=== PATIENT | male | born 1965 | race Two or more races ===

== ENCOUNTER 2020-06-17 14:31 | Emergency (ER) | payer OTHER, SELFPAY ==
[2020-06-17 15:05] VITALS: BP 129/66; PULSE 95; RESP 16; TEMP 37.3; O2SAT 97; BMI 34.8
--- NOTE | 2020-06-17 15:28 | ED.GENADULT ---
HPI - General Adult General Chief complaint: General Medical Stated complaint: sob, body aches, Source: patient Mode of arrival: ambulatory Limitations: no limitations History of Present Illness HPI narrative: Patient presents to ED for cough, chills, night sweats, and body aches since yesterday. Patient states no one at home having similar symptoms. States patient states no recent travel across state lines or the country. Onset (ago): day(s) (since yesterday) Related Data Allergies Allergy/AdvReac Type Severity Reaction Status Date / Time No Known Allergies Allergy Verified 06/17/20 15:09 [No Known Allergies*] Review of Systems Review of Systems: Patient denies any chest pain, shortness of breath, neck stiffness, photophobia, nausea, vomiting, diarrhea, abdominal pain, weakness in extremities, slurred speech, flank pain, dysuria, or hematuria Yes all other systems are reviewed and are negative [facility] Past Medical History Medical History (Updated 06/17/20 @ 15:40 by VINCE Almaguer) Arthritis Diabetes Social History Social History Alcohol intake: current Alcohol intake frequency: holidays/special occasions only Smoking Status: Current every day smoker Smoked in Last 30 Days: Yes Use of substances other than those prescribed or required for medical reasons: Yes Substance Use Type: Marijuana Advance Directives: No Advance Directives Information Provided: Yes Physical Exam Vital Signs: Vital Signs: Vital Signs Temp Pulse Resp BP Pulse Ox 06/17/20 15:05 99.1 F 95 16 129/66 97 Body Mass Index 34.8 Const: General: cooperative, healthy appearing, comfortable, no acute distress, well developed, alert and awake HENMT: Head: Yes normal to inspection Eyes: General: appearance normal, both eyes and all related structures Neck: Neck: Yes normal visual inspection, Yes full ROM, Yes no lymphadenopathy, Yes no meningeal signs, No positive Brudzinski's sign and No positive Kernig's sign Chest: Chest palpation & inspection: normal inspection of the chest and normal palpation of entire chest wall Resp: Effort & Inspection: normal respiratory effort, able to speak in complete sentences, no audible wheezes, no cough, no grunting, not labored, no nasal flaring, not tachypneic and no tripod positioning Auscultation: clear to auscultation bilaterally, no crackles, no rales, no rhonchi and no wheezes Cardio: Jugular venous distension: no JVD Heart sounds: S1 normal heart sound present and S2 normal heart sound present GI: Inspection: Yes normal to inspection, No abdominal wall ecchymosis and No Abdominal wall edema Palpation (GI): Soft to palpation, not firm, nontender, no guarding and not rigid Percussion: Yes normal to percussion Auscultation: normal bowel sounds Neuro: General: no meningeal signs Course Course Course Narrative: History physical exam indicate viral syndrome. Vital signs are stable. Patient not in distress. Patient is swabbed for COVID-19 virus and educated on self- Reevaluation(s) Reevaluation #1: Patient is stable. Time: 15:37 Medical Decision Making MDM Narrative Medical decision making narrative: Viral syndrome Discharge Plan Discharge Clinical Impression: Viral syndrome Patient Disposition: Home, Self-Care Instructions: Viral Syndrome (ED) Additional Instructions: return to the ED for any chest pain shortness of breath, coughing up blood, weakness, intractable fever, or any other concerning symptoms. recommend 14 days self-isolation if COVID test come back positive. Follow-up with your PCP Stand Alone Forms: Work/School Release Interventions: ED Discharge Assessment Last Done: 06/17/20 15:53 Discharge Date/Time: 06/17/20 15:55 Print Language: Hungarian
== END 2020-06-17 15:55 | disposition home or self-care (01) ==
PROVIDERS: Physician Assistant; Emergency Provider Emergency Medicine
DX: B34.9 Viral infection, unspecified (principal); Z20.828 Contact with and (suspected) exposure to other viral communicable diseases; E11.9 Type 2 diabetes mellitus without complications; I10 Essential (primary) hypertension; F17.200 Nicotine dependence, unspecified, uncomplicated; F10.10 Alcohol abuse, uncomplicated
CPT/HCPCS: 87635; 99283; 99284

== ENCOUNTER 2020-06-21 04:46 | Emergency (ER) | payer OTHER, SELFPAY ==
[2020-06-21 05:38] VITALS: BP 167/86; PULSE 80; RESP 16; TEMP 36.9; O2SAT 98; BMI 30.9
[2020-06-21 05:52] VITALS: BP 164/84; PULSE 84; RESP 16; O2SAT 98
--- NOTE | 2020-06-21 05:53 | PC.NURSE ---
Pt to room with c/o right sided abd pain which radiates into right lower back pain. Pt states It feels like kidney stones . Pt arrives A&OX3, skin w/d. respirations easy, n/l. Pt chg into gown and awaiting MD's eval.
--- NOTE | 2020-06-21 06:04 | CT_ITS ---
EXAMINATION: CT ABDOMEN AND PELVIS WITHOUT CONTRAST CLINICAL INFORMATION: Right-sided stone COMPARISON: 10/31/2019 TECHNIQUE: Multidetector volumetric imaging was performed from the superior aspect of the liver through the pubic symphysis. Sagittal and coronal reformatted images were obtained on the technologist's workstation. This CT examination was performed using dose optimization techniques as appropriate, variously including the following: *Automated exposure control *Adjustment of mA and/or kV according to patient size (this includes techniques or standardized protocols for targeted exams where dose is matched to indication/reason for exam; i.e. extremities or head) *Use of iterative reconstruction technique DLP: 717 mGy-cm FINDINGS: LUNG BASES: The visualized lung bases are unremarkable. Coronary artery calcifications are present. LIVER, GALLBLADDER, AND BILIARY TREE: The liver demonstrates hypoattenuation suspicious for steatosis. No biliary ductal dilatation is present. Patient is status post cholecystectomy. PANCREAS: Unremarkable. SPLEEN: Calcified granuloma noted. ADRENAL GLANDS: Unremarkable. KIDNEYS AND URETERS: There is a distal right ureteral calculus measuring up to 8 mm with mild dilation of the medial upstream ureter though no significant renal pelvic dilation. There is a 2 mm calculus in the right upper pole. No left-sided hydronephrosis or ureteral calculus. There is a left lower pole calculus measuring 5 mm. Medial right renal cyst again noted. BLADDER: Unremarkable. GASTROINTESTINAL TRACT: The small and large bowel are unremarkable. The appendix is unremarkable. No free fluid or free air is seen. ABDOMINAL WALL: Bilateral fat-containing inguinal hernias, right larger than left. LYMPH NODES: Normal. VASCULAR: Scattered atherosclerotic calcifications. PELVIC VISCERA: The prostate gland is enlarged, measuring 5.7 cm in transverse diameter. 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 CT/CT abdomen pelvis wo con IMPRESSION: 1. Distal right ureteral calculus measuring 8 mm. There is mild dilation of the immediate upstream ureter though no significant renal pelvic dilation. 2. Bilateral renal calculi as described above. 3. Coronary artery calcifications. Correlation with cardiac risk factors is recommended. 4. Enlarged prostate gland.
--- NOTE | 2020-06-21 06:06 | ED.BACK ---
HPI - Back Pain/Injury General Chief Complaint: Back Pain/Injury Stated Complaint: kidney stone? Time Seen by Provider: 06/21/20 06:04 History of Present Illness HPI Narrative: Patient is a 55-year-old man with a history of kidney stones in the past. Presents today with having right-sided abdominal and flank pain. The pain is sharp in nature. No bowel urinary incontinence. No diarrhea. Positive nausea. Pain is excruciating when it comes. It is on and off. Not associated with movement. No chest pain. No shortness of breath no diaphoresis. No coughing no upper respiratory symptoms. Patient is from home. MD elicited complaint: back pain Related Data Previous Rx's Medication Instructions Recorded ibuprofen 400 mg PO Q6H PRN #20 tab 06/21/20 ondansetron 4 mg PO TID PRN 5 Days #10 tab 06/21/20 oxycodone-acetaminophen [Percocet] 1 tab PO TID PRN #9 tab 06/21/20 tamsulosin [Flomax] 0.4 mg PO BEDTIME #7 cap 06/21/20 Allergies Allergy/AdvReac Type Severity Reaction Status Date / Time No Known Allergies Allergy Verified 06/17/20 15:09 [No Known Allergies*] Review of Systems Review of Systems: Constitutional: No Weight loss, No Fever, No Chills, No Night Sweats, No Fatigue, No Malaise ENT/Mouth: No Hearing loss, No Ear Pain, No Nasal Congestion, No Sinus Pain, No Hoarseness, No sore throat, No Rhinorrhea, No Swallowing Difficulty Eyes: No Eye Pain, No Swelling, No Redness, No Foreign Body, No Discharge, No Vision Changes Cardiovascular: No Chest Pain, No SOB, No Dyspnea on Exertion, No Orthopnea, No Edema, No Palpitations Respiratory: No Cough, No Sputum, No Wheezing, No Smoke Exposure, No Dyspnea Gastrointestinal: No Nausea, No Vomiting, No Diarrhea, No Constipation, No abdominal Pain, No Hematochezia, No Melena Genitourinary: no irregular bleeding, No Dysuria, No Urinary Frequency, No Hematuria, No Urinary Incontinence, No Urgency, No Flank Pain, No Urinary Flow Changes, No Hesitancy Musculoskeletal: No joint pain, No Myalgias, No Joint Swelling Skin: No Skin Lesions, No rash Neuro: No Weakness, No Numbness, No Paresthesias, No Loss of Consciousness, No Dizziness, No Headache Psych: No Anxiety/Panic, No Depression, No SI/HI/AH/VH, No Social Issues, Heme/Lymph: No Bruising, No Bleeding,No Lymphadenopathy Endocrine: No Polyuria, No Polydipsia, No Temperature Intolerance [facility] Past Medical History Medical History Arthritis Diabetes Social History Social History Alcohol intake: current Alcohol intake frequency: holidays/special occasions only Smoking Status: Current every day smoker Substance Use Type: Marijuana Advance Directives: No Advance Directives Information Provided: No Physical Exam Vital Signs: Vital Signs: Vital Signs Temp Pulse Resp BP Pulse Ox 06/21/20 06:35 78 16 160/78 H 98 06/21/20 05:52 84 16 164/84 H 98 06/21/20 05:38 98.4 F 80 16 167/86 H 98 Body Mass Index 30.9 Appearance: Alert. Oriented X3. No acute distress. Eyes: Pupils equal, round and reactive to light. ENT: Pharynx normal. Neck: Normal inspection. Neck supple. No lymph nodes noted. No crepitus CVS: Normal heart rate and rhythm. Pulses normal. Normal S1 and S2 Respiratory: No respiratory distress. Breath sounds normal. No Wheezing. No rales Abdomen: Soft and nontender. No rigidity. No distention. good BS x4 Skin: Skin warm and dry. Normal skin color. Normal skin turgor. Extremities: No lower extremity edema. Neurovascular intact to all extremities. No Lacerations. No Rash Neuro: Oriented X 3. No motor deficit. No sensory deficit. Moving all extermities. No slurred speech Course Reevaluation(s) Time: 06:09 Time: 06:09 MDM - Back Pain/Injury MDM Narrative Medical decision making narrative: patient pain control with medications. CT scan positive for 8 mm stone at the UVJ. Will discharge patient home currently in stable condition. Patient's urine is not infected creatinine is normal. In stable condition. Lab Data Result diagrams: 06/21/20 06:10 06/21/20 06:10 Labs: Lab Results 10/25/20 10/25/20 10/25/20 Range/Units 06:10 06:10 06:10 WBC 10.7 (4.8-10.8) X10*3/uL RBC 5.47 (4.60-5.80) X10*6/uL Hgb 15.5 (14.0-18.0) g/dl Hct 46.6 (42-52) % MCV 85.2 (80-98) fL MCH 28.3 (27.0-33.0) pg MCHC 33.3 (31.0-36.0) g/dl RDW 13.2 (11.0-16.0) % Plt Count 212 (160-400) X10*3/uL MPV 10.8 (9.4-12.4) fL Immature Gran % (Auto) 0.4 (0.0-0.4) % Neut % (Auto) 72.0 (45-73) % Lymph % (Auto) 15.4 L (20-40) % [place] % (Auto) 8.0 (2-11) % Eos % (Auto) 3.5 (0-4) % Baso % (Auto) 0.7 (0-2) % Lymph # (Auto) 1.6 (1.2-4.9) X10*3/uL [place] # (Auto) 0.9 (0.1-1.2) X10*3/uL Eos # (Auto) 0.4 (0.0-0.4) X10*3/uL Baso # (Auto) 0.1 (0.0-0.2) X10*3/uL Abs Immat Gran (auto) 0.04 H (0.00-0.03) X10*3/uL Absolute Neuts (auto) 7.7 (2.0-8.3) X10*3/uL Absolute Nucleated RBC 0.000 (0.0-0.012) X10*3/uL Nucleated RBC % (auto) 0.0 (0.0-0.2) /100WBC Sodium 132 L (135-145) mmol/L Potassium 4.4 (3.3-5.1) mmol/l Chloride 98 (96-108) mmol/L Carbon Dioxide 22 (22-29) mmol/L Anion Gap 16 (12-20) BUN 13 (9-16) mg/dL Creatinine 0.84 (0.5-1.4) mg/dL Estim Creat Clear Calc 114.4 Estimated GFR > 60 Random Glucose 321 H (60-115) mg/dL Calcium 8.6 (8.4-10.2) mg/dL Total Bilirubin 0.4 (0.0-1.0) mg/dL Direct Bilirubin < 0.2 (0.0-0.5) mg/dL AST 48 H (5-37) U/L ALT 72 H (0-40) U/L Alkaline Phosphatase 118 H (39-117) U/L Total Protein 7.5 (6.5-8.0) g/dL Albumin 3.9 (3.5-5.0) g/dL Lipase 829 H (8-78) U/L Urine Color YELLOW Urine Appearance CLEAR Urine pH 6.0 (5.0-8.0) Ur Specific [place] 1.015 (1.005-1.025) Urine Protein NEG (NEG-TRACE) MG/DL Urine Glucose (UA) >=1000 H (NEG) MG/DL Urine Ketones NEG (NEG) MG/DL Urine Blood NEG (NEG) Urine Nitrite NEG (NEG) Ur Leukocyte Esterase NEG (NEG) Urine RBC 1-4 (0) /HPF Urine WBC 1-4 (0-4) /HPF Ur Squamous Epith Cells 1+ /LPF Urine Bacteria 1+ /LPF Discharge Plan Discharge Clinical Impression: Renal colic Patient Disposition: Home, Self-Care Instructions: Renal Colic (ED) Prescriptions: New ibuprofen 400 mg tablet 400 mg PO Q6H PRN (Reason: pain) Qty: 20 RF: 0 ondansetron 4 mg tablet,disintegrating 4 mg PO TID PRN (Reason: nausea and vomiting) 5 Days Qty: 10 RF: 0 oxycodone-acetaminophen [Percocet] 5-325 mg tablet 1 tab PO TID PRN (Reason: pain) Qty: 9 RF: 0 tamsulosin [Flomax] 0.4 mg capsule 0.4 mg PO BEDTIME Qty: 7 RF: 0 Referrals: Erich Erickson MD [Physician] - 2 days
[2020-06-21 06:16] LABS: Basophils Absolute Auto 0.1 X10*3/uL (0.0-0.2); Basophils Percent Auto 0.7 % (0-2); Eosinophils Absolute Auto 0.4 X10*3/uL (0.0-0.4); Eosinophils Percent Auto 3.5 % (0-4); Hematocrit 46.6 % (42-52); Hemoglobin 15.5 g/dl (14.0-18.0); Imm Gran Abs Auto 0.04 X10*3/uL (0.00-0.03); Imm Gran Pct Auto 0.4 % (0.0-0.4); Lymphocytes Absolute Auto 1.6 X10*3/uL (1.2-4.9); Lymphocytes Percent Auto 15.4 % (20-40); MANUAL DIFF FLAG NO; Mean Corpuscular HGB Conc 33.3 g/dl (31.0-36.0); Mean Corpuscular Hemoglobin 28.3 pg (27.0-33.0); Mean Corpuscular Volume 85.2 fL (80-98); Mean Platelet Volume 10.8 fL (9.4-12.4); Monocytes Absolute Auto 0.9 X10*3/uL (0.1-1.2); Neutrophils Absolute Auto 7.7 X10*3/uL (2.0-8.3); Platelet Count 212 X10*3/uL (160-400); Red Blood Count 5.47 X10*6/uL (4.60-5.80); Red Cell Distribution Width 13.2 % (11.0-16.0); White Blood Count 10.7 X10*3/uL (4.8-10.8)
[2020-06-21] MEDS: Ketorolac Tromethamine 30 MG/ML VIAL IVPUSH (06:33)
[2020-06-21] MEDS: 0.9 % Sodium Chloride 1,000 ML 999 ML IVCONT (06:33)
[2020-06-21 06:34] LABS: Glucose Urine UA >=1000 MG/DL (NEG); Leukocyte Esterase Urine NEG (NEG); Nitrite Urine NEG (NEG); Specific Gravity - Urine 1.015 (1.005-1.025); Urine Blood NEG (NEG); Urine Ketones NEG (NEG); Urine Protein NEG (NEG-TRACE)
[2020-06-21 06:35] VITALS: BP 160/78; PULSE 78; RESP 16; O2SAT 98
[2020-06-21 06:35] LABS: Appearance Urine CLEAR; Color Urine YELLOW
[2020-06-21 06:46] LABS: Bacteria Urine 1+ /LPF; Squamous Epithelial Cell Urine 1+ /LPF
[2020-06-21 06:48] LABS: Alanine Aminotransferase 72 U/L (0-40); Albumin Level 3.9 g/dL (3.5-5.0); Alkaline Phosphatase 118 U/L (39-117); Anion Gap 16 (12-20); Aspartate Amino Transferase 48 U/L (5-37); Bilirubin Direct < 0.2 mg/dL (0.0-0.5); Bilirubin Total 0.4 mg/dL (0.0-1.0); Blood Urea Nitrogen 13 mg/dL (9-16); Calcium 8.6 mg/dL (8.4-10.2); Carbon Dioxide 22 mmol/L (22-29); Chloride 98 mmol/L (96-108); Creatinine Clr Calc Pharmacy 114.4; Estimated Glomerular Filt Rate > 60; Glucose Random 321 mg/dL (60-115); Lipase 829 U/L (8-78); Potassium 4.4 mmol/l (3.3-5.1); Sodium 132 mmol/L (135-145); Total Protein 7.5 g/dL (6.5-8.0)
== END 2020-06-21 07:34 | disposition home or self-care (01) ==
PROVIDERS: Emergency Provider Emergency Medicine Emergency Medical Services
DX: N23 Unspecified renal colic (principal); F17.200 Nicotine dependence, unspecified, uncomplicated; Z71.6 Tobacco abuse counseling; F12.90 Cannabis use, unspecified, uncomplicated; Z79.899 Other long term (current) drug therapy
CPT/HCPCS: 36415; 74176; 80048; 80076; 81001; 83690; 85025; 96361; 96374; 99284; J1885

== ENCOUNTER 2020-06-21 20:52 | Inpatient (IN) | payer OTHER, SELFPAY ==
[2020-06-21 20:54] VITALS: BP 199/95; PULSE 83; RESP 19; TEMP 37.2; O2SAT 100; BMI 34.8
[2020-06-21 21:20] VITALS: BP 176/96; PULSE 80; RESP 14; TEMP 36.5; O2SAT 98
--- NOTE | 2020-06-21 22:03 | ED.ABDPAIN ---
HPI - Abdominal Pain General Chief Complaint: Abdominal Pain Stated Complaint: FLANK PAIN Time Seen by Provider: 06/21/20 21:59 Source: patient Mode of arrival: ambulatory Limitations: no limitations History of Present Illness HPI narrative: 55 years old male with history of hypertension, diabetes presented this morning with right flank pain, patient had a CT which showed 8 mm right ureteric stone, patient was sent home, patient returned because pain under poor control. Related Data Home Medications Medication Instructions Recorded Confirmed Humalog KwikPen Insulin 15 - 20 units SUBCUT DIRECTED 06/21/20 06/21/20 gabapentin 600 mg PO TID 06/21/20 06/21/20 insulin glargine [Lantus Solostar 10 unit SUBCUT QPM 06/21/20 06/21/20 U-100 Insulin] lisinopril 10 mg PO DAILY 06/21/20 06/21/20 metformin 1,000 mg PO BID 06/21/20 06/21/20 Previous Rx's Medication Instructions Recorded ibuprofen 400 mg PO Q6H PRN #20 tab 06/21/20 Allergies Allergy/AdvReac Type Severity Reaction Status Date / Time No Known Allergies Allergy Verified 06/21/20 21:00 [No Known Allergies*] Review of Systems Review of Systems All other systems are reviewed and are negative Constitutional: Reports as per HPI and Reports no additional constitutional complaints Eyes: Reports as per HPI and Reports no additional eye complaints Reports system reviewed and no additional complaints, except as documented Cardiovascular: Reports as per HPI and Reports no additional cardiovascular complaints Respiratory: Reports as per HPI and Reports no additional respiratory complaints Gastrointestinal: Reports as per HPI and Reports no additional gastrointestinal complaints Genitourinary: Reports no additional female genitourinary complaints Musculoskeletal: Reports no additional musculoskeletal complaints Skin/Breast: Reports system reviewed and no additional complaints, except as docu Psychiatric: Reports no additional psychiatric complaints Endocrine: Reports no additional endocrine complaints Hematologic/Lymphatic: Reports no additional hematologic/lymphatic complaints Allergic/Immunologic: Reports no additional allergic/immunologic complaints Reports system reviewed and no additional complaints, except as documented and Reports Abnormal speech present Physical Exam Vital Signs: Vital Signs: Vital Signs Temp Pulse Resp BP Pulse Ox 06/21/20 22:04 81 14 174/89 H 98 06/21/20 21:20 97.7 F 80 14 176/96 H 98 06/21/20 20:54 99 F 83 19 199/95 H 100 Body Mass Index 34.8 vital signs have been reviewed as normal and appeared to be correct. Hypertensive. Heart rate normal. Respiration rate normal. Temperature normal. Oxygen saturation normal. Appearance: Alert. Oriented X3. No acute distress. Head: Normal external exam. Normocephalic. Atraumatic. No Mix signs noted. No raccoon eyes noted Eyes: PERRLA. EOMI. Conjunctiva and sclera normal. Eyelids normal. ENT: EAC normal. TM's Normal. Pharynx normal. Uvula midline. Moist mucous membranes. No trismus noted. No drooling noted. No muffled voice noted. Neck: Normal inspection. Neck supple. FROM. No adenopathy. Thyroid Normal. No meningeal signs. No neck mass noted. CVS: Normal heart rate and rhythm. Heart sound normal. No murmurs noted. Pulses normal throughout. Respiratory: No respiratory distress. Painless inspiration. Breath sounds normal. No wheezes/rales/rhonchi noted. Chest nontender. No accessory muscle usage noted or decreased air movement noted. Abdomen: Soft and mild tenderness on the right side of the abdomen, positive CVA tenderness on the right side.Bowel sounds normal in all 4 quadrants. No distention noted. No organomegaly noted. No visible injury noted. Back: No CVA tenderness. Full range of motion noted. Skin: Skin warm and dry. Normal skin color. Normal skin turgor. No rashes/lesions/lacerations noted. Extremities: No lower extremity edema. Extremities exhibit normal range of motion. Extremities nontender. Neuro: Oriented X 3. No motor deficit. No sensory deficit. Reflexes normal. Course Reevaluation(s) Reevaluation #1: 55-year-old male with hypertension and diabetes return back for right flank pain due to 8 mm right ureteric stone, patient now complained of chest pain, will get EKG and troponin. And re-evaluate. Time: 22:33 MDM - Abdominal Pain MDM Narrative Medical decision making narrative: 55-year-old male with history of hypertension / diabetes presented with right kidney stone size of 8 mm ( sizable stone not likely to pass on its own ). Patient failed outpatient pain control return for better pain control. The case discussed with Dr. Erickson from Urology who recommended to admit the patient to medical service and he will consult. While the patient been evaluated in the emergency department for the kidney stone he stated that he had some vague chest pain, EKG was checked and also troponin. Lab Data Result diagrams: 06/21/20 22:38 06/21/20 22:38 Labs: Lab Results 06/21/20 06/21/20 06/21/20 Range/Units 22:38 22:38 22:38 WBC 11.0 H (4.8-10.8) X10*3/uL RBC 5.09 (4.60-5.80) X10*6/uL Hgb 14.4 (14.0-18.0) g/dl Hct 43.4 (42-52) % MCV 85.3 (80-98) fL MCH 28.3 (27.0-33.0) pg MCHC 33.2 (31.0-36.0) g/dl RDW 13.2 (11.0-16.0) % Plt Count 206 (160-400) X10*3/uL MPV 10.9 (9.4-12.4) fL Immature Gran % (Auto) 0.5 H (0.0-0.4) % Neut % (Auto) 62.5 (45-73) % Lymph % (Auto) 22.2 (20-40) % [place] % (Auto) 9.6 (2-11) % Eos % (Auto) 4.6 H (0-4) % Baso % (Auto) 0.6 (0-2) % Lymph # (Auto) 2.4 (1.2-4.9) X10*3/uL [place] # (Auto) 1.1 (0.1-1.2) X10*3/uL Eos # (Auto) 0.5 H (0.0-0.4) X10*3/uL Baso # (Auto) 0.1 (0.0-0.2) X10*3/uL Abs Immat Gran (auto) 0.05 H (0.00-0.03) X10*3/uL Absolute Neuts (auto) 6.9 (2.0-8.3) X10*3/uL Absolute Nucleated RBC 0.000 (0.0-0.012) X10*3/uL Nucleated RBC % (auto) 0.0 (0.0-0.2) /100WBC Sodium 134 L (135-145) mmol/L Potassium 4.0 (3.3-5.1) mmol/l Chloride 102 (96-108) mmol/L Carbon Dioxide 21 L (22-29) mmol/L Anion Gap 15 (12-20) BUN 13 (9-16) mg/dL Creatinine 0.79 (0.5-1.4) mg/dL Estim Creat Clear Calc 128.8 Estimated GFR > 60 Random Glucose 265 H (60-115) mg/dL Calcium 8.3 L (8.4-10.2) mg/dL Total Bilirubin 0.3 (0.0-1.0) mg/dL Direct Bilirubin < 0.2 (0.0-0.5) mg/dL AST 33 (5-37) U/L ALT 60 H (0-40) U/L Alkaline Phosphatase 113 (39-117) U/L Troponin I High Sens 6.6 (<3.5-35.0) ng/L Total Protein 6.9 (6.5-8.0) g/dL Albumin 3.7 (3.5-5.0) g/dL Lipase 1274 H (8-78) U/L Imaging Data CT scan - abdomen: Radiologist's impression: . Distal right ureteral calculus measuring 8 mm. There is mild dilation of the immediate upstream ureter though no significant renal pelvic dilation. 2. Bilateral renal calculi as described above. 3. Coronary artery calcifications. Correlation with cardiac risk factors is recommended. 4. Enlarged prostate gland. Discharge Plan Discharge Clinical Impression: Renal colic, Calculus of distal right ureter, Atypical chest pain Patient Disposition: Admitted As Inpatient [facility] Past Medical History Medical History Arthritis Diabetes Social History Social History Alcohol intake: current Alcohol intake frequency: holidays/special occasions only Smoking Status: Current every day smoker Use of substances other than those prescribed or required for medical reasons: No Substance Use Type: Marijuana Advance Directives: No Advance Directives Information Provided: Yes
[2020-06-21 22:04] VITALS: BP 174/89; PULSE 81; RESP 14; O2SAT 98
--- NOTE | 2020-06-21 22:30 | ECG_ITS ---
Test Reason : CHEST PAIN Blood Pressure : / mmHG Vent. Rate : 076 BPM Atrial Rate : 076 BPM P-R Int : 180 ms QRS Dur : 154 ms QT Int : 422 ms P-R-T Axes : 025 -57 018 degrees QTc Int : 474 ms Normal sinus rhythm Right bundle branch block Left anterior fascicular block Bifascicular block Voltage criteria for left ventricular hypertrophy Abnormal ECG No significant changes seen Referred By: Barbara Geller Electronically Signed By:MODESTA CORREA MD
[2020-06-21 22:43] LABS: MANUAL DIFF FLAG NO
[2020-06-21 22:44] LABS: Basophils Absolute Auto 0.1 X10*3/uL (0.0-0.2); Basophils Percent Auto 0.6 % (0-2); Eosinophils Absolute Auto 0.5 X10*3/uL (0.0-0.4); Eosinophils Percent Auto 4.6 % (0-4); Hematocrit 43.4 % (42-52); Hemoglobin 14.4 g/dl (14.0-18.0); Imm Gran Abs Auto 0.05 X10*3/uL (0.00-0.03); Imm Gran Pct Auto 0.5 % (0.0-0.4); Lymphocytes Absolute Auto 2.4 X10*3/uL (1.2-4.9); Lymphocytes Percent Auto 22.2 % (20-40); Mean Corpuscular HGB Conc 33.2 g/dl (31.0-36.0); Mean Corpuscular Hemoglobin 28.3 pg (27.0-33.0); Mean Corpuscular Volume 85.3 fL (80-98); Mean Platelet Volume 10.9 fL (9.4-12.4); Monocytes Absolute Auto 1.1 X10*3/uL (0.1-1.2); Monocytes Percent Auto 9.6 % (2-11); Neutrophils Absolute Auto 6.9 X10*3/uL (2.0-8.3); Neutrophils Percent Auto 62.5 % (45-73); Platelet Count 206 X10*3/uL (160-400); Red Blood Count 5.09 X10*6/uL (4.60-5.80); Red Cell Distribution Width 13.2 % (11.0-16.0)
[2020-06-21] MEDS: 0.9 % Sodium Chloride 500 ML 1000 ML IV (22:56)
[2020-06-21] MEDS: Morphine Sulfate 2 MG/ML CARTRIDGE 1 MG IVPUSH (22:59)
[2020-06-21] MEDS: Ketorolac Tromethamine 15 MG/ML VIAL IV (22:59)
--- NOTE | 2020-06-21 23:03 | PC.NURSE ---
patient a&ox3, pt c/o chest pain to hospitalist, iv inserted, labs drawn, ekg performed, patient placed on bedside monitoring manager- pt nsr 70s, will continue to monitor.
--- NOTE | 2020-06-21 23:04 | PC.NURSE ---
pt medicated for pain per order
[2020-06-21 23:14] LABS: Alanine Aminotransferase 60 U/L (0-40); Albumin Level 3.7 g/dL (3.5-5.0); Alkaline Phosphatase 113 U/L (39-117); Anion Gap 15 (12-20); Aspartate Amino Transferase 33 U/L (5-37); Bilirubin Direct < 0.2 mg/dL (0.0-0.5); Bilirubin Total 0.3 mg/dL (0.0-1.0); Blood Urea Nitrogen 13 mg/dL (9-16); Calcium 8.3 mg/dL (8.4-10.2); Carbon Dioxide 21 mmol/L (22-29); Chloride 102 mmol/L (96-108); Creatinine Clr Calc Pharmacy 128.8; Estimated Glomerular Filt Rate > 60; Glucose Random 265 mg/dL (60-115); Sodium 134 mmol/L (135-145); Total Protein 6.9 g/dL (6.5-8.0)
[2020-06-21 23:28] LABS: Troponin-I High Sensitivity 6.6 ng/L (<3.5-35.0)
[2020-06-21 23:32] LABS: Lipase 1274 U/L (8-78)
[2020-06-22] VITALS (21 sets, daily range): BP systolic 107–188; BP diastolic 51–90; PULSE 64–88; RESP 14–19; TEMP 36–36.8; O2SAT 69–99; BMI 34.8
--- NOTE | 2020-06-22 | US_ITS ---
EXAMINATION: US ABDOMEN LIMITED CLINICAL INFORMATION: Pancreatitis. COMPARISON: CT abdomen and pelvis noncontrast 06/21/2020 TECHNIQUE: Real-time imaging of the right upper quadrant abdominal viscera. FINDINGS: PANCREAS: The pancreas parenchymal echogenicity is coarse and decreased which may suggest pancreatic edema. The overall size is normal and there is no visible pancreatic ductal distention or retroperitoneal effusion. There is no hyperemia on color Doppler. The splenic vein is patent and flow is towards the liver. LIVER: The liver is smooth in contour and upper limits of normal size measuring 18.5 cm in length. There is increased hepatic parenchymal echogenicity consistent with hepatic steatosis. There is no focal hepatic parenchymal lesion or intrahepatic ductal dilatation. GALLBLADDER: Prior cholecystectomy. COMMON BILE DUCT: Normal in caliber measuring 0.6 cm in diameter. No visible ductal calculus. RIGHT KIDNEY: Normal. No hydronephrosis. No renal calculi or focal parenchymal lesions. The kidney measures 12.6 cm in maximum dimension. FREE FLUID: No ascites right upper quadrant. US/US abdomen limited IMPRESSION: 1. Coarse hypoechoic pancreas which may suggest parenchymal edema. Overall size normal. 2. No pancreatic ductal distention or retroperitoneal effusion. 3. Prior cholecystectomy. No ductal dilatation. 4. Hepatic steatosis.
--- NOTE | 2020-06-22 02:10 | PC.NURSE ---
ADMITTED WITH RIGHT RENAL CALCULUS.MADE NPO WITH URO CONSULT TO SEE.IV FLUIDS STARTED ORDERED.MED WITH MS 4MG IV FOR RIGHT FLANK PAIN WITH EFFECT.NO N/V.ABD ULTRASOUND AND LABS FOR AM.ORIENTED TO UNIT AND PLAN OF CARE.
[2020-06-22] MEDS: 0.9 % Sodium Chloride Flush 3 ML SYRINGE IVFLUSH ×3 (02:28→14:56)
[2020-06-22] MEDS: 0.9 % Sodium Chloride 1,000 ML 100 ML IVCONT (02:28)
[2020-06-22] MEDS: Morphine Sulfate 4 MG/ML CARTRIDGE IVPUSH ×3 (02:30→17:44)
--- NOTE | 2020-06-22 04:16 | P.HPIM_ITS ---
History of Present Illness Date of Service: 06/21/20 Chief Complaint: abdominal pain [place]-speaking. History is obtained with the help of an order processing clerk. this is a 55-year-old male with past medical history of kidney stones, diabetes, coronary artery disease, hypertension who presents to the hospital with complaints of epigastric as well as right upper quadrant and and right flank pain.. Patient reports that his symptoms started couple days prior to presentation , pain is 10/10, radiating from the front to the back, no fever no chills. Patient has a previous history of kidney stone with similar presentation. Patient reports that he was in the ED earlier in the day with this pain, CT of the abdomen showed an 8 mm stone at the UVJ, patient's pain was controlled and he was sent home. He reports that his pain continued well as home unbearable and that is why he returned. He denies any urinary symptoms including no frequency urgency or dysuria. No nausea or vomiting. patient is also complaining of bilateral chest pain that is pressure, nonradiating, 7/10, worse with deep inspiration, occurs at rest, lasts about 30 minutes. This pain is intermittent. shortness of breath, headache or change in vision. No week tingling. No other complaints. Review of system negative otherwise. on arrival to the ED patient hemodynamically stable with no significant abnormal vitals labs are significant for WBC count of 11,000, And lipase of 1274 CT scan done earlier in the day and his initial presentation showed positive for 8 mm stone at the UVJ Review of Systems Review of Systems: Yes all other systems are reviewed and are negative [facility] Medical History (Updated 06/22/20 @ 04:54 by Susan Cast MD) Arthritis Diabetes Hypertension Surgical History Hx of heart artery stent Social History Household Members: Spouse and Children Housing: House Do you presently have visiting nurse or other home services: No Alcohol intake: current Alcohol intake frequency: holidays/special occasions only Smoking Status: Current every day smoker Tobacco Type: Cigarette Smoked in Last 30 Days: Yes Patient Interested in Nicotine Replacement: Yes Use of substances other than those prescribed or required for medical reasons: No Substance Use Type: Marijuana Have you been hit, kicked, punched, or otherwise hurt by someone within the past year? If so, by whom?: No Do you feel safe in your current relationship?: Yes Is there a partner from a previous relationship who is making you feel unsafe now?: No Are you made to feel afraid or neglected: No Advance Directives: No Advance Directives Information Provided: Yes Do you have thoughts of harming others: None Recently lost weight without trying: No Meds Allergies Allergy/AdvReac Type Severity Reaction Status Date / Time No Known Allergies Allergy Verified 06/21/20 21:00 [No Known Allergies*] Home Medications Medication Instructions Recorded Confirmed Type Humalog KwikPen Insulin 15 - 20 units SUBCUT DIRECTED 06/21/20 06/21/20 History gabapentin 600 mg PO TID 06/21/20 06/21/20 History insulin glargine [Lantus Solostar 10 unit SUBCUT QPM 06/21/20 06/21/20 History U-100 Insulin] lisinopril 10 mg PO DAILY 06/21/20 06/21/20 History metformin 1,000 mg PO BID 06/21/20 06/21/20 History Physical Exam Vital Signs and Narrative: Vital Signs: Last Vital Signs Temp 97.0 F 06/22/20 03:18 Pulse 73 06/22/20 03:18 Resp 19 06/22/20 03:18 BP 178/80 H 06/22/20 03:18 Pulse Ox 99 06/22/20 03:18 Body Mass Index 34.8 Const: General: cooperative and no acute distress Orientation/consciousness: patient oriented x3 Eyes: General: appearance normal, both eyes and all related structures Pupils: Equal, round and reactive pupils present Resp: Effort & Inspection: normal respiratory effort and able to speak in complete sentences Auscultation: clear to auscultation bilaterally Cardio: Rate: regular rate Rhythm: regular rhythm GI: Palpation (GI): Soft to palpation Auscultation: normal bowel sounds Skin: General skin exam: no rashes or lesions noted Neuro: General: patient oriented x3 Cranial nerves: Yes Equal, round and reactive pupils present Cognition (Neuro): normal cognition Extrem: General: Yes normal to inspection and Yes no pedal edema Results Labs Labs: Laboratory Tests 06/21/20 06/21/20 06/21/20 22:38 22:38 22:38 WBC 11.0 H RBC 5.09 Hgb 14.4 Hct 43.4 MCV 85.3 MCH 28.3 MCHC 33.2 RDW 13.2 Plt Count 206 MPV 10.9 Immature Gran % (Auto) 0.5 H Neut % (Auto) 62.5 Lymph % (Auto) 22.2 Morris % (Auto) 9.6 Eos % (Auto) 4.6 H Baso % (Auto) 0.6 Lymph # (Auto) 2.4 Morris # (Auto) 1.1 Eos # (Auto) 0.5 H Baso # (Auto) 0.1 Abs Immat Gran (auto) 0.05 H Absolute Neuts (auto) 6.9 Absolute Nucleated RBC 0.000 Nucleated RBC % (auto) 0.0 Sodium 134 L Potassium 4.0 Chloride 102 Carbon Dioxide 21 L Anion Gap 15 BUN 13 Creatinine 0.79 Estim Creat Clear Calc 128.8 Estimated GFR > 60 Random Glucose 265 H Calcium 8.3 L Total Bilirubin 0.3 Direct Bilirubin < 0.2 AST 33 ALT 60 H Alkaline Phosphatase 113 Troponin I High Sens 6.6 Total Protein 6.9 Albumin 3.7 Lipase 1274 H Assessment and Plan (1) Pancreatitis: Status: Acute (2) Calculus of distal right ureter: Status: Acute (3) Atypical chest pain: Status: Acute (4) Hypertension: Status: Acute (5) Diabetes: Status: Acute this is a 55-year-old male with past medical history as mentioned above who presents to the hospital with complaints of abdominal pain and right flank pain. CT of the abdomen which was done earlier on ED presentation showed 8 mm of renal calculi # Abdominal pain - pancreatitis versus renal calculi - patient has epigastric pain radiating to the back as well as renal calculi evidence on CT scan. - I was unable to locate the CT done in the ED on the earlier admission but per ED physician's note CT scan is positive for an 8 mm calculi at the UVJ plan: - IV fluids, NPO - urology consult for the renal calculi # pancreatitis - typical abdominal pain with elevation of lipase - patient denies any alcohol abuse plan: - Will obtain right upper quadrant abdominal ultrasound - NPO, aggressive IV fluids - will obtain triglyceride level # renal calculi - 8 mm renal calculi evident on CT done on earlier presentation - urology consulted # Atypical chest pain - high sensitivity troponin negative, EKG shows no evidence of ACS Plan: - Will monitor DVT prophylaxis: Lovenox
[2020-06-22 06:09] LABS: MANUAL DIFF FLAG NO
[2020-06-22 06:13] LABS: Basophils Absolute Auto 0.1 X10*3/uL (0.0-0.2); Basophils Percent Auto 0.8 % (0-2); Eosinophils Absolute Auto 0.5 X10*3/uL (0.0-0.4); Eosinophils Percent Auto 5.6 % (0-4); Hematocrit 41.8 % (42-52); Hemoglobin 13.6 g/dl (14.0-18.0); Imm Gran Abs Auto 0.03 X10*3/uL (0.00-0.03); Imm Gran Pct Auto 0.3 % (0.0-0.4); Lymphocytes Absolute Auto 2.5 X10*3/uL (1.2-4.9); Lymphocytes Percent Auto 27.2 % (20-40); Mean Corpuscular HGB Conc 32.5 g/dl (31.0-36.0); Mean Corpuscular Hemoglobin 28.2 pg (27.0-33.0); Mean Corpuscular Volume 86.5 fL (80-98); Mean Platelet Volume 11.2 fL (9.4-12.4); Monocytes Absolute Auto 0.8 X10*3/uL (0.1-1.2); Monocytes Percent Auto 9.1 % (2-11); Neutrophils Absolute Auto 5.3 X10*3/uL (2.0-8.3); Platelet Count 204 X10*3/uL (160-400); Red Blood Count 4.83 X10*6/uL (4.60-5.80); Red Cell Distribution Width 13.4 % (11.0-16.0); White Blood Count 9.3 X10*3/uL (4.8-10.8)
[2020-06-22 06:33] LABS: Triglycerides 193 mg/dL
[2020-06-22 06:41] LABS: Anion Gap 13 (12-20); Blood Urea Nitrogen 10 mg/dL (9-16); Carbon Dioxide 23 mmol/L (22-29); Chloride 102 mmol/L (96-108); Creatinine Clr Calc Pharmacy 132.2; Estimated Glomerular Filt Rate > 60; Glucose Random 346 mg/dL (60-115); Sodium 134 mmol/L (135-145)
[2020-06-22 07:03] LABS: Glucose, Whole Blood 277 mg/dL (60-115)
--- NOTE | 2020-06-22 09:02 | MHC.CM.PN ---
pt lives alone, he reports being independent in his care. he works a job. pt denies the need for vna . pt does have family that live in the area and can help him if he needs it. this will include a ride home at dc. dc plan is home no svcs.
--- NOTE | 2020-06-22 10:09 | HO.ANESPROP2 ---
HPI - Anesthesia Eval Consult details Narrative: 55yo male patient. Here for cysto,retro,ureteroscopy,laser lithotripsy,stent Right ureter PMFSH Past Medical History Medical History (Updated 06/22/20 @ 11:01 by Ludivina Prado) Alcohol abuse Arthritis CAD (coronary artery disease) Diabetes Hypertension Increased BMI Family History Family history of problems with anesthesia: No Surgical History Surgical History (Updated 06/22/20 @ 10:26 by Ludivina Prado) Hx of heart artery stent Status post laparoscopic cholecystectomy History of Problems with Anesthesia: No Social History Social History (Updated 06/22/20 @ 10:37 by Ludivina Prado) Household Members: Spouse and Children Housing: House Do you presently have visiting nurse or other home services: No Alcohol intake: current Alcohol intake frequency: holidays/special occasions only Smoking Status: Current every day smoker Tobacco Type: Cigarette Smoked in Last 30 Days: Yes Patient Interested in Nicotine Replacement: Yes Use of substances other than those prescribed or required for medical reasons: No Substance Use Type: Marijuana Substance Use Type Other:: Patient denies ever using marijuana Currently Displaying Signs/Symptoms of Drug Intoxication Withdrawal: No Have you been hit, kicked, punched, or otherwise hurt by someone within the past year? If so, by whom?: No Do you feel safe in your current relationship?: Yes Is there a partner from a previous relationship who is making you feel unsafe now?: No Are you made to feel afraid or neglected: No Advance Directives: No Advance Directives Information Provided: Yes Do you have thoughts of harming others: None Recently lost weight without trying: No service: No Current occupational status: employed Meds Allergies Allergy/AdvReac Type Severity Reaction Status Date / Time No Known Allergies Allergy Verified 06/21/20 21:00 [No Known Allergies*] Home Medications Medication Instructions Recorded Confirmed Type Humalog KwikPen Insulin 15 - 20 units SUBCUT DIRECTED 06/21/20 06/21/20 History gabapentin 600 mg PO TID 06/21/20 06/21/20 History insulin glargine [Lantus Solostar 10 unit SUBCUT QPM 06/21/20 06/21/20 History U-100 Insulin] lisinopril 10 mg PO DAILY 06/21/20 06/21/20 History metformin 1,000 mg PO BID 06/21/20 06/21/20 History Exam Exam Date and Time: June 22, 2020 1009 Height,Weight and Vital Signs: Height 5 ft 9 in Weight 107.048 kg Last Vital Signs Temp 96.9 F 06/22/20 10:08 Pulse 72 06/22/20 10:08 Resp 16 06/22/20 10:08 BP 170/84 H 06/22/20 10:08 Pulse Ox 99 06/22/20 10:08 Pertinent Lab Results Pertinent Lab Results: Laboratory Tests 06/21/20 06/21/20 06/21/20 22:38 22:38 22:38 WBC 11.0 H RBC 5.09 Hgb 14.4 Hct 43.4 MCV 85.3 MCH 28.3 MCHC 33.2 RDW 13.2 Plt Count 206 MPV 10.9 Immature Gran % (Auto) 0.5 H Neut % (Auto) 62.5 Lymph % (Auto) 22.2 [place] % (Auto) 9.6 Eos % (Auto) 4.6 H Baso % (Auto) 0.6 Lymph # (Auto) 2.4 [place] # (Auto) 1.1 Eos # (Auto) 0.5 H Baso # (Auto) 0.1 Abs Immat Gran (auto) 0.05 H Absolute Neuts (auto) 6.9 Absolute Nucleated RBC 0.000 Nucleated RBC % (auto) 0.0 Sodium 134 L Potassium 4.0 Chloride 102 Carbon Dioxide 21 L Anion Gap 15 BUN 13 Creatinine 0.79 Estim Creat Clear Calc 128.8 Estimated GFR > 60 POC Glucose Random Glucose 265 H Calcium 8.3 L Total Bilirubin 0.3 Direct Bilirubin < 0.2 AST 33 ALT 60 H Alkaline Phosphatase 113 Troponin I High Sens 6.6 Total Protein 6.9 Albumin 3.7 Triglycerides Lipase 1274 H 06/22/20 06/22/20 06/22/20 05:26 05:26 05:26 WBC 9.3 RBC 4.83 Hgb 13.6 L Hct 41.8 L MCV 86.5 MCH 28.2 MCHC 32.5 RDW 13.4 Plt Count 204 MPV 11.2 Immature Gran % (Auto) 0.3 Neut % (Auto) 57.0 Lymph % (Auto) 27.2 [place] % (Auto) 9.1 Eos % (Auto) 5.6 H Baso % (Auto) 0.8 Lymph # (Auto) 2.5 [place] # (Auto) 0.8 Eos # (Auto) 0.5 H Baso # (Auto) 0.1 Abs Immat Gran (auto) 0.03 Absolute Neuts (auto) 5.3 Absolute Nucleated RBC 0.000 Nucleated RBC % (auto) 0.0 Sodium 134 L Potassium 4.0 Chloride 102 Carbon Dioxide 23 Anion Gap 13 BUN 10 Creatinine 0.77 Estim Creat Clear Calc 132.2 Estimated GFR > 60 POC Glucose Random Glucose 346 H Calcium 8.0 L Total Bilirubin Direct Bilirubin AST ALT Alkaline Phosphatase Troponin I High Sens Total Protein Albumin Triglycerides 193 Lipase 06/22/20 07:00 WBC RBC Hgb Hct MCV MCH MCHC RDW Plt Count MPV Immature Gran % (Auto) Neut % (Auto) Lymph % (Auto) [place] % (Auto) Eos % (Auto) Baso % (Auto) Lymph # (Auto) [place] # (Auto) Eos # (Auto) Baso # (Auto) Abs Immat Gran (auto) Absolute Neuts (auto) Absolute Nucleated RBC Nucleated RBC % (auto) Sodium Potassium Chloride Carbon Dioxide Anion Gap BUN Creatinine Estim Creat Clear Calc Estimated GFR POC Glucose 277 H Random Glucose Calcium Total Bilirubin Direct Bilirubin AST ALT Alkaline Phosphatase Troponin I High Sens Total Protein Albumin Triglycerides Lipase POC 224 Airway Mallampati Class: II TM Dist: >3cm Neck ROM: Full Denture: Upper and Lower Heart: RRR Lungs: CTAB Assessment and Plan Assessment Anesthesia Assessment: Anesthesia Plan Discussed and Chart Reviewed Final Anesthetic Review NPO: Yes ASA Class: III Final Preanesthetic Review: No Changes in Pt Med Stat, Meds/Allgs Chart Reviewed, Consent Obtained/Reviewed and Anes Risks/Benef Reviewed Patient Risk: Intermediate Procedure Risk: Low Anesthetic Plan Anesthetic Plan: GA Disposition: Standard PACU
[2020-06-22] MEDS: Lactated Ringers 1,000 ML 100 ML IVCONT (10:17)
[2020-06-22] MEDS: levoFLOXacin/D5W 500 MG/100 ML PIGGYBACK 100 MG IV (10:17)
--- NOTE | 2020-06-22 10:26 | PC.NURSE ---
translator/interpreter by bedside with anesthesia
--- NOTE | 2020-06-22 10:57 | MHC.SHP ---
Pre-Procedural Eval Section A The patient is an INPATIENT: Yes Changes since office visit: No Cold of Flu in the past 2 weeks, No New Medical Problems, No Changes in Medication and No Patient answered all questions The History & Physical has been completed within 30 days and I have reviewed it.: Yes Section B Chief Complaint: renal calculus Allergies: Allergies Allergy/AdvReac Type Severity Reaction Status Date / Time No Known Allergies Allergy Verified 06/21/20 21:00 [No Known Allergies*] Plan Patient has been examined and remains a candidate for the planned procedure
--- NOTE | 2020-06-22 11:01 | FL_ITS ---
EXAMINATION: XR FLUOROSCOPY WITH IMAGES CLINICAL INFORMATION: Renal calculi COMPARISON: CT abdomen and pelvis noncontrast 06/21/2020 TECHNIQUE: Fluoroscopy performed by Dr. Erich Erickson. Fluoroscopy time: 0.45 minutes Total dose: 11.54 mGy Images: 2 FINDINGS: The fluoroscopic spot images demonstrate right ureteral stent in position. There is some contrast in the right renal collecting system upper pole calyx and interpolar region. FL/FL guidance in OR IMPRESSION: Fluoroscopy for urologic procedure.
[2020-06-22 11:03] LABS: Glucose, Whole Blood 224 mg/dL (60-115)
--- NOTE | 2020-06-22 12:25 | PM.OP ---
Brief Operative Note Date of procedure: 06/22/20 Pre-op diagnosis: right distal ureteric stone Post-op diagnosis: same Procedure: right retrograde, ureteroscopy, laser lithotripsy, stent placment Implants: right stent placement Surgeon: Erich Erickson MD Anesthesia: GLMA Estimated blood loss (mL): 0 Pathology: other (stones) Condition: stable Disposition: same day
--- NOTE | 2020-06-22 12:31 | P.OP_ITS ---
Operative Note Operative Note Narrative: PreOperative Diagnosis: right distal ureteric stone 8mm Post Operative Diagnosis:same Procedure: - 1. right cystoscopy, retrograde - 2. dilatation of ureteric orifice under fluoroscopy - 3. ureteroscopy, laser lithotripsy, stone basketing - 4. stent placement Surgeon: Dr rEich Erickson Anesthesia: General Indications for procedure: 55 yr male with distal stone through ER with non controlled pain Procedure: After informed consent was verified patient was brought to the operating placed in supine position. Anesthesia was administered per protocol. Patient was placed in modified dorsal lithotomy position and prepped and draped in a sterile fashion. Safety pause time-out and side of surgery confirmed. Antibiotics confirmed. Twenty-one Stateless cystoscope placed per urethra. No abnormality noted in the anterior or posterior urethra. Both ureteric orifices position. Bladder observed to be normal. Ureteric catheter placed into right ureteric opening. Retrograde examination shows filling defect in the distal portion of the ureter. Sensor guidewire susan renetta. Ureteric catheter and cystoscope removed. Keegan dilator placed under fluoroscopy to dilate ureteric orifice opening. Semi rigid ureteral scope placed alongside the wire. Stone encountered in distal portion of ureter. Approximately 8 mm. 365 mm laser fiber used to break stone. The stone fragments removed using basket. This was done without difficulty. semi rigid ureteral scope was removed. The cystoscope was back loaded and a 6 Stateless by 26 cm stent was placed without difficulty and good coil seen in the renal pelvis and in the bladder. Bladder was emptied in stone fragments removed. These will be sent for analysis. He tolerated procedure well was extubated in operating transferred in stable condition to the recovery area. Specimens renal stone Drains 6 Stateless by 26 cm stent right side this is the end of the dictation by Dr. Erich Erickson
[2020-06-22] MEDS: oxyCODONE HCl Immed Release 5 MG TABLET PO ×2 (13:30→21:06)
[2020-06-22] MEDS: Ketorolac Tromethamine 15 MG/ML VIAL IV (14:54)
--- NOTE | 2020-06-22 15:44 | PM.UROPN ---
Subjective Subjective Interval history: consult night dictated twice due to areas in computer program was not in chart Stone has been completed He can be discharged today and follow up next week Recommend discharge with Pyridium, tramadol, alpha-bryan Physical Exam Vital Signs: Vital Signs: Vital Signs Temp Pulse Resp BP Pulse Ox 06/22/20 14:45 97.2 F 69 18 150/85 H 69 L 06/22/20 13:45 66 16 140/65 H 98 06/22/20 13:35 71 18 131/60 98 06/22/20 13:20 97.8 F 74 16 133/59 L 99 06/22/20 13:05 75 18 140/73 H 97 06/22/20 12:50 72 16 107/51 L 94 06/22/20 12:45 71 14 117/61 95 06/22/20 12:40 74 14 117/64 96 06/22/20 12:35 97.8 F 76 16 125/64 95 06/22/20 11:24 96 06/22/20 10:08 96.9 F 72 16 170/84 H 99 06/22/20 08:00 97.5 F 75 18 145/72 H 97 06/22/20 06:29 18 06/22/20 03:18 97.0 F 73 19 178/80 H 99 06/22/20 02:30 18 06/22/20 02:02 97.6 F 75 19 166/76 H 99 06/22/20 00:57 81 15 188/90 H 97 06/21/20 22:04 81 14 174/89 H 98 06/21/20 21:20 97.7 F 80 14 176/96 H 98 06/21/20 20:54 99 F 83 19 199/95 H 100 Body Mass Index 34.8 Const: General: cooperative, healthy appearing, comfortable and no acute distress Nutritional Appearance: average body habitus Orientation/consciousness: oriented to person, oriented to place and oriented to time Eyes: General: appearance normal, both eyes and all related structures Chest: Chest palpation & inspection: normal inspection of the chest Resp: Effort & Inspection: normal respiratory effort Cardio: Rate: regular rate GI: Inspection: Yes normal to inspection Skin: Hair: normal Neuro: General: oriented to person, oriented to place and oriented to time Extrem: General: Yes normal to inspection Progress Note: A&P Assessment and plan (1) Calculus of distal right ureter: Problem details: right retrograde, ureteroscopy, laser lithotripsy, stent placement - completed Status: Acute Assessment and Plan: f/u next week for stent removal Fall Risk Details Current Medications: Current Medications Generic Name Dose Route Start Last Admin Trade Name Freq PRN Reason Stop Dose Admin Acetaminophen 650 mg 06/22/20 01:06 Acetaminophen 325 Mg Tablet PO Q6H PRN Pain, Mild (Pain Scale 1-3) Docusate Sodium 100 mg 06/22/20 01:06 Docusate Sodium 100 Mg Capsule PO DAILY PRN Constipation Enoxaparin Sodium 40 mg 06/22/20 09:00 06/22/20 11:13 Enoxaparin Sodium 40 Mg/0.4 Ml Syringe SUBCUT Not Given Q24H [facility] Fentanyl 25 mcg 06/22/20 11:23 Fentanyl Citrate/Pf 100 Mcg/2 Ml Vial IVPUSH Q5M PRN Pain, Moderate (Pain Scale 4-6 Fentanyl 50 mcg 06/22/20 11:23 Fentanyl Citrate/Pf 100 Mcg/2 Ml Vial IVPUSH Q5M PRN Pain, Severe (Pain Scale 7-10) Sodium Chloride 1,000 mls @ 150 mls/hr 06/22/20 01:06 06/22/20 14:56 Ns IVCONT Infused .Q6H40M SHELLY Infusion Lactated Ringer's 1,000 mls @ 100 mls/hr 06/22/20 10:15 06/22/20 10:17 Lr IVCONT 100 mls/hr .Q10H SHELLY Administration Insulin Human Lispro 0 unit 06/22/20 07:30 06/22/20 14:39 Insulin Lispro 100 Unit/Ml 3 Ml Vial SUBCUT Not Given QIDACHS [facility] Protocol Ketorolac Tromethamine 15 mg 06/21/20 22:15 06/22/20 14:54 Ketorolac Tromethamine 15 Mg/Ml Vial IV 15 mg Q6H SHELLY Administration Morphine Sulfate 4 mg 06/22/20 01:06 06/22/20 06:29 Morphine Sulfate 4 Mg/Ml Cartridge IVPUSH 4 mg Q4H PRN Administration Pain, Severe (Pain Scale 7-10) Ondansetron HCl 4 mg 06/22/20 01:06 Ondansetron Hcl 4 Mg/2 Ml Vial IVPUSH Q8H PRN Nausea and Vomiting Oxycodone HCl 5 mg 06/22/20 01:06 Oxycodone Hcl Immed Release 5 Mg Tablet PO Q6H PRN Pain, Severe (Pain Scale 7-10) Oxycodone HCl 5 mg 06/22/20 12:28 Oxycodone Hcl Immed Release 5 Mg Tablet PO Q4H PRN [facility] Consult 1 each 06/21/20 22:06 Consult Rx Perform Med Rec MISCELLANE ONCE PRN Consult order Sodium Chloride 3 ml 06/22/20 01:06 06/22/20 14:56 0.9 % Sodium Chloride Flush 3 Ml Syringe IVFLUSH 3 ml QSHIFT SHELLY Administration Time Spent With Patient Time: Total time spent is greater than 50% in coordination of care (as documented) at patient's floor/unit and/or counseling patient: Time with patient: less than 15 minutes
--- NOTE | 2020-06-22 16:03 | P.PNIM_ITS ---
Subjective Subjective Date of Service: 06/22/20 Interval History: Patient seen and examined at bedside patient was reporting right flank pain Cardiovascular Cardiovascular: Denies dyspnea Respiratory Respiratory: Denies dyspnea Gastrointestinal Gastrointestinal: Reports abdominal pain and Reports vomiting Physical Exam Vital Signs: Vital Signs: Vital Signs Temp Pulse Resp BP Pulse Ox 06/22/20 15:57 96.8 F 69 16 160/87 H 99 06/22/20 14:45 97.2 F 69 18 150/85 H 69 L 06/22/20 13:45 66 16 140/65 H 98 06/22/20 13:35 71 18 131/60 98 06/22/20 13:20 97.8 F 74 16 133/59 L 99 06/22/20 13:05 75 18 140/73 H 97 06/22/20 12:50 72 16 107/51 L 94 06/22/20 12:45 71 14 117/61 95 06/22/20 12:40 74 14 117/64 96 06/22/20 12:35 97.8 F 76 16 125/64 95 06/22/20 11:24 96 06/22/20 10:08 96.9 F 72 16 170/84 H 99 06/22/20 08:00 97.5 F 75 18 145/72 H 97 06/22/20 06:29 18 06/22/20 03:18 97.0 F 73 19 178/80 H 99 06/22/20 02:30 18 06/22/20 02:02 97.6 F 75 19 166/76 H 99 06/22/20 00:57 81 15 188/90 H 97 06/21/20 22:04 81 14 174/89 H 98 06/21/20 21:20 97.7 F 80 14 176/96 H 98 06/21/20 20:54 99 F 83 19 199/95 H 100 Body Mass Index 34.8 Const: General: cooperative and no acute distress Orientation/consciousness: patient oriented x3 Eyes: General: appearance normal, both eyes and all related structures Pupils: Equal, round and reactive pupils present Resp: Effort & Inspection: normal respiratory effort and able to speak in complete sentences Auscultation: clear to auscultation bilaterally Cardio: Rate: regular rate Rhythm: regular rhythm GI: Palpation (GI): Soft to palpation and Other GI palpation findings present ( right flank tenderness) Auscultation: normal bowel sounds Skin: General skin exam: no rashes or lesions noted Neuro: General: patient oriented x3 Cranial nerves: Yes Equal, round and reactive pupils present Cognition (Neuro): normal cognition Extrem: General: Yes normal to inspection and Yes no pedal edema Objective Data Current Medications Generic Name Dose Route Start Last Admin Trade Name Freq PRN Reason Stop Dose Admin Acetaminophen 650 mg 06/22/20 01:06 Acetaminophen 325 Mg Tablet PO Q6H PRN Pain, Mild (Pain Scale 1-3) Docusate Sodium 100 mg 06/22/20 01:06 Docusate Sodium 100 Mg Capsule PO DAILY PRN Constipation Enoxaparin Sodium 40 mg 06/22/20 09:00 06/22/20 11:13 Enoxaparin Sodium 40 Mg/0.4 Ml Syringe SUBCUT Not Given Q24H [facility] Fentanyl 25 mcg 06/22/20 11:23 Fentanyl Citrate/Pf 100 Mcg/2 Ml Vial IVPUSH Q5M PRN Pain, Moderate (Pain Scale 4-6 Fentanyl 50 mcg 06/22/20 11:23 Fentanyl Citrate/Pf 100 Mcg/2 Ml Vial IVPUSH Q5M PRN Pain, Severe (Pain Scale 7-10) Sodium Chloride 1,000 mls @ 150 mls/hr 06/22/20 01:06 06/22/20 14:56 Ns IVCONT Infused .Q6H40M SHELLY Infusion Lactated Ringer's 1,000 mls @ 100 mls/hr 06/22/20 10:15 06/22/20 10:17 Lr IVCONT 100 mls/hr .Q10H SHELLY Administration Insulin Human Lispro 0 unit 06/22/20 07:30 06/22/20 14:39 Insulin Lispro 100 Unit/Ml 3 Ml Vial SUBCUT Not Given QIDACHS [facility] Protocol Ketorolac Tromethamine 15 mg 06/21/20 22:15 06/22/20 14:54 Ketorolac Tromethamine 15 Mg/Ml Vial IV 15 mg Q6H SHELLY Administration Morphine Sulfate 4 mg 06/22/20 01:06 06/22/20 06:29 Morphine Sulfate 4 Mg/Ml Cartridge IVPUSH 4 mg Q4H PRN Administration Pain, Severe (Pain Scale 7-10) Ondansetron HCl 4 mg 06/22/20 01:06 Ondansetron Hcl 4 Mg/2 Ml Vial IVPUSH Q8H PRN Nausea and Vomiting Oxycodone HCl 5 mg 06/22/20 01:06 Oxycodone Hcl Immed Release 5 Mg Tablet PO Q6H PRN Pain, Severe (Pain Scale 7-10) Oxycodone HCl 5 mg 06/22/20 12:28 Oxycodone Hcl Immed Release 5 Mg Tablet PO Q4H PRN [facility] Consult 1 each 06/21/20 22:06 Consult Rx Perform Med Rec MISCELLANE ONCE PRN Consult order Sodium Chloride 3 ml 06/22/20 01:06 06/22/20 14:56 0.9 % Sodium Chloride Flush 3 Ml Syringe IVFLUSH 3 ml QSHIFT SHELLY Administration Labs CBC & Chem 7: 06/22/20 05:26 06/22/20 05:26 Assessment and Plan (1) Pancreatitis: Status: Acute (2) Calculus of distal right ureter: Problem details: right retrograde, ureteroscopy, laser lithotripsy, stent placement - completed Status: Acute (3) Atypical chest pain: Status: Acute (4) Hypertension: Status: Acute (5) Diabetes: Status: Acute Assessment and Plan: 55-year-old male with past medical history as mentioned above who presents to the hospital with complaints of abdominal pain and right flank pain. CT of the abdomen which was done earlier on ED presentation showed 8 mm of renal calculi Right-sided abdominal pain and flank pain likely secondary to ureteral stone CT abdomen shows 8 mm right ureteral stone urology consulted patient underwent cystoscopy with lithotripsy and stent placement continue IV fluids continue IV pain medication Elevated lipase with abdominal pain most on right side and right flank ct abdomen shows normal pancreas although was without contrast ?pancreatitis continue supportive measures continue IV fluid chest pain resolved Hiigh sensitivity troponin negative, EKG shows no evidence of ACS DVT prophylaxis: Lovenox
[2020-06-22 17:20] LABS: Glucose, Whole Blood 192 mg/dL (60-115)
[2020-06-22] MEDS: Insulin Lispro 100 UNIT/ML 3 ML VIAL SUBCUT ×2 (17:41→21:07)
[2020-06-22] MEDS: 0.9 % Sodium Chloride 1,000 ML 150 ML IVCONT ×2 (17:42→20:53)
[2020-06-22 21:07] LABS: Glucose, Whole Blood 221 mg/dL (60-115)
[2020-06-23] VITALS (9 sets, daily range): BP systolic 133–188; BP diastolic 69–95; PULSE 66–84; RESP 17–19; TEMP 36.4–36.8; O2SAT 98–100
[2020-06-23] MEDS: 0.9 % Sodium Chloride 1,000 ML 150 ML IVCONT (04:40)
[2020-06-23] MEDS: Morphine Sulfate 4 MG/ML CARTRIDGE IVPUSH ×2 (04:41→12:52)
[2020-06-23 07:20] LABS: Anion Gap 14 (12-20); Blood Urea Nitrogen 9 mg/dL (9-16); Carbon Dioxide 23 mmol/L (22-29); Chloride 104 mmol/L (96-108); Creatinine Clr Calc Pharmacy 143.3; Estimated Glomerular Filt Rate > 60; Glucose Random 158 mg/dL (60-115); Sodium 137 mmol/L (135-145)
[2020-06-23 07:31] LABS: Lipase 187 U/L (8-78)
[2020-06-23 07:53] LABS: Glucose, Whole Blood 187 mg/dL (60-115)
[2020-06-23] MEDS: Enoxaparin Sodium 40 MG/0.4 ML SYRINGE SUBCUT (08:12)
[2020-06-23] MEDS: 0.9 % Sodium Chloride Flush 3 ML SYRINGE IVFLUSH ×3 (08:12→21:27)
[2020-06-23] MEDS: Insulin Lispro 100 UNIT/ML 3 ML VIAL SUBCUT ×4 (08:12→21:26)
--- NOTE | 2020-06-23 08:28 | HO.POSTANES ---
Post Anesthesia Evaluation Post Anesthesia Evaluation Vital Signs: Vital Signs Temp Pulse Resp BP Pulse Ox 06/23/20 07:26 97.5 F 66 18 188/79 H 99 06/23/20 04:43 163/81 H 06/23/20 04:41 18 06/23/20 04:15 97.8 F 79 18 179/95 H 98 06/22/20 23:38 98 F 88 18 140/81 H 99 Anesthesia: General Mental Status: Awake Pain Control: Satisfactory (Difficulty contrlling pain throughout the night) Nausea/Vomiting: Mild Hydration: Adequate Anesthesia-Related Issues: No Anes. Related Issues
--- NOTE | 2020-06-23 09:33 | MHC.CM.PN ---
Patient reports he did have [facility] for insurance and is not sure why it's not showing up. States he thinks he had to renew it and missed the date. CM referred patient to our financial team. CM will continue to follow patient for discharge needs.
[2020-06-23] MEDS: lisinopriL 5 MG TABLET PO (10:26)
--- NOTE | 2020-06-23 10:31 | P.PNUR_ITS ---
Subjective Subjective Patient reports: no new complaints and pain is less Interval history: Doing well after stone procedure regular diet f/u with me next week Physical Exam Vital Signs: Vital Signs: Vital Signs Temp Pulse Resp BP Pulse Ox 06/23/20 10:26 66 188/79 H 06/23/20 07:26 97.5 F 66 18 188/79 H 99 06/23/20 04:43 163/81 H 06/23/20 04:41 18 06/23/20 04:15 97.8 F 79 18 179/95 H 98 06/22/20 23:38 98 F 88 18 140/81 H 99 06/22/20 19:24 96.9 F 64 16 146/78 H 96 06/22/20 18:00 98.2 F 81 18 98 06/22/20 15:57 96.8 F 69 16 160/87 H 99 06/22/20 14:45 97.2 F 69 18 150/85 H 69 L 06/22/20 13:45 66 16 140/65 H 98 06/22/20 13:35 71 18 131/60 98 06/22/20 13:20 97.8 F 74 16 133/59 L 99 06/22/20 13:05 75 18 140/73 H 97 06/22/20 12:50 72 16 107/51 L 94 06/22/20 12:45 71 14 117/61 95 06/22/20 12:40 74 14 117/64 96 06/22/20 12:35 97.8 F 76 16 125/64 95 06/22/20 11:24 96 Body Mass Index 34.8 Const: General: cooperative, healthy appearing, comfortable and no acute distress Nutritional Appearance: average body habitus [place] ation/consciousness: oriented to person, oriented to place and oriented to time Eyes: General: appearance normal, both eyes and all related structures Chest: Chest palpation & inspection: normal inspection of the chest Resp: Effort & Inspection: normal respiratory effort Cardio: Rate: regular rate GI: Inspection: Yes normal to inspection Skin: Hair: normal Neuro: General: oriented to person, oriented to place and oriented to time Extrem: General: Yes normal to inspection Progress Note: A&P Assessment and plan (1) Calculus of distal right ureter: Problem details: right retrograde, ureteroscopy, laser lithotripsy, stent placement - completed Status: Acute Assessment and Plan: as above f/u next week for stent removal Fall Risk Details Current Medications: Current Medications Generic Name Dose Route Start Last Admin Trade Name Freq PRN Reason Stop Dose Admin Acetaminophen 650 mg 06/22/20 01:06 Acetaminophen 325 Mg Tablet PO Q6H PRN Pain, Mild (Pain Scale 1-3) Docusate Sodium 100 mg 06/22/20 01:06 Docusate Sodium 100 Mg Capsule PO DAILY PRN Constipation Enoxaparin Sodium 40 mg 06/22/20 09:00 06/23/20 08:12 Enoxaparin Sodium 40 Mg/0.4 Ml Syringe SUBCUT 40 mg Q24H [facility] Administration Fentanyl 25 mcg 06/22/20 11:23 Fentanyl Citrate/Pf 100 Mcg/2 Ml Vial IVPUSH Q5M PRN Pain, Moderate (Pain Scale 4-6 Fentanyl 50 mcg 06/22/20 11:23 Fentanyl Citrate/Pf 100 Mcg/2 Ml Vial IVPUSH Q5M PRN Pain, Severe (Pain Scale 7-10) Sodium Chloride 1,000 mls @ 150 mls/hr 06/22/20 01:06 06/23/20 04:40 Ns IVCONT 150 mls/hr .Q6H40M SHE[facility] Administration Insulin Human Lispro 0 unit 06/22/20 07:30 06/23/20 08:12 Insulin Lispro 100 Unit/Ml 3 Ml Vial SUBCUT 2 unit QIDACHS [facility] Administration Protocol Lisinopril 5 mg 06/23/20 10:00 06/23/20 10:26 Lisinopril 5 Mg Tablet PO 5 mg DAILY SHELLY Administration Protocol Morphine Sulfate 4 mg 06/22/20 01:06 06/23/20 04:41 Morphine Sulfate 4 Mg/Ml Cartridge IVPUSH 4 mg Q4H PRN Administration Pain, Severe (Pain Scale 7-10) Ondansetron HCl 4 mg 06/22/20 01:06 Ondansetron Hcl 4 Mg/2 Ml Vial IVPUSH Q8H PRN Nausea and Vomiting Oxycodone HCl 5 mg 06/22/20 12:28 06/22/20 21:06 Oxycodone Hcl Immed Release 5 Mg Tablet PO 5 mg Q4H PRN Administration [facility] Consult 1 each 06/21/20 22:06 Consult Rx Perform Med Rec MISCELLANE ONCE PRN Consult order Sodium Chloride 3 ml 06/22/20 01:06 06/23/20 08:12 0.9 % Sodium Chloride Flush 3 Ml Syringe IVFLUSH 3 ml QSHIFT SHELLY Administration Time Spent With Patient Time: Total time spent is greater than 50% in coordination of care (as documented) at patient's floor/unit and/or counseling patient: Time with patient: less than 15 minutes
[2020-06-23 11:27] LABS: Glucose, Whole Blood 303 mg/dL (60-115)
[2020-06-23 12:50] LABS: Glucose, Whole Blood 237 mg/dL (60-115)
[2020-06-23] MEDS: ondansetron HCL 4 MG/2 ML VIAL IVPUSH ×2 (12:53→16:44)
--- NOTE | 2020-06-23 13:32 | P.DS_ITS ---
DS: Providers Provider Date of admission: 06/21/20 23:05 Primary care physician: None Physician Consults: 06/22/20 01:06 Consult to Physician Routine Consulting Provider: Erich Mora Reason for consultation: renal calculi Has provider been notified: Yes DS: Diagnosis Discharge Diagnosis (1) Calculus of distal right ureter: Status: Acute Problem details: right retrograde, ureteroscopy, laser lithotripsy, stent placement - completed DS: Summary Hospital Course Hospital Course: HPI:55-year-old male with past medical history of kidney stones, diabetes, coronary artery disease, hypertension who presents to the hospital with complaints of epigastric as well as right upper quadrant and and right flank pain.. Patient reports that his symptoms started couple days prior to presentation , pain is 10/10, radiating from the front to the back, no fever no chills. Patient has a previous history of kidney stone with similar presentation. Patient reports that he was in the ED earlier in the day with this pain, CT of the abdomen showed an 8 mm stone at the UVJ, patient's pain was controlled and he was sent home. He reports that his pain continued well as h ome unbearable and that is why he returned. He denies any urinary symptoms including no frequency urgency or dysuria. No nausea or vomiting. patient is also complaining of bilateral chest pain that is pressure, nonradiating, 7/10, worse with deep inspiration, occurs at rest, lasts about 30 minutes. This pain is intermittent. shortness of breath, headache or change in vision. No week tingling. No other complaints. Review of system negative otherwise. on arrival to the ED patient hemodynamically stable with no significant abnormal vitals labs are significant for WBC count of 11,000, And lipase of 1274. Hospital course problem oro section code: 55-year-old male with past medical history as mentioned above who presents to the hospital with complaints of abdominal pain and right flank pain. CT of the abdomen which was done earlier on ED presentation showed 8 mm of renal calculi 1. Abdominal pain: pancreatitis versus renal calculi. Initially was noted to be thought due to above. Patient was started on IV fluid, NPO, subsequently urology was consulted for of renal calculi-patient underwent cystoscopy with lithotripsy and stent placement. Subsequently patient's abdominal pain seem improved and tolerating diet well. Discussed with Urology patient is going home with Pyridium, tramadol, tamsulosin. Patient is to follow-up with Dr. mora outpatient. 2. Noted to be thought probable pancreatitis- abdominal pain with elevation of lipase patient denies any alcohol abuse, triglyceride level 180-190 range Patient improved with conservative management including fluid, pain management: Subsequently tolerating diet well. Lipase are improving. Abdominal ultrasound shows some hepatic steatosis, also pancreatic edema? Question related to probable pancreatitis. Please repeat abdominal ultrasound in 1 month's time to see the resolution of above pancreatic findings. Further workup outpatient as per PCP. we will change lisinopril to amlodipine due to pancreatitis , may be lisinopril contributing to pancreatitis . 3. Atypical chest pain:high sensitivity troponin negative, EKG shows no evidence of ACS Further workup outpatient as per PCP. Time Spent with Patient Time attestation: Total time spent providing and/or coordinating discharge services: Physical Exam Vital Signs: Vital Signs: Vital Signs Temp Pulse Resp BP Pulse Ox 06/23/20 11:52 97.7 F 84 18 181/80 H 100 06/23/20 10:26 66 188/79 H 06/23/20 07:26 97.5 F 66 18 188/79 H 99 06/23/20 04:43 163/81 H 06/23/20 04:41 18 06/23/20 04:15 97.8 F 79 18 179/95 H 98 06/22/20 23:38 98 F 88 18 140/81 H 99 06/22/20 19:24 96.9 F 64 16 146/78 H 96 06/22/20 18:00 98.2 F 81 18 98 06/22/20 15:57 96.8 F 69 16 160/87 H 99 06/22/20 14:45 97.2 F 69 18 150/85 H 69 L 06/22/20 13:45 66 16 140/65 H 98 06/22/20 13:35 71 18 131/60 98 Body Mass Index 34.8 DS: Data Data Completed and Pending Pending studies at discharge: Pending at discharge 06/22/20 12:42 Surgical [PTH] Routine Labs on day of discharge: Labs from last 24 hours 06/23/20 06/23/20 06/23/20 12:47 11:24 07:31 Sodium Potassium Chloride Carbon Dioxide Anion Gap BUN Creatinine Estim Creat Clear Calc Estimated GFR POC Glucose 237 H 303 H 187 H Random Glucose Calcium Lipase 06/23/20 06/22/20 06/22/20 05:26 20:54 17:17 Sodium 137 Potassium 4.0 Chloride 104 Carbon Dioxide 23 Anion Gap 14 BUN 9 Creatinine 0.71 Estim Creat Clear Calc 143.3 Estimated GFR > 60 POC Glucose 221 H 192 H Random Glucose 158 H D Calcium 8.0 L Lipase 187 H Discharge Plan Discharge Patient Disposition: Home, Self-Care Referrals: Physician,None [Primary Care Provider] - Discharge Medications: New tamsulosin 0.4 mg capsule 0.4 mg PO BEDTIME Qty: 14 RF: 0 phenazopyridine [Pyridium] 100 mg tablet 100 mg PO TID PRN (Reason: spasm) 4 Days Qty: 12 RF: 0 hydrocodone-acetaminophen 5-300 mg tablet 1 tab PO Q6H 7 Days Qty: 28 RF: 0 docusate sodium 100 mg Capsule 100 mg PO DAILY PRN (Reason: Constipation) Qty: 30 RF: 0 polyethylene glycol 3350 [Miralax] 17 gram/dose powder 17 g PO DAILY Qty: 119 RF: 0 amlodipine 5 mg tablet 5 mg PO DAILY Qty: 30 RF: 0 Continued ibuprofen 400 mg tablet 400 mg PO Q6H PRN (Reason: pain) Qty: 20 RF: 0 gabapentin 600 mg Tablet 600 mg PO TID RF: 0 metformin 1,000 mg Tablet 1,000 mg PO BID RF: 0 Lantus Solostar U-100 Insulin 100 unit/mL (3 mL) Insulin Pen 10 unit SUBCUT QPM RF: 0 Humalog KwikPen Insulin 15 - 20 units subcut DIRECTED RF: 0 Discontinued lisinopril 10 mg Tablet 10 mg PO DAILY RF: 0 Discharge Orders: Discharge Order (Routine); Ordered 06/24/20 Ordered By: Hallie Petersen Diet: advance to your usual diet and diabetic diet Activity on Discharge: As tolerated Stand Alone Forms: Work/School Release Discharge Date/Time: 06/24/20 14:49 Visit Report Forms: Patient Portal Discharge page Care Plan Goals: Patient came with right-sided abdominal pain-found to have ureter stone: Seen by Urology and went cystoscopy with lithotripsy and stent placement: Subsequently patient improved significantly and going home with Flomax, tramadol, peridium-patient is to follow-up with urology Dr. mora out patiently- further management outpatient as per Dr. mora. Health Concerns: In addition to above patient has slightly elevated lipase level which is improving patient denies any abdominal pain: Diet advanced patient tolerated well, question of pancreatitis initially: Further management outpatient with PCP. Plan of Treatment: As above.
[2020-06-23 16:06] LABS: Glucose, Whole Blood 236 mg/dL (60-115)
[2020-06-23] MEDS: oxyCODONE HCl Immed Release 5 MG TABLET PO ×2 (16:45→21:30)
--- NOTE | 2020-06-23 17:07 | HO.PM.IMPN ---
Subjective Subjective Date of Service: 06/23/20 Interval History: abd pain , pancreaitis Review of Systems Still has nausea and abdominal pain Physical Exam Vital Signs: Vital Signs: Vital Signs Temp Pulse Resp BP Pulse Ox 06/23/20 15:23 98.2 F 74 18 152/79 H 99 06/23/20 11:52 97.7 F 84 18 181/80 H 100 06/23/20 10:26 66 188/79 H 06/23/20 07:26 97.5 F 66 18 188/79 H 99 06/23/20 04:43 163/81 H 06/23/20 04:41 18 06/23/20 04:15 97.8 F 79 18 179/95 H 98 06/22/20 23:38 98 F 88 18 140/81 H 99 06/22/20 19:24 96.9 F 64 16 146/78 H 96 06/22/20 18:00 98.2 F 81 18 98 Body Mass Index 34.8 physical exam: Cvs: rrr, [id number] , no murmur res: clear to auscultation ,no rhonchii or wheezing abd: no rebound or guarding ,has moderate discomfort, bs present. ext pulses present , no cyanosis neuro: axo3 , nonfocal. Objective Data Current Medications Generic Name Dose Route Start Last Admin Trade Name Freq PRN Reason Stop Dose Admin Acetaminophen 650 mg 06/22/20 01:06 Acetaminophen 325 Mg Tablet PO Q6H PRN Pain, Mild (Pain Scale 1-3) Docusate Sodium 100 mg 06/22/20 01:06 Docusate Sodium 100 Mg Capsule PO DAILY PRN Constipation Enoxaparin Sodium 40 mg 06/22/20 09:00 06/23/20 08:12 Enoxaparin Sodium 40 Mg/0.4 Ml Syringe SUBCUT 40 mg Q24H SHELLY Administration Fentanyl 25 mcg 06/22/20 11:23 Fentanyl Citrate/Pf 100 Mcg/2 Ml Vial IVPUSH Q5M PRN Pain, Moderate (Pain Scale 4-6 Fentanyl 50 mcg 06/22/20 11:23 Fentanyl Citrate/Pf 100 Mcg/2 Ml Vial IVPUSH Q5M PRN Pain, Severe (Pain Scale 7-10) Insulin Human Lispro 0 unit 06/22/20 07:30 06/23/20 16:43 Insulin Lispro 100 Unit/Ml 3 Ml Vial SUBCUT 4 unit QIDACHS SHELLY Administration Protocol Lisinopril 5 mg 06/23/20 10:00 06/23/20 10:26 Lisinopril 5 Mg Tablet PO 5 mg DAILY [facility] Administration Protocol Morphine Sulfate 4 mg 06/22/20 01:06 06/23/20 12:52 Morphine Sulfate 4 Mg/Ml Cartridge IVPUSH 4 mg Q4H PRN Administration Pain, Severe (Pain Scale 7-10) Ondansetron HCl 4 mg 06/22/20 01:06 06/23/20 16:44 Ondansetron Hcl 4 Mg/2 Ml Vial IVPUSH 4 mg Q8H PRN Administration Nausea and Vomiting Oxycodone HCl 5 mg 06/22/20 12:28 06/23/20 16:45 Oxycodone Hcl Immed Release 5 Mg Tablet PO 5 mg Q4H PRN Administration [facility] Consult 1 each 06/21/20 22:06 Consult Rx Perform Med Rec MISCELLANE ONCE PRN Consult order Sodium Chloride 3 ml 06/22/20 01:06 06/23/20 16:45 0.9 % Sodium Chloride Flush 3 Ml Syringe IVFLUSH 3 ml QSHIFT [facility] Administration Labs CBC & Chem 7: 06/22/20 05:26 06/23/20 05:26 Assessment and Plan (1) Pancreatitis: Status: Acute (2) Calculus of distal right ureter: Problem details: right retrograde, ureteroscopy, laser lithotripsy, stent placement - completed Status: Acute (3) Atypical chest pain: Status: Acute (4) Hypertension: Status: Acute (5) Diabetes: Status: Acute Assessment and Plan: 55-year-old male with past medical history as mentioned above who presents to the hospital with complaints of abdominal pain and right flank pain. CT of the abdomen which was done earlier on ED presentation showed 8 mm of renal calculi 1.Right-sided abdominal pain and flank pain likely secondary to ureteral stone CT abdomen shows 8 mm right ureteral stone urology consulted patient underwent cystoscopy with lithotripsy and stent placement, IV fluids, pain management 2.Elevated lipase with abdominal pain most on right side and right flank ct abdomen shows normal pancreas although was without contrast ?pancreatitis continue supportive measures continue IV fluid 3. chest pain resolved :High sensitivity troponin negative, EKG shows no evidence of ACS DVT prophylaxis: Lovenox
[2020-06-23 21:21] LABS: Glucose, Whole Blood 281 mg/dL (60-115)
[2020-06-24 02:57] VITALS: RESP 18
[2020-06-24] MEDS: Morphine Sulfate 4 MG/ML CARTRIDGE IVPUSH (02:57)
[2020-06-24 03:15] VITALS: BP 151/74; PULSE 66; RESP 17; TEMP 36.8; O2SAT 98
[2020-06-24 07:16] VITALS: BP 152/81; PULSE 67; RESP 98; TEMP 36.6; O2SAT 98
[2020-06-24 07:23] LABS: Glucose, Whole Blood 191 mg/dL (60-115)
[2020-06-24 08:00] VITALS: BP 159/81; PULSE 69; RESP 18; TEMP 36.5; O2SAT 97
[2020-06-24] MEDS: Enoxaparin Sodium 40 MG/0.4 ML SYRINGE SUBCUT (08:45)
[2020-06-24] MEDS: Insulin Lispro 100 UNIT/ML 3 ML VIAL SUBCUT ×2 (08:46→12:43)
[2020-06-24] MEDS: lisinopriL 5 MG TABLET PO (08:46)
[2020-06-24] MEDS: 0.9 % Sodium Chloride Flush 3 ML SYRINGE IVFLUSH (08:47)
[2020-06-24 11:20] LABS: Glucose, Whole Blood 351 mg/dL (60-115)
[2020-06-24 11:40] VITALS: BP 176/90; PULSE 74; RESP 18; TEMP 36.1; O2SAT 99
--- NOTE | 2020-06-24 12:18 | MHC.CM.PN ---
Patient will be discharged home today no services. Family will provide transport.
[2020-06-24] MEDS: amLODIPine Besylate 5 MG TABLET PO (12:43)
== END 2020-06-24 14:49 | disposition home or self-care (01) | DRG 659 ==
LOC: HO.ED 22:58 → HO.IMC 06-22 00:01 → HO.S3 06-22 15:05 → HO.IMC 06-22 15:24
PROVIDERS: Internal Medicine; Urology; Admitting Provider Internal Medicine; Emergency Provider Emergency Medicine; Visit Provider Internal Medicine
PROC: 0TC68ZZ Extirpation of Matter from Right Ureter, Via Natural or Artificial Opening Endoscopic (ICD-10-PCS; principal; 2020-06-22 10:10)
DX: N20.1 Calculus of ureter (principal); K85.90 Acute pancreatitis without necrosis or infection, unspecified; I25.10 Atherosclerotic heart disease of native coronary artery without angina pectoris; F17.210 Nicotine dependence, cigarettes, uncomplicated; R07.89 Other chest pain; Z71.6 Tobacco abuse counseling; Z79.4 Long term (current) use of insulin; Z79.1 Long term (current) use of non-steroidal anti-inflammatories (NSAID); Z79.899 Other long term (current) drug therapy
CPT/HCPCS: 36415; 76705; 80048; 80076; 82365; 82947; 83690; 84478; 84484; 85025; 88300; 93005; 96374; 96375; 99285; C1758; C1769; C2617; J1650; J1885; J1956; J2250; J2270; J2405; J3010; Q9967

== ENCOUNTER 2020-07-02 11:25 | Emergency (ER) | payer OTHER, SELFPAY ==
[2020-07-02 11:35] LABS: Glucose, Whole Blood 343 mg/dL (60-115)
[2020-07-02 11:36] VITALS: BP 116/62; PULSE 78; RESP 16; TEMP 36.7; O2SAT 98; BMI 94.3
--- NOTE | 2020-07-02 11:44 | PC.NURSE ---
pt is aox3 speaking in full clear sentences skin pwd, resp even and unlabored. denies cp and sob. nsr on air sampling and monitoring. reports dizziness at work today with recently 2 weeks of high pocs at home. reports recently being admitted to [facility] for kidney stent placement and pancreatitis. 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 poc was in 300s upon arrival. awaiting md murray. patent 18g l ac from [facility]. 500ml ns infused from [facility].
--- NOTE | 2020-07-02 12:20 | ECG_ITS ---
Test Reason : HYPERGYLCEMIA Blood Pressure : / mmHG Vent. Rate : 070 BPM Atrial Rate : 070 BPM P-R Int : 188 ms QRS Dur : 152 ms QT Int : 446 ms P-R-T Axes : 008 -48 -25 degrees QTc Int : 481 ms Normal sinus rhythm Right bundle branch block Left anterior fascicular block Bifascicular block Nonspecific T wave abnormality Inferior leads No significant changes seen Referred By: Krystyna Bertrand Electronically Signed By:MODESTA CORREA MD
--- NOTE | 2020-07-02 12:21 | CT_ITS ---
EXAMINATION: CT ANGIOGRAM HEAD CT ANGIOGRAM NECK CLINICAL INFORMATION: Dizziness. Headache. Neck pain. Lethargy. COMPARISON: None available. TECHNIQUE: Initial noncontrast pumping plant operator imaging of the head and neck was performed. Noncontrast head CT was also performed. Test bolus sequences followed by intravenous administration 85 mL of Omnipaque 350. Helical imaging was performed in the axial plane from the aortic arch to the skull vertex. Delayed postcontrast imaging of the head was also performed. The data was processed at the textile technologist's workstation for generation of MIP sequences. Angled MIPs and volume rendered reformatted images were also generated at an offline 3D workstation. Stenoses are assessed in accordance with NASCET criteria unless otherwise indicated. DLP: 2862 mGy-cm FINDINGS: CT Head: There is no evidence of acute intracranial hemorrhage or edematous territorial infarction. A few foci of hypoattenuation in the periventricular and deep white matter most commonly seen with mild microangiopathy. Jenkins-white matter differentiation is preserved. Proportional prominence of the ventricles and sulcal spaces. No evidence for obstructive hydrocephalus. No abnormal mass effect or midline shift. No extra-axial fluid collections. No pathologic intra-axial enhancement or regional oligemia. There is a 1.7 cm subgaleal hematoma along the right posterior vertex. Mild anasarca. No associated osseous abnormalities. The patient is edentulous. Rightward nasal septal deviation with spurring. Mild mucosal thickening of the paranasal sinuses. The mastoid air cells and middle ear cavities are clear. CT Neck: There is a 1.2 cm inclusion cyst below the right jawline. Otherwise, the thyroid gland and remaining cervical soft tissues are within normal limits. Moderate multilevel degenerative spondyloarthropathy of the cervical spine. Moderate to advanced degenerative spondyloarthropathy from C4-T1. Prominent disc herniations at C4-C5, C5-C6, and C6-C7. There appears to be at least moderate spinal canal stenosis at C4-C5 and mild spinal canal stenoses at C5-C6 and C6-C7. CT Upper Chest: The visualized lung apices and upper mediastinum are within normal limits. Neck CTA: Aortic Arch: Normal contour and caliber. Classic 3 vessel branching pattern of the aortic arch. Great Vessel Origins: No significant stenosis of the branch origins. Right Common Carotid Artery: Normal opacification without focal stenosis or occlusion. Cervical Right Internal Carotid Artery: Calcific atherosclerotic disease of the carotid bulb and proximal internal carotid artery without flow-limiting stenosis. Left Common Carotid Artery: Normal opacification without focal stenosis or occlusion. Cervical Left Internal Carotid Artery: Calcific atherosclerotic disease of the carotid bulb and proximal internal carotid artery without flow-limiting stenosis. Cervical Right Vertebral Artery: Co-dominant. Normal opacification without focal stenosis or occlusion. Cervical Left Vertebral Artery: Co-dominant. Normal opacification without focal stenosis or occlusion. Brain CTA: Intracranial Internal Carotid Arteries: Calcific atherosclerotic disease of the intracranial internal carotid arteries. Most notably there is mild to moderate narrowing of the right greater than left paraophthalmic segments. No occlusion or high-grade stenosis. Otherwise, normal contrast opacification of the petrous, cavernous, paraophthalmic, and supraclinoid segments of the internal carotid arteries without focal stenosis. Right Anterior Cerebral Artery: Normal A1 segment. Normal opacification of the distal segments of the KATHIA. Left Anterior Cerebral Artery: Normal A1 segment. Normal opacification of the distal segments of the KATHIA. Anterior Communicating Artery: Normal. Right Middle Cerebral Artery: Normal opacification of the M1 segment of the MCA without focal stenosis or occlusion. Normal arborization of the distal segments. Left Middle Cerebral Artery: Normal opacification of the M1 segment of the MCA without focal stenosis or occlusion. Normal arborization of the distal segments. Right Vertebral Artery: Normal opacification of the V4 segment. The posterior inferior cerebellar artery is not well opacified; however, there is no CT evidence of acute occlusion. Left Vertebral Artery: Normal opacification of the V4 segment. Normal opacification of the proximal segments of the posterior inferior cerebellar artery. Basilar Artery: Normal opacification without focal stenosis or occlusion. Normal appearance of the proximal superior cerebellar arteries. Right Posterior Cerebral Artery: Normal P1 segment. Normal opacification of the distal segments of the MANAGER CLEANING. Left Posterior Cerebral Artery: Normal P1 segment. Normal opacification of the distal segments of the MANAGER [employer]. Normal opacification of the superior sagittal, straight, transverse, and sigmoid sinuses. CT/CT angio head neck IMPRESSION: 1. No evidence of acute intracranial hemorrhage or edematous territorial infarction. 2. CTA of the head and neck without proximal occlusion or flow-limiting stenosis. 3. Moderate to advanced multilevel degenerative spondyloarthropathy of the cervical spine. Most notably, there are prominent disc herniations at C4-C5, C5-C6, and C6-C7 with what appears to be at least moderate spinal canal stenosis at C4-C5. 4. Mild underlying white matter changes most commonly seen with mild underlying microangiopathy. 5. Small right posterior scalp hematoma. No associated osseous abnormalities. Mild anasarca.
--- NOTE | 2020-07-02 12:23 | ED.GENADULT ---
HPI - General Adult General Chief complaint: Recheck/Abnormal Lab/Rx Stated complaint: DIZZY,SPANGLER,SHOULDER PAIN Time Seen by Provider: 07/02/20 12:10 Source: patient and EMS Mode of arrival: EMS Limitations: no limitations History of Present Illness HPI narrative: 55 y/o male with history of DM, alcohol abuse, HTN, BPH, CAD s/p stent with recent admission for pancreatitis and obstructing kidney stone s/p lithotripsy and stent (06/22) who is presenting via ambulance with dizziness, bilateral shoulder pain, headache and generalized weakness and overall not feeling well. He states he woke up this morning feeling not feeling good , had his morning coffee and some cookies. When he went to work he felt worse. He had worsening dizziness prompting calling EMS. On EMS arrival he reported not taking his SS Insulin this morning after eating. His glucose was 409. He was slightly diaphoretic and pale. 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 He was given 500 cc IVF and brought to the ED for further evaluation. Related Data Home Medications Medication Instructions Recorded Confirmed Humalog KwikPen Insulin 15 - 20 units SUBCUT DIRECTED 06/21/20 07/03/20 Lantus Solostar U-100 Insulin 10 unit SUBCUT QPM 06/21/20 07/03/20 gabapentin 600 mg PO TID 06/21/20 07/03/20 metformin 1,000 mg PO BID 06/21/20 07/03/20 Previous Rx's Medication Instructions Recorded ibuprofen 400 mg PO Q6H PRN #20 tab 06/21/20 hydrocodone-acetaminophen 1 tab PO Q6H 7 Days #28 tab 06/22/20 phenazopyridine [Pyridium] 100 mg PO TID PRN 4 Days #12 tab 06/22/20 tamsulosin 0.4 mg PO BEDTIME #14 cap 06/22/20 docusate sodium 100 mg PO DAILY PRN #30 cap 06/23/20 polyethylene glycol 3350 [Miralax] 17 g PO DAILY #119 g 06/23/20 amlodipine 5 mg PO DAILY #30 tab 06/24/20 Allergies Allergy/AdvReac Type Severity Reaction Status Date / Time No Known Allergies Allergy Verified 06/21/20 21:00 [No Known Allergies*] Review of Systems Review of Systems: Constitutional: No Fever, No Chills ENT/Mouth: No sore throat, No Rhinorrhea, No Swallowing Difficulty Eyes: No Eye Pain, No Swelling, No Redness Cardiovascular: + Chest Pain, No SOB, No Orthopnea, No Edema Respiratory: No Cough, No Sputum, No Wheezing, No dyspnea Gastrointestinal: No Nausea, No Vomiting, No Diarrhea, + abdominal Pain, No Hematochezia, No Melena Genitourinary: No Dysuria, No Urinary Frequency, No Hematuria Musculoskeletal: +joint pain, + Myalgias Skin: No Skin Lesions, No rash Neuro:+ Weakness, No Numbness, + Dizziness, + Headache Psych: No Anxiety/Panic, No Depression Heme/Lymph: No Bruising, No Lymphadenopathy Endocrine: No Polyuria, No Polydipsia PMFSH Past Medical History Attestation statement: The following information was validated with the patient. Medical History Alcohol abuse Arthritis Atypical chest pain CAD (coronary artery disease) Diabetes Hypertension Increased BMI Pancreatitis Surgical History Hx of heart artery stent Status post laparoscopic cholecystectomy Social History Social History Household Members: Spouse and Children Housing: House Alcohol intake: never Smoking Status: Current every day smoker Tobacco Type: Cigarette Substance Use Type: Marijuana service: No Current occupational status: employed Physical Exam Vital Signs: Vital Signs: Vital Signs Temp Pulse Resp BP Pulse Ox 07/02/20 16:21 98 F 73 20 166/90 H 98 07/02/20 13:54 98 F 72 14 158/79 H 98 07/02/20 11:36 98.1 F 78 16 116/62 98 Body Mass Index 94.3 Appearance: Somewhat lethargic but arouses to voice. Oriented X3. No acute distress. Eyes: Pupils equal, round and reactive to light. ENT: Pharynx normal. Neck: Normal inspection. Neck supple. CVS: Normal heart rate and rhythm. Pulses normal. Respiratory: No respiratory distress. Breath sounds normal. Abdomen: Soft, slightly distended. Epigastric tenderness to deep palpation. +BS x4 Skin: Skin warm and dry. Normal skin color. Normal skin turgor. No rashes. Extremities: No lower extremity edema. Neuro: Oriented X 3. Lethargic, but answers questions appropriately. Generalized weakness noted UE>LE. PERRLA. Course Course Course Narrative: 55 y/o male with DM, CAD s/p stent, HTN, pancreatitis, kidney stone s/p recent stent placement who presents with hyperglycemia and dizziness. Slightly lethargic with generalized weakness on arrival [place] 350's. He is hemodynamically stable and afebrile. Will r/o DKA, other electrolyte abnormalities, dehydration, ACS and posterior CVA. CTA head/neck pending. EKG and troponin pending - reported some mild chest pain earlier now resolved. Dispo pending results and improvement. Reevaluation(s) Reevaluation #1: Glucose improving with IVF and 5 U SC insulin. CTA head/neck showing no acute stroke or occlusion - it did show advanced multilevel degenerative spondyloarthropathy of the cervical spine, with spinal stenosis at C4-C5. UA and Utox still pending. Signed out to Lore SUCKER MACHINE OPERATOR who will assume care. Medical Decision Making Lab Data Result diagrams: 07/02/20 12:27 07/02/20 12:27 Labs: Lab Results 07/02/20 07/02/20 07/02/20 Range/Units 11:31 12:27 12:27 WBC 8.2 (4.8-10.8) X10*3/uL RBC 4.79 (4.60-5.80) X10*6/uL Hgb 13.9 L (14.0-18.0) g/dl Hct 40.9 L (42-52) % MCV 85.4 (80-98) fL MCH 29.0 (27.0-33.0) pg MCHC 34.0 (31.0-36.0) g/dl RDW 12.9 (11.0-16.0) % Plt Count 240 (160-400) X10*3/uL MPV 10.9 (9.4-12.4) fL Immature Gran % (Auto) 0.5 H (0.0-0.4) % Neut % (Auto) 61.6 (45-73) % Lymph % (Auto) 22.5 (20-40) % [place] % (Auto) 9.6 (2-11) % Eos % (Auto) 5.3 H (0-4) % Baso % (Auto) 0.5 (0-2) % Lymph # (Auto) 1.9 (1.2-4.9) X10*3/uL [place] # (Auto) 0.8 (0.1-1.2) X10*3/uL Eos # (Auto) 0.4 (0.0-0.4) X10*3/uL Baso # (Auto) 0.0 (0.0-0.2) X10*3/uL Abs Immat Gran (auto) 0.04 H (0.00-0.03) X10*3/uL Absolute Neuts (auto) 5.1 (2.0-8.3) X10*3/uL Absolute Nucleated RBC 0.000 (0.0-0.012) X10*3/uL Nucleated RBC % (auto) 0.0 (0.0-0.2) /100WBC VBG pH (7.32-7.43) VBG pCO2 mmhg VBG Oxygen Liters/Min VBG pO2 mmhg VBG HCO3 mmol/L VBG O2 Saturation % VBG Base Excess mmol/L Sodium 132 L (135-145) mmol/L Potassium 4.3 (3.3-5.1) mmol/l Chloride 98 (96-108) mmol/L Carbon Dioxide 24 (22-29) mmol/L Anion Gap 14 (12-20) BUN 15 D (9-16) mg/dL Creatinine 1.23 (0.5-1.4) mg/dL Estim Creat Clear Calc 153.8 Estimated GFR > 60 POC Glucose 343 H (60-115) mg/dL Random Glucose 373 H* (60-115) mg/dL Calcium 8.1 L (8.4-10.2) mg/dL Total Bilirubin 0.2 (0.0-1.0) mg/dL Direct Bilirubin 0.2 (0.0-0.5) mg/dL AST 16 D (5-37) U/L ALT 27 (0-40) U/L Alkaline Phosphatase 102 (39-117) U/L Troponin I High Sens (<3.5-35.0) ng/L Total Protein 6.7 (6.5-8.0) g/dL Albumin 3.6 (3.5-5.0) g/dL Lipase (8-78) U/L Urine Color Urine Appearance Urine pH (5.0-8.0) Ur Specific [place] (1.005-1.025) Urine Protein (NEG-TRACE) MG/DL Urine Glucose (UA) (NEG) MG/DL Urine Ketones (NEG) MG/DL Urine Blood (NEG) Urine Nitrite (NEG) Ur Leukocyte Esterase (NEG) Urine RBC (0) /HPF Urine WBC (0-4) /HPF Ur Squamous Epith Cells /LPF Urine Bacteria /LPF Urine Opiates Screen (Not Detect) Ur Barbiturates Screen (Not Detect) Ur Phencyclidine Scrn (Not Detect) Ur Amphetamines Screen (Not Detect) U Benzodiazepines Scrn (Not Detect) Urine Cocaine Screen (Not Detect) U Marijuana (THC) Screen (Not Detect) Ethyl Alcohol mg/dL Acetone, Qual Negative (Negative) 07/02/20 07/02/20 07/02/20 Range/Units 12:27 12:27 12:27 WBC (4.8-10.8) X10*3/uL RBC (4.60-5.80) X10*6/uL Hgb (14.0-18.0) g/dl Hct (42-52) % MCV (80-98) fL MCH (27.0-33.0) pg MCHC (31.0-36.0) g/dl RDW (11.0-16.0) % Plt Count (160-400) X10*3/uL MPV (9.4-12.4) fL Immature Gran % (Auto) (0.0-0.4) % Neut % (Auto) (45-73) % Lymph % (Auto) (20-40) % [place] % (Auto) (2-11) % Eos % (Auto) (0-4) % Baso % (Auto) (0-2) % Lymph # (Auto) (1.2-4.9) X10*3/uL [place] # (Auto) (0.1-1.2) X10*3/uL Eos # (Auto) (0.0-0.4) X10*3/uL Baso # (Auto) (0.0-0.2) X10*3/uL Abs Immat Gran (auto) (0.00-0.03) X10*3/uL Absolute Neuts (auto) (2.0-8.3) X10*3/uL Absolute Nucleated RBC (0.0-0.012) X10*3/uL Nucleated RBC % (auto) (0.0-0.2) /100WBC VBG pH (7.32-7.43) VBG pCO2 mmhg VBG Oxygen Liters/Min VBG pO2 mmhg VBG HCO3 mmol/L VBG O2 Saturation % VBG Base Excess mmol/L Sodium (135-145) mmol/L Potassium (3.3-5.1) mmol/l Chloride (96-108) mmol/L Carbon Dioxide (22-29) mmol/L Anion Gap (12-20) BUN (9-16) mg/dL Creatinine (0.5-1.4) mg/dL Estim Creat Clear Calc Estimated GFR POC Glucose (60-115) mg/dL Random Glucose (60-115) mg/dL Calcium (8.4-10.2) mg/dL Total Bilirubin (0.0-1.0) mg/dL Direct Bilirubin (0.0-0.5) mg/dL AST (5-37) U/L ALT (0-40) U/L Alkaline Phosphatase (39-117) U/L Troponin I High Sens 6.2 (<3.5-35.0) ng/L Total Protein (6.5-8.0) g/dL Albumin (3.5-5.0) g/dL Lipase 139 H (8-78) U/L Urine Color Urine Appearance Urine pH (5.0-8.0) Ur Specific [place] (1.005-1.025) Urine Protein (NEG-TRACE) MG/DL Urine Glucose (UA) (NEG) MG/DL Urine Ketones (NEG) MG/DL Urine Blood (NEG) Urine Nitrite (NEG) Ur Leukocyte Esterase (NEG) Urine RBC (0) /HPF Urine WBC (0-4) /HPF Ur Squamous Epith Cells /LPF Urine Bacteria /LPF Urine Opiates Screen (Not Detect) Ur Barbiturates Screen (Not Detect) Ur Phencyclidine Scrn (Not Detect) Ur Amphetamines Screen (Not Detect) U Benzodiazepines Scrn (Not Detect) Urine Cocaine Screen (Not Detect) U Marijuana (THC) Screen (Not Detect) Ethyl Alcohol < 10 mg/dL Acetone, Qual (Negative) 07/02/20 07/02/20 07/02/20 Range/Units 12:43 15:35 16:34 WBC (4.8-10.8) X10*3/uL RBC (4.60-5.80) X10*6/uL Hgb (14.0-18.0) g/dl Hct (42-52) % MCV (80-98) fL MCH (27.0-33.0) pg MCHC (31.0-36.0) g/dl RDW (11.0-16.0) % Plt Count (160-400) X10*3/uL MPV (9.4-12.4) fL Immature Gran % (Auto) (0.0-0.4) % Neut % (Auto) (45-73) % Lymph % (Auto) (20-40) % [place] % (Auto) (2-11) % Eos % (Auto) (0-4) % Baso % (Auto) (0-2) % Lymph # (Auto) (1.2-4.9) X10*3/uL [place] # (Auto) (0.1-1.2) X10*3/uL Eos # (Auto) (0.0-0.4) X10*3/uL Baso # (Auto) (0.0-0.2) X10*3/uL Abs Immat Gran (auto) (0.00-0.03) X10*3/uL Absolute Neuts (auto) (2.0-8.3) X10*3/uL Absolute Nucleated RBC (0.0-0.012) X10*3/uL Nucleated RBC % (auto) (0.0-0.2) /100WBC VBG pH 7.29 L (7.32-7.43) VBG pCO2 54 mmhg VBG Oxygen Liters/Min TNP VBG pO2 42 mmhg VBG HCO3 25 mmol/L VBG O2 Saturation 75.3 % VBG Base Excess -2.1 mmol/L Sodium (135-145) mmol/L Potassium (3.3-5.1) mmol/l Chloride (96-108) mmol/L Carbon Dioxide (22-29) mmol/L Anion Gap (12-20) BUN (9-16) mg/dL Creatinine (0.5-1.4) mg/dL Estim Creat Clear Calc Estimated GFR POC Glucose 252 H (60-115) mg/dL Random Glucose (60-115) mg/dL Calcium (8.4-10.2) mg/dL Total Bilirubin (0.0-1.0) mg/dL Direct Bilirubin (0.0-0.5) mg/dL AST (5-37) U/L ALT (0-40) U/L Alkaline Phosphatase (39-117) U/L Troponin I High Sens (<3.5-35.0) ng/L Total Protein (6.5-8.0) g/dL Albumin (3.5-5.0) g/dL Lipase (8-78) U/L Urine Color YELLOW Urine Appearance CLEAR Urine pH 6.0 (5.0-8.0) Ur Specific [place] <= 1.005 (1.005-1.025) Urine Protein NEG (NEG-TRACE) MG/DL Urine Glucose (UA) >=1000 H (NEG) MG/DL Urine Ketones NEG (NEG) MG/DL Urine Blood TRACE (NEG) Urine Nitrite NEG (NEG) Ur Leukocyte Esterase NEG (NEG) Urine RBC 0 (0) /HPF Urine WBC 0-2 (0-4) /HPF Ur Squamous Epith Cells TRACE /LPF Urine Bacteria NONE /LPF Urine Opiates Screen (Not Detect) Ur Barbiturates Screen (Not Detect) Ur Phencyclidine Scrn (Not Detect) Ur Amphetamines Screen (Not Detect) U Benzodiazepines Scrn (Not Detect) Urine Cocaine Screen (Not Detect) U Marijuana (THC) Screen (Not Detect) Ethyl Alcohol mg/dL Acetone, Qual (Negative) 07/02/20 Range/Units 16:34 WBC (4.8-10.8) X10*3/uL RBC (4.60-5.80) X10*6/uL Hgb (14.0-18.0) g/dl Hct (42-52) % MCV (80-98) fL MCH (27.0-33.0) pg MCHC (31.0-36.0) g/dl RDW (11.0-16.0) % Plt Count (160-400) X10*3/uL MPV (9.4-12.4) fL Immature Gran % (Auto) (0.0-0.4) % Neut % (Auto) (45-73) % Lymph % (Auto) (20-40) % [place] % (Auto) (2-11) % Eos % (Auto) (0-4) % Baso % (Auto) (0-2) % Lymph # (Auto) (1.2-4.9) X10*3/uL [place] # (Auto) (0.1-1.2) X10*3/uL Eos # (Auto) (0.0-0.4) X10*3/uL Baso # (Auto) (0.0-0.2) X10*3/uL Abs Immat Gran (auto) (0.00-0.03) X10*3/uL Absolute Neuts (auto) (2.0-8.3) X10*3/uL Absolute Nucleated RBC (0.0-0.012) X10*3/uL Nucleated RBC % (auto) (0.0-0.2) /100WBC VBG pH (7.32-7.43) VBG pCO2 mmhg VBG Oxygen Liters/Min VBG pO2 mmhg VBG HCO3 mmol/L VBG O2 Saturation % VBG Base Excess mmol/L Sodium (135-145) mmol/L Potassium (3.3-5.1) mmol/l Chloride (96-108) mmol/L Carbon Dioxide (22-29) mmol/L Anion Gap (12-20) BUN (9-16) mg/dL Creatinine (0.5-1.4) mg/dL Estim Creat Clear Calc Estimated GFR POC Glucose (60-115) mg/dL Random Glucose (60-115) mg/dL Calcium (8.4-10.2) mg/dL Total Bilirubin (0.0-1.0) mg/dL Direct Bilirubin (0.0-0.5) mg/dL AST (5-37) U/L ALT (0-40) U/L Alkaline Phosphatase (39-117) U/L Troponin I High Sens (<3.5-35.0) ng/L Total Protein (6.5-8.0) g/dL Albumin (3.5-5.0) g/dL Lipase (8-78) U/L Urine Color Urine Appearance Urine pH (5.0-8.0) Ur Specific [place] (1.005-1.025) Urine Protein (NEG-TRACE) MG/DL Urine Glucose (UA) (NEG) MG/DL Urine Ketones (NEG) MG/DL Urine Blood (NEG) Urine Nitrite (NEG) Ur Leukocyte Esterase (NEG) Urine RBC (0) /HPF Urine WBC (0-4) /HPF Ur Squamous Epith Cells /LPF Urine Bacteria /LPF Urine Opiates Screen POSITIVE H (Not Detect) Ur Barbiturates Screen Not Detected (Not Detect) Ur Phencyclidine Scrn Not Detected (Not Detect) Ur Amphetamines Screen Not Detected (Not Detect) U Benzodiazepines Scrn Not Detected (Not Detect) Urine Cocaine Screen Not Detected (Not Detect) U Marijuana (THC) Screen Not Detected (Not Detect) Ethyl Alcohol mg/dL Acetone, Qual (Negative) ECG Data Attestation: I personally reviewed and interpreted this ECG as follows: Interpretation: normal sinus rhytrhm, HR 70 bpm, bifascicular block, normal DE interval. no significant changes in EKG from May 2020. Discharge Plan Discharge Clinical Impression: Opioid abuse Patient Disposition: Home, Self-Care Instructions: Narcotic Use Disorder (ED) Additional Instructions: who presented to the emergency department for altered mental status, dizziness, and fatigue. Your labs are normal besides your blood glucose. You did test positive for opioids, it is suspected that your are abusing Or misusing the medications that are prescribed to you. opioids are dangerous medication and have high risk for , addiction and abuse. Please consider detox. We are discharging home with a dose of Narcan. Thank you for choosing this emergency department for evaluation. Please follow-up with primary care physician as needed. Return to the emergency department for any new, concerning, or worsening symptoms. Prescriptions: No Action ibuprofen 400 mg tablet 400 mg PO Q6H PRN (Reason: pain) Qty: 20 RF: 0 gabapentin 600 mg Tablet 600 mg PO TID RF: 0 metformin 1,000 mg Tablet 1,000 mg PO BID RF: 0 Lantus Solostar U-100 Insulin 100 unit/mL (3 mL) Insulin Pen 10 unit SUBCUT QPM RF: 0 Humalog KwikPen Insulin 15 - 20 units subcut DIRECTED RF: 0 tamsulosin 0.4 mg capsule 0.4 mg PO BEDTIME Qty: 14 RF: 0 phenazopyridine [Pyridium] 100 mg tablet 100 mg PO TID PRN (Reason: spasm) 4 Days Qty: 12 RF: 0 hydrocodone-acetaminophen 5-300 mg tablet 1 tab PO Q6H 7 Days Qty: 28 RF: 0 docusate sodium 100 mg Capsule 100 mg PO DAILY PRN (Reason: Constipation) Qty: 30 RF: 0 polyethylene glycol 3350 [Miralax] 17 gram/dose powder 17 g PO DAILY Qty: 119 RF: 0 amlodipine 5 mg tablet 5 mg PO DAILY Qty: 30 RF: 0 Stand Alone Forms: Work/School Release Interventions: ED Discharge Assessment Last Done: 07/02/20 19:04 Discharge Date/Time: 07/02/20 19:09
[2020-07-02] MEDS: 0.9 % Sodium Chloride 1,000 ML 999 ML IVCONT ×2 (12:29→14:37)
[2020-07-02 12:40] LABS: MANUAL DIFF FLAG NO
[2020-07-02 12:50] LABS: Basophils Percent Auto 0.5 % (0-2); Eosinophils Absolute Auto 0.4 X10*3/uL (0.0-0.4); Eosinophils Percent Auto 5.3 % (0-4); Hematocrit 40.9 % (42-52); Hemoglobin 13.9 g/dl (14.0-18.0); Imm Gran Abs Auto 0.04 X10*3/uL (0.00-0.03); Imm Gran Pct Auto 0.5 % (0.0-0.4); Lymphocytes Absolute Auto 1.9 X10*3/uL (1.2-4.9); Lymphocytes Percent Auto 22.5 % (20-40); Mean Corpuscular Volume 85.4 fL (80-98); Mean Platelet Volume 10.9 fL (9.4-12.4); Monocytes Absolute Auto 0.8 X10*3/uL (0.1-1.2); Monocytes Percent Auto 9.6 % (2-11); Neutrophils Absolute Auto 5.1 X10*3/uL (2.0-8.3); Neutrophils Percent Auto 61.6 % (45-73); Platelet Count 240 X10*3/uL (160-400); Red Blood Count 4.79 X10*6/uL (4.60-5.80); Red Cell Distribution Width 12.9 % (11.0-16.0); White Blood Count 8.2 X10*3/uL (4.8-10.8)
[2020-07-02 13:00] LABS: Base Excess VBG -2.1 mmol/L; HCO3 VBG 25 mmol/L; PCO2 VBG 54 mmhg; PO2 VBG 42 mmhg; pH VBG 7.29 (7.32-7.43)
[2020-07-02 13:01] LABS: Oxygen Saturation VBG 75.3 %
[2020-07-02 13:22] LABS: Ethanol < 10 mg/dL
[2020-07-02 13:27] LABS: Troponin-I High Sensitivity 6.2 ng/L (<3.5-35.0)
[2020-07-02 13:32] LABS: Alanine Aminotransferase 27 U/L (0-40); Albumin Level 3.6 g/dL (3.5-5.0); Alkaline Phosphatase 102 U/L (39-117); Anion Gap 14 (12-20); Aspartate Amino Transferase 16 U/L (5-37); Bilirubin Direct 0.2 mg/dL (0.0-0.5); Bilirubin Total 0.2 mg/dL (0.0-1.0); Blood Urea Nitrogen 15 mg/dL (9-16); Calcium 8.1 mg/dL (8.4-10.2); Carbon Dioxide 24 mmol/L (22-29); Chloride 98 mmol/L (96-108); Creatinine Clr Calc Pharmacy 153.8; Estimated Glomerular Filt Rate > 60; Glucose Random 373 mg/dL (60-115); Potassium 4.3 mmol/l (3.3-5.1); Sodium 132 mmol/L (135-145); Total Protein 6.7 g/dL (6.5-8.0)
[2020-07-02 13:45] LABS: Lipase 139 U/L (8-78)
[2020-07-02 13:54] VITALS: BP 158/79; PULSE 72; RESP 14; TEMP 36.6; O2SAT 98
[2020-07-02] MEDS: Insulin Lispro 100 UNIT/ML 3 ML VIAL SUBCUT (14:36)
[2020-07-02 15:30] LABS: Acetone, serum QL Negative (Negative)
[2020-07-02 15:38] LABS: Glucose, Whole Blood 252 mg/dL (60-115)
[2020-07-02] MEDS: iohexoL 350 MG/ML 100 ML INFUS..BTL 85 ML IV (16:00)
[2020-07-02 16:21] VITALS: BP 166/90; BP 168/89; PULSE 73; RESP 20; TEMP 36.6; O2SAT 98
[2020-07-02 16:46] LABS: Glucose Urine UA >=1000 MG/DL (NEG); Leukocyte Esterase Urine NEG (NEG); Nitrite Urine NEG (NEG); Specific Gravity - Urine <= 1.005 (1.005-1.025); Urine Blood TRACE (NEG); Urine Ketones NEG (NEG); Urine Protein NEG (NEG-TRACE)
[2020-07-02 16:47] LABS: Appearance Urine CLEAR; Color Urine YELLOW
[2020-07-02 17:09] LABS: RBC Urine 0 /HPF (0); Squamous Epithelial Cell Urine TRACE /LPF; WBC Urine 0-2 /HPF (0-4)
[2020-07-02 17:41] LABS: Amphetamine Screen Urine Not Detected (Not Detect); Barbiturates, Urine Not Detected (Not Detect); Benzodiazepines Screen Urine Not Detected (Not Detect); Cannabinoid Screen Urine Not Detected (Not Detect); Cocaine Screen Urine Not Detected (Not Detect); Opiate Screen Urine POSITIVE (Not Detect); Phencyclidine Screen Urine Not Detected (Not Detect)
[2020-07-02] MEDS: Naloxone HCl Nasal TAKE HOME 4 MG SPRAY NOSTRILALT (19:09)
== END 2020-07-02 19:09 | disposition home or self-care (01) ==
PROVIDERS: Physician Assistant; Emergency Provider Emergency Medicine
DX: R42 Dizziness and giddiness (principal); M25.512 Pain in left shoulder; M25.511 Pain in right shoulder; R51.9 Headache, unspecified; I10 Essential (primary) hypertension; F12.90 Cannabis use, unspecified, uncomplicated; I25.10 Atherosclerotic heart disease of native coronary artery without angina pectoris; Z79.899 Other long term (current) drug therapy; F17.210 Nicotine dependence, cigarettes, uncomplicated
CPT/HCPCS: 36415; 70496; 70498; 80048; 80076; 80307; 80320; 81001; 82009; 82803; 82947; 83690; 84484; 85025; 93005; 96360; 96361; 99284; Q9967

== ENCOUNTER → 2020-07-03 12:56 | Outpatient (BNVA) | payer OTHER, SELFPAY | PROVIDERS: Visit Provider Urology | DX: N20.1 Calculus of ureter (principal); F17.210 Nicotine dependence, cigarettes, uncomplicated; F12.10 Cannabis abuse, uncomplicated | CPT/HCPCS: 52000; 52310; 81002; 99212 ==

== ENCOUNTER 2020-08-14 23:25 | Emergency (ER) | payer OTHER, SELFPAY ==
[2020-08-14 23:38] VITALS: BP 188/82; PULSE 92; RESP 18; TEMP 36.6; O2SAT 98; BMI 34.5
[2020-08-15] VITALS: BP 168/71; PULSE 81; RESP 18; O2SAT 99
--- NOTE | 2020-08-15 00:34 | CT_ITS ---
EXAMINATION: CT ABDOMEN AND PELVIS WITH CONTRAST CLINICAL INFORMATION: Epigastric pain. COMPARISON: 06/21/2020. TECHNIQUE: Contiguous axial thin section helical images of the abdomen and pelvis were performed following the administration of 40 mL of intravenous Omnipaque 350. The data set was reformatted in the coronal and sagittal planes and reviewed on an independent workstation. DLP: 742 mGy-cm. FINDINGS: The visualized lung bases are clear. The visualized portions of the heart are unremarkable. The liver is of normal size and attenuation without focal lesions nor intrahepatic biliary ductal dilation. Patient status post cholecystectomy. Surgical clips are identified. The spleen, pancreas, adrenal glands are unremarkable. Both kidneys are of normal size and attenuation without hydronephrosis. There is a 6 mm nonobstructive calculus within the lower pole of the left kidney. Following the administration of IV contrast, prompt symmetric nephrograms are displayed. There is no abdominal free fluid. There is neither mesenteric nor retroperitoneal lymphadenopathy. Normal unopacified loops of small and large bowel are identified. There is no pelvic free fluid. The urinary bladder is unremarkable. A pessary is in place. There is neither pelvic nor inguinal lymphadenopathy. Bone windows: Neither sclerotic nor lytic bone lesions are identified. There are bilateral L5 pars defects with quite minimal anterior displacement of L5 in relation to S1. CT/CT abdomen pelvis w con IMPRESSION: No evidence for acute abdominal or pelvic inflammatory or infectious processes. Nonobstructive left renal calculus. Automated exposure control (Care Dose) Adjustment of the mA and/or kv according to patient size (this includes techniques or standardized protocols for targeted exams where dose is matched to indication / reason for exam; i.e. extremities or head).
--- NOTE | 2020-08-15 00:35 | ED_ITS ---
HPI - Abdominal Pain General Chief Complaint: Abdominal Pain Stated Complaint: Abd pain Time Seen by Provider: 08/15/20 00:01 Source: patient Mode of arrival: ambulatory Limitations: no limitations History of Present Illness HPI narrative: Patient comes to emergency room complaining of epigastric pain. Patient states it started about 6 days ago, today the pain became unbearable and came to the emergency room. Patient states he has history of pancreatitis, states he has not had any alcohol in several years. Patient denies vomiting or diarrhea, no fever. Related Data Home Medications Medication Instructions Recorded Confirmed Humalog KwikPen Insulin 15 - 20 units SUBCUT DIRECTED 06/21/20 07/03/20 Lantus Solostar U-100 Insulin 10 unit SUBCUT QPM 06/21/20 07/03/20 gabapentin 600 mg PO TID 06/21/20 07/03/20 metformin 1,000 mg PO BID 06/21/20 07/03/20 Previous Rx's Medication Instructions Recorded ibuprofen 400 mg PO Q6H PRN #20 tab 06/21/20 hydrocodone-acetaminophen 1 tab PO Q6H 7 Days #28 tab 06/22/20 phenazopyridine [Pyridium] 100 mg PO TID PRN 4 Days #12 tab 06/22/20 tamsulosin 0.4 mg PO BEDTIME #14 cap 06/22/20 docusate sodium 100 mg PO DAILY PRN #30 cap 06/23/20 polyethylene glycol 3350 [Miralax] 17 g PO DAILY #119 g 06/23/20 amlodipine 5 mg PO DAILY #30 tab 06/24/20 Allergies Allergy/AdvReac Type Severity Reaction Status Date / Time No Known Allergies Allergy Verified 08/14/20 23:38 [No Known Allergies*] Review of Systems Review of Systems Constitutional : No Weight loss, No Fever, No Chills, No Night Sweats, No Fatigue, No Malaise ENT/Mouth : No Hearing loss, No Ear Pain, No Nasal Congestion, No Sinus Pain, No Hoarseness, No sore throat, No Rhinorrhea, No Swallowing Difficulty Eyes: No Eye Pain, No Swelling, No Redness, No Foreign Body, No Discharge, No Vision Changes Cardiovascular : No Chest Pain, No SOB, No Dyspnea on Exertion, No Orthopnea, No Edema, No Palpitations Respiratory : No Cough, No Sputum, No Wheezing, No Smoke Exposure, No Dyspnea Gastrointestinal : No Nausea, No Vomiting, No Diarrhea, No Constipation, complaining of severe epigastric pain, No Hematochezia, No Melena Genitourinary : no irregular bleeding, No Dysuria, No Urinary Frequency, No Hematuria, No Urinary Incontinence, No Urgency, No Flank Pain, No Urinary Flow Changes, No Hesitancy Musculoskeletal : No joint pain, No Myalgias, No Joint Swelling Skin : No Skin Lesions, No rash Neuro : No Weakness, No Numbness, No Paresthesias, No Loss of Consciousness, No Dizziness, No Headache Psych : No Anxiety/Panic, No Depression, No SI/HI/AH/VH, No Social Issues, Heme/Lymph: No Bruising, No Bleeding,No Lymphadenopathy Endocrine : No Polyuria, No Polydipsia, No Temperature Intolerance Physical Exam Vital Signs: Vital Signs: Last Vital Signs Temp 97.8 F 08/14/20 23:38 Pulse 81 08/15/20 00:00 Resp 18 08/15/20 00:00 BP 168/71 H 08/15/20 00:00 Pulse Ox 99 08/15/20 00:00 Body Mass Index 34.5 Appearance: Alert. Oriented X3. No acute distress. Eyes: Pupils equal, round and reactive to light. ENT: Pharynx normal. Neck: Normal inspection. Neck supple. No lymph nodes noted. No crepitus CVS: Normal heart rate and rhythm. Pulses normal. Normal S1 and S2 Respiratory: No respiratory distress. Breath sounds normal. No Wheezing. No rales Abdomen: Soft , tenderness to palpation over epigastric area No rigidity. No distention. good BS x4 Skin: Skin warm and dry. Normal skin color. Normal skin turgor. Extremities: No lower extremity edema. No lower extremity edema. No Laceration s. No Rash Neuro: Oriented X 3. No motor deficit. No sensory deficit. Moving all extermities. No slurred speech. Course Course Course Narrative: Patient's lipase is 249, CT scan is pending. Patient keeps complaining of epigastric pain. Patient received 10 units of insulin for hyperglycemia. Sign-out given to Dr. Alonzo, disposition pending MDM - Abdominal Pain Lab Data Result diagrams: 08/15/20 00:54 08/15/20 00:54 Labs: Lab Results 08/15/20 08/15/20 08/15/20 Range/Units 00:54 00:54 00:54 WBC 10.0 (4.8-10.8) X10*3/uL RBC 5.12 (4.60-5.80) X10*6/uL Hgb 14.7 (14.0-18.0) g/dl Hct 43.5 (42-52) % MCV 85.0 (80-98) fL MCH 28.7 (27.0-33.0) pg MCHC 33.8 (31.0-36.0) g/dl RDW 13.2 (11.0-16.0) % Plt Count 232 (160-400) X10*3/uL MPV 11.2 (9.4-12.4) fL Immature Gran % (Auto) 0.5 H (0.0-0.4) % Neut % (Auto) 52.7 (45-73) % Lymph % (Auto) 29.0 (20-40) % [place] % (Auto) 9.8 (2-11) % Eos % (Auto) 7.2 H (0-4) % Baso % (Auto) 0.8 (0-2) % Lymph # (Auto) 2.9 (1.2-4.9) X10*3/uL [place] # (Auto) 1.0 (0.1-1.2) X10*3/uL Eos # (Auto) 0.7 H (0.0-0.4) X10*3/uL Baso # (Auto) 0.1 (0.0-0.2) X10*3/uL Abs Immat Gran (auto) 0.05 H (0.00-0.03) X10*3/uL Absolute Neuts (auto) 5.2 (2.0-8.3) X10*3/uL Absolute Nucleated RBC 0.000 (0.0-0.012) X10*3/uL Nucleated RBC % (auto) 0.0 (0.0-0.2) /100WBC Sodium 134 L (135-145) mmol/L Potassium 4.0 (3.3-5.1) mmol/l Chloride 100 (96-108) mmol/L Carbon Dioxide 24 (22-29) mmol/L Anion Gap 14 (12-20) BUN 30 H D (9-16) mg/dL Creatinine 1.06 (0.5-1.4) mg/dL Estim Creat Clear Calc 95.6 Estimated GFR > 60 Random Glucose 331 H (60-115) mg/dL Lactic Acid 1.4 (0.5-2.0) mmol/L Calcium 9.8 D (8.4-10.2) mg/dL Total Bilirubin 0.3 (0.0-1.0) mg/dL Direct Bilirubin < 0.2 (0.0-0.5) mg/dL AST 27 D (5-37) U/L ALT 34 (0-40) U/L Alkaline Phosphatase 88 (39-117) U/L Total Protein 7.0 (6.5-8.0) g/dL Albumin 3.8 (3.5-5.0) g/dL Lipase 249 H (8-78) U/L Urine Color Urine Appearance Urine pH (5.0-8.0) Ur Specific [place] (1.005-1.025) Urine Protein (NEG-TRACE) MG/DL Urine Glucose (UA) (NEG) MG/DL Urine Ketones (NEG) MG/DL Urine Blood (NEG) Urine Nitrite (NEG) Ur Leukocyte Esterase (NEG) Urine RBC (0) /HPF Urine WBC (0-4) /HPF Ur Squamous Epith Cells /LPF Urine Bacteria /LPF Urine Opiates Screen (Not Detect) Ur Barbiturates Screen (Not Detect) Ur Phencyclidine Scrn (Not Detect) Ur Amphetamines Screen (Not Detect) U Benzodiazepines Scrn (Not Detect) Urine Cocaine Screen (Not Detect) U Marijuana (THC) Screen (Not Detect) 08/15/20 08/15/20 Range/Units 00:54 00:54 WBC (4.8-10.8) X10*3/uL RBC (4.60-5.80) X10*6/uL Hgb (14.0-18.0) g/dl Hct (42-52) % MCV (80-98) fL MCH (27.0-33.0) pg MCHC (31.0-36.0) g/dl RDW (11.0-16.0) % Plt Count (160-400) X10*3/uL MPV (9.4-12.4) fL Immature Gran % (Auto) (0.0-0.4) % Neut % (Auto) (45-73) % Lymph % (Auto) (20-40) % [place] % (Auto) (2-11) % Eos % (Auto) (0-4) % Baso % (Auto) (0-2) % Lymph # (Auto) (1.2-4.9) X10*3/uL [place] # (Auto) (0.1-1.2) X10*3/uL Eos # (Auto) (0.0-0.4) X10*3/uL Baso # (Auto) (0.0-0.2) X10*3/uL Abs Immat Gran (auto) (0.00-0.03) X10*3/uL Absolute Neuts (auto) (2.0-8.3) X10*3/uL Absolute Nucleated RBC (0.0-0.012) X10*3/uL Nucleated RBC % (auto) (0.0-0.2) /100WBC Sodium (135-145) mmol/L Potassium (3.3-5.1) mmol/l Chloride (96-108) mmol/L Carbon Dioxide (22-29) mmol/L Anion Gap (12-20) BUN (9-16) mg/dL Creatinine (0.5-1.4) mg/dL Estim Creat Clear Calc Estimated GFR Random Glucose (60-115) mg/dL Lactic Acid (0.5-2.0) mmol/L Calcium (8.4-10.2) mg/dL Total Bilirubin (0.0-1.0) mg/dL Direct Bilirubin (0.0-0.5) mg/dL AST (5-37) U/L ALT (0-40) U/L Alkaline Phosphatase (39-117) U/L Total Protein (6.5-8.0) g/dL Albumin (3.5-5.0) g/dL Lipase (8-78) U/L Urine Color YELLOW Urine Appearance CLEAR Urine pH 5.5 (5.0-8.0) Ur Specific [place] 1.020 (1.005-1.025) Urine Protein NEG (NEG-TRACE) MG/DL Urine Glucose (UA) >=1000 H (NEG) MG/DL Urine Ketones NEG (NEG) MG/DL Urine Blood NEG (NEG) Urine Nitrite NEG (NEG) Ur Leukocyte Esterase NEG (NEG) Urine RBC 0 (0) /HPF Urine WBC 0 (0-4) /HPF Ur Squamous Epith Cells TRACE /LPF Urine Bacteria NONE /LPF Urine Opiates Screen Not Detected (Not Detect) Ur Barbiturates Screen Not Detected (Not Detect) Ur Phencyclidine Scrn Not Detected (Not Detect) Ur Amphetamines Screen Not Detected (Not Detect) U Benzodiazepines Scrn Not Detected (Not Detect) Urine Cocaine Screen Not Detected (Not Detect) U Marijuana (THC) Screen Not Detected (Not Detect) Discharge Plan Discharge Clinical Impression: Acute epigastric pain, Hyperglycemia Prescriptions: No Action ibuprofen 400 mg tablet 400 mg PO Q6H PRN (Reason: pain) Qty: 20 RF: 0 gabapentin 600 mg Tablet 600 mg PO TID RF: 0 metformin 1,000 mg Tablet 1,000 mg PO BID RF: 0 Lantus Solostar U-100 Insulin 100 unit/mL (3 mL) Insulin Pen 10 unit SUBCUT QPM RF: 0 Humalog KwikPen Insulin 15 - 20 units subcut DIRECTED RF: 0 tamsulosin 0.4 mg capsule 0.4 mg PO BEDTIME Qty: 14 RF: 0 phenazopyridine [Pyridium] 100 mg tablet 100 mg PO TID PRN (Reason: spasm) 4 Days Qty: 12 RF: 0 hydrocodone-acetaminophen 5-300 mg tablet 1 tab PO Q6H 7 Days Qty: 28 RF: 0 docusate sodium 100 mg Capsule 100 mg PO DAILY PRN (Reason: Constipation) Qty: 30 RF: 0 polyethylene glycol 3350 [Miralax] 17 gram/dose powder 17 g PO DAILY Qty: 119 RF: 0 amlodipine 5 mg tablet 5 mg PO DAILY Qty: 30 RF: 0 PMFSH Past Medical History Medical History Alcohol abuse Arthritis Atypical chest pain CAD (coronary artery disease) Diabetes Hypertension Increased BMI Pancreatitis Surgical History Hx of heart artery stent Status post laparoscopic cholecystectomy Social History Social History Household Members: Spouse and Children Housing: House Alcohol intake: never Smoking Status: Current every day smoker Tobacco Type: Cigarette Substance Use Type: Marijuana Advance Directives: No service: No Current occupational status: employed
[2020-08-15] MEDS: Morphine Sulfate 4 MG/ML CARTRIDGE IVPUSH (00:59)
[2020-08-15] MEDS: 0.9 % Sodium Chloride 1,000 ML 999 ML IVCONT ×2 (01:00→02:58)
[2020-08-15 01:14] LABS: Basophils Absolute Auto 0.1 X10*3/uL (0.0-0.2); Basophils Percent Auto 0.8 % (0-2); Eosinophils Absolute Auto 0.7 X10*3/uL (0.0-0.4); Eosinophils Percent Auto 7.2 % (0-4); Hematocrit 43.5 % (42-52); Hemoglobin 14.7 g/dl (14.0-18.0); Imm Gran Abs Auto 0.05 X10*3/uL (0.00-0.03); Imm Gran Pct Auto 0.5 % (0.0-0.4); Lymphocytes Absolute Auto 2.9 X10*3/uL (1.2-4.9); Mean Corpuscular HGB Conc 33.8 g/dl (31.0-36.0); Mean Corpuscular Hemoglobin 28.7 pg (27.0-33.0); Mean Platelet Volume 11.2 fL (9.4-12.4); Monocytes Percent Auto 9.8 % (2-11); Neutrophils Absolute Auto 5.2 X10*3/uL (2.0-8.3); Neutrophils Percent Auto 52.7 % (45-73); Platelet Count 232 X10*3/uL (160-400); Red Blood Count 5.12 X10*6/uL (4.60-5.80); Red Cell Distribution Width 13.2 % (11.0-16.0)
--- NOTE | 2020-08-15 01:14 | PC.NURSE ---
PT CHG INTO GOWN. PT UP TO RESTROOM WITH STEADY EVEN GAIT TO RESTROOM FOR URINE SAMPLE. IV PLACED TO LAC, LABS DRAWN TO LAB. PT RATING ABD PAIN 04/06. PT MEDICATED PER EMAR FOR PAIN AND NS UP AND RUNNING W/O SITE INTACT. PT WATCHING TV AND DENIES ANY OTHER COMPLAINTS. WILL CONTINUE TO MONITOR PT. CALL [facility] W/I REACH. AWAITING PENDING RESULTS.
[2020-08-15 01:16] LABS: MANUAL DIFF FLAG NO
[2020-08-15 01:18] LABS: Glucose Urine UA >=1000 MG/DL (NEG); Leukocyte Esterase Urine NEG (NEG); Nitrite Urine NEG (NEG); PH 5.5 (5.0-8.0); Urine Blood NEG (NEG); Urine Ketones NEG (NEG); Urine Protein NEG (NEG-TRACE)
[2020-08-15 01:29] LABS: Appearance Urine CLEAR; Color Urine YELLOW
[2020-08-15 01:31] LABS: Lactic Acid 1.4 mmol/L (0.5-2.0)
[2020-08-15 01:34] LABS: Amphetamine Screen Urine Not Detected (Not Detect); Barbiturates, Urine Not Detected (Not Detect); Benzodiazepines Screen Urine Not Detected (Not Detect); Cannabinoid Screen Urine Not Detected (Not Detect); Cocaine Screen Urine Not Detected (Not Detect); Opiate Screen Urine Not Detected (Not Detect); Phencyclidine Screen Urine Not Detected (Not Detect)
[2020-08-15 01:36] LABS: RBC Urine 0 /HPF (0); Squamous Epithelial Cell Urine TRACE /LPF; WBC Urine 0 /HPF (0-4)
[2020-08-15 01:37] LABS: Alanine Aminotransferase 34 U/L (0-40); Albumin Level 3.8 g/dL (3.5-5.0); Alkaline Phosphatase 88 U/L (39-117); Anion Gap 14 (12-20); Aspartate Amino Transferase 27 U/L (5-37); Bilirubin Direct < 0.2 mg/dL (0.0-0.5); Bilirubin Total 0.3 mg/dL (0.0-1.0); Blood Urea Nitrogen 30 mg/dL (9-16); Calcium 9.8 mg/dL (8.4-10.2); Carbon Dioxide 24 mmol/L (22-29); Chloride 100 mmol/L (96-108); Creatinine Clr Calc Pharmacy 95.6; Estimated Glomerular Filt Rate > 60; Glucose Random 331 mg/dL (60-115); Lipase 249 U/L (8-78); Sodium 134 mmol/L (135-145)
[2020-08-15] MEDS: iohexoL 350 MG/ML 100 ML INFUS..BTL 40 ML IV (02:11)
[2020-08-15] MEDS: Insulin Regular, Human 100 UNIT/ML 3 ML VIAL 10 UNIT IVPUSH (02:59)
[2020-08-15] MEDS: oxyCODONE HCl Immed Release 5 MG TABLET 10 MG PO (03:03)
== END 2020-08-15 03:11 | disposition home or self-care (01) ==
PROVIDERS: Emergency Provider Emergency Medicine
DX: R10.13 Epigastric pain (principal); E11.65 Type 2 diabetes mellitus with hyperglycemia; I10 Essential (primary) hypertension; F10.10 Alcohol abuse, uncomplicated; F17.210 Nicotine dependence, cigarettes, uncomplicated
CPT/HCPCS: 36415; 74177; 80048; 80076; 80307; 81001; 83605; 83690; 85025; 96361; 96374; 96375; 99284; J2270; Q9967

== ENCOUNTER 2020-08-28 21:24 | Emergency (ER) | payer OTHER, SELFPAY ==
[2020-08-28 21:26] VITALS: BP 189/82; PULSE 100; RESP 18; TEMP 36.1; O2SAT 100; BMI 36.1
--- NOTE | 2020-08-28 21:48 | ED_ITS ---
HPI - Extremity Injury (Lower) General Chief Complaint: Extremity Injury, Lower Stated Complaint: foot problem Time Seen by Provider: 08/28/20 21:46 Source: patient Mode of arrival: ambulatory History of Present Illness HPI Narrative: 55-year-old male with a past medical history of CAD, diabetes, neuropathy, c/o L foot pain x few days with puncture wound noted to plantar aspect L foot today by patient's daughter. Patient admits he found metal blanca in his work boots, but denies knowing when he stepped on them. Admits to chills. Tetanus unknown. Denies fever, drainage from area, injury to the area MD complaint: foot injury Related Data Home Medications Medication Instructions Recorded Confirmed Humalog KwikPen Insulin 15 - 20 units SUBCUT DIRECTED 06/21/20 07/03/20 Lantus Solostar U-100 Insulin 10 unit SUBCUT QPM 06/21/20 07/03/20 gabapentin 600 mg PO TID 06/21/20 07/03/20 metformin 1,000 mg PO BID 06/21/20 07/03/20 Previous Rx's Medication Instructions Recorded ibuprofen 400 mg PO Q6H PRN #20 tab 06/21/20 hydrocodone-acetaminophen 1 tab PO Q6H 7 Days #28 tab 06/22/20 phenazopyridine [Pyridium] 100 mg PO TID PRN 4 Days #12 tab 06/22/20 tamsulosin 0.4 mg PO BEDTIME #14 cap 06/22/20 docusate sodium 100 mg PO DAILY PRN #30 cap 06/23/20 polyethylene glycol 3350 [Miralax] 17 g PO DAILY #119 g 06/23/20 amlodipine 5 mg PO DAILY #30 tab 06/24/20 oxycodone 5 mg PO Q6H PRN #20 tab 08/15/20 cephalexin [Keflex] 500 mg PO Q6H 7 Days #28 cap 08/28/20 levofloxacin 750 mg PO DAILY 7 Days #7 tab 08/28/20 Allergies Allergy/AdvReac Type Severity Reaction Status Date / Time No Known Allergies Allergy Verified 08/14/20 23:38 [No Known Allergies*] Review of Systems Review of Systems: Constitutional: No Weight loss, No Fever, + Chills Musculoskeletal: + joint pain, No Myalgias, No Joint Swelling Skin: No Skin Lesions, No rash Neuro: No Weakness, +chronic Numbness from neuropathy Yes all other systems are reviewed and are negative [facility] Past Medical History Attestation statement: The following information was validated with the patient. Medical History Alcohol abuse Arthritis Atypical chest pain CAD (coronary artery disease) Diabetes Hypertension Increased BMI Pancreatitis Surgical History Hx of heart artery stent Status post laparoscopic cholecystectomy Social History Social History Household Members: Spouse and Children Housing: House Alcohol intake: never Smoking Status: Current every day smoker Tobacco Type: Cigarette Substance Use Type: Marijuana Advance Directives: No Advance Directives Information Provided: No service: No Current occupational status: employed Physical Exam Vital Signs: Vital Signs: Last Vital Signs Temp 98.2 F 08/28/20 22:35 Pulse 85 08/28/20 22:35 Resp 17 08/28/20 22:35 BP 146/83 H 08/28/20 22:35 Pulse Ox 99 08/28/20 22:35 Body Mass Index 36.1 Const: General: cooperative and healthy appearing Orientatio n/consciousness: patient oriented x3 Limitations: no limitations HENMT: Head: Yes normal to inspection Ears: hearing grossly normal bilaterally General nose exam: Normal external nose present Face and sinus: Yes normal facial exam Eyes: General: appearance normal, both eyes and all related structures EOM: EOMs intact bilaterally Neck: Neck: Yes normal visual inspection Resp: Effort & Inspection: normal respiratory effort Cardio: Rate: regular rate Peripheral pulses: dorsalis pedis present GI: Inspection: Yes normal to inspection Skin: Rashes: no rashes Neuro: General: patient oriented x3 Extrem: Other: left foot with puncture wound noted to lateral plantar aspect with questionable FB, but covered with overgrown skin. +mild surrounding swelling. No warmth or erythema. No expressible drainage or streaking Course Course Course Narrative: XR foot LT min 3V IMPRESSION: Soft tissue swelling without radiopaque foreign body or calcification overlying the lateral aspect of the 5th metatarsal base * Imaging results discussed with patient including worrisome signs and symptoms including worsening or persistent swelling, development of erythema, drainage, or fever to return to the ED immediately. Was supplied with Podiatry follow- up. First doses of Keflex and Levaquin were given in the ED. MDM - Extremity Injury (Lower) MDM Narrative Medical decision making narrative: 55-year-old male with a past medical history of CAD, diabetes, neuropathy, c/o L foot pain x few days with puncture wound noted to plantar aspect L foot today by patient's daughter. On exam VSS, NAD, puncture wound noted to left foot with suspected retained foreign body. No evidence of abscess or cellulitis Plan: X-ray, update tetanus, antibiotics Discharge Plan Discharge Patient Disposition: Home, Self-Care Instructions: Puncture Wound in the Foot (ED) Prescriptions: New cephalexin [Keflex] 500 mg capsule 500 mg PO Q6H 7 Days Qty: 28 RF: 0 levofloxacin 750 mg tablet 750 mg PO DAILY 7 Days Qty: 7 RF: 0 No Action ibuprofen 400 mg tablet 400 mg PO Q6H PRN (Reason: pain) Qty: 20 RF: 0 gabapentin 600 mg Tablet 600 mg PO TID RF: 0 metformin 1,000 mg Tablet 1,000 mg PO BID RF: 0 Lantus Solostar U-100 Insulin 100 unit/mL (3 mL) Insulin Pen 10 unit SUBCUT QPM RF: 0 Humalog KwikPen Insulin 15 - 20 units subcut DIRECTED RF: 0 tamsulosin 0.4 mg capsule 0.4 mg PO BEDTIME Qty: 14 RF: 0 phenazopyridine [Pyridium] 100 mg tablet 100 mg PO TID PRN (Reason: spasm) 4 Days Qty: 12 RF: 0 hydrocodone-acetaminophen 5-300 mg tablet 1 tab PO Q6H 7 Days Qty: 28 RF: 0 docusate sodium 100 mg Capsule 100 mg PO DAILY PRN (Reason: Constipation) Qty: 30 RF: 0 polyethylene glycol 3350 [Miralax] 17 gram/dose powder 17 g PO DAILY Qty: 119 RF: 0 amlodipine 5 mg tablet 5 mg PO DAILY Qty: 30 RF: 0 oxycodone 5 mg tablet 5 mg PO Q6H PRN (Reason: Abdominal Discomfort) Qty: 20 RF: 0 Referrals: Davi Kramer [Physician] - 5 days Print Language: Czech
--- NOTE | 2020-08-28 21:55 | XR_ITS ---
EXAMINATION: XR FOOT, LEFT CLINICAL INFORMATION: Puncture wound. Evaluate for foreign body. COMPARISON: Left foot radiographs dated 02/23/2019. TECHNIQUE: AP, lateral, and oblique views of the left foot. FINDINGS: Soft tissue swelling overlying the lateral base of the 5th metatarsal in the region of the skin marker. No associated radiopaque foreign body or soft tissue calcification. No fracture or dislocation. No osseous erosion. Atherosclerotic calcifications. Plantar and dorsal calcaneal spurs. XR/XR foot LT min 3V IMPRESSION: Soft tissue swelling without radiopaque foreign body or calcification overlying the lateral aspect of the 5th metatarsal base.
[2020-08-28 22:35] VITALS: BP 146/83; PULSE 85; RESP 17; TEMP 36.8; O2SAT 99
[2020-08-28] MEDS: Ketorolac Tromethamine 15 MG/ML VIAL IM (23:18)
[2020-08-28] MEDS: cephALEXin 500 MG CAPSULE PO (23:18)
[2020-08-28] MEDS: levoFLOXacin 750 MG TABLET PO (23:18)
== END 2020-08-28 23:38 | disposition home or self-care (01) ==
PROVIDERS: Emergency Provider Emergency Medicine
DX: S91.332A Puncture wound without foreign body, left foot, initial encounter (principal); W26.9XXA Contact with unspecified sharp object(s), initial encounter; E11.9 Type 2 diabetes mellitus without complications; I10 Essential (primary) hypertension; Y93.9 Activity, unspecified; Y92.9 Unspecified place or not applicable; Y99.9 Unspecified external cause status
CPT/HCPCS: 73630; 90471; 90715; 96372; 99284; J1885

== ENCOUNTER 2020-09-08 11:17 | Emergency (ER) | payer OTHER, SELFPAY ==
[2020-09-08 12:12] VITALS: BP 141/82; PULSE 91; RESP 16; TEMP 36.7; O2SAT 99; BMI 34.2
--- NOTE | 2020-09-08 12:53 | ED.EXTPRO ---
HPI - Extremity Problem General Chief complaint: Extremity Problem Stated complaint: feet pain Time Seen by Provider: 09/08/20 12:53 Source: patient Mode of arrival: ambulatory Limitations: no limitations History of Present Illness HPI Narrative: Redness and irritation to the foot past 2 days. States may be related to the shoes he wears. He offers no other complaints. No open wounds. No fever or chills. States he was seen here in emergency room couple of weeks ago for a puncture wound to the plantar aspect of the foot that has resolved and was more distal to the area. Onset (ago): day(s) (2) Location: left Relieving factors: nothing Related Data Home Medications Medication Instructions Recorded Confirmed Humalog KwikPen Insulin 13 units SUBCUT DIRECTED 06/21/20 09/10/20 Lantus Solostar U-100 Insulin 17 unit SUBCUT QPM 06/21/20 09/10/20 metformin 1,000 mg PO BID 06/21/20 09/10/20 aspirin 81 mg PO DAILY 09/10/20 09/10/20 gabapentin 300 mg PO TID 09/11/20 09/11/20 Previous Rx's Medication Instructions Recorded ibuprofen 400 mg PO Q6H PRN #20 tab 06/21/20 doxycycline monohydrate 100 mg PO BID 10 Days #20 cap 09/08/20 Allergies Allergy/AdvReac Type Severity Reaction Status Date / Time No Known Allergies Allergy Verified 09/08/20 12:14 [No Known Allergies*] Review of Systems Review of Systems: Constitutional: No Weight loss, No Fever, No Chills, No Night Sweats, No Fatigue, No Malaise ENT/Mouth: No Hearing loss, No Ear Pain, No Nasal Congestion, No Sinus Pain, No Hoarseness, No sore throat, No Rhinorrhea, No Swallowing Difficulty Eyes: No Eye Pain, No Swelling, No Redness, No Foreign Body, No Discharge, No Vision Changes Cardiovascular: No Chest Pain, No SOB, No Dyspnea on Exertion, No Orthopnea, No Edema, No Palpitations Respiratory: No Cough, No Sputum, No Wheezing, No Dyspnea Gastrointestinal: No Nausea, No Vomiting, No Diarrhea, No Constipation, No abdominal Pain, No Hematochezia, No Melena Genitourinary: No Dysuria, No Urinary Frequency, No Hematuria, No Urinary Incontinence, No Urgency, No Flank Pain Musculoskeletal: No joint pain, No Myalgias, No Joint Swelling Skin: No Skin Lesions, No rash Neuro: No Weakness, No Numbness, No Paresthesias, No Loss of Consciousness, No Dizziness, No Headache Psych: No Social Issues Heme/Lymph: No Bruising, No Bleeding,No Lymphadenopathy Endocrine: No Polyuria, No Polydipsia, No Temperature Intolerance Yes all other systems are reviewed and are negative [facility] Past Medical History Medical History Alcohol abuse Arthritis Atypical chest pain CAD (coronary artery disease) Diabetes Hypertension Increased BMI Pancreatitis Surgical History Hx of heart artery stent Status post laparoscopic cholecystectomy Social History Social History Household Members: Family Household Members Other:: and daughter Housing: House Do you presently have visiting nurse or other home services: No Alcohol intake: never Smoking Status: Current every day smoker Tobacco Type: Cigarette Cigarettes Per Day: 7 Years Smoked: 28 Smoked in Last 30 Days: Yes Patient Interested in Nicotine Replacement: Yes Patient Given Instructions on How to Stop Smoking: No Second Hand Smoke Exposure: Yes Use of substances other than those prescribed or required for medical reasons: No Substance Use Type: Marijuana Currently Displaying Signs/Symptoms of Drug Intoxication Withdrawal: No Have you been hit, kicked, punched, or otherwise hurt by someone within the past year? If so, by whom?: No Do you feel safe in your current relationship?: Yes Is there a partner from a previous relationship who is making you feel unsafe now?: No Are you made to feel afraid or neglected: No Advance Directives: No Advance Directives Information Provided: Yes Do you have thoughts of harming others: None Do you have a plan to hurt others: No Plan Recently lost weight without trying: No service: No Current occupational status: employed Physical Exam Vital Signs: Vital Signs: Last Vital Signs Temp 98.0 F 09/08/20 12:12 Pulse 91 09/08/20 12:12 Resp 16 09/08/20 12:12 BP 141/82 H 09/08/20 12:12 Pulse Ox 99 09/08/20 12:12 Body Mass Index 34.2 Reviewed Const: General: cooperative and healthy appearing; No acute distress or intoxicated appearing Nutritional Appearance: average body habitus Orientation/consciousness: patient oriented x3 HENMT: Head: Yes normal to inspection Ears: hearing grossly normal bilaterally Eyes: General: appearance normal, both eyes and all related structures Visual Carmona: normal visual carmona by confrontation Neck: Neck: Yes normal visual inspection, No positive Brudzinski's sign, No positive Kernig's sign and No tender Thyroid: Thyroid normal Chest: Chest palpation & inspection: normal inspection of the chest Resp: Effort & Inspection: normal respiratory effort Cardio: Jugular venous distension: no JVD Rhythm: regular rhythm Heart sounds: S1 normal heart sound present and S2 normal heart sound present GI: Inspection: Yes normal to inspection Percussion: Yes normal to percussion Auscultation: normal bowel sounds : General: Yes no CVA tenderness Back/Spine/Pelvis: Back: no CVA tenderness Skin: General skin exam: no rashes or lesions noted Neuro: General: patient oriented x3 Extrem: Other: Does wear boots and there is a small area friction irritation with surrounding mild erythema. No induration or swelling to suggest abscess. Not over the joint to suggest gout. General: Yes normal to inspection Course Course Course Narrative: In review 55-year-old male with extensive history including diabetes and peripheral vascular disease with associated neuropathy coming in with irritation in the medial aspect of the left heel there is friction may be related to the work boots he wear it with slight erythema around it. At this point no systemic symptoms. He was previously on quinolone and clean the for a puncture wound to the foot couple of weeks ago he finished the quinolone still has a few tablets of the clinda last as he has not been taking. Advised to stop this will start him on doxycycline and advised for return in 3 days for recheck. Clinically well nontoxic appearing. No indication for labs at this time. Will have close follow-up for recheck and may require admission at that time. He is agreeable plan. Stable for discharge. Discharge Plan Discharge Clinical Impression: Cellulitis, Friction blister Patient Disposition: Home, Self-Care Instructions: Cellulitis (ED) Additional Instructions: Keep site clean and dry Elevate Warm compresses Take antibiotic as prescribed Return in 2 days for recheck either on Monday or Monday Return sooner if any concerns or worsening symptoms Thank you Prescriptions: New doxycycline monohydrate 100 mg capsule 100 mg PO BID 10 Days Qty: 20 RF: 0 No Action ibuprofen 400 mg tablet 400 mg PO Q6H PRN (Reason: pain) Qty: 20 RF: 0 metformin 1,000 mg Tablet 1,000 mg PO BID RF: 0 Lantus Solostar U-100 Insulin 100 unit/mL (3 mL) Insulin Pen 17 unit SUBCUT QPM RF: 0 Humalog KwikPen Insulin 13 units subcut DIRECTED RF: 0 aspirin 81 mg Tablet,Delayed Release (Dr/Ec) 81 mg PO DAILY RF: 0 gabapentin 300 mg Capsule 300 mg PO TID RF: 0 Referrals: Ld Feldman, TRACK MANAGER [Emergency Midlevel Provider] - 2 days (For recheck) Stand Alone Forms: Work/School Release Interventions: ED Discharge Assessment Last Done: 09/08/20 14:19 Discharge Date/Time: 09/08/20 14:20
== END 2020-09-08 14:20 | disposition home or self-care (01) ==
PROVIDERS: Emergency Provider Emergency Medicine Emergency Medical Services
DX: L03.119 Cellulitis of unspecified part of limb (principal); F17.210 Nicotine dependence, cigarettes, uncomplicated; Z71.6 Tobacco abuse counseling; F12.90 Cannabis use, unspecified, uncomplicated; Z79.899 Other long term (current) drug therapy
CPT/HCPCS: 99283

== ENCOUNTER 2020-09-10 12:34 | Inpatient (IN) | payer OTHER, SELFPAY ==
[2020-09-10 12:48] VITALS: BP 160/84; PULSE 103; RESP 18; TEMP 36.6; O2SAT 99; BMI 34.2
--- NOTE | 2020-09-10 13:56 | CT_ITS ---
EXAMINATION: CT LEFT LOWER LEG. CLINICAL INFORMATION: Cellulitis. Question osteoarthritis of abscess or retained foreign body. COMPARISON: None TECHNIQUE: 3 mm thin axial and reformatted 1 mm thin sagittal and coronal images of entire left leg were obtained. DLP 309. FINDINGS: There is loss of tricompartment joint space with periarticular spurring but no bony erosive changes seen. No visible fracture, periosteal thickening or cortical irregularity seen involving the tibia or fibula and its entire length. Diffuse sclerotic densities are seen in medial proximal tibia likely bone island. The soft tissues and the anterior, posterior compartments appears normal. No suggestion of any salivary edema CT/CT lower leg LT w con IMPRESSION: Moderate to significant degenerative changes in tricompartment left knee. No fracture, bony erosive changes or periosteal thickening seen. The soft tissues are normal.
[2020-09-10] MEDS: 0.9 % Sodium Chloride 1,000 ML 999 ML IVCONT (14:25)
[2020-09-10] MEDS: ondansetron HCL 4 MG/2 ML VIAL IVPUSH (14:31)
[2020-09-10] MEDS: Morphine Sulfate 4 MG/ML CARTRIDGE IVPUSH ×2 (14:31→17:27)
[2020-09-10 14:32] VITALS: PULSE 91; RESP 16; O2SAT 99
[2020-09-10 14:32] LABS: MANUAL DIFF FLAG NO
[2020-09-10 14:34] LABS: Basophils Absolute Auto 0.1 X10*3/uL (0.0-0.2); Basophils Percent Auto 0.7 % (0-2); Eosinophils Absolute Auto 0.6 X10*3/uL (0.0-0.4); Eosinophils Percent Auto 5.2 % (0-4); Hematocrit 44.6 % (42-52); Hemoglobin 14.7 g/dl (14.0-18.0); Imm Gran Abs Auto 0.05 X10*3/uL (0.00-0.03); Imm Gran Pct Auto 0.5 % (0.0-0.4); Lymphocytes Absolute Auto 2.7 X10*3/uL (1.2-4.9); Lymphocytes Percent Auto 25.5 % (20-40); Mean Corpuscular Hemoglobin 28.2 pg (27.0-33.0); Mean Corpuscular Volume 85.4 fL (80-98); Mean Platelet Volume 10.9 fL (9.4-12.4); Monocytes Absolute Auto 0.9 X10*3/uL (0.1-1.2); Neutrophils Absolute Auto 6.4 X10*3/uL (2.0-8.3); Neutrophils Percent Auto 60.1 % (45-73); Platelet Count 240 X10*3/uL (160-400); Red Blood Count 5.22 X10*6/uL (4.60-5.80); Red Cell Distribution Width 13.5 % (11.0-16.0); White Blood Count 10.7 X10*3/uL (4.8-10.8)
[2020-09-10 14:40] LABS: INTERNATIONAL NORM RATIO 1.1 (0.9-1.1); Prothrombin Time 12.8 SEC (10.8-13.0)
[2020-09-10 14:50] LABS: Lactic Acid 1.5 mmol/L (0.5-2.0)
[2020-09-10 14:55] LABS: Anion Gap 14 (12-20); Blood Urea Nitrogen 20 mg/dL (9-16); Calcium 8.7 mg/dL (8.4-10.2); Carbon Dioxide 26 mmol/L (22-29); Chloride 103 mmol/L (96-108); Creatinine Clr Calc Pharmacy 101.9; Estimated Glomerular Filt Rate > 60; Glucose Random 299 mg/dL (60-115); Magnesium 1.5 mg/dL (1.6-2.6); Potassium 4.2 mmol/l (3.3-5.1); Sodium 139 mmol/L (135-145)
[2020-09-10 15:24] LABS: Influenza A PCR NEGATIVE (Negative); Influenza B PCR NEGATIVE (Negative); Resp Syncy Virus RNA Qual PCR NEGATIVE (Negative); SARS COV2 PCR INHOUSE NEGATIVE (Negative)
[2020-09-10] MEDS: iohexoL 350 MG/ML 100 ML INFUS..BTL IV (15:31)
[2020-09-10 15:33] LABS: Erythrocyte Sedimentation Rate 19 MM/HR (0-15)
--- NOTE | 2020-09-10 15:49 | ED_ITS ---
HPI - General Adult General Chief complaint: General Medical Stated complaint: cellulitis lt foot Time Seen by Provider: 09/10/20 13:05 Source: patient Mode of arrival: ambulatory Limitations: no limitations History of Present Illness HPI narrative: 55yoM c PMHx of CAD c hx of cardiac stent, DM, HTN, Neuropathy, arthritis, kidney stones, alcohol abuse and pancreatitis presenting to the ED c c/o worsening left foot pain/cellulitis despite being on 3 different antibiotics after being seen here on 08/28/2020 had a x-ray to the left foot and was negative for any foreign bodies placed on Keflex and Levaquin x 7 days. Reports that he completed the course of the Levaquin although did not finish the course of Keflex and was seen here on 09/08/2020 and reports he was instructed by the provider to stop the Keflex and Levaquin and start doxycycline. He has taken 2 full days of doxycycline. Although I believe the patient was not taking the antibiotics appropriately when he was prescribed Levaquin and Keflex due to he was prescribed 7 days and he should have already finished the course of the both antibiotics on 09/04/2020. Patient denies any fevers, chills, drainage, history of MRSA or any other symptoms complaints or concerns at this time. Related Data Home Medications Medication Instructions Recorded Confirmed Humalog KwikPen Insulin 13 units SUBCUT DIRECTED 06/21/20 09/10/20 Lantus Solostar U-100 Insulin 17 unit SUBCUT QPM 06/21/20 09/10/20 metformin 1,000 mg PO BID 06/21/20 09/10/20 aspirin 81 mg PO DAILY 09/10/20 09/10/20 Previous Rx's Medication Instructions Recorded ibuprofen 400 mg PO Q6H PRN #20 tab 06/21/20 doxycycline monohydrate 100 mg PO BID 10 Days #20 cap 09/08/20 Allergies Allergy/AdvReac Type Severity Reaction Status Date / Time No Known Allergies Allergy Verified 09/08/20 12:14 [No Known Allergies*] Review of Systems Review of Systems: Constitutional : No Fever, No Chills , no body aches, no prior recent illness Head/Face: No facial swelling, No facial redness ENT/Mouth : No oral/throat swelling, No Hoarseness, No Swallowing Difficulty Eyes: No Eye Pain, No Swelling, No Redness Cardiovascular : No Chest Pain, No SOB, No palpitations Respiratory : No Cough, No Sputum, No Wheezing, No Smoke Exposure, No Dyspnea Gastrointestinal : No Nausea, No Vomiting, No Diarrhea, No abdominal Pain Genitourinary : No Dysuria, No Urinary Frequency, No Hematuria Musculoskeletal : + left foot plantar joint pain/swelling, No Myalgias Skin : + rash/skin lesion Neuro : No Weakness, No Numbness, No Headache, No dizziness, No tingling Psych : No Anxiety/Panic, No Depression Heme/Lymph: No Bruising, No Lymphadenopathy Endocrine : No Polyuria, No Polydipsia Denies changes in lotions or detergents. Denies new medications or any changes in medications. Denies drainage from rash. Denies any recent sick contacts or recent travel. Yes all other systems are reviewed and are negative [facility], [facility] Past Medical History Attestation statement: The following information was validated with the patient. Medical History Alcohol abuse Arthritis Atypical chest pain CAD (coronary artery disease) Diabetes Hypertension Increased BMI Pancreatitis Surgical History Hx of heart artery stent Status post laparoscopic cholecystectomy Social History Social History Household Members: Spouse and Children Housing: House Alcohol intake: never Smoking Status: Current every day smoker Tobacco Type: Cigarette Smoked in Last 30 Days: Yes Use of substances other than those prescribed or required for medical reasons: No Substance Use Type: Marijuana Advance Directives: No Advance Directives Information Provided: Yes service: No Current occupational status: employed Physical Exam Vital Signs: Vital Signs: Last Vital Signs Temp 98 F 09/10/20 12:48 Pulse 91 09/10/20 14:32 Resp 16 09/10/20 14:32 BP 160/84 H 09/10/20 12:48 Pulse Ox 99 09/10/20 14:32 Body Mass Index 34.2 vital signs have been reviewed as normal and appeared to be correct. Blood pressure normal. Heart rate normal. Respiration rate normal. Temperature normal. Oxygen saturation normal. Appearance: Alert. Oriented X3. No acute distress. Head: Normal external exam. Normocephalic. Atraumatic. Eyes: PERRLA. EOMI. Conjunctiva and sclera normal. Eyelids normal. ENT: EAC normal. TM's Normal. Pharynx normal. Uvula midline. Moist mucous membranes. Neck: Normal inspection. Neck supple. FROM. No adenopathy. No meningeal signs. CVS: Normal heart rate and rhythm. Heart sound normal. No murmurs noted. Pulses normal throughout. Respiratory: No respiratory distress. Painless inspiration. Breath sounds normal. No wheezes/rales/rhonchi noted. Chest nontender. No accessory muscle usage noted or decreased air movement noted. Back: Full range of motion noted. Skin: Skin warm and dry. Normal skin color. Normal skin turgor. No rashes/lesions/lacerations noted. Extremities: To left foot calcaneus aspect patient has moderate soft tissue swelling, moderate TTP, moderate erythema and mild streaking to the posterior ankle at the Achilles aspect. See below pictures. No foreign bodies noted. No lower extremity edema. Otherwise all other Extremities exhibit normal range of motion and nontender. Neuro: Oriented X 3. No motor deficit. No sensory deficit. Reflexes normal. Course Course Course Narrative: 13:53pm - 55yoM c PMHx of CAD c hx of cardiac stent, DM, HTN, Neuropathy, arthritis, kidney stones, alcohol abuse and pancreatitis presenting to the ED c c/o worsening pain/cellulitic infection with streaking despite being on 3 different antibiotics which include Keflex/Levaquin and doxycycline. I believe the patient was noncompliant with taking the antibiotics. - on exam and patient with cellulitic infection to left calcaneus with streaking to the ankle. - Plan: Labs, CT scan of left lower extremity c IV contrast to evaluate possible abscess vs osteomyelitis vs worsening foreign body. Provide 4 mg of morphine and 4 mg of Zofran then re-evaluate. Reevaluation(s) Reevaluation #1: - Magnesium 1.5. - BUN 20. - Glucose 299. - total creatinine kinase 193. - All other labs WNL including lactic acid. - COVID/flu/RSV negative. - CT scan of left lower extremity with IV contrast revealed chronic changes no acute processes such as osteomyelitis or abscess at this time. - therefore 2 g of magnesium IV ordered along with ceftriaxone and vancomycin. Plan is to admit to the hospitalist service Stacy Dukes NP accepted admission for cellulitis with streaking failed outpatient treatment. Patient understands agrees the plan. Time: 17:30 Medical Decision Making Medical Records Medical records reviewed: Yes I reviewed the patient's medical records. Lab Data Lab results reviewed: Yes I reviewed the patient's lab results. Result diagrams: 09/10/20 14:23 09/10/20 14:23 Labs: Lab Results 09/10/20 09/10/20 09/10/20 Range/Units 14:23 14:23 14:23 WBC 10.7 (4.8-10.8) X10*3/uL RBC 5.22 (4.60-5.80) X10*6/uL Hgb 14.7 (14.0-18.0) g/dl Hct 44.6 (42-52) % MCV 85.4 (80-98) fL MCH 28.2 (27.0-33.0) pg MCHC 33.0 (31.0-36.0) g/dl RDW 13.5 (11.0-16.0) % Plt Count 240 (160-400) X10*3/uL MPV 10.9 (9.4-12.4) fL Immature Gran % (Auto) 0.5 H (0.0-0.4) % Neut % (Auto) 60.1 (45-73) % Lymph % (Auto) 25.5 (20-40) % [place] % (Auto) 8.0 (2-11) % Eos % (Auto) 5.2 H (0-4) % Baso % (Auto) 0.7 (0-2) % Lymph # (Auto) 2.7 (1.2-4.9) X10*3/uL [place] # (Auto) 0.9 (0.1-1.2) X10*3/uL Eos # (Auto) 0.6 H (0.0-0.4) X10*3/uL Baso # (Auto) 0.1 (0.0-0.2) X10*3/uL Abs Immat Gran (auto) 0.05 H (0.00-0.03) X10*3/uL Absolute Neuts (auto) 6.4 (2.0-8.3) X10*3/uL Absolute Nucleated RBC 0.000 (0.0-0.012) X10*3/uL Nucleated RBC % (auto) 0.0 (0.0-0.2) /100WBC ESR (0-15) MM/HR PT 12.8 (10.8-13.0) SEC INR 1.1 (0.9-1.1) Sodium 139 (135-145) mmol/L Potassium 4.2 (3.3-5.1) mmol/l Chloride 103 (96-108) mmol/L Carbon Dioxide 26 (22-29) mmol/L Anion Gap 14 (12-20) BUN 20 H (9-16) mg/dL Creatinine 0.99 (0.5-1.4) mg/dL Estim Creat Clear Calc 101.9 Estimated GFR > 60 Random Glucose 299 H (60-115) mg/dL Lactic Acid (0.5-2.0) mmol/L Calcium 8.7 D (8.4-10.2) mg/dL Magnesium 1.5 L (1.6-2.6) mg/dL Total Creatine Kinase (38-174) U/L Coronavirus (PCR) (Negative) Influenza Type A (PCR) (Negative) Influenza Type B (PCR) (Negative) RSV RNA Qual (PCR) (Negative) 09/10/20 09/10/20 09/10/20 Range/Units 14:23 14:23 14:23 WBC (4.8-10.8) X10*3/uL RBC (4.60-5.80) X10*6/uL Hgb (14.0-18.0) g/dl Hct (42-52) % MCV (80-98) fL MCH (27.0-33.0) pg MCHC (31.0-36.0) g/dl RDW (11.0-16.0) % Plt Count (160-400) X10*3/uL MPV (9.4-12.4) fL Immature Gran % (Auto) (0.0-0.4) % Neut % (Auto) (45-73) % Lymph % (Auto) (20-40) % [place] % (Auto) (2-11) % Eos % (Auto) (0-4) % Baso % (Auto) (0-2) % Lymph # (Auto) (1.2-4.9) X10*3/uL [place] # (Auto) (0.1-1.2) X10*3/uL Eos # (Auto) (0.0-0.4) X10*3/uL Baso # (Auto) (0.0-0.2) X10*3/uL Abs Immat Gran (auto) (0.00-0.03) X10*3/uL Absolute Neuts (auto) (2.0-8.3) X10*3/uL Absolute Nucleated RBC (0.0-0.012) X10*3/uL Nucleated RBC % (auto) (0.0-0.2) /100WBC ESR 19 H (0-15) MM/HR PT (10.8-13.0) SEC INR (0.9-1.1) Sodium (135-145) mmol/L Potassium (3.3-5.1) mmol/l Chloride (96-108) mmol/L Carbon Dioxide (22-29) mmol/L Anion Gap (12-20) BUN (9-16) mg/dL Creatinine (0.5-1.4) mg/dL Estim Creat Clear Calc Estimated GFR Random Glucose (60-115) mg/dL Lactic Acid 1.5 (0.5-2.0) mmol/L Calcium (8.4-10.2) mg/dL Magnesium (1.6-2.6) mg/dL Total Creatine Kinase (38-174) U/L Coronavirus (PCR) NEGATIVE (Negative) Influenza Type A (PCR) NEGATIVE (Negative) Influenza Type B (PCR) NEGATIVE (Negative) RSV RNA Qual (PCR) NEGATIVE (Negative) 09/10/20 Range/Units 14:23 WBC (4.8-10.8) X10*3/uL RBC (4.60-5.80) X10*6/uL Hgb (14.0-18.0) g/dl Hct (42-52) % MCV (80-98) fL MCH (27.0-33.0) pg MCHC (31.0-36.0) g/dl RDW (11.0-16.0) % Plt Count (160-400) X10*3/uL MPV (9.4-12.4) fL Immature Gran % (Auto) (0.0-0.4) % Neut % (Auto) (45-73) % Lymph % (Auto) (20-40) % [place] % (Auto) (2-11) % Eos % (Auto) (0-4) % Baso % (Auto) (0-2) % Lymph # (Auto) (1.2-4.9) X10*3/uL [place] # (Auto) (0.1-1.2) X10*3/uL Eos # (Auto) (0.0-0.4) X10*3/uL Baso # (Auto) (0.0-0.2) X10*3/uL Abs Immat Gran (auto) (0.00-0.03) X10*3/uL Absolute Neuts (auto) (2.0-8.3) X10*3/uL Absolute Nucleated RBC (0.0-0.012) X10*3/uL Nucleated RBC % (auto) (0.0-0.2) /100WBC ESR (0-15) MM/HR PT (10.8-13.0) SEC INR (0.9-1.1) Sodium (135-145) mmol/L Potassium (3.3-5.1) mmol/l Chloride (96-108) mmol/L Carbon Dioxide (22-29) mmol/L Anion Gap (12-20) BUN (9-16) mg/dL Creatinine (0.5-1.4) mg/dL Estim Creat Clear Calc Estimated GFR Random Glucose (60-115) mg/dL Lactic Acid (0.5-2.0) mmol/L Calcium (8.4-10.2) mg/dL Magnesium (1.6-2.6) mg/dL Total Creatine Kinase 193 H (38-174) U/L Coronavirus (PCR) (Negative) Influenza Type A (PCR) (Negative) Influenza Type B (PCR) (Negative) RSV RNA Qual (PCR) (Negative) Imaging Data Left lower extremity CT scan with IV contrast: Attestation: I personally reviewed and interpreted this imaging study as follows: Radiologist's impression: FINDINGS: There is loss of tricompartment joint space with periarticular spurring but no bony erosive changes seen. No visible fracture, periosteal thickening or cortical irregularity seen involving the tibia or fibula and its entire length. Diffuse sclerotic densities are seen in medial proximal tibia likely bone island. The soft tissues and the anterior, posterior compartments appears normal. No suggestion of any salivary edema CT/CT lower leg LT w con IMPRESSION: Moderate to significant degenerative changes in tricompartment left knee. No fracture, bony erosive changes or periosteal thickening seen. The soft tissues are normal. Critical Care Time Critical Care Time Critical Care Time: Yes Total Critical Care Time: 60 Attestation: I personally attest to this time spent taking care of the patient Discharge Plan Discharge Clinical Impression: Cellulitis, Failure of outpatient treatment Patient Disposition: Admitted As Inpatient
[2020-09-10] MEDS: Magnesium Sulfate/H2O 2 GM/50 ML PIGGYBACK IV (16:05)
[2020-09-10] MEDS: cefTRIAXone sodium 1 GM in 0.9 % Sodium Chloride 50 ML IV (16:17)
[2020-09-10 18:06] VITALS: BP 156/79; PULSE 71; RESP 16; O2SAT 99
[2020-09-10] MEDS: Insulin Glargine,Hum.rec.anlog 100 UNIT/ML 10 ML VIAL 17 UNIT SUBCUT (19:39)
[2020-09-10] MEDS: Piperacillin Sodium/Tazobactam 3.375 GM in 0.9 % Sodium Chloride 50 ML IV (20:13)
[2020-09-10 21:12] LABS: Glucose, Whole Blood 237 mg/dL (60-115)
[2020-09-10 21:21] VITALS: BP 152/86; PULSE 79; RESP 18; TEMP 36.4; O2SAT 100
[2020-09-10] MEDS: Insulin Lispro 100 UNIT/ML 3 ML VIAL SUBCUT (21:23)
[2020-09-10] MEDS: 0.9 % Sodium Chloride Flush 3 ML SYRINGE IVFLUSH (21:23)
[2020-09-10] MEDS: metFORMIN HCl 1,000 MG TABLET 1000 MG PO (21:23)
[2020-09-10 21:37] VITALS: RESP 18
[2020-09-10] MEDS: Morphine Sulfate 2 MG/ML CARTRIDGE IVPUSH (21:37)
[2020-09-10] MEDS: diphenhydrAMINE HCL 50 MG/ML VIAL 25 MG IVPUSH (21:55)
[2020-09-11] VITALS (8 sets, daily range): BP systolic 132–177; BP diastolic 65–88; PULSE 76–83; RESP 16–20; TEMP 36.2–37.4; O2SAT 96–99; BMI 34.2
--- NOTE | 2020-09-11 | MR_ITS ---
EXAMINATION: MRI OF THE LEFT FOOT WITH AND WITHOUT CONTRAST CLINICAL INFORMATION: inflamed rt calcaneous/no wound seen. Left foot pain. COMPARISON: CT dated 09/10/2020. TECHNIQUE: Multiplanar MR imaging was obtained through the ankle and hindfoot on a 1.5 Navya magnet before and after intravenous administration of 10 mL Gadavist. Examination slightly limited by motion artifact on most sequences. FINDINGS: ACHILLES TENDON: Borderline thickening at the mid substance 4 cm from the insertion, consistent with mild tendinosis. No tears OTHER TENDONS: No appreciable tears. Sensitivity for mild tendinosis and small there is a somewhat limited on these images due to motion artifact. LIGAMENTS: Intact. Sensitivity for mild sprains is limited by motion artifact. BONE AND ARTICULAR CARTILAGE: Normal marrow signal. Cartilage is well preserved. No talar osteochondral lesions. No abnormal marrow enhancement. No stress reactions. JOINT FLUID AND SOFT TISSUES: No joint effusion. There is significant surrounding edema in the posterior subcutaneous fat of the ankle and hindfoot as well as the lateral subcutaneous fat. No significant abnormal enhancement is identified in this region to indicate inflammation. No abscess. No discrete erosions are identified. There is edema signal throughout the abductor digiti minimi muscle. PLANTAR FASCIA: The central band of the plantar fascia is thickened (7 mm) with mildly increased intrasubstance signal and mild adjacent enhancement, consistent with plantar fasciitis. No tears. SINUS TARSI AND TARSAL TUNNEL: Normal. MR/MR foot LT wo/w con IMPRESSION: 1. Mild plantar fasciitis involving the central band. 2. 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 Recommend correlation with for the appropriate clinical symptoms. 3. Mild Achilles tendinosis.
[2020-09-11] MEDS: Piperacillin Sodium/Tazobactam 3.375 GM in 0.9 % Sodium Chloride 50 ML IV ×4 (01:33→19:12)
[2020-09-11] MEDS: Morphine Sulfate 2 MG/ML CARTRIDGE IVPUSH ×4 (01:33→16:37)
[2020-09-11] MEDS: vancomycin HCL 1,000 MG in 0.9 % Sodium Chloride 250 ML 270 MG IV (05:14)
[2020-09-11] MEDS: Gabapentin 300 MG CAPSULE PO (05:43)
[2020-09-11 06:26] LABS: MANUAL DIFF FLAG NO
[2020-09-11 06:42] LABS: Basophils Absolute Auto 0.1 X10*3/uL (0.0-0.2); Basophils Percent Auto 0.8 % (0-2); Eosinophils Absolute Auto 0.6 X10*3/uL (0.0-0.4); Eosinophils Percent Auto 6.4 % (0-4); Hematocrit 41.1 % (42-52); Hemoglobin 13.3 g/dl (14.0-18.0); Imm Gran Abs Auto 0.06 X10*3/uL (0.00-0.03); Imm Gran Pct Auto 0.6 % (0.0-0.4); Lymphocytes Absolute Auto 2.4 X10*3/uL (1.2-4.9); Lymphocytes Percent Auto 24.4 % (20-40); Mean Corpuscular HGB Conc 32.4 g/dl (31.0-36.0); Mean Corpuscular Hemoglobin 27.7 pg (27.0-33.0); Mean Corpuscular Volume 85.4 fL (80-98); Mean Platelet Volume 10.9 fL (9.4-12.4); Monocytes Absolute Auto 0.9 X10*3/uL (0.1-1.2); Monocytes Percent Auto 9.3 % (2-11); Neutrophils Absolute Auto 5.8 X10*3/uL (2.0-8.3); Neutrophils Percent Auto 58.5 % (45-73); Platelet Count 209 X10*3/uL (160-400); Red Blood Count 4.81 X10*6/uL (4.60-5.80); Red Cell Distribution Width 13.4 % (11.0-16.0); White Blood Count 9.9 X10*3/uL (4.8-10.8)
[2020-09-11 07:05] LABS: Anion Gap 14 (12-20); Blood Urea Nitrogen 13 mg/dL (9-16); Calcium 8.1 mg/dL (8.4-10.2); Carbon Dioxide 25 mmol/L (22-29); Chloride 104 mmol/L (96-108); Creatinine Clr Calc Pharmacy 129.4; Estimated Glomerular Filt Rate > 60; Glucose Random 144 mg/dL (60-115); Potassium 4.3 mmol/l (3.3-5.1); Sodium 139 mmol/L (135-145)
[2020-09-11] MEDS: 0.9 % Sodium Chloride Flush 3 ML SYRINGE IVFLUSH ×2 (07:28→16:37)
[2020-09-11 08:06] LABS: Glucose, Whole Blood 143 mg/dL (60-115)
[2020-09-11 08:13] LABS: Alanine Aminotransferase 71 U/L (0-40); Albumin Level 3.4 g/dL (3.5-5.0); Alkaline Phosphatase 92 U/L (39-117); Aspartate Amino Transferase 53 U/L (5-37); Bilirubin Direct 0.2 mg/dL (0.0-0.5); Bilirubin Total 0.3 mg/dL (0.0-1.0); Magnesium 1.8 mg/dL (1.6-2.6); Total Protein 6.2 g/dL (6.5-8.0)
--- NOTE | 2020-09-11 09:31 | MHC.CM.PN ---
CM MET WITH PT IS ADMITTED WITH FOOT INFECTION, PT IS ALERT AND ORIENTED, PT IS INDEPENDENT AT HOME WITH ALL CARE AND IS HOPEFUL TO RETURN TO WORK SOON, PT DENIES USE OF DME OR HOME CARE SERVICES. PT DOES NOT CURRENTLY HAVE A PCP AND PT WOULD LIKE TO SET ONE UP PRIOR TO DISCHARGE, CM WILL WORK ON PCP FOR PT. PT DENIES CURRENT HCP AND DECLINES AT THIS TIME, CM WILL ASSIST PT IF HE CHANGES HIS MIND PRIOR TO D/C. DISCHARGE PLAN HOME W/NO SERVICES, FAMILY TO TRANSPORT. PHARMACY- [facility]
[2020-09-11] MEDS: Aspirin Enteric Coated 81 MG TABLET.DR PO (09:42)
[2020-09-11] MEDS: oxyCODONE HCl Immed Release 5 MG TABLET PO ×2 (09:42→19:25)
[2020-09-11] MEDS: metFORMIN HCl 1,000 MG TABLET 1000 MG PO ×2 (09:42→21:11)
--- NOTE | 2020-09-11 10:36 | HP_ITS ---
DATE OF SERVICE: 09/10/2020 Primary care provider is not listed. CHIEF COMPLAINT: Foot pain. HISTORY OF PRESENT ILLNESS: 55-year-old man with multiple medical problems, presents to the ER with complaints of worsening left foot pain, swelling, and redness. 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 He presented to the ER, had a foot x-ray which was negative for any foreign body and was placed on Keflex and Levaquin for 7 days. He reported that he completed the course of Levaquin, but not Keflex and was again seen in the ER on September 08. At that time, he was told by the ER provider to stop the Keflex and Levaquin and was started on doxycycline. He did take 2 full doses of doxycycline, however he continued to feel like he was not getting better. He did report some fever and chills at home. He denied nausea, vomiting, diarrhea, or open wounds or drainage. He does have a history of diabetes mellitus. In the ER, he was not noted to have any fever or leukocytosis. He was given morphine, ceftriaxone, vancomycin, and magnesium. He will be admitted for further management and treatment of failed outpatient treatment of cellulitis. PAST MEDICAL HISTORY: 1. Pancreatitis. 2. Diabetes mellitus. 3. Hypertension. 4. Arthritis. 5. History of renal calculi. 6. Cholecystectomy. 7. Coronary artery disease. 8. Renal colic. 9. History of stent. SOCIAL HISTORY: Smokes 7 cigarettes a day. Denies any alcohol or illicit drug use. FAMILY HISTORY: Denies any cardiac disease. ALLERGIES: NO KNOWN ALLERGIES. MEDICATIONS: 1. Aspirin 81 mg p.o. daily. 2. Doxycycline 100 mg p.o. b.i.d. 3. Humalog 13 units subcu as directed. 4. Ibuprofen 400 mg p.o. q.6 hours as needed for pain. 5. Lantus SoloSTAR 17 units subcu p.m. 6. Metformin 1000 mg p.o. b.i.d. REVIEW OF SYSTEMS: See HPI. RESPIRATORY: Denies any shortness breath, cough, or sputum production. CARDIOVASCULAR: Denies any chest pain, orthopnea, PND, or edema. GASTROINTESTINAL: Denies any dysphagia, abdominal pain, nausea, vomiting, or diarrhea. GENITOURINARY: Denies any dysuria, frequency, or hematuria. MUSCULOSKELETAL: Denies any joint pain or swelling. NEUROPSYCH: Denies any weakness or seizures. All other systems are reviewed and are negative. PHYSICAL EXAMINATION: CONSTITUTIONAL: Resting in bed, appearing in no acute distress. VITAL SIGNS: 98, 103, 18, 160/84, and 99% on room air. SKIN: Intact without rashes or open sores. HEENT: Head is normocephalic and atraumatic. Eyes, pupils are PERRLA. Sclerae anicteric. Mouth and throat: Mucous membranes are intact and moist. NECK: Supple. No lymphadenopathy. No JVD noted. CHEST: Clear to auscultation without wheezes, rhonchi, or rales. HEART: Regular rate and rhythm. Clear S1 and S2. No murmurs, rubs, or gallops. ABDOMEN: Positive bowel sounds. Soft, nontender. No hepatomegaly or splenomegaly noted. NEURO: The patient is alert and oriented x3. Cranial nerves II through XII grossly intact without focal deficits. LABORATORY DATA: WBC 10.7, hemoglobin 14.7, hematocrit 44.6, and platelets 240. Sodium is 139, potassium 4.2, chloride is 103, bicarb is 26, BUN is 20, creatinine 0.99, and magnesium is 1.5. Coronavirus PCR is negative. ASSESSMENT AND PLAN: 55-year-old man, who is being admitted with cellulitis with no sepsis. 1. Cellulitis. Failed outpatient treatment with Keflex, Levaquin, and doxycycline. We will start vancomycin and Zosyn, ID to follow. CT of the foot does not show any foreign body or abscess. 2. Diabetes mellitus. Sliding scale, ADA diet. Continue metformin and long-acting insulin. 3. History of coronary artery disease. Continue aspirin. 4. Hypomagnesemia. Repleted in the ER. 5. Smoker. Discussed smoking cessation. Nicotine replacement therapy. 6. Deep vein thrombosis prophylaxis with Lovenox. 7. Case discussed with Dr. Cast. 8. Full code. PARKER Capellan JR/ILIA / [id number]
[2020-09-11] MEDS: Insulin Lispro 100 UNIT/ML 3 ML VIAL SUBCUT ×2 (11:37→21:11)
[2020-09-11 11:56] LABS: Glucose, Whole Blood 209 mg/dL (60-115)
[2020-09-11 15:50] LABS: Uric Acid 4.1 mg/dL (3.4-7.0)
--- NOTE | 2020-09-11 16:17 | W.PM.IDCN ---
History of Present Illness Data of Consult Service Date: 09/11/20 Requesting physician: Hallie Petersen Primary Care Provider: None Physician HPI Reason for consult: foot pain He presents to hospital with left foot pain for two weeks He has reddened foot and was started on po Doxycycline for a week and Levaquin for a week with no improvement He had one month ago stepped on nail and punctured plantar surface of foot He has had pain near heel and has left great toe discomfort as well He does eat fatty foods and has no h/o gout or family history Review of Systems Review of Systems: Yes all other systems are reviewed and are negative [facility] Past Medical History Medical History Alcohol abuse Arthritis Atypical chest pain CAD (coronary artery disease) Diabetes Failure of outpatient treatment Hypertension Increased BMI Kidney calculus Pancreatitis Family History Family history: reviewed and not pertinent Surgical History Surgical History Hx of heart artery stent Status post laparoscopic cholecystectomy Social History Social History Household Members: Family Housing: House Alcohol intake: never Smoking Status: Current every day smoker Tobacco Type: Cigarette Cigarettes Per Day: 7 Years Smoked: 28 Second Hand Smoke Exposure: Yes Substance Use Type: Marijuana Advance Directives: No Advance Directives Information Provided: No service: No Current occupational status: employed Meds Allergies Allergy/AdvReac Type Severity Reaction Status Date / Time No Known Allergies Allergy Verified 09/26/20 19:12 [No Known Allergies*] Home Medications Medication Instructions Recorded Confirmed Type Humalog KwikPen Insulin 15 units SUBCUT DIRECTED 06/21/20 09/26/20 History Lantus Solostar U-100 Insulin 17 unit SUBCUT QPM 06/21/20 09/26/20 History metformin 1,000 mg PO BID 06/21/20 09/26/20 History aspirin 81 mg PO DAILY 09/10/20 09/26/20 History lisinopril 10 mg PO DAILY 09/26/20 09/26/20 History ticagrelor [Brilinta] 60 mg PO DAILY 09/26/20 09/26/20 History Physical Exam Vital Signs: Vital Signs: Last Vital Signs Temp 97.1 F 09/11/20 16:00 Pulse 80 09/11/20 16:00 Resp 18 09/11/20 16:00 BP 156/75 H 09/11/20 16:00 Pulse Ox 98 09/11/20 16:00 Body Mass Index 34.2 Const: General: cooperative HENMT: Head: Yes normal to inspection Mouth: Normal oral and palatal mucosa present Eyes: General: appearance normal, both eyes and all related structures Resp: Effort & Inspection: normal respiratory effort Cardio: Rate: regular rate Rhythm: regular rhythm GI: Palpation (GI): Soft to palpation and not firm Skin: General skin exam: no rashes or lesions noted Extrem: Other: point tenderness right heel Assessment and Plan (1) Cellulitis: Problem details: Area may be abscess Foot area may be gout Status: Acute Check MRI and uric acid Stop antibiotics if no osteomyelitis or abscess Treat gout if MRI unremarkable (2) Failure of outpatient treatment: Results Labs CBC & Chem 7: 09/11/20 06:03 09/14/20 08:52 Labs: Short CBC 09/11/20 Range/Units 06:03 WBC 9.9 (4.8-10.8) X10*3/uL Hgb 13.3 L (14.0-18.0) g/dl Hct 41.1 L (42-52) % Plt Count 209 (160-400) X10*3/uL BMP 09/11/20 06:03 Sodium 139 Potassium 4.3 Chloride 104 Carbon Dioxide 25 BUN 13 Creatinine 0.78 Calcium 8.1 L D Liver Function 09/11/20 Range/Units 06:03 Total Bilirubin 0.3 (0.0-1.0) mg/dL Direct Bilirubin 0.2 (0.0-0.5) mg/dL AST 53 H (5-37) U/L ALT 71 H (0-40) U/L Alkaline Phosphatase 92 (39-117) U/L Albumin 3.4 L (3.5-5.0) g/dL
--- NOTE | 2020-09-11 16:26 | HO.PM.IMPN ---
Subjective Subjective Date of Service: 09/11/20 Interval History: ankle /foot clelulitis Review of Systems Patient has lot of pain in the foot specially in the ankle area, denies any shortness of breath or abdominal pain or fever chills. Physical Exam Vital Signs: Vital Signs: Last Vital Signs Temp 97.1 F 09/11/20 16:00 Pulse 80 09/11/20 16:00 Resp 18 09/11/20 16:00 BP 156/75 H 09/11/20 16:00 Pulse Ox 98 09/11/20 16:00 Body Mass Index 34.2 Physical exam: Cvs: [id number], [id number] , no murmur res: clear to auscultation ,no rhonchii or wheezing abd: no rebound or guarding ,nt, bs present. ext pulses present , no cyanosis ankle pain and erythema neuro: axo3 , nonfocal. Objective Data Current Medications Generic Name Dose Route Start Last Admin Trade Name Freq PRN Reason Stop Dose Admin Acetaminophen 650 mg 09/10/20 19:10 Acetaminophen 325 Mg Tablet PO Q6H PRN Pain, Mild (Pain Scale 1-3) Aspirin 81 mg 09/11/20 09:00 09/11/20 09:42 Aspirin Enteric Coated 81 Mg Tablet. PO 81 mg DAILY SHELLY Administration Gabapentin 600 mg 09/11/20 21:00 Gabapentin 600 Mg Tablet PO TID SHELLY Piperacillin Sod/Tazobactam 50 mls @ 100 mls/hr 09/10/20 19:10 09/11/20 13:31 Sod 3.375 gm/ Sodium Chloride IV Infused Q6H SHELLY Infusion Vancomycin HCl 1,000 mg/ 270 mls @ 270 mls/hr 09/11/20 05:00 09/11/20 06:31 Sodium Chloride IV Infused Q12H SHELLY Infusion Insulin Glargine 17 unit 09/10/20 19:10 09/10/20 19:39 Insulin Glargine,Hum.Rec.Anlog 100 Unit/Ml 10 Ml Vial SUBCUT 17 unit DAILY@1700 SHELLY Administration Insulin Human Lispro 0 unit 09/10/20 21:00 09/11/20 11:37 Insulin Lispro 100 Unit/Ml 3 Ml Vial SUBCUT 4 unit QIDACHS SHELLY Administration Protocol Metformin HCl 1,000 mg 09/10/20 21:00 01/15/21 09:42 Metformin Hcl 1,000 Mg Tablet PO 1,000 mg BID SHELLY Administration Morphine Sulfate 2 mg 09/10/20 21:19 09/11/20 11:37 Morphine Sulfate 2 Mg/Ml Cartridge IVPUSH 2 mg Q4H PRN Administration PAIN Ondansetron HCl 4 mg 09/10/20 19:10 Ondansetron Hcl 4 Mg/2 Ml Vial IVPUSH Q8H PRN Nausea and Vomiting Oxycodone HCl 5 mg 09/10/20 19:10 09/11/20 09:42 Oxycodone Hcl Immed Release 5 Mg Tablet PO 5 mg Q6H PRN Administration PAIN Pharmacy Consult 1 each 09/10/20 14:13 Consult Rx Perform Med Rec MISCELLANE ONCE PRN Consult order Pharmacy Consult 1 each 09/10/20 19:10 Consult Rx Vancomycin Dosing MISCELLANE DAILY PRN Consult order Sodium Chloride 3 ml 09/11/20 00:00 09/11/20 07:28 0.9 % Sodium Chloride Flush 3 Ml Syringe IVFLUSH 3 ml QSHIFT SHELLY Administration Labs CBC & Chem 7: 09/11/20 06:03 09/11/20 06:03 Assessment and Plan (1) Cellulitis: Problem details: Area may be abscess Foot area may be gout Status: Acute (2) Failure of outpatient treatment: Status: Acute Assessment and Plan: 55-year-old man, who is being admitted with cellulitis with no sepsis. 1. Cellulitis. Failed outpatient treatment with Keflex, Levaquin, and doxycycline. cotninue vancomycin and Zosyn, ID to follow. ID recomended -uric acid/mri foot 2. Diabetes mellitus. fs in 140-200's range Sliding scale, ADA diet. Continue metformin and long-acting insulin. 3. History of coronary artery disease. Continue aspirin. 4. Hypomagnesemia. Repleted in the ER, resolved. 5. Smoker. Discussed smoking cessation. Nicotine replacement therapy. 6. Deep vein thrombosis prophylaxis with Lovenox.
[2020-09-11 16:44] LABS: Glucose, Whole Blood 129 mg/dL (60-115)
[2020-09-11] MEDS: vancomycin HCL 1,000 MG in 0.9 % Sodium Chloride 250 ML 250 MG IV (17:54)
[2020-09-11] MEDS: Insulin Glargine,Hum.rec.anlog 100 UNIT/ML 10 ML VIAL 17 UNIT SUBCUT (17:54)
[2020-09-11] MEDS: HYDROmorphone HCl 1 MG/ML SYRINGE IVPUSH (17:55)
[2020-09-11] MEDS: Gabapentin 600 MG TABLET PO (21:11)
[2020-09-11 21:16] LABS: Glucose, Whole Blood 192 mg/dL (60-115)
[2020-09-12] VITALS (9 sets, daily range): BP systolic 139–177; BP diastolic 63–84; PULSE 67–85; RESP 16–18; TEMP 36.1–36.7; O2SAT 95–98
[2020-09-12] MEDS: 0.9 % Sodium Chloride Flush 3 ML SYRINGE IVFLUSH ×4 (01:04→23:06)
[2020-09-12] MEDS: Morphine Sulfate 2 MG/ML CARTRIDGE IVPUSH ×4 (01:06→20:10)
[2020-09-12] MEDS: Piperacillin Sodium/Tazobactam 3.375 GM in 0.9 % Sodium Chloride 50 ML IV ×5 (01:11→23:52)
[2020-09-12] MEDS: oxyCODONE HCl Immed Release 5 MG TABLET PO ×3 (02:58→22:10)
[2020-09-12] MEDS: Acetaminophen 325 MG TABLET 650 MG PO ×2 (03:01→22:10)
[2020-09-12 04:45] LABS: Anion Gap 11 (12-20); Blood Urea Nitrogen 18 mg/dL (9-16); Calcium 8.7 mg/dL (8.4-10.2); Carbon Dioxide 27 mmol/L (22-29); Chloride 102 mmol/L (96-108); Creatinine Clr Calc Pharmacy 117.3; Estimated Glomerular Filt Rate > 60; Glucose Random 142 mg/dL (60-115); Potassium 4.3 mmol/l (3.3-5.1); Sodium 136 mmol/L (135-145); Vancomycin Trough 7.6 mcg/mL (10.0-20.0)
--- NOTE | 2020-09-12 07:31 | PC.NURSE ---
0500; Vancomycin trough low at 7.6, patient currently on vancomycin 1,000mg q12h. Notified hospitalist via [employer]. increased vancomycin dose to 1,250mg q12h. Next scheduled dose due at 0530, at 0600 spoke with pharmacy, as the dose is a pharmacy mixed dose. Awaiting pharmacy to bring medication to floor, day shift RN made aware.
[2020-09-12] MEDS: Gabapentin 600 MG TABLET PO ×3 (07:43→20:12)
[2020-09-12] MEDS: vancomycin HCL 1,250 MG in 0.9 % Sodium Chloride 250 ML 183.33 MG IV ×2 (07:43→20:24)
[2020-09-12] MEDS: metFORMIN HCl 1,000 MG TABLET 1000 MG PO ×2 (07:43→20:12)
[2020-09-12] MEDS: Aspirin Enteric Coated 81 MG TABLET.DR PO (07:43)
[2020-09-12 07:58] LABS: Glucose, Whole Blood 107 mg/dL (60-115)
[2020-09-12 08:39] LABS: Alanine Aminotransferase 82 U/L (0-40); Albumin Level 3.6 g/dL (3.5-5.0); Alkaline Phosphatase 105 U/L (39-117); Aspartate Amino Transferase 50 U/L (5-37); Bilirubin Direct 0.2 mg/dL (0.0-0.5); Bilirubin Total 0.2 mg/dL (0.0-1.0); Total Protein 6.5 g/dL (6.5-8.0)
[2020-09-12 12:12] LABS: Glucose, Whole Blood 161 mg/dL (60-115)
[2020-09-12] MEDS: Insulin Lispro 100 UNIT/ML 3 ML VIAL SUBCUT ×3 (12:31→20:16)
[2020-09-12] MEDS: Ibuprofen 400 MG TABLET PO (12:37)
--- NOTE | 2020-09-12 14:56 | HO.PM.IMPN ---
Subjective Subjective Date of Service: 09/12/20 Interval History: foot pain- still has ankle pain , denies any abd pain or sob or nause aor vomiting or fever. Physical Exam Vital Signs: Vital Signs: Last Vital Signs Temp 98.0 F 09/12/20 11:35 Pulse 75 09/12/20 11:35 Resp 16 09/12/20 11:35 BP 148/84 H 09/12/20 11:35 Pulse Ox 98 09/12/20 11:35 Body Mass Index 34.2 Physical exam: Cvs: [id number], [id number] , no murmur res: clear to auscultation ,no rhonchii or wheezing abd: no rebound or guarding ,nt, bs present. ext pulses present , no cyanosis ankle pain and erythema neuro: axo3 , nonfocal. Objective Data Current Medications Generic Name Dose Route Start Last Admin Trade Name Freq PRN Reason Stop Dose Admin Acetaminophen 650 mg 09/10/20 19:10 09/12/20 03:01 Acetaminophen 325 Mg Tablet PO 650 mg Q6H PRN Administration Pain, Mild (Pain Scale 1-3) Aspirin 81 mg 09/11/20 09:00 09/12/20 07:43 Aspirin Enteric Coated 81 Mg Tablet.Dr PO 81 mg DAILY SHELLY Administration Gabapentin 600 mg 09/11/20 21:00 09/12/20 14:20 Gabapentin 600 Mg Tablet PO 600 mg TID SHELLY Administration Piperacillin Sod/Tazobactam 50 mls @ 100 mls/hr 09/10/20 19:10 09/12/20 13:02 Sod 3.375 gm/ Sodium Chloride IV Infused Q6H SHELLY Infusion Vancomycin HCl 1,250 mg/ 275 mls @ 183.333 mls/hr 09/12/20 20:00 Sodium Chloride IV Q12H SHELLY Ibuprofen 400 mg 09/12/20 08:15 09/12/20 12:37 Ibuprofen 400 Mg Tablet PO 400 mg Q6H PRN Administration Pain, Mild (Pain Scale 1-3) Insulin Glargine 17 unit 09/10/20 19:10 09/11/20 17:54 Insulin Glargine,Hum.Rec.Anlog 100 Unit/Ml 10 Ml Vial SUBCUT 17 unit DAILY@1700 SHELLY Administration Insulin Human Lispro 0 unit 09/10/20 21:00 09/12/20 12:31 Insulin Lispro 100 Unit/Ml 3 Ml Vial SUBCUT 2 unit QIDACHS SHELLY Administration Protocol Metformin HCl 1,000 mg 09/10/20 21:00 09/12/20 07:43 Metformin Hcl 1,000 Mg Tablet PO 1,000 mg BID SHELLY Administration Morphine Sulfate 2 mg 09/10/20 21:19 09/12/20 09:55 Morphine Sulfate 2 Mg/Ml Cartridge IVPUSH 2 mg Q4H PRN Administration PAIN Ondansetron HCl 4 mg 09/10/20 19:10 Ondansetron Hcl 4 Mg/2 Ml Vial IVPUSH Q8H PRN Nausea and Vomiting Oxycodone HCl 5 mg 09/10/20 19:10 09/12/20 14:20 Oxycodone Hcl Immed Release 5 Mg Tablet PO 5 mg Q6H PRN Administration PAIN Pharmacy Consult 1 each 09/10/20 14:13 Consult Rx Perform Med Rec MISCELLANE ONCE PRN Consult order Pharmacy Consult 1 each 09/10/20 19:10 Consult Rx Vancomycin Dosing MISCELLANE DAILY PRN Consult order Sodium Chloride 3 ml 09/11/20 00:00 09/12/20 07:40 0.9 % Sodium Chloride Flush 3 Ml Syringe IVFLUSH 3 ml QSHIFT SHELLY Administration Labs CBC & Chem 7: 09/11/20 06:03 09/12/20 03:53 Microbiology Microbiology Results: Microbiology 09/10/20 14:27 Blood - Venous Blood Culture - Preliminary No growth after 24 hours. 09/10/20 14:24 Blood - Venous Blood Culture - Preliminary No growth after 24 hours. Assessment and Plan (1) Cellulitis: Problem details: Area may be abscess Foot area may be gout Status: Acute (2) Failure of outpatient treatment: Status: Acute Assessment and Plan: 55-year-old man, who is being admitted with cellulitis with no sepsis. 1. Cellulitis. Failed outpatient treatment with Keflex, Levaquin, and doxycycline. uric acid normal, blood culture neg@24hrs mri foot -planter fascitis /achillis tendnosis continue vancomycin and Zosyn, vanco trough, will add ibuprofen fascitis . ID fu 2. Diabetes mellitus. fs in 140-190's range Sliding scale, ADA diet. Continue metformin and long-acting insulin. 3. History of coronary artery disease. Continue aspirin. 4. Hypomagnesemia. Repleted in the ER, resolved. 5. Smoker. Discussed smoking cessation. Nicotine replacement therapy. 6. Deep vein thrombosis prophylaxis with Lovenox.
[2020-09-12 16:37] LABS: Glucose, Whole Blood 245 mg/dL (60-115)
[2020-09-12] MEDS: Insulin Glargine,Hum.rec.anlog 100 UNIT/ML 10 ML VIAL 17 UNIT SUBCUT (16:51)
[2020-09-12 20:14] LABS: Glucose, Whole Blood 187 mg/dL (60-115)
[2020-09-13] VITALS (7 sets, daily range): BP systolic 157–177; BP diastolic 64–97; PULSE 64–79; RESP 15–20; TEMP 36.1–37.1; O2SAT 97–100
[2020-09-13] MEDS: oxyCODONE HCl Immed Release 5 MG TABLET PO ×3 (04:22→19:56)
[2020-09-13] MEDS: Acetaminophen 325 MG TABLET 650 MG PO ×3 (04:22→19:57)
[2020-09-13 07:14] LABS: Anion Gap 13 (12-20); Blood Urea Nitrogen 15 mg/dL (9-16); Calcium 9.1 mg/dL (8.4-10.2); Carbon Dioxide 28 mmol/L (22-29); Chloride 100 mmol/L (96-108); Estimated Glomerular Filt Rate > 60; Glucose Random 189 mg/dL (60-115); Potassium 4.6 mmol/l (3.3-5.1); Sodium 136 mmol/L (135-145)
[2020-09-13] MEDS: metFORMIN HCl 1,000 MG TABLET 1000 MG PO ×2 (08:07→21:10)
[2020-09-13] MEDS: Gabapentin 600 MG TABLET PO ×3 (08:07→21:10)
[2020-09-13] MEDS: Aspirin Enteric Coated 81 MG TABLET.DR PO (08:07)
[2020-09-13] MEDS: Piperacillin Sodium/Tazobactam 3.375 GM in 0.9 % Sodium Chloride 50 ML IV ×3 (08:08→19:57)
[2020-09-13] MEDS: Insulin Lispro 100 UNIT/ML 3 ML VIAL SUBCUT ×3 (08:08→21:10)
[2020-09-13] MEDS: 0.9 % Sodium Chloride Flush 3 ML SYRINGE IVFLUSH ×3 (08:09→21:11)
[2020-09-13] MEDS: Morphine Sulfate 2 MG/ML CARTRIDGE IVPUSH (08:13)
[2020-09-13 08:33] LABS: Glucose, Whole Blood 170 mg/dL (60-115)
[2020-09-13] MEDS: vancomycin HCL 1,250 MG in 0.9 % Sodium Chloride 250 ML 183.33 MG IV (09:00)
[2020-09-13 12:04] LABS: Glucose, Whole Blood 144 mg/dL (60-115)
--- NOTE | 2020-09-13 13:36 | HO.PM.IMPN ---
Subjective Subjective Date of Service: 09/14/20 Interval History: foot cellulitis Review of Systems Patient still has significant foot pain, denies any chest pain or shortness of breath or abdominal pain or fever or chills . Physical Exam Vital Signs: Vital Signs: Last Vital Signs Temp 98.1 F 09/13/20 11:25 Pulse 79 09/13/20 11:25 Resp 18 09/13/20 11:25 BP 169/90 H 09/13/20 11:25 Pulse Ox 98 09/13/20 11:25 Body Mass Index 34.2 Physical exam: Cvs: [id number], [id number] , no murmur res: clear to auscultation ,no rhonchii or wheezing abd: no rebound or guarding ,nt, bs present. ext pulses present , no cyanosis ankle pain and erythema-somewhat ? improving neuro: axo3 , nonfocal. Objective Data Current Medications Generic Name Dose Route Start Last Admin Trade Name Freq PRN Reason Stop Dose Admin Acetaminophen 650 mg 09/10/20 19:10 09/13/20 12:47 Acetaminophen 325 Mg Tablet PO 650 mg Q6H PRN Administration Pain, Mild (Pain Scale 1-3) Aspirin 81 mg 09/11/20 09:00 09/13/20 08:07 Aspirin Enteric Coated 81 Mg Tablet. PO 81 mg DAILY SHELLY Administration Gabapentin 600 mg 09/11/20 21:00 09/13/20 08:07 Gabapentin 600 Mg Tablet PO 600 mg TID SHELLY Administration Piperacillin Sod/Tazobactam 50 mls @ 100 mls/hr 09/10/20 19:10 09/13/20 12:47 Sod 3.375 gm/ Sodium Chloride IV 100 mls/hr Q6H SHELLY Administration Vancomycin HCl 1,250 mg/ 275 mls @ 183.333 mls/hr 09/12/20 20:00 09/13/20 11:06 Sodium Chloride IV Infused Q12H SHELLY Infusion Ibuprofen 400 mg 09/12/20 08:15 09/12/20 12:37 Ibuprofen 400 Mg Tablet PO 400 mg Q6H PRN Administration Pain, Mild (Pain Scale 1-3) Insulin Glargine 17 unit 09/10/20 19:10 09/12/20 16:51 Insulin Glargine,Hum.Rec.Anlog 100 Unit/Ml 10 Ml Vial SUBCUT 17 unit DAILY@1700 SHELLY Administration Insulin Human Lispro 0 unit 09/10/20 21:00 09/13/20 11:45 Insulin Lispro 100 Unit/Ml 3 Ml Vial SUBCUT Not Given QIDACHS [facility] Protocol Metformin HCl 1,000 mg 09/10/20 21:00 09/13/20 08:07 Metformin Hcl 1,000 Mg Tablet PO 1,000 mg BID SHELLY Administration Morphine Sulfate 2 mg 09/10/20 21:19 09/13/20 08:13 Morphine Sulfate 2 Mg/Ml Cartridge IVPUSH 2 mg Q4H PRN Administration PAIN Ondansetron HCl 4 mg 09/10/20 19:10 Ondansetron Hcl 4 Mg/2 Ml Vial IVPUSH Q8H PRN Nausea and Vomiting Oxycodone HCl 5 mg 09/10/20 19:10 09/13/20 12:47 Oxycodone Hcl Immed Release 5 Mg Tablet PO 5 mg Q6H PRN Administration PAIN Pharmacy Consult 1 each 09/10/20 14:13 Consult Rx Perform Med Rec MISCELLANE ONCE PRN Consult order Pharmacy Consult 1 each 09/10/20 19:10 Consult Rx Vancomycin Dosing MISCELLANE DAILY PRN Consult order Sodium Chloride 3 ml 09/11/20 00:00 09/13/20 08:09 0.9 % Sodium Chloride Flush 3 Ml Syringe IVFLUSH 3 ml QSHIFT [facility] Administration Labs CBC & Chem 7: 09/11/20 06:03 09/14/20 08:52 Microbiology Microbiology Results: Microbiology 09/10/20 14:27 Blood - Venous Blood Culture - Preliminary No growth after 48 hours. 09/10/20 14:24 Blood - Venous Blood Culture - Preliminary No growth after 48 hours. Assessment and Plan (1) Cellulitis: Problem details: Area may be abscess Foot area may be gout Status: Acute (2) Failure of outpatient treatment: Status: Acute Assessment and Plan: 55-year-old man, who is being admitted with cellulitis with no sepsis. 1. Cellulitis. Failed outpatient treatment with Keflex, Levaquin, and doxycycline. uric acid normal, blood culture neg@24hrs mri foot -planter fascitis /achillis tendnosis continue vancomycin and Zosyn day2 , vanco trough: 7.5 , ibuprofen for fascitis . ID fu-may need to DC antibiotic since MRI does not show osteo/cellulitis-may need treatment with pain control with ibuprofen. May need PT evaluation in the morning. 2. Diabetes mellitus. fs in 140-190's range Sliding scale, ADA diet. Continue metformin and long-acting insulin. 3. History of coronary artery disease. Continue aspirin. 4. Hypomagnesemia. Repleted in the ER, resolved. 5. Smoker. Discussed smoking cessation. Nicotine replacement therapy. 6. Deep vein thrombosis prophylaxis with Lovenox.
[2020-09-13 16:18] LABS: Glucose, Whole Blood 160 mg/dL (60-115)
[2020-09-13] MEDS: Insulin Glargine,Hum.rec.anlog 100 UNIT/ML 10 ML VIAL 17 UNIT SUBCUT (17:16)
[2020-09-13 20:06] LABS: Vancomycin Trough 8.3 mcg/mL (10.0-20.0)
[2020-09-13 20:30] LABS: Glucose, Whole Blood 168 mg/dL (60-115)
[2020-09-14] MEDS: Piperacillin Sodium/Tazobactam 3.375 GM in 0.9 % Sodium Chloride 50 ML IV (01:29)
[2020-09-14] MEDS: oxyCODONE HCl Immed Release 5 MG TABLET PO ×3 (02:00→15:57)
[2020-09-14 03:12] VITALS: BP 156/86; PULSE 78; RESP 20; TEMP 37; O2SAT 98
[2020-09-14] MEDS: Morphine Sulfate 2 MG/ML CARTRIDGE IVPUSH (06:20)
[2020-09-14 07:23] VITALS: BP 156/87; PULSE 75; RESP 18; TEMP 37.1; O2SAT 98
[2020-09-14 07:32] LABS: Glucose, Whole Blood 127 mg/dL (60-115)
[2020-09-14 09:55] LABS: Anion Gap 16 (12-20); Blood Urea Nitrogen 16 mg/dL (9-16); Carbon Dioxide 28 mmol/L (22-29); Chloride 98 mmol/L (96-108); Creatinine Clr Calc Pharmacy 120.1; Estimated Glomerular Filt Rate > 60; Glucose Random 164 mg/dL (60-115); Potassium 4.8 mmol/l (3.3-5.1); Sodium 137 mmol/L (135-145)
[2020-09-14 10:02] LABS: Calcium 9.9 mg/dL (8.4-10.2)
[2020-09-14] MEDS: metFORMIN HCl 1,000 MG TABLET 1000 MG PO (10:35)
[2020-09-14] MEDS: Gabapentin 600 MG TABLET PO ×2 (10:36→15:57)
[2020-09-14] MEDS: 0.9 % Sodium Chloride Flush 3 ML SYRINGE IVFLUSH (10:36)
[2020-09-14] MEDS: Aspirin Enteric Coated 81 MG TABLET.DR PO (10:36)
[2020-09-14 11:00] VITALS: BP 159/68; PULSE 79; RESP 18; TEMP 37.2; O2SAT 99
[2020-09-14 11:34] LABS: Glucose, Whole Blood 160 mg/dL (60-115)
[2020-09-14] MEDS: Insulin Lispro 100 UNIT/ML 3 ML VIAL SUBCUT (12:14)
--- NOTE | 2020-09-14 14:30 | P.DS_ITS ---
DS: Providers Provider Date of Service: 09/24/20 Date of admission: 09/10/20 19:09 Primary care physician: None Physician Consults: 09/10/20 19:09 Consult to Infectious Diseases Routine Consulting Provider: Fannie Stoner Reason for consultation: CELLULITIS, FAILED OUTPATIENT [place] Has provider been notified: No DS: Diagnosis Discharge Diagnosis (1) Cellulitis: Status: Acute Problem details: Area may be abscess Foot area may be gout DS: Medications Discharge Medications Home Medications: Home Medications Medication Instructions Recorded Confirmed Humalog KwikPen Insulin 13 units SUBCUT DIRECTED 06/21/20 09/10/20 Lantus Solostar U-100 Insulin 17 unit SUBCUT QPM 06/21/20 09/10/20 metformin 1,000 mg PO BID 06/21/20 09/10/20 aspirin 81 mg PO DAILY 09/10/20 09/10/20 gabapentin 300 mg PO TID 09/11/20 09/11/20 Previous Rx's Medication Instructions Recorded ibuprofen 400 mg PO Q6H PRN #20 tab 06/21/20 doxycycline monohydrate 100 mg PO BID 10 Days #20 cap 09/08/20 oxycodone 5 mg PO Q8H PRN #10 cap 09/14/20 DS: Summary Hospital Course Hospital Course: 55-year-old man with multiple medical problems, presents to the ER with complaints of worsening left foot pain, swelling, and redness. 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 He presented to the ER, had a foot x-ray which was negative for any foreign body and was placed on Keflex and Levaquin for 7 days. He reported that he completed the course of Levaquin, but not Keflex and was again seen in the ER on September 08. At that time, he was told by the ER provider to stop the Keflex and Levaquin and was started on doxycycline. He did take 2 full doses of doxycycline, however he continued to feel like he was not getting better. He did report some fever and chills at home. He denied nausea, vomiting, diarrhea, or open wounds or drainage. He does have a history of diabetes mellitus. In the ER, he was not noted to have any fever or leukocytosis. He was given morphine, ceftriaxone, vancomycin, and magnesium. He will be admitted for further management and treatment of failed outpatient treatment of cellulitis. Hospital Course problem oro section: 55-year-old man, who is being admitted with cellulitis with no sepsis. 1. Plantar fasciitis: Initially patient was admitted for cellulitis-subsequently patient was started on IV vancomycin and Zosyn , oxycodone for pain control, ibuprofen and Tylenol and blood cultures sent. Patient's uric acid normal Blood culture prelim negative. The seen by infectious disease: MRI was done-shows plantar fasciitis rather than osteo/cellulitis : Subsequently discussed with the infectious disease and antibiotic was discontinued and patient is going home with NSAIDs and oxycodone. Also given bowel regimen laxatives. Patient was told if pain worsens or any fever or any new symptoms come to the nearest emergency room. Patient is to make his own appointment. PT evaluation pending Above management discussed with the patient in detail length he understand and in agreement with the above plan, time spent 50 minutes and 50% time spent on counseling. Significant findings: As above. Procedures performed: None. Treatment and response: As above. Complications: None. Time Spent with Patient Time attestation: Total time spent providing and/or coordinating discharge services: Discharge coordination time: Greater than 30 minutes Physical Exam Vital Signs: Vital Signs: Last Vital Signs Temp 98.9 F 09/14/20 11:00 Pulse 79 09/14/20 11:00 Resp 18 09/14/20 11:00 BP 159/68 H 09/14/20 11:00 Pulse Ox 99 09/14/20 11:00 Body Mass Index 34.2 Physical exam: Constitutional: Not in acute distress. Cvs: rrr, [id number] , no murmur res: clear to auscultation ,no rhonchii or wheezing abd: no rebound or guarding ,nt, bs present. ext pulses present , no cyanosis right foot pain-seems improving no flacutation neuro: axo3 , nonfocal. DS: Data Data Completed and Pending Completed studies during hospitalization [Text1]: Procedures Dilation of Right Ureter with Intraluminal Device, Via Natural or Artificial Opening Endoscopic (06/21/20) Extirpation of Matter from Right Ureter, Via Natural or Artificial Opening Endoscopic (06/21/20) Fluoroscopy of Right Kidney, Ureter and Bladder (06/21/20) Labs on day of discharge: Laboratory Tests 09/10/20 09/10/20 09/10/20 14:23 14:23 14:23 WBC 10.7 RBC 5.22 Hgb 14.7 Hct 44.6 MCV 85.4 MCH 28.2 MCHC 33.0 RDW 13.5 Plt Count 240 MPV 10.9 Immature Gran % (Auto) 0.5 H Neut % (Auto) 60.1 Lymph % (Auto) 25.5 [place] % (Auto) 8.0 Eos % (Auto) 5.2 H Baso % (Auto) 0.7 Lymph # (Auto) 2.7 [place] # (Auto) 0.9 Eos # (Auto) 0.6 H Baso # (Auto) 0.1 Abs Immat Gran (auto) 0.05 H Absolute Neuts (auto) 6.4 Absolute Nucleated RBC 0.000 Nucleated RBC % (auto) 0.0 ESR PT 12.8 INR 1.1 Sodium 139 Potassium 4.2 Chloride 103 Carbon Dioxide 26 Anion Gap 14 BUN 20 H Creatinine 0.99 Estim Creat Clear Calc 101.9 Estimated GFR > 60 POC Glucose Random Glucose 299 H Lactic Acid Uric Acid Calcium 8.7 D Magnesium 1.5 L Total Bilirubin Direct Bilirubin AST ALT Alkaline Phosphatase Total Creatine Kinase Total Protein Albumin Vancomycin Trough Coronavirus (PCR) Influenza Type A (PCR) Influenza Type B (PCR) RSV RNA Qual (PCR) 09/10/20 09/10/20 09/10/20 14:23 14:23 14:23 WBC RBC Hgb Hct MCV MCH MCHC RDW Plt Count MPV Immature Gran % (Auto) Neut % (Auto) Lymph % (Auto) [place] % (Auto) Eos % (Auto) Baso % (Auto) Lymph # (Auto) [place] # (Auto) Eos # (Auto) Baso # (Auto) Abs Immat Gran (auto) Absolute Neuts (auto) Absolute Nucleated RBC Nucleated RBC % (auto) ESR 19 H PT INR Sodium Potassium Chloride Carbon Dioxide Anion Gap BUN Creatinine Estim Creat Clear Calc Estimated GFR POC Glucose Random Glucose Lactic Acid 1.5 Uric Acid Calcium Magnesium Total Bilirubin Direct Bilirubin AST ALT Alkaline Phosphatase Total Creatine Kinase Total Protein Albumin Vancomycin Trough Coronavirus (PCR) NEGATIVE Influenza Type A (PCR) NEGATIVE Influenza Type B (PCR) NEGATIVE RSV RNA Qual (PCR) NEGATIVE 09/10/20 09/10/20 09/11/20 14:23 21:08 06:03 WBC 9.9 RBC 4.81 Hgb 13.3 L Hct 41.1 L MCV 85.4 MCH 27.7 MCHC 32.4 RDW 13.4 Plt Count 209 MPV 10.9 Immature Gran % (Auto) 0.6 H Neut % (Auto) 58.5 Lymph % (Auto) 24.4 [place] % (Auto) 9.3 Eos % (Auto) 6.4 H Baso % (Auto) 0.8 Lymph # (Auto) 2.4 [place] # (Auto) 0.9 Eos # (Auto) 0.6 H Baso # (Auto) 0.1 Abs Immat Gran (auto) 0.06 H Absolute Neuts (auto) 5.8 Absolute Nucleated RBC 0.000 Nucleated RBC % (auto) 0.0 ESR PT INR Sodium Potassium Chloride Carbon Dioxide Anion Gap BUN Creatinine Estim Creat Clear Calc Estimated GFR POC Glucose 237 H Random Glucose Lactic Acid Uric Acid Calcium Magnesium Total Bilirubin Direct Bilirubin AST ALT Alkaline Phosphatase Total Creatine Kinase 193 H Total Protein Albumin Vancomycin Trough Coronavirus (PCR) Influenza Type A (PCR) Influenza Type B (PCR) RSV RNA Qual (PCR) 09/11/20 09/11/20 09/11/20 06:03 07:05 11:20 WBC RBC Hgb Hct MCV MCH MCHC RDW Plt Count MPV Immature Gran % (Auto) Neut % (Auto) Lymph % (Auto) [place] % (Auto) Eos % (Auto) Baso % (Auto) Lymph # (Auto) [place] # (Auto) Eos # (Auto) Baso # (Auto) Abs Immat Gran (auto) Absolute Neuts (auto) Absolute Nucleated RBC Nucleated RBC % (auto) ESR PT INR Sodium 139 Potassium 4.3 Chloride 104 Carbon Dioxide 25 Anion Gap 14 BUN 13 Creatinine 0.78 Estim Creat Clear Calc 129.4 Estimated GFR > 60 POC Glucose 143 H 209 H Random Glucose 144 H D Lactic Acid Uric Acid Calcium 8.1 L D Magnesium 1.8 Total Bilirubin 0.3 Direct Bilirubin 0.2 AST 53 H ALT 71 H Alkaline Phosphatase 92 Total Creatine Kinase Total Protein 6.2 L Albumin 3.4 L Vancomycin Trough Coronavirus (PCR) Influenza Type A (PCR) Influenza Type B (PCR) RSV RNA Qual (PCR) 01/09/11/20 09/11/20 15:05 16:35 20:56 WBC RBC Hgb Hct MCV MCH MCHC RDW Plt Count MPV Immature Gran % (Auto) Neut % (Auto) Lymph % (Auto) [place] % (Auto) Eos % (Auto) Baso % (Auto) Lymph # (Auto) [place] # (Auto) Eos # (Auto) Baso # (Auto) Abs Immat Gran (auto) Absolute Neuts (auto) Absolute Nucleated RBC Nucleated RBC % (auto) ESR PT INR Sodium Potassium Chloride Carbon Dioxide Anion Gap BUN Creatinine Estim Creat Clear Calc Estimated GFR POC Glucose 129 H 192 H Random Glucose Lactic Acid Uric Acid 4.1 Calcium Magnesium Total Bilirubin Direct Bilirubin AST ALT Alkaline Phosphatase Total Creatine Kinase Total Protein Albumin Vancomycin Trough Coronavirus (PCR) Influenza Type A (PCR) Influenza Type B (PCR) RSV RNA Qual (PCR) 09/12/20 09/12/20 09/12/20 03:53 03:53 07:28 WBC RBC Hgb Hct MCV MCH MCHC RDW Plt Count MPV Immature Gran % (Auto) Neut % (Auto) Lymph % (Auto) [place] % (Auto) Eos % (Auto) Baso % (Auto) Lymph # (Auto) [place] # (Auto) Eos # (Auto) Baso # (Auto) Abs Immat Gran (auto) Absolute Neuts (auto) Absolute Nucleated RBC Nucleated RBC % (auto) ESR PT INR Sodium 136 Potassium 4.3 Chloride 102 Carbon Dioxide 27 Anion Gap 11 L BUN 18 H Creatinine 0.86 Estim Creat Clear Calc 117.3 Estimated GFR > 60 POC Glucose 107 Random Glucose 142 H Lactic Acid Uric Acid Calcium 8.7 D Magnesium Total Bilirubin 0.2 Direct Bilirubin 0.2 AST 50 H ALT 82 H Alkaline Phosphatase 105 Total Creatine Kinase Total Protein 6.5 Albumin 3.6 Vancomycin Trough 7.6 L Coronavirus (PCR) Influenza Type A (PCR) Influenza Type B (PCR) RSV RNA Qual (PCR) 09/12/20 09/12/20 09/12/20 11:32 16:33 20:09 WBC RBC Hgb Hct MCV MCH MCHC RDW Plt Count MPV Immature Gran % (Auto) Neut % (Auto) Lymph % (Auto) [place] % (Auto) Eos % (Auto) Baso % (Auto) Lymph # (Auto) [place] # (Auto) Eos # (Auto) Baso # (Auto) Abs Immat Gran (auto) Absolute Neuts (auto) Absolute Nucleated RBC Nucleated RBC % (auto) ESR PT INR Sodium Potassium Chloride Carbon Dioxide Anion Gap BUN Creatinine Estim Creat Clear Calc Estimated GFR POC Glucose 161 H 245 H 187 H Random Glucose Lactic Acid Uric Acid Calcium Magnesium Total Bilirubin Direct Bilirubin AST ALT Alkaline Phosphatase Total Creatine Kinase Total Protein Albumin Vancomycin Trough Coronavirus (PCR) Influenza Type A (PCR) Influenza Type B (PCR) RSV RNA Qual (PCR) 09/13/20 09/13/20 09/13/20 06:21 07:24 11:23 WBC RBC Hgb Hct MCV MCH MCHC RDW Plt Count MPV Immature Gran % (Auto) Neut % (Auto) Lymph % (Auto) [place] % (Auto) Eos % (Auto) Baso % (Auto) Lymph # (Auto) [place] # (Auto) Eos # (Auto) Baso # (Auto) Abs Immat Gran (auto) Absolute Neuts (auto) Absolute Nucleated RBC Nucleated RBC % (auto) ESR PT INR Sodium 136 Potassium 4.6 Chloride 100 Carbon Dioxide 28 Anion Gap 13 BUN 15 Creatinine 0.77 Estim Creat Clear Calc 131.0 Estimated GFR > 60 POC Glucose 170 H 144 H Random Glucose 189 H Lactic Acid Uric Acid Calcium 9.1 Magnesium Total Bilirubin Direct Bilirubin AST ALT Alkaline Phosphatase Total Creatine Kinase Total Protein Albumin Vancomycin Trough Coronavirus (PCR) Influenza Type A (PCR) Influenza Type B (PCR) RSV RNA Qual (PCR) 09/13/20 09/13/20 09/13/20 16:14 18:54 20:13 WBC RBC Hgb Hct MCV MCH MCHC RDW Plt Count MPV Immature Gran % (Auto) Neut % (Auto) Lymph % (Auto) [place] % (Auto) Eos % (Auto) Baso % (Auto) Lymph # (Auto) [place] # (Auto) Eos # (Auto) Baso # (Auto) Abs Immat Gran (auto) Absolute Neuts (auto) Absolute Nucleated RBC Nucleated RBC % (auto) ESR PT INR Sodium Potassium Chloride Carbon Dioxide Anion Gap BUN Creatinine Estim Creat Clear Calc Estimated GFR POC Glucose 160 H 168 H Random Glucose Lactic Acid Uric Acid Calcium Magnesium Total Bilirubin Direct Bilirubin AST ALT Alkaline Phosphatase Total Creatine Kinase Total Protein Albumin Vancomycin Trough 8.3 L Coronavirus (PCR) Influenza Type A (PCR) Influenza Type B (PCR) RSV RNA Qual (PCR) 09/14/20 09/14/20 09/14/20 07:27 08:52 11:04 WBC RBC Hgb Hct MCV MCH MCHC RDW Plt Count MPV Immature Gran % (Auto) Neut % (Auto) Lymph % (Auto) [place] % (Auto) Eos % (Auto) Baso % (Auto) Lymph # (Auto) [place] # (Auto) Eos # (Auto) Baso # (Auto) Abs Immat Gran (auto) Absolute Neuts (auto) Absolute Nucleated RBC Nucleated RBC % (auto) ESR PT INR Sodium 137 Potassium 4.8 Chloride 98 Carbon Dioxide 28 Anion Gap 16 BUN 16 Creatinine 0.84 Estim Creat Clear Calc 120.1 Estimated GFR > 60 POC Glucose 127 H 160 H Random Glucose 164 H Lactic Acid Uric Acid Calcium 9.9 D Magnesium Total Bilirubin Direct Bilirubin AST ALT Alkaline Phosphatase Total Creatine Kinase Total Protein Albumin Vancomycin Trough Coronavirus (PCR) Influenza Type A (PCR) Influenza Type B (PCR) RSV RNA Qual (PCR) Preliminary micro results at discharge 09/10/20 14:27 Blood Culture - Preliminary Blood - Venous No growth after 48 hours. 09/10/20 14:24 Blood Culture - Preliminary Blood - Venous No growth after 48 hours. Discharge Plan Discharge Patient Disposition: Home, Self-Care Referrals: Physician,None [Primary Care Provider] - Discharge Medications: New acetaminophen 325 mg Tablet 650 mg PO Q6H PRN (Reason: Pain, Mild (Pain Scale 1-3)) Qty: 30 RF: 0 oxycodone 5 mg capsule 5 mg PO Q8H PRN (Reason: pain) Qty: 10 RF: 0 (DME) Ultra-Light Rollator Misc See Rx Instructions .ROUTE .MEDSUPPLY Qty: 1 RF: 0 docusate sodium [Colace] 100 mg capsule 100 mg PO DAILY Qty: 30 RF: 0 senna 8.6 mg capsule 8.6 mg PO BEDTIME Qty: 30 RF: 0 Continued ibuprofen 400 mg tablet 400 mg PO Q6H PRN (Reason: pain) Qty: 20 RF: 0 metformin 1,000 mg Tablet 1,000 mg PO BID RF: 0 Lantus Solostar U-100 Insulin 100 unit/mL (3 mL) Insulin Pen 17 unit SUBCUT QPM RF: 0 Humalog KwikPen Insulin 13 units subcut DIRECTED RF: 0 aspirin 81 mg Tablet,Delayed Release (Dr/Ec) 81 mg PO DAILY RF: 0 gabapentin 300 mg Capsule 300 mg PO TID Qty: 30 RF: 0 Discontinued doxycycline monohydrate 100 mg capsule 100 mg PO BID 10 Days Qty: 20 RF: 0 Discharge Orders: Discharge Order (Routine); Ordered 09/14/20 Ordered By: Hallie Petersen Diet: advance to usual diet and diabetic diet Activity on Discharge: As tolerated Stand Alone Forms: Work/School Release Visit Report Forms: Patient Portal Discharge page Care Plan Goals: Patient came with the foot pain specially in the ankle area-initially thought to be question of cellulitis and started on antibiotics, but MRI shows changes of says plantar fasciitis: Subsequently discussed with the infectious disease and antibiotic was discontinued and patient is going home with NSAIDs and oxycodone. Also given bowel regimen laxatives. Patient was told if pain worsens or any fever or any new symptoms come to the nearest emergency room. Patient is to make his own appointment. PT evaluation -recommended exercise and pain control. Also given prescription for walker. Patient will contact PCP for further management once possible. Health Concerns: As above. Plan of Treatment: As above. Discharge Date/Time: 09/14/20 16:39
[2020-09-14 14:38] VITALS: BP 159/68; PULSE 79; O2SAT 99
[2020-09-14 14:47] VITALS: BP 132/69; PULSE 100; RESP 18; TEMP 36.6; O2SAT 99
--- NOTE | 2020-09-14 15:51 | MHC.CM.PN ---
PT DISCHARGING TODAY HOME SELF-CARE, FAMILY TO TRANSPORT.
== END 2020-09-14 16:39 | disposition home or self-care (01) | DRG 558 ==
LOC: HO.ED 17:35 → HO.EDOVER 19:20 → HO.S3 19:33
PROVIDERS: Nurse Practitioner Acute Care; Physician Assistant Medical; Admitting Provider Internal Medicine; Emergency Provider Emergency Medicine Emergency Medical Services; Visit Provider Internal Medicine
DX: M72.2 Plantar fascial fibromatosis (principal); I25.10 Atherosclerotic heart disease of native coronary artery without angina pectoris; E11.9 Type 2 diabetes mellitus without complications; E83.42 Hypomagnesemia; F17.210 Nicotine dependence, cigarettes, uncomplicated; Z71.6 Tobacco abuse counseling; Z20.822 Contact with and (suspected) exposure to COVID-19; Z79.1 Long term (current) use of non-steroidal anti-inflammatories (NSAID); Z79.4 Long term (current) use of insulin; Z79.82 Long term (current) use of aspirin; Z79.899 Other long term (current) drug therapy
CPT/HCPCS: 0241U; 36415; 73701; 73720; 80048; 80076; 80202; 82550; 82947; 83605; 83735; 84550; 85025; 85610; 85652; 87040; 96361; 96365; 96366; 96367; 96375; 96376; 97161; 99285; 99291; A9585; J0696; J1170; J1200; J2270; J2405; J2543; J3370; J3475; Q9967

== ENCOUNTER 2020-09-26 02:01 | Emergency (ER) | payer OTHER, SELFPAY ==
[2020-09-26 02:38] VITALS: BP 184/94; PULSE 80; RESP 18; TEMP 36.2; O2SAT 99; BMI 34.2
--- NOTE | 2020-09-26 03:59 | CT_ITS ---
EXAMINATION: CT ABDOMEN AND PELVIS WITHOUT CONTRAST CLINICAL INFORMATION: Right flank pain, renal colic COMPARISON: 08/15/2020 TECHNIQUE: Multidetector volumetric imaging was performed from the superior aspect of the liver through the pubic symphysis. Sagittal and coronal reformatted images were obtained on the technologist's workstation. This CT examination was performed using dose optimization techniques as appropriate, variously including the following: *Automated exposure control *Adjustment of mA and/or kV according to patient size (this includes techniques or standardized protocols for targeted exams where dose is matched to indication/reason for exam; i.e. extremities or head) *Use of iterative reconstruction technique DLP: 724 mGy-cm FINDINGS: LUNG BASES: The visualized lung bases are unremarkable. Coronary artery calcifications are present. LIVER, GALLBLADDER, AND BILIARY TREE: The liver is normal in size, shape, and attenuation. No focal hepatic lesion or biliary ductal dilatation is present. Patient is status post cholecystectomy. PANCREAS: Unremarkable. SPLEEN: Calcified granulomas noted. ADRENAL GLANDS: Somewhat thickened appearance of the left adrenal gland, similar to prior. Right adrenal gland is unremarkable. KIDNEYS AND URETERS: The kidneys are normal in size, shape, and attenuation. Small cyst is noted off the medial right kidney. There is a left lower pole calculus measuring 5 mm. No hydronephrosis, hydroureter, or obstructing calculi seen. BLADDER: Unremarkable. GASTROINTESTINAL TRACT: Moderate amount of stool is present throughout the colon. The small and large bowel are otherwise unremarkable. The appendix is unremarkable. No free fluid or free air is seen. ABDOMINAL WALL: Small fat-containing inguinal hernias, right larger than left. LYMPH NODES: Normal. VASCULAR: Scattered vascular calcification is noted. PELVIC VISCERA: The prostate gland is enlarged, measuring 5.7 cm in transverse diameter. 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 CT/CT abdomen pelvis wo con IMPRESSION: 1. No acute findings identified in the abdomen/pelvis. 2. Redemonstrated left lower pole renal calculus. 3. Coronary artery calcifications. Correlation with cardiac risk factors is recommended.
--- NOTE | 2020-09-26 04:00 | ED_ITS ---
HPI - Abdominal Pain General Chief Complaint: Abdominal Pain Stated Complaint: BACK PAIN Time Seen by Provider: 09/26/20 03:28 Source: patient Mode of arrival: ambulatory History of Present Illness HPI narrative: This is a 55-year-old male with significant past medical history of renal colic status post stent placement approximately 2 months ago now presenting with recurrent right flank pain that started yesterday and has progressively worsened throughout the day with radiation of the groin but not associated with any fevers, chills, nausea, vomiting, urinary pain/burning/frequency. Related Data Home Medications Medication Instructions Recorded Confirmed Humalog KwikPen Insulin 13 units SUBCUT DIRECTED 06/21/20 09/10/20 Lantus Solostar U-100 Insulin 17 unit SUBCUT QPM 06/21/20 09/10/20 metformin 1,000 mg PO BID 06/21/20 09/10/20 aspirin 81 mg PO DAILY 09/10/20 09/10/20 Previous Rx's Medication Instructions Recorded ibuprofen 400 mg PO Q6H PRN #20 tab 06/21/20 acetaminophen 650 mg PO Q6H PRN #30 tab 09/14/20 docusate sodium [Colace] 100 mg PO DAILY #30 cap 09/14/20 gabapentin 300 mg PO TID #30 cap 09/14/20 oxycodone 5 mg PO Q8H PRN #10 cap 09/14/20 sennosides [senna] 8.6 mg PO BEDTIME #30 cap 09/14/20 walker [Ultra-Light Rollator] #1 ea 09/14/20 Allergies Allergy/AdvReac Type Severity Reaction Status Date / Time No Known Allergies Allergy Verified 09/26/20 02:38 [No Known Allergies*] Review of Systems Review of Systems Pertinent positives and negatives as stated in HPI 10 point review of systems otherwise negative. Physical Exam Vital Signs: Vital Signs: Last Vital Signs Temp 97.1 F 09/26/20 02:38 Pulse 80 09/26/20 02:38 Resp 18 09/26/20 02:38 BP 184/94 H 09/26/20 02:38 Pulse Ox 99 09/26/20 02:38 Body Mass Index 34.2 VITAL SIGNS: Reviewed. GENERAL: Well developed, well nourished, in no acute distress. NOSE: Nares patent bilateral OROPHARYNX: no oral lesions noted, posterior pharynx clear NECK: Supple, no adenopathy LUNGS: Normal breath sounds. No adventitious sounds or accessory muscle use. SpO2<99> CARDIOVASCULAR: Regular rate and rhythm without noted murmurs, no JVD or lower extremity edema. ABDOMEN: Obese, Soft, tenderness at right flank and into right lower quadrant without rebound, non-distended with bowel sounds. SKIN: Inspection of the skin reveals no rashes NEUROLOGIC: Alert and oriented x 4. Course Course Course Narrative: This is a 55-year-old male with history and clinical presentation suggestive of most likely renal colic but will rule out appendicitis as well. Review of all investigation is negative for any acute findings. These were discussed with the patient at bedside and it was postulated that he may have a muscle strain that is mimicking the renal colic symptoms that he previously presented with. He is stable for discharge to home MDM - Abdominal Pain Lab Data Result diagrams: 09/26/20 04:07 09/26/20 04:07 Labs: Lab Results 09/26/20 09/26/20 09/26/20 Range/Units 04:07 04:07 04:15 WBC 9.3 (4.8-10.8) X10*3/uL RBC 4.92 (4.60-5.80) X10*6/uL Hgb 14.1 (14.0-18.0) g/dl Hct 42.3 (42-52) % MCV 86.0 (80-98) fL MCH 28.7 (27.0-33.0) pg MCHC 33.3 (31.0-36.0) g/dl RDW 13.6 (11.0-16.0) % Plt Count 236 (160-400) X10*3/uL MPV 10.8 (9.4-12.4) fL Immature Gran % (Auto) 0.4 (0.0-0.4) % Neut % (Auto) 59.6 (45-73) % Lymph % (Auto) 24.4 (20-40) % [place] % (Auto) 8.9 (2-11) % Eos % (Auto) 6.1 H (0-4) % Baso % (Auto) 0.6 (0-2) % Lymph # (Auto) 2.3 (1.2-4.9) X10*3/uL [place] # (Auto) 0.8 (0.1-1.2) X10*3/uL Eos # (Auto) 0.6 H (0.0-0.4) X10*3/uL Baso # (Auto) 0.1 (0.0-0.2) X10*3/uL Abs Immat Gran (auto) 0.04 H (0.00-0.03) X10*3/uL Absolute Neuts (auto) 5.5 (2.0-8.3) X10*3/uL Absolute Nucleated RBC 0.000 (0.0-0.012) X10*3/uL Nucleated RBC % (auto) 0.0 (0.0-0.2) /100WBC Sodium 136 (135-145) mmol/L Potassium 4.5 (3.3-5.1) mmol/L Chloride 98 (96-108) mmol/L Carbon Dioxide 29 (22-29) mmol/L Anion Gap 14 (12-20) BUN 29 H D (9-16) mg/dL Creatinine 1.11 (0.5-1.4) mg/dL Estim Creat Clear Calc 90.9 Estimated GFR > 60 Random Glucose 272 H D (60-115) mg/dL Calcium 9.1 D (8.4-10.2) mg/dL Total Bilirubin 0.3 (0.0-1.0) mg/dL AST 18 D (5-37) U/L ALT 26 (0-40) U/L Alkaline Phosphatase 96 (39-117) U/L Total Protein 7.2 (6.5-8.0) g/dL Albumin 4.0 (3.5-5.0) g/dL Lipase 248 H (8-78) U/L Urine Color YELLOW Urine Appearance CLEAR Urine pH 6.0 (5.0-8.0) Ur Specific [place] 1.020 (1.005-1.025) Urine Protein NEG (NEG-TRACE) MG/DL Urine Glucose (UA) 500 H (NEG) MG/DL Urine Ketones NEG (NEG) MG/DL Urine Blood NEG (NEG) Urine Nitrite NEG (NEG) Ur Leukocyte Esterase NEG (NEG) Discharge Plan Discharge Clinical Impression: Strain of muscle, fascia and tendon of abdomen, initial encounter Patient Disposition: Home, Self-Care Instructions: Muscle Strain (ED), Lower Back Exercises (ED) Additional Instructions: Use [id number] Tylenol and/or ibuprofen for symptom control, increase hydration with water, and follow-up with your primary care provider for further evaluation. Do not hesitate to return to the emergency department should you experience worsening of your symptoms. Prescriptions: No Action ibuprofen 400 mg tablet 400 mg PO Q6H PRN (Reason: pain) Qty: 20 RF: 0 metformin 1,000 mg Tablet 1,000 mg PO BID RF: 0 Lantus Solostar U-100 Insulin 100 unit/mL (3 mL) Insulin Pen 17 unit SUBCUT QPM RF: 0 Humalog KwikPen Insulin 13 units subcut DIRECTED RF: 0 aspirin 81 mg Tablet,Delayed Release (Dr/Ec) 81 mg PO DAILY RF: 0 acetaminophen 325 mg Tablet 650 mg PO Q6H PRN (Reason: Pain, Mild (Pain Scale 1-3)) Qty: 30 RF: 0 gabapentin 300 mg Capsule 300 mg PO TID Qty: 30 RF: 0 oxycodone 5 mg capsule 5 mg PO Q8H PRN (Reason: pain) Qty: 10 RF: 0 (DME) Ultra-Light Rollator Misc See Rx Instructions .ROUTE .MEDSUPPLY Qty: 1 RF: 0 docusate sodium [Colace] 100 mg capsule 100 mg PO DAILY Qty: 30 RF: 0 senna 8.6 mg capsule 8.6 mg PO BEDTIME Qty: 30 RF: 0 Referrals: Physician,None [Primary Care Provider] - 2 days PMFSH Past Medical History Source: nursing notes reviewed Medical History Alcohol abuse Arthritis Atypical chest pain CAD (coronary artery disease) Diabetes Failure of outpatient treatment Hypertension Increased BMI Kidney calculus Pancreatitis Surgical History Hx of heart artery stent Status post laparoscopic cholecystectomy Social History Social History Household Members: Family Housing: House Alcohol intake: never Smoking Status: Current every day smoker Tobacco Type: Cigarette Cigarettes Per Day: 7 Years Smoked: 28 Second Hand Smoke Exposure: Yes Substance Use Type: Marijuana Advance Directives: No Advance Directives Information Provided: No service: No Current occupational status: employed
[2020-09-26 04:13] LABS: MANUAL DIFF FLAG NO
[2020-09-26 04:15] LABS: Basophils Absolute Auto 0.1 X10*3/uL (0.0-0.2); Basophils Percent Auto 0.6 % (0-2); Eosinophils Absolute Auto 0.6 X10*3/uL (0.0-0.4); Eosinophils Percent Auto 6.1 % (0-4); Hematocrit 42.3 % (42-52); Hemoglobin 14.1 g/dl (14.0-18.0); Imm Gran Abs Auto 0.04 X10*3/uL (0.00-0.03); Imm Gran Pct Auto 0.4 % (0.0-0.4); Lymphocytes Absolute Auto 2.3 X10*3/uL (1.2-4.9); Lymphocytes Percent Auto 24.4 % (20-40); Mean Corpuscular HGB Conc 33.3 g/dl (31.0-36.0); Mean Corpuscular Hemoglobin 28.7 pg (27.0-33.0); Mean Platelet Volume 10.8 fL (9.4-12.4); Monocytes Absolute Auto 0.8 X10*3/uL (0.1-1.2); Monocytes Percent Auto 8.9 % (2-11); Neutrophils Absolute Auto 5.5 X10*3/uL (2.0-8.3); Neutrophils Percent Auto 59.6 % (45-73); Platelet Count 236 X10*3/uL (160-400); Red Blood Count 4.92 X10*6/uL (4.60-5.80); Red Cell Distribution Width 13.6 % (11.0-16.0); White Blood Count 9.3 X10*3/uL (4.8-10.8)
[2020-09-26] MEDS: Acetaminophen 325 MG TABLET 975 MG PO (04:24)
[2020-09-26] MEDS: Ketorolac Tromethamine 15 MG/ML VIAL IM (04:24)
[2020-09-26 04:30] LABS: Glucose Urine UA 500 MG/DL (NEG); Leukocyte Esterase Urine NEG (NEG); Nitrite Urine NEG (NEG); Urine Blood NEG (NEG); Urine Ketones NEG (NEG); Urine Protein NEG (NEG-TRACE)
[2020-09-26 04:33] LABS: Appearance Urine CLEAR; Color Urine YELLOW
[2020-09-26 04:49] LABS: Alanine Aminotransferase 26 U/L (0-40); Alkaline Phosphatase 96 U/L (39-117); Anion Gap 14 (12-20); Aspartate Amino Transferase 18 U/L (5-37); Bilirubin Total 0.3 mg/dL (0.0-1.0); Blood Urea Nitrogen 29 mg/dL (9-16); Calcium 9.1 mg/dL (8.4-10.2); Carbon Dioxide 29 mmol/L (22-29); Chloride 98 mmol/L (96-108); Creatinine Clr Calc Pharmacy 90.9; Estimated Glomerular Filt Rate > 60; Glucose Random 272 mg/dL (60-115); Lipase 248 U/L (8-78); Potassium 4.5 mmol/L (3.3-5.1); Sodium 136 mmol/L (135-145); Total Protein 7.2 g/dL (6.5-8.0)
== END 2020-09-26 06:40 | disposition home or self-care (01) ==
PROVIDERS: Emergency Provider Student in an Organized Health Care Education/Training Program
DX: S39.011A Strain of muscle, fascia and tendon of abdomen, initial encounter (principal); X50.9XXA Other and unspecified overexertion or strenuous movements or postures, initial encounter; I10 Essential (primary) hypertension; E11.9 Type 2 diabetes mellitus without complications; F17.210 Nicotine dependence, cigarettes, uncomplicated; Y93.9 Activity, unspecified; Y92.9 Unspecified place or not applicable; Y99.9 Unspecified external cause status; Z79.4 Long term (current) use of insulin; Z87.442 Personal history of urinary calculi
CPT/HCPCS: 36415; 74176; 80053; 81003; 83690; 85025; 96372; 99283; 99284; J1885

== ENCOUNTER 2020-09-26 19:05 | Emergency (ER) | payer OTHER, SELFPAY ==
[2020-09-26 19:09] VITALS: BP 181/93; PULSE 91; RESP 18; TEMP 36.5; O2SAT 100; BMI 34.2
[2020-09-26 19:28] LABS: Basophils Absolute Auto 0.1 X10*3/uL (0.0-0.2); Basophils Percent Auto 0.6 % (0-2); Eosinophils Absolute Auto 0.7 X10*3/uL (0.0-0.4); Eosinophils Percent Auto 6.7 % (0-4); Hematocrit 45.3 % (42-52); Imm Gran Abs Auto 0.03 X10*3/uL (0.00-0.03); Imm Gran Pct Auto 0.3 % (0.0-0.4); Lymphocytes Absolute Auto 2.7 X10*3/uL (1.2-4.9); Lymphocytes Percent Auto 27.3 % (20-40); MANUAL DIFF FLAG NO; Mean Corpuscular HGB Conc 33.1 g/dl (31.0-36.0); Mean Corpuscular Hemoglobin 28.1 pg (27.0-33.0); Mean Corpuscular Volume 84.8 fL (80-98); Mean Platelet Volume 10.8 fL (9.4-12.4); Monocytes Absolute Auto 0.8 X10*3/uL (0.1-1.2); Monocytes Percent Auto 8.6 % (2-11); Neutrophils Absolute Auto 5.6 X10*3/uL (2.0-8.3); Neutrophils Percent Auto 56.5 % (45-73); Platelet Count 229 X10*3/uL (160-400); Red Blood Count 5.34 X10*6/uL (4.60-5.80); Red Cell Distribution Width 13.4 % (11.0-16.0); White Blood Count 9.8 X10*3/uL (4.8-10.8)
[2020-09-26 19:58] LABS: Anion Gap 16 (12-20); Blood Urea Nitrogen 20 mg/dL (9-16); Calcium 9.4 mg/dL (8.4-10.2); Carbon Dioxide 27 mmol/L (22-29); Chloride 96 mmol/L (96-108); Creatinine Clr Calc Pharmacy 101.9; Estimated Glomerular Filt Rate > 60; Glucose Random 319 mg/dL (60-115); Sodium 135 mmol/L (135-145)
[2020-09-26 20:11] LABS: Lipase 328 U/L (8-78)
[2020-09-26 20:56] VITALS: BP 175/92; PULSE 81; RESP 20; O2SAT 100
--- NOTE | 2020-09-26 21:01 | PC.NURSE ---
Pt from home, found laying in bed, speaking full sentences, CAOx4. Pt explains that he was just seen here yesterday from same complaint. Pt holding right side, reports RLQ pain radiating into back. Pt also reports +N/V and dysuria. Pt states yesterday he had labs, a UA and a CT, all was found to be negative. Pt was discharged home. Pt returns today due to increased pain. MD at bedside for primary eval.
--- NOTE | 2020-09-26 21:08 | ED.ABDPAIN ---
HPI - Abdominal Pain General Chief Complaint: Abdominal Pain Stated Complaint: Abdominal pain Time Seen by Provider: 09/26/20 21:05 Source: patient Mode of arrival: ambulatory Limitations: no limitations History of Present Illness HPI narrative: Patient with history of pancreatitis and kidney stone was seen here yesterday for pain in the right flank and abdomen, nausea/vomiting was seen here , workup showed slightly elevated lipase CT scan was negative for any pancreatitis or kidney stone patient came back as pain is continuing since discharge in the morning. Patient denies any use of alcohol no hematuria MD elicited complaint: abdominal pain and flank pain Pertinent past history: kidney stones Onset (ago): day(s) (2) Pain Consistency: constant Location: R flank Severity: moderate Quality: stabbing Migration to: RLQ Exacerbating factors: nothing Relieving factors: nothing Associated symptoms: nausea and vomiting Related Data Home Medications Medication Instructions Recorded Confirmed Humalog KwikPen Insulin 15 units SUBCUT DIRECTED 06/21/20 09/26/20 Lantus Solostar U-100 Insulin 17 unit SUBCUT QPM 06/21/20 09/26/20 metformin 1,000 mg PO BID 06/21/20 09/26/20 aspirin 81 mg PO DAILY 09/10/20 09/26/20 lisinopril 10 mg PO DAILY 09/26/20 09/26/20 ticagrelor [Brilinta] 60 mg PO DAILY 09/26/20 09/26/20 Previous Rx's Medication Instructions Recorded gabapentin 300 mg PO TID #30 cap 09/14/20 walker [Ultra-Light Rollator] #1 ea 09/14/20 omeprazole 40 mg PO DAILY #20 cap 09/26/20 ondansetron 4 mg PO Q6-8H PRN #20 tab 09/26/20 oxycodone 5 mg PO Q6H PRN #20 tab 09/26/20 Allergies Allergy/AdvReac Type Severity Reaction Status Date / Time No Known Allergies Allergy Verified 09/26/20 19:12 [No Known Allergies*] Review of Systems Review of Systems Constitutional : No Weight loss, No Fever, No Chills ENT/Mouth : No sore throat, No Rhinorrhea Eyes: No Eye Pain, No Swelling Cardiovascular : No Chest Pain, no palpitations Respiratory : No Cough, No Sputum, no shortness of breath Gastrointestinal : ++ Nausea, ++ Vomiting, No Diarrhea,++ abdominal Pain, no black stools Genitourinary : No Dysuria, No Urinary Frequency Musculoskeletal : No joint pain, No Myalgias, No Joint Swelling Skin : No Skin Lesions, No rash Neuro : No Weakness, No Numbness, No Dizziness, No Headache Psych : No Anxiety/Panic, No Depression Heme/Lymph: No Bruising, No Lymphadenopathy Endocrine : No Polyuria, No Polydipsia All other systems reviewed and are negative Physical Exam Vital Signs: Vital Signs: Last Vital Signs Temp 98.1 F 09/26/20 23:39 Pulse 78 09/27/20 00:09 Resp 16 09/27/20 00:09 BP 151/74 H 09/27/20 00:09 Pulse Ox 99 09/27/20 00:09 Body Mass Index 34.2 Appearance: Alert. Oriented X3. In mild distress. Eyes: Pupils equal, round and reactive to light. ENT: Pharynx normal. Neck: Normal inspection. Neck supple. CVS: Normal heart rate and rhythm. Pulses normal. Respiratory: No respiratory distress. Breath sounds normal. Abdomen: Soft slight tenderness in epigastric area. Bowel sounds are present, no mass palpable, right CVA tenderness+ Skin: Skin warm and dry. Normal skin color. Normal skin turgor. Extremities: No lower extremity edema. Neuro: Oriented X 3. No motor deficit. No sensory deficit. MDM - Abdominal Pain MDM Narrative Medical decision making narrative: Patient with hx of chronic pancreatitis history of alcohol use in the past patient denies any recent use of alcohol lipase is slightly elevated but CT scan done last and was negative for any fluid collection or any kidney stone patient able to drink fluids feel comfortable to go home will discharge him home on oxycodone and Zofran advised to follow-up with PCP and report to ER if pain gets worse Differential Diagnosis Differential diagnosis: Likely abdominal pain, calculus of kidney, diverticulitis and pancreatitis Medical Records Attestation: I reviewed the patient's medical records. Lab Data Attestation: I reviewed the patient's lab results. Result diagrams: 09/26/20 21:49 09/26/20 19:22 Labs: Lab Results 09/26/20 09/26/20 09/26/20 Range/Units 19:22 19:22 21:49 WBC 9.8 10.9 H (4.8-10.8) X10*3/uL RBC 5.34 5.21 (4.60-5.80) X10*6/uL Hgb 15.0 14.6 (14.0-18.0) g/dl Hct 45.3 43.7 (42-52) % MCV 84.8 83.9 (80-98) fL MCH 28.1 28.0 (27.0-33.0) pg MCHC 33.1 33.4 (31.0-36.0) g/dl RDW 13.4 13.2 (11.0-16.0) % Plt Count 229 234 (160-400) X10*3/uL MPV 10.8 10.9 (9.4-12.4) fL Immature Gran % (Auto) 0.3 0.5 H (0.0-0.4) % Neut % (Auto) 56.5 60.8 (45-73) % Lymph % (Auto) 27.3 21.8 (20-40) % [place] % (Auto) 8.6 10.0 (2-11) % Eos % (Auto) 6.7 H 6.2 H (0-4) % Baso % (Auto) 0.6 0.7 (0-2) % Lymph # (Auto) 2.7 2.4 (1.2-4.9) X10*3/uL [place] # (Auto) 0.8 1.1 (0.1-1.2) X10*3/uL Eos # (Auto) 0.7 H 0.7 H (0.0-0.4) X10*3/uL Baso # (Auto) 0.1 0.1 (0.0-0.2) X10*3/uL Abs Immat Gran (auto) 0.03 0.05 H (0.00-0.03) X10*3/uL Absolute Neuts (auto) 5.6 6.7 (2.0-8.3) X10*3/uL Absolute Nucleated RBC 0.000 0.000 (0.0-0.012) X10*3/uL Nucleated RBC % (auto) 0.0 0.0 (0.0-0.2) /100WBC Sodium 135 (135-145) mmol/L Potassium 4.0 (3.3-5.1) mmol/L Chloride 96 (96-108) mmol/L Carbon Dioxide 27 (22-29) mmol/L Anion Gap 16 (12-20) BUN 20 H (9-16) mg/dL Creatinine 0.99 (0.5-1.4) mg/dL Estim Creat Clear Calc 101.9 Estimated GFR > 60 Random Glucose 319 H (60-115) mg/dL Calcium 9.4 (8.4-10.2) mg/dL Total Bilirubin 0.3 (0.0-1.0) mg/dL Direct Bilirubin 0.2 (0.0-0.5) mg/dL AST 20 (5-37) U/L ALT 29 (0-40) U/L Alkaline Phosphatase 100 (39-117) U/L Total Protein 7.9 (6.5-8.0) g/dL Albumin 4.3 (3.5-5.0) g/dL Triglycerides 247 mg/dL Lipase 328 H (8-78) U/L Urine Color Urine Appearance Urine pH (5.0-8.0) Ur Specific [place] (1.005-1.025) Urine Protein (NEG-TRACE) MG/DL Urine Glucose (UA) (NEG) MG/DL Urine Ketones (NEG) MG/DL Urine Blood (NEG) Urine Nitrite (NEG) Ur Leukocyte Esterase (NEG) Urine RBC (0) /HPF Urine WBC (0-4) /HPF Ur Squamous Epith Cells /LPF Urine Bacteria /LPF 09/26/20 09/26/20 Range/Units 21:49 21:49 WBC (4.8-10.8) X10*3/uL RBC (4.60-5.80) X10*6/uL Hgb (14.0-18.0) g/dl Hct (42-52) % MCV (80-98) fL MCH (27.0-33.0) pg MCHC (31.0-36.0) g/dl RDW (11.0-16.0) % Plt Count (160-400) X10*3/uL MPV (9.4-12.4) fL Immature Gran % (Auto) (0.0-0.4) % Neut % (Auto) (45-73) % Lymph % (Auto) (20-40) % [place] % (Auto) (2-11) % Eos % (Auto) (0-4) % Baso % (Auto) (0-2) % Lymph # (Auto) (1.2-4.9) X10*3/uL [place] # (Auto) (0.1-1.2) X10*3/uL Eos # (Auto) (0.0-0.4) X10*3/uL Baso # (Auto) (0.0-0.2) X10*3/uL Abs Immat Gran (auto) (0.00-0.03) X10*3/uL Absolute Neuts (auto) (2.0-8.3) X10*3/uL Absolute Nucleated RBC (0.0-0.012) X10*3/uL Nucleated RBC % (auto) (0.0-0.2) /100WBC Sodium Cancelled (135-145) mmol/L Potassium Cancelled (3.3-5.1) mmol/L Chloride Cancelled (96-108) mmol/L Carbon Dioxide Cancelled (22-29) mmol/L Anion Gap Cancelled (12-20) BUN Cancelled (9-16) mg/dL Creatinine Cancelled (0.5-1.4) mg/dL Estim Creat Clear Calc Cancelled Estimated GFR Cancelled Random Glucose Cancelled (60-115) mg/dL Calcium Cancelled (8.4-10.2) mg/dL Total Bilirubin Cancelled (0.0-1.0) mg/dL Direct Bilirubin Cancelled (0.0-0.5) mg/dL AST Cancelled (5-37) U/L ALT Cancelled (0-40) U/L Alkaline Phosphatase Cancelled (39-117) U/L Total Protein Cancelled (6.5-8.0) g/dL Albumin Cancelled (3.5-5.0) g/dL Triglycerides Cancelled mg/dL Lipase Cancelled (8-78) U/L Urine Color YELLOW Urine Appearance CLEAR Urine pH 5.5 (5.0-8.0) Ur Specific [place] 1.015 (1.005-1.025) Urine Protein NEG (NEG-TRACE) MG/DL Urine Glucose (UA) >=1000 H (NEG) MG/DL Urine Ketones NEG (NEG) MG/DL Urine Blood NEG (NEG) Urine Nitrite NEG (NEG) Ur Leukocyte Esterase NEG (NEG) Urine RBC 0 (0) /HPF Urine WBC 0-2 (0-4) /HPF Ur Squamous Epith Cells TRACE /LPF Urine Bacteria NONE /LPF Discharge Plan Discharge Clinical Impression: Acute on chronic pancreatitis Patient Disposition: Home, Self-Care Instructions: Pancreatitis (ED) Additional Instructions: Do not drink alcohol. Drink plenty of fluids and have small amount of food as tolerated. Pain medication as advised. Report to the ER if continued to have pain/vomiting Prescriptions: New ondansetron 4 mg tablet,disintegrating 4 mg PO Q6-8H PRN (Reason: Nausea And Vomiting) Qty: 20 RF: 0 oxycodone 5 mg tablet 5 mg PO Q6H PRN (Reason: Pain, Moderate) Qty: 20 RF: 0 omeprazole 40 mg capsule,delayed release(DR/EC) 40 mg PO DAILY Qty: 20 RF: 0 No Action metformin 1,000 mg Tablet 1,000 mg PO BID RF: 0 Lantus Solostar U-100 Insulin 100 unit/mL (3 mL) Insulin Pen 17 unit SUBCUT QPM RF: 0 Humalog KwikPen Insulin 15 units subcut DIRECTED RF: 0 aspirin 81 mg Tablet,Delayed Release (Dr/Ec) 81 mg PO DAILY RF: 0 gabapentin 300 mg Capsule 300 mg PO TID Qty: 30 RF: 0 (DME) Ultra-Light Rollator Misc See Rx Instructions .ROUTE .MEDSUPPLY Qty: 1 RF: 0 lisinopril 10 mg Tablet 10 mg PO DAILY RF: 0 Brilinta 60 mg Tablet 60 mg PO DAILY RF: 0 PMFSH Past Medical History Medical History Alcohol abuse Arthritis Atypical chest pain CAD (coronary artery disease) Diabetes Failure of outpatient treatment Hypertension Increased BMI Kidney calculus Pancreatitis Surgical History Hx of heart artery stent Status post laparoscopic cholecystectomy Social History Social History Household Members: Family Housing: House Alcohol intake: never Smoking Status: Current every day smoker Tobacco Type: Cigarette Cigarettes Per Day: 7 Years Smoked: 28 Second Hand Smoke Exposure: Yes Substance Use Type: Marijuana Advance Directives: No Advance Directives Information Provided: No service: No Current occupational status: employed
[2020-09-26] MEDS: 0.9 % Sodium Chloride 1,000 ML 999 ML IVCONT ×2 (21:51→22:48)
[2020-09-26] MEDS: ondansetron HCL 4 MG/2 ML VIAL IVPUSH (21:53)
[2020-09-26 21:54] VITALS: BP 185/92; PULSE 82; RESP 18; O2SAT 100
[2020-09-26] MEDS: Morphine Sulfate 4 MG/ML CARTRIDGE IVPUSH (21:54)
[2020-09-26 22:02] LABS: MANUAL DIFF FLAG NO
[2020-09-26 22:03] LABS: Basophils Absolute Auto 0.1 X10*3/uL (0.0-0.2); Basophils Percent Auto 0.7 % (0-2); Eosinophils Absolute Auto 0.7 X10*3/uL (0.0-0.4); Eosinophils Percent Auto 6.2 % (0-4); Hematocrit 43.7 % (42-52); Hemoglobin 14.6 g/dl (14.0-18.0); Imm Gran Abs Auto 0.05 X10*3/uL (0.00-0.03); Imm Gran Pct Auto 0.5 % (0.0-0.4); Lymphocytes Absolute Auto 2.4 X10*3/uL (1.2-4.9); Lymphocytes Percent Auto 21.8 % (20-40); Mean Corpuscular HGB Conc 33.4 g/dl (31.0-36.0); Mean Corpuscular Volume 83.9 fL (80-98); Mean Platelet Volume 10.9 fL (9.4-12.4); Monocytes Absolute Auto 1.1 X10*3/uL (0.1-1.2); Neutrophils Absolute Auto 6.7 X10*3/uL (2.0-8.3); Neutrophils Percent Auto 60.8 % (45-73); Platelet Count 234 X10*3/uL (160-400); Red Blood Count 5.21 X10*6/uL (4.60-5.80); Red Cell Distribution Width 13.2 % (11.0-16.0); White Blood Count 10.9 X10*3/uL (4.8-10.8)
[2020-09-26 22:08] LABS: Glucose Urine UA >=1000 MG/DL (NEG); Leukocyte Esterase Urine NEG (NEG); Nitrite Urine NEG (NEG); PH 5.5 (5.0-8.0); Specific Gravity - Urine 1.015 (1.005-1.025); Urine Blood NEG (NEG); Urine Ketones NEG (NEG); Urine Protein NEG (NEG-TRACE)
[2020-09-26 22:10] LABS: Appearance Urine CLEAR; Color Urine YELLOW
--- NOTE | 2020-09-26 22:12 | PC.NURSE ---
IV established and labs obtained by elias Rankin. Pt also medicated by SALLY Rankin. Pt resting in bed, awaiting labs, continue to monitor.
[2020-09-26 22:35] LABS: RBC Urine 0 /HPF (0); Squamous Epithelial Cell Urine TRACE /LPF; WBC Urine 0-2 /HPF (0-4)
[2020-09-26 22:44] LABS: Alanine Aminotransferase 29 U/L (0-40); Albumin Level 4.3 g/dL (3.5-5.0); Aspartate Amino Transferase 20 U/L (5-37); Bilirubin Direct 0.2 mg/dL (0.0-0.5); Bilirubin Total 0.3 mg/dL (0.0-1.0); Total Protein 7.9 g/dL (6.5-8.0)
[2020-09-26] MEDS: HYDROmorphone HCl 2 MG/ML VIAL IVPUSH (22:48)
[2020-09-26 22:51] LABS: Alkaline Phosphatase 100 U/L (39-117); Triglycerides 247 mg/dL
[2020-09-26 22:57] VITALS: BP 165/87; PULSE 75; RESP 16
--- NOTE | 2020-09-26 22:58 | PC.NURSE ---
Pt ringing his call arthur, requesting more pain medication. Pt medicated with Dilaudid and IVF per MAR for 10/10 pain. VSS. Med Rec completed at bedside with pt. Per MD, plan for admission for pain control at this time. Continue to monitor.
[2020-09-26 23:39] VITALS: BP 172/88; PULSE 71; RESP 16; TEMP 36.7; O2SAT 99
[2020-09-27 00:09] VITALS: BP 151/74; PULSE 78; RESP 16; O2SAT 99
== END 2020-09-27 00:15 | disposition home or self-care (01) ==
PROVIDERS: Emergency Provider Internal Medicine
DX: K85.90 Acute pancreatitis without necrosis or infection, unspecified (principal); K86.1 Other chronic pancreatitis; E11.9 Type 2 diabetes mellitus without complications; I10 Essential (primary) hypertension; Z79.899 Other long term (current) drug therapy; Z79.4 Long term (current) use of insulin; Z87.442 Personal history of urinary calculi
CPT/HCPCS: 36415; 80048; 80076; 81001; 83690; 84478; 85025; 96361; 96374; 96375; 99284; J1170; J2270; J2405

== ENCOUNTER 2020-10-13 15:43 | Emergency (ER) | payer OTHER, SELFPAY ==
[2020-10-13 16:36] VITALS: BP 145/85; PULSE 84; RESP 18; TEMP 36.7; O2SAT 100; BMI 34.2
[2020-10-13 18:11] VITALS: BP 150/79; PULSE 80; RESP 18; TEMP 36.8; O2SAT 100
[2020-10-13 18:14] LABS: MANUAL DIFF FLAG NO
[2020-10-13 18:17] LABS: Basophils Absolute Auto 0.1 X10*3/uL (0.0-0.2); Basophils Percent Auto 0.7 % (0-2); Eosinophils Absolute Auto 0.5 X10*3/uL (0.0-0.4); Eosinophils Percent Auto 4.3 % (0-4); Hematocrit 42.2 % (42-52); Hemoglobin 13.9 g/dl (14.0-18.0); Imm Gran Abs Auto 0.08 X10*3/uL (0.00-0.03); Imm Gran Pct Auto 0.7 % (0.0-0.4); Lymphocytes Absolute Auto 2.8 X10*3/uL (1.2-4.9); Lymphocytes Percent Auto 25.6 % (20-40); Mean Corpuscular HGB Conc 32.9 g/dl (31.0-36.0); Mean Corpuscular Hemoglobin 27.7 pg (27.0-33.0); Mean Corpuscular Volume 84.2 fL (80-98); Mean Platelet Volume 10.4 fL (9.4-12.4); Monocytes Absolute Auto 0.8 X10*3/uL (0.1-1.2); Monocytes Percent Auto 7.4 % (2-11); Neutrophils Absolute Auto 6.8 X10*3/uL (2.0-8.3); Neutrophils Percent Auto 61.3 % (45-73); Platelet Count 272 X10*3/uL (160-400); Red Blood Count 5.01 X10*6/uL (4.60-5.80); Red Cell Distribution Width 13.3 % (11.0-16.0)
[2020-10-13 18:23] LABS: Glucose Urine UA 500 MG/DL (NEG); Leukocyte Esterase Urine NEG (NEG); Nitrite Urine NEG (NEG); PH 5.5 (5.0-8.0); Specific Gravity - Urine 1.015 (1.005-1.025); Urine Blood NEG (NEG); Urine Ketones NEG (NEG); Urine Protein NEG (NEG-TRACE)
[2020-10-13 18:24] LABS: Appearance Urine CLEAR; Color Urine YELLOW
[2020-10-13 18:50] LABS: Alanine Aminotransferase 22 U/L (0-40); Albumin Level 4.1 g/dL (3.5-5.0); Alkaline Phosphatase 91 U/L (39-117); Anion Gap 12 (12-20); Aspartate Amino Transferase 17 U/L (5-37); Bilirubin Total 0.3 mg/dL (0.0-1.0); Blood Urea Nitrogen 16 mg/dL (9-16); Calcium 9.4 mg/dL (8.4-10.2); Carbon Dioxide 28 mmol/L (22-29); Chloride 100 mmol/L (96-108); Creatinine Clr Calc Pharmacy 118.7; Estimated Glomerular Filt Rate > 60; Glucose Random 248 mg/dL (60-115); Sodium 136 mmol/L (135-145); Total Protein 7.5 g/dL (6.5-8.0)
[2020-10-13 19:05] LABS: Lipase 243 U/L (8-78)
--- NOTE | 2020-10-13 20:54 | ED_ITS ---
HPI - Abdominal Pain General Chief Complaint: Abdominal Pain Stated Complaint: flank pain Time Seen by Provider: 10/13/20 20:54 Source: patient Mode of arrival: ambulatory Limitations: no limitations History of Present Illness HPI narrative: Patient has a recurrent chronic pancreatitis pain was here on 09/[address] scan done at that time pancreas was normal but elevated lipase been here frequently for similar pain almost every month, feel nauseated no vomiting no abdominal distension this time pain started 2 days ago no diarrhea no fever no chills patient is not drinking alcohol anymore for last 13 years and plan to see auto body repair technician next week MD elicited complaint: abdominal pain Pertinent past history: none Onset (ago): day(s) (2) Pain Consistency: constant Location: periumbilical Severity: moderate Related Data Home Medications Medication Instructions Recorded Confirmed Humalog KwikPen Insulin 15 units SUBCUT DIRECTED 06/21/20 09/26/20 Lantus Solostar U-100 Insulin 17 unit SUBCUT QPM 06/21/20 09/26/20 metformin 1,000 mg PO BID 06/21/20 09/26/20 aspirin 81 mg PO DAILY 09/10/20 09/26/20 lisinopril 10 mg PO DAILY 09/26/20 09/26/20 ticagrelor [Brilinta] 60 mg PO DAILY 09/26/20 09/26/20 Previous Rx's Medication Instructions Recorded gabapentin 300 mg PO TID #30 cap 09/14/20 walker [Ultra-Light Rollator] #1 ea 09/14/20 omeprazole 40 mg PO DAILY #20 cap 09/26/20 ondansetron 4 mg PO Q6-8H PRN #20 tab 09/26/20 oxycodone 5 mg PO Q6H PRN #20 tab 09/26/20 dicyclomine 20 mg PO QID PRN #20 tab 10/13/20 ondansetron 4 mg PO Q6-8H PRN #14 tab 10/13/20 oxycodone 5 mg PO Q6H PRN #20 tab 10/13/20 Allergies Allergy/AdvReac Type Severity Reaction Status Date / Time No Known Allergies Allergy Verified 10/13/20 16:36 [No Known Allergies*] Review of Systems Review of Systems Constitutional : No Weight loss, No Fever, No Chills ENT/Mouth : No sore throat, No Rhinorrhea Eyes: No Eye Pain, No Swelling Cardiovascular : No Chest Pain, no palpitations Respiratory : No Cough, No Sputum, no shortness of breath Gastrointestinal : + Nausea, No Vomiting, No Diarrhea, ++ abdominal Pain, no black stools Genitourinary : No Dysuria, No Urinary Frequency Musculoskeletal : No joint pain, No Myalgias, No Joint Swelling Skin : No Skin Lesions, No rash Neuro : No Weakness, No Numbness, No Dizziness, No Headache Psych : No Anxiety/Panic, No Depression Heme/Lymph: No Bruising, No Lymphadenopathy Endocrine : No Polyuria, No Polydipsia All other systems reviewed and are negative Physical Exam Vital Signs: Vital Signs: Last Vital Signs Temp 98.3 F 10/13/20 18:11 Pulse 80 10/13/20 18:11 Resp 18 10/13/20 18:11 BP 150/79 H 10/13/20 18:11 Pulse Ox 100 10/13/20 18:11 Body Mass Index 34.2 Appearance: Alert. Oriented X3. No acute distress. Eyes: Pupils equal, round and reactive to light. ENT: Pharynx normal. Neck: Normal inspection. Neck supple. CVS: Normal heart rate and rhythm. Pulses normal. Respiratory: No respiratory distress. Breath sounds normal. Abdomen: Soft mild deep tenderness mid abdomen, Bowel sounds are present, no m ass palpable, no CVA tenderness Skin: Skin warm and dry. Normal skin color. Normal skin turgor. Extremities: No lower extremity edema. Neuro: Oriented X 3. No motor deficit. No sensory deficit. MDM - Abdominal Pain MDM Narrative Medical decision making narrative: Patient with chronic pancreatitis. Multiple CAT scan were negative for any acute fluid collection last CT scan was 2 weeks ago was also negative lipase has improved from last time is 243 at this time with normal LFTs patient will be following auto body repair technician next week will give some oxycodone for pain and Bentyl for bowel spasm patient does not have any signs of malabsorption at this time his previous triglyceride was 247 on 09/26 of Differential Diagnosis Differential diagnosis: Likely abdominal pain and pancreatitis Medical Records Attestation: I reviewed the patient's medical records. Lab Data Attestation: I reviewed the patient's lab results. Result diagrams: 10/13/20 18:09 10/13/20 18:09 Labs: Lab Results 10/13/20 10/13/20 10/13/20 Range/Units 18:06 18:09 18:09 WBC 11.0 H (4.8-10.8) X10*3/uL RBC 5.01 (4.60-5.80) X10*6/uL Hgb 13.9 L (14.0-18.0) g/dl Hct 42.2 (42-52) % MCV 84.2 (80-98) fL MCH 27.7 (27.0-33.0) pg MCHC 32.9 (31.0-36.0) g/dl RDW 13.3 (11.0-16.0) % Plt Count 272 (160-400) X10*3/uL MPV 10.4 (9.4-12.4) fL Immature Gran % (Auto) 0.7 H (0.0-0.4) % Neut % (Auto) 61.3 (45-73) % Lymph % (Auto) 25.6 (20-40) % [place] % (Auto) 7.4 (2-11) % Eos % (Auto) 4.3 H (0-4) % Baso % (Auto) 0.7 (0-2) % Lymph # (Auto) 2.8 (1.2-4.9) X10*3/uL [place] # (Auto) 0.8 (0.1-1.2) X10*3/uL Eos # (Auto) 0.5 H (0.0-0.4) X10*3/uL Baso # (Auto) 0.1 (0.0-0.2) X10*3/uL Abs Immat Gran (auto) 0.08 H (0.00-0.03) X10*3/uL Absolute Neuts (auto) 6.8 (2.0-8.3) X10*3/uL Absolute Nucleated RBC 0.000 (0.0-0.012) X10*3/uL Nucleated RBC % (auto) 0.0 (0.0-0.2) /100WBC Hold Blue Top SEE NOTE Sodium (135-145) mmol/L Potassium (3.3-5.1) mmol/L Chloride (96-108) mmol/L Carbon Dioxide (22-29) mmol/L Anion Gap (12-20) BUN (9-16) mg/dL Creatinine (0.5-1.4) mg/dL Estim Creat Clear Calc Estimated GFR Random Glucose (60-115) mg/dL Calcium (8.4-10.2) mg/dL Total Bilirubin (0.0-1.0) mg/dL AST (5-37) U/L ALT (0-40) U/L Alkaline Phosphatase (39-117) U/L Total Protein (6.5-8.0) g/dL Albumin (3.5-5.0) g/dL Lipase (8-78) U/L Urine Color YELLOW Urine Appearance CLEAR Urine pH 5.5 (5.0-8.0) Ur Specific [place] 1.015 (1.005-1.025) Urine Protein NEG (NEG-TRACE) MG/DL Urine Glucose (UA) 500 H (NEG) MG/DL Urine Ketones NEG (NEG) MG/DL Urine Blood NEG (NEG) Urine Nitrite NEG (NEG) Ur Leukocyte Esterase NEG (NEG) 10/13/20 Range/Units 18:09 WBC (4.8-10.8) X10*3/uL RBC (4.60-5.80) X10*6/uL Hgb (14.0-18.0) g/dl Hct (42-52) % MCV (80-98) fL MCH (27.0-33.0) pg MCHC (31.0-36.0) g/dl RDW (11.0-16.0) % Plt Count (160-400) X10*3/uL MPV (9.4-12.4) fL Immature Gran % (Auto) (0.0-0.4) % Neut % (Auto) (45-73) % Lymph % (Auto) (20-40) % [place] % (Auto) (2-11) % Eos % (Auto) (0-4) % Baso % (Auto) (0-2) % Lymph # (Auto) (1.2-4.9) X10*3/uL [place] # (Auto) (0.1-1.2) X10*3/uL Eos # (Auto) (0.0-0.4) X10*3/uL Baso # (Auto) (0.0-0.2) X10*3/uL Abs Immat Gran (auto) (0.00-0.03) X10*3/uL Absolute Neuts (auto) (2.0-8.3) X10*3/uL Absolute Nucleated RBC (0.0-0.012) X10*3/uL Nucleated RBC % (auto) (0.0-0.2) /100WBC Hold Blue Top Sodium 136 (135-145) mmol/L Potassium 4.0 (3.3-5.1) mmol/L Chloride 100 (96-108) mmol/L Carbon Dioxide 28 (22-29) mmol/L Anion Gap 12 (12-20) BUN 16 (9-16) mg/dL Creatinine 0.85 (0.5-1.4) mg/dL Estim Creat Clear Calc 118.7 Estimated GFR > 60 Random Glucose 248 H (60-115) mg/dL Calcium 9.4 (8.4-10.2) mg/dL Total Bilirubin 0.3 (0.0-1.0) mg/dL AST 17 (5-37) U/L ALT 22 (0-40) U/L Alkaline Phosphatase 91 (39-117) U/L Total Protein 7.5 (6.5-8.0) g/dL Albumin 4.1 (3.5-5.0) g/dL Lipase 243 H (8-78) U/L Urine Color Urine Appearance Urine pH (5.0-8.0) Ur Specific [place] (1.005-1.025) Urine Protein (NEG-TRACE) MG/DL Urine Glucose (UA) (NEG) MG/DL Urine Ketones (NEG) MG/DL Urine Blood (NEG) Urine Nitrite (NEG) Ur Leukocyte Esterase (NEG) Discharge Plan Discharge Clinical Impression: Pancreatitis, chronic Qualifiers: Pancreatitis type: unspecified pancreatitis type Qualified Code(s): K86.1 - O ther chronic pancreatitis Patient Disposition: Home, Self-Care Instructions: Pancreatitis (ED) Additional Instructions: Avoid fried food and to not drink alcohol. Take pain medication as prescribed. Follow-up with auto body repair technician as scheduled next week. Report to the ER if increased abdominal pain abdominal distention fever vomiting Prescriptions: New dicyclomine 20 mg tablet 20 mg PO QID PRN (Reason: abdominal pain) Qty: 20 RF: 0 ondansetron 4 mg tablet,disintegrating 4 mg PO Q6-8H PRN (Reason: Nausea And Vomiting) Qty: 14 RF: 0 oxycodone 5 mg tablet 5 mg PO Q6H PRN (Reason: Abdominal Pain) Qty: 20 RF: 0 No Action metformin 1,000 mg Tablet 1,000 mg PO BID RF: 0 Lantus Solostar U-100 Insulin 100 unit/mL (3 mL) Insulin Pen 17 unit SUBCUT QPM RF: 0 Humalog KwikPen Insulin 15 units subcut DIRECTED RF: 0 aspirin 81 mg Tablet,Delayed Release (Dr/Ec) 81 mg PO DAILY RF: 0 gabapentin 300 mg Capsule 300 mg PO TID Qty: 30 RF: 0 (DME) Ultra-Light Rollator Misc See Rx Instructions .ROUTE .MEDSUPPLY Qty: 1 RF: 0 lisinopril 10 mg Tablet 10 mg PO DAILY RF: 0 Brilinta 60 mg Tablet 60 mg PO DAILY RF: 0 ondansetron 4 mg tablet,disintegrating 4 mg PO Q6-8H PRN (Reason: Nausea And Vomiting) Qty: 20 RF: 0 oxycodone 5 mg tablet 5 mg PO Q6H PRN (Reason: Pain, Moderate) Qty: 20 RF: 0 omeprazole 40 mg capsule,delayed release(DR/EC) 40 mg PO DAILY Qty: 20 RF: 0 PMFSH Past Medical History Medical History Alcohol abuse Arthritis Atypical chest pain CAD (coronary artery disease) Diabetes Failure of outpatient treatment Hypertension Increased BMI Kidney calculus Pancreatitis Surgical History Hx of heart artery stent Status post laparoscopic cholecystectomy Social History Social History Household Members: Family Housing: House Alcohol intake: never Smoking Status: Current every day smoker Tobacco Type: Cigarette Cigarettes Per Day: 7 Years Smoked: 28 Second Hand Smoke Exposure: Yes Substance Use Type: Marijuana Advance Directives: No Advance Directives Information Provided: Yes service: No Current occupational status: employed
[2020-10-13 21:08] VITALS: BP 145/80; PULSE 80; RESP 16; TEMP 36.8; O2SAT 100
[2020-10-13] MEDS: oxyCODONE HCl Immed Release 5 MG TABLET 10 MG PO (21:17)
[2020-10-13] MEDS: Dicyclomine HCl 10 MG CAPSULE 20 MG PO (21:17)
== END 2020-10-13 21:20 | disposition home or self-care (01) ==
PROVIDERS: Emergency Provider Internal Medicine; PCP Nurse Practitioner Family
DX: K86.1 Other chronic pancreatitis (principal); E11.9 Type 2 diabetes mellitus without complications; I10 Essential (primary) hypertension; F10.10 Alcohol abuse, uncomplicated
CPT/HCPCS: 36415; 80053; 81003; 83690; 85025; 99283

== ENCOUNTER 2020-12-08 15:08 | Outpatient (REF) | payer OTHER, SELFPAY ==
--- NOTE | ~2020-12-08 | XR_ITS ---
EXAMINATION: XR FOOT, RIGHT CLINICAL INFORMATION: Cellulitis COMPARISON: None TECHNIQUE: AP, lateral, and oblique views of the right foot. FINDINGS: Bone alignment is normal. No fracture or dislocation is seen. The joint spaces are normal. There are calcaneal spurs. There is soft tissue arterial calcification. XR/XR foot RT min 3V IMPRESSION: Calcaneal spurs. Soft tissue arterial calcification.
== END 2020-12-08 15:09 | disposition home or self-care (01) ==
LOC: HO.HMGCX 15:08
PROVIDERS: PCP Nurse Practitioner Family; Visit Provider Nurse Practitioner Family
DX: L03.90 Cellulitis, unspecified (principal)
CPT/HCPCS: 73630

== ENCOUNTER 2021-01-04 11:05 | Outpatient (REF) | payer OTHER, SELFPAY ==
[2021-01-04 14:08] LABS: MANUAL DIFF FLAG NO
[2021-01-04 14:16] LABS: Basophils Absolute Auto 0.1 X10*3/uL (0.0-0.2); Basophils Percent Auto 0.6 % (0-2); Eosinophils Absolute Auto 0.9 X10*3/uL (0.0-0.4); Eosinophils Percent Auto 9.4 % (0-4); Hematocrit 45.5 % (42-52); Hemoglobin 14.6 g/dl (14.0-18.0); Imm Gran Abs Auto 0.08 X10*3/uL (0.00-0.03); Imm Gran Pct Auto 0.8 % (0.0-0.4); Lymphocytes Absolute Auto 2.5 X10*3/uL (1.2-4.9); Mean Corpuscular HGB Conc 32.1 g/dl (31.0-36.0); Mean Corpuscular Hemoglobin 27.8 pg (27.0-33.0); Mean Corpuscular Volume 86.5 fL (80-98); Mean Platelet Volume 11.8 fL (9.4-12.4); Monocytes Absolute Auto 0.8 X10*3/uL (0.1-1.2); Monocytes Percent Auto 8.5 % (2-11); Neutrophils Absolute Auto 5.2 X10*3/uL (2.0-8.3); Neutrophils Percent Auto 54.7 % (45-73); Platelet Count 201 X10*3/uL (160-400); Red Blood Count 5.26 X10*6/uL (4.60-5.80); Red Cell Distribution Width 13.8 % (11.0-16.0); White Blood Count 9.5 X10*3/uL (4.8-10.8)
[2021-01-04 14:42] LABS: Alanine Aminotransferase 24 U/L (0-40); Albumin Level 4.1 g/dL (3.5-5.0); Alkaline Phosphatase 85 U/L (39-117); Anion Gap 16 (12-20); Aspartate Amino Transferase 17 U/L (5-37); Bilirubin Total 0.5 mg/dL (0.0-1.0); Blood Urea Nitrogen 22 mg/dL (9-16); Calcium 9.2 mg/dL (8.4-10.2); Carbon Dioxide 24 mmol/L (22-29); Chloride 101 mmol/L (96-108); Cholesterol 207 mg/dL; Estimated Glomerular Filt Rate > 60; Glucose Fasting 275 mg/dL (60-99); HDL Cholesterol 42 mg/dL; LDL Cholesterol Calculated 137 mg/dl; Lipase 29 U/L (8-78); Potassium 4.3 mmol/L (3.3-5.1); Sodium 137 mmol/L (135-145); Total Protein 7.6 g/dL (6.5-8.0); Triglycerides 140 mg/dL
[2021-01-04 14:58] LABS: Creatinine Urine 120.74 mg/dL; Microalbum/Creatinine Ratio Ur 33.1 ug/mg cr
== END 2021-01-04 11:06 | disposition home or self-care (01) ==
LOC: HO.HMGCLDS 11:05
PROVIDERS: PCP Internal Medicine; Visit Provider Internal Medicine
DX: E11.65 Type 2 diabetes mellitus with hyperglycemia (principal); I10 Essential (primary) hypertension; I25.10 Atherosclerotic heart disease of native coronary artery without angina pectoris; K86.1 Other chronic pancreatitis; Z79.4 Long term (current) use of insulin
CPT/HCPCS: 36415; 80053; 80061; 82043; 83690; 85025

== ENCOUNTER → 2021-01-07 10:46 | Outpatient (BNVA) | payer OTHER, SELFPAY | PROVIDERS: PCP Internal Medicine; Visit Provider Nurse Practitioner Gerontology | DX: E11.42 Type 2 diabetes mellitus with diabetic polyneuropathy (principal); E08.65 Diabetes mellitus due to underlying condition with hyperglycemia; Z79.4 Long term (current) use of insulin; I10 Essential (primary) hypertension; E78.00 Pure hypercholesterolemia, unspecified | CPT/HCPCS: 82947; 99212 ==

== ENCOUNTER → 2021-01-18 14:21 | Outpatient (BNVA) | payer OTHER, SELFPAY | PROVIDERS: PCP Internal Medicine; Referring Provider Internal Medicine; Visit Provider Internal Medicine Cardiovascular Disease | DX: I25.10 Atherosclerotic heart disease of native coronary artery without angina pectoris (principal); I10 Essential (primary) hypertension | CPT/HCPCS: 93005; 99202 ==

== ENCOUNTER 2021-02-23 02:57 | Emergency (ER) | payer OTHER, SELFPAY ==
--- NOTE | ~2021-02-23 | XR_ITS ---
EXAMINATION: XR FOOT, LEFT CLINICAL INFORMATION: Foot pain. COMPARISON: 09/17/2020 TECHNIQUE: AP, lateral, and oblique views of the left foot. FINDINGS: Calcific atherosclerosis is present throughout the foot and ankle. Small enthesopathic spurs are present at the Achilles tendon insertion and plantar fascial origin on the calcaneus. Mild soft tissue swelling in the midfoot. No fracture or malalignment. Bone mineralization is normal. Joint spaces appear relatively well-preserved. No erosions. XR/XR foot LT min 3V IMPRESSION: No acute osseous abnormalities in the left foot. Enthesopathic spurs at the calcaneus. Mild soft tissue swelling in the midfoot.
[2021-02-23 03:19] VITALS: BP 171/94; PULSE 86; RESP 17; TEMP 36.8; O2SAT 98; BMI 31.3
[2021-02-23 03:23] VITALS: BP 171/94; PULSE 87; RESP 17; O2SAT 99
[2021-02-23] MEDS: oxyCODONE HCl Immed Release 5 MG TABLET PO (03:39)
[2021-02-23 03:53] LABS: MANUAL DIFF FLAG NO
[2021-02-23 03:54] LABS: Basophils Absolute Auto 0.1 X10*3/uL (0.0-0.2); Basophils Percent Auto 0.6 % (0-2); Eosinophils Absolute Auto 0.7 X10*3/uL (0.0-0.4); Eosinophils Percent Auto 6.6 % (0-4); Hematocrit 42.7 % (42-52); Imm Gran Abs Auto 0.05 X10*3/uL (0.00-0.03); Imm Gran Pct Auto 0.5 % (0.0-0.4); Lymphocytes Absolute Auto 2.9 X10*3/uL (1.2-4.9); Lymphocytes Percent Auto 29.3 % (20-40); Mean Corpuscular HGB Conc 32.8 g/dl (31.0-36.0); Mean Corpuscular Hemoglobin 27.9 pg (27.0-33.0); Mean Corpuscular Volume 85.1 fL (80-98); Monocytes Absolute Auto 0.9 X10*3/uL (0.1-1.2); Monocytes Percent Auto 9.4 % (2-11); Neutrophils Absolute Auto 5.4 X10*3/uL (2.0-8.3); Neutrophils Percent Auto 53.6 % (45-73); Platelet Count 218 X10*3/uL (160-400); Red Blood Count 5.02 X10*6/uL (4.60-5.80); Red Cell Distribution Width 13.8 % (11.0-16.0)
[2021-02-23 04:20] LABS: Anion Gap 13 (12-20); Blood Urea Nitrogen 17 mg/dL (9-16); Calcium 8.8 mg/dL (8.4-10.2); Carbon Dioxide 21 mmol/L (22-29); Chloride 106 mmol/L (96-108); Creatinine Clr Calc Pharmacy 108.5; Estimated Glomerular Filt Rate > 60; Glucose Random 271 mg/dL (60-115); Potassium 4.2 mmol/L (3.3-5.1); Sodium 136 mmol/L (135-145)
[2021-02-23 04:27] LABS: Erythrocyte Sedimentation Rate 12 MM/HR (0-15)
--- NOTE | 2021-02-23 04:51 | ED_ITS ---
HPI - Extremity Problem General Chief complaint: Extremity Problem Stated complaint: feet pain and ulcer Time Seen by Provider: 02/23/21 03:33 History of Present Illness HPI Narrative: Patient is a 55-year-old male with a history of diabetes. Presents today with having left foot pain. Patient's pain is been chronic in nature. He has a history of having an ulcer at the heel of the foot. Patient claims that has not changed. The size is same. The pain now is more in the lateral 5th metatarsal aspect of the foot. Also around the arch of the foot. Patient claims he has a history of plantar fasciitis. The pain is similar to mat. He also has history of neuropathy. Patient try to take Motrin to no avail. Presented to the emergency department. No fever no chills. No chest pain or shortness of breath. No cramping in the legs. Patient is from home. He is already on Neurontin. Related Data Home Medications Medication Instructions Recorded Confirmed metformin 1,000 mg PO BID 06/21/20 01/07/21 aspirin 81 mg PO DAILY 09/10/20 01/07/21 lisinopril 10 mg PO DAILY 09/26/20 01/07/21 acetaminophen 325 mg tablet 325 mg PO Q4H PRN 12/08/20 01/07/21 melatonin 3 mg tablet 3 mg PO BEDTIME PRN 12/08/20 01/07/21 ticagrelor 90 mg tablet 90 mg PO BID 12/08/20 01/07/21 Previous Rx's Medication Instructions Recorded walker [Ultra-Light Rollator] #1 ea 09/14/20 gabapentin 400 mg capsule 400 mg PO TID 30 Days #90 cap 12/08/20 lancets 28 gauge #100 ea 01/04/21 metoprolol succinate 50 mg 50 mg PO DAILY #30 tab 01/04/21 tablet,extended release 24 hr atorvastatin 20 mg tablet 20 mg PO BEDTIME #30 tab 01/07/21 blood sugar diagnostic #100 ea 01/07/21 blood-glucose meter #1 ea 01/07/21 empagliflozin 25 mg tablet 25 mg PO QAM #30 tab 01/07/21 insulin glargine 100 unit/mL (3 22 unit SUBCUT QPM #15 ml 01/07/21 mL) subcutaneous pen insulin lispro 100 unit/mL 10 unit SUBCUT TID 30 Days #9 ml 01/07/21 subcutaneous pen lancets 28 gauge #100 ea 01/07/21 pen needle, diabetic 32 gauge x #125 ea 01/07/21 omeprazole 40 mg capsule,delayed 40 mg PO DAILY #30 cap 01/26/21 release Allergies Allergy/AdvReac Type Severity Reaction Status Date / Time No Known Allergies Allergy Verified 02/23/21 03:24 [No Known Allergies*] Review of Systems Review of Systems: Constitutional: No Weight loss, No Fever, No Chills, No Night Sweats, No Fatigue, No Malaise ENT/Mouth: No Hearing loss, No Ear Pain, No Nasal Congestion, No Sinus Pain, No Hoarseness, No sore throat, No Rhinorrhea, No Swallowing Difficulty Eyes: No Eye Pain, No Swelling, No Redness, No Foreign Body, No Discharge, No Vision Changes Cardiovascular: No Chest Pain, No SOB, No Dyspnea on Exertion, No Orthopnea, No Edema, No Palpitations Respiratory: No Cough, No Sputum, No Wheezing, No Smoke Exposure, No Dyspnea Gastrointestinal: No Nausea, No Vomiting, No Diarrhea, No Constipation, No abdominal Pain, No Hematochezia, No Melena Genitourinary: no irregular bleeding, No Dysuria, No Urinary Frequency, No Hematuria, No Urinary Incontinence, No Urgency, No Flank Pain, No Urinary Flow Changes, No Hesitancy Musculoskeletal: Positive pain to the left foot Neuro: No Weakness, No Numbness, No Paresthesias, No Loss of Consciousness, No Dizziness, No Headache Psych: No Anxiety/Panic, No Depression, No SI/HI/AH/VH, No Social Issues, Heme/Lymph: No Bruising, No Bleeding,No Lymphadenopathy Endocrine: No Polyuria, No Polydipsia, No Temperature Intolerance [facility] Past Medical History Attestation statement: The following information was validated with the patient. Medical History Alcohol abuse Arthritis CAD (coronary artery disease) Chronic pancreatitis Diabetes mellitus with hyperglycemia, with long-term current use of insulin Essential hypertension Failure of outpatient treatment Hyperlipidemia Increased BMI Kidney calculus Type 2 diabetes mellitus with diabetic polyneuropathy Type 2 diabetes mellitus with hyperglycemia Surgical History Hx of heart artery stent Hx of lithotripsy Status post laparoscopic cholecystectomy Family History Family History Mother ID (myocardial infarction), Onset Age: 64 Diabetes mellitus HTN (hypertension) Maternal Grandmother Diabetes mellitus Social History Social History Household Members: Family Household Members Other:: and daughter Housing: House Do you presently have visiting nurse or other home services: No Alcohol intake: former Patient Tobacco Use Status: Former Tobacco user Cigarettes Per Day: 7 Years Smoked: 28 Second Hand Smoke Exposure: Yes Use of substances other than those prescribed or required for medical reasons: No Substance Use Type: Marijuana Advance Directives: No Advance Directives Information Provided: No service: No Current occupational status: employed Physical Exam Vital Signs: Vital Signs: Last Vital Signs Temp 98.2 F 02/23/21 03:19 Pulse 87 02/23/21 03:23 Resp 17 02/23/21 03:23 BP 171/94 H 02/23/21 03:23 Pulse Ox 99 02/23/21 03:23 Body Mass Index 31.3 Appearance: Alert. Oriented X3. No acute distress. Eyes: Pupils equal, round and reactive to light. ENT: Pharynx normal. Neck: Normal inspection. Neck supple. No lymph nodes noted. No crepitus CVS: Normal heart rate and rhythm. Pulses normal. Normal S1 and S2 Respiratory: No respiratory distress. Breath sounds normal. No Wheezing. No rales Abdomen: Soft and nontender. No rigidity. No distention. good BS x4 Skin: Skin warm and dry. Normal skin color. Normal skin turgor. Extremities: examination of the left foot showed an out chronic ulcer at the heel of the foot approximately 1 cm x 1 cm in size. Not erythematous. No discharge noted. Patient has pain over the 5th metatarsal and over the arch area. There is no gross deformities noted. There is no redness. There is no warmth to touch. There is good pulses at dorsalis pedis 2+. There is good sensation over the foot. Patient is able move his toes perfectly. Neuro: Oriented X 3. No motor deficit. No sensory deficit. Moving all extermities. No slurred speech MDM - Extremity (Nontraumatic) MDM Narrative Medical decision making narrative: Question plantar fasciitis causing pat ient's pain. X-ray did not show any acute evidence of fracture or osteomyelitis. Patient's sed rate is low. Making osteomyelitis unlikely. Patient is white count electrolytes are expected for a diabetic. He is well- appearing pain is more likely from plantar fasciitis or from chronic neuropathy. Given 1 dose of pain medicine here. Patient told to follow up on an outpatient basis. Lab Data Result diagrams: 02/23/21 03:48 02/23/21 03:48 Labs: Lab Results 02/23/21 02/23/21 02/23/21 Range/Units 03:48 03:48 03:48 WBC 10.0 (4.8-10.8) X10*3/uL RBC 5.02 (4.60-5.80) X10*6/uL Hgb 14.0 (14.0-18.0) g/dl Hct 42.7 (42-52) % MCV 85.1 (80-98) fL MCH 27.9 (27.0-33.0) pg MCHC 32.8 (31.0-36.0) g/dl RDW 13.8 (11.0-16.0) % Plt Count 218 (160-400) X10*3/uL MPV 11.0 (9.4-12.4) fL Immature Gran % (Auto) 0.5 H (0.0-0.4) % Neut % (Auto) 53.6 (45-73) % Lymph % (Auto) 29.3 (20-40) % [place] % (Auto) 9.4 (2-11) % Eos % (Auto) 6.6 H (0-4) % Baso % (Auto) 0.6 (0-2) % Lymph # (Auto) 2.9 (1.2-4.9) X10*3/uL [place] # (Auto) 0.9 (0.1-1.2) X10*3/uL Eos # (Auto) 0.7 H (0.0-0.4) X10*3/uL Baso # (Auto) 0.1 (0.0-0.2) X10*3/uL Abs Immat Gran (auto) 0.05 H (0.00-0.03) X10*3/uL Absolute Neuts (auto) 5.4 (2.0-8.3) X10*3/uL Absolute Nucleated RBC 0.000 (0.0-0.012) X10*3/uL Nucleated RBC % (auto) 0.0 (0.0-0.2) /100WBC ESR 12 (0-15) MM/HR Sodium 136 (135-145) mmol/L Potassium 4.2 (3.3-5.1) mmol/L Chloride 106 (96-108) mmol/L Carbon Dioxide 21 L (22-29) mmol/L Anion Gap 13 (12-20) BUN 17 H (9-16) mg/dL Creatinine 0.89 (0.5-1.4) mg/dL Estim Creat Clear Calc 108.5 Estimated GFR > 60 Random Glucose 271 H (60-115) mg/dL Calcium 8.8 (8.4-10.2) mg/dL Discharge Plan Discharge Clinical Impression: Neuropathy, Increased BMI Patient Disposition: Home, Self-Care Instructions: Diabetic Peripheral Neuropathy (ED), Plantar Fasciitis (ED) Prescriptions: No Action omeprazole 40 mg capsule,delayed release(DR/EC) 40 mg PO DAILY Qty: 30 RF: 1 metformin 1,000 mg Tablet 1,000 mg PO BID RF: 0 aspirin 81 mg Tablet,Delayed Release (Dr/Ec) 81 mg PO DAILY RF: 0 (DME) Ultra-Light Rollator Misc See Rx Instructions .ROUTE .MEDSUPPLY Qty: 1 RF: 0 lisinopril 10 mg Tablet 10 mg PO DAILY RF: 0 Brilinta 90 mg tablet 90 mg PO BID RF: 0 melatonin 3 mg tablet 3 mg PO BEDTIME PRN (Reason: insomnia) RF: 0 acetaminophen 325 mg tablet 325 mg PO Q4H PRN (Reason: pain) RF: 0 gabapentin 400 mg capsule 400 mg PO TID 30 Days Qty: 90 RF: 0 (DME) lancets [FreeStyle Lancets] 28 gauge misc See Rx Instructions .ROUTE .MEDSUPPLY Qty: 100 RF: 1 metoprolol succinate 50 mg tablet extended release 24 hr 50 mg PO DAILY Qty: 30 RF: 2 insulin lispro [Humalog KwikPen Insulin] 100 unit/mL insulin pen 10 unit subcut TID 30 Days Qty: 9 RF: 2 Jardiance 25 mg tablet 25 mg PO QAM Qty: 30 RF: 3 (DME) blood-glucose meter [FreeStyle Lite Meter] Kit See Rx Instructions .ROUTE .MEDSUPPLY Qty: 1 RF: 0 (DME) FreeStyle Lite Strips Strip See Rx Instructions .ROUTE .MEDSUPPLY Qty: 100 RF: 11 (DME) lancets [FreeStyle Lancets] 28 gauge misc See Rx Instructions .ROUTE .MEDSUPPLY Qty: 100 RF: 11 (DME) pen needle, diabetic [BD Ultra-Fine Michelle Pen Needle] 32 gauge x 5/32 needle See Rx Instructions .ROUTE .MEDSUPPLY Qty: 125 RF: 6 Lantus Solostar U-100 Insulin 100 unit/mL (3 mL) insulin pen 22 unit SUBCUT QPM Qty: 15 RF: 1 atorvastatin 20 mg tablet 20 mg PO BEDTIME Qty: 30 RF: 6 Referrals: Shanta Haney MD [Primary Care Provider] - 2 days
[2021-02-23 05:06] VITALS: BP 158/72; PULSE 77; RESP 17; O2SAT 99
== END 2021-02-23 05:19 | disposition home or self-care (01) ==
PROVIDERS: Emergency Provider Emergency Medicine Emergency Medical Services; PCP Internal Medicine
DX: E11.40 Type 2 diabetes mellitus with diabetic neuropathy, unspecified (principal); E11.621 Type 2 diabetes mellitus with foot ulcer; L97.429 Non-pressure chronic ulcer of left heel and midfoot with unspecified severity; I25.10 Atherosclerotic heart disease of native coronary artery without angina pectoris; I10 Essential (primary) hypertension; Z79.4 Long term (current) use of insulin; Z79.82 Long term (current) use of aspirin; Z79.899 Other long term (current) drug therapy
CPT/HCPCS: 36415; 73630; 80048; 85025; 85652; 99283; 99284

== ENCOUNTER 2021-03-12 20:42 | Inpatient (IN) | payer MEDICAID, SELFPAY ==
--- NOTE | ~2021-03-12 | MR_ITS ---
EXAMINATION: MRI OF THE LEFT FOOT WITHOUT AND WITH CONTRAST CLINICAL INFORMATION: Osteomyelitis. COMPARISON: MRI of the left foot August 2020. TECHNIQUE: MRI of the left foot was performed before and after contrast. 10 mL of Gadavist contrast given intravenously. FINDINGS: There is image degrading motion artifact noted throughout the examination slightly limited in diagnostic information available. SUBCUTANEOUS SOFT TISSUES: There is a superficial defect/ulceration overlying the heel region superficial to the calcaneal tuberosity. This defect measures approximately 2 cm transverse and 1.6 cm craniocaudal. The capsular defect measures only approximately 3 mm. There is concomitant additional abnormal decreased T1 and increased T2 signal surrounding the defect. There is no concomitant enhancement of this portion of the subcutaneous soft tissues. There is minimal additional signal abnormality in the calcaneal fat pad anterior to this document T1 bright and T2 with some enhancement, compatible with cellulitis. The underlying bone/calcaneus is normal without evidence of osteomyelitis. Additional scattered signal abnormality in the subcutaneous soft tissues in the visualized portion of the ankle and foot without contrast enhancement, compatible with edema. MUSCLES/TENDONS: The tendons are intact. As before, there is mild increased T2 signal without enhancement of the abductor digiti minimi muscle. PLANTAR FASCIA: Intact. NEUROVASCULAR STRUCTURES: Intact. LIGAMENTS: Intact. MR/MR foot LT wo/w con IMPRESSION: Superficial soft tissue ulceration over the heel region superficial to the calcaneal tuberosity. Minimal signal abnormality compatible with subtle cellulitis of calcaneal fat pad. No evidence for osteomyelitis. Mild edema in the abductor digiti minimi muscle, similar to prior. The possibility of acute Sebastian's neuropathy is raised.
--- NOTE | ~2021-03-12 | XR_ITS ---
EXAMINATION: XR FOOT, LEFT CLINICAL INFORMATION: Rule out osteomyelitis, wound great toe COMPARISON: 02/23/2021 TECHNIQUE: AP, lateral, and oblique views of the left foot. FINDINGS: Osseous alignment is anatomic. No acute fracture is seen. No osseous erosions identified. Posterior and plantar calcaneal spurring is noted with some suspected overlying posterior soft tissue swelling. Extensive vascular calcification is present. XR/XR foot LT 2V IMPRESSION: No radiographic findings to suggest osteomyelitis. Soft tissue swelling overlying the posterior calcaneus. Since radiographic sensitivity for early osteomyelitis is relatively limited, however, consider further evaluation with MRI if clinically warranted.
--- NOTE | ~2021-03-12 | XR_ITS ---
EXAMINATION: XR FOOT, RIGHT CLINICAL INFORMATION: Wound on heel, rule out osteomyelitis COMPARISON: 12/08/2020 TECHNIQUE: AP, lateral, and oblique views of the right foot. FINDINGS: Osseous alignment is anatomic. No acute fracture is seen. Posterior and plantar calcaneal spurs are noted with some overlying soft tissue swelling. No osseous erosions identified. Extensive vascular calcification is present. XR/XR foot RT 2V IMPRESSION: No radiographic findings to suggest osteomyelitis. Since radiographic sensitivity for early osteomyelitis is relatively limited, however, consider further evaluation with MRI if clinically warranted.
[2021-03-12 21:52] VITALS: BP 159/73; PULSE 80; RESP 18; TEMP 36.8; O2SAT 98; BMI 32.0
--- NOTE | 2021-03-12 22:53 | PC.NURSE ---
given ice. resting quietly. nad. states pain is severe. awaits provider
[2021-03-12 22:54] LABS: Glucose, Whole Blood 168 mg/dL (60-115)
[2021-03-12 23:15] VITALS: BP 126/74; PULSE 73; RESP 18; TEMP 37.1; O2SAT 98
[2021-03-12 23:38] LABS: Basophils Absolute Auto 0.1 X10*3/uL (0.0-0.2); Basophils Percent Auto 0.5 % (0-2); Eosinophils Absolute Auto 0.4 X10*3/uL (0.0-0.4); Eosinophils Percent Auto 3.6 % (0-4); Hematocrit 45.1 % (42-52); Hemoglobin 14.8 g/dl (14.0-18.0); Imm Gran Abs Auto 0.08 X10*3/uL (0.00-0.03); Imm Gran Pct Auto 0.7 % (0.0-0.4); Lymphocytes Absolute Auto 3.5 X10*3/uL (1.2-4.9); Lymphocytes Percent Auto 28.6 % (20-40); Mean Corpuscular HGB Conc 32.8 g/dl (31.0-36.0); Mean Corpuscular Hemoglobin 27.7 pg (27.0-33.0); Mean Corpuscular Volume 84.3 fL (80-98); Mean Platelet Volume 10.7 fL (9.4-12.4); Monocytes Absolute Auto 1.1 X10*3/uL (0.1-1.2); Monocytes Percent Auto 8.5 % (2-11); Neutrophils Absolute Auto 7.2 X10*3/uL (2.0-8.3); Neutrophils Percent Auto 58.1 % (45-73); Platelet Count 218 X10*3/uL (160-400); Red Blood Count 5.35 X10*6/uL (4.60-5.80); Red Cell Distribution Width 14.3 % (11.0-16.0); White Blood Count 12.3 X10*3/uL (4.8-10.8)
[2021-03-12 23:39] LABS: MANUAL DIFF FLAG NO
[2021-03-13] VITALS (10 sets, daily range): BP systolic 118–175; BP diastolic 63–87; PULSE 66–79; RESP 15–18; TEMP 36.2–37.2; O2SAT 97–99
[2021-03-13 00:04] LABS: Alanine Aminotransferase 33 U/L (0-40); Albumin Level 3.7 g/dL (3.5-5.0); Alkaline Phosphatase 71 U/L (39-117); Anion Gap 15 (12-20); Aspartate Amino Transferase 19 U/L (5-37); Bilirubin Total 0.3 mg/dL (0.0-1.0); Blood Urea Nitrogen 27 mg/dL (9-16); Carbon Dioxide 22 mmol/L (22-29); Chloride 104 mmol/L (96-108); Creatinine Clr Calc Pharmacy 89.6; Estimated Glomerular Filt Rate > 60; Glucose Random 162 mg/dL (60-115); Potassium 4.2 mmol/L (3.3-5.1); Sodium 137 mmol/L (135-145); Total Protein 7.1 g/dL (6.5-8.0)
[2021-03-13 00:10] LABS: Lactic Acid 1.1 mmol/L (0.5-2.0)
--- NOTE | 2021-03-13 00:29 | ED_ITS ---
HPI - General Adult General Chief complaint: Extremity Injury, Lower Stated complaint: foot pain Time Seen by Provider: 03/12/21 23:13 Source: patient and hospitality host Mode of arrival: ambulatory History of Present Illness HPI narrative: 55-year-old male with history of diabetes, hypertension who presents with multiple chronic, nonhealing foot ulcers and reporting worsening left foot pain and states that he was last seen at the wound clinic approximately 2 weeks ago at which time he was directed to undergo clearance by cardiology for further evaluation and plans to be seen by vascular surgery. He states that his foot pain is now so bad that is affecting his ability to perform his ADLs. He denies any fever, chills, shortness of breath, chest pain/palpitations. Related Data Home Medications Medication Instructions Recorded Confirmed metformin 1,000 mg PO BID 06/21/20 03/04/21 aspirin 81 mg PO DAILY 09/10/20 03/04/21 lisinopril 10 mg PO DAILY 09/26/20 03/04/21 acetaminophen 325 mg tablet 325 mg PO Q4H PRN 12/08/20 03/04/21 melatonin 3 mg tablet 3 mg PO BEDTIME PRN 12/08/20 03/04/21 ticagrelor 90 mg tablet 90 mg PO BID 12/08/20 03/04/21 Previous Rx's Medication Instructions Recorded walker [Ultra-Light Rollator] #1 ea 09/14/20 gabapentin 400 mg capsule 400 mg PO TID 30 Days #90 cap 12/08/20 lancets 28 gauge #100 ea 01/04/21 metoprolol succinate 50 mg 50 mg PO DAILY #30 tab 01/04/21 tablet,extended release 24 hr atorvastatin 20 mg tablet 20 mg PO BEDTIME #30 tab 01/07/21 blood sugar diagnostic #100 ea 01/07/21 blood-glucose meter #1 ea 01/07/21 empagliflozin 25 mg tablet 25 mg PO QAM #30 tab 01/07/21 insulin glargine 100 unit/mL (3 22 unit SUBCUT QPM #15 ml 01/07/21 mL) subcutaneous pen insulin lispro 100 unit/mL 10 unit SUBCUT TID 30 Days #9 ml 01/07/21 subcutaneous pen lancets 28 gauge #100 ea 01/07/21 pen needle, diabetic 32 gauge x #125 ea 01/07/21 omeprazole 40 mg capsule,delayed 40 mg PO DAILY #30 cap 01/26/21 release amoxicillin 875 mg-potassium 1 tab PO BID #20 tab 03/04/21 clavulanate 125 mg tablet oxycodone-acetaminophen 5 mg-325 1 tab PO Q6H PRN #14 tab 03/04/21 mg tablet prednisone 20 mg tablet 20 mg PO .COMPLEX #18 tab 03/04/21 Allergies Allergy/AdvReac Type Severity Reaction Status Date / Time No Known Allergies Allergy Verified 03/12/21 21:52 [No Known Allergies*] Review of Systems Review of Systems: Pertinent positives and negatives as stated in HPI 10 point review of systems is otherwise negative. [facility] Past Medical History Source: nursing notes reviewed Medical History Alcohol abuse Arthritis CAD (coronary artery disease) Chronic pancreatitis Diabetes mellitus with hyperglycemia, with long-term current use of insulin Essential hypertension Failure of outpatient treatment Hyperlipidemia Increased BMI Kidney calculus Type 2 diabetes mellitus with diabetic polyneuropathy Type 2 diabetes mellitus with hyperglycemia Surgical History Hx of heart artery stent Hx of lithotripsy Status post laparoscopic cholecystectomy Family History Family History Mother [place] (myocardial infarction), Onset Age: 64 Diabetes mellitus HTN (hypertension) Maternal Grandmother Diabetes mellitus Social History Social History Household Members: Family Household Members Other:: and daughter Housing: House Do you presently have visiting nurse or other home services: No Alcohol intake: former Patient Tobacco Use Status: Former Tobacco user Cigarettes Per Day: 7 Years Smoked: 28 Second Hand Smoke Exposure: Yes Substance Use Type: Marijuana Advance Directives: No Advance Directives Information Provided: No service: No Current occupational status: employed Physical Exam Vital Signs: Vital Signs: Last Vital Signs Temp 98.5 F 03/13/21 00:49 Pulse 73 03/13/21 00:49 Resp 16 03/13/21 00:49 BP 118/63 03/13/21 00:49 Pulse Ox 99 03/13/21 00:49 Body Mass Index 32.0 VITAL SIGNS: Reviewed. GENERAL: Well developed, well nourished, in no acute distress. HEAD: Normocephalic/atraumatic EYES: PERRLA, EOMI EARS: Ext canals without abnormality OROPHARYNX: no oral lesions noted, posterior pharynx clear LUNGS: Normal breath sounds. No adventitious sounds or accessory muscle use. SpO2<99> CARDIOVASCULAR: Regular rate and rhythm without noted murmurs, no JVD or lower extremity edema. ABDOMEN: Soft, non-tender, non-distended with bowel sounds. RIGHT FOOT: Nonhealing ulcer/wound to right great toe no evidence of erythema, induration, purulence drainage the base appears dry LEFT FOOT: There is erythema to the entire heel area with to nonhealing ulcers without purulence drainage SKIN: Inspection of the skin reveals no rashes, see specific description of ulcers under extremity. NEUROLOGIC: Alert and oriented x 4. Strength and sensation to light touch were grossly intact x 4. Course Course Course Narrative: 55-year-old male with history and clinical presentation sugg estive nonhealing foot ulcers and noted left foot cellulitis. Patient will receive antibiotics although there is no evidence to suggest sepsis although patient will be provided with antibiotics. Review of all investigations consistent with left foot cellulitis, antibiotics were provided as well as analgesics for the pain. As patient has already been on a course of oral antibiotics, would benefit from IV antibiotics as well as further vascular investigations. I discussed the case with inpatient hospitalist who is agreeable for admission. Medical Decision Making Lab Data Result diagrams: 03/12/21 23:27 03/12/21 23:27 Labs: Lab Results 03/12/21 03/12/21 03/12/21 Range/Units 22:49 23:27 23:27 WBC 12.3 H (4.8-10.8) X10*3/uL RBC 5.35 (4.60-5.80) X10*6/uL Hgb 14.8 (14.0-18.0) g/dl Hct 45.1 (42-52) % MCV 84.3 (80-98) fL MCH 27.7 (27.0-33.0) pg MCHC 32.8 (31.0-36.0) g/dl RDW 14.3 (11.0-16.0) % Plt Count 218 (160-400) X10*3/uL MPV 10.7 (9.4-12.4) fL Immature Gran % (Auto) 0.7 H (0.0-0.4) % Neut % (Auto) 58.1 (45-73) % Lymph % (Auto) 28.6 (20-40) % [place] % (Auto) 8.5 (2-11) % Eos % (Auto) 3.6 (0-4) % Baso % (Auto) 0.5 (0-2) % Lymph # (Auto) 3.5 (1.2-4.9) X10*3/uL [place] # (Auto) 1.1 (0.1-1.2) X10*3/uL Eos # (Auto) 0.4 (0.0-0.4) X10*3/uL Baso # (Auto) 0.1 (0.0-0.2) X10*3/uL Abs Immat Gran (auto) 0.08 H (0.00-0.03) X10*3/uL Absolute Neuts (auto) 7.2 (2.0-8.3) X10*3/uL Absolute Nucleated RBC 0.000 (0.0-0.012) X10*3/uL Nucleated RBC % (auto) 0.0 (0.0-0.2) /100WBC Sodium 137 (135-145) mmol/L Potassium 4.2 (3.3-5.1) mmol/L Chloride 104 (96-108) mmol/L Carbon Dioxide 22 (22-29) mmol/L Anion Gap 15 (12-20) BUN 27 H D (9-16) mg/dL Creatinine 1.09 (0.5-1.4) mg/dL Estim Creat Clear Calc 89.6 Estimated GFR > 60 POC Glucose 168 H (60-115) mg/dL Random Glucose 162 H D (60-115) mg/dL Lactic Acid (0.5-2.0) mmol/L Calcium 9.0 (8.4-10.2) mg/dL Total Bilirubin 0.3 (0.0-1.0) mg/dL AST 19 (5-37) U/L ALT 33 (0-40) U/L Alkaline Phosphatase 71 (39-117) U/L Total Protein 7.1 (6.5-8.0) g/dL Albumin 3.7 (3.5-5.0) g/dL 03/12/21 Range/Units 23:27 WBC (4.8-10.8) X10*3/uL RBC (4.60-5.80) X10*6/uL Hgb (14.0-18.0) g/dl Hct (42-52) % MCV (80-98) fL MCH (27.0-33.0) pg MCHC (31.0-36.0) g/dl RDW (11.0-16.0) % Plt Count (160-400) X10*3/uL MPV (9.4-12.4) fL Immature Gran % (Auto) (0.0-0.4) % Neut % (Auto) (45-73) % Lymph % (Auto) (20-40) % [place] % (Auto) (2-11) % Eos % (Auto) (0-4) % Baso % (Auto) (0-2) % Lymph # (Auto) (1.2-4.9) X10*3/uL [place] # (Auto) (0.1-1.2) X10*3/uL Eos # (Auto) (0.0-0.4) X10*3/uL Baso # (Auto) (0.0-0.2) X10*3/uL Abs Immat Gran (auto) (0.00-0.03) X10*3/uL Absolute Neuts (auto) (2.0-8.3) X10*3/uL Absolute Nucleated RBC (0.0-0.012) X10*3/uL Nucleated RBC % (auto) (0.0-0.2) /100WBC Sodium (135-145) mmol/L Potassium (3.3-5.1) mmol/L Chloride (96-108) mmol/L Carbon Dioxide (22-29) mmol/L Anion Gap (12-20) BUN (9-16) mg/dL Creatinine (0.5-1.4) mg/dL Estim Creat Clear Calc Estimated GFR POC Glucose (60-115) mg/dL Random Glucose (60-115) mg/dL Lactic Acid 1.1 (0.5-2.0) mmol/L Calcium (8.4-10.2) mg/dL Total Bilirubin (0.0-1.0) mg/dL AST (5-37) U/L ALT (0-40) U/L Alkaline Phosphatase (39-117) U/L Total Protein (6.5-8.0) g/dL Albumin (3.5-5.0) g/dL Discharge Plan Discharge Clinical Impression: Cellulitis of left foot, Chronic 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, Ulcer of left heel Prescriptions: No Action omeprazole 40 mg capsule,delayed release(DR/EC) 40 mg PO DAILY Qty: 30 RF: 1 metformin 1,000 mg Tablet 1,000 mg PO BID RF: 0 aspirin 81 mg Tablet,Delayed Release (Dr/Ec) 81 mg PO DAILY RF: 0 (DME) Ultra-Light Rollator Misc See Rx Instructions .ROUTE .MEDSUPPLY Qty: 1 RF: 0 lisinopril 10 mg Tablet 10 mg PO DAILY RF: 0 Brilinta 90 mg tablet 90 mg PO BID RF: 0 melatonin 3 mg tablet 3 mg PO BEDTIME PRN (Reason: insomnia) RF: 0 acetaminophen 325 mg tablet 325 mg PO Q4H PRN (Reason: pain) RF: 0 gabapentin 400 mg capsule 400 mg PO TID 30 Days Qty: 90 RF: 0 prednisone 20 mg tablet 20 mg PO .COMPLEX Qty: 18 RF: 0 amoxicillin-pot clavulanate [Augmentin] 875-125 mg tablet 1 tab PO BID Qty: 20 RF: 0 oxycodone-acetaminophen [Percocet] 5-325 mg tablet 1 tab PO Q6H PRN (Reason: pain) Qty: 14 RF: 0 (DME) lancets [FreeStyle Lancets] 28 gauge misc See Rx Instructions .ROUTE .MEDSUPPLY Qty: 100 RF: 1 metoprolol succinate 50 mg tablet extended release 24 hr 50 mg PO DAILY Qty: 30 RF: 2 insulin lispro [Humalog KwikPen Insulin] 100 unit/mL insulin pen 10 unit subcut TID 30 Days Qty: 9 RF: 2 Jardiance 25 mg tablet 25 mg PO QAM Qty: 30 RF: 3 (DME) blood-glucose meter [FreeStyle Lite Meter] Kit See Rx Instructions .ROUTE .MEDSUPPLY Qty: 1 RF: 0 (DME) FreeStyle Lite Strips Strip See Rx Instructions .ROUTE .MEDSUPPLY Qty: 100 RF: 11 (DME) lancets [FreeStyle Lancets] 28 gauge misc See Rx Instructions .ROUTE .MEDSUPPLY Qty: 100 RF: 11 (DME) pen needle, diabetic [BD Ultra-Fine Michelle Pen Needle] 32 gauge x 5/32 needle See Rx Instructions .ROUTE .MEDSUPPLY Qty: 125 RF: 6 Lantus Solostar U-100 Insulin 100 unit/mL (3 mL) insulin pen 22 unit SUBCUT QPM Qty: 15 RF: 1 atorvastatin 20 mg tablet 20 mg PO BEDTIME Qty: 30 RF: 6
[2021-03-13] MEDS: Acetaminophen 325 MG TABLET 975 MG PO (00:51)
[2021-03-13] MEDS: Piperacillin Sodium/Tazobactam 3.375 GM in 0.9 % Sodium Chloride 50 ML IV ×4 (01:52→21:30)
[2021-03-13] MEDS: 0.9 % Sodium Chloride 1,000 ML 999 ML IV (01:52)
[2021-03-13 01:58] LABS: Glucose Urine UA >=1000 MG/DL (NEG); Leukocyte Esterase Urine NEG (NEG); Nitrite Urine NEG (NEG); PH 5.5 (5.0-8.0); Urine Blood NEG (NEG); Urine Ketones NEG (NEG); Urine Protein NEG (NEG-TRACE)
[2021-03-13 02:27] LABS: COVID-19 Test Negative (Negative)
[2021-03-13 02:34] LABS: Appearance Urine CLEAR; Color Urine YELLOW
[2021-03-13 02:42] LABS: RBC Urine 0-2 /HPF (0); WBC Urine 0-2 /HPF (0-4)
[2021-03-13 02:43] LABS: Squamous Epithelial Cell Urine 1+ /LPF
--- NOTE | 2021-03-13 04:28 | PC.NURSE ---
This rn called pharmacy to verify meds and to adjust dosing time for zosyn as it was given at 0130 this AM and should not yet be due. Per pharmacy, meds to be verified shortly, then this RN will medicate per orders.
--- NOTE | 2021-03-13 06:00 | PC.NURSE ---
pt's lantus held as it was not verified by pharmacy in time and pt to soon receive AM lispro and morning meds.
--- NOTE | 2021-03-13 06:31 | PM.IMHP ---
History of Present Illness Date of Service: 03/13/21 Chief Complaint: Right heel pain 55-year-old Persian-speaking male with a past medical history of hypertension, diabetes, hyperlipidemia, chronic pancreatitis, history of CAD, history of kidney stones, who presents to the hospital with complaints of left heel pain. Patient reports that he has an ulcer in the base of left heel that is nonhealing, patient reports is been going on for 1 month but has worsened in the past 1 week where his pain is 10/10 now and he has difficulty ambulating due to the pain. He is not remember how the wound started. He denies any drainage from the wound, denies any fever, has chills, no chest pain, no shortness of breath, no abdominal pain, no nausea or vomiting, no diarrhea constipation, no urinary symptoms and no lower extremity edema besides the heel. Patient also reports that there is a right big toe wound as well but that is not painful, and not draining. Patient reports that he also was treated with antibiotics recently with no improvement. No significant abnormal vitals except for elevated blood pressure in the 150s systolic Labs are significant for WBC count 12.3, BUN of 27, creatinine of 1.09, UA negative, X-ray of the foot shows no radiographic findings to suggest osteomyelitis. Patient will be admitted for further management Review of Systems Review of Systems: Yes all other systems are reviewed and are negative [facility] Medical History Alcohol abuse Arthritis CAD (coronary artery disease) Chronic pancreatitis Diabetes mellitus with hyperglycemia, with long-term current use of insulin Essential hypertension Failure of outpatient treatment Hyperlipidemia Increased BMI Kidney calculus Type 2 diabetes mellitus with diabetic polyneuropathy Type 2 diabetes mellitus with hyperglycemia Family History Mother [place] (myocardial infarction), Onset Age: 64 Diabetes mellitus HTN (hypertension) Maternal Grandmother Diabetes mellitus Surgical History Hx of heart artery stent Hx of lithotripsy Status post laparoscopic cholecystectomy Social History Household Members: Family Household Members Other:: and daughter Housing: House Do you presently have visiting nurse or other home services: No Alcohol intake: current Alcohol intake frequency: holidays/special occasions only Patient Tobacco Use Status: Former Tobacco user Cigarettes Per Day: 7 Years Smoked: 28 Second Hand Smoke Exposure: Yes Use of substances other than those prescribed or required for medical reasons: No Substance Use Type: Marijuana Advance Directives: No Advance Directives Information Provided: No service: No Current occupational status: employed Meds Allergies Allergy/AdvReac Type Severity Reaction Status Date / Time No Known Allergies Allergy Verified 03/12/21 21:52 [No Known Allergies*] Active Medications: Current Medications Generic Name Dose Route Start Last Admin Trade Name Freq PRN Reason Stop Dose Admin Acetaminophen 650 mg 03/13/21 03:53 Acetaminophen 325 Mg Tablet PO Q6H PRN Pain, Mild (Pain Scale 1-3) Docusate Sodium 100 mg 03/13/21 03:53 Docusate Sodium 100 Mg Capsule PO DAILY PRN Constipation Gabapentin 300 mg 03/13/21 09:00 Gabapentin 300 Mg Capsule PO TID [facility] Heparin Sodium (Porcine) 5,000 unit 03/13/21 06:00 Heparin Sodium,Porcine 5,000 Unit/Ml Vial SUBCUT Q12H [facility] Vancomycin HCl 1,500 mg/ 500 mls @ 333.333 mls/hr 03/13/21 06:00 Sodium Chloride IV 03/13/21 07:29 ONCE ONE Ceftriaxone Sodium 1 gm/ 50 mls @ 100 mls/hr 03/13/21 03:53 Sodium Chloride IV Q24H [facility] Piperacillin Sod/Tazobactam 50 mls @ 100 mls/hr 03/13/21 08:00 Sod 3.375 gm/ Sodium Chloride IV Q6H [facility] Insulin Glargine 22 unit 03/13/21 03:53 03/13/21 06:00 Insulin Glargine,Hum.Rec.Anlog 100 Unit/Ml 10 Ml Vial SUBCUT Not Given BEDTIME [facility] Metoprolol Succinate 50 mg 03/13/21 09:00 Metoprolol Succinate Er 50 Mg Tab.Er.24h PO DAILY [facility] Protocol Ondansetron HCl 4 mg 03/13/21 03:53 Ondansetron Hcl 4 Mg/2 Ml Vial IVPUSH Q8H PRN Nausea and Vomiting Oxycodone HCl 5 mg 03/13/21 03:53 Oxycodone Hcl Immed Release 5 Mg Tablet PO Q6H PRN Pain, Severe (Pain Scale 7-10) Pharmacy Consult 1 each 03/13/21 03:53 Consult Rx Vancomycin Dosing MISCELLANE DAILY PRN Consult order Prednisone 60 mg 03/13/21 09:00 Prednisone 20 Mg Tablet PO DAILY [facility] Sodium Chloride 3 ml 03/13/21 08:00 0.9 % Sodium Chloride Flush 3 Ml Syringe IVFLUSH QSHIFT [facility] Ticagrelor 90 mg 03/13/21 09:00 Ticagrelor 90 Mg Tablet PO BID [facility] Home Medications Medication Instructions Recorded Confirmed Last Taken Type amoxicillin-pot clavulanate 1 tab PO BID 03/13/21 03/13/21 Unknown History empagliflozin [Jardiance] 1 tab PO QAM 03/13/21 03/13/21 Unknown History gabapentin 300 mg PO TID 03/13/21 03/13/21 Unknown History insulin glargine [Lantus Solostar 22 unit SUBCUT QPM 03/13/21 03/13/21 Unknown History U-100 Insulin] metoprolol succinate 1 tab PO DAILY 03/13/21 03/13/21 Unknown History prednisone 60 mg PO DAILY 03/13/21 03/13/21 Unknown History ticagrelor [Brilinta] 1 tab PO BID 03/13/21 03/13/21 Unknown History Physical Exam Vital Signs and Narrative: Vital Signs: Last Vital Signs Temp 98.5 F 03/13/21 00:49 Pulse 79 03/13/21 06:14 Resp 18 03/13/21 06:14 BP 159/80 H 03/13/21 06:14 Pulse Ox 98 03/13/21 06:14 Body Mass Index 32.0 Const: General: cooperative and no acute distress Orientation/consciousness: patient oriented x3 Eyes: General: appearance normal, both eyes and all related structures Resp: Effort & Inspection: normal respiratory effort and able to speak in complete sentences Cardio: Rate: regular rate Rhythm: regular rhythm GI: Palpation (GI): Soft to palpation Auscultation: normal bowel sounds Skin: Other: Erythema of left heel, a dry non draining open ulcer at the base of the left heel Neuro: General: patient oriented x3 Cognition (Neuro): normal cognition Extrem: Other: Erythema, significant tenderness, and swelling of the left heel, ulcer at the base of the heel with no drainage General: Yes normal to inspection Results Labs CBC and Chem 7: 03/12/21 23:27 07/16/21 23:27 Labs: Laboratory Results - last 24 hr 03/12/21 03/12/21 03/12/21 22:49 23:27 23:27 MCV 84.3 MCH 27.7 MCHC 32.8 RDW 14.3 Plt Count 218 MPV 10.7 Immature Gran % (Auto) 0.7 H Neut % (Auto) 58.1 Lymph % (Auto) 28.6 [place] % (Auto) 8.5 Eos % (Auto) 3.6 Baso % (Auto) 0.5 Lymph # (Auto) 3.5 [place] # (Auto) 1.1 Eos # (Auto) 0.4 Baso # (Auto) 0.1 Abs Immat Gran (auto) 0.08 H Absolute Neuts (auto) 7.2 Absolute Nucleated RBC 0.000 Nucleated RBC % (auto) 0.0 Anion Gap 15 Estim Creat Clear Calc 89.6 Estimated GFR > 60 POC Glucose 168 H Random Glucose 162 H D Lactic Acid Calcium 9.0 Total Bilirubin 0.3 AST 19 ALT 33 Alkaline Phosphatase 71 Total Protein 7.1 Albumin 3.7 Urine Color Urine Appearance Urine pH Ur Specific [place] Urine Protein Urine Glucose (UA) Urine Ketones Urine Blood Urine Nitrite Ur Leukocyte Esterase Urine RBC Urine WBC Ur Squamous Epith Cells Urine Bacteria COVID-19 ([facility]) COVID-19 Clin Com 03/12/21 03/13/21 03/13/21 23:27 01:30 01:51 MCV MCH MCHC RDW Plt Count MPV Immature Gran % (Auto) Neut % (Auto) Lymph % (Auto) [place] % (Auto) Eos % (Auto) Baso % (Auto) Lymph # (Auto) [place] # (Auto) Eos # (Auto) Baso # (Auto) Abs Immat Gran (auto) Absolute Neuts (auto) Absolute Nucleated RBC Nucleated RBC % (auto) Anion Gap Estim Creat Clear Calc Estimated GFR POC Glucose Random Glucose Lactic Acid 1.1 Calcium Total Bilirubin AST ALT Alkaline Phosphatase Total Protein Albumin Urine Color YELLOW Urine Appearance CLEAR Urine pH 5.5 Ur Specific [place] 1.020 Urine Protein NEG Urine Glucose (UA) >=1000 H Urine Ketones NEG Urine Blood NEG Urine Nitrite NEG Ur Leukocyte Esterase NEG Urine RBC 0-2 Urine WBC 0-2 Ur Squamous Epith Cells 1+ Urine Bacteria NONE COVID-19 ([facility]) Negative COVID-19 Clin Com See Note Imaging Radiologist's Impressions: Impressions Foot X-Ray 03/12/21 23:50 IMPRESSION: No radiographic findings to suggest osteomyelitis. Soft tissue swelling overlying the posterior calcaneus. Since radiographic sensitivity for early osteomyelitis is relatively limited, however, consider further evaluation with MRI if clinically warranted. Foot X-Ray 03/12/21 23:50 IMPRESSION: No radiographic findings to suggest osteomyelitis. Since radiographic sensitivity for early osteomyelitis is relatively limited, however, consider further evaluation with MRI if clinically warranted. Assessment and Plan (1) Cellulitis of left foot: Status: Acute (2) Chronic 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: Status: Acute (3) Diabetic foot ulcer: Status: Acute (4) Leukocytosis: Status: Acute This is a 55-year-old male with past medical history of diabetes who presents to the hospital with pain in his heel # diabetic foot ulcer of the left heel with cellulitis - erythema, tenderness, edema - no drainage from the ulcer - patient afebrile but has leukocytosis - failed outpatient therapy - foot x-ray 90 - will obtain ESR CRP - MRI of the left foot - uric acid given the severe tenderness and erythema - infectious disease consult - follow culture # chronic 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 - no evidence of infection - wound consult # leukocytosis - most likely due to above - antibiotic - follow CBC # diabetes - continue him insulin - add low-dose sliding scale - diabetic diet # history of CAD - continue metoprolol and Brilinta DVT prophylaxis: Heparin subQ Quality Stroke Does the patient have a stroke diagnosis?: No VTE Prior VTE?: No VTE Risk Level:: Medical - moderate - high VTE Device Contraindication: Treatment Not Indicated VTE Drug Contraindication: Patient Refused
[2021-03-13] MEDS: vancomycin HCL 1,500 MG in 0.9 % Sodium Chloride 500 ML 333.33 MG IV (07:47)
[2021-03-13] MEDS: Heparin Sodium,Porcine 5,000 UNIT/ML VIAL 5000 UNIT SUBCUT ×2 (07:48→18:21)
[2021-03-13] MEDS: Gabapentin 300 MG CAPSULE PO ×3 (07:48→21:31)
[2021-03-13] MEDS: oxyCODONE HCl Immed Release 5 MG TABLET PO (07:58)
[2021-03-13 08:37] LABS: Glucose, Whole Blood 263 mg/dL (60-115)
[2021-03-13] MEDS: Insulin Lispro 100 UNIT/ML 3 ML VIAL SUBCUT ×4 (08:37→21:30)
[2021-03-13 08:40] LABS: C Reactive Protein 0.78 mg/dL (< or = 0.50); Uric Acid 5.3 mg/dL (3.4-7.0)
[2021-03-13 08:51] LABS: Erythrocyte Sedimentation Rate 11 MM/HR (0-15)
[2021-03-13] MEDS: Acetaminophen 325 MG TABLET 650 MG PO (09:46)
[2021-03-13] MEDS: predniSONE 20 MG TABLET 60 MG PO (09:48)
[2021-03-13] MEDS: Metoprolol Succinate ER 50 MG TAB.ER.24H PO (09:48)
[2021-03-13] MEDS: Ticagrelor 90 MG TABLET PO ×2 (09:48→21:31)
[2021-03-13] MEDS: Morphine Sulfate 2 MG/ML CARTRIDGE IVPUSH ×3 (11:26→19:44)
[2021-03-13 11:50] LABS: Glucose, Whole Blood 187 mg/dL (60-115)
--- NOTE | 2021-03-13 13:01 | P.PNIM_ITS ---
Subjective Subjective Date of Service: 03/13/21 Interval History: History taken in Faroese from pt C/o sev pain from L heel ulcer no fever/chills no nausea/vomiting Physical Exam Vital Signs: Vital Signs: Last Vital Signs Temp 97.1 F 03/13/21 11:20 Pulse 66 03/13/21 11:20 Resp 16 03/13/21 11:26 BP 145/71 H 03/13/21 11:20 Pulse Ox 98 03/13/21 11:20 Body Mass Index 32.0 Gen: in no acute distress HEENT: sclera anicteric, moist mucus membranes Neck: supple Lungs: clear to auscultation bilaterally Heart: regular rate and rhythm, no murmurs Abd: soft, non-tender, non-distended Ext: no edema Skin: L heel ulcer with surrounding erythema Neuro: alert and oriented x3, no focal findings Psych: appropriate affect Objective Data Current Medications Generic Name Dose Route Start Last Admin Trade Name Freq PRN Reason Stop Dose Admin Acetaminophen 650 mg 03/13/21 03:53 03/13/21 09:46 Acetaminophen 325 Mg Tablet PO 650 mg Q6H PRN Administration Pain, Mild (Pain Scale 1-3) Docusate Sodium 100 mg 03/13/21 03:53 Docusate Sodium 100 Mg Capsule PO DAILY PRN Constipation Gabapentin 300 mg 03/13/21 09:00 03/13/21 07:48 Gabapentin 300 Mg Capsule PO 300 mg TID [facility] Administration Heparin Sodium (Porcine) 5,000 unit 03/13/21 06:00 03/13/21 07:48 Heparin Sodium,Porcine 5,000 Unit/Ml Vial SUBCUT 5,000 unit Q12H [facility] Administration Piperacillin Sod/Tazobactam 50 mls @ 100 mls/hr 03/13/21 08:00 03/13/21 10:38 Sod 3.375 gm/ Sodium Chloride IV Infused Q6H [facility] Infusion Vancomycin HCl 1,000 mg/ 270 mls @ 270 mls/hr 03/13/21 19:00 Sodium Chloride IV Q12H [facility] Insulin Glargine 22 unit 03/13/21 03:53 03/13/21 06:00 Insulin Glargine,Hum.Rec.Anlog 100 Unit/Ml 10 Ml Vial SUBCUT Not Given BEDTIME [facility] Insulin Human Lispro 0 unit 03/13/21 07:30 03/13/21 11:33 Insulin Lispro 100 Unit/Ml 3 Ml Vial SUBCUT 2 unit QIDACHS [facility] Administration Protocol Metoprolol Succinate 50 mg 03/13/21 09:00 03/13/21 09:48 Metoprolol Succinate Er 50 Mg Tab.Er.24h PO 50 mg DAILY [facility] Administration Protocol Morphine Sulfate 2 mg 03/13/21 11:18 03/13/21 11:26 Morphine Sulfate 2 Mg/Ml Cartridge IVPUSH 2 mg Q2H PRN Administration pain,severe Ondansetron HCl 4 mg 03/13/21 03:53 Ondansetron Hcl 4 Mg/2 Ml Vial IVPUSH Q8H PRN Nausea and Vomiting Oxycodone HCl 5 mg 03/13/21 03:53 03/13/21 07:58 Oxycodone Hcl Immed Release 5 Mg Tablet PO 5 mg Q6H PRN Administration Pain, Severe (Pain Scale 7-10) Pharmacy Consult 1 each 03/13/21 03:53 Consult Rx Vancomycin Dosing MISCELLANE DAILY PRN Consult order Prednisone 60 mg 03/13/21 09:00 03/13/21 09:48 Prednisone 20 Mg Tablet PO 60 mg DAILY [facility] Administration Sodium Chloride 3 ml 03/13/21 08:00 03/13/21 08:47 0.9 % Sodium Chloride Flush 3 Ml Syringe IVFLUSH Not Given QSHIFT [facility] Ticagrelor 90 mg 03/13/21 09:00 03/13/21 09:48 Ticagrelor 90 Mg Tablet PO 90 mg BID [facility] Administration Labs CBC & Chem 7: 03/12/21 23:27 03/12/21 23:27 Labs: Laboratory Results - last 24 hr 03/12/21 03/12/21 03/12/21 22:49 23:27 23:27 WBC 12.3 H RBC 5.35 Hgb 14.8 Hct 45.1 MCV 84.3 MCH 27.7 MCHC 32.8 RDW 14.3 Plt Count 218 MPV 10.7 Immature Gran % (Auto) 0.7 H Neut % (Auto) 58.1 Lymph % (Auto) 28.6 [place] % (Auto) 8.5 Eos % (Auto) 3.6 Baso % (Auto) 0.5 Lymph # (Auto) 3.5 [place] # (Auto) 1.1 Eos # (Auto) 0.4 Baso # (Auto) 0.1 Abs Immat Gran (auto) 0.08 H Absolute Neuts (auto) 7.2 Absolute Nucleated RBC 0.000 Nucleated RBC % (auto) 0.0 ESR Sodium 137 Potassium 4.2 Chloride 104 Carbon Dioxide 22 Anion Gap 15 BUN 27 H D Creatinine 1.09 Estim Creat Clear Calc 89.6 Estimated GFR > 60 POC Glucose 168 H Random Glucose 162 H D Lactic Acid Uric Acid Calcium 9.0 Total Bilirubin 0.3 AST 19 ALT 33 Alkaline Phosphatase 71 C-Reactive Protein Total Protein 7.1 Albumin 3.7 Urine Color Urine Appearance Urine pH Ur Specific [place] Urine Protein Urine Glucose (UA) Urine Ketones Urine Blood Urine Nitrite Ur Leukocyte Esterase Urine RBC Urine WBC Ur Squamous Epith Cells Urine Bacteria COVID-19 ([facility]) COVID-[place] 03/12/21 03/13/21 03/13/21 23:27 01:30 01:51 WBC RBC Hgb Hct MCV MCH MCHC RDW Plt Count MPV Immature Gran % (Auto) Neut % (Auto) Lymph % (Auto) [place] % (Auto) Eos % (Auto) Baso % (Auto) Lymph # (Auto) [place] # (Auto) Eos # (Auto) Baso # (Auto) Abs Immat Gran (auto) Absolute Neuts (auto) Absolute Nucleated RBC Nucleated RBC % (auto) ESR Sodium Potassium Chloride Carbon Dioxide Anion Gap BUN Creatinine Estim Creat Clear Calc Estimated GFR POC Glucose Random Glucose Lactic Acid 1.1 Uric Acid Calcium Total Bilirubin AST ALT Alkaline Phosphatase C-Reactive Protein Total Protein Albumin Urine Color YELLOW Urine Appearance CLEAR Urine pH 5.5 Ur Specific [place] 1.020 Urine Protein NEG Urine Glucose (UA) >=1000 H Urine Ketones NEG Urine Blood NEG Urine Nitrite NEG Ur Leukocyte Esterase NEG Urine RBC 0-2 Urine WBC 0-2 Ur Squamous Epith Cells 1+ Urine Bacteria NONE COVID-19 ([facility]) Negative COVID-19 [place] Com See Note 03/13/21 03/13/21 03/13/21 07:40 07:40 08:33 WBC RBC Hgb Hct MCV MCH MCHC RDW Plt Count MPV Immature Gran % (Auto) Neut % (Auto) Lymph % (Auto) [place] % (Auto) Eos % (Auto) Baso % (Auto) Lymph # (Auto) [place] # (Auto) Eos # (Auto) Baso # (Auto) Abs Immat Gran (auto) Absolute Neuts (auto) Absolute Nucleated RBC Nucleated RBC % (auto) ESR 11 Sodium Potassium Chloride Carbon Dioxide Anion Gap BUN Creatinine Estim Creat Clear Calc Estimated GFR POC Glucose 263 H Random Glucose Lactic Acid Uric Acid 5.3 Calcium Total Bilirubin AST ALT Alkaline Phosphatase C-Reactive Protein 0.78 H Total Protein Albumin Urine Color Urine Appearance Urine pH Ur Specific [place] Urine Protein Urine Glucose (UA) Urine Ketones Urine Blood Urine Nitrite Ur Leukocyte Esterase Urine RBC Urine WBC Ur Squamous Epith Cells Urine Bacteria COVID-19 ([facility]) COVID-19 Clin Com 03/13/21 10:57 WBC RBC Hgb Hct MCV MCH MCHC RDW Plt Count MPV Immature Gran % (Auto) Neut % (Auto) Lymph % (Auto) [place] % (Auto) Eos % (Auto) Baso % (Auto) Lymph # (Auto) [place] # (Auto) Eos # (Auto) Baso # (Auto) Abs Immat Gran (auto) Absolute Neuts (auto) Absolute Nucleated RBC Nucleated RBC % (auto) ESR Sodium Potassium Chloride Carbon Dioxide Anion Gap BUN Creatinine Estim Creat Clear Calc Estimated GFR POC Glucose 187 H Random Glucose Lactic Acid Uric Acid Calcium Total Bilirubin AST ALT Alkaline Phosphatase C-Reactive Protein Total Protein Albumin Urine Color Urine Appearance Urine pH Ur Specific [place] Urine Protein Urine Glucose (UA) Urine Ketones Urine Blood Urine Nitrite Ur Leukocyte Esterase Urine RBC Urine WBC Ur Squamous Epith Cells Urine Bacteria COVID-19 ([facility]) COVID-19 Clin Com Quality Stroke Does the patient have a stroke diagnosis?: No VTE Prior VTE?: No VTE Risk Level:: Medical - moderate - high VTE Device Contraindication: Treatment Not Indicated VTE Drug Contraindication: Patient Refused Assessment and Plan (1) Diabetic foot ulcer: Status: Acute (2) Cellulitis of left foot: Status: Acute (3) Leukocytosis: Status: Acute Assessment and Plan: hospital d#1 55yo M with DM2, A1c 8.6 (01/04/21) admitted for infected DM foot ulcer, failed outpt antibiotics [amox/clav prescribed 03/04/21] # DM foot ulcer/cellulits - vanco + pip/brooks d#1 - MRI pending - ID + Wound Care consults - follow BCx - pain control with oxycodone and IV morphine # CAD - continue metoprolol, ticagrelor # HTN - continue metoprolol # DM2 - basal/bolus insulin # DM neuropathy - continue gabapenitn # VTE ppx - UFH
[2021-03-13] MEDS: 0.9 % Sodium Chloride Flush 3 ML SYRINGE IVFLUSH ×2 (16:08→21:31)
[2021-03-13 16:09] LABS: Glucose, Whole Blood 348 mg/dL (60-115)
--- NOTE | 2021-03-13 17:01 | PC.NURSE ---
Pt stating he hasnt sleep well in 3 days - requesting something for sleep at bedtime. Notified MD- verbal order 6mg melatonin bedtime prn - entered in [employer]. Will report off to oncoming RN
[2021-03-13] MEDS: vancomycin HCL 1,000 MG in 0.9 % Sodium Chloride 250 ML 270 MG IV (18:21)
[2021-03-13 20:35] LABS: Glucose, Whole Blood 335 mg/dL (60-115)
[2021-03-13] MEDS: Insulin Glargine,Hum.rec.anlog 100 UNIT/ML 10 ML VIAL 22 UNIT SUBCUT (21:30)
[2021-03-13] MEDS: Melatonin 3 MG TABLET 6 MG PO (21:33)
--- NOTE | 2021-03-13 21:45 | W.PM.IDCN ---
History of Present Illness Data of Consult Service Date: 03/13/21 Requesting physician: Nohelia Aguilar Primary Care Provider: Shanta Haney MD HPI Reason for consult: left diabetic foot infection He presents with left foot discomfort for the last month as well as exudate from calcaneous ulcer which is growing. He has no fever or chills He denies prior foot infections Review of Systems Review of Systems: Yes all other systems are reviewed and are negative PMFSH Past Medical History Medical History Alcohol abuse Arthritis CAD (coronary artery disease) Chronic pancreatitis Diabetes mellitus with hyperglycemia, with long-term current use of insulin Essential hypertension Failure of outpatient treatment Hyperlipidemia Increased BMI Kidney calculus Type 2 diabetes mellitus with diabetic polyneuropathy Type 2 diabetes mellitus with hyperglycemia Family History Family History Mother MS (myocardial infarction), Onset Age: 64 Diabetes mellitus HTN (hypertension) Maternal Grandmother Diabetes mellitus Family history: reviewed and not pertinent Surgical History Surgical History Hx of heart artery stent Hx of lithotripsy Status post laparoscopic cholecystectomy Social History Social History Household Members: Family Household Members Other:: and daughter Housing: House Do you presently have visiting nurse or other home services: No Alcohol intake: current Alcohol intake frequency: holidays/special occasions only Patient Tobacco Use Status: Former Tobacco user Cigarettes Per Day: 7 Years Smoked: 28 Smoked in Last 30 Days: No Second Hand Smoke Exposure: Yes Use of substances other than those prescribed or required for medical reasons: No Substance Use Type: Marijuana Currently Displaying Signs/Symptoms of Drug Intoxication Withdrawal: No Have you been hit, kicked, punched, or otherwise hurt by someone within the past year? If so, by whom?: No Do you feel safe in your current relationship?: No Is there a partner from a previous relationship who is making you feel unsafe now?: No Are you made to feel afraid or neglected: No Advance Directives: No Advance Directives Information Provided: No Do you have thoughts of harming others: None Do you have a plan to hurt others: No Plan Recently lost weight without trying: Unsure Nutrition Risks: No Nutritional Risk service: No Current occupational status: employed Meds Allergies Allergy/AdvReac Type Severity Reaction Status Date / Time No Known Allergies Allergy Verified 03/12/21 21:52 [No Known Allergies*] Active Medications: Current Medications Generic Name Dose Route Start Last Admin Trade Name Ochoaq PRN Reason Stop Dose Admin Acetaminophen 650 mg 03/13/21 03:53 03/13/21 09:46 Acetaminophen 325 Mg Tablet PO 650 mg Q6H PRN Administration Pain, Mild (Pain Scale 1-3) Docusate Sodium 100 mg 03/13/21 03:53 Docusate Sodium 100 Mg Capsule PO DAILY PRN Constipation Gabapentin 300 mg 03/13/21 09:00 03/13/21 21:31 Gabapentin 300 Mg Capsule PO 300 mg TID SHELLY Administration Heparin Sodium (Porcine) 5,000 unit 03/13/21 06:00 03/13/21 18:21 Heparin Sodium,Porcine 5,000 Unit/Ml Vial SUBCUT 5,000 unit Q12H SHELLY Administration Piperacillin Sod/Tazobactam 50 mls @ 100 mls/hr 03/13/21 08:00 03/13/21 21:30 Sod 3.375 gm/ Sodium Chloride IV 100 mls/hr Q6H SHELLY Administration Vancomycin HCl 1,000 mg/ 270 mls @ 270 mls/hr 03/13/21 19:00 03/13/21 19:39 Sodium Chloride IV Infused Q12H SHELLY Infusion Insulin Glargine 22 unit 03/13/21 03:53 03/13/21 21:30 Insulin Glargine,Hum.Rec.Anlog 100 Unit/Ml 10 Ml Vial SUBCUT 22 unit BEDTIME SHELLY Administration Insulin Human Lispro 0 unit 03/13/21 07:30 03/13/21 21:30 Insulin Lispro 100 Unit/Ml 3 Ml Vial SUBCUT 8 unit QIDACHS SHELLY Administration Protocol Melatonin 6 mg 03/13/21 17:00 03/13/21 21:33 Melatonin 3 Mg Tablet PO 6 mg BEDTIME PRN Administration Insomnia Metoprolol Succinate 50 mg 03/13/21 09:00 03/13/21 09:48 Metoprolol Succinate Er 50 Mg Tab.Er.24h PO 50 mg DAILY SHELLY Administration Protocol Morphine Sulfate 2 mg 03/13/21 11:18 03/13/21 19:44 Morphine Sulfate 2 Mg/Ml Cartridge IVPUSH 2 mg Q2H PRN Administration pain,severe Ondansetron HCl 4 mg 03/13/21 03:53 Ondansetron Hcl 4 Mg/2 Ml Vial IVPUSH Q8H PRN Nausea and Vomiting Oxycodone HCl 5 mg 03/13/21 03:53 03/13/21 07:58 Oxycodone Hcl Immed Release 5 Mg Tablet PO 5 mg Q6H PRN Administration Pain, Severe (Pain Scale 7-10) Pharmacy Consult 1 each 03/13/21 03:53 Consult Rx Vancomycin Dosing MISCELLANE DAILY PRN Consult order Sodium Chloride 3 ml 03/13/21 08:00 03/13/21 21:31 0.9 % Sodium Chloride Flush 3 Ml Syringe IVFLUSH 3 ml QSHIFT SHELLY Administration Ticagrelor 90 mg 03/13/21 09:00 03/13/21 21:31 Ticagrelor 90 Mg Tablet PO 90 mg BID SHELLY Administration Home Medications Medication Instructions Recorded Confirmed Last Taken Type amoxicillin-pot clavulanate 1 tab PO BID 03/13/21 03/13/21 Unknown History empagliflozin [Jardiance] 1 tab PO QAM 03/13/21 03/13/21 Unknown History gabapentin 300 mg PO TID 03/13/21 03/13/21 Unknown History insulin glargine [Lantus Solostar 22 unit SUBCUT QPM 03/13/21 03/13/21 Unknown History U-100 Insulin] metoprolol succinate 1 tab PO DAILY 03/13/21 03/13/21 Unknown History prednisone 60 mg PO DAILY 03/13/21 03/13/21 Unknown History ticagrelor [Brilinta] 1 tab PO BID 03/13/21 03/13/21 Unknown History Physical Exam Vital Signs: Vital Signs: Last Vital Signs Temp 98.8 F 03/13/21 19:23 Pulse 72 03/13/21 19:23 Resp 18 03/13/21 19:23 BP 150/80 H 03/13/21 19:23 Pulse Ox 97 03/13/21 19:23 Body Mass Index 32.0 Const: General: cooperative HENMT: Head: Yes normal to inspection Mouth: Normal oral and palatal mucosa present Cardio: Rate: regular rate Rhythm: regular rhythm GI: Inspection: Yes normal to inspection Extrem: Other: 2 cm foot ulcer,serosanguinous crusty drainage Results Labs CBC & Chem 7: 03/12/21 23:27 03/12/21 23:27 Labs: Short CBC 03/12/21 Range/Units 23:27 WBC 12.3 H (4.8-10.8) X10*3/uL Hgb 14.8 (14.0-18.0) g/dl Hct 45.1 (42-52) % Plt Count 218 (160-400) X10*3/uL BMP 03/12/21 23:27 Sodium 137 Potassium 4.2 Chloride 104 Carbon Dioxide 22 BUN 27 H D Creatinine 1.09 Calcium 9.0 Liver Function 03/12/21 Range/Units 23:27 Total Bilirubin 0.3 (0.0-1.0) mg/dL AST 19 (5-37) U/L ALT 33 (0-40) U/L Alkaline Phosphatase 71 (39-117) U/L Albumin 3.7 (3.5-5.0) g/dL Urine 03/13/21 Range/Units 01:30 Urine Color YELLOW Urine Appearance CLEAR Urine pH 5.5 (5.0-8.0) Ur Specific [place] 1.020 (1.005-1.025) Urine Protein NEG (NEG-TRACE) MG/DL Urine Glucose (UA) >=1000 H (NEG) MG/DL Assessment and Plan (1) Leukocytosis: Status: Acute (2) Diabetic foot ulcer: Status: Acute He has possible gram negative and gram positive organisms possible in wound He has possible osteomyelitis Suggest Continue antibiotics Check MRI and evaluate Duration of antibiotics to be determined
[2021-03-14] MEDS: Piperacillin Sodium/Tazobactam 3.375 GM in 0.9 % Sodium Chloride 50 ML IV ×4 (03:13→20:45)
[2021-03-14 05:16] LABS: MANUAL DIFF FLAG NO
[2021-03-14 05:23] LABS: Basophils Absolute Auto 0.1 X10*3/uL (0.0-0.2); Basophils Percent Auto 0.5 % (0-2); Eosinophils Absolute Auto 0.2 X10*3/uL (0.0-0.4); Eosinophils Percent Auto 1.4 % (0-4); Hematocrit 44.8 % (42-52); Hemoglobin 14.4 g/dl (14.0-18.0); Imm Gran Abs Auto 0.11 X10*3/uL (0.00-0.03); Imm Gran Pct Auto 0.9 % (0.0-0.4); Lymphocytes Absolute Auto 2.3 X10*3/uL (1.2-4.9); Lymphocytes Percent Auto 18.4 % (20-40); Mean Corpuscular HGB Conc 32.1 g/dl (31.0-36.0); Mean Corpuscular Hemoglobin 27.2 pg (27.0-33.0); Mean Corpuscular Volume 84.5 fL (80-98); Mean Platelet Volume 11.2 fL (9.4-12.4); Monocytes Absolute Auto 1.2 X10*3/uL (0.1-1.2); Monocytes Percent Auto 9.5 % (2-11); Neutrophils Absolute Auto 8.6 X10*3/uL (2.0-8.3); Neutrophils Percent Auto 69.3 % (45-73); Platelet Count 215 X10*3/uL (160-400); Red Cell Distribution Width 13.8 % (11.0-16.0); White Blood Count 12.5 X10*3/uL (4.8-10.8)
[2021-03-14 05:45] LABS: Anion Gap 13 (12-20); Blood Urea Nitrogen 20 mg/dL (9-16); Calcium 8.9 mg/dL (8.4-10.2); Carbon Dioxide 23 mmol/L (22-29); Chloride 103 mmol/L (96-108); Creatinine Clr Calc Pharmacy 117.7; Estimated Glomerular Filt Rate > 60; Glucose Random 216 mg/dL (60-115); Potassium 4.3 mmol/L (3.3-5.1); Sodium 135 mmol/L (135-145)
[2021-03-14] MEDS: Heparin Sodium,Porcine 5,000 UNIT/ML VIAL 5000 UNIT SUBCUT ×2 (06:13→18:43)
[2021-03-14] MEDS: Morphine Sulfate 2 MG/ML CARTRIDGE IVPUSH ×4 (06:13→20:44)
[2021-03-14 07:26] VITALS: BP 139/88; PULSE 63; RESP 18; TEMP 36.6; O2SAT 96
[2021-03-14 07:27] LABS: Glucose, Whole Blood 203 mg/dL (60-115)
[2021-03-14] MEDS: Insulin Lispro 100 UNIT/ML 3 ML VIAL SUBCUT ×4 (07:40→20:45)
[2021-03-14] MEDS: vancomycin HCL 1,000 MG in 0.9 % Sodium Chloride 250 ML 270 MG IV (08:02)
[2021-03-14 09:14] VITALS: BP 139/88; PULSE 63
[2021-03-14] MEDS: Metoprolol Succinate ER 50 MG TAB.ER.24H PO (09:14)
[2021-03-14] MEDS: Gabapentin 300 MG CAPSULE PO ×3 (09:14→20:45)
[2021-03-14] MEDS: Ticagrelor 90 MG TABLET PO ×2 (09:15→20:45)
[2021-03-14 11:02] VITALS: BP 170/81; PULSE 70; RESP 18; TEMP 36.4; O2SAT 98
--- NOTE | 2021-03-14 11:13 | P.PNIM_ITS ---
Subjective Subjective Date of Service: 03/14/21 Interval History: No fever. Slept better with melatonin. c/o heel pain Physical Exam Vital Signs: Vital Signs: Last Vital Signs Temp 97.6 F 03/14/21 11:02 Pulse 70 03/14/21 11:02 Resp 18 03/14/21 11:02 BP 170/81 H 03/14/21 11:02 Pulse Ox 98 03/14/21 11:02 Body Mass Index 32.0 Gen: in no acute distress HEENT: sclera anicteric, moist mucus membranes Neck: supple Lungs: clear to auscultation bilaterally Heart: regular rate and rhythm, no murmurs Abd: soft, non-tender, non-distended Ext: no edema Skin: L heel ulcer, erythema improved Neuro: alert and oriented x3, no focal findings Psych: appropriate affect Objective Data Current Medications Generic Name Dose Route Start Last Admin Trade Name Freq PRN Reason Stop Dose Admin Acetaminophen 650 mg 03/13/21 03:53 03/13/21 09:46 Acetaminophen 325 Mg Tablet PO 650 mg Q6H PRN Administration Pain, Mild (Pain Scale 1-3) Docusate Sodium 100 mg 03/13/21 03:53 Docusate Sodium 100 Mg Capsule PO DAILY PRN Constipation Gabapentin 300 mg 03/13/21 09:00 03/14/21 09:14 Gabapentin 300 Mg Capsule PO 300 mg TID SHELLY Administration Heparin Sodium (Porcine) 5,000 unit 03/13/21 06:00 03/14/21 06:13 Heparin Sodium,Porcine 5,000 Unit/Ml Vial SUBCUT 5,000 unit Q12H SHELLY Administration Piperacillin Sod/Tazobactam 50 mls @ 100 mls/hr 03/13/21 08:00 03/14/21 10:17 Sod 3.375 gm/ Sodium Chloride IV Infused Q6H SHELLY Infusion Vancomycin HCl 1,000 mg/ 270 mls @ 270 mls/hr 03/13/21 19:00 03/14/21 09:15 Sodium Chloride IV Infused Q12H SHELLY Infusion Insulin Glargine 25 unit 03/14/21 21:00 Insulin Glargine,Hum.Rec.Anlog 100 Unit/Ml 10 Ml Vial SUBCUT BEDTIME SHELLY Insulin Human Lispro 0 unit 03/13/21 07:30 03/14/21 08:02 Insulin Lispro 100 Unit/Ml 3 Ml Vial SUBCUT 4 unit QIDACHS [facility] Administration Protocol Melatonin 6 mg 03/13/21 17:00 03/13/21 21:33 Melatonin 3 Mg Tablet PO 6 mg BEDTIME PRN Administration Insomnia Metoprolol Succinate 50 mg 03/13/21 09:00 03/14/21 09:14 Metoprolol Succinate Er 50 Mg Tab.Er.24h PO 50 mg DAILY SHELLY Administration Protocol Morphine Sulfate 2 mg 03/13/21 11:18 03/14/21 09:14 Morphine Sulfate 2 Mg/Ml Cartridge IVPUSH 2 mg Q2H PRN Administration pain,severe Ondansetron HCl 4 mg 03/13/21 03:53 Ondansetron Hcl 4 Mg/2 Ml Vial IVPUSH Q8H PRN Nausea and Vomiting Oxycodone HCl 5 mg 03/13/21 03:53 03/13/21 07:58 Oxycodone Hcl Immed Release 5 Mg Tablet PO 5 mg Q6H PRN Administration Pain, Severe (Pain Scale 7-10) Pharmacy Consult 1 each 03/13/21 03:53 Consult Rx Vancomycin Dosing MISCELLANE DAILY PRN Consult order Sodium Chloride 3 ml 03/13/21 08:00 03/14/21 08:25 0.9 % Sodium Chloride Flush 3 Ml Syringe IVFLUSH Not Given QSHIFT [facility] Ticagrelor 90 mg 03/13/21 09:00 03/14/21 09:15 Ticagrelor 90 Mg Tablet PO 90 mg BID SHELLY Administration Labs CBC & Chem 7: 03/14/21 04:00 03/14/21 04:00 Labs: Laboratory Results - last 24 hr 03/13/21 03/13/21 03/13/21 10:57 15:58 20:32 WBC RBC Hgb Hct MCV MCH MCHC RDW Plt Count MPV Immature Gran % (Auto) Neut % (Auto) Lymph % (Auto) [place] % (Auto) Eos % (Auto) Baso % (Auto) Lymph # (Auto) [place] # (Auto) Eos # (Auto) Baso # (Auto) Abs Immat Gran (auto) Absolute Neuts (auto) Absolute Nucleated RBC Nucleated RBC % (auto) Sodium Potassium Chloride Carbon Dioxide Anion Gap BUN Creatinine Estim Creat Clear Calc Estimated GFR POC Glucose 187 H 348 H 335 H Random Glucose Calcium 03/14/21 03/14/21 03/14/21 04:00 04:00 07:24 WBC 12.5 H RBC 5.30 Hgb 14.4 Hct 44.8 MCV 84.5 MCH 27.2 MCHC 32.1 RDW 13.8 Plt Count 215 MPV 11.2 Immature Gran % (Auto) 0.9 H Neut % (Auto) 69.3 Lymph % (Auto) 18.4 L [place] % (Auto) 9.5 Eos % (Auto) 1.4 Baso % (Auto) 0.5 Lymph # (Auto) 2.3 [place] # (Auto) 1.2 Eos # (Auto) 0.2 Baso # (Auto) 0.1 Abs Immat Gran (auto) 0.11 H Absolute Neuts (auto) 8.6 H Absolute Nucleated RBC 0.000 Nucleated RBC % (auto) 0.0 Sodium 135 Potassium 4.3 Chloride 103 Carbon Dioxide 23 Anion Gap 13 BUN 20 H Creatinine 0.83 Estim Creat Clear Calc 117.7 Estimated GFR > 60 POC Glucose 203 H Random Glucose 216 H Calcium 8.9 Microbiology Microbiology Results: Microbiology 03/12/21 23:53 Blood Culture - Preliminary Blood - Venous No growth after 24 hours. 03/12/21 23:27 Blood Culture - Preliminary Blood - Venous No growth after 24 hours. Quality Stroke Does the patient have a stroke diagnosis?: No VTE Prior VTE?: No VTE Risk Level:: Medical - moderate - high VTE Device Contraindication: Treatment Not Indicated VTE Drug Contraindication: Patient Refused Assessment and Plan (1) Diabetic foot ulcer: Status: Acute (2) Cellulitis of left foot: Status: Acute (3) Leukocytosis: Status: Acute Assessment and Plan: hospital d#2 55yo M with DM2, A1c 8.6 (01/04/21) admitted for infected DM foot ulcer, failed outpt antibiotics [amox/clav prescribed 03/04/21] # DM foot ulcer/cellulits - vanco + pip/brooks d#2 - MRI pending - ID consulted, Wound Care consult pending - follow BCx - pain control with oxycodone and IV morphine # CAD - continue metoprolol, ticagrelor # HTN - continue metoprolol # DM2 - basal/bolus insulin- needs better glycemic control- will increase doses # DM neuropathy - continue gabapentin # VTE ppx - UFH
[2021-03-14 11:27] LABS: Glucose, Whole Blood 217 mg/dL (60-115)
--- NOTE | 2021-03-14 15:10 | MHC.CM.PN ---
PT LIVES AT HOME WITH S/O AND DAUGHTER. 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 PT ONLY USES [employer] FOR DME. PCP IS ARYA SANCHES. CURRENT DC PLAN IS HOME WITH NO SERVICES
[2021-03-14 15:19] VITALS: BP 150/72; PULSE 72; RESP 18; TEMP 37.2; O2SAT 97
[2021-03-14 16:14] LABS: Glucose, Whole Blood 188 mg/dL (60-115)
[2021-03-14] MEDS: 0.9 % Sodium Chloride Flush 3 ML SYRINGE IVFLUSH (16:44)
[2021-03-14 18:35] LABS: Vancomycin Trough 5.4 mcg/mL (10.0-20.0)
[2021-03-14 19:28] VITALS: BP 138/70; PULSE 70; RESP 18; TEMP 36.2; O2SAT 98
[2021-03-14 20:12] LABS: Glucose, Whole Blood 214 mg/dL (60-115)
[2021-03-14] MEDS: Insulin Glargine,Hum.rec.anlog 100 UNIT/ML 10 ML VIAL 25 UNIT SUBCUT (20:44)
[2021-03-14] MEDS: vancomycin HCL 1,250 MG in 0.9 % Sodium Chloride 250 ML 166.67 MG IV (20:45)
[2021-03-14] MEDS: Melatonin 3 MG TABLET 6 MG PO (20:47)
[2021-03-14 23:34] VITALS: BP 150/70; PULSE 66; RESP 18; TEMP 36.4; O2SAT 98
[2021-03-15] VITALS (8 sets, daily range): BP systolic 143–175; BP diastolic 67–87; PULSE 61–66; RESP 16–18; TEMP 36–36.8; O2SAT 95–99
[2021-03-15] MEDS: Morphine Sulfate 2 MG/ML CARTRIDGE IVPUSH ×4 (00:56→12:09)
[2021-03-15] MEDS: 0.9 % Sodium Chloride Flush 3 ML SYRINGE IVFLUSH ×2 (00:58→08:07)
[2021-03-15] MEDS: Piperacillin Sodium/Tazobactam 3.375 GM in 0.9 % Sodium Chloride 50 ML IV ×3 (03:22→14:58)
[2021-03-15] MEDS: Heparin Sodium,Porcine 5,000 UNIT/ML VIAL 5000 UNIT SUBCUT (05:01)
[2021-03-15 07:20] LABS: Glucose, Whole Blood 195 mg/dL (60-115)
[2021-03-15] MEDS: Insulin Lispro 100 UNIT/ML 3 ML VIAL SUBCUT ×2 (08:07→13:16)
[2021-03-15] MEDS: Metoprolol Succinate ER 50 MG TAB.ER.24H PO (08:07)
[2021-03-15] MEDS: Gabapentin 300 MG CAPSULE PO ×2 (08:07→14:58)
[2021-03-15] MEDS: Ticagrelor 90 MG TABLET PO (08:08)
[2021-03-15] MEDS: vancomycin HCL 1,250 MG in 0.9 % Sodium Chloride 250 ML 166.67 MG IV (09:31)
[2021-03-15 10:18] LABS: Anion Gap 12 (12-20); Blood Urea Nitrogen 17 mg/dL (9-16); Calcium 8.9 mg/dL (8.4-10.2); Carbon Dioxide 31 mmol/L (22-29); Chloride 100 mmol/L (96-108); Creatinine Clr Calc Pharmacy 113.6; Estimated Glomerular Filt Rate > 60; Glucose Random 221 mg/dL (60-115); Potassium 4.3 mmol/L (3.3-5.1); Sodium 139 mmol/L (135-145)
[2021-03-15] MEDS: LORazepam 2 MG/ML VIAL 0.25 MG IVPUSH (11:01)
[2021-03-15 11:20] LABS: Glucose, Whole Blood 210 mg/dL (60-115)
[2021-03-15 13:13] LABS: Glucose, Whole Blood 179 mg/dL (60-115)
[2021-03-15] MEDS: amLODIPine Besylate 2.5 MG TABLET PO (13:16)
--- NOTE | 2021-03-15 14:54 | P.DS_ITS ---
DS: Providers Provider Date of Service: 03/15/21 Date of admission: 03/13/21 03:02 Date of discharge: 03/15/21 Primary care physician: Shanta Haney MD Admitting clinician: Susan Cast Attending physician on admission: Susan Cast Consults: 03/13/21 03:53 Consult to Infectious Diseases Routine Consulting Provider: Fannie Stoner Reason for consultation: non-healin diabetic wound Has provider been notified: No Attending physician on discharge: Thong Baig Discharging clinician: Stacy Dukes DS: Diagnosis Discharge Diagnosis (1) Cellulitis of left foot: Status: Acute (2) Diabetic foot ulcer: Status: Acute (3) Diabetes mellitus with hyperglycemia, with long-term current use of insulin: Status: Acute (4) Essential hypertension: Status: Acute DS: Medications Discharge Medications Home Medications: Home Medications Medication Instructions Recorded Confirmed amoxicillin-pot clavulanate 1 tab PO BID 03/13/21 03/13/21 empagliflozin [Jardiance] 1 tab PO QAM 03/13/21 03/13/21 gabapentin 300 mg PO TID 03/13/21 03/13/21 insulin glargine [Lantus Solostar 22 unit SUBCUT QPM 03/13/21 03/13/21 U-100 Insulin] metoprolol succinate 1 tab PO DAILY 03/13/21 03/13/21 prednisone 60 mg PO DAILY 03/13/21 03/13/21 ticagrelor [Brilinta] 1 tab PO BID 03/13/21 03/13/21 Previous Rx's Medication Instructions Recorded walker [Ultra-Light Rollator] #1 ea 09/14/20 lancets 28 gauge #100 ea 01/04/21 blood sugar diagnostic #100 ea 01/07/21 blood-glucose meter #1 ea 01/07/21 lancets 28 gauge #100 ea 01/07/21 pen needle, diabetic 32 gauge x #125 01/07/21 DS: Summary Hospital Course Hospital Course: 55-year-old Portuguese-speaking male with a past medical history of hypertension, diabetes, hyperlipidemia, chronic pancreatitis, history of CAD, history of kidney stones, who presents to the hospital with complaints of left heel pain. Patient reports that he has an ulcer in the base of left heel that is nonhealing, patient reports is been going on for 1 month but has worsened in the past 1 week where his pain is 10/10 now and he has difficulty ambulating due to the pain. He is not remember how the wound started. He denies any drainage fro m the wound, denies any fever, has chills, no chest pain, no shortness of breath, no abdominal pain, no nausea or vomiting, no diarrhea constipation, no urinary symptoms and no lower extremity edema besides the heel. Patient also reports that there is a right big toe wound as well but that is not painful, and not draining. Patient reports that he also was treated with antibiotics recently with no improvement. No significant abnormal vitals except for elevated blood pressure in the 150s systolic. Labs are significant for WBC count 12.3, BUN of 27, creatinine of 1.09, UA negative, X-ray of the foot shows no radiographic findings to suggest osteomyelitis. Patient will be admitted for further management Cellulitis secondary to non healing diabetic foot ulcer. Has been ongoing but worse. No drainage, erythema noted, some mild edema. He has been following with the wound clinic. There was concern for osteomyelitis and therefore MRI obtained which was negative for osteomyelitis. He was initially treated with vancomycin and Zosyn. He will be discharged home with Augmentin and doxycycline for a total of 10 day treatment. He should follow up with the Wound Care for possible debridement, to also follow up with a aircraft maintenance technician for proper footwear as patient also has a history of plantar fasciitis which causes him quite a bit of pain. Time Spent with Patient Time attestation: Total time spent providing and/or coordinating discharge services: Discharge coordination time: Greater than 30 minutes Quality: Stroke Does the patient have a stroke diagnosis?: No Physical Exam Vital Signs: Vital Signs: Last Vital Signs Temp 97.6 F 03/15/21 13:11 Pulse 66 03/15/21 13:16 Resp 18 03/15/21 07:19 BP 175/85 H 03/15/21 13:16 Pulse Ox 96 03/15/21 13:11 Body Mass Index 32.0 Appearing in no acute distress head is normocephalic atraumatic eyes pupils are PERRLA sclera is anicteric mouth throat mucous membranes are intact and moist neck is supple no lymphadenopathy, no JVD noted lung sounds are clear to auscultation heart regular rate rhythm, clear S1, S2 positive bowel sounds, abdomen is soft, nontender neuro patient is alert x3, no focal deficits Left heal Right great toe DS: Data Data Completed and Pending Completed studies during hospitalization [Text1]: Procedures Dilation of Right Ureter with Intraluminal Device, Via Natural or Artificial Opening Endoscopic (06/21/20) Extirpation of Matter from Right Ureter, Via Natural or Artificial Opening Endoscopic (06/21/20) Fluoroscopy of Right Kidney, Ureter and Bladder (06/21/20) Labs on day of discharge: Laboratory Results - last 24 hr 03/14/21 03/14/21 03/14/21 16:04 17:56 20:02 Sodium Potassium Chloride Carbon Dioxide Anion Gap BUN Creatinine Estim Creat Clear Calc Estimated GFR POC Glucose 188 H 214 H Random Glucose Calcium Vancomycin Trough 5.4 L 03/15/21 03/15/21 03/15/21 07:16 09:16 11:11 Sodium 139 Potassium 4.3 Chloride 100 Carbon Dioxide 31 H Anion Gap 12 BUN 17 H Creatinine 0.86 Estim Creat Clear Calc 113.6 Estimated GFR > 60 POC Glucose 195 H 210 H Random Glucose 221 H Calcium 8.9 Vancomycin Trough 03/15/21 13:07 Sodium Potassium Chloride Carbon Dioxide Anion Gap BUN Creatinine Estim Creat Clear Calc Estimated GFR POC Glucose 179 H Random Glucose Calcium Vancomycin Trough Preliminary micro results at discharge 03/12/21 23:53 Blood Culture - Preliminary Blood - Venous No growth after 48 hours. 03/12/21 23:27 Blood Culture - Preliminary Blood - Venous No growth after 48 hours. Discharge Plan Discharge Anticipated Discharge Date/Time: 03/15/21 15:34 Patient Disposition: Home, Self-Care Discharge Diagnosis: Diabetic ulcer Cellulitis Referrals: Shanta Haney MD [Primary Care Provider] - 1 Week [facility] Wound Care Management [Provider Group] - 1 Week Discharge Medications: New amlodipine 2.5 mg Tablet 2.5 mg PO DAILY Qty: 30 RF: 0 oxycodone 5 mg Tablet 5 mg PO Q6H PRN (Reason: Pain, Severe (Pain Scale 7-10)) Qty: 12 RF: 0 doxycycline hyclate 100 mg tablet 100 mg PO BID Qty: 16 RF: 0 amoxicillin-pot clavulanate [Augmentin] 875-125 mg tablet 1 tab PO BID Qty: 16 RF: 0 Continued (DME) Ultra-Light Rollator Misc See Rx Instructions .ROUTE .MEDSUPPLY Qty: 1 RF: 0 metoprolol succinate 50 mg tablet extended release 24 hr 1 tab PO DAILY RF: 0 prednisone 20 mg tablet 60 mg PO DAILY RF: 0 Lantus Solostar U-100 Insulin 100 unit/mL (3 mL) insulin pen 22 unit subcut QPM RF: 0 Brilinta 90 mg tablet 1 tab PO BID RF: 0 Jardiance 25 mg tablet 1 tab PO QAM RF: 0 gabapentin 300 mg Tablet 300 mg PO TID RF: 0 (DME) lancets [FreeStyle Lancets] 28 gauge misc See Rx Instructions .ROUTE .MEDSUPPLY Qty: 100 RF: 1 (DME) blood-glucose meter [FreeStyle Lite Meter] Kit See Rx Instructions .ROUTE .MEDSUPPLY Qty: 1 RF: 0 (DME) FreeStyle Lite Strips Strip See Rx Instructions .ROUTE .MEDSUPPLY Qty: 100 RF: 11 (DME) lancets [FreeStyle Lancets] 28 gauge misc See Rx Instructions .ROUTE .MEDSUPPLY Qty: 100 RF: 11 (DME) pen needle, diabetic [BD Ultra-Fine Michelle Pen Needle] 32 gauge x 5/32 needle See Rx Instructions .ROUTE .MEDSUPPLY Qty: 125 RF: 6 Discontinued amoxicillin-pot clavulanate 875-125 mg tablet 1 tab PO BID RF: 0 Discharge Orders: Discharge Order (Routine); Ordered 03/15/21 Ordered By: Stacy Dukes Diet: advance to usual diet Activity on Discharge: As tolerated Stand Alone Forms: Patient Portal Discharge page Care Plan Goals: resolution of cellulitic symptoms Health Concerns: diabetic wound ulcer, cellulitis Plan of Treatment: Complete course of Augmentin doxycycline for cellulitis Follow up with the Wound Care Clinic Follow up with the primary care provider regarding titration of your blood pressure medication Assessment: see discharge summary
--- NOTE | 2021-03-15 15:06 | MHC.CM.PN ---
per rounds today pt could be dcd today dc plan trmains home no servceis
[2021-03-15 16:11] LABS: Glucose, Whole Blood 279 mg/dL (60-115)
== END 2021-03-15 17:00 | disposition home or self-care (01) | DRG 383 ==
LOC: HO.ED 23:40 → HO.EDOVER 03-13 03:26 → HO.IMC 03-13 08:03
PROVIDERS: Family Medicine; Admitting Provider Internal Medicine; Emergency Provider Student in an Organized Health Care Education/Training Program; PCP Internal Medicine; Visit Provider Family Medicine
DX: L03.116 Cellulitis of left lower limb (principal); E11.42 Type 2 diabetes mellitus with diabetic polyneuropathy; E11.621 Type 2 diabetes mellitus with foot ulcer; L97.519 Non-pressure chronic ulcer of other part of right foot with unspecified severity; L97.429 Non-pressure chronic ulcer of left heel and midfoot with unspecified severity; I10 Essential (primary) hypertension; D72.829 Elevated white blood cell count, unspecified; E11.65 Type 2 diabetes mellitus with hyperglycemia; I25.10 Atherosclerotic heart disease of native coronary artery without angina pectoris; Z87.442 Personal history of urinary calculi; Z20.822 Contact with and (suspected) exposure to COVID-19; Z79.891 Long term (current) use of opiate analgesic; Z79.4 Long term (current) use of insulin; Z79.899 Other long term (current) drug therapy
CPT/HCPCS: 36415; 73620; 73720; 80048; 80053; 80202; 81001; 81003; 82947; 83605; 84550; 85025; 85652; 86140; 87040; 87635; 99219; 99285; A9585; J2060; J2270; J2543; J3370

== ENCOUNTER 2021-03-23 23:07 | Inpatient (IN) | payer MEDICAID, SELFPAY ==
--- NOTE | ~2021-03-23 | US_ITS ---
EXAMINATION: US ARTERIAL DUPLEX LOWER EXTREMITY BILATERAL CLINICAL INFORMATION: 55-year-old male with nonhealing ulcer. COMPARISON: CT lower leg, 09/10/2020. TECHNIQUE: Duplex Doppler imaging and spectral waveform analysis of major arteries of lower extremities performed using a linear 9 MHz transducer. FINDINGS: Color Doppler images show presence of flow within the femoral, popliteal, peroneal and posterior tibial arteries of each lower extremity. Velocity measurements are reported below. RIGHT LOWER EXTREMITY (peak velocities reported in cm/sec) [employer], triphasic waveform, 64 SFA proximal, triphasic, 63-89 Profunda femoris, triphasic, 70 SFA mid, biphasic, 94 SFA distal, monophasic, 194-245 Popliteal, triphasic, 68 Posterior tibial, monophasic, tardus parvus flow, 16 LEFT LOWER EXTREMITY (peak velocities reported in cm/sec) [employer]PER[employer]OR, triphasic, 132 SFA proximal, triphasic and biphasic, 82-119 Profunda femoris, biphasic, 75 SFA mid, monophasic, 85 SFA distal, monophasic, 140-187 Popliteal, triphasic, 91 Posterior tibial, monophasic, 51 US/US arterial duplex LE BI IMPRESSION: * There are Doppler imaging findings of hemodynamically significant stenosis in the distal right SFA. Also, there is manifestation of hemodynamically significant stenosis below level of the knee (given finding of abnormally low, monophasic, tardus parvus flow in the visualized posterior tibial artery). * On the left, there is evidence of hemodynamically significant stenosis involving the SFA, distally. Also, the finding of monophasic flow in the left posterior tibial artery indicates hemodynamically significant disease. No vessel occlusions are demonstrated on this Doppler exam. If clinically necessary, CT angiography of lower extremities could be performed for a more thorough anatomic assessment of the peripheral vessels.
--- NOTE | ~2021-03-23 | NM_ITS ---
EXAMINATION: NUCLEAR MEDICINE 3 PHASE BONE SCAN. CLINICAL INFORMATION: Rule out osteomyelitis left heel. COMPARISON: MRI left foot 03/15/2021. TECHNIQUE: Following intravenous administration of 35 mCi of 90 9M technetium MDP, three-phase bone scan of both feet were obtained. In addition a third phase whole body study was performed. FINDINGS: On first phase of bone scan there is slight increase perfusion seen to the left distal foot. On the second phase of bone scan there is increased blood pool activity in left ankle. On third phase of bone scan there is no abnormal activity seen no abnormal activity seen in the left foot on the heel area to suspect any osteomyelitis. There is mild increased activity seen in the ankle joint likely related to degenerative arthritis. Mild activity seen in the right ankle joint likely related to degenerative arthritis. On whole body imaging there is mild increased activities in the right sternoclavicular joint, right shoulder joint, bilateral knee joint suggestive of degenerative arthritis. Normal activity seen in both kidneys. NM/NM bone 3 phase IMPRESSION: No evidence of osteomyelitis in the left foot. Increased activity on perfusion and second phase of bone scan more suggestive of cellulitis or edema of the left foot. Mild activity in the right ankle on third phase likely degenerative arthritis. Mild degenerative changes right sternoclavicular joint, right shoulder joint, right knee.
[2021-03-23 23:24] VITALS: BP 162/81; PULSE 88; RESP 16; TEMP 36.4; O2SAT 98; BMI 32.1
[2021-03-24] VITALS (11 sets, daily range): BP systolic 120–168; BP diastolic 59–93; PULSE 77–87; RESP 16–18; TEMP 36.2–36.4; O2SAT 95–99
--- NOTE | 2021-03-24 01:32 | ED.LOWEXIN ---
HPI - Extremity Injury (Lower) General Chief Complaint: Extremity Injury, Lower Stated Complaint: left foot ulcer Time Seen by Provider: 03/24/21 01:32 History of Present Illness HPI Narrative: 55-year-old male presents with significant pain at left heel from chronic nonhealing ulcer that is undergoing a completion of course of antibiotics. Patient was recently discharged, 03/15, without evidence osteomyelitis at that time. Patient states that he has follow-up appointments at the wound clinic as well as with Podiatry, however he is unable to specify when those appointments are. He states that Tylenol and ibuprofen are not controlling his pain and that he has run out of the oxycodone that he was discharged with. He denies any fevers or chills but states his left heel has become much more swollen and red. Related Data Home Medications Medication Instructions Recorded Confirmed empagliflozin 25 mg tablet 1 tab PO QAM 03/13/21 03/24/21 (Jardiance) gabapentin 300 mg tablet 300 mg PO TID 03/13/21 03/24/21 insulin glargine 100 unit/mL (3 22 unit SUBCUT QPM 03/13/21 03/24/21 mL) subcutaneous pen (Lantus Solostar U-100 Insulin) metoprolol succinate 50 mg 1 tab PO DAILY 03/13/21 03/24/21 tablet,extended release 24 hr ticagrelor 90 mg tablet (Brilinta) 1 tab PO BID 03/13/21 03/24/21 atorvastatin 20 mg tablet 1 tab PO BEDTIME 03/24/21 03/24/21 Previous Rx's Medication Instructions Recorded walker (Ultra-Light Rollator) #1 ea 09/14/20 lancets 28 gauge (FreeStyle #100 ea 01/04/21 Lancets) blood sugar diagnostic (FreeStyle #100 ea 01/07/21 Lite Strips) blood-glucose meter (FreeStyle #1 ea 01/07/21 Lite Meter) lancets 28 gauge (FreeStyle #100 ea 01/07/21 Lancets) pen needle, diabetic 32 gauge x #125 ea 01/07/21 (BD Ultra-Fine Michelle Pen Needle) amlodipine 2.5 mg tablet 2.5 mg PO DAILY #30 tab 03/15/21 amoxicillin 875 mg-potassium 1 tab PO BID #16 tab 03/15/21 clavulanate 125 mg tablet (Augmentin) doxycycline hyclate 100 mg tablet 100 mg PO BID #16 tab 03/15/21 oxycodone 5 mg tablet 5 mg PO Q6H PRN #12 tab 03/15/21 Allergies Allergy/AdvReac Type Severity Reaction Status Date / Time No Known Allergies Allergy Verified 03/12/21 21:52 [No Known Allergies*] Review of Systems Review of Systems: Pertinent positives and negatives as stated in HPI 10 point review of systems is otherwise negative. PMFSH Past Medical History Medical History Alcohol abuse Arthritis CAD (coronary artery disease) Chronic pancreatitis Diabetes mellitus with hyperglycemia, with long-term current use of insulin Essential hypertension Failure of outpatient treatment Hyperlipidemia Increased BMI Kidney calculus Type 2 diabetes mellitus with diabetic polyneuropathy Type 2 diabetes mellitus with hyperglycemia Surgical History Hx of heart artery stent Hx of lithotripsy Status post laparoscopic cholecystectomy Family History Family History Mother [place] (myocardial infarction), Onset Age: 64 Diabetes mellitus HTN (hypertension) Maternal Grandmother Diabetes mellitus Social History Social History Household Members: Family Household Members Other:: and daughter Housing: House Do you presently have visiting nurse or other home services: No Alcohol intake: current Alcohol intake frequency: holidays/special occasions only Patient Tobacco Use Status: Former Tobacco user Cigarettes Per Day: 7 Years Smoked: 28 Second Hand Smoke Exposure: Yes Substance Use Type: Marijuana Advance Directives: No Advance Directives Information Provided: No service: No Current occupational status: employed Physical Exam Vital Signs: Vital Signs: Last Vital Signs Temp 97.5 F 03/23/21 23:24 Pulse 81 03/24/21 06:31 Resp 16 03/24/21 06:31 BP 142/78 H 03/24/21 06:31 Pulse Ox 98 03/23/21 23:24 Body Mass Index 32.1 VITAL SIGNS: Reviewed. GENERAL: Well developed, well nourished, in no acute distress. HEAD: Normocephalic/atraumatic EYES: PERRLA, EOMI EARS: Ext canals without abnormality OROPHARYNX: no oral lesions noted, posterior pharynx clear LUNGS: Normal breath sounds. SpO2<98> CARDIOVASCULAR: Regular rate and rhythm without noted murmurs, no JVD or lower extremity edema. ABDOMEN: Soft, non-tender, non-distended with bowel sounds. LEFT LOWER EXTREMITY: There remains a large nonhealing ulcer at the left heel with surrounding erythema and swelling without discharge or foul odor, capillary refill less than 3 seconds. RIGHT GREAT TOE: Nonhealing ulcer to the plantar surface of the right great toe SKIN: Inspection of the skin reveals no rashes, otherwise see above NEUROLOGIC: Alert and oriented x 4. Strength and sensation to light touch were grossly intact x 4. Course Course Course Narrative: 55-year-old male with history and clinical presentation consistent with nonhealing diabetic foot ulcers with the left heel ulcer giving the patient significant pain to the point that despite using the crutches he states he is unable to tolerate any longer. He says his medication regimen is inadequate and he cannot wait until his scheduled appointments. Attempts made to provide patient with pain relief were otherwise unsuccessful and patient is being admitted for intractable pain. Basic lab work was obtained and the case was discussed with the inpatient hospitalist team who is agreeable for admission for intractable pain. Of note, a portion of this documentation is on paper format due to computer downtime. All lab work was reviewed without acute findings. Discharge Plan Discharge Clinical Impression: Non-healing ulcer of foot, Intractable heel pain Patient Disposition: Admitted As Inpatient Prescriptions: No Action (DME) Ultra-Light Rollator Misc See Rx Instructions .ROUTE .MEDSUPPLY Qty: 1 RF: 0 metoprolol succinate 50 mg tablet extended release 24 hr 1 tab PO DAILY RF: 0 Lantus Solostar U-100 Insulin 100 unit/mL (3 mL) insulin pen 22 unit subcut QPM RF: 0 Brilinta 90 mg tablet 1 tab PO BID RF: 0 Jardiance 25 mg tablet 1 tab PO QAM RF: 0 gabapentin 300 mg Tablet 300 mg PO TID RF: 0 amlodipine 2.5 mg Tablet 2.5 mg PO DAILY Qty: 30 RF: 0 oxycodone 5 mg Tablet 5 mg PO Q6H PRN (Reason: Pain, Severe (Pain Scale 7-10)) Qty: 12 RF: 0 doxycycline hyclate 100 mg tablet 100 mg PO BID Qty: 16 RF: 0 amoxicillin-pot clavulanate [Augmentin] 875-125 mg tablet 1 tab PO BID Qty: 16 RF: 0 atorvastatin 20 mg tablet 1 tab PO BEDTIME RF: 0 (DME) lancets [FreeStyle Lancets] 28 gauge misc See Rx Instructions .ROUTE .MEDSUPPLY Qty: 100 RF: 1 (DME) blood-glucose meter [FreeStyle Lite Meter] Kit See Rx Instructions .ROUTE .MEDSUPPLY Qty: 1 RF: 0 (DME) FreeStyle Lite Strips Strip See Rx Instructions .ROUTE .MEDSUPPLY Qty: 100 RF: 11 (DME) lancets [FreeStyle Lancets] 28 gauge misc See Rx Instructions .ROUTE .MEDSUPPLY Qty: 100 RF: 11 (DME) pen needle, diabetic [BD Ultra-Fine Michelle Pen Needle] 32 gauge x 5/32 needle See Rx Instructions .ROUTE .MEDSUPPLY Qty: 125 RF: 6
--- NOTE | 2021-03-24 01:33 | PC.NURSE ---
PT AWAITING FOR 'S EVAL.
--- NOTE | 2021-03-24 02:45 | PC.NURSE ---
FAMILY IS CALLING CONCERNED ABOUT PT. DR. BALDWIN AWARE.
[2021-03-24 07:04] LABS: MANUAL DIFF FLAG NO
[2021-03-24 07:14] LABS: Basophils Absolute Auto 0.1 X10*3/uL (0.0-0.2); Basophils Percent Auto 0.6 % (0-2); Eosinophils Absolute Auto 0.5 X10*3/uL (0.0-0.4); Eosinophils Percent Auto 5.1 % (0-4); Hematocrit 43.3 % (42-52); Hemoglobin 14.1 g/dl (14.0-18.0); Imm Gran Abs Auto 0.07 X10*3/uL (0.00-0.03); Imm Gran Pct Auto 0.7 % (0.0-0.4); Lymphocytes Absolute Auto 2.9 X10*3/uL (1.2-4.9); Lymphocytes Percent Auto 28.8 % (20-40); Mean Corpuscular HGB Conc 32.6 g/dl (31.0-36.0); Mean Corpuscular Hemoglobin 27.4 pg (27.0-33.0); Mean Corpuscular Volume 84.2 fL (80-98); Mean Platelet Volume 10.5 fL (9.4-12.4); Monocytes Absolute Auto 0.9 X10*3/uL (0.1-1.2); Monocytes Percent Auto 8.5 % (2-11); Neutrophils Absolute Auto 5.7 X10*3/uL (2.0-8.3); Neutrophils Percent Auto 56.3 % (45-73); Platelet Count 190 X10*3/uL (160-400); Red Blood Count 5.14 X10*6/uL (4.60-5.80); Red Cell Distribution Width 14.6 % (11.0-16.0); White Blood Count 10.2 X10*3/uL (4.8-10.8)
[2021-03-24 07:38] LABS: COVID-19 Test Negative (Negative)
[2021-03-24 07:42] LABS: Alanine Aminotransferase 27 U/L (0-40); Albumin Level 3.8 g/dL (3.5-5.0); Alkaline Phosphatase 77 U/L (39-117); Anion Gap 12 (12-20); Aspartate Amino Transferase 19 U/L (5-37); Bilirubin Total < 0.2 mg/dL (0.0-1.0); Blood Urea Nitrogen 15 mg/dL (9-16); Calcium 9.1 mg/dL (8.4-10.2); Carbon Dioxide 25 mmol/L (22-29); Chloride 106 mmol/L (96-108); Creatinine Clr Calc Pharmacy 113.7; Estimated Glomerular Filt Rate > 60; Glucose Random 157 mg/dL (60-115); Potassium 3.9 mmol/L (3.3-5.1); Sodium 139 mmol/L (135-145); Total Protein 7.1 g/dL (6.5-8.0)
[2021-03-24 08:06] LABS: Estimated Average Glucose 229 mg/dL; Hemoglobin A1c % 9.6 %
[2021-03-24] MEDS: Acetaminophen 325 MG TABLET 650 MG PO (11:15)
--- NOTE | 2021-03-24 11:29 | PM.IMHP ---
History of Present Illness Date of Service: 03/24/21 Chief Complaint: non-healing, painful L heel ulcer 55yo M patient of Dr Haney with DM2, CAD, and HTN who was just admitted to this hospital 03/13-03/15/21 for non-healing ulcer at the base of his left heel that started 6 weeks ago. No history of trauma to the heel. He was treated with IV vancomycin and piperacillin/tazobactam; MRI was negative for osteomyelitis, and he was discharged home with doxycycline and amoxicillin/clavulanate for a total of 10 days of treatment. He has been taking the antibiotics; however, he complains of severe pain of the heel along with neuropathy. No drainage from the wound, but he notes increasing redness and swelling around the ulcer. He has not yet been seen by the [facility] or by Podiatry. No fever, chills, nausea, vomiting, or stomach upset. He was not septic on presentation to the ED. Admission was requested for concern of non-resolving diabetic foot infection and intractable pain. Review of Systems Review of Systems: all other systems reviewed and negative except as noted in [facility] Medical History Alcohol abuse Arthritis CAD (coronary artery disease) Chronic pancreatitis Diabetes mellitus with hyperglycemia, with long-term current use of insulin Essential hypertension Failure of outpatient treatment Hyperlipidemia Increased BMI Kidney calculus Type 2 diabetes mellitus with diabetic polyneuropathy Type 2 diabetes mellitus with hyperglycemia Family History Mother [place] (myocardial infarction), Onset Age: 64 Diabetes mellitus HTN (hypertension) Maternal Grandmother Diabetes mellitus Surgical History Hx of heart artery stent Hx of lithotripsy Status post laparoscopic cholecystectomy Social History Household Members: Family Household Members Other:: and daughter Housing: House Do you presently have visiting nurse or other home services: No Alcohol intake: current Alcohol intake frequency: holidays/special occasions only Patient Tobacco Use Status: Former Tobacco user Cigarettes Per Day: 7 Years Smoked: 28 Second Hand Smoke Exposure: Yes Substance Use Type: Marijuana Advance Directives: No Advance Directives Information Provided: No service: No Current occupational status: employed Meds Allergies Allergy/AdvReac Type Severity Reaction Status Date / Time No Known Allergies Allergy Verified 03/12/21 21:52 [No Known Allergies*] Active Medications: Current Medications Generic Name Dose Route Start Last Admin Trade Name Freq PRN Reason Stop Dose Admin Acetaminophen 650 mg 03/24/21 11:20 Acetaminophen 325 Mg Tablet PO Q6H PRN Pain, Mild (Pain Scale 1-3) Hydrocodone Bitart/Acetaminophen 1 tab 03/24/21 11:18 Hydrocodone Bit/Acetam 5/325 Tablet PO Q6H PRN pain,moderate Atorvastatin Calcium 20 mg 03/24/21 21:00 Atorvastatin Calcium 20 Mg Tablet PO BEDTIME [facility] Enoxaparin Sodium 40 mg 03/24/21 11:30 Enoxaparin Sodium 40 Mg/0.4 Ml Syringe SUBCUT Q24H [facility] Piperacillin Sod/Tazobactam 50 mls @ 100 mls/hr 03/24/21 12:00 Sod 3.375 gm/ Sodium Chloride IV Q6H [facility] Insulin Glargine 22 unit 03/24/21 11:30 Insulin Glargine,Hum.Rec.Anlog 100 Unit/Ml 10 Ml Vial SUBCUT QPM [facility] Insulin Human Lispro 0 unit 03/24/21 11:30 Insulin Lispro 100 Unit/Ml 3 Ml Vial SUBCUT QIDACHS [facility] Protocol Metoprolol Succinate 50 mg 03/25/21 09:00 Metoprolol Succinate Er 50 Mg Tab.Er.24h PO DAILY [facility] Protocol Morphine Sulfate 2 mg 03/24/21 11:18 Morphine Sulfate 2 Mg/Ml Cartridge IVPUSH Q2H PRN pain,severe Non-Formulary Medication 600 mg 03/24/21 15:00 Gabapentin PO TID [facility] Pharmacy Consult 1 each 03/24/21 11:17 Consult Rx Vancomycin Dosing MISCELLANE DAILY PRN Consult order Sodium Chloride 3 ml 03/24/21 16:00 0.9 % Sodium Chloride Flush 3 Ml Syringe IVFLUSH QSHIFT [facility] Ticagrelor 90 mg 03/24/21 21:00 Ticagrelor 90 Mg Tablet PO BID [facility] Home Medications Medication Instructions Recorded Confirmed Last Taken Type empagliflozin 25 mg tablet 1 tab PO QAM 03/13/21 03/24/21 Unknown History (Jardiance) gabapentin 300 mg tablet 300 mg PO TID 03/13/21 03/24/21 Unknown History insulin glargine 100 unit/mL (3 22 unit SUBCUT QPM 03/13/21 03/24/21 Unknown History mL) subcutaneous pen (Lantus Solostar U-100 Insulin) metoprolol succinate 50 mg 1 tab PO DAILY 03/13/21 03/24/21 Unknown History tablet,extended release 24 hr ticagrelor 90 mg tablet (Brilinta) 1 tab PO BID 03/13/21 03/24/21 Unknown History atorvastatin 20 mg tablet 1 tab PO BEDTIME 03/24/21 03/24/21 Unknown History Physical Exam Vital Signs and Narrative: Vital Signs: Last Vital Signs Temp 97.5 F 03/23/21 23:24 Pulse 77 03/24/21 11:16 Resp 17 03/24/21 11:16 BP 167/73 H 03/24/21 11:16 Pulse Ox 99 03/24/21 11:16 Body Mass Index 32.1 Gen: in no acute distress HEENT: sclera anicteric, moist mucus membranes Neck: supple Lungs: clear to auscultation bilaterally Heart: regular rate and rhythm, no murmurs Abd: soft, obese, non-tender, non-distended Ext: no edema Skin: warm/well-perfused. 3 cm ulcer of the L heel without purulent drainage; approximately 1 cm of circumferential erythema Neuro: alert and oriented x3, no focal findings Psych: appropriate affect Results Labs CBC and Chem 7: 03/24/21 04:44 03/24/21 04:44 Labs: Laboratory Results - last 24 hr 03/24/21 03/24/21 03/24/21 04:44 04:44 04:44 MCV 84.2 MCH 27.4 MCHC 32.6 RDW 14.6 Plt Count 190 MPV 10.5 Immature Gran % (Auto) 0.7 H Neut % (Auto) 56.3 Lymph % (Auto) 28.8 Oliver % (Auto) 8.5 Eos % (Auto) 5.1 H Baso % (Auto) 0.6 Lymph # (Auto) 2.9 Oliver # (Auto) 0.9 Eos # (Auto) 0.5 H Baso # (Auto) 0.1 Abs Immat Gran (auto) 0.07 H Absolute Neuts (auto) 5.7 Absolute Nucleated RBC 0.000 Nucleated RBC % (auto) 0.0 Anion Gap 12 Estim Creat Clear Calc 113.7 Estimated GFR > 60 Random Glucose 157 H Estimat Average Glucose 229 Hemoglobin A1c % 9.6 Calcium 9.1 Total Bilirubin < 0.2 AST 19 ALT 27 Alkaline Phosphatase 77 C-Reactive Protein 1.50 H Total Protein 7.1 Albumin 3.8 COVID-19 ([facility]) COVID-19 Clin Com 03/24/21 07:20 MCV MCH MCHC RDW Plt Count MPV Immature Gran % (Auto) Neut % (Auto) Lymph % (Auto) Oliver % (Auto) Eos % (Auto) Baso % (Auto) Lymph # (Auto) Oliver # (Auto) Eos # (Auto) Baso # (Auto) Abs Immat Gran (auto) Absolute Neuts (auto) Absolute Nucleated RBC Nucleated RBC % (auto) Anion Gap Estim Creat Clear Calc Estimated GFR Random Glucose Estimat Average Glucose Hemoglobin A1c % Calcium Total Bilirubin AST ALT Alkaline Phosphatase C-Reactive Protein Total Protein Albumin COVID-19 ([facility]) Negative COVID-19 Clin Com See Note Assessment and Plan (1) Non-healing ulcer of foot: Status: Acute 55yo M patient with DM2, CAD, and HTN who was just admitted to this hospital 03/13-03/15/21 for cellulitis from non-healing diabetic heel ulcer presenting with persistent pain and worsening redness around the ulcer. # diabetic foot infection # nonhealing ulcer - admit to med/surg - repeat blood cultures - IV vancomycin + piperacillin/tazobactam - NM bone scan to r/o osteomyelitis - arterial Doppler studies - Wound Care + Vascular Surgery consultations # neuropathic pain - increase gabapentin dosage - prn oxycodone + IV morphine # CAD - continue ticagrelor, metoprolol, atorvastatin # HTN - continue metoprolol, # DM2 - A1c 9.6 - basal/bolus insulin # VTE ppx - LMWH Quality Stroke Does the patient have a stroke diagnosis?: No VTE Prior VTE?: No VTE Risk Level:: Medical - moderate - high VTE Device Contraindication: N/A - Device Ordered VTE Drug Contraindication: N/A - Med Ordered
[2021-03-24] MEDS: Piperacillin Sodium/Tazobactam 3.375 GM in 0.9 % Sodium Chloride 50 ML IV ×2 (11:34→19:34)
--- NOTE | 2021-03-24 11:34 | PC.NURSE ---
Peripheral iv started in right ac with an 18 gauge insyte. Site secured and flushed with ns after 1st set of blood cultures drawn
--- NOTE | 2021-03-24 11:40 | PC.NURSE ---
Second set of blood cultures drawn and zosyn infusion started
[2021-03-24] MEDS: vancomycin HCL 1,500 MG in 0.9 % Sodium Chloride 500 ML 333.33 MG IV (12:52)
[2021-03-24] MEDS: Insulin Lispro 100 UNIT/ML 3 ML VIAL SUBCUT ×2 (12:58→20:58)
[2021-03-24] MEDS: Enoxaparin Sodium 40 MG/0.4 ML SYRINGE SUBCUT (13:05)
[2021-03-24 13:09] LABS: Glucose, Whole Blood 188 mg/dL (60-115)
[2021-03-24] MEDS: Gabapentin 600 MG TABLET PO ×2 (15:01→20:57)
[2021-03-24] MEDS: Morphine Sulfate 2 MG/ML CARTRIDGE IVPUSH ×3 (15:02→23:56)
--- NOTE | 2021-03-24 15:11 | PHA.MEDREC ---
Pharmacy Consult ? Medication Reconciliation Pharmacy has completed the medication reconciliation.
--- NOTE | 2021-03-24 15:27 | PC.NURSE ---
wound care nurse at bedside bandaging ulcer on left heel.
--- NOTE | 2021-03-24 15:43 | PC.NURSE ---
Patient seen in ED for diabetic ulcer to left heel with infection. Redness around ulcer and heel/ankle. Wound bed is dark red/black with some blood. Triad was applied to wound,covered with gauze and roll gauze. Patient also has a healed calloused ulcer on right great toe. Consult for surgery ordered. Bone scan has been ordered also.
--- NOTE | 2021-03-24 16:00 | P.CONGS_ITS ---
History of Present Illness Consult details Consult date: 03/24/21 Reason for consult: wound care Requesting physician: Nohelia Aguilar Narrative: 55-year-old male patient with history of diabetes, hyperlipidemia, plantar fasciitis, peripheral neuropathy, and coronary artery disease, presenting with complaints of severe pain in the left foot. He was recently admitted for treatment of a left heel ulcer. He was initially started on IV antibiotics but subsequently switched to oral antibiotics and discharged to home. Arrangements were made for follow-up with wound care center however the patient developed severe pain along the heel and instep of the foot. He feels this is a combination of the heel ulcer, plantar fasciitis, and peripheral neuropathy. He took ibuprofen but is unable to take sufficient amount due to his renal insufficiency. He is admitted to the hospitalist service for further management. He denies any bleeding or discharge from the ulcer, which she feels has improved since his previous admission. He also has an ulcer on the great toe on the right foot which is also dry and healing. Review of Systems Review of Systems: Yes all other systems are reviewed and are negative Cardiovascular: Cardiovascular: Denies chest pain, Denies chest pain with activity, Denies rapid heart rate and Denies irregular heart rhythm Respiratory: Respiratory: Denies chest congestion, Denies cough, Denies hemoptysis and Denies excessive phlegm production Gastrointestinal: Gastrointestinal: Reports no additional gastrointestinal complaints Neurologic: Reports as per [facility] Past Medical History Medical History Alcohol abuse Arthritis CAD (coronary artery disease) Chronic pancreatitis Diabetes mellitus with hyperglycemia, with long-term current use of insulin Essential hypertension Failure of outpatient treatment Hyperlipidemia Increased BMI Kidney calculus Type 2 diabetes mellitus with diabetic polyneuropathy Type 2 diabetes mellitus with hyperglycemia Family History Family History Mother [place] (myocardial infarction), Onset Age: 64 Diabetes mellitus HTN (hypertension) Maternal Grandmother Diabetes mellitus Surgical History Surgical History Hx of heart artery stent Hx of lithotripsy Status post laparoscopic cholecystectomy Social History Social History Household Members: Family Household Members Other:: and daughter Housing: House Do you presently have visiting nurse or other home services: No Alcohol intake: current Alcohol intake frequency: holidays/special occasions only Patient Tobacco Use Status: Former Tobacco user Cigarettes Per Day: 7 Years Smoked: 28 Second Hand Smoke Exposure: Yes Substance Use Type: Marijuana Advance Directives: No Advance Directives Information Provided: No service: No Current occupational status: employed Meds Allergies Allergy/AdvReac Type Severity Reaction Status Date / Time No Known Allergies Allergy Verified 03/12/21 21:52 [No Known Allergies*] Active Medications: Current Medications Generic Name Dose Route Start Last Admin Trade Name Freq PRN Reason Stop Dose Admin Acetaminophen 650 mg 03/24/21 11:20 Acetaminophen 325 Mg Tablet PO Q6H PRN Pain, Mild (Pain Scale 1-3) Hydrocodone Bitart/Acetaminophen 1 tab 03/24/21 11:18 Hydrocodone Bit/Acetam 5/325 Tablet PO Q6H PRN pain,moderate Atorvastatin Calcium 20 mg 03/24/21 21:00 Atorvastatin Calcium 20 Mg Tablet PO BEDTIME SHELLY Enoxaparin Sodium 40 mg 03/24/21 14:00 03/24/21 13:05 Enoxaparin Sodium 40 Mg/0.4 Ml Syringe SUBCUT 40 mg Q24H SHELLY Administration Gabapentin 600 mg 03/24/21 15:00 03/24/21 15:01 Gabapentin 600 Mg Tablet PO 600 mg TID SHELLY Administration Piperacillin Sod/Tazobactam 50 mls @ 100 mls/hr 03/24/21 12:00 03/24/21 12:32 Sod 3.375 gm/ Sodium Chloride IV Infused Q6H SHELLY Infusion Vancomycin HCl 1,250 mg/ 250 mls @ 166.667 mls/hr 03/24/21 23:00 Sodium Chloride IV Q12H [facility] Insulin Glargine 22 unit 03/24/21 21:00 Insulin Glargine,Hum.Rec.Anlog 100 Unit/Ml 10 Ml Vial SUBCUT BEDTIME [facility] Insulin Human Lispro 0 unit 03/24/21 11:30 03/24/21 12:58 Insulin Lispro 100 Unit/Ml 3 Ml Vial SUBCUT 2 unit QIDACHS [facility] Administration Protocol Metoprolol Succinate 50 mg 03/25/21 09:00 Metoprolol Succinate Er 50 Mg Tab.Er.24h PO DAILY [facility] Protocol Morphine Sulfate 2 mg 03/24/21 11:18 03/24/21 15:02 Morphine Sulfate 2 Mg/Ml Cartridge IVPUSH 2 mg Q2H PRN Administration pain,severe Pharmacy Consult 1 each 03/24/21 11:17 Consult Rx Vancomycin Dosing MISCELLANE DAILY PRN Consult order Sodium Chloride 3 ml 03/24/21 16:00 0.9 % Sodium Chloride Flush 3 Ml Syringe IVFLUSH QSHIFT [facility] Ticagrelor 90 mg 03/24/21 21:00 Ticagrelor 90 Mg Tablet PO BID [facility] Home Medications Medication Instructions Recorded Confirmed Last Taken Type empagliflozin 25 mg tablet 1 tab PO QAM 03/13/21 03/24/21 03/23/21 History (Jardiance) insulin glargine 100 unit/mL (3 22 unit SUBCUT QPM 03/13/21 03/24/21 03/23/21 History mL) subcutaneous pen (Lantus Solostar U-100 Insulin) metoprolol succinate 50 mg 1 tab PO DAILY 03/13/21 03/24/21 03/23/21 History tablet,extended release 24 hr ticagrelor 90 mg tablet (Brilinta) 1 tab PO BID 03/13/21 03/24/21 03/23/21 History aspirin 81 mg chewable tablet 81 mg PO DAILY 03/24/21 03/24/21 03/23/21 History atorvastatin 20 mg tablet 1 tab PO BEDTIME 03/24/21 03/24/21 03/23/21 History gabapentin 300 mg capsule 1 cap PO TID 03/24/21 03/24/21 03/23/21 History insulin lispro 100 unit/mL 17 unit SUBCUT BIDAC 03/24/21 03/24/21 03/23/21 History subcutaneous pen (Humalog KwikPen (U-100) Insulin) metformin 500 mg tablet 500 mg PO BID 03/24/21 03/24/21 03/23/21 History Physical Exam Vital Signs: Vital Signs: Last Vital Signs Temp 97.5 F 03/23/21 23:24 Pulse 78 03/24/21 15:00 Resp 17 03/24/21 15:02 BP 151/69 H 03/24/21 15:00 Pulse Ox 99 03/24/21 15:00 Body Mass Index 32.1 Const: Other: Well-nourished, well-developed, no acute distress, alert and oriented x3 HENMT: Other: Normocephalic, atraumatic, hearing intact Resp: Other: Breathing comfortably on room air, no respiratory distress Cardio: Other: Regular rate and rhythm Skin: Other: Warm, dry, no rash Extrem: Other: Left foot with the dry heel ulceration with surrounding callus formation with no surrounding erythema or discharge. Tenderness is elicited to palpation of the instead and plantar surface adjacent to the ulceration. No evidence of abscess/fluctuance. No new necrotic skin Results Labs Result diagrams: 03/24/21 04:44 03/24/21 04:44 Labs: Abnormal lab results 03/24/21 03/24/21 03/24/21 Range/Units 04:44 04:44 12:46 Immature Gran % (Auto) 0.7 H (0.0-0.4) % Eos % (Auto) 5.1 H (0-4) % Eos # (Auto) 0.5 H (0.0-0.4) X10*3/uL Abs Immat Gran (auto) 0.07 H (0.00-0.03) X10*3/uL POC Glucose 188 H (60-115) mg/dL Random Glucose 157 H (60-115) mg/dL C-Reactive Protein 1.50 H (< or = 0.50) mg/dL Short CBC 03/24/21 Range/Units 04:44 WBC 10.2 (4.8-10.8) X10*3/uL Hgb 14.1 (14.0-18.0) g/dl Hct 43.3 (42-52) % Plt Count 190 (160-400) X10*3/uL BMP 03/24/21 04:44 Sodium 139 Potassium 3.9 Chloride 106 Carbon Dioxide 25 BUN 15 Creatinine 0.86 Calcium 9.1 Liver Function 03/24/21 Range/Units 04:44 Total Bilirubin < 0.2 (0.0-1.0) mg/dL AST 19 (5-37) U/L ALT 27 (0-40) U/L Alkaline Phosphatase 77 (39-117) U/L Albumin 3.8 (3.5-5.0) g/dL All other labs normal. Imaging Additional studies: MRI left foot: IMPRESSION: Superficial soft tissue ulceration over the heel region superficial to the calcaneal tuberosity. Minimal signal abnormality compatible with subtle cellulitis of calcaneal fat pad. ? No evidence for osteomyelitis. ? Mild edema in the abductor digiti minimi muscle, similar to prior. The possibility of acute Sebastian's neuropathy is raised. Assessment and Plan (1) Non-healing ulcer of foot: Status: Acute 55-year-old male patient readmitted due to severe pain involving the left heel; pain is probably multifactorial, related to nonhealing wound, plantar fasciitis, and peripheral neuropathy. Patient has a history of vascular disease as well; agree with vascular surgery consultation. Previous MRI from last admission revealed no osteomyelitis or underlying abscess. No immediate de bridement is needed at this time pending workup. Will follow along during this hospitalization. Procedures Date of Service Date of Service: 03/24/21
--- NOTE | 2021-03-24 17:33 | PC.NURSE ---
Patient is lying in bed looking at cellphone in no distress.
[2021-03-24 19:57] LABS: Glucose, Whole Blood 250 mg/dL (60-115)
[2021-03-24 20:51] LABS: Glucose, Whole Blood 215 mg/dL (60-115)
[2021-03-24] MEDS: Atorvastatin Calcium 20 MG TABLET PO (20:57)
[2021-03-24] MEDS: Insulin Glargine,Hum.rec.anlog 100 UNIT/ML 10 ML VIAL 22 UNIT SUBCUT (20:58)
[2021-03-24] MEDS: 0.9 % Sodium Chloride Flush 3 ML SYRINGE IVFLUSH (20:58)
[2021-03-24] MEDS: Ticagrelor 90 MG TABLET PO (22:45)
[2021-03-24] MEDS: vancomycin HCL 1,250 MG in 0.9 % Sodium Chloride 250 ML 166.67 MG IV (22:45)
[2021-03-24] MEDS: Melatonin 3 MG TABLET 9 MG PO (22:58)
[2021-03-25] MEDS: Piperacillin Sodium/Tazobactam 3.375 GM in 0.9 % Sodium Chloride 50 ML IV ×4 (00:45→17:02)
[2021-03-25] MEDS: Morphine Sulfate 2 MG/ML CARTRIDGE IVPUSH ×5 (02:23→13:57)
[2021-03-25 03:57] VITALS: BP 122/67; PULSE 77; RESP 16; TEMP 36.5; O2SAT 98
[2021-03-25 07:20] LABS: Hematocrit 41.5 % (42-52); Hemoglobin 13.1 g/dl (14.0-18.0); Mean Corpuscular HGB Conc 31.6 g/dl (31.0-36.0); Mean Corpuscular Volume 85.4 fL (80-98); Mean Platelet Volume 10.9 fL (9.4-12.4); Platelet Count 183 X10*3/uL (160-400); Red Blood Count 4.86 X10*6/uL (4.60-5.80); Red Cell Distribution Width 14.6 % (11.0-16.0); White Blood Count 9.8 X10*3/uL (4.8-10.8)
[2021-03-25] MEDS: Metoprolol Succinate ER 50 MG TAB.ER.24H PO (07:31)
[2021-03-25] MEDS: Ticagrelor 90 MG TABLET PO ×2 (07:31→20:34)
[2021-03-25] MEDS: Gabapentin 600 MG TABLET PO ×3 (07:31→20:34)
[2021-03-25] MEDS: 0.9 % Sodium Chloride Flush 3 ML SYRINGE IVFLUSH ×3 (07:32→22:54)
--- NOTE | 2021-03-25 07:35 | PHA.PROG ---
Admission Date/Time: March 24, 2021 11:20 Indication: SKIN AND SKIN STRUCTURE Weight in k.615 kg Adjusted body weight in Kg: Assumption body weight in Kg: Obesity Dosing Indication % IBW: Serum Creatinine - Last 168 Hours 03/24/21 04:44 Creatinine 0.86 Estimated CrCl and GFR - Last 168 Hours 03/24/21 04:44 Estim Creat Clear Calc 113.7 Estimated GFR > 60 Vancomycin Loading Dose: 1500 Current Vancomycin Dosing Regimen:1250 Q12HRS Vancomycin Monitoring using AUC goal of 400 - 600 range with trough as surrogate marker: Date and Time for next Vancomycin Level to be drawn:03/25/21 2200 Pharmacist Comments on Vancomycin Plan: Vancomycin dosing will take advantage of [facility] as a clinical decision support tool that uses Bayesian modeling to calculate individual patient's pharmacokinetic parameters and forecast the patient's drug concentration time course with the target goal AUC 24 range of 400 - 600 mg/L/hr.
[2021-03-25 07:41] LABS: Anion Gap 15 (12-20); Blood Urea Nitrogen 15 mg/dL (9-16); Calcium 8.7 mg/dL (8.4-10.2); Carbon Dioxide 24 mmol/L (22-29); Chloride 105 mmol/L (96-108); Estimated Glomerular Filt Rate > 60; Glucose Random 165 mg/dL (60-115); Potassium 3.9 mmol/L (3.3-5.1); Sodium 140 mmol/L (135-145)
[2021-03-25 07:48] VITALS: BP 130/68; PULSE 80; RESP 20; TEMP 36.6; O2SAT 98
[2021-03-25 07:57] LABS: Glucose, Whole Blood 162 mg/dL (60-115)
[2021-03-25] MEDS: Insulin Lispro 100 UNIT/ML 3 ML VIAL SUBCUT ×4 (08:05→20:33)
[2021-03-25 08:11] LABS: Erythrocyte Sedimentation Rate 25 MM/HR (0-15)
--- NOTE | 2021-03-25 09:37 | MHC.CM.PN ---
PATIENT LIVES WITH FAMILY. HE IS INDEPENDENT WITH HIS ADLS. LATELY HAS BEEN RELYING ON CRUTCHES FOR AMBULATION ASSIST. PATIENT AGREES TO ASSIGNING HCP AGENTS, AND NAMES HIS , DEANDRE AND DAUGHTER MELI AGENTS. DOCUMENT COMPLETED AND PLACED ON CHART ORIGINAL COPY FAXED INTO [employer] AND GIVEN TO PATIENT ALONG WITH 2 COPIES FOR FAMILY. CASE MANAGEMENT FOLLOWING. PATIENT STATES THAT HE IS GOING FOR A NUCLEAR SCAN TODAY.
[2021-03-25] MEDS: vancomycin HCL 1,250 MG in 0.9 % Sodium Chloride 250 ML 166.67 MG IV (10:10)
[2021-03-25 11:07] LABS: Glucose, Whole Blood 203 mg/dL (60-115)
[2021-03-25] MEDS: HYDROcodone Bit/Acetam 5/325 TABLET 1 TAB PO (11:19)
--- NOTE | 2021-03-25 13:13 | PM.CNGS ---
History of Present Illness Consult details Consult date: 03/25/21 Reason for consult: wound care Narrative: 55-year-old gentleman presents for vascular evaluation regarding nonhealing left lower extremity ulcer. He has significant pain in that left heel area. He was originally seen by the [facility] wound care center. Due to a change in insurance he was unable to see anybody for about 3 weeks. It progressively got worse. He subsequently presented to the hospital. Now presents to us for vascular evaluation. Of note he has a prior history of smoking which he reports he quit 3 weeks ago. In addition he has a longstanding history of diabetes. Review of Systems Review of Systems: Yes all other systems are reviewed and are negative Constitutional: Constitutional: Reports no additional constitutional complaints ENT: Reports Normal hearing present Cardiovascular: Cardiovascular: Denies chest pain, Denies chest pain at rest, Denies chest pain with activity and Denies pedal edema Respiratory: Respiratory: Denies cough Gastrointestinal: Gastrointestinal: Denies abdominal pain Musculoskeletal: Musculoskeletal: Denies abnormal gait, Denies muscle cramps and Denies radiating pain into limb Integumentary/Breasts: Skin/Breast: Denies skin ulcer and Denies wounds Neurologic: Reports Normal hearing present and Denies abnormal gait Psychiatric: Psychiatric: Reports no additional psychiatric complaints PMFSH Past Medical History Medical History Alcohol abuse Arthritis CAD (coronary artery disease) Chronic pancreatitis Diabetes mellitus with hyperglycemia, with long-term current use of insulin Essential hypertension Failure of outpatient treatment Hyperlipidemia Increased BMI Kidney calculus Type 2 diabetes mellitus with diabetic polyneuropathy Type 2 diabetes mellitus with hyperglycemia Family History Family History Mother [place] (myocardial infarction), Onset Age: 64 Diabetes mellitus HTN (hypertension) Maternal Grandmother Diabetes mellitus Surgical History Surgical History Hx of heart artery stent Hx of lithotripsy Status post laparoscopic cholecystectomy Social History Social History Household Members: Family Household Members Other:: and daughter Housing: House Do you presently have visiting nurse or other home services: No Alcohol intake: current Alcohol intake frequency: holidays/special occasions only Patient Tobacco Use Status: Former Tobacco user Tobacco use type: Cigarette Cigarettes Per Day: 7 Years Smoked: 28 Second Hand Smoke Exposure: Yes Substance Use Type: Marijuana service: No Current occupational status: employed Meds Allergies Allergy/AdvReac Type Severity Reaction Status Date / Time No Known Allergies Allergy Verified 03/12/21 21:52 [No Known Allergies*] Active Medications: Current Medications Generic Name Dose Route Start Last Admin Trade Name Freq PRN Reason Stop Dose Admin Acetaminophen 650 mg 03/24/21 11:20 Acetaminophen 325 Mg Tablet PO Q6H PRN Pain, Mild (Pain Scale 1-3) Hydrocodone Bitart/Acetaminophen 1 tab 03/24/21 11:18 03/25/21 11:19 Hydrocodone Bit/Acetam 5/325 Tablet PO 1 tab Q6H PRN Administration pain,moderate Atorvastatin Calcium 20 mg 03/24/21 21:00 03/24/21 20:57 Atorvastatin Calcium 20 Mg Tablet PO 20 mg BEDTIME SHELLY Administration Enoxaparin Sodium 40 mg 03/24/21 14:00 03/24/21 13:05 Enoxaparin Sodium 40 Mg/0.4 Ml Syringe SUBCUT 40 mg Q24H SHELLY Administration Gabapentin 600 mg 03/24/21 15:00 03/25/21 07:31 Gabapentin 600 Mg Tablet PO 600 mg TID SHELLY Administration Piperacillin Sod/Tazobactam 50 mls @ 100 mls/hr 03/24/21 12:00 03/25/21 12:55 Sod 3.375 gm/ Sodium Chloride IV 100 mls/hr Q6H SHELLY Administration Vancomycin HCl 1,250 mg/ 250 mls @ 166.667 mls/hr 03/24/21 23:00 03/25/21 11:43 Sodium Chloride IV Infused Q12H [facility] Infusion Insulin Glargine 22 unit 03/24/21 21:00 03/24/21 20:58 Insulin Glargine,Hum.Rec.Anlog 100 Unit/Ml 10 Ml Vial SUBCUT 22 unit BEDTIME SHE[facility] Administration Insulin Human Lispro 0 unit 03/24/21 11:30 03/25/21 11:19 Insulin Lispro 100 Unit/Ml 3 Ml Vial SUBCUT 4 unit QIDACHS SHE[facility] Administration Protocol Melatonin 9 mg 03/24/21 22:45 03/24/21 22:58 Melatonin 3 Mg Tablet PO 9 mg BEDTIME SHELLY Administration Metoprolol Succinate 50 mg 03/25/21 09:00 03/25/21 07:31 Metoprolol Succinate Er 50 Mg Tab.Er.24h PO 50 mg DAILY SHELLY Administration Protocol Morphine Sulfate 2 mg 03/24/21 11:18 03/25/21 10:10 Morphine Sulfate 2 Mg/Ml Cartridge IVPUSH 2 mg Q2H PRN Administration pain,severe Pharmacy Consult 1 each 03/24/21 11:17 Consult Rx Vancomycin Dosing MISCELLANE DAILY PRN Consult order Sodium Chloride 3 ml 03/24/21 16:00 03/25/21 07:32 0.9 % Sodium Chloride Flush 3 Ml Syringe IVFLUSH 3 ml QSHIFT SHELLY Administration Ticagrelor 90 mg 03/24/21 21:00 03/25/21 07:31 Ticagrelor 90 Mg Tablet PO 90 mg BID SHELLY Administration Home Medications Medication Instructions Recorded Confirmed Last Taken Type empagliflozin 25 mg tablet 1 tab PO QAM 03/13/21 03/24/21 03/23/21 History (Jardiance) insulin glargine 100 unit/mL (3 22 unit SUBCUT QPM 03/13/21 03/24/21 03/23/21 History mL) subcutaneous pen (Lantus Solostar U-100 Insulin) metoprolol succinate 50 mg 1 tab PO DAILY 03/13/21 03/24/21 03/23/21 History tablet,extended release 24 hr ticagrelor 90 mg tablet (Brilinta) 1 tab PO BID 03/13/21 03/24/21 03/23/21 History aspirin 81 mg chewable tablet 81 mg PO DAILY 03/24/21 03/24/21 03/23/21 History atorvastatin 20 mg tablet 1 tab PO BEDTIME 03/24/21 03/24/21 03/23/21 History gabapentin 300 mg capsule 1 cap PO TID 03/24/21 03/24/21 03/23/21 History insulin lispro 100 unit/mL 17 unit SUBCUT BIDAC 03/24/21 03/24/21 03/23/21 History subcutaneous pen (Humalog KwikPen (U-100) Insulin) metformin 500 mg tablet 500 mg PO BID 03/24/21 03/24/21 03/23/21 History Physical Exam Vital Signs: Vital Signs: Last Vital Signs Temp 97.8 F 03/25/21 07:48 Pulse 80 03/25/21 07:48 Resp 20 03/25/21 07:48 BP 130/68 03/25/21 07:48 Pulse Ox 98 03/25/21 07:48 Body Mass Index 32.1 Const: General: cooperative, healthy appearing and comfortable Orientation/consciousness: oriented to person, oriented to place and oriented to time HENMT: Head: Yes normal to inspection Neck: Neck: Yes normal visual inspection Carotids: no bruits Chest: Chest palpation & inspection: normal inspection of the chest Resp: Effort & Inspection: normal respiratory effort and able to speak in complete sentences Auscultation: clear to auscultation bilaterally, no crackles, no rales, no rhonchi and no wheezes Cardio: Rate: regular rate Rhythm: regular rhythm Heart sounds: S1 normal heart sound present and S2 normal heart sound present Bruits: no carotid bruits Peripheral pulses: dorsalis pedis present (Bilateral DP signals only) GI: Inspection: Yes normal to inspection Skin: Wounds: no wounds Hair: normal Neuro: General: oriented to person, oriented to place and oriented to time Cranial nerves: Yes CN's II-XII intact bilaterally and Yes Normal hearing present Cognition (Neuro): normal cognition Motor exam (neuro): 5/5 motor strength present throughout Extrem: Other: venous exam: No significant superficial varicosities or spider telangiectasias, minimal edema General: No clubbing, No cyanosis and No edema Psych: Appearance: grossly normal Mental Status: mental status grossly normal Speech and movement: Normal speech and movement present Results Labs Result diagrams: 03/25/21 06:37 03/25/21 06:37 Labs: Abnormal lab results 03/24/21 03/24/21 03/25/21 Range/Units 19:48 20:48 06:37 Hgb 13.1 L (14.0-18.0) g/dl Hct 41.5 L (42-52) % ESR (0-15) MM/HR POC Glucose 250 H 215 H (60-115) mg/dL Random Glucose (60-115) mg/dL 03/25/21 03/25/21 03/25/21 Range/Units 06:37 06:37 07:54 Hgb (14.0-18.0) g/dl Hct (42-52) % ESR 25 H (0-15) MM/HR POC Glucose 162 H (60-115) mg/dL Random Glucose 165 H (60-115) mg/dL 03/25/21 Range/Units 11:03 Hgb (14.0-18.0) g/dl Hct (42-52) % ESR (0-15) MM/HR POC Glucose 203 H (60-115) mg/dL Random Glucose (60-115) mg/dL Short CBC 03/25/21 Range/Units 06:37 WBC 9.8 (4.8-10.8) X10*3/uL Hgb 13.1 L (14.0-18.0) g/dl Hct 41.5 L (42-52) % Plt Count 183 (160-400) X10*3/uL BMP 03/25/21 06:37 Sodium 140 Potassium 3.9 Chloride 105 Carbon Dioxide 24 BUN 15 Creatinine 0.85 Calcium 8.7 All other labs normal. Assessment and Plan (1) PAD (peripheral artery disease): Status: Acute In short patient has nonhealing left heel ulcer. I have taken the liberty of ordering noninvasive arterial testing. Due to his longstanding history of diabetes and smoking I suspect that arterial flow may be an issue for this gentleman. We discussed the pathophysiology of arterial disease and risk factor modification. We will follow up after testing. Thank you for allowing us to assist in his care. If there are any questions or concerns please do not hesitate to contact us. Procedures Date of Service Date of Service: 03/25/21
[2021-03-25] MEDS: Enoxaparin Sodium 40 MG/0.4 ML SYRINGE SUBCUT (13:31)
[2021-03-25 15:59] VITALS: BP 165/78; PULSE 93; RESP 12; TEMP 35.8; O2SAT 98
[2021-03-25 16:41] LABS: Glucose, Whole Blood 177 mg/dL (60-115)
--- NOTE | 2021-03-25 17:08 | HO.PM.IMPN ---
Subjective Subjective Date of Service: 03/25/21 Interval History: Patient complaining of left foot pain, no other acute issues overnight no fever no chills. Review of Systems General no headache, no dizziness, no fever chills. CVS no chest pain, no palpitation. Respiratory no cough, no sob. Gastrointestinal no nausea, no vomiting, no abdominal pain Physical Exam Vital Signs: Vital Signs: Last Vital Signs Temp 96.4 F L 03/25/21 15:59 Pulse 93 03/25/21 15:59 Resp 12 03/25/21 15:59 BP 165/78 H 03/25/21 15:59 Pulse Ox 98 03/25/21 15:59 Body Mass Index 32.1 Gen: no acute distress HEENT: sclera anicteric, moist mucus membranes Neck: supple Lungs: clear to auscultation bilaterally Heart: regular rate and rhythm, no murmurs Abd: soft, obese, non-tender, non-distended Left lower extremity, swelling around left heel extending towards left leg and 3 cm ulcer with mild surrounding erythema Neuro: alert and oriented x3, no focal findings Psych: appropriate affect Objective Data Current Medications Generic Name Dose Route Start Last Admin Trade Name Freq PRN Reason Stop Dose Admin Acetaminophen 650 mg 03/24/21 11:20 Acetaminophen 325 Mg Tablet PO Q6H PRN Pain, Mild (Pain Scale 1-3) Hydrocodone Bitart/Acetaminophen 1 tab 03/24/21 11:18 03/25/21 11:19 Hydrocodone Bit/Acetam 5/325 Tablet PO 1 tab Q6H PRN Administration pain,moderate Atorvastatin Calcium 20 mg 03/24/21 21:00 03/24/21 20:57 Atorvastatin Calcium 20 Mg Tablet PO 20 mg BEDTIME SHELLY Administration Enoxaparin Sodium 40 mg 03/24/21 14:00 03/25/21 13:31 Enoxaparin Sodium 40 Mg/0.4 Ml Syringe SUBCUT 40 mg Q24H SHELLY Administration Gabapentin 600 mg 03/24/21 15:00 03/25/21 13:57 Gabapentin 600 Mg Tablet PO 600 mg TID SHELLY Administration Piperacillin Sod/Tazobactam 50 mls @ 100 mls/hr 03/24/21 12:00 03/25/21 17:02 Sod 3.375 gm/ Sodium Chloride IV 100 mls/hr Q6H SHELLY Administration Vancomycin HCl 1,250 mg/ 250 mls @ 166.667 mls/hr 03/24/21 23:00 03/25/21 11:43 Sodium Chloride IV Infused Q12H SHELLY Infusion Insulin Glargine 22 unit 03/24/21 21:00 03/24/21 20:58 Insulin Glargine,Hum.Rec.Anlog 100 Unit/Ml 10 Ml Vial SUBCUT 22 unit BEDTIME SHELLY Administration Insulin Human Lispro 0 unit 03/24/21 11:30 03/25/21 17:02 Insulin Lispro 100 Unit/Ml 3 Ml Vial SUBCUT 2 unit QIDACHS [facility] Administration Protocol Melatonin 9 mg 03/24/21 22:45 03/24/21 22:58 Melatonin 3 Mg Tablet PO 9 mg BEDTIME SHELLY Administration Metoprolol Succinate 50 mg 03/25/21 09:00 03/25/21 07:31 Metoprolol Succinate Er 50 Mg Tab.Er.24h PO 50 mg DAILY [facility] Administration Protocol Morphine Sulfate 2 mg 03/24/21 11:18 03/25/21 13:57 Morphine Sulfate 2 Mg/Ml Cartridge IVPUSH 2 mg Q2H PRN Administration pain,severe Pharmacy Consult 1 each 03/24/21 11:17 Consult Rx Vancomycin Dosing MISCELLANE DAILY PRN Consult order Sodium Chloride 3 ml 03/24/21 16:00 03/25/21 13:58 0.9 % Sodium Chloride Flush 3 Ml Syringe IVFLUSH 3 ml QSHIFT [facility] Administration Ticagrelor 90 mg 03/24/21 21:00 03/25/21 07:31 Ticagrelor 90 Mg Tablet PO 90 mg BID [facility] Administration Labs CBC & Chem 7: 03/25/21 06:37 03/25/21 06:37 Labs: Laboratory Results - last 24 hr 03/24/21 03/24/21 03/25/21 19:48 20:48 06:37 MCV 85.4 MCH 27.0 MCHC 31.6 RDW 14.6 Plt Count 183 MPV 10.9 Absolute Nucleated RBC 0.000 Nucleated RBC % (auto) 0.0 ESR Anion Gap Estim Creat Clear Calc Estimated GFR POC Glucose 250 H 215 H Random Glucose Calcium 03/25/21 03/25/21 03/25/21 06:37 06:37 07:54 MCV MCH MCHC RDW Plt Count MPV Absolute Nucleated RBC Nucleated RBC % (auto) ESR 25 H Anion Gap 15 Estim Creat Clear Calc 115.0 Estimated GFR > 60 POC Glucose 162 H Random Glucose 165 H Calcium 8.7 03/25/21 03/25/21 11:03 16:25 MCV MCH MCHC RDW Plt Count MPV Absolute Nucleated RBC Nucleated RBC % (auto) ESR Anion Gap Estim Creat Clear Calc Estimated GFR POC Glucose 203 H 177 H Random Glucose Calcium Microbiology Microbiology Results: Microbiology 03/24/21 11:52 Blood Culture - Preliminary Blood - Venous No growth after 24 hours. 03/24/21 11:45 Blood Culture - Preliminary Blood - Venous No growth after 24 hours. Assessment and Plan (1) PAD (peripheral artery disease): Status: Acute (2) Non-healing ulcer of foot: Status: Acute (3) Intractable heel pain: Status: Acute Assessment and Plan: 55yo M patient with DM2, CAD, and HTN who was just admitted to this hospital 03/13-03/15/21 for cellulitis from non-healing diabetic heel ulcer presenting with persistent pain and worsening redness around the ulcer. # diabetic foot infection with nonhealing left heel ulcer Persistent pain, and mild erythema, no fevers, no leukocytosis blood cultures x2 negative -bone scan showed no evidence of osteomyelitis, continue IV vancomycin + piperacillin/tazobactam day 2 - arterial Doppler studies as per vascular surgery, patient seen by Dr. Stewart there is no immediate debridement needed at this time. # neuropathic pain - continue gabapentin , prn oxycodone and will DC IV morphine # CAD - continue ticagrelor, metoprolol, atorvastatin # HTN - continue metoprolol, # DM2 - A1c 9.6, continue basal/bolus insulin blood sugars stable # VTE ppx - LMWH Quality Stroke Does the patient have a stroke diagnosis?: No VTE Prior VTE?: No VTE Risk Level:: Medical - moderate - high VTE Device Contraindication: N/A - Device Ordered VTE Drug Contraindication: N/A - Med Ordered
[2021-03-25] MEDS: HYDROcodone Bit/Acetam 5/325 TABLET 2 TAB PO ×2 (17:37→23:21)
[2021-03-25 19:49] VITALS: BP 194/86; PULSE 82; RESP 16; TEMP 35.7; O2SAT 98
[2021-03-25] MEDS: Insulin Glargine,Hum.rec.anlog 100 UNIT/ML 10 ML VIAL 22 UNIT SUBCUT (20:33)
[2021-03-25] MEDS: Melatonin 3 MG TABLET 9 MG PO (20:34)
[2021-03-25] MEDS: Atorvastatin Calcium 20 MG TABLET PO (20:34)
[2021-03-25 20:36] LABS: Glucose, Whole Blood 196 mg/dL (60-115)
[2021-03-25 22:35] LABS: Vancomycin Trough 7.4 mcg/mL (10.0-20.0)
[2021-03-25] MEDS: vancomycin HCL 1,000 MG in 0.9 % Sodium Chloride 250 ML 270 MG IV (22:54)
[2021-03-26] VITALS (7 sets, daily range): BP systolic 116–175; BP diastolic 52–88; PULSE 67–92; RESP 16–20; TEMP 36.2–37.1; O2SAT 95–99
[2021-03-26] MEDS: Piperacillin Sodium/Tazobactam 3.375 GM in 0.9 % Sodium Chloride 50 ML IV ×5 (00:16→23:18)
[2021-03-26] MEDS: HYDROcodone Bit/Acetam 5/325 TABLET 2 TAB PO ×4 (05:14→23:21)
[2021-03-26] MEDS: vancomycin HCL 1,000 MG in 0.9 % Sodium Chloride 250 ML 270 MG IV ×2 (06:35→13:57)
[2021-03-26 07:50] LABS: Glucose, Whole Blood 162 mg/dL (60-115)
[2021-03-26] MEDS: Insulin Lispro 100 UNIT/ML 3 ML VIAL SUBCUT ×3 (08:11→20:30)
[2021-03-26] MEDS: Ticagrelor 90 MG TABLET PO ×2 (08:12→20:30)
[2021-03-26] MEDS: Gabapentin 600 MG TABLET PO ×3 (08:12→20:30)
[2021-03-26] MEDS: Metoprolol Succinate ER 50 MG TAB.ER.24H PO (08:12)
[2021-03-26] MEDS: 0.9 % Sodium Chloride Flush 3 ML SYRINGE IVFLUSH ×4 (09:48→23:18)
[2021-03-26 10:34] LABS: Creatinine Clr Calc Pharmacy 120.7; Estimated Glomerular Filt Rate > 60
--- NOTE | 2021-03-26 11:32 | HO.PM.IMPN ---
Subjective Subjective Date of Service: 03/26/21 Interval History: Being followed for left heel ulcer patient complaining of persistent left heel pain, no fever no chills. Review of Systems General no headache, no dizziness, no fever chills.? CVS no chest pain, no palpitation.? Respiratory no cough, no sob.? Gastrointestinal no nausea, no vomiting, no abdominal pain Physical Exam Vital Signs: Vital Signs: Last Vital Signs Temp 97.8 F 03/26/21 07:43 Pulse 88 03/26/21 07:43 Resp 18 03/26/21 07:43 BP 142/61 H 03/26/21 07:43 Pulse Ox 95 03/26/21 07:43 Body Mass Index 32.1 GEN:? no acute dis tress Neck: supple Lungs: clear to a uscultation bilate rally Heart: regul ar rate and rhythm , no murmurs Abd: soft, obese, non-t maurisio, non-distend ed Left lower extr emity, swelling ar ound left heel imp roved significantl y,3 cm ulcer with mild surrounding e rythema and no cordelia inage Neuro: alert and oriented x3, no focal findings Psych: appropriate affect Objective Data Current Medications Generic Name Dose Route Start Last Admin Trade Name Freq PRN Reason Stop Dose Admin Acetaminophen 650 mg 03/24/21 11:20 Acetaminophen 325 Mg Tablet PO Q6H PRN Pain, Mild (Pain Scale 1-3) Hydrocodone Bitart/Acetaminophen 2 tab 03/25/21 17:17 03/26/21 05:14 Hydrocodone Bit/Acetam 5/325 Tablet PO 2 tab Q6H PRN Administration pain,moderate Atorvastatin Calcium 20 mg 03/24/21 21:00 03/25/21 20:34 Atorvastatin Calcium 20 Mg Tablet PO 20 mg BEDTIME SHELLY Administration Enoxaparin Sodium 40 mg 03/24/21 14:00 03/25/21 13:31 Enoxaparin Sodium 40 Mg/0.4 Ml Syringe SUBCUT 40 mg Q24H SHELLY Administration Gabapentin 600 mg 03/24/21 15:00 03/26/21 08:12 Gabapentin 600 Mg Tablet PO 600 mg TID SHELLY Administration Piperacillin Sod/Tazobactam 50 mls @ 100 mls/hr 03/24/21 12:00 03/26/21 05:53 Sod 3.375 gm/ Sodium Chloride IV Infused Q6H SHELLY Infusion Vancomycin HCl 1,000 mg/ 270 mls @ 270 mls/hr 03/25/21 23:00 03/26/21 09:41 Sodium Chloride IV Infused Q8H SHELLY Infusion Insulin Glargine 22 unit 03/24/21 21:00 03/25/21 20:33 Insulin Glargine,Hum.Rec.Anlog 100 Unit/Ml 10 Ml Vial SUBCUT 22 unit BEDTIME SHELLY Administration Insulin Human Lispro 0 unit 03/24/21 11:30 03/26/21 08:11 Insulin Lispro 100 Unit/Ml 3 Ml Vial SUBCUT 2 unit QIDACHS [facility] Administration Protocol Melatonin 9 mg 03/24/21 22:45 03/25/21 20:34 Melatonin 3 Mg Tablet PO 9 mg BEDTIME SHELLY Administration Metoprolol Succinate 50 mg 03/25/21 09:00 03/26/21 08:12 Metoprolol Succinate Er 50 Mg Tab.Er.24h PO 50 mg DAILY SHELLY Administration Protocol Pharmacy Consult 1 each 03/24/21 11:17 Consult Rx Vancomycin Dosing MISCELLANE DAILY PRN Consult order Sodium Chloride 3 ml 03/24/21 16:00 03/26/21 09:48 0.9 % Sodium Chloride Flush 3 Ml Syringe IVFLUSH 3 ml QSHIFT [facility] Administration Ticagrelor 90 mg 03/24/21 21:00 03/26/21 08:12 Ticagrelor 90 Mg Tablet PO 90 mg BID SHELLY Administration Labs CBC & Chem 7: 03/25/21 06:37 03/26/21 10:07 Labs: Laboratory Results - last 24 hr 03/25/21 03/25/21 03/25/21 16:25 20:26 21:53 Estim Creat Clear Calc Estimated GFR POC Glucose 177 H 196 H Vancomycin Trough 7.4 L 03/26/21 03/26/21 07:42 10:07 Estim Creat Clear Calc 120.7 Estimated GFR > 60 POC Glucose 162 H Vancomycin Trough Microbiology Microbiology Results: Microbiology 03/24/21 11:52 Blood Culture - Preliminary Blood - Venous No growth after 24 hours. 03/24/21 11:45 Blood Culture - Preliminary Blood - Venous No growth after 24 hours. Assessment and Plan (1) PAD (peripheral artery disease): Status: Acute (2) Non-healing ulcer of foot: Status: Acute (3) Intractable heel pain: Status: Acute (4) Diabetic foot ulcer: Status: Acute (5) Cellulitis of left foot: Status: Acute Assessment and Plan: 55yo M patient with DM2, CAD, and HTN who was just admitted to this hospital 03/13-03/15/21 for cellulitis from non-healing diabetic heel ulcer presenting with persistent pain and worsening redness around the ulcer. # diabetic foot infection with nonhealing left heel ulcer with surrounding cellulitis ?? Persistent pain, noted to have decreased swelling and erythema, no fevers, no leukocytosis blood cultures x2 negative bone scan showed no evidence of osteomyelitis, continue? IV vancomycin + piperacillin/tazobactam day 3 arterial Doppler studies scheduled for today, being followed by Dr. Sheppard, patient seen by Dr. Stewart ,he rec. no immediate debridement at this time. # left heel pain multifactorial ,neuropathic pain, likely has peripheral vascular disease Dose of gabapentin increased from 300 t.i.d. to 600 t.i.d.,cont prn oxycodone dosage increased to 10 mg, will follow bilateral duplex arterial study lower extremity. # CAD - continue ticagrelor, metoprolol, atorvastatin # HTN - continue metoprolol, BP stable # DM2 - A1c 9.6, continue basal/bolus insulin blood sugars stable # VTE ppx - LMWH Quality Stroke Does the patient have a stroke diagnosis?: No VTE Prior VTE?: No VTE Risk Level:: Medical - moderate - high VTE Device Contraindication: N/A - Device Ordered VTE Drug Contraindication: N/A - Med Ordered
[2021-03-26 11:44] LABS: Glucose, Whole Blood 222 mg/dL (60-115)
--- NOTE | 2021-03-26 12:28 | PC.NURSE ---
Addendum entered by Jennifer Mercado RN 03/26/21 13:03: Spoke with Dr. Stewart about debridement again, mutually agreed to use Santyl until vascular studies return. Original Note: Patient seen today for left heel diabetic ulcer. No osteomyelitis is present. Surgical saw him and determined no surgical intervention needed at this time. Vascular saw patient an ordered vascular studies, will determine process needed when report is completed. Triad applied to wound bed for enzymatic debridement covered with non woven gauze and roll gauze. Patient has old calloused healed ulcer on right foot. No other skin issues noted.
--- NOTE | 2021-03-26 12:56 | HO.VASCPN ---
Subjective Subjective Date of Service: 03/26/21 Interval history: Patient seen and examined. No significant events overnight. Today he does note significantly more calcaneus pain. He notes that the pain occurs on occasion and is a sharp shooting pain. He does not related to any ambulation or any other causative factors. He is in a fair amount of discomfort. Physical Exam Vital Signs: Vital Signs: Last Vital Signs Temp 98.8 F 03/26/21 12:00 Pulse 92 03/26/21 12:00 Resp 18 03/26/21 12:00 BP 166/81 H 03/26/21 12:00 Pulse Ox 98 03/26/21 12:00 Body Mass Index 32.1 Const: General: cooperative, healthy appearing and no acute distress Orientation/consciousness: oriented to person, oriented to place and oriented to time HENMT: Head: Yes normal to inspection Neck: Carotids: no bruits Chest: Chest palpation & inspection: normal inspection of the chest Resp: Effort & Inspection: normal respiratory effort and able to speak in complete sentences Auscultation: clear to auscultation bilaterally Cardio: Rate: regular rate Heart sounds: S1 normal heart sound present and S2 normal heart sound present GI: Inspection: Yes normal to inspection Skin: General skin exam: no rashes or lesions noted Wounds: wounds noted (Left calcaneus) Neuro: General: oriented to person, oriented to place, oriented to time and CN's II-XI intact bilaterally Extrem: General: Yes normal to inspection, Yes full ROM and Yes no clubbing, cyanosis or edema Psych: Appearance: grossly normal and well kempt Speech and movement: Normal speech and movement present Affect: normal affect Progress Note: A&P Assessment and plan (1) PAD (peripheral artery disease): Status: Acute Assessment and Plan: In short patient has nonhealing ulcer. He has multiple risk factors for peripheral artery disease. We will await results of arterial testing and proceed from there. Thank you for allowing us to assist in his care. If there are any questions or concerns please do not hesitate to contact us. Fall Risk Details Current Medications: Current Medications Generic Name Dose Route Start Last Admin Trade Name Freq PRN Reason Stop Dose Admin Acetaminophen 650 mg 03/24/21 11:20 Acetaminophen 325 Mg Tablet PO Q6H PRN Pain, Mild (Pain Scale 1-3) Hydrocodone Bitart/Acetaminophen 2 tab 03/25/21 17:17 03/26/21 11:48 Hydrocodone Bit/Acetam 5/325 Tablet PO 2 tab Q6H PRN Administration pain,moderate Atorvastatin Calcium 20 mg 03/24/21 21:00 03/25/21 20:34 Atorvastatin Calcium 20 Mg Tablet PO 20 mg BEDTIME SHELLY Administration Enoxaparin Sodium 40 mg 03/24/21 14:00 03/25/21 13:31 Enoxaparin Sodium 40 Mg/0.4 Ml Syringe SUBCUT 40 mg Q24H SHELLY Administration Gabapentin 600 mg 03/24/21 15:00 03/26/21 08:12 Gabapentin 600 Mg Tablet PO 600 mg TID SHELLY Administration Piperacillin Sod/Tazobactam 50 mls @ 100 mls/hr 03/24/21 12:00 03/26/21 12:25 Sod 3.375 gm/ Sodium Chloride IV Infused Q6H SHELLY Infusion Vancomycin HCl 1,000 mg/ 270 mls @ 270 mls/hr 03/25/21 23:00 03/26/21 09:41 Sodium Chloride IV Infused Q8H SHELLY Infusion Insulin Glargine 22 unit 03/24/21 21:00 03/25/21 20:33 Insulin Glargine,Hum.Rec.Anlog 100 Unit/Ml 10 Ml Vial SUBCUT 22 unit BEDTIME SHELLY Administration Insulin Human Lispro 0 unit 03/24/21 11:30 03/26/21 11:49 Insulin Lispro 100 Unit/Ml 3 Ml Vial SUBCUT 4 unit QIDACHS SHELLY Administration Protocol Melatonin 9 mg 03/24/21 22:45 03/25/21 20:34 Melatonin 3 Mg Tablet PO 9 mg BEDTIME SHELLY Administration Metoprolol Succinate 50 mg 03/25/21 09:00 03/26/21 08:12 Metoprolol Succinate Er 50 Mg Tab.Er.24h PO 50 mg DAILY SHELLY Administration Protocol Pharmacy Consult 1 each 03/24/21 11:17 Consult Rx Vancomycin Dosing MISCELLANE DAILY PRN Consult order Sodium Chloride 3 ml 03/24/21 16:00 03/26/21 09:48 0.9 % Sodium Chloride Flush 3 Ml Syringe IVFLUSH 3 ml QSHIFT SHELLY Administration Ticagrelor 90 mg 03/24/21 21:00 03/26/21 08:12 Ticagrelor 90 Mg Tablet PO 90 mg BID SHELLY Administration Time Spent With Patient Time: Total time spent is greater than 50% in coordination of care (as documented) at patient's floor/unit and/or counseling patient: Time with patient: 15 - 24 minutes Procedures Date of Service Date of Service: 03/26/21 Quality Stroke Does the patient have a stroke diagnosis?: No VTE Prior VTE?: No VTE Risk Level:: Medical - moderate - high VTE Device Contraindication: N/A - Device Ordered VTE Drug Contraindication: N/A - Med Ordered
--- NOTE | 2021-03-26 13:12 | MHC.CM.PN ---
PATIENT SCHEDULED FOR U/S TODAY. PLAN WILL BE DECIDED PENDING RESULTS.
[2021-03-26] MEDS: Enoxaparin Sodium 40 MG/0.4 ML SYRINGE SUBCUT (13:43)
[2021-03-26 17:25] LABS: Glucose, Whole Blood 145 mg/dL (60-115)
[2021-03-26 20:18] LABS: Glucose, Whole Blood 221 mg/dL (60-115)
[2021-03-26 20:27] LABS: Glucose, Whole Blood 217 mg/dL (60-115)
[2021-03-26] MEDS: Melatonin 3 MG TABLET 9 MG PO (20:29)
[2021-03-26] MEDS: Insulin Glargine,Hum.rec.anlog 100 UNIT/ML 10 ML VIAL 22 UNIT SUBCUT (20:30)
[2021-03-26] MEDS: Atorvastatin Calcium 20 MG TABLET PO (20:30)
[2021-03-26 22:47] LABS: Vancomycin Trough 8.6 mcg/mL (10.0-20.0)
--- NOTE | 2021-03-26 23:06 | MHC.PIE ---
p; vanco trough 8.6 i; dr toro notified. vanco increaed to 1250mg e; will cont to monitor
[2021-03-26] MEDS: vancomycin HCL 1,250 MG in 0.9 % Sodium Chloride 250 ML 166.67 MG IV (23:57)
[2021-03-27] VITALS (7 sets, daily range): BP systolic 135–176; BP diastolic 62–77; PULSE 63–71; RESP 16–18; TEMP 36.3–36.7; O2SAT 97–99
[2021-03-27] MEDS: Piperacillin Sodium/Tazobactam 3.375 GM in 0.9 % Sodium Chloride 50 ML IV ×4 (06:09→22:58)
[2021-03-27] MEDS: HYDROcodone Bit/Acetam 5/325 TABLET 2 TAB PO ×3 (06:11→21:12)
[2021-03-27 08:00] LABS: Glucose, Whole Blood 147 mg/dL (60-115)
[2021-03-27] MEDS: Metoprolol Succinate ER 50 MG TAB.ER.24H PO (08:03)
[2021-03-27] MEDS: Gabapentin 600 MG TABLET PO ×3 (08:03→20:20)
[2021-03-27] MEDS: Ticagrelor 90 MG TABLET PO ×2 (08:03→20:20)
[2021-03-27] MEDS: 0.9 % Sodium Chloride Flush 3 ML SYRINGE IVFLUSH ×3 (08:04→20:21)
[2021-03-27] MEDS: Collagenase Clostridium Hist. 30 GM TUBE 1 APPL TOPICAL (08:04)
[2021-03-27 11:24] LABS: MRSA Nasal PCR NEGATIVE (Negative); SA Nasal PCR POSITIVE (Negative)
--- NOTE | 2021-03-27 11:44 | P.PNIM_ITS ---
Subjective Subjective Date of Service: 03/27/21 Interval History: Complaining of burning pain left heel mostly at nighttime requesting for more pain medication, no other acute issues no fevers, no chills. Review of Systems General no headache, no dizziness, no fever chills.? CVS no chest pain, no palpitation.? Respiratory no cough, no sob.? Gastrointestinal no nausea, no vomiting, no abdominal pain, no diarrhea Physical Exam Vital Signs: Vital Signs: Last Vital Signs Temp 97.3 F 03/27/21 11:22 Pulse 64 03/27/21 11:22 Resp 16 03/27/21 11:22 BP 157/75 H 03/27/21 11:22 Pulse Ox 99 03/27/21 11:22 Body Mass Index 32.1 Gen:? no acute distress HEENT: sclera anicteric, moist mucus membranes Neck: supple Lungs: clear to auscultation bilaterally Heart: regular rate and rhythm, no murmurs Abd: soft, obese, non-tender, non-distended Left lower extremity, significant improvement in swelling and erythema around left heel , 3 cm ulcer with no drainage Neuro: alert and oriented x3, no focal findings, decreased sensation both feet Psych: appropriate affect Objective Data Current Medications Generic Name Dose Route Start Last Admin Trade Name Freq PRN Reason Stop Dose Admin Acetaminophen 650 mg 03/24/21 11:20 Acetaminophen 325 Mg Tablet PO Q6H PRN Pain, Mild (Pain Scale 1-3) Hydrocodone Bitart/Acetaminophen 2 tab 03/25/21 17:17 03/27/21 06:11 Hydrocodone Bit/Acetam 5/325 Tablet PO 2 tab Q6H PRN Administration pain,moderate Atorvastatin Calcium 20 mg 03/24/21 21:00 03/26/21 20:30 Atorvastatin Calcium 20 Mg Tablet PO 20 mg BEDTIME SHELLY Administration Collagenase 1 appl 03/26/21 13:15 03/27/21 08:04 Collagenase Clostridium Hist. 30 Gm Tube TOPICAL 1 appl DAILY SHELLY Administration Protocol Doxycycline Hyclate 100 mg 03/27/21 07:45 03/27/21 08:03 Doxycycline Hyclate 100 Mg Tablet PO 100 mg Q12H SHELLY Administration Enoxaparin Sodium 40 mg 03/24/21 14:00 03/26/21 13:43 Enoxaparin Sodium 40 Mg/0.4 Ml Syringe SUBCUT 40 mg Q24H SHELLY Administration Gabapentin 600 mg 03/24/21 15:00 03/27/21 08:03 Gabapentin 600 Mg Tablet PO 600 mg TID SHELLY Administration Piperacillin Sod/Tazobactam 50 mls @ 100 mls/hr 03/24/21 12:00 03/27/21 07:07 Sod 3.375 gm/ Sodium Chloride IV Infused Q6H SHELLY Infusion Insulin Glargine 22 unit 03/24/21 21:00 03/26/21 20:30 Insulin Glargine,Hum.Rec.Anlog 100 Unit/Ml 10 Ml Vial SUBCUT 22 unit BEDTIME SHELLY Administration Insulin Human Lispro 0 unit 03/24/21 11:30 03/27/21 08:01 Insulin Lispro 100 Unit/Ml 3 Ml Vial SUBCUT Not Given QIDACHS [facility] Protocol Melatonin 9 mg 03/24/21 22:45 03/26/21 20:29 Melatonin 3 Mg Tablet PO 9 mg BEDTIME SHELLY Administration Metoprolol Succinate 50 mg 03/25/21 09:00 03/27/21 08:03 Metoprolol Succinate Er 50 Mg Tab.Er.24h PO 50 mg DAILY SHELLY Administration Protocol Pharmacy Consult 1 each 03/24/21 11:17 Consult Rx Vancomycin Dosing MISCELLANE DAILY PRN Consult order Sodium Chloride 3 ml 03/24/21 16:00 03/27/21 08:04 0.9 % Sodium Chloride Flush 3 Ml Syringe IVFLUSH 3 ml QSHIFT [facility] Administration Ticagrelor 90 mg 03/24/21 21:00 03/27/21 08:03 Ticagrelor 90 Mg Tablet PO 90 mg BID SHELLY Administration Labs CBC & Chem 7: 03/25/21 06:37 03/26/21 10:07 Labs: Laboratory Results - last 24 hr 03/26/21 03/26/21 03/26/21 11:21 17:21 20:11 POC Glucose 222 H 145 H 221 H Nasal Screen MRSA (PCR) Nasal S. aureus Screen Nasal MRSA/S.aureus Interp Vancomycin Trough 03/26/21 03/26/21 03/27/21 20:24 21:57 07:46 POC Glucose 217 H 147 H Nasal Screen MRSA (PCR) Nasal S. aureus Screen Nasal MRSA/S.aureus Interp Vancomycin Trough 8.6 L 03/27/21 09:55 POC Glucose Nasal Screen MRSA (PCR) NEGATIVE Nasal S. aureus Screen POSITIVE A Nasal MRSA/S.aureus Interp SEE NOTE Vancomycin Trough Microbiology Microbiology Results: Microbiology 03/24/21 11:52 Blood Culture - Preliminary Blood - Venous No growth after 48 hours. 03/24/21 11:45 Blood Culture - Preliminary Blood - Venous No growth after 48 hours. Assessment and Plan (1) PAD (peripheral artery disease): Status: Acute (2) Non-healing ulcer of foot: Status: Acute (3) Cellulitis of left foot: Status: Acute Assessment and Plan: 55yo M patient with DM2, CAD, and HTN who was just admitted to this hospital 03/13-03/15/21 for cellulitis from non-healing diabetic heel ulcer presenting with persistent pain and worsening redness around the ulcer. # diabetic foot infection with nonhealing left heel ulcer with surrounding chuck lulitis ?? Burning pain left foot, noted to have decreased swelling and erythema, no fevers, no leukocytosis blood cultures x2 negative ?? bone scan showed no evidence of osteomyelitis, on? IV vancomycin + piperacillin/tazobactam day 4 Will DC IV vancomycin, add doxycycline, check MRSA nares ?? arterial Doppler studies showed significant stenosis SFA in left posterior tibial artery, will discuss with Dr. Sheppard regarding treatment options patient seen by Dr. Stewart ,he rec. no immediate debridement at this time. # left heel pain multifactorial ,neuropathic pain, likely has peripheral va scular disease ?? Dose of gabapentin increased from 300 t.i.d. to 600 t.i.d.,cont prn oxycodone dosage increased to 10 mg, will add low-dose amitriptyline at night to help with sleep and burning # CAD - continue ticagrelor, metoprolol,and atorvastatin # HTN - continue metoprolol, BP stable # DM2 - A1c 9.6, continue basal/bolus insulin blood sugars stable, elevated blood sugars will increase dose of Lantus to 25 units home dose 22 # VTE ppx - LMWH Quality Stroke Does the patient have a stroke diagnosis?: No VTE Prior VTE?: No VTE Risk Level:: Medical - moderate - high VTE Device Contraindication: N/A - Device Ordered VTE Drug Contraindication: N/A - Med Ordered
[2021-03-27 11:46] LABS: Glucose, Whole Blood 218 mg/dL (60-115)
[2021-03-27] MEDS: Insulin Lispro 100 UNIT/ML 3 ML VIAL SUBCUT ×3 (11:58→20:21)
[2021-03-27] MEDS: Enoxaparin Sodium 40 MG/0.4 ML SYRINGE SUBCUT (14:09)
[2021-03-27] MEDS: oxyCODONE HCl Immed Release 5 MG TABLET PO (16:30)
[2021-03-27 16:53] LABS: Glucose, Whole Blood 184 mg/dL (60-115)
[2021-03-27 20:19] LABS: Glucose, Whole Blood 276 mg/dL (60-115)
[2021-03-27] MEDS: Atorvastatin Calcium 20 MG TABLET PO (20:20)
[2021-03-27] MEDS: Amitriptyline HCl 10 MG TABLET 20 MG PO (20:20)
[2021-03-27] MEDS: Melatonin 3 MG TABLET 9 MG PO (20:20)
[2021-03-27] MEDS: Acetaminophen 325 MG TABLET 650 MG PO (20:21)
[2021-03-27] MEDS: Insulin Glargine,Hum.rec.anlog 100 UNIT/ML 10 ML VIAL 22 UNIT SUBCUT (20:21)
[2021-03-27 23:00] LABS: Vancomycin Trough 4.2 mcg/mL (10.0-20.0)
[2021-03-28 04:00] VITALS: BP 170/79; PULSE 63; RESP 16; TEMP 36.1; O2SAT 99
--- NOTE | 2021-03-28 04:26 | MHC.PIE ---
p; o2 sat 88-90 on ra i; o2 2l nasal cannula placed. i; dr toro notifed e; o2 sat 92-95 on 2l. will cont to monitor
[2021-03-28] MEDS: Piperacillin Sodium/Tazobactam 3.375 GM in 0.9 % Sodium Chloride 50 ML IV (06:14)
[2021-03-28] MEDS: HYDROcodone Bit/Acetam 5/325 TABLET 2 TAB PO ×2 (06:14→12:32)
[2021-03-28 07:29] VITALS: BP 146/77; PULSE 63; RESP 20; TEMP 36.3; O2SAT 96
[2021-03-28 07:37] LABS: Glucose, Whole Blood 164 mg/dL (60-115)
[2021-03-28] MEDS: Metoprolol Succinate ER 50 MG TAB.ER.24H PO (08:27)
[2021-03-28] MEDS: Gabapentin 600 MG TABLET PO (08:28)
[2021-03-28] MEDS: Ticagrelor 90 MG TABLET PO (08:28)
[2021-03-28] MEDS: Insulin Lispro 100 UNIT/ML 3 ML VIAL SUBCUT ×2 (08:28→12:33)
[2021-03-28] MEDS: 0.9 % Sodium Chloride Flush 3 ML SYRINGE IVFLUSH (08:29)
[2021-03-28] MEDS: Collagenase Clostridium Hist. 30 GM TUBE 1 APPL TOPICAL (08:32)
--- NOTE | 2021-03-28 11:04 | PM.DS ---
DS: Providers Provider Date of Service: 03/28/21 Date of admission: 03/24/21 11:20 Primary care physician: Shanta Haney MD Consults: 03/24/21 11:16 Consult to Wound Care Routine Consulting Provider: [facility] Reason for consultation: heel ulcer DM 03/24/21 11:18 Consult to Vascular Surgery Routine Consulting Provider: Berto Sheppard Reason for consultation: nonhealing DM foot ulcer- L heel 03/24/21 15:38 Consult to General Surgery Routine Consulting Provider: [facility] General Surgeons Reason for consultation: necrotic heel ulcer DS: Diagnosis Discharge Diagnosis (1) PAD (peripheral artery disease): Status: Acute (2) Non-healing ulcer of foot: Status: Acute (3) Cellulitis of left foot: Status: Acute DS: Medications Discharge Medications Home Medications: Home Medications Medication Instructions Recorded Confirmed empagliflozin 25 mg tablet 1 tab PO QAM 03/13/21 03/24/21 (Jardiance) insulin glargine 100 unit/mL (3 22 unit SUBCUT QPM 03/13/21 03/24/21 mL) subcutaneous pen (Lantus Solostar U-100 Insulin) metoprolol succinate 50 mg 1 tab PO DAILY 03/13/21 03/24/21 tablet,extended release 24 hr ticagrelor 90 mg tablet (Brilinta) 1 tab PO BID 03/13/21 03/24/21 aspirin 81 mg chewable tablet 81 mg PO DAILY 03/24/21 03/24/21 atorvastatin 20 mg tablet 1 tab PO BEDTIME 03/24/21 03/24/21 insulin lispro 100 unit/mL 17 unit SUBCUT BIDAC 03/24/21 03/24/21 subcutaneous pen (Humalog KwikPen (U-100) Insulin) Previous Rx's Medication Instructions Recorded walker (Ultra-Light Rollator) #1 ea 09/14/20 lancets 28 gauge (FreeStyle #100 ea 01/04/21 Lancets) blood sugar diagnostic (FreeStyle #100 ea 01/07/21 Lite Strips) blood-glucose meter (FreeStyle #1 ea 01/07/21 Lite Meter) lancets 28 gauge (FreeStyle #100 ea 01/07/21 Lancets) pen needle, diabetic 32 gauge x #125 ea 01/07/21 (BD Ultra-Fine Michelle Pen Needle) oxycodone 5 mg tablet 5 mg PO Q6H PRN #12 tab 03/15/21 amoxicillin 875 mg-potassium 1 tab PO BID #20 tab 03/28/21 clavulanate 125 mg tablet (Augmentin) doxycycline hyclate 100 mg capsule 100 mg PO BID #20 cap 03/28/21 gabapentin 600 mg tablet 600 mg PO TID #90 tab 03/28/21 oxycodone 5 mg tablet 5 mg PO Q6H PRN #20 tab 03/28/21 DS: Summary Hospital Course Hospital Course: History of presenting illness Chief Complaint: non-healing, painful L heel ulcer 55yo M patient of Dr Haney with DM2, CAD, and HTN who was just admitted to this hospital 03/13-03/15/21 for non-healing ulcer at the base of his left heel that started 6 weeks ago.? No history of trauma to the heel.? He was treated with IV vancomycin and piperacillin/tazobactam; MRI was negative for osteomyelitis, and he was discharged home with doxycycline and amoxicillin/clavulanate for a total of 10 days of treatment.? He has been taking the antibiotics; however, he complains of severe pain of the heel along with neuropathy.? No drainage from the wound, but he notes increasing redness and swelling around the ulcer. He has not yet been seen by the [facility] or by Podiatry.? No fever, chills, nausea, vomiting, or stomach upset.? He was not septic on presentation to the ED.? Admission was requested for concern of non-resolving diabetic foot infection and intractable pain. Past medical history Alcohol abuse Arthritis CAD (coronary artery disease) Chronic pancreatitis Diabetes mellitus with hyperglycemia, with long-term current use of insulin Essential hypertension Failure of outpatient treatment Hyperlipidemia Increased BMI Kidney calculus Type 2 diabetes mellitus with diabetic polyneuropathy Type 2 diabetes mellitus with hyperglycemia Hospital course 55 yo M patient with DM2, CAD, and HTN who was just admitted to this hospital 03/13-03/15/21 for cellulitis from non-healing diabetic heel ulcer presenting with persistent pain and worsening redness around the ulcer patient readmitted to hospital due to diabetic foot infection with nonhealing left heel ulcer with surrounding cellulitis and treated with IV vancomycin and Zosyn a bone scan was obtained that showed no evidence of osteomyelitis, blood cultures came back negative, patient seen by Dr. Sheppard and underwent arterial Doppler studies of lower extremity that showed significant stenosis SFA and left posterior tibial artery, Dr. Sheppard recommend outpatient treatment, patient was also evaluated by Dr. Stewart from. General surgery, no immediate debridement was recommended, since redness and swelling has improved patient is being discharged home on by mouth Augmentin and doxycycline for 10 more days and will have outpatient follow-up with Dr. Sheppard in regard to neuropathic pain dose of a Neurontin has been increased to 600 mg b.i.d. and patient is being discharged home on oxycodone 5 mg q.6 hours as needed total 20. Dispensed In regard to coronary artery disease and hypertension patient has been continued on all home medications he was noted to have an elevated hemoglobin A1c of 9.6 therefore strongly recommended to follow diabetic diet and recommend to continue home medications. Time Spent with Patient Time attestation: Total time spent providing and/or coordinating discharge services: Discharge coordination time: Greater than 30 minutes Quality: Stroke Does the patient have a stroke diagnosis?: No Physical Exam Vital Signs: Vital Signs: Last Vital Signs Temp 97.4 F 03/28/21 07:29 Pulse 63 03/28/21 07:29 Resp 20 03/28/21 07:29 BP 146/77 H 03/28/21 07:29 Pulse Ox 96 03/28/21 07:29 Body Mass Index 32.1 Gen:? no acute distress HEENT: sclera anicteric, moist mucus membranes Neck: supple Lungs: clear to auscultation bilaterally Heart: regular rate and rhythm, no murmurs Abd: soft, obese, non-tender, non-distended Left lower extremity, significant improvement in swelling and erythema around left heel , 3 cm ulcer with no drainage left heel. Neuro: alert and oriented x3, no focal findings, decreased sensation both feet Psych: appropriate affect DS: Data Data Completed and Pending Completed studies during hospitalization [Text1]: Procedures Dilation of Right Ureter with Intraluminal Device, Via Natural or Artificial Opening Endoscopic (06/21/20) Extirpation of Matter from Right Ureter, Via Natural or Artificial Opening Endoscopic (06/21/20) Fluoroscopy of Right Kidney, Ureter and Bladder (06/21/20) Labs on day of discharge: Laboratory Results - last 24 hr 03/27/21 03/27/21 03/27/21 09:55 11:25 16:32 POC Glucose 218 H 184 H Nasal Screen MRSA (PCR) NEGATIVE Nasal S. aureus Screen POSITIVE A Nasal MRSA/S.aureus Interp SEE NOTE Vancomycin Trough 03/27/21 03/27/21 03/28/21 20:12 22:13 07:32 POC Glucose 276 H 164 H Nasal Screen MRSA (PCR) Nasal S. aureus Screen Nasal MRSA/S.aureus Interp Vancomycin Trough 4.2 L Preliminary micro results at discharge 03/24/21 11:52 Blood Culture - Preliminary Blood - Venous No growth after 48 hours. 03/24/21 11:45 Blood Culture - Preliminary Blood - Venous No growth after 48 hours. Discharge Plan Discharge Patient Disposition: Home, Self-Care Discharge Diagnosis: Left heel cellulitis Nonhealing left heel ulcer Peripheral arterial disease Left heel pain Referrals: Shanta Haney MD [Primary Care Provider] - 1 Week Discharge Medications: New gabapentin 600 mg Tablet 600 mg PO TID Qty: 90 RF: 0 amoxicillin-pot clavulanate [Augmentin] 875-125 mg tablet 1 tab PO BID Qty: 20 RF: 0 doxycycline hyclate 100 mg capsule 100 mg PO BID Qty: 20 RF: 0 oxycodone 5 mg tablet 5 mg PO Q6H PRN (Reason: pain (scale score 7-10)) Qty: 20 RF: 0 Continued metoprolol succinate 50 mg tablet extended release 24 hr 1 tab PO DAILY RF: 0 Lantus Solostar U-100 Insulin 100 unit/mL (3 mL) insulin pen 22 unit subcut QPM RF: 0 Brilinta 90 mg tablet 1 tab PO BID RF: 0 Jardiance 25 mg tablet 1 tab PO QAM RF: 0 oxycodone 5 mg Tablet 5 mg PO Q6H PRN (Reason: Pain, Severe (Pain Scale 7-10)) Qty: 12 RF: 0 atorvastatin 20 mg tablet 1 tab PO BEDTIME RF: 0 aspirin 81 mg Tablet,Chewable 81 mg PO DAILY RF: 0 insulin lispro [Humalog KwikPen Insulin] 100 unit/mL Insulin Pen 17 unit SUBCUT BIDAC RF: 0 Discontinued doxycycline hyclate 100 mg tablet 100 mg PO BID Qty: 16 RF: 0 metformin 500 mg Tablet 500 mg PO BID RF: 0 gabapentin 300 mg capsule 1 cap PO TID RF: 0 No Action (DME) Ultra-Light Rollator Misc See Rx Instructions .ROUTE .MEDSUPPLY Qty: 1 RF: 0 (DME) lancets [FreeStyle Lancets] 28 gauge misc See Rx Instructions .ROUTE .MEDSUPPLY Qty: 100 RF: 1 (DME) blood-glucose meter [FreeStyle Lite Meter] Kit See Rx Instructions .ROUTE .MEDSUPPLY Qty: 1 RF: 0 (DME) FreeStyle Lite Strips Strip See Rx Instructions .ROUTE .MEDSUPPLY Qty: 100 RF: 11 (DME) lancets [FreeStyle Lancets] 28 gauge misc See Rx Instructions .ROUTE .MEDSUPPLY Qty: 100 RF: 11 (DME) pen needle, diabetic [BD Ultra-Fine Michelle Pen Needle] 32 gauge x 5/32 needle See Rx Instructions .ROUTE .MEDSUPPLY Qty: 125 RF: 6 Discharge Orders: Discharge Order (Routine); Ordered 03/28/21 Ordered By: Steve Toribio Diet: diabetic diet Activity on Discharge: As tolerated Stand Alone Forms: Patient Portal Discharge page Care Plan Goals: Left heel cellulitis and nonhealing ulcer continue taking Augmentin and doxycycline for 10 days continue dressing change daily with Santyl and follow-up with wound clinic at [facility] Concerns: Diabetes mellitus, nonhealing left heel ulcer, peripheral arterial disease, continue all home medications as before follow diabetic diet, hold metformin Plan of Treatment: Outpatient follow-up with PCP in next 1-2 weeks outpatient follow-up with Dr. Sheppard in 1 week Assessment: as tolerated
--- NOTE | 2021-03-28 11:11 | MHC.CM.PN ---
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
[2021-03-28 11:19] LABS: Glucose, Whole Blood 178 mg/dL (60-115)
[2021-03-28 12:00] VITALS: BP 148/80; PULSE 78; RESP 18; TEMP 36.3; O2SAT 94
== END 2021-03-28 13:53 | disposition home or self-care (01) | DRG 380 ==
LOC: HO.ED 03-24 07:15 → HO.EDOVER 03-24 11:39 → HO.S3 03-24 19:37
PROVIDERS: Internal Medicine; Admitting Provider Family Medicine; Emergency Provider Student in an Organized Health Care Education/Training Program; PCP Internal Medicine; Visit Provider Hospitalist
DX: E11.621 Type 2 diabetes mellitus with foot ulcer (principal); L97.429 Non-pressure chronic ulcer of left heel and midfoot with unspecified severity; E11.42 Type 2 diabetes mellitus with diabetic polyneuropathy; E11.51 Type 2 diabetes mellitus with diabetic peripheral angiopathy without gangrene; L03.116 Cellulitis of left lower limb; I10 Essential (primary) hypertension; I25.10 Atherosclerotic heart disease of native coronary artery without angina pectoris; E78.5 Hyperlipidemia, unspecified; Z87.891 Personal history of nicotine dependence; Z20.822 Contact with and (suspected) exposure to COVID-19; Z79.4 Long term (current) use of insulin; Z79.82 Long term (current) use of aspirin; Z79.899 Other long term (current) drug therapy
CPT/HCPCS: 36415; 78315; 80048; 80053; 80202; 82565; 82947; 83036; 85025; 85027; 85652; 86140; 87040; 87635; 87640; 87641; 93925; 99285; A9503; J1650; J2270; J2543; J3370

== ENCOUNTER → 2021-03-30 11:38 | Outpatient (BNVA) | payer MEDICAID, SELFPAY | PROVIDERS: PCP Internal Medicine; Visit Provider Surgery Vascular Surgery ==

== ENCOUNTER 2021-04-02 14:02 | Outpatient (RCR) | payer OTHER, SELFPAY | END 2021-08-30 15:28 | disposition home or self-care (01) | LOC: HO.WCC 14:02 | PROVIDERS: PCP Internal Medicine; Visit Provider Physician Assistant | DX: E11.621 Type 2 diabetes mellitus with foot ulcer (principal); E11.51 Type 2 diabetes mellitus with diabetic peripheral angiopathy without gangrene; I70.235 Atherosclerosis of native arteries of right leg with ulceration of other part of foot; L97.511 Non-pressure chronic ulcer of other part of right foot limited to breakdown of skin; I70.244 Atherosclerosis of native arteries of left leg with ulceration of heel and midfoot; L97.425 Non-pressure chronic ulcer of left heel and midfoot with muscle involvement without evidence of necrosis; E11.40 Type 2 diabetes mellitus with diabetic neuropathy, unspecified; I15.9 Secondary hypertension, unspecified; Z79.4 Long term (current) use of insulin; Z87.891 Personal history of nicotine dependence; Z89.411 Acquired absence of right great toe | CPT/HCPCS: 11042; 11043; 97602; 97605; 99212; 99213; 99214 ==

== ENCOUNTER 2021-04-14 07:03 | Day surgery (SDC) | payer OTHER, SELFPAY ==
[2021-04-14] VITALS (7 sets, daily range): BP systolic 146–167; BP diastolic 75–88; PULSE 62–68; RESP 16–18; TEMP 36.1; O2SAT 98; BMI 32.0
[2021-04-14 07:56] LABS: Glucose, Whole Blood 159 mg/dL (60-115)
[2021-04-14 08:15] LABS: MANUAL DIFF FLAG NO
[2021-04-14 08:18] LABS: Basophils Absolute Auto 0.1 X10*3/uL (0.0-0.2); Basophils Percent Auto 0.9 % (0-2); Eosinophils Absolute Auto 0.5 X10*3/uL (0.0-0.4); Eosinophils Percent Auto 4.4 % (0-4); Hematocrit 46.2 % (42-52); Hemoglobin 14.7 g/dl (14.0-18.0); Imm Gran Abs Auto 0.11 X10*3/uL (0.00-0.03); Lymphocytes Absolute Auto 3.2 X10*3/uL (1.2-4.9); Lymphocytes Percent Auto 28.1 % (20-40); Mean Corpuscular HGB Conc 31.8 g/dl (31.0-36.0); Mean Corpuscular Hemoglobin 27.1 pg (27.0-33.0); Mean Corpuscular Volume 85.1 fL (80-98); Mean Platelet Volume 10.4 fL (9.4-12.4); Monocytes Absolute Auto 1.1 X10*3/uL (0.1-1.2); Monocytes Percent Auto 9.5 % (2-11); Neutrophils Absolute Auto 6.3 X10*3/uL (2.0-8.3); Neutrophils Percent Auto 56.1 % (45-73); Platelet Count 271 X10*3/uL (160-400); Red Blood Count 5.43 X10*6/uL (4.60-5.80); Red Cell Distribution Width 14.7 % (11.0-16.0); White Blood Count 11.2 X10*3/uL (4.8-10.8)
[2021-04-14 08:22] LABS: INTERNATIONAL NORM RATIO 0.9 (0.9-1.1); Prothrombin Time 10.6 SEC (9.9-13.0)
[2021-04-14 08:25] LABS: Partial Thromboplastin Time 33.3 SEC (24.1-38.0)
[2021-04-14 08:45] LABS: Anion Gap 15 (12-20); Blood Urea Nitrogen 20 mg/dL (9-16); Calcium 9.4 mg/dL (8.4-10.2); Carbon Dioxide 23 mmol/L (22-29); Chloride 104 mmol/L (96-108); Creatinine Clr Calc Pharmacy 108.5; Estimated Glomerular Filt Rate > 60; Glucose Random 174 mg/dL (60-115); Potassium 4.1 mmol/L (3.3-5.1); Sodium 138 mmol/L (135-145)
--- NOTE | 2021-04-14 11:20 | W.PM.OPN ---
Operative Note Operative Note Date of Service: 04/14/21 Narrative: Angiogram report from [facility] Preoperative diagnosis: Atherosclerosis of left lower extremity with nonhealing ulcer Postoperative diagnosis: Same Procedure: 1. Ultrasound-guided right common femoral access 2. Aortogram with left lower extremity runoff 3. Angioplasty of left anterior tibial peroneal and posterior tibial arteries 4. Atherectomy and plasty of left popliteal artery 5. Plasty of left mid SFA Surgeon:Berto Sheppard M.D. Packaging Design Engineer:None Anesthesia: Local with moderate conscious sedation for a total of 78 minutes, performed by dc Specimens:none Drains:none Estimated blood loss: Less than 10 ml Indications: 55-year-old gentleman with a history of nonhealing left lower extremity heel ulceration was shown to have peripheral vascular disease on ultrasound. He now presents for endovascular intervention. The patient has signed the informed consent after reviewing risks, complications, benefits, and alternatives previously discussed with the patient in my office. The patient was given the opportunity to ask any additional questions or voice any concerns. All questions were answered to the patient's satisfaction. Procedure in detail: Patient was brought to the angiography suite prior to which a time-out was called for patient identification and site verification. Bilateral groins were prepped and draped in the standard surgical fashion. Under ultrasound guidance right common femoral was punctured with micro puncture needle and wire. Subsequently a precision 4 Faroese sheath was then placed. Bentson wire was advanced to the level of the aorta. 4 Faroese Flush catheter was brought up and parked at the level of the renal arteries. Aortogram was then undertaken. Catheter was brought down to the level of the iliac bifurcation. Iliacs were subsequently imaged. Catheter was then brought in up and over to the left side SFA. Runoff study was then undertaken. It was recognized that he had significant popliteal and below-knee disease. 5000 units of systemic heparin was administered. After 5 minutes of circulation time up and over 6 Faroese sheath was then placed. Using a Glidewire Advantage we were able to get to the below-knee popliteal area. Gaffney Blazer catheter was then placed. We were then able to get in to the anterior tibial with an 014 wire. We plasty this with a 2.5 x 60 balloon. We then redirected in to the peroneal and this was plasty with a 2.5 x 60 balloon as well and we redirected in to the posterior tibial the origin was plasty D with a per 2.0 x 40 balloon. Once this was accomplished we then exchanged out for a spider wire. We did an atherectomy with the Hawk 1 device of the behind knee popliteal area. We followed this subsequently with a 5 x 80 balloon and then a 5 x 80 drug coated balloon. This was brought into position and under 3 minutes and insufflated for a total of 3 minutes in duration. There was a small flow-limiting lesion at the mid SFA area this was initially plasty and with a 6 x 20 balloon. Subsequently we plasty this area with a 6 x 40 drug coated balloon. Once again it was brought into position and under 3 minutes and insufflated for a total of 3 minutes in duration. Completion angiogram demonstrated excellent result. Catheter wire sheath was brought back to the ipsilateral side. StarClose closure device was then deployed. Patient tolerated the procedure well returned to recovery with stable vitals. Interpretation of films: 1. Ultrasound demonstrates appropriate femoral puncture. Image of which was saved. 2. Aortogram demonstrates appropriate caliber aorta. Minimal disease. Appropriate take-off of the renals. 3. Iliac images demonstrate normal caliber iliacs no significant disease. 4. Left lower extremity study demonstrated good flow through the common femoral profundus down through the mid SFA moderate stenosis at the mid SFA. Good reconstitution and there was a high-grade stenosis at the behind knee popliteal and high-grade stenosis at the origin of the anterior tibial peroneal and posterior tibial arteries. Postprocedure angiogram demonstrated excellent flow through the SFA popliteal did with good 3 vessel runoff. Conclusion: 1. Successful plasty left SFA, atherectomy and plasty of left popliteal, plasty of left anterior tibial peroneal and posterior tibial arteries. The patient is being maintained on aspirin and Brilinta. This note is constructed using voice recognition software. While every effort has been made to ensure accuracy, cartridge filler errors may have been included. Thank you for allowing me to participate in the care of your patient. Yours sincerely, Berto Sheppard MD, FACS, R.P.V.I.
[2021-04-14] MEDS: Acetaminophen 325 MG TABLET 650 MG PO (11:29)
[2021-04-14] MEDS: oxyCODONE HCl Immed Release 5 MG TABLET PO (11:29)
[2021-04-14] MEDS: iohexoL 300 MG/ML 100 ML INFUS..BTL IV (11:58)
[2021-04-14] MEDS: iohexoL 300 MG/ML 50 ML INFUS..BTL IV (11:59)
== END 2021-04-14 13:51 | disposition home or self-care (01) ==
PROVIDERS: PCP Internal Medicine; Visit Provider Surgery Vascular Surgery
DX: E11.51 Type 2 diabetes mellitus with diabetic peripheral angiopathy without gangrene (principal); L97.429 Non-pressure chronic ulcer of left heel and midfoot with unspecified severity; I70.244 Atherosclerosis of native arteries of left leg with ulceration of heel and midfoot; M79.662 Pain in left lower leg; E11.65 Type 2 diabetes mellitus with hyperglycemia; E11.42 Type 2 diabetes mellitus with diabetic polyneuropathy; Z79.4 Long term (current) use of insulin; I25.10 Atherosclerotic heart disease of native coronary artery without angina pectoris; I10 Essential (primary) hypertension; Z98.61 Coronary angioplasty status; F10.10 Alcohol abuse, uncomplicated; K86.0 Alcohol-induced chronic pancreatitis; F12.90 Cannabis use, unspecified, uncomplicated; Z87.891 Personal history of nicotine dependence
CPT/HCPCS: 36415; 37225; 37228; 37232; 80048; 82947; 85025; 85610; 85730; 99152; 99153; C1714; C1725; C1760; C1769; C1884; C1887; J2250; J3010; Q9967

== ENCOUNTER 2021-04-16 14:44 | Observation (INO) | payer OTHER, SELFPAY ==
--- NOTE | ~2021-04-16 | XR_ITS ---
EXAMINATION: XR FOOT, LEFT CLINICAL INFORMATION: Osteomyelitis. COMPARISON: Left foot February 23, 2021. MR left foot March 15, 2021 TECHNIQUE: 4 views of the left foot. FINDINGS: No fracture. No focal bone lesion or bone destruction. No abnormal periosteal reaction. Bone mineral density is normal. No radiographic evidence for osteomyelitis. Joint spaces are normal. There is a small plantar calcaneal spur. Small vessel calcifications in the ankle and foot. XR/XR foot LT 2V IMPRESSION: No acute abnormality of the foot. No radiographic evidence for osteomyelitis.
[2021-04-16 15:27] VITALS: BP 132/67; PULSE 88; RESP 17; TEMP 36.2; O2SAT 98; BMI 31.8
[2021-04-16 16:08] LABS: MANUAL DIFF FLAG NO
[2021-04-16 16:11] LABS: Basophils Absolute Auto 0.1 X10*3/uL (0.0-0.2); Basophils Percent Auto 0.8 % (0-2); Eosinophils Absolute Auto 0.5 X10*3/uL (0.0-0.4); Eosinophils Percent Auto 4.6 % (0-4); Hematocrit 43.3 % (42-52); Hemoglobin 14.1 g/dl (14.0-18.0); Imm Gran Abs Auto 0.06 X10*3/uL (0.00-0.03); Imm Gran Pct Auto 0.5 % (0.0-0.4); Lymphocytes Absolute Auto 2.3 X10*3/uL (1.2-4.9); Lymphocytes Percent Auto 21.1 % (20-40); Mean Corpuscular HGB Conc 32.6 g/dl (31.0-36.0); Mean Corpuscular Volume 82.8 fL (80-98); Mean Platelet Volume 10.5 fL (9.4-12.4); Monocytes Absolute Auto 1.1 X10*3/uL (0.1-1.2); Monocytes Percent Auto 9.8 % (2-11); Neutrophils Absolute Auto 6.9 X10*3/uL (2.0-8.3); Neutrophils Percent Auto 63.2 % (45-73); Platelet Count 251 X10*3/uL (160-400); Red Blood Count 5.23 X10*6/uL (4.60-5.80); Red Cell Distribution Width 14.6 % (11.0-16.0)
[2021-04-16 16:35] LABS: Lactic Acid 1.3 mmol/L (0.5-2.0)
[2021-04-16 16:37] LABS: Anion Gap 16 (12-20); Blood Urea Nitrogen 20 mg/dL (9-16); Calcium 9.8 mg/dL (8.4-10.2); Carbon Dioxide 22 mmol/L (22-29); Chloride 103 mmol/L (96-108); Creatinine Clr Calc Pharmacy 95.5; Estimated Glomerular Filt Rate > 60; Glucose Random 199 mg/dL (60-115); Potassium 4.3 mmol/L (3.3-5.1); Sodium 137 mmol/L (135-145)
[2021-04-16 20:59] VITALS: BP 135/79; PULSE 83; RESP 18; TEMP 36.6; O2SAT 98
--- NOTE | 2021-04-16 21:13 | ED_ITS ---
HPI - Extremity Problem General Chief complaint: Extremity Problem Stated complaint: lt leg pain ? infection Time Seen by Provider: 04/16/21 21:03 Source: patient Mode of arrival: ambulatory Limitations: no limitations History of Present Illness HPI Narrative: 55-year-old male came in for evaluation of left foot heel ulcer. Patient has been having also perform many months follow with the wound clinic, patient was started on antibiotic yesterday (patient took it yesterday) because patient noticed discharge from the ulcer wound and increase the pain patient return to the emergency department for further evaluation. Related Data Home Medications Medication Instructions Recorded Confirmed empagliflozin 25 mg tablet 1 tab PO QAM 03/13/21 03/24/21 (Jardiance) insulin glargine 100 unit/mL (3 22 unit SUBCUT QPM 03/13/21 03/24/21 mL) subcutaneous pen (Lantus Solostar U-100 Insulin) metoprolol succinate 50 mg 1 tab PO DAILY 03/13/21 03/24/21 tablet,extended release 24 hr ticagrelor 90 mg tablet (Brilinta) 1 tab PO BID 03/13/21 03/24/21 aspirin 81 mg chewable tablet 81 mg PO DAILY 03/24/21 03/24/21 atorvastatin 20 mg tablet 1 tab PO BEDTIME 03/24/21 03/24/21 insulin lispro 100 unit/mL 17 unit SUBCUT BIDAC 03/24/21 03/24/21 subcutaneous pen (Humalog KwikPen (U-100) Insulin) Previous Rx's Medication Instructions Recorded walker (Ultra-Light Rollator) #1 ea 09/14/20 lancets 28 gauge (FreeStyle #100 ea 01/04/21 Lancets) blood sugar diagnostic (FreeStyle #100 ea 01/07/21 Lite Strips) blood-glucose meter (FreeStyle #1 ea 01/07/21 Lite Meter) lancets 28 gauge (FreeStyle #100 ea 01/07/21 Lancets) pen needle, diabetic 32 gauge x #125 ea 01/07/21 (BD Ultra-Fine Michelle Pen Needle) oxycodone 5 mg tablet 5 mg PO Q6H PRN #12 tab 03/15/21 doxycycline hyclate 100 mg capsule 100 mg PO BID #20 cap 03/28/21 gabapentin 600 mg tablet 600 mg PO TID #90 tab 03/28/21 oxycodone 5 mg tablet 5 mg PO Q6H PRN #20 tab 03/28/21 amoxicillin 875 mg-potassium 1 tab PO BID #20 tab 04/15/21 clavulanate 125 mg tablet (Augmentin) oxycodone-acetaminophen 10 mg-325 1 tab PO Q6H PRN #15 tab 04/15/21 mg tablet (Percocet) Allergies Allergy/AdvReac Type Severity Reaction Status Date / Time No Known Allergies Allergy Verified 03/12/21 21:52 [No Known Allergies*] Review of Systems Review of Systems: All other systems are reviewed and are negative Constitutional: Reports as per HPI and Reports no additional constitutional complaints Eyes: Reports as per HPI and Reports no additional eye complaints Reports system reviewed and no additional complaints, except as documented Cardiovascular: Reports as per HPI and Reports no additional cardiovascular complaints Respiratory: Reports as per HPI and Reports no additional respiratory complaints Gastrointestinal: Reports as per HPI and Reports no additional gastrointestinal complaints Genitourinary: Reports no additional female genitourinary complaints Musculoskeletal: Reports no additional musculoskeletal complaints Skin/Breast: Reports system reviewed and no additional complaints, except as docu Psychiatric: Reports no additional psychiatric complaints Endocrine: Reports no additional endocrine complaints Hematologic/Lymphatic: Reports no additional hematologic/lymphatic complaints Allergic/Immunologic: Reports no additional allergic/immunologic complaints Reports system reviewed and no additional complaints, except as documented and Reports Abnormal speech present [facility] Past Medical History Medical History Alcohol abuse Arthritis CAD (coronary artery disease) Chronic pancreatitis Diabetes mellitus with hyperglycemia, with long-term current use of insulin Essential hypertension Failure of outpatient treatment Hyperlipidemia Increased BMI Kidney calculus Type 2 diabetes mellitus with diabetic polyneuropathy Type 2 diabetes mellitus with hyperglycemia Surgical History Hx of heart artery stent Hx of lithotripsy Status post laparoscopic cholecystectomy Family History Family History Mother [place] (myocardial infarction), Onset Age: 64 Diabetes mellitus HTN (hypertension) Maternal Grandmother Diabetes mellitus Social History Social History Household Members: Family Household Members Other:: and daughter Housing: House Do you presently have visiting nurse or other home services: No Alcohol intake: current Alcohol intake frequency: holidays/special occasions only Patient Tobacco Use Status: Former Tobacco user Tobacco use type: Cigarette Cigarettes Per Day: 7 Years Smoked: 28 Second Hand Smoke Exposure: Yes Substance Use Type: Marijuana Advance Directives: Yes Advance Directives Information Provided: Yes Advance Directives on File: No service: No Current occupational status: employed Physical Exam Vital Signs: Vital Signs: Last Vital Signs Temp 98 F 04/16/21 20:59 Pulse 83 04/16/21 20:59 Resp 18 04/16/21 20:59 BP 135/79 04/16/21 20:59 Pulse Ox 98 04/16/21 20:59 Body Mass Index 31.8 Vital signs have been reviewed as appeared to be correct. Blood pressure normal. Heart rate normal. Respiration rate normal. Temperature normal. Oxygen saturation normal. Appearance: Alert. Oriented X3. No acute distress. Head: Normal external exam. Normocephalic. Atraumatic. No Mix signs noted. No raccoon eyes noted Eyes: PERRLA. EOMI. Conjunctiva and sclera normal. Eyelids normal. ENT: TM's Normal. Pharynx normal. Uvula midline. Moist mucous membranes. No trismus noted. No drooling noted. No muffled voice noted. Neck: Normal inspection. Neck supple. FROM. No adenopathy. Thyroid Normal. No meningeal signs. No neck mass noted. CVS: Normal heart rate and rhythm. Heart sound normal. No murmurs noted. Pulses normal throughout. Respiratory: No respiratory distress. Painless inspiration. Breath sounds normal. No wheezes/rales/rhonchi noted. Chest nontender. No accessory muscle usage noted or decreased air movement noted. Abdomen: Soft and nontender. Bowel sounds normal in all 4 quadrants. No distention noted. No organomegaly noted. No visible injury noted. Back: No CVA tenderness. Full range of motion noted. Skin: Skin warm and dry. Normal skin color. Normal skin turgor. No rashes/lesions/lacerations noted. Extremities: Left foot 2 x 3 area of ulcerative lesion at the heel of the left foot surrounded by area of cellulitis, no fluctuation or abscess. Neuro: Oriented X 3. Cranial nerve exam: II-XII are grossly intact No motor deficit. No sensory deficit. Reflexes normal. Course Course Course Narrative: Assessment and plan. 55-year-old male with diabetic foot ulcer that is not responding to p.o. antibiotics, will admit the patient for IV antibiotics. MDM - Extremity (Nontraumatic) Lab Data Attestation: I reviewed the patient's lab results. Result diagrams: 04/16/21 15:59 04/16/21 15:59 Labs: Lab Results 04/16/21 04/16/21 04/16/21 Range/Units 15:59 15:59 15:59 WBC 11.0 H (4.8-10.8) X10*3/uL RBC 5.23 (4.60-5.80) X10*6/uL Hgb 14.1 (14.0-18.0) g/dl Hct 43.3 (42-52) % MCV 82.8 (80-98) fL MCH 27.0 (27.0-33.0) pg MCHC 32.6 (31.0-36.0) g/dl RDW 14.6 (11.0-16.0) % Plt Count 251 (160-400) X10*3/uL MPV 10.5 (9.4-12.4) fL Immature Gran % (Auto) 0.5 H (0.0-0.4) % Neut % (Auto) 63.2 (45-73) % Lymph % (Auto) 21.1 (20-40) % Cooper % (Auto) 9.8 (2-11) % Eos % (Auto) 4.6 H (0-4) % Baso % (Auto) 0.8 (0-2) % Lymph # (Auto) 2.3 (1.2-4.9) X10*3/uL Cooper # (Auto) 1.1 (0.1-1.2) X10*3/uL Eos # (Auto) 0.5 H (0.0-0.4) X10*3/uL Baso # (Auto) 0.1 (0.0-0.2) X10*3/uL Abs Immat Gran (auto) 0.06 H (0.00-0.03) X10*3/uL Absolute Neuts (auto) 6.9 (2.0-8.3) X10*3/uL Absolute Nucleated RBC 0.000 (0.0-0.012) X10*3/uL Nucleated RBC % (auto) 0.0 (0.0-0.2) /100WBC Sodium 137 (135-145) mmol/L Potassium 4.3 (3.3-5.1) mmol/L Chloride 103 (96-108) mmol/L Carbon Dioxide 22 (22-29) mmol/L Anion Gap 16 (12-20) BUN 20 H (9-16) mg/dL Creatinine 1.02 (0.5-1.4) mg/dL Estim Creat Clear Calc 95.5 Estimated GFR > 60 Random Glucose 199 H (60-115) mg/dL Lactic Acid 1.3 (0.5-2.0) mmol/L Calcium 9.8 (8.4-10.2) mg/dL Imaging Data Left foot x-ray: Radiologist's impression: No acute abnormalities of the foot, no radiographic evidence for osteomyelitis per Discharge Plan Discharge Clinical Impression: Diabetic foot ulcer Qualifiers: Diabetic foot ulcer location: heel Laterality: left Patient Disposition: Admitted As Inpatient
[2021-04-16] MEDS: Ketorolac Tromethamine 15 MG/ML VIAL 30 MG IVPUSH (22:15)
--- NOTE | 2021-04-16 22:37 | P.HPHOSP_ITS ---
History of Present Illness Date of Service: 04/16/21 Chief Complaint: Left heel ulcer worsening 55-year-old male with history of diabetes mellitus, polyneuropathy, peripheral artery disease, chronic diabetic ulcers (with slow healing), CAD, hypertension, hyperlipidemia, arthritis, who presented with increased pain and swelling of his left heel chronic ulcer. History is from patient and from ED notes. Patient endorsed that he has been dealing with chronic foot ulcers for about 2-3 months now, complicated in part by his poor circulation. He visits the wound care clinic that is associated with this hospital. Yesterday, he went to the Wound Care Clinic, and was prescribed an antibiotic; he states he was able to take a dose, but today he felt like his left heel ulcer is more painful, with surrounding swelling and also some yellow drainage, therefore he came to the ED. he states that he has been on antibiotic treatments for this ulcer in the past as well. Otherwise, he denies systemic symptoms including fever, chills, nausea, vomiting, chest pain, shortness of breath, diarrhea, abdominal pain. In the ED, vitals and labs were unremarkable with the exception of WBC of 11 and a glucose of 199. Left foot x-ray was negative for obvious signs of osteomyelitis. ED physician treated the patient with IV vancomycin and IV Zosyn as well as ketorolac for pain. The patient is being admitted for left heel infected diabetic ulcer that possibly failed outpatient antibiotic therapy. Review of Systems Constitutional: Constitutional: Denies chills, Denies fatigue, Denies fever(s), Denies headache(s), Denies weakness and Denies weight loss Eyes: Eyes: Denies blurry vision, Denies change in vision, Denies diplopia and Denies loss of vision ENT: Denies dysphagia, Denies vertigo, Denies dizziness, Denies headache(s), Denies hearing loss, Denies lip swelling and Denies sore throat Cardiovascular: Cardiovascular: Denies chest pain, Denies leg edema, Denies li ghtheadedness, Denies palpitations and Denies dyspnea Respiratory: Respiratory: Denies no additional respiratory complaints, Denies cough, Denies dyspnea and Denies wheezing Gastrointestinal: Gastrointestinal: Denies coffee ground emesis, Denies constipation, Denies dysphagia, Denies diarrhea, Denies nausea and Denies vomiting Genitourinary: Genitourinary: Denies dysuria Musculoskeletal: Musculoskeletal: Denies arthralgias, Denies muscle weakness, Denies numbness and Denies tingling Integumentary/Breasts: Skin/Breast: Denies bleeding lesions, Denies new lesions, Reports non-healing lesions (Left heel ulcer and right 1st toe ulcer is very slow to heal) and Denies rash Neurologic: Denies vertigo, Denies dizziness, Denies headache(s), Denies loss of vision, Denies numbness, Denies tingling and Denies weakness Psychiatric: Psychiatric: Denies anxiety and Denies depression Endocrine: Endocrine: Denies cold intolerance, Denies fatigue, Denies heat intolerance and Denies palpitations Hematologic/Lymphatic: Hematologic/Lymphatic: Denies easy bleeding, Denies easy bruising and Denies lymphadenopathy Allergic/Immunologic: Allergic/Immunologic: Denies lip swelling and Denies w heezing [facility] Medical History Alcohol abuse Arthritis CAD (coronary artery disease) Chronic pancreatitis Diabetes mellitus with hyperglycemia, with long-term current use of insulin Essential hypertension Failure of outpatient treatment Hyperlipidemia Increased BMI Kidney calculus Type 2 diabetes mellitus with diabetic polyneuropathy Type 2 diabetes mellitus with hyperglycemia Family History Mother [place] (myocardial infarction), Onset Age: 64 Diabetes mellitus HTN (hypertension) Maternal Grandmother Diabetes mellitus Surgical History Hx of heart artery stent Hx of lithotripsy Status post laparoscopic cholecystectomy Social History Household Members: Family Household Members Other:: and daughter Housing: House Do you presently have visiting nurse or other home services: No Alcohol intake: current Alcohol intake frequency: holidays/special occasions only Patient Tobacco Use Status: Former Tobacco user Tobacco use type: Cigarette Cigarettes Per Day: 7 Years Smoked: 28 Second Hand Smoke Exposure: Yes Substance Use Type: Marijuana Advance Directives: Yes Advance Directives Information Provided: Yes Advance Directives on File: No service: No Current occupational status: employed Meds Allergies Allergy/AdvReac Type Severity Reaction Status Date / Time No Known Allergies Allergy Verified 03/12/21 21:52 [No Known Allergies*] Active Medications: Current Medications Generic Name Dose Route Start Last Admin Trade Name Freq PRN Reason Stop Dose Admin Acetaminophen 650 mg 04/16/21 22:32 Acetaminophen 325 Mg Tablet PO Q6H PRN Pain, Mild (Pain Scale 1-3) Hydrocodone Bitart/Acetaminophen 1 tab 04/16/21 22:32 Hydrocodone Bit/Acetam 5/325 Tablet PO Q4H PRN Pain, Moderate (Pain Scale 4-6 Enoxaparin Sodium 40 mg 04/16/21 22:45 Enoxaparin Sodium 40 Mg/0.4 Ml Syringe SUBCUT Q24H [facility] Pharmacy Consult 1 each 04/16/21 21:05 Consult Rx Vancomycin Dosing MISCELLANE DAILY PRN Consult order Sodium Chloride 3 ml 04/17/21 00:00 0.9 % Sodium Chloride Flush 3 [facility] Medic[facility] Medication Instructions Recorded Confirmed Last Taken Type empagliflozin 25 mg tablet 1 tab PO QAM 03/13/21 03/24/21 03/23/21 History (Jardiance) insulin glargine 100 unit/mL (3 22 unit SUBCUT QPM 03/13/21 03/24/21 03/23/21 History mL) subcutaneous pen (Lantus Solostar U-100 Insulin) metoprolol succinate 50 mg 1 tab PO DAILY 03/13/21 03/24/21 03/23/21 History tablet,extended release 24 hr ticagrelor 90 mg tablet (Brilinta) 1 tab PO BID 03/13/21 03/24/21 03/23/21 History aspirin 81 mg chewable tablet 81 mg PO DAILY 03/24/21 03/24/21 03/23/21 History atorvastatin 20 mg tablet 1 tab PO BEDTIME 03/24/21 03/24/21 03/23/21 History insulin lispro 100 unit/mL 17 unit SUBCUT BIDAC 03/24/21 03/24/21 03/23/21 History subcutaneous pen (Humalog KwikPen (U-100) Insulin) Physical Exam Vital Signs and Narrative: Vital Signs: Last Vital Signs Temp 98 F 04/16/21 20:59 Pulse 83 04/16/21 20:59 Resp 18 04/16/21 20:59 BP 135/79 04/16/21 20:59 Pulse Ox 98 04/16/21 20:59 Body Mass Index 31.8 Const: General: no acute distress, well developed and alert HENMT: Face and sinus: Yes normal facial exam and Yes face symmetric Mouth: Normal oral and palatal mucosa present and moist mucous membranes Throat: Yes posterior oropharynx normal and Yes tonsils normal Eyes: General: appearance normal, both eyes and all related structures Alignment and Position: alignment normal and position normal Sclerae: sclerae normal Pupils: Equal, round and reactive pupils present EOM: EOMs intact bilaterally Neck: Yes normal visual inspection, Yes full ROM and Yes no lymphadenopathy Lymphatic: no lymphadenopathy noted Resp: Effort & Inspection: normal respiratory effort and able to speak in com plete sentences Auscultation: clear to auscultation bilaterally, no crackles, no rales, no rhonchi and no wheezes Cardio: Rate: regular rate Rhythm: regular rhythm Heart sounds: S1 normal heart sound present, S2 normal heart sound present, no murmurs and no rubs GI: Inspection: No distended Palpation (GI): Soft to palpation and nontender Percussion: No tympanic to percussion Auscultation: normal bowel sounds Skin: Rashes: no rashes Trauma: no lacerations or abrasions Wounds: wounds noted (Left heel ulcer and right 1st toe ulcer) Neuro: Cranial nerves: Yes CN's II-XII intact bilaterally, Yes Equal, round and reactive pupils present and Yes Bilaterally intact EOM present Extrem: Other: Left heel ulcer: About 3 cm in diameter, with eschar and some surrounding rim of non-eschar ulceration, overall does not appear to be infected, no drainage, however there is surrounding erythema and tenderness to palpation. Right great toe ulcer: About 1.5 cm in diameter, appears to be well healing General: Yes full ROM and Yes no pedal edema Psych: Appearance: grossly normal Mental Status: mental status grossly normal Speech and movement: Normal speech and movement present Affect: normal affect Thought process: Normal thought process present Results Labs CBC and Chem 7: 04/16/21 15:59 04/16/21 15:59 Labs: Laboratory Results - last 24 hr 04/16/21 04/16/21 04/16/21 15:59 15:59 15:59 MCV 82.8 MCH 27.0 MCHC 32.6 RDW 14.6 Plt Count 251 MPV 10.5 Immature Gran % (Auto) 0.5 H Neut % (Auto) 63.2 Lymph % (Auto) 21.1 [place] % (Auto) 9.8 Eos % (Auto) 4.6 H Baso % (Auto) 0.8 Lymph # (Auto) 2.3 [place] # (Auto) 1.1 Eos # (Auto) 0.5 H Baso # (Auto) 0.1 Abs Immat Gran (auto) 0.06 H Absolute Neuts (auto) 6.9 Absolute Nucleated RBC 0.000 Nucleated RBC % (auto) 0.0 Anion Gap 16 Estim Creat Clear Calc 95.5 Estimated GFR > 60 Random Glucose 199 H Lactic Acid 1.3 Calcium 9.8 Imaging Radiologist's Impressions: Impressions Foot X-Ray 04/16/21 21:03 IMPRESSION: No acute abnormality of the foot. No radiographic evidence for osteomyelitis. Assessment and Plan (1) Diabetic foot ulcer: Qualifiers: Diabetic foot ulcer location: heel Laterality: left Status: Acute (2) PAD (peripheral artery disease): Status: Acute (3) Type 2 diabetes mellitus with diabetic polyneuropathy: Qualifiers: Diabetes mellitus intermediate designer insulin use: with jail use Qualified Code(s): E11.42 - Type 2 diabetes mellitus with diabetic polyneuropathy; Z79.4 - halfway (current) use of insulin Status: Acute (4) Hyperlipidemia: Qualifiers: Hyperlipidemia type: pure hypercholesterolemia Qualified Code(s): E78.00 - Pure hypercholesterolemia, unspecified Status: Acute (5) Essential hypertension: Status: Acute (6) CAD (coronary artery disease): Status: Acute Diabetic foot ulcer: -patient endorses that he has been dealing with a left heel and right great toe diabetic foot ulcer for the past 2-3 months, but in particular his left heel ulcer has been getting worse over the past 24 hours, with increased swelling, pain, and yellow drainage -patient states he follows with [facility] - associated wound care clinic, and that he saw his social security specialist yesterday, was prescribed an antibiotic, took 1 dose, but because of worsening symptoms came to the ED today -x-ray of the left foot was negative for obvious signs of osteomyelitis -wound care consult placed; will defer to Wound Care if patient needs General surgery consult for debridement -continue IV vancomycin (started in the ED) -ordered IV ceftriaxone and IV metronidazole -oral [place] for pain -morning team can consider Infectious Disease consult and/or general surgery consult Peripheral artery disease: -the patient has slow wound healing is likely complicated by his diabetes and his peripheral artery disease Diabetes mellitus type 2 with polyneuropathy: -continue home Lantus 12 units at bedtime -ordered insulin sliding scale with blood sugar checks Hyperlipidemia: -continue home medications Hypertension: -continue home medications CAD: -continue home medications FEN: Cardiac diet CODE STATUS: FULL CODE DISPO: Admit to Observation Quality Stroke Does the patient have a stroke diagnosis?: No VTE Prior VTE?: No VTE Risk Level:: Medical - low VTE Device Contraindication: Procedure Contraindicated VTE Drug Contraindication: N/A - Med Ordered
[2021-04-16] MEDS: vancomycin HCL 1,000 MG in 0.9 % Sodium Chloride 250 ML 270 MG IV (23:16)
[2021-04-16] MEDS: Piperacillin Sodium/Tazobactam 3.375 GM in 0.9 % Sodium Chloride 50 ML IV (23:17)
[2021-04-17] VITALS (8 sets, daily range): BP systolic 111–171; BP diastolic 58–81; PULSE 62–83; RESP 14–18; TEMP 36.1–37; O2SAT 97–100; BMI 31.5
[2021-04-17] MEDS: HYDROcodone Bit/Acetam 5/325 TABLET 1 TAB PO ×3 (00:50→15:43)
[2021-04-17 06:27] LABS: MANUAL DIFF FLAG NO
[2021-04-17 06:53] LABS: COVID-19 Test Negative (Negative)
[2021-04-17 07:00] LABS: Anion Gap 11 (12-20); Blood Urea Nitrogen 17 mg/dL (9-16); Calcium 9.3 mg/dL (8.4-10.2); Carbon Dioxide 27 mmol/L (22-29); Chloride 106 mmol/L (96-108); Creatinine Clr Calc Pharmacy 114.6; Estimated Glomerular Filt Rate > 60; Glucose Random 141 mg/dL (60-115); Potassium 4.4 mmol/L (3.3-5.1); Sodium 140 mmol/L (135-145)
[2021-04-17 07:01] LABS: Basophils Absolute Auto 0.1 X10*3/uL (0.0-0.2); Basophils Percent Auto 0.8 % (0-2); Eosinophils Absolute Auto 0.6 X10*3/uL (0.0-0.4); Eosinophils Percent Auto 6.4 % (0-4); Hematocrit 41.8 % (42-52); Hemoglobin 13.4 g/dl (14.0-18.0); Imm Gran Abs Auto 0.07 X10*3/uL (0.00-0.03); Imm Gran Pct Auto 0.8 % (0.0-0.4); Lymphocytes Percent Auto 21.4 % (20-40); Mean Corpuscular HGB Conc 32.1 g/dl (31.0-36.0); Mean Corpuscular Volume 84.3 fL (80-98); Mean Platelet Volume 10.5 fL (9.4-12.4); Monocytes Percent Auto 10.6 % (2-11); Neutrophils Absolute Auto 5.5 X10*3/uL (2.0-8.3); Platelet Count 215 X10*3/uL (160-400); Red Blood Count 4.96 X10*6/uL (4.60-5.80); Red Cell Distribution Width 14.7 % (11.0-16.0); White Blood Count 9.2 X10*3/uL (4.8-10.8)
[2021-04-17 07:21] LABS: Glucose, Whole Blood 135 mg/dL (60-115)
[2021-04-17] MEDS: Gabapentin 600 MG TABLET PO ×3 (08:04→21:25)
[2021-04-17] MEDS: Aspirin 81 MG TAB.CHEW PO (08:04)
[2021-04-17] MEDS: Metoprolol Succinate ER 50 MG TAB.ER.24H PO (08:05)
[2021-04-17] MEDS: metroNIDAZOLE/NS 500 MG/100 ML PIGGYBACK 100 MG IV (08:05)
[2021-04-17] MEDS: Ticagrelor 90 MG TABLET PO ×2 (08:05→21:25)
[2021-04-17] MEDS: 0.9 % Sodium Chloride Flush 3 ML SYRINGE IVFLUSH ×3 (08:10→21:26)
[2021-04-17 08:59] LABS: Erythrocyte Sedimentation Rate 40 MM/HR (0-15)
--- NOTE | 2021-04-17 09:07 | P.PNIM_ITS ---
Subjective Subjective Date of Service: 04/17/21 Interval History: seen and examined this AM, boarding in the ED he reports heel pain denies other complaints Review of Systems General - no fevers or chills Cardiovascular - no chest pain Respiratory - no shortness of breath or cough Abdominal- no abdominal pain, nausea, vomiting, diarrhea Physical Exam Vital Signs: Vital Signs: Last Vital Signs Temp 97.2 F 04/17/21 03:30 Pulse 66 04/17/21 08:05 Resp 16 04/17/21 03:30 BP 130/75 04/17/21 08:05 Pulse Ox 98 04/17/21 03:30 Body Mass Index 31.8 Const: Other: General - no acute distress, appears comfortable Cardiovascular - regular rate and rhythm, S1-S2 Lungs - normal respiratory effort, clear to auscultation bilaterally, no wheezing Abdomen - soft, nontender, no rebound or guarding Extremities - no edema bilaterally Neuro - awake and alert, no focal deficits Skin - see pictures below Skin: Other: Objective Data Current Medications Generic Name Dose Route Start Last Admin Trade Name Alyssa PRN Reason Stop Dose Admin Acetaminophen 650 mg 04/16/21 22:32 Acetaminophen 325 Mg Tablet PO Q6H PRN Pain, Mild (Pain Scale 1-3) Hydrocodone Bitart/Acetaminophen 1 tab 04/16/21 22:32 04/17/21 05:23 Hydrocodone Bit/Acetam 5/325 Tablet PO 1 tab Q4H PRN Administration Pain, Moderate (Pain Scale 4-6 Aspirin 81 mg 04/17/21 09:00 04/17/21 08:04 Aspirin 81 Mg Tab.Chew PO 81 mg DAILY SHELLY Administration Atorvastatin Calcium 20 mg 04/17/21 21:00 Atorvastatin Calcium 20 Mg Tablet PO BEDTIME SHELLY Dextrose 25 gm 04/16/21 22:57 Dextrose 50 % 25 Gm/50 Ml Vial IVPUSH Q15M PRN per Hypoglycemia Standing Ord. Protocol Enoxaparin Sodium 40 mg 04/16/21 22:45 04/17/21 07:21 Enoxaparin Sodium 40 Mg/0.4 Ml Syringe SUBCUT Not Given Q24H SHELLY Gabapentin 600 mg 04/17/21 09:00 04/17/21 08:04 Gabapentin 600 Mg Tablet PO 600 mg TID SHELLY Administration Glucose 15 gm 04/16/21 22:57 Glucose Gel 15 Gm Gel..Gram. PO Q15M PRN per Hypoglycemia Standing Ord. Protocol Vancomycin HCl 1,000 mg/ 270 mls @ 270 mls/hr 04/17/21 08:00 Sodium Chloride IV Q12H [facility] Ceftriaxone Sodium 1 gm/ 50 mls @ 100 mls/hr 04/16/21 23:00 04/17/21 07:22 Sodium Chloride IV Not Given Q24H [facility] Metronidazole 500 mg in 100 mls @ 100 mls/hr 04/16/21 23:00 04/17/21 08:05 Flagyl IV 100 mls/hr Q8H SHELLY Administration Insulin Glargine 12 unit 04/16/21 23:00 04/17/21 07:22 Insulin Glargine,Hum.Rec.Anlog 100 Unit/Ml 10 Ml Vial SUBCUT Not Given BEDTIME [facility] Insulin Human Lispro 0 unit 04/17/21 07:30 04/17/21 08:02 Insulin Lispro 100 Unit/Ml 3 Ml Vial SUBCUT Not Given QIDACHS [facility] Protocol Metoprolol Succinate 50 mg 04/17/21 09:00 04/17/21 08:05 Metoprolol Succinate Er 50 Mg Tab.Er.24h PO 50 mg DAILY [facility] Administration Protocol Oxycodone HCl 10 mg 04/17/21 05:58 Oxycodone Hcl Immed Release 5 Mg Tablet PO Q6H PRN pain Pharmacy Consult 1 each 04/16/21 21:05 Consult Rx Vancomycin Dosing MISCELLANE DAILY PRN Consult order Pharmacy Consult 1 each 04/16/21 22:35 Consult Rx Vancomycin Dosing MISCELLANE DAILY PRN Consult order Sodium Chloride 3 ml 04/17/21 00:00 04/17/21 08:10 0.9 % Sodium Chloride Flush 3 Ml Syringe IVFLUSH 3 ml QSHIFT [facility] Administration Ticagrelor 90 mg 04/17/21 09:00 04/17/21 08:05 Ticagrelor 90 Mg Tablet PO 90 mg BID [facility] Administration Labs CBC & Chem 7: 04/17/21 06:17 04/17/21 06:17 Labs: Laboratory Results - last 24 hr 04/16/21 04/16/21 04/16/21 15:59 15:59 15:59 MCV 82.8 MCH 27.0 MCHC 32.6 RDW 14.6 Plt Count 251 MPV 10.5 Immature Gran % (Auto) 0.5 H Neut % (Auto) 63.2 Lymph % (Auto) 21.1 [place] % (Auto) 9.8 Eos % (Auto) 4.6 H Baso % (Auto) 0.8 Lymph # (Auto) 2.3 [place] # (Auto) 1.1 Eos # (Auto) 0.5 H Baso # (Auto) 0.1 Abs Immat Gran (auto) 0.06 H Absolute Neuts (auto) 6.9 Absolute Nucleated RBC 0.000 Nucleated RBC % (auto) 0.0 ESR Anion Gap 16 Estim Creat Clear Calc 95.5 Estimated GFR > 60 POC Glucose Random Glucose 199 H Lactic Acid 1.3 Calcium 9.8 COVID-19 ([place]) COVID-QobliQ Group 04/17/21 04/17/21 04/17/21 06:17 06:17 06:17 MCV 84.3 MCH 27.0 MCHC 32.1 RDW 14.7 Plt Count 215 MPV 10.5 Immature Gran % (Auto) 0.8 H Neut % (Auto) 60.0 Lymph % (Auto) 21.4 [place] % (Auto) 10.6 Eos % (Auto) 6.4 H Baso % (Auto) 0.8 Lymph # (Auto) 2.0 [place] # (Auto) 1.0 Eos # (Auto) 0.6 H Baso # (Auto) 0.1 Abs Immat Gran (auto) 0.07 H Absolute Neuts (auto) 5.5 Absolute Nucleated RBC 0.000 Nucleated RBC % (auto) 0.0 ESR 40 H Anion Gap 11 L Estim Creat Clear Calc 114.6 Estimated GFR > 60 POC Glucose Random Glucose 141 H Lactic Acid Calcium 9.3 COVID-19 ([place]) COVID-ProPlan Com 04/17/21 04/17/21 06:20 07:18 MCV MCH MCHC RDW Plt Count MPV Immature Gran % (Auto) Neut % (Auto) Lymph % (Auto) [place] % (Auto) Eos % (Auto) Baso % (Auto) Lymph # (Auto) [place] # (Auto) Eos # (Auto) Baso # (Auto) Abs Immat Gran (auto) Absolute Neuts (auto) Absolute Nucleated RBC Nucleated RBC % (auto) ESR Anion Gap Estim Creat Clear Calc Estimated GFR POC Glucose 135 H Random Glucose Lactic Acid Calcium COVID-19 ([place]) Negative COVID-19 Clin Com See Note Assessment and Plan (1) Diabetic foot ulcer: Status: Acute Assessment and Plan: This is a 55 yo M with a PMH DM, polyneuropathy, PAD, diabetic ulcer, CAD, HTN, HLD who presents to the hospital for LLE heel pain, redness and drainage from the L heel. He is admitted for further work up 1. Non-healing L calcaneal ucler secondary to PAD + DM continue vancomcyin, add zosyn his ESR is slightly increased from last admission; his MR last month was negative; will await ID input to see if further imaging needed had a recent vascular procedure -- will ask Dr. Sheppard to see him Monday if patient remains in the hospital, otherwise f/u with Dr. Sheppard in his clinic 2. DM continue lantus + sliding scale 3. PAD/CAD continue asa + brillinta continue baseline meds 4. HTN home meds Full Code DVT pptx, lovenox Quality Stroke Does the patient have a stroke diagnosis?: No VTE Prior VTE?: No VTE Risk Level:: Medical - low VTE Device Contraindication: Procedure Contraindicated VTE Drug Contraindication: N/A - Med Ordered
[2021-04-17] MEDS: vancomycin HCL 1,000 MG in 0.9 % Sodium Chloride 250 ML 270 MG IV ×2 (09:14→20:11)
[2021-04-17] MEDS: Piperacillin Sodium/Tazobactam 3.375 GM in 0.9 % Sodium Chloride 50 ML IV ×3 (10:57→21:26)
[2021-04-17 11:29] LABS: Glucose, Whole Blood 170 mg/dL (60-115)
[2021-04-17 13:03] LABS: Glucose, Whole Blood 148 mg/dL (60-115)
[2021-04-17 16:49] LABS: Glucose, Whole Blood 176 mg/dL (60-115)
[2021-04-17] MEDS: Insulin Lispro 100 UNIT/ML 3 ML VIAL SUBCUT ×2 (17:25→21:25)
[2021-04-17] MEDS: oxyCODONE HCl Immed Release 5 MG TABLET 10 MG PO (19:22)
[2021-04-17 20:41] LABS: Glucose, Whole Blood 177 mg/dL (60-115)
[2021-04-17] MEDS: Atorvastatin Calcium 20 MG TABLET PO (21:25)
[2021-04-17] MEDS: Melatonin 3 MG TABLET 6 MG PO (21:25)
[2021-04-17] MEDS: Insulin Glargine,Hum.rec.anlog 100 UNIT/ML 10 ML VIAL 12 UNIT SUBCUT (21:26)
[2021-04-17] MEDS: Enoxaparin Sodium 40 MG/0.4 ML SYRINGE SUBCUT (22:33)
--- NOTE | 2021-04-17 23:38 | P.CNID_ITS ---
History of Present Illness Data of Consult Service Date: 04/17/21 Requesting physician: Thong Baig Primary Care Provider: Shanta Haney MD [facility] Reason for consult: heel ulcer,left He presents with darkened heel ulcer He has no fever or chills He has discomfort Review of Systems Review of Systems: Yes all other systems are reviewed and are negative PMFSH Past Medical History Medical History Alcohol abuse Arthritis CAD (coronary artery disease) Chronic pancreatitis Diabetes mellitus with hyperglycemia, with long-term current use of insulin Essential hypertension Failure of outpatient treatment Hyperlipidemia Increased BMI Kidney calculus Type 2 diabetes mellitus with diabetic polyneuropathy Type 2 diabetes mellitus with hyperglycemia Family History Family History Mother AR (myocardial infarction), Onset Age: 64 Diabetes mellitus HTN (hypertension) Maternal Grandmother Diabetes mellitus Family history: reviewed and not pertinent Surgical History Surgical History Hx of heart artery stent Hx of lithotripsy Status post laparoscopic cholecystectomy Social History Social History Household Members: Family Household Members Other:: and daughter Housing: House Do you presently have visiting nurse or other home services: No Alcohol intake: current Alcohol intake frequency: holidays/special occasions only Patient Tobacco Use Status: Former Tobacco user Quit Date: 3 weeks ago Tobacco use type: Cigarette Cigarette Packs Per Day: 1 Cigarettes Per Day: 20.0 Years Smoked: 28 Second Hand Smoke Exposure: Yes Substance Use Type: Marijuana Advance Directives Date on File: 04/17/21 service: No Current occupational status: employed Meds Allergies Allergy/AdvReac Type Severity Reaction Status Date / Time No Known Allergies Allergy Verified 03/12/21 21:52 [No Known Allergies*] Active Medications: Current Medications Generic Name Dose Route Start Last Admin Trade Name Freq PRN Reason Stop Dose Admin Acetaminophen 650 mg 04/16/21 22:32 Acetaminophen 325 Mg Tablet PO Q6H PRN Pain, Mild (Pain Scale 1-3) Hydrocodone Bitart/Acetaminophen 1 tab 04/16/21 22:32 04/17/21 15:43 Hydrocodone Bit/Acetam 5/325 Tablet PO 1 tab Q4H PRN Administration Pain, Moderate (Pain Scale 4-6 Aspirin 81 mg 04/17/21 09:00 04/17/21 08:04 Aspirin 81 Mg Tab.Chew PO 81 mg DAILY SHELLY Administration Atorvastatin Calcium 20 mg 04/17/21 21:00 04/17/21 21:25 Atorvastatin Calcium 20 Mg Tablet PO 20 mg BEDTIME SHELLY Administration Dextrose 25 gm 04/16/21 22:57 Dextrose 50 % 25 Gm/50 Ml Vial IVPUSH Q15M PRN per Hypoglycemia Standing Ord. Protocol Enoxaparin Sodium 40 mg 04/16/21 22:45 04/17/21 22:33 Enoxaparin Sodium 40 Mg/0.4 Ml Syringe SUBCUT 40 mg Q24H SHELLY Administration Gabapentin 600 mg 04/17/21 09:00 04/17/21 21:25 Gabapentin 600 Mg Tablet PO 600 mg TID SHELLY Administration Glucose 15 gm 04/16/21 22:57 Glucose Gel 15 Gm Gel..Gram. PO Q15M PRN per Hypoglycemia Standing Ord. Protocol Vancomycin HCl 1,000 mg/ 270 mls @ 270 mls/hr 04/17/21 08:00 04/17/21 21:33 Sodium Chloride IV Infused Q12H SHELLY Infusion Piperacillin Sod/Tazobactam 50 mls @ 100 mls/hr 04/17/21 10:00 04/17/21 22:32 Sod 3.375 gm/ Sodium Chloride IV Infused Q6H SHELLY Infusion Insulin Glargine 12 unit 04/16/21 23:00 04/17/21 21:26 Insulin Glargine,Hum.Rec.Anlog 100 Unit/Ml 10 Ml Vial SUBCUT 12 unit BEDTIME SHELLY Administration Insulin Human Lispro 0 unit 04/17/21 07:30 04/17/21 21:25 Insulin Lispro 100 Unit/Ml 3 Ml Vial SUBCUT 2 unit QIDACHS SHELLY Administration Protocol Melatonin 6 mg 04/17/21 20:59 04/17/21 21:25 Melatonin 3 Mg Tablet PO 6 mg BEDTIME PRN Administration insomnia Metoprolol Succinate 50 mg 04/17/21 09:00 04/17/21 08:05 Metoprolol Succinate Er 50 Mg Tab.Er.24h PO 50 mg DAILY SHELLY Administration Protocol Oxycodone HCl 10 mg 04/17/21 05:58 04/17/21 19:22 Oxycodone Hcl Immed Release 5 Mg Tablet PO 10 mg Q6H PRN Administration pain Pharmacy Consult 1 each 04/16/21 21:05 Consult Rx Vancomycin Dosing MISCELLANE DAILY PRN Consult order Pharmacy Consult 1 each 04/16/21 22:35 Consult Rx Vancomycin Dosing MISCELLANE DAILY PRN Consult order Sodium Chloride 3 ml 04/17/21 00:00 04/17/21 21:26 0.9 % Sodium Chloride Flush 3 Ml Syringe IVFLUSH 3 ml QSHIFT SHELLY Administration Ticagrelor 90 mg 04/17/21 09:00 04/17/21 21:25 Ticagrelor 90 Mg Tablet PO 90 mg BID SHELLY Administration Home Medications Medication Instructions Recorded Confirmed Last Taken Type empagliflozin 25 mg tablet 1 tab PO QAM 03/13/21 04/17/21 03/23/21 History (Jardiance) insulin glargine 100 unit/mL (3 22 unit SUBCUT QPM 03/13/21 04/16/21 03/23/21 History mL) subcutaneous pen (Lantus Solostar U-100 Insulin) metoprolol succinate 50 mg 1 tab PO DAILY 03/13/21 04/17/21 03/23/21 History tablet,extended release 24 hr ticagrelor 90 mg tablet (Brilinta) 1 tab PO BID 03/13/21 04/17/21 03/23/21 History aspirin 81 mg chewable tablet 81 mg PO DAILY 03/24/21 04/17/21 03/23/21 History atorvastatin 20 mg tablet 1 tab PO BEDTIME 03/24/21 04/17/21 03/23/21 History insulin lispro 100 unit/mL 17 unit SUBCUT BIDAC 03/24/21 04/16/21 03/23/21 History subcutaneous pen (Humalog KwikPen (U-100) Insulin) Physical Exam Vital Signs: Vital Signs: Last Vital Signs Temp 97.8 F 04/17/21 19:13 Pulse 67 04/17/21 19:13 Resp 18 04/17/21 19:13 BP 139/65 04/17/21 19:13 Pulse Ox 97 04/17/21 19:13 Body Mass Index 31.5 Const: General: cooperative HENMT: Head: Yes normal to inspection Mouth: Normal oral and palatal mucosa present Eyes: General: appearance normal, both eyes and all related structures Resp: Effort & Inspection: normal respiratory effort Cardio: Rate: regular rate Rhythm: regular rhythm GI: Inspection: Yes normal to inspection Extrem: Other: neuropathy with dark eschar heel Results Labs CBC & Chem 7: 04/17/21 06:17 04/17/21 06:17 Labs: Short CBC 04/17/21 Range/Units 06:17 WBC 9.2 (4.8-10.8) X10*3/uL Hgb 13.4 L (14.0-18.0) g/dl Hct 41.8 L (42-52) % Plt Count 215 (160-400) X10*3/uL BMP 04/17/21 06:17 Sodium 140 Potassium 4.4 Chloride 106 Carbon Dioxide 27 BUN 17 H Creatinine 0.85 Calcium 9.3 Microbiology Microbiology Results: Microbiology 04/16/21 15:59 Blood - Venous Blood Culture - Preliminary No growth after 24 hours. 04/16/21 15:59 Blood - Venous Blood Culture - Preliminary No growth after 24 hours. Assessment and Plan (1) Diabetic foot ulcer: Qualifiers: Diabetic foot ulcer location: heel Laterality: left Status: Acute This seems like pressure ulcer There is no active evidence of osteomyelitis at this time Would discharge on po Doxycycline for cellulitis for 10 days (2) PAD (peripheral artery disease): Status: Acute (3) Non-healing ulcer of foot: Status: Acute
[2021-04-18 03:32] VITALS: BP 115/72; PULSE 60; RESP 16; TEMP 36.4; O2SAT 99
[2021-04-18] MEDS: oxyCODONE HCl Immed Release 5 MG TABLET 10 MG PO ×2 (03:35→09:20)
[2021-04-18] MEDS: Piperacillin Sodium/Tazobactam 3.375 GM in 0.9 % Sodium Chloride 50 ML IV (03:35)
[2021-04-18 07:38] LABS: Vancomycin Trough 7.8 mcg/mL (10.0-20.0)
[2021-04-18 07:42] LABS: Glucose, Whole Blood 147 mg/dL (60-115)
[2021-04-18 07:49] VITALS: BP 170/81; PULSE 65; RESP 18; TEMP 36.3; O2SAT 99
[2021-04-18] MEDS: Gabapentin 600 MG TABLET PO (09:15)
[2021-04-18] MEDS: vancomycin HCL 1,250 MG in 0.9 % Sodium Chloride 250 ML 166.67 MG IV (09:15)
[2021-04-18] MEDS: Aspirin 81 MG TAB.CHEW PO (09:16)
[2021-04-18] MEDS: Metoprolol Succinate ER 50 MG TAB.ER.24H PO (09:16)
[2021-04-18] MEDS: Ticagrelor 90 MG TABLET PO (09:16)
[2021-04-18] MEDS: 0.9 % Sodium Chloride Flush 3 ML SYRINGE IVFLUSH (09:23)
--- NOTE | 2021-04-18 09:33 | PM.DS ---
DS: Providers Provider Date of Service: 04/18/21 Date of admission: 04/16/21 22:32 Primary care physician: Shanta Haney MD Consults: 04/16/21 22:34 Consult to Wound Care Routine Consulting Provider: [facility] [place] Wound Care Management Reason for consultation: Left heel diabetic ulcer infection - please assess, ? need surg consult? Has provider been notified: No 04/17/21 09:07 Consult to Infectious Diseases Routine Consulting Provider: Fannie Stoner Reason for consultation: diabetic ulcer 04/17/21 18:36 Consult to General Surgery Routine Consulting Provider: Martha Sam Reason for consultation: wound care DS: Diagnosis Discharge Diagnosis (1) Diabetic foot ulcer: Status: Acute (2) PAD (peripheral artery disease): Status: Acute (3) Non-healing ulcer of foot: Status: Acute DS: Summary Hospital Course Hospital Course: History of presenting illness Chief Complaint: Left heel ulcer worsening 55-year-old male with history of diabetes mellitus, polyneuropathy, peripheral artery disease, chronic diabetic ulcers (with slow healing), CAD, hypertension, hyperlipidemia, arthritis, who presented with increased pain and swelling of his left heel chronic ulcer.? History is from patient and from ED notes. Patient endorsed that he has been dealing with chronic foot ulcers for about 2-3 months now, complicated in part by his poor circulation.? He visits the wound care clinic that is associated with this hospital.? Yesterday, he went to the Wound Care Clinic, and was prescribed an antibiotic; he states he was able to take a dose, but today he felt like his left heel ulcer is more painful, with surrounding swelling and also some yellow drainage, therefore he came to the ED.? he states that he has been on antibiotic treatments for this ulcer in the past as well.? Otherwise, he denies systemic symptoms including fever, chills, nausea, vomiting, chest pain, shortness of breath, diarrhea, abdominal pain. In the ED, vitals and labs were unremarkable with the exception of WBC of 11 and a glucose of 199. Left foot x-ray was negative for obvious signs of osteomyelitis. ED physician treated the patient with IV vancomycin and IV Zosyn as well as ketorolac for pain.? The patient is being admitted for left heel infected diabetic ulcer that possibly failed outpatient antibiotic therapy. Hospital course 55 yo M with a PMH DM, polyneuropathy, PAD, diabetic ulcer, CAD, HTN, HLD who presents to the hospital for LLE heel pain, redness and drainage from the L heel, patient admitted with a diagnosis of. Non-healing L calcaneal ucler secondary to PAD + DM patient treated with IV vanco and Zosyn, no imaging study was repeated since MR from last month showed no osteo, patient seen by Dr. Stoner from Infectious Disease, she recommended doxycycline by mouth for 10 days, patient is recommended to follow up with Dr. Sheppard as outpatient, since he had a recent vascular procedure and to continue aspirin and Brilinta In regard to diabetes he has been recommended home insulin and diabetic diet Time Spent with Patient Time attestation: Total time spent providing and/or coordinating discharge services: Discharge coordination time: Greater than 30 minutes Quality: Stroke Does the patient have a stroke diagnosis?: No Physical Exam Vital Signs: Vital Signs: Last Vital Signs Temp 97.4 F 04/18/21 07:49 Pulse 65 04/18/21 07:49 Resp 18 04/18/21 07:49 BP 170/81 H 04/18/21 07:49 Pulse Ox 99 04/18/21 07:49 Body Mass Index 31.5 General - no acute distress, appears comfortable Cardiovascular - regular rate and rhythm, S1-S2 Lungs - normal respiratory effort, clear to auscultation bilaterally, no wheezing Abdomen - soft, nontender, no rebound or guarding Extremities - right lower extremity no edema Neuro - awake and alert, no focal deficits Left heel open ulcer no drainage mild surrounding swelling DS: Data Data Completed and Pending Completed studies during hospitalization [Text1]: Procedures Dilation of Right Ureter with Intraluminal Device, Via Natural or Artificial Opening Endoscopic (06/21/20) Extirpation of Matter from Right Ureter, Via Natural or Artificial Opening Endoscopic (06/21/20) Fluoroscopy of Right Kidney, Ureter and Bladder (06/21/20) Labs on day of discharge: Laboratory Results - last 24 hr 04/17/21 04/17/21 04/17/21 11:26 12:57 16:21 POC Glucose 170 H 148 H 176 H Vancomycin Trough 04/17/21 04/18/21 04/18/21 20:22 06:55 07:31 POC Glucose 177 H 147 H Vancomycin Trough 7.8 L Preliminary micro results at discharge 04/16/21 15:59 Blood Culture - Preliminary Blood - Venous No growth after 24 hours. 04/16/21 15:59 Blood Culture - Preliminary Blood - Venous No growth after 24 hours. Discharge Plan Discharge Patient Disposition: Home, Self-Care Discharge Diagnosis: Nonhealing left calcaneal ulcer Referrals: Shanta Haney MD [Primary Care Provider] - 1 Week Discharge Medications: Continued metoprolol succinate 50 mg tablet extended release 24 hr 1 tab PO DAILY RF: 0 Brilinta 90 mg tablet 1 tab PO BID RF: 0 atorvastatin 20 mg tablet 1 tab PO BEDTIME RF: 0 oxycodone-acetaminophen [Percocet] 10-325 mg tablet 1 tab PO Q6H PRN (Reason: pain) Qty: 15 RF: 0 No Action (DME) Ultra-Light Rollator Misc See Rx Instructions .ROUTE .MEDSUPPLY Qty: 1 RF: 0 (DME) lancets [FreeStyle Lancets] 28 gauge misc See Rx Instructions .ROUTE .MEDSUPPLY Qty: 100 RF: 1 Jardiance 25 mg tablet 25 mg PO QAM Qty: 30 RF: 5 insulin lispro [Humalog KwikPen Insulin] 100 unit/mL insulin pen 17 unit SUBCUT BIDAC Qty: 15 RF: 5 Lantus Solostar U-100 Insulin 100 unit/mL (3 mL) insulin pen 30 unit subcut QPM RF: 0 gabapentin 600 mg tablet 600 mg PO TID Qty: 90 RF: 4 aspirin 81 mg tablet,chewable 81 mg PO DAILY Qty: 30 RF: 5 ondansetron HCl 4 mg tablet 4 mg PO Q8H PRN (Reason: nausea and vomiting) Qty: 10 RF: 0 (DME) blood-glucose meter [FreeStyle Lite Meter] Kit See Rx Instructions .ROUTE .MEDSUPPLY Qty: 1 RF: 0 (DME) FreeStyle Lite Strips Strip See Rx Instructions .ROUTE .MEDSUPPLY Qty: 100 RF: 11 (DME) lancets [FreeStyle Lancets] 28 gauge misc See Rx Instructions .ROUTE .MEDSUPPLY Qty: 100 RF: 11 (DME) pen needle, diabetic [BD Ultra-Fine Michelle Pen Needle] 32 gauge x 5/32 needle See Rx Instructions .ROUTE .MEDSUPPLY Qty: 125 RF: 6 Discharge Orders: Discharge Order (Routine); Ordered 04/18/21 Ordered By: Steve Toribio Diet: diabetic diet Activity on Discharge: As tolerated Stand Alone Forms: Patient Portal Discharge page Care Plan Goals: Take doxycycline 100 mg twice daily for 10 days Health Concerns: Diabetes mellitus/hypertension take all medication as prescribed Plan of Treatment: Outpatient follow-up with primary care physician and Dr. Sheppard Assessment: As above Discharge Date/Time: 04/18/21 11:41
--- NOTE | 2021-04-18 10:27 | MHC.CM.PN ---
PT CLEARED TO DC HOME TODAY WITH NO SERVICES
--- NOTE | 2021-04-18 11:08 | MHC.CM.PN ---
CM EMT WITH PT WHO REPORTS HE IS INDEPENDENT AND USES NO DME AT BASELINE HOWEVER HE HAS BEEN USING CRUTCHES RELATED TO CURRENT CONDITION. PT DOES NOT HAVE HOME OR COMMUNITY SERVICES. DRIVES AND IS EMPLOYED. PT CONFIRMS ARYA SANCHES IS HIS PCP AND HE HAS A HCP ON FILE. OBS NOTICE WAS DELIVERED PT CLEARED TO DC HOME TODAY WITH NO SERVICES CAR IS IN LOT, PT WILL DRIVE HIMSELF HOME
== END 2021-04-18 11:41 | disposition home or self-care (01) ==
LOC: HO.ED 21:17 → HO.EDOVER 22:54 → HO.S3 04-17 14:55
PROVIDERS: Family Medicine; Admitting Provider Internal Medicine; Emergency Provider Emergency Medicine; PCP Internal Medicine; Visit Provider Hospitalist
DX: E11.621 Type 2 diabetes mellitus with foot ulcer (principal); E11.65 Type 2 diabetes mellitus with hyperglycemia; E11.42 Type 2 diabetes mellitus with diabetic polyneuropathy; L97.429 Non-pressure chronic ulcer of left heel and midfoot with unspecified severity; I73.9 Peripheral vascular disease, unspecified; I25.10 Atherosclerotic heart disease of native coronary artery without angina pectoris; I10 Essential (primary) hypertension; E78.5 Hyperlipidemia, unspecified; Z79.4 Long term (current) use of insulin; Z79.82 Long term (current) use of aspirin; Z79.891 Long term (current) use of opiate analgesic; Z79.899 Other long term (current) drug therapy; Z53.29 Procedure and treatment not carried out because of patient's decision for other reasons
CPT/HCPCS: 36415; 73620; 80048; 80202; 82947; 83605; 85025; 85652; 87040; 87635; 96365; 96366; 96367; 96372; 96375; 99218; 99220; 99285; J1650; J1885; J2543; J3370

== ENCOUNTER → 2021-04-29 11:14 | Outpatient (BNVA) | payer OTHER, SELFPAY | PROVIDERS: PCP Internal Medicine; Visit Provider Surgery Vascular Surgery | DX: I73.9 Peripheral vascular disease, unspecified (principal) | CPT/HCPCS: 99212 ==

== ENCOUNTER 2021-05-07 17:55 | Emergency (ER) | payer OTHER, SELFPAY ==
--- NOTE | ~2021-05-07 | XR_ITS ---
EXAMINATION: XR FOOT, LEFT CLINICAL INFORMATION: Ulceration with eschar. Pain. COMPARISON: 04/16/2021 TECHNIQUE: AP, lateral, and oblique views of the left foot. FINDINGS: Soft tissue irregularity overlies the calcaneus. No osseous erosion. No fracture. No dislocation. Small heel spurs are again noted. Diffuse vascular calcifications. Soft tissue swelling of the foot. XR/XR foot LT min 3V IMPRESSION: Ulceration overlying the calcaneus with no underlying osseous changes to suggest osteomyelitis.
--- NOTE | ~2021-05-07 | US_ITS ---
EXAMINATION: US VENOUS ULTRASOUND WITH DOPPLER LOWER EXTREMITY, LEFT CLINICAL INFORMATION: Left lower extremity pain. Swelling. COMPARISON: None TECHNIQUE: Ultrasound of the deep veins is performed from the hip to the calf with compression sonography and color and pulse Doppler assessment. Spectral analysis with color-flow imaging is performed. FINDINGS: There is normal venous compression and respiratory variation and augmented flow. The visualized common femoral vein, superficial femoral vein, profunda femoral vein, popliteal vein, and the trifurcation region shows no evidence of deep venous thrombosis. There is no significant popliteal fossa cyst. If the patient's symptoms persist, followup ultrasound in 5 days 7 days might be of value to exclude proximal propagation from a non-visualized calf vein. US/US venous duplex LE IMPRESSION: No DVT demonstrated in the left lower extremity.
[2021-05-07 18:34] VITALS: BP 148/77; PULSE 87; RESP 16; TEMP 36.9; O2SAT 98; BMI 32.3
[2021-05-07 20:12] LABS: MANUAL DIFF FLAG NO
[2021-05-07 20:13] LABS: Basophils Absolute Auto 0.1 X10*3/uL (0.0-0.2); Basophils Percent Auto 0.9 % (0-2); Eosinophils Absolute Auto 0.7 X10*3/uL (0.0-0.4); Eosinophils Percent Auto 7.4 % (0-4); Hematocrit 43.5 % (42-52); Hemoglobin 14.1 g/dl (14.0-18.0); Imm Gran Abs Auto 0.04 X10*3/uL (0.00-0.03); Imm Gran Pct Auto 0.4 % (0.0-0.4); Lymphocytes Absolute Auto 2.7 X10*3/uL (1.2-4.9); Lymphocytes Percent Auto 28.3 % (20-40); Mean Corpuscular HGB Conc 32.4 g/dl (31.0-36.0); Mean Corpuscular Hemoglobin 27.3 pg (27.0-33.0); Mean Corpuscular Volume 84.3 fL (80-98); Mean Platelet Volume 10.1 fL (9.4-12.4); Monocytes Absolute Auto 0.8 X10*3/uL (0.1-1.2); Neutrophils Absolute Auto 5.2 X10*3/uL (2.0-8.3); Platelet Count 240 X10*3/uL (160-400); Red Blood Count 5.16 X10*6/uL (4.60-5.80); Red Cell Distribution Width 14.9 % (11.0-16.0); White Blood Count 9.5 X10*3/uL (4.8-10.8)
[2021-05-07 20:24] LABS: Anion Gap 13 (12-20); Blood Urea Nitrogen 20 mg/dL (9-16); Calcium 9.8 mg/dL (8.4-10.2); Carbon Dioxide 24 mmol/L (22-29); Chloride 107 mmol/L (96-108); Creatinine Clr Calc Pharmacy 102.2; Estimated Glomerular Filt Rate > 60; Glucose Random 213 mg/dL (60-115); Potassium 4.3 mmol/L (3.3-5.1); Sodium 140 mmol/L (135-145)
[2021-05-07 21:57] VITALS: BP 163/84; PULSE 70; RESP 20; TEMP 36.4; O2SAT 99
--- NOTE | 2021-05-07 23:04 | ED.LOWEXIN ---
HPI - Extremity Injury (Lower) General Chief Complaint: Extremity Injury, Lower Stated Complaint: ulcers on feet Time Seen by Provider: 05/07/21 21:46 Source: patient Mode of arrival: ambulatory Limitations: no limitations History of Present Illness HPI Narrative: 55-year-old male presents with left foot pain. Has chronic left heel ulceration and right great toe ulceration that is being treated by Wound Care. Stated that he missed his last wound care appointment and was is not able to get another appointment for a month. He does report left foot pain and calf pain along with some swelling. MD complaint: leg injury and foot injury Onset (ago): month(s) Severity: severe Severity scale (1-10): 9 Relieving factors: nothing Exacerbating factors: weight bearing, movement and palpation Context: other (Chronic) Treatments prior to arrival: NSAIDS Related Data Home Medications Medication Instructions Recorded Confirmed metoprolol succinate 50 mg 1 tab PO DAILY 03/13/21 05/06/21 tablet,extended release 24 hr ticagrelor 90 mg tablet (Brilinta) 1 tab PO BID 03/13/21 05/06/21 atorvastatin 20 mg tablet 1 tab PO BEDTIME 03/24/21 05/06/21 insulin glargine 100 unit/mL (3 30 unit SUBCUT QPM ml 05/06/21 05/06/21 mL) subcutaneous pen (Lantus Solostar U-100 Insulin) Previous Rx's Medication Instructions Recorded walker (Ultra-Light Rollator) #1 ea 09/14/20 lancets 28 gauge (FreeStyle #100 ea 01/04/21 Lancets) blood sugar diagnostic (FreeStyle #100 ea 01/07/21 Lite Strips) blood-glucose meter (FreeStyle #1 ea 01/07/21 Lite Meter) lancets 28 gauge (FreeStyle #100 ea 01/07/21 Lancets) pen needle, diabetic 32 gauge x #125 ea 01/07/21 (BD Ultra-Fine Michelle Pen Needle) oxycodone-acetaminophen 10 mg-325 1 tab PO Q6H PRN #15 tab 04/15/21 mg tablet (Percocet) aspirin 81 mg chewable tablet 81 mg PO DAILY #30 tab 05/06/21 empagliflozin 25 mg tablet 25 mg PO QAM #30 tab 05/06/21 (Jardiance) gabapentin 600 mg tablet 600 mg PO TID #90 tab 05/06/21 insulin lispro 100 unit/mL 17 unit SUBCUT BIDAC #15 ml 05/06/21 subcutaneous pen (Humalog KwikPen (U-100) Insulin) ondansetron HCl 4 mg tablet 4 mg PO Q8H PRN #10 tab 05/06/21 Allergies Allergy/AdvReac Type Severity Reaction Status Date / Time No Known Allergies Allergy Verified 05/06/21 10:45 [No Known Allergies*] Review of Systems Review of Systems: Constitutional: No Fever, No Chills ENT/Mouth: No Ear Pain, No Hoarseness, No sore throat Eyes: No Eye Pain, No Swelling, No Redness, No Foreign Body Cardiovascular: No Chest Pain, No SOB Respiratory: No Cough, No Dyspnea Gastrointestinal: No Nausea, No Vomiting, No Diarrhea, No abdominal Pain Genitourinary: No Dysuria, No Hematuria Musculoskeletal: positive left foot and calf pain, No Myalgias, No Joint Swelling Skin: No Skin lacerations, No rash Neuro: No Weakness, No Numbness, No Paresthesias, No Loss of Consciousness, No Dizziness, No Headache Psych: No Anxiety/Panic, No Depression Heme/Lymph: no easy bruising, no Lymphadenopathy Endocrine: No Polyuria, No Polydipsia Yes all other systems are reviewed and are negative [facility] Past Medical History Attestation statement: The following information was validated with the patient. Source: old records reviewed Medical History Alcohol abuse Arthritis CAD (coronary artery disease) Chronic pancreatitis Diabetes mellitus with hyperglycemia, with long-term current use of insulin Essential hypertension Failure of outpatient treatment Hyperlipidemia Increased BMI Kidney calculus Type 2 diabetes mellitus with diabetic polyneuropathy Type 2 diabetes mellitus with hyperglycemia Surgical History Hx of heart artery stent Hx of lithotripsy Status post laparoscopic cholecystectomy Family History Family History Mother [place] (myocardial infarction), Onset Age: 64 Diabetes mellitus HTN (hypertension) Maternal Grandmother Diabetes mellitus Social History Social History Household Members: Family Household Members Other:: and daughter Housing: House Do you presently have visiting nurse or other home services: No Alcohol intake: current Alcohol intake frequency: holidays/special occasions only Patient Tobacco Use Status: Former Tobacco user Quit Date: 3 weeks ago Tobacco use type: Cigarette Cigarette Packs Per Day: 1 Cigarettes Per Day: 20.0 Years Smoked: 28 Second Hand Smoke Exposure: Yes Substance Use Type: Marijuana Advance Directives: Yes Advance Directives on File: Yes Advance Directives Date on File: 04/17/21 service: No Current occupational status: employed Physical Exam Vital Signs: Vital Signs: Last Vital Signs Temp 97.6 F 05/07/21 21:57 Pulse 70 05/07/21 21:57 Resp 20 05/07/21 21:57 BP 163/84 H 05/07/21 21:57 Pulse Ox 99 05/07/21 21:57 Body Mass Index 32.3 Appearance: Alert. Oriented X3. Moderate distress. Eyes: Pupils equal, round and reactive to light. Sclera nonicteric. ENT: Pharynx normal. Moist mucous membranes. Neck: Normal inspection. Neck supple. CVS: Normal heart rate and rhythm. Pulses normal. Respiratory: No respiratory distress. Breath sounds normal. Abdomen: Soft and nontender. Skin: With the exception of his chronic wounds, Skin warm and dry. Normal skin color. Normal skin turgor. Extremities: No lower extremity edema. Unstageable diabetic ulcer to the left heel approximately 5 cm in diameter with eschar, pitting edema noted, unstageable diabetic ulcer to the right great toe. Neuro: No motor deficit. No sensory deficit. Cranial nerves 2-12 intact. Course Course Course Narrative: 55-year-old male presents with chronic ulcers and foot pain. States that he has been taking NSAIDs with poor effect. Missed his last wound care appointment and is unable to obtain another 1 for about a month. Will order labs to rule out infection, duplex to rule out DVT, x-rays to rule out osteo. Labs and x-rays are unremarkable, duplex is negative. Will treat with oxycodone p.o., patient does understand that he must follow up with primary care physician and/or pain management for prescription. Patient verbalized understanding of and agrees plan of care discharge home. MDM - Extremity Injury (Lower) MDM Narrative Medical decision making narrative: Osteomyelitis, chronic wounds, DVT Medical Records Attestation: I reviewed the patient's medical records. Lab Data Attestation: I reviewed the patient's lab results. Result diagrams: 05/07/21 20:00 05/07/21 20:00 Labs: Lab Results 05/07/21 05/07/21 Range/Units 20:00 20:00 WBC 9.5 (4.8-10.8) X10*3/uL RBC 5.16 (4.60-5.80) X10*6/uL Hgb 14.1 (14.0-18.0) g/dl Hct 43.5 (42-52) % MCV 84.3 (80-98) fL MCH 27.3 (27.0-33.0) pg MCHC 32.4 (31.0-36.0) g/dl RDW 14.9 (11.0-16.0) % Plt Count 240 (160-400) X10*3/uL MPV 10.1 (9.4-12.4) fL Immature Gran % (Auto) 0.4 (0.0-0.4) % Neut % (Auto) 55.0 (45-73) % Lymph % (Auto) 28.3 (20-40) % Dade % (Auto) 8.0 (2-11) % Eos % (Auto) 7.4 H (0-4) % Baso % (Auto) 0.9 (0-2) % Lymph # (Auto) 2.7 (1.2-4.9) X10*3/uL Dade # (Auto) 0.8 (0.1-1.2) X10*3/uL Eos # (Auto) 0.7 H (0.0-0.4) X10*3/uL Baso # (Auto) 0.1 (0.0-0.2) X10*3/uL Abs Immat Gran (auto) 0.04 H (0.00-0.03) X10*3/uL Absolute Neuts (auto) 5.2 (2.0-8.3) X10*3/uL Absolute Nucleated RBC 0.000 (0.0-0.012) X10*3/uL Nucleated RBC % (auto) 0.0 (0.0-0.2) /100WBC Sodium 140 (135-145) mmol/L Potassium 4.3 (3.3-5.1) mmol/L Chloride 107 (96-108) mmol/L Carbon Dioxide 24 (22-29) mmol/L Anion Gap 13 (12-20) BUN 20 H (9-16) mg/dL Creatinine 0.96 (0.5-1.4) mg/dL Estim Creat Clear Calc 102.2 Estimated GFR > 60 Random Glucose 213 H D (60-115) mg/dL Calcium 9.8 (8.4-10.2) mg/dL Imaging Data Foot x-ray: Attestation: I personally reviewed and interpreted this imaging study as follows: Radiologist's impression: EXAMINATION: XR FOOT, LEFT CLINICAL INFORMATION: Ulceration with eschar. Pain.? COMPARISON: 04/16/2021? TECHNIQUE: AP, lateral, and oblique views of the left foot. FINDINGS: Soft tissue irregularity overlies the calcaneus. No osseous erosion. No fracture. No dislocation. Small heel spurs are again noted. Diffuse vascular calcifications. Soft tissue swelling of the foot.? XR/XR foot LT min 3V IMPRESSION: Ulceration overlying the calcaneus with no underlying osseous changes to suggest osteomyelitis. Venous duplex: Attestation: I personally reviewed and interpreted this imaging study as follows: Radiologist's impression: EXAMINATION:? US VENOUS ULTRASOUND WITH DOPPLER LOWER EXTREMITY, LEFT CLINICAL INFORMATION:? Left lower extremity pain. Swelling. COMPARISON:? None TECHNIQUE: Ultrasound of the deep veins is performed from the hip to the calf with compression sonography and color and pulse Doppler assessment. Spectral analysis with color-flow imaging is performed. FINDINGS: There is normal venous compression and respiratory variation and augmented flow. The visualized common femoral vein, superficial femoral vein, profunda femoral vein, popliteal vein, and the trifurcation region shows no evidence of deep venous thrombosis. ? There is no significant popliteal fossa cyst. If the patient's symptoms persist, followup ultrasound in 5 days 7 days might be of value to exclude proximal propagation from a non-visualized calf vein. US/US venous duplex LE LT IMPRESSION: No DVT demonstrated in the left lower extremity. Discharge Plan Discharge Clinical Impression: Chronic 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, Ulcer of left heel, Intractable heel pain Patient Disposition: Home, Self-Care Instructions: Chronic Pain (ED), Diabetic Foot Ulcers (ED) Additional Instructions: You were evaluated for chronic foot ulcers and chronic foot pain. Please follow-up the primary care provider for pain management. X-rays are negative for findings involving bone. Your lab values do not indicate an elevated white count at this time. Please continue to follow-up with wound care. Thank you for choosing this emergency department for evaluation. Please follow-up with primary care physician as needed. Return to the emergency department for any new, concerning, or worsening symptoms. Prescriptions: No Action (DME) Ultra-Light Rollator Misc See Rx Instructions .ROUTE .MEDSUPPLY Qty: 1 RF: 0 metoprolol succinate 50 mg tablet extended release 24 hr 1 tab PO DAILY RF: 0 Brilinta 90 mg tablet 1 tab PO BID RF: 0 atorvastatin 20 mg tablet 1 tab PO BEDTIME RF: 0 (DME) lancets [FreeStyle Lancets] 28 gauge misc See Rx Instructions .ROUTE .MEDSUPPLY Qty: 100 RF: 1 oxycodone-acetaminophen [Percocet] 10-325 mg tablet 1 tab PO Q6H PRN (Reason: pain) Qty: 15 RF: 0 Jardiance 25 mg tablet 25 mg PO QAM Qty: 30 RF: 5 insulin lispro [Humalog KwikPen Insulin] 100 unit/mL insulin pen 17 unit SUBCUT BIDAC Qty: 15 RF: 5 Lantus Solostar U-100 Insulin 100 unit/mL (3 mL) insulin pen 30 unit subcut QPM RF: 0 gabapentin 600 mg tablet 600 mg PO TID Qty: 90 RF: 4 aspirin 81 mg tablet,chewable 81 mg PO DAILY Qty: 30 RF: 5 ondansetron HCl 4 mg tablet 4 mg PO Q8H PRN (Reason: nausea and vomiting) Qty: 10 RF: 0 (DME) blood-glucose meter [FreeStyle Lite Meter] Kit See Rx Instructions .ROUTE .MEDSUPPLY Qty: 1 RF: 0 (DME) FreeStyle Lite Strips Strip See Rx Instructions .ROUTE .MEDSUPPLY Qty: 100 RF: 11 (DME) lancets [FreeStyle Lancets] 28 gauge misc See Rx Instructions .ROUTE .MEDSUPPLY Qty: 100 RF: 11 (DME) pen needle, diabetic [BD Ultra-Fine Michelle Pen Needle] 32 gauge x 5/32 needle See Rx Instructions .ROUTE .MEDSUPPLY Qty: 125 RF: 6 Referrals: Wound Care [facility] [Outside] - 2 days (Chronic ulcers) Interventions: ED Discharge Assessment Last Done: 05/07/21 23:50 Discharge Date/Time: 05/07/21 23:50
[2021-05-07] MEDS: oxyCODONE HCl Immed Release 5 MG TABLET 10 MG PO (23:42)
[2021-05-07] MEDS: Ketorolac Tromethamine 60 MG/2 ML VIAL IM (23:43)
== END 2021-05-07 23:50 | disposition home or self-care (01) ==
PROVIDERS: Emergency Provider Emergency Medicine Emergency Medical Services; PCP Internal Medicine
DX: L97.519 Non-pressure chronic ulcer of other part of right foot with unspecified severity (principal); L97.529 Non-pressure chronic ulcer of other part of left foot with unspecified severity; M79.672 Pain in left foot; M79.671 Pain in right foot; R60.0 Localized edema; F17.210 Nicotine dependence, cigarettes, uncomplicated; Z71.6 Tobacco abuse counseling; Z79.899 Other long term (current) drug therapy
CPT/HCPCS: 36415; 73630; 80048; 85025; 93971; 96372; 99284; J1885

== ENCOUNTER 2021-05-17 10:15 | Day surgery (SDC) | payer OTHER, SELFPAY ==
--- NOTE | 2021-05-14 09:38 | HO.ANESPROP2 ---
Documented by User: Miracle Li NP 05/14/21 09:44 HPI - Anesthesia Eval Consult details Narrative: 55yo M for Debridement Soft Tissue s/p LLE angioplasty 03/2021 with CS [facility] Active Problems Active Problems: All Active Problems (Updated 05/14/21 @ 00:01 by Lavell Barnett) Diabetic foot ulcer (Acute) PAD (peripheral artery disease) (Acute) Non-healing ulcer of foot (Acute) Intractable heel pain (Acute) Diabetic foot ulcer (Acute) Cellulitis of left foot (Acute) Chronic 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 (Acute) Ulcer of left heel (Acute) Cellulitis (Acute) Type 2 diabetes mellitus with hyperglycemia (Acute) Chronic pancreatitis (Acute) Diabetes mellitus with hyperglycemia, with long-term current use of insulin (Acute) Plantar fasciitis (Acute) Neuropathy (Acute) Calculus of distal right ureter (Acute) Plantar fasciitis (Acute) Hx of heart artery stent (Acute) Arthritis (Acute) Increased BMI (Acute) Status post laparoscopic cholecystectomy (Acute) Past Medical History Medical History Alcohol abuse Arthritis CAD (coronary artery disease) Chronic pancreatitis Diabetes mellitus with hyperglycemia, with long-term current use of insulin Essential hypertension Failure of outpatient treatment Hyperlipidemia Increased BMI Kidney calculus Type 2 diabetes mellitus with diabetic polyneuropathy Type 2 diabetes mellitus with hyperglycemia Family History Family History Mother [place] (myocardial infarction), Onset Age: 64 Diabetes mellitus HTN (hypertension) Maternal Grandmother Diabetes mellitus Family history of problems with anesthesia: No Surgical History Surgical History Hx of heart artery stent Hx of lithotripsy Status post laparoscopic cholecystectomy History of Problems with Anesthesia: No Social History Social History Household Members: Family Household Members Other:: and daughter Housing: House Do you presently have visiting nurse or other home services: No Alcohol intake: current Alcohol intake frequency: holidays/special occasions only Patient Tobacco Use Status: Former Tobacco user Quit Date: 3 weeks ago Tobacco use type: Cigarette Cigarette Packs Per Day: 1 Cigarettes Per Day: 20.0 Years Smoked: 28 Second Hand Smoke Exposure: Yes Use of substances other than those prescribed or required for medical reasons: No Substance Use Type: Marijuana Are you DNR?: No Advance Directives: No Advance Directives Information Provided: Yes Advance Directives Date on File: 04/17/21 service: No Current occupational status: employed Meds Allergies Allergy/AdvReac Type Severity Reaction Status Date / Time No Known Allergies Allergy Verified 05/17/21 10:48 [No Known Allergies*] Home Medications Medication Instructions Recorded Confirmed Last Taken Type metoprolol succinate 50 mg 1 tab PO DAILY 03/13/21 05/06/21 03/23/21 History tablet,extended release 24 hr ticagrelor 90 mg tablet (Brilinta) 1 tab PO BID 03/13/21 05/06/21 03/23/21 History atorvastatin 20 mg tablet 1 tab PO BEDTIME 03/24/21 05/06/21 03/23/21 History insulin glargine 100 unit/mL (3 30 unit SUBCUT QPM ml 05/06/21 05/06/21 Unknown History mL) subcutaneous pen (Lantus Solostar U-100 Insulin) Exam Exam Date and Time: May 14, 2021 0938 Pertinent Lab Results Pertinent Lab Results: Laboratory Tests 05/07/21 05/07/21 20:00 20:00 WBC 9.5 Hgb 14.1 Hct 43.5 Plt Count 240 Sodium 140 Potassium 4.3 Chloride 107 Carbon Dioxide 24 BUN 20 H Creatinine 0.96 Narrative Narrative: EKG 12/2020 Sinus rhythm, right bundle-branch block left anterior fascicular block, QTC 447 milliseconds, LVH US venous duplex LE LT 04/2021 IMPRESSION: No DVT demonstrated in the left lower extremity. XR foot LT min 3V 04/2021 IMPRESSION: Ulceration overlying the calcaneus with no underlying osseous changes to suggest osteomyelitis. Assessment and Plan Assessment Anesthesia Assessment: Chart Reviewed Final Anesthetic Review Family History of Problems with Anesthesia: No History of Problems with Anesthesia: No Documented by User: Ludivina Prado MD 05/17/21 11:28 HPI - Anesthesia Eval Consult details Narrative: 55yo M for Debridement Soft Tissue left foot s/p LLE angioplasty 03/2021 with CS [facility] Active Problems Active Problems: All Active Problems (Updated 05/14/21 @ 00:01 by Lavell Barnett) Diabetic foot ulcer (Acute) PAD (peripheral artery disease) (Acute) Non-healing ulcer of foot (Acute) Intractable heel pain (Acute) Diabetic foot ulcer (Acute) Cellulitis of left foot (Acute) Chronic 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 (Acute) Ulcer of left heel (Acute) Cellulitis (Acute) Type 2 diabetes mellitus with hyperglycemia (Acute) Chronic pancreatitis (Acute) Diabetes mellitus with hyperglycemia, with long-term current use of insulin (Acute) Plantar fasciitis (Acute) Neuropathy (Acute) Calculus of distal right ureter (Acute) Plantar fasciitis (Acute) Hx of heart artery stent (Acute) Arthritis (Acute) Increased BMI (Acute) Status post laparoscopic cholecystectomy (Acute) S/p covid vaccine x2 Past Medical History Medical History Alcohol abuse Arthritis CAD (coronary artery disease) Chronic pancreatitis Diabetes mellitus with hyperglycemia, with long-term current use of insulin Essential hypertension Failure of outpatient treatment Hyperlipidemia Increased BMI Kidney calculus Type 2 diabetes mellitus with diabetic polyneuropathy Type 2 diabetes mellitus with hyperglycemia Family History Family History Mother [place] (myocardial infarction), Onset Age: 64 Diabetes mellitus HTN (hypertension) Maternal Grandmother Diabetes mellitus Surgical History Surgical History Hx of heart artery stent Hx of lithotripsy Status post laparoscopic cholecystectomy Social History Social History Household Members: Family Household Members Other:: and daughter Housing: House Do you presently have visiting nurse or other home services: No Alcohol intake: current Alcohol intake frequency: holidays/special occasions only Patient Tobacco Use Status: Former Tobacco user Quit Date: 3 weeks ago Tobacco use type: Cigarette Cigarette Packs Per Day: 1 Cigarettes Per Day: 20.0 Years Smoked: 28 Second Hand Smoke Exposure: Yes Use of substances other than those prescribed or required for medical reasons: No Substance Use Type: Marijuana Are you DNR?: No Advance Directives: No Advance Directives Information Provided: Yes Advance Directives Date on File: 04/17/21 service: No Current occupational status: employed Meds Allergies Allergy/AdvReac Type Severity Reaction Status Date / Time No Known Allergies Allergy Verified 05/17/21 10:48 [No Known Allergies*] Home Medications Medication Instructions Recorded Confirmed Last Taken Type metoprolol succinate 50 mg 1 tab PO DAILY 03/13/21 05/06/21 03/23/21 History tablet,extended release 24 hr ticagrelor 90 mg tablet (Brilinta) 1 tab PO BID 03/13/21 05/06/21 03/23/21 History atorvastatin 20 mg tablet 1 tab PO BEDTIME 03/24/21 05/06/21 03/23/21 History insulin glargine 100 unit/mL (3 30 unit SUBCUT QPM ml 05/06/21 05/06/21 Unknown History mL) subcutaneous pen (Lantus Solostar U-100 Insulin) Exam Height,Weight and Vital Signs: Height 5 ft 9 in Weight 99.337 kg Vital Signs Temp Pulse Resp BP Pulse Ox 05/17/21 10:44 96.9 F 83 18 142/82 H 99 Pertinent Lab Results Pertinent Lab Results: Laboratory Tests 05/07/21 05/07/21 20:00 20:00 WBC 9.5 Hgb 14.1 Hct 43.5 Plt Count 240 Sodium 140 Potassium 4.3 Chloride 107 Carbon Dioxide 24 BUN 20 H Creatinine 0.96 Lab Results 05/17/21 Range/Units 10:41 POC Glucose 192 H (60-115) mg/dL Airway Mallampati Class: III TM Dist: >3cm Neck ROM: Full Denture: Upper and Lower Heart: RRR Lungs: CTAB Assessment and Plan Assessment Anesthesia Assessment: Anesthesia Plan Discussed Final Anesthetic Review NPO: Yes ASA Class: III Final Preanesthetic Review: No Changes in Pt Med Stat, Meds/Allgs Chart Reviewed, Consent Obtained/Reviewed and Anes Risks/Benef Reviewed Patient Risk: Intermediate Procedure Risk: Low Assessment/Block/Sedation in SS: Assess/Block/Sedation-SS Anesthetic Plan Anesthetic Plan: GA and MAC: Disposition: Standard PACU
[2021-05-17 10:44] VITALS: BP 142/82; PULSE 83; RESP 18; TEMP 36.1; O2SAT 99; BMI 32.3
[2021-05-17 10:44] LABS: Glucose, Whole Blood 192 mg/dL (60-115)
[2021-05-17] MEDS: Lactated Ringers 1,000 ML 100 ML IVCONT (11:03)
--- NOTE | 2021-05-17 11:30 | MHC.SHP ---
Pre-Procedural Eval Section A Date of Service: 05/17/21 The patient is an INPATIENT: Yes The History & Physical has been completed within 30 days and I have reviewed it.: Yes Section B Chief Complaint: PVD Allergies: Allergies Allergy/AdvReac Type Severity Reaction Status Date / Time No Known Allergies Allergy Verified 05/17/21 10:48 [No Known Allergies*] Plan I have reviewed the history and physical and performed a pertinent physical examination on my patient. No changes have occurred unless specified.
[2021-05-17 12:11] VITALS: BP 125/67; PULSE 76; RESP 16; TEMP 36.8; O2SAT 100
[2021-05-17] MEDS: Acetaminophen 325 MG TABLET 650 MG PO (12:20)
[2021-05-17] MEDS: oxyCODONE HCl Immed Release 5 MG TABLET PO (12:21)
--- NOTE | 2021-05-17 12:24 | P.OP_ITS ---
Operative Note Operative Note Date of Service: 05/17/21 Narrative: Operative note by [facility] Preoperative diagnosis:Nonhealing left foot ulcer Postoperative diagnosis: same Procedure: 1. excisional debridement of nonhealing left foot ulcer into muscle 2. application of epi Fix Surgeon:Berto Sheppard M.D. Sales And Leasing Agent: rachelle Anesthesia: local with sedation Specimens:1. deep cultures2. path specimen Drains: none Estimated blood loss: minimal Indications: pleasant 55-year-old gentleman with a longstanding history of diabetes has a nonhealing left heel ulcer. He has undergone conservative management for significant period of time. It has been nonhealing and now he presents for operative debridement The patient has signed the informed consent after reviewing risks, complications, benefits, and alternatives previously discussed with the patient. The patient was given the opportunity to ask any additional questions or voice any concerns. All questions were answered to the patient's satisfaction. Procedure in detail: patient was taken to the operating room prior to which a time-out was called for patient identification and site verification. Left foot was prepped and draped in standard surgical fashion. The area was infiltrated with local 1% lidocaine 0.5% Marcaine 50/50 mix. once this was accomplished using a 15 blade we excised the entire dry eschar. Preprocedure measurement was 3 cm x 3.5 cm x 0.1 cm. Using the 10 blade we removed that dry eschar. Then we used a 15 blade to do a scraping the entire muscle bed to we reached a good granulation base and there was some bleeding noted. Once this was accomplished it was thoroughly irrigated clean. Prior to irrigation deep cultures were undertaken. Once this was done we E obtained adequate hemostasis copious irrigation was undertaken. We then placed a 2 x 3 piece of epi Fix in the wound bed. Adaptic and a sterile dressing were applied. At the end the case sponge needle instrument counts were correct. Patient tolerated the procedure well. Returned to recovery with stable vitals. Please note postprocedure measurements were 4 cm x 4.5 cm x 0.3 cm. This note is constructed using voice recognition software. While every effort has been made to ensure accuracy, intelligent systems engineer errors may have been included. Thank you for allowing me to participate in the care of your patient. Yours sincerely, Berto Sheppard MD, FACS, R.P.V.I.
[2021-05-17 12:26] VITALS: BP 162/85; PULSE 69; RESP 16; O2SAT 97
[2021-05-17 12:47] VITALS: BP 142/88; PULSE 67; RESP 16; TEMP 36.6; O2SAT 97
== END 2021-05-17 13:40 | disposition home or self-care (01) ==
PROVIDERS: PCP Internal Medicine; Visit Provider Surgery Vascular Surgery
PROC: (CPT 11043; principal; 2021-05-17 12:00)
DX: E11.621 Type 2 diabetes mellitus with foot ulcer (principal); L97.428 Non-pressure chronic ulcer of left heel and midfoot with other specified severity; I73.9 Peripheral vascular disease, unspecified; I10 Essential (primary) hypertension
CPT/HCPCS: 11043; 82947; 87071; 87077; 87186; 87205; 88304; J0690; J2250; J2405; J3010; Q4186

== ENCOUNTER 2021-05-31 00:09 | Emergency (ER) | payer OTHER, SELFPAY ==
[2021-05-31 00:14] VITALS: BP 149/65; PULSE 81; RESP 18; TEMP 36.8; O2SAT 100; BMI 30.8
--- NOTE | 2021-05-31 02:50 | ED_ITS ---
HPI - General Adult General Chief complaint: Wound/Laceration Stated complaint: ulcer pain Time Seen by Provider: 05/31/21 01:41 Source: patient Mode of arrival: ambulatory History of Present Illness HPI narrative: 55-year-old male with history of diabetes and recent excisional debridement of a left nonhealing foot ulcer on 05/17 and presents with complaints of pain but denies any fever chills and states that his foot has been swollen in that he turned off the wound VAC just prior to presentation this evening. Related Data Home Medications Medication Instructions Recorded Confirmed metoprolol succinate 50 mg 1 tab PO DAILY 03/13/21 05/06/21 tablet,extended release 24 hr ticagrelor 90 mg tablet (Brilinta) 1 tab PO BID 03/13/21 05/06/21 atorvastatin 20 mg tablet 1 tab PO BEDTIME 03/24/21 05/06/21 insulin glargine 100 unit/mL (3 30 unit SUBCUT QPM ml 05/06/21 05/06/21 mL) subcutaneous pen (Lantus Solostar U-100 Insulin) Previous Rx's Medication Instructions Recorded walker (Ultra-Light Rollator) #1 ea 09/14/20 lancets 28 gauge (FreeStyle #100 ea 01/04/21 Lancets) blood sugar diagnostic (FreeStyle #100 ea 01/07/21 Lite Strips) blood-glucose meter (FreeStyle #1 ea 01/07/21 Lite Meter) lancets 28 gauge (FreeStyle #100 ea 01/07/21 Lancets) pen needle, diabetic 32 gauge x #125 ea 01/07/21 (BD Ultra-Fine Michelle Pen Needle) oxycodone-acetaminophen 10 mg-325 1 tab PO Q6H PRN #15 tab 04/15/21 mg tablet (Percocet) aspirin 81 mg chewable tablet 81 mg PO DAILY #30 tab 05/06/21 empagliflozin 25 mg tablet 25 mg PO QAM #30 tab 05/06/21 (Jardiance) gabapentin 600 mg tablet 600 mg PO TID #90 tab 05/06/21 insulin lispro 100 unit/mL 17 unit SUBCUT BIDAC #15 ml 05/06/21 subcutaneous pen (Humalog KwikPen (U-100) Insulin) ondansetron HCl 4 mg tablet 4 mg PO Q8H PRN #10 tab 05/06/21 oxycodone-acetaminophen 5 mg-325 1 tab PO Q4-6H PRN #20 tab 05/17/21 mg tablet (Percocet) Allergies Allergy/AdvReac Type Severity Reaction Status Date / Time No Known Allergies Allergy Verified 05/31/21 00:13 [No Known Allergies*] Review of Systems Review of Systems: Pertinent positives and negatives as stated in HPI 10 point review of systems is otherwise negative. PMFSH Past Medical History Source: nursing notes reviewed Medical History Alcohol abuse Arthritis CAD (coronary artery disease) Chronic pancreatitis Diabetes mellitus with hyperglycemia, with long-term current use of insulin Essential hypertension Failure of outpatient treatment Hyperlipidemia Increased BMI Kidney calculus Type 2 diabetes mellitus with diabetic polyneuropathy Type 2 diabetes mellitus with hyperglycemia Surgical History Hx of heart artery stent Hx of lithotripsy Status post laparoscopic cholecystectomy Family History Family History Mother [place] (myocardial infarction), Onset Age: 64 Diabetes mellitus HTN (hypertension) Maternal Grandmother Diabetes mellitus Social History Social History Household Members: Family Household Members Other:: and daughter Housing: House Do you presently have visiting nurse or other home services: No Alcohol intake: current Alcohol intake frequency: holidays/special occasions only Patient Tobacco Use Status: Former Tobacco user Quit Date: 3 weeks ago Tobacco use type: Cigarette Cigarette Packs Per Day: 1 Cigarettes Per Day: 20.0 Years Smoked: 28 Second Hand Smoke Exposure: Yes Substance Use Type: Marijuana Advance Directives: Yes Advance Directives on File: Yes Advance Directives Date on File: 04/17/21 service: No Current occupational status: employed Physical Exam Vital Signs: Vital Signs: Last Vital Signs Temp 98.2 F 05/31/21 00:14 Pulse 81 05/31/21 00:14 Resp 18 05/31/21 00:14 BP 149/65 H 05/31/21 00:14 Pulse Ox 100 05/31/21 00:14 Body Mass Index 30.8 VITAL SIGNS: Reviewed. GENERAL: Well developed, well nourished, in no acute distress. HEAD: Normocephalic/atraumatic EYES: PERRLA, EOMI LUNGS: Normal breath sounds. No adventitious sounds or accessory muscle use. SpO2<100> CARDIOVASCULAR: Regular rate and rhythm without noted murmurs, ABDOMEN: Soft, non-tender, non-distended with bowel sounds. LEFT FOOT: Patient has disconnected the wound VAC from the machine, there is no surrounding erythema or induration appreciated, swelling noted within the left foot without erythema or induration NEUROLOGIC: Alert and oriented x 4. Course Course Course Narrative: 55-year-old male with history and clinical presentation consistent with recent excisional debridement of nonhealing left heel ulcer and now requesting more pain medication. Review of patient's prescriptions indic ates that he has received both Percocet as well as gabapentin on 05/17 and has a follow-up appointment tomorrow. Basic labs were ordered and on review there are no acute findings. Patient was provided with a single dose of pain medication instructed follow-up as scheduled in the morning. In addition, he was also encouraged to keep the wound VAC attached to avoid any complications. Medical Decision Making Lab Data Result diagrams: 05/31/21 03:04 05/31/21 03:04 Labs: Lab Results 05/31/21 05/31/21 Range/Units 03:04 03:04 WBC 11.9 H (4.8-10.8) X10*3/uL RBC 4.98 (4.60-5.80) X10*6/uL Hgb 13.3 L (14.0-18.0) g/dl Hct 41.5 L (42-52) % MCV 83.3 (80-98) fL MCH 26.7 L (27.0-33.0) pg MCHC 32.0 (31.0-36.0) g/dl RDW 15.1 (11.0-16.0) % Plt Count 218 (160-400) X10*3/uL MPV 10.1 (9.4-12.4) fL Immature Gran % (Auto) 0.7 H (0.0-0.4) % Neut % (Auto) 57.1 (45-73) % Lymph % (Auto) 25.0 (20-40) % [place] % (Auto) 9.9 (2-11) % Eos % (Auto) 6.7 H (0-4) % Baso % (Auto) 0.6 (0-2) % Lymph # (Auto) 3.0 (1.2-4.9) X10*3/uL [place] # (Auto) 1.2 (0.1-1.2) X10*3/uL Eos # (Auto) 0.8 H (0.0-0.4) X10*3/uL Baso # (Auto) 0.1 (0.0-0.2) X10*3/uL Abs Immat Gran (auto) 0.08 H (0.00-0.03) X10*3/uL Absolute Neuts (auto) 6.8 (2.0-8.3) X10*3/uL Absolute Nucleated RBC 0.000 (0.0-0.012) X10*3/uL Nucleated RBC % (auto) 0.0 (0.0-0.2) /100WBC Sodium 140 (135-145) mmol/L Potassium 4.5 (3.3-5.1) mmol/L Chloride 106 (96-108) mmol/L Carbon Dioxide 25 (22-29) mmol/L Anion Gap 14 (12-20) BUN 18 H (9-16) mg/dL Creatinine 1.07 (0.5-1.4) mg/dL Estim Creat Clear Calc 89.6 Estimated GFR > 60 Random Glucose 144 H (60-115) mg/dL Calcium 9.1 D (8.4-10.2) mg/dL Total Bilirubin < 0.2 (0.0-1.0) mg/dL AST 16 (5-37) U/L ALT 21 (0-40) U/L Alkaline Phosphatase 79 (39-117) U/L Total Protein 7.1 (6.5-8.0) g/dL Albumin 3.9 (3.5-5.0) g/dL Discharge Plan Discharge Clinical Impression: Pain at surgical site Patient Disposition: Home, Self-Care Instructions: Pain Management After Surgery (DC) Additional Instructions: 1. Resume all home medications as prescribed. 2. Follow-up as scheduled tomorrow morning. Return to the ER for acute worsening of symptoms. Prescriptions: No Action (DME) Ultra-Light Rollator Misc See Rx Instructions .ROUTE .MEDSUPPLY Qty: 1 RF: 0 metoprolol succinate 50 mg tablet extended release 24 hr 1 tab PO DAILY RF: 0 Brilinta 90 mg tablet 1 tab PO BID RF: 0 atorvastatin 20 mg tablet 1 tab PO BEDTIME RF: 0 oxycodone-acetaminophen [Percocet] 5-325 mg tablet 1 tab PO Q4-6H PRN (Reason: pain) Qty: 20 RF: 0 (DME) lancets [FreeStyle Lancets] 28 gauge misc See Rx Instructions .ROUTE .MEDSUPPLY Qty: 100 RF: 1 oxycodone-acetaminophen [Percocet] 10-325 mg tablet 1 tab PO Q6H PRN (Reason: pain) Qty: 15 RF: 0 Jardiance 25 mg tablet 25 mg PO QAM Qty: 30 RF: 5 insulin lispro [Humalog KwikPen Insulin] 100 unit/mL insulin pen 17 unit SUBCUT BIDAC Qty: 15 RF: 5 Lantus Solostar U-100 Insulin 100 unit/mL (3 mL) insulin pen 30 unit subcut QPM RF: 0 gabapentin 600 mg tablet 600 mg PO TID Qty: 90 RF: 4 aspirin 81 mg tablet,chewable 81 mg PO DAILY Qty: 30 RF: 5 ondansetron HCl 4 mg tablet 4 mg PO Q8H PRN (Reason: nausea and vomiting) Qty: 10 RF: 0 (DME) blood-glucose meter [FreeStyle Lite Meter] Kit See Rx Instructions .ROUTE .MEDSUPPLY Qty: 1 RF: 0 (DME) FreeStyle Lite Strips Strip See Rx Instructions .ROUTE .MEDSUPPLY Qty: 100 RF: 11 (DME) lancets [FreeStyle Lancets] 28 gauge misc See Rx Instructions .ROUTE .MEDSUPPLY Qty: 100 RF: 11 (DME) pen needle, diabetic [BD Ultra-Fine Michelle Pen Needle] 32 gauge x 5/32 needle See Rx Instructions .ROUTE .MEDSUPPLY Qty: 125 RF: 6 Referrals: Shanta Haney MD [Primary Care Provider] - 2 days Print Language: British
[2021-05-31 03:08] LABS: MANUAL DIFF FLAG NO
[2021-05-31 03:09] LABS: Basophils Absolute Auto 0.1 X10*3/uL (0.0-0.2); Basophils Percent Auto 0.6 % (0-2); Eosinophils Absolute Auto 0.8 X10*3/uL (0.0-0.4); Eosinophils Percent Auto 6.7 % (0-4); Hematocrit 41.5 % (42-52); Hemoglobin 13.3 g/dl (14.0-18.0); Imm Gran Abs Auto 0.08 X10*3/uL (0.00-0.03); Imm Gran Pct Auto 0.7 % (0.0-0.4); Mean Corpuscular Hemoglobin 26.7 pg (27.0-33.0); Mean Corpuscular Volume 83.3 fL (80-98); Mean Platelet Volume 10.1 fL (9.4-12.4); Monocytes Absolute Auto 1.2 X10*3/uL (0.1-1.2); Monocytes Percent Auto 9.9 % (2-11); Neutrophils Absolute Auto 6.8 X10*3/uL (2.0-8.3); Neutrophils Percent Auto 57.1 % (45-73); Platelet Count 218 X10*3/uL (160-400); Red Blood Count 4.98 X10*6/uL (4.60-5.80); Red Cell Distribution Width 15.1 % (11.0-16.0); White Blood Count 11.9 X10*3/uL (4.8-10.8)
[2021-05-31] MEDS: oxyCODONE HCl Immed Release 5 MG TABLET PO (03:30)
[2021-05-31] MEDS: Acetaminophen 325 MG TABLET 975 MG PO (03:30)
[2021-05-31 03:31] LABS: Alanine Aminotransferase 21 U/L (0-40); Albumin Level 3.9 g/dL (3.5-5.0); Alkaline Phosphatase 79 U/L (39-117); Anion Gap 14 (12-20); Aspartate Amino Transferase 16 U/L (5-37); Bilirubin Total < 0.2 mg/dL (0.0-1.0); Blood Urea Nitrogen 18 mg/dL (9-16); Calcium 9.1 mg/dL (8.4-10.2); Carbon Dioxide 25 mmol/L (22-29); Chloride 106 mmol/L (96-108); Creatinine Clr Calc Pharmacy 89.6; Estimated Glomerular Filt Rate > 60; Glucose Random 144 mg/dL (60-115); Potassium 4.5 mmol/L (3.3-5.1); Sodium 140 mmol/L (135-145); Total Protein 7.1 g/dL (6.5-8.0)
== END 2021-05-31 03:38 | disposition home or self-care (01) ==
PROVIDERS: Emergency Provider Student in an Organized Health Care Education/Training Program; PCP Internal Medicine
DX: L97.529 Non-pressure chronic ulcer of other part of left foot with unspecified severity (principal); Z79.899 Other long term (current) drug therapy; F17.210 Nicotine dependence, cigarettes, uncomplicated; Z71.6 Tobacco abuse counseling
CPT/HCPCS: 36415; 80053; 85025; 99283; 99284

== ENCOUNTER 2021-06-01 11:41 | Inpatient (IN) | payer OTHER, SELFPAY ==
--- NOTE | ~2021-06-01 | XR_ITS ---
EXAMINATION: XR FOOT, LEFT CLINICAL INFORMATION: Soft tissue wound heel. Assess for osteomyelitis. COMPARISON: Radiographs left foot 05/07/2021, 04/16/2021. TECHNIQUE: AP, lateral, and oblique views of the left foot. FINDINGS: There is soft tissue defect at the posterior heel. Irregular densities overlying the skin surface may be from combination of the dressing and possibly ointment. There is no gas tracking in the soft tissues. The retrocalcaneal recess is preserved. The bony mineralization appears normal. There is no focal decreased bony attenuation. There is no loss of the cortical white line. No bony destructive process. Posterior and plantar calcaneal spurs are again seen. The subtalar joint is unremarkable. There is no fracture or dislocation. Extensive vascular calcifications are again noted. XR/XR foot LT 2V IMPRESSION: Soft tissue defect posterior heel. No bony destructive process.
--- NOTE | ~2021-06-01 | XR_ITS ---
EXAMINATION: XR TOES, RIGHT CLINICAL INFORMATION: Great toe. Question osteomyelitis. COMPARISON: Previous x-ray of the right foot 03/12/2021 TECHNIQUE: 3 views of the right toes were obtained. FINDINGS: Bone alignment is normal. No fracture or. There is tissue swelling over the distal tuft of the great toe and soft tissue tissue defect. There is osteopenia and slight bone loss of the distal tuft of the great toe questionable for osteomyelitis. No soft tissue foreign body is seen. There is soft tissue arterial calcification. XR/XR toe RT min 2V IMPRESSION: Question osteomyelitis of the distal tuft of the great toe. Adjacent soft tissue swelling and soft tissue defect suggestive of ulcer. No soft tissue foreign body seen.
[2021-06-01 12:42] VITALS: BP 168/93; PULSE 72; RESP 18; TEMP 36.8; O2SAT 98; BMI 30.8
[2021-06-01 14:07] LABS: MANUAL DIFF FLAG NO
[2021-06-01 14:08] LABS: Basophils Absolute Auto 0.1 X10*3/uL (0.0-0.2); Basophils Percent Auto 0.7 % (0-2); Eosinophils Absolute Auto 0.8 X10*3/uL (0.0-0.4); Eosinophils Percent Auto 6.3 % (0-4); Hematocrit 43.9 % (42-52); Hemoglobin 14.1 g/dl (14.0-18.0); Imm Gran Pct Auto 0.8 % (0.0-0.4); Lymphocytes Absolute Auto 2.7 X10*3/uL (1.2-4.9); Lymphocytes Percent Auto 22.9 % (20-40); Mean Corpuscular HGB Conc 32.1 g/dl (31.0-36.0); Mean Corpuscular Hemoglobin 26.5 pg (27.0-33.0); Mean Corpuscular Volume 82.5 fL (80-98); Mean Platelet Volume 10.3 fL (9.4-12.4); Monocytes Percent Auto 8.2 % (2-11); Neutrophils Absolute Auto 7.3 X10*3/uL (2.0-8.3); Neutrophils Percent Auto 61.1 % (45-73); Platelet Count 248 X10*3/uL (160-400); Red Blood Count 5.32 X10*6/uL (4.60-5.80)
[2021-06-01 14:29] LABS: Alanine Aminotransferase 21 U/L (0-40); Albumin Level 4.2 g/dL (3.5-5.0); Alkaline Phosphatase 92 U/L (39-117); Anion Gap 13 (12-20); Aspartate Amino Transferase 17 U/L (5-37); Bilirubin Total 0.3 mg/dL (0.0-1.0); Blood Urea Nitrogen 12 mg/dL (9-16); Calcium 9.4 mg/dL (8.4-10.2); Carbon Dioxide 24 mmol/L (22-29); Chloride 102 mmol/L (96-108); Creatinine Clr Calc Pharmacy 112.8; Estimated Glomerular Filt Rate > 60; Glucose Random 151 mg/dL (60-115); Potassium 4.3 mmol/L (3.3-5.1); Sodium 135 mmol/L (135-145); Total Protein 7.9 g/dL (6.5-8.0)
--- NOTE | 2021-06-01 15:27 | PHA.MEDREC ---
Pharmacy Consult ? Medication Reconciliation Pharmacy has completed the medication reconciliation. Spoke with patient in the ED, patient was able to state all medications he is taking at home.
--- NOTE | 2021-06-01 15:32 | ED.GENADULT ---
HPI - General Adult General Chief complaint: Wound/Laceration Stated complaint: ?inf wound lt heel Time Seen by Provider: 06/01/21 15:04 Source: patient Mode of arrival: ambulatory Limitations: no limitations History of Present Illness HPI narrative: 55-year-old male with a history of diabetes on insulin, peripheral neuropathy, PAD, , HTN, CAD, kidney stones, nonhealing left diabetic foot wound for the last 5-6 months s/p recent surgical debridement with Dr. Sheppard on May 17 who presents to the ER from the wound clinic with significant worsening left heel pain for the last 2 days. He reports no improvement with Motrin. Pain is 10/10. He is nauseous. He denies fever or chills. He has been using crutches to ambulate and cannot put any pressure on his foot for the last 2-3 weeks. He also notes a nonhealing wound to the great right toe for the last 4 months as well. The provider at the wound clinic called over to the emergency room to inform us of this patient coming over. She is recommending IV antibiotics, rule out osteomyelitis, and is concerned for possible need for amputation. She states trial of wound vac with no success. complaint: left heel pain Onset (ago): day(s) (2) Location: left and lower extremity Radiation: proximal Severity: severe Severity scale (1-10): 10 Quality: aching and constant Pain Consistency: constant Relieving factors: immobilization Exacerbating factors: movement Associated symptoms: nausea/vomiting Treatments prior to arrival: NSAID Related Data Home Medications Medication Instructions Recorded Confirmed metoprolol succinate 50 mg 1 tab PO DAILY 03/13/21 06/01/21 tablet,extended release 24 hr ticagrelor 90 mg tablet (Brilinta) 1 tab PO BID 03/13/21 06/01/21 atorvastatin 20 mg tablet 1 tab PO BEDTIME 03/24/21 06/01/21 insulin glargine 100 unit/mL (3 30 unit SUBCUT BEDTIME ml 05/06/21 06/01/21 mL) subcutaneous pen (Lantus Solostar U-100 Insulin) Previous Rx's Medication Instructions Recorded walker (Ultra-Light Rollator) #1 ea 09/14/20 lancets 28 gauge (FreeStyle #100 ea 01/04/21 Lancets) blood sugar diagnostic (FreeStyle #100 ea 01/07/21 Lite Strips) blood-glucose meter (FreeStyle #1 ea 01/07/21 Lite Meter) lancets 28 gauge (FreeStyle #100 ea 01/07/21 Lancets) pen needle, diabetic 32 gauge x #125 ea 01/07/21 (BD Ultra-Fine Michelle Pen Needle) aspirin 81 mg chewable tablet 81 mg PO DAILY #30 tab 05/06/21 empagliflozin 25 mg tablet 25 mg PO QAM #30 tab 05/06/21 (Jardiance) gabapentin 600 mg tablet 600 mg PO TID #90 tab 05/06/21 insulin lispro 100 unit/mL 17 unit SUBCUT BIDAC #15 ml 05/06/21 subcutaneous pen (Humalog KwikPen (U-100) Insulin) ondansetron HCl 4 mg tablet 4 mg PO Q8H PRN #10 tab 05/06/21 Allergies Allergy/AdvReac Type Severity Reaction Status Date / Time No Known Allergies Allergy Verified 06/01/21 12:42 [No Known Allergies*] Review of Systems Review of Systems: Constitutional: No Fever, No Chills ENT/Mouth: No sore throat, No Rhinorrhea, No Swallowing Difficulty Cardiovascular: No Chest Pain, No SOB, No Orthopnea, No Edema Respiratory: No Cough, No Sputum, No Wheezing, No dyspnea Gastrointestinal: + Nausea, No Vomiting, No Diarrhea, No abdominal Pain Genitourinary: No Dysuria, No Urinary Frequency, No Hematuria Musculoskeletal: + joint pain, + Myalgias Skin: + Skin Lesions, No rash Neuro: No Weakness, No Numbness, No Dizziness, No Headache Psych: + Anxiety/Panic, + Depression Heme/Lymph: No Bruising, No Lymphadenopathy Endocrine: No Polyuria, No Polydipsia PMFSH Past Medical History Medical History Alcohol abuse Arthritis CAD (coronary artery disease) Chronic pancreatitis Diabetes mellitus with hyperglycemia, with long-term current use of insulin Essential hypertension Failure of outpatient treatment Hyperlipidemia Increased BMI Kidney calculus Type 2 diabetes mellitus with diabetic polyneuropathy Type 2 diabetes mellitus with hyperglycemia Surgical History Hx of heart artery stent Hx of lithotripsy Status post laparoscopic cholecystectomy Family History Family History Mother [place] (myocardial infarction), Onset Age: 64 Diabetes mellitus HTN (hypertension) Maternal Grandmother Diabetes mellitus Social History Social History Household Members: Family Household Members Other:: and daughter Housing: House Do you presently have visiting nurse or other home services: No Alcohol intake: current Alcohol intake frequency: holidays/special occasions only Patient Tobacco Use Status: Former Tobacco user Quit Date: 3 weeks ago Tobacco use type: Cigarette Cigarette Packs Per Day: 1 Cigarettes Per Day: 20.0 Years Smoked: 28 Second Hand Smoke Exposure: Yes Use of substances other than those prescribed or required for medical reasons: No Substance Use Type: Marijuana Advance Directives: Yes Advance Directives on File: Yes Advance Directives Date on File: 04/17/21 service: No Current occupational status: employed Physical Exam Vital Signs: Vital Signs: Last Vital Signs Temp 97.7 F 06/01/21 16:00 Pulse 74 06/01/21 16:00 Resp 18 06/01/21 16:00 BP 139/68 06/01/21 16:00 Pulse Ox 100 06/01/21 16:00 Body Mass Index 30.8 Appearance: Alert. Oriented X3. Appears to be in pain. Eyes: Pupils equal, round and reactive to light. ENT: Pharynx normal. Neck: Normal inspection. Neck supple. CVS: Normal heart rate and rhythm. Pulses normal. Respiratory: No respiratory distress. Breath sounds normal. Abdomen: Soft and nontender. +BS x4 Skin: Skin warm and dry. Normal skin color. Normal skin turgor. No rashes. Extremities: left heel with large foul smelling wound yellow tissue at the base with tenderness along entire plantar aspect of the foot, warm and well perfused, 1+ DP pulse, right great toe with nonhealing 3 cm wound, tender, foul smelling (see photos below) Neuro: Oriented X 3. Nonfocal. Course Course Course Narrative: 55-year-old male with history of nonhealing diabetic foot wounds coming in with worsening pain. He was sent in from the Wound Clinic with foul-smelling wounds and concern for osteomyelitis. He is hemodynamically stable and afebrile on arrival. He is in significant pain. We will get a basic lab workup, cultures, x-rays. Anticipate he will require inpatient level of care for IV antibiotics and MRI to evaluate for osteomyelitis. Reevaluation(s) Reevaluation #1: WBC 12,000. Lactic acid is normal. ray of the left heel shows soft tissue defect however no overt destructive bony process is seen. Right great toe shows concerning findings of osteomyelitis. He will need MRI of these areas for further evaluation. His pain is somewhat improved with oxycodone. Will plan for admission. Patient is agreeable with plan. Dr. Sandoval and been contacted about admission and accepts the patient. Medical Decision Making Lab Data Result diagrams: 06/01/21 13:59 06/01/21 13:59 Labs: Lab Results 06/01/21 06/01/21 06/01/21 Range/Units 13:59 13:59 15:32 WBC 12.0 H (4.8-10.8) X10*3/uL RBC 5.32 (4.60-5.80) X10*6/uL Hgb 14.1 (14.0-18.0) g/dl Hct 43.9 (42-52) % MCV 82.5 (80-98) fL MCH 26.5 L (27.0-33.0) pg MCHC 32.1 (31.0-36.0) g/dl RDW 15.0 (11.0-16.0) % Plt Count 248 (160-400) X10*3/uL MPV 10.3 (9.4-12.4) fL Immature Gran % (Auto) 0.8 H (0.0-0.4) % Neut % (Auto) 61.1 (45-73) % Lymph % (Auto) 22.9 (20-40) % [place] % (Auto) 8.2 (2-11) % Eos % (Auto) 6.3 H (0-4) % Baso % (Auto) 0.7 (0-2) % Lymph # (Auto) 2.7 (1.2-4.9) X10*3/uL [place] # (Auto) 1.0 (0.1-1.2) X10*3/uL Eos # (Auto) 0.8 H (0.0-0.4) X10*3/uL Baso # (Auto) 0.1 (0.0-0.2) X10*3/uL Abs Immat Gran (auto) 0.10 H (0.00-0.03) X10*3/uL Absolute Neuts (auto) 7.3 (2.0-8.3) X10*3/uL Absolute Nucleated RBC 0.000 (0.0-0.012) X10*3/uL Nucleated RBC % (auto) 0.0 (0.0-0.2) /100WBC ESR 28 H (0-15) MM/HR Sodium 135 (135-145) mmol/L Potassium 4.3 (3.3-5.1) mmol/L Chloride 102 (96-108) mmol/L Carbon Dioxide 24 (22-29) mmol/L Anion Gap 13 (12-20) BUN 12 (9-16) mg/dL Creatinine 0.85 (0.5-1.4) mg/dL Estim Creat Clear Calc 112.8 Estimated GFR > 60 Random Glucose 151 H (60-115) mg/dL Lactic Acid (0.5-2.0) mmol/L Calcium 9.4 (8.4-10.2) mg/dL Total Bilirubin 0.3 (0.0-1.0) mg/dL AST 17 (5-37) U/L ALT 21 (0-40) U/L Alkaline Phosphatase 92 (39-117) U/L C-Reactive Protein (< or = 0.50) mg/dL Total Protein 7.9 (6.5-8.0) g/dL Albumin 4.2 (3.5-5.0) g/dL COVID-19 ([facility]) (Negative) COVID-19 Clin Com 06/01/21 06/01/21 06/01/21 Range/Units 15:32 15:32 15:32 WBC (4.8-10.8) X10*3/uL RBC (4.60-5.80) X10*6/uL Hgb (14.0-18.0) g/dl Hct (42-52) % MCV (80-98) fL MCH (27.0-33.0) pg MCHC (31.0-36.0) g/dl RDW (11.0-16.0) % Plt Count (160-400) X10*3/uL MPV (9.4-12.4) fL Immature Gran % (Auto) (0.0-0.4) % Neut % (Auto) (45-73) % Lymph % (Auto) (20-40) % [place] % (Auto) (2-11) % Eos % (Auto) (0-4) % Baso % (Auto) (0-2) % Lymph # (Auto) (1.2-4.9) X10*3/uL [place] # (Auto) (0.1-1.2) X10*3/uL Eos # (Auto) (0.0-0.4) X10*3/uL Baso # (Auto) (0.0-0.2) X10*3/uL Abs Immat Gran (auto) (0.00-0.03) X10*3/uL Absolute Neuts (auto) (2.0-8.3) X10*3/uL Absolute Nucleated RBC (0.0-0.012) X10*3/uL Nucleated RBC % (auto) (0.0-0.2) /100WBC ESR (0-15) MM/HR Sodium (135-145) mmol/L Potassium (3.3-5.1) mmol/L Chloride (96-108) mmol/L Carbon Dioxide (22-29) mmol/L Anion Gap (12-20) BUN (9-16) mg/dL Creatinine (0.5-1.4) mg/dL Estim Creat Clear Calc Estimated GFR Random Glucose (60-115) mg/dL Lactic Acid 1.4 (0.5-2.0) mmol/L Calcium (8.4-10.2) mg/dL Total Bilirubin (0.0-1.0) mg/dL AST (5-37) U/L ALT (0-40) U/L Alkaline Phosphatase (39-117) U/L C-Reactive Protein 1.48 H (< or = 0.50) mg/dL Total Protein (6.5-8.0) g/dL Albumin (3.5-5.0) g/dL COVID-19 ([facility]) Negative (Negative) COVID-19 Clin Com See Note Discharge Plan Discharge Patient Disposition: Admitted As Inpatient Prescriptions: No Action (DME) Ultra-Light Rollator Misc See Rx Instructions .ROUTE .MEDSUPPLY Qty: 1 RF: 0 metoprolol succinate 50 mg tablet extended release 24 hr 1 tab PO DAILY RF: 0 Brilinta 90 mg tablet 1 tab PO BID RF: 0 atorvastatin 20 mg tablet 1 tab PO BEDTIME RF: 0 (DME) lancets [FreeStyle Lancets] 28 gauge misc See Rx Instructions .ROUTE .MEDSUPPLY Qty: 100 RF: 1 Jardiance 25 mg tablet 25 mg PO QAM Qty: 30 RF: 5 insulin lispro [Humalog KwikPen Insulin] 100 unit/mL insulin pen 17 unit SUBCUT BIDAC Qty: 15 RF: 5 Lantus Solostar U-100 Insulin 100 unit/mL (3 mL) insulin pen 30 unit subcut BEDTIME RF: 0 gabapentin 600 mg tablet 600 mg PO TID Qty: 90 RF: 4 aspirin 81 mg tablet,chewable 81 mg PO DAILY Qty: 30 RF: 5 ondansetron HCl 4 mg tablet 4 mg PO Q8H PRN (Reason: nausea and vomiting) Qty: 10 RF: 0 (DME) blood-glucose meter [FreeStyle Lite Meter] Kit See Rx Instructions .ROUTE .MEDSUPPLY Qty: 1 RF: 0 (DME) FreeStyle Lite Strips Strip See Rx Instructions .ROUTE .MEDSUPPLY Qty: 100 RF: 11 (DME) lancets [FreeStyle Lancets] 28 gauge misc See Rx Instructions .ROUTE .MEDSUPPLY Qty: 100 RF: 11 (DME) pen needle, diabetic [BD Ultra-Fine Michelle Pen Needle] 32 gauge x 5/32 needle See Rx Instructions .ROUTE .MEDSUPPLY Qty: 125 RF: 6
[2021-06-01] MEDS: oxyCODONE HCl Immed Release 5 MG TABLET PO (15:48)
[2021-06-01] MEDS: 0.9 % Sodium Chloride 1,000 ML 999 ML IVCONT (15:49)
[2021-06-01] MEDS: Piperacillin Sodium/Tazobactam 3.375 GM in 0.9 % Sodium Chloride 50 ML IV ×2 (15:49→21:24)
[2021-06-01 15:50] LABS: Lactic Acid 1.4 mmol/L (0.5-2.0)
[2021-06-01 15:52] LABS: C Reactive Protein 1.48 mg/dL (< or = 0.50)
[2021-06-01 16:00] VITALS: BP 139/68; PULSE 74; RESP 18; TEMP 36.5; O2SAT 100
[2021-06-01 16:09] LABS: COVID-19 Test Negative (Negative)
[2021-06-01 16:22] LABS: Erythrocyte Sedimentation Rate 28 MM/HR (0-15)
--- NOTE | 2021-06-01 16:33 | PM.IMHP ---
History of Present Illness Date of Service: 06/01/21 Chief Complaint: painful non healing ulcer 55M sent in from wound clinic for non healing left heel ulcer. ulcer began sep 2020. has been treated with antibiotics, debridement, revascularalization, has had woundvac. ulcer has not improved, continue to be painful with discharge, pain is 9/10, constant, worse with ambulation, unable to bear weight, improved with pain meds. denies fever chills, sob, chest. junaid has right 1st toe dry ulcer, he states this has improved over the same time. in ED xray of heel ulcer not definitive for OM, toe xray suspicious for OM. given vanc/zosyn. Review of Systems Review of Systems: Constitutional: Denies fever, denies Chills Eyes: denies blurry vision ENT: denies sore throat CVS: denies chest pain Respiratory: Denies dyspnea GI: no abdominal pain : denies dysuria MSK: denies neck pain Skin: denies rash Neuro: denies specific motor weakness Psych: denies suicidal ideation Endocrine: denies heat/cold intolerance Hematologic: denies easy bleeding Allergy: denies hives [facility] Medical History Alcohol abuse Arthritis CAD (coronary artery disease) Chronic pancreatitis Diabetes mellitus with hyperglycemia, with long-term current use of insulin Essential hypertension Failure of outpatient treatment Hyperlipidemia Increased BMI Kidney calculus Type 2 diabetes mellitus with diabetic polyneuropathy Type 2 diabetes mellitus with hyperglycemia Family History Mother [facility] (myocardial infarction), Onset Age: 64 Diabetes mellitus HTN (hypertension) Maternal Grandmother Diabetes mellitus Pertinent family history: see natividad Surgical History Hx of heart artery stent Hx of lithotripsy Status post laparoscopic cholecystectomy Social History Household Members: Family Household Members Other:: and daughter Housing: House Do you presently have visiting nurse or other home services: No Alcohol intake: current Alcohol intake frequency: holidays/special occasions only Patient Tobacco Use Status: Former Tobacco user Quit Date: 3 weeks ago Tobacco use type: Cigarette Cigarette Packs Per Day: 1 Cigarettes Per Day: 20.0 Years Smoked: 28 Second Hand Smoke Exposure: Yes Use of substances other than those prescribed or required for medical reasons: No Substance Use Type: Marijuana Advance Directives: Yes Advance Directives on File: Yes Advance Directives Date on File: 04/17/21 service: No Current occupational status: employed Meds Allergies Allergy/AdvReac Type Severity Reaction Status Date / Time No Known Allergies Allergy Verified 06/01/21 12:42 [No Known Allergies*] Active Medications: Current Medications Acetaminophen (Acetaminophen 325 Mg Tablet) 650 mg PO Q6H PRN PRN Reason: Pain, Mild (Pain Scale 1-3) Aspirin (Aspirin 81 Mg Tab.Chew) 81 mg PO DAILY [facility] Atorvastatin Calcium (Atorvastatin Calcium 20 Mg Tablet) 20 mg PO BEDTIME [facility] Dextrose (Dextrose 50 % 25 Gm/50 Ml Vial) 25 gm IVPUSH Q15M PRN; Protocol PRN Reason: per Hypoglycemia Standing Ord. Enoxaparin Sodium (Enoxaparin Sodium 40 Mg/0.4 Ml Syringe) 40 mg SUBCUT Q24H [facility] Gabapentin (Gabapentin 600 Mg Tablet) 600 mg PO TID [facility] Glucose (Glucose Gel 15 Gm Gel..Gram.) 15 gm PO Q15M PRN; Protocol PRN Reason: per Hypoglycemia Standing Ord. Vancomycin HCl 1,250 mg/ (Sodium Chloride) 250 mls @ 166.667 mls/hr IV ONCE ONE Stop: 06/01/21 16:33 Sodium Chloride (Ns) 1,000 mls @ 999 mls/hr IVCONT .Q1H1M [facility] Stop: 06/01/21 16:45 Last Admin: 06/01/21 15:49 Dose: 999 mls/hr Documented by: Vancomycin HCl 1,000 mg/ (Sodium Chloride) 270 mls @ 270 mls/hr IV Q12H [facility] Piperacillin Sod/Tazobactam (Sod 3.375 gm/ Sodium Chloride) 50 mls @ 100 mls/hr IV Q6H [facility] Insulin Glargine (Insulin Glargine,Hum.Rec.Anlog 100 Unit/Ml 10 Ml Vial) 30 unit SUBCUT BEDTIME [facility] Insulin Human Lispro (Insulin Lispro 100 Unit/Ml 3 Ml Vial) 0 unit SUBCUT QIDACHS [facility]; Protocol Insulin Human Lispro (Insulin Lispro 100 Unit/Ml 3 Ml Vial) 5 unit SUBCUT TIDAC [facility] Metoprolol Succinate (Metoprolol Succinate Er 50 Mg Tab.Er.24h) 50 mg PO DAILY [facility]; Protocol Non-Formulary Medication (Empagliflozin [Jardiance]) 25 mg PO DAILY [facility] Pharmacy Consult (Consult Rx Perform Med Rec) 1 each MISCELLANE ONCE PRN PRN Reason: Consult order Pharmacy Consult (Consult Rx Vancomycin Dosing) 1 each MISCELLANE DAILY PRN PRN Reason: Consult order Sodium Chloride (0.9 % Sodium Chloride Flush 3 Ml Syringe) 3 ml IVFLUSH QSHIFT [facility] Ticagrelor (Ticagrelor 90 Mg Tablet) 90 mg PO BID [facility] Home Medications Medication Instructions Recorded Confirmed Last Taken Type metoprolol succinate 50 mg 1 tab PO DAILY 03/13/21 06/01/21 05/31/21 History tablet,extended release 24 hr ticagrelor 90 mg tablet (Brilinta) 1 tab PO BID 03/13/21 06/01/21 05/31/21 History atorvastatin 20 mg tablet 1 tab PO BEDTIME 03/24/21 06/01/21 05/31/21 History insulin glargine 100 unit/mL (3 30 unit SUBCUT BEDTIME ml 05/06/21 06/01/21 05/31/21 History mL) subcutaneous pen (Lantus Solostar U-100 Insulin) Physical Exam Vital Signs and Narrative: Vital Signs: Last Vital Signs Temp 97.7 F 06/01/21 16:00 Pulse 74 06/01/21 16:00 Resp 18 06/01/21 16:00 BP 139/68 06/01/21 16:00 Pulse Ox 100 06/01/21 16:00 Body Mass Index 30.8 General: no acute distress HEENT: atraumatic Neck: normal to visual inspection CVS: S1, S2, RRR Resp: CTA bilateral Chest: non tender GI: soft, non tender, non distended : no CVA tenderness Skin: left heel ulcer, right 1st toe ulcer (see pics) Extremities: no edema Neuro: Oriented X3, grossly intact Psych: cooperative Results Labs CBC and Chem 7: 06/01/21 13:59 06/01/21 13:59 Labs: Laboratory Results - last 24 hr 06/01/21 06/01/21 06/01/21 13:59 13:59 15:32 MCV 82.5 MCH 26.5 L MCHC 32.1 RDW 15.0 Plt Count 248 MPV 10.3 Immature Gran % (Auto) 0.8 H Neut % (Auto) 61.1 Lymph % (Auto) 22.9 Brown % (Auto) 8.2 Eos % (Auto) 6.3 H Baso % (Auto) 0.7 Lymph # (Auto) 2.7 Brown # (Auto) 1.0 Eos # (Auto) 0.8 H Baso # (Auto) 0.1 Abs Immat Gran (auto) 0.10 H Absolute Neuts (auto) 7.3 Absolute Nucleated RBC 0.000 Nucleated RBC % (auto) 0.0 ESR 28 H Anion Gap 13 Estim Creat Clear Calc 112.8 Estimated GFR > 60 Random Glucose 151 H Lactic Acid Calcium 9.4 Total Bilirubin 0.3 AST 17 ALT 21 Alkaline Phosphatase 92 C-Reactive Protein Total Protein 7.9 Albumin 4.2 COVID-19 ([facility]) COVID-19 Slicethepie 06/01/21 06/01/21 06/01/21 15:32 15:32 15:32 MCV MCH MCHC RDW Plt Count MPV Immature Gran % (Auto) Neut % (Auto) Lymph % (Auto) Brown % (Auto) Eos % (Auto) Baso % (Auto) Lymph # (Auto) Brown # (Auto) Eos # (Auto) Baso # (Auto) Abs Immat Gran (auto) Absolute Neuts (auto) Absolute Nucleated RBC Nucleated RBC % (auto) ESR Anion Gap Estim Creat Clear Calc Estimated GFR Random Glucose Lactic Acid 1.4 Calcium Total Bilirubin AST ALT Alkaline Phosphatase C-Reactive Protein 1.48 H Total Protein Albumin COVID-19 ([facility]) Negative COVID-19 Clin Com See Note Imaging Radiologist's Impressions: Impressions Foot X-Ray 06/01/21 13:18 IMPRESSION: Soft tissue defect posterior heel. No bony destructive process. Toe X-Ray 06/01/21 15:47 IMPRESSION: Question osteomyelitis of the distal tuft of the great toe. Adjacent soft tissue swelling and soft tissue defect suggestive of ulcer. No soft tissue foreign body seen. Assessment and Plan (1) Diabetic foot ulcer: Qualifiers: Diabetic foot ulcer location: heel Laterality: left Status: Acute (2) PAD (peripheral artery disease): Status: Acute 55M presented with non healing left heel ulcer and right 1st toe ulcer diabetic and vascular left heel and right 1st toe ulcers concern for OM non healing vanc, zosyn vascular eval gabapentin for neuropathic pain morphine for breakthrough does not think he can tolerate MRI, will defer to vascular for futher imaging PVD asa, brillinta, statin DM basal bolus insulin, monitor poc HTN metoprolol Quality Stroke Does the patient have a stroke diagnosis?: No VTE Prior VTE?: No VTE Risk Level:: Medical - moderate - high VTE Device Contraindication: Treatment Not Indicated VTE Drug Contraindication: N/A - Med Ordered
[2021-06-01] MEDS: vancomycin HCL 1,250 MG in 0.9 % Sodium Chloride 250 ML 166.67 MG IV (16:36)
[2021-06-01 17:39] LABS: Glucose, Whole Blood 141 mg/dL (60-115)
[2021-06-01] MEDS: Insulin Lispro 100 UNIT/ML 3 ML VIAL SUBCUT (17:43)
[2021-06-01 17:54] VITALS: BP 158/65; PULSE 68; RESP 18; TEMP 36.5; O2SAT 98
[2021-06-01 18:50] LABS: Appearance Urine CLEAR; Color Urine YELLOW; Glucose Urine UA >=1000 MG/DL (NEG); Leukocyte Esterase Urine NEG (NEG); Nitrite Urine NEG (NEG); Urine Blood NEG (NEG); Urine Ketones NEG (NEG); Urine Protein NEG (NEG-TRACE)
[2021-06-01 19:01] LABS: Mucus Urine TRACE /LPF; Squamous Epithelial Cell Urine 2+ /LPF
[2021-06-01 19:02] LABS: RBC Urine 0-2 /HPF (0); WBC Urine 0 /HPF (0-4)
[2021-06-01] MEDS: Enoxaparin Sodium 40 MG/0.4 ML SYRINGE SUBCUT (19:08)
[2021-06-01 19:28] VITALS: RESP 16
[2021-06-01] MEDS: Morphine Sulfate 2 MG/ML CARTRIDGE IVPUSH (19:28)
--- NOTE | 2021-06-01 21:15 | PC.NURSE ---
per hospitalist (Segun) pt ok to take Ticagrelor (Brillianta) after pt was given Lovenox earlier
[2021-06-01] MEDS: Ticagrelor 90 MG TABLET PO (21:19)
[2021-06-01] MEDS: Gabapentin 600 MG TABLET PO (21:19)
[2021-06-01] MEDS: Atorvastatin Calcium 20 MG TABLET PO (21:20)
[2021-06-01 21:24] VITALS: RESP 16
[2021-06-01 21:44] LABS: Glucose, Whole Blood 131 mg/dL (60-115)
--- NOTE | 2021-06-01 21:44 | MHC.CM.PN ---
CM met with admitted patient with bed assignment pending. A&Ox3. HCP on file. Ira Dukes () ([phone]). Pt has non-healing foot ulcer since 09/2020. Has been cared for at wound center. Pt states he has VNA services daily, but does not know what company. Pt lives with . Uses crutches. Has been unable to work [id number] secondary to ulceration on heel.Pt is fully vaccinated with Moderna. D/C plan depending on treatment plan. Pt may need home IV therapy. Transportation provided by family. CM to follow for d/c needs.
[2021-06-01] MEDS: Insulin Glargine,Hum.rec.anlog 100 UNIT/ML 10 ML VIAL 30 UNIT SUBCUT (21:52)
[2021-06-02] VITALS (13 sets, daily range): BP systolic 138–185; BP diastolic 61–90; PULSE 66–80; RESP 16–19; TEMP 36.4–36.7; O2SAT 95–100
[2021-06-02] MEDS: Morphine Sulfate 2 MG/ML CARTRIDGE IVPUSH ×3 (00:09→09:23)
--- NOTE | 2021-06-02 01:28 | PC.NURSE ---
pt c/o L heel pain, has morphine 2mg IVP ordered q3h prn, pt last got medication at 00:09 and is not due for next dose yet hospitalist notified about pt pain
[2021-06-02] MEDS: oxyCODONE HCl Immed Release 5 MG TABLET PO (01:49)
[2021-06-02] MEDS: Piperacillin Sodium/Tazobactam 3.375 GM in 0.9 % Sodium Chloride 50 ML IV ×4 (04:16→20:49)
[2021-06-02] MEDS: vancomycin HCL 1,250 MG in 0.9 % Sodium Chloride 250 ML 166.67 MG IV ×2 (06:39→17:59)
[2021-06-02 07:07] LABS: Hemoglobin 13.4 g/dl (14.0-18.0); Mean Corpuscular HGB Conc 31.9 g/dl (31.0-36.0); Mean Corpuscular Hemoglobin 26.3 pg (27.0-33.0); Mean Corpuscular Volume 82.5 fL (80-98); Mean Platelet Volume 10.4 fL (9.4-12.4); Platelet Count 215 X10*3/uL (160-400); Red Blood Count 5.09 X10*6/uL (4.60-5.80); Red Cell Distribution Width 14.7 % (11.0-16.0); White Blood Count 9.1 X10*3/uL (4.8-10.8)
[2021-06-02 07:21] LABS: Anion Gap 10 (12-20); Blood Urea Nitrogen 12 mg/dL (9-16); Calcium 8.8 mg/dL (8.4-10.2); Carbon Dioxide 27 mmol/L (22-29); Chloride 103 mmol/L (96-108); Creatinine Clr Calc Pharmacy 110.3; Estimated Glomerular Filt Rate > 60; Glucose Fasting 132 mg/dL (60-99); Potassium 4.1 mmol/L (3.3-5.1); Sodium 136 mmol/L (135-145)
[2021-06-02 08:38] LABS: Glucose, Whole Blood 177 mg/dL (60-115)
[2021-06-02] MEDS: Ticagrelor 90 MG TABLET PO ×2 (08:54→20:50)
[2021-06-02] MEDS: Metoprolol Succinate ER 50 MG TAB.ER.24H PO (08:54)
[2021-06-02] MEDS: Aspirin 81 MG TAB.CHEW PO (08:54)
[2021-06-02] MEDS: Gabapentin 600 MG TABLET PO ×3 (08:54→20:50)
[2021-06-02] MEDS: Insulin Lispro 100 UNIT/ML 3 ML VIAL SUBCUT ×4 (11:04→16:48)
--- NOTE | 2021-06-02 11:12 | PC.NURSE ---
new 18g l wrist placed. abx now infusing well.
--- NOTE | 2021-06-02 12:16 | P.PNIM_ITS ---
Subjective Subjective Date of Service: 06/02/21 Interval History: Being followed for nonhealing left heel ulcer, complaining of left heel burning pain not relieved with current pain medication asking for more pain meds, denies fever chills no other acute issues overnight. Review of Systems General no headache, no dizziness, no fever chills.? CVS no chest pain, no palpitation.? Respiratory no cough, no sob.? Gastrointestinal no nausea, no vomiting, no abdominal pain, no diarrhea Physical Exam Vital Signs: Vital Signs: Last Vital Signs Temp 97.7 F 06/01/21 17:54 Pulse 80 06/02/21 08:54 Resp 18 06/02/21 09:23 BP 183/61 H 06/02/21 08:54 Pulse Ox 98 06/01/21 17:54 Body Mass Index 30.8 Gen:? no acute distress Neck: supple Lungs: clear to auscultation bilaterally Heart: regular rate and rhythm, no murmurs Abd: soft, obese, non-tender, non-distended Left lower extremity, left heel ulcer with no drainage, dry ulcer tip of right big toe, no drainage Neuro: alert and oriented x3, no focal findings, decreased sensation both feet Psych: appropriate affect Objective Data Active Medications Acetaminophen (Acetaminophen 325 Mg Tablet) 650 mg PO Q6H PRN PRN Reason: Pain, Mild (Pain Scale 1-3) Aspirin (Aspirin 81 Mg Tab.Chew) 81 mg PO DAILY [facility] Last Admin: 06/02/21 08:54 Dose: 81 mg Documented by: ZULMA Atorvastatin Calcium (Atorvastatin Calcium 20 Mg Tablet) 20 mg PO BEDTIME [facility] Last Admin: 06/01/21 21:20 Dose: 20 mg Documented by: LISETTE Dextrose (Dextrose 50 % 25 Gm/50 Ml Vial) 25 gm IVPUSH Q15M PRN; Protocol PRN Reason: per Hypoglycemia Standing Ord. Docusate Sodium (Docusate Sodium 100 Mg Capsule) 200 mg PO DAILY [facility] Last Admin: 06/02/21 11:50 Dose: Not Given Documented by: ZULMA Non-Admin Reason: Patient Refused Enoxaparin Sodium (Enoxaparin Sodium 40 Mg/0.4 Ml Syringe) 40 mg SUBCUT Q24H [facility] Last Admin: 06/01/21 19:08 Dose: 40 mg Documented by: LISETTE Gabapentin (Gabapentin 600 Mg Tablet) 600 mg PO TID [facility] Last Admin: 06/02/21 08:54 Dose: 600 mg Documented by: ZULMA Glucose (Glucose Gel 15 Gm Gel..Gram.) 15 gm PO Q15M PRN; Protocol PRN Reason: per Hypoglycemia Standing Ord. Piperacillin Sod/Tazobactam (Sod 3.375 gm/ Sodium Chloride) 50 mls @ 100 mls/hr IV Q6H [facility] Last Admin: 06/02/21 11:50 Dose: 100 mls/hr Documented by: ZULMA Vancomycin HCl 1,250 mg/ (Sodium Chloride) 250 mls @ 166.667 mls/hr IV Q12H [facility] Last Infusion: 06/02/21 08:29 Dose: 0 mls/hr Documented by: ZULMA Insulin Glargine (Insulin Glargine,Hum.Rec.Anlog 100 Unit/Ml 10 Ml Vial) 30 unit SUBCUT BEDTIME [facility] Last Admin: 06/01/21 21:52 Dose: 30 unit Documented by: LISETTE Insulin Human Lispro (Insulin Lispro 100 Unit/Ml 3 Ml Vial) 0 unit SUBCUT QIDACHS [facility]; Protocol Last Admin: 06/02/21 11:04 Dose: 2 unit Documented by: ZULMA Insulin Human Lispro (Insulin Lispro 100 Unit/Ml 3 Ml Vial) 5 unit SUBCUT TIDAC [facility] Last Admin: 06/02/21 11:04 Dose: 5 unit Documented by: ZULMA Metoprolol Succinate (Metoprolol Succinate Er 50 Mg Tab.Er.24h) 50 mg PO DAILY [facility]; Protocol Last Admin: 06/02/21 08:54 Dose: 50 mg Documented by: ZULMA Morphine Sulfate (Morphine Sulfate 2 Mg/Ml Cartridge) 4 mg IVPUSH Q3H PRN; Protocol PRN Reason: pain Non-Formulary Medication (Empagliflozin [Jardiance]) 25 mg PO DAILY [facility] Oxycodone HCl (Oxycodone Hcl Immed Release 5 Mg Tablet) 10 mg PO Q4H PRN PRN Reason: Pain, Severe (Pain Scale 7-10) Pharmacy Consult (Consult Rx Perform Med Rec) 1 each MISCELLANE ONCE PRN PRN Reason: Consult order Pharmacy Consult (Consult Rx Vancomycin Dosing) 1 each MISCELLANE DAILY PRN PRN Reason: Consult order Sodium Chloride (0.9 % Sodium Chloride Flush 3 Ml Syringe) 3 ml IVFLUSH QSHIFT [facility] Last Admin: 06/02/21 11:05 Dose: Not Given Documented by: ZULMA Non-Admin Reason: IV Running Ticagrelor (Ticagrelor 90 Mg Tablet) 90 mg PO BID [facility] Last Admin: 06/02/21 08:54 Dose: 90 mg Documented by: ZULMA Labs CBC & Chem 7: 06/02/21 06:50 06/02/21 06:50 Labs: Laboratory Results - last 24 hr 06/01/21 06/01/21 06/01/21 13:59 13:59 15:32 MCV 82.5 MCH 26.5 L MCHC 32.1 RDW 15.0 Plt Count 248 MPV 10.3 Immature Gran % (Auto) 0.8 H Neut % (Auto) 61.1 Lymph % (Auto) 22.9 Brown % (Auto) 8.2 Eos % (Auto) 6.3 H Baso % (Auto) 0.7 Lymph # (Auto) 2.7 Brown # (Auto) 1.0 Eos # (Auto) 0.8 H Baso # (Auto) 0.1 Abs Immat Gran (auto) 0.10 H Absolute Neuts (auto) 7.3 Absolute Nucleated RBC 0.000 Nucleated RBC % (auto) 0.0 ESR 28 H Anion Gap 13 Estim Creat Clear Calc 112.8 Estimated GFR > 60 POC Glucose Random Glucose 151 H Fasting Glucose Lactic Acid Calcium 9.4 Total Bilirubin 0.3 AST 17 ALT 21 Alkaline Phosphatase 92 C-Reactive Protein Total Protein 7.9 Albumin 4.2 Urine Color Urine Appearance Urine pH Ur Specific [place] Urine Protein Urine Glucose (UA) Urine Ketones Urine Blood Urine Nitrite Ur Leukocyte Esterase Urine RBC Urine WBC Ur Squamous Epith Cells Urine Bacteria Urine Mucus COVID-19 ([facility]) COVID-19 Clin Com 06/01/21 06/01/21 06/01/21 15:32 15:32 15:32 MCV MCH MCHC RDW Plt Count MPV Immature Gran % (Auto) Neut % (Auto) Lymph % (Auto) Brown % (Auto) Eos % (Auto) Baso % (Auto) Lymph # (Auto) Brown # (Auto) Eos # (Auto) Baso # (Auto) Abs Immat Gran (auto) Absolute Neuts (auto) Absolute Nucleated RBC Nucleated RBC % (auto) ESR Anion Gap Estim Creat Clear Calc Estimated GFR POC Glucose Random Glucose Fasting Glucose Lactic Acid 1.4 Calcium Total Bilirubin AST ALT Alkaline Phosphatase C-Reactive Protein 1.48 H Total Protein Albumin Urine Color Urine Appearance Urine pH Ur Specific [place] Urine Protein Urine Glucose (UA) Urine Ketones Urine Blood Urine Nitrite Ur Leukocyte Esterase Urine RBC Urine WBC Ur Squamous Epith Cells Urine Bacteria Urine Mucus COVID-19 ([facility]) Negative COVID-19 Clin Com See Note 06/01/21 06/01/21 06/01/21 17:36 18:43 21:41 MCV MCH MCHC RDW Plt Count MPV Immature Gran % (Auto) Neut % (Auto) Lymph % (Auto) Brown % (Auto) Eos % (Auto) Baso % (Auto) Lymph # (Auto) Brown # (Auto) Eos # (Auto) Baso # (Auto) Abs Immat Gran (auto) Absolute Neuts (auto) Absolute Nucleated RBC Nucleated RBC % (auto) ESR Anion Gap Estim Creat Clear Calc Estimated GFR POC Glucose 141 H 131 H Random Glucose Fasting Glucose Lactic Acid Calcium Total Bilirubin AST ALT Alkaline Phosphatase C-Reactive Protein Total Protein Albumin Urine Color YELLOW Urine Appearance CLEAR Urine pH 6.0 Ur Specific [place] 1.020 Urine Protein NEG Urine Glucose (UA) >=1000 H Urine Ketones NEG Urine Blood NEG Urine Nitrite NEG Ur Leukocyte Esterase NEG Urine RBC 0-2 Urine WBC 0 Ur Squamous Epith Cells 2+ Urine Bacteria NONE Urine Mucus TRACE COVID-19 ([facility]) COVID-19 Clin Com 06/02/21 06/02/21 06/02/21 06:50 06:50 08:35 MCV 82.5 MCH 26.3 L MCHC 31.9 RDW 14.7 Plt Count 215 MPV 10.4 Immature Gran % (Auto) Neut % (Auto) Lymph % (Auto) Brown % (Auto) Eos % (Auto) Baso % (Auto) Lymph # (Auto) Brown # (Auto) Eos # (Auto) Baso # (Auto) Abs Immat Gran (auto) Absolute Neuts (auto) Absolute Nucleated RBC 0.000 Nucleated RBC % (auto) 0.0 ESR Anion Gap 10 L Estim Creat Clear Calc 110.3 Estimated GFR > 60 POC Glucose 177 H Random Glucose Fasting Glucose 132 H D Lactic Acid Calcium 8.8 D Total Bilirubin AST ALT Alkaline Phosphatase C-Reactive Protein Total Protein Albumin Urine Color Urine Appearance Urine pH Ur Specific [place] Urine Protein Urine Glucose (UA) Urine Ketones Urine Blood Urine Nitrite Ur Leukocyte Esterase Urine RBC Urine WBC Ur Squamous Epith Cells Urine Bacteria Urine Mucus COVID-19 ([facility]) COVID-19 Clin Com Assessment and Plan (1) Diabetic foot ulcer: Status: Acute (2) PAD (peripheral artery disease): Status: Acute (3) Non-healing ulcer of foot: Status: Acute (4) Intractable heel pain: Status: Acute (5) Chronic 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: Status: Acute (6) Type 2 diabetes mellitus with hyperglycemia: Status: Acute (7) Neuropathy: Status: Acute Assessment and Plan: 55yo M patient with DM2, CAD, and HTN multiple recurrent hospitalization for cellulitis from non-healing diabetic heel ulcer presenting with persistent pain, drainage and difficulty in ambulation # nonhealing left heel ulcer with surrounding cellulitis related to diabetes and vascular disease ?? Persistent Burning pain left foot, no fevers, wbc normalized, blood cultures x2 pending X-ray foot showed soft tissue defect posterior heel, no bony destruction, possible osteomyelitis of great toe ?? During last hospitalization bone scan showed no evidence of osteomyelitis, being followed by Dr. Sheppard as outpatient underwent debridement of left heel ulcer status post wound VAC on? IV vancomycin + piperacillin/tazobactam day 2 , will follow BMP and vancomycin trough with goal 15-[address] Sheppard input # left heel pain due to ulcer ,neuropathic pain, peripheral vascular disease ?? Continue gabapentin 600mg tid , will increase dose of oxycodone to 10 mg and increase dose of morphine to 4 mg as needed due to uncontrolled pain # CAD - continue ticagrelor, metoprolol,and atorvastatin # HTN - continue metoprolol, BP stable # DM2 - recent A1c 9.6, continue basal/bolus insulin , stable blood sugars cont Lantus 30 units, # VTE ppx - LMWH Quality Stroke Does the patient have a stroke diagnosis?: No VTE Prior VTE?: No VTE Risk Level:: Medical - moderate - high VTE Device Contraindication: Treatment Not Indicated VTE Drug Contraindication: N/A - Med Ordered
[2021-06-02 12:35] LABS: Glucose, Whole Blood 148 mg/dL (60-115)
[2021-06-02] MEDS: Morphine Sulfate 2 MG/ML CARTRIDGE 4 MG IVPUSH ×3 (14:30→20:57)
--- NOTE | 2021-06-02 14:43 | PC.NURSE ---
report given to pako
[2021-06-02] MEDS: 0.9 % Sodium Chloride Flush 3 ML SYRINGE IVFLUSH (15:26)
[2021-06-02 16:28] LABS: Glucose, Whole Blood 201 mg/dL (60-115)
[2021-06-02 16:43] LABS: Glucose, Whole Blood 230 mg/dL (60-115)
[2021-06-02] MEDS: oxyCODONE HCl Immed Release 5 MG TABLET 10 MG PO (16:47)
[2021-06-02] MEDS: Enoxaparin Sodium 40 MG/0.4 ML SYRINGE SUBCUT (16:48)
[2021-06-02] MEDS: diphenhydrAMINE HCL 25 MG TABLET PO (19:25)
[2021-06-02 20:03] LABS: Glucose, Whole Blood 139 mg/dL (60-115)
[2021-06-02] MEDS: Atorvastatin Calcium 20 MG TABLET PO (20:50)
[2021-06-02] MEDS: Insulin Glargine,Hum.rec.anlog 100 UNIT/ML 10 ML VIAL 30 UNIT SUBCUT (20:51)
[2021-06-03] MEDS: Morphine Sulfate 2 MG/ML CARTRIDGE 4 MG IVPUSH ×3 (03:11→11:53)
[2021-06-03] MEDS: 0.9 % Sodium Chloride Flush 3 ML SYRINGE IVFLUSH (03:12)
[2021-06-03] MEDS: Piperacillin Sodium/Tazobactam 3.375 GM in 0.9 % Sodium Chloride 50 ML IV ×2 (03:12→09:30)
[2021-06-03 04:00] VITALS: BP 104/58; PULSE 66; RESP 17; TEMP 36.7; O2SAT 98
[2021-06-03] MEDS: oxyCODONE HCl Immed Release 5 MG TABLET 10 MG PO ×2 (05:04→10:12)
[2021-06-03 05:39] LABS: Vancomycin Trough 9.7 mcg/mL (10.0-20.0)
--- NOTE | 2021-06-03 06:36 | HE.PHANOTE ---
Vancomycin Dosing Addendum Increased dose from 1250 mg q12h to 1500 mg q12h with predicted AUC of 533 and trough 15.7. Scr ordered.
[2021-06-03] MEDS: vancomycin HCL 1,500 MG in 0.9 % Sodium Chloride 500 ML 333.33 MG IV (06:44)
[2021-06-03 07:31] LABS: Glucose, Whole Blood 148 mg/dL (60-115)
[2021-06-03 07:32] VITALS: BP 162/75; PULSE 75; RESP 18; TEMP 36.8; O2SAT 98
[2021-06-03] MEDS: Ticagrelor 90 MG TABLET PO (07:36)
[2021-06-03] MEDS: Insulin Lispro 100 UNIT/ML 3 ML VIAL SUBCUT ×3 (07:36→12:00)
[2021-06-03] MEDS: Aspirin 81 MG TAB.CHEW PO (07:36)
[2021-06-03] MEDS: Gabapentin 600 MG TABLET PO (07:36)
[2021-06-03] MEDS: Metoprolol Succinate ER 50 MG TAB.ER.24H PO (07:36)
[2021-06-03 07:51] VITALS: RESP 18
[2021-06-03] MEDS: Docusate Sodium 100 MG CAPSULE 200 MG PO (07:55)
[2021-06-03 08:27] LABS: Estimated Glomerular Filt Rate > 60
--- NOTE | 2021-06-03 09:47 | PM.CNGS ---
History of Present Illness Consult details Consult date: 06/03/21 Reason for consult: wound care Narrative: Very pleasant 55-year-old gentleman well known to me for nonhealing diabetic foot ulcer. He has had prior debridements in antibiotic treatment. He noted that the pain became significantly worse over the last day or to. He was subsequently admitted for pain control. Notes that the leg has significantly decreased in swelling and discomfort overnight. He feels much better this morning. He is now for vascular evaluation. Review of Systems Review of Systems: Yes all other systems are reviewed and are negative Constitutional: Constitutional: Reports no additional constitutional complaints ENT: Reports Normal hearing present Cardiovascular: Cardiovascular: Denies chest pain, Denies chest pain at rest, Denies chest pain with activity and Denies pedal edema Respiratory: Respiratory: Denies cough Gastrointestinal: Gastrointestinal: Denies abdominal pain Musculoskeletal: Musculoskeletal: Denies abnormal gait, Denies muscle cramps and Denies radiating pain into limb Integumentary/Breasts: Skin/Breast: Denies skin ulcer and Denies wounds Neurologic: Reports Normal hearing present and Denies abnormal gait Psychiatric: Psychiatric: Reports no additional psychiatric complaints PMFSH Past Medical History Medical History Alcohol abuse Arthritis CAD (coronary artery disease) Chronic pancreatitis Diabetes mellitus with hyperglycemia, with long-term current use of insulin Essential hypertension Failure of outpatient treatment Hyperlipidemia Increased BMI Kidney calculus Type 2 diabetes mellitus with diabetic polyneuropathy Type 2 diabetes mellitus with hyperglycemia Family History Family History Mother MA (myocardial infarction), Onset Age: 64 Diabetes mellitus HTN (hypertension) Maternal Grandmother Diabetes mellitus Surgical History Surgical History Hx of heart artery stent Hx of lithotripsy Status post laparoscopic cholecystectomy Social History Social History Household Members: Family Household Members Other:: and daughter Housing: Apartment Do you presently have visiting nurse or other home services: Yes (for wound care) Alcohol intake: current Alcohol intake frequency: holidays/special occasions only Patient Tobacco Use Status: Former Tobacco user Quit Date: 3 weeks ago Tobacco use type: Cigarette Cigarette Packs Per Day: 1 Cigarettes Per Day: 20.0 Years Smoked: 28 Second Hand Smoke Exposure: Yes Substance Use Type: Marijuana Advance Directives Date on File: 04/17/21 service: No Current occupational status: employed Meds Allergies Allergy/AdvReac Type Severity Reaction Status Date / Time No Known Allergies Allergy Verified 06/01/21 12:42 [No Known Allergies*] Active Medications: Current Medications Acetaminophen (Acetaminophen 325 Mg Tablet) 650 mg PO Q6H PRN PRN Reason: Pain, Mild (Pain Scale 1-3) Aspirin (Aspirin 81 Mg Tab.Chew) 81 mg PO DAILY [facility] Last Admin: 06/03/21 07:36 Dose: 81 mg Documented by: Atorvastatin Calcium (Atorvastatin Calcium 20 Mg Tablet) 20 mg PO BEDTIME [facility] Last Admin: 06/02/21 20:50 Dose: 20 mg Documented by: Dextrose (Dextrose 50 % 25 Gm/50 Ml Vial) 25 gm IVPUSH Q15M PRN; Protocol PRN Reason: per Hypoglycemia Standing Ord. Diphenhydramine HCl (Diphenhydramine Hcl 25 Mg Tablet) 25 mg PO Q6H PRN PRN Reason: Itching Last Admin: 06/02/21 19:25 Dose: 25 mg Documented by: Docusate Sodium (Docusate Sodium 100 Mg Capsule) 200 mg PO DAILY [facility] Last Admin: 06/03/21 07:55 Dose: 200 mg Documented by: Enoxaparin Sodium (Enoxaparin Sodium 40 Mg/0.4 Ml Syringe) 40 mg SUBCUT Q24H [facility] Last Admin: 06/02/21 16:48 Dose: 40 mg Documented by: Gabapentin (Gabapentin 600 Mg Tablet) 600 mg PO TID [facility] Last Admin: 06/03/21 07:36 Dose: 600 mg Documented by: Glucose (Glucose Gel 15 Gm Gel..Gram.) 15 gm PO Q15M PRN; Protocol PRN Reason: per Hypoglycemia Standing Ord. Piperacillin Sod/Tazobactam (Sod 3.375 gm/ Sodium Chloride) 50 mls @ 100 mls/hr IV Q6H [facility] Last Admin: 06/03/21 09:30 Dose: 100 mls/hr Documented by: Vancomycin HCl 1,500 mg/ (Sodium Chloride) 500 mls @ 333.333 mls/hr IV Q12H [facility] Last Infusion: 06/03/21 08:25 Dose: Infused Documented by: Insulin Glargine (Insulin Glargine,Hum.Rec.Anlog 100 Unit/Ml 10 Ml Vial) 30 unit SUBCUT BEDTIME [facility] Last Admin: 06/02/21 20:51 Dose: 30 unit Documented by: Insulin Human Lispro (Insulin Lispro 100 Unit/Ml 3 Ml Vial) 0 unit SUBCUT QIDACHS [facility]; Protocol Last Admin: 06/03/21 07:46 Dose: Not Given Documented by: Insulin Human Lispro (Insulin Lispro 100 Unit/Ml 3 Ml Vial) 5 unit SUBCUT TIDAC [facility] Last Admin: 06/03/21 07:36 Dose: 5 unit Documented by: Metoprolol Succinate (Metoprolol Succinate Er 50 Mg Tab.Er.24h) 50 mg PO DAILY [facility]; Protocol Last Admin: 06/03/21 07:36 Dose: 50 mg Documented by: Morphine Sulfate (Morphine Sulfate 2 Mg/Ml Cartridge) 4 mg IVPUSH Q3H PRN; Protocol PRN Reason: pain Last Admin: 06/03/21 07:51 Dose: 4 mg Documented by: Non-Formulary Medication (Empagliflozin [Jardiance]) 25 mg PO DAILY [facility] Oxycodone HCl (Oxycodone Hcl Immed Release 5 Mg Tablet) 10 mg PO Q4H PRN PRN Reason: Pain, Severe (Pain Scale 7-10) Last Admin: 06/03/21 05:04 Dose: 10 mg Documented by: Pharmacy Consult (Consult Rx Perform Med Rec) 1 each MISCELLANE ONCE PRN PRN Reason: Consult order Pharmacy Consult (Consult Rx Vancomycin Dosing) 1 each MISCELLANE DAILY PRN PRN Reason: Consult order Sodium Chloride (0.9 % Sodium Chloride Flush 3 Ml Syringe) 3 ml IVFLUSH QSHIFT [facility] Last Admin: 06/03/21 07:37 Dose: Not Given Documented by: Ticagrelor (Ticagrelor 90 Mg Tablet) 90 mg PO BID [facility] Last Admin: 06/03/21 07:36 Dose: 90 mg Documented by: Home Medications Medication Instructions Recorded Confirmed Last Taken Type metoprolol succinate 50 mg 1 tab PO DAILY 03/13/21 06/01/21 05/31/21 History tablet,extended release 24 hr ticagrelor 90 mg tablet (Brilinta) 1 tab PO BID 03/13/21 06/01/21 05/31/21 History atorvastatin 20 mg tablet 1 tab PO BEDTIME 03/24/21 06/01/21 05/31/21 History insulin glargine 100 unit/mL (3 30 unit SUBCUT BEDTIME ml 05/06/21 06/01/21 05/31/21 History mL) subcutaneous pen (Lantus Solostar U-100 Insulin) Physical Exam Vital Signs: Vital Signs: Last Vital Signs Temp 98.2 F 06/03/21 07:32 Pulse 75 06/03/21 07:32 Resp 18 06/03/21 07:51 BP 162/75 H 06/03/21 07:32 Pulse Ox 98 06/03/21 07:32 Body Mass Index 30.8 Const: General: cooperative, healthy appearing and comfortable Orientation/consciousness: oriented to person, oriented to place and oriented to time HENMT: Head: Yes normal to inspection Neck: Neck: Yes normal visual inspection Carotids: no bruits Chest: Chest palpation & inspection: normal inspection of the chest Resp: Effort & Inspection: normal respiratory effort and able to speak in complete sentences Auscultation: clear to auscultation bilaterally, no crackles, no rales, no rhonchi and no wheezes Cardio: Rate: regular rate Rhythm: regular rhythm Heart sounds: S1 normal heart sound present and S2 normal heart sound present Bruits: no carotid bruits Peripheral pulses: Peripheral pulses 2+ throughout GI: Inspection: Yes normal to inspection Skin: Other: Ulcer right great toe and left heel Wounds: wounds noted Hair: normal Neuro: General: oriented to person, oriented to place and oriented to time Cranial nerves: Yes CN's II-XII intact bilaterally and Yes Normal hearing present Cognition (Neuro): normal cognition Motor exam (neuro): 5/5 motor strength present throughout Extrem: Other: venous exam: No significant superficial varicosities or spider telangiectasias, minimal edema General: No clubbing, No cyanosis and No edema Psych: Appearance: grossly normal Mental Status: mental status grossly normal Speech and movement: Normal speech and movement present Results Labs Result diagrams: 06/02/21 06:50 06/03/21 07:44 Labs: Abnormal lab results 06/02/21 06/02/21 06/02/21 Range/Units 12:30 15:10 16:38 POC Glucose 148 H 201 H 230 H (60-115) mg/dL Vancomycin Trough (10.0-20.0) mcg/mL 10/06/21 10/07/21 10/07/21 Range/Units 19:56 04:59 07:16 POC Glucose 139 H 148 H (60-115) mg/dL Vancomycin Trough 9.7 L (10.0-20.0) mcg/mL BMP 06/03/21 07:44 Creatinine 0.82 Urine 06/01/21 Range/Units 18:43 Urine Color YELLOW Urine Appearance CLEAR Urine pH 6.0 (5.0-8.0) Ur Specific [place] 1.020 (1.005-1.025) Urine Protein NEG (NEG-TRACE) MG/DL Urine Glucose (UA) >=1000 H (NEG) MG/DL All other labs normal. Imaging Additional studies: Plain film x-ray of toe and heel reviewed written report and images Assessment and Plan (1) PAD (peripheral artery disease): Status: Acute At the current time pain control seems to be the biggest issue. The left heel the calcaneus is intact and there is overlying coverage tissue. My fear is if I go to debrided further calcaneus will be exposed. At the current time would continue with conservative measures including pain control and antibiotics. We will monitor this patient with you. Stable from my perspective for discharge with pain control. Procedures Date of Service Date of Service: 06/03/21
--- NOTE | 2021-06-03 10:23 | MHC.CM.PN ---
CM CONTACTED PT'S DTR MELI AT 10:15AM [phone] TO DETERMIN IF SHE WOULD BE ABLE TO ASSIST PT IF HE NEEDS IV ABX AT HOME AND TO VERIFY VNA SERVICE. PER MELI SHE IS ABLE AND WILLING TO LEARN HOW TO ADMIN IV ABX AND WOULD LIKE A TEACH W/OPTION CARE PRIOR TO PT D/C. MELI IS NOT AT HOME AND COULD NOT RECALL NAME OF VNA HOWEVER WILL LOOK AND REQUESTED CM CALL HER BACK BETWEEN 1-2PM TO DISCUSS PT'S NEEDS. THIS CM WILL CONTACT PT'S DTR LATER TODAY.
--- NOTE | 2021-06-03 10:41 | PC.NURSE ---
Skin/Wound assessment completed. Patient has a left heel diabetic ulcer. It was debrided [address] Sheppard. Triad applied to wound bed covered with gauze and roll gauze. There is dry eschar on right great toe open to air. no other skin issues noted at this time.
[2021-06-03 11:32] LABS: Glucose, Whole Blood 160 mg/dL (60-115)
[2021-06-03 11:33] VITALS: BP 159/75; PULSE 69; RESP 17; TEMP 37.2; O2SAT 98
--- NOTE | 2021-06-03 13:30 | MHC.CM.PN ---
Addendum entered by Martina Ford RN 06/03/21 14:39: PER PCP PT IS ACTIVE W/[facility], REFERRAL SENT VIA [employer] Original Note: PT DISCHARGING HOME W/RESUMPTION OF VNA SERVICES AND [facility], PT'S TO TRANSPORT. CM STILL WORKING ON FINDING NAME OF WHICH VNA PT HAS BEEN USING, CM SENT OUT 25 REFERRALS W/NO ONE REPORTING PT IS UNDER THEIR CARE, CM CONTACTED PT'S DTR MELI THIS MORNING AT 11:10AM AT NUMBER ON FILE AND SHE ASKED CM TO CALL HER BACK BETWEEN 1-2PM, CM ATTEMPTED TO CALL DTR AGAIN W/NO ANSWER, CM ATTEMPTED TO CONTACT PT'S DEANDRE AT NUMBER IN PREVIOUS CM'S NOTE HOWEVER THERE WAS NO ANSWER, CM RECEIVED CALL BACK FROM DTR MELI WHILE WRITING THIS AND SHE REPORTED SHE IS NOT HOME YET AND WILL CONTACT CM ONCE HOME AND CAN LOOK UP INFO. CM HAS CALLED ALL VNAS THAT HAVE NOT RESPONDED [facility]IA [employer], DTR DID REPORT VNA COMES DAILY FOR DRESSING CHANGES, CM WILL CONTACT VNA ONCE VNA IS OBTAINED
--- NOTE | 2021-06-03 16:34 | PM.DS ---
DS: Providers Provider Date of Service: 06/03/21 Date of admission: 06/01/21 16:28 Primary care physician: Shanta Haney MD Consults: 06/01/21 16:27 Consult to Vascular Surgery Routine Consulting Provider: Berto Sheppard Reason for consultation: DFU/PVD DS: Diagnosis Discharge Diagnosis (1) PAD (peripheral artery disease): Status: Acute DS: Summary Hospital Course Hospital Course: History of presenting illness Chief Complaint: painful non healing ulcer 55M? sent in from wound clinic for non healing left heel ulcer. ulcer began sep 2020. has been treated with antibiotics, debridement, revascularalization, has had woundvac.? ulcer has not improved, continue to be painful with discharge, pain is 9/10, constant, worse with ambulation, unable to bear weight, improved with pain meds. denies fever, chills, sob, chest. has right 1st toe dry ulcer, he states this has improved over the same time. in ED xray of heel ulcer not definitive for OM, toe xray suspicious for OM. given vanc/zosyn. Hospital course 55yo M patient with DM2, CAD, and HTN multiple recurrent hospitalization for cellulitis from non-healing diabetic heel ulcer presenting with persistent pain, drainage and difficulty in ambulation, patient diagnosed to have nonhealing left heel ulcer with surrounding cellulitis related to diabetes and vascular disease patient treated with IV vancomycin and Zosyn, blood cultures x2 came back negative WBC normalized patient has had no fevers, Due to intractable burning pain left heel patient treated with IV morphine and oxycodone with good relief in symptoms, patient seen by vascular surgery Dr. Sheppard he recommended no further debridement, therefore patient is being discharged home on 10 days of by mouth doxycycline and recommended to have outpatient follow-up with wound clinic and VNA services for dressing change, will discharge patient home on Percocet 7.5/325 mg total lumbar 30 tablets dispensed, recommend outpatient follow-up with primary care physician for continued pain management since patient unable to sleep and ambulate due to severe pain, patient is not a candidate for NSAID since on Brilinta. ?? In regard to chronic medical issues including coronary artery disease, hypertension and diabetes he has been recommended to continue all home medications and follow diabetic diet since recently noted to have elevated hemoglobin A1c of 9.6 Time Spent with Patient Time attestation: Total time spent providing and/or coordinating discharge services: Discharge coordination time: Greater than 30 minutes Quality: Stroke Does the patient have a stroke diagnosis?: No Physical Exam Vital Signs: Vital Signs: Last Vital Signs Temp 98.9 F 06/03/21 11:33 Pulse 69 06/03/21 11:33 Resp 17 06/03/21 11:33 BP 159/75 H 06/03/21 11:33 Pulse Ox 98 06/03/21 11:33 Body Mass Index 30.8 Gen:? no acute distress Neck: supple Lungs: clear to auscultation bilaterally Heart: regular rate and rhythm, no murmurs Abd: soft, obese, non-tender, non-distended Left lower extremity, left heel ulcer with no drainage, dry ulcer tip of right big toe, no drainage, no redness surrounding ulcer Neuro: alert and oriented x3, no focal findings, decreased sensation both feet Psych: appropriate affect DS: Data Data Completed and Pending Completed studies during hospitalization [Text1]: Procedures Dilation of Right Ureter with Intraluminal Device, Via Natural or Artificial Opening Endoscopic (06/21/20) Extirpation of Matter from Right Ureter, Via Natural or Artificial Opening Endoscopic (06/21/20) Fluoroscopy of Right Kidney, Ureter and Bladder (06/21/20) Labs on day of discharge: Laboratory Results - last 24 hr 06/02/21 06/02/21 06/03/21 16:38 19:56 04:59 Creatinine Estim Creat Clear Calc Estimated GFR POC Glucose 230 H 139 H Vancomycin Trough 9.7 L 06/03/21 06/03/21 06/03/21 07:16 07:44 11:24 Creatinine 0.82 Estim Creat Clear Calc 117.0 Estimated GFR > 60 POC Glucose 148 H 160 H Vancomycin Trough Preliminary micro results at discharge 06/01/21 13:59 Blood Culture - Preliminary Blood - Venous No growth after 48 hours. 06/01/21 13:52 Blood Culture - Preliminary Blood - Venous No growth after 48 hours. Discharge Plan Discharge Patient Disposition: Home Health Service Discharge Diagnosis: Right heel nonhealing ulcer Intractable right heel pain Referrals: Shanta Haney MD [Primary Care Provider] - 1 Week Discharge Medications: New oxycodone-acetaminophen [Percocet] 7.5-325 mg tablet 1 tab PO Q6H PRN (Reason: severe pain (scale score 7-10)) Qty: 30 RF: 0 doxycycline monohydrate 100 mg capsule 100 mg PO BID Qty: 20 RF: 0 Continued (DME) Ultra-Light Rollator Misc See Rx Instructions .ROUTE .MEDSUPPLY Qty: 1 RF: 0 metoprolol succinate 50 mg tablet extended release 24 hr 1 tab PO DAILY RF: 0 Brilinta 90 mg tablet 1 tab PO BID RF: 0 atorvastatin 20 mg tablet 1 tab PO BEDTIME RF: 0 (DME) lancets [FreeStyle Lancets] 28 gauge misc See Rx Instructions .ROUTE .MEDSUPPLY Qty: 100 RF: 1 Jardiance 25 mg tablet 25 mg PO QAM Qty: 30 RF: 5 insulin lispro [Humalog KwikPen Insulin] 100 unit/mL insulin pen 17 unit SUBCUT BIDAC Qty: 15 RF: 5 Lantus Solostar U-100 Insulin 100 unit/mL (3 mL) insulin pen 30 unit subcut BEDTIME RF: 0 gabapentin 600 mg tablet 600 mg PO TID Qty: 90 RF: 4 aspirin 81 mg tablet,chewable 81 mg PO DAILY Qty: 30 RF: 5 ondansetron HCl 4 mg tablet 4 mg PO Q8H PRN (Reason: nausea and vomiting) Qty: 10 RF: 0 (DME) blood-glucose meter [FreeStyle Lite Meter] Kit See Rx Instructions .ROUTE .MEDSUPPLY Qty: 1 RF: 0 (DME) FreeStyle Lite Strips Strip See Rx Instructions .ROUTE .MEDSUPPLY Qty: 100 RF: 11 (DME) lancets [FreeStyle Lancets] 28 gauge misc See Rx Instructions .ROUTE .MEDSUPPLY Qty: 100 RF: 11 (DME) pen needle, diabetic [BD Ultra-Fine Michelle Pen Needle] 32 gauge x 5/32 needle See Rx Instructions .ROUTE .MEDSUPPLY Qty: 125 RF: 6 Discharge Orders: Discharge Order (Routine); Ordered 06/03/21 Ordered By: Steve Toribio Diet: diabetic diet Activity on Discharge: As tolerated Stand Alone Forms: Patient Portal Discharge page Care Plan Goals: Continue left heel dressing as per VNA, follow-up with wound clinic and primary care physician for pain management Health Concerns: Diabetes mellitus follow diabetic diet and continue home medication Plan of Treatment: Outpatient follow-up with primary care physician, wound clinic and Dr. Sheppard in next 1-2 weeks. Assessment: As above Discharge Date/Time: 06/03/21 13:53
== END 2021-06-03 13:53 | disposition home health service (06) | DRG 380 ==
LOC: HO.ED 15:04 → HO.EDOVER 16:34 → HO.S3 06-02 14:28
PROVIDERS: Physician Assistant; Admitting Provider Internal Medicine; Emergency Provider Emergency Medicine; PCP Internal Medicine; Visit Provider Hospitalist
DX: E11.621 Type 2 diabetes mellitus with foot ulcer (principal); L97.519 Non-pressure chronic ulcer of other part of right foot with unspecified severity; L97.429 Non-pressure chronic ulcer of left heel and midfoot with unspecified severity; E11.42 Type 2 diabetes mellitus with diabetic polyneuropathy; E11.51 Type 2 diabetes mellitus with diabetic peripheral angiopathy without gangrene; I25.10 Atherosclerotic heart disease of native coronary artery without angina pectoris; E11.65 Type 2 diabetes mellitus with hyperglycemia; Z87.442 Personal history of urinary calculi; Z20.822 Contact with and (suspected) exposure to COVID-19; Z87.891 Personal history of nicotine dependence; Z79.4 Long term (current) use of insulin; Z79.82 Long term (current) use of aspirin; Z79.899 Other long term (current) drug therapy
CPT/HCPCS: 36415; 73620; 73660; 80048; 80053; 80202; 81001; 82565; 82947; 83605; 85025; 85027; 85652; 86140; 87040; 87635; 99285; J1650; J2270; J2543; J3370; Q0163

== ENCOUNTER 2021-06-11 16:32 | Outpatient (REF) | payer OTHER, SELFPAY | END 2021-06-11 16:33 | disposition home or self-care (01) | LOC: HO.MRI 16:32 | PROVIDERS: Visit Provider Physician Assistant | DX: Z13.89 Encounter for screening for other disorder (principal) ==

== ENCOUNTER → 2021-07-06 15:02 | Outpatient (BNVA) | payer OTHER, SELFPAY | PROVIDERS: PCP Internal Medicine; Visit Provider Surgery Vascular Surgery | DX: I73.9 Peripheral vascular disease, unspecified (principal) | CPT/HCPCS: 99212 ==

== ENCOUNTER 2021-07-20 13:46 | Outpatient (REF) | payer OTHER, SELFPAY ==
--- NOTE | ~2021-07-20 | US_ITS ---
EXAMINATION: US NONINVASIVE ASSESSMENT OF THE ARTERIES OF BOTH LOWER EXTREMITIES WITH ANKLE PRESSURE MEASUREMENTS, ANKLE BRACHIAL INDICES, PVR MEASUREMENTS AND BILATERAL LOWER EXTREMITY DUPLEX CLINICAL INFORMATION: Claudication. TECHNIQUE: Ankle pressure measurements, ankle brachial indices and PVR tracings were obtained of the lower extremity arterial system bilaterally. In addition, duplex Doppler techniques with wave form analysis and measurement of velocities in the common femoral, profunda femoral, superficial femoral, popliteal and tibial arteries was performed. The study was performed only at rest. COMPARISON: Bilateral lower extremity arterial duplex ultrasound on 03/26/2021. FINDINGS: NONINVASIVE ASSESSMENT OF THE ARTERIES OF BOTH LOWER EXTREMITIES WITH ABIs: RIGHT LEG: Right ankle-brachial index: 1.27 Right ankle (DP) pressure: 217 mmHg PVR (ankle): Dampened LEFT LEG: Ankle-brachial index: 1.18 Left ankle (DP) pressure: 202 mmHg PVR (ankle): Irregular BILATERAL LOWER EXTREMITY DUPLEX ULTRASOUND: RIGHT LEG: Common femoral artery: 50.3 cm/s, Diastolic flow reversal: Yes Profunda femoris artery: 62.1 cm/s, Diastolic flow reversal: Yes Superficial femoral artery (proximal): 46.8 cm/s, Diastolic flow reversal: Yes Superficial femoral artery (mid): 66.4 cm/s, Diastolic flow reversal: Yes Superficial femoral artery (distal): 112 cm/s, Diastolic flow reversal: Yes Popliteal artery: 76.6 cm/s, Diastolic flow reversal: Yes Posterior tibial artery: 15.1 cm/s, Diastolic flow reversal: No LEFT LEG: Common femoral artery: 89.7 cm/s, Diastolic flow reversal: No Profunda femoris artery: 57 cm/s, Diastolic flow reversal: Yes Superficial femoral artery (proximal): 123 cm/s, Diastolic flow reversal: Yes Superficial femoral artery (mid): 95.6 cm/s, Diastolic flow reversal: Yes Superficial femoral artery (distal): 140 cm/s, Diastolic flow reversal: Yes Popliteal artery: 1:30 cm/s, Diastolic flow reversal: Yes Posterior tibial artery: 39.8 cm/s, Diastolic flow reversal: No US/US arterial duplex LE BI IMPRESSION: RIGHT LEG: ABHILASH 1.27, likely artificially elevated due to vessel noncompressibility. No hemodynamically significant outflow stenosis identified on duplex. LEFT LEG: ABHILASH 1.18, likely artificially elevated due to vessel noncompressibility. No hemodynamically significant outflow stenosis identified on duplex. ABHILASH Reference: - >0.97-1.25 = normal - no significant arterial disease - 0.75-0.96 = mild peripheral arterial disease - 0.5-0.74 = moderate peripheral arterial disease - <0.50 = severe peripheral arterial disease
== END 2021-07-20 13:47 | disposition home or self-care (01) ==
LOC: HO.US 13:46
PROVIDERS: PCP Internal Medicine; Visit Provider Surgery Vascular Surgery
DX: I70.213 Atherosclerosis of native arteries of extremities with intermittent claudication, bilateral legs (principal)
CPT/HCPCS: 93923; 93925

== ENCOUNTER → 2021-07-29 13:12 | Outpatient (BNVA) | payer OTHER, SELFPAY | PROVIDERS: PCP Internal Medicine; Visit Provider Surgery Vascular Surgery | DX: E11.621 Type 2 diabetes mellitus with foot ulcer (principal); L97.509 Non-pressure chronic ulcer of other part of unspecified foot with unspecified severity; I73.9 Peripheral vascular disease, unspecified | CPT/HCPCS: 99212 ==

== ENCOUNTER 2021-08-09 09:22 | Day surgery (SDC) | payer OTHER, SELFPAY ==
--- NOTE | 2021-08-06 11:44 | HO.ANESPROP2 ---
Documented by User: Miracle Li NP 08/06/21 11:46 HPI - Anesthesia Eval Consult details Narrative: 56yo M for Right Great Toe Amputation s/p L heel debrid 04/2021 with TIVA PMFSH Active Problems Active Problems: All Active Problems (Updated 06/17/21 @ 11:59 by Shanta Haney MD) Intractable left heel pain (Acute) Diabetic foot ulcer (Acute) Diabetic foot ulcer (Acute) PAD (peripheral artery disease) (Acute) Non-healing ulcer of foot (Acute) Intractable heel pain (Acute) Diabetic foot ulcer (Acute) Cellulitis of left foot (Acute) Ulcer of left heel (Acute) Cellulitis (Acute) Chronic pancreatitis (Acute) Diabetes mellitus with hyperglycemia, with long-term current use of insulin (Acute) Plantar fasciitis (Acute) Calculus of distal right ureter (Acute) Plantar fasciitis (Acute) Hx of heart artery stent (Acute) Arthritis (Acute) Increased BMI (Acute) Status post laparoscopic cholecystectomy (Acute) Past Medical History Medical History Alcohol abuse Arthritis CAD (coronary artery disease) Chronic pancreatitis Chronic 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 Diabetes mellitus with hyperglycemia, with long-term current use of insulin Essential hypertension Failure of outpatient treatment Hyperlipidemia Increased BMI Intractable left heel pain Kidney calculus Neuropathy Type 2 diabetes mellitus with diabetic polyneuropathy Type 2 diabetes mellitus with hyperglycemia Family History Family History Mother [place] (myocardial infarction), Onset Age: 64 Diabetes mellitus HTN (hypertension) Maternal Grandmother Diabetes mellitus Family history of problems with anesthesia: No Surgical History Surgical History (Updated 08/09/21 @ 09:43 by Mitra Adams RN) Hx of heart artery stent Hx of lithotripsy S/P debridement Status post laparoscopic cholecystectomy History of Problems with Anesthesia: No Social History Social History Household Members: Family Household Members Other:: and daughter Housing: Apartment Do you presently have visiting nurse or other home services: Yes (for wound care) Alcohol intake: current Alcohol intake frequency: holidays/special occasions only Patient Tobacco Use Status: Former Tobacco user Quit Date: 3 weeks ago Tobacco use type: Cigarette Cigarette Packs Per Day: 1 Cigarettes Per Day: 20.0 Years Smoked: 28 Second Hand Smoke Exposure: Yes Use of substances other than those prescribed or required for medical reasons: No Substance Use Type: Marijuana Are you DNR?: No Advance Directives: No Advance Directives Information Provided: Yes Advance Directives Date on File: 04/17/21 service: No Current occupational status: employed Meds Allergies Allergy/AdvReac Type Severity Reaction Status Date / Time No Known Allergies Allergy Verified 07/29/21 13:22 [No Known Allergies*] Home Medications Medication Instructions Recorded Confirmed Last Taken Type atorvastatin 20 mg tablet 1 tab PO BEDTIME 03/24/21 06/18/21 05/31/21 History insulin glargine 100 unit/mL (3 30 unit SUBCUT BEDTIME ml 05/06/21 06/18/21 05/31/21 History mL) subcutaneous pen (Lantus Solostar U-100 Insulin) Exam Exam Date and Time: August 06, 2021 1144 Pertinent Lab Results Pertinent Lab Results: Laboratory Tests 06/02/21 06/02/21 06/03/21 06:50 06:50 07:44 WBC 9.1 Hgb 13.4 L Hct 42.0 Plt Count 215 Sodium 136 Potassium 4.1 Chloride 103 Carbon Dioxide 27 BUN 12 Creatinine 0.82 Narrative Narrative: EKG 12/2020 Sinus rhythm, right bundle-branch block left anterior fascicular block, QTC 447 milliseconds, LVH Assessment and Plan Assessment Anesthesia Assessment: Chart Reviewed Final Anesthetic Review Family History of Problems with Anesthesia: No History of Problems with Anesthesia: No Documented by User: Jayme Velasco MD 08/09/21 10:44 [facility] Past Medical History Medical History Alcohol abuse Arthritis CAD (coronary artery disease) Chronic pancreatitis Chronic 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 Diabetes mellitus with hyperglycemia, with long-term current use of insulin Essential hypertension Failure of outpatient treatment Hyperlipidemia Increased BMI Intractable left heel pain Kidney calculus Neuropathy Type 2 diabetes mellitus with diabetic polyneuropathy Type 2 diabetes mellitus with hyperglycemia Family History Family History Mother [place] (myocardial infarction), Onset Age: 64 Diabetes mellitus HTN (hypertension) Maternal Grandmother Diabetes mellitus Surgical History Surgical History (Updated 08/09/21 @ 09:43 by Mitra Adams RN) Hx of heart artery stent Hx of lithotripsy S/P debridement Status post laparoscopic cholecystectomy Social History Social History Household Members: Family Household Members Other:: and daughter Housing: Apartment Do you presently have visiting nurse or other home services: Yes (for wound care) Alcohol intake: current Alcohol intake frequency: holidays/special occasions only Patient Tobacco Use Status: Former Tobacco user Quit Date: 3 weeks ago Tobacco use type: Cigarette Cigarette Packs Per Day: 1 Cigarettes Per Day: 20.0 Years Smoked: 28 Second Hand Smoke Exposure: Yes Use of substances other than those prescribed or required for medical reasons: No Substance Use Type: Marijuana Are you DNR?: No Advance Directives: No Advance Directives Information Provided: Yes Advance Directives Date on File: 04/17/21 service: No Current occupational status: employed Meds Allergies Allergy/AdvReac Type Severity Reaction Status Date / Time No Known Allergies Allergy Verified 07/29/21 13:22 [No Known Allergies*] Home Medications Medication Instructions Recorded Confirmed Last Taken Type atorvastatin 20 mg tablet 1 tab PO BEDTIME 03/24/21 06/18/21 05/31/21 History insulin glargine 100 unit/mL (3 30 unit SUBCUT BEDTIME ml 05/06/21 06/18/21 05/31/21 History mL) subcutaneous pen (Lantus Solostar U-100 Insulin) Exam Airway Mallampati Class: II Denture: Upper and Lower Heart: ok Lungs: ok Assessment and Plan Final Anesthetic Review ASA Class: IV Final Preanesthetic Review: No Changes in Pt Med Stat, Meds/Allgs Chart Reviewed, Consent Obtained/Reviewed and Anes Risks/Benef Reviewed Patient Risk: High Procedure Risk: Low Anesthetic Plan Anesthetic Plan: GA, MAC: and Agree w/ Assess. and Plan Disposition: Standard PACU
[2021-08-09] VITALS (11 sets, daily range): BP systolic 130–169; BP diastolic 71–94; PULSE 69–83; RESP 14–18; TEMP 36.7–37; O2SAT 96–98; BMI 32.3
--- NOTE | 2021-08-09 10:10 | MHC.SHP ---
Pre-Procedural Eval Section A Date of Service: 08/09/21 The patient is an INPATIENT: No The History & Physical has been completed within 30 days and I have reviewed it.: Yes Section B Chief Complaint: Non Pressure Chronic Ulcer Allergies: Allergies Allergy/AdvReac Type Severity Reaction Status Date / Time No Known Allergies Allergy Verified 07/29/21 13:22 [No Known Allergies*] Plan I have reviewed the history and physical and performed a pertinent physical examination on my patient. No changes have occurred unless specified.
[2021-08-09] MEDS: Lactated Ringers 1,000 ML 50 ML IVCONT (10:17)
--- NOTE | 2021-08-09 10:45 | MHC.SHP ---
Pre-Procedural Eval Section A Date of Service: 08/09/21 The patient is an INPATIENT: No Section B Chief Complaint: Non Pressure Chronic Ulcer Allergies: Allergies Allergy/AdvReac Type Severity Reaction Status Date / Time No Known Allergies Allergy Verified 07/29/21 13:22 [No Known Allergies*] Plan Diagnosis/Plan: Change (right great toe and left heel debridement) I have reviewed the history and physical and performed a pertinent physical examination on my patient. No changes have occurred unless specified.
--- NOTE | 2021-08-09 11:23 | PC.NURSE ---
md made aware of need for orders. order for procedure put in but no antibiotic. product strategy director spoke with md and pulled abx herself.
[2021-08-09 11:36] LABS: Glucose, Whole Blood 176 mg/dL (60-115)
--- NOTE | 2021-08-09 12:14 | P.OP_ITS ---
Operative Note Operative Note Date of Service: 08/09/21 Narrative: Operative note by [facility] Preoperative diagnosis:nonhealing right great toe ulcer, left heel ulcer Postoperative diagnosis:same Procedure:1. Right great toe amputation 2. left heel debridement into muscle Surgeon:Berto Sheppard M.D. Assistant Professor Of Mathematics:rachelle Anesthesia: local with sedation Specimens:1 Drains:0 Estimated blood loss:min Indications: 56-year-old gentleman with a nonhealing right great toe diabetic foot ulcer and left heel ulcer presents for amputation and debridement. The patient has signed the informed consent after reviewing risks, complications, benefits, and alternatives previously discussed with the patient. The patient was given the opportunity to ask any additional questions or voice any concerns. All questions were answered to the patient's satisfaction. Procedure in detail: patient was brought to the operating room prior to which a time-out was called for patient identification site verification. Antibiotics were given perioperatively. We 1st turned our attention to the right great toe. A curvilinear fishmouth incision was created over the great toe base. This was 1st infiltrated with local and then the incision was carried down through the skin subcu fashion down to the metatarsal head. Once the metatarsal head was identified we removed the toe in its entirety. Once this was accomplished the incision was irrigated adequate hemostasis was achieved. Superficial layer was closed with a 2 0 poly Sorb. Skin was closed with an interrupted 3-0 nylon in a mattress fashion. Sterile dressing was applied. We then a turned our attention to the left heel. This measured 3.5 x 6 x 0.1 cm using pickups and a a 15 blade excisional debridement was taken down into muscle. Bleeding was encountered. Adequate hemostasis was achieved with electrocautery. The wound was then thoroughly irrigated out. Postprocedure measurement was 3.7 x 6.2 x 0.3 cm sterile dressing was applied specimens were sent off and patient was returned to recovery with stable vitals. This note is constructed using voice recognition software. While every effort has been made to ensure accuracy, environmental inspector errors may have been included. Thank you for allowing me to participate in the care of your patient. Yours sincerely, Berto Sheppard MD, FACS, R.P.V.I.
[2021-08-09] MEDS: ondansetron HCL 4 MG/2 ML VIAL IVPUSH (12:43)
[2021-08-09] MEDS: Acetaminophen 325 MG TABLET 650 MG PO (12:43)
[2021-08-09] MEDS: oxyCODONE HCl Immed Release 5 MG TABLET 10 MG PO (12:44)
[2021-08-09] MEDS: fentaNYL citrate/PF 100 MCG/2 ML VIAL 50 MCG IVPUSH ×2 (12:45→12:55)
== END 2021-08-09 14:30 | disposition home or self-care (01) ==
PROVIDERS: PCP Internal Medicine; Visit Provider Surgery Vascular Surgery
PROC: (CPT 28810; principal; 2021-08-09 10:40)
DX: E11.621 Type 2 diabetes mellitus with foot ulcer (principal); L97.519 Non-pressure chronic ulcer of other part of right foot with unspecified severity; L97.429 Non-pressure chronic ulcer of left heel and midfoot with unspecified severity; E11.65 Type 2 diabetes mellitus with hyperglycemia; E11.42 Type 2 diabetes mellitus with diabetic polyneuropathy; Z79.4 Long term (current) use of insulin; M79.672 Pain in left foot; I25.10 Atherosclerotic heart disease of native coronary artery without angina pectoris; Z98.61 Coronary angioplasty status; I73.9 Peripheral vascular disease, unspecified; I10 Essential (primary) hypertension; E78.5 Hyperlipidemia, unspecified; Z87.891 Personal history of nicotine dependence; K86.1 Other chronic pancreatitis; F10.10 Alcohol abuse, uncomplicated; Z87.442 Personal history of urinary calculi
CPT/HCPCS: 28810; 11043; 82947; 88304; 88305; 88311; J0690; J2250; J2405; J3010

== ENCOUNTER 2021-08-14 06:38 | Inpatient (IN) | payer OTHER, SELFPAY ==
[2021-08-14] VITALS (9 sets, daily range): BP systolic 142–187; BP diastolic 74–97; PULSE 67–93; RESP 16–20; TEMP 36.8–37.1; O2SAT 96–99; BMI 32.5
--- NOTE | ~2021-08-14 | XR_ITS ---
EXAMINATION: BILATERAL FOOT. CLINICAL INFORMATION: Cellulitis status post great toe amputation right foot. Left foot pain COMPARISON: Left foot 3 views and right toe 3 views 06/01/2021 TECHNIQUE: 3 views each each foot. FINDINGS: Right foot: There is amputation of great toe beyond the metatarsal with no bony erosive changes or soft tissue edema or gaseous collection. There is vascular calcifications present in the fourth. Rest of the toes are unremarkable. A small calcaneal heel enthesophyte is seen. Calcification of dorsal displacement eccentric posterior tibial arteries are noted. Left foot: There is extensive vascular calcification. No visible acute fracture, dislocation or subluxation seen. No bony erosive changes involving the foot. There is small calcaneal heel and retrocalcaneal enthesophyte. There is a soft tissue ulceration along the posterior medial. No. Rest of thickening seen. XR/XR foot LT 2V IMPRESSION: Unremarkable left foot except for a calcaneal heel and retrocalcaneal enthesophytes. There is a soft tissue ulceration along the posterior heel. Amputation of right great toe. No suggestion for osteomyelitis. There is nonspecific mild soft tissue swelling likely related to surgery.
--- NOTE | ~2021-08-14 | XR_ITS ---
EXAMINATION: BILATERAL FOOT. CLINICAL INFORMATION: Cellulitis status post great toe amputation right foot. Left foot pain COMPARISON: Left foot 3 views and right toe 3 views 06/01/2021 TECHNIQUE: 3 views each each foot. FINDINGS: Right foot: There is amputation of great toe beyond the metatarsal with no bony erosive changes or soft tissue edema or gaseous collection. There is vascular calcifications present in the fourth. Rest of the toes are unremarkable. A small calcaneal heel enthesophyte is seen. Calcification of dorsal displacement eccentric posterior tibial arteries are noted. Left foot: There is extensive vascular calcification. No visible acute fracture, dislocation or subluxation seen. No bony erosive changes involving the foot. There is small calcaneal heel and retrocalcaneal enthesophyte. There is a soft tissue ulceration along the posterior medial. No. Rest of thickening seen. XR/XR foot RT 2V IMPRESSION: Unremarkable left foot except for a calcaneal heel and retrocalcaneal enthesophytes. There is a soft tissue ulceration along the posterior heel. Amputation of right great toe. No suggestion for osteomyelitis. There is nonspecific mild soft tissue swelling likely related to surgery.
[2021-08-14 08:10] LABS: MANUAL DIFF FLAG NO
[2021-08-14 08:14] LABS: Basophils Absolute Auto 0.1 X10*3/uL (0.0-0.2); Basophils Percent Auto 0.7 % (0-2); Eosinophils Absolute Auto 0.7 X10*3/uL (0.0-0.4); Eosinophils Percent Auto 5.8 % (0-4); Hematocrit 44.2 % (42.0-52.0); Hemoglobin 14.2 g/dl (14.0-18.0); Imm Gran Abs Auto 0.04 X10*3/uL (0.00-0.03); Imm Gran Pct Auto 0.3 % (0.0-0.4); Lymphocytes Absolute Auto 2.9 X10*3/uL (1.2-4.9); Lymphocytes Percent Auto 24.1 % (20-40); Mean Corpuscular HGB Conc 32.1 g/dl (31.0-36.0); Mean Corpuscular Hemoglobin 26.2 pg (27.0-33.0); Mean Corpuscular Volume 81.7 fL (80.0-98.0); Mean Platelet Volume 10.8 fL (9.4-12.4); Monocytes Absolute Auto 1.2 X10*3/uL (0.1-1.2); Monocytes Percent Auto 9.7 % (2-11); Neutrophils Absolute Auto 7.1 x10*3/uL (2.0-8.3); Neutrophils Percent Auto 59.4 % (45-73); Platelet Count 256 X10*3/uL (160-400); Red Blood Count 5.41 X10*6/uL (4.60-5.80); Red Cell Distribution Width 15.1 % (11.0-16.0)
[2021-08-14] MEDS: Morphine Sulfate 2 MG/ML CARTRIDGE IVPUSH (08:16)
[2021-08-14] MEDS: 0.9 % Sodium Chloride 1,000 ML 999 ML IVCONT (08:17)
--- NOTE | 2021-08-14 08:18 | ED_ITS ---
HPI - Extremity Problem General Chief complaint: Extremity Problem Stated complaint: FOOT PAIN S/P SURGERY Time Seen by Provider: 08/14/21 08:03 Source: patient Mode of arrival: ambulatory Limitations: no limitations History of Present Illness HPI Narrative: 56-year-old male with history of diabetes type 2, coronary artery disease, hypertension, has left heel ulcer, and status post right big toe amputation secondary to diabetic foot complication. Patient return back for increase redness around the incision of the right big toe amputation, and redness around the left heel wounds. No fever or chills. Patient also complaining of increased pain of the left heel ulcer and right big toe amputation stump. Related Data Home Medications Medication Instructions Recorded Confirmed atorvastatin 20 mg tablet 1 tab PO BEDTIME 03/24/21 06/18/21 insulin glargine 100 unit/mL (3 30 unit SUBCUT BEDTIME ml 05/06/21 06/18/21 mL) subcutaneous pen (Lantus Solostar U-100 Insulin) Previous Rx's Medication Instructions Recorded walker (Ultra-Light Rollator) #1 ea 09/14/20 lancets 28 gauge (FreeStyle #100 ea 01/04/21 Lancets) blood sugar diagnostic (FreeStyle #100 ea 01/07/21 Lite Strips) blood-glucose meter (FreeStyle #1 ea 01/07/21 Lite Meter) lancets 28 gauge (FreeStyle #100 ea 01/07/21 Lancets) pen needle, diabetic 32 gauge x #125 ea 01/07/21 (BD Ultra-Fine Michelle Pen Needle) aspirin 81 mg chewable tablet 81 mg PO DAILY #30 tab 05/06/21 empagliflozin 25 mg tablet 25 mg PO QAM #30 tab 05/06/21 (Jardiance) gabapentin 600 mg tablet 600 mg PO TID #90 tab 05/06/21 insulin lispro 100 unit/mL 17 unit (0.17 mL) SUBCUT BIDAC #15 05/06/21 subcutaneous pen (Humalog KwikPen ml (U-100) Insulin) ondansetron HCl 4 mg tablet 4 mg PO Q8H PRN #10 tab 05/06/21 acetaminophen 650 mg 650 mg PO Q12H PRN #60 tab 06/17/21 tablet,extended release (Tylenol 8 Hour) diclofenac sodium 1 % topical gel 2 g TOPICAL QID PRN #100 g 06/17/21 naproxen 500 mg tablet (Naprosyn) 500 mg PO BID PRN #30 tab 06/21/21 metoprolol succinate 50 mg 50 mg PO DAILY #30 tab 08/02/21 tablet,extended release 24 hr clopidogrel 75 mg tablet (Plavix) 75 mg PO DAILY #30 tab 08/03/21 oxycodone-acetaminophen 5 mg-325 1 tab PO Q6H PRN #14 tab 08/09/21 mg tablet (Percocet) Allergies Allergy/AdvReac Type Severity Reaction Status Date / Time No Known Allergies Allergy Verified 07/29/21 13:22 [No Known Allergies*] Review of Systems Review of Systems: All other systems are reviewed and are negative Constitutional: Reports as per HPI and Reports no additional constitutional complaints Eyes: Reports as per HPI and Reports no additional eye complaints Reports system reviewed and no additional complaints, except as documented Cardiovascular: Reports as per HPI and Reports no additional cardiovascular complaints Respiratory: Reports as per HPI and Reports no additional respiratory complaints Gastrointestinal: Reports as per HPI and Reports no additional gastrointestinal complaints Genitourinary: Reports no additional female genitourinary complaints Musculoskeletal: Reports no additional musculoskeletal complaints Skin/Breast: Reports system reviewed and no additional complaints, except as docu Psychiatric: Reports no additional psychiatric complaints Endocrine: Reports no additional endocrine complaints Hematologic/Lymphatic: Reports no additional hematologic/lymphatic complaints Allergic/Immunologic: Reports no additional allergic/immunologic complaints Reports system reviewed and no additional complaints, except as documented and Reports Abnormal speech present [facility] Past Medical History Medical History Alcohol abuse Arthritis CAD (coronary artery disease) Chronic pancreatitis Chronic 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 Diabetes mellitus with hyperglycemia, with long-term current use of insulin Essential hypertension Failure of outpatient treatment Hyperlipidemia Increased BMI Intractable left heel pain Kidney calculus Neuropathy Type 2 diabetes mellitus with diabetic polyneuropathy Type 2 diabetes mellitus with hyperglycemia Surgical History Hx of heart artery stent Hx of lithotripsy S/P debridement Status post laparoscopic cholecystectomy Family History Family History Mother [place] (myocardial infarction), Onset Age: 64 Diabetes mellitus HTN (hypertension) Maternal Grandmother Diabetes mellitus Social History Social History Household Members: Family Household Members Other:: and daughter Housing: Apartment Do you presently have visiting nurse or other home services: Yes (for wound care) Alcohol intake: current Alcohol intake frequency: does not drink Patient Tobacco Use Status: Former Tobacco user Quit Date: 3 weeks ago Tobacco use type: Cigarette Cigarette Packs Per Day: 1 Cigarettes Per Day: 20.0 Years Smoked: 28 Second Hand Smoke Exposure: Yes Use of substances other than those prescribed or required for medical reasons: No Substance Use Type: Marijuana Advance Directives: Yes Advance Directives on File: Yes Advance Directives Date on File: 04/17/21 service: No Current occupational status: employed Physical Exam Vital Signs: Vital Signs: Last Vital Signs Temp 98.2 F 08/14/21 07:00 Pulse 82 08/14/21 08:41 Resp 16 08/14/21 08:41 BP 187/87 H 08/14/21 08:41 Pulse Ox 97 08/14/21 08:41 BMI result Body Mass Index 32.5 Vital signs have been reviewed as appeared to be correct. Blood pressure normal. Heart rate normal. Respiration rate normal. Temperature normal. O xygen saturation normal. Appearance: Alert. Oriented X3. No acute distress. Head: Normal external exam. Normocephalic. Atraumatic. No Mix signs noted. No raccoon eyes noted Eyes: PERRLA. EOMI. Conjunctiva and sclera normal. Eyelids normal. ENT: TM's Normal. Pharynx normal. Uvula midline. Moist mucous membranes. No trismus noted. No drooling noted. No muffled voice noted. Neck: Normal inspection. Neck supple. FROM. No adenopathy. Thyroid Normal. No meningeal signs. No neck mass noted. CVS: Normal heart rate and rhythm. Heart sound normal. No murmurs noted. Pulses normal throughout. Respiratory: No respiratory distress. Painless inspiration. Breath sounds normal. No wheezes/rales/rhonchi noted. Chest nontender. No accessory muscle usage noted or decreased air movement noted. Abdomen: Soft and nontender. Bowel sounds normal in all 4 quadrants. No dis tention noted. No organomegaly noted. No visible injury noted. Back: No CVA tenderness. Full range of motion noted. Skin: Skin warm and dry. Normal skin color. Normal skin turgor. No rashes/les ions/lacerations noted. Extremities: Left foot with 3 x 5 cm heel ulcer with granulation on the ulcer floor, surrounded by erythematous base, no fluctuation, no visible discharge. Right foot: Status post right big toe amputation, suture is in place, redness and hotness and tenderness around the stump side, no fluctuation, no discharge. Neuro: Oriented X 3. Cranial nerve exam: II-XII are grossly intact No motor deficit. No sensory deficit. Reflexes normal. Course Course Course Narrative: Assessment and plan. 56-year-old male with infection of her right toe amputation stump patient meet SIRS symptoms by heart rate above 90/WBCs elevation, blood culture/lactic acid was checked patient will be given 1 L of IV fluids/patient will be given Zosyn and vancomycin, case discussed with Dr. Sheppard, admit for IV antibiotic. MDM - Extremity (Nontraumatic) Medical Records Attestation: I reviewed the patient's medical records. Lab Data Attestation: I reviewed the patient's lab results. Result diagrams: 08/14/21 08:05 08/14/21 08:31 Labs: Lab Results 08/14/21 08/14/21 08/14/21 Range/Units 08:05 08:31 08:31 WBC 12.0 H (4.8-10.8) X10*3/uL RBC 5.41 (4.60-5.80) X10*6/uL Hgb 14.2 (14.0-18.0) g/dl Hct 44.2 (42.0-52.0) % MCV 81.7 (80.0-98.0) fL MCH 26.2 L (27.0-33.0) pg MCHC 32.1 (31.0-36.0) g/dl RDW 15.1 (11.0-16.0) % Plt Count 256 (160-400) X10*3/uL MPV 10.8 (9.4-12.4) fL Immature Gran % (Auto) 0.3 (0.0-0.4) % Neut % (Auto) 59.4 (45-73) % Lymph % (Auto) 24.1 (20-40) % [place] % (Auto) 9.7 (2-11) % Eos % (Auto) 5.8 H (0-4) % Baso % (Auto) 0.7 (0-2) % Lymph # (Auto) 2.9 (1.2-4.9) X10*3/uL [place] # (Auto) 1.2 (0.1-1.2) X10*3/uL Eos # (Auto) 0.7 H (0.0-0.4) X10*3/uL Baso # (Auto) 0.1 (0.0-0.2) X10*3/uL Abs Immat Gran (auto) 0.04 H (0.00-0.03) X10*3/uL Absolute Neuts (auto) 7.1 (2.0-8.3) x10*3/uL Absolute Nucleated RBC 0.000 (0.0-0.012) X10*3/uL Nucleated RBC % (auto) 0.0 (0.0-0.2) /100WBC PT 11.2 (9.9-13.0) SEC INR 1.0 (0.9-1.1) APTT 30.8 (24.1-38.0) SEC Sodium 135 (135-145) mmol/L Potassium 4.0 (3.3-5.1) mmol/L Chloride 104 (96-108) mmol/L Carbon Dioxide 21 L (22-29) mmol/L Anion Gap 14 (12-20) BUN 17 H (9-16) mg/dL Creatinine 0.76 (0.5-1.4) mg/dL Estim Creat Clear Calc 127.8 Estimated GFR > 60 Random Glucose 195 H (60-115) mg/dL Lactic Acid (0.5-2.0) mmol/L Calcium 9.0 (8.4-10.2) mg/dL Total Bilirubin 0.3 (0.0-1.0) mg/dL Direct Bilirubin < 0.2 (0.0-0.5) mg/dL AST 13 (5-37) U/L ALT 16 (0-40) U/L Alkaline Phosphatase 79 (39-117) U/L Total Protein 7.2 (6.5-8.0) g/dL Albumin 3.7 (3.5-5.0) g/dL 08/14/21 Range/Units 08:31 WBC (4.8-10.8) X10*3/uL RBC (4.60-5.80) X10*6/uL Hgb (14.0-18.0) g/dl Hct (42.0-52.0) % MCV (80.0-98.0) fL MCH (27.0-33.0) pg MCHC (31.0-36.0) g/dl RDW (11.0-16.0) % Plt Count (160-400) X10*3/uL MPV (9.4-12.4) fL Immature Gran % (Auto) (0.0-0.4) % Neut % (Auto) (45-73) % Lymph % (Auto) (20-40) % [place] % (Auto) (2-11) % Eos % (Auto) (0-4) % Baso % (Auto) (0-2) % Lymph # (Auto) (1.2-4.9) X10*3/uL [place] # (Auto) (0.1-1.2) X10*3/uL Eos # (Auto) (0.0-0.4) X10*3/uL Baso # (Auto) (0.0-0.2) X10*3/uL Abs Immat Gran (auto) (0.00-0.03) X10*3/uL Absolute Neuts (auto) (2.0-8.3) x10*3/uL Absolute Nucleated RBC (0.0-0.012) X10*3/uL Nucleated RBC % (auto) (0.0-0.2) /100WBC PT (9.9-13.0) SEC INR (0.9-1.1) APTT (24.1-38.0) SEC Sodium (135-145) mmol/L Potassium (3.3-5.1) mmol/L Chloride (96-108) mmol/L Carbon Dioxide (22-29) mmol/L Anion Gap (12-20) BUN (9-16) mg/dL Creatinine (0.5-1.4) mg/dL Estim Creat Clear Calc Estimated GFR Random Glucose (60-115) mg/dL Lactic Acid 1.0 (0.5-2.0) mmol/L Calcium (8.4-10.2) mg/dL Total Bilirubin (0.0-1.0) mg/dL Direct Bilirubin (0.0-0.5) mg/dL AST (5-37) U/L ALT (0-40) U/L Alkaline Phosphatase (39-117) U/L Total Protein (6.5-8.0) g/dL Albumin (3.5-5.0) g/dL Imaging Data Right and left x-ray: Attestation: I personally reviewed and interpreted this imaging study as follows: Radiologist's impression: Unremarkable left foot except for a calcaneal heel and retrocalcaneal enthesophytes. There is a soft tissue ulceration along the posterior heel. ?Amputation of right great toe. No suggestion for osteomyelitis. There is nonspecific mild soft tissue swelling likely related to surgery. Discharge Plan Discharge Clinical Impression: Cellulitis of left foot, Amputation stump complication Patient Disposition: Admitted As Inpatient
[2021-08-14 08:47] LABS: Prothrombin Time 11.2 SEC (9.9-13.0)
[2021-08-14 08:50] LABS: Partial Thromboplastin Time 30.8 SEC (24.1-38.0)
[2021-08-14 08:54] LABS: Alanine Aminotransferase 16 U/L (0-40); Albumin Level 3.7 g/dL (3.5-5.0); Alkaline Phosphatase 79 U/L (39-117); Anion Gap 14 (12-20); Aspartate Amino Transferase 13 U/L (5-37); Bilirubin Direct < 0.2 mg/dL (0.0-0.5); Bilirubin Total 0.3 mg/dL (0.0-1.0); Blood Urea Nitrogen 17 mg/dL (9-16); Carbon Dioxide 21 mmol/L (22-29); Chloride 104 mmol/L (96-108); Creatinine Clr Calc Pharmacy 127.8; Estimated Glomerular Filt Rate > 60; Glucose Random 195 mg/dL (60-115); Sodium 135 mmol/L (135-145); Total Protein 7.2 g/dL (6.5-8.0)
[2021-08-14] MEDS: Piperacillin Sodium/Tazobactam 3.375 GM in 0.9 % Sodium Chloride 50 ML IV ×3 (08:57→20:33)
[2021-08-14] MEDS: HYDROmorphone HCl 1 MG/ML SYRINGE IVPUSH (09:55)
--- NOTE | 2021-08-14 10:27 | PHA.PROG ---
Admission Date/Time: Indication: SKIN/SKIN STRUCTURE Weight in k.79 kg Adjusted body weight in Kg: [place] body weight in Kg: Obesity Dosing Indication % IBW: Serum Creatinine - Last 168 Hours 08/14/21 08:31 Creatinine 0.76 Estimated CrCl and GFR - Last 168 Hours 08/14/21 08:31 Estim Creat Clear Calc 127.8 Estimated GFR > 60 Vancomycin Loading Dose: 2000MG Current Vancomycin Dosing Regimen: 1250MG Q12H Vancomycin Monitoring using AUC goal of 400 - 600 range with trough as surrogate marker: AUC 461 TROUGH 14.1 Date and Time for next Vancomycin Level to be drawn: 08/15/2021 @1999 Pharmacist Comments on Vancomycin Plan: Consider increasing to 1500mg q12h if pt has confirmed osteo Vancomycin dosing will take advantage of [employer] as a clinical decision support tool that uses Bayesian modeling to calculate individual patient's pharmacokinetic parameters and forecast the patient's drug concentration time course with the target goal AUC 24 range of 400 - 600 mg/L/hr.
--- NOTE | 2021-08-14 11:23 | PHA.MEDREC ---
Pharmacy Consult ? Medication Reconciliation Pharmacy has completed the medication reconciliation.
--- NOTE | 2021-08-14 12:22 | P.HPHOSP_ITS ---
History of Present Illness Date of Service: 08/14/21 Attending physician on admission: Hallie Petersen Chief Complaint: foot infection. 56-year-old male history of diabetes, foot wound,CAD, hypertension, hyperlipidemia- came to the hospital because had recent right foot- big toe amputation surgery with Dr. Sheppard due to foot ulcer. he also has left heel wound. As per the patient 1-2 days after surgery- is started significant foot pain and has still erythema and warmness , no discharge, was difficult to put weight on the foot. So decided to come to the hospital. has leukocytosis of 12, and mild tachycardia- so ED requested admission for cellulitis of foot. discussed with vascular Dr. Sheppard: recommended to continue IV antibiotic and will need for vascular follow-up. Denies any new complaint of chest pain or shortness of breath or abdominal pain or fever or chills or nausea or vomiting Denies any cough Denies any weakness or numbness. lab imaging reviewed personally and interpreted : WBC 12 BUN 17 creatinine 0.76 foot x-ray:IMPRESSION: Unremarkable left foot except for a calcaneal heel and retrocalcaneal enthesophytes. There is a soft tissue ulceration along the posterior heel. ? Amputation of right great toe. No suggestion for osteomyelitis. There is nonspecific mild soft tissue swelling likely related to surgery. In the ED patient was given vanco and Zosyn and admission was requested for cellulitis At [facility]. Review of Systems Review of Systems: as above. 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 Diabetes mellitus with hyperglycemia, with long-term current use of insulin Essential hypertension Failure of outpatient treatment Hyperlipidemia Increased BMI Intractable left heel pain Kidney calculus Neuropathy Type 2 diabetes mellitus with diabetic polyneuropathy Type 2 diabetes mellitus with hyperglycemia Family History Mother CA (myocardial infarction), Onset Age: 64 Diabetes mellitus HTN (hypertension) Maternal Grandmother Diabetes mellitus Surgical History Hx of heart artery stent Hx of lithotripsy S/P debridement Status post laparoscopic cholecystectomy Social History Household Members: Spouse and Children Household Members Other:: and daughter Housing: Apartment Do you presently have visiting nurse or other home services: Yes (wound care nurse) Alcohol intake: current Alcohol intake frequency: does not drink Patient Tobacco Use Status: Former Tobacco user Quit Date: 3 weeks ago Tobacco use type: Cigarette Cigarette Packs Per Day: 1 Cigarettes Per Day: 20.0 Years Smoked: 28 Second Hand Smoke Exposure: Yes Use of substances other than those prescribed or required for medical reasons: No Substance Use Type: Marijuana Currently Displaying Signs/Symptoms of Drug Intoxication Withdrawal: No Have you been hit, kicked, punched, or otherwise hurt by someone within the past year? If so, by whom?: No Do you feel safe in your current relationship?: Yes Is there a partner from a previous relationship who is making you feel unsafe now?: No Are you made to feel afraid or neglected: No Spiritual Healthcare Practices: none Congregational Healthcare Practices: none Cultural Healthcare Practices: none Advance Directives: Yes Advance Directives on File: Yes Advance Directives Date on File: 04/17/21 Do you have thoughts of harming others: None Do you have a plan to hurt others: No Plan Recently lost weight without trying: No How much weight loss: Not applicable Eating poorly because of decreased appetite: No Nutrition screen score: 0 Nutrition Risks: No Nutritional Risk Poor oral hygiene: No service: No Current occupational status: employed Meds Allergies Allergy/AdvReac Type Severity Reaction Status Date / Time No Known Allergies Allergy Verified 07/29/21 13:22 [No Known Allergies*] Active Medications: Current Medications Aspirin (Aspirin 81 Mg Tab.Chew) 81 mg PO DAILY [facility] Atorvastatin Calcium (Atorvastatin Calcium 20 Mg Tablet) 20 mg PO BEDTIME [facility] Clopidogrel Bisulfate (Clopidogrel Bisulfate 75 Mg Tablet) 75 mg PO DAILY [facility] Dextrose (Dextrose 50 % 25 Gm/50 Ml Vial) 25 gm IVPUSH Q15M PRN; Protocol PRN Reason: per Hypoglycemia Standing Ord. Enoxaparin Sodium (Enoxaparin Sodium 40 Mg/0.4 Ml Syringe) 40 mg SUBCUT Q24H [facility] Famotidine (Famotidine 20 Mg Tablet) 20 mg PO BEDTIME [facility] Gabapentin (Gabapentin 600 Mg Tablet) 600 mg PO TID [facility] Glucose (Glucose Gel 15 Gm Gel..Gram.) 15 gm PO Q15M PRN; Protocol PRN Reason: per Hypoglycemia Standing Ord. Vancomycin HCl 1,250 mg/ (Sodium Chloride) 250 mls @ 166.667 mls/hr IV Q12H [facility] Piperacillin Sod/Tazobactam (Sod 3.375 gm/ Sodium Chloride) 50 mls @ 100 mls/hr IV Q6H [facility] Insulin Glargine (Insulin Glargine,Hum.Rec.Anlog 100 Unit/Ml 10 Ml Vial) 30 unit SUBCUT BEDTIME [facility] Insulin Human Lispro (Insulin Lispro 100 Unit/Ml 3 Ml Vial) 17 unit SUBCUT BIDAC [facility] Insulin Human Lispro (Insulin Lispro 100 Unit/Ml 3 Ml Vial) 0 unit SUBCUT QIDACHS [facility]; Protocol Metoprolol Succinate (Metoprolol Succinate Er 50 Mg Tab.Er.24h) 50 mg PO DAILY [facility]; Protocol Non-Formulary Medication (Acetaminophen [Tylenol 8 Hour]) 650 mg PO Q12H PRN PRN Reason: pain Non-Formulary Medication (Diclofenac Sodium) 2 gm TOPICAL QID PRN PRN Reason: pain Non-Formulary Medication (Oxycodone-Acetaminophen [Percocet]) 1 tab PO Q6H PRN PRN Reason: pain Pharmacy Consult (Consult Rx Vancomycin Dosing) 1 each MISCELLANE DAILY PRN PRN Reason: Consult order Pharmacy Consult (Consult Rx Perform Med Rec) 1 each MISCELLANE ONCE PRN PRN Reason: Consult order Pharmacy Consult (Consult Rx Vancomycin Dosing) 1 each MISCELLANE DAILY PRN PRN Reason: Consult order Sodium Chloride (0.9 % Sodium Chloride Flush 3 Ml Syringe) [facility] Medications Medication Instructions Recorded Confirmed Last Taken Type atorvastatin 20 mg tablet 1 tab PO BEDTIME 03/24/21 08/14/21 08/13/21 History insulin glargine 100 unit/mL (3 30 unit SUBCUT BEDTIME ml 05/06/21 08/14/21 08/13/21 History mL) subcutaneous pen (Lantus Solostar U-100 Insulin) empagliflozin 25 mg tablet 1 tab PO DAILY 08/14/21 08/14/21 08/13/21 History (Jardiance) Physical Exam Vital Signs and Narrative: Vital Signs: Last Vital Signs Temp 98.2 F 08/14/21 07:00 Pulse 68 08/14/21 10:00 Resp 18 08/14/21 10:00 BP 154/74 H 08/14/21 10:00 Pulse Ox 97 08/14/21 08:41 BMI result Body Mass Index 32.5 Physical exam: Appearance: Alert.? Oriented X3.? not in distress.? Eyes: Pupils equal, round and reactive to light.? Sclera nonicteric.? ENT: Pharynx normal.? Moist mucous membranes. cvs: rrr, [id number] , no murmur res: clear to auscultation ,no rhonchii or wheezing abd: no rebound or guarding ,nt, bs present. ext : has left heel wound-dry , no discharge right foot stanp area-no discharge , warm , erythema up to forefoot area. neuro: axo3 , nonfocal. Skin: Other: Results Labs CBC and Chem 7: 08/14/21 08:05 08/14/21 08:31 Labs: Laboratory Results - last 24 hr 08/14/21 08/14/21 08/14/21 08:05 08:31 08:31 MCV 81.7 MCH 26.2 L MCHC 32.1 RDW 15.1 Plt Count 256 MPV 10.8 Immature Gran % (Auto) 0.3 Neut % (Auto) 59.4 Lymph % (Auto) 24.1 [place] % (Auto) 9.7 Eos % (Auto) 5.8 H Baso % (Auto) 0.7 Lymph # (Auto) 2.9 [place] # (Auto) 1.2 Eos # (Auto) 0.7 H Baso # (Auto) 0.1 Abs Immat Gran (auto) 0.04 H Absolute Neuts (auto) 7.1 Absolute Nucleated RBC 0.000 Nucleated RBC % (auto) 0.0 PT 11.2 INR 1.0 APTT 30.8 Anion Gap 14 Estim Creat Clear Calc 127.8 Estimated GFR > 60 Random Glucose 195 H Lactic Acid Calcium 9.0 Total Bilirubin 0.3 Direct Bilirubin < 0.2 AST 13 ALT 16 Alkaline Phosphatase 79 Total Protein 7.2 Albumin 3.7 08/14/21 08:31 MCV MCH MCHC RDW Plt Count MPV Immature Gran % (Auto) Neut % (Auto) Lymph % (Auto) [place] % (Auto) Eos % (Auto) Baso % (Auto) Lymph # (Auto) [place] # (Auto) Eos # (Auto) Baso # (Auto) Abs Immat Gran (auto) Absolute Neuts (auto) Absolute Nucleated RBC Nucleated RBC % (auto) PT INR APTT Anion Gap Estim Creat Clear Calc Estimated GFR Random Glucose Lactic Acid 1.0 Calcium Total Bilirubin Direct Bilirubin AST ALT Alkaline Phosphatase Total Protein Albumin Imaging Radiologist's Impressions: Impressions Foot X-Ray 08/14/21 08:40 IMPRESSION: Unremarkable left foot except for a calcaneal heel and retrocalcaneal enthesophytes. There is a soft tissue ulceration along the posterior heel. Amputation of right great toe. No suggestion for osteomyelitis. There is nonspecific mild soft tissue swelling likely related to surgery. Foot X-Ray 08/14/21 08:40 IMPRESSION: Unremarkable left foot except for a calcaneal heel and retrocalcaneal enthesophytes. There is a soft tissue ulceration along the posterior heel. Amputation of right great toe. No suggestion for osteomyelitis. There is nonspecific mild soft tissue swelling likely related to surgery. Assessment and Plan (1) Cellulitis: Qualifiers: Laterality: left Site of cellulitis: extremity Site of cellulitis of extremity: lower extremity Qualified Code(s): L03.116 - Cellulitis of left lower limb Status: Acute (2) PAD (peripheral artery disease): Status: Acute (3) Diabetic foot ulcer: Status: Acute 55yo M patient with DM2, CAD, and HTN multiple recurrent hospitalization for cellulitis Right foot stamp area, from non-healing diabetic heel ulcer and difficulty in ambulation: 1. right foot cellulitis /stamp area no fevers mild leucocytosis continue vanco and zosyn vanco trough ID and Vascular eval 2. left heel pain due to ulcer ,neuropathic pain, possible peripheral vascular disease ?? Continue home pain meds 3. CAD: continue antipletlets , metoprolol,and atorvastatin 4. HTN- continue metoprolol, BP stable 5. DM2- fs 170's continue fs with coverage , also home Lantus. # VTE ppx - [facility] Quality Stroke Does the patient have a stroke diagnosis?: No VTE Prior VTE?: No VTE Risk Level:: Medical - moderate - high VTE Device Contraindication: N/A - Device Ordered VTE Drug Contraindication: N/A - Med Ordered
[2021-08-14 14:04] LABS: Glucose, Whole Blood 164 mg/dL (60-115)
[2021-08-14] MEDS: Enoxaparin Sodium 40 MG/0.4 ML SYRINGE SUBCUT (14:11)
[2021-08-14] MEDS: Lactated Ringers 1,000 ML 80 ML IVCONT (14:17)
[2021-08-14] MEDS: Gabapentin 600 MG TABLET PO ×2 (16:14→20:33)
[2021-08-14] MEDS: oxyCODONE HCl Immed Release 5 MG TABLET PO ×2 (16:14→20:33)
[2021-08-14 16:42] LABS: Glucose, Whole Blood 192 mg/dL (60-115)
[2021-08-14] MEDS: Insulin Lispro 100 UNIT/ML 3 ML VIAL SUBCUT (17:38)
[2021-08-14 18:09] LABS: COVID-19 Test Negative (Negative)
[2021-08-14] MEDS: Atorvastatin Calcium 20 MG TABLET PO (20:32)
[2021-08-14] MEDS: Famotidine 20 MG TABLET PO (20:32)
[2021-08-14 21:24] LABS: Glucose, Whole Blood 202 mg/dL (60-115)
[2021-08-14] MEDS: Insulin Glargine,Hum.rec.anlog 100 UNIT/ML 10 ML VIAL 30 UNIT SUBCUT (22:25)
[2021-08-14] MEDS: vancomycin HCL 1,250 MG in 0.9 % Sodium Chloride 250 ML 166.67 MG IV (22:26)
[2021-08-14] MEDS: 0.9 % Sodium Chloride Flush 3 ML SYRINGE IVFLUSH (22:26)
[2021-08-15] VITALS (10 sets, daily range): BP systolic 144–168; BP diastolic 62–77; PULSE 68–100; RESP 17–20; TEMP 36.2–37.2; O2SAT 96–99
[2021-08-15] MEDS: Lactated Ringers 1,000 ML 80 ML IVCONT ×2 (01:28→16:26)
[2021-08-15] MEDS: oxyCODONE HCl Immed Release 5 MG TABLET PO ×4 (01:29→22:55)
[2021-08-15] MEDS: Piperacillin Sodium/Tazobactam 3.375 GM in 0.9 % Sodium Chloride 50 ML IV ×4 (03:35→21:01)
--- NOTE | 2021-08-15 07:34 | P.PNIM_ITS ---
Subjective Subjective Date of Service: 08/15/21 Interval History: stamp area cellulitis Review of Systems has foot pain. Denies any new complaint of chest pain or shortness of breath or abdominal pain or fever or chills or nausea or vomiting Denies any cough Denies any weakness or numbness. Physical Exam Vital Signs: Vital Signs: Last Vital Signs Temp 97.2 F 08/15/21 03:09 Pulse 85 08/15/21 03:09 Resp 20 08/15/21 03:09 BP 161/75 H 08/15/21 03:09 Pulse Ox 96 08/15/21 03:09 BMI result Body Mass Index 32.5 Appearance: Alert.? Oriented X3.? not in distress.? Eyes: Pupils equal, round and reactive to light.? Sclera nonicteric.? ENT: Pharynx normal.? Moist mucous membranes. cvs: rrr, [id number] , no murmur res: clear to auscultation ,no rhonchii or wheezing abd: no rebound or guarding ,nt, bs present. ext : has left heel wound-dry , no discharge right foot stanp area-no discharge , warm , erythema up to forefoot areap- Please see H&P picture- looks similar to yesterday. neuro: axo3 , nonfocal. Objective Data Active Medications Acetaminophen (Acetaminophen 325 Mg Tablet) 650 mg PO Q12H PRN PRN Reason: pain Aspirin (Aspirin 81 Mg Tab.Chew) 81 mg PO DAILY [facility] Atorvastatin Calcium (Atorvastatin Calcium 20 Mg Tablet) 20 mg PO BEDTIME [facility] Last Admin: 08/14/21 20:32 Dose: 20 mg Documented by: BRENDON Clopidogrel Bisulfate (Clopidogrel Bisulfate 75 Mg Tablet) 75 mg PO DAILY [facility] Dextrose (Dextrose 50 % 25 Gm/50 Ml Vial) 25 gm IVPUSH Q15M PRN; Protocol PRN Reason: per Hypoglycemia Standing Ord. Enoxaparin Sodium (Enoxaparin Sodium 40 Mg/0.4 Ml Syringe) 40 mg SUBCUT Q24H [facility] Last Admin: 08/14/21 14:11 Dose: 40 mg Documented by: JONNIE Famotidine (Famotidine 20 Mg Tablet) 20 mg PO BEDTIME [facility] Last Admin: 08/14/21 20:32 Dose: 20 mg Documented by: BRENDON Gabapentin (Gabapentin 600 Mg Tablet) 600 mg PO TID [facility] Last Admin: 08/14/21 20:33 Dose: 600 mg Documented by: BRENDON Glucose (Glucose Gel 15 Gm Gel..Gram.) 15 gm PO Q15M PRN; Protocol PRN Reason: per Hypoglycemia Standing Ord. Vancomycin HCl 1,250 mg/ (Sodium Chloride) 250 mls @ 166.667 mls/hr IV Q12H [facility] Last Infusion: 08/15/21 00:10 Dose: 0 mls/hr Documented by: BRENDON Piperacillin Sod/Tazobactam (Sod 3.375 gm/ Sodium Chloride) 50 mls @ 100 mls/hr IV Q6H [facility] Last Infusion: 08/15/21 04:40 Dose: 0 mls/hr Documented by: BRENDON Lactated Ringer's (Lr) 1,000 mls @ 80 mls/hr IVCONT .[id number] [facility] Last Admin: 08/15/21 01:28 Dose: 80 mls/hr Documented by: BRENDON Insulin Glargine (Insulin Glargine,Hum.Rec.Anlog 100 Unit/Ml 10 Ml Vial) 30 unit SUBCUT BEDTIME [facility] Last Admin: 08/14/21 22:25 Dose: 30 unit Documented by: BRENDON Insulin Human Lispro (Insulin Lispro 100 Unit/Ml 3 Ml Vial) 0 unit SUBCUT QIDACHS [facility]; Protocol Last Admin: 08/14/21 22:26 Dose: Not Given Documented by: BRENDON Non-Admin Reason: No Insulin Coverage Metoprolol Succinate (Metoprolol Succinate Er 50 Mg Tab.Er.24h) 50 mg PO DAILY [facility]; Protocol Oxycodone HCl (Oxycodone Hcl Immed Release 5 Mg Tablet) 5 mg PO Q4H PRN PRN Reason: Pain, Severe (Pain Scale 7-10) Last Admin: 08/15/21 01:29 Dose: 5 mg Documented by: BRENDON Pharmacy Consult (Consult Rx Vancomycin Dosing) 1 each MISCELLANE DAILY PRN PRN Reason: Consult order Pharmacy Consult (Consult Rx Perform Med Rec) 1 each MISCELLANE ONCE PRN PRN Reason: Consult order Sodium Chloride (0.9 % Sodium Chloride Flush 3 Ml Syringe) 3 ml IVFLUSH QSHIFT [facility] Last Admin: 08/15/21 07:12 Dose: Not Given Documented by: LEORA Non-Admin Reason: IV Running Labs CBC & Chem 7: 08/15/21 07:22 08/15/21 07:22 Labs: Laboratory Results - last 24 hr 08/14/21 08/14/21 08/14/21 08:05 08:31 08:31 MCV 81.7 MCH 26.2 L MCHC 32.1 RDW 15.1 Plt Count 256 MPV 10.8 Immature Gran % (Auto) 0.3 Neut % (Auto) 59.4 Lymph % (Auto) 24.1 [place] % (Auto) 9.7 Eos % (Auto) 5.8 H Baso % (Auto) 0.7 Lymph # (Auto) 2.9 [place] # (Auto) 1.2 Eos # (Auto) 0.7 H Baso # (Auto) 0.1 Abs Immat Gran (auto) 0.04 H Absolute Neuts (auto) 7.1 Absolute Nucleated RBC 0.000 Nucleated RBC % (auto) 0.0 PT 11.2 INR 1.0 APTT 30.8 Anion Gap 14 Estim Creat Clear Calc 127.8 Estimated GFR > 60 POC Glucose Random Glucose 195 H Lactic Acid Calcium 9.0 Total Bilirubin 0.3 Direct Bilirubin < 0.2 AST 13 ALT 16 Alkaline Phosphatase 79 Total Protein 7.2 Albumin 3.7 COVID-19 ([facility]) COVID-19 Clin Com 08/14/21 08/14/21 08/14/21 08:31 13:59 16:39 MCV MCH MCHC RDW Plt Count MPV Immature Gran % (Auto) Neut % (Auto) Lymph % (Auto) [place] % (Auto) Eos % (Auto) Baso % (Auto) Lymph # (Auto) [place] # (Auto) Eos # (Auto) Baso # (Auto) Abs Immat Gran (auto) Absolute Neuts (auto) Absolute Nucleated RBC Nucleated RBC % (auto) PT INR APTT Anion Gap Estim Creat Clear Calc Estimated GFR POC Glucose 164 H 192 H Random Glucose Lactic Acid 1.0 Calcium Total Bilirubin Direct Bilirubin AST ALT Alkaline Phosphatase Total Protein Albumin COVID-19 ([facility]) COVID-19 Clin Com 08/14/21 08/14/21 17:21 21:03 MCV MCH MCHC RDW Plt Count MPV Immature Gran % (Auto) Neut % (Auto) Lymph % (Auto) [place] % (Auto) Eos % (Auto) Baso % (Auto) Lymph # (Auto) [place] # (Auto) Eos # (Auto) Baso # (Auto) Abs Immat Gran (auto) Absolute Neuts (auto) Absolute Nucleated RBC Nucleated RBC % (auto) PT INR APTT Anion Gap Estim Creat Clear Calc Estimated GFR POC Glucose 202 H Random Glucose Lactic Acid Calcium Total Bilirubin Direct Bilirubin AST ALT Alkaline Phosphatase Total Protein Albumin COVID-19 ([facility]) Negative COVID-19 Clin Com See Note Assessment and Plan (1) Cellulitis: Status: Acute (2) Diabetic foot ulcer: Status: Acute Assessment and Plan: 55yo M patient with DM2, CAD, and HTN multiple recurrent hospitalization for cellulitis Right foot stamp area, from non-healing diabetic heel ulcer? and difficulty in ambulation: 1. right foot cellulitis /stamp area no fevers mild leucocytosis continue vanco and zosyn vanco trough ID and Vascular eval 2. left heel pain due to ulcer ,neuropathic pain, possible peripheral vascular disease ?? Continue home pain meds 3. CAD: continue antipletlets , metoprolol,and atorvastatin 4. HTN- continue metoprolol, BP stable 5. DM2- fs 170-190's continue fs with coverage , also home? Lantus. # VTE ppx - [facility] Quality Stroke Does the patient have a stroke diagnosis?: No VTE Prior VTE?: No VTE Risk Level:: Medical - moderate - high VTE Device Contraindication: N/A - Device Ordered VTE Drug Contraindication: N/A - Med Ordered
[2021-08-15 07:43] LABS: Glucose, Whole Blood 172 mg/dL (60-115)
[2021-08-15] MEDS: Insulin Lispro 100 UNIT/ML 3 ML VIAL SUBCUT ×4 (07:52→21:03)
[2021-08-15] MEDS: Gabapentin 600 MG TABLET PO ×3 (07:52→21:03)
[2021-08-15] MEDS: Aspirin 81 MG TAB.CHEW PO (07:52)
[2021-08-15] MEDS: Acetaminophen 325 MG TABLET 650 MG PO (07:53)
[2021-08-15] MEDS: Metoprolol Succinate ER 50 MG TAB.ER.24H PO (07:53)
[2021-08-15] MEDS: Clopidogrel Bisulfate 75 MG TABLET PO (07:53)
[2021-08-15 07:56] LABS: Anion Gap 13 (12-20); Blood Urea Nitrogen 12 mg/dL (9-16); Calcium 9.2 mg/dL (8.4-10.2); Carbon Dioxide 26 mmol/L (22-29); Chloride 102 mmol/L (96-108); Estimated Glomerular Filt Rate > 60; Glucose Random 174 mg/dL (60-115); Hematocrit 41.2 % (42.0-52.0); Hemoglobin 13.3 g/dl (14.0-18.0); Mean Corpuscular HGB Conc 32.3 g/dl (31.0-36.0); Mean Corpuscular Hemoglobin 26.3 pg (27.0-33.0); Mean Corpuscular Volume 81.6 fL (80.0-98.0); Mean Platelet Volume 10.4 fL (9.4-12.4); Platelet Count 248 X10*3/uL (160-400); Potassium 4.2 mmol/L (3.3-5.1); Red Blood Count 5.05 X10*6/uL (4.60-5.80); Red Cell Distribution Width 15.2 % (11.0-16.0); Sodium 137 mmol/L (135-145)
[2021-08-15 08:41] LABS: Erythrocyte Sedimentation Rate 53 MM/HR (0-15)
[2021-08-15] MEDS: Morphine Sulfate 2 MG/ML CARTRIDGE IVPUSH ×4 (10:48→21:00)
[2021-08-15] MEDS: vancomycin HCL 1,250 MG in 0.9 % Sodium Chloride 250 ML 166.67 MG IV ×2 (10:49→22:50)
[2021-08-15 11:30] LABS: Glucose, Whole Blood 163 mg/dL (60-115)
[2021-08-15] MEDS: Enoxaparin Sodium 40 MG/0.4 ML SYRINGE SUBCUT (11:37)
[2021-08-15] MEDS: 0.9 % Sodium Chloride Flush 3 ML SYRINGE IVFLUSH (14:21)
[2021-08-15 16:33] LABS: Glucose, Whole Blood 191 mg/dL (60-115)
[2021-08-15 20:22] LABS: Vancomycin Trough 10.2 mcg/mL (10.0-20.0)
[2021-08-15 20:34] LABS: Glucose, Whole Blood 208 mg/dL (60-115)
[2021-08-15] MEDS: Famotidine 20 MG TABLET PO (21:03)
[2021-08-15] MEDS: Insulin Glargine,Hum.rec.anlog 100 UNIT/ML 10 ML VIAL 30 UNIT SUBCUT (21:03)
[2021-08-15] MEDS: Atorvastatin Calcium 20 MG TABLET PO (21:03)
[2021-08-16] MEDS: Morphine Sulfate 2 MG/ML CARTRIDGE IVPUSH ×4 (00:55→14:48)
[2021-08-16] MEDS: Piperacillin Sodium/Tazobactam 3.375 GM in 0.9 % Sodium Chloride 50 ML IV ×4 (03:03→21:07)
[2021-08-16 03:51] VITALS: BP 174/77; PULSE 67; RESP 19; TEMP 36.6; O2SAT 98
[2021-08-16 07:20] VITALS: BP 187/88; PULSE 75; RESP 18; TEMP 37.4; O2SAT 98
--- NOTE | 2021-08-16 07:48 | HO.PM.IMPN ---
Subjective Subjective Date of Service: 08/16/21 Interval History: foot cellulitis Review of Systems seems similar to yesterday , pain improving with pain meds Denies any new complaint of chest pain or shortness of breath or abdominal pain or fever or chills or nausea or vomiting Denies any cough Denies any weakness or numbness. Physical Exam Vital Signs: Vital Signs: Last Vital Signs Temp 99.4 F 08/16/21 07:20 Pulse 75 08/16/21 07:20 Resp 18 08/16/21 07:20 BP 187/88 H 08/16/21 07:20 Pulse Ox 98 08/16/21 07:20 BMI result Body Mass Index 32.5 Physical exam: Appearance: Alert.? Oriented X3.? not in distress.? Eyes: Pupils equal, round and reactive to light.? Sclera nonicteric.? ENT: Pharynx normal.? Moist mucous membranes. cvs: rrr, [id number] , no murmur res: clear to auscultation ,no rhonchii or wheezing abd: no rebound or guarding ,nt, bs present. ext pulses present , no cyanosis ,right foot stanp area-no discharge , warm , erythema up to forefoot areap-? Please see H&P picture- looks similar to yesterday. neuro: axo3 , nonfocal. Objective Data Active Medications Acetaminophen (Acetaminophen 325 Mg Tablet) 650 mg PO Q12H PRN PRN Reason: pain Last Admin: 08/15/21 07:53 Dose: 650 mg Documented by: LEORA Aspirin (Aspirin 81 Mg Tab.Chew) 81 mg PO DAILY [facility] Last Admin: 08/15/21 07:52 Dose: 81 mg Documented by: LEORA Atorvastatin Calcium (Atorvastatin Calcium 20 Mg Tablet) 20 mg PO BEDTIME [facility] Last Admin: 08/15/21 21:03 Dose: 20 mg Documented by: GABBY Clopidogrel Bisulfate (Clopidogrel Bisulfate 75 Mg Tablet) 75 mg PO DAILY [facility] Last Admin: 08/15/21 07:53 Dose: 75 mg Documented by: LEORA Dextrose (Dextrose 50 % 25 Gm/50 Ml Vial) 25 gm IVPUSH Q15M PRN; Protocol PRN Reason: per Hypoglycemia Standing Ord. Enoxaparin Sodium (Enoxaparin Sodium 40 Mg/0.4 Ml Syringe) 40 mg SUBCUT Q24H [facility] Last Admin: 08/15/21 11:37 Dose: 40 mg Documented by: COTEMA Famotidine (Famotidine 20 Mg Tablet) 20 mg PO BEDTIME [facility] Last Admin: 08/15/21 21:03 Dose: 20 mg Documented by: GABBY Gabapentin (Gabapentin 600 Mg Tablet) 600 mg PO TID [facility] Last Admin: 08/15/21 21:03 Dose: 600 mg Documented by: GABBY Glucose (Glucose Gel 15 Gm Gel..Gram.) 15 gm PO Q15M PRN; Protocol PRN Reason: per Hypoglycemia Standing Ord. Vancomycin HCl 1,250 mg/ (Sodium Chloride) 250 mls @ 166.667 mls/hr IV Q12H [facility] Last Infusion: 08/16/21 00:48 Dose: 0 mls/hr Documented by: GABBY Piperacillin Sod/Tazobactam (Sod 3.375 gm/ Sodium Chloride) 50 mls @ 100 mls/hr IV Q6H [facility] Last Infusion: 08/16/21 04:00 Dose: 0 mls/hr Documented by: GABBY Lactated Ringer's (Lr) 1,000 mls @ 80 mls/hr IVCONT .[id number] [facility] Last Admin: 08/16/21 07:23 Dose: Not Given Documented by: BEVERLEY Non-Admin Reason: IV Running Insulin Glargine (Insulin Glargine,Hum.Rec.Anlog 100 Unit/Ml 10 Ml Vial) 30 unit SUBCUT BEDTIME [facility] Last Admin: 08/15/21 21:03 Dose: 30 unit Documented by: GABBY Insulin Human Lispro (Insulin Lispro 100 Unit/Ml 3 Ml Vial) 0 unit SUBCUT QIDACHS [facility]; Protocol Last Admin: 08/15/21 21:03 Dose: 4 unit Documented by: GABBY Metoprolol Succinate (Metoprolol Succinate Er 50 Mg Tab.Er.24h) 50 mg PO DAILY [facility]; Protocol Last Admin: 08/15/21 07:53 Dose: 50 mg Documented by: LEORA Morphine Sulfate (Morphine Sulfate 2 Mg/Ml Cartridge) 2 mg IVPUSH Q3H PRN; Protocol PRN Reason: Pain, Mild (Pain Scale 1-3) Last Admin: 08/16/21 05:12 Dose: 2 mg Documented by: GABBY Oxycodone HCl (Oxycodone Hcl Immed Release 5 Mg Tablet) 5 mg PO Q4H PRN PRN Reason: Pain, Severe (Pain Scale 7-10) Last Admin: 08/15/21 22:55 Dose: 5 mg Documented by: GABBY Pharmacy Consult (Consult Rx Vancomycin Dosing) 1 each MISCELLANE DAILY PRN PRN Reason: Consult order Pharmacy Consult (Consult Rx Perform Med Rec) 1 each MISCELLANE ONCE PRN PRN Reason: Consult order Sodium Chloride (0.9 % Sodium Chloride Flush 3 Ml Syringe) 3 ml IVFLUSH QSHIFT [facility] Last Admin: 08/16/21 00:09 Dose: Not Given Documented by: GABBY Non-Admin Reason: IV Running Labs CBC & Chem 7: 08/15/21 07:22 08/16/21 10:14 Labs: Laboratory Results - last 24 hr 08/15/21 08/15/21 08/15/21 07:22 07:22 07:22 MCV 81.6 MCH 26.3 L MCHC 32.3 RDW 15.2 Plt Count 248 MPV 10.4 Absolute Nucleated RBC 0.000 Nucleated RBC % (auto) 0.0 ESR 53 H Anion Gap 13 Estim Creat Clear Calc 120.0 Estimated GFR > 60 POC Glucose Random Glucose 174 H Calcium 9.2 C-Reactive Protein 8.50 H Vancomycin Trough 08/15/21 08/15/21 08/15/21 11:15 16:26 19:54 MCV MCH MCHC RDW Plt Count MPV Absolute Nucleated RBC Nucleated RBC % (auto) ESR Anion Gap Estim Creat Clear Calc Estimated GFR POC Glucose 163 H 191 H Random Glucose Calcium C-Reactive Protein Vancomycin Trough 10.2 08/15/21 20:20 MCV MCH MCHC RDW Plt Count MPV Absolute Nucleated RBC Nucleated RBC % (auto) ESR Anion Gap Estim Creat Clear Calc Estimated GFR POC Glucose 208 H Random Glucose Calcium C-Reactive Protein Vancomycin Trough Microbiology Microbiology Results: Microbiology 08/14/21 08:31 Blood Culture - Preliminary Blood - Venous No growth after 24 hours. 08/14/21 08:06 Blood Culture - Preliminary Blood - Venous No growth after 24 hours. Assessment and Plan (1) Cellulitis: Status: Acute (2) Diabetic foot ulcer: Status: Acute Assessment and Plan: 55yo M patient with DM2, CAD, and HTN multiple recurrent hospitalization for cellulitis Right foot stamp area, from non-healing diabetic heel ulcer? and difficulty in ambulation: 1. right foot cellulitis /stamp area no fevers mild leucocytosis esr 53 , crp:8.5 continue vanco and zosyn vanco trough 10.2 yesterday ID and Vascular eval pending 2. left heel pain due to ulcer ,neuropathic pain, possible peripheral vascular disease: wound nurse consult added . ?? Continue home pain meds 3. CAD: continue antipletlets , metoprolol,and atorvastatin 4. HTN- continue metoprolol, BP stable 5. DM2- fs 160-200's continue fs with coverage , also home? Lantus. # VTE ppx - LMWH Quality Stroke Does the patient have a stroke diagnosis?: No VTE Prior VTE?: No VTE Risk Level:: Medical - moderate - high VTE Device Contraindication: N/A - Device Ordered VTE Drug Contraindication: N/A - Med Ordered
[2021-08-16] MEDS: Metoprolol Succinate ER 50 MG TAB.ER.24H PO (07:50)
[2021-08-16] MEDS: Aspirin 81 MG TAB.CHEW PO (07:50)
[2021-08-16] MEDS: oxyCODONE HCl Immed Release 5 MG TABLET PO (07:50)
[2021-08-16] MEDS: Clopidogrel Bisulfate 75 MG TABLET PO (07:50)
[2021-08-16] MEDS: Gabapentin 600 MG TABLET PO ×3 (07:50→21:09)
[2021-08-16 08:19] LABS: Glucose, Whole Blood 155 mg/dL (60-115)
[2021-08-16] MEDS: Insulin Lispro 100 UNIT/ML 3 ML VIAL SUBCUT ×4 (08:35→21:10)
[2021-08-16] MEDS: Acetaminophen 325 MG TABLET 650 MG PO (08:43)
[2021-08-16] MEDS: vancomycin HCL 1,500 MG in 0.9 % Sodium Chloride 500 ML 333.33 MG IV ×2 (09:58→21:54)
[2021-08-16 10:41] LABS: Creatinine Clr Calc Pharmacy 121.5; Estimated Glomerular Filt Rate > 60
[2021-08-16 11:36] VITALS: BP 174/81; PULSE 67; RESP 18; TEMP 37.2; O2SAT 98
--- NOTE | 2021-08-16 11:37 | P.CDIC_ITS ---
CDI Concurrent Query Documentation Clarification: PHYSICIAN'S DOCUMENTATION REQUEST Date of Query: 08/16/21 1138 Patient Name: Pierre West Admit Date: 08/14/21 Dear Doctor, A review of the medical record indicates additional documentation may be indicated. Please review below and update the documentation accordingly. Clinical Indicators: Risk Factors/Clinical Indicators/Treatments Per H&P: Cellulitis left lower extremity diabetic heel ulcer Based on the above, could you please provide, in the Progress Notes, further information regarding the ulcer/wound: * For a non-pressure ulcer, please indicate the depth/severity: * Limited to the breakdown of skin * With fat layer exposed * With necrosis of muscle * With necrosis of bone * Other * Unable to determine *Source: National Pressure Ulcer Advisory Panel (NPUAP) Use of terms such as suspected, likely, concern for, or probable (associated with a specific diagnosis that is being evaluated, monitored, or treated as if it exists) are acceptable and can be coded in the inpatient setting, when documented at the time of discharge. Thank you, Lynn Mckeon RN Extension: [phone] Please use your independent medical judgment in providing your response. THIS QUERY IS PART OF THE PERMANENT MEDICAL RECORD Provider Response: Other Other Diagnosis: dm heel ulcer stage 3 ( d/w wound nurse)
[2021-08-16] MEDS: oxyCODONE HCl Immed Release 5 MG TABLET 10 MG PO ×3 (11:39→21:10)
[2021-08-16] MEDS: Enoxaparin Sodium 40 MG/0.4 ML SYRINGE SUBCUT (11:39)
[2021-08-16 11:47] LABS: Glucose, Whole Blood 178 mg/dL (60-115)
--- NOTE | 2021-08-16 12:02 | MHC.CLN ---
NUTRITION CONSULT FOR DIABETIC FOOT WOUND-HEEL. NOT PRESSURE INJURY. NO ADDITIONAL NUTRITION INTERVENTIONS.
[2021-08-16] MEDS: Lactated Ringers 1,000 ML 80 ML IVCONT (12:23)
--- NOTE | 2021-08-16 13:32 | P.CONGS_ITS ---
History of Present Illness Consult details Consult date: 08/16/21 Narrative: 56-year-old uncontrolled diabetic presents to the hospital with nonhealing ulcer of the left heel and cellulitis of the right great toe amp site. He the patient is well known to me and status post right great toe amp by me. He was doing well and over the past few days he had developed excruciating pain. The right great toe amputation site became red and tender. He subsequently presented to the hospital for evaluation and treatment. He was admitted for IV antibiotic therapy. Review of Systems Review of Systems: Yes all other systems are reviewed and are negative Constitutional: Constitutional: Reports no additional constitutional complaints ENT: Reports Normal hearing present Cardiovascular: Cardiovascular: Denies chest pain, Denies chest pain at rest, Denies chest pain with activity and Denies pedal edema Respiratory: Respiratory: Denies cough Gastrointestinal: Gastrointestinal: Denies abdominal pain Musculoskeletal: Musculoskeletal: Denies abnormal gait, Denies muscle cramps and Denies radiating pain into limb Integumentary/Breasts: Skin/Breast: Denies skin ulcer and Denies wounds Neurologic: Reports Normal hearing present and Denies abnormal gait Psychiatric: Psychiatric: Reports no additional psychiatric complaints [facility] Past Medical History Medical History Alcohol abuse Arthritis CAD (coronary artery disease) Chronic pancreatitis Chronic 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 Diabetes mellitus with hyperglycemia, with long-term current use of insulin Essential hypertension Failure of outpatient treatment Hyperlipidemia Increased BMI Intractable left heel pain Kidney calculus Neuropathy Type 2 diabetes mellitus with diabetic polyneuropathy Type 2 diabetes mellitus with hyperglycemia Family History Family History Mother [place] (myocardial infarction), Onset Age: 64 Diabetes mellitus HTN (hypertension) Maternal Grandmother Diabetes mellitus Surgical History Surgical History Hx of heart artery stent Hx of lithotripsy S/P debridement Status post laparoscopic cholecystectomy Social History Social History Household Members: Spouse and Children Household Members Other:: and daughter Housing: Apartment Do you presently have visiting nurse or other home services: Yes (wound care nurse) Alcohol intake: current Alcohol intake frequency: does not drink Patient Tobacco Use Status: Former Tobacco user Quit Date: 3 weeks ago Tobacco use type: Cigarette Cigarette Packs Per Day: 1 Cigarettes Per Day: 20.0 Years Smoked: 28 Second Hand Smoke Exposure: Yes Use of substances other than those prescribed or required for medical reasons: No Substance Use Type: Marijuana Currently Displaying Signs/Symptoms of Drug Intoxication Withdrawal: No Have you been hit, kicked, punched, or otherwise hurt by someone within the past year? If so, by whom?: No Do you feel safe in your current relationship?: Yes Is there a partner from a previous relationship who is making you feel unsafe now?: No Are you made to feel afraid or neglected: No Spiritual Healthcare Practices: none Taoism Healthcare Practices: none Cultural Healthcare Practices: none Advance Directives: Yes Advance Directives on File: Yes Advance Directives Date on File: 04/17/21 Do you have thoughts of harming others: None Do you have a plan to hurt others: No Plan Recently lost weight without trying: No How much weight loss: Not applicable Eating poorly because of decreased appetite: No Nutrition screen score: 0 Nutrition Risks: No Nutritional Risk Poor oral hygiene: No service: No Current occupational status: employed Meds Allergies Allergy/AdvReac Type Severity Reaction Status Date / Time No Known Allergies Allergy Verified 07/29/21 13:22 [No Known Allergies*] Active Medications: Current Medications Acetaminophen (Acetaminophen 325 Mg Tablet) 650 mg PO Q12H PRN PRN Reason: pain Last Admin: 08/16/21 08:43 Dose: 650 mg Documented by: Aspirin (Aspirin 81 Mg Tab.Chew) 81 mg PO DAILY [facility] Last Admin: 08/16/21 07:50 Dose: 81 mg Documented by: Atorvastatin Calcium (Atorvastatin Calcium 20 Mg Tablet) 20 mg PO BEDTIME [facility] Last Admin: 08/15/21 21:03 Dose: 20 mg Documented by: Clopidogrel Bisulfate (Clopidogrel Bisulfate 75 Mg Tablet) 75 mg PO DAILY [facility] Last Admin: 08/16/21 07:50 Dose: 75 mg Documented by: Dextrose (Dextrose 50 % 25 Gm/50 Ml Vial) 25 gm IVPUSH Q15M PRN; Protocol PRN Reason: per Hypoglycemia Standing Ord. Enoxaparin Sodium (Enoxaparin Sodium 40 Mg/0.4 Ml Syringe) 40 mg SUBCUT Q24H [facility] Last Admin: 08/16/21 11:39 Dose: 40 mg Documented by: Famotidine (Famotidine 20 Mg Tablet) 20 mg PO BEDTIME [facility] Last Admin: 08/15/21 21:03 Dose: 20 mg Documented by: Gabapentin (Gabapentin 600 Mg Tablet) 600 mg PO TID [facility] Last Admin: 08/16/21 07:50 Dose: 600 mg Documented by: Glucose (Glucose Gel 15 Gm Gel..Gram.) 15 gm PO Q15M PRN; Protocol PRN Reason: per Hypoglycemia Standing Ord. Piperacillin Sod/Tazobactam (Sod 3.375 gm/ Sodium Chloride) 50 mls @ 100 mls/hr IV Q6H [facility] Last Infusion: 08/16/21 09:49 Dose: Infused Documented by: Lactated Ringer's (Lr) 1,000 mls @ 80 mls/hr IVCONT .[id number] [facility] Last Admin: 08/16/21 12:34 Dose: Not Given Documented by: Vancomycin HCl 1,500 mg/ (Sodium Chloride) 500 mls @ 333.333 mls/hr IV Q12H [facility] Last Infusion: 08/16/21 12:14 Dose: Infused Documented by: Insulin Glargine (Insulin Glargine,Hum.Rec.Anlog 100 Unit/Ml 10 Ml Vial) 30 unit SUBCUT BEDTIME [facility] Last Admin: 08/15/21 21:03 Dose: 30 unit Documented by: Insulin Human Lispro (Insulin Lispro 100 Unit/Ml 3 Ml Vial) 0 unit SUBCUT QIDACHS [facility]; Protocol Last Admin: 08/16/21 11:39 Dose: 2 unit Documented by: Metoprolol Succinate (Metoprolol Succinate Er 50 Mg Tab.Er.24h) 50 mg PO DAILY [facility]; Protocol Last Admin: 08/16/21 07:50 Dose: 50 mg Documented by: Morphine Sulfate (Morphine Sulfate 2 Mg/Ml Cartridge) 2 mg IVPUSH Q3H PRN; Protocol PRN Reason: Pain, Mild (Pain Scale 1-3) Last Admin: 08/16/21 10:39 Dose: 2 mg Documented by: Oxycodone HCl (Oxycodone Hcl Immed Release 5 Mg Tablet) 10 mg PO Q4H PRN PRN Reason: Pain, Severe (Pain Scale 7-10) Last Admin: 08/16/21 11:39 Dose: 10 mg Documented by: Pharmacy Consult (Consult Rx Vancomycin Dosing) 1 each MISCELLANE DAILY PRN PRN Reason: Consult order Pharmacy Consult (Consult Rx Perform Med Rec) 1 each MISCELLANE ONCE PRN PRN Reason: Consult order Sodium Chloride (0.9 % Sodium Chloride Flush 3 Ml Syringe) 3 ml IVFLUSH QSHIFT [facility] Last Admin: 08/16/21 07:50 Dose: Not Given Documented by: Home Medications Medication Instructions Recorded Confirmed Last Taken Type atorvastatin 20 mg tablet 1 tab PO BEDTIME 03/24/21 08/14/21 08/13/21 History insulin glargine 100 unit/mL (3 30 unit SUBCUT BEDTIME ml 05/06/21 08/14/21 08/13/21 History mL) subcutaneous pen (Lantus Solostar U-100 Insulin) empagliflozin 25 mg tablet 1 tab PO DAILY 08/14/21 08/14/21 08/13/21 History (Jardiance) Physical Exam Vital Signs: Vital Signs: Last Vital Signs Temp 98.9 F 08/16/21 11:36 Pulse 67 08/16/21 11:36 Resp 18 08/16/21 11:36 BP 174/81 H 08/16/21 11:36 Pulse Ox 98 08/16/21 11:36 BMI result Body Mass Index 32.5 Const: General: cooperative, healthy appearing and comfortable Orientation/consciousness: oriented to person, oriented to place and oriented to time HENMT: Head: Yes normal to inspection Neck: Neck: Yes normal visual inspection Carotids: no bruits Chest: Chest palpation & inspection: normal inspection of the chest Resp: Effort & Inspection: normal respiratory effort and able to speak in complete sentences Auscultation: clear to auscultation bilaterally, no c rackles, no rales, no rhonchi and no wheezes Cardio: Rate: regular rate Rhythm: regular rhythm Heart sounds: S1 normal heart sound present and S2 normal heart sound present Bruits: no carotid bruits Peripheral pulses: Peripheral pulses 2+ throughout GI: Inspection: Yes normal to inspection Skin: Wounds: wounds noted (Left heel clean, right great toe amp intact with surrounding cellulitis.) Hair: normal Neuro: General: oriented to person, oriented to place and oriented to time Cranial nerves: Yes CN's II-XII intact bilaterally and Yes Normal hearing present Cognition (Neuro): normal cognition Motor exam (neuro): 5/5 motor strength present throughout Extrem: Other: venous exam: No significant superficial varicosities or spider telangiectasias, minimal edema General: No clubbing, No cyanosis and No edema Psych: Appearance: grossly normal Mental Status: mental status grossly normal Speech and movement: Normal speech and movement present Results Labs Result diagrams: 08/15/21 07:22 08/16/21 10:14 Labs: Abnormal lab results 08/15/21 08/15/21 08/16/21 Range/Units 16:26 20:20 08:15 POC Glucose 191 H 208 H 155 H (60-115) mg/dL 08/16/21 Range/Units 11:35 POC Glucose 178 H (60-115) mg/dL BMP 08/16/21 10:14 Creatinine 0.80 All other labs normal. Assessment and Plan (1) Ulcer of left heel: Status: Acute In short patient has developed cellulitis of the right great toe amp. He is currently undergoing IV antibiotic therapy in appears to be doing much better with that. Left heel is doing somewhat better and has decreased tenderness. Would recommend continued local wound care. He will need antibiotic therapy. White count is steadily decreasing. We will follow with you. Thank you for allowing us to participate in his care. Procedures Date of Service Date of Service: 08/16/21
[2021-08-16 16:00] VITALS: BP 163/71; PULSE 76; RESP 17; TEMP 37.2; O2SAT 95
--- NOTE | 2021-08-16 16:34 | MHC.CM.PN ---
EMR REVIEWED, PT ADMITTED W/CELLULITIS OF RECENT AMPUTATION SITE, CM MET W/PT WHO IS A&O, REPORTS HE LIVES W/SPOUSE AND DTR, HAS BEEN USING A W/C D/T ISSUES NOW W/BOTH FEET, PT REPORTS HE HAS RADIANCE FOR DAILY WOUND CARE AND USES THE [facility] AND LAST APPT WAS ON 08/12, PT REPRTS HE WAS VACCINATED W/PFIZER AND DATES ARE IN EXPANSE, PT VERIFIES PCP ARYA SANCHES AND HCP IS DTR, COPY HAS BEEN REQUESTED. PT ALSO REPORTED HIS [employer] PLAN WOULDN'T COVER WATCH [employer] AND DTR HAS BEEN TAKING TIME OFF FROM WORK TO ASSIST PT, PT WOULD ALSO LIKE SCRIPT FOR WALKER HE DOES NOT HAVE ONE AT HOME AND HE WOULD LIKE TO BE ABLE TO WALK AROUND AND A SHOWER CHAIR D/T NOT BEING ABLE TO STAND LONG ENOUGH TO TAKE A SHOWER. PT ASKED CM TO CONTACT HIS DTR TO CLARIFY AND CM SPOKE W/MELI PEREZ [phone], REFERRAL SENT TO [facility] WHO CONTATCED DTR AND MET W/PT, PER [facility] PT HAS BEEN UPGRADED TO [employer]ra STANDARD WHICH WILL TAKE UP TO 48 HRS TO GO INTO EFFECT. D/C PLAN: HOME W/RESUMP OF RADIANCE VNA VS NEW LONG-TERM IV ABX, DTR FOR TRANSPORT.
[2021-08-16 16:35] LABS: Glucose, Whole Blood 195 mg/dL (60-115)
[2021-08-16] MEDS: Morphine Sulfate 2 MG/ML CARTRIDGE 3 MG IVPUSH (18:03)
[2021-08-16 20:00] VITALS: BP 176/79; PULSE 80; RESP 16; TEMP 36.6; O2SAT 97
[2021-08-16 20:53] LABS: Glucose, Whole Blood 134 mg/dL (60-115)
[2021-08-16] MEDS: Atorvastatin Calcium 20 MG TABLET PO (21:09)
[2021-08-16] MEDS: Famotidine 20 MG TABLET PO (21:09)
[2021-08-16] MEDS: Insulin Glargine,Hum.rec.anlog 100 UNIT/ML 10 ML VIAL 30 UNIT SUBCUT (21:10)
[2021-08-17] VITALS: BP 172/73; PULSE 73; RESP 17; TEMP 37.1; O2SAT 97
[2021-08-17] MEDS: Lactated Ringers 1,000 ML 80 ML IVCONT (03:36)
[2021-08-17] MEDS: Piperacillin Sodium/Tazobactam 3.375 GM in 0.9 % Sodium Chloride 50 ML IV ×2 (03:37→09:10)
[2021-08-17 04:00] VITALS: BP 164/87; PULSE 70; RESP 16; TEMP 37.4; O2SAT 97
[2021-08-17] MEDS: Morphine Sulfate 2 MG/ML CARTRIDGE 3 MG IVPUSH ×2 (05:06→09:26)
[2021-08-17] MEDS: oxyCODONE HCl Immed Release 5 MG TABLET 10 MG PO (06:15)
[2021-08-17 07:28] VITALS: BP 158/70; PULSE 67; RESP 16; TEMP 36.8; O2SAT 99
[2021-08-17 07:39] LABS: Glucose, Whole Blood 102 mg/dL (60-115)
[2021-08-17 08:26] LABS: Hematocrit 40.8 % (42.0-52.0); Hemoglobin 13.1 g/dl (14.0-18.0); Mean Corpuscular HGB Conc 32.1 g/dl (31.0-36.0); Mean Corpuscular Hemoglobin 26.3 pg (27.0-33.0); Mean Corpuscular Volume 81.9 fL (80.0-98.0); Mean Platelet Volume 10.1 fL (9.4-12.4); Platelet Count 253 X10*3/uL (160-400); Red Blood Count 4.98 X10*6/uL (4.60-5.80); Red Cell Distribution Width 14.7 % (11.0-16.0); White Blood Count 10.4 X10*3/uL (4.8-10.8)
[2021-08-17 08:37] LABS: Creatinine Clr Calc Pharmacy 124.6; Estimated Glomerular Filt Rate > 60
[2021-08-17 08:52] LABS: Vancomycin Trough 12.1 mcg/mL (10.0-20.0)
[2021-08-17 08:57] LABS: Anion Gap 11 (12-20); Blood Urea Nitrogen 12 mg/dL (9-16); Calcium 9.1 mg/dL (8.4-10.2); Carbon Dioxide 31 mmol/L (22-29); Chloride 101 mmol/L (96-108); Creatinine Clr Calc Pharmacy 121.5; Estimated Glomerular Filt Rate > 60; Glucose Random 114 mg/dL (60-115); Potassium 3.9 mmol/L (3.3-5.1); Sodium 139 mmol/L (135-145)
[2021-08-17] MEDS: Aspirin 81 MG TAB.CHEW PO (09:09)
[2021-08-17 09:10] VITALS: BP 158/70; PULSE 67
[2021-08-17] MEDS: Metoprolol Succinate ER 50 MG TAB.ER.24H PO (09:10)
[2021-08-17] MEDS: Gabapentin 600 MG TABLET PO (09:10)
[2021-08-17] MEDS: Clopidogrel Bisulfate 75 MG TABLET PO (09:10)
[2021-08-17] MEDS: 0.9 % Sodium Chloride Flush 3 ML SYRINGE IVFLUSH (09:12)
--- NOTE | 2021-08-17 09:26 | P.DS_ITS ---
DS: Providers Provider Date of Service: 08/17/21 Date of admission: 08/14/21 12:02 Primary care physician: Shanta Haney MD Consults: 08/14/21 12:42 Consult to Infectious Diseases Routine Consulting Provider: Fannie Stoner Reason for consultation: foot infcetion Has provider been notified: No Consult to Vascular Surgery Routine Consulting Provider: Berto Sheppard Reason for consultation: foot cellulitis Has provider been notified: No DS: Diagnosis Discharge Diagnosis (1) Ulcer of left heel: Status: Acute DS: Summary Hospital Course Hospital Course: 56-year-old male history of diabetes, foot? wound,CAD, hypertension, hyperlipidemia- came to the hospital because had recent right foot- big toe amputation surgery with Dr. Sheppard due to foot ulcer. he also has left heel wound. ?As per the patient ? 1-2 days after surgery- is started significant foot pain and has still erythema and warmness , no discharge, was difficult to put weight on the foot.? So decided to come to the hospital. ?has leukocytosis of 12, and mild tachycardia- so ED requested admission for? cellulitis of foot. ?discussed with vascular Dr. Sheppard: recommended to continue IV antibiotic and will need for vascular follow-up. Denies any new complaint of chest pain or shortness of breath or abdominal pain or fever or chills or nausea or vomiting Denies any cough Denies any weakness or numbness. ?lab imaging reviewed personally and interpreted : ?WBC 12 ?BUN 17 creatinine 0.76 ?foot x-ray:IMPRESSION: Unremarkable left foot except for a calcaneal heel and retrocalcaneal enthesophytes. There is a soft tissue ulceration along the posterior heel. ? Amputation of right great toe. No suggestion for osteomyelitis. There is nonspecific mild soft tissue swelling likely related to surgery. ? In the ED patient was given vanco and Zosyn and admission was requested for cellulitis? At [facility]. Hospital course:Essentially the patient who has history of diabetes and diabetic foot ulcer of left big toe had ampuatation on q by Dr. Sheppard and presented with rednedss in the area of ampuation andt was admitted for cellulitis of ampuated left big toe site, xray showed no evidence of osteomylitis. While hospitaliazed has been treated with IV Vancomycin and Zosyn with improvement in the erythema.. Was seen by Vascular surgion Valarie who performed the operation and recommends no further intervention other than antibiotics therapy. Was also seen by Dr. Stoner from infectious diease and at this point recommends 10 days of Oral Doxycyline. Cultures have been negative. Will discharge with Doxy for 10 days and oxycodone for pain. Time Spent with Patient Time attestation: Total time spent providing and/or coordinating discharge services: Discharge coordination time: Greater than 30 minutes Quality: Stroke Does the patient have a stroke diagnosis?: No Physical Exam Verdana 4l Vital Signs: Verdana 4d Verdana 4d Vital Signs: Verdana 4d Verdana 4Bd Last Vital Signs Verdana 4d Marriage And Family Counselor New 4d Marriage And Family Counselor New 4d Temp 98.3 F 08/17/21 07:28 Marriage And Family Counselor New 4d Pulse 67 08/17/21 07:28 Marriage And Family Counselor NewNew 4d Resp 16 08/17/21 07:28 BP 158/70 H 08/17/21 07:28 Pulse Ox 99 08/17/21 07:28 BMI result Body Mass Index 32.5 Const: Other: General: AO X 3, no acute distress Resp: CTA bilateral CVS: S1,S2,RRR GI: +BS, NT, no distention Skin: No rash Neuro: motor grossly intact Psych: appropriate affect DS: Data Data Completed and Pending Completed studies during hospitalization [Text1]: Procedures Dilation of Right Ureter with Intraluminal Device, Via Natural or Artificial Opening Endoscopic (06/21/20) Extirpation of Matter from Right Ureter, Via Natural or Artificial Opening Endoscopic (06/21/20) Fluoroscopy of Right Kidney, Ureter and Bladder (06/21/20) Labs on day of discharge: Laboratory Results - last 24 hr 08/16/21 08/16/21 08/16/21 10:14 11:35 16:24 WBC RBC Hgb Hct MCV MCH MCHC RDW Plt Count MPV Absolute Nucleated RBC Nucleated RBC % (auto) Sodium Potassium Chloride Carbon Dioxide Anion Gap BUN Creatinine 0.80 Estim Creat Clear Calc 121.5 Estimated GFR > 60 POC Glucose 178 H 195 H Random Glucose Calcium Vancomycin Trough 08/16/21 08/17/21 08/17/21 20:44 07:24 08:17 WBC RBC Hgb Hct MCV MCH MCHC RDW Plt Count MPV Absolute Nucleated RBC Nucleated RBC % (auto) Sodium Potassium Chloride Carbon Dioxide Anion Gap BUN Creatinine 0.78 Estim Creat Clear Calc 124.6 Estimated GFR > 60 POC Glucose 134 H 102 Random Glucose Calcium Vancomycin Trough 08/17/21 08/17/21 08/17/21 08:17 08:17 08:17 WBC 10.4 RBC 4.98 Hgb 13.1 L Hct 40.8 L MCV 81.9 MCH 26.3 L MCHC 32.1 RDW 14.7 Plt Count 253 MPV 10.1 Absolute Nucleated RBC 0.000 Nucleated RBC % (auto) 0.0 Sodium 139 Potassium 3.9 Chloride 101 Carbon Dioxide 31 H Anion Gap 11 L BUN 12 Creatinine 0.80 Estim Creat Clear Calc 121.5 Estimated GFR > 60 POC Glucose Random Glucose 114 Calcium 9.1 Vancomycin Trough 12.1 Preliminary micro results at discharge 08/14/21 08:31 Blood Culture - Preliminary Blood - Venous No growth after 48 hours. 08/14/21 08:06 Blood Culture - Preliminary Blood - Venous No growth after 48 hours. Discharge Plan Discharge Anticipated Discharge Date/Time: 08/17/21 09:11 Patient Disposition: Home, Self-Care Discharge Diagnosis: Cellulitis of left aputated left big toe site Referrals: Shanta Haney MD [Primary Care Provider] - 1 Week Berto Sheppard MD [Physician] - 1 Week Discharge Medications: New oxycodone 5 mg tablet 5 mg PO Q6H PRN (Reason: pain) Qty: 14 RF: 0 doxycycline hyclate 100 mg tablet 100 mg PO BID 10 Days Qty: 20 RF: 0 Continued metoprolol succinate 50 mg tablet extended release 24 hr 50 mg PO DAILY Qty: 30 RF: 2 clopidogrel [Plavix] 75 mg tablet 75 mg PO DAILY Qty: 30 RF: 5 atorvastatin 20 mg tablet 1 tab PO BEDTIME RF: 0 oxycodone-acetaminophen [Percocet] 5-325 mg tablet 1 tab PO Q6H PRN (Reason: pain) Qty: 14 RF: 0 Jardiance 25 mg tablet 1 tab PO DAILY RF: 0 insulin lispro [Humalog KwikPen Insulin] 100 unit/mL insulin pen 17 unit SUBCUT BIDAC Qty: 15 RF: 5 Lantus Solostar U-100 Insulin 100 unit/mL (3 mL) insulin pen 30 unit subcut BEDTIME RF: 0 gabapentin 600 mg tablet 600 mg PO TID Qty: 90 RF: 4 aspirin 81 mg tablet,chewable 81 mg PO DAILY Qty: 30 RF: 5 diclofenac sodium 1 % gel 2 g topical QID PRN (Reason: pain) Qty: 100 RF: 1 acetaminophen [Tylenol 8 Hour] 650 mg tablet extended release 650 mg PO Q12H PRN (Reason: pain) Qty: 60 RF: 0 Discharge Orders: Discharge Order (Routine); Ordered 08/17/21 Ordered By: Talon Mejia Diet: advance to usual diet and diabetic diet Activity on Discharge: As tolerated Stand Alone Forms: Patient Portal Discharge page Care Plan Goals: Full resolution of infection from ampuated site Health Concerns: Cellulitis of ampuated site Plan of Treatment: Take Doxycyline as directed and follow up with your Doctor in a week Assessment: As above
--- NOTE | 2021-08-17 10:06 | MHC.CM.PN ---
PT MEDICALLY CLEARED FOR D/C, CM HAS CONTACTED [facility] FOR DAILY NURSING AND [facility] APPTS, , DTR FOR TRANSPORT.
[2021-08-17] MEDS: vancomycin HCL 1,500 MG in 0.9 % Sodium Chloride 500 ML 333.33 MG IV (10:28)
--- NOTE | 2021-08-17 11:09 | W.PM.IDCN ---
History of Present Illness Data of Consult Service Date: 08/16/21 Requesting physician: Hallie Petersen Primary Care Provider: Shanta Haney MD HPI Reason for consult: foot ulcer He had amputation right great toe on 08/09 and then three days after became red He went to Wound Clinic and had more pain He has no fever or chills Prior culture Providencia Review of Systems Review of Systems: Yes all other systems are reviewed and are negative [facility] Past Medical History Medical History Alcohol abuse Arthritis CAD (coronary artery disease) Chronic pancreatitis Chronic 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 Diabetes mellitus with hyperglycemia, with long-term current use of insulin Essential hypertension Failure of outpatient treatment Hyperlipidemia Increased BMI Intractable left heel pain Kidney calculus Neuropathy Type 2 diabetes mellitus with diabetic polyneuropathy Type 2 diabetes mellitus with hyperglycemia Family History Family History Mother MA (myocardial infarction), Onset Age: 64 Diabetes mellitus HTN (hypertension) Maternal Grandmother Diabetes mellitus Family history: reviewed and not pertinent Surgical History Surgical History Hx of heart artery stent Hx of lithotripsy S/P debridement Status post laparoscopic cholecystectomy Social History Social History Household Members: Spouse and Children Household Members Other:: and daughter Housing: Apartment Do you presently have visiting nurse or other home services: Yes (wound care nurse) Alcohol intake: current Alcohol intake frequency: does not drink Patient Tobacco Use Status: Former Tobacco user Quit Date: 3 weeks ago Tobacco use type: Cigarette Cigarette Packs Per Day: 1 Cigarettes Per Day: 20.0 Years Smoked: 28 Second Hand Smoke Exposure: Yes Use of substances other than those prescribed or required for medical reasons: No Substance Use Type: Marijuana Currently Displaying Signs/Symptoms of Drug Intoxication Withdrawal: No Have you been hit, kicked, punched, or otherwise hurt by someone within the past year? If so, by whom?: No Do you feel safe in your current relationship?: Yes Is there a partner from a previous relationship who is making you feel unsafe now?: No Are you made to feel afraid or neglected: No Spiritual Healthcare Practices: none Adventism Healthcare Practices: none Cultural Healthcare Practices: none Advance Directives: Yes Advance Directives on File: Yes Advance Directives Date on File: 04/17/21 Do you have thoughts of harming others: None Do you have a plan to hurt others: No Plan Recently lost weight without trying: No How much weight loss: Not applicable Eating poorly because of decreased appetite: No Nutrition screen score: 0 Nutrition Risks: No Nutritional Risk Poor oral hygiene: No service: No Current occupational status: employed Meds Allergies Allergy/AdvReac Type Severity Reaction Status Date / Time No Known Allergies Allergy Verified 07/29/21 13:22 [No Known Allergies*] Active Medications: Current Medications Acetaminophen (Acetaminophen 325 Mg Tablet) 650 mg PO Q12H PRN PRN Reason: pain Last Admin: 08/16/21 08:43 Dose: 650 mg Documented by: Aspirin (Aspirin 81 Mg Tab.Chew) 81 mg PO DAILY SHELLY Last Admin: 08/17/21 09:09 Dose: 81 mg Documented by: Atorvastatin Calcium (Atorvastatin Calcium 20 Mg Tablet) 20 mg PO BEDTIME SHELLY Last Admin: 08/16/21 21:09 Dose: 20 mg Documented by: Clopidogrel Bisulfate (Clopidogrel Bisulfate 75 Mg Tablet) 75 mg PO DAILY SHELLY Last Admin: 08/17/21 09:10 Dose: 75 mg Documented by: Dextrose (Dextrose 50 % 25 Gm/50 Ml Vial) 25 gm IVPUSH Q15M PRN; Protocol PRN Reason: per Hypoglycemia Standing Ord. Enoxaparin Sodium (Enoxaparin Sodium 40 Mg/0.4 Ml Syringe) 40 mg SUBCUT Q24H SHELLY Last Admin: 08/16/21 11:39 Dose: 40 mg Documented by: Famotidine (Famotidine 20 Mg Tablet) 20 mg PO BEDTIME SHELLY Last Admin: 08/16/21 21:09 Dose: 20 mg Documented by: Gabapentin (Gabapentin 600 Mg Tablet) 600 mg PO TID SHELLY Last Admin: 08/17/21 09:10 Dose: 600 mg Documented by: Glucose (Glucose Gel 15 Gm Gel..Gram.) 15 gm PO Q15M PRN; Protocol PRN Reason: per Hypoglycemia Standing Ord. Piperacillin Sod/Tazobactam (Sod 3.375 gm/ Sodium Chloride) 50 mls @ 100 mls/hr IV Q6H SHELLY Last Infusion: 08/17/21 10:44 Dose: Infused Documented by: Lactated Ringer's (Lr) 1,000 mls @ 80 mls/hr IVCONT .[id number] [facility] Last Admin: 08/17/21 03:36 Dose: 80 mls/hr Documented by: Vancomycin HCl 1,500 mg/ (Sodium Chloride) 500 mls @ 333.333 mls/hr IV Q12H [facility] Last Admin: 08/17/21 10:28 Dose: 333.33 mls/hr Documented by: Insulin Glargine (Insulin Glargine,Hum.Rec.Anlog 100 Unit/Ml 10 Ml Vial) 30 unit SUBCUT BEDTIME [facility] Last Admin: 08/16/21 21:10 Dose: 30 unit Documented by: Insulin Human Lispro (Insulin Lispro 100 Unit/Ml 3 Ml Vial) 0 unit SUBCUT QIDACHS [facility]; Protocol Last Admin: 08/17/21 08:13 Dose: Not Given Documented by: Metoprolol Succinate (Metoprolol Succinate Er 50 Mg Tab.Er.24h) 50 mg PO DAILY [facility]; Protocol Last Admin: 08/17/21 09:10 Dose: 50 mg Documented by: Morphine Sulfate (Morphine Sulfate 2 Mg/Ml Cartridge) 3 mg IVPUSH Q3H PRN; Protocol PRN Reason: Pain, Mild (Pain Scale 1-3) Last Admin: 08/17/21 09:26 Dose: 3 mg Documented by: Oxycodone HCl (Oxycodone Hcl Immed Release 5 Mg Tablet) 10 mg PO Q4H PRN PRN Reason: Pain, Severe (Pain Scale 7-10) Last Admin: 08/17/21 06:15 Dose: 10 mg Documented by: Pharmacy Consult (Consult Rx Vancomycin Dosing) 1 each MISCELLANE DAILY PRN PRN Reason: Consult order Pharmacy Consult (Consult Rx Perform Med Rec) 1 each MISCELLANE ONCE PRN PRN Reason: Consult order Sodium Chloride (0.9 % Sodium Chloride Flush 3 Ml Syringe) 3 ml IVFLUSH QSHIFT [facility] Last Admin: 08/17/21 09:12 Dose: 3 ml Documented by: Home Medications Medication Instructions Recorded Confirmed Last Taken Type atorvastatin 20 mg tablet 1 tab PO BEDTIME 03/24/21 08/14/21 08/13/21 History insulin glargine 100 unit/mL (3 30 unit SUBCUT BEDTIME ml 05/06/21 08/14/21 08/13/21 History mL) subcutaneous pen (Lantus Solostar U-100 Insulin) empagliflozin 25 mg tablet 1 tab PO DAILY 08/14/21 08/14/21 08/13/21 History (Jardiance) Physical Exam Vital Signs: Vital Signs: Last Vital Signs Temp 98.3 F 08/17/21 07:28 Pulse 67 08/17/21 09:10 Resp 16 08/17/21 07:28 BP 158/70 H 08/17/21 09:10 Pulse Ox 99 08/17/21 07:28 BMI result Body Mass Index 32.5 Const: General: cooperative Eyes: General: appearance normal, both eyes and all related structures Resp: Effort & Inspection: normal respiratory effort Cardio: Rate: regular rate Rhythm: regular rhythm GI: Palpation (GI): Soft to palpation and nontender Extrem: Other: right great toe slightly red,amp site Results Labs CBC & Chem 7: 08/17/21 08:17 08/17/21 08:17 Labs: Short CBC 08/17/21 Range/Units 08:17 WBC 10.4 (4.8-10.8) X10*3/uL Hgb 13.1 L (14.0-18.0) g/dl Hct 40.8 L (42.0-52.0) % Plt Count 253 (160-400) X10*3/uL BMP 08/17/21 08/17/21 08:17 08:17 Sodium 139 Potassium 3.9 Chloride 101 Carbon Dioxide 31 H BUN 12 Creatinine 0.78 0.80 Calcium 9.1 Microbiology Microbiology Results: Microbiology 08/14/21 08:31 Blood - Venous Blood Culture - Preliminary No growth after 48 hours. 08/14/21 08:06 Blood - Venous Blood Culture - Preliminary No growth after 48 hours. Assessment and Plan (1) Diabetic foot ulcer: Status: Acute diabetic foot ulcer post amputation There is concern over infection deep although unremarkable foot films There is no MRSA,prior Providencia Zosyn for three weeks Po Levaquin for three weeks if able due to resistant organism
[2021-08-17 11:30] VITALS: BP 136/74; PULSE 69; RESP 16; TEMP 36.4; O2SAT 99
[2021-08-17 11:42] LABS: Glucose, Whole Blood 201 mg/dL (60-115)
[2021-08-17] MEDS: Enoxaparin Sodium 40 MG/0.4 ML SYRINGE SUBCUT (11:55)
[2021-08-17] MEDS: Insulin Lispro 100 UNIT/ML 3 ML VIAL SUBCUT (11:56)
--- NOTE | 2021-08-17 13:16 | PC.NURSE ---
Skin/wound assessment completed. Patient has a diabetic ulcer to left heel with some granulation and slough. The wound was debrided by Dr. Sheppard. Silver alginate applied to wound bed covered with non woven gauze and roll gauze. He also has a right great toe amp which has sutures covered with xeroform and foam dressing. No other skin issues noted at this time.
== END 2021-08-17 15:49 | disposition home or self-care (01) | DRG 349 ==
LOC: HO.ED 08:34 → HO.EDOVER 12:06 → HO.S3 16:50
PROVIDERS: Admitting Provider Internal Medicine; Emergency Provider Emergency Medicine; PCP Internal Medicine; Visit Provider Internal Medicine
DX: T87.43 Infection of amputation stump, right lower extremity (principal); E11.621 Type 2 diabetes mellitus with foot ulcer; L03.115 Cellulitis of right lower limb; E11.40 Type 2 diabetes mellitus with diabetic neuropathy, unspecified; I10 Essential (primary) hypertension; L97.429 Non-pressure chronic ulcer of left heel and midfoot with unspecified severity; I25.10 Atherosclerotic heart disease of native coronary artery without angina pectoris; Z20.822 Contact with and (suspected) exposure to COVID-19; Z79.02 Long term (current) use of antithrombotics/antiplatelets; Z87.891 Personal history of nicotine dependence; Z79.4 Long term (current) use of insulin; Z79.82 Long term (current) use of aspirin; Z79.899 Other long term (current) drug therapy
CPT/HCPCS: 36415; 73620; 80048; 80076; 80202; 82565; 82947; 83605; 85025; 85027; 85610; 85652; 85730; 86140; 87040; 87635; 96365; 96366; 96367; 96375; 99218; 99285; J1170; J1650; J2270; J2543; J3370

== ENCOUNTER 2021-08-18 09:55 | Inpatient (IN) | payer OTHER, SELFPAY ==
[2021-08-18] VITALS (7 sets, daily range): BP systolic 145–207; BP diastolic 66–92; PULSE 73–99; RESP 16–24; TEMP 37.1–38.6; O2SAT 96–98; BMI 29.9
--- NOTE | 2021-08-18 11:05 | ED.GENADULT ---
HPI - General Adult General Chief complaint: Extremity Injury, Lower Stated complaint: CHEST PRESSURE,FEVER 101,BP 195/96,?INF PER EMS Time Seen by Provider: 08/18/21 10:24 Source: patient Mode of arrival: EMS Limitations: no limitations History of Present Illness HPI narrative: 56-year-old male who presents emergency department by ambulance for evaluation of pain swelling and redness of his right lower extremity. The patient was recently admitted from 08/14/2021 until 08/17/2021 (yesterday) for cellulitis of his right foot. The patient does have diabetes with diabetic neuropathy, he had an amputation of his right great toe. The patient states that his surgeon debrided his right toe and left heel on 08/09/2021. On 08/14/2021, he presented to the emergency department was diagnosed with cellulitis of the right foot in the area of the right great toe, he was hospitalized and treated with Zosyn and vancomycin. He was seen by his vascular surgeon, Dr. Sheppard and ID. He had x-rays which were negative for osteomyelitis. He was discharged yesterday on doxycycline 100 mg twice a day for 10 days. He states that his foot did improve significantly at the time of discharge but yesterday when he got home he states that he had increased pain and redness with increased swelling of the right foot. He states that he felt hot and cold at home and also had shaking chills. He states that he was very fatigued. He states that currently he has a very severe, 9/10, squeezing, intermittent pain in his right foot which will last seconds, resolve and then the pain come back. He was concerned that the foot was significantly more swollen than it was prior to discharge therefore called an ambulance and came back to the emergency department. Initial vital signs revealed a fever of 101.4? F. Related Data Home Medications Medication Instructions Recorded Confirmed atorvastatin 20 mg tablet 1 tab PO BEDTIME 03/24/21 08/14/21 insulin glargine 100 unit/mL (3 30 unit SUBCUT BEDTIME ml 05/06/21 08/14/21 mL) subcutaneous pen (Lantus Solostar U-100 Insulin) empagliflozin 25 mg tablet 1 tab PO DAILY 08/14/21 08/14/21 (Jardiance) Previous Rx's Medication Instructions Recorded aspirin 81 mg chewable tablet 81 mg PO DAILY #30 tab 05/06/21 gabapentin 600 mg tablet 600 mg PO TID #90 tab 05/06/21 insulin lispro 100 unit/mL 17 unit (0.17 mL) SUBCUT BIDAC #15 05/06/21 subcutaneous pen (Humalog KwikPen ml (U-100) Insulin) acetaminophen 650 mg 650 mg PO Q12H PRN #60 tab 06/17/21 tablet,extended release (Tylenol 8 Hour) diclofenac sodium 1 % topical gel 2 g TOPICAL QID PRN #100 g 06/17/21 metoprolol succinate 50 mg 50 mg PO DAILY #30 tab 08/02/21 tablet,extended release 24 hr clopidogrel 75 mg tablet (Plavix) 75 mg PO DAILY #30 tab 08/03/21 oxycodone-acetaminophen 5 mg-325 1 tab PO Q6H PRN #14 tab 08/09/21 mg tablet (Percocet) doxycycline hyclate 100 mg tablet 100 mg PO BID 10 Days #20 tab 08/17/21 oxycodone 5 mg tablet 5 mg PO Q6H PRN #14 tab 08/17/21 Allergies Allergy/AdvReac Type Severity Reaction Status Date / Time No Known Allergies Allergy Verified 07/29/21 13:22 [No Known Allergies*] Review of Systems Review of Systems: Yes all other systems are reviewed and are negative PMFSH Past Medical History Medical History Alcohol abuse Arthritis CAD (coronary artery disease) Chronic pancreatitis Chronic 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 Diabetes mellitus with hyperglycemia, with long-term current use of insulin Essential hypertension Failure of outpatient treatment Hyperlipidemia Increased BMI Intractable left heel pain Kidney calculus Neuropathy Type 2 diabetes mellitus with diabetic polyneuropathy Type 2 diabetes mellitus with hyperglycemia Surgical History Hx of heart artery stent Hx of lithotripsy S/P debridement Status post laparoscopic cholecystectomy Family History Family History Mother [place] (myocardial infarction), Onset Age: 64 Diabetes mellitus HTN (hypertension) Maternal Grandmother Diabetes mellitus Social History Social History Household Members: Spouse and Children Household Members Other:: and daughter Housing: Apartment Do you presently have visiting nurse or other home services: Yes (wound care nurse) Alcohol intake: current Alcohol intake frequency: does not drink Patient Tobacco Use Status: Former Tobacco user Quit Date: 3 weeks ago Tobacco use type: Cigarette Cigarette Packs Per Day: 1 Cigarettes Per Day: 20.0 Years Smoked: 28 Second Hand Smoke Exposure: Yes Substance Use Type: Marijuana Advance Directives: No Advance Directives Information Provided: Yes Advance Directives Date on File: 04/17/21 service: No Current occupational status: employed Physical Exam Vital Signs: Vital Signs: Last Vital Signs Temp 99.2 F 08/18/21 12:00 Pulse 99 08/18/21 10:12 Resp 18 08/18/21 10:12 BP 207/92 H 08/18/21 12:00 Pulse Ox 97 08/18/21 10:12 BMI result Body Mass Index 29.9 Const: Other: Very pleasant, cooperative, male patient, appears to be in distress secondary to his right foot pain. Answers all questions appropriately HENMT: Head: Yes normal to inspection, Yes normocephalic and Yes atraumatic Ears: external ears normal General nose exam: Normal external nose present Face and sinus: Yes normal facial exam Mouth: Normal oral and palatal mucosa present Throat: Yes posterior oropharynx normal Eyes: General: appearance normal, both eyes and all related structures Pupils: Equal, round and reactive pupils present Neck: Neck: Yes normal visual inspection, Yes no lymphadenopathy, Yes trachea midline and Yes supple Chest: Chest palpation & inspection: normal inspection of the chest and normal palpation of entire chest wall Resp: Effort & Inspection: normal respiratory effort and able to speak in complete sentences Auscultation: clear to auscultation bilaterally Cardio: Rate: regular rate Rhythm: regular rhythm Heart sounds: S1 normal heart sound present, S2 normal heart sound present and no murmurs GI: Inspection: Yes normal to inspection Palpation (GI): Soft to palpation, nontender and no guarding Auscultation: normal bowel sounds : General: Yes no CVA tenderness Back/Spine/Pelvis: Back: no CVA tenderness Skin: General skin exam: no rashes or lesions noted Neuro: Cranial nerves: Yes CN's II-XII intact bilaterally and Yes Equal, round and reactive pupils present Cognition (Neuro): normal cognition Motor exam (neuro): 12/30 motor strength present throughout Extrem: Other: Increased soft tissue swelling with erythema to the dorsal and ventral aspects of the 1st and 2nd metatarsal areas, increased warmth, extremely tender to palpation. Psych: Appearance: grossly normal Speech and movement: Normal speech and movement present Affect: normal affect Attitude: cooperative Thought process: Normal thought process present Thought content: Normal thought content present Course Course Course Narrative: 56-year-old male with history of diabetes and diabetic neuropathy who had an amputation to his right great toe with possible debridement done on 08/09/2021 who was recently admitted from until 08/17/2021 for cellulitis of the right foot. Patient was home for approximately 1 day when his erythema, soft tissue swelling and pain returned. The patient had a fever of 101.4? F here in the emergency department. He has had subjective fever at home with shaking chills and fatigue. He is having severe pain in his right foot secondary to his cellulitis and his diabetic neuropathy. I ordered a CBC, CMP, lipase, PT/INR, PTT, CRP, sedimentation rate, lactate, blood cultures x2. Patient was ordered to get morphine 4 mg IV, Zosyn 4.5 g IV and vancomycin 1250 mg IV. I did discuss the patient's presentation with his vascular surgeon, Dr. Sheppard, he recommended that the patient get a plain x-ray to evaluate for osteomyelitis an infectious disease consult. Medical Decision Making Lab Data Result diagrams: 08/18/21 11:07 08/18/21 11:06 Labs: Lab Results 08/18/21 08/18/21 08/18/21 Range/Units 11:06 11:06 11:07 WBC 11.7 H (4.8-10.8) X10*3/uL RBC 5.01 (4.60-5.80) X10*6/uL Hgb 12.9 L (14.0-18.0) g/dl Hct 40.7 L (42.0-52.0) % MCV 81.2 (80.0-98.0) fL MCH 25.7 L (27.0-33.0) pg MCHC 31.7 (31.0-36.0) g/dl RDW 14.7 (11.0-16.0) % Plt Count 268 (160-400) X10*3/uL MPV 10.4 (9.4-12.4) fL Immature Gran % (Auto) 0.4 (0.0-0.4) % Neut % (Auto) 71.5 (45-73) % Lymph % (Auto) 12.2 L (20-40) % [place] % (Auto) 12.5 H (2-11) % Eos % (Auto) 3.1 (0-4) % Baso % (Auto) 0.3 (0-2) % Lymph # (Auto) 1.4 (1.2-4.9) X10*3/uL [place] # (Auto) 1.5 H (0.1-1.2) X10*3/uL Eos # (Auto) 0.4 (0.0-0.4) X10*3/uL Baso # (Auto) 0.0 (0.0-0.2) X10*3/uL Abs Immat Gran (auto) 0.05 H (0.00-0.03) X10*3/uL Absolute Neuts (auto) 8.3 (2.0-8.3) x10*3/uL Absolute Nucleated RBC 0.000 (0.0-0.012) X10*3/uL Nucleated RBC % (auto) 0.0 (0.0-0.2) /100WBC PT 12.9 (9.9-13.0) SEC INR 1.1 (0.9-1.1) APTT 30.2 (24.1-38.0) SEC Sodium 137 (135-145) mmol/L Potassium 4.0 (3.3-5.1) mmol/L Chloride 101 (96-108) mmol/L Carbon Dioxide 26 (22-29) mmol/L Anion Gap 14 (12-20) BUN 14 (9-16) mg/dL Creatinine 0.89 (0.5-1.4) mg/dL Estim Creat Clear Calc 92.2 Estimated GFR > 60 Random Glucose 241 H D (60-115) mg/dL Lactic Acid (0.5-2.0) mmol/L Calcium 9.3 (8.4-10.2) mg/dL Total Bilirubin 0.4 (0.0-1.0) mg/dL AST 16 (5-37) U/L ALT 19 (0-40) U/L Alkaline Phosphatase 83 (39-117) U/L C-Reactive Protein 13.99 H (< or = 0.50) mg/dL Total Protein 7.6 (6.5-8.0) g/dL Albumin 3.6 (3.5-5.0) g/dL Lipase 16 (8-78) U/L 08/18/ Range/Units 11:07 WBC (4.8-10.8) X10*3/uL RBC (4.60-5.80) X10*6/uL Hgb (14.0-18.0) g/dl Hct (42.0-52.0) % MCV (80.0-98.0) fL MCH (27.0-33.0) pg MCHC (31.0-36.0) g/dl RDW (11.0-16.0) % Plt Count (160-400) X10*3/uL MPV (9.4-12.4) fL Immature Gran % (Auto) (0.0-0.4) % Neut % (Auto) (45-73) % Lymph % (Auto) (20-40) % [place] % (Auto) (2-11) % Eos % (Auto) (0-4) % Baso % (Auto) (0-2) % Lymph # (Auto) (1.2-4.9) X10*3/uL [place] # (Auto) (0.1-1.2) X10*3/uL Eos # (Auto) (0.0-0.4) X10*3/uL Baso # (Auto) (0.0-0.2) X10*3/uL Abs Immat Gran (auto) (0.00-0.03) X10*3/uL Absolute Neuts (auto) (2.0-8.3) x10*3/uL Absolute Nucleated RBC (0.0-0.012) X10*3/uL Nucleated RBC % (auto) (0.0-0.2) /100WBC PT (9.9-13.0) SEC INR (0.9-1.1) APTT (24.1-38.0) SEC Sodium (135-145) mmol/L Potassium (3.3-5.1) mmol/L Chloride (96-108) mmol/L Carbon Dioxide (22-29) mmol/L Anion Gap (12-20) BUN (9-16) mg/dL Creatinine (0.5-1.4) mg/dL Estim Creat Clear Calc Estimated GFR Random Glucose (60-115) mg/dL Lactic Acid 1.2 (0.5-2.0) mmol/L Calcium (8.4-10.2) mg/dL Total Bilirubin (0.0-1.0) mg/dL AST (5-37) U/L ALT (0-40) U/L Alkaline Phosphatase (39-117) U/L C-Reactive Protein (< or = 0.50) mg/dL Total Protein (6.5-8.0) g/dL Albumin (3.5-5.0) g/dL Lipase (8-78) U/L Discharge Plan Discharge Patient Disposition: Admitted As Inpatient Prescriptions: No Action metoprolol succinate 50 mg tablet extended release 24 hr 50 mg PO DAILY Qty: 30 RF: 2 clopidogrel [Plavix] 75 mg tablet 75 mg PO DAILY Qty: 30 RF: 5 atorvastatin 20 mg tablet 1 tab PO BEDTIME RF: 0 oxycodone-acetaminophen [Percocet] 5-325 mg tablet 1 tab PO Q6H PRN (Reason: pain) Qty: 14 RF: 0 Jardiance 25 mg tablet 1 tab PO DAILY RF: 0 doxycycline hyclate 100 mg tablet 100 mg PO BID 10 Days Qty: 20 RF: 0 oxycodone 5 mg tablet 5 mg PO Q6H PRN (Reason: pain) Qty: 14 RF: 0 insulin lispro [Humalog KwikPen Insulin] 100 unit/mL insulin pen 17 unit SUBCUT BIDAC Qty: 15 RF: 5 Lantus Solostar U-100 Insulin 100 unit/mL (3 mL) insulin pen 30 unit subcut BEDTIME RF: 0 gabapentin 600 mg tablet 600 mg PO TID Qty: 90 RF: 4 aspirin 81 mg tablet,chewable 81 mg PO DAILY Qty: 30 RF: 5 diclofenac sodium 1 % gel 2 g topical QID PRN (Reason: pain) Qty: 100 RF: 1 acetaminophen [Tylenol 8 Hour] 650 mg tablet extended release 650 mg PO Q12H PRN (Reason: pain) Qty: 60 RF: 0
[2021-08-18] MEDS: Morphine Sulfate 4 MG/ML CARTRIDGE IVPUSH (11:09)
[2021-08-18] MEDS: Piperacillin Sodium/Tazobactam 4.5 GM in 0.9 % Sodium Chloride 100 ML IV (11:10)
[2021-08-18] MEDS: Acetaminophen 325 MG TABLET 975 MG PO (11:10)
[2021-08-18 11:17] LABS: MANUAL DIFF FLAG NO
[2021-08-18 11:18] LABS: Basophils Percent Auto 0.3 % (0-2); Eosinophils Absolute Auto 0.4 X10*3/uL (0.0-0.4); Eosinophils Percent Auto 3.1 % (0-4); Hematocrit 40.7 % (42.0-52.0); Hemoglobin 12.9 g/dl (14.0-18.0); Imm Gran Abs Auto 0.05 X10*3/uL (0.00-0.03); Imm Gran Pct Auto 0.4 % (0.0-0.4); Lymphocytes Absolute Auto 1.4 X10*3/uL (1.2-4.9); Lymphocytes Percent Auto 12.2 % (20-40); Mean Corpuscular HGB Conc 31.7 g/dl (31.0-36.0); Mean Corpuscular Hemoglobin 25.7 pg (27.0-33.0); Mean Corpuscular Volume 81.2 fL (80.0-98.0); Mean Platelet Volume 10.4 fL (9.4-12.4); Monocytes Absolute Auto 1.5 X10*3/uL (0.1-1.2); Monocytes Percent Auto 12.5 % (2-11); Neutrophils Absolute Auto 8.3 x10*3/uL (2.0-8.3); Neutrophils Percent Auto 71.5 % (45-73); Platelet Count 268 X10*3/uL (160-400); Red Blood Count 5.01 X10*6/uL (4.60-5.80); Red Cell Distribution Width 14.7 % (11.0-16.0); White Blood Count 11.7 X10*3/uL (4.8-10.8)
[2021-08-18 11:23] LABS: INTERNATIONAL NORM RATIO 1.1 (0.9-1.1); Prothrombin Time 12.9 SEC (9.9-13.0)
[2021-08-18 11:26] LABS: Partial Thromboplastin Time 30.2 SEC (24.1-38.0)
[2021-08-18 11:27] LABS: Lactic Acid 1.2 mmol/L (0.5-2.0)
[2021-08-18] MEDS: 0.9 % Sodium Chloride 1,000 ML 999 ML IV (11:30)
[2021-08-18 11:33] LABS: Alanine Aminotransferase 19 U/L (0-40); Albumin Level 3.6 g/dL (3.5-5.0); Alkaline Phosphatase 83 U/L (39-117); Anion Gap 14 (12-20); Aspartate Amino Transferase 16 U/L (5-37); Bilirubin Total 0.4 mg/dL (0.0-1.0); Blood Urea Nitrogen 14 mg/dL (9-16); C Reactive Protein 13.99 mg/dL (< or = 0.50); Calcium 9.3 mg/dL (8.4-10.2); Carbon Dioxide 26 mmol/L (22-29); Chloride 101 mmol/L (96-108); Creatinine Clr Calc Pharmacy 92.2; Estimated Glomerular Filt Rate > 60; Glucose Random 241 mg/dL (60-115); Lipase 16 U/L (8-78); Sodium 137 mmol/L (135-145); Total Protein 7.6 g/dL (6.5-8.0)
[2021-08-18] MEDS: vancomycin HCL 1,000 MG, vancomycin HCL 750 MG in 0.9 % Sodium Chloride 500 ML 267.5 MG IV (11:54)
[2021-08-18 11:55] LABS: Influenza A PCR NEGATIVE (Negative); Influenza B PCR NEGATIVE (Negative); Resp Syncy Virus RNA Qual PCR NEGATIVE (Negative); SARS COV2 PCR INHOUSE NEGATIVE (Negative)
--- NOTE | 2021-08-18 12:50 | PHA.MEDREC ---
Pharmacy Consult ? Medication Reconciliation Pharmacy has completed the medication reconciliation. 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 Cristal Hameed, MichaelD
[2021-08-18 13:41] LABS: Erythrocyte Sedimentation Rate 77 MM/HR (0-15)
[2021-08-18] MEDS: HYDROmorphone HCl 0.5 MG/0.5 ML SYRINGE IVPUSH ×3 (14:07→22:04)
[2021-08-18] MEDS: Gabapentin 600 MG TABLET PO ×2 (14:07→19:38)
--- NOTE | 2021-08-18 15:04 | PC.NURSE ---
LABS COMPLETED MEDS GIVEN ORDERED, PT MEDICATED PRN FOR PAIN. SEEN BY HOSPITALIST. NEEDS BEING MET WAITING ON BED ASSIGNMENT
--- NOTE | 2021-08-18 15:36 | PM.IMHP ---
History of Present Illness Date of Service: 08/18/21 Chief Complaint: Redness of amputation 56 year male with diabetes, non-healing right toe ulcer for which he underwent ampuation around Decemeber 13 and was later admitted for cellulitis around ampuation site, was treated with IV antibiotics, cultures were negative he was sent home with oral antibiotics only to return with worsening erythema and is being readmitted for IV antibiotics and likely half-way antibiotics. He's restarted on IV Vanco, culture drawn and will request PICC line for usp Abx Review of Systems Review of Systems: Pain in the foot no fever redness in the foot Yes all other systems are reviewed and are negative [facility] Medical History Alcohol abuse Arthritis CAD (coronary artery disease) Chronic pancreatitis Chronic 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 Diabetes mellitus with hyperglycemia, with long-term current use of insulin Essential hypertension Failure of outpatient treatment Hyperlipidemia Increased BMI Intractable left heel pain Kidney calculus Neuropathy Type 2 diabetes mellitus with diabetic polyneuropathy Type 2 diabetes mellitus with hyperglycemia Family History Mother [place] (myocardial infarction), Onset Age: 64 Diabetes mellitus HTN (hypertension) Maternal Grandmother Diabetes mellitus Surgical History Hx of heart artery stent Hx of lithotripsy S/P debridement Status post laparoscopic cholecystectomy Social History Household Members: Spouse Household Members Other:: and daughter Housing: Apartment Do you presently have visiting nurse or other home services: Yes (vna) Alcohol intake: current Alcohol intake frequency: does not drink Patient Tobacco Use Status: Former Tobacco user Quit Date: 3 weeks ago Tobacco use type: Cigarette Cigarette Packs Per Day: 1 Cigarettes Per Day: 20.0 Years Smoked: 28 Second Hand Smoke Exposure: Yes Use of substances other than those prescribed or required for medical reasons: No Substance Use Type: Marijuana Currently Displaying Signs/Symptoms of Drug Intoxication Withdrawal: No Have you been hit, kicked, punched, or otherwise hurt by someone within the past year? If so, by whom?: No Do you feel safe in your current relationship?: No Is there a partner from a previous relationship who is making you feel unsafe now?: No Are you made to feel afraid or neglected: No Advance Directives: No Advance Directives Information Provided: Yes Advance Directives Date on File: 04/17/21 Do you have thoughts of harming others: None Do you have a plan to hurt others: No Plan Recently lost weight without trying: No Nutrition Risks: No Nutritional Risk Poor oral hygiene: No service: No Current occupational status: unemployed Meds Allergies Allergy/AdvReac Type Severity Reaction Status Date / Time No Known Allergies Allergy Verified 07/29/21 13:22 [No Known Allergies*] Active Medications: Current Medications Acetaminophen (Acetaminophen 325 Mg Tablet) 650 mg PO Q6H PRN PRN Reason: Pain, Mild (Pain Scale 1-3) Aspirin (Aspirin 81 Mg Tab.Chew) 81 mg PO DAILY [facility] Atorvastatin Calcium (Atorvastatin Calcium 20 Mg Tablet) 20 mg PO BEDTIME [facility] Clopidogrel Bisulfate (Clopidogrel Bisulfate 75 Mg Tablet) 75 mg PO DAILY [facility] Gabapentin (Gabapentin 600 Mg Tablet) 600 mg PO TID [facility] Last Admin: 08/18/21 14:07 Dose: 600 mg Documented by: Hydromorphone HCl (Hydromorphone Hcl 0.5 Mg/0.5 Ml Syringe) 0.5 mg IVPUSH Q4H PRN; Protocol PRN Reason: Pain, Severe (Pain Scale 7-10) Last Admin: 08/18/21 14:07 Dose: 0.5 mg Documented by: Piperacillin Sod/Tazobactam (Sod 3.375 gm/ Sodium Chloride) 50 mls @ 100 mls/hr IV Q6H [facility] Vancomycin HCl 1,000 mg/ (Sodium Chloride) 270 mls @ 270 mls/hr IV Q12H [facility] Insulin Glargine (Insulin Glargine,Hum.Rec.Anlog 100 Unit/Ml 10 Ml Vial) 30 unit SUBCUT BEDTIME [facility] Insulin Human Lispro (Insulin Lispro 100 Unit/Ml 3 Ml Vial) 17 unit SUBCUT BIDAC [facility] Metoprolol Succinate (Metoprolol Succinate Er 50 Mg Tab.Er.24h) 50 mg PO DAILY [facility]; Protocol Oxycodone HCl (Oxycodone Hcl Immed Release 5 Mg Tablet) 5 mg PO Q6H PRN PRN Reason: Pain, Severe (Pain Scale 7-10) Pharmacy Consult (Consult Rx Vancomycin Dosing) 1 each MISCELLANE DAILY PRN PRN Reason: Consult order Pharmacy Consult (Consult Rx Perform Med Rec) 1 each MISCELLANE ONCE PRN PRN Reason: Consult order Pharmacy Consult (Consult Rx Vancomycin Dosing) 1 each MISCELLANE DAILY PRN PRN Reason: Consult order Sodium Chloride (0.9 % Sodium Chloride Flush 3 Ml Syringe) 3 ml IVFLUSH QSHIFT [facility] Home Medications Medication Instructions Recorded Confirmed Last Taken Type atorvastatin 20 mg tablet 1 tab PO BEDTIME 03/24/21 08/18/21 08/16/21 History insulin glargine 100 unit/mL (3 30 unit SUBCUT BEDTIME ml 05/06/21 08/18/21 08/16/21 History mL) subcutaneous pen (Lantus Solostar U-100 Insulin) empagliflozin 25 mg tablet 1 tab PO DAILY 08/14/21 08/18/21 08/17/21 History (Jardiance) Physical Exam Vital Signs and Narrative: Vital Signs: Last Vital Signs Temp 99.2 F 08/18/21 12:00 Pulse 73 08/18/21 12:55 Resp 16 08/18/21 12:55 BP 168/85 H 08/18/21 12:55 Pulse Ox 98 08/18/21 12:55 BMI result Body Mass Index 29.9 Constitutional: Alert, in no distress, Mental Status: Oriented to person, place and time. Eyes: Pupils are equal, round and reactive to light. Ear, Nose and Throat: Oropharynx clear, mucous membranes moist. Ears and nose without eformities. Trachea midline. Respiratory: Clear to auscultation. No wheezing, rales or rhonchi. Cardiovascular: S1 S2 regular. No murmurs, rubs or gallops. Gastrointestinal: Abdomen soft, non-tender, non-distended. Normal bowel sounds.? Neurologic: Cranial nerves II-XII grossly intact. No focal neurological deficits. Moves all extremities spontaneously.? Skin: right foot and left heel finding--erythema seems same as yesterday Musculoskeletal: No cyanosis or clubbing. Psychiatric: Normal mood and affect? Results Labs CBC and Chem 7: 08/18/21 11:07 08/19/21 07:54 Labs: Laboratory Results - last 24 hr 08/18/21 08/18/21 08/18/21 11:06 11:06 11:06 MCV MCH MCHC RDW Plt Count MPV Immature Gran % (Auto) Neut % (Auto) Lymph % (Auto) Iron % (Auto) Eos % (Auto) Baso % (Auto) Lymph # (Auto) Iron # (Auto) Eos # (Auto) Baso # (Auto) Abs Immat Gran (auto) Absolute Neuts (auto) Absolute Nucleated RBC Nucleated RBC % (auto) ESR 77 H PT 12.9 INR 1.1 APTT 30.2 Anion Gap Estim Creat Clear Calc Estimated GFR Random Glucose Lactic Acid Calcium Total Bilirubin AST ALT Alkaline Phosphatase C-Reactive Protein Total Protein Albumin Lipase Influenza Type A (PCR) NEGATIVE Influenza Type B (PCR) NEGATIVE RSV RNA Qual (PCR) NEGATIVE SARS-CoV-2 RNA (RT-PCR) NEGATIVE 08/18/21 08/18/21 08/18/21 11:06 11:07 11:07 MCV 81.2 MCH 25.7 L MCHC 31.7 RDW 14.7 Plt Count 268 MPV 10.4 Immature Gran % (Auto) 0.4 Neut % (Auto) 71.5 Lymph % (Auto) 12.2 L Iron % (Auto) 12.5 H Eos % (Auto) 3.1 Baso % (Auto) 0.3 Lymph # (Auto) 1.4 Iron # (Auto) 1.5 H Eos # (Auto) 0.4 Baso # (Auto) 0.0 Abs Immat Gran (auto) 0.05 H Absolute Neuts (auto) 8.3 Absolute Nucleated RBC 0.000 Nucleated RBC % (auto) 0.0 ESR PT INR APTT Anion Gap 14 Estim Creat Clear Calc 92.2 Estimated GFR > 60 Random Glucose 241 H D Lactic Acid 1.2 Calcium 9.3 Total Bilirubin 0.4 AST 16 ALT 19 Alkaline Phosphatase 83 C-Reactive Protein 13.99 H Total Protein 7.6 Albumin 3.6 Lipase 16 Influenza Type A (PCR) Influenza Type B (PCR) RSV RNA Qual (PCR) SARS-CoV-2 RNA (RT-PCR) Assessment and Plan (1) Cellulitis of foot, right: Status: Acute 56/m with diabetes here with post ampuation of right big toe site cellulitis 1. Righ big toe ampuated site Cellulitis -IV Vanco and Zosyn -ID is recommending 6 weeks of IV Abx -consult vascular surgery 2. left heel pain due to ulcer ,neuropathic pain, possible peripheral vascular disease, dilaudid for pain, dut to non-healing status of this wound if amputated site fails he will likely be better 3. CAD: continue antipletlets , metoprolol,and atorvastatin 4. HTN- continue metoprolol, BP stable 5. DM2- continue Lantus # VTE ppx - LMWH Quality Stroke Does the patient have a stroke diagnosis?: No VTE Prior VTE?: No VTE Risk Level:: Medical - moderate - high VTE Device Contraindication: Treatment Not Indicated VTE Drug Contraindication: N/A - Med Ordered
--- NOTE | 2021-08-18 17:12 | PC.NURSE ---
REPORT GIVEN TO KEILA ZAVALA
[2021-08-18 17:58] LABS: Glucose, Whole Blood 127 mg/dL (60-115)
[2021-08-18] MEDS: Insulin Lispro 100 UNIT/ML 3 ML VIAL 10 UNIT SUBCUT (18:03)
[2021-08-18] MEDS: Enoxaparin Sodium 40 MG/0.4 ML SYRINGE SUBCUT (18:03)
[2021-08-18] MEDS: Piperacillin Sodium/Tazobactam 3.375 GM in 0.9 % Sodium Chloride 50 ML IV ×2 (18:04→23:10)
[2021-08-18] MEDS: 0.9 % Sodium Chloride Flush 3 ML SYRINGE IVFLUSH (19:38)
[2021-08-18] MEDS: Acetaminophen 325 MG TABLET 650 MG PO (19:38)
[2021-08-18] MEDS: oxyCODONE HCl Immed Release 5 MG TABLET PO (19:38)
[2021-08-18] MEDS: Atorvastatin Calcium 20 MG TABLET PO (19:38)
--- NOTE | 2021-08-18 20:53 | MHC.CM.PN ---
CM met with admitted patient in 374. Pt is A&Ox3. No IMM necessary. Pt had R great toe amputation for non-healing ulcer on 08/09. Was admitted to [facility] on 08/14-08/17 with cellulitis of R foot. Returned today with worsening redness and edema and fever. Pt has non-healing ulceration on L heel. Pt admits to difficulty getting around the house and thinks he may need STR. Pt will need a PT evaluation. Pt may need PICC line and 6 weeks IV antibiotics. Unsure of disposition at discharge. No referrals placed at this time. HCP on file. HCP/ Ira Dukes ([phone]). Lives with and daughter. Has VNA services through [facility]. Pt has crutches and a walker. Pt is fully vaccinated with Moderna. D/C plan is ?STR, ? home IV antibiotic therapy, ? continuation of existing home services. Will re-assess daily. CM to follow for d/c needs.
[2021-08-18] MEDS: Melatonin 3 MG TABLET 6 MG PO (20:57)
[2021-08-18] MEDS: Insulin Glargine,Hum.rec.anlog 100 UNIT/ML 10 ML VIAL 30 UNIT SUBCUT (20:57)
[2021-08-18 21:01] LABS: Glucose, Whole Blood 205 mg/dL (60-115)
[2021-08-18] MEDS: vancomycin HCL 1,500 MG in 0.9 % Sodium Chloride 500 ML 333.33 MG IV (23:53)
[2021-08-19] VITALS (7 sets, daily range): BP systolic 148–173; BP diastolic 69–90; PULSE 71–79; RESP 17–20; TEMP 36.5–37.2; O2SAT 92–98
[2021-08-19] MEDS: HYDROmorphone HCl 0.5 MG/0.5 ML SYRINGE IVPUSH ×5 (03:17→19:34)
[2021-08-19 04:02] LABS: Glucose, Whole Blood 144 mg/dL (60-115)
[2021-08-19] MEDS: oxyCODONE HCl Immed Release 5 MG TABLET PO ×3 (04:23→18:07)
[2021-08-19] MEDS: Acetaminophen 325 MG TABLET 650 MG PO ×3 (04:23→18:07)
[2021-08-19] MEDS: Piperacillin Sodium/Tazobactam 3.375 GM in 0.9 % Sodium Chloride 50 ML IV ×4 (05:19→23:09)
[2021-08-19] MEDS: Metoprolol Succinate ER 50 MG TAB.ER.24H PO (07:18)
[2021-08-19] MEDS: Aspirin 81 MG TAB.CHEW PO (07:18)
[2021-08-19] MEDS: Clopidogrel Bisulfate 75 MG TABLET PO (07:18)
[2021-08-19] MEDS: 0.9 % Sodium Chloride Flush 3 ML SYRINGE IVFLUSH ×3 (07:18→19:35)
[2021-08-19] MEDS: Gabapentin 600 MG TABLET PO ×3 (07:18→19:35)
[2021-08-19] MEDS: Insulin Lispro 100 UNIT/ML 3 ML VIAL 10 UNIT SUBCUT ×2 (07:23→16:27)
[2021-08-19 07:42] LABS: Glucose, Whole Blood 136 mg/dL (60-115)
[2021-08-19 08:31] LABS: Anion Gap 11 (12-20); Blood Urea Nitrogen 11 mg/dL (9-16); Calcium 9.1 mg/dL (8.4-10.2); Carbon Dioxide 27 mmol/L (22-29); Chloride 101 mmol/L (96-108); Creatinine Clr Calc Pharmacy 105.2; Estimated Glomerular Filt Rate > 60; Glucose Random 134 mg/dL (60-115); Potassium 3.9 mmol/L (3.3-5.1); Sodium 135 mmol/L (135-145)
--- NOTE | 2021-08-19 10:19 | HO.PM.IMPN ---
Subjective Subjective Date of Service: 08/19/21 Interval History: f/u on cellulitis of amputated site, less erythema and pain is better Review of Systems no fever pain in the foot Physical Exam Vital Signs: Vital Signs: Last Vital Signs Temp 97.7 F 08/19/21 07:24 Pulse 77 08/19/21 07:24 Resp 20 08/19/21 07:24 BP 168/81 H 08/19/21 07:24 Pulse Ox 98 08/19/21 07:24 BMI result Body Mass Index 29.9 Const: Other: General: AO X 3, no acute distress Resp: CTA bilateral CVS: S1,S2,RRR GI: +BS, NT, no distention Skin: Neuro: motor grossly intact Psych: appropriate affect Objective Data Active Medications Acetaminophen (Acetaminophen 325 Mg Tablet) 650 mg PO Q6H PRN PRN Reason: Pain, Mild (Pain Scale 1-3) Last Admin: 08/19/21 04:23 Dose: 650 mg Documented by: LUZ ELENA Aspirin (Aspirin 81 Mg Tab.Chew) 81 mg PO DAILY [facility] Last Admin: 08/19/21 07:18 Dose: 81 mg Documented by: HAYDEE Atorvastatin Calcium (Atorvastatin Calcium 20 Mg Tablet) 20 mg PO BEDTIME [facility] Last Admin: 08/18/21 19:38 Dose: 20 mg Documented by: LUZ ELENA Clopidogrel Bisulfate (Clopidogrel Bisulfate 75 Mg Tablet) 75 mg PO DAILY [facility] Last Admin: 08/19/21 07:18 Dose: 75 mg Documented by: HAYDEE Enoxaparin Sodium (Enoxaparin Sodium 40 Mg/0.4 Ml Syringe) 40 mg SUBCUT Q24H [facility] Last Admin: 08/18/21 18:03 Dose: 40 mg Documented by: HAYDEE Gabapentin (Gabapentin 600 Mg Tablet) 600 mg PO TID [facility] Last Admin: 08/19/21 07:18 Dose: 600 mg Documented by: HAYDEE Hydromorphone HCl (Hydromorphone Hcl 0.5 Mg/0.5 Ml Syringe) 0.5 mg IVPUSH Q4H PRN; Protocol PRN Reason: Pain, Severe (Pain Scale 7-10) Last Admin: 08/19/21 07:16 Dose: 0.5 mg Documented by: HAYDEE Piperacillin Sod/Tazobactam (Sod 3.375 gm/ Sodium Chloride) 50 mls @ 100 mls/hr IV Q6H [facility] Last Infusion: 08/19/21 06:08 Dose: 0 mls/hr Documented by: LUZ ELENA Vancomycin HCl 1,500 mg/ (Sodium Chloride) 500 mls @ 333.333 mls/hr IV Q12H [facility] Last Infusion: 08/19/21 01:39 Dose: 0 mls/hr Documented by: LUZ ELENA Insulin Glargine (Insulin Glargine,Hum.Rec.Anlog 100 Unit/Ml 10 Ml Vial) 30 unit SUBCUT BEDTIME [facility] Last Admin: 08/18/21 20:57 Dose: 30 unit Documented by: LUZ ELENA Insulin Human Lispro (Insulin Lispro 100 Unit/Ml 3 Ml Vial) 10 unit SUBCUT BIDAC [facility] Last Admin: 08/19/21 07:23 Dose: 10 unit Documented by: HAYDEE Melatonin (Melatonin 3 Mg Tablet) 6 mg PO BEDTIME PRN PRN Reason: Insomnia Last Admin: 08/18/21 20:57 Dose: 6 mg Documented by: LUZ ELENA Metoprolol Succinate (Metoprolol Succinate Er 50 Mg Tab.Er.24h) 50 mg PO DAILY [facility]; Protocol Last Admin: 08/19/21 07:18 Dose: 50 mg Documented by: HAYDEE Oxycodone HCl (Oxycodone Hcl Immed Release 5 Mg Tablet) 5 mg PO Q6H PRN PRN Reason: Pain, Severe (Pain Scale 7-10) Last Admin: 08/19/21 04:23 Dose: 5 mg Documented by: LUZ ELENA Pharmacy Consult (Consult Rx Vancomycin Dosing) 1 each MISCELLANE DAILY PRN PRN Reason: Consult order Pharmacy Consult (Consult Rx Perform Med Rec) 1 each MISCELLANE ONCE PRN PRN Reason: Consult order Pharmacy Consult (Consult Rx Vancomycin Dosing) 1 each MISCELLANE DAILY PRN PRN Reason: Consult order Sodium Chloride (0.9 % Sodium Chloride Flush 3 Ml Syringe) 3 ml IVFLUSH QSHIFT [facility] Last Admin: 08/19/21 07:18 Dose: 3 ml Documented by: HAYDEE Labs CBC & Chem 7: 08/18/21 11:07 08/19/21 07:54 Labs: Laboratory Results - last 24 hr 08/18/21 08/18/21 08/18/21 11:06 11:06 11:06 MCV MCH MCHC RDW Plt Count MPV Immature Gran % (Auto) Neut % (Auto) Lymph % (Auto) [place] % (Auto) Eos % (Auto) Baso % (Auto) Lymph # (Auto) [place] # (Auto) Eos # (Auto) Baso # (Auto) Abs Immat Gran (auto) Absolute Neuts (auto) Absolute Nucleated RBC Nucleated RBC % (auto) ESR 77 H PT 12.9 INR 1.1 APTT 30.2 Anion Gap Estim Creat Clear Calc Estimated GFR POC Glucose Random Glucose Lactic Acid Calcium Total Bilirubin AST ALT Alkaline Phosphatase C-Reactive Protein Total Protein Albumin Lipase Influenza Type A (PCR) NEGATIVE Influenza Type B (PCR) NEGATIVE RSV RNA Qual (PCR) NEGATIVE SARS-CoV-2 RNA (RT-PCR) NEGATIVE 08/18/21 08/18/21 08/18/21 11:06 11:07 11:07 MCV 81.2 MCH 25.7 L MCHC 31.7 RDW 14.7 Plt Count 268 MPV 10.4 Immature Gran % (Auto) 0.4 Neut % (Auto) 71.5 Lymph % (Auto) 12.2 L [place] % (Auto) 12.5 H Eos % (Auto) 3.1 Baso % (Auto) 0.3 Lymph # (Auto) 1.4 [place] # (Auto) 1.5 H Eos # (Auto) 0.4 Baso # (Auto) 0.0 Abs Immat Gran (auto) 0.05 H Absolute Neuts (auto) 8.3 Absolute Nucleated RBC 0.000 Nucleated RBC % (auto) 0.0 ESR PT INR APTT Anion Gap 14 Estim Creat Clear Calc 92.2 Estimated GFR > 60 POC Glucose Random Glucose 241 H D Lactic Acid 1.2 Calcium 9.3 Total Bilirubin 0.4 AST 16 ALT 19 Alkaline Phosphatase 83 C-Reactive Protein 13.99 H Total Protein 7.6 Albumin 3.6 Lipase 16 Influenza Type A (PCR) Influenza Type B (PCR) RSV RNA Qual (PCR) SARS-CoV-2 RNA (RT-PCR) 08/18/21 08/18/21 08/19/21 17:51 20:50 03:56 MCV MCH MCHC RDW Plt Count MPV Immature Gran % (Auto) Neut % (Auto) Lymph % (Auto) [place] % (Auto) Eos % (Auto) Baso % (Auto) Lymph # (Auto) [place] # (Auto) Eos # (Auto) Baso # (Auto) Abs Immat Gran (auto) Absolute Neuts (auto) Absolute Nucleated RBC Nucleated RBC % (auto) ESR PT INR APTT Anion Gap Estim Creat Clear Calc Estimated GFR POC Glucose 127 H 205 H 144 H Random Glucose Lactic Acid Calcium Total Bilirubin AST ALT Alkaline Phosphatase C-Reactive Protein Total Protein Albumin Lipase Influenza Type A (PCR) Influenza Type B (PCR) RSV RNA Qual (PCR) SARS-CoV-2 RNA (RT-PCR) 08/19/21 08/19/21 07:23 07:54 MCV MCH MCHC RDW Plt Count MPV Immature Gran % (Auto) Neut % (Auto) Lymph % (Auto) [place] % (Auto) Eos % (Auto) Baso % (Auto) Lymph # (Auto) [place] # (Auto) Eos # (Auto) Baso # (Auto) Abs Immat Gran (auto) Absolute Neuts (auto) Absolute Nucleated RBC Nucleated RBC % (auto) ESR PT INR APTT Anion Gap 11 L Estim Creat Clear Calc 105.2 Estimated GFR > 60 POC Glucose 136 H Random Glucose 134 H D Lactic Acid Calcium 9.1 Total Bilirubin AST ALT Alkaline Phosphatase C-Reactive Protein Total Protein Albumin Lipase Influenza Type A (PCR) Influenza Type B (PCR) RSV RNA Qual (PCR) SARS-CoV-2 RNA (RT-PCR) Assessment and Plan (1) Cellulitis of foot, right: Status: Acute (2) Calculus of distal right ureter: Status: Acute (3) Acute pain of right foot: Status: Acute Assessment and Plan: 56/m with diabetes here with post ampuation of right big toe site cellulitis 1. Righ big toe ampuated site Cellulitis -IV Vanco and Zosyn-D2 -ID is recommending 6 weeks of IV Abx -Picc line when cultures negative -consult vascular surgery -Dilaudid for pain 2. left heel pain due to ulcer ,neuropathic pain, possible peripheral vascular disease, dilaudid for pain, dut to non-healing status of this wound if amputated site fails he will likely be better 3. CAD: continue antipletlets , metoprolol,and atorvastatin 4. HTN- continue metoprolol, BP stable 5. DM2-? continue Lantus and humalog Lovenox for DVT proph Quality Stroke Does the patient have a stroke diagnosis?: No VTE Prior VTE?: No VTE Risk Level:: Medical - moderate - high VTE Device Contraindication: Treatment Not Indicated VTE Drug Contraindication: N/A - Med Ordered
[2021-08-19 11:11] LABS: Glucose, Whole Blood 171 mg/dL (60-115)
--- NOTE | 2021-08-19 11:39 | PM.CNGS ---
History of Present Illness Consult details Consult date: 08/19/21 Narrative: 56-year-old uncontrolled diabetic well-known to me. He has been status post right great toe amp and left heel debridement. This was performed by me. He had actually been admitted for cellulitis was treated with p.o. antibiotics and subsequently discharged. Within 24 hours it had a worsen upon discharge he Marah presents and is now on IV antibiotics. Since his admission yesterday he states he feels significantly better and pain has decreased. Review of Systems Review of Systems: Yes all other systems are reviewed and are negative Constitutional: Constitutional: Reports no additional constitutional complaints ENT: Reports Normal hearing present Cardiovascular: Cardiovascular: Denies chest pain, Denies chest pain at rest, Denies chest pain with activity and Denies pedal edema Respiratory: Respiratory: Denies cough Gastrointestinal: Gastrointestinal: Denies abdominal pain Musculoskeletal: Musculoskeletal: Denies abnormal gait, Denies muscle cramps and Denies radiating pain into limb Integumentary/Breasts: Skin/Breast: Denies skin ulcer and Denies wounds Neurologic: Reports Normal hearing present and Denies abnormal gait Psychiatric: Psychiatric: Reports no additional psychiatric complaints PMFSH Past Medical History Medical History Alcohol abuse Arthritis CAD (coronary artery disease) Chronic pancreatitis Chronic 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 Diabetes mellitus with hyperglycemia, with long-term current use of insulin Essential hypertension Failure of outpatient treatment Hyperlipidemia Increased BMI Intractable left heel pain Kidney calculus Neuropathy Type 2 diabetes mellitus with diabetic polyneuropathy Type 2 diabetes mellitus with hyperglycemia Family History Family History Mother [place] (myocardial infarction), Onset Age: 64 Diabetes mellitus HTN (hypertension) Maternal Grandmother Diabetes mellitus Surgical History Surgical History Hx of heart artery stent Hx of lithotripsy S/P debridement Status post laparoscopic cholecystectomy Social History Social History Household Members: Spouse Household Members Other:: and daughter Housing: Apartment Do you presently have visiting nurse or other home services: Yes (vna) Alcohol intake: current Alcohol intake frequency: does not drink Patient Tobacco Use Status: Former Tobacco user Quit Date: 3 weeks ago Tobacco use type: Cigarette Cigarette Packs Per Day: 1 Cigarettes Per Day: 20.0 Years Smoked: 28 Second Hand Smoke Exposure: Yes Use of substances other than those prescribed or required for medical reasons: No Substance Use Type: Marijuana Currently Displaying Signs/Symptoms of Drug Intoxication Withdrawal: No Have you been hit, kicked, punched, or otherwise hurt by someone within the past year? If so, by whom?: No Do you feel safe in your current relationship?: No Is there a partner from a previous relationship who is making you feel unsafe now?: No Are you made to feel afraid or neglected: No Advance Directives: No Advance Directives Information Provided: Yes Advance Directives Date on File: 04/17/21 Do you have thoughts of harming others: None Do you have a plan to hurt others: No Plan Recently lost weight without trying: No Nutrition Risks: No Nutritional Risk Poor oral hygiene: No service: No Current occupational status: unemployed Meds Allergies Allergy/AdvReac Type Severity Reaction Status Date / Time No Known Allergies Allergy Verified 07/29/21 13:22 [No Known Allergies*] Active Medications: Current Medications Acetaminophen (Acetaminophen 325 Mg Tablet) 650 mg PO Q6H PRN PRN Reason: Pain, Mild (Pain Scale 1-3) Last Admin: 08/19/21 10:26 Dose: 650 mg Documented by: Aspirin (Aspirin 81 Mg Tab.Chew) 81 mg PO DAILY [facility] Last Admin: 08/19/21 07:18 Dose: 81 mg Documented by: Atorvastatin Calcium (Atorvastatin Calcium 20 Mg Tablet) 20 mg PO BEDTIME [facility] Last Admin: 08/18/21 19:38 Dose: 20 mg Documented by: Clopidogrel Bisulfate (Clopidogrel Bisulfate 75 Mg Tablet) 75 mg PO DAILY [facility] Last Admin: 08/19/21 07:18 Dose: 75 mg Documented by: Enoxaparin Sodium (Enoxaparin Sodium 40 Mg/0.4 Ml Syringe) 40 mg SUBCUT Q24H [facility] Last Admin: 08/18/21 18:03 Dose: 40 mg Documented by: Gabapentin (Gabapentin 600 Mg Tablet) 600 mg PO TID [facility] Last Admin: 08/19/21 07:18 Dose: 600 mg Documented by: Hydromorphone HCl (Hydromorphone Hcl 0.5 Mg/0.5 Ml Syringe) 0.5 mg IVPUSH Q4H PRN; Protocol PRN Reason: Pain, Severe (Pain Scale 7-10) Last Admin: 08/19/21 07:16 Dose: 0.5 mg Documented by: Piperacillin Sod/Tazobactam (Sod 3.375 gm/ Sodium Chloride) 50 mls @ 100 mls/hr IV Q6H [facility] Last Infusion: 08/19/21 06:08 Dose: Infused Documented by: Vancomycin HCl 1,500 mg/ (Sodium Chloride) 500 mls @ 333.333 mls/hr IV Q12H [facility] Last Infusion: 08/19/21 01:39 Dose: Infused Documented by: Insulin Glargine (Insulin Glargine,Hum.Rec.Anlog 100 Unit/Ml 10 Ml Vial) 30 unit SUBCUT BEDTIME [facility] Last Admin: 08/18/21 20:57 Dose: 30 unit Documented by: Insulin Human Lispro (Insulin Lispro 100 Unit/Ml 3 Ml Vial) 10 unit SUBCUT BIDAC [facility] Last Admin: 08/19/21 07:23 Dose: 10 unit Documented by: Melatonin (Melatonin 3 Mg Tablet) 6 mg PO BEDTIME PRN PRN Reason: Insomnia Last Admin: 08/18/21 20:57 Dose: 6 mg Documented by: Metoprolol Succinate (Metoprolol Succinate Er 50 Mg Tab.Er.24h) 50 mg PO DAILY [facility]; Protocol Last Admin: 08/19/21 07:18 Dose: 50 mg Documented by: Oxycodone HCl (Oxycodone Hcl Immed Release 5 Mg Tablet) 5 mg PO Q6H PRN PRN Reason: Pain, Severe (Pain Scale 7-10) Last Admin: 08/19/21 10:27 Dose: 5 mg Documented by: Pharmacy Consult (Consult Rx Vancomycin Dosing) 1 each MISCELLANE DAILY PRN PRN Reason: Consult order Pharmacy Consult (Consult Rx Perform Med Rec) 1 each MISCELLANE ONCE PRN PRN Reason: Consult order Pharmacy Consult (Consult Rx Vancomycin Dosing) 1 each MISCELLANE DAILY PRN PRN Reason: Consult order Sodium Chloride (0.9 % Sodium Chloride Flush 3 Ml Syringe) 3 ml IVFLUSH QSHIFT [facility] Last Admin: 08/19/21 07:18 Dose: 3 ml Documented by: Home Medications Medication Instructions Recorded Confirmed Last Taken Type atorvastatin 20 mg tablet 1 tab PO BEDTIME 03/24/21 08/18/21 08/16/21 History insulin glargine 100 unit/mL (3 30 unit SUBCUT BEDTIME ml 05/06/21 08/18/21 08/16/21 History mL) subcutaneous pen (Lantus Solostar U-100 Insulin) empagliflozin 25 mg tablet 1 tab PO DAILY 08/14/21 08/18/21 08/17/21 History (Jardiance) Physical Exam Vital Signs: Vital Signs: Last Vital Signs Temp 98.5 F 08/19/21 11:18 Pulse 71 08/19/21 11:18 Resp 20 08/19/21 11:18 BP 173/71 H 08/19/21 11:18 Pulse Ox 92 08/19/21 11:18 BMI result Body Mass Index 29.9 Const: General: cooperative, healthy appearing and no acute distress Orientation/consciousness: oriented to person, oriented to place and oriented to time HENMT: Head: Yes normal to inspection Neck: Neck: Yes normal visual inspection Carotids: no bruits Chest: Chest palpation & inspection: normal inspection of the chest Resp: Effort & Inspection: normal respiratory effort and able to speak in complete sentences Auscultation: clear to auscultation bilaterally Cardio: Rate: regular rate Rhythm: regular rhythm Heart sounds: S1 normal heart sound present and S2 normal heart sound present Bruits: no carotid bruits Peripheral pulses: Peripheral pulses 2+ throughout GI: Inspection: Yes normal to inspection Skin: General skin exam: no rashes or lesions noted Wounds: amputation site (Significant cellulitis) Hair: normal Neuro: General: oriented to person, oriented to place, oriented to time and CN's II-XI intact bilaterally Cranial nerves: Yes CN's II-XII intact bilaterally and Yes Normal hearing present Cognition (Neuro): normal cognition Motor exam (neuro): 5/5 motor strength present throughout Extrem: Other: venous exam: No significant superficial varicosities or spider telangiectasias, minimal edema General: Yes normal to inspection, Yes full ROM and Yes no clubbing, cyanosis or edema Psych: Appearance: grossly normal and well kempt Mental Status: mental status grossly normal Speech and movement: Normal speech and movement present Affect: normal affect Results Labs Result diagrams: 08/18/21 11:07 08/19/21 07:54 Labs: Abnormal lab results 08/18/21 08/18/21 08/18/21 Range/Units 11:06 17:51 20:50 ESR 77 H (0-15) MM/HR Anion Gap (12-20) POC Glucose 127 H 205 H (60-115) mg/dL Random Glucose (60-115) mg/dL 08/19/21 08/19/21 08/19/21 Range/Units 03:56 07:23 07:54 ESR (0-15) MM/HR Anion Gap 11 L (12-20) POC Glucose 144 H 136 H (60-115) mg/dL Random Glucose 134 H D (60-115) mg/dL 08/19/21 Range/Units 11:07 ESR (0-15) MM/HR Anion Gap (12-20) POC Glucose 171 H (60-115) mg/dL Random Glucose (60-115) mg/dL [facility] 08/19/21 07:54 Sodium 135 Potassium 3.9 Chloride 101 Carbon Dioxide 27 BUN 11 Creatinine 0.78 Calcium 9.1 All other labs normal. Assessment and Plan (1) Cellulitis of foot, right: Status: Acute In short patient has cellulitis of the amputation site. Concern is that there may be underlying infection penetrating to bone. I do think that he may be better served with long-term IV antibiotics. Would recommend Infectious Disease consult. Should this not work he is at risk for further amputation. This was discussed with him. Thank you for allowing us to assist in his care. Procedures Date of Service Date of Service: 08/19/21
[2021-08-19] MEDS: vancomycin HCL 1,500 MG in 0.9 % Sodium Chloride 500 ML 333.33 MG IV (12:20)
--- NOTE | 2021-08-19 14:57 | MHC.CM.PN ---
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
[2021-08-19 16:13] LABS: Glucose, Whole Blood 249 mg/dL (60-115)
[2021-08-19] MEDS: Enoxaparin Sodium 40 MG/0.4 ML SYRINGE SUBCUT (18:07)
[2021-08-19] MEDS: Atorvastatin Calcium 20 MG TABLET PO (19:35)
[2021-08-19] MEDS: Insulin Glargine,Hum.rec.anlog 100 UNIT/ML 10 ML VIAL 30 UNIT SUBCUT (20:30)
[2021-08-19] MEDS: Melatonin 3 MG TABLET 6 MG PO (20:30)
[2021-08-19 21:17] LABS: Glucose, Whole Blood 210 mg/dL (60-115)
--- NOTE | 2021-08-19 22:31 | W.PM.IDCN ---
History of Present Illness Data of Consult Service Date: 08/18/21 Requesting physician: Talon Mejia Primary Care Provider: [facility] JOSEPHINE Reason for consult: right foot infection He presents with acute right foot redness and swelling at right toe amputation site. He has no fever or chills He has no injury He had amputation right great toe on 08/09 He was hospitalized 08/14-08/17 due to toe amputation site cellultis and left heel discomfort as well Review of Systems Review of Systems: Yes all other systems are reviewed and are negative [facility] Past Medical History Medical History Alcohol abuse Arthritis CAD (coronary artery disease) Chronic pancreatitis Chronic 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 Diabetes mellitus with hyperglycemia, with long-term current use of insulin Essential hypertension Failure of outpatient treatment Hyperlipidemia Increased BMI Intractable left heel pain Kidney calculus Neuropathy Type 2 diabetes mellitus with diabetic polyneuropathy Type 2 diabetes mellitus with hyperglycemia Family History Family History Mother [place] (myocardial infarction), Onset Age: 64 Diabetes mellitus HTN (hypertension) Maternal Grandmother Diabetes mellitus Family history: reviewed and not pertinent Surgical History Surgical History Hx of heart artery stent Hx of lithotripsy S/P debridement Status post laparoscopic cholecystectomy Social History Social History Household Members: Spouse Household Members Other:: and daughter Housing: Apartment Do you presently have visiting nurse or other home services: Yes (vna) Alcohol intake: current Alcohol intake frequency: does not drink Patient Tobacco Use Status: Former Tobacco user Quit Date: 3 weeks ago Tobacco use type: Cigarette Cigarette Packs Per Day: 1 Cigarettes Per Day: 20.0 Years Smoked: 28 Second Hand Smoke Exposure: Yes Substance Use Type: Marijuana Advance Directives Date on File: 04/17/21 service: No Current occupational status: unemployed Meds Allergies Allergy/AdvReac Type Severity Reaction Status Date / Time No Known Allergies Allergy Verified 07/29/21 13:22 [No Known Allergies*] Active Medications: Current Medications Acetaminophen (Acetaminophen 325 Mg Tablet) 650 mg PO Q6H PRN PRN Reason: Pain, Mild (Pain Scale 1-3) Last Admin: 08/19/21 18:07 Dose: 650 mg Documented by: Aspirin (Aspirin 81 Mg Tab.Chew) 81 mg PO DAILY [facility] Last Admin: 08/19/21 07:18 Dose: 81 mg Documented by: Atorvastatin Calcium (Atorvastatin Calcium 20 Mg Tablet) 20 mg PO BEDTIME [facility] Last Admin: 08/19/21 19:35 Dose: 20 mg Documented by: Clopidogrel Bisulfate (Clopidogrel Bisulfate 75 Mg Tablet) 75 mg PO DAILY [facility] Last Admin: 08/19/21 07:18 Dose: 75 mg Documented by: Enoxaparin Sodium (Enoxaparin Sodium 40 Mg/0.4 Ml Syringe) 40 mg SUBCUT Q24H [facility] Last Admin: 08/19/21 18:07 Dose: 40 mg Documented by: Gabapentin (Gabapentin 600 Mg Tablet) 600 mg PO TID [facility] Last Admin: 08/19/21 19:35 Dose: 600 mg Documented by: Hydromorphone HCl (Hydromorphone Hcl 0.5 Mg/0.5 Ml Syringe) 0.5 mg IVPUSH Q4H PRN; Protocol PRN Reason: Pain, Severe (Pain Scale 7-10) Last Admin: 08/19/21 19:34 Dose: 0.5 mg Documented by: Piperacillin Sod/Tazobactam (Sod 3.375 gm/ Sodium Chloride) 50 mls @ 100 mls/hr IV Q6H [facility] Last Infusion: 08/19/21 18:41 Dose: Infused Documented by: Vancomycin HCl 1,500 mg/ (Sodium Chloride) 500 mls @ 333.333 mls/hr IV Q12H [facility] Last Infusion: 08/19/21 13:54 Dose: Infused Documented by: Insulin Glargine (Insulin Glargine,Hum.Rec.Anlog 100 Unit/Ml 10 Ml Vial) 30 unit SUBCUT BEDTIME [facility] Last Admin: 08/19/21 20:30 Dose: 30 unit Documented by: Insulin Human Lispro (Insulin Lispro 100 Unit/Ml 3 Ml Vial) 10 unit SUBCUT BIDAC [facility] Last Admin: 08/19/21 16:27 Dose: 10 unit Documented by: Melatonin (Melatonin 3 Mg Tablet) 6 mg PO BEDTIME PRN PRN Reason: Insomnia Last Admin: 08/19/21 20:30 Dose: 6 mg Documented by: Metoprolol Succinate (Metoprolol Succinate Er 50 Mg Tab.Er.24h) 50 mg PO DAILY [facility]; Protocol Last Admin: 08/19/21 07:18 Dose: 50 mg Documented by: Oxycodone HCl (Oxycodone Hcl Immed Release 5 Mg Tablet) 5 mg PO Q6H PRN PRN Reason: Pain, Severe (Pain Scale 7-10) Last Admin: 08/19/21 18:07 Dose: 5 mg Documented by: Pharmacy Consult (Consult Rx Vancomycin Dosing) 1 each MISCELLANE DAILY PRN PRN Reason: Consult order Pharmacy Consult (Consult Rx Perform Med Rec) 1 each MISCELLANE ONCE PRN PRN Reason: Consult order Pharmacy Consult (Consult Rx Vancomycin Dosing) 1 each MISCELLANE DAILY PRN PRN Reason: Consult order Sodium Chloride (0.9 % Sodium Chloride Flush 3 Ml Syringe) [facility] Admin: 08/19/21 19:35 Dose: 3 ml Documented by: Home Medications Medication Instructions Recorded Confirmed Last Taken Type atorvastatin 20 mg tablet 1 tab PO BEDTIME 03/24/21 08/18/21 08/16/21 History insulin glargine 100 unit/mL (3 30 unit SUBCUT BEDTIME ml 05/06/21 08/18/21 08/16/21 History mL) subcutaneous pen (Lantus Solostar U-100 Insulin) empagliflozin 25 mg tablet 1 tab PO DAILY 08/14/21 08/18/21 08/17/21 History (Jardiance) Physical Exam Vital Signs: Vital Signs: Last Vital Signs Temp 98.5 F 08/19/21 20:00 Pulse 75 08/19/21 20:00 Resp 17 08/19/21 20:00 BP 155/73 H 08/19/21 20:00 Pulse Ox 95 08/19/21 20:00 BMI result Body Mass Index 29.9 Const: General: cooperative HENMT: Head: Yes normal to inspection Resp: Effort & Inspection: normal respiratory effort Cardio: Rate: regular rate Rhythm: regular rhythm GI: Palpation (GI): Soft to palpation and nontender Skin: General skin exam: no rashes or lesions noted Extrem: Other: right reddened amputation site Results Labs CBC & Chem 7: 08/18/21 11:07 08/19/21 07:54 Labs: BMP 08/19/21 07:54 Sodium 135 Potassium 3.9 Chloride 101 Carbon Dioxide 27 BUN 11 Creatinine 0.78 Calcium 9.1 Microbiology Microbiology Results: Microbiology 08/18/21 11:06 Blood - Venous Blood Culture - Preliminary No growth after 24 hours. 08/18/21 11:06 Blood - Venous Blood Culture - Preliminary No growth after 24 hours. Assessment and Plan (1) Cellulitis of foot, right: Status: Acute He has continued redness foot I am concerned about infection deep in foot (2) Acute pain of right foot: Status: Acute See Vascular IV Ertapenem for six weeks
[2021-08-19 22:41] LABS: Vancomycin Trough 11.4 mcg/mL (10.0-20.0)
[2021-08-20] MEDS: HYDROmorphone HCl 0.5 MG/0.5 ML SYRINGE IVPUSH ×4 (00:05→10:27)
[2021-08-20] MEDS: vancomycin HCL 1,500 MG in 0.9 % Sodium Chloride 500 ML 333.33 MG IV ×3 (00:07→23:39)
[2021-08-20] MEDS: Acetaminophen 325 MG TABLET 650 MG PO ×3 (02:26→20:52)
[2021-08-20] MEDS: oxyCODONE HCl Immed Release 5 MG TABLET PO ×3 (02:26→20:52)
[2021-08-20 03:58] VITALS: BP 148/69; PULSE 75; RESP 17; TEMP 36.8; O2SAT 96
[2021-08-20] MEDS: Piperacillin Sodium/Tazobactam 3.375 GM in 0.9 % Sodium Chloride 50 ML IV ×4 (05:32→23:05)
--- NOTE | 2021-08-20 06:14 | PC.NURSE ---
at 0605 pt c/o 10/10 pain in right great toe amputation site, pt crying in pain and asking for dilaudid, pt not due for dilaudid until 0850. [employer] message sent to Dr. Benjamin and Dr. hua to give dilaudid early. Dilaudid given at 0612.
[2021-08-20 06:17] LABS: Anion Gap 13 (12-20); Blood Urea Nitrogen 12 mg/dL (9-16); Calcium 9.1 mg/dL (8.4-10.2); Carbon Dioxide 25 mmol/L (22-29); Chloride 102 mmol/L (96-108); Creatinine Clr Calc Pharmacy 101.3; Estimated Glomerular Filt Rate > 60; Glucose Random 137 mg/dL (60-115); Potassium 4.2 mmol/L (3.3-5.1); Sodium 136 mmol/L (135-145)
[2021-08-20 07:43] VITALS: BP 164/75; PULSE 69; RESP 19; TEMP 36.7; O2SAT 97
[2021-08-20 08:30] LABS: Glucose, Whole Blood 111 mg/dL (60-115)
[2021-08-20] MEDS: Aspirin 81 MG TAB.CHEW PO (08:49)
[2021-08-20] MEDS: Gabapentin 600 MG TABLET PO ×3 (08:50→20:48)
[2021-08-20] MEDS: Metoprolol Succinate ER 50 MG TAB.ER.24H PO (08:50)
[2021-08-20] MEDS: Clopidogrel Bisulfate 75 MG TABLET PO (08:50)
[2021-08-20] MEDS: Insulin Lispro 100 UNIT/ML 3 ML VIAL 10 UNIT SUBCUT ×2 (08:50→17:29)
[2021-08-20] MEDS: 0.9 % Sodium Chloride Flush 3 ML SYRINGE IVFLUSH ×3 (08:51→23:05)
--- NOTE | 2021-08-20 10:18 | P.PNIM_ITS ---
Subjective Subjective Date of Service: 08/20/21 Interval History: f/u on cellulitis of amputated site, foot looks the gabby, still has lots of pain in the foot Review of Systems no fever pain in the foot Physical Exam Verdana 4l Vital Signs: Verdana 4d Verdana 4d Vital Signs: Verdana 4d Verdana 4Bd Last Vital Signs Verdana 4d Vulcanizer Operator New 4d Vulcanizer Operator New 4d Temp 98.1 F 08/20/21 07:43 Vulcanizer Operator New 4d Pulse 69 08/20/21 07:43 Vulcanizer Operator NewNew 4d Resp 19 08/20/21 07:43 BP 164/75 H 08/20/21 07:43 Pulse Ox 97 08/20/21 07:43 BMI result Body Mass Index 29.9 Const: Other: General: AO X 3, no acute distress Resp: CTA bilateral CVS: S1,S2,RRR GI: +BS, NT, no distention Skin: Neuro: motor grossly intact Psych: appropriate affect Objective Data Active Medications Acetaminophen (Acetaminophen 325 Mg Tablet) 650 mg PO Q6H PRN PRN Reason: Pain, Mild (Pain Scale 1-3) Last Admin: 08/20/21 09:46 Dose: 650 mg Documented by: HAYDEE Aspirin (Aspirin 81 Mg Tab.Chew) 81 mg PO DAILY [facility] Last Admin: 08/20/21 08:49 Dose: 81 mg Documented by: HAYDEE Atorvastatin Calcium (Atorvastatin Calcium 20 Mg Tablet) 20 mg PO BEDTIME [facility] Last Admin: 08/19/21 19:35 Dose: 20 mg Documented by: JAMEQC Clopidogrel Bisulfate (Clopidogrel Bisulfate 75 Mg Tablet) 75 mg PO DAILY [facility] Last Admin: 08/20/21 08:50 Dose: 75 mg Documented by: HAYDEE Enoxaparin Sodium (Enoxaparin Sodium 40 Mg/0.4 Ml Syringe) 40 mg SUBCUT Q24H [facility] Last Admin: 08/19/21 18:07 Dose: 40 mg Documented by: HAYDEE Gabapentin (Gabapentin 600 Mg Tablet) 600 mg PO TID [facility] Last Admin: 08/20/21 08:50 Dose: 600 mg Documented by: DABCraig Hydromorphone HCl (Hydromorphone Hcl 0.5 Mg/0.5 Ml Syringe) 0.5 mg IVPUSH Q4H PRN; Protocol PRN Reason: Pain, Severe (Pain Scale 7-10) Last Admin: 08/20/21 06:12 Dose: 0.5 mg Documented by: LUZ ELENA Comments: Ok'd by Dr. Benjamin to give early. Piperacillin Sod/Tazobactam (Sod 3.375 gm/ Sodium Chloride) 50 mls @ 100 mls/hr IV Q6H [facility] Last Infusion: 08/20/21 06:18 Dose: 0 mls/hr Documented by: LUZ ELENA Vancomycin HCl 1,500 mg/ (Sodium Chloride) 500 mls @ 333.333 mls/hr IV Q12H [facility] Last Infusion: 08/20/21 02:23 Dose: 0 mls/hr Documented by: LUZ ELENA Insulin Glargine (Insulin Glargine,Hum.Rec.Anlog 100 Unit/Ml 10 Ml Vial) 30 unit SUBCUT BEDTIME [facility] Last Admin: 08/19/21 20:30 Dose: 30 unit Documented by: LUZ ELENA Insulin Human Lispro (Insulin Lispro 100 Unit/Ml 3 Ml Vial) 10 unit SUBCUT BIDAC [facility] Last Admin: 08/20/21 08:50 Dose: 10 unit Documented by: HAYDEE Melatonin (Melatonin 3 Mg Tablet) 6 mg PO BEDTIME PRN PRN Reason: Insomnia Last Admin: 08/19/21 20:30 Dose: 6 mg Documented by: LUZ ELENA Metoprolol Succinate (Metoprolol Succinate Er 50 Mg Tab.Er.24h) 50 mg PO DAILY [facility]; Protocol Last Admin: 08/20/21 08:50 Dose: 50 mg Documented by: HAYDEE Oxycodone HCl (Oxycodone Hcl Immed Release 5 Mg Tablet) 5 mg PO Q6H PRN PRN Reason: Pain, Severe (Pain Scale 7-10) Last Admin: 08/20/21 09:46 Dose: 5 mg Documented by: HAYDEE Pharmacy Consult (Consult Rx Vancomycin Dosing) 1 each MISCELLANE DAILY PRN PRN Reason: Consult order Pharmacy Consult (Consult Rx Perform Med Rec) 1 each MISCELLANE ONCE PRN PRN Reason: Consult order Pharmacy Consult (Consult Rx Vancomycin Dosing) 1 each MISCELLANE DAILY PRN PRN Reason: Consult order Sodium Chloride (0.9 % Sodium Chloride Flush 3 Ml Syringe) 3 ml IVFLUSH QSHIFT [facility] Last Admin: 08/20/21 08:51 Dose: 3 ml Documented by: HAYDEE Labs CBC & Chem 7: 08/18/21 11:07 08/20/21 05:24 Labs: Laboratory Results - last 24 hr 08/19/21 08/19/21 08/19/21 11:07 16:04 20:27 Anion Gap Estim Creat Clear Calc Estimated GFR POC Glucose 171 H 249 H 210 H Random Glucose Calcium Vancomycin Trough 08/19/21 08/20/21 08/20/21 22:04 05:24 07:46 Anion Gap 13 Estim Creat Clear Calc 101.3 Estimated GFR > 60 POC Glucose 111 Random Glucose 137 H Calcium 9.1 Vancomycin Trough 11.4 Microbiology Microbiology Results: Microbiology 08/18/21 11:06 Blood Culture - Preliminary Blood - Venous No growth after 24 hours. 08/18/21 11:06 Blood Culture - Preliminary Blood - Venous No growth after 24 hours. Assessment and Plan Assessment and Plan: 56/m with diabetes here with post ampuation of right big toe site cellulitis 1. Righ big toe ampuated site Cellulitis -IV Vanco and Zosyn-D2 -ID is recommending 6 weeks of IV Abx (Ertapenem) at discharge -Picc line when cultures negative, probably Monday -consult vascular surgery - adjust Dilaudid for pain 2. left heel pain due to ulcer ,neuropathic pain, possible peripheral vascular disease, dilaudid for pain, dut to non-healing status of this wound if amputated site fails he will likely be better 3. CAD: continue antipletlets , metoprolol,and atorvastatin 4. HTN- continue metoprolol, BP stable 5. DM2-? continue Lantus and humalog Lovenox for DVT proph Quality Stroke Does the patient have a stroke diagnosis?: No VTE Prior VTE?: No VTE Risk Level:: Medical - moderate - high VTE Device Contraindication: Treatment Not Indicated VTE Drug Contraindication: N/A - Med Ordered
[2021-08-20 11:28] VITALS: BP 167/81; PULSE 78; RESP 19; TEMP 36.7; O2SAT 97
[2021-08-20] MEDS: HYDROmorphone HCl 0.5 MG/0.5 ML SYRINGE 1 MG IVPUSH ×3 (11:40→23:12)
[2021-08-20 11:55] LABS: Glucose, Whole Blood 113 mg/dL (60-115)
[2021-08-20 15:41] VITALS: BP 164/74; PULSE 76; RESP 17; TEMP 36.6; O2SAT 99
[2021-08-20 16:45] LABS: Glucose, Whole Blood 188 mg/dL (60-115)
[2021-08-20] MEDS: Enoxaparin Sodium 40 MG/0.4 ML SYRINGE SUBCUT (17:30)
[2021-08-20 19:36] VITALS: BP 167/68; PULSE 80; RESP 16; TEMP 37.2; O2SAT 95
[2021-08-20 20:32] LABS: Glucose, Whole Blood 148 mg/dL (60-115)
[2021-08-20] MEDS: Atorvastatin Calcium 20 MG TABLET PO (20:48)
[2021-08-20] MEDS: Melatonin 3 MG TABLET 6 MG PO (20:48)
[2021-08-20] MEDS: Insulin Glargine,Hum.rec.anlog 100 UNIT/ML 10 ML VIAL 30 UNIT SUBCUT (20:48)
[2021-08-21] VITALS (8 sets, daily range): BP systolic 135–184; BP diastolic 71–95; PULSE 67–78; RESP 16–18; TEMP 36.2–36.9; O2SAT 95–98
[2021-08-21] MEDS: HYDROmorphone HCl 0.5 MG/0.5 ML SYRINGE 1 MG IVPUSH ×6 (03:19→20:27)
[2021-08-21] MEDS: Piperacillin Sodium/Tazobactam 3.375 GM in 0.9 % Sodium Chloride 50 ML IV ×3 (05:23→17:58)
[2021-08-21] MEDS: Acetaminophen 325 MG TABLET 650 MG PO (05:29)
[2021-08-21] MEDS: oxyCODONE HCl Immed Release 5 MG TABLET PO (05:30)
--- NOTE | 2021-08-21 06:37 | PC.NURSE ---
pt c/o 10 pain in right great toe amputation site at 0615 and asking for IV dilaudid, pt not due for dilaudid until 718. [employer] message sent to Dr. Benjamin and he said ok to give dilaudid early. IV dilaudid given at 0629.
[2021-08-21 07:15] LABS: Hematocrit 38.9 % (42.0-52.0); Hemoglobin 12.3 g/dl (14.0-18.0); Mean Corpuscular HGB Conc 31.6 g/dl (31.0-36.0); Mean Corpuscular Hemoglobin 25.6 pg (27.0-33.0); Mean Platelet Volume 10.3 fL (9.4-12.4); Platelet Count 283 X10*3/uL (160-400); Red Cell Distribution Width 14.6 % (11.0-16.0); White Blood Count 11.7 X10*3/uL (4.8-10.8)
[2021-08-21 07:50] LABS: Glucose, Whole Blood 122 mg/dL (60-115)
[2021-08-21] MEDS: 0.9 % Sodium Chloride Flush 3 ML SYRINGE IVFLUSH ×3 (08:08→20:26)
[2021-08-21] MEDS: Gabapentin 600 MG TABLET PO ×3 (08:08→20:26)
[2021-08-21] MEDS: Clopidogrel Bisulfate 75 MG TABLET PO (08:08)
[2021-08-21] MEDS: Insulin Lispro 100 UNIT/ML 3 ML VIAL 10 UNIT SUBCUT ×2 (08:08→16:20)
[2021-08-21] MEDS: Metoprolol Succinate ER 50 MG TAB.ER.24H PO (08:08)
[2021-08-21] MEDS: Aspirin 81 MG TAB.CHEW PO (08:08)
--- NOTE | 2021-08-21 08:27 | P.PNIM_ITS ---
Subjective Subjective Date of Service: 08/21/21 Review of Systems Follow up cellulitis of right foot amputation site still with significant pain Physical Exam Verdana 4l Vital Signs: Verdana 4d Verdana 4d Vital Signs: Verdana 4d Verdana 4Bd Last Vital Signs Verdana 4d Offset Press Operator Apprentice New 4d Devante New 4d Temp 97.5 F 08/21/21 07:38 Offset Press Operator Apprentice New 4d Pulse 75 08/21/21 07:38 Offset Press Operator Apprentice NewNew 4d Resp 18 08/21/21 07:38 BP 149/71 H 08/21/21 07:38 Pulse Ox 98 08/21/21 07:38 BMI result Body Mass Index 29.9 Appearing in no acute distress lung sounds are clear to auscultation heart regular rate rhythm, clear S1, S2 positive bowel sounds, abdomen is soft, nontender neuro patient is alert x3, no focal deficits Objective Data Active Medications Acetaminophen (Acetaminophen 325 Mg Tablet) 650 mg PO Q6H PRN PRN Reason: Pain, Mild (Pain Scale 1-3) Last Admin: 08/21/21 05:29 Dose: 650 mg Documented by: LUZ ELENA Aspirin (Aspirin 81 Mg Tab.Chew) 81 mg PO DAILY [facility] Last Admin: 08/21/21 08:08 Dose: 81 mg Documented by: TARIQ Atorvastatin Calcium (Atorvastatin Calcium 20 Mg Tablet) 20 mg PO BEDTIME [facility] Last Admin: 08/20/21 20:48 Dose: 20 mg Documented by: LUZ ELENA Clopidogrel Bisulfate (Clopidogrel Bisulfate 75 Mg Tablet) 75 mg PO DAILY [facility] Last Admin: 08/21/21 08:08 Dose: 75 mg Documented by: TARIQ Enoxaparin Sodium (Enoxaparin Sodium 40 Mg/0.4 Ml Syringe) 40 mg SUBCUT Q24H [facility] Last Admin: 08/20/21 17:30 Dose: 40 mg Documented by: LUZ ELENA Gabapentin (Gabapentin 600 Mg Tablet) 600 mg PO TID [facility] Last Admin: 08/21/21 08:08 Dose: 600 mg Documented by: TARIQ Hydromorphone HCl (Hydromorphone Hcl 0.5 Mg/0.5 Ml Syringe) 1 mg IVPUSH Q4H PRN; Protocol PRN Reason: Pain, Severe (Pain Scale 7-10) Last Admin: 08/21/21 06:29 Dose: 1 mg Documented by: LUZ ELENA Comments: Ok to give early per Dr. Benjamin Piperacillin Sod/Tazobactam (Sod 3.375 gm/ Sodium Chloride) 50 mls @ 100 mls/hr IV Q6H [facility] Last Infusion: 08/21/21 06:04 Dose: 0 mls/hr Documented by: LUZ ELENA Vancomycin HCl 1,500 mg/ (Sodium Chloride) 500 mls @ 333.333 mls/hr IV Q12H [facility] Last Infusion: 08/21/21 01:40 Dose: 0 mls/hr Documented by: LUZ ELENA Insulin Glargine (Insulin Glargine,Hum.Rec.Anlog 100 Unit/Ml 10 Ml Vial) 30 unit SUBCUT BEDTIME [facility] Last Admin: 08/20/21 20:48 Dose: 30 unit Documented by: LUZ ELENA Insulin Human Lispro (Insulin Lispro 100 Unit/Ml 3 Ml Vial) 10 unit SUBCUT BIDAC [facility] Last Admin: 08/21/21 08:08 Dose: 10 unit Documented by: TARIQ Melatonin (Melatonin 3 Mg Tablet) 6 mg PO BEDTIME PRN PRN Reason: Insomnia Last Admin: 08/20/21 20:48 Dose: 6 mg Documented by: LUZ ELENA Metoprolol Succinate (Metoprolol Succinate Er 50 Mg Tab.Er.24h) 50 mg PO DAILY [facility]; Protocol Last Admin: 08/21/21 08:08 Dose: 50 mg Documented by: TARIQ Oxycodone HCl (Oxycodone Hcl Immed Release 5 Mg Tablet) 10 mg PO Q6H PRN PRN Reason: Pain, Severe (Pain Scale 7-10) Pharmacy Consult (Consult Rx Vancomycin Dosing) 1 each MISCELLANE DAILY PRN PRN Reason: Consult order Pharmacy Consult (Consult Rx Perform Med Rec) 1 each MISCELLANE ONCE PRN PRN Reason: Consult order Pharmacy Consult (Consult Rx Vancomycin Dosing) 1 each MISCELLANE DAILY PRN PRN Reason: Consult order Sodium Chloride (0.9 % Sodium Chloride Flush 3 Ml Syringe) 3 ml IVFLUSH QSHIFT [facility] Last Admin: 08/21/21 08:08 Dose: 3 ml Documented by: TARIQ Labs CBC & Chem 7: 08/21/21 06:16 08/21/21 07:05 Labs: Laboratory Results - last 24 hr 08/20/21 08/20/21 08/20/21 07:46 11:32 16:37 MCV MCH MCHC RDW Plt Count MPV Absolute Nucleated RBC Nucleated RBC % (auto) POC Glucose 111 113 188 H 08/20/21 08/21/21 08/21/21 20:26 06:16 07:37 MCV 81.0 MCH 25.6 L MCHC 31.6 RDW 14.6 Plt Count 283 MPV 10.3 Absolute Nucleated RBC 0.000 Nucleated RBC % (auto) 0.0 POC Glucose 148 H 122 H Microbiology Microbiology Results: Microbiology 08/18/21 11:06 Blood Culture - Preliminary Blood - Venous No growth after 48 hours. 08/18/21 11:06 Blood Culture - Preliminary Blood - Venous No growth after 48 hours. Assessment and Plan (1) Cellulitis of foot, right: Status: Acute (2) Non-healing ulcer of foot: Status: Acute (3) PAD (peripheral artery disease): Status: Acute Assessment and Plan: 56 year old man with diabetes here with post ampuation of right big toe site cellulitis Right big toe amputated site Cellulitis IV Vanco and Zosyn ID is recommending 6 weeks of IV Abx (Ertapenem) at discharge Picc line Monday, cx eg after 48hrs vascular surgery following, agrees with abx for now however patient in significant pain and wound appears to be worsening Will obtain MRI Left heel pain due to ulcer neuropathic pain, possible peripheral vascular disease, dilaudid for pain CAD continue antipletlets , metoprolol,and atorvastatin HTN continue metoprolol, BP stable DM2 continue Lantus and humalog DVT prophylaxis with Lovenox Attending Dr. Mejia Quality Stroke Does the patient have a stroke diagnosis?: No VTE Prior VTE?: No VTE Risk Level:: Medical - moderate - high VTE Device Contraindication: Treatment Not Indicated VTE Drug Contraindication: N/A - Med Ordered
[2021-08-21] MEDS: oxyCODONE HCl Immed Release 5 MG TABLET 10 MG PO ×3 (08:32→22:21)
[2021-08-21 10:03] LABS: Creatinine Clr Calc Pharmacy 105.2; Estimated Glomerular Filt Rate > 60
[2021-08-21 10:48] LABS: Vancomycin Trough 12.8 mcg/mL (10.0-20.0)
[2021-08-21 11:30] LABS: Glucose, Whole Blood 83 mg/dL (60-115)
[2021-08-21] MEDS: vancomycin HCL 1,500 MG in 0.9 % Sodium Chloride 500 ML 333.33 MG IV (13:31)
[2021-08-21 16:44] LABS: Glucose, Whole Blood 200 mg/dL (60-115)
[2021-08-21] MEDS: Enoxaparin Sodium 40 MG/0.4 ML SYRINGE SUBCUT (17:54)
[2021-08-21] MEDS: Melatonin 3 MG TABLET 6 MG PO (20:26)
[2021-08-21] MEDS: Atorvastatin Calcium 20 MG TABLET PO (20:26)
[2021-08-21] MEDS: Insulin Glargine,Hum.rec.anlog 100 UNIT/ML 10 ML VIAL 30 UNIT SUBCUT (20:30)
[2021-08-21 20:35] LABS: Glucose, Whole Blood 97 mg/dL (60-115)
[2021-08-22] VITALS (7 sets, daily range): BP systolic 145–198; BP diastolic 67–92; PULSE 76–83; RESP 17–18; TEMP 36.5–37.2; O2SAT 96–98
[2021-08-22] MEDS: Piperacillin Sodium/Tazobactam 3.375 GM in 0.9 % Sodium Chloride 50 ML IV ×4 (00:01→20:11)
[2021-08-22] MEDS: vancomycin HCL 1,500 MG in 0.9 % Sodium Chloride 500 ML 333.33 MG IV ×2 (00:38→14:50)
[2021-08-22 00:47] LABS: Glucose, Whole Blood 113 mg/dL (60-115)
[2021-08-22] MEDS: Acetaminophen 325 MG TABLET 650 MG PO (03:09)
[2021-08-22] MEDS: oxyCODONE HCl Immed Release 5 MG TABLET 10 MG PO ×4 (03:09→20:52)
[2021-08-22] MEDS: HYDROmorphone HCl 0.5 MG/0.5 ML SYRINGE 1 MG IVPUSH ×2 (04:01→09:42)
[2021-08-22 06:40] LABS: Glucose, Whole Blood 114 mg/dL (60-115)
[2021-08-22] MEDS: Insulin Lispro 100 UNIT/ML 3 ML VIAL 10 UNIT SUBCUT ×2 (06:58→17:45)
[2021-08-22] MEDS: 0.9 % Sodium Chloride Flush 3 ML SYRINGE IVFLUSH ×2 (06:58→18:36)
[2021-08-22 07:04] LABS: Creatinine Clr Calc Pharmacy 105.2; Estimated Glomerular Filt Rate > 60
[2021-08-22] MEDS: Clopidogrel Bisulfate 75 MG TABLET PO (09:46)
[2021-08-22] MEDS: Aspirin 81 MG TAB.CHEW PO (09:46)
[2021-08-22] MEDS: Metoprolol Succinate ER 50 MG TAB.ER.24H PO (09:46)
[2021-08-22] MEDS: Gabapentin 600 MG TABLET PO ×3 (09:46→20:50)
--- NOTE | 2021-08-22 11:26 | P.PNIM_ITS ---
Subjective Subjective Date of Service: 08/22/21 Review of Systems Follow up cellulitis of right foot amputation site still with significant pain, feels better when elevated stated that his foot feels numb Physical Exam Verdana 4l Vital Signs: Verdana 4d Verdana 4d Vital Signs: Verdana 4d Verdana 4Bd Last Vital Signs Verdana 4d Development Trainer New 4d Development Trainer New 4d Temp 98.5 F 08/22/21 07:49 Development Trainer New 4d Pulse 76 08/22/21 09:46 Development Trainer NewNew 4d Resp 18 08/22/21 07:49 BP 151/67 H 08/22/21 09:46 Pulse Ox 96 08/22/21 07:49 BMI result Body Mass Index 29.9 Appearing in no acute distress lung sounds are clear to auscultation heart regular rate rhythm, clear S1, S2 positive bowel sounds, abdomen is soft, nontender neuro patient is alert x3, no focal deficits Objective Data Active Medications Acetaminophen (Acetaminophen 325 Mg Tablet) 650 mg PO Q6H PRN PRN Reason: Pain, Mild (Pain Scale 1-3) Last Admin: 08/22/21 03:09 Dose: 650 mg Documented by: TARIQ Aspirin (Aspirin 81 Mg Tab.Chew) 81 mg PO DAILY [facility] Last Admin: 08/22/21 09:46 Dose: 81 mg Documented by: JUAN CARLOS Atorvastatin Calcium (Atorvastatin Calcium 20 Mg Tablet) 20 mg PO BEDTIME [facility] Last Admin: 08/21/21 20:26 Dose: 20 mg Documented by: GABBY Clopidogrel Bisulfate (Clopidogrel Bisulfate 75 Mg Tablet) 75 mg PO DAILY [facility] Last Admin: 08/22/21 09:46 Dose: 75 mg Documented by: JUAN CARLOS Enoxaparin Sodium (Enoxaparin Sodium 40 Mg/0.4 Ml Syringe) 40 mg SUBCUT Q24H [facility] Last Admin: 08/21/21 17:54 Dose: 40 mg Documented by: MARYCRUZ Gabapentin (Gabapentin 600 Mg Tablet) 600 mg PO TID [facility] Last Admin: 08/22/21 09:46 Dose: 600 mg Documented by: JUAN CARLOS Hydromorphone HCl (Hydromorphone Hcl 0.5 Mg/0.5 Ml Syringe) 1 mg IVPUSH Q3H PRN; Protocol PRN Reason: Pain, Severe (Pain Scale 7-10) Last Admin: 08/22/21 09:42 Dose: 1 mg Documented by: JUAN CARLOS Piperacillin Sod/Tazobactam (Sod 3.375 gm/ Sodium Chloride) 50 mls @ 100 mls/hr IV Q6H [facility] Last Infusion: 08/22/21 06:35 Dose: 0 mls/hr Documented by: GABBY Vancomycin HCl 1,500 mg/ (Sodium Chloride) 500 mls @ 333.333 mls/hr IV Q12H [facility] Last Infusion: 08/22/21 03:44 Dose: 0 mls/hr Documented by: GABBY Insulin Glargine (Insulin Glargine,Hum.Rec.Anlog 100 Unit/Ml 10 Ml Vial) 30 unit SUBCUT BEDTIME [facility] Last Admin: 08/21/21 20:30 Dose: 30 unit Documented by: GABBY Insulin Human Lispro (Insulin Lispro 100 Unit/Ml 3 Ml Vial) 10 unit SUBCUT BIDAC [facility] Last Admin: 08/22/21 06:58 Dose: 10 unit Documented by: TARIQ Melatonin (Melatonin 3 Mg Tablet) 6 mg PO BEDTIME PRN PRN Reason: Insomnia Last Admin: 08/21/21 20:26 Dose: 6 mg Documented by: GABBY Metoprolol Succinate (Metoprolol Succinate Er 50 Mg Tab.Er.24h) 50 mg PO DAILY [facility]; Protocol Last Admin: 08/22/21 09:46 Dose: 50 mg Documented by: JUAN CARLOS Oxycodone HCl (Oxycodone Hcl Immed Release 5 Mg Tablet) 10 mg PO Q4H PRN PRN Reason: Pain, Severe (Pain Scale 7-10) Last Admin: 08/22/21 06:57 Dose: 10 mg Documented by: TARIQ Pharmacy Consult (Consult Rx Vancomycin Dosing) 1 each MISCELLANE DAILY PRN PRN Reason: Consult order Pharmacy Consult (Consult Rx Perform Med Rec) 1 each MISCELLANE ONCE PRN PRN Reason: Consult order Pharmacy Consult (Consult Rx Vancomycin Dosing) 1 each MISCELLANE DAILY PRN PRN Reason: Consult order Sodium Chloride (0.9 % Sodium Chloride Flush 3 Ml Syringe) 3 ml IVFLUSH QSHIFT [facility] Last Admin: 08/22/21 06:58 Dose: 3 ml Documented by: TARIQ Labs CBC & Chem 7: 08/21/21 06:16 08/22/21 06:26 Labs: Laboratory Results - last 24 hr 08/21/21 08/21/21 08/21/21 11:12 15:51 19:22 Estim Creat Clear Calc Estimated GFR POC Glucose 83 200 H 97 08/21/21 08/22/21 08/22/21 23:35 06:26 06:36 Estim Creat Clear Calc 105.2 Estimated GFR > 60 POC Glucose 113 114 Assessment and Plan (1) Cellulitis of foot, right: Status: Acute Assessment and Plan: 56 year old man with diabetes here with post ampuation of right big toe site cellulitis Right big toe amputated site Cellulitis IV Berkleyo and Juan ID is recommending 6 weeks of IV Abx (Ertapenem) at discharge Picc line Monday, cx eg after 48hrs vascular surgery following, agrees with abx for now however patient in significant pain and wound appears to be worsening Unable to perform MRI due to pain, attempted to take patient down twice. Left heel pain due to ulcer neuropathic pain, peripheral vascular disease, dilaudid for pain CAD continue antipletlets , metoprolol,and atorvastatin HTN continue metoprolol, BP stable DM2 continue Lantus and humalog DVT prophylaxis with Lovenox Attending Dr. Mejia Quality Stroke Does the patient have a stroke diagnosis?: No VTE Prior VTE?: No VTE Risk Level:: Medical - moderate - high VTE Device Contraindication: Treatment Not Indicated VTE Drug Contraindication: N/A - Med Ordered
[2021-08-22 12:05] LABS: Glucose, Whole Blood 110 mg/dL (60-115)
[2021-08-22] MEDS: LORazepam 2 MG/ML VIAL 1 MG IVPUSH (12:17)
--- NOTE | 2021-08-22 14:16 | MHC.CM.PN ---
PLAN IS FOR PICC PLACEMENT Monday08/23/21 RADIANCE VNA UPDATED WITH PROGRESS TOWARDS DISCHARGE. REFERRAL TO [facility] IS 6 WEEKS IV ERTAPENEM
--- NOTE | 2021-08-22 14:17 | PC.NURSE ---
antibiotics were delayed he went to MRI but it was not done because the patient states he was in pain.
[2021-08-22 17:00] LABS: Glucose, Whole Blood 203 mg/dL (60-115)
[2021-08-22] MEDS: Enoxaparin Sodium 40 MG/0.4 ML SYRINGE SUBCUT (17:45)
[2021-08-22] MEDS: HYDROmorphone HCl 0.5 MG/0.5 ML SYRINGE 1.5 MG IVPUSH ×2 (18:35→21:39)
--- NOTE | 2021-08-22 19:47 | PC.NURSE ---
PT accidentally pulled his IV out, is a hard stick took a while before having IV access, fell back on his abx
[2021-08-22 20:20] LABS: Glucose, Whole Blood 109 mg/dL (60-115)
[2021-08-22] MEDS: Insulin Glargine,Hum.rec.anlog 100 UNIT/ML 10 ML VIAL 30 UNIT SUBCUT (20:49)
[2021-08-22] MEDS: Atorvastatin Calcium 20 MG TABLET PO (20:50)
--- NOTE | 2021-08-22 22:29 | HE.PHANOTE ---
RN called, stated when she started her shift and saw pt at 1945 patient had a mostly full bag of vanco. Rn said pt completed bag around 2145ish. Delay was due to a scan as well as some issue with the infusion. Trough of 31 is not accurate. Scheduled a new trough for 08/23 @0600 and changed the time of administration to 0800. Jayne RodriguezD BCPS
--- NOTE | 2021-08-22 22:52 | PC.NURSE ---
vanco trough was 31,vanco was not running when this RN went into room to assess pt. Started running immediately, vanco finished at 2145, vanco trough was drawn, came back high. made aware about situation and critical result. This RN called pharmacy, random vanco trough due at 0600, vanco times have changed since 0000 ose woul dbe too close. will pass on to next RN
[2021-08-23] VITALS (13 sets, daily range): BP systolic 142–196; BP diastolic 66–88; PULSE 62–98; RESP 17–20; TEMP 36.6–37.3; O2SAT 94–100
[2021-08-23] MEDS: Piperacillin Sodium/Tazobactam 3.375 GM in 0.9 % Sodium Chloride 50 ML IV ×4 (01:14→19:49)
[2021-08-23] MEDS: 0.9 % Sodium Chloride Flush 3 ML SYRINGE IVFLUSH ×5 (01:15→23:40)
[2021-08-23] MEDS: HYDROmorphone HCl 0.5 MG/0.5 ML SYRINGE 1.5 MG IVPUSH ×4 (01:45→23:41)
[2021-08-23 05:57] LABS: Hematocrit 42.1 % (42.0-52.0); Hemoglobin 13.2 g/dl (14.0-18.0); Mean Corpuscular HGB Conc 31.4 g/dl (31.0-36.0); Mean Corpuscular Hemoglobin 25.7 pg (27.0-33.0); Mean Corpuscular Volume 82.1 fL (80.0-98.0); Mean Platelet Volume 10.1 fL (9.4-12.4); Platelet Count 334 X10*3/uL (160-400); Red Blood Count 5.13 X10*6/uL (4.60-5.80); Red Cell Distribution Width 14.8 % (11.0-16.0); White Blood Count 12.5 X10*3/uL (4.8-10.8)
[2021-08-23 06:27] LABS: Anion Gap 13 (12-20); Blood Urea Nitrogen 15 mg/dL (9-16); Calcium 9.5 mg/dL (8.4-10.2); Carbon Dioxide 28 mmol/L (22-29); Chloride 101 mmol/L (96-108); Creatinine Clr Calc Pharmacy 89.2; Estimated Glomerular Filt Rate > 60; Glucose Random 110 mg/dL (60-115); Potassium 4.4 mmol/L (3.3-5.1); Sodium 138 mmol/L (135-145)
[2021-08-23 06:30] LABS: Vancomycin Random 10.6 mcg/mL (15-20)
[2021-08-23] MEDS: oxyCODONE HCl Immed Release 5 MG TABLET 10 MG PO ×5 (07:28→23:41)
[2021-08-23] MEDS: Insulin Lispro 100 UNIT/ML 3 ML VIAL 10 UNIT SUBCUT ×2 (07:29→16:58)
[2021-08-23] MEDS: Acetaminophen 325 MG TABLET 650 MG PO ×2 (07:29→10:41)
[2021-08-23 07:44] LABS: Glucose, Whole Blood 122 mg/dL (60-115)
[2021-08-23] MEDS: lisinopriL 5 MG TABLET PO (08:32)
[2021-08-23] MEDS: Metoprolol Succinate ER 50 MG TAB.ER.24H PO (08:32)
[2021-08-23] MEDS: Gabapentin 600 MG TABLET PO ×3 (08:32→19:52)
--- NOTE | 2021-08-23 09:23 | HO.VASCPN ---
Subjective Subjective Date of Service: 08/23/21 Patient reports: still having pain Interval history: Patient seen and examined. Events over the past weekend noted. He continues to have cellulitis and pain of the right foot. It has progressively gotten worse. It is to the point where he could not tolerate an MRI. In general he does feel better since admission but is not feeling that great. He now presents for vascular follow-up. Physical Exam Vital Signs: Vital Signs: Last Vital Signs Temp 98.4 F 08/23/21 07:25 Pulse 88 08/23/21 07:25 Resp 18 08/23/21 07:25 BP 193/82 H 08/23/21 07:25 Pulse Ox 97 08/23/21 07:25 BMI result Body Mass Index 29.9 Const: General: cooperative, healthy appearing and no acute distress Orientation/consciousness: oriented to person, oriented to place and oriented to time HENMT: Head: Yes normal to inspection Neck: Carotids: no bruits Chest: Chest palpation & inspection: normal inspection of the chest Resp: Effort & Inspection: normal respiratory effort and able to speak in complete sentences Auscultation: clear to auscultation bilaterally Cardio: Rate: regular rate Heart sounds: S1 normal heart sound present and S2 normal heart sound present GI: Inspection: Yes normal to inspection Skin: General skin exam: no rashes or lesions noted Wounds: amputation site (Right great toe amputation site drainage and cellulitis) Neuro: General: oriented to person, oriented to place, oriented to time and CN's II-XI intact bilaterally Extrem: General: Yes normal to inspection, Yes full ROM and Yes no clubbing, cyanosis or edema Psych: Appearance: grossly normal and well kempt Speech and movement: Normal speech and movement present Affect: normal affect Progress Note: A&P Assessment and plan (1) Cellulitis of foot, right: Status: Acute Assessment and Plan: In short patient has nonhealing great toe amputation site with associated cellulitis and pain. I will schedule him for right foot debridement. My hopes is to open up and clear any infection. Based on that I am hoping that the cellulitis improves in order to salvage any sort of further amputation. This was discussed with the patient in detail along with the via telephone. Thank you for allowing us to assist in his care. If there are any questions or concerns please do not hesitate to contact us. Fall Risk Details Current Medications: Current Medications Acetaminophen (Acetaminophen 325 Mg Tablet) 650 mg PO Q6H PRN PRN Reason: Pain, Mild (Pain Scale 1-3) Last Admin: 08/23/21 07:29 Dose: 650 mg Documented by: Aspirin (Aspirin 81 Mg Tab.Chew) 81 mg PO DAILY [facility] Last Admin: 08/22/21 09:46 Dose: 81 mg Documented by: Atorvastatin Calcium (Atorvastatin Calcium 20 Mg Tablet) 20 mg PO BEDTIME [facility] Last Admin: 08/22/21 20:50 Dose: 20 mg Documented by: Clopidogrel Bisulfate (Clopidogrel Bisulfate 75 Mg Tablet) 75 mg PO DAILY [facility] Last Admin: 08/22/21 09:46 Dose: 75 mg Documented by: Enoxaparin Sodium (Enoxaparin Sodium 40 Mg/0.4 Ml Syringe) 40 mg SUBCUT Q24H [facility] Last Admin: 08/22/21 17:45 Dose: 40 mg Documented by: Gabapentin (Gabapentin 600 Mg Tablet) 600 mg PO TID [facility] Last Admin: 08/23/21 08:32 Dose: 600 mg Documented by: Hydromorphone HCl (Hydromorphone Hcl 0.5 Mg/0.5 Ml Syringe) 1.5 mg IVPUSH Q3H PRN; Protocol PRN Reason: Pain, Severe (Pain Scale 7-10) Last Admin: 08/23/21 01:45 Dose: 1.5 mg Documented by: Piperacillin Sod/Tazobactam (Sod 3.375 gm/ Sodium Chloride) 50 mls @ 100 mls/hr IV Q6H [facility] Last Infusion: 08/23/21 06:51 Dose: Infused Documented by: Vancomycin HCl 1,500 mg/ (Sodium Chloride) 500 mls @ 333.333 mls/hr IV Q12H [facility] Insulin Glargine (Insulin Glargine,Hum.Rec.Anlog 100 Unit/Ml 10 Ml Vial) 30 unit SUBCUT BEDTIME [facility] Last Admin: 08/22/21 20:49 Dose: 30 unit Documented by: Insulin Human Lispro (Insulin Lispro 100 Unit/Ml 3 Ml Vial) 10 unit SUBCUT BIDAC [facility] Last Admin: 08/23/21 07:29 Dose: 10 unit Documented by: Lisinopril (Lisinopril 5 Mg Tablet) 5 mg PO DAILY [facility]; Protocol Last Admin: 08/23/21 08:32 Dose: 5 mg Documented by: Melatonin (Melatonin 3 Mg Tablet) 6 mg PO BEDTIME PRN PRN Reason: Insomnia Last Admin: 08/21/21 20:26 Dose: 6 mg Documented by: Metoprolol Succinate (Metoprolol Succinate Er 50 Mg Tab.Er.24h) 50 mg PO DAILY [facility]; Protocol Last Admin: 08/23/21 08:32 Dose: 50 mg Documented by: Oxycodone HCl (Oxycodone Hcl Immed Release 5 Mg Tablet) 10 mg PO Q4H PRN PRN Reason: Pain, Severe (Pain Scale 7-10) Last Admin: 08/23/21 07:28 Dose: 10 mg Documented by: Pharmacy Consult (Consult Rx Vancomycin Dosing) 1 each MISCELLANE DAILY PRN PRN Reason: Consult order Pharmacy Consult (Consult Rx Perform Med Rec) 1 each MISCELLANE ONCE PRN PRN Reason: Consult order Pharmacy Consult (Consult Rx Vancomycin Dosing) 1 each MISCELLANE DAILY PRN PRN Reason: Consult order Sodium Chloride (0.9 % Sodium Chloride Flush 3 Ml Syringe) [facility] Last Admin: 08/23/21 07:29 Dose: Not Given Documented by: Time Spent With Patient Time: Total time spent is greater than 50% in coordination of care (as documented) at patient's floor/unit and/or counseling patient: Time with patient: 15 - 24 minutes Procedures Date of Service Date of Service: 08/23/21 Quality Stroke Does the patient have a stroke diagnosis?: No VTE Prior VTE?: No VTE Risk Level:: Medical - moderate - high VTE Device Contraindication: Treatment Not Indicated VTE Drug Contraindication: N/A - Med Ordered
--- NOTE | 2021-08-23 09:29 | MHC.SHP ---
Pre-Procedural Eval Section A Date of Service: 08/23/21 The patient is an INPATIENT: Yes The History & Physical has been completed within 30 days and I have reviewed it.: Yes Section B Chief Complaint: cellulitis of the foot Allergies: Allergies Allergy/AdvReac Type Severity Reaction Status Date / Time No Known Allergies Allergy Verified 07/29/21 13:22 [No Known Allergies*] Plan I have reviewed the history and physical and performed a pertinent physical examination on my patient. No changes have occurred unless specified.
--- NOTE | 2021-08-23 09:45 | P.CONAN_ITS ---
[facility] Active Problems Active Problems: All Active Problems (Updated 08/18/21 @ 12:04 by Joey abdi MD) Cellulitis of foot, right (Acute) Acute pain of right foot (Acute) Acute hyperglycemia (Acute) Calculus of distal right ureter (Acute) Plantar fasciitis (Acute) Plantar fasciitis (Acute) Cellulitis (Acute) Cellulitis of left foot (Acute) Ulcer of left heel (Acute) Diabetic foot ulcer (Acute) Non-healing ulcer of foot (Acute) Intractable heel pain (Acute) PAD (peripheral artery disease) (Acute) Diabetic foot ulcer (Acute) Diabetic foot ulcer (Acute) Amputation stump complication (Acute) Intractable left heel pain (Acute) Chronic pancreatitis (Acute) Diabetes mellitus with hyperglycemia, with long-term current use of insulin (Acute) Hx of heart artery stent (Acute) Arthritis (Acute) Increased BMI (Acute) Status post laparoscopic cholecystectomy (Acute) Past Medical History Medical History Alcohol abuse Arthritis CAD (coronary artery disease) Chronic pancreatitis Chronic 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 Diabetes mellitus with hyperglycemia, with long-term current use of insulin Essential hypertension Failure of outpatient treatment Hyperlipidemia Increased BMI Intractable left heel pain Kidney calculus Neuropathy Type 2 diabetes mellitus with diabetic polyneuropathy Type 2 diabetes mellitus with hyperglycemia Family History Family History Mother [place] (myocardial infarction), Onset Age: 64 Diabetes mellitus HTN (hypertension) Maternal Grandmother Diabetes mellitus Family history of problems with anesthesia: No Surgical History Surgical History Hx of heart artery stent Hx of lithotripsy S/P debridement Status post laparoscopic cholecystectomy History of Problems with Anesthesia: No Social History Social History Household Members: Spouse Household Members Other:: and daughter Housing: Apartment Do you presently have visiting nurse or other home services: Yes (vna) Alcohol intake: current Alcohol intake frequency: does not drink Patient Tobacco Use Status: Former Tobacco user Quit Date: 3 weeks ago Tobacco use type: Cigarette Cigarette Packs Per Day: 1 Cigarettes Per Day: 20.0 Years Smoked: 28 Second Hand Smoke Exposure: Yes Substance Use Type: Marijuana Advance Directives Date on File: 04/17/21 service: No Current occupational status: unemployed Meds Allergies Allergy/AdvReac Type Severity Reaction Status Date / Time No Known Allergies Allergy Verified 07/29/21 13:22 [No Known Allergies*] Active Medications: Current Medications Acetaminophen (Acetaminophen 325 Mg Tablet) 650 mg PO Q6H PRN PRN Reason: Pain, Mild (Pain Scale 1-3) Last Admin: 08/23/21 07:29 Dose: 650 mg Documented by: Aspirin (Aspirin 81 Mg Tab.Chew) 81 mg PO DAILY [facility] Last Admin: 08/22/21 09:46 Dose: 81 mg Documented by: Atorvastatin Calcium (Atorvastatin Calcium 20 Mg Tablet) 20 mg PO BEDTIME [facility] Last Admin: 08/22/21 20:50 Dose: 20 mg Documented by: Clopidogrel Bisulfate (Clopidogrel Bisulfate 75 Mg Tablet) 75 mg PO DAILY [facility] Last Admin: 08/22/21 09:46 Dose: 75 mg Documented by: Enoxaparin Sodium (Enoxaparin Sodium 40 Mg/0.4 Ml Syringe) 40 mg SUBCUT Q24H [facility] Last Admin: 08/22/21 17:45 Dose: 40 mg Documented by: Gabapentin (Gabapentin 600 Mg Tablet) 600 mg PO TID [facility] Last Admin: 08/23/21 08:32 Dose: 600 mg Documented by: Hydromorphone HCl (Hydromorphone Hcl 0.5 Mg/0.5 Ml Syringe) 1.5 mg IVPUSH Q3H PRN; Protocol PRN Reason: Pain, Severe (Pain Scale 7-10) Last Admin: 08/23/21 01:45 Dose: 1.5 mg Documented by: Piperacillin Sod/Tazobactam (Sod 3.375 gm/ Sodium Chloride) 50 mls @ 100 mls/hr IV Q6H [facility] Last Infusion: 08/23/21 06:51 Dose: Infused Documented by: Vancomycin HCl 1,500 mg/ (Sodium Chloride) 500 mls @ 333.333 mls/hr IV Q12H [facility] Insulin Glargine (Insulin Glargine,Hum.Rec.Anlog 100 Unit/Ml 10 Ml Vial) 30 unit SUBCUT BEDTIME [facility] Last Admin: 08/22/21 20:49 Dose: 30 unit Documented by: Insulin Human Lispro (Insulin Lispro 100 Unit/Ml 3 Ml Vial) 10 unit SUBCUT BIDAC [facility] Last Admin: 08/23/21 07:29 Dose: 10 unit Documented by: Lisinopril (Lisinopril 5 Mg Tablet) 5 mg PO DAILY [facility]; Protocol Last Admin: 08/23/21 08:32 Dose: 5 mg Documented by: Melatonin (Melatonin 3 Mg Tablet) 6 mg PO BEDTIME PRN PRN Reason: Insomnia Last Admin: 08/21/21 20:26 Dose: 6 mg Documented by: Metoprolol Succinate (Metoprolol Succinate Er 50 Mg Tab.Er.24h) 50 mg PO DAILY [facility]; Protocol Last Admin: 08/23/21 08:32 Dose: 50 mg Documented by: Oxycodone HCl (Oxycodone Hcl Immed Release 5 Mg Tablet) 10 mg PO Q4H PRN PRN Reason: Pain, Severe (Pain Scale 7-10) Last Admin: 08/23/21 07:28 Dose: 10 mg Documented by: Pharmacy Consult (Consult Rx Vancomycin Dosing) 1 each MISCELLANE DAILY PRN PRN Reason: Consult order Pharmacy Consult (Consult Rx Perform Med Rec) 1 each MISCELLANE ONCE PRN PRN Reason: Consult order Pharmacy Consult (Consult Rx Vancomycin Dosing) 1 each MISCELLANE DAILY PRN PRN Reason: Consult order Sodium Chloride (0.9 % Sodium Chloride Flush 3 Ml Syringe) [facility] Last Admin: 08/23/21 07:29 Dose: Not Given Documented by: Home Medications Medication Instructions Recorded Confirmed Last Taken Type atorvastatin 20 mg tablet 1 tab PO BEDTIME 03/24/21 08/18/21 08/16/21 History insulin glargine 100 unit/mL (3 30 unit SUBCUT BEDTIME ml 05/06/21 08/18/21 08/16/21 History mL) subcutaneous pen (Lantus Solostar U-100 Insulin) empagliflozin 25 mg tablet 1 tab PO DAILY 08/14/21 08/18/21 08/17/21 History (Jardiance) Exam Exam Date and Time: August 23, 2021 0945 Height,Weight and Vital Signs: Height 5 ft 5 in Weight 81.647 kg Last Vital Signs Temp 98.4 F 08/23/21 07:25 Pulse 88 08/23/21 07:25 Resp 18 08/23/21 07:25 BP 193/82 H 08/23/21 07:25 Pulse Ox 97 08/23/21 07:25 Pertinent Lab Results Pertinent Lab Results: Laboratory Tests 08/18/21 08/18/21 08/18/21 11:06 11:06 11:06 WBC RBC Hgb Hct MCV MCH MCHC RDW Plt Count MPV Immature Gran % (Auto) Neut % (Auto) Lymph % (Auto) [place] % (Auto) Eos % (Auto) Baso % (Auto) Lymph # (Auto) [place] # (Auto) Eos # (Auto) Baso # (Auto) Abs Immat Gran (auto) Absolute Neuts (auto) Absolute Nucleated RBC Nucleated RBC % (auto) ESR 77 H PT 12.9 INR 1.1 APTT 30.2 Sodium Potassium Chloride Carbon Dioxide Anion Gap BUN Creatinine Estim Creat Clear Calc Estimated GFR POC Glucose Random Glucose Lactic Acid Calcium Total Bilirubin AST ALT Alkaline Phosphatase C-Reactive Protein Total Protein Albumin Lipase Vancomycin Trough Random Vancomycin Influenza Type A (PCR) NEGATIVE Influenza Type B (PCR) NEGATIVE RSV RNA Qual (PCR) NEGATIVE SARS-CoV-2 RNA (RT-PCR) NEGATIVE 08/18/21 08/18/21 08/18/21 11:06 11:07 11:07 WBC 11.7 H RBC 5.01 Hgb 12.9 L Hct 40.7 L MCV 81.2 MCH 25.7 L MCHC 31.7 RDW 14.7 Plt Count 268 MPV 10.4 Immature Gran % (Auto) 0.4 Neut % (Auto) 71.5 Lymph % (Auto) 12.2 L [place] % (Auto) 12.5 H Eos % (Auto) 3.1 Baso % (Auto) 0.3 Lymph # (Auto) 1.4 [place] # (Auto) 1.5 H Eos # (Auto) 0.4 Baso # (Auto) 0.0 Abs Immat Gran (auto) 0.05 H Absolute Neuts (auto) 8.3 Absolute Nucleated RBC 0.000 Nucleated RBC % (auto) 0.0 ESR PT INR APTT Sodium 137 Potassium 4.0 Chloride 101 Carbon Dioxide 26 Anion Gap 14 BUN 14 Creatinine 0.89 Estim Creat Clear Calc 92.2 Estimated GFR > 60 POC Glucose Random Glucose 241 H D Lactic Acid 1.2 Calcium 9.3 Total Bilirubin 0.4 AST 16 ALT 19 Alkaline Phosphatase 83 C-Reactive Protein 13.99 H Total Protein 7.6 Albumin 3.6 Lipase 16 Vancomycin Trough Random Vancomycin Influenza Type A (PCR) Influenza Type B (PCR) RSV RNA Qual (PCR) SARS-CoV-2 RNA (RT-PCR) 08/18/21 08/18/21 08/19/21 17:51 20:50 03:56 WBC RBC Hgb Hct MCV MCH MCHC RDW Plt Count MPV Immature Gran % (Auto) Neut % (Auto) Lymph % (Auto) [place] % (Auto) Eos % (Auto) Baso % (Auto) Lymph # (Auto) [place] # (Auto) Eos # (Auto) Baso # (Auto) Abs Immat Gran (auto) Absolute Neuts (auto) Absolute Nucleated RBC Nucleated RBC % (auto) ESR PT INR APTT Sodium Potassium Chloride Carbon Dioxide Anion Gap BUN Creatinine Estim Creat Clear Calc Estimated GFR POC Glucose 127 H 205 H 144 H Random Glucose Lactic Acid Calcium Total Bilirubin AST ALT Alkaline Phosphatase C-Reactive Protein Total Protein Albumin Lipase Vancomycin Trough Random Vancomycin Influenza Type A (PCR) Influenza Type B (PCR) RSV RNA Qual (PCR) SARS-CoV-2 RNA (RT-PCR) 08/19/21 08/19/21 08/19/21 07:23 07:54 11:07 WBC RBC Hgb Hct MCV MCH MCHC RDW Plt Count MPV Immature Gran % (Auto) Neut % (Auto) Lymph % (Auto) [place] % (Auto) Eos % (Auto) Baso % (Auto) Lymph # (Auto) [place] # (Auto) Eos # (Auto) Baso # (Auto) Abs Immat Gran (auto) Absolute Neuts (auto) Absolute Nucleated RBC Nucleated RBC % (auto) ESR PT INR APTT Sodium 135 Potassium 3.9 Chloride 101 Carbon Dioxide 27 Anion Gap 11 L BUN 11 Creatinine 0.78 Estim Creat Clear Calc 105.2 Estimated GFR > 60 POC Glucose 136 H 171 H Random Glucose 134 H D Lactic Acid Calcium 9.1 Total Bilirubin AST ALT Alkaline Phosphatase C-Reactive Protein Total Protein Albumin Lipase Vancomycin Trough Random Vancomycin Influenza Type A (PCR) Influenza Type B (PCR) RSV RNA Qual (PCR) SARS-CoV-2 RNA (RT-PCR) 08/19/21 08/19/21 08/19/21 16:04 20:27 22:04 WBC RBC Hgb Hct MCV MCH MCHC RDW Plt Count MPV Immature Gran % (Auto) Neut % (Auto) Lymph % (Auto) [place] % (Auto) Eos % (Auto) Baso % (Auto) Lymph # (Auto) [place] # (Auto) Eos # (Auto) Baso # (Auto) Abs Immat Gran (auto) Absolute Neuts (auto) Absolute Nucleated RBC Nucleated RBC % (auto) ESR PT INR APTT Sodium Potassium Chloride Carbon Dioxide Anion Gap BUN Creatinine Estim Creat Clear Calc Estimated GFR POC Glucose 249 H 210 H Random Glucose Lactic Acid Calcium Total Bilirubin AST ALT Alkaline Phosphatase C-Reactive Protein Total Protein Albumin Lipase Vancomycin Trough 11.4 Random Vancomycin Influenza Type A (PCR) Influenza Type B (PCR) RSV RNA Qual (PCR) SARS-CoV-2 RNA (RT-PCR) 08/20/21 08/20/21 08/20/21 05:24 07:46 11:32 WBC RBC Hgb Hct MCV MCH MCHC RDW Plt Count MPV Immature Gran % (Auto) Neut % (Auto) Lymph % (Auto) [place] % (Auto) Eos % (Auto) Baso % (Auto) Lymph # (Auto) [place] # (Auto) Eos # (Auto) Baso # (Auto) Abs Immat Gran (auto) Absolute Neuts (auto) Absolute Nucleated RBC Nucleated RBC % (auto) ESR PT INR APTT Sodium 136 Potassium 4.2 Chloride 102 Carbon Dioxide 25 Anion Gap 13 BUN 12 Creatinine 0.81 Estim Creat Clear Calc 101.3 Estimated GFR > 60 POC Glucose 111 113 Random Glucose 137 H Lactic Acid Calcium 9.1 Total Bilirubin AST ALT Alkaline Phosphatase C-Reactive Protein Total Protein Albumin Lipase Vancomycin Trough Random Vancomycin Influenza Type A (PCR) Influenza Type B (PCR) RSV RNA Qual (PCR) SARS-CoV-2 RNA (RT-PCR) 08/20/21 08/20/21 08/21/21 16:37 20:26 06:16 WBC 11.7 H RBC 4.80 Hgb 12.3 L Hct 38.9 L MCV 81.0 MCH 25.6 L MCHC 31.6 RDW 14.6 Plt Count 283 MPV 10.3 Immature Gran % (Auto) Neut % (Auto) Lymph % (Auto) [place] % (Auto) Eos % (Auto) Baso % (Auto) Lymph # (Auto) [place] # (Auto) Eos # (Auto) Baso # (Auto) Abs Immat Gran (auto) Absolute Neuts (auto) Absolute Nucleated RBC 0.000 Nucleated RBC % (auto) 0.0 ESR PT INR APTT Sodium Potassium Chloride Carbon Dioxide Anion Gap BUN Creatinine Estim Creat Clear Calc Estimated GFR POC Glucose 188 H 148 H Random Glucose Lactic Acid Calcium Total Bilirubin AST ALT Alkaline Phosphatase C-Reactive Protein Total Protein Albumin Lipase Vancomycin Trough Random Vancomycin Influenza Type A (PCR) Influenza Type B (PCR) RSV RNA Qual (PCR) SARS-CoV-2 RNA (RT-PCR) 08/21/21 08/21/21 08/21/21 07:05 07:37 10:05 WBC RBC Hgb Hct MCV MCH MCHC RDW Plt Count MPV Immature Gran % (Auto) Neut % (Auto) Lymph % (Auto) [place] % (Auto) Eos % (Auto) Baso % (Auto) Lymph # (Auto) [place] # (Auto) Eos # (Auto) Baso # (Auto) Abs Immat Gran (auto) Absolute Neuts (auto) Absolute Nucleated RBC Nucleated RBC % (auto) ESR PT INR APTT Sodium Potassium Chloride Carbon Dioxide Anion Gap BUN Creatinine 0.78 Estim Creat Clear Calc 105.2 Estimated GFR > 60 POC Glucose 122 H Random Glucose Lactic Acid Calcium Total Bilirubin AST ALT Alkaline Phosphatase C-Reactive Protein Total Protein Albumin Lipase Vancomycin Trough 12.8 Random Vancomycin Influenza Type A (PCR) Influenza Type B (PCR) RSV RNA Qual (PCR) SARS-CoV-2 RNA (RT-PCR) 08/21/21 08/21/21 08/21/21 11:12 15:51 19:22 WBC RBC Hgb Hct MCV MCH MCHC RDW Plt Count MPV Immature Gran % (Auto) Neut % (Auto) Lymph % (Auto) [place] % (Auto) Eos % (Auto) Baso % (Auto) Lymph # (Auto) [place] # (Auto) Eos # (Auto) Baso # (Auto) Abs Immat Gran (auto) Absolute Neuts (auto) Absolute Nucleated RBC Nucleated RBC % (auto) ESR PT INR APTT Sodium Potassium Chloride Carbon Dioxide Anion Gap BUN Creatinine Estim Creat Clear Calc Estimated GFR POC Glucose 83 200 H 97 Random Glucose Lactic Acid Calcium Total Bilirubin AST ALT Alkaline Phosphatase C-Reactive Protein Total Protein Albumin Lipase Vancomycin Trough Random Vancomycin Influenza Type A (PCR) Influenza Type B (PCR) RSV RNA Qual (PCR) SARS-CoV-2 RNA (RT-PCR) 08/21/21 08/22/21 08/22/21 23:35 06:26 06:36 WBC RBC Hgb Hct MCV MCH MCHC RDW Plt Count MPV Immature Gran % (Auto) Neut % (Auto) Lymph % (Auto) [place] % (Auto) Eos % (Auto) Baso % (Auto) Lymph # (Auto) [place] # (Auto) Eos # (Auto) Baso # (Auto) Abs Immat Gran (auto) Absolute Neuts (auto) Absolute Nucleated RBC Nucleated RBC % (auto) ESR PT INR APTT Sodium Potassium Chloride Carbon Dioxide Anion Gap BUN Creatinine 0.78 Estim Creat Clear Calc 105.2 Estimated GFR > 60 POC Glucose 113 114 Random Glucose Lactic Acid Calcium Total Bilirubin AST ALT Alkaline Phosphatase C-Reactive Protein Total Protein Albumin Lipase Vancomycin Trough Random Vancomycin Influenza Type A (PCR) Influenza Type B (PCR) RSV RNA Qual (PCR) SARS-CoV-2 RNA (RT-PCR) 08/22/21 08/22/21 08/22/21 11:45 16:26 19:26 WBC RBC Hgb Hct MCV MCH MCHC RDW Plt Count MPV Immature Gran % (Auto) Neut % (Auto) Lymph % (Auto) [place] % (Auto) Eos % (Auto) Baso % (Auto) Lymph # (Auto) [place] # (Auto) Eos # (Auto) Baso # (Auto) Abs Immat Gran (auto) Absolute Neuts (auto) Absolute Nucleated RBC Nucleated RBC % (auto) ESR PT INR APTT Sodium Potassium Chloride Carbon Dioxide Anion Gap BUN Creatinine Estim Creat Clear Calc Estimated GFR POC Glucose 110 203 H 109 Random Glucose Lactic Acid Calcium Total Bilirubin AST ALT Alkaline Phosphatase C-Reactive Protein Total Protein Albumin Lipase Vancomycin Trough Random Vancomycin Influenza Type A (PCR) Influenza Type B (PCR) RSV RNA Qual (PCR) SARS-CoV-2 RNA (RT-PCR) 08/22/21 08/23/21 08/23/21 21:42 05:47 05:47 WBC 12.5 H RBC 5.13 Hgb 13.2 L Hct 42.1 MCV 82.1 MCH 25.7 L MCHC 31.4 RDW 14.8 Plt Count 334 MPV 10.1 Immature Gran % (Auto) Neut % (Auto) Lymph % (Auto) [place] % (Auto) Eos % (Auto) Baso % (Auto) Lymph # (Auto) [place] # (Auto) Eos # (Auto) Baso # (Auto) Abs Immat Gran (auto) Absolute Neuts (auto) Absolute Nucleated RBC 0.000 Nucleated RBC % (auto) 0.0 ESR PT INR APTT Sodium 138 Potassium 4.4 Chloride 101 Carbon Dioxide 28 Anion Gap 13 BUN 15 Creatinine 0.92 Estim Creat Clear Calc 89.2 Estimated GFR > 60 POC Glucose Random Glucose 110 Lactic Acid Calcium 9.5 Total Bilirubin AST ALT Alkaline Phosphatase C-Reactive Protein Total Protein Albumin Lipase Vancomycin Trough 31.0 H* Random Vancomycin Influenza Type A (PCR) Influenza Type B (PCR) RSV RNA Qual (PCR) SARS-CoV-2 RNA (RT-PCR) 08/23/21 08/23/21 05:47 07:23 WBC RBC Hgb Hct MCV MCH MCHC RDW Plt Count MPV Immature Gran % (Auto) Neut % (Auto) Lymph % (Auto) [place] % (Auto) Eos % (Auto) Baso % (Auto) Lymph # (Auto) [place] # (Auto) Eos # (Auto) Baso # (Auto) Abs Immat Gran (auto) Absolute Neuts (auto) Absolute Nucleated RBC Nucleated RBC % (auto) ESR PT INR APTT Sodium Potassium Chloride Carbon Dioxide Anion Gap BUN Creatinine Estim Creat Clear Calc Estimated GFR POC Glucose 122 H Random Glucose Lactic Acid Calcium Total Bilirubin AST ALT Alkaline Phosphatase C-Reactive Protein Total Protein Albumin Lipase Vancomycin Trough Random Vancomycin 10.6 L Influenza Type A (PCR) Influenza Type B (PCR) RSV RNA Qual (PCR) SARS-CoV-2 RNA (RT-PCR) Airway Mallampati Class: II (edentulous) TM Dist: >3cm Neck ROM: Full Denture: Upper and Lower Heart: RRR Lungs: CTA Assessment and Plan Assessment Anesthesia Assessment: Anesthesia Plan Discussed and Chart Reviewed Final Anesthetic Review Family History of Problems with Anesthesia: No History of Problems with Anesthesia: No ASA Class: III Final Preanesthetic Review: Meds/Allgs Chart Reviewed, Consent Obtained/Reviewed and Anes Risks/Benef Reviewed Patient Risk: Intermediate Procedure Risk: Low Anesthetic Plan Anesthetic Plan: MAC: Disposition: Standard PACU
--- NOTE | 2021-08-23 09:54 | HO.PICC ---
PICC Line Insertion [facility] Diagnosis: R FOOT CELLULITIS Indication: CUSTODIAL IV ANTIBIOTICS Pertinent Labs: REVIEWED Technique: Following informed consent including risks, benefits and alternatives and using sterile technique including cap and mask, sterile gown, glove and drape, the RIGHT arm was prepped and draped in the usual sterile fashion of full barrier technique with CHG. Following completion of [place] Protocol the skin and soft tissues were anesthetized with 1% Lidocaine plain. Using ultrasound guidance, BASILIC vein access was obtained IN SINGLE ATTEMPT BY THIS RN. Over an 0.018 wire through peel-away sheath, a SINGLE LUMEN, PASV, 4-COSTA RICAN PICC line was positioned. Catheter length is 47 CM internal length, 1 CM external length, for a total trimmed length of 48 CM. The procedure was performed in [facility]. Tip verification was performed by Angeles Sutton with Danuta 3CG. Tip located in SVC. Ultrasound was used to document vein patency and for needle entry. A formal ultrasound picture and cardiac rhythm strip was recorded. Vascular Measuring Clerk has released the line for use and it is currently dressed with a StatLock, Tegaderm, and CHG disc. Verification has been performed for blood return and line patency. Arm Circumference: 36 CM Equipment: Diagnostic [employer] POWERPICC SOLO Catheter Type: SINGLE LUMEN, PASV, 4-COSTA RICAN Lot #: [id number]
--- NOTE | 2021-08-23 10:16 | P.PNIM_ITS ---
Subjective Subjective Date of Service: 08/23/21 Review of Systems Follow up cellulitis of right foot amputation site still with significant pain, feels better when elevated stated that his foot feels numb Physical Exam Vital Signs: Vital Signs: Last Vital Signs Temp 97.8 F 08/23/21 09:42 Pulse 74 08/23/21 09:42 Resp 18 08/23/21 09:42 BP 157/77 H 08/23/21 09:42 Pulse Ox 97 08/23/21 09:42 BMI result Body Mass Index 29.9 Appearing in no acute distress lung sounds are clear to auscultation heart regular rate rhythm, clear S1, S2 positive bowel sounds, abdomen is soft, nontender neuro patient is alert x3, no focal deficits Objective Data Active Medications Acetaminophen (Acetaminophen 325 Mg Tablet) 650 mg PO Q6H PRN PRN Reason: Pain, Mild (Pain Scale 1-3) Last Admin: 08/23/21 07:29 Dose: 650 mg Documented by: TARIQ Acetaminophen (Acetaminophen 325 Mg Tablet) 650 mg PO ONCE PRN PRN Reason: Pain, Mild (Pain Scale 1-3) Aspirin (Aspirin 81 Mg Tab.Chew) 81 mg PO DAILY [facility] Last Admin: 08/22/21 09:46 Dose: 81 mg Documented by: JUAN CARLOS Atorvastatin Calcium (Atorvastatin Calcium 20 Mg Tablet) 20 mg PO BEDTIME [facility] Last Admin: 08/22/21 20:50 Dose: 20 mg Documented by: ALEJANDRA Clopidogrel Bisulfate (Clopidogrel Bisulfate 75 Mg Tablet) 75 mg PO DAILY [facility] Last Admin: 08/22/21 09:46 Dose: 75 mg Documented by: JUAN CARLOS Enoxaparin Sodium (Enoxaparin Sodium 40 Mg/0.4 Ml Syringe) 40 mg SUBCUT Q24H [facility] Last Admin: 08/22/21 17:45 Dose: 40 mg Documented by: JUAN CARLOS Fentanyl (Fentanyl Citrate/Pf 100 Mcg/2 Ml Vial) 50 mcg IVPUSH Q5M PRN; Protocol PRN Reason: Pain, Severe (Pain Scale 7-10) Fentanyl (Fentanyl Citrate/Pf 100 Mcg/2 Ml Vial) 25 mcg IVPUSH Q5M PRN; Protocol PRN Reason: Pain, Moderate (Pain Scale 4-6 Gabapentin (Gabapentin 600 Mg Tablet) 600 mg PO TID [facility] Last Admin: 08/23/21 08:32 Dose: 600 mg Documented by: REGINALDO Hydromorphone HCl (Hydromorphone Hcl 0.5 Mg/0.5 Ml Syringe) 1.5 mg IVPUSH Q3H PRN; Protocol PRN Reason: Pain, Severe (Pain Scale 7-10) Last Admin: 08/23/21 01:45 Dose: 1.5 mg Documented by: MAXIMO Piperacillin Sod/Tazobactam (Sod 3.375 gm/ Sodium Chloride) 50 mls @ 100 mls/hr IV Q6H [facility] Last Infusion: 08/23/21 06:51 Dose: 0 mls/hr Documented by: MAXIMO Vancomycin HCl 1,500 mg/ (Sodium Chloride) 500 mls @ 333.333 mls/hr IV Q12H [facility] Insulin Glargine (Insulin Glargine,Hum.Rec.Anlog 100 Unit/Ml 10 Ml Vial) 30 unit SUBCUT BEDTIME [facility] Last Admin: 08/22/21 20:49 Dose: 30 unit Documented by: IGLMARLENE Insulin Human Lispro (Insulin Lispro 100 Unit/Ml 3 Ml Vial) 10 unit SUBCUT BIDAC [facility] Last Admin: 08/23/21 07:29 Dose: 10 unit Documented by: TARIQ Lisinopril (Lisinopril 5 Mg Tablet) 5 mg PO DAILY [facility]; Protocol Last Admin: 08/23/21 08:32 Dose: 5 mg Documented by: REGINALDO Melatonin (Melatonin 3 Mg Tablet) 6 mg PO BEDTIME PRN PRN Reason: Insomnia Last Admin: 08/21/21 20:26 Dose: 6 mg Documented by: GABBY Metoprolol Succinate (Metoprolol Succinate Er 50 Mg Tab.Er.24h) 50 mg PO DAILY [facility]; Protocol Last Admin: 08/23/21 08:32 Dose: 50 mg Documented by: REGINALDO Oxycodone HCl (Oxycodone Hcl Immed Release 5 Mg Tablet) 10 mg PO Q4H PRN PRN Reason: Pain, Severe (Pain Scale 7-10) Last Admin: 08/23/21 07:28 Dose: 10 mg Documented by: TARIQ Oxycodone HCl (Oxycodone Hcl Immed Release 5 Mg Tablet) 5 mg PO ONCE PRN PRN Reason: Pain, Severe (Pain Scale 7-10) Oxycodone HCl (Oxycodone Hcl Immed Release 5 Mg Tablet) 10 mg PO ONCE PRN PRN Reason: Pain, Severe (Pain Scale 7-10) Pharmacy Consult (Consult Rx Vancomycin Dosing) 1 each MISCELLANE DAILY PRN PRN Reason: Consult order Pharmacy Consult (Consult Rx Perform Med Rec) 1 each MISCELLANE ONCE PRN PRN Reason: Consult order Pharmacy Consult (Consult Rx Vancomycin Dosing) 1 each MISCELLANE DAILY PRN PRN Reason: Consult order Sodium Chloride (0.9 % Sodium Chloride Flush 3 Ml Syringe) 3 ml IVFLUSH QSHIFT [facility] Last Admin: 08/23/21 07:29 Dose: Not Given Documented by: TARIQ Non-Admin Reason: IV Running Labs CBC & Chem 7: 08/23/21 05:47 08/23/21 05:47 Labs: Laboratory Results - last 24 hr 08/22/21 08/22/21 08/22/21 11:45 16:26 19:26 MCV MCH MCHC RDW Plt Count MPV Absolute Nucleated RBC Nucleated RBC % (auto) Anion Gap Estim Creat Clear Calc Estimated GFR POC Glucose 110 203 H 109 Random Glucose Calcium Vancomycin Trough Random Vancomycin 08/22/21 08/23/21 08/23/21 21:42 05:47 05:47 MCV 82.1 MCH 25.7 L MCHC 31.4 RDW 14.8 Plt Count 334 MPV 10.1 Absolute Nucleated RBC 0.000 Nucleated RBC % (auto) 0.0 Anion Gap 13 Estim Creat Clear Calc 89.2 Estimated GFR > 60 POC Glucose Random Glucose 110 Calcium 9.5 Vancomycin Trough 31.0 H* Random Vancomycin 08/23/21 08/23/21 05:47 07:23 MCV MCH MCHC RDW Plt Count MPV Absolute Nucleated RBC Nucleated RBC % (auto) Anion Gap Estim Creat Clear Calc Estimated GFR POC Glucose 122 H Random Glucose Calcium Vancomycin Trough Random Vancomycin 10.6 L Assessment and Plan (1) Cellulitis of foot, right: Status: Acute Assessment and Plan: 56 year old man with diabetes here with post ampuation of right big toe site cellulitis Right big toe amputated site Cellulitis IV Vanco and Zosyn ID is recommending 6 weeks of IV Abx (Ertapenem) at discharge Picc line Monday, cx eg after 48hrs vascular surgery following, agrees with abx for now however patient in significant pain and wound appears to be worsening Unable to perform MRI due to pain, attempted to take patient down twice. To OR for debridement of right great toe Left heel pain due to ulcer neuropathic pain, peripheral vascular disease, dilaudid for pain CAD continue antipletlets , metoprolol,and atorvastatin HTN continue metoprolol, BP stable DM2 continue Lantus and humalog DVT prophylaxis with Lovenox Attending Dr. Sandoval Quality Stroke Does the patient have a stroke diagnosis?: No VTE Prior VTE?: No VTE Risk Level:: Medical - moderate - high VTE Device Contraindication: Treatment Not Indicated VTE Drug Contraindication: N/A - Med Ordered
[2021-08-23] MEDS: fentaNYL citrate/PF 100 MCG/2 ML VIAL 50 MCG IVPUSH ×2 (10:41→10:49)
--- NOTE | 2021-08-23 10:46 | W.PM.OPN ---
Operative Note Operative Note Date of Service: 08/23/21 Narrative: Operative note by [facility] Preoperative diagnosis: Nonhealing right great toe amputation site Postoperative diagnosis: Same Procedure: Excisional debridement right foot into bone Surgeon:Berto Sheppard M.D. Refining Engineer: Dez Anesthesia: Local with sedation Specimens: 1 - deep tissue culture Drains: None Estimated blood loss: Minimal Indications: 56-year-old diabetic gentleman status post great toe amputation he was readmitted with severe cellulitis and pain. He now presents for operative debridement. Risks benefits complications were discussed in detail with the patient and the patient's by phone. The patient has signed the informed consent after reviewing risks, complications, benefits, and alternatives previously discussed with the patient. The patient was given the opportunity to ask any additional questions or voice any concerns. All questions were answered to the patient's satisfaction. Procedure in detail: Patient was brought to the operating room prior to which a time-out was called for patient identification site verification. Right leg was prepped and draped in standard surgical fashion. Once sedation level was achieved we injected the area with local. Sutures were removed which were the prior nylon sutures. We opened up the incision line and a copious amount of serous fluid was expressed. There was no purulent material noted but there was a foul odor associated with this. We then under took debridement. Excisional debridement into bone was performed using 15 blade scalpel and curette necrotic and nonviable tissue was removed. Preprocedure measurement was 3.5 x 1.5 x 0.1 cm postprocedure measurement was 3.5 x 1.7 x 0.3 cm. Once this was accomplished and we debrided into bone deep culture was then undertaken. This was passed off the table as specimen. Copious irrigation was then undertaken. We reapproximated the incision with a 3-0 nylon in a mattress fashion. Quarter-inch iodoform packing was placed. Sterile dressing was applied. At the end of the case sponge instrument counts were correct. Patient tolerated the procedure well. Returned to recovery with stable vitals. This note is constructed using voice recognition software. While every effort has been made to ensure accuracy, cdl company driver errors may have been included. Thank you for allowing me to participate in the care of your patient. Yours sincerely, Berto Sheppard MD, FACS, R.P.V.I.
[2021-08-23] MEDS: vancomycin HCL 1,500 MG in 0.9 % Sodium Chloride 500 ML 333.33 MG IV ×2 (11:20→20:26)
[2021-08-23 12:07] LABS: Glucose, Whole Blood 74 mg/dL (60-115)
[2021-08-23 16:41] LABS: Glucose, Whole Blood 165 mg/dL (60-115)
[2021-08-23] MEDS: Heparin Sodium,Porcine Flush 50 UNITS, 0.9 % Sodium Chloride Flush 5 ML IVFLUSH ×2 (16:59→23:40)
[2021-08-23] MEDS: Enoxaparin Sodium 40 MG/0.4 ML SYRINGE SUBCUT (19:46)
[2021-08-23] MEDS: Melatonin 3 MG TABLET 6 MG PO (19:52)
[2021-08-23] MEDS: Atorvastatin Calcium 20 MG TABLET PO (19:53)
[2021-08-23] MEDS: Insulin Glargine,Hum.rec.anlog 100 UNIT/ML 10 ML VIAL 30 UNIT SUBCUT (19:53)
[2021-08-23 20:10] LABS: Glucose, Whole Blood 131 mg/dL (60-115)
[2021-08-24] VITALS (7 sets, daily range): BP systolic 147–192; BP diastolic 69–86; PULSE 78–98; RESP 17–20; TEMP 36.6–36.9; O2SAT 93–97
[2021-08-24] MEDS: Piperacillin Sodium/Tazobactam 3.375 GM in 0.9 % Sodium Chloride 50 ML IV ×4 (00:22→16:51)
[2021-08-24] MEDS: oxyCODONE HCl Immed Release 5 MG TABLET 10 MG PO ×4 (05:08→20:14)
[2021-08-24] MEDS: HYDROmorphone HCl 0.5 MG/0.5 ML SYRINGE 1.5 MG IVPUSH (05:08)
[2021-08-24 06:13] LABS: Hematocrit 38.6 % (42.0-52.0); Hemoglobin 12.3 g/dl (14.0-18.0); Mean Corpuscular HGB Conc 31.9 g/dl (31.0-36.0); Mean Corpuscular Hemoglobin 25.9 pg (27.0-33.0); Mean Corpuscular Volume 81.4 fL (80.0-98.0); Platelet Count 329 X10*3/uL (160-400); Red Blood Count 4.74 X10*6/uL (4.60-5.80); Red Cell Distribution Width 15.1 % (11.0-16.0); White Blood Count 12.4 X10*3/uL (4.8-10.8)
[2021-08-24 06:54] LABS: Anion Gap 11 (12-20); Blood Urea Nitrogen 14 mg/dL (9-16); Calcium 8.6 mg/dL (8.4-10.2); Carbon Dioxide 28 mmol/L (22-29); Chloride 100 mmol/L (96-108); Creatinine Clr Calc Pharmacy 98.9; Estimated Glomerular Filt Rate > 60; Glucose Random 92 mg/dL (60-115); Potassium 3.9 mmol/L (3.3-5.1); Sodium 135 mmol/L (135-145)
[2021-08-24 07:53] LABS: Glucose, Whole Blood 98 mg/dL (60-115)
[2021-08-24] MEDS: vancomycin HCL 1,500 MG in 0.9 % Sodium Chloride 500 ML 333.33 MG IV ×2 (08:39→20:08)
[2021-08-24] MEDS: 0.9 % Sodium Chloride Flush 3 ML SYRINGE IVFLUSH ×3 (08:40→23:56)
[2021-08-24] MEDS: Metoprolol Succinate ER 50 MG TAB.ER.24H PO (08:41)
[2021-08-24] MEDS: Gabapentin 600 MG TABLET PO ×3 (08:41→20:15)
[2021-08-24] MEDS: Insulin Lispro 100 UNIT/ML 3 ML VIAL 10 UNIT SUBCUT ×2 (08:41→16:53)
[2021-08-24] MEDS: Aspirin 81 MG TAB.CHEW PO (08:41)
[2021-08-24] MEDS: Heparin Sodium,Porcine Flush 50 UNITS, 0.9 % Sodium Chloride Flush 5 ML IVFLUSH ×3 (08:42→23:56)
[2021-08-24] MEDS: Clopidogrel Bisulfate 75 MG TABLET PO (08:42)
[2021-08-24] MEDS: lisinopriL 10 MG TABLET PO (08:42)
--- NOTE | 2021-08-24 08:52 | HO.POSTANES ---
Post Anesthesia Evaluation Post Anesthesia Evaluation Vital Signs: Vital Signs Temp Pulse Resp BP Pulse Ox 08/24/21 08:00 98.3 F 98 18 192/86 H 97 08/24/21 04:00 98.2 F 85 17 183/86 H 96 08/23/21 23:52 98.8 F 79 17 159/74 H 96 Anesthesia: Monitored Mental Status: Awake Pain Control: Satisfactory Nausea/Vomiting: None Hydration: Adequate Anesthesia-Related Issues: No Anes. Related Issues
[2021-08-24] MEDS: LORazepam 2 MG/ML VIAL 0.5 MG IVPUSH (11:01)
[2021-08-24] MEDS: HYDROmorphone HCl 2 MG/ML VIAL IVPUSH ×2 (11:12→15:39)
[2021-08-24 11:31] LABS: Glucose, Whole Blood 113 mg/dL (60-115)
--- NOTE | 2021-08-24 11:43 | P.PNIM_ITS ---
Subjective Subjective Date of Service: 08/24/21 Review of Systems Follow up cellulitis of right foot amputation site still with significant pain, feels better when elevated stated that his foot feels numb Physical Exam Vital Signs: Vital Signs: Last Vital Signs Temp 98.3 F 08/24/21 08:00 Pulse 98 08/24/21 08:00 Resp 18 08/24/21 08:00 BP 192/86 H 08/24/21 08:00 Pulse Ox 97 08/24/21 09:56 BMI result Body Mass Index 29.9 Appearing in no acute distress lung sounds are clear to auscultation heart regular rate rhythm, clear S1, S2 positive bowel sounds, abdomen is soft, nontender neuro patient is alert x3, no focal deficits Objective Data Active Medications Acetaminophen (Acetaminophen 325 Mg Tablet) 650 mg PO Q6H PRN PRN Reason: Pain, Mild (Pain Scale 1-3) Last Admin: 08/23/21 07:29 Dose: 650 mg Documented by: TARIQ Aspirin (Aspirin 81 Mg Tab.Chew) 81 mg PO DAILY [facility] Last Admin: 08/24/21 08:41 Dose: 81 mg Documented by: TOM Atorvastatin Calcium (Atorvastatin Calcium 20 Mg Tablet) 20 mg PO BEDTIME [facility] Last Admin: 08/23/21 19:53 Dose: 20 mg Documented by: MATTHEW Clopidogrel Bisulfate (Clopidogrel Bisulfate 75 Mg Tablet) 75 mg PO DAILY [facility] Last Admin: 08/24/21 08:42 Dose: 75 mg Documented by: TOM Heparin Sodium (Porcine) 50 (units/ Sodium Chloride 5 ml) 0 units IVFLUSH QSHIFT [facility] Last Admin: 08/24/21 08:42 Dose: 5 unit Documented by: TOM Comments: 50, 000 units in 5ml Enoxaparin Sodium (Enoxaparin Sodium 40 Mg/0.4 Ml Syringe) 40 mg SUBCUT Q24H [facility] Last Admin: 08/23/21 19:46 Dose: 40 mg Documented by: MATTHEW Fentanyl (Fentanyl Citrate/Pf 100 Mcg/2 Ml Vial) 50 mcg IVPUSH Q5M PRN; Protocol PRN Reason: Pain, Severe (Pain Scale 7-10) Last Admin: 08/23/21 10:49 Dose: 50 mcg Documented by: ZARA Fentanyl (Fentanyl Citrate/Pf 100 Mcg/2 Ml Vial) 25 mcg IVPUSH Q5M PRN; Protocol PRN Reason: Pain, Moderate (Pain Scale 4-6 Gabapentin (Gabapentin 600 Mg Tablet) 600 mg PO TID [facility] Last Admin: 08/24/21 08:41 Dose: 600 mg Documented by: TOM Hydromorphone HCl (Hydromorphone Hcl 2 Mg/Ml Vial) 2 mg IVPUSH Q3H PRN; Protocol PRN Reason: Pain, Severe (Pain Scale 7-10) Last Admin: 08/24/21 11:12 Dose: 2 mg Documented by: TOM Piperacillin Sod/Tazobactam (Sod 3.375 gm/ Sodium Chloride) 50 mls @ 100 mls/hr IV Q6H [facility] Last Admin: 08/24/21 11:09 Dose: 100 mls/hr Documented by: TOM Vancomycin HCl 1,500 mg/ (Sodium Chloride) 500 mls @ 333.333 mls/hr IV Q12H [facility] Last Infusion: 08/24/21 11:18 Dose: 0 mls/hr Documented by: TOM Insulin Glargine (Insulin Glargine,Hum.Rec.Anlog 100 Unit/Ml 10 Ml Vial) 30 unit SUBCUT BEDTIME [facility] Last Admin: 08/23/21 19:53 Dose: 30 unit Documented by: MATTHEW Insulin Human Lispro (Insulin Lispro 100 Unit/Ml 3 Ml Vial) 10 unit SUBCUT BIDAC [facility] Last Admin: 08/24/21 08:41 Dose: 10 unit Documented by: TOM Lisinopril (Lisinopril 10 Mg Tablet) 10 mg PO DAILY [facility]; Protocol Last Admin: 08/24/21 08:42 Dose: 10 mg Documented by: TOM Melatonin (Melatonin 3 Mg Tablet) 6 mg PO BEDTIME PRN PRN Reason: Insomnia Last Admin: 08/21/21 20:26 Dose: 6 mg Documented by: GABBY Melatonin (Melatonin 3 Mg Tablet) 6 mg PO BEDTIME [facility] Last Admin: 08/23/21 19:52 Dose: 6 mg Documented by: MATTHEW Metoprolol Succinate (Metoprolol Succinate Er 50 Mg Tab.Er.24h) 50 mg PO DAILY [facility]; Protocol Last Admin: 08/24/21 08:41 Dose: 50 mg Documented by: TOM Oxycodone HCl (Oxycodone Hcl Immed Release 5 Mg Tablet) 10 mg PO Q4H PRN PRN Reason: Pain, Severe (Pain Scale 7-10) Last Admin: 08/24/21 11:07 Dose: 10 mg Documented by: TOM Oxycodone HCl (Oxycodone Hcl Immed Release 5 Mg Tablet) 5 mg PO ONCE PRN PRN Reason: Pain, Severe (Pain Scale 7-10) Pharmacy Consult (Consult Rx Vancomycin Dosing) 1 each MISCELLANE DAILY PRN PRN Reason: Consult order Pharmacy Consult (Consult Rx Perform Med Rec) 1 each MISCELLANE ONCE PRN PRN Reason: Consult order Pharmacy Consult (Consult Rx Vancomycin Dosing) 1 each MISCELLANE DAILY PRN PRN Reason: Consult order Sodium Chloride (0.9 % Sodium Chloride Flush 3 Ml Syringe) 3 ml IVFLUSH [facility] Last Admin: 08/24/21 08:40 Dose: 3 ml Documented by: TOM Labs CBC & Chem 7: 08/24/21 05:22 08/24/21 05:22 Labs: Laboratory Results - last 24 hr 08/23/21 08/23/21 08/23/21 11:27 16:10 19:42 MCV MCH MCHC RDW Plt Count MPV Absolute Nucleated RBC Nucleated RBC % (auto) Anion Gap Estim Creat Clear Calc Estimated GFR POC Glucose 74 165 H 131 H Random Glucose Calcium 08/24/21 08/24/21 08/24/21 05:22 05:22 07:37 MCV 81.4 MCH 25.9 L MCHC 31.9 RDW 15.1 Plt Count 329 MPV 10.0 Absolute Nucleated RBC 0.000 Nucleated RBC % (auto) 0.0 Anion Gap 11 L Estim Creat Clear Calc 98.9 Estimated GFR > 60 POC Glucose 98 Random Glucose 92 Calcium 8.6 D 08/24/21 11:15 MCV MCH MCHC RDW Plt Count MPV Absolute Nucleated RBC Nucleated RBC % (auto) Anion Gap Estim Creat Clear Calc Estimated GFR POC Glucose 113 Random Glucose Calcium Microbiology Microbiology Results: Microbiology 08/23/21 Unknown Gram Stain - Final Foot Right Routine Culture - Preliminary Gram negative jacinto 08/18/21 11:06 Blood Culture - Final Blood - Venous No growth after 5 days. 08/18/21 11:06 Blood Culture - Final Blood - Venous No growth after 5 days. Assessment and Plan (1) Cellulitis of foot, right: Status: Acute Assessment and Plan: 56 year old man with diabetes here with post amputation of right big toe site cellulitis Right big toe amputated site Cellulitis IV Vanco and Zosyn ID is recommending 6 weeks of IV Abx (Ertapenem) at discharge Picc line Monday, cx eg after 48hrs vascular surgery following, agrees with abx for now however patient in significant pain and wound appears to be worsening Unable to perform MRI due to pain, attempted to take patient down twice. 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 Elevated continue metoprolol Added Lisinopril DM2 continue Lantus and humalog DVT prophylaxis with Lovenox Attending Dr. Baig Quality Stroke Does the patient have a stroke diagnosis?: No VTE Prior VTE?: No VTE Risk Level:: Medical - moderate - high VTE Device Contraindication: Treatment Not Indicated VTE Drug Contraindication: N/A - Med Ordered
[2021-08-24] MEDS: Acetaminophen 325 MG TABLET 650 MG PO (15:39)
--- NOTE | 2021-08-24 15:48 | MHC.CM.PN ---
NURSE STRADDLE BUG OPERATOR NOTE ELECTRONIC MEDICAL RECORD REVIEWED ALONG WITH CASE DISCUSSED ON ,MULTIPLE DISCIPLAINRY ROUNDS. PATIENT HASD 08/23/21 EXCISIONAL DEBRIDEMENT IN THE OR , PER HOSPITALSIT POWER SYSTEM ENGINEER PATIENT STILL HAVING [facility] AND MAY NEED AMPUTATION DISCHARGE PLAN RADIANCE VNA FOR HOME CORRECTION PT INITIAL REF WAS SENT TO [facility] FOR POSSIBLE IV ABX IF OATIENT HAS MORE SURGERY MAY NEED SHORT TERM REHAB STRADDLE BUG OPERATOR TO CONTINUE TO FOLLOW
--- NOTE | 2021-08-24 16:19 | HO.VASCPN ---
Subjective Subjective Date of Service: 08/24/21 Patient reports: no new complaints and still having pain Interval history: 56-year-old gentleman status post debridement of foot. He appears to be doing relatively the same. He did have pain issues overnight. At the time of my visit he appeared to be comfortable. He was tolerating a diet. Now for postoperative wound check. Physical Exam Vital Signs: Vital Signs: Last Vital Signs Temp 98.5 F 08/24/21 11:47 Pulse 80 08/24/21 11:47 Resp 20 08/24/21 11:47 BP 163/76 H 08/24/21 11:47 Pulse Ox 94 08/24/21 11:47 BMI result Body Mass Index 29.9 Const: General: cooperative, healthy appearing and no acute distress Orientation/consciousness: oriented to person, oriented to place and oriented to time HENMT: Head: Yes normal to inspection Neck: Carotids: no bruits Chest: Chest palpation & inspection: normal inspection of the chest Resp: Effort & Inspection: normal respiratory effort and able to speak in complete sentences Auscultation: clear to auscultation bilaterally Cardio: Rate: regular rate Heart sounds: S1 normal heart sound present and S2 normal heart sound present GI: Inspection: Yes normal to inspection Skin: General skin exam: no rashes or lesions noted Wounds: wounds noted (Right foot) Neuro: General: oriented to person, oriented to place, oriented to time and CN's II-XI intact bilaterally Extrem: General: Yes normal to inspection, Yes full ROM and Yes no clubbing, cyanosis or edema Psych: Appearance: grossly normal and well kempt Speech and movement: Normal speech and movement present Affect: normal affect Progress Note: A&P Assessment and plan (1) PAD (peripheral artery disease): Status: Acute Assessment and Plan: In short patient has a nonhealing amputation site. He will require further resection. My hope is that the cellulitis does decreased prior to any further operative intervention. I discussed this with the patient and the hospitalist team. After removal of packing his pain did seem to decrease and he was fairly stable. We will continue to closely monitor him with you. Thank you for allowing us to assist in his care. Fall Risk Details Current Medications: Current Medications Acetaminophen (Acetaminophen 325 Mg Tablet) 650 mg PO Q6H PRN PRN Reason: Pain, Mild (Pain Scale 1-3) Last Admin: 08/24/21 15:39 Dose: 650 mg Documented by: Aspirin (Aspirin 81 Mg Tab.Chew) 81 mg PO DAILY [facility] Last Admin: 08/24/21 08:41 Dose: 81 mg Documented by: Atorvastatin Calcium (Atorvastatin Calcium 20 Mg Tablet) 20 mg PO BEDTIME [facility] Last Admin: 08/23/21 19:53 Dose: 20 mg Documented by: Clopidogrel Bisulfate (Clopidogrel Bisulfate 75 Mg Tablet) 75 mg PO DAILY [facility] Last Admin: 08/24/21 08:42 Dose: 75 mg Documented by: Heparin Sodium (Porcine) 50 (units/ Sodium Chloride 5 ml) 0 units IVFLUSH QSHIFT [facility] Last Admin: 08/24/21 15:42 Dose: 50 unit Documented by: Enoxaparin Sodium (Enoxaparin Sodium 40 Mg/0.4 Ml Syringe) 40 mg SUBCUT Q24H [facility] Last Admin: 08/23/21 19:46 Dose: 40 mg Documented by: Fentanyl (Fentanyl Citrate/Pf 100 Mcg/2 Ml Vial) 50 mcg IVPUSH Q5M PRN; Protocol PRN Reason: Pain, Severe (Pain Scale 7-10) Last Admin: 08/23/21 10:49 Dose: 50 mcg Documented by: Fentanyl (Fentanyl Citrate/Pf 100 Mcg/2 Ml Vial) 25 mcg IVPUSH Q5M PRN; Protocol PRN Reason: Pain, Moderate (Pain Scale 4-6 Gabapentin (Gabapentin 600 Mg Tablet) 600 mg PO TID [facility] Last Admin: 08/24/21 15:39 Dose: 600 mg Documented by: Hydromorphone HCl (Hydromorphone Hcl 2 Mg/Ml Vial) 2 mg IVPUSH Q3H PRN; Protocol PRN Reason: Pain, Severe (Pain Scale 7-10) Last Admin: 08/24/21 15:39 Dose: 2 mg Documented by: Piperacillin Sod/Tazobactam (Sod 3.375 gm/ Sodium Chloride) 50 mls @ 100 mls/hr IV Q6H [facility] Last Infusion: 08/24/21 13:07 Dose: Infused Documented by: Vancomycin HCl 1,500 mg/ (Sodium Chloride) 500 mls @ 333.333 mls/hr IV Q12H [facility] Last Infusion: 08/24/21 11:18 Dose: Infused Documented by: Insulin Glargine (Insulin Glargine,Hum.Rec.Anlog 100 Unit/Ml 10 Ml Vial) 30 unit SUBCUT BEDTIME [facility] Last Admin: 08/23/21 19:53 Dose: 30 unit Documented by: Insulin Human Lispro (Insulin Lispro 100 Unit/Ml 3 Ml Vial) 10 unit SUBCUT BIDAC [facility] Last Admin: 08/24/21 08:41 Dose: 10 unit Documented by: Lisinopril (Lisinopril 10 Mg Tablet) 10 mg PO DAILY [facility]; Protocol Last Admin: 08/24/21 08:42 Dose: 10 mg Documented by: Melatonin (Melatonin 3 Mg Tablet) 6 mg PO BEDTIME PRN PRN Reason: Insomnia Last Admin: 08/21/21 20:26 Dose: 6 mg Documented by: Melatonin (Melatonin 3 Mg Tablet) 6 mg PO BEDTIME [facility] Last Admin: 08/23/21 19:52 Dose: 6 mg Documented by: Metoprolol Succinate (Metoprolol Succinate Er 50 Mg Tab.Er.24h) 50 mg PO DAILY [facility]; Protocol Last Admin: 08/24/21 08:41 Dose: 50 mg Documented by: Oxycodone HCl (Oxycodone Hcl Immed Release 5 Mg Tablet) 10 mg PO Q4H PRN PRN Reason: Pain, Severe (Pain Scale 7-10) Last Admin: 08/24/21 15:39 Dose: 10 mg Documented by: Oxycodone HCl (Oxycodone Hcl Immed Release 5 Mg Tablet) 5 mg PO ONCE PRN PRN Reason: Pain, Severe (Pain Scale 7-10) Pharmacy Consult (Consult Rx Vancomycin Dosing) 1 each MISCELLANE DAILY PRN PRN Reason: Consult order Pharmacy Consult (Consult Rx Perform Med Rec) 1 each MISCELLANE ONCE PRN PRN Reason: Consult order Pharmacy Consult (Consult Rx Vancomycin Dosing) 1 each MISCELLANE DAILY PRN PRN Reason: Consult order Sodium Chloride (0.9 % Sodium Chloride Flush 3 Ml Syringe) 3 ml IVFLUSH QSHIFT [facility] Last Admin: 08/24/21 15:44 Dose: 3 ml Documented by: Time Spent With Patient Time: Total time spent is greater than 50% in coordination of care (as documented) at patient's floor/unit and/or counseling patient: Time with patient: 15 - 24 minutes Procedures Date of Service Date of Service: 08/24/21 Quality Stroke Does the patient have a stroke diagnosis?: No VTE Prior VTE?: No VTE Risk Level:: Medical - moderate - high VTE Device Contraindication: Treatment Not Indicated VTE Drug Contraindication: N/A - Med Ordered
[2021-08-24 16:28] LABS: Glucose, Whole Blood 149 mg/dL (60-115)
[2021-08-24] MEDS: Enoxaparin Sodium 40 MG/0.4 ML SYRINGE SUBCUT (16:51)
[2021-08-24 18:43] LABS: Vancomycin Trough 14.3 mcg/mL (10.0-20.0)
[2021-08-24 19:40] LABS: Glucose, Whole Blood 164 mg/dL (60-115)
--- NOTE | 2021-08-24 19:45 | PC.NURSE ---
Pt alert and oriented x3. Pt c/o severe pain 10/10 to the right foot amp site. Pt noted to be crying with excruciating pain and holding the leg up to alleviate the pain. Area is noted to be dusks in color and warm to touch. Pt educated to keep wound covered. PRN Dilaudid, Oxy and Tylenol given with some effect but quickly wore off.
[2021-08-24] MEDS: HYDROmorphone HCl 2 MG/ML VIAL 1.5 MG IVPUSH (20:12)
[2021-08-24] MEDS: Insulin Glargine,Hum.rec.anlog 100 UNIT/ML 10 ML VIAL 30 UNIT SUBCUT (20:13)
[2021-08-24] MEDS: Melatonin 3 MG TABLET 6 MG PO (20:15)
[2021-08-24] MEDS: Atorvastatin Calcium 20 MG TABLET PO (20:15)
[2021-08-25] VITALS (10 sets, daily range): BP systolic 107–179; BP diastolic 57–87; PULSE 78–108; RESP 16–20; TEMP 36.2–38.1; O2SAT 95–99
[2021-08-25] MEDS: Piperacillin Sodium/Tazobactam 3.375 GM in 0.9 % Sodium Chloride 50 ML IV ×4 (00:01→17:46)
[2021-08-25] MEDS: HYDROmorphone HCl 2 MG/ML VIAL 1.5 MG IVPUSH ×6 (04:38→21:16)
[2021-08-25] MEDS: oxyCODONE HCl Immed Release 5 MG TABLET 10 MG PO ×4 (04:39→20:07)
[2021-08-25 06:03] LABS: Creatinine Clr Calc Pharmacy 100.1; Estimated Glomerular Filt Rate > 60
[2021-08-25 07:58] LABS: Glucose, Whole Blood 135 mg/dL (60-115)
[2021-08-25] MEDS: vancomycin HCL 1,500 MG in 0.9 % Sodium Chloride 500 ML 333.33 MG IV ×2 (08:23→20:06)
[2021-08-25] MEDS: Insulin Lispro 100 UNIT/ML 3 ML VIAL 10 UNIT SUBCUT ×2 (08:23→16:51)
[2021-08-25] MEDS: 0.9 % Sodium Chloride Flush 3 ML SYRINGE IVFLUSH ×2 (08:23→16:51)
[2021-08-25] MEDS: amLODIPine Besylate 5 MG TABLET PO (08:28)
[2021-08-25] MEDS: Clopidogrel Bisulfate 75 MG TABLET PO (08:28)
[2021-08-25] MEDS: Aspirin 81 MG TAB.CHEW PO (08:28)
[2021-08-25] MEDS: Gabapentin 600 MG TABLET PO ×3 (08:28→20:07)
[2021-08-25] MEDS: Heparin Sodium,Porcine Flush 50 UNITS, 0.9 % Sodium Chloride Flush 5 ML IVFLUSH ×2 (08:29→15:17)
[2021-08-25] MEDS: Metoprolol Succinate ER 50 MG TAB.ER.24H PO (08:29)
[2021-08-25] MEDS: lisinopriL 10 MG TABLET PO (08:29)
--- NOTE | 2021-08-25 10:25 | HO.PM.IMPN ---
Subjective Subjective Date of Service: 08/25/21 Review of Systems Follow up cellulitis of right foot amputation site, s/p debridement Much better pain control today Physical Exam Vital Signs: Vital Signs: Last Vital Signs Temp 98.1 F 08/25/21 08:00 Pulse 80 08/25/21 08:29 Resp 20 08/25/21 08:00 BP 179/87 H 08/25/21 08:29 Pulse Ox 95 08/25/21 09:00 BMI result Body Mass Index 29.9 Appearing in no acute distress lung sounds are clear to auscultation heart regular rate rhythm, clear S1, S2 positive bowel sounds, abdomen is soft, nontender neuro patient is alert x3, no focal deficits Objective Data Active Medications Acetaminophen (Acetaminophen 325 Mg Tablet) 650 mg PO Q6H PRN PRN Reason: Pain, Mild (Pain Scale 1-3) Last Admin: 08/24/21 15:39 Dose: 650 mg Documented by: TOM Amlodipine Besylate (Amlodipine Besylate 5 Mg Tablet) 5 mg PO DAILY [facility]; Protocol Last Admin: 08/25/21 08:28 Dose: 5 mg Documented by: MARYCRUZ Aspirin (Aspirin 81 Mg Tab.Chew) 81 mg PO DAILY [facility] Last Admin: 08/25/21 08:28 Dose: 81 mg Documented by: MARYCRUZ Atorvastatin Calcium (Atorvastatin Calcium 20 Mg Tablet) 20 mg PO BEDTIME [facility] Last Admin: 08/24/21 20:15 Dose: 20 mg Documented by: MATTHEW Clopidogrel Bisulfate (Clopidogrel Bisulfate 75 Mg Tablet) 75 mg PO DAILY [facility] Last Admin: 08/25/21 08:28 Dose: 75 mg Documented by: MARYCRUZ Heparin Sodium (Porcine) 50 (units/ Sodium Chloride 5 ml) 0 units IVFLUSH QSHIFT [facility] Last Admin: 08/25/21 08:29 Dose: 50 unit Documented by: MARYCRUZ Enoxaparin Sodium (Enoxaparin Sodium 40 Mg/0.4 Ml Syringe) 40 mg SUBCUT Q24H [facility] Last Admin: 08/24/21 16:51 Dose: 40 mg Documented by: TOM Fentanyl (Fentanyl Citrate/Pf 100 Mcg/2 Ml Vial) 50 mcg IVPUSH Q5M PRN; Protocol PRN Reason: Pain, Severe (Pain Scale 7-10) Last Admin: 08/23/21 10:49 Dose: 50 mcg Documented by: ZARA Fentanyl (Fentanyl Citrate/Pf 100 Mcg/2 Ml Vial) 25 mcg IVPUSH Q5M PRN; Protocol PRN Reason: Pain, Moderate (Pain Scale 4-6 Gabapentin (Gabapentin 600 Mg Tablet) 600 mg PO TID [facility] Last Admin: 08/25/21 08:28 Dose: 600 mg Documented by: MARYCRUZ Hydromorphone HCl (Hydromorphone Hcl 2 Mg/Ml Vial) 1.5 mg IVPUSH Q3H PRN; Protocol PRN Reason: Pain, Severe (Pain Scale 7-10) Last Admin: 08/25/21 08:30 Dose: 1.5 mg Documented by: MARYCRUZ Piperacillin Sod/Tazobactam (Sod 3.375 gm/ Sodium Chloride) 50 mls @ 100 mls/hr IV Q6H [facility] Last Infusion: 08/25/21 05:12 Dose: 0 mls/hr Documented by: MATTHEW Vancomycin HCl 1,500 mg/ (Sodium Chloride) 500 mls @ 333.333 mls/hr IV Q12H [facility] Last Infusion: 08/25/21 09:59 Dose: 0 mls/hr Documented by: MARYCRUZ Insulin Glargine (Insulin Glargine,Hum.Rec.Anlog 100 Unit/Ml 10 Ml Vial) 30 unit SUBCUT BEDTIME [facility] Last Admin: 08/24/21 20:13 Dose: 30 unit Documented by: MATTHEW Insulin Human Lispro (Insulin Lispro 100 Unit/Ml 3 Ml Vial) 10 unit SUBCUT BIDAC [facility] Last Admin: 08/25/21 08:23 Dose: 10 unit Documented by: MARYCRUZ Lisinopril (Lisinopril 10 Mg Tablet) 10 mg PO DAILY [facility]; Protocol Last Admin: 08/25/21 08:29 Dose: 10 mg Documented by: MARYCRUZ Melatonin (Melatonin 3 Mg Tablet) 6 mg PO BEDTIME PRN PRN Reason: Insomnia Last Admin: 08/21/21 20:26 Dose: 6 mg Documented by: GABBY Melatonin (Melatonin 3 Mg Tablet) 6 mg PO BEDTIME [facility] Last Admin: 08/24/21 20:15 Dose: 6 mg Documented by: MATTHEW Metoprolol Succinate (Metoprolol Succinate Er 50 Mg Tab.Er.24h) 50 mg PO DAILY [facility]; Protocol Last Admin: 08/25/21 08:29 Dose: 50 mg Documented by: MARYCRUZ Oxycodone HCl (Oxycodone Hcl Immed Release 5 Mg Tablet) 10 mg PO Q4H PRN PRN Reason: Pain, Severe (Pain Scale 7-10) Last Admin: 08/25/21 08:28 Dose: 10 mg Documented by: MARYCRUZ Oxycodone HCl (Oxycodone Hcl Immed Release 5 Mg Tablet) 5 mg PO ONCE PRN PRN Reason: Pain, Severe (Pain Scale 7-10) Pharmacy Consult (Consult Rx Vancomycin Dosing) 1 each MISCELLANE DAILY PRN PRN Reason: Consult order Pharmacy Consult (Consult Rx Perform Med Rec) 1 each MISCELLANE ONCE PRN PRN Reason: Consult order Pharmacy Consult (Consult Rx Vancomycin Dosing) 1 each MISCELLANE DAILY PRN PRN Reason: Consult order Sodium Chloride (0.9 % Sodium Chloride Flush 3 Ml Syringe) [facility] Last Admin: 08/25/21 08:23 Dose: 3 ml Documented by: MARYCRUZ Labs CBC & Chem 7: 08/24/21 05:22 08/25/21 05:34 Labs: Laboratory Results - last 24 hr 08/24/21 08/24/21 08/24/21 11:15 16:20 18:07 Estim Creat Clear Calc Estimated GFR POC Glucose 113 149 H Vancomycin Trough 14.3 08/24/21 08/25/21 08/25/21 19:29 05:34 07:49 Estim Creat Clear Calc 100.1 Estimated GFR > 60 POC Glucose 164 H 135 H Vancomycin Trough Microbiology Microbiology Results: Microbiology 08/23/21 Unknown Gram Stain - Final Foot Right Routine Culture - Final Citrobacter freundii Assessment and Plan (1) Cellulitis of foot, right: Status: Acute Assessment and Plan: 56 year old man with diabetes here with post amputation of right big toe site cellulitis Right big toe amputated site Cellulitis IV Vanco and Zosyn ID is recommending 6 weeks of IV Abx (Ertapenem) at discharge Picc line Monday, cx eg after 48hrs vascular surgery following, debridement of right great toe done, pain control is better today Plan is to allow some of the erythema to go down and will require further amputation during this admission 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 Elevated continue metoprolol Added Lisinopril DM2 continue Lantus and humalog DVT prophylaxis with Lovenox Attending Dr. Baig Quality Stroke Does the patient have a stroke diagnosis?: No VTE Prior VTE?: No VTE Risk Level:: Medical - moderate - high VTE Device Contraindication: Treatment Not Indicated VTE Drug Contraindication: N/A - Med Ordered
[2021-08-25 11:38] LABS: Glucose, Whole Blood 123 mg/dL (60-115)
--- NOTE | 2021-08-25 13:17 | P.PNVS_ITS ---
Subjective Subjective Date of Service: 08/25/21 Patient reports: no new complaints, feels better and pain is less Interval history: Patient seen examined. No significant events overnight. He reports that his pain is significantly better. He has had no other changes. He is now for wound check follow-up. Physical Exam Vital Signs: Vital Signs: Last Vital Signs Temp 100.6 F H 08/25/21 11:23 Pulse 80 08/25/21 11:23 Resp 20 08/25/21 11:23 BP 110/64 08/25/21 11:23 Pulse Ox 96 08/25/21 11:23 BMI result Body Mass Index 29.9 Const: General: cooperative, healthy appearing and no acute distress Orientation/consciousness: oriented to person, oriented to place and oriented to time HENMT: Head: Yes normal to inspection Neck: Carotids: no bruits Chest: Chest palpation & inspection: normal inspection of the chest Resp: Effort & Inspection: normal respiratory effort and able to speak in complete sentences Auscultation: clear to auscultation bilaterally Cardio: Rate: regular rate Heart sounds: S1 normal heart sound present and S2 normal heart sound present GI: Inspection: Yes normal to inspection Skin: General skin exam: no rashes or lesions noted Wounds: wounds noted (Nonhealing great toe amputation side right) Neuro: General: oriented to person, oriented to place, oriented to time and CN's II-XI intact bilaterally Extrem: General: Yes normal to inspection, Yes full ROM and Yes no clubbing, cyanosis or edema Psych: Appearance: grossly normal and well kempt Speech and movement: Normal speech and movement present Affect: normal affect Progress Note: A&P Assessment and plan (1) Diabetic foot ulcer: Status: Acute Assessment and Plan: In short patient has a nonhealing right great toe amputation. He will require right great toe ray amputation. Risks benefits complications were discussed in detail with the patient and the patient's son via phone. They demonstrated clear understanding and consented. We will schedule for tomorrow. Fall Risk Details Current Medications: Current Medications Acetaminophen (Acetaminophen 325 Mg Tablet) 650 mg PO Q6H PRN PRN Reason: Pain, Mild (Pain Scale 1-3) Last Admin: 08/24/21 15:39 Dose: 650 mg Documented by: Amlodipine Besylate (Amlodipine Besylate 5 Mg Tablet) 5 mg PO DAILY [facility]; Protocol Last Admin: 08/25/21 08:28 Dose: 5 mg Documented by: Aspirin (Aspirin 81 Mg Tab.Chew) 81 mg PO DAILY [facility] Last Admin: 08/25/21 08:28 Dose: 81 mg Documented by: Atorvastatin Calcium (Atorvastatin Calcium 20 Mg Tablet) 20 mg PO BEDTIME [facility] Last Admin: 08/24/21 20:15 Dose: 20 mg Documented by: Clopidogrel Bisulfate (Clopidogrel Bisulfate 75 Mg Tablet) 75 mg PO DAILY [facility] Last Admin: 08/25/21 08:28 Dose: 75 mg Documented by: Heparin Sodium (Porcine) 50 (units/ Sodium Chloride 5 ml) 0 units IVFLUSH QSHIFT [facility] Last Admin: 08/25/21 08:29 Dose: 50 unit Documented by: Enoxaparin Sodium (Enoxaparin Sodium 40 Mg/0.4 Ml Syringe) 40 mg SUBCUT Q24H [facility] Last Admin: 08/24/21 16:51 Dose: 40 mg Documented by: Fentanyl (Fentanyl Citrate/Pf 100 Mcg/2 Ml Vial) 50 mcg IVPUSH Q5M PRN; Protocol PRN Reason: Pain, Severe (Pain Scale 7-10) Last Admin: 08/23/21 10:49 Dose: 50 mcg Documented by: Fentanyl (Fentanyl Citrate/Pf 100 Mcg/2 Ml Vial) 25 mcg IVPUSH Q5M PRN; Protocol PRN Reason: Pain, Moderate (Pain Scale 4-6 Gabapentin (Gabapentin 600 Mg Tablet) 600 mg PO TID [facility] Last Admin: 08/25/21 08:28 Dose: 600 mg Documented by: Hydromorphone HCl (Hydromorphone Hcl 2 Mg/Ml Vial) 1.5 mg IVPUSH Q3H PRN; Protocol PRN Reason: Pain, Severe (Pain Scale 7-10) Last Admin: 08/25/21 12:02 Dose: 1.5 mg Documented by: Piperacillin Sod/Tazobactam (Sod 3.375 gm/ Sodium Chloride) 50 mls @ 100 mls/hr IV Q6H [facility] Last Infusion: 08/25/21 12:32 Dose: Infused Documented by: Vancomycin HCl 1,500 mg/ (Sodium Chloride) 500 mls @ 333.333 mls/hr IV Q12H [facility] Last Infusion: 08/25/21 09:59 Dose: Infused Documented by: Insulin Glargine (Insulin Glargine,Hum.Rec.Anlog 100 Unit/Ml 10 Ml Vial) 30 unit SUBCUT BEDTIME [facility] Last Admin: 08/24/21 20:13 Dose: 30 unit Documented by: Insulin Human Lispro (Insulin Lispro 100 Unit/Ml 3 Ml Vial) 10 unit SUBCUT BIDAC [facility] Last Admin: 08/25/21 08:23 Dose: 10 unit Documented by: Lisinopril (Lisinopril 10 Mg Tablet) 10 mg PO DAILY [facility]; Protocol Last Admin: 08/25/21 08:29 Dose: 10 mg Documented by: Melatonin (Melatonin 3 Mg Tablet) 6 mg PO BEDTIME PRN PRN Reason: Insomnia Last Admin: 08/21/21 20:26 Dose: 6 mg Documented by: Melatonin (Melatonin 3 Mg Tablet) 6 mg PO BEDTIME [facility] Last Admin: 08/24/21 20:15 Dose: 6 mg Documented by: Metoprolol Succinate (Metoprolol Succinate Er 50 Mg Tab.Er.24h) 50 mg PO DAILY [facility]; Protocol Last Admin: 08/25/21 08:29 Dose: 50 mg Documented by: Oxycodone HCl (Oxycodone Hcl Immed Release 5 Mg Tablet) 10 mg PO Q4H PRN PRN Reason: Pain, Severe (Pain Scale 7-10) Last Admin: 08/25/21 12:01 Dose: 10 mg Documented by: Oxycodone HCl (Oxycodone Hcl Immed Release 5 Mg Tablet) 5 mg PO ONCE PRN PRN Reason: Pain, Severe (Pain Scale 7-10) Pharmacy Consult (Consult Rx Perform Med Rec) 1 each MISCELLANE ONCE PRN PRN Reason: Consult order Pharmacy Consult (Consult Rx Vancomycin Dosing) 1 each MISCELLANE DAILY PRN PRN Reason: Consult order Sodium Chloride (0.9 % Sodium Chloride Flush 3 Ml Syringe) 3 ml IVFLUSH QSHIFT [facility] Last Admin: 08/25/21 08:23 Dose: 3 ml Documented by: Time Spent With Patient Time: Total time spent is greater than 50% in coordination of care (as documented) at patient's floor/unit and/or counseling patient: Time with patient: 15 - 24 minutes Procedures Date of Service Date of Service: 08/25/21 Quality Stroke Does the patient have a stroke diagnosis?: No VTE Prior VTE?: No VTE Risk Level:: Medical - moderate - high VTE Device Contraindication: Treatment Not Indicated VTE Drug Contraindication: N/A - Med Ordered
[2021-08-25 16:35] LABS: Glucose, Whole Blood 137 mg/dL (60-115)
[2021-08-25] MEDS: Acetaminophen 325 MG TABLET 650 MG PO (16:51)
[2021-08-25] MEDS: Enoxaparin Sodium 40 MG/0.4 ML SYRINGE SUBCUT (17:45)
[2021-08-25] MEDS: Atorvastatin Calcium 20 MG TABLET PO (20:07)
[2021-08-25] MEDS: Melatonin 3 MG TABLET 6 MG PO (20:08)
[2021-08-25 20:54] LABS: Glucose, Whole Blood 123 mg/dL (60-115)
[2021-08-26] VITALS (23 sets, daily range): BP systolic 110–186; BP diastolic 69–95; PULSE 78–90; RESP 16–20; TEMP 36.4–37; O2SAT 95–100
[2021-08-26] MEDS: Heparin Sodium,Porcine Flush 50 UNITS, 0.9 % Sodium Chloride Flush 5 ML IVFLUSH ×2 (01:39→17:05)
[2021-08-26] MEDS: HYDROmorphone HCl 2 MG/ML VIAL 1.5 MG IVPUSH ×5 (01:39→20:40)
[2021-08-26] MEDS: 0.9 % Sodium Chloride Flush 3 ML SYRINGE IVFLUSH ×3 (01:41→17:06)
[2021-08-26] MEDS: oxyCODONE HCl Immed Release 5 MG TABLET 10 MG PO (03:45)
[2021-08-26 07:06] LABS: Creatinine Clr Calc Pharmacy 105.2; Estimated Glomerular Filt Rate > 60
[2021-08-26 07:49] LABS: Glucose, Whole Blood 135 mg/dL (60-115)
[2021-08-26 08:04] LABS: Vancomycin Trough 13.3 mcg/mL (10.0-20.0)
[2021-08-26] MEDS: vancomycin HCL 1,500 MG in 0.9 % Sodium Chloride 500 ML 333.33 MG IV ×2 (08:43→20:41)
[2021-08-26] MEDS: amLODIPine Besylate 5 MG TABLET PO (09:39)
[2021-08-26] MEDS: Gabapentin 600 MG TABLET PO ×3 (09:39→20:00)
[2021-08-26] MEDS: Metoprolol Succinate ER 50 MG TAB.ER.24H PO (09:39)
[2021-08-26] MEDS: lisinopriL 10 MG TABLET PO (09:39)
--- NOTE | 2021-08-26 09:40 | P.CONAN_ITS ---
[facility] Active Problems Active Problems: All Active Problems (Updated 08/25/21 @ 00:03 by Lavell Sales) Cellulitis of foot, right (Acute) Acute pain of right foot (Acute) Acute hyperglycemia (Acute) Calculus of distal right ureter (Acute) Plantar fasciitis (Acute) Plantar fasciitis (Acute) Cellulitis of left foot (Acute) Ulcer of left heel (Acute) Diabetic foot ulcer (Acute) Non-healing ulcer of foot (Acute) Intractable heel pain (Acute) Diabetic foot ulcer (Acute) Diabetic foot ulcer (Acute) Intractable left heel pain (Acute) Chronic pancreatitis (Acute) Diabetes mellitus with hyperglycemia, with long-term current use of insulin (Acute) Hx of heart artery stent (Acute) Arthritis (Acute) Increased BMI (Acute) Status post laparoscopic cholecystectomy (Acute) Past Medical History Medical History Alcohol abuse Amputation stump complication Arthritis CAD (coronary artery disease) Chronic pancreatitis Chronic 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 Diabetes mellitus with hyperglycemia, with long-term current use of insulin Essential hypertension Failure of outpatient treatment Hyperlipidemia Increased BMI Intractable left heel pain Kidney calculus Neuropathy PAD (peripheral artery disease) Type 2 diabetes mellitus with diabetic polyneuropathy Type 2 diabetes mellitus with hyperglycemia Family History Family History Mother IA (myocardial infarction), Onset Age: 64 Diabetes mellitus HTN (hypertension) Maternal Grandmother Diabetes mellitus Family history of problems with anesthesia: No Surgical History Surgical History Hx of heart artery stent Hx of lithotripsy S/P debridement Status post laparoscopic cholecystectomy History of Problems with Anesthesia: No Social History Social History Household Members: Spouse Household Members Other:: and daughter Housing: Apartment Do you presently have visiting nurse or other home services: Yes (vna) Alcohol intake: current Alcohol intake frequency: does not drink Patient Tobacco Use Status: Former Tobacco user Quit Date: 3 weeks ago Tobacco use type: Cigarette Cigarette Packs Per Day: 1 Cigarettes Per Day: 20.0 Years Smoked: 28 Second Hand Smoke Exposure: Yes Substance Use Type: Marijuana Advance Directives Date on File: 04/17/21 service: No Current occupational status: unemployed Meds Allergies Allergy/AdvReac Type Severity Reaction Status Date / Time No Known Allergies Allergy Verified 07/29/21 13:22 [No Known Allergies*] Active Medications: Current Medications Acetaminophen (Acetaminophen 325 Mg Tablet) 650 mg PO Q6H PRN PRN Reason: Pain, Mild (Pain Scale 1-3) Last Admin: 08/25/21 16:51 Dose: 650 mg Documented by: Amlodipine Besylate (Amlodipine Besylate 5 Mg Tablet) 5 mg PO DAILY [facility]; Protocol Last Admin: 08/25/21 08:28 Dose: 5 mg Documented by: Aspirin (Aspirin 81 Mg Tab.Chew) 81 mg PO DAILY [facility] Last Admin: 08/25/21 08:28 Dose: 81 mg Documented by: Atorvastatin Calcium (Atorvastatin Calcium 20 Mg Tablet) 20 mg PO BEDTIME [facility] Last Admin: 08/25/21 20:07 Dose: 20 mg Documented by: Clopidogrel Bisulfate (Clopidogrel Bisulfate 75 Mg Tablet) 75 mg PO DAILY [facility] Last Admin: 08/25/21 08:28 Dose: 75 mg Documented by: Heparin Sodium (Porcine) 50 (units/ Sodium Chloride 5 ml) 0 units IVFLUSH QSHIFT [facility] Last Admin: 08/26/21 01:39 Dose: 50 unit Documented by: Enoxaparin Sodium (Enoxaparin Sodium 40 Mg/0.4 Ml Syringe) 40 mg SUBCUT Q24H [facility] Last Admin: 08/25/21 17:45 Dose: 40 mg Documented by: Fentanyl (Fentanyl Citrate/Pf 100 Mcg/2 Ml Vial) 50 mcg IVPUSH Q5M PRN; Protocol PRN Reason: Pain, Severe (Pain Scale 7-10) Last Admin: 08/23/21 10:49 Dose: 50 mcg Documented by: Fentanyl (Fentanyl Citrate/Pf 100 Mcg/2 Ml Vial) 25 mcg IVPUSH Q5M PRN; Protocol PRN Reason: Pain, Moderate (Pain Scale 4-6 Gabapentin (Gabapentin 600 Mg Tablet) 600 mg PO TID [facility] Last Admin: 08/25/21 20:07 Dose: 600 mg Documented by: Hydromorphone HCl (Hydromorphone Hcl 2 Mg/Ml Vial) 1.5 mg IVPUSH Q3H PRN; Protocol PRN Reason: Pain, Severe (Pain Scale 7-10) Last Admin: 08/26/21 06:24 Dose: 1.5 mg Documented by: Vancomycin HCl 1,500 mg/ (Sodium Chloride) 500 mls @ 333.333 mls/hr IV Q12H [facility] Last Admin: 08/26/21 08:43 Dose: 333.33 mls/hr Documented by: Insulin Glargine (Insulin Glargine,Hum.Rec.Anlog 100 Unit/Ml 10 Ml Vial) 30 unit SUBCUT BEDTIME [facility] Last Admin: 08/25/21 21:20 Dose: Not Given Documented by: Insulin Human Lispro (Insulin Lispro 100 Unit/Ml 3 Ml Vial) 10 unit SUBCUT BIDAC [facility] Last Admin: 08/26/21 08:44 Dose: Not Given Documented by: Lisinopril (Lisinopril 10 Mg Tablet) 10 mg PO DAILY [facility]; Protocol Last Admin: 08/25/21 08:29 Dose: 10 mg Documented by: Melatonin (Melatonin 3 Mg Tablet) 6 mg PO BEDTIME PRN PRN Reason: Insomnia Last Admin: 08/21/21 20:26 Dose: 6 mg Documented by: Melatonin (Melatonin 3 Mg Tablet) 6 mg PO BEDTIME [facility] Last Admin: 08/25/21 20:08 Dose: 6 mg Documented by: Metoprolol Succinate (Metoprolol Succinate Er 50 Mg Tab.Er.24h) 50 mg PO DAILY [facility]; Protocol Last Admin: 08/25/21 08:29 Dose: 50 mg Documented by: Oxycodone HCl (Oxycodone Hcl Immed Release 5 Mg Tablet) 10 mg PO Q4H PRN PRN Reason: Pain, Severe (Pain Scale 7-10) Last Admin: 08/26/21 03:45 Dose: 10 mg Documented by: Oxycodone HCl (Oxycodone Hcl Immed Release 5 Mg Tablet) 5 mg PO ONCE PRN PRN Reason: Pain, Severe (Pain Scale 7-10) Pharmacy Consult (Consult Rx Perform Med Rec) 1 each MISCELLANE ONCE PRN PRN Reason: Consult order Sodium Chloride (0.9 % Sodium Chloride Flush 3 Ml Syringe) 3 ml IVFLUSH QSHIFT [facility] Last Admin: 08/26/21 08:45 Dose: 3 ml Documented by: Home Medications Medication Instructions Recorded Confirmed Last Taken Type atorvastatin 20 mg tablet 1 tab PO BEDTIME 03/24/21 08/18/21 08/16/21 History insulin glargine 100 unit/mL (3 30 unit SUBCUT BEDTIME ml 05/06/21 08/18/21 08/16/21 History mL) subcutaneous pen (Lantus Solostar U-100 Insulin) empagliflozin 25 mg tablet 1 tab PO DAILY 08/14/21 08/18/21 08/17/21 History (Jardiance) Exam Exam Date and Time: August 26, 2021 0940 Height,Weight and Vital Signs: Height 5 ft 5 in Weight 81.647 kg Last Vital Signs Temp 98.2 F 08/26/21 08:00 Pulse 85 08/26/21 08:00 Resp 18 08/26/21 03:13 BP 151/72 H 08/26/21 08:00 Pulse Ox 95 08/26/21 08:00 Pertinent Lab Results Pertinent Lab Results: Laboratory Tests 08/18/21 08/18/21 08/18/21 11:06 11:06 11:06 WBC RBC Hgb Hct MCV MCH MCHC RDW Plt Count MPV Immature Gran % (Auto) Neut % (Auto) Lymph % (Auto) Burt % (Auto) Eos % (Auto) Baso % (Auto) Lymph # (Auto) Burt # (Auto) Eos # (Auto) Baso # (Auto) Abs Immat Gran (auto) Absolute Neuts (auto) Absolute Nucleated RBC Nucleated RBC % (auto) ESR 77 H PT 12.9 INR 1.1 APTT 30.2 Sodium Potassium Chloride Carbon Dioxide Anion Gap BUN Creatinine Estim Creat Clear Calc Estimated GFR POC Glucose Random Glucose Lactic Acid Calcium Total Bilirubin AST ALT Alkaline Phosphatase C-Reactive Protein Total Protein Albumin Lipase Vancomycin Trough Random Vancomycin Influenza Type A (PCR) NEGATIVE Influenza Type B (PCR) NEGATIVE RSV RNA Qual (PCR) NEGATIVE SARS-CoV-2 RNA (RT-PCR) NEGATIVE 08/18/21 08/18/21 08/18/21 11:06 11:07 11:07 WBC 11.7 H RBC 5.01 Hgb 12.9 L Hct 40.7 L MCV 81.2 MCH 25.7 L MCHC 31.7 RDW 14.7 Plt Count 268 MPV 10.4 Immature Gran % (Auto) 0.4 Neut % (Auto) 71.5 Lymph % (Auto) 12.2 L Burt % (Auto) 12.5 H Eos % (Auto) 3.1 Baso % (Auto) 0.3 Lymph # (Auto) 1.4 Burt # (Auto) 1.5 H Eos # (Auto) 0.4 Baso # (Auto) 0.0 Abs Immat Gran (auto) 0.05 H Absolute Neuts (auto) 8.3 Absolute Nucleated RBC 0.000 Nucleated RBC % (auto) 0.0 ESR PT INR APTT Sodium 137 Potassium 4.0 Chloride 101 Carbon Dioxide 26 Anion Gap 14 BUN 14 Creatinine 0.89 Estim Creat Clear Calc 92.2 Estimated GFR > 60 POC Glucose Random Glucose 241 H D Lactic Acid 1.2 Calcium 9.3 Total Bilirubin 0.4 AST 16 ALT 19 Alkaline Phosphatase 83 C-Reactive Protein 13.99 H Total Protein 7.6 Albumin 3.6 Lipase 16 Vancomycin Trough Random Vancomycin Influenza Type A (PCR) Influenza Type B (PCR) RSV RNA Qual (PCR) SARS-CoV-2 RNA (RT-PCR) 08/18/21 08/18/21 08/19/21 17:51 20:50 03:56 WBC RBC Hgb Hct MCV MCH MCHC RDW Plt Count MPV Immature Gran % (Auto) Neut % (Auto) Lymph % (Auto) Burt % (Auto) Eos % (Auto) Baso % (Auto) Lymph # (Auto) Burt # (Auto) Eos # (Auto) Baso # (Auto) Abs Immat Gran (auto) Absolute Neuts (auto) Absolute Nucleated RBC Nucleated RBC % (auto) ESR PT INR APTT Sodium Potassium Chloride Carbon Dioxide Anion Gap BUN Creatinine Estim Creat Clear Calc Estimated GFR POC Glucose 127 H 205 H 144 H Random Glucose Lactic Acid Calcium Total Bilirubin AST ALT Alkaline Phosphatase C-Reactive Protein Total Protein Albumin Lipase Vancomycin Trough Random Vancomycin Influenza Type A (PCR) Influenza Type B (PCR) RSV RNA Qual (PCR) SARS-CoV-2 RNA (RT-PCR) 08/19/21 08/19/21 08/19/21 07:23 07:54 11:07 WBC RBC Hgb Hct MCV MCH MCHC RDW Plt Count MPV Immature Gran % (Auto) Neut % (Auto) Lymph % (Auto) Burt % (Auto) Eos % (Auto) Baso % (Auto) Lymph # (Auto) Burt # (Auto) Eos # (Auto) Baso # (Auto) Abs Immat Gran (auto) Absolute Neuts (auto) Absolute Nucleated RBC Nucleated RBC % (auto) ESR PT INR APTT Sodium 135 Potassium 3.9 Chloride 101 Carbon Dioxide 27 Anion Gap 11 L BUN 11 Creatinine 0.78 Estim Creat Clear Calc 105.2 Estimated GFR > 60 POC Glucose 136 H 171 H Random Glucose 134 H D Lactic Acid Calcium 9.1 Total Bilirubin AST ALT Alkaline Phosphatase C-Reactive Protein Total Protein Albumin Lipase Vancomycin Trough Random Vancomycin Influenza Type A (PCR) Influenza Type B (PCR) RSV RNA Qual (PCR) SARS-CoV-2 RNA (RT-PCR) 08/19/21 08/19/21 08/19/21 16:04 20:27 22:04 WBC RBC Hgb Hct MCV MCH MCHC RDW Plt Count MPV Immature Gran % (Auto) Neut % (Auto) Lymph % (Auto) Burt % (Auto) Eos % (Auto) Baso % (Auto) Lymph # (Auto) Burt # (Auto) Eos # (Auto) Baso # (Auto) Abs Immat Gran (auto) Absolute Neuts (auto) Absolute Nucleated RBC Nucleated RBC % (auto) ESR PT INR APTT Sodium Potassium Chloride Carbon Dioxide Anion Gap BUN Creatinine Estim Creat Clear Calc Estimated GFR POC Glucose 249 H 210 H Random Glucose Lactic Acid Calcium Total Bilirubin AST ALT Alkaline Phosphatase C-Reactive Protein Total Protein Albumin Lipase Vancomycin Trough 11.4 Random Vancomycin Influenza Type A (PCR) Influenza Type B (PCR) RSV RNA Qual (PCR) SARS-CoV-2 RNA (RT-PCR) 08/20/21 08/20/21 08/20/21 05:24 07:46 11:32 WBC RBC Hgb Hct MCV MCH MCHC RDW Plt Count MPV Immature Gran % (Auto) Neut % (Auto) Lymph % (Auto) Burt % (Auto) Eos % (Auto) Baso % (Auto) Lymph # (Auto) Burt # (Auto) Eos # (Auto) Baso # (Auto) Abs Immat Gran (auto) Absolute Neuts (auto) Absolute Nucleated RBC Nucleated RBC % (auto) ESR PT INR APTT Sodium 136 Potassium 4.2 Chloride 102 Carbon Dioxide 25 Anion Gap 13 BUN 12 Creatinine 0.81 Estim Creat Clear Calc 101.3 Estimated GFR > 60 POC Glucose 111 113 Random Glucose 137 H Lactic Acid Calcium 9.1 Total Bilirubin AST ALT Alkaline Phosphatase C-Reactive Protein Total Protein Albumin Lipase Vancomycin Trough Random Vancomycin Influenza Type A (PCR) Influenza Type B (PCR) RSV RNA Qual (PCR) SARS-CoV-2 RNA (RT-PCR) 08/20/21 08/20/21 08/21/21 16:37 20:26 06:16 WBC 11.7 H RBC 4.80 Hgb 12.3 L Hct 38.9 L MCV 81.0 MCH 25.6 L MCHC 31.6 RDW 14.6 Plt Count 283 MPV 10.3 Immature Gran % (Auto) Neut % (Auto) Lymph % (Auto) Burt % (Auto) Eos % (Auto) Baso % (Auto) Lymph # (Auto) Burt # (Auto) Eos # (Auto) Baso # (Auto) Abs Immat Gran (auto) Absolute Neuts (auto) Absolute Nucleated RBC 0.000 Nucleated RBC % (auto) 0.0 ESR PT INR APTT Sodium Potassium Chloride Carbon Dioxide Anion Gap BUN Creatinine Estim Creat Clear Calc Estimated GFR POC Glucose 188 H 148 H Random Glucose Lactic Acid Calcium Total Bilirubin AST ALT Alkaline Phosphatase C-Reactive Protein Total Protein Albumin Lipase Vancomycin Trough Random Vancomycin Influenza Type A (PCR) Influenza Type B (PCR) RSV RNA Qual (PCR) SARS-CoV-2 RNA (RT-PCR) 08/21/21 08/21/21 08/21/21 07:05 07:37 10:05 WBC RBC Hgb Hct MCV MCH MCHC RDW Plt Count MPV Immature Gran % (Auto) Neut % (Auto) Lymph % (Auto) Burt % (Auto) Eos % (Auto) Baso % (Auto) Lymph # (Auto) Burt # (Auto) Eos # (Auto) Baso # (Auto) Abs Immat Gran (auto) Absolute Neuts (auto) Absolute Nucleated RBC Nucleated RBC % (auto) ESR PT INR APTT Sodium Potassium Chloride Carbon Dioxide Anion Gap BUN Creatinine 0.78 Estim Creat Clear Calc 105.2 Estimated GFR > 60 POC Glucose 122 H Random Glucose Lactic Acid Calcium Total Bilirubin AST ALT Alkaline Phosphatase C-Reactive Protein Total Protein Albumin Lipase Vancomycin Trough 12.8 Random Vancomycin Influenza Type A (PCR) Influenza Type B (PCR) RSV RNA Qual (PCR) SARS-CoV-2 RNA (RT-PCR) 08/21/21 08/21/21 08/21/21 11:12 15:51 19:22 WBC RBC Hgb Hct MCV MCH MCHC RDW Plt Count MPV Immature Gran % (Auto) Neut % (Auto) Lymph % (Auto) Burt % (Auto) Eos % (Auto) Baso % (Auto) Lymph # (Auto) Burt # (Auto) Eos # (Auto) Baso # (Auto) Abs Immat Gran (auto) Absolute Neuts (auto) Absolute Nucleated RBC Nucleated RBC % (auto) ESR PT INR APTT Sodium Potassium Chloride Carbon Dioxide Anion Gap BUN Creatinine Estim Creat Clear Calc Estimated GFR POC Glucose 83 200 H 97 Random Glucose Lactic Acid Calcium Total Bilirubin AST ALT Alkaline Phosphatase C-Reactive Protein Total Protein Albumin Lipase Vancomycin Trough Random Vancomycin Influenza Type A (PCR) Influenza Type B (PCR) RSV RNA Qual (PCR) SARS-CoV-2 RNA (RT-PCR) 08/21/21 08/22/21 08/22/21 23:35 06:26 06:36 WBC RBC Hgb Hct MCV MCH MCHC RDW Plt Count MPV Immature Gran % (Auto) Neut % (Auto) Lymph % (Auto) Burt % (Auto) Eos % (Auto) Baso % (Auto) Lymph # (Auto) Burt # (Auto) Eos # (Auto) Baso # (Auto) Abs Immat Gran (auto) Absolute Neuts (auto) Absolute Nucleated RBC Nucleated RBC % (auto) ESR PT INR APTT Sodium Potassium Chloride Carbon Dioxide Anion Gap BUN Creatinine 0.78 Estim Creat Clear Calc 105.2 Estimated GFR > 60 POC Glucose 113 114 Random Glucose Lactic Acid Calcium Total Bilirubin AST ALT Alkaline Phosphatase C-Reactive Protein Total Protein Albumin Lipase Vancomycin Trough Random Vancomycin Influenza Type A (PCR) Influenza Type B (PCR) RSV RNA Qual (PCR) SARS-CoV-2 RNA (RT-PCR) 08/22/21 08/22/21 08/22/21 11:45 16:26 19:26 WBC RBC Hgb Hct MCV MCH MCHC RDW Plt Count MPV Immature Gran % (Auto) Neut % (Auto) Lymph % (Auto) Burt % (Auto) Eos % (Auto) Baso % (Auto) Lymph # (Auto) Burt # (Auto) Eos # (Auto) Baso # (Auto) Abs Immat Gran (auto) Absolute Neuts (auto) Absolute Nucleated RBC Nucleated RBC % (auto) ESR PT INR APTT Sodium Potassium Chloride Carbon Dioxide Anion Gap BUN Creatinine Estim Creat Clear Calc Estimated GFR POC Glucose 110 203 H 109 Random Glucose Lactic Acid Calcium Total Bilirubin AST ALT Alkaline Phosphatase C-Reactive Protein Total Protein Albumin Lipase Vancomycin Trough Random Vancomycin Influenza Type A (PCR) Influenza Type B (PCR) RSV RNA Qual (PCR) SARS-CoV-2 RNA (RT-PCR) 08/22/21 08/23/21 08/23/21 21:42 05:47 05:47 WBC 12.5 H RBC 5.13 Hgb 13.2 L Hct 42.1 MCV 82.1 MCH 25.7 L MCHC 31.4 RDW 14.8 Plt Count 334 MPV 10.1 Immature Gran % (Auto) Neut % (Auto) Lymph % (Auto) Burt % (Auto) Eos % (Auto) Baso % (Auto) Lymph # (Auto) Burt # (Auto) Eos # (Auto) Baso # (Auto) Abs Immat Gran (auto) Absolute Neuts (auto) Absolute Nucleated RBC 0.000 Nucleated RBC % (auto) 0.0 ESR PT INR APTT Sodium 138 Potassium 4.4 Chloride 101 Carbon Dioxide 28 Anion Gap 13 BUN 15 Creatinine 0.92 Estim Creat Clear Calc 89.2 Estimated GFR > 60 POC Glucose Random Glucose 110 Lactic Acid Calcium 9.5 Total Bilirubin AST ALT Alkaline Phosphatase C-Reactive Protein Total Protein Albumin Lipase Vancomycin Trough 31.0 H* Random Vancomycin Influenza Type A (PCR) Influenza Type B (PCR) RSV RNA Qual (PCR) SARS-CoV-2 RNA (RT-PCR) 08/23/21 08/23/21 08/23/21 05:47 07:23 11:27 WBC RBC Hgb Hct MCV MCH MCHC RDW Plt Count MPV Immature Gran % (Auto) Neut % (Auto) Lymph % (Auto) Burt % (Auto) Eos % (Auto) Baso % (Auto) Lymph # (Auto) Burt # (Auto) Eos # (Auto) Baso # (Auto) Abs Immat Gran (auto) Absolute Neuts (auto) Absolute Nucleated RBC Nucleated RBC % (auto) ESR PT INR APTT Sodium Potassium Chloride Carbon Dioxide Anion Gap BUN Creatinine Estim Creat Clear Calc Estimated GFR POC Glucose 122 H 74 Random Glucose Lactic Acid Calcium Total Bilirubin AST ALT Alkaline Phosphatase C-Reactive Protein Total Protein Albumin Lipase Vancomycin Trough Random Vancomycin 10.6 L Influenza Type A (PCR) Influenza Type B (PCR) RSV RNA Qual (PCR) SARS-CoV-2 RNA (RT-PCR) 08/23/21 08/23/21 08/24/21 16:10 19:42 05:22 WBC RBC Hgb Hct MCV MCH MCHC RDW Plt Count MPV Immature Gran % (Auto) Neut % (Auto) Lymph % (Auto) Burt % (Auto) Eos % (Auto) Baso % (Auto) Lymph # (Auto) Burt # (Auto) Eos # (Auto) Baso # (Auto) Abs Immat Gran (auto) Absolute Neuts (auto) Absolute Nucleated RBC Nucleated RBC % (auto) ESR PT INR APTT Sodium 135 Potassium 3.9 Chloride 100 Carbon Dioxide 28 Anion Gap 11 L BUN 14 Creatinine 0.83 Estim Creat Clear Calc 98.9 Estimated GFR > 60 POC Glucose 165 H 131 H Random Glucose 92 Lactic Acid Calcium 8.6 D Total Bilirubin AST ALT Alkaline Phosphatase C-Reactive Protein Total Protein Albumin Lipase Vancomycin Trough Random Vancomycin Influenza Type A (PCR) Influenza Type B (PCR) RSV RNA Qual (PCR) SARS-CoV-2 RNA (RT-PCR) 08/24/21 08/24/21 08/24/21 05:22 07:37 11:15 WBC 12.4 H RBC 4.74 Hgb 12.3 L Hct 38.6 L MCV 81.4 MCH 25.9 L MCHC 31.9 RDW 15.1 Plt Count 329 MPV 10.0 Immature Gran % (Auto) Neut % (Auto) Lymph % (Auto) Burt % (Auto) Eos % (Auto) Baso % (Auto) Lymph # (Auto) Burt # (Auto) Eos # (Auto) Baso # (Auto) Abs Immat Gran (auto) Absolute Neuts (auto) Absolute Nucleated RBC 0.000 Nucleated RBC % (auto) 0.0 ESR PT INR APTT Sodium Potassium Chloride Carbon Dioxide Anion Gap BUN Creatinine Estim Creat Clear Calc Estimated GFR POC Glucose 98 113 Random Glucose Lactic Acid Calcium Total Bilirubin AST ALT Alkaline Phosphatase C-Reactive Protein Total Protein Albumin Lipase Vancomycin Trough Random Vancomycin Influenza Type A (PCR) Influenza Type B (PCR) RSV RNA Qual (PCR) SARS-CoV-2 RNA (RT-PCR) 08/24/21 08/24/21 08/24/21 16:20 18:07 19:29 WBC RBC Hgb Hct MCV MCH MCHC RDW Plt Count MPV Immature Gran % (Auto) Neut % (Auto) Lymph % (Auto) Burt % (Auto) Eos % (Auto) Baso % (Auto) Lymph # (Auto) Burt # (Auto) Eos # (Auto) Baso # (Auto) Abs Immat Gran (auto) Absolute Neuts (auto) Absolute Nucleated RBC Nucleated RBC % (auto) ESR PT INR APTT Sodium Potassium Chloride Carbon Dioxide Anion Gap BUN Creatinine Estim Creat Clear Calc Estimated GFR POC Glucose 149 H 164 H Random Glucose Lactic Acid Calcium Total Bilirubin AST ALT Alkaline Phosphatase C-Reactive Protein Total Protein Albumin Lipase Vancomycin Trough 14.3 Random Vancomycin Influenza Type A (PCR) Influenza Type B (PCR) RSV RNA Qual (PCR) SARS-CoV-2 RNA (RT-PCR) 08/25/21 08/25/21 08/25/21 05:34 07:49 11:28 WBC RBC Hgb Hct MCV MCH MCHC RDW Plt Count MPV Immature Gran % (Auto) Neut % (Auto) Lymph % (Auto) Burt % (Auto) Eos % (Auto) Baso % (Auto) Lymph # (Auto) Burt # (Auto) Eos # (Auto) Baso # (Auto) Abs Immat Gran (auto) Absolute Neuts (auto) Absolute Nucleated RBC Nucleated RBC % (auto) ESR PT INR APTT Sodium Potassium Chloride Carbon Dioxide Anion Gap BUN Creatinine 0.82 Estim Creat Clear Calc 100.1 Estimated GFR > 60 POC Glucose 135 H 123 H Random Glucose Lactic Acid Calcium Total Bilirubin AST ALT Alkaline Phosphatase C-Reactive Protein Total Protein Albumin Lipase Vancomycin Trough Random Vancomycin Influenza Type A (PCR) Influenza Type B (PCR) RSV RNA Qual (PCR) SARS-CoV-2 RNA (RT-PCR) 08/25/21 08/25/21 08/26/21 16:26 20:47 06:23 WBC RBC Hgb Hct MCV MCH MCHC RDW Plt Count MPV Immature Gran % (Auto) Neut % (Auto) Lymph % (Auto) Burt % (Auto) Eos % (Auto) Baso % (Auto) Lymph # (Auto) Burt # (Auto) Eos # (Auto) Baso # (Auto) Abs Immat Gran (auto) Absolute Neuts (auto) Absolute Nucleated RBC Nucleated RBC % (auto) ESR PT INR APTT Sodium Potassium Chloride Carbon Dioxide Anion Gap BUN Creatinine 0.78 Estim Creat Clear Calc 105.2 Estimated GFR > 60 POC Glucose 137 H 123 H Random Glucose Lactic Acid Calcium Total Bilirubin AST ALT Alkaline Phosphatase C-Reactive Protein Total Protein Albumin Lipase Vancomycin Trough Random Vancomycin Influenza Type A (PCR) Influenza Type B (PCR) RSV RNA Qual (PCR) SARS-CoV-2 RNA (RT-PCR) 08/26/21 08/26/21 06:23 07:28 WBC RBC Hgb Hct MCV MCH MCHC RDW Plt Count MPV Immature Gran % (Auto) Neut % (Auto) Lymph % (Auto) Burt % (Auto) Eos % (Auto) Baso % (Auto) Lymph # (Auto) Burt # (Auto) Eos # (Auto) Baso # (Auto) Abs Immat Gran (auto) Absolute Neuts (auto) Absolute Nucleated RBC Nucleated RBC % (auto) ESR PT INR APTT Sodium Potassium Chloride Carbon Dioxide Anion Gap BUN Creatinine Estim Creat Clear Calc Estimated GFR POC Glucose 135 H Random Glucose Lactic Acid Calcium Total Bilirubin AST ALT Alkaline Phosphatase C-Reactive Protein Total Protein Albumin Lipase Vancomycin Trough 13.3 Random Vancomycin Influenza Type A (PCR) Influenza Type B (PCR) RSV RNA Qual (PCR) SARS-CoV-2 RNA (RT-PCR) Airway Mallampati Class: III (edentulous, full neck) TM Dist: >3cm Neck ROM: Full Loose/Missing/Broken Teeth: Yes, Upper and Lower Heart: RRR Lungs: CTA Assessment and Plan Assessment Anesthesia Assessment: Anesthesia Plan Discussed Final Anesthetic Review Family History of Problems with Anesthesia: No History of Problems with Anesthesia: No NPO: Yes ASA Class: III Final Preanesthetic Review: Meds/Allgs Chart Reviewed, Consent Obtained/Reviewed and Anes Risks/Benef Reviewed Patient Risk: Intermediate Procedure Risk: Low Anesthetic Plan Anesthetic Plan: GA Disposition: Standard PACU
[2021-08-26 09:49] LABS: Glucose, Whole Blood 114 mg/dL (60-115)
[2021-08-26] MEDS: fentaNYL citrate/PF 100 MCG/2 ML VIAL 50 MCG IVPUSH ×2 (11:18→11:36)
[2021-08-26] MEDS: HYDROmorphone HCl 0.5 MG/0.5 ML SYRINGE IVPUSH ×3 (11:48→12:15)
--- NOTE | 2021-08-26 12:11 | MHC.SHP ---
Pre-Procedural Eval Section A Date of Service: 08/26/21 The patient is an INPATIENT: Yes The History & Physical has been completed within 30 days and I have reviewed it.: Yes Section B Chief Complaint: cellulitis of the foot Allergies: Allergies Allergy/AdvReac Type Severity Reaction Status Date / Time No Known Allergies Allergy Verified 07/29/21 13:22 [No Known Allergies*] Plan I have reviewed the history and physical and performed a pertinent physical examination on my patient. No changes have occurred unless specified.
--- NOTE | 2021-08-26 12:16 | P.OP_ITS ---
Operative Note Operative Note Date of Service: 08/26/21 Narrative: Operative note by [facility] Preoperative diagnosis: Nonhealing right great toe amputation site Postoperative diagnosis: Nonhealing right great toe amputation site Procedure: Right great toe ray amputation Surgeon:Berto Sheppard M.D. [employer] Operator: None Anesthesia: General Specimens: 1 - deep cultures Drains: None Estimated blood loss: Minimal Indications: 56-year-old gentleman with prior history right great toe amputation down to the metatarsal and subsequent debridement presents for nonhealing amputation test site. He is now in requirement of right great toe ray amputation The patient has signed the informed consent after reviewing risks, complications, benefits, and alternatives previously discussed with the patient. The patient was given the opportunity to ask any additional questions or voice any concerns. All questions were answered to the patient's satisfaction. Procedure in detail: Patient was brought to the operating room prior to which a time-out was called for patient identification site verification. Right foot was prepped and draped in standard surgical fashion. [place] incision was carried out over the prior right great toe amputation we brought this down beyond the metatarsal head. We dissected around and all the necrotic nonviable infected tissue was removed in its entirety. We got down below the base of the metatarsal and using a power saw them we transected the metatarsal. We removed that specimen of bone. Deep cultures were then undertaken. We irrigated this wound out thoroughly. Using a rasp we filed down the free bony edge. Once this was accomplished we then reapproximated down the deep Eulogio with a 2 0 poly Sorb superficial layer with a interrupted 3-0 nylon in a mattress fashion and finally skin clips. Xeroform and a sterile dressing were applied. At the end the case sponge instrument counts were correct. Patient tolerated the procedure well. Returned to recovery with stable vitals. This note is constructed using voice recognition software. While every effort has been made to ensure accuracy, road tester errors may have been included. Thank you for allowing me to participate in the care of your patient. Yours sincerely, Berto Sheppard MD, FACS, R.P.V.I.
[2021-08-26] MEDS: HYDROmorphone HCl 0.5 MG/0.5 ML SYRINGE 0.25 MG IVPUSH (12:32)
--- NOTE | 2021-08-26 12:51 | HO.PM.IMPN ---
Subjective Subjective Date of Service: 08/26/21 Interval History: Seen and examined this morning Follow-up for nonhealing amputation site of recent right great toe amputation Plan for further surgery today Continues to have right foot pain Review of Systems Review of Systems: Yes all other systems are reviewed and are negative Constitutional Constitutional: Denies chills and Denies fever(s) Cardiovascular Cardiovascular: Denies chest pain Respiratory Respiratory: Denies cough Gastrointestinal Gastrointestinal: Denies abdominal pain Physical Exam Vital Signs: Vital Signs: Last Vital Signs Temp 97.8 F 08/26/21 11:07 Pulse 87 08/26/21 12:46 Resp 18 08/26/21 12:46 BP 138/70 08/26/21 12:46 Pulse Ox 96 08/26/21 12:46 BMI result Body Mass Index 29.9 Const: Nutritional Appearance: well nourished Orientation/consciousness: patient oriented x3 HENMT: Head: Yes normocephalic and Yes atraumatic Eyes: Sclerae: sclerae normal Resp: Effort & Inspection: normal respiratory effort and no respiratory distress Cardio: Rate: regular rate Rhythm: regular rhythm GI: Palpation (GI): Soft to palpation and nontender Neuro: General: patient oriented x3 Cranial nerves: Yes CN's II-XII intact bilaterally and Yes Bilaterally intact EOM present Extrem: Other: s/p right great toe amputation, erythema around amputation site, right foot swelling Objective Data Active Medications Acetaminophen (Acetaminophen 325 Mg Tablet) 650 mg PO Q6H PRN PRN Reason: Pain, Mild (Pain Scale 1-3) Last Admin: 08/25/21 16:51 Dose: 650 mg Documented by: MARYCRUZ Albuterol Sulfate (Albuterol Sulfate (0.083%) 2.5 Mg/3 Ml Vial.Neb) 2.5 mg INHALE ONCE PRN PRN Reason: Wheezing Amlodipine Besylate (Amlodipine Besylate 5 Mg Tablet) 5 mg PO DAILY [facility]; Protocol Last Admin: 08/26/21 09:39 Dose: 5 mg Documented by: LAURYN Aspirin (Aspirin 81 Mg Tab.Chew) 81 mg PO DAILY [facility] Last Admin: 08/25/21 08:28 Dose: 81 mg Documented by: MARYCRUZ Atorvastatin Calcium (Atorvastatin Calcium 20 Mg Tablet) 20 mg PO BEDTIME [facility] Last Admin: 08/25/21 20:07 Dose: 20 mg Documented by: KATINA Clopidogrel Bisulfate (Clopidogrel Bisulfate 75 Mg Tablet) 75 mg PO DAILY [facility] Last Admin: 08/25/21 08:28 Dose: 75 mg Documented by: MARYCRUZ Heparin Sodium (Porcine) 50 (units/ Sodium Chloride 5 ml) 0 units IVFLUSH QSHIFT [facility] Last Admin: 08/26/21 01:39 Dose: 50 unit Documented by: KATINA Enoxaparin Sodium (Enoxaparin Sodium 40 Mg/0.4 Ml Syringe) 40 mg SUBCUT Q24H [facility] Last Admin: 08/25/21 17:45 Dose: 40 mg Documented by: MARYCRUZ Fentanyl (Fentanyl Citrate/Pf 100 Mcg/2 Ml Vial) 50 mcg IVPUSH Q5M PRN; Protocol PRN Reason: Pain, Severe (Pain Scale 7-10) Last Admin: 08/23/21 10:49 Dose: 50 mcg Documented by: ZARA Fentanyl (Fentanyl Citrate/Pf 100 Mcg/2 Ml Vial) 25 mcg IVPUSH Q5M PRN; Protocol PRN Reason: Pain, Moderate (Pain Scale 4-6 Fentanyl (Fentanyl Citrate/Pf 100 Mcg/2 Ml Vial) 50 mcg IVPUSH Q5M PRN; Protocol PRN Reason: Pain, Severe (Pain Scale 7-10) Last Admin: 08/26/21 11:36 Dose: 50 mcg Documented by: PATO Fentanyl (Fentanyl Citrate/Pf 100 Mcg/2 Ml Vial) 25 mcg IVPUSH Q5M PRN; Protocol PRN Reason: Pain, Moderate (Pain Scale 4-6 Gabapentin (Gabapentin 600 Mg Tablet) 600 mg PO TID [facility] Last Admin: 08/26/21 09:39 Dose: 600 mg Documented by: LAURYN Hydromorphone HCl (Hydromorphone Hcl 2 Mg/Ml Vial) 1.5 mg IVPUSH Q3H PRN; Protocol PRN Reason: Pain, Severe (Pain Scale 7-10) Last Admin: 08/26/21 06:24 Dose: 1.5 mg Documented by: KATINA Hydromorphone HCl (Hydromorphone Hcl 0.5 Mg/0.5 Ml Syringe) 0.5 mg IVPUSH Q5M PRN; Protocol PRN Reason: Pain, Severe (Pain Scale 7-10) Last Admin: 08/26/21 12:15 Dose: 0.5 mg Documented by: PATO Hydromorphone HCl (Hydromorphone Hcl 0.5 Mg/0.5 Ml Syringe) 0.25 mg IVPUSH Q5M PRN; Protocol PRN Reason: Pain, Severe (Pain Scale 7-10) Last Admin: 08/26/21 12:32 Dose: 0.25 mg Documented by: PATO Vancomycin HCl 1,500 mg/ (Sodium Chloride) 500 mls @ 333.333 mls/hr IV Q12H [facility] Last Admin: 08/26/21 08:43 Dose: 333.33 mls/hr Documented by: LAURYN Insulin Glargine (Insulin Glargine,Hum.Rec.Anlog 100 Unit/Ml 10 Ml Vial) 30 unit SUBCUT BEDTIME [facility] Last Admin: 08/25/21 21:20 Dose: Not Given Documented by: KATINA Non-Admin Reason: Patient Refused Insulin Human Lispro (Insulin Lispro 100 Unit/Ml 3 Ml Vial) 10 unit SUBCUT BIDAC [facility] Last Admin: 08/26/21 08:44 Dose: Not Given Documented by: LAURYN Non-Admin Reason: NPO Lisinopril (Lisinopril 10 Mg Tablet) 10 mg PO DAILY [facility]; Protocol Last Admin: 08/26/21 09:39 Dose: 10 mg Documented by: LAURYN Melatonin (Melatonin 3 Mg Tablet) 6 mg PO BEDTIME PRN PRN Reason: Insomnia Last Admin: 08/21/21 20:26 Dose: 6 mg Documented by: GABBY Melatonin (Melatonin 3 Mg Tablet) 6 mg PO BEDTIME [facility] Last Admin: 08/25/21 20:08 Dose: 6 mg Documented by: KATINA Metoprolol Succinate (Metoprolol Succinate Er 50 Mg Tab.Er.24h) 50 mg PO DAILY [facility]; Protocol Last Admin: 08/26/21 09:39 Dose: 50 mg Documented by: LAURYN Ondansetron HCl (Ondansetron Hcl 4 Mg/2 Ml Vial) 4 mg IVPUSH ONCE PRN PRN Reason: Nausea and Vomiting Oxycodone HCl (Oxycodone Hcl Immed Release 5 Mg Tablet) 5 mg PO ONCE PRN PRN Reason: Pain, Severe (Pain Scale 7-10) Oxycodone HCl (Oxycodone Hcl Immed Release 5 Mg Tablet) 10 mg PO ONCE PRN PRN Reason: Pain, Severe (Pain Scale 7-10) Oxycodone HCl (Oxycodone Hcl Immed Release 5 Mg Tablet) 5 mg PO ONCE PRN PRN Reason: Pain, Severe (Pain Scale 7-10) Pharmacy Consult (Consult Rx Perform Med Rec) 1 each MISCELLANE ONCE PRN PRN Reason: Consult order Sodium Chloride (0.9 % Sodium Chloride Flush 3 [facility]l [facility]) [facility] Admin: 08/26/21 08:45 Dose: 3 ml Documented by: LAURYN Labs CBC & Chem 7: 08/24/21 05:22 08/26/21 06:23 Labs: Laboratory Results - last 24 hr 08/25/21 08/25/21 08/26/21 16:26 20:47 06:23 Estim Creat Clear Calc 105.2 Estimated GFR > 60 POC Glucose 137 H 123 H Vancomycin Trough 08/26/21 08/26/21 08/26/21 06:23 07:28 09:44 Estim Creat Clear Calc Estimated GFR POC Glucose 135 H 114 Vancomycin Trough 13.3 Microbiology Microbiology Results: Microbiology 08/23/21 Unknown Gram Stain - Final Foot Right Routine Culture - Final Citrobacter freundii Assessment and Plan (1) Cellulitis of foot, right: Status: Acute Assessment and Plan: 56 year old man with diabetes here with post amputation of right big toe site cellulitis Cellulitis of right great toe amputation site/diabetic foot infection s/p right great toe amputation 08/09, excisional debridement 08/23, plan for further surgical intervention today wound culture from 08/23 growing citrobacter freundii continue IV Vanco and Zosyn for now ID initially recommended 6 weeks of IV Abx (Ertapenem) at discharge, will re-eval based on outcome of surgery today vascular surgery following 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 Elevated continue metoprolol, Lisinopril, norvasc DM2 continue Lantus and humalog neuropathy continue gabapentin DVT prophylaxis with Lovenox Attending Dr. Baig Quality Stroke Does the patient have a stroke diagnosis?: No VTE Prior VTE?: No VTE Risk Level:: Medical - moderate - high VTE Device Contraindication: Treatment Not Indicated VTE Drug Contraindication: N/A - Med Ordered
--- NOTE | 2021-08-26 13:32 | PC.NURSE ---
vanco finshed in PACU, PICC line flushed with normal saline.
[2021-08-26] MEDS: Piperacillin Sodium/Tazobactam 3.375 GM in 0.9 % Sodium Chloride 50 ML IV ×2 (14:20→20:00)
--- NOTE | 2021-08-26 14:28 | MHC.CM.PN ---
PT REPORTS HE FEELS HE WILL NEED STR AT DC REFERRALS PLACED [facility] ARE FOLLOWING [facility] IS OFFERING PENDING BED AVAILABILITY/AUTH/NEGATIVE PCR COVID TEST
[2021-08-26] MEDS: Aspirin 81 MG TAB.CHEW PO (14:46)
[2021-08-26] MEDS: Clopidogrel Bisulfate 75 MG TABLET PO (14:46)
[2021-08-26 15:46] LABS: Glucose, Whole Blood 170 mg/dL (60-115)
[2021-08-26] MEDS: Insulin Lispro 100 UNIT/ML 3 ML VIAL 10 UNIT SUBCUT (16:59)
[2021-08-26] MEDS: Enoxaparin Sodium 40 MG/0.4 ML SYRINGE SUBCUT (17:00)
[2021-08-26] MEDS: Atorvastatin Calcium 20 MG TABLET PO (20:00)
[2021-08-26] MEDS: Melatonin 3 MG TABLET 6 MG PO (20:00)
[2021-08-26 22:46] LABS: Glucose, Whole Blood 140 mg/dL (60-115)
[2021-08-27] VITALS: BP 162/77; PULSE 85; RESP 18; TEMP 36.9; O2SAT 95
[2021-08-27] MEDS: HYDROmorphone HCl 2 MG/ML VIAL 1.5 MG IVPUSH ×7 (00:51→21:26)
[2021-08-27] MEDS: Heparin Sodium,Porcine Flush 50 UNITS, 0.9 % Sodium Chloride Flush 5 ML IVFLUSH ×3 (00:52→17:23)
[2021-08-27] MEDS: 0.9 % Sodium Chloride Flush 3 ML SYRINGE IVFLUSH ×4 (00:56→21:11)
[2021-08-27] MEDS: Piperacillin Sodium/Tazobactam 3.375 GM in 0.9 % Sodium Chloride 50 ML IV ×4 (01:15→21:05)
[2021-08-27 06:24] LABS: MANUAL DIFF FLAG NO
[2021-08-27 06:39] LABS: Basophils Percent Auto 0.3 % (0-2); Eosinophils Absolute Auto 0.2 X10*3/uL (0.0-0.4); Eosinophils Percent Auto 1.5 % (0-4); Hematocrit 34.8 % (42.0-52.0); Hemoglobin 10.9 g/dl (14.0-18.0); Imm Gran Abs Auto 0.15 X10*3/uL (0.00-0.03); Lymphocytes Percent Auto 13.7 % (20-40); Mean Corpuscular HGB Conc 31.3 g/dl (31.0-36.0); Mean Corpuscular Hemoglobin 25.4 pg (27.0-33.0); Mean Corpuscular Volume 81.1 fL (80.0-98.0); Mean Platelet Volume 9.9 fL (9.4-12.4); Monocytes Absolute Auto 1.4 X10*3/uL (0.1-1.2); Monocytes Percent Auto 9.8 % (2-11); Neutrophils Absolute Auto 10.8 x10*3/uL (2.0-8.3); Neutrophils Percent Auto 73.7 % (45-73); Platelet Count 367 X10*3/uL (160-400); Red Blood Count 4.29 X10*6/uL (4.60-5.80); Red Cell Distribution Width 15.3 % (11.0-16.0); White Blood Count 14.6 X10*3/uL (4.8-10.8)
[2021-08-27 06:51] LABS: Anion Gap 14 (12-20); Blood Urea Nitrogen 12 mg/dL (9-16); Carbon Dioxide 26 mmol/L (22-29); Chloride 103 mmol/L (96-108); Creatinine Clr Calc Pharmacy 92.2; Estimated Glomerular Filt Rate > 60; Glucose Random 162 mg/dL (60-115); Potassium 4.5 mmol/L (3.3-5.1); Sodium 138 mmol/L (135-145)
[2021-08-27] MEDS: Clopidogrel Bisulfate 75 MG TABLET PO (07:26)
[2021-08-27] MEDS: amLODIPine Besylate 5 MG TABLET PO (07:26)
[2021-08-27] MEDS: oxyCODONE HCl Immed Release 5 MG TABLET 10 MG PO ×3 (07:26→12:02)
[2021-08-27] MEDS: Metoprolol Succinate ER 50 MG TAB.ER.24H PO (07:27)
[2021-08-27] MEDS: Aspirin 81 MG TAB.CHEW PO (07:27)
[2021-08-27] MEDS: Gabapentin 600 MG TABLET PO ×3 (07:27→21:09)
[2021-08-27] MEDS: lisinopriL 10 MG TABLET PO (07:27)
[2021-08-27] MEDS: Insulin Lispro 100 UNIT/ML 3 ML VIAL 10 UNIT SUBCUT (07:31)
[2021-08-27] MEDS: vancomycin HCL 1,500 MG in 0.9 % Sodium Chloride 500 ML 333.33 MG IV ×2 (07:31→21:06)
[2021-08-27 07:57] LABS: Calcium 8.3 mg/dL (8.4-10.2)
[2021-08-27 08:00] VITALS: BP 167/75; PULSE 80; RESP 17; TEMP 36.8; O2SAT 97
--- NOTE | 2021-08-27 09:14 | HO.VASCPN ---
Subjective Subjective Date of Service: 08/27/21 Patient reports: no new complaints and feels better Interval history: patient is status post ray amputation right foot. He appears to be doing relatively well. Pain better controlled. He did get a good nights rest. Appears to be due Physical Exam Vital Signs: Vital Signs: Last Vital Signs Temp 98.2 F 08/27/21 08:00 Pulse 80 08/27/21 08:00 Resp 17 08/27/21 08:00 BP 167/75 H 08/27/21 08:00 Pulse Ox 97 08/27/21 08:00 BMI result Body Mass Index 29.9 Const: General: cooperative, healthy appearing and no acute distress Orientation/consciousness: oriented to person, oriented to place and oriented to time HENMT: Head: Yes normal to inspection Neck: Carotids: no bruits Chest: Chest palpation & inspection: normal inspection of the chest Resp: Effort & Inspection: normal respiratory effort and able to speak in complete sentences Auscultation: clear to auscultation bilaterally Cardio: Rate: regular rate Heart sounds: S1 normal heart sound present and S2 normal heart sound present GI: Inspection: Yes normal to inspection Skin: General skin exam: no rashes or lesions noted Wounds: amputation site ( right great toe ray amputation flap question viability) and wounds noted ( left heel clean) Neuro: General: oriented to person, oriented to place, oriented to time and CN's II-XI intact bilaterally Extrem: General: Yes normal to inspection, Yes full ROM and Yes no clubbing, cyanosis or edema Psych: Appearance: grossly normal and well kempt Speech and movement: Normal speech and movement present Affect: normal affect Progress Note: A&P Assessment and plan (1) Non-healing ulcer of foot: Status: Acute Assessment and Plan: in short patient is ray amputation of right great toe. He appears to be doing extremely well. Will plan for discharge within the next few days. I do believe that all the tissue and osteo has been resected. I think he would be stable on p.o. antibiotics. Upon discharge he can follow up with me in 2 weeks time. Thank you for allowing us to assist in his care. If there are any questions or concerns please do not hesitate to contact us. Fall Risk Details Current Medications: Current Medications Acetaminophen (Acetaminophen 325 Mg Tablet) 650 mg PO Q6H PRN PRN Reason: Pain, Mild (Pain Scale 1-3) Last Admin: 08/25/21 16:51 Dose: 650 mg Documented by: Albuterol Sulfate (Albuterol Sulfate (0.083%) 2.5 Mg/3 Ml Vial.Neb) 2.5 mg INHALE ONCE PRN PRN Reason: Wheezing Amlodipine Besylate (Amlodipine Besylate 5 Mg Tablet) 5 mg PO DAILY [facility]; Protocol Last Admin: 08/27/21 07:26 Dose: 5 mg Documented by: Aspirin (Aspirin 81 Mg Tab.Chew) 81 mg PO DAILY [facility] Last Admin: 08/27/21 07:27 Dose: 81 mg Documented by: Atorvastatin Calcium (Atorvastatin Calcium 20 Mg Tablet) 20 mg PO BEDTIME [facility] Last Admin: 08/26/21 20:00 Dose: 20 mg Documented by: Clopidogrel Bisulfate (Clopidogrel Bisulfate 75 Mg Tablet) 75 mg PO DAILY [facility] Last Admin: 08/27/21 07:26 Dose: 75 mg Documented by: Heparin Sodium (Porcine) 50 (units/ Sodium Chloride 5 ml) 0 units IVFLUSH QSHIFT [facility] Last Admin: 08/27/21 07:29 Dose: 1 unit Documented by: Enoxaparin Sodium (Enoxaparin Sodium 40 Mg/0.4 Ml Syringe) 40 mg SUBCUT Q24H [facility] Last Admin: 08/26/21 17:00 Dose: 40 mg Documented by: Fentanyl (Fentanyl Citrate/Pf 100 Mcg/2 Ml Vial) 50 mcg IVPUSH Q5M PRN; Protocol PRN Reason: Pain, Severe (Pain Scale 7-10) Last Admin: 08/23/21 10:49 Dose: 50 mcg Documented by: Fentanyl (Fentanyl Citrate/Pf 100 Mcg/2 Ml Vial) 25 mcg IVPUSH Q5M PRN; Protocol PRN Reason: Pain, Moderate (Pain Scale 4-6 Fentanyl (Fentanyl Citrate/Pf 100 Mcg/2 Ml Vial) 50 mcg IVPUSH Q5M PRN; Protocol PRN Reason: Pain, Severe (Pain Scale 7-10) Last Admin: 08/26/21 11:36 Dose: 50 mcg Documented by: Fentanyl (Fentanyl Citrate/Pf 100 Mcg/2 Ml Vial) 25 mcg IVPUSH Q5M PRN; Protocol PRN Reason: Pain, Moderate (Pain Scale 4-6 Gabapentin (Gabapentin 600 Mg Tablet) 600 mg PO TID [facility] Last Admin: 08/27/21 07:27 Dose: 600 mg Documented by: Hydromorphone HCl (Hydromorphone Hcl 2 Mg/Ml Vial) 1.5 mg IVPUSH Q3H PRN; Protocol PRN Reason: Pain, Severe (Pain Scale 7-10) Last Admin: 08/27/21 06:43 Dose: 1.5 mg Documented by: Hydromorphone HCl (Hydromorphone Hcl 0.5 Mg/0.5 Ml Syringe) 0.5 mg IVPUSH Q5M PRN; Protocol PRN Reason: Pain, Severe (Pain Scale 7-10) Last Admin: 08/26/21 12:15 Dose: 0.5 mg Documented by: Hydromorphone HCl (Hydromorphone Hcl 0.5 Mg/0.5 Ml Syringe) 0.25 mg IVPUSH Q5M PRN; Protocol PRN Reason: Pain, Severe (Pain Scale 7-10) Last Admin: 08/26/21 12:32 Dose: 0.25 mg Documented by: Vancomycin HCl 1,500 mg/ (Sodium Chloride) 500 mls @ 333.333 mls/hr IV Q12H [facility] Last Admin: 08/27/21 07:31 Dose: 333.33 mls/hr Documented by: Piperacillin Sod/Tazobactam (Sod 3.375 gm/ Sodium Chloride) 50 mls @ 100 mls/hr IV Q6H [facility] Last Infusion: 08/27/21 08:39 Dose: Infused Documented by: Insulin Glargine (Insulin Glargine,Hum.Rec.Anlog 100 Unit/Ml 10 Ml Vial) 30 unit SUBCUT BEDTIME [facility] Last Admin: 08/26/21 22:43 Dose: Not Given Documented by: Insulin Human Lispro (Insulin Lispro 100 Unit/Ml 3 Ml Vial) 10 unit SUBCUT BIDAC [facility] Last Admin: 08/27/21 07:31 Dose: 10 unit Documented by: Lisinopril (Lisinopril 10 Mg Tablet) 10 mg PO DAILY [facility]; Protocol Last Admin: 08/27/21 07:27 Dose: 10 mg Documented by: Melatonin (Melatonin 3 Mg Tablet) 6 mg PO BEDTIME PRN PRN Reason: Insomnia Last Admin: 08/21/21 20:26 Dose: 6 mg Documented by: Melatonin (Melatonin 3 Mg Tablet) 6 mg PO BEDTIME [facility] Last Admin: 08/26/21 20:00 Dose: 6 mg Documented by: Metoprolol Succinate (Metoprolol Succinate Er 50 Mg Tab.Er.24h) 50 mg PO DAILY [facility]; Protocol Last Admin: 08/27/21 07:27 Dose: 50 mg Documented by: Ondansetron HCl (Ondansetron Hcl 4 Mg/2 Ml Vial) 4 mg IVPUSH ONCE PRN PRN Reason: Nausea and Vomiting Oxycodone HCl (Oxycodone Hcl Immed Release 5 Mg Tablet) 5 mg PO ONCE PRN PRN Reason: Pain, Severe (Pain Scale 7-10) Oxycodone HCl (Oxycodone Hcl Immed Release 5 Mg Tablet) 5 mg PO ONCE PRN PRN Reason: Pain, Severe (Pain Scale 7-10) Oxycodone HCl (Oxycodone Hcl Immed Release 5 Mg Tablet) 10 mg PO Q6H PRN PRN Reason: Pain, Moderate (Pain Scale 4-6 Last Admin: 08/27/21 07:52 Dose: 10 mg Documented by: Pharmacy Consult (Consult Rx Perform Med Rec) 1 each MISCELLANE ONCE PRN PRN Reason: Consult order Sodium Chloride (0.9 % Sodium Chloride Flush 3 Ml Syringe) 3 ml IVFLUSH QSHIFT [facility] Last Admin: 08/27/21 07:23 Dose: 3 ml Documented by: Time Spent With Patient Time: Total time spent is greater than 50% in coordination of care (as documented) at patient's floor/unit and/or counseling patient: Time with patient: 15 - 24 minutes Procedures Date of Service Date of Service: 08/27/21 Quality Stroke Does the patient have a stroke diagnosis?: No VTE Prior VTE?: No VTE Risk Level:: Medical - moderate - high VTE Device Contraindication: Treatment Not Indicated VTE Drug Contraindication: N/A - Med Ordered
--- NOTE | 2021-08-27 09:21 | P.PNIM_ITS ---
Subjective Subjective Date of Service: 08/27/21 Interval History: seen and examined this morning follow up for right foot infection patient reports a good night, he was able to sleep well still having some pain in the right foot, denies fever or chills Review of Systems Review of Systems: Yes all other systems are reviewed and are negative Constitutional Constitutional: Denies chills and Denies fever(s) Cardiovascular Cardiovascular: Denies chest pain Respiratory Respiratory: Denies cough Gastrointestinal Gastrointestinal: Denies abdominal pain Physical Exam Verdana 4l Vital Signs: Verdana 4d Verdana 4d Vital Signs: Verdana 4d Verdana 4Bd Last Vital Signs Verdana 4d Adult Secondary Education Instructor New 4d Adult Secondary Education Instructor New 4d Temp 98.2 F 08/27/21 08:00 Adult Secondary Education Instructor New 4d Pulse 80 08/27/21 08:00 Adult Secondary Education Instructor NewNew 4d Resp 17 08/27/21 08:00 BP 167/75 H 08/27/21 08:00 Pulse Ox 97 08/27/21 08:00 BMI result Body Mass Index 29.9 Const: General: cooperative, comfortable, no acute distress, alert and awake Nutritional Appearance: well nourished Orientation/consciousness: patient oriented x3 Eyes: Sclerae: sclerae normal Pupils: Equal, round and reactive pupils present Resp: Effort & Inspection: normal respiratory effort and no respiratory distress Cardio: Rate: regular rate Rhythm: regular rhythm GI: Inspection: No distended Palpation (GI): Soft to palpation and nontender Neuro: General: patient oriented x3 Cranial nerves: Yes Equal, round and reactive pupils present Extrem: Other: right foot amputation site left heel wrapped in c/d/i dressing Objective Data Active Medications Acetaminophen (Acetaminophen 325 Mg Tablet) 650 mg PO Q6H PRN PRN Reason: Pain, Mild (Pain Scale 1-3) Last Admin: 08/25/21 16:51 Dose: 650 mg Documented by: MARYCRUZ Albuterol Sulfate (Albuterol Sulfate (0.083%) 2.5 Mg/3 Ml Vial.Neb) 2.5 mg INHALE ONCE PRN PRN Reason: Wheezing Amlodipine Besylate (Amlodipine Besylate 5 Mg Tablet) 5 mg PO DAILY [facility]; Protocol Last Admin: 08/27/21 07:26 Dose: 5 mg Documented by: TARIQ Aspirin (Aspirin 81 Mg Tab.Chew) 81 mg PO DAILY [facility] Last Admin: 08/27/21 07:27 Dose: 81 mg Documented by: TARIQ Atorvastatin Calcium (Atorvastatin Calcium 20 Mg Tablet) 20 mg PO BEDTIME [facility] Last Admin: 08/26/21 20:00 Dose: 20 mg Documented by: KATINA Clopidogrel Bisulfate (Clopidogrel Bisulfate 75 Mg Tablet) 75 mg PO DAILY [facility] Last Admin: 08/27/21 07:26 Dose: 75 mg Documented by: TARIQ Heparin Sodium (Porcine) 50 (units/ Sodium Chloride 5 ml) 0 units IVFLUSH QSHIFT [facility] Last Admin: 08/27/21 07:29 Dose: 1 unit Documented by: TARIQ Enoxaparin Sodium (Enoxaparin Sodium 40 Mg/0.4 Ml Syringe) 40 mg SUBCUT Q24H [facility] Last Admin: 08/26/21 17:00 Dose: 40 mg Documented by: REGINALDO Gabapentin (Gabapentin 600 Mg Tablet) 600 mg PO TID [facility] Last Admin: 08/27/21 07:27 Dose: 600 mg Documented by: TARIQ Hydromorphone HCl (Hydromorphone Hcl 2 Mg/Ml Vial) 1.5 mg IVPUSH Q3H PRN; Protocol PRN Reason: Pain, Severe (Pain Scale 7-10) Last Admin: 08/27/21 06:43 Dose: 1.5 mg Documented by: KATINA Hydromorphone HCl (Hydromorphone Hcl 0.5 Mg/0.5 Ml Syringe) 0.5 mg IVPUSH Q5M PRN; Protocol PRN Reason: Pain, Severe (Pain Scale 7-10) Last Admin: 08/26/21 12:15 Dose: 0.5 mg Documented by: PATO Hydromorphone HCl (Hydromorphone Hcl 0.5 Mg/0.5 Ml Syringe) 0.25 mg IVPUSH Q5M PRN; Protocol PRN Reason: Pain, Severe (Pain Scale 7-10) Last Admin: 08/26/21 12:32 Dose: 0.25 mg Documented by: PATO Vancomycin HCl 1,500 mg/ (Sodium Chloride) 500 mls @ 333.333 mls/hr IV Q12H [facility] Last Admin: 08/27/21 07:31 Dose: 333.33 mls/hr Documented by: TARIQ Piperacillin Sod/Tazobactam (Sod 3.375 gm/ Sodium Chloride) 50 mls @ 100 mls/hr IV Q6H [facility] Last Infusion: 08/27/21 08:39 Dose: 100 mls/hr Documented by: TARIQ Insulin Glargine (Insulin Glargine,Hum.Rec.Anlog 100 Unit/Ml 10 Ml Vial) 30 unit SUBCUT BEDTIME [facility] Last Admin: 08/26/21 22:43 Dose: Not Given Documented by: KATINA Non-Admin Reason: Patient Refused Insulin Human Lispro (Insulin Lispro 100 Unit/Ml 3 Ml Vial) 10 unit SUBCUT BIDAC [facility] Last Admin: 08/27/21 07:31 Dose: 10 unit Documented by: TARIQ Lisinopril (Lisinopril 10 Mg Tablet) 10 mg PO DAILY [facility]; Protocol Last Admin: 08/27/21 07:27 Dose: 10 mg Documented by: TARIQ Melatonin (Melatonin 3 Mg Tablet) 6 mg PO BEDTIME PRN PRN Reason: Insomnia Last Admin: 08/21/21 20:26 Dose: 6 mg Documented by: GABBY Melatonin (Melatonin 3 Mg Tablet) 6 mg PO BEDTIME [facility] Last Admin: 08/26/21 20:00 Dose: 6 mg Documented by: KATINA Metoprolol Succinate (Metoprolol Succinate Er 50 Mg Tab.Er.24h) 50 mg PO DAILY [facility]; Protocol Last Admin: 08/27/21 07:27 Dose: 50 mg Documented by: TARIQ Oxycodone HCl (Oxycodone Hcl Immed Release 5 Mg Tablet) 5 mg PO ONCE PRN PRN Reason: Pain, Severe (Pain Scale 7-10) Oxycodone HCl (Oxycodone Hcl Immed Release 5 Mg Tablet) 10 mg PO Q6H PRN PRN Reason: Pain, Moderate (Pain Scale 4-6 Last Admin: 08/27/21 07:52 Dose: 10 mg Documented by: TARIQ Pharmacy Consult (Consult Rx Perform Med Rec) 1 each MISCELLANE ONCE PRN PRN Reason: Consult order Sodium Chloride (0.9 % Sodium Chloride Flush 3 Ml Syringe) 3 ml IVFLUSH QSHIFT [facility] Last Admin: 08/27/21 07:23 Dose: 3 ml Documented by: TARIQ Labs CBC & Chem 7: 08/27/21 05:52 08/27/21 05:52 Labs: Laboratory Results - last 24 hr 08/26/21 08/26/21 08/26/21 09:44 15:35 22:41 MCV MCH MCHC RDW Plt Count MPV Immature Gran % (Auto) Neut % (Auto) Lymph % (Auto) [place] % (Auto) Eos % (Auto) Baso % (Auto) Lymph # (Auto) [place] # (Auto) Eos # (Auto) Baso # (Auto) Abs Immat Gran (auto) Absolute Neuts (auto) Absolute Nucleated RBC Nucleated RBC % (auto) Anion Gap Estim Creat Clear Calc Estimated GFR POC Glucose 114 170 H 140 H Random Glucose Calcium 08/27/21 08/27/21 05:52 05:52 MCV 81.1 MCH 25.4 L MCHC 31.3 RDW 15.3 Plt Count 367 MPV 9.9 Immature Gran % (Auto) 1.0 H Neut % (Auto) 73.7 H Lymph % (Auto) 13.7 L [place] % (Auto) 9.8 Eos % (Auto) 1.5 Baso % (Auto) 0.3 Lymph # (Auto) 2.0 [place] # (Auto) 1.4 H Eos # (Auto) 0.2 Baso # (Auto) 0.0 Abs Immat Gran (auto) 0.15 H Absolute Neuts (auto) 10.8 H Absolute Nucleated RBC 0.000 Nucleated RBC % (auto) 0.0 Anion Gap 14 Estim Creat Clear Calc 92.2 Estimated GFR > 60 POC Glucose Random Glucose 162 H D Calcium 8.3 L Microbiology Microbiology Results: Microbiology 08/26/21 Unknown Gram Stain - Final Toe Right Great Assessment and Plan (1) Cellulitis of foot, right: Status: Acute Assessment and Plan: This is a 56 year old male with diabetes here with post amputation of right big toe site cellulitis Cellulitis of right great toe amputation site/diabetic foot infection s/p right great toe amputation 08/09, excisional debridement 08/23, s/p right gr eat toe ray amputation 08/26 wound culture from 08/23 growing citrobacter freundii continue IV Vanco and Zosyn for now ID initially recommended 6 weeks of IV Abx (Ertapenem) at discharge, but surgery feels the infected area has been removed and he can likely go on po abx vascular surgery following 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 bp not at goal continue metoprolol, Lisinopril will increase dose of norvasc DM2 continue Lantus and humalog neuropathy continue gabapentin DVT prophylaxis with Lovenox Attending Dr. Mejia Quality Stroke Does the patient have a stroke diagnosis?: No VTE Prior VTE?: No VTE Risk Level:: Medical - moderate - high VTE Device Contraindication: Treatment Not Indicated VTE Drug Contraindication: N/A - Med Ordered
[2021-08-27 11:53] LABS: Glucose, Whole Blood 182 mg/dL (60-115)
[2021-08-27 11:53] LABS: Glucose, Whole Blood 111 mg/dL (60-115)
--- NOTE | 2021-08-27 13:25 | HO.POSTANES ---
Post Anesthesia Evaluation Post Anesthesia Evaluation Vital Signs: Vital Signs Temp Pulse Resp BP Pulse Ox 08/27/21 08:00 98.2 F 80 17 167/75 H 97 Anesthesia: General Mental Status: Awake Pain Control: Satisfactory Nausea/Vomiting: None Hydration: Adequate Anesthesia-Related Issues: No Anes. Related Issues
--- NOTE | 2021-08-27 14:14 | MHC.CM.PN ---
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 patient is now post op day i (s/p great toe amputation 08/09/21, excisional debridement 08/23/21, s/p right great toe ray amputatuion 08/26/21 wound cx from 08/23/21 growing citrobacteria freundii, continues on iv vancomycin and zosyn discharge plan 1 str willi following and accepting but do not know discharge DATE , STR REF [facility]) FOR P.T. ? PIC LINE IV ABX VS HOME WITH RESUMPTION OF HIS [facility] HOME AND [facility] IF NEEDED CASE MANGER TO CONTINUE TO FOLLOW
--- NOTE | 2021-08-27 15:56 | MHC.CM.PN ---
[place] INF[place] REFERR[place]PDATED TO [place]CLUDE [facility] [facility] [place]. CURRENT PLAN IS [facility] WITH [facility]FUSION SERVICES.
[2021-08-27 16:00] VITALS: BP 155/77; PULSE 83; RESP 17; TEMP 36.6; O2SAT 98
[2021-08-27 16:51] LABS: Glucose, Whole Blood 170 mg/dL (60-115)
[2021-08-27] MEDS: Enoxaparin Sodium 40 MG/0.4 ML SYRINGE SUBCUT (17:23)
[2021-08-27 17:35] LABS: Vancomycin Trough 12.3 mcg/mL (10.0-20.0)
[2021-08-27 20:39] LABS: Glucose, Whole Blood 147 mg/dL (60-115)
[2021-08-27] MEDS: Atorvastatin Calcium 20 MG TABLET PO (21:08)
[2021-08-27] MEDS: Melatonin 3 MG TABLET 6 MG PO (21:09)
[2021-08-27] MEDS: Insulin Glargine,Hum.rec.anlog 100 UNIT/ML 10 ML VIAL 30 UNIT SUBCUT (21:10)
[2021-08-28] VITALS: BP 152/70; PULSE 77; RESP 17; TEMP 36.7; O2SAT 98
[2021-08-28] MEDS: HYDROmorphone HCl 2 MG/ML VIAL 1.5 MG IVPUSH ×2 (00:49→08:58)
[2021-08-28] MEDS: Heparin Sodium,Porcine Flush 50 UNITS, 0.9 % Sodium Chloride Flush 5 ML IVFLUSH ×3 (00:49→16:21)
[2021-08-28] MEDS: Piperacillin Sodium/Tazobactam 3.375 GM in 0.9 % Sodium Chloride 50 ML IV ×2 (02:15→08:13)
[2021-08-28 06:24] LABS: MANUAL DIFF FLAG NO
[2021-08-28 06:33] LABS: Basophils Absolute Auto 0.1 X10*3/uL (0.0-0.2); Basophils Percent Auto 0.4 % (0-2); Eosinophils Absolute Auto 0.4 X10*3/uL (0.0-0.4); Eosinophils Percent Auto 2.5 % (0-4); Hematocrit 33.8 % (42.0-52.0); Hemoglobin 10.7 g/dl (14.0-18.0); Imm Gran Abs Auto 0.11 X10*3/uL (0.00-0.03); Imm Gran Pct Auto 0.8 % (0.0-0.4); Lymphocytes Absolute Auto 1.8 X10*3/uL (1.2-4.9); Lymphocytes Percent Auto 12.9 % (20-40); Mean Corpuscular HGB Conc 31.7 g/dl (31.0-36.0); Mean Corpuscular Hemoglobin 25.4 pg (27.0-33.0); Mean Corpuscular Volume 80.3 fL (80.0-98.0); Monocytes Absolute Auto 1.3 X10*3/uL (0.1-1.2); Monocytes Percent Auto 9.2 % (2-11); Neutrophils Absolute Auto 10.5 x10*3/uL (2.0-8.3); Neutrophils Percent Auto 74.2 % (45-73); Platelet Count 347 X10*3/uL (160-400); Red Blood Count 4.21 X10*6/uL (4.60-5.80); Red Cell Distribution Width 15.2 % (11.0-16.0); White Blood Count 14.2 X10*3/uL (4.8-10.8)
[2021-08-28 06:48] LABS: Anion Gap 15 (12-20); Blood Urea Nitrogen 11 mg/dL (9-16); Calcium 8.3 mg/dL (8.4-10.2); Carbon Dioxide 23 mmol/L (22-29); Chloride 101 mmol/L (96-108); Estimated Glomerular Filt Rate > 60; Glucose Random 108 mg/dL (60-115); Potassium 4.3 mmol/L (3.3-5.1); Sodium 135 mmol/L (135-145)
[2021-08-28] MEDS: oxyCODONE HCl Immed Release 5 MG TABLET PO (07:19)
[2021-08-28] MEDS: oxyCODONE HCl Immed Release 5 MG TABLET 10 MG PO ×3 (07:19→19:13)
[2021-08-28 07:45] LABS: Glucose, Whole Blood 124 mg/dL (60-115)
[2021-08-28 08:00] VITALS: BP 187/87; PULSE 92; RESP 19; TEMP 36.2; O2SAT 98
[2021-08-28] MEDS: 0.9 % Sodium Chloride Flush 3 ML SYRINGE IVFLUSH ×2 (08:11→16:21)
[2021-08-28] MEDS: vancomycin HCL 1,500 MG in 0.9 % Sodium Chloride 500 ML 333.33 MG IV (08:57)
[2021-08-28] MEDS: Insulin Lispro 100 UNIT/ML 3 ML VIAL 10 UNIT SUBCUT (08:58)
[2021-08-28] MEDS: amLODIPine Besylate 10 MG TABLET PO (09:02)
[2021-08-28] MEDS: Gabapentin 600 MG TABLET PO ×3 (09:02→20:50)
[2021-08-28] MEDS: lisinopriL 10 MG TABLET PO (09:02)
[2021-08-28] MEDS: Aspirin 81 MG TAB.CHEW PO (09:03)
[2021-08-28] MEDS: Metoprolol Succinate ER 50 MG TAB.ER.24H PO (09:03)
[2021-08-28] MEDS: Clopidogrel Bisulfate 75 MG TABLET PO (09:03)
--- NOTE | 2021-08-28 10:45 | P.PNIM_ITS ---
Subjective Subjective Date of Service: 08/28/21 Interval History: seen and examined this morning follow up for right diabetic foot infection, left heel ulcer pain improving Review of Systems Review of Systems: Yes all other systems are reviewed and are negative Constitutional Constitutional: Denies chills and Denies fever(s) Cardiovascular Cardiovascular: Denies chest pain Respiratory Respiratory: Denies cough Gastrointestinal Gastrointestinal: Denies abdominal pain Physical Exam Verdana 4l Vital Signs: Verdana 4d Verdana 4d Vital Signs: Verdana 4d Verdana 4Bd Last Vital Signs Verdana 4d Tube And Manifold Builder New 4d Tube And Manifold Builder New 4d Temp 97.1 F 08/28/21 08:00 Tube And Manifold Builder New 4d Pulse 92 08/28/21 08:00 Tube And Manifold Builder NewNew 4d Resp 19 08/28/21 08:00 BP 187/87 H 08/28/21 08:00 Pulse Ox 98 08/28/21 08:00 BMI result Body Mass Index 29.9 Const: General: cooperative, comfortable, no acute distress, alert and awake Nutritional Appearance: well nourished Orientation/consciousness: patient oriented x3 HENMT: Head: Yes normocephalic and Yes atraumatic Eyes: Sclerae: sclerae normal Pupils: Equal, round and reactive pupils present Resp: Effort & Inspection: normal respiratory effort and no respiratory distress Cardio: Rate: regular rate Rhythm: regular rhythm GI: Inspection: No distended Palpation (GI): Soft to palpation and nontender Neuro: General: patient oriented x3 Cranial nerves: Yes CN's II-XII intact bilaterally, Yes Equal, round and reactive pupils present and Yes Bilaterally intact EOM present Extrem: Other: Objective Data Active Medications Acetaminophen (Acetaminophen 325 Mg Tablet) 650 mg PO Q6H PRN PRN Reason: Pain, Mild (Pain Scale 1-3) Last Admin: 08/25/21 16:51 Dose: 650 mg Documented by: MARYCRUZ Albuterol Sulfate (Albuterol Sulfate (0.083%) 2.5 Mg/3 Ml Vial.Neb) 2.5 mg INHALE ONCE PRN PRN Reason: Wheezing Amlodipine Besylate (Amlodipine Besylate 10 Mg Tablet) 10 mg PO DAILY [facility]; Protocol Last Admin: 08/28/21 09:02 Dose: 10 mg Documented by: TARIQ Aspirin (Aspirin 81 Mg Tab.Chew) 81 mg PO DAILY [facility] Last Admin: 08/28/21 09:03 Dose: 81 mg Documented by: TARIQ Atorvastatin Calcium (Atorvastatin Calcium 20 Mg Tablet) 20 mg PO BEDTIME [facility] Last Admin: 08/27/21 21:08 Dose: 20 mg Documented by: BUTCH Clopidogrel Bisulfate (Clopidogrel Bisulfate 75 Mg Tablet) 75 mg PO DAILY [facility] Last Admin: 08/28/21 09:03 Dose: 75 mg Documented by: TARIQ Heparin Sodium (Porcine) 50 (units/ Sodium Chloride 5 ml) 0 units IVFLUSH QS HIFT [facility] Last Admin: 08/28/21 08:12 Dose: 1 unit Documented by: TARIQ Enoxaparin Sodium (Enoxaparin Sodium 40 Mg/0.4 Ml Syringe) 40 mg SUBCUT Q24H [facility] Last Admin: 08/27/21 17:23 Dose: 40 mg Documented by: BRENDON Gabapentin (Gabapentin 600 Mg Tablet) 600 mg PO TID [facility] Last Admin: 08/28/21 09:02 Dose: 600 mg Documented by: TARIQ Hydromorphone HCl (Hydromorphone Hcl 2 Mg/Ml Vial) 1.5 mg IVPUSH Q3H PRN; Protocol PRN Reason: Pain, Severe (Pain Scale 7-10) Last Admin: 08/28/21 08:58 Dose: 1.5 mg Documented by: TARIQ Vancomycin HCl 1,500 mg/ (Sodium Chloride) 500 mls @ 333.333 mls/hr IV Q12H [facility] Last Admin: 08/28/21 08:57 Dose: 333.33 mls/hr Documented by: TARIQ Piperacillin Sod/Tazobactam (Sod 3.375 gm/ Sodium Chloride) 50 mls @ 100 mls/hr IV Q6H [facility] Last Infusion: 08/28/21 09:03 Dose: 100 mls/hr Documented by: TARIQ Insulin Glargine (Insulin Glargine,Hum.Rec.Anlog 100 Unit/Ml 10 Ml Vial) 30 unit SUBCUT BEDTIME [facility] Last Admin: 08/27/21 21:10 Dose: 30 unit Documented by: BUTCH Insulin Human Lispro (Insulin Lispro 100 Unit/Ml 3 Ml Vial) 10 unit SUBCUT BIDAC [facility] Last Admin: 08/28/21 08:58 Dose: 10 unit Documented by: TARIQ Lisinopril (Lisinopril 20 Mg Tablet) 20 mg PO DAILY [facility]; Protocol Melatonin (Melatonin 3 Mg Tablet) 6 mg PO BEDTIME PRN PRN Reason: Insomnia Last Admin: 08/21/21 20:26 Dose: 6 mg Documented by: GABBY Melatonin (Melatonin 3 Mg Tablet) 6 mg PO BEDTIME [facility] Last Admin: 08/27/21 21:09 Dose: 6 mg Documented by: BUTCH Metoprolol Succinate (Metoprolol Succinate Er 50 Mg Tab.Er.24h) 50 mg PO DAILY [facility]; Protocol Last Admin: 08/28/21 09:03 Dose: 50 mg Documented by: TARIQ Oxycodone HCl (Oxycodone Hcl Immed Release 5 Mg Tablet) 10 mg PO Q6H PRN PRN Reason: Pain, Moderate (Pain Scale 4-6 Last Admin: 08/28/21 07:19 Dose: 10 mg Documented by: TARIQ Pharmacy Consult (Consult Rx Perform Med Rec) 1 each MISCELLANE ONCE PRN PRN Reason: Consult order Sodium Chloride (0.9 % Sodium Chloride Flush 3 Ml Syringe) 3 ml IVFLUSH QSHIFT [facility] Last Admin: 08/28/21 08:11 Dose: 3 ml Documented by: TARIQ Labs CBC & Chem 7: 08/28/21 05:35 08/28/21 05:35 Labs: Laboratory Results - last 24 hr 08/27/21 08/27/21 08/27/21 07:24 11:26 16:42 MCV MCH MCHC RDW Plt Count MPV Immature Gran % (Auto) Neut % (Auto) Lymph % (Auto) [place] % (Auto) Eos % (Auto) Baso % (Auto) Lymph # (Auto) [place] # (Auto) Eos # (Auto) Baso # (Auto) Abs Immat Gran (auto) Absolute Neuts (auto) Absolute Nucleated RBC Nucleated RBC % (auto) Anion Gap Estim Creat Clear Calc Estimated GFR POC Glucose 182 H 111 170 H Random Glucose Calcium Vancomycin Trough 08/27/21 08/27/21 08/28/21 17:00 20:03 05:35 MCV 80.3 MCH 25.4 L MCHC 31.7 RDW 15.2 Plt Count 347 MPV 10.0 Immature Gran % (Auto) 0.8 H Neut % (Auto) 74.2 H Lymph % (Auto) 12.9 L [place] % (Auto) 9.2 Eos % (Auto) 2.5 Baso % (Auto) 0.4 Lymph # (Auto) 1.8 [place] # (Auto) 1.3 H Eos # (Auto) 0.4 Baso # (Auto) 0.1 Abs Immat Gran (auto) 0.11 H Absolute Neuts (auto) 10.5 H Absolute Nucleated RBC 0.000 Nucleated RBC % (auto) 0.0 Anion Gap Estim Creat Clear Calc Estimated GFR POC Glucose 147 H Random Glucose Calcium Vancomycin Trough 12.3 08/28/21 08/28/21 05:35 07:35 MCV MCH MCHC RDW Plt Count MPV Immature Gran % (Auto) Neut % (Auto) Lymph % (Auto) [place] % (Auto) Eos % (Auto) Baso % (Auto) Lymph # (Auto) [place] # (Auto) Eos # (Auto) Baso # (Auto) Abs Immat Gran (auto) Absolute Neuts (auto) Absolute Nucleated RBC Nucleated RBC % (auto) Anion Gap 15 Estim Creat Clear Calc 108.0 Estimated GFR > 60 POC Glucose 124 H Random Glucose 108 Calcium 8.3 L Vancomycin Trough Microbiology Microbiology Results: Microbiology 08/26/21 Unknown Gram Stain - Final Toe Right Great Routine Culture - Final Citrobacter freundii Assessment and Plan (1) Cellulitis of foot, right: Status: Acute Assessment and Plan: This is a 56 year old male with diabetes here with post amputation of right big toe site cellulitis Cellulitis of right great toe amputation site/diabetic foot infection s/p right great toe amputation 08/09, excisional debridement 08/23, s/p right great toe ray amputation 08/26 wound culture from 08/23, 08/26 growing citrobacter freundii Blood cultures negative confirmed with ID need for 6 weeks of IV Abx (Ertapenem) on discharge, will change ABX to meropenem while in house PICC line placed 08/23 vascular surgery following Left heel ulcer related to peripheral vascular disease, diabetes may need some debridement, will discuss with surgery continue local wound care HTN. bp elevated continue metoprolol, norvasc will increase dose of lisinopril CAD continue antipletlets , metoprolol,and atorvastatin DM2 continue Lantus and humalog neuropathy continue gabapentin DVT prophylaxis with Lovenox Attending Dr. Mejia Quality Stroke Does the patient have a stroke diagnosis?: No VTE Prior VTE?: No VTE Risk Level:: Medical - moderate - high VTE Device Contraindication: Treatment Not Indicated VTE Drug Contraindication: N/A - Med Ordered
[2021-08-28] MEDS: Acetaminophen 325 MG TABLET 650 MG PO ×2 (11:26→21:04)
[2021-08-28 11:37] LABS: Glucose, Whole Blood 103 mg/dL (60-115)
[2021-08-28 16:00] VITALS: BP 148/70; PULSE 73; RESP 18; TEMP 36.4; O2SAT 96
[2021-08-28 17:05] LABS: Glucose, Whole Blood 163 mg/dL (60-115)
[2021-08-28] MEDS: Enoxaparin Sodium 40 MG/0.4 ML SYRINGE SUBCUT (19:13)
[2021-08-28 20:31] LABS: Glucose, Whole Blood 223 mg/dL (60-115)
[2021-08-28] MEDS: Insulin Glargine,Hum.rec.anlog 100 UNIT/ML 10 ML VIAL 30 UNIT SUBCUT (20:49)
[2021-08-28] MEDS: Melatonin 3 MG TABLET 6 MG PO (20:50)
[2021-08-28] MEDS: Atorvastatin Calcium 20 MG TABLET PO (20:50)
[2021-08-29] VITALS: BP 140/65; PULSE 77; RESP 18; TEMP 36.7; O2SAT 98
[2021-08-29] MEDS: Heparin Sodium,Porcine Flush 50 UNITS, 0.9 % Sodium Chloride Flush 5 ML IVFLUSH ×3 (01:09→16:39)
[2021-08-29] MEDS: HYDROmorphone HCl 2 MG/ML VIAL 1.5 MG IVPUSH (01:09)
[2021-08-29] MEDS: oxyCODONE HCl Immed Release 5 MG TABLET 10 MG PO ×2 (04:16→20:55)
[2021-08-29 06:30] LABS: Vancomycin Trough 6.3 mcg/mL (10.0-20.0)
[2021-08-29 07:42] VITALS: BP 184/86; PULSE 84; RESP 20; TEMP 37.1; O2SAT 99
[2021-08-29 07:56] LABS: Glucose, Whole Blood 153 mg/dL (60-115)
[2021-08-29] MEDS: HYDROmorphone HCl 2 MG/ML VIAL 1 MG IVPUSH ×5 (08:30→21:35)
[2021-08-29] MEDS: Gabapentin 600 MG TABLET PO ×3 (08:32→20:55)
[2021-08-29] MEDS: Aspirin 81 MG TAB.CHEW PO (08:32)
[2021-08-29] MEDS: Clopidogrel Bisulfate 75 MG TABLET PO (08:32)
[2021-08-29] MEDS: Metoprolol Succinate ER 50 MG TAB.ER.24H PO (08:32)
[2021-08-29] MEDS: lisinopriL 20 MG TABLET PO (08:32)
[2021-08-29] MEDS: amLODIPine Besylate 10 MG TABLET PO (08:32)
[2021-08-29] MEDS: Collagenase Clostridium Hist. 30 GM TUBE 1 APPL TOPICAL (11:39)
[2021-08-29] MEDS: 0.9 % Sodium Chloride Flush 3 ML SYRINGE IVFLUSH (11:40)
[2021-08-29 12:13] LABS: Glucose, Whole Blood 169 mg/dL (60-115)
--- NOTE | 2021-08-29 13:04 | P.PNIM_ITS ---
Subjective Subjective Date of Service: 08/29/21 Interval History: seen and examined this morning follow up for diabetic foot wound no overnight events feeling well this morning Review of Systems Review of Systems: Yes all other systems are reviewed and are negative Constitutional Constitutional: Denies chills and Denies fever(s) Cardiovascular Cardiovascular: Denies chest pain Respiratory Respiratory: Denies cough Gastrointestinal Gastrointestinal: Denies abdominal pain Physical Exam Vital Signs: Vital Signs: Last Vital Signs Temp 98.7 F 08/29/21 07:42 Pulse 84 08/29/21 07:42 Resp 20 08/29/21 07:42 BP 184/86 H 08/29/21 07:42 Pulse Ox 99 08/29/21 07:42 BMI result Body Mass Index 29.9 Const: General: cooperative, comfortable, no acute distress, alert and awake Nutritional Appearance: well nourished Orientation/consciousness: patient oriented x3 HENMT: Head: Yes normocephalic and Yes atraumatic Eyes: Sclerae: sclerae normal Pupils: Equal, round and reactive pupils present Resp: Effort & Inspection: normal respiratory effort and no respiratory distress Cardio: Rate: regular rate Rhythm: regular rhythm GI: Inspection: No distended Palpation (GI): Soft to palpation and nontender Neuro: General: patient oriented x3 Cranial nerves: Yes CN's II-XII intact bilaterally, Yes Equal, round and reactive pupils present and Yes Bilaterally intact EOM present Extrem: Other: Objective Data Active Medications Acetaminophen (Acetaminophen 325 Mg Tablet) 650 mg PO Q6H PRN PRN Reason: Pain, Mild (Pain Scale 1-3) Last Admin: 08/28/21 21:04 Dose: 650 mg Documented by: SAKINA Albuterol Sulfate (Albuterol Sulfate (0.083%) 2.5 Mg/3 Ml Vial.Neb) 2.5 mg INHALE ONCE PRN PRN Reason: Wheezing Amlodipine Besylate (Amlodipine Besylate 10 Mg Tablet) 10 mg PO DAILY [facility]; Protocol Last Admin: 08/29/21 08:32 Dose: 10 mg Documented by: BRYON Aspirin (Aspirin 81 Mg Tab.Chew) 81 mg PO DAILY [facility] Last Admin: 08/29/21 08:32 Dose: 81 mg Documented by: BRYON Atorvastatin Calcium (Atorvastatin Calcium 20 Mg Tablet) 20 mg PO BEDTIME [facility] Last Admin: 08/28/21 20:50 Dose: 20 mg Documented by: SAKINA Clopidogrel Bisulfate (Clopidogrel Bisulfate 75 Mg Tablet) 75 mg PO DAILY [facility] Last Admin: 08/29/21 08:32 Dose: 75 mg Documented by: BRYON Collagenase (Collagenase Clostridium Hist. 30 Gm Tube) 1 appl TOPICAL DAILY [facility]; Protocol Last Admin: 08/29/21 11:39 Dose: 1 appl Documented by: BRYON Heparin Sodium (Porcine) 50 (units/ Sodium Chloride 5 ml) 0 units IVFLUSH QSHIFT [facility] Last Admin: 08/29/21 08:29 Dose: 50 unit Documented by: BRYON Enoxaparin Sodium (Enoxaparin Sodium 40 Mg/0.4 Ml Syringe) 40 mg SUBCUT Q24H [facility] Last Admin: 08/28/21 19:13 Dose: 40 mg Documented by: SAKINA Gabapentin (Gabapentin 600 Mg Tablet) 600 mg PO TID [facility] Last Admin: 08/29/21 08:32 Dose: 600 mg Documented by: BRYON Hydromorphone HCl (Hydromorphone Hcl 2 Mg/Ml Vial) 1 mg IVPUSH Q3H PRN; Protocol PRN Reason: Pain, Severe (Pain Scale 7-10) Last Admin: 08/29/21 11:39 Dose: 1 mg Documented by: BRYON Meropenem 1 gm/ Sodium (Chloride) 100 mls @ 100 mls/hr IV Q8H [facility] Last Admin: 08/29/21 11:39 Dose: 100 mls/hr Documented by: BRYON Insulin Glargine (Insulin Glargine,Hum.Rec.Anlog 100 Unit/Ml 10 Ml Vial) 30 unit SUBCUT BEDTIME [facility] Last Admin: 08/28/21 20:49 Dose: 30 unit Documented by: SAKINA Insulin Human Lispro (Insulin Lispro 100 Unit/Ml 3 Ml Vial) 10 unit SUBCUT BIDAC [facility] Last Admin: 08/29/21 08:28 Dose: Not Given Documented by: BRYON Non-Admin Reason: No Insulin Coverage Lisinopril (Lisinopril 20 Mg Tablet) 20 mg PO DAILY [facility]; Protocol Last Admin: 08/29/21 08:32 Dose: 20 mg Documented by: BRYON Melatonin (Melatonin 3 Mg Tablet) 6 mg PO BEDTIME PRN PRN Reason: Insomnia Last Admin: 08/21/21 20:26 Dose: 6 mg Documented by: GABBY Melatonin (Melatonin 3 Mg Tablet) 6 mg PO BEDTIME [facility] Last Admin: 08/28/21 20:50 Dose: 6 mg Documented by: SAKINA Metoprolol Succinate (Metoprolol Succinate Er 50 Mg Tab.Er.24h) 50 mg PO DAILY [facility]; Protocol Last Admin: 08/29/21 08:32 Dose: 50 mg Documented by: BRYON Oxycodone HCl (Oxycodone Hcl Immed Release 5 Mg Tablet) 10 mg PO Q6H PRN PRN Reason: Pain, Moderate (Pain Scale 4-6 Last Admin: 08/29/21 04:16 Dose: 10 mg Documented by: MAXIMO Pharmacy Consult (Consult Rx Perform Med Rec) 1 each MISCELLANE ONCE PRN PRN Reason: Consult order Sodium Chloride (0.9 % Sodium Chloride Flush 3 Ml Syringe) 3 ml IVFLUSH QSHIFT [facility] Last Admin: 08/29/21 11:40 Dose: 3 ml Documented by: BRYON Labs CBC & Chem 7: 08/28/21 05:35 08/28/21 05:35 Labs: Laboratory Results - last 24 hr 08/28/21 08/28/21 08/29/21 16:38 19:56 05:53 POC Glucose 163 H 223 H Vancomycin Trough 6.3 L 08/29/21 08/29/21 07:48 11:57 POC Glucose 153 H 169 H Vancomycin Trough Assessment and Plan (1) Diabetic foot ulcer: Status: Acute Assessment and Plan: This is a 56 year old male with diabetes here with post amputation of right big toe site cellulitis Cellulitis of right great toe amputation site/diabetic foot infection s/p right great toe amputation 08/09, excisional debridement 08/23, s/p right great toe ray amputation 08/26 wound culture from 08/23, 08/26 growing citrobacter freundii Blood cultures negative confirmed with ID need for 6 weeks of IV Abx (Ertapenem) on discharge, continue meropenem while in house PICC line placed 08/23 vascular surgery following Left heel ulcer related to peripheral vascular disease, diabetes continue santyl, local wound care vascular surgery following, no need for debridement at this time HTN. bp elevated continue metoprolol, norvasc, lisinopril CAD continue antipletlets , metoprolol,and atorvastatin DM2 continue Lantus and SSI neuropathy continue gabapentin DVT prophylaxis with Lovenox Attending Dr. Mejia Dispo: d/c to [facility] when medically ready Quality Stroke Does the patient have a stroke diagnosis?: No VTE Prior VTE?: No VTE Risk Level:: Medical - moderate - high VTE Device Contraindication: Treatment Not Indicated VTE Drug Contraindication: N/A - Med Ordered
[2021-08-29 15:35] VITALS: BP 155/77; PULSE 79; RESP 17; TEMP 36.7; O2SAT 97
[2021-08-29 16:07] LABS: Glucose, Whole Blood 169 mg/dL (60-115)
[2021-08-29] MEDS: Insulin Lispro 100 UNIT/ML 3 ML VIAL SUBCUT (16:38)
[2021-08-29] MEDS: Enoxaparin Sodium 40 MG/0.4 ML SYRINGE SUBCUT (18:31)
[2021-08-29 19:25] VITALS: BP 138/64; PULSE 77; RESP 18; TEMP 36.7; O2SAT 98
[2021-08-29 19:56] LABS: Glucose, Whole Blood 132 mg/dL (60-115)
[2021-08-29] MEDS: Melatonin 3 MG TABLET 6 MG PO (20:54)
[2021-08-29] MEDS: Atorvastatin Calcium 20 MG TABLET PO (20:54)
[2021-08-29] MEDS: Insulin Glargine,Hum.rec.anlog 100 UNIT/ML 10 ML VIAL 30 UNIT SUBCUT (20:55)
[2021-08-30] VITALS (7 sets, daily range): BP systolic 141–165; BP diastolic 67–89; PULSE 81–88; RESP 18–20; TEMP 36.1–36.4; O2SAT 96–99
[2021-08-30] MEDS: Heparin Sodium,Porcine Flush 50 UNITS, 0.9 % Sodium Chloride Flush 5 ML IVFLUSH ×4 (00:27→23:26)
[2021-08-30] MEDS: 0.9 % Sodium Chloride Flush 3 ML SYRINGE IVFLUSH ×3 (00:27→14:40)
[2021-08-30] MEDS: HYDROmorphone HCl 2 MG/ML VIAL 1 MG IVPUSH ×5 (00:28→21:12)
[2021-08-30] MEDS: oxyCODONE HCl Immed Release 5 MG TABLET 10 MG PO ×3 (06:51→17:56)
[2021-08-30] MEDS: Acetaminophen 325 MG TABLET 650 MG PO ×2 (06:51→16:44)
[2021-08-30 07:49] LABS: Glucose, Whole Blood 120 mg/dL (60-115)
[2021-08-30] MEDS: amLODIPine Besylate 10 MG TABLET PO (08:29)
[2021-08-30] MEDS: lisinopriL 20 MG TABLET PO (08:29)
[2021-08-30] MEDS: Gabapentin 600 MG TABLET PO ×3 (08:29→21:13)
[2021-08-30] MEDS: Metoprolol Succinate ER 50 MG TAB.ER.24H PO (08:30)
[2021-08-30] MEDS: Clopidogrel Bisulfate 75 MG TABLET PO (08:30)
[2021-08-30] MEDS: Aspirin 81 MG TAB.CHEW PO (08:30)
[2021-08-30] MEDS: Collagenase Clostridium Hist. 30 GM TUBE 1 APPL TOPICAL (08:37)
--- NOTE | 2021-08-30 09:44 | MHC.CM.PN ---
NURSE EEO OFFICER NOTE SPOKE WITH HOSPITALIST Joanne THEY HAVE CONCERNS REGARDING OPERATIVE SITE AND ARE AWAITING VASCULAR SURGICAL FOLLOW UP, , CLINICAL UPDATES SENT TO REFERRING FACILITIES.
[2021-08-30 11:58] LABS: Glucose, Whole Blood 122 mg/dL (60-115)
--- NOTE | 2021-08-30 15:09 | HO.PM.IMPN ---
Subjective Subjective Date of Service: 08/30/21 Review of Systems follow up for diabetic foot wound no overnight events feeling well this morning, pain is better Physical Exam Vital Signs: Vital Signs: Last Vital Signs Temp 97.5 F 08/30/21 08:00 Pulse 88 08/30/21 08:30 Resp 19 08/30/21 08:00 BP 163/89 H 08/30/21 08:30 Pulse Ox 99 08/30/21 08:00 BMI result Body Mass Index 29.9 Appearing in no acute distress lung sounds are clear to auscultation heart regular rate rhythm, clear S1, S2 positive bowel sounds, abdomen is soft, nontender neuro patient is alert x3, no focal deficits Objective Data Active Medications Acetaminophen (Acetaminophen 325 Mg Tablet) 650 mg PO Q6H PRN PRN Reason: Pain, Mild (Pain Scale 1-3) Last Admin: 08/30/21 06:51 Dose: 650 mg Documented by: TARIQ Albuterol Sulfate (Albuterol Sulfate (0.083%) 2.5 Mg/3 Ml Vial.Neb) 2.5 mg INHALE ONCE PRN PRN Reason: Wheezing Amlodipine Besylate (Amlodipine Besylate 10 Mg Tablet) 10 mg PO DAILY [facility]; Protocol Last Admin: 08/30/21 08:29 Dose: 10 mg Documented by: JUAN CARLOS Aspirin (Aspirin 81 Mg Tab.Chew) 81 mg PO DAILY [facility] Last Admin: 08/30/21 08:30 Dose: 81 mg Documented by: JUAN CARLOS Atorvastatin Calcium (Atorvastatin Calcium 20 Mg Tablet) 20 mg PO BEDTIME [facility] Last Admin: 08/29/21 20:54 Dose: 20 mg Documented by: GABBY Clopidogrel Bisulfate (Clopidogrel Bisulfate 75 Mg Tablet) 75 mg PO DAILY [facility] Last Admin: 08/30/21 08:30 Dose: 75 mg Documented by: JUAN CARLOS Collagenase (Collagenase Clostridium Hist. 30 Gm Tube) 1 appl TOPICAL DAILY [facility]; Protocol Last Admin: 08/30/21 08:37 Dose: 1 appl Documented by: JUAN CARLOS Heparin Sodium (Porcine) 50 (units/ Sodium Chloride 5 ml) 0 units IVFLUSH QSHIFT [facility] Last Admin: 08/30/21 08:30 Dose: 50 unit Documented by: JUAN CARLOS Enoxaparin Sodium (Enoxaparin Sodium 40 Mg/0.4 Ml Syringe) 40 mg SUBCUT Q24H [facility] Last Admin: 08/29/21 18:31 Dose: 40 mg Documented by: MAXIMO Gabapentin (Gabapentin 600 Mg Tablet) 600 mg PO TID [facility] Last Admin: 08/30/21 14:39 Dose: 600 mg Documented by: JUAN CARLOS Hydromorphone HCl (Hydromorphone Hcl 2 Mg/Ml Vial) 1 mg IVPUSH Q3H PRN; Protocol PRN Reason: Pain, Severe (Pain Scale 7-10) Last Admin: 08/30/21 14:39 Dose: 1 mg Documented by: JUAN CARLOS Meropenem 1 gm/ Sodium (Chloride) 100 mls @ 100 mls/hr IV Q8H [facility] Last Infusion: 08/30/21 13:52 Dose: 0 mls/hr Documented by: JUAN CARLOS Insulin Glargine (Insulin Glargine,Hum.Rec.Anlog 100 Unit/Ml 10 Ml Vial) 30 unit SUBCUT BEDTIME [facility] Last Admin: 08/29/21 20:55 Dose: 30 unit Documented by: GABBY Insulin Human Lispro (Insulin Lispro 100 Unit/Ml 3 Ml Vial) 0 unit SUBCUT QIDACHS [facility]; Protocol Last Admin: 08/30/21 12:10 Dose: Not Given Documented by: JUAN CARLOS Non-Admin Reason: No Insulin Coverage Lisinopril (Lisinopril 20 Mg Tablet) 20 mg PO DAILY [facility]; Protocol Last Admin: 08/30/21 08:29 Dose: 20 mg Documented by: JUAN CARLOS Melatonin (Melatonin 3 Mg Tablet) 6 mg PO BEDTIME PRN PRN Reason: Insomnia Last Admin: 08/21/21 20:26 Dose: 6 mg Documented by: GABBY Melatonin (Melatonin 3 Mg Tablet) 6 mg PO BEDTIME [facility] Last Admin: 08/29/21 20:54 Dose: 6 mg Documented by: GABBY Metoprolol Succinate (Metoprolol Succinate Er 50 Mg Tab.Er.24h) 50 mg PO DAILY [facility]; Protocol Last Admin: 08/30/21 08:30 Dose: 50 mg Documented by: JUAN CARLOS Oxycodone HCl (Oxycodone Hcl Immed Release 5 Mg Tablet) 10 mg PO Q6H PRN PRN Reason: Pain, Moderate (Pain Scale 4-6 Last Admin: 08/30/21 12:23 Dose: 10 mg Documented by: TARIQ Pharmacy Consult (Consult Rx Perform Med Rec) 1 each MISCELLANE ONCE PRN PRN Reason: Consult order Sodium Chloride (0.9 % Sodium Chloride Flush 3 Ml Syringe) 3 ml IVFLUSH QSHIFT [facility] Last Admin: 08/30/21 14:40 Dose: 3 ml Documented by: JUAN CARLOS Labs CBC & Chem 7: 08/28/21 05:35 08/28/21 05:35 Labs: Laboratory Results - last 24 hr 08/29/21 08/29/21 08/30/21 15:38 19:29 07:27 POC Glucose 169 H 132 H 120 H 08/30/21 11:33 POC Glucose 122 H Assessment and Plan (1) Cellulitis of foot, right: Status: Acute Assessment and Plan: This is a 56 year old male with diabetes here with post amputation of right big toe site cellulitis Cellulitis of right great toe amputation site/diabetic foot infection s/p right great toe amputation 08/09, excisional debridement 08/23, s/p right great toe ray amputation 08/26 wound culture from 08/23, 08/26 growing citrobacter freundii Blood cultures negative PICC line placed 08/23, will likely not need abx after BKA vascular surgery following OR tomorrow for BKA, NPO Left heel ulcer related to peripheral vascular disease, diabetes continue santyl, local wound care vascular surgery following, no need for debridement at this time HTN. bp elevated continue metoprolol, norvasc, lisinopril CAD continue antiplatlets , metoprolol,and atorvastatin DM2 continue Lantus and SSI neuropathy continue gabapentin DVT prophylaxis with Lovenox Attending Dr. Baig Quality Stroke Does the patient have a stroke diagnosis?: No VTE Prior VTE?: No VTE Risk Level:: Medical - moderate - high VTE Device Contraindication: Treatment Not Indicated VTE Drug Contraindication: N/A - Med Ordered
--- NOTE | 2021-08-30 15:47 | P.PNVS_ITS ---
Subjective Subjective Date of Service: 08/30/21 Patient reports: no new complaints and still having pain Interval history: Patient seen and examined. Events over the weekend noted. He continues to have this nonhealing foot ulcer. In addition he has intractable pa in. He has undergone a ray amputation. Flap does not appear to be viable. He is now for vascular follow-up. Physical Exam Vital Signs: Vital Signs: Last Vital Signs Temp 96.9 F 08/30/21 15: Pulse 85 08/30/21 15: Resp 20 08/30/21 15: BP 141/67 H 08/30/21 15: Pulse Ox 96 08/30/21 15:22 BMI result Body Mass Index 29.9 Const: General: cooperative, healthy appearing and no acute distress Orientation/consciousness: oriented to person, oriented to place and oriented to time HENMT: Head: Yes normal to inspection Neck: Carotids: no bruits Chest: Chest palpation & inspection: normal inspection of the chest Resp: Effort & Inspection: normal respiratory effort and able to speak in complete sentences Auscultation: clear to auscultation bilaterally Cardio: Rate: regular rate Heart sounds: S1 normal heart sound present and S2 normal heart sound present GI: Inspection: Yes normal to inspection Skin: Other: Right foot amputation site black and in necrotic flap with surrounding cellulitis. General skin exam: no rashes or lesions noted Wounds: no wounds Neuro: General: oriented to person, oriented to place, oriented to time and CN's II-XI intact bilaterally Extrem: General: Yes normal to inspection, Yes full ROM and Yes no clubbing, cyanosis or edema Psych: Appearance: grossly normal and well kempt Speech and movement: Normal speech and movement present Affect: normal affect Progress Note: A&P Assessment and plan (1) Diabetic foot ulcer: Status: Acute Assessment and Plan: In short patient has a nonhealing foot amputation site. Continues to be a source of pain and discomfort. He has a black and necrotic flap. My fear is this entire foot is nonviable. I discussed these findings with the patient and the patient's daughter. He will require right below-knee amputation. We will reassess the situation in the morning. He would like to discuss this with his family 1st. Thank you for allowing us to assist in his care. If there are any questions or concerns please do not hesitate to contact us. Fall Risk Details Current Medications: Current Medications Acetaminophen (Acetaminophen 325 Mg Tablet) 650 mg PO Q6H PRN PRN Reason: Pain, Mild (Pain Scale 1-3) Last Admin: 08/30/21 06:51 Dose: 650 mg Documented by: Albuterol Sulfate (Albuterol Sulfate (0.083%) 2.5 Mg/3 Ml Vial.Neb) 2.5 mg INHALE ONCE PRN PRN Reason: Wheezing Amlodipine Besylate (Amlodipine Besylate 10 Mg Tablet) 10 mg PO DAILY [facility]; Protocol Last Admin: 08/30/21 08:29 Dose: 10 mg Documented by: Aspirin (Aspirin 81 Mg Tab.Chew) 81 mg PO DAILY [facility] Last Admin: 08/30/21 08:30 Dose: 81 mg Documented by: Atorvastatin Calcium (Atorvastatin Calcium 20 Mg Tablet) 20 mg PO BEDTIME [facility] Last Admin: 08/29/21 20:54 Dose: 20 mg Documented by: Clopidogrel Bisulfate (Clopidogrel Bisulfate 75 Mg Tablet) 75 mg PO DAILY [facility] Last Admin: 08/30/21 08:30 Dose: 75 mg Documented by: Collagenase (Collagenase Clostridium Hist. 30 Gm Tube) 1 appl TOPICAL DAILY [facility]; Protocol Last Admin: 08/30/21 08:37 Dose: 1 appl Documented by: Heparin Sodium (Porcine) 50 (units/ Sodium Chloride 5 ml) 0 units IVFLUSH QSHIFT [facility] Last Admin: 08/30/21 08:30 Dose: 50 unit Documented by: Enoxaparin Sodium (Enoxaparin Sodium 40 Mg/0.4 Ml Syringe) 40 mg SUBCUT Q24H [facility] Last Admin: 08/29/21 18:31 Dose: 40 mg Documented by: Gabapentin (Gabapentin 600 Mg Tablet) 600 mg PO TID [facility] Last Admin: 08/30/21 14:39 Dose: 600 mg Documented by: Hydromorphone HCl (Hydromorphone Hcl 2 Mg/Ml Vial) 1 mg IVPUSH Q3H PRN; Protocol PRN Reason: Pain, Severe (Pain Scale 7-10) Last Admin: 08/30/21 14:39 Dose: 1 mg Documented by: Meropenem 1 gm/ Sodium (Chloride) 100 mls @ 100 mls/hr IV Q8H [facility] Last Infusion: 08/30/21 13:52 Dose: Infused Documented by: Insulin Glargine (Insulin Glargine,Hum.Rec.Anlog 100 Unit/Ml 10 Ml Vial) 30 unit SUBCUT BEDTIME [facility] Last Admin: 08/29/21 20:55 Dose: 30 unit Documented by: Insulin Human Lispro (Insulin Lispro 100 Unit/Ml 3 Ml Vial) 0 unit SUBCUT QIDACHS [facility]; Protocol Last Admin: 08/30/21 12:10 Dose: Not Given Documented by: Lisinopril (Lisinopril 20 Mg Tablet) 20 mg PO DAILY [facility]; Protocol Last Admin: 08/30/21 08:29 Dose: 20 mg Documented by: Melatonin (Melatonin 3 Mg Tablet) 6 mg PO BEDTIME PRN PRN Reason: Insomnia Last Admin: 08/21/21 20:26 Dose: 6 mg Documented by: Melatonin (Melatonin 3 Mg Tablet) 6 mg PO BEDTIME [facility] Last Admin: 08/29/21 20:54 Dose: 6 mg Documented by: Metoprolol Succinate (Metoprolol Succinate Er 50 Mg Tab.Er.24h) 50 mg PO DAILY [facility]; Protocol Last Admin: 08/30/21 08:30 Dose: 50 mg Documented by: Oxycodone HCl (Oxycodone Hcl Immed Release 5 Mg Tablet) 10 mg PO Q6H PRN PRN Reason: Pain, Moderate (Pain Scale 4-6 Last Admin: 08/30/21 12:23 Dose: 10 mg Documented by: Pharmacy Consult (Consult Rx Perform Med Rec) 1 each MISCELLANE ONCE PRN PRN Reason: Consult order Sodium Chloride (0.9 % Sodium Chloride Flush 3 Ml Syringe) 3 ml IVFLUSH QSHIFT [facility] Last Admin: 08/30/21 14:40 Dose: 3 ml Documented by: Time Spent With Patient Time: Total time spent is greater than 50% in coordination of care (as documented) at patient's floor/unit and/or counseling patient: Time with patient: 15 - 24 minutes Procedures Date of Service Date of Service: 08/30/21 Quality Stroke Does the patient have a stroke diagnosis?: No VTE Prior VTE?: No VTE Risk Level:: Medical - moderate - high VTE Device Contraindication: Treatment Not Indicated VTE Drug Contraindication: N/A - Med Ordered
[2021-08-30 16:11] LABS: Glucose, Whole Blood 155 mg/dL (60-115)
[2021-08-30] MEDS: Insulin Lispro 100 UNIT/ML 3 ML VIAL SUBCUT ×2 (16:45→21:10)
[2021-08-30] MEDS: Enoxaparin Sodium 40 MG/0.4 ML SYRINGE SUBCUT (17:07)
[2021-08-30 19:53] LABS: Glucose, Whole Blood 155 mg/dL (60-115)
[2021-08-30] MEDS: Insulin Glargine,Hum.rec.anlog 100 UNIT/ML 10 ML VIAL 30 UNIT SUBCUT (21:11)
[2021-08-30] MEDS: Atorvastatin Calcium 20 MG TABLET PO (21:13)
[2021-08-30] MEDS: Melatonin 3 MG TABLET 6 MG PO (21:13)
--- NOTE | 2021-08-30 22:35 | P.PNID_ITS ---
Subjective Subjective Date of Service: 08/30/21 Interval History: he still has blackened area right foot near blanca Critical Care Time (minutes): 15 Comment: he has redness and blackness right op site Objective Data Labs CBC & Chem 7: 09/03/21 05:34 09/03/21 05:34 Labs: Laboratory Results - last 24 hr 08/30/21 08/30/21 08/30/21 07:27 11:33 16:01 POC Glucose 120 H 122 H 155 H Blood Type Antibody Screen 08/30/21 08/30/21 16:28 19:44 POC Glucose 155 H Blood Type A Positive Antibody Screen NEGATIVE Microbiology Microbiology Results: Microbiology 08/26/21 Unknown Toe Right Great Gram Stain - Final 08/26/21 Unknown Toe Right Great Routine Culture - Final Citrobacter freundii 08/23/21 Unknown Foot Right Gram Stain - Final 08/23/21 Unknown Foot Right Routine Culture - Final Citrobacter freundii 08/18/21 11:06 Blood - Venous Blood Culture - Final No growth after 5 days. 08/18/21 11:06 Blood - Venous Blood Culture - Final No growth after 5 days. Physical Exam Verdana 4l Vital Signs: Verdana 4d Verdana 4d Vital Signs: Verdana 4d Verdana 4Bd Last Vital Signs Verdana 4d Process Helper New 4d Process Helper New 4d Temp 96.9 F 08/30/21 15:22 Process Helper New 4d Pulse 85 08/30/21 15:22 Process Helper New 4d Resp 18 08/30/21 21:12 BP 145/72 H 08/30/21 21:10 Pulse Ox 96 08/30/21 15:22 BMI result Body Mass Index 29.9 Const: General: cooperative Eyes: General: appearance normal, both eyes and all related structures Resp: Effort & Inspection: normal respiratory effort Cardio: Rate: regular rate Rhythm: regular rhythm Extrem: Other: darkened area right foot at staple near second digit Assessment and Plan Assessment and plan (1) Cellulitis of foot, right: Status: Resolved Assessment and Plan: The foot is necrotic and unlikely to heal Plan If no further surgery done would give six weeks IV Ertapenem but unlikely to work Time Spent With Patient Time: Total time spent is greater than 50% in coordination of care (as documented) at patient's floor/unit and/or counseling patient: Time with patient: 15 - 24 minutes
[2021-08-31] VITALS (18 sets, daily range): BP systolic 129–188; BP diastolic 57–141; PULSE 67–88; RESP 14–22; TEMP 36.1–37.6; O2SAT 98–100
[2021-08-31] MEDS: HYDROmorphone HCl 2 MG/ML VIAL 1 MG IVPUSH ×7 (00:25→23:56)
[2021-08-31 07:40] LABS: Glucose, Whole Blood 142 mg/dL (60-115)
[2021-08-31] MEDS: 0.9 % Sodium Chloride Flush 3 ML SYRINGE IVFLUSH ×2 (07:59→15:43)
[2021-08-31] MEDS: Heparin Sodium,Porcine Flush 50 UNITS, 0.9 % Sodium Chloride Flush 5 ML IVFLUSH ×2 (07:59→15:42)
[2021-08-31] MEDS: Gabapentin 600 MG TABLET PO ×3 (08:00→19:38)
[2021-08-31] MEDS: lisinopriL 20 MG TABLET PO (08:00)
[2021-08-31] MEDS: Aspirin 81 MG TAB.CHEW PO (08:00)
[2021-08-31] MEDS: Metoprolol Succinate ER 50 MG TAB.ER.24H PO (08:00)
[2021-08-31] MEDS: amLODIPine Besylate 10 MG TABLET PO (08:00)
--- NOTE | 2021-08-31 09:22 | MHC.SHP ---
Pre-Procedural Eval Section A Date of Service: 08/31/21 The patient is an INPATIENT: Yes The History & Physical has been completed within 30 days and I have reviewed it.: Yes Section B Chief Complaint: cellulitis of the foot Allergies: Allergies Allergy/AdvReac Type Severity Reaction Status Date / Time No Known Allergies Allergy Verified 07/29/21 13:22 [No Known Allergies*] Plan I have reviewed the history and physical and performed a pertinent physical examination on my patient. No changes have occurred unless specified.
--- NOTE | 2021-08-31 09:23 | HO.VASCPN ---
Subjective Subjective Date of Service: 08/31/21 Patient reports: no new complaints and still having pain Interval history: Very pleasant 56-year-old gentleman is for follow-up regarding right great toe ray amputation. It continues to fail to heal. Flap is necrotic and nonviable. There is surrounding cellulitis. He has increasing pain. We did discussion amputation options yesterday. He has discussed this with his family and is in agreement this morning. He is now for vascular follow-up. Physical Exam Vital Signs: Vital Signs: Last Vital Signs Temp 98.1 F 08/31/21 07:28 Pulse 78 08/31/21 07:28 Resp 17 08/31/21 07:28 BP 142/65 H 08/31/21 07:28 Pulse Ox 99 08/31/21 07:28 BMI result Body Mass Index 29.9 Const: General: cooperative, healthy appearing and no acute distress Orientation/consciousness: oriented to person, oriented to place and oriented to time HENMT: Head: Yes normal to inspection Neck: Carotids: no bruits Chest: Chest palpation & inspection: normal inspection of the chest Resp: Effort & Inspection: normal respiratory effort and able to speak in complete sentences Auscultation: clear to auscultation bilaterally Cardio: Rate: regular rate Heart sounds: S1 normal heart sound present and S2 normal heart sound present GI: Inspection: Yes normal to inspection Skin: General skin exam: no rashes or lesions noted Wounds: amputation site (Right great toe nonviable amputation site) Neuro: General: oriented to person, oriented to place, oriented to time and CN's II-XI intact bilaterally Extrem: General: Yes normal to inspection, Yes full ROM and Yes no clubbing, cyanosis or edema Psych: Appearance: grossly normal and well kempt Speech and movement: Normal speech and movement present Affect: normal affect Progress Note: A&P Assessment and plan (1) Diabetic foot ulcer: Status: Acute Assessment and Plan: In short patient has nonhealing ulcer of the right great toe amputation site and surrounding cellulitis. This continues to progress. I have discussed this with the patient and due to the intractable pain and nonhealing wound we have decided to proceed with a right below-knee amputation. Risks benefits complications were discussed in detail with the patient today. This was also discussed with the patient and daughter yesterday. They are in agreement and would like to proceed. We will schedule for today as soon as possible. Thank you for allowing us to assist in his care. Fall Risk Details Current Medications: Current Medications Acetaminophen (Acetaminophen 325 Mg Tablet) 650 mg PO Q6H PRN PRN Reason: Pain, Mild (Pain Scale 1-3) Last Admin: 08/30/21 16:44 Dose: 650 mg Documented by: Albuterol Sulfate (Albuterol Sulfate (0.083%) 2.5 Mg/3 Ml Vial.Neb) 2.5 mg INHALE ONCE PRN PRN Reason: Wheezing Amlodipine Besylate (Amlodipine Besylate 10 Mg Tablet) 10 mg PO DAILY [facility]; Protocol Last Admin: 08/31/21 08:00 Dose: 10 mg Documented by: Aspirin (Aspirin 81 Mg Tab.Chew) 81 mg PO DAILY [facility] Last Admin: 08/31/21 08:00 Dose: 81 mg Documented by: Atorvastatin Calcium (Atorvastatin Calcium 20 Mg Tablet) 20 mg PO BEDTIME [facility] Last Admin: 08/30/21 21:13 Dose: 20 mg Documented by: Clopidogrel Bisulfate (Clopidogrel Bisulfate 75 Mg Tablet) 75 mg PO DAILY [facility] Last Admin: 08/31/21 08:06 Dose: Not Given Documented by: Collagenase (Collagenase Clostridium Hist. 30 Gm Tube) 1 appl TOPICAL DAILY [facility]; Protocol Last Admin: 08/30/21 08:37 Dose: 1 appl Documented by: Heparin Sodium (Porcine) 50 (units/ Sodium Chloride 5 ml) 0 units IVFLUSH QSHIFT [facility] Last Admin: 08/31/21 07:59 Dose: 50 unit Documented by: Enoxaparin Sodium (Enoxaparin Sodium 40 Mg/0.4 Ml Syringe) 40 mg SUBCUT Q24H [facility] Last Admin: 08/30/21 17:07 Dose: 40 mg Documented by: Gabapentin (Gabapentin 600 Mg Tablet) 600 mg PO TID [facility] Last Admin: 08/31/21 08:00 Dose: 600 mg Documented by: Hydromorphone HCl (Hydromorphone Hcl 2 Mg/Ml Vial) 1 mg IVPUSH Q3H PRN; Protocol PRN Reason: Pain, Severe (Pain Scale 7-10) Last Admin: 08/31/21 08:02 Dose: 1 mg Documented by: Meropenem 1 gm/ Sodium (Chloride) 100 mls @ 100 mls/hr IV Q8H [facility] Last Infusion: 08/31/21 06:10 Dose: Infused Documented by: Insulin Glargine (Insulin Glargine,Hum.Rec.Anlog 100 Unit/Ml 10 Ml Vial) 30 unit SUBCUT BEDTIME [facility] Last Admin: 08/30/21 21:11 Dose: 30 unit Documented by: Insulin Human Lispro (Insulin Lispro 100 Unit/Ml 3 Ml Vial) 0 unit SUBCUT QIDACHS [facility]; Protocol Last Admin: 08/31/21 07:32 Dose: Not Given Documented by: Lisinopril (Lisinopril 20 Mg Tablet) 20 mg PO DAILY [facility]; Protocol Last Admin: 08/31/21 08:00 Dose: 20 mg Documented by: Melatonin (Melatonin 3 Mg Tablet) 6 mg PO BEDTIME PRN PRN Reason: Insomnia Last Admin: 08/21/21 20:26 Dose: 6 mg Documented by: Melatonin (Melatonin 3 Mg Tablet) 6 mg PO BEDTIME [facility] Last Admin: 08/30/21 21:13 Dose: 6 mg Documented by: Metoprolol Succinate (Metoprolol Succinate Er 50 Mg Tab.Er.24h) 50 mg PO DAILY [facility]; Protocol Last Admin: 08/31/21 08:00 Dose: 50 mg Documented by: Oxycodone HCl (Oxycodone Hcl Immed Release 5 Mg Tablet) 10 mg PO Q6H PRN PRN Reason: Pain, Moderate (Pain Scale 4-6 Last Admin: 08/30/21 17:56 Dose: 10 mg Documented by: Pharmacy Consult (Consult Rx Perform Med Rec) 1 each MISCELLANE ONCE PRN PRN Reason: Consult order Sodium Chloride (0.9 % Sodium Chloride Flush 3 Ml Syringe) 3 ml IVFLUSH QSHIFT [facility] Last Admin: 08/31/21 07:59 Dose: 3 ml Documented by: Time Spent With Patient Time: Total time spent is greater than 50% in coordination of care (as documented) at patient's floor/unit and/or counseling patient: Time with patient: 15 - 24 minutes Procedures Date of Service Date of Service: 08/31/21 Quality Stroke Does the patient have a stroke diagnosis?: No VTE Prior VTE?: No VTE Risk Level:: Medical - moderate - high VTE Device Contraindication: Treatment Not Indicated VTE Drug Contraindication: N/A - Med Ordered
[2021-08-31 11:21] LABS: Glucose, Whole Blood 130 mg/dL (60-115)
--- NOTE | 2021-08-31 11:47 | HO.ANESPROP2 ---
[facility] Active Problems Active Problems: All Active Problems (Updated 08/25/21 @ 00:03 by Lavell Barnett) Cellulitis of foot, right (Acute) Acute pain of right foot (Acute) Acute hyperglycemia (Acute) Calculus of distal right ureter (Acute) Plantar fasciitis (Acute) Plantar fasciitis (Acute) Cellulitis of left foot (Acute) Ulcer of left heel (Acute) Diabetic foot ulcer (Acute) Non-healing ulcer of foot (Acute) Intractable heel pain (Acute) Diabetic foot ulcer (Acute) Diabetic foot ulcer (Acute) Intractable left heel pain (Acute) Chronic pancreatitis (Acute) Diabetes mellitus with hyperglycemia, with long-term current use of insulin (Acute) Hx of heart artery stent (Acute) Arthritis (Acute) Increased BMI (Acute) Status post laparoscopic cholecystectomy (Acute) Past Medical History Medical History Alcohol abuse Amputation stump complication Arthritis CAD (coronary artery disease) Chronic pancreatitis Chronic 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 Diabetes mellitus with hyperglycemia, with long-term current use of insulin Essential hypertension Failure of outpatient treatment Hyperlipidemia Increased BMI Intractable left heel pain Kidney calculus Neuropathy PAD (peripheral artery disease) Type 2 diabetes mellitus with diabetic polyneuropathy Type 2 diabetes mellitus with hyperglycemia Family History Family History Mother [place] (myocardial infarction), Onset Age: 64 Diabetes mellitus HTN (hypertension) Maternal Grandmother Diabetes mellitus Family history of problems with anesthesia: No Surgical History Surgical History Hx of heart artery stent Hx of lithotripsy S/P debridement Status post laparoscopic cholecystectomy History of Problems with Anesthesia: No Social History Social History Household Members: Spouse Household Members Other:: and daughter Housing: Apartment Do you presently have visiting nurse or other home services: Yes (vna) Alcohol intake: current Alcohol intake frequency: does not drink Patient Tobacco Use Status: Former Tobacco user Quit Date: 3 weeks ago Tobacco use type: Cigarette Cigarette Packs Per Day: 1 Cigarettes Per Day: 20.0 Years Smoked: 28 Second Hand Smoke Exposure: Yes Use of substances other than those prescribed or required for medical reasons: No Substance Use Type: Marijuana Currently Displaying Signs/Symptoms of Drug Intoxication Withdrawal: No Have you been hit, kicked, punched, or otherwise hurt by someone within the past year? If so, by whom?: No Do you feel safe in your current relationship?: No Is there a partner from a previous relationship who is making you feel unsafe now?: No Are you made to feel afraid or neglected: No Are you DNR?: No Advance Directives: No Advance Directives Information Provided: Yes Advance Directives Date on File: 04/17/21 Do you have thoughts of harming others: None Do you have a plan to hurt others: No Plan Recently lost weight without trying: No Nutrition Risks: No Nutritional Risk Poor oral hygiene: No service: No Current occupational status: unemployed Meds Allergies Allergy/AdvReac Type Severity Reaction Status Date / Time No Known Allergies Allergy Verified 07/29/21 13:22 [No Known Allergies*] Active Medications: Current Medications Acetaminophen (Acetaminophen 325 Mg Tablet) 650 mg PO Q6H PRN PRN Reason: Pain, Mild (Pain Scale 1-3) Last Admin: 08/30/21 16:44 Dose: 650 mg Documented by: Albuterol Sulfate (Albuterol Sulfate (0.083%) 2.5 Mg/3 Ml Vial.Neb) 2.5 mg INHALE ONCE PRN PRN Reason: Wheezing Amlodipine Besylate (Amlodipine Besylate 10 Mg Tablet) 10 mg PO DAILY [facility]; Protocol Last Admin: 08/31/21 08:00 Dose: 10 mg Documented by: Aspirin (Aspirin 81 Mg Tab.Chew) 81 mg PO DAILY [facility] Last Admin: 08/31/21 08:00 Dose: 81 mg Documented by: Atorvastatin Calcium (Atorvastatin Calcium 20 Mg Tablet) 20 mg PO BEDTIME [facility] Last Admin: 08/30/21 21:13 Dose: 20 mg Documented by: Clopidogrel Bisulfate (Clopidogrel Bisulfate 75 Mg Tablet) 75 mg PO DAILY [facility] Last Admin: 08/31/21 08:06 Dose: Not Given Documented by: Collagenase (Collagenase Clostridium Hist. 30 Gm Tube) 1 appl TOPICAL DAILY [facility]; Protocol Last Admin: 08/31/21 09:32 Dose: Not Given Documented by: Heparin Sodium (Porcine) 50 (units/ Sodium Chloride 5 ml) 0 units IVFLUSH QSHIFT [facility] Last Admin: 08/31/21 07:59 Dose: 50 unit Documented by: Enoxaparin Sodium (Enoxaparin Sodium 40 Mg/0.4 Ml Syringe) 40 mg SUBCUT Q24H [facility] Last Admin: 08/30/21 17:07 Dose: 40 mg Documented by: Gabapentin (Gabapentin 600 Mg Tablet) 600 mg PO TID [facility] Last Admin: 08/31/21 08:00 Dose: 600 mg Documented by: Hydromorphone HCl (Hydromorphone Hcl 2 Mg/Ml Vial) 1 mg IVPUSH Q3H PRN; Protocol PRN Reason: Pain, Severe (Pain Scale 7-10) Last Admin: 08/31/21 11:04 Dose: 1 mg Documented by: Meropenem 1 gm/ Sodium (Chloride) 100 mls @ 100 mls/hr IV Q8H [facility] Last Infusion: 08/31/21 06:10 Dose: Infused Documented by: Insulin Glargine (Insulin Glargine,Hum.Rec.Anlog 100 Unit/Ml 10 Ml Vial) 30 unit SUBCUT BEDTIME [facility] Last Admin: 08/30/21 21:11 Dose: 30 unit Documented by: Insulin Human Lispro (Insulin Lispro 100 Unit/Ml 3 Ml Vial) 0 unit SUBCUT QIDACHS [facility]; Protocol Last Admin: 08/31/21 11:23 Dose: Not Given Documented by: Lisinopril (Lisinopril 20 Mg Tablet) 20 mg PO DAILY [facility]; Protocol Last Admin: 08/31/21 08:00 Dose: 20 mg Documented by: Melatonin (Melatonin 3 Mg Tablet) 6 mg PO BEDTIME PRN PRN Reason: Insomnia Last Admin: 08/21/21 20:26 Dose: 6 mg Documented by: Melatonin (Melatonin 3 Mg Tablet) 6 mg PO BEDTIME [facility] Last Admin: 08/30/21 21:13 Dose: 6 mg Documented by: Metoprolol Succinate (Metoprolol Succinate Er 50 Mg Tab.Er.24h) 50 mg PO DAILY [facility]; Protocol Last Admin: 08/31/21 08:00 Dose: 50 mg Documented by: Oxycodone HCl (Oxycodone Hcl Immed Release 5 Mg Tablet) 10 mg PO Q6H PRN PRN Reason: Pain, Moderate (Pain Scale 4-6 Last Admin: 08/30/21 17:56 Dose: 10 mg Documented by: Pharmacy Consult (Consult Rx Perform Med Rec) 1 each MISCELLANE ONCE PRN PRN Reason: Consult order Sodium Chloride (0.9 % Sodium Chloride Flush 3 Ml Syringe) 3 ml IVFLUSH QSHIFT [facility] Last Admin: 08/31/21 07:59 Dose: 3 ml Documented by: Home Medications Medication Instructions Recorded Confirmed Last Taken Type atorvastatin 20 mg tablet 1 tab PO BEDTIME 03/24/21 08/18/21 08/16/21 History insulin glargine 100 unit/mL (3 30 unit SUBCUT BEDTIME ml 05/06/21 08/18/21 08/16/21 History mL) subcutaneous pen (Lantus Solostar U-100 Insulin) empagliflozin 25 mg tablet 1 tab PO DAILY 08/14/21 08/18/21 08/17/21 History (Jardiance) Exam Exam Date and Time: August 31, 2021 114 Height,Weight and Vital Signs: Height 5 ft 5 in Weight 81.647 kg Last Vital Signs Temp 97.7 F 08/31/21 11:39 Pulse 67 08/31/21 11:39 Resp 18 08/31/21 11:39 BP 150/82 H 08/31/21 11:39 Pulse Ox 98 08/31/21 11:39 Pertinent Lab Results Pertinent Lab Results: Laboratory Tests 08/18/21 08/18/21 08/18/21 11:06 11:06 11:06 WBC RBC Hgb Hct MCV MCH MCHC RDW Plt Count MPV Immature Gran % (Auto) Neut % (Auto) Lymph % (Auto) [place] % (Auto) Eos % (Auto) Baso % (Auto) Lymph # (Auto) [place] # (Auto) Eos # (Auto) Baso # (Auto) Abs Immat Gran (auto) Absolute Neuts (auto) Absolute Nucleated RBC Nucleated RBC % (auto) ESR 77 H PT 12.9 INR 1.1 APTT 30.2 Sodium Potassium Chloride Carbon Dioxide Anion Gap BUN Creatinine Estim Creat Clear Calc Estimated GFR POC Glucose Random Glucose Lactic Acid Calcium Total Bilirubin AST ALT Alkaline Phosphatase C-Reactive Protein Total Protein Albumin Lipase Vancomycin Trough Random Vancomycin Influenza Type A (PCR) NEGATIVE Influenza Type B (PCR) NEGATIVE RSV RNA Qual (PCR) NEGATIVE SARS-CoV-2 RNA (RT-PCR) NEGATIVE Blood Type Antibody Screen 08/18/21 08/18/21 08/18/21 11:06 11:07 11:07 WBC 11.7 H RBC 5.01 Hgb 12.9 L Hct 40.7 L MCV 81.2 MCH 25.7 L MCHC 31.7 RDW 14.7 Plt Count 268 MPV 10.4 Immature Gran % (Auto) 0.4 Neut % (Auto) 71.5 Lymph % (Auto) 12.2 L [place] % (Auto) 12.5 H Eos % (Auto) 3.1 Baso % (Auto) 0.3 Lymph # (Auto) 1.4 [place] # (Auto) 1.5 H Eos # (Auto) 0.4 Baso # (Auto) 0.0 Abs Immat Gran (auto) 0.05 H Absolute Neuts (auto) 8.3 Absolute Nucleated RBC 0.000 Nucleated RBC % (auto) 0.0 ESR PT INR APTT Sodium 137 Potassium 4.0 Chloride 101 Carbon Dioxide 26 Anion Gap 14 BUN 14 Creatinine 0.89 Estim Creat Clear Calc 92.2 Estimated GFR > 60 POC Glucose Random Glucose 241 H D Lactic Acid 1.2 Calcium 9.3 Total Bilirubin 0.4 AST 16 ALT 19 Alkaline Phosphatase 83 C-Reactive Protein 13.99 H Total Protein 7.6 Albumin 3.6 Lipase 16 Vancomycin Trough Random Vancomycin Influenza Type A (PCR) Influenza Type B (PCR) RSV RNA Qual (PCR) SARS-CoV-2 RNA (RT-PCR) Blood Type Antibody Screen 08/18/21 08/18/21 08/19/21 17:51 20:50 03:56 WBC RBC Hgb Hct MCV MCH MCHC RDW Plt Count MPV Immature Gran % (Auto) Neut % (Auto) Lymph % (Auto) [place] % (Auto) Eos % (Auto) Baso % (Auto) Lymph # (Auto) [place] # (Auto) Eos # (Auto) Baso # (Auto) Abs Immat Gran (auto) Absolute Neuts (auto) Absolute Nucleated RBC Nucleated RBC % (auto) ESR PT INR APTT Sodium Potassium Chloride Carbon Dioxide Anion Gap BUN Creatinine Estim Creat Clear Calc Estimated GFR POC Glucose 127 H 205 H 144 H Random Glucose Lactic Acid Calcium Total Bilirubin AST ALT Alkaline Phosphatase C-Reactive Protein Total Protein Albumin Lipase Vancomycin Trough Random Vancomycin Influenza Type A (PCR) Influenza Type B (PCR) RSV RNA Qual (PCR) SARS-CoV-2 RNA (RT-PCR) Blood Type Antibody Screen 08/19/21 08/19/21 08/19/21 07:23 07:54 11:07 WBC RBC Hgb Hct MCV MCH MCHC RDW Plt Count MPV Immature Gran % (Auto) Neut % (Auto) Lymph % (Auto) [place] % (Auto) Eos % (Auto) Baso % (Auto) Lymph # (Auto) [place] # (Auto) Eos # (Auto) Baso # (Auto) Abs Immat Gran (auto) Absolute Neuts (auto) Absolute Nucleated RBC Nucleated RBC % (auto) ESR PT INR APTT Sodium 135 Potassium 3.9 Chloride 101 Carbon Dioxide 27 Anion Gap 11 L BUN 11 Creatinine 0.78 Estim Creat Clear Calc 105.2 Estimated GFR > 60 POC Glucose 136 H 171 H Random Glucose 134 H D Lactic Acid Calcium 9.1 Total Bilirubin AST ALT Alkaline Phosphatase C-Reactive Protein Total Protein Albumin Lipase Vancomycin Trough Random Vancomycin Influenza Type A (PCR) Influenza Type B (PCR) RSV RNA Qual (PCR) SARS-CoV-2 RNA (RT-PCR) Blood Type Antibody Screen 08/19/21 08/19/21 08/19/21 16:04 20:27 22:04 WBC RBC Hgb Hct MCV MCH MCHC RDW Plt Count MPV Immature Gran % (Auto) Neut % (Auto) Lymph % (Auto) [place] % (Auto) Eos % (Auto) Baso % (Auto) Lymph # (Auto) [place] # (Auto) Eos # (Auto) Baso # (Auto) Abs Immat Gran (auto) Absolute Neuts (auto) Absolute Nucleated RBC Nucleated RBC % (auto) ESR PT INR APTT Sodium Potassium Chloride Carbon Dioxide Anion Gap BUN Creatinine Estim Creat Clear Calc Estimated GFR POC Glucose 249 H 210 H Random Glucose Lactic Acid Calcium Total Bilirubin AST ALT Alkaline Phosphatase C-Reactive Protein Total Protein Albumin Lipase Vancomycin Trough 11.4 Random Vancomycin Influenza Type A (PCR) Influenza Type B (PCR) RSV RNA Qual (PCR) SARS-CoV-2 RNA (RT-PCR) Blood Type Antibody Screen 08/20/21 08/20/21 08/20/21 05:24 07:46 11:32 WBC RBC Hgb Hct MCV MCH MCHC RDW Plt Count MPV Immature Gran % (Auto) Neut % (Auto) Lymph % (Auto) [place] % (Auto) Eos % (Auto) Baso % (Auto) Lymph # (Auto) [place] # (Auto) Eos # (Auto) Baso # (Auto) Abs Immat Gran (auto) Absolute Neuts (auto) Absolute Nucleated RBC Nucleated RBC % (auto) ESR PT INR APTT Sodium 136 Potassium 4.2 Chloride 102 Carbon Dioxide 25 Anion Gap 13 BUN 12 Creatinine 0.81 Estim Creat Clear Calc 101.3 Estimated GFR > 60 POC Glucose 111 113 Random Glucose 137 H Lactic Acid Calcium 9.1 Total Bilirubin AST ALT Alkaline Phosphatase C-Reactive Protein Total Protein Albumin Lipase Vancomycin Trough Random Vancomycin Influenza Type A (PCR) Influenza Type B (PCR) RSV RNA Qual (PCR) SARS-CoV-2 RNA (RT-PCR) Blood Type Antibody Screen 08/20/21 08/20/21 08/21/21 16:37 20:26 06:16 WBC 11.7 H RBC 4.80 Hgb 12.3 L Hct 38.9 L MCV 81.0 MCH 25.6 L MCHC 31.6 RDW 14.6 Plt Count 283 MPV 10.3 Immature Gran % (Auto) Neut % (Auto) Lymph % (Auto) [place] % (Auto) Eos % (Auto) Baso % (Auto) Lymph # (Auto) [place] # (Auto) Eos # (Auto) Baso # (Auto) Abs Immat Gran (auto) Absolute Neuts (auto) Absolute Nucleated RBC 0.000 Nucleated RBC % (auto) 0.0 ESR PT INR APTT Sodium Potassium Chloride Carbon Dioxide Anion Gap BUN Creatinine Estim Creat Clear Calc Estimated GFR POC Glucose 188 H 148 H Random Glucose Lactic Acid Calcium Total Bilirubin AST ALT Alkaline Phosphatase C-Reactive Protein Total Protein Albumin Lipase Vancomycin Trough Random Vancomycin Influenza Type A (PCR) Influenza Type B (PCR) RSV RNA Qual (PCR) SARS-CoV-2 RNA (RT-PCR) Blood Type Antibody Screen 08/21/21 08/21/21 08/21/21 07:05 07:37 10:05 WBC RBC Hgb Hct MCV MCH MCHC RDW Plt Count MPV Immature Gran % (Auto) Neut % (Auto) Lymph % (Auto) [place] % (Auto) Eos % (Auto) Baso % (Auto) Lymph # (Auto) [place] # (Auto) Eos # (Auto) Baso # (Auto) Abs Immat Gran (auto) Absolute Neuts (auto) Absolute Nucleated RBC Nucleated RBC % (auto) ESR PT INR APTT Sodium Potassium Chloride Carbon Dioxide Anion Gap BUN Creatinine 0.78 Estim Creat Clear Calc 105.2 Estimated GFR > 60 POC Glucose 122 H Random Glucose Lactic Acid Calcium Total Bilirubin AST ALT Alkaline Phosphatase C-Reactive Protein Total Protein Albumin Lipase Vancomycin Trough 12.8 Random Vancomycin Influenza Type A (PCR) Influenza Type B (PCR) RSV RNA Qual (PCR) SARS-CoV-2 RNA (RT-PCR) Blood Type Antibody Screen 08/21/21 08/21/21 08/21/21 11:12 15:51 19:22 WBC RBC Hgb Hct MCV MCH MCHC RDW Plt Count MPV Immature Gran % (Auto) Neut % (Auto) Lymph % (Auto) [place] % (Auto) Eos % (Auto) Baso % (Auto) Lymph # (Auto) [place] # (Auto) Eos # (Auto) Baso # (Auto) Abs Immat Gran (auto) Absolute Neuts (auto) Absolute Nucleated RBC Nucleated RBC % (auto) ESR PT INR APTT Sodium Potassium Chloride Carbon Dioxide Anion Gap BUN Creatinine Estim Creat Clear Calc Estimated GFR POC Glucose 83 200 H 97 Random Glucose Lactic Acid Calcium Total Bilirubin AST ALT Alkaline Phosphatase C-Reactive Protein Total Protein Albumin Lipase Vancomycin Trough Random Vancomycin Influenza Type A (PCR) Influenza Type B (PCR) RSV RNA Qual (PCR) SARS-CoV-2 RNA (RT-PCR) Blood Type Antibody Screen 08/21/21 08/22/21 08/22/21 23:35 06:26 06:36 WBC RBC Hgb Hct MCV MCH MCHC RDW Plt Count MPV Immature Gran % (Auto) Neut % (Auto) Lymph % (Auto) [place] % (Auto) Eos % (Auto) Baso % (Auto) Lymph # (Auto) [place] # (Auto) Eos # (Auto) Baso # (Auto) Abs Immat Gran (auto) Absolute Neuts (auto) Absolute Nucleated RBC Nucleated RBC % (auto) ESR PT INR APTT Sodium Potassium Chloride Carbon Dioxide Anion Gap BUN Creatinine 0.78 Estim Creat Clear Calc 105.2 Estimated GFR > 60 POC Glucose 113 114 Random Glucose Lactic Acid Calcium Total Bilirubin AST ALT Alkaline Phosphatase C-Reactive Protein Total Protein Albumin Lipase Vancomycin Trough Random Vancomycin Influenza Type A (PCR) Influenza Type B (PCR) RSV RNA Qual (PCR) SARS-CoV-2 RNA (RT-PCR) Blood Type Antibody Screen 08/22/21 08/22/21 08/22/21 11:45 16:26 19:26 WBC RBC Hgb Hct MCV MCH MCHC RDW Plt Count MPV Immature Gran % (Auto) Neut % (Auto) Lymph % (Auto) [place] % (Auto) Eos % (Auto) Baso % (Auto) Lymph # (Auto) [place] # (Auto) Eos # (Auto) Baso # (Auto) Abs Immat Gran (auto) Absolute Neuts (auto) Absolute Nucleated RBC Nucleated RBC % (auto) ESR PT INR APTT Sodium Potassium Chloride Carbon Dioxide Anion Gap BUN Creatinine Estim Creat Clear Calc Estimated GFR POC Glucose 110 203 H 109 Random Glucose Lactic Acid Calcium Total Bilirubin AST ALT Alkaline Phosphatase C-Reactive Protein Total Protein Albumin Lipase Vancomycin Trough Random Vancomycin Influenza Type A (PCR) Influenza Type B (PCR) RSV RNA Qual (PCR) SARS-CoV-2 RNA (RT-PCR) Blood Type Antibody Screen 08/22/21 08/23/21 08/23/21 21:42 05:47 05:47 WBC 12.5 H RBC 5.13 Hgb 13.2 L Hct 42.1 MCV 82.1 MCH 25.7 L MCHC 31.4 RDW 14.8 Plt Count 334 MPV 10.1 Immature Gran % (Auto) Neut % (Auto) Lymph % (Auto) [place] % (Auto) Eos % (Auto) Baso % (Auto) Lymph # (Auto) [place] # (Auto) Eos # (Auto) Baso # (Auto) Abs Immat Gran (auto) Absolute Neuts (auto) Absolute Nucleated RBC 0.000 Nucleated RBC % (auto) 0.0 ESR PT INR APTT Sodium 138 Potassium 4.4 Chloride 101 Carbon Dioxide 28 Anion Gap 13 BUN 15 Creatinine 0.92 Estim Creat Clear Calc 89.2 Estimated GFR > 60 POC Glucose Random Glucose 110 Lactic Acid Calcium 9.5 Total Bilirubin AST ALT Alkaline Phosphatase C-Reactive Protein Total Protein Albumin Lipase Vancomycin Trough 31.0 H* Random Vancomycin Influenza Type A (PCR) Influenza Type B (PCR) RSV RNA Qual (PCR) SARS-CoV-2 RNA (RT-PCR) Blood Type Antibody Screen 08/23/21 08/23/21 08/23/21 05:47 07:23 11:27 WBC RBC Hgb Hct MCV MCH MCHC RDW Plt Count MPV Immature Gran % (Auto) Neut % (Auto) Lymph % (Auto) [place] % (Auto) Eos % (Auto) Baso % (Auto) Lymph # (Auto) [place] # (Auto) Eos # (Auto) Baso # (Auto) Abs Immat Gran (auto) Absolute Neuts (auto) Absolute Nucleated RBC Nucleated RBC % (auto) ESR PT INR APTT Sodium Potassium Chloride Carbon Dioxide Anion Gap BUN Creatinine Estim Creat Clear Calc Estimated GFR POC Glucose 122 H 74 Random Glucose Lactic Acid Calcium Total Bilirubin AST ALT Alkaline Phosphatase C-Reactive Protein Total Protein Albumin Lipase Vancomycin Trough Random Vancomycin 10.6 L Influenza Type A (PCR) Influenza Type B (PCR) RSV RNA Qual (PCR) SARS-CoV-2 RNA (RT-PCR) Blood Type Antibody Screen 08/23/21 08/23/21 08/24/21 16:10 19:42 05:22 WBC RBC Hgb Hct MCV MCH MCHC RDW Plt Count MPV Immature Gran % (Auto) Neut % (Auto) Lymph % (Auto) [place] % (Auto) Eos % (Auto) Baso % (Auto) Lymph # (Auto) [place] # (Auto) Eos # (Auto) Baso # (Auto) Abs Immat Gran (auto) Absolute Neuts (auto) Absolute Nucleated RBC Nucleated RBC % (auto) ESR PT INR APTT Sodium 135 Potassium 3.9 Chloride 100 Carbon Dioxide 28 Anion Gap 11 L BUN 14 Creatinine 0.83 Estim Creat Clear Calc 98.9 Estimated GFR > 60 POC Glucose 165 H 131 H Random Glucose 92 Lactic Acid Calcium 8.6 D Total Bilirubin AST ALT Alkaline Phosphatase C-Reactive Protein Total Protein Albumin Lipase Vancomycin Trough Random Vancomycin Influenza Type A (PCR) Influenza Type B (PCR) RSV RNA Qual (PCR) SARS-CoV-2 RNA (RT-PCR) Blood Type Antibody Screen 08/24/21 08/24/21 08/24/21 05:22 07:37 11:15 WBC 12.4 H RBC 4.74 Hgb 12.3 L Hct 38.6 L MCV 81.4 MCH 25.9 L MCHC 31.9 RDW 15.1 Plt Count 329 MPV 10.0 Immature Gran % (Auto) Neut % (Auto) Lymph % (Auto) [place] % (Auto) Eos % (Auto) Baso % (Auto) Lymph # (Auto) [place] # (Auto) Eos # (Auto) Baso # (Auto) Abs Immat Gran (auto) Absolute Neuts (auto) Absolute Nucleated RBC 0.000 Nucleated RBC % (auto) 0.0 ESR PT INR APTT Sodium Potassium Chloride Carbon Dioxide Anion Gap BUN Creatinine Estim Creat Clear Calc Estimated GFR POC Glucose 98 113 Random Glucose Lactic Acid Calcium Total Bilirubin AST ALT Alkaline Phosphatase C-Reactive Protein Total Protein Albumin Lipase Vancomycin Trough Random Vancomycin Influenza Type A (PCR) Influenza Type B (PCR) RSV RNA Qual (PCR) SARS-CoV-2 RNA (RT-PCR) Blood Type Antibody Screen 08/24/21 08/24/21 08/24/21 16:20 18:07 19:29 WBC RBC Hgb Hct MCV MCH MCHC RDW Plt Count MPV Immature Gran % (Auto) Neut % (Auto) Lymph % (Auto) [place] % (Auto) Eos % (Auto) Baso % (Auto) Lymph # (Auto) [place] # (Auto) Eos # (Auto) Baso # (Auto) Abs Immat Gran (auto) Absolute Neuts (auto) Absolute Nucleated RBC Nucleated RBC % (auto) ESR PT INR APTT Sodium Potassium Chloride Carbon Dioxide Anion Gap BUN Creatinine Estim Creat Clear Calc Estimated GFR POC Glucose 149 H 164 H Random Glucose Lactic Acid Calcium Total Bilirubin AST ALT Alkaline Phosphatase C-Reactive Protein Total Protein Albumin Lipase Vancomycin Trough 14.3 Random Vancomycin Influenza Type A (PCR) Influenza Type B (PCR) RSV RNA Qual (PCR) SARS-CoV-2 RNA (RT-PCR) Blood Type Antibody Screen 08/25/21 08/25/21 08/25/21 05:34 07:49 11:28 WBC RBC Hgb Hct MCV MCH MCHC RDW Plt Count MPV Immature Gran % (Auto) Neut % (Auto) Lymph % (Auto) [place] % (Auto) Eos % (Auto) Baso % (Auto) Lymph # (Auto) [place] # (Auto) Eos # (Auto) Baso # (Auto) Abs Immat Gran (auto) Absolute Neuts (auto) Absolute Nucleated RBC Nucleated RBC % (auto) ESR PT INR APTT Sodium Potassium Chloride Carbon Dioxide Anion Gap BUN Creatinine 0.82 Estim Creat Clear Calc 100.1 Estimated GFR > 60 POC Glucose 135 H 123 H Random Glucose Lactic Acid Calcium Total Bilirubin AST ALT Alkaline Phosphatase C-Reactive Protein Total Protein Albumin Lipase Vancomycin Trough Random Vancomycin Influenza Type A (PCR) Influenza Type B (PCR) RSV RNA Qual (PCR) SARS-CoV-2 RNA (RT-PCR) Blood Type Antibody Screen 08/25/21 08/25/21 08/26/21 16:26 20:47 06:23 WBC RBC Hgb Hct MCV MCH MCHC RDW Plt Count MPV Immature Gran % (Auto) Neut % (Auto) Lymph % (Auto) [place] % (Auto) Eos % (Auto) Baso % (Auto) Lymph # (Auto) [place] # (Auto) Eos # (Auto) Baso # (Auto) Abs Immat Gran (auto) Absolute Neuts (auto) Absolute Nucleated RBC Nucleated RBC % (auto) ESR PT INR APTT Sodium Potassium Chloride Carbon Dioxide Anion Gap BUN Creatinine 0.78 Estim Creat Clear Calc 105.2 Estimated GFR > 60 POC Glucose 137 H 123 H Random Glucose Lactic Acid Calcium Total Bilirubin AST ALT Alkaline Phosphatase C-Reactive Protein Total Protein Albumin Lipase Vancomycin Trough Random Vancomycin Influenza Type A (PCR) Influenza Type B (PCR) RSV RNA Qual (PCR) SARS-CoV-2 RNA (RT-PCR) Blood Type Antibody Screen 08/26/21 08/26/21 08/26/21 06:23 07:28 09:44 WBC RBC Hgb Hct MCV MCH MCHC RDW Plt Count MPV Immature Gran % (Auto) Neut % (Auto) Lymph % (Auto) [place] % (Auto) Eos % (Auto) Baso % (Auto) Lymph # (Auto) [place] # (Auto) Eos # (Auto) Baso # (Auto) Abs Immat Gran (auto) Absolute Neuts (auto) Absolute Nucleated RBC Nucleated RBC % (auto) ESR PT INR APTT Sodium Potassium Chloride Carbon Dioxide Anion Gap BUN Creatinine Estim Creat Clear Calc Estimated GFR POC Glucose 135 H 114 Random Glucose Lactic Acid Calcium Total Bilirubin AST ALT Alkaline Phosphatase C-Reactive Protein Total Protein Albumin Lipase Vancomycin Trough 13.3 Random Vancomycin Influenza Type A (PCR) Influenza Type B (PCR) RSV RNA Qual (PCR) SARS-CoV-2 RNA (RT-PCR) Blood Type Antibody Screen 08/26/21 08/26/21 08/27/21 15:35 22:41 05:52 WBC 14.6 H RBC 4.29 L Hgb 10.9 L Hct 34.8 L MCV 81.1 MCH 25.4 L MCHC 31.3 RDW 15.3 Plt Count 367 MPV 9.9 Immature Gran % (Auto) 1.0 H Neut % (Auto) 73.7 H Lymph % (Auto) 13.7 L [place] % (Auto) 9.8 Eos % (Auto) 1.5 Baso % (Auto) 0.3 Lymph # (Auto) 2.0 [place] # (Auto) 1.4 H Eos # (Auto) 0.2 Baso # (Auto) 0.0 Abs Immat Gran (auto) 0.15 H Absolute Neuts (auto) 10.8 H Absolute Nucleated RBC 0.000 Nucleated RBC % (auto) 0.0 ESR PT INR APTT Sodium Potassium Chloride Carbon Dioxide Anion Gap BUN Creatinine Estim Creat Clear Calc Estimated GFR POC Glucose 170 H 140 H Random Glucose Lactic Acid Calcium Total Bilirubin AST ALT Alkaline Phosphatase C-Reactive Protein Total Protein Albumin Lipase Vancomycin Trough Random Vancomycin Influenza Type A (PCR) Influenza Type B (PCR) RSV RNA Qual (PCR) SARS-CoV-2 RNA (RT-PCR) Blood Type Antibody Screen 08/27/21 08/27/21 08/27/21 05:52 07:24 11:26 WBC RBC Hgb Hct MCV MCH MCHC RDW Plt Count MPV Immature Gran % (Auto) Neut % (Auto) Lymph % (Auto) [place] % (Auto) Eos % (Auto) Baso % (Auto) Lymph # (Auto) [place] # (Auto) Eos # (Auto) Baso # (Auto) Abs Immat Gran (auto) Absolute Neuts (auto) Absolute Nucleated RBC Nucleated RBC % (auto) ESR PT INR APTT Sodium 138 Potassium 4.5 Chloride 103 Carbon Dioxide 26 Anion Gap 14 BUN 12 Creatinine 0.89 Estim Creat Clear Calc 92.2 Estimated GFR > 60 POC Glucose 182 H 111 Random Glucose 162 H D Lactic Acid Calcium 8.3 L Total Bilirubin AST ALT Alkaline Phosphatase C-Reactive Protein Total Protein Albumin Lipase Vancomycin Trough Random Vancomycin Influenza Type A (PCR) Influenza Type B (PCR) RSV RNA Qual (PCR) SARS-CoV-2 RNA (RT-PCR) Blood Type Antibody Screen 08/27/21 08/27/21 08/27/21 16:42 17:00 20:03 WBC RBC Hgb Hct MCV MCH MCHC RDW Plt Count MPV Immature Gran % (Auto) Neut % (Auto) Lymph % (Auto) Zavala % (Auto) Eos % (Auto) Baso % (Auto) Lymph # (Auto) [place] # (Auto) Eos # (Auto) Baso # (Auto) Abs Immat Gran (auto) Absolute Neuts (auto) Absolute Nucleated RBC Nucleated RBC % (auto) ESR PT INR APTT Sodium Potassium Chloride Carbon Dioxide Anion Gap BUN Creatinine Estim Creat Clear Calc Estimated GFR POC Glucose 170 H 147 H Random Glucose Lactic Acid Calcium Total Bilirubin AST ALT Alkaline Phosphatase C-Reactive Protein Total Protein Albumin Lipase Vancomycin Trough 12.3 Random Vancomycin Influenza Type A (PCR) Influenza Type B (PCR) RSV RNA Qual (PCR) SARS-CoV-2 RNA (RT-PCR) Blood Type Antibody Screen 08/28/21 08/28/21 08/28/21 05:35 05:35 07:35 WBC 14.2 H RBC 4.21 L Hgb 10.7 L Hct 33.8 L MCV 80.3 MCH 25.4 L MCHC 31.7 RDW 15.2 Plt Count 347 MPV 10.0 Immature Gran % (Auto) 0.8 H Neut % (Auto) 74.2 H Lymph % (Auto) 12.9 L Zavala % (Auto) 9.2 Eos % (Auto) 2.5 Baso % (Auto) 0.4 Lymph # (Auto) 1.8 Zavala # (Auto) 1.3 H Eos # (Auto) 0.4 Baso # (Auto) 0.1 Abs Immat Gran (auto) 0.11 H Absolute Neuts (auto) 10.5 H Absolute Nucleated RBC 0.000 Nucleated RBC % (auto) 0.0 ESR PT INR APTT Sodium 135 Potassium 4.3 Chloride 101 Carbon Dioxide 23 Anion Gap 15 BUN 11 Creatinine 0.76 Estim Creat Clear Calc 108.0 Estimated GFR > 60 POC Glucose 124 H Random Glucose 108 Lactic Acid Calcium 8.3 L Total Bilirubin AST ALT Alkaline Phosphatase C-Reactive Protein Total Protein Albumin Lipase Vancomycin Trough Random Vancomycin Influenza Type A (PCR) Influenza Type B (PCR) RSV RNA Qual (PCR) SARS-CoV-2 RNA (RT-PCR) Blood Type Antibody Screen 08/28/21 08/28/21 08/28/21 11:15 16:38 19:56 WBC RBC Hgb Hct MCV MCH MCHC RDW Plt Count MPV Immature Gran % (Auto) Neut % (Auto) Lymph % (Auto) Zavala % (Auto) Eos % (Auto) Baso % (Auto) Lymph # (Auto) Zavala # (Auto) Eos # (Auto) Baso # (Auto) Abs Immat Gran (auto) Absolute Neuts (auto) Absolute Nucleated RBC Nucleated RBC % (auto) ESR PT INR APTT Sodium Potassium Chloride Carbon Dioxide Anion Gap BUN Creatinine Estim Creat Clear Calc Estimated GFR POC Glucose 103 163 H 223 H Random Glucose Lactic Acid Calcium Total Bilirubin AST ALT Alkaline Phosphatase C-Reactive Protein Total Protein Albumin Lipase Vancomycin Trough Random Vancomycin Influenza Type A (PCR) Influenza Type B (PCR) RSV RNA Qual (PCR) SARS-CoV-2 RNA (RT-PCR) Blood Type Antibody Screen 08/29/21 08/29/21 08/29/21 05:53 07:48 11:57 WBC RBC Hgb Hct MCV MCH MCHC RDW Plt Count MPV Immature Gran % (Auto) Neut % (Auto) Lymph % (Auto) Zavala % (Auto) Eos % (Auto) Baso % (Auto) Lymph # (Auto) Zavala # (Auto) Eos # (Auto) Baso # (Auto) Abs Immat Gran (auto) Absolute Neuts (auto) Absolute Nucleated RBC Nucleated RBC % (auto) ESR PT INR APTT Sodium Potassium Chloride Carbon Dioxide Anion Gap BUN Creatinine Estim Creat Clear Calc Estimated GFR POC Glucose 153 H 169 H Random Glucose Lactic Acid Calcium Total Bilirubin AST ALT Alkaline Phosphatase C-Reactive Protein Total Protein Albumin Lipase Vancomycin Trough 6.3 L Random Vancomycin Influenza Type A (PCR) Influenza Type B (PCR) RSV RNA Qual (PCR) SARS-CoV-2 RNA (RT-PCR) Blood Type Antibody Screen 08/29/21 08/29/21 08/30/21 15:38 19:29 07:27 WBC RBC Hgb Hct MCV MCH MCHC RDW Plt Count MPV Immature Gran % (Auto) Neut % (Auto) Lymph % (Auto) Zavala % (Auto) Eos % (Auto) Baso % (Auto) Lymph # (Auto) [place] # (Auto) Eos # (Auto) Baso # (Auto) Abs Immat Gran (auto) Absolute Neuts (auto) Absolute Nucleated RBC Nucleated RBC % (auto) ESR PT INR APTT Sodium Potassium Chloride Carbon Dioxide Anion Gap BUN Creatinine Estim Creat Clear Calc Estimated GFR POC Glucose 169 H 132 H 120 H Random Glucose Lactic Acid Calcium Total Bilirubin AST ALT Alkaline Phosphatase C-Reactive Protein Total Protein Albumin Lipase Vancomycin Trough Random Vancomycin Influenza Type A (PCR) Influenza Type B (PCR) RSV RNA Qual (PCR) SARS-CoV-2 RNA (RT-PCR) Blood Type Antibody Screen 08/30/21 08/30/21 08/30/21 11:33 16:01 16:28 WBC RBC Hgb Hct MCV MCH MCHC RDW Plt Count MPV Immature Gran % (Auto) Neut % (Auto) Lymph % (Auto) Zavala % (Auto) Eos % (Auto) Baso % (Auto) Lymph # (Auto) Z[place]ala # (Auto) Eos # (Auto) Baso # (Auto) Abs Immat Gran (auto) Absolute Neuts (auto) Absolute Nucleated RBC Nucleated RBC % (auto) ESR PT INR APTT Sodium Potassium Chloride Carbon Dioxide Anion Gap BUN Creatinine Estim Creat Clear Calc Estimated GFR POC Glucose 122 H 155 H Random Glucose Lactic Acid Calcium Total Bilirubin AST ALT Alkaline Phosphatase C-Reactive Protein Total Protein Albumin Lipase Vancomycin Trough Random Vancomycin Influenza Type A (PCR) Influenza Type B (PCR) RSV RNA Qual (PCR) SARS-CoV-2 RNA (RT-PCR) Blood Type A Positive Antibody Screen NEGATIVE 08/30/21 08/31/21 08/31/21 19:44 07:26 11:18 WBC RBC Hgb Hct MCV MCH MCHC RDW Plt Count MPV Immature Gran % (Auto) Neut % (Auto) Lymph % (Auto) Zavala % (Auto) Eos % (Auto) Baso % (Auto) Lymph # (Auto) Z[place]ala # (Auto) Eos # (Auto) Baso # (Auto) Abs Immat Gran (auto) Absolute Neuts (auto) Absolute Nucleated RBC Nucleated RBC % (auto) ESR PT INR APTT Sodium Potassium Chloride Carbon Dioxide Anion Gap BUN Creatinine Estim Creat Clear Calc Estimated GFR POC Glucose 155 H 142 H 130 H Random Glucose Lactic Acid Calcium Total Bilirubin AST ALT Alkaline Phosphatase C-Reactive Protein Total Protein Albumin Lipase Vancomycin Trough Random Vancomycin Influenza Type A (PCR) Influenza Type B (PCR) RSV RNA Qual (PCR) SARS-CoV-2 RNA (RT-PCR) Blood Type Antibody Screen Airway Mallampati Class: II (edentulous) TM Dist: >3cm Neck ROM: Full Denture: Upper Partial: Lower Loose/Missing/Broken Teeth: Yes, Upper and Lower Heart: RRR Lungs: CTA Assessment and Plan Assessment Anesthesia Assessment: Anesthesia Plan Discussed and Chart Reviewed Final Anesthetic Review Family History of Problems with Anesthesia: No History of Problems with Anesthesia: No ASA Class: III Final Preanesthetic Review: Meds/Allgs Chart Reviewed and Consent Obtained/Reviewed Patient Risk: Intermediate Procedure Risk: Low Anesthetic Plan Anesthetic Plan: GA Disposition: Standard PACU
--- NOTE | 2021-08-31 13:17 | P.PNIM_ITS ---
Subjective Subjective Date of Service: 08/31/21 Review of Systems follow up for diabetic foot wound no overnight events feeling well this morning, pain is better Ready for BKA today Physical Exam Vital Signs: Vital Signs: Last Vital Signs Temp 97.7 F 08/31/21 11:39 Pulse 67 08/31/21 11:39 Resp 18 08/31/21 11:39 BP 150/82 H 08/31/21 11:39 Pulse Ox 98 08/31/21 11:39 BMI result Body Mass Index 29.9 Appearing in no acute distress lung sounds are clear to auscultation heart regular rate rhythm, clear S1, S2 positive bowel sounds, abdomen is soft, nontender neuro patient is alert x3, no focal deficits Objective Data Active Medications Acetaminophen (Acetaminophen 325 Mg Tablet) 650 mg PO Q6H PRN PRN Reason: Pain, Mild (Pain Scale 1-3) Last Admin: 08/30/21 16:44 Dose: 650 mg Documented by: JUAN CARLOS Albuterol Sulfate (Albuterol Sulfate (0.083%) 2.5 Mg/3 Ml Vial.Neb) 2.5 mg INHALE ONCE PRN PRN Reason: Wheezing Albuterol Sulfate (Albuterol Sulfate (0.083%) 2.5 Mg/3 Ml Vial.Neb) 2.5 mg INHALE ONCE PRN PRN Reason: Wheezing Amlodipine Besylate (Amlodipine Besylate 10 Mg Tablet) 10 mg PO DAILY [facility]; Protocol Last Admin: 08/31/21 08:00 Dose: 10 mg Documented by: NAIMA Aspirin (Aspirin 81 Mg Tab.Chew) 81 mg PO DAILY [facility] Last Admin: 08/31/21 08:00 Dose: 81 mg Documented by: NAIMA Atorvastatin Calcium (Atorvastatin Calcium 20 Mg Tablet) 20 mg PO BEDTIME SHELLY Last Admin: 08/30/21 21:13 Dose: 20 mg Documented by: AMAURI Clopidogrel Bisulfate (Clopidogrel Bisulfate 75 Mg Tablet) 75 mg PO DAILY [facility] Last Admin: 08/31/21 08:06 Dose: Not Given Documented by: NAIMA Non-Admin Reason: held for surgery Collagenase (Collagenase Clostridium Hist. 30 Gm Tube) 1 appl TOPICAL DAILY [facility]; Protocol Last Admin: 08/31/21 09:32 Dose: Not Given Documented by: NAIMA Non-Admin Reason: Patient Refused Heparin Sodium (Porcine) 50 (units/ Sodium Chloride 5 ml) 0 units IVFLUSH QSHIFT [facility] Last Admin: 08/31/21 07:59 Dose: 50 unit Documented by: NAIMA Enoxaparin Sodium (Enoxaparin Sodium 40 Mg/0.4 Ml Syringe) 40 mg SUBCUT Q24H [facility] Last Admin: 08/30/21 17:07 Dose: 40 mg Documented by: JUAN CARLOS Fentanyl (Fentanyl Citrate/Pf 100 Mcg/2 Ml Vial) 50 mcg IVPUSH Q5M PRN; Protocol PRN Reason: Pain, Severe (Pain Scale 7-10) Fentanyl (Fentanyl Citrate/Pf 100 Mcg/2 Ml Vial) 25 mcg IVPUSH Q5M PRN; Protocol PRN Reason: Pain, Moderate (Pain Scale 4-6 Gabapentin (Gabapentin 600 Mg Tablet) 600 mg PO TID [facility] Last Admin: 08/31/21 08:00 Dose: 600 mg Documented by: NAIMA Hydromorphone HCl (Hydromorphone Hcl 2 Mg/Ml Vial) 1 mg IVPUSH Q3H PRN; Protocol PRN Reason: Pain, Severe (Pain Scale 7-10) Last Admin: 08/31/21 11:04 Dose: 1 mg Documented by: NAIMA Meropenem 1 gm/ Sodium (Chloride) 100 mls @ 100 mls/hr IV Q8H [facility] Last Infusion: 08/31/21 06:10 Dose: 0 mls/hr Documented by: TUMASY Insulin Glargine (Insulin Glargine,Hum.Rec.Anlog 100 Unit/Ml 10 Ml Vial) 30 unit SUBCUT BEDTIME [facility] Last Admin: 08/30/21 21:11 Dose: 30 unit Documented by: THONGASY Insulin Human Lispro (Insulin Lispro 100 Unit/Ml 3 Ml Vial) 0 unit SUBCUT QIDACHS [facility]; Protocol Last Admin: 08/31/21 11:23 Dose: Not Given Documented by: NAIMA Non-Admin Reason: Off Unit: Surgery Lisinopril (Lisinopril 20 Mg Tablet) 20 mg PO DAILY [facility]; Protocol Last Admin: 08/31/21 08:00 Dose: 20 mg Documented by: NAIMA Melatonin (Melatonin 3 Mg Tablet) 6 mg PO BEDTIME PRN PRN Reason: Insomnia Last Admin: 08/21/21 20:26 Dose: 6 mg Documented by: GABBY Melatonin (Melatonin 3 Mg Tablet) 6 mg PO BEDTIME [facility] Last Admin: 08/30/21 21:13 Dose: 6 mg Documented by: AMAURI Metoprolol Succinate (Metoprolol Succinate Er 50 Mg Tab.Er.24h) 50 mg PO DAILY [facility]; Protocol Last Admin: 08/31/21 08:00 Dose: 50 mg Documented by: NAIMA Ondansetron HCl (Ondansetron Hcl 4 Mg/2 Ml Vial) 4 mg IVPUSH ONCE PRN PRN Reason: Nausea and Vomiting Oxycodone HCl (Oxycodone Hcl Immed Release 5 Mg Tablet) 10 mg PO Q6H PRN PRN Reason: Pain, Moderate (Pain Scale 4-6 Last Admin: 08/30/21 17:56 Dose: 10 mg Documented by: JUAN CARLOS Oxycodone HCl (Oxycodone Hcl Immed Release 5 Mg Tablet) 10 mg PO ONCE PRN PRN Reason: Pain, Severe (Pain Scale 7-10) Oxycodone HCl (Oxycodone Hcl Immed Release 5 Mg Tablet) 5 mg PO ONCE PRN PRN Reason: Pain, Severe (Pain Scale 7-10) Pharmacy Consult (Consult Rx Perform Med Rec) 1 each MISCELLANE ONCE PRN PRN Reason: Consult order Sodium Chloride (0.9 % Sodium Chloride Flush 3 Ml Syringe) 3 ml IVFLUSH QSHIFT [facility] Last Admin: 08/31/21 07:59 Dose: 3 ml Documented by: NAIMA Labs CBC & Chem 7: 08/28/21 05:35 08/28/21 05:35 Labs: Laboratory Results - last 24 hr 08/30/21 08/30/21 08/30/21 16:01 16:28 19:44 POC Glucose 155 H 155 H Blood Type A Positive Antibody Screen NEGATIVE 08/31/21 08/31/21 07:26 11:18 POC Glucose 142 H 130 H Blood Type Antibody Screen Assessment and Plan (1) Cellulitis of foot, right: Status: Acute Assessment and Plan: This is a 56 year old male with diabetes here with post amputation of right big toe site cellulitis Cellulitis of right great toe amputation site/diabetic foot infection s/p right great toe amputation 08/09, excisional debridement 08/23, s/p right great toe ray amputation 08/26 wound culture from 08/23, 08/26 growing citrobacter freundii Blood cultures negative PICC line placed 08/23, will likely not need abx after BKA BKA today Left heel ulcer related to peripheral vascular disease, diabetes continue santyl, local wound care vascular surgery following, no need for debridement at this time HTN. bp elevated continue metoprolol, norvasc, lisinopril CAD continue antiplatlets , metoprolol,and atorvastatin DM2 continue Lantus and SSI neuropathy continue gabapentin DVT prophylaxis with Lovenox Attending Dr. Baig Quality Stroke Does the patient have a stroke diagnosis?: No VTE Prior VTE?: No VTE Risk Level:: Medical - moderate - high VTE Device Contraindication: Treatment Not Indicated VTE Drug Contraindication: N/A - Med Ordered
[2021-08-31] MEDS: HYDROmorphone HCl 0.5 MG/0.5 ML SYRINGE IVPUSH ×4 (13:45→14:05)
--- NOTE | 2021-08-31 13:55 | P.OP_ITS ---
Operative Note Operative Note Date of Service: 08/31/21 Narrative: Operative note by [facility] Preoperative diagnosis: Nonhealing right lower extremity ulcer Postoperative diagnosis: Same Procedure: Right below-knee amputation Surgeon:Berto Sheppard M.D. Hand Endband Cutter: None Anesthesia: General Specimens: 1 Drains: None Estimated blood loss: 100 mL Indications: 56-year-old gentleman with a history of diabetes had undergone right great toe amputation. It has been persistently nonhealing. It has gone further back. He now presents for below-knee amputation. Risks benefits complications were discussed in detail with the patient and the patient's daughter. They understood and consented. The patient has signed the informed consent after reviewing risks, complications, benefits, and alternatives previously discussed with the patient. The patient was given the opportunity to ask any additional questions or voice any concerns. All questions were answered to the patient's satisfaction. Procedure in detail: Patient was brought to the operating room prior to which a time-out was called for patient identification site verification. Approximately 10 cm below the tibial tuberosity incision was not carried out over the pretibial surface and then a posterior flap incision was carried out. Once this was through we went through with electrocautery through the muscle beds. Anterior tibial posterior tibial and peroneal vessels were identified and ligated tied off with 2-0 silk ties. In addition the great saphenous vein was identified in a similar fashion and tied off do the posterior portion of the tibia we advanced a lap pad. We created a reverse hockey stick cut on the tibia with a power saw. In addition we cut across the fibula approximately 3-4 inches higher than the tibia. Once this was accomplished the posterior flap was created tissue was dissected free using electrocautery the leg was passed off the table as specimen. At this point hemostasis was achieved with electrocautery. Posterior flap was trimmed down to create an appropriate shape. The tibia and fibula were filed down to smooth edges. Once this was all accomplished the posterior flap was brought up and sutured with a 2 0 poly Sorb. With multiple interrupted stitches of this. Once this was accomplished a 2 0 nylon in a mattress fashion was used for skin closure along with skin clips. Sterile dressing was applied. At the end of the case sponge instrument counts were correct. Patient tolerated the procedure well. Returned to recovery with stable vitals. This note is constructed using voice recognition software. While every effort has been made to ensure accuracy, principal developer errors may have been included. Thank you for allowing me to participate in the care of your patient. Yours sincerely, Berto Sheppard MD, FACS, R.P.V.I.
[2021-08-31] MEDS: oxyCODONE HCl Immed Release 5 MG TABLET 10 MG PO ×2 (15:43→22:56)
[2021-08-31 16:59] LABS: Glucose, Whole Blood 132 mg/dL (60-115)
[2021-08-31] MEDS: Enoxaparin Sodium 40 MG/0.4 ML SYRINGE SUBCUT (17:35)
[2021-08-31] MEDS: Atorvastatin Calcium 20 MG TABLET PO (19:38)
[2021-08-31] MEDS: Melatonin 3 MG TABLET 6 MG PO (19:38)
[2021-08-31] MEDS: Insulin Glargine,Hum.rec.anlog 100 UNIT/ML 10 ML VIAL 30 UNIT SUBCUT (19:45)
[2021-08-31 20:13] LABS: Glucose, Whole Blood 220 mg/dL (60-115)
[2021-08-31] MEDS: Insulin Lispro 100 UNIT/ML 3 ML VIAL SUBCUT (20:45)
[2021-09-01] MEDS: Heparin Sodium,Porcine Flush 50 UNITS, 0.9 % Sodium Chloride Flush 5 ML IVFLUSH ×4 (01:59→23:26)
[2021-09-01] MEDS: 0.9 % Sodium Chloride Flush 3 ML SYRINGE IVFLUSH ×2 (02:02→07:13)
[2021-09-01 02:51] VITALS: BP 168/77; PULSE 80; RESP 20; TEMP 36.7; O2SAT 100
[2021-09-01] MEDS: HYDROmorphone HCl 2 MG/ML VIAL 1 MG IVPUSH ×5 (03:27→20:47)
[2021-09-01] MEDS: Melatonin 3 MG TABLET 6 MG PO ×2 (03:40→20:46)
[2021-09-01] MEDS: Acetaminophen 325 MG TABLET 650 MG PO ×3 (05:11→23:26)
[2021-09-01] MEDS: oxyCODONE HCl Immed Release 5 MG TABLET 10 MG PO ×5 (05:11→23:26)
[2021-09-01] MEDS: lisinopriL 20 MG TABLET PO (07:14)
[2021-09-01] MEDS: Clopidogrel Bisulfate 75 MG TABLET PO (07:14)
[2021-09-01] MEDS: amLODIPine Besylate 10 MG TABLET PO (07:14)
[2021-09-01] MEDS: Metoprolol Succinate ER 50 MG TAB.ER.24H PO (07:14)
[2021-09-01] MEDS: Gabapentin 600 MG TABLET PO ×3 (07:14→20:46)
[2021-09-01] MEDS: Aspirin 81 MG TAB.CHEW PO (07:14)
[2021-09-01 07:26] VITALS: BP 160/78; PULSE 80; RESP 20; TEMP 36.6; O2SAT 98
[2021-09-01 07:48] LABS: Glucose, Whole Blood 133 mg/dL (60-115)
[2021-09-01 11:25] VITALS: BP 146/70; PULSE 73; RESP 20; TEMP 36.4; O2SAT 100
[2021-09-01 11:44] LABS: Glucose, Whole Blood 133 mg/dL (60-115)
--- NOTE | 2021-09-01 12:23 | P.PNVS_ITS ---
Subjective Subjective Date of Service: 09/01/21 Patient reports: no new complaints and feels better Interval history: Patient seen and examined. Patient is postop day 1 status post BKA. No interval issues. He feels well. Physical Exam Vital Signs: Vital Signs: Last Vital Signs Temp 97.5 F 09/01/21 11:25 Pulse 73 09/01/21 11:25 Resp 20 09/01/21 11:25 BP 146/70 H 09/01/21 11:25 Pulse Ox 100 09/01/21 11:25 BMI result Body Mass Index 29.9 Const: General: cooperative, healthy appearing and no acute distress Orientation/consciousness: oriented to person, oriented to place and oriented to time HENMT: Head: Yes normal to inspection Neck: Carotids: no bruits Chest: Chest palpation & inspection: normal inspection of the chest Resp: Effort & Inspection: normal respiratory effort and able to speak in complete sentences Auscultation: clear to auscultation bilaterally Cardio: Rate: regular rate Heart sounds: S1 normal heart sound present and S2 normal heart sound present GI: Inspection: Yes normal to inspection Skin: General skin exam: no rashes or lesions noted Wounds: amputation site (Dressing clean dry intact) Neuro: General: oriented to person, oriented to place, oriented to time and CN's II-XI intact bilaterally Extrem: General: Yes normal to inspection, Yes full ROM and Yes no clubbing, cyanosis or edema Psych: Appearance: grossly normal and well kempt Speech and movement: Normal speech and movement present Affect: normal affect Progress Note: A&P Assessment and plan (1) Status post below-knee amputation: Status: Acute Assessment and Plan: Patient doing well status post amputation. His it pain appears to be doing significantly better. Will plan for dressing changes for tomorrow. Would anticipate if pain reasonably well controlled discharge within the next day or 2. Fall Risk Details Current Medications: Current Medications Acetaminophen (Acetaminophen 325 Mg Tablet) 650 mg PO Q6H PRN PRN Reason: Pain, Mild (Pain Scale 1-3) Last Admin: 09/01/21 10:27 Dose: 650 mg Documented by: Albuterol Sulfate (Albuterol Sulfate (0.083%) 2.5 Mg/3 Ml Vial.Neb) 2.5 mg INHALE ONCE PRN PRN Reason: Wheezing Albuterol Sulfate (Albuterol Sulfate (0.083%) 2.5 Mg/3 Ml Vial.Neb) 2.5 mg INHALE ONCE PRN PRN Reason: Wheezing Amlodipine Besylate (Amlodipine Besylate 10 Mg Tablet) 10 mg PO DAILY [facility]; Protocol Last Admin: 09/01/21 07:14 Dose: 10 mg Documented by: Aspirin (Aspirin 81 Mg Tab.Chew) 81 mg PO DAILY [facility] Last Admin: 09/01/21 07:14 Dose: 81 mg Documented by: Atorvastatin Calcium (Atorvastatin Calcium 20 Mg Tablet) 20 mg PO BEDTIME [facility] Last Admin: 08/31/21 19:38 Dose: 20 mg Documented by: Clopidogrel Bisulfate (Clopidogrel Bisulfate 75 Mg Tablet) 75 mg PO DAILY [facility] Last Admin: 09/01/21 07:14 Dose: 75 mg Documented by: Collagenase (Collagenase Clostridium Hist. 30 Gm Tube) 1 appl TOPICAL DAILY [facility]; Protocol Last Admin: 09/01/21 07:17 Dose: Not Given Documented by: Heparin Sodium (Porcine) 50 (units/ Sodium Chloride 5 ml) 0 units IVFLUSH QSHIFT [facility] Last Admin: 09/01/21 07:14 Dose: 1 unit Documented by: Enoxaparin Sodium (Enoxaparin Sodium 40 Mg/0.4 Ml Syringe) 40 mg SUBCUT Q24H [facility] Last Admin: 08/31/21 17:35 Dose: 40 mg Documented by: Fentanyl (Fentanyl Citrate/Pf 100 Mcg/2 Ml Vial) 50 mcg IVPUSH Q5M PRN; Protoc ol PRN Reason: Pain, Severe (Pain Scale 7-10) Fentanyl (Fentanyl Citrate/Pf 100 Mcg/2 Ml Vial) 25 mcg IVPUSH Q5M PRN; Protocol PRN Reason: Pain, Moderate (Pain Scale 4-6 Gabapentin (Gabapentin 600 Mg Tablet) 600 mg PO TID [facility] Last Admin: 09/01/21 07:14 Dose: 600 mg Documented by: Hydromorphone HCl (Hydromorphone Hcl 2 Mg/Ml Vial) 1 mg IVPUSH Q3H PRN; Tara col PRN Reason: Pain, Severe (Pain Scale 7-10) Last Admin: 09/01/21 12:12 Dose: 1 mg Documented by: Meropenem 1 gm/ Sodium (Chloride) 100 mls @ 100 mls/hr IV Q8H [facility] Last Admin: 09/01/21 12:12 Dose: 100 mls/hr Documented by: Insulin Glargine (Insulin Glargine,Hum.Rec.Anlog 100 Unit/Ml 10 Ml Vial) 30 unit SUBCUT BEDTIME [facility] Last Admin: 08/31/21 19:45 Dose: 30 unit Documented by: Insulin Human Lispro (Insulin Lispro 100 Unit/Ml 3 Ml Vial) 0 unit SUBCUT QIDACHS [facility]; Protocol Last Admin: 09/01/21 11:42 Dose: Not Given Documented by: Lisinopril (Lisinopril 20 Mg Tablet) 20 mg PO DAILY [facility]; Protocol Last Admin: 09/01/21 07:14 Dose: 20 mg Documented by: Melatonin (Melatonin 3 Mg Tablet) 6 mg PO BEDTIME PRN PRN Reason: Insomnia Last Admin: 09/01/21 03:40 Dose: 6 mg Documented by: Melatonin (Melatonin 3 Mg Tablet) 6 mg PO BEDTIME [facility] Last Admin: 08/31/21 19:38 Dose: 6 mg Documented by: Metoprolol Succinate (Metoprolol Succinate Er 50 Mg Tab.Er.24h) 50 mg PO DAILY [facility]; Protocol Last Admin: 09/01/21 07:14 Dose: 50 mg Documented by: Ondansetron HCl (Ondansetron Hcl 4 Mg/2 Ml Vial) 4 mg IVPUSH ONCE PRN PRN Reason: Nausea and Vomiting Oxycodone HCl (Oxycodone Hcl Immed Release 5 Mg Tablet) 5 mg PO ONCE PRN PRN Reason: Pain, Severe (Pain Scale 7-10) Oxycodone HCl (Oxycodone Hcl Immed Release 5 Mg Tablet) 10 mg PO Q6H PRN PRN Reason: Pain, Severe (Pain Scale 7-10) Last Admin: 09/01/21 10:27 Dose: 10 mg Documented by: Pharmacy Consult (Consult Rx Perform Med Rec) 1 each MISCELLANE ONCE PRN PRN Reason: Consult order Sodium Chloride (0.9 % Sodium Chloride Flush 3 Ml Syringe) 3 ml IVFLUSH QSHIFT [facility] Last Admin: 09/01/21 07:13 Dose: 3 ml Documented by: Time Spent With Patient Time: Total time spent is greater than 50% in coordination of care (as documented) at patient's floor/unit and/or counseling patient: Time with patient: 15 - 24 minutes Procedures Date of Service Date of Service: 09/01/21 Quality Stroke Does the patient have a stroke diagnosis?: No VTE Prior VTE?: No VTE Risk Level:: Medical - moderate - high VTE Device Contraindication: Treatment Not Indicated VTE Drug Contraindication: N/A - Med Ordered
--- NOTE | 2021-09-01 13:54 | P.PNIM_ITS ---
Subjective Subjective Date of Service: 09/01/21 Interval History: Status post right BKA 08/31/2021; pain control adequate Review of Systems Denies chest pain Denies shortness of breath Denies nausea vomiting diarrhea Physical Exam Vital Signs: Vital Signs: Last Vital Signs Temp 97.5 F 09/01/21 11:25 Pulse 73 09/01/21 11:25 Resp 20 09/01/21 11:25 BP 146/70 H 09/01/21 11:25 Pulse Ox 100 09/01/21 11:25 BMI result Body Mass Index 29.9 Const: Other: No acute distress Resp: Other: Clear to auscultation bilaterally no rales rhonchi wheezes Cardio: Other: No S4; positive S1-S2; no S3 murmurs rubs or gallops GI: Other: Soft nontender nondistended with normoactive bowel sounds Extrem: Other: Right stump site dressing clean dry and intact Objective Data Active Medications Acetaminophen (Acetaminophen 325 Mg Tablet) 650 mg PO Q6H PRN PRN Reason: Pain, Mild (Pain Scale 1-3) Last Admin: 09/01/21 10:27 Dose: 650 mg Documented by: TARIQ Albuterol Sulfate (Albuterol Sulfate (0.083%) 2.5 Mg/3 Ml Vial.Neb) 2.5 mg INHALE ONCE PRN PRN Reason: Wheezing Albuterol Sulfate (Albuterol Sulfate (0.083%) 2.5 Mg/3 Ml Vial.Neb) 2.5 mg INHALE ONCE PRN PRN Reason: Wheezing Amlodipine Besylate (Amlodipine Besylate 10 Mg Tablet) 10 mg PO DAILY [facility]; Protocol Last Admin: 09/01/21 07:14 Dose: 10 mg Documented by: TARIQ Aspirin (Aspirin 81 Mg Tab.Chew) 81 mg PO DAILY [facility] Last Admin: 09/01/21 07:14 Dose: 81 mg Documented by: TARIQ Atorvastatin Calcium (Atorvastatin Calcium 20 Mg Tablet) 20 mg PO BEDTIME [facility] Last Admin: 08/31/21 19:38 Dose: 20 mg Documented by: IFEANYI Clopidogrel Bisulfate (Clopidogrel Bisulfate 75 Mg Tablet) 75 mg PO DAILY [facility] Last Admin: 09/01/21 07:14 Dose: 75 mg Documented by: TARIQ Collagenase (Collagenase Clostridium Hist. 30 Gm Tube) 1 appl TOPICAL DAILY [facility]; Protocol Last Admin: 09/01/21 07:17 Dose: Not Given Documented by: TARIQ Non-Admin Reason: Patient Refused Heparin Sodium (Porcine) 50 (units/ Sodium Chloride 5 ml) 0 units IVFLUSH QSHIFT [facility] Last Admin: 09/01/21 07:14 Dose: 1 unit Documented by: TARIQ Enoxaparin Sodium (Enoxaparin Sodium 40 Mg/0.4 Ml Syringe) 40 mg SUBCUT Q24H [facility] Last Admin: 08/31/21 17:35 Dose: 40 mg Documented by: NAIMA Fentanyl (Fentanyl Citrate/Pf 100 Mcg/2 Ml Vial) 50 mcg IVPUSH Q5M PRN; Protocol PRN Reason: Pain, Severe (Pain Scale 7-10) Fentanyl (Fentanyl Citrate/Pf 100 Mcg/2 Ml Vial) 25 mcg IVPUSH Q5M PRN; Protocol PRN Reason: Pain, Moderate (Pain Scale 4-6 Gabapentin (Gabapentin 600 Mg Tablet) 600 mg PO TID [facility] Last Admin: 09/01/21 07:14 Dose: 600 mg Documented by: TARIQ Hydromorphone HCl (Hydromorphone Hcl 2 Mg/Ml Vial) 1 mg IVPUSH Q3H PRN; Protocol PRN Reason: Pain, Severe (Pain Scale 7-10) Last Admin: 09/01/21 12:12 Dose: 1 mg Documented by: HAYDEE Meropenem 1 gm/ Sodium (Chloride) 100 mls @ 100 mls/hr IV Q8H [facility] Last Infusion: 09/01/21 13:31 Dose: 0 mls/hr Documented by: HAYDEE Insulin Glargine (Insulin Glargine,Hum.Rec.Anlog 100 Unit/Ml 10 Ml Vial) 30 unit SUBCUT BEDTIME [facility] Last Admin: 08/31/21 19:45 Dose: 30 unit Documented by: IFEANYI Insulin Human Lispro (Insulin Lispro 100 Unit/Ml 3 Ml Vial) 0 unit SUBCUT QIDACHS [facility]; Protocol Last Admin: 09/01/21 11:42 Dose: Not Given Documented by: HAYDEE Non-Admin Reason: No Insulin Coverage Lisinopril (Lisinopril 20 Mg Tablet) 20 mg PO DAILY [facility]; Protocol Last Admin: 09/01/21 07:14 Dose: 20 mg Documented by: TARIQ Melatonin (Melatonin 3 Mg Tablet) 6 mg PO BEDTIME PRN PRN Reason: Insomnia Last Admin: 09/01/21 03:40 Dose: 6 mg Documented by: IFEANYI Melatonin (Melatonin 3 Mg Tablet) 6 mg PO BEDTIME [facility] Last Admin: 08/31/21 19:38 Dose: 6 mg Documented by: IFEANYI Metoprolol Succinate (Metoprolol Succinate Er 50 Mg Tab.Er.24h) 50 mg PO DAILY [facility]; Protocol Last Admin: 09/01/21 07:14 Dose: 50 mg Documented by: TARIQ Ondansetron HCl (Ondansetron Hcl 4 Mg/2 Ml Vial) 4 mg IVPUSH ONCE PRN PRN Reason: Nausea and Vomiting Oxycodone HCl (Oxycodone Hcl Immed Release 5 Mg Tablet) 5 mg PO ONCE PRN PRN Reason: Pain, Severe (Pain Scale 7-10) Oxycodone HCl (Oxycodone Hcl Immed Release 5 Mg Tablet) 10 mg PO Q6H PRN PRN Reason: Pain, Severe (Pain Scale 7-10) Last Admin: 09/01/21 10:27 Dose: 10 mg Documented by: TARIQ Pharmacy Consult (Consult Rx Perform Med Rec) 1 each MISCELLANE ONCE PRN PRN Reason: Consult order Sodium Chloride (0.9 % Sodium Chloride Flush 3 Ml Syringe) [facility] Last Admin: 09/01/21 07:13 Dose: 3 ml Documented by: TARIQ Labs CBC & Chem 7: 08/28/21 05:35 08/28/21 05:35 Labs: Laboratory Results - last 24 hr 08/31/21 08/31/21 09/01/21 16:47 19:52 07:05 POC Glucose 132 H 220 H 133 H 09/01/21 11:27 POC Glucose 133 H Assessment and Plan (1) Status post below-knee amputation: Status: Acute (2) Diabetes mellitus with hyperglycemia, with long-term current use of insulin: Status: Acute Assessment and Plan: This is a 56 year old male with diabetes status post right BKA secondary to persistent cellulitis/osteomyelitis 1.Cellulitis of right great toe amputation site/diabetic foot infection status post right BKA pod 1. Doing well postop day 1 further plans as per vascular; Query continue meropenem at this point. Await vascular input 2.HTN Acceptable control. Metoprolol, norvasc, lisinopril 3.CAD Continue antiplatlets , metoprolol,and atorvastatin 3.DMII Continue Lantus and SSI DVT prophylaxis with Lovenox Quality Stroke Does the patient have a stroke diagnosis?: No VTE Prior VTE?: No VTE Risk Level:: Medical - moderate - high VTE Device Contraindication: Treatment Not Indicated VTE Drug Contraindication: N/A - Med Ordered
--- NOTE | 2021-09-01 14:01 | MHC.CM.PN ---
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
--- NOTE | 2021-09-01 15:07 | HO.POSTANES ---
Post Anesthesia Evaluation Post Anesthesia Evaluation Vital Signs: Vital Signs Temp Pulse Resp BP Pulse Ox 09/01/21 11:25 97.5 F 73 20 146/70 H 100 09/01/21 07:26 97.9 F 80 20 160/78 H 98 Anesthesia: General Mental Status: Awake Pain Control: Satisfactory Nausea/Vomiting: None Hydration: Adequate Anesthesia-Related Issues: No Anes. Related Issues
[2021-09-01] MEDS: Collagenase Clostridium Hist. 30 GM TUBE 1 APPL TOPICAL (15:18)
[2021-09-01 15:22] VITALS: BP 147/71; PULSE 78; RESP 16; TEMP 36.3; O2SAT 100
[2021-09-01 15:55] LABS: Glucose, Whole Blood 179 mg/dL (60-115)
[2021-09-01] MEDS: Insulin Lispro 100 UNIT/ML 3 ML VIAL SUBCUT ×2 (16:43→20:47)
[2021-09-01] MEDS: Enoxaparin Sodium 40 MG/0.4 ML SYRINGE SUBCUT (16:44)
[2021-09-01 19:44] VITALS: BP 166/78; PULSE 85; RESP 18; TEMP 36.4; O2SAT 98
[2021-09-01 20:20] LABS: Glucose, Whole Blood 203 mg/dL (60-115)
[2021-09-01] MEDS: Atorvastatin Calcium 20 MG TABLET PO (20:46)
[2021-09-01] MEDS: Insulin Glargine,Hum.rec.anlog 100 UNIT/ML 10 ML VIAL 30 UNIT SUBCUT (20:47)
[2021-09-02] VITALS: BP 133/70; PULSE 75; RESP 18; TEMP 36.2; O2SAT 98
[2021-09-02] MEDS: HYDROmorphone HCl 2 MG/ML VIAL 1 MG IVPUSH ×4 (03:07→13:07)
[2021-09-02 04:00] VITALS: BP 150/69; PULSE 75; RESP 18; TEMP 36.2; O2SAT 98
[2021-09-02] MEDS: Acetaminophen 325 MG TABLET 650 MG PO ×3 (05:23→18:46)
[2021-09-02] MEDS: oxyCODONE HCl Immed Release 5 MG TABLET 10 MG PO ×3 (05:23→18:46)
[2021-09-02 05:56] LABS: MANUAL DIFF FLAG NO
[2021-09-02 06:18] LABS: Alanine Aminotransferase 48 U/L (0-40); Albumin Level 3.2 g/dL (3.5-5.0); Alkaline Phosphatase 164 U/L (39-117); Anion Gap 12 (12-20); Aspartate Amino Transferase 46 U/L (5-37); Bilirubin Total 0.4 mg/dL (0.0-1.0); Blood Urea Nitrogen 15 mg/dL (9-16); Calcium 8.7 mg/dL (8.4-10.2); Carbon Dioxide 26 mmol/L (22-29); Chloride 101 mmol/L (96-108); Creatinine Clr Calc Pharmacy 97.7; Estimated Glomerular Filt Rate > 60; Glucose Fasting 117 mg/dL (60-99); Potassium 4.4 mmol/L (3.3-5.1); Sodium 135 mmol/L (135-145); Total Protein 7.4 g/dL (6.5-8.0)
[2021-09-02 06:40] LABS: Basophils Absolute Auto 0.1 X10*3/uL (0.0-0.2); Basophils Percent Auto 0.4 % (0-2); Eosinophils Absolute Auto 0.2 X10*3/uL (0.0-0.4); Eosinophils Percent Auto 1.3 % (0-4); Hemoglobin 10.2 g/dl (14.0-18.0); Imm Gran Abs Auto 0.11 X10*3/uL (0.00-0.03); Imm Gran Pct Auto 0.8 % (0.0-0.4); Lymphocytes Percent Auto 15.1 % (20-40); Mean Corpuscular HGB Conc 31.9 g/dl (31.0-36.0); Mean Corpuscular Hemoglobin 25.6 pg (27.0-33.0); Mean Corpuscular Volume 80.2 fL (80.0-98.0); Mean Platelet Volume 9.9 fL (9.4-12.4); Monocytes Absolute Auto 1.3 X10*3/uL (0.1-1.2); Monocytes Percent Auto 9.9 % (2-11); Neutrophils Absolute Auto 9.6 x10*3/uL (2.0-8.3); Neutrophils Percent Auto 72.5 % (45-73); Platelet Count 415 X10*3/uL (160-400); Red Blood Count 3.99 X10*6/uL (4.60-5.80); Red Cell Distribution Width 15.3 % (11.0-16.0); White Blood Count 13.3 X10*3/uL (4.8-10.8)
[2021-09-02 07:38] LABS: Glucose, Whole Blood 113 mg/dL (60-115)
[2021-09-02 07:55] VITALS: BP 180/79; PULSE 84; RESP 20; TEMP 36.3; O2SAT 99
[2021-09-02] MEDS: lisinopriL 20 MG TABLET PO (08:15)
[2021-09-02] MEDS: Aspirin 81 MG TAB.CHEW PO (08:15)
[2021-09-02] MEDS: amLODIPine Besylate 10 MG TABLET PO (08:15)
[2021-09-02] MEDS: Heparin Sodium,Porcine Flush 50 UNITS, 0.9 % Sodium Chloride Flush 5 ML IVFLUSH (08:15)
[2021-09-02] MEDS: Clopidogrel Bisulfate 75 MG TABLET PO (08:15)
[2021-09-02] MEDS: Gabapentin 600 MG TABLET PO ×3 (08:15→21:58)
[2021-09-02] MEDS: Metoprolol Succinate ER 50 MG TAB.ER.24H PO (08:15)
[2021-09-02 11:00] VITALS: BP 133/80; PULSE 80; RESP 20; TEMP 36.1; O2SAT 99
[2021-09-02 11:34] LABS: Glucose, Whole Blood 112 mg/dL (60-115)
--- NOTE | 2021-09-02 12:16 | P.PNVS_ITS ---
Subjective Subjective Date of Service: 09/02/21 Patient reports: no new complaints and feels better Interval history: Patient is status post right below-knee amputation. Appears to be doing relatively well. He does have a little bit of a pain control issue. In general seems to be doing okay. Now for routine postoperative follow-up Physical Exam Vital Signs: Vital Signs: Last Vital Signs Temp 97.0 F 09/02/21 11:00 Pulse 80 09/02/21 11:00 Resp 20 09/02/21 11:00 BP 133/80 09/02/21 11:00 Pulse Ox 99 09/02/21 11:00 BMI result Body Mass Index 29.9 Const: General: cooperative, healthy appearing and no acute distress Orientation/consciousness: oriented to person, oriented to place and oriented to time HENMT: Head: Yes normal to inspection Neck: Carotids: no bruits Chest: Chest palpation & inspection: normal inspection of the chest Resp: Effort & Inspection: normal respiratory effort and able to speak in complete sentences Auscultation: clear to auscultation bilaterally Cardio: Rate: regular rate Heart sounds: S1 normal heart sound present and S2 normal heart sound present GI: Inspection: Yes normal to inspection Skin: General skin exam: no rashes or lesions noted Wounds: amputation site (Amp site healing well. Dressing change) and wounds noted (Left heel wound) Neuro: General: oriented to person, oriented to place, oriented to time and CN's II-XI intact bilaterally Extrem: General: Yes normal to inspection, Yes full ROM and Yes no clubbing, cyanosis or edema Psych: Appearance: grossly normal and well kempt Speech and movement: Normal speech and movement present Affect: normal affect Progress Note: A&P Assessment and plan (1) Status post below-knee amputation: Status: Acute Assessment and Plan: He is stable in terms of his amputation. Stable from my perspective for discharge. He will need to see me in approximately 2 weeks upon discharge for suture and staple removal. (2) Ulcer of left heel: Status: Acute Assessment and Plan: Left heel continues to have necrotic tissue. Would recommend a collage in [place] dressings as an outpatient when he is in a facility. He can follow up with [facility] and [facility] upon discharge regarding that heal. This leg is in risk of amputation as well. We will try to do our best to salvage. Fall Risk Details Current Medications: Current Medications Acetaminophen (Acetaminophen 325 Mg Tablet) 650 mg PO Q6H PRN PRN Reason: Pain, Mild (Pain Scale 1-3) Last Admin: 09/02/21 05:23 Dose: 650 mg Documented by: Albuterol Sulfate (Albuterol Sulfate (0.083%) 2.5 Mg/3 Ml Vial.Neb) 2.5 mg INHALE ONCE PRN PRN Reason: Wheezing Amlodipine Besylate (Amlodipine Besylate 10 Mg Tablet) 10 mg PO DAILY [facility]; Protocol Last Admin: 09/02/21 08:15 Dose: 10 mg Documented by: Aspirin (Aspirin 81 Mg Tab.Chew) 81 mg PO DAILY [facility] Last Admin: 09/02/21 08:15 Dose: 81 mg Documented by: Atorvastatin Calcium (Atorvastatin Calcium 20 Mg Tablet) 20 mg PO BEDTIME [facility] Last Admin: 09/01/21 20:46 Dose: 20 mg Documented by: Clopidogrel Bisulfate (Clopidogrel Bisulfate 75 Mg Tablet) 75 mg PO DAILY [facility] Last Admin: 09/02/21 08:15 Dose: 75 mg Documented by: Collagenase (Collagenase Clostridium Hist. 30 Gm Tube) 1 appl TOPICAL DAILY [facility]; Protocol Last Admin: 09/02/21 08:19 Dose: Not Given Documented by: Heparin Sodium (Porcine) 50 (units/ Sodium Chloride 5 ml) 0 units IVFLUSH QSHIFT [facility] Last Admin: 09/02/21 08:15 Dose: 50 unit Documented by: Enoxaparin Sodium (Enoxaparin Sodium 40 Mg/0.4 Ml Syringe) 40 mg SUBCUT Q24H [facility] Last Admin: 09/01/21 16:44 Dose: 40 mg Documented by: Fentanyl (Fentanyl Citrate/Pf 100 Mcg/2 Ml Vial) 50 mcg IVPUSH Q5M PRN; Protocol PRN Reason: Pain, Severe (Pain Scale 7-10) Fentanyl (Fentanyl Citrate/Pf 100 Mcg/2 Ml Vial) 25 mcg IVPUSH Q5M PRN; Protocol PRN Reason: Pain, Moderate (Pain Scale 4-6 Gabapentin (Gabapentin 600 Mg Tablet) 600 mg PO TID [facility] Last Admin: 09/02/21 08:15 Dose: 600 mg Documented by: Hydromorphone HCl (Hydromorphone Hcl 2 Mg/Ml Vial) 1 mg IVPUSH Q3H PRN; Protocol PRN Reason: Pain, Severe (Pain Scale 7-10) Last Admin: 09/02/21 09:13 Dose: 1 mg Documented by: Meropenem 1 gm/ Sodium (Chloride) 100 mls @ 100 mls/hr IV Q8H [facility] Last Infusion: 09/02/21 06:29 Dose: Infused Documented by: Insulin Glargine (Insulin Glargine,Hum.Rec.Anlog 100 Unit/Ml 10 Ml Vial) 30 unit SUBCUT BEDTIME [facility] Last Admin: 09/01/21 20:47 Dose: 30 unit Documented by: Insulin Human Lispro (Insulin Lispro 100 Unit/Ml 3 Ml Vial) 0 unit SUBCUT QIDACHS [facility]; Protocol Last Admin: 09/02/21 11:29 Dose: Not Given Documented by: Lisinopril (Lisinopril 20 Mg Tablet) 20 mg PO DAILY [facility]; Protocol Last Admin: 09/02/21 08:15 Dose: 20 mg Documented by: Melatonin (Melatonin 3 Mg Tablet) 6 mg PO BEDTIME PRN PRN Reason: Insomnia Last Admin: 09/01/21 03:40 Dose: 6 mg Documented by: Melatonin (Melatonin 3 Mg Tablet) 6 mg PO BEDTIME [facility] Last Admin: 09/01/21 20:46 Dose: 6 mg Documented by: Metoprolol Succinate (Metoprolol Succinate Er 50 Mg Tab.Er.24h) 50 mg PO DAILY [facility]; Protocol Last Admin: 09/02/21 08:15 Dose: 50 mg Documented by: Ondansetron HCl (Ondansetron Hcl 4 Mg/2 Ml Vial) 4 mg IVPUSH ONCE PRN PRN Reason: Nausea and Vomiting Oxycodone HCl (Oxycodone Hcl Immed Release 5 Mg Tablet) 5 mg PO ONCE PRN PRN Reason: Pain, Severe (Pain Scale 7-10) Oxycodone HCl (Oxycodone Hcl Immed Release 5 Mg Tablet) 10 mg PO Q6H PRN PRN Reason: Pain, Severe (Pain Scale 7-10) Last Admin: 09/02/21 05:23 Dose: 10 mg Documented by: Pharmacy Consult (Consult Rx Perform Med Rec) 1 each MISCELLANE ONCE PRN PRN Reason: Consult order Sodium Chloride (0.9 % Sodium Chloride Flush 3 Ml Syringe) 3 ml IVFLUSH QSHIFT [facility] Last Admin: 09/02/21 08:16 Dose: Not Given Documented by: Time Spent With Patient Time: Total time spent is greater than 50% in coordination of care (as documented) at patient's floor/unit and/or counseling patient: Time with patient: 15 - 24 minutes Procedures Date of Service Date of Service: 09/02/21 Quality Stroke Does the patient have a stroke diagnosis?: No VTE Prior VTE?: No VTE Risk Level:: Medical - moderate - high VTE Device Contraindication: Treatment Not Indicated VTE Drug Contraindication: N/A - Med Ordered
--- NOTE | 2021-09-02 12:55 | P.DS_ITS ---
DS: Providers Provider Date of Service: 09/02/21 Date of admission: 08/18/21 12:55 Date of discharge: 09/02/21 Primary care physician: Shanta Haney MD Consults: 08/19/21 10:17 Consult to Vascular Surgery Routine Consulting Provider: Berto Sheppard Reason for consultation: amputated site infection 08/19/21 10:18 Consult to Infectious Diseases Routine Consulting Provider: Fannie Stoner Reason for consultation: amputation site infection DS: Diagnosis Discharge Diagnosis (1) Status post below-knee amputation: Status: Acute (2) Ulcer of left heel: Status: Acute DS: Summary Hospital Course Hospital Course: 56-year-old male admitted 08/18/2021 with nonhealing right toe ulcer status post amputation of same earlier in July. Was admitted for cellulitis around the shunt site cultures were negative from sent home with oral antibiotics. He returns with worsening erythema and pain at the site. Was admitted and given IV vancomycin. He was seen in consultation by vascular surgery who ultimately declared treatment a failure. On 09/01/2021 he underwent a right BKA without issue. From vascular surgery standpoint he is suitable for discharge to rehab facility. PICC line will be removed; discussed with ID; no need for further antibiotics Time Spent with Patient Time attestation: Total time spent providing and/or coordinating discharge services: Discharge coordination time: Greater than 30 minutes Quality: Stroke Does the patient have a stroke diagnosis?: No Physical Exam Vital Signs: Vital Signs: Last Vital Signs Temp 97.0 F 09/02/21 11:00 Pulse 80 09/02/21 11:00 Resp 20 09/02/21 11:00 BP 133/80 09/02/21 11:00 Pulse Ox 99 09/02/21 11:00 BMI result Body Mass Index 29.9 Const: Other: No acute distress Resp: Other: Clear to auscultation bilaterally no rales rhonchi wheezes Cardio: Other: No S4; positive S1-S2; no S3 murmurs rubs or gallops GI: Other: Soft nontender nondistended with normoactive bowel sounds Extrem: Other: Right stump site dressing clean dry and intact DS: Data Data Completed and Pending Completed studies during hospitalization [Text1]: Pending at discharge 08/26/21 10:38 Surgical [PTH] Routine Procedures Dilation of Right Ureter with Intraluminal Device, Via Natural or Artificial Opening Endoscopic (06/21/20) Extirpation of Matter from Right Ureter, Via Natural or Artificial Opening Endoscopic (06/21/20) Fluoroscopy of Right Kidney, Ureter and Bladder (06/21/20) Pending studies at discharge: Pending at discharge 08/31/21 13:03 Surgical [PTH] Routine Labs on day of discharge: Laboratory Results - last 24 hr 09/01/21 09/01/21 09/02/21 15:24 19:48 05:34 WBC 13.3 H RBC 3.99 L Hgb 10.2 L Hct 32.0 L MCV 80.2 MCH 25.6 L MCHC 31.9 RDW 15.3 Plt Count 415 H MPV 9.9 Immature Gran % (Auto) 0.8 H Neut % (Auto) 72.5 Lymph % (Auto) 15.1 L [place] % (Auto) 9.9 Eos % (Auto) 1.3 Baso % (Auto) 0.4 Lymph # (Auto) 2.0 [place] # (Auto) 1.3 H Eos # (Auto) 0.2 Baso # (Auto) 0.1 Abs Immat Gran (auto) 0.11 H Absolute Neuts (auto) 9.6 H Absolute Nucleated RBC 0.000 Nucleated RBC % (auto) 0.0 Sodium Potassium Chloride Carbon Dioxide Anion Gap BUN Creatinine Estim Creat Clear Calc Estimated GFR POC Glucose 179 H 203 H Fasting Glucose Calcium Total Bilirubin AST ALT Alkaline Phosphatase Total Protein Albumin 09/02/21 09/02/21 09/02/21 05:34 07:24 11:25 WBC RBC Hgb Hct MCV MCH MCHC RDW Plt Count MPV Immature Gran % (Auto) Neut % (Auto) Lymph % (Auto) [place] % (Auto) Eos % (Auto) Baso % (Auto) Lymph # (Auto) [place] # (Auto) Eos # (Auto) Baso # (Auto) Abs Immat Gran (auto) Absolute Neuts (auto) Absolute Nucleated RBC Nucleated RBC % (auto) Sodium 135 Potassium 4.4 Chloride 101 Carbon Dioxide 26 Anion Gap 12 BUN 15 Creatinine 0.84 Estim Creat Clear Calc 97.7 Estimated GFR > 60 POC Glucose 113 112 Fasting Glucose 117 H Calcium 8.7 Total Bilirubin 0.4 AST 46 H D ALT 48 H Alkaline Phosphatase 164 H D Total Protein 7.4 Albumin 3.2 L Discharge Plan Discharge Patient Disposition: Xfer Inpatient Rehab Fac Discharge Diagnosis: Status post below the knee amputation on right Referrals: Shanta Haney MD [Primary Care Provider] - 1 Week () Discharge Medications: Continued metoprolol succinate 50 mg tablet extended release 24 hr 50 mg PO DAILY Qty: 30 RF: 2 clopidogrel [Plavix] 75 mg tablet 75 mg PO DAILY Qty: 30 RF: 5 atorvastatin 20 mg tablet 1 tab PO BEDTIME RF: 0 oxycodone-acetaminophen [Percocet] 5-325 mg tablet 1 tab PO Q6H PRN (Reason: pain) Qty: 14 RF: 0 Jardiance 25 mg tablet 1 tab PO DAILY RF: 0 insulin lispro [Humalog KwikPen Insulin] 100 unit/mL insulin pen 17 unit SUBCUT BIDAC Qty: 15 RF: 5 Lantus Solostar U-100 Insulin 100 unit/mL (3 mL) insulin pen 30 unit subcut BEDTIME RF: 0 gabapentin 600 mg tablet 600 mg PO TID Qty: 90 RF: 4 aspirin 81 mg tablet,chewable 81 mg PO DAILY Qty: 30 RF: 5 diclofenac sodium 1 % gel 2 g topical QID PRN (Reason: pain) Qty: 100 RF: 1 acetaminophen [Tylenol 8 Hour] 650 mg tablet extended release 650 mg PO Q12H PRN (Reason: pain) Qty: 60 RF: 0 Discharge Orders: Discharge Order (Routine); Ordered 09/02/21 Ordered By: Hero Dunham Diet: advance to usual diet Activity on Discharge: As tolerated Stand Alone Forms: Patient Portal Discharge page Activity Restrictions/Additional Instructions: Wound care upon discharge: xeroform, 4x4 and Kerlix wrap to be changed daily, Right foot. foam dressing followed by Kerlix wrap to left heel. Please call Dr. Sheppard at [phone] for 2 week follow up for suture and staple removal Care Plan Goals: As per vascular surgery; dressing as ordered. Pain management adjustment by receiving physician Health Concerns: Complete physical therapy as per screen Plan of Treatment: As ordered Assessment: See above
[2021-09-02 13:15] LABS: Influenza A PCR NEGATIVE (Negative); Influenza B PCR NEGATIVE (Negative); Resp Syncy Virus RNA Qual PCR NEGATIVE (Negative); SARS COV2 PCR INHOUSE NEGATIVE (Negative)
--- NOTE | 2021-09-02 13:31 | PC.NURSE ---
FUNCTIONAL, INTACT, SINGLE LUMEN, PASV, 4-FIJIAN, 48CM PICC W/ CLEAN DRESSING REMOVED FROM RUE PER REQUEST. PT DENIES ANY COMPLAINTS R/T PICC AND RUE. NO NOTED RUE SWELLING/BRUISING. GAUZE/TEGADERM DRESSING APPLIED OVER ACCESS SITE. NO NOTED BLEEDING/OOZING S/P REMOVAL.
--- NOTE | 2021-09-02 14:46 | MHC.CM.PN ---
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
[2021-09-02 15:31] VITALS: BP 142/62; PULSE 77; RESP 16; TEMP 35.8; O2SAT 98
[2021-09-02 15:45] LABS: Glucose, Whole Blood 166 mg/dL (60-115)
[2021-09-02] MEDS: Insulin Lispro 100 UNIT/ML 3 ML VIAL SUBCUT ×2 (17:16→21:59)
[2021-09-02] MEDS: Enoxaparin Sodium 40 MG/0.4 ML SYRINGE SUBCUT (17:17)
[2021-09-02 19:39] VITALS: BP 163/77; PULSE 73; RESP 16; TEMP 36.3; O2SAT 98
[2021-09-02 19:49] LABS: Glucose, Whole Blood 194 mg/dL (60-115)
[2021-09-02] MEDS: Melatonin 3 MG TABLET 6 MG PO (21:58)
[2021-09-02] MEDS: Atorvastatin Calcium 20 MG TABLET PO (21:58)
[2021-09-02] MEDS: Insulin Glargine,Hum.rec.anlog 100 UNIT/ML 10 ML VIAL 30 UNIT SUBCUT (21:59)
[2021-09-03] VITALS: BP 165/69; PULSE 80; RESP 18; TEMP 36; O2SAT 99
[2021-09-03] MEDS: oxyCODONE HCl Immed Release 5 MG TABLET 10 MG PO ×3 (03:26→12:17)
[2021-09-03] MEDS: Acetaminophen 325 MG TABLET 650 MG PO ×2 (03:26→09:58)
[2021-09-03 03:30] VITALS: BP 142/78; PULSE 84; RESP 18; TEMP 36.8; O2SAT 98
[2021-09-03 05:47] LABS: MANUAL DIFF FLAG NO
[2021-09-03 06:06] LABS: Basophils Absolute Auto 0.1 X10*3/uL (0.0-0.2); Basophils Percent Auto 0.4 % (0-2); Eosinophils Absolute Auto 0.2 X10*3/uL (0.0-0.4); Eosinophils Percent Auto 1.7 % (0-4); Hematocrit 31.5 % (42.0-52.0); Hemoglobin 10.1 g/dl (14.0-18.0); Imm Gran Abs Auto 0.06 X10*3/uL (0.00-0.03); Imm Gran Pct Auto 0.5 % (0.0-0.4); Lymphocytes Absolute Auto 1.8 X10*3/uL (1.2-4.9); Lymphocytes Percent Auto 15.5 % (20-40); Mean Corpuscular HGB Conc 32.1 g/dl (31.0-36.0); Mean Corpuscular Hemoglobin 25.8 pg (27.0-33.0); Mean Corpuscular Volume 80.4 fL (80.0-98.0); Monocytes Absolute Auto 1.2 X10*3/uL (0.1-1.2); Neutrophils Absolute Auto 8.3 x10*3/uL (2.0-8.3); Neutrophils Percent Auto 71.9 % (45-73); Platelet Count 395 X10*3/uL (160-400); Red Blood Count 3.92 X10*6/uL (4.60-5.80); Red Cell Distribution Width 15.2 % (11.0-16.0); White Blood Count 11.6 X10*3/uL (4.8-10.8)
[2021-09-03 06:47] LABS: Alanine Aminotransferase 38 U/L (0-40); Albumin Level 3.1 g/dL (3.5-5.0); Alkaline Phosphatase 142 U/L (39-117); Anion Gap 11 (12-20); Aspartate Amino Transferase 37 U/L (5-37); Bilirubin Total 0.2 mg/dL (0.0-1.0); Blood Urea Nitrogen 14 mg/dL (9-16); Calcium 8.9 mg/dL (8.4-10.2); Carbon Dioxide 27 mmol/L (22-29); Creatinine Clr Calc Pharmacy 102.6; Estimated Glomerular Filt Rate > 60; Glucose Fasting 150 mg/dL (60-99); Total Protein 7.2 g/dL (6.5-8.0)
[2021-09-03 06:55] LABS: Chloride 103 mmol/L (96-108); Potassium 4.5 mmol/L (3.3-5.1); Sodium 138 mmol/L (135-145)
[2021-09-03] MEDS: oxyCODONE HCl Immed Release 5 MG TABLET PO (07:24)
[2021-09-03] MEDS: Heparin Sodium,Porcine Flush 50 UNITS, 0.9 % Sodium Chloride Flush 5 ML IVFLUSH (07:24)
[2021-09-03 07:40] VITALS: BP 131/89; PULSE 82; RESP 18; TEMP 36.3; O2SAT 100
[2021-09-03 07:45] LABS: Glucose, Whole Blood 127 mg/dL (60-115)
[2021-09-03] MEDS: Metoprolol Succinate ER 50 MG TAB.ER.24H PO (08:13)
[2021-09-03] MEDS: Aspirin 81 MG TAB.CHEW PO (08:13)
[2021-09-03] MEDS: Gabapentin 600 MG TABLET PO ×2 (08:14→13:56)
[2021-09-03] MEDS: lisinopriL 20 MG TABLET PO (08:14)
[2021-09-03] MEDS: Clopidogrel Bisulfate 75 MG TABLET PO (08:14)
[2021-09-03] MEDS: amLODIPine Besylate 10 MG TABLET PO (08:14)
[2021-09-03 10:12] VITALS: BP 131/89; PULSE 82; O2SAT 100
[2021-09-03 11:37] VITALS: BP 136/72; PULSE 74; RESP 18; TEMP 36.2; O2SAT 99
[2021-09-03 11:42] LABS: Glucose, Whole Blood 146 mg/dL (60-115)
--- NOTE | 2021-09-03 12:49 | MHC.CM.PN ---
AMBULANCE TRANSPORT REQUEST FOR 1400 TO [facility]. RN AND UNIT AWARE OF PLAN.
== END 2021-09-03 14:35 | DRG 305 ==
LOC: HO.ED 12:03 → HO.EDOVER 13:03 → HO.S3 16:30
PROVIDERS: Internal Medicine; Nurse Practitioner Acute Care; Physician Assistant Medical; Surgery Vascular Surgery; Admitting Provider Internal Medicine; Emergency Provider Emergency Medicine Emergency Medical Services; PCP Internal Medicine; Visit Provider Hospitalist
PROC: 0QBL0ZZ Excision of Right Tarsal, Open Approach (ICD-10-PCS; principal; 2021-08-23 10:00)
PROC: 0Y6P0Z0 Detachment at Right 1st Toe, Complete, Open Approach (ICD-10-PCS; principal; 2021-08-26 10:00)
PROC: 0Y6H0Z1 Detachment at Right Lower Leg, High, Open Approach (ICD-10-PCS; CPT 27880; principal; 2021-08-31 12:00)
DX: T87.43 Infection of amputation stump, right lower extremity (principal); E11.40 Type 2 diabetes mellitus with diabetic neuropathy, unspecified; E11.51 Type 2 diabetes mellitus with diabetic peripheral angiopathy without gangrene; M86.9 Osteomyelitis, unspecified; L03.115 Cellulitis of right lower limb; I10 Essential (primary) hypertension; I25.10 Atherosclerotic heart disease of native coronary artery without angina pectoris; E11.621 Type 2 diabetes mellitus with foot ulcer; L97.429 Non-pressure chronic ulcer of left heel and midfoot with unspecified severity; Z20.822 Contact with and (suspected) exposure to COVID-19; Z79.02 Long term (current) use of antithrombotics/antiplatelets; Z87.891 Personal history of nicotine dependence; Z79.4 Long term (current) use of insulin; Z79.82 Long term (current) use of aspirin; Z79.899 Other long term (current) drug therapy; E11.69 Type 2 diabetes mellitus with other specified complication
CPT/HCPCS: 0241U; 36415; 36573; 80048; 80053; 80202; 82565; 82947; 83605; 83690; 85025; 85027; 85610; 85652; 85730; 86140; 86850; 86900; 86901; 87040; 87071; 87077; 87186; 87205; 88305; 88307; 88311; 96361; 96365; 96366; 96375; 96376; 97116; 97162; 97530; 99285; C1751; J0131; J1170; J1642; J1650; J2060; J2185; J2250; J2270; J2405; J2543; J3010; J3370

== ENCOUNTER → 2021-09-28 08:41 | Outpatient (BNVA) | payer OTHER, SELFPAY | PROVIDERS: PCP Internal Medicine; Visit Provider Surgery Vascular Surgery | DX: Z47.81 Encounter for orthopedic aftercare following surgical amputation (principal); Z89.511 Acquired absence of right leg below knee | CPT/HCPCS: 99212 ==

== ENCOUNTER 2021-10-01 09:53 | Emergency (ER) | payer OTHER, SELFPAY ==
--- NOTE | ~2021-10-01 | XR_ITS ---
EXAMINATION: XR FEMUR, RIGHT CLINICAL INFORMATION: Fall. Status post akcza-[id number] amputation. COMPARISON: None TECHNIQUE: AP and lateral views of the right femur were obtained. FINDINGS: No fracture of the right femur. Right femoral head is well-seated within the acetabulum. There is mild narrowing of the right femoral acetabular joint space. There is a small osteophyte off the inferomedial right femoral head/neck junction. Prominent vascular calcifications noted within the right thigh. No focal soft tissue swelling identified. Vascular calcifications the pelvis also noted. Patient is status post right [id number] amputation. No suprapatellar joint effusion identified. XR/XR femur RT 2V IMPRESSION: No fracture of the right femur.
[2021-10-01 10:04] VITALS: BP 137/77; BP 170/88; PULSE 74; PULSE 77; RESP 16; TEMP 36.6; O2SAT 100; BMI 28.3
--- NOTE | 2021-10-01 10:18 | ED_ITS ---
HPI - Fall General Chief Complaint: Fall Stated Complaint: BKA BLEEDING S/P FALL,BKA 1 MONTH AGO PER EMS Time Seen by Provider: 10/01/21 10:13 Source: patient and old records reviewed Mode of arrival: EMS Limitations: no limitations History of Present Illness complaint: fall Onset (ago): hour(s) (2) Fall from: standing (using walker) Fall witnessed: yes, by family Place fall occurred: home Loss of consciousness: none Prolonged down time: no Symptoms prior to fall: none Context: tripped/slipped (on rug in house just got home from rehab s/p R BKA on 08/31 did well at rehab was on daily lovenox injections) Location of injury - extremities: right: knee (hit BKA site on floor and it started to bleed) Severity: moderate Quality: aching Associated symptoms (after fall): other (bleeding has stopped, denies hitting head or any other injury) Related Data Home Medications Medication Instructions Recorded Confirmed atorvastatin 20 mg tablet 1 tab PO BEDTIME 03/24/21 08/18/21 insulin glargine 100 unit/mL 30 unit SUBCUT BEDTIME ml 05/06/21 08/18/21 (3 mL) subcutaneous pen (Lantus Solostar U-100 Insulin) empagliflozin 25 mg tablet 1 tab PO DAILY 08/14/21 08/18/21 (Jardiance) Previous Rx's Medication Instructions Recorded aspirin 81 mg chewable tablet 81 mg PO DAILY #30 tab 05/06/21 gabapentin 600 mg tablet 600 mg PO TID #90 tab 05/06/21 insulin lispro 100 unit/mL 17 unit (0.17 mL) SUBCUT BIDAC 05/06/21 #15 subcutaneous pen (Humalog KwikPen ml (U-100) Insulin) acetaminophen 650 mg 650 mg PO Q12H PRN #60 tab 06/17/21 tablet,extended release (Tylenol 8 Hour) diclofenac sodium 1 % topical gel 2 g TOPICAL QID PRN #100 g 06/17/21 metoprolol succinate 50 mg 50 mg PO DAILY #30 tab 08/02/21 tablet,extended release 24 hr clopidogrel 75 mg tablet (Plavix) 75 mg PO DAILY #30 tab 08/03/21 oxycodone 5 mg tablet 10 mg PO Q4H PRN #60 tab 01/07/22 Allergies Allergy/AdvReac Type Severity Reaction Status Date / Time No Known Allergies Allergy Verified 09/28/21 09:00 [No Known Allergies*] Review of Systems Verdana 4l Review of Systems: Verdana 4d Verdana 4d Constitutional : No Fever, No Chills ENT/Mouth : No Ear Pain, No Hoarseness, No sore throat Eyes: No Eye Pain, No Swelling, No Redness, No Foreign Body Cardiovascular : No Chest Pain, No SOB Respiratory : No Cough, No Dyspnea GastrointestinalGastrointestinal : No Nausea, No Vomiting, No Diarrhea, No abdominal Pain Genitourinary : No Dysuria, No Hematuria Musculoskeletal : positive joint pain, No Myalgias, No Joint Swelling Skin : No Skin lacerations, No rash Neuro : No Weakness, No Numbness, No Loss of Consciousness, No Dizziness, No Headache Psych : No Anxiety/Panic, No Depression Heme/Lymph: no easy bruising, no Lymphadenopathy Endocrine : No Polyuria, No Polydipsia All other systems reviewed and are negative COUNT INCLUDES THE [facility] Past Medical History Attestation statement: The following information was validated with the patient. Medical History Alcohol abuse Amputation stump complication Arthritis CAD (coronary artery disease) Chronic pancreatitis Chronic 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 Diabetes mellitus with hyperglycemia, with long-term current use of insulin Essential hypertension Failure of outpatient treatment Hyperlipidemia Increased BMI Intractable left heel pain Kidney calculus Neuropathy PAD (peripheral artery disease) Type 2 diabetes mellitus with diabetic polyneuropathy Type 2 diabetes mellitus with hyperglycemia Surgical History History of right below knee amputation Hx of heart artery stent Hx of lithotripsy S/P debridement Status post laparoscopic cholecystectomy Family History Family History Mother [place] (myocardial infarction), Onset Age: 64 Diabetes mellitus HTN (hypertension) Maternal Grandmother Diabetes mellitus Social History Social History Household Members: Spouse Household Members Other:: and daughter Housing: Apartment Do you presently have visiting nurse or other home services: Yes (vna) Alcohol intake: current Alcohol intake frequency: does not drink Patient Tobacco Use Status: Former Tobacco user Quit Date: 3 weeks ago Tobacco use type: Cigarette Cigarette Packs Per Day: 1 Cigarettes Per Day: 20.0 Years Smoked: 28 Smoked in Last 30 Days: No Second Hand Smoke Exposure: Yes Use of substances other than those prescribed or required for medical reasons: No Substance Use Type: Marijuana Advance Directives: No Advance Directives Information Provided: No Advance Directives Date on File: 04/17/21 service: No Current occupational status: unemployed Physical Exam Verdana 4l Vital Signs: Verdana 4d Verdana 4d Vital Signs: Verdana 4d Verdana 4Bd Last Vital Signs Verdana 4d Polystyrene Bead Molder New 4d Polystyrene Bead Molder New 4d Temp 97.8 F 10/01/21 10:04 Polystyrene Bead Molder New 4d Pulse 74 10/01/21 10:04 Polystyrene Bead Molder New 4d Resp 16 10/01/21 10:04 BP 137/77 10/01/21 10:04 Pulse Ox 100 10/01/21 10:04 BMI result Body Mass Index 28.3 Appearance: Alert. Oriented X3. No acute distress. Eyes: Pupils equal, round and reactive to light. ENT: Pharynx normal. Atraumatic Neck: Normal inspection. Neck supple. CVS: Normal heart rate and rhythm. Pulses normal. Respiratory: No respiratory distress. Breath sounds normal. Abdomen: Soft and nontender. Skin: Skin warm and dry. Normal skin color. Normal skin turgor. Extremities: No lower extremity edema. R BKA site well healing lateral aspect small area that is dehisced partially but not open clot has formed less than 1cm, bleeding has stopped - I cleansed the area with betadine and covered with sterile dressings and ej wrap I did not have bleeding on my exam. Neuro: Oriented X 3. No motor deficit. No sensory deficit. MDM - Fall MDM Narrative Medical decision making narrative: 56 yo male with PMH of DM, PVD, chronic ulcers on feet s/p BKA 08/31 here with c/o mechanicall fall no other injuries but his his BKA on the floor resulting in bleeding he was on lovenox injections at rehab (proph) but not on DOAC now. No h ead trauma. Bleeding has stopped - very small partial wound dehiscence. I have cleaned and dressed the wound with sterile dressings. Xray ordered, PO pain medications. Discharge Plan Discharge Clinical Impression: Superficial dehiscence of wound Patient Disposition: Home, Self-Care Instructions: Abrasion (ED), Wound Dehiscence (ED) Additional Instructions: return to ED for any worsening symptoms or concerns remove dressing in 24 hours, monitor for bleeding No fracture of the right femur. Right femoral head is well-seated within the acetabulum. There is mild narrowing of the right femoral acetabular joint space. There is a small osteophyte off the inferomedial right femoral head/neck junction. Prominent vascular calcifications noted within the right thigh. No focal soft tissue swelling identified. Vascular calcifications the pelvis also noted. Patient is status post right lewyr-sku-bhvi amputation. No suprapatellar joint effusion identified.? XR/XR femur RT 2V IMPRESSION: No fracture of the right femur. Prescriptions: No Action metoprolol succinate 50 mg tablet extended release 24 hr 50 mg PO DAILY Qty: 30 2RF clopidogrel [Plavix] 75 mg tablet 75 mg PO DAILY Qty: 30 5RF atorvastatin 20 mg tablet 1 tab PO BEDTIME 0RF Jardiance 25 mg tablet 1 tab PO DAILY 0RF oxycodone 5 mg Tablet 10 mg PO Q4H PRN (Reason: Pain, Moderate (Pain Scale 4-6) Qty: 60 0RF insulin lispro [Humalog KwikPen Insulin] 100 unit/mL insulin pen 17 unit SUBCUT BIDAC Qty: 15 5RF Rx Instructions: BEFORE BREAKFAST AND DINNER Lantus Solostar U-100 Insulin 100 unit/mL (3 mL) insulin pen 30 unit subcut BEDTIME 0RF gabapentin 600 mg tablet 600 mg PO TID Qty: 90 4RF aspirin 81 mg tablet,chewable 81 mg PO DAILY Qty: 30 5RF diclofenac sodium 1 % gel 2 g topical QID PRN (Reason: pain) Qty: 100 1RF Rx Instructions: apply to single elbow, wrist or hand; for hand includes palm/fingers/back of hand acetaminophen [Tylenol 8 Hour] 650 mg tablet extended release 650 mg PO Q12H PRN (Reason: pain) Qty: 60 0RF Referrals: Berto Sheppard MD [Physician] - 3 days (call Monday)
[2021-10-01] MEDS: Morphine Sulfate Immed Release 15 MG TABLET PO (10:48)
[2021-10-01 13:37] VITALS: BP 138/66; PULSE 63; RESP 16; O2SAT 100
== END 2021-10-01 14:00 | disposition home or self-care (01) ==
PROVIDERS: Emergency Provider Emergency Medicine; PCP Internal Medicine
DX: T87.81 Dehiscence of amputation stump (principal); Y83.5 Amputation of limb(s) as the cause of abnormal reaction of the patient, or of later complication, without mention of misadventure at the time of the procedure; E11.9 Type 2 diabetes mellitus without complications; I10 Essential (primary) hypertension; E78.5 Hyperlipidemia, unspecified; F17.200 Nicotine dependence, unspecified, uncomplicated; Z79.02 Long term (current) use of antithrombotics/antiplatelets; Z79.4 Long term (current) use of insulin; Z79.82 Long term (current) use of aspirin; Z79.899 Other long term (current) drug therapy
CPT/HCPCS: 73552; 99284

== ENCOUNTER 2021-10-07 07:58 | Outpatient (RCR) | payer OTHER, SELFPAY | END 2022-03-03 14:37 | disposition home or self-care (01) | LOC: HO.WCC 07:58 | PROVIDERS: PCP Internal Medicine; Visit Provider Surgery | DX: E11.621 Type 2 diabetes mellitus with foot ulcer (principal); L97.422 Non-pressure chronic ulcer of left heel and midfoot with fat layer exposed; E11.622 Type 2 diabetes mellitus with other skin ulcer; L97.812 Non-pressure chronic ulcer of other part of right lower leg with fat layer exposed; T87.81 Dehiscence of amputation stump; Z89.511 Acquired absence of right leg below knee; Z79.2 Long term (current) use of antibiotics | CPT/HCPCS: 11042; 11043; 87071; 87073; 87077; 87186; 87205; 97597; 99212 ==

== ENCOUNTER → 2021-10-28 09:02 | Outpatient (BNVA) | payer OTHER, SELFPAY | PROVIDERS: PCP Internal Medicine; Visit Provider Surgery Vascular Surgery | DX: L97.429 Non-pressure chronic ulcer of left heel and midfoot with unspecified severity (principal); Z89.511 Acquired absence of right leg below knee | CPT/HCPCS: 99212 ==

== ENCOUNTER 2021-11-07 19:34 | Observation (INO) | payer OTHER, SELFPAY ==
--- NOTE | ~2021-11-07 | XR_ITS ---
EXAMINATION: XR TIBIA AND FIBULA, RIGHT CLINICAL INFORMATION: Stump infection, question osteo- COMPARISON: None TECHNIQUE: AP and lateral views of the right tibia and fibula were obtained. FINDINGS: Status post amputation through the proximal diaphyses of the tibia and fibula. Osseous margins appear well delineated, with no erosions identified. There is soft tissue swelling at the amputation site. Extensive vascular calcifications are present. Alignment across the knee is anatomic. There is mild tricompartmental joint space narrowing with spurring, most prominently at the medial compartment. No significant knee effusion. XR/XR tibia fibula RT 2V IMPRESSION: Soft tissue swelling at the amputation site, without specific radiographic findings of osteomyelitis. If clinically warranted, this may be better assessed with MRI.
[2021-11-07 19:40] VITALS: BP 132/88; PULSE 88; O2SAT 99
[2021-11-07 19:55] VITALS: BP 135/70; PULSE 84; RESP 20; TEMP 36.8; O2SAT 98; BMI 28.3
[2021-11-07 20:07] LABS: MANUAL DIFF FLAG NO
[2021-11-07 20:08] LABS: Basophils Absolute Auto 0.1 X10*3/uL (0.0-0.2); Basophils Percent Auto 0.6 % (0-2); Eosinophils Absolute Auto 0.5 X10*3/uL (0.0-0.4); Eosinophils Percent Auto 3.9 % (0-4); Hematocrit 36.9 % (42.0-52.0); Hemoglobin 11.1 g/dl (14.0-18.0); Imm Gran Abs Auto 0.09 X10*3/uL (0.00-0.03); Imm Gran Pct Auto 0.7 % (0.0-0.4); Lymphocytes Absolute Auto 2.4 X10*3/uL (1.2-4.9); Lymphocytes Percent Auto 18.9 % (20-40); Mean Corpuscular HGB Conc 30.1 g/dl (31.0-36.0); Mean Corpuscular Hemoglobin 25.3 pg (27.0-33.0); Mean Corpuscular Volume 84.2 fL (80.0-98.0); Mean Platelet Volume 10.8 fL (9.4-12.4); Monocytes Absolute Auto 1.1 X10*3/uL (0.1-1.2); Monocytes Percent Auto 8.9 % (2-11); Neutrophils Absolute Auto 8.3 x10*3/uL (2.0-8.3); Platelet Count 289 X10*3/uL (160-400); Red Blood Count 4.38 X10*6/uL (4.60-5.80); Red Cell Distribution Width 15.8 % (11.0-16.0); White Blood Count 12.4 X10*3/uL (4.8-10.8)
[2021-11-07 20:29] LABS: Anion Gap 14 (12-20); Blood Urea Nitrogen 21 mg/dL (9-16); Carbon Dioxide 22 mmol/L (22-29); Chloride 106 mmol/L (96-108); Creatinine Clr Calc Pharmacy 76.6; Estimated Glomerular Filt Rate > 60; Glucose Random 165 mg/dL (60-115); Potassium 3.9 mmol/L (3.3-5.1); Sodium 138 mmol/L (135-145)
[2021-11-08] VITALS (7 sets, daily range): BP systolic 148–172; BP diastolic 75–83; PULSE 72–95; RESP 12–18; TEMP 36–36.7; O2SAT 95–98
[2021-11-08 03:19] LABS: Lactic Acid 0.9 mmol/L (0.5-2.0)
--- NOTE | 2021-11-08 03:34 | ED_ITS ---
HPI - Skin/Abscess/Foreign Bdy General Chief complaint: Skin/Abscess/Foreign Body Stated complaint: fall 1 week ago Time Seen by Provider: 11/07/21 23:02 Source: patient Mode of arrival: ambulatory Limitations: no limitations History of Present Illness HPI narrative: Patient comes to the emergency room complaining of an infection in his right stump. Patient had an amputation on 08/31/2021. Patient reports that he fell 1 week ago. Since then he has had increased pain. Two days ago he started having necrotic tissue and erythema around the stump area on the lateral aspect. Patient states he had subjective fever, chills earlier this morning. Yesterday, patient noted drainage coming out of the stump. Patient states that it is very tender to touch, which was not like that 3 days ago Related Data Home Medications Medication Instructions Recorded Confirmed atorvastatin 20 mg tablet 1 tab PO BEDTIME 03/24/21 10/27/21 insulin glargine 100 unit/mL (3 30 unit SUBCUT BEDTIME ml 05/06/21 10/27/21 mL) subcutaneous pen (Lantus Solostar U-100 Insulin) empagliflozin 25 mg tablet 1 tab PO DAILY 08/14/21 10/27/21 (Jardiance) gabapentin 800 mg tablet 800 mg PO TID 10/27/21 10/27/21 oxycodone-acetaminophen 5 mg-325 1 tab PO Q6H PRN 10/28/21 mg tablet Previous Rx's Medication Instructions Recorded aspirin 81 mg chewable tablet 81 mg PO DAILY #30 tab 05/06/21 insulin lispro 100 unit/mL 17 unit (0.17 mL) SUBCUT BIDAC #15 05/06/21 subcutaneous pen (Humalog KwikPen ml (U-100) Insulin) acetaminophen 650 mg 650 mg PO Q12H PRN #60 tab 06/17/21 tablet,extended release (Tylenol 8 Hour) clopidogrel 75 mg tablet (Plavix) 75 mg PO DAILY #30 tab 08/03/21 metoprolol succinate 50 mg 50 mg PO DAILY #30 tab 10/27/21 tablet,extended release 24 hr nabumetone 500 mg tablet 500 mg PO DAILY PRN #20 tab 10/27/21 pen needle, diabetic 31 gauge x #100 ea 10/27/21/16 (BD Ultra-Fine Short Pen Needle) sertraline 50 mg tablet 50 mg PO DAILY #30 tab 10/27/21 sildenafil 50 mg tablet (Viagra) 50 mg PO DAILY PRN #10 tab 10/27/21 Allergies Allergy/AdvReac Type Severity Reaction Status Date / Time No Known Allergies Allergy Verified 10/28/21 09:30 [No Known Allergies*] Review of Systems Review of Systems: Constitutional : No Weight loss, No Fever, No Chills, No Night Sweats, No Fatigue, No Malaise ENT/Mouth : No Hearing loss, No Ear Pain, No Nasal Congestion, No Sinus Pain, No Hoarseness, No sore throat, No Rhinorrhea, No Swallowing Difficulty Eyes: No Eye Pain, No Swelling, No Redness, No Foreign Body, No Discharge, No Vision Changes Cardiovascular : No Chest Pain, No SOB, No Dyspnea on Exertion, No Orthopnea, No Edema, No Palpitations Respiratory : No Cough, No Sputum, No Wheezing, No Smoke Exposure, No Dyspnea Gastrointestinal : No Nausea, No Vomiting, No Diarrhea, No Constipation, No abdominal Pain, No Hematochezia, No Melena Genitourinary : no irregular bleeding, No Dysuria, No Urinary Frequency, No Hematuria, No Urinary Incontinence, No Urgency, No Flank Pain, No Urinary Flow Changes, No Hesitancy Musculoskeletal : Complaining of skin/stump infection right side lower extremity Skin : No Skin Lesions, No rash, see above Neuro : No Weakness, No Numbness, No Paresthesias, No Loss of Consciousness, No Dizziness, No Headache Psych : No Anxiety/Panic, No Depression, No SI/HI/AH/VH, No Social Issues, Heme/Lymph: No Bruising, No Bleeding,No Lymphadenopathy Endocrine : No Polyuria, No Polydipsia, No Temperature Intolerance [facility] Past Medical History Medical History Alcohol abuse Amputation stump complication Arthritis CAD (coronary artery disease) Chronic pancreatitis Chronic 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 Diabetes mellitus with hyperglycemia, with long-term current use of insulin Diabetes mellitus, with long-term current use of insulin Dyslipidemia Erectile dysfunction Essential hypertension Failure of outpatient treatment Hyperlipidemia Increased BMI Intractable left heel pain Kidney calculus Major depression, recurrent Neuropathy PAD (peripheral artery disease) Type 2 diabetes mellitus with diabetic polyneuropathy Type 2 diabetes mellitus with hyperglycemia Surgical History History of right below knee amputation Hx of heart artery stent Hx of lithotripsy S/P debridement Status post laparoscopic cholecystectomy Family History Family History Mother [place] (myocardial infarction), Onset Age: 64 Diabetes mellitus HTN (hypertension) Maternal Grandmother Diabetes mellitus Social History Social History Household Members: Spouse Household Members Other:: and daughter Housing: Apartment Do you presently have visiting nurse or other home services: Yes (vna) Alcohol intake: current Alcohol intake frequency: does not drink Patient Tobacco Use Status: Former Tobacco user Quit Date: 3 weeks ago Tobacco use type: Cigarette Cigarette Packs Per Day: 1 Cigarettes Per Day: 20.0 Years Smoked: 28 e-Cigarette/Vaping Use: Never Used Second Hand Smoke Exposure: Yes Substance Use Type: Marijuana Advance Directives: No Advance Directives Information Provided: Yes Advance Directives Date on File: 04/17/21 service: No Current occupational status: unemployed Physical Exam Vital Signs: Vital Signs: Last Vital Signs Temp 98.0 F 11/08/21 02:26 Pulse 85 11/08/21 02:26 Resp 16 11/08/21 03:53 BP 170/75 H 11/08/21 02:26 Pulse Ox 96 11/08/21 02:26 BMI result Body Mass Index 28.3 Const: Other: Appearance: Alert. Oriented X3. No acute distress. Eyes: Pupils equal, round and reactive to light. ENT: Pharynx normal. Neck: Normal inspection. Neck supple. No lymph nodes noted. No crepitus CVS: Normal heart rate and rhythm. Pulses normal. Normal S1 and S2 Respiratory: No respiratory distress. Breath sounds normal. No Wheezing. No rales Abdomen: Soft and nontender. No rigidity. No distention. Skin: Skin warm and dry. Normal skin color. See lower extremity below Extremities: No lower extremity edema. Stump on the right lower extremity is tender to touch, warm, 2 cm x 1 cm necrotic eschar. No discharge. See pictures below Neuro: Oriented X 3. No motor deficit. No sensory deficit. Moving all extremities. No slurred speech. CN 2 through 12 grossly intact Psych: calm, cooperative, normal affect Course Course Course Narrative: At this time, sepsis is not suspected. White blood cell count is at baseline, lactic acid within normal limits. Patient will be treated empirically with vancomycin and Zosyn. I discussed the patient with Dr. Cast, patient being admitted MDM - Skin/Abscess/Foreign Bdy Lab Data Result diagrams: 11/07/21 20:03 11/07/21 20:03 Labs: Lab Results 11/07/21 11/07/21 11/08/21 Range/Units 20:03 20:03 02:41 WBC 12.4 H (4.8-10.8) X10*3/uL RBC 4.38 L (4.60-5.80) X10*6/uL Hgb 11.1 L (14.0-18.0) g/dl Hct 36.9 L (42.0-52.0) % MCV 84.2 (80.0-98.0) fL MCH 25.3 L (27.0-33.0) pg MCHC 30.1 L (31.0-36.0) g/dl RDW 15.8 (11.0-16.0) % Plt Count 289 D (160-400) X10*3/uL MPV 10.8 (9.4-12.4) fL Immature Gran % (Auto) 0.7 H (0.0-0.4) % Neut % (Auto) 67.0 (45-73) % Lymph % (Auto) 18.9 L (20-40) % Marshall % (Auto) 8.9 (2-11) % Eos % (Auto) 3.9 (0-4) % Baso % (Auto) 0.6 (0-2) % Lymph # (Auto) 2.4 (1.2-4.9) X10*3/uL Marshall # (Auto) 1.1 (0.1-1.2) X10*3/uL Eos # (Auto) 0.5 H (0.0-0.4) X10*3/uL Baso # (Auto) 0.1 (0.0-0.2) X10*3/uL Abs Immat Gran (auto) 0.09 H (0.00-0.03) X10*3/uL Absolute Neuts (auto) 8.3 (2.0-8.3) x10*3/uL Absolute Nucleated RBC 0.000 (0.0-0.012) X10*3/uL Nucleated RBC % (auto) 0.0 (0.0-0.2) /100WBC Sodium 138 (135-145) mmol/L Potassium 3.9 (3.3-5.1) mmol/L Chloride 106 (96-108) mmol/L Carbon Dioxide 22 (22-29) mmol/L Anion Gap 14 (12-20) BUN 21 H (9-16) mg/dL Creatinine 1.19 (0.5-1.4) mg/dL Estim Creat Clear Calc 76.6 Estimated GFR > 60 Random Glucose 165 H D (60-115) mg/dL Lactic Acid 0.9 (0.5-2.0) mmol/L Calcium 9.0 (8.4-10.2) mg/dL Discharge Plan Discharge Clinical Impression: Amputation stump infection Patient Disposition: Admitted As Inpatient Prescriptions: No Action clopidogrel [Plavix] 75 mg tablet 75 mg PO DAILY Qty: 30 5RF atorvastatin 20 mg tablet 1 tab PO BEDTIME 0RF Jardiance 25 mg tablet 1 tab PO DAILY 0RF insulin lispro [Humalog KwikPen Insulin] 100 unit/mL insulin pen 17 unit SUBCUT BIDAC Qty: 15 5RF Rx Instructions: BEFORE BREAKFAST AND DINNER Lantus Solostar U-100 Insulin 100 unit/mL (3 mL) insulin pen 30 unit subcut BEDTIME 0RF aspirin 81 mg tablet,chewable 81 mg PO DAILY Qty: 30 5RF acetaminophen [Tylenol 8 Hour] 650 mg tablet extended release 650 mg PO Q12H PRN (Reason: pain) Qty: 60 0RF gabapentin 800 mg tablet 800 mg PO TID 0RF metoprolol succinate 50 mg tablet extended release 24 hr 50 mg PO DAILY Qty: 30 2RF sertraline 50 mg tablet 50 mg PO DAILY Qty: 30 1RF sildenafil [Viagra] 50 mg tablet 50 mg PO DAILY PRN (Reason: sexual activity) Qty: 10 0RF Rx Instructions: administer 30 minutes to 4 hours before activity nabumetone 500 mg tablet 500 mg PO DAILY PRN (Reason: severe joint pain only ) Qty: 20 0RF (DME) pen needle, diabetic [BD Ultra-Fine Short Pen Needle] 31 gauge x 5/16 needle See Rx Instructions .Route Qty: 100 5RF Rx Instructions: As directed TID AC oxycodone-acetaminophen 5-325 mg tablet 1 tab PO Q6H PRN (Reason: pain) 0RF
[2021-11-08] MEDS: Morphine Sulfate 2 MG/ML CARTRIDGE IVPUSH ×4 (03:53→18:44)
[2021-11-08] MEDS: Piperacillin Sodium/Tazobactam 3.375 GM in 0.9 % Sodium Chloride 50 ML IV ×4 (03:54→21:43)
[2021-11-08] MEDS: vancomycin HCL 1,000 MG in 0.9 % Sodium Chloride 250 ML 270 MG IV (04:21)
[2021-11-08 07:15] LABS: COVID-19 Test Negative (Negative)
[2021-11-08 08:26] LABS: C Reactive Protein 11.55 mg/dL (< or = 0.50)
--- NOTE | 2021-11-08 08:35 | P.HPHOSP_ITS ---
History of Present Illness Date of Service: 11/08/21 Chief Complaint: drainge from amputation site This is a 56 yo F with a PMH of DM, PAD, multiple prior amputations, HTN who is s/p R BKA in August 2021. Patient was discharged from [facility] [place]01/[place] and was doing fairly well. He had spent a short stay at a rehab facility and now has been home for a few weeks. He reports that he has a VNA coming in daily for his L heel ucleration and BKA site. He reports in the last 1-2 weeks he has had several falls and had another one several days ago. He fell on the stump site and since then he has had increased swelling, warmth and pain. He reports that he started having thin bloody discharge and became worried so he presented to the ED. He does endorse feeling feverish on the day prior to admission. In the ED, his work up revealed an XR which showed soft tissue swelling at the stump. There was a noted eschar and some serosanginous drainage. In light of his history of prior BKA/infections/DM/PAD -- concern over cellulitis was raised and he will be now be admitted for further work up and treatment. Review of Systems Review of Systems: negative except HPI [facility] Medical History Alcohol abuse Amputation stump complication Arthritis CAD (coronary artery disease) Chronic pancreatitis Chronic 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 Diabetes mellitus with hyperglycemia, with long-term current use of insulin Diabetes mellitus, with long-term current use of insulin Dyslipidemia Erectile dysfunction Essential hypertension Failure of outpatient treatment Hyperlipidemia Increased BMI Intractable left heel pain Kidney calculus Major depression, recurrent Neuropathy PAD (peripheral artery disease) Type 2 diabetes mellitus with diabetic polyneuropathy Type 2 diabetes mellitus with hyperglycemia Family History Mother [place] (myocardial infarction), Onset Age: 64 Diabetes mellitus HTN (hypertension) Maternal Grandmother Diabetes mellitus Surgical History History of right below knee amputation Hx of heart artery stent Hx of lithotripsy S/P debridement Status post laparoscopic cholecystectomy Social History Household Members: Spouse Household Members Other:: and daughter Housing: Apartment Do you presently have visiting nurse or other home services: Yes (vna) Alcohol intake: current Alcohol intake frequency: does not drink Patient Tobacco Use Status: Former Tobacco user Quit Date: 3 weeks ago Tobacco use type: Cigarette Cigarette Packs Per Day: 1 Cigarettes Per Day: 20.0 Years Smoked: 28 e-Cigarette/Vaping Use: Never Used Second Hand Smoke Exposure: Yes Substance Use Type: Marijuana Advance Directives: No Advance Directives Information Provided: Yes Advance Directives Date on File: 04/17/21 service: No Current occupational status: unemployed Meds Allergies Allergy/AdvReac Type Severity Reaction Status Date / Time No Known Allergies Allergy Verified 10/28/21 09:30 [No Known Allergies*] Active Medications: Current Medications Acetaminophen (Acetaminophen 325 Mg Tablet) 650 mg PO Q6H PRN PRN Reason: Pain, Mild (Pain Scale 1-3) Lactated Ringer's (Lr) 1,000 mls @ 100 mls/hr IVCONT .Q10H [facility] Stop: 11/09/21 04:29 Vancomycin HCl 1,000 mg/ (Sodium Chloride) 270 mls @ 270 mls/hr IV Q24H [facility] Piperacillin Sod/Tazobactam (Sod 3.375 gm/ Sodium Chloride) 50 mls @ 100 mls/hr IV Q6H [facility] Pharmacy Consult (Consult Rx Vancomycin Dosing) 1 each MISCELLANE DAILY PRN PRN Reason: Consult order Pharmacy Consult (Consult Rx Vancomycin Dosing) 1 each MISCELLANE DAILY PRN PRN Reason: Consult order Sodium Chloride (0.9 % Sodium Chloride Flush 3 Ml Syringe) 3 ml IVFLUSH QSHIFT [facility] Home Medications Medication Instructions Recorded Confirmed Last Taken Type insulin glargine 100 unit/mL (3 22 unit SUBCUT BEDTIME ml 05/06/21 11/08/21 11/07/21 History mL) subcutaneous pen (Lantus Solostar U-100 Insulin) empagliflozin 25 mg tablet 1 tab PO DAILY 08/14/21 11/08/21 11/07/21 History (Jardiance) atorvastatin 20 mg tablet 1 tab PO BEDTIME 11/08/21 11/08/21 11/07/21 History gabapentin 600 mg tablet 1 tab PO TID 11/08/21 11/08/21 11/07/21 History ibuprofen 800 mg tablet 800 mg PO TID PRN 11/08/21 11/08/21 Unknown History Physical Exam Vital Signs and Narrative: Vital Signs: Last Vital Signs Temp 98.0 F 11/08/21 02:26 Pulse 76 11/08/21 06:22 Resp 12 11/08/21 06:22 BP 171/83 H 11/08/21 06:22 Pulse Ox 95 11/08/21 06:22 BMI result Body Mass Index 28.3 Const: Other: Constitutional - Awake and Alert, No apparent distress Eyes - PERRLA, EOMI Cardiovascular - S1S2, RRR Respiratory - Normal lung expansion, Normal respiratory effort, No respiratory distress, CTA bilaterally Gastrointestinal - NT / ND; +BS; No rebound or guarding - No CVA tenderness Extremities - see pictures below Musculoskeletal - Normal inspection, normal ROM Skin - see pictures below Neurological - Alert & oriented x3, No focal deficit Psychological - Appropriate affect Skin: Other: R BKA Site: L Heel Results Labs CBC and Chem 7: 11/07/21 20:03 11/07/21 20:03 Labs: Laboratory Results - last 24 hr 11/07/21 11/07/21 11/08/21 20:03 20:03 02:41 MCV 84.2 MCH 25.3 L MCHC 30.1 L RDW 15.8 Plt Count 289 D MPV 10.8 Immature Gran % (Auto) 0.7 H Neut % (Auto) 67.0 Lymph % (Auto) 18.9 L Boyle % (Auto) 8.9 Eos % (Auto) 3.9 Baso % (Auto) 0.6 Lymph # (Auto) 2.4 Boyle # (Auto) 1.1 Eos # (Auto) 0.5 H Baso # (Auto) 0.1 Abs Immat Gran (auto) 0.09 H Absolute Neuts (auto) 8.3 Absolute Nucleated RBC 0.000 Nucleated RBC % (auto) 0.0 Anion Gap 14 Estim Creat Clear Calc 76.6 Estimated GFR > 60 Random Glucose 165 H D Lactic Acid 0.9 Calcium 9.0 C-Reactive Protein 11.55 H COVID-19 ([facility]) COVID-19 Clin Com 11/08/21 06:38 MCV MCH MCHC RDW Plt Count MPV Immature Gran % (Auto) Neut % (Auto) Lymph % (Auto) Boyle % (Auto) Eos % (Auto) Baso % (Auto) Lymph # (Auto) Boyle # (Auto) Eos # (Auto) Baso # (Auto) Abs Immat Gran (auto) Absolute Neuts (auto) Absolute Nucleated RBC Nucleated RBC % (auto) Anion Gap Estim Creat Clear Calc Estimated GFR Random Glucose Lactic Acid Calcium C-Reactive Protein COVID-19 ([facility]) Negative COVID-19 Clin Com See Note Imaging Radiologist's Impressions: Impressions Tibia/Fibula X-Ray 11/08/21 04:35 IMPRESSION: Soft tissue swelling at the amputation site, without specific radiographic findings of osteomyelitis. If clinically warranted, this may be better assessed with MRI. Assessment and Plan (1) Amputation stump infection: Status: Acute Plan This is a 56 yo F with a PMH of DM, PAD, multiple prior amputations, HTN who is s/p R BKA in August 2021. He now presents with increasing pain, swelling and drainage from his stump site. There is concern over cellulitis and he will be admitted for further treatment. 1. Possible Cellulitis at the R BKA stump cite There is swelling of the stump site and minimal erythma (which appears improved compared to the pictures the patient has on his phone). May be related to his fall but in light of history of DM and multiple prior infections and amputations -- will cover empiric with IV zosyn + vancomcyin Will get Vascular Surgery input Check CRP / ESR Further imaging after vascular evaluation 3. JARRETT SCr baseline around 0.7 to 0.8 -- now nearly 1.2 (about a 50% increase) renally dose meds and give 2L IVF repeat chem tomorrow 3. DM hold oral meds use basal + bolus 4. PAD continue antiplatelet agents 5. HTN continuse baseline meds once med rec completed. 6. Chronic L heel ucleration healing daily dressing changes will consult music library assistant Full Code DVT pptx, high risk -- subcut. lovenox Quality Stroke Does the patient have a stroke diagnosis?: No VTE Prior VTE?: No VTE Risk Level:: Medical - moderate - high VTE Device Contraindication: Treatment Not Indicated VTE Drug Contraindication: N/A - Med Ordered
[2021-11-08] MEDS: Lactated Ringers 1,000 ML 100 ML IVCONT ×2 (08:53→18:50)
[2021-11-08 08:55] LABS: Glucose, Whole Blood 126 mg/dL (60-115)
--- NOTE | 2021-11-08 09:09 | PHA.MEDREC ---
Pharmacy Consult ? Medication Reconciliation Pharmacy has completed the medication reconciliation. Spoke to pt's daughter Bethany ([phone]) who confirmed insulin dosing, no remarkable issues. Drea Eddy, PharmD
[2021-11-08 09:12] LABS: Erythrocyte Sedimentation Rate 83 MM/HR (0-15)
--- NOTE | 2021-11-08 09:59 | PHA.PROG ---
Admission Date/Time: November 08, 2021 08:30 Indication: Skin and soft tissue Weight in k.09 kg Adjusted body weight in K.256 kg Manlius body weight in Kg: Obesity Dosing Indication % IBW: Serum Creatinine - Last 168 Hours 11/07/21 20:03 Creatinine 1.19 Estimated CrCl and GFR - Last 168 Hours 11/07/21 20:03 Estim Creat Clear Calc 76.6 Estimated GFR > 60 Vancomycin Loading Dose: 1000mg Current Vancomycin Dosing Regimen: 1500mg Q24H Vancomycin Monitoring using AUC goal of 400 - 600 range with trough as surrogate marker: Date and Time for next Vancomycin Level to be drawn: Next trough to be drawn 11-09-21 @1400 Pharmacist Comments on Vancomycin Plan: Per physician note, baseline SCr is 0.7-0.8 and pt may be in JARRETT. Dosing will be 1500mg Q24H starting 11-08-21 @1600. Will continue to monitor. Vancomycin dosing will take advantage of [employer] as a clinical decision support tool that uses Bayesian modeling to calculate individual patient's pharmacokinetic parameters and forecast the patient's drug concentration time course with the target goal AUC 24 range of 400 - 600 mg/L/hr.
[2021-11-08] MEDS: Enoxaparin Sodium 40 MG/0.4 ML SYRINGE SUBCUT (10:37)
[2021-11-08 14:04] LABS: Glucose, Whole Blood 192 mg/dL (60-115)
[2021-11-08] MEDS: Insulin Lispro 100 UNIT/ML 3 ML VIAL SUBCUT ×2 (14:04→18:29)
[2021-11-08] MEDS: Aspirin 81 MG TAB.CHEW PO (16:19)
[2021-11-08] MEDS: Metoprolol Succinate ER 50 MG TAB.ER.24H PO (16:19)
[2021-11-08] MEDS: Clopidogrel Bisulfate 75 MG TABLET PO (16:27)
[2021-11-08] MEDS: vancomycin HCL 1,500 MG in 0.9 % Sodium Chloride 500 ML 333.33 MG IV (17:14)
[2021-11-08 18:21] LABS: Glucose, Whole Blood 190 mg/dL (60-115)
--- NOTE | 2021-11-08 18:59 | PC.NURSE ---
pts R BKA cleaned by this RN and dressing applied.
[2021-11-08 21:12] LABS: Glucose, Whole Blood 149 mg/dL (60-115)
[2021-11-08] MEDS: Gabapentin 600 MG TABLET PO (21:42)
[2021-11-08] MEDS: Insulin Glargine,Hum.rec.anlog 100 UNIT/ML 10 ML VIAL 22 UNIT SUBCUT (21:42)
[2021-11-08] MEDS: Atorvastatin Calcium 20 MG TABLET PO (21:42)
[2021-11-09] VITALS (7 sets, daily range): BP systolic 136–174; BP diastolic 65–81; PULSE 63–77; RESP 16–18; TEMP 36.7–37.2; O2SAT 95–99
[2021-11-09] MEDS: Morphine Sulfate 2 MG/ML CARTRIDGE IVPUSH ×6 (01:16→22:12)
[2021-11-09] MEDS: Piperacillin Sodium/Tazobactam 3.375 GM in 0.9 % Sodium Chloride 50 ML IV ×4 (03:52→22:12)
[2021-11-09 05:51] LABS: Hematocrit 35.8 % (42.0-52.0); Hemoglobin 11.1 g/dl (14.0-18.0); Mean Corpuscular Hemoglobin 25.2 pg (27.0-33.0); Mean Corpuscular Volume 81.4 fL (80.0-98.0); Mean Platelet Volume 10.8 fL (9.4-12.4); Platelet Count 291 X10*3/uL (160-400); Red Cell Distribution Width 15.4 % (11.0-16.0); White Blood Count 9.9 X10*3/uL (4.8-10.8)
[2021-11-09 06:07] LABS: Anion Gap 12 (12-20); Blood Urea Nitrogen 13 mg/dL (9-16); Calcium 8.9 mg/dL (8.4-10.2); Carbon Dioxide 25 mmol/L (22-29); Chloride 102 mmol/L (96-108); Estimated Glomerular Filt Rate > 60; Glucose Random 148 mg/dL (60-115); Potassium 4.2 mmol/L (3.3-5.1); Sodium 135 mmol/L (135-145)
[2021-11-09 07:24] LABS: Glucose, Whole Blood 130 mg/dL (60-115)
[2021-11-09] MEDS: 0.9 % Sodium Chloride Flush 3 ML SYRINGE IVFLUSH ×3 (07:57→22:13)
[2021-11-09] MEDS: Metoprolol Succinate ER 50 MG TAB.ER.24H PO (07:57)
[2021-11-09] MEDS: Clopidogrel Bisulfate 75 MG TABLET PO (07:57)
[2021-11-09] MEDS: Aspirin 81 MG TAB.CHEW PO (07:57)
[2021-11-09] MEDS: Sertraline HCL 50 MG TABLET PO (07:57)
[2021-11-09] MEDS: Gabapentin 600 MG TABLET PO ×3 (07:57→22:11)
--- NOTE | 2021-11-09 10:06 | PC.NURSE ---
Skin/wound assessment completed today. Patient has an infected right stump, cleanse with wound cleanser then silver alginate tuck into opening of incision with tail laying flat covered with gauze and roll gauze. Also has a stage 2 pressure ulcer on left heel, cleansed with wound cleanser then Woundres gel applied covered with gauze and roll gauze. No other skin issues noted at this time.
[2021-11-09] MEDS: Enoxaparin Sodium 40 MG/0.4 ML SYRINGE SUBCUT (10:21)
[2021-11-09 11:25] LABS: Glucose, Whole Blood 196 mg/dL (60-115)
[2021-11-09] MEDS: Insulin Lispro 100 UNIT/ML 3 ML VIAL SUBCUT ×3 (12:03→22:11)
--- NOTE | 2021-11-09 13:22 | P.CONGS_ITS ---
History of Present Illness Consult details Consult date: 11/09/21 Reason for consult: wound care Narrative: Very pleasant 56-year-old gentleman well known to me status post right BKA. He had been doing relatively well until most recent fall. He had fallen on the lateral aspect of that stump as he was getting into a shower. It has progressively gotten worse. He presented to the hospital for further evaluation. He now presents to us for vascular evaluation. Review of Systems Review of Systems: Yes all other systems are reviewed and are negative Constitutional: Constitutional: Reports no additional constitutional complain ts ENT: Reports Normal hearing present Cardiovascular: Cardiovascular: Denies chest pain, Denies chest pain at rest, Denies chest pain with activity and Denies pedal edema Respiratory: Respiratory: Denies cough Gastrointestinal: Gastrointestinal: Denies abdominal pain Musculoskeletal: Musculoskeletal: Denies abnormal gait, Denies muscle cramps and Denies radiating pain into limb Integumentary/Breasts: Skin/Breast: Denies skin ulcer and Denies wounds Neurologic: Reports Normal hearing present and Denies abnormal gait Psychiatric: Psychiatric: Reports no additional psychiatric complaints PMFSH Past Medical History Medical History Alcohol abuse Amputation stump complication Arthritis CAD (coronary artery disease) Chronic pancreatitis Chronic 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 Diabetes mellitus with hyperglycemia, with long-term current use of insulin Diabetes mellitus, with long-term current use of insulin Dyslipidemia Erectile dysfunction Essential hypertension Failure of outpatient treatment Hyperlipidemia Increased BMI Intractable left heel pain Kidney calculus Major depression, recurrent Neuropathy PAD (peripheral artery disease) Type 2 diabetes mellitus with diabetic polyneuropathy Type 2 diabetes mellitus with hyperglycemia Family History Family History Mother [place] (myocardial infarction), Onset Age: 64 Diabetes mellitus HTN (hypertension) Maternal Grandmother Diabetes mellitus Surgical History Surgical History History of right below knee amputation Hx of heart artery stent Hx of lithotripsy S/P debridement Status post laparoscopic cholecystectomy Social History Social History Household Members: Family Household Members Other:: and daughter Housing: House Do you presently have visiting nurse or other home services: Yes Alcohol intake: current Alcohol intake frequency: does not drink Patient Tobacco Use Status: Former Tobacco user Quit Date: 3 weeks ago Tobacco use type: Cigarette Cigarette Packs Per Day: 1 Cigarettes Per Day: 20.0 Years Smoked: 28 e-Cigarette/Vaping Use: Never Used Second Hand Smoke Exposure: Yes Substance Use Type: Marijuana Advance Directives Date on File: 04/17/21 service: No Current occupational status: unemployed Meds Allergies Allergy/AdvReac Type Severity Reaction Status Date / Time No Known Allergies Allergy Verified 10/28/21 09:30 [No Known Allergies*] Active Medications: Current Medications Acetaminophen (Acetaminophen 325 Mg Tablet) 650 mg PO Q6H PRN PRN Reason: Pain, Mild (Pain Scale 1-3) Aspirin (Aspirin 81 Mg Tab.Chew) 81 mg PO DAILY [facility] Last Admin: 11/09/21 07:57 Dose: 81 mg Documented by: Atorvastatin Calcium (Atorvastatin Calcium 20 Mg Tablet) 20 mg PO BEDTIME [facility] Last Admin: 11/08/21 21:42 Dose: 20 mg Documented by: Clopidogrel Bisulfate (Clopidogrel Bisulfate 75 Mg Tablet) 75 mg PO DAILY [facility] Last Admin: 11/09/21 07:57 Dose: 75 mg Documented by: Enoxaparin Sodium (Enoxaparin Sodium 40 Mg/0.4 Ml Syringe) 40 mg SUBCUT Q24H [facility] Last Admin: 11/09/21 10:21 Dose: 40 mg Documented by: Gabapentin (Gabapentin 600 Mg Tablet) 600 mg PO TID [facility] Last Admin: 11/09/21 07:57 Dose: 600 mg Documented by: Piperacillin Sod/Tazobactam (Sod 3.375 gm/ Sodium Chloride) 50 mls @ 100 mls/hr IV Q6H [facility] Last Infusion: 11/09/21 11:01 Dose: Infused Documented by: Vancomycin HCl 1,500 mg/ (Sodium Chloride) 500 mls @ 333.333 mls/hr IV Q24H [facility] Last Infusion: 11/08/21 23:35 Dose: Infused Documented by: Insulin Glargine (Insulin Glargine,Hum.Rec.Anlog 100 Unit/Ml 10 Ml Vial) 22 unit SUBCUT BEDTIME [facility] Last Admin: 11/08/21 21:42 Dose: 22 unit Documented by: Insulin Human Lispro (Insulin Lispro 100 Unit/Ml 3 Ml Vial) 0 unit SUBCUT QIDACHS [facility]; Protocol Last Admin: 11/09/21 12:03 Dose: 2 unit Documented by: Metoprolol Succinate (Metoprolol Succinate Er 50 Mg Tab.Er.24h) 50 mg PO DAILY [facility]; Protocol Last Admin: 11/09/21 07:57 Dose: 50 mg Documented by: Morphine Sulfate (Morphine Sulfate 2 Mg/Ml Cartridge) 2 mg IVPUSH Q3H PRN; Protocol PRN Reason: Pain, Severe (Pain Scale 7-10) Last Admin: 11/09/21 10:26 Dose: 2 mg Documented by: Pharmacy Consult (Consult Rx Vancomycin Dosing) 1 each MISCELLANE DAILY PRN PRN Reason: Consult order Pharmacy Consult (Consult Rx Perform Med Rec) 1 each MISCELLANE ONCE PRN PRN Reason: Consult order Sertraline HCl (Sertraline Hcl 50 Mg Tablet) 50 mg PO DAILY [facility] Last Admin: 11/09/21 07:57 Dose: 50 mg Documented by: Sodium Chloride (0.9 % Sodium Chloride Flush 3 Ml Syringe) 3 ml IVFLUSH QSHIFT [facility] Last Admin: 11/09/21 07:57 Dose: 3 ml Documented by: Home Medications Medication Instructions Recorded Confirmed Last Taken Type insulin glargine 100 unit/mL (3 22 unit SUBCUT BEDTIME ml 05/06/21 11/08/21 11/07/21 History mL) subcutaneous pen (Lantus Solostar U-100 Insulin) empagliflozin 25 mg tablet 1 tab PO DAILY 08/14/21 11/08/21 11/07/21 History (Jardiance) atorvastatin 20 mg tablet 1 tab PO BEDTIME 11/08/21 11/08/21 11/07/21 History gabapentin 600 mg tablet 1 tab PO TID 11/08/21 11/08/21 11/07/21 History ibuprofen 800 mg tablet 800 mg PO TID PRN 11/08/21 11/08/21 Unknown History Physical Exam Vital Signs: Vital Signs: Last Vital Signs Temp 99.0 F 11/09/21 11:39 Pulse 69 11/09/21 11:39 Resp 17 11/09/21 11:39 BP 136/65 11/09/21 11:39 Pulse Ox 96 11/09/21 11:39 BMI result Body Mass Index 28.3 Const: General: cooperative, healthy appearing and comfortable Orientation/consciousness: oriented to person, oriented to place and oriented to time HENMT: Head: Yes normal to inspection Neck: Neck: Yes normal visual inspection Carotids: no bruits Chest: Chest palpation & inspection: normal inspection of the chest Resp: Effort & Inspection: normal respiratory effort and able to speak in complete sentences Auscultation: clear to auscultation bilaterally, no crackles, no rales, no rhonchi and no wheezes Cardio: Rate: regular rate Rhythm: regular rhythm Heart sounds: S1 normal heart sound present and S2 normal heart sound present Bruits: no carotid bruits Peripheral pulses: Peripheral pulses 2+ throughout GI: Inspection: Yes normal to inspection Skin: Wounds: amputation site (Lateral aspect right BKA dry eschar with central opening) Hair: normal Neuro: General: oriented to person, oriented to place and oriented to time Cranial nerves: Yes CN's II-XII intact bilaterally and Yes Normal hearing present Cognition (Neuro): normal cognition Motor exam (neuro): 5/5 motor strength present throughout Extrem: Other: venous exam: No significant superficial varicosities or spider telangiectasias, minimal edema General: No clubbing, No cyanosis and No edema Psych: Appearance: grossly normal Mental Status: mental status grossly normal Speech and movement: Normal speech and movement present Results Labs Result diagrams: 11/09/21 05:37 11/09/21 05:37 Labs: Abnormal lab results 11/08/21 11/08/21 11/08/21 Range/Units 13:59 18:13 21:08 RBC (4.60-5.80) X10*6/uL Hgb (14.0-18.0) g/dl Hct (42.0-52.0) % MCH (27.0-33.0) pg POC Glucose 192 H 190 H 149 H (60-115) mg/dL Random Glucose (60-115) mg/dL 11/09/21 11/09/21 11/09/21 Range/Units 05:37 05:37 07:20 RBC 4.40 L (4.60-5.80) X10*6/uL Hgb 11.1 L (14.0-18.0) g/dl Hct 35.8 L (42.0-52.0) % MCH 25.2 L (27.0-33.0) pg POC Glucose 130 H (60-115) mg/dL Random Glucose 148 H (60-115) mg/dL 11/09/21 Range/Units 11:19 RBC (4.60-5.80) X10*6/uL Hgb (14.0-18.0) g/dl Hct (42.0-52.0) % MCH (27.0-33.0) pg POC Glucose 196 H (60-115) mg/dL Random Glucose (60-115) mg/dL Short CBC 11/09/21 Range/Units 05:37 WBC 9.9 (4.8-10.8) X10*3/uL Hgb 11.1 L (14.0-18.0) g/dl Hct 35.8 L (42.0-52.0) % Plt Count 291 (160-400) X10*3/uL BMP 11/09/21 05:37 Sodium 135 Potassium 4.2 Chloride 102 Carbon Dioxide 25 BUN 13 Creatinine 0.80 Calcium 8.9 All other labs normal. Assessment and Plan (1) Amputation stump infection: Status: Acute Plan In short patient has nonhealing stump. At the current time would pack and continue with local wound care along with antibiotics. I would like the infection to clear. He is stable from my perspective for discharge once he is stable from an infectious disease standpoint. I did relate to the patient that at some point he may require re-resection if it continues to remain nonhealing. Thank you for allowing us to participate in his care. If there are any questions or concerns please do not hesitate to contact us. Procedures Date of Service Date of Service: 11/09/21
--- NOTE | 2021-11-09 13:39 | HO.PM.IMPN ---
Subjective Subjective Date of Service: 11/09/21 Review of Systems Follow up cellulitis right stump no pain laying in bed Physical Exam Vital Signs: Vital Signs: Last Vital Signs Temp 99.0 F 11/09/21 11:39 Pulse 69 11/09/21 11:39 Resp 17 11/09/21 11:39 BP 136/65 11/09/21 11:39 Pulse Ox 96 11/09/21 11:39 BMI result Body Mass Index 28.3 Appearing in no acute distress lung sounds are clear to auscultation heart regular rate rhythm, clear S1, S2 positive bowel sounds, abdomen is soft, nontender neuro patient is alert x3, no focal deficits necrosis and erythema to right stump Objective Data Active Medications Acetaminophen (Acetaminophen 325 Mg Tablet) 650 mg PO Q6H PRN PRN Reason: Pain, Mild (Pain Scale 1-3) Aspirin (Aspirin 81 Mg Tab.Chew) 81 mg PO DAILY [facility] Last Admin: 11/09/21 07:57 Dose: 81 mg Documented by: HAYDEE Atorvastatin Calcium (Atorvastatin Calcium 20 Mg Tablet) 20 mg PO BEDTIME [facility] Last Admin: 11/08/21 21:42 Dose: 20 mg Documented by: YAAZ-PARBEN Clopidogrel Bisulfate (Clopidogrel Bisulfate 75 Mg Tablet) 75 mg PO DAILY [facility] Last Admin: 11/09/21 07:57 Dose: 75 mg Documented by: HAYDEE Enoxaparin Sodium (Enoxaparin Sodium 40 Mg/0.4 Ml Syringe) 40 mg SUBCUT Q24H [facility] Last Admin: 11/09/21 10:21 Dose: 40 mg Documented by: HAYDEE Gabapentin (Gabapentin 600 Mg Tablet) 600 mg PO TID [facility] Last Admin: 11/09/21 07:57 Dose: 600 mg Documented by: HAYDEE Piperacillin Sod/Tazobactam (Sod 3.375 gm/ Sodium Chloride) 50 mls @ 100 mls/hr IV Q6H [facility] Last Infusion: 11/09/21 11:01 Dose: 0 mls/hr Documented by: HAYDEE Vancomycin HCl 1,500 mg/ (Sodium Chloride) 500 mls @ 333.333 mls/hr IV Q24H [facility] Last Infusion: 11/08/21 23:35 Dose: 0 mls/hr Documented by: ODRISM Insulin Glargine (Insulin Glargine,Hum.Rec.Anlog 100 Unit/Ml 10 Ml Vial) 22 unit SUBCUT BEDTIME [facility] Last Admin: 11/08/21 21:42 Dose: 22 unit Documented by: AYAZ-BELLA Insulin Human Lispro (Insulin Lispro 100 Unit/Ml 3 Ml Vial) 0 unit SUBCUT QIDACHS [facility]; Protocol Last Admin: 11/09/21 12:03 Dose: 2 unit Documented by: HAYDEE Metoprolol Succinate (Metoprolol Succinate Er 50 Mg Tab.Er.24h) 50 mg PO DAILY [facility]; Protocol Last Admin: 11/09/21 07:57 Dose: 50 mg Documented by: HAYDEE Morphine Sulfate (Morphine Sulfate 2 Mg/Ml Cartridge) 2 mg IVPUSH Q3H PRN; Protocol PRN Reason: Pain, Severe (Pain Scale 7-10) Last Admin: 11/09/21 10:26 Dose: 2 mg Documented by: HAYDEE Pharmacy Consult (Consult Rx Vancomycin Dosing) 1 each MISCELLANE DAILY PRN PRN Reason: Consult order Pharmacy Consult (Consult Rx Perform Med Rec) 1 each MISCELLANE ONCE PRN PRN Reason: Consult order Sertraline HCl (Sertraline Hcl 50 Mg Tablet) 50 mg PO DAILY [facility] Last Admin: 11/09/21 07:57 Dose: 50 mg Documented by: HAYDEE Sodium Chloride (0.9 % Sodium Chloride Flush 3 Ml Syringe) 3 ml IVFLUSH QSHIFT [facility] Last Admin: 11/09/21 07:57 Dose: 3 ml Documented by: HAYDEE Labs CBC & Chem 7: 11/09/21 05:37 11/09/21 05:37 Labs: Laboratory Results - last 24 hr 11/08/21 11/08/21 11/08/21 13:59 18:13 21:08 MCV MCH MCHC RDW Plt Count MPV Absolute Nucleated RBC Nucleated RBC % (auto) Anion Gap Estim Creat Clear Calc Estimated GFR POC Glucose 192 H 190 H 149 H Random Glucose Calcium 11/09/21 11/09/21 11/09/21 05:37 05:37 07:20 MCV 81.4 MCH 25.2 L MCHC 31.0 RDW 15.4 Plt Count 291 MPV 10.8 Absolute Nucleated RBC 0.000 Nucleated RBC % (auto) 0.0 Anion Gap 12 Estim Creat Clear Calc 114.0 Estimated GFR > 60 POC Glucose 130 H Random Glucose 148 H Calcium 8.9 11/09/21 11:19 MCV MCH MCHC RDW Plt Count MPV Absolute Nucleated RBC Nucleated RBC % (auto) Anion Gap Estim Creat Clear Calc Estimated GFR POC Glucose 196 H Random Glucose Calcium Microbiology Microbiology Results: Microbiology 11/08/21 02:41 Blood Culture - Preliminary Blood - Venous No growth after 24 hours. 11/08/21 02:41 Blood Culture - Preliminary Blood - Venous No growth after 24 hours. Assessment and Plan (1) Status post below-knee amputation: Status: Acute (2) Diabetes mellitus with hyperglycemia, with long-term current use of insulin: Status: Resolved Plan This is a 56 year old male with diabetes status post right BKA secondary to persistent cellulitis/osteomyelitis Cellulitis right stump necrotic tissue and erythema continue vanco and zosyn Vascular following, may require resection at some point if wound continues to not heal pain management HTN Acceptable control. Metoprolol, norvasc, lisinopril CAD Continue antiplatelets , metoprolol,and atorvastatin DMII Continue Lantus and SSI DVT prophylaxis with Lovenox Attending Dr. Baig Full code Quality Stroke Does the patient have a stroke diagnosis?: No VTE Prior VTE?: No VTE Risk Level:: Medical - moderate - high VTE Device Contraindication: Treatment Not Indicated VTE Drug Contraindication: N/A - Med Ordered
[2021-11-09 16:07] LABS: Glucose, Whole Blood 219 mg/dL (60-115)
[2021-11-09] MEDS: vancomycin HCL 1,250 MG in 0.9 % Sodium Chloride 250 ML 166.67 MG IV (17:54)
[2021-11-09 20:08] LABS: Glucose, Whole Blood 221 mg/dL (60-115)
[2021-11-09] MEDS: Atorvastatin Calcium 20 MG TABLET PO (22:11)
[2021-11-09] MEDS: Insulin Glargine,Hum.rec.anlog 100 UNIT/ML 10 ML VIAL 22 UNIT SUBCUT (22:12)
[2021-11-10 03:32] VITALS: BP 169/81; PULSE 66; RESP 18; TEMP 36.7; O2SAT 98
[2021-11-10] MEDS: Morphine Sulfate 2 MG/ML CARTRIDGE IVPUSH ×3 (03:40→11:44)
[2021-11-10] MEDS: Piperacillin Sodium/Tazobactam 3.375 GM in 0.9 % Sodium Chloride 50 ML IV ×2 (03:41→10:21)
[2021-11-10] MEDS: vancomycin HCL 1,250 MG in 0.9 % Sodium Chloride 250 ML 166.67 MG IV (04:14)
[2021-11-10 06:42] LABS: Anion Gap 10 (12-20); Blood Urea Nitrogen 13 mg/dL (9-16); Carbon Dioxide 27 mmol/L (22-29); Chloride 103 mmol/L (96-108); Creatinine Clr Calc Pharmacy 116.9; Estimated Glomerular Filt Rate > 60; Glucose Random 179 mg/dL (60-115); Potassium 4.4 mmol/L (3.3-5.1); Sodium 136 mmol/L (135-145)
[2021-11-10 07:31] VITALS: BP 174/83; PULSE 72; RESP 17; TEMP 36.8; O2SAT 97
[2021-11-10 07:48] LABS: Glucose, Whole Blood 172 mg/dL (60-115)
--- NOTE | 2021-11-10 07:59 | HE.PHANOTE ---
RE VANCO SCR is 0.78. cONTINUE 1250MG Q12H, NEXT TROUGH 11/10@1500
[2021-11-10] MEDS: Insulin Lispro 100 UNIT/ML 3 ML VIAL SUBCUT ×2 (08:08→11:44)
[2021-11-10] MEDS: 0.9 % Sodium Chloride Flush 3 ML SYRINGE IVFLUSH (08:08)
[2021-11-10] MEDS: Metoprolol Succinate ER 50 MG TAB.ER.24H PO (08:08)
[2021-11-10] MEDS: Clopidogrel Bisulfate 75 MG TABLET PO (08:09)
[2021-11-10] MEDS: Aspirin 81 MG TAB.CHEW PO (08:09)
[2021-11-10] MEDS: Gabapentin 600 MG TABLET PO ×2 (08:09→14:47)
[2021-11-10] MEDS: Sertraline HCL 50 MG TABLET PO (08:09)
[2021-11-10] MEDS: lisinopriL 5 MG TABLET PO (08:27)
[2021-11-10] MEDS: Enoxaparin Sodium 40 MG/0.4 ML SYRINGE SUBCUT (10:21)
--- NOTE | 2021-11-10 10:28 | HO.VASCPN ---
Subjective Subjective Date of Service: 11/10/21 Patient reports: no new complaints and feels better Interval history: Patient seen and examined. No significant events overnight. Reports that the stump does feel better. No overall complaints. Physical Exam Vital Signs: Vital Signs: Last Vital Signs Temp 98.2 F 11/10/21 07:31 Pulse 72 11/10/21 07:31 Resp 17 11/10/21 07:31 BP 174/83 H 11/10/21 07:31 Pulse Ox 97 11/10/21 07:31 BMI result Body Mass Index 28.3 Const: General: cooperative, healthy appearing and no acute distress Orientation/consciousness: oriented to person, oriented to place and oriented to time HENMT: Head: Yes normal to inspection Neck: Carotids: no bruits Chest: Chest palpation & inspection: normal inspection of the chest Resp: Effort & Inspection: normal respiratory effort and able to speak in complete sentences Auscultation: clear to auscultation bilaterally Cardio: Rate: regular rate Heart sounds: S1 normal heart sound present and S2 normal heart sound present GI: Inspection: Yes normal to inspection Skin: Other: Lateral aspect of BKA stump with a dry eschar. There is tunneling and undermining. Some mild erythema which does appear reduced since admission. General skin exam: no rashes or lesions noted Wounds: no wounds Neuro: General: oriented to person, oriented to place, oriented to time and CN's II-XI intact bilaterally Extrem: General: Yes normal to inspection, Yes full ROM and Yes no clubbing, cyanosis or edema Psych: Appearance: grossly normal and well kempt Speech and movement: Normal speech and movement present Affect: normal affect Progress Note: A&P Assessment and plan (1) Amputation stump infection: Status: Acute Assessment and Plan: In short stump appears to be stable. I would like to treated conservatively with antibiotics for now. Should it remain nonhealing may require revision as an outpatient. He will follow up with me once discharged. Please note I will be out starting [facility] and Dr. Calvo will be my coverage for the next week. Thank you for allowing us to assist in his care. Fall Risk Details Current Medications: Current Medications Acetaminophen (Acetaminophen 325 Mg Tablet) 650 mg PO Q6H PRN PRN Reason: Pain, Mild (Pain Scale 1-3) Aspirin (Aspirin 81 Mg Tab.Chew) 81 mg PO DAILY [facility] Last Admin: 11/10/21 08:09 Dose: 81 mg Documented by: Atorvastatin Calcium (Atorvastatin Calcium 20 Mg Tablet) 20 mg PO BEDTIME [facility] Last Admin: 11/09/21 22:11 Dose: 20 mg Documented by: Clopidogrel Bisulfate (Clopidogrel Bisulfate 75 Mg Tablet) 75 mg PO DAILY [facility] Last Admin: 11/10/21 08:09 Dose: 75 mg Documented by: Enoxaparin Sodium (Enoxaparin Sodium 40 Mg/0.4 Ml Syringe) 40 mg SUBCUT Q24H [facility] Last Admin: 11/10/21 10:21 Dose: 40 mg Documented by: Gabapentin (Gabapentin 600 Mg Tablet) 600 mg PO TID [facility] Last Admin: 11/10/21 08:09 Dose: 600 mg Documented by: Piperacillin Sod/Tazobactam (Sod 3.375 gm/ Sodium Chloride) 50 mls @ 100 mls/hr IV Q6H [facility] Last Admin: 11/10/21 10:21 Dose: 100 mls/hr Documented by: Vancomycin HCl 1,250 mg/ (Sodium Chloride) 250 mls @ 166.667 mls/hr IV Q12H [facility] Last Infusion: 11/10/21 05:54 Dose: Infused Documented by: Insulin Glargine (Insulin Glargine,Hum.Rec.Anlog 100 Unit/Ml 10 Ml Vial) 22 unit SUBCUT BEDTIME [facility] Last Admin: 11/09/21 22:12 Dose: 22 unit Documented by: Insulin Human Lispro (Insulin Lispro 100 Unit/Ml 3 Ml Vial) 0 unit SUBCUT QIDACHS [facility]; Protocol Last Admin: 11/10/21 08:08 Dose: 2 unit Documented by: Lisinopril (Lisinopril 5 Mg Tablet) 5 mg PO DAILY [facility]; Protocol Last Admin: 11/10/21 08:27 Dose: 5 mg Documented by: Metoprolol Succinate (Metoprolol Succinate Er 50 Mg Tab.Er.24h) 50 mg PO DAILY [facility]; Protocol Last Admin: 11/10/21 08:08 Dose: 50 mg Documented by: Morphine Sulfate (Morphine Sulfate 2 Mg/Ml Cartridge) 2 mg IVPUSH Q3H PRN; Protocol PRN Reason: Pain, Severe (Pain Scale 7-10) Last Admin: 11/10/21 08:26 Dose: 2 mg Documented by: Pharmacy Consult (Consult Rx Vancomycin Dosing) 1 each MISCELLANE DAILY PRN PRN Reason: Consult order Pharmacy Consult (Consult Rx Perform Med Rec) 1 each MISCELLANE ONCE PRN PRN Reason: Consult order Sertraline HCl (Sertraline Hcl 50 Mg Tablet) 50 mg PO DAILY [facility] Last Admin: 11/10/21 08:09 Dose: 50 mg Documented by: Sodium Chloride (0.9 % Sodium Chloride Flush 3 Ml Syringe) 3 ml IVFLUSH QSHIFT [facility] Last Admin: 11/10/21 08:08 Dose: 3 ml Documented by: Time Spent With Patient Time: Total time spent is greater than 50% in coordination of care (as documented) at patient's floor/unit and/or counseling patient: Time with patient: 15 - 24 minutes Procedures Date of Service Date of Service: 11/10/21 Quality Stroke Does the patient have a stroke diagnosis?: No VTE Prior VTE?: No VTE Risk Level:: Medical - moderate - high VTE Device Contraindication: Treatment Not Indicated VTE Drug Contraindication: N/A - Med Ordered
[2021-11-10 11:25] LABS: Glucose, Whole Blood 179 mg/dL (60-115)
[2021-11-10 11:49] VITALS: BP 164/79; PULSE 71; RESP 18; TEMP 36.6; O2SAT 98
--- NOTE | 2021-11-10 13:48 | P.DS_ITS ---
DS: Providers Provider Date of Service: 11/10/21 Date of admission: 11/08/21 08:30 Primary care physician: Shanta Haney MD Consults: 11/08/21 08:32 Consult to Vascular Surgery Routine Consulting Provider: Berto Sheppard Reason for consultation: R BKA stump wound 11/09/21 15:35 Consult to Infectious Diseases Routine Consulting Provider: Fannie Stoner Reason for consultation: cellulitis Has provider been notified: No Attending physician on discharge: Thong Baig Discharging clinician: Stacy Dukes DS: Diagnosis Discharge Diagnosis (1) Amputation stump infection: Status: Acute DS: Summary Hospital Course Hospital Course: HP as per admitting provider This is a 56 yo F with a PMH of DM, PAD, multiple prior amputations, HTN who is s/p R BKA in August 2021. Patient was discharged from [facility] on 09/01/21 and was doing fairly well. He had spent a short stay at a rehab facility and now has been home for a few weeks. He reports that he has a VNA coming in daily for his L heel ucleration and BKA site. He reports in the last 1-2 weeks he has had several falls and had another one several days ago. He fell on the stump site and since then he has had increased swelling, warmth and pain. He reports that he started having thin bloody discharge and became worried so he presented to the ED. He does endorse feeling feverish on the day prior to admission. In the ED, his work up revealed an XR which showed soft tissue swelling at the stump. There was a noted eschar and some serosanginous drainage. In light of his history of prior BKA/infections/DM/PAD -- concern over cellulitis was raised and he will be now be admitted for further work up and treatment . Cellulitis right stump, necrotic tissue and erythema noted. Treated with vancomycin and Zosyn. Seen by vascular surgeon, Dr. Sheppard he will follow-up with him in the office and may need revision some point. Continue Augmentin for 10 days. HTN. Acceptable control. Continue Metoprolol, norvasc, lisinopril CAD. Continue antiplatelets, metoprolol and atorvastatin DMII. Continue Lantus and SSI Time Spent with Patient Time attestation: Total time spent providing and/or coordinating discharge services: Discharge coordination time: Greater than 30 minutes Quality: Stroke Does the patient have a stroke diagnosis?: No Physical Exam Vital Signs: Vital Signs: Last Vital Signs Temp 98 F 11/10/21 11:49 Pulse 71 11/10/21 11:49 Resp 18 11/10/21 11:49 BP 164/79 H 11/10/21 11:49 Pulse Ox 98 11/10/21 11:49 BMI result Body Mass Index 28.3 Appearing in no acute distress head is normocephalic atraumatic eyes pupils are PERRLA sclera is anicteric mouth throat mucous membranes are intact and moist neck is supple no lymphadenopathy, no JVD noted lung sounds are clear to auscultation heart regular rate rhythm, clear S1, S2 positive bowel sounds, abdomen is soft, nontender neuro patient is alert x3, no focal deficits Right stump with dry skin and small area of eschar DS: Data Data Completed and Pending Completed studies during hospitalization [Text1]: Procedures Detachment at Right 1st Toe, Complete, Open Approach (08/18/21) Detachment at Right Lower Leg, High, Open Approach (08/18/21) Dilation of Right Ureter with Intraluminal Device, Via Natural or Artificial Opening Endoscopic (06/21/20) Excision of Right Tarsal, Open Approach (08/18/21) Extirpation of Matter from Right Ureter, Via Natural or Artificial Opening Endoscopic (06/21/20) Fluoroscopy of Right Kidney, Ureter and Bladder (06/21/20) Insertion of Infusion Device into Superior Vena Cava, Percutaneous Approach (08/18/21) Labs on day of discharge: Laboratory Results - last 24 hr 11/09/21 11/09/21 11/09/21 14:26 15:48 19:39 Sodium Potassium Chloride Carbon Dioxide Anion Gap BUN Creatinine Estim Creat Clear Calc Estimated GFR POC Glucose 219 H 221 H Random Glucose Calcium Random Vancomycin 5.0 L 11/10/21 11/10/21 11/10/21 05:49 07:29 11:17 Sodium 136 Potassium 4.4 Chloride 103 Carbon Dioxide 27 Anion Gap 10 L BUN 13 Creatinine 0.78 Estim Creat Clear Calc 116.9 Estimated GFR > 60 POC Glucose 172 H 179 H Random Glucose 179 H Calcium 9.0 Random Vancomycin Preliminary micro results at discharge 11/08/21 02:41 Blood Culture - Preliminary Blood - Venous No growth after 48 hours. 11/08/21 02:41 Blood Culture - Preliminary Blood - Venous No growth after 48 hours. Discharge Plan Discharge Anticipated Discharge Date/Time: 11/10/21 12:50 Patient Disposition: Home, Self-Care Discharge Diagnosis: Cellulitis Referrals: Shanta Haney MD [Primary Care Provider] - 1 Week Berto Sheppard MD [Physician] - 2 Weeks Discharge Medications: New amoxicillin-pot clavulanate 875-125 mg tablet 1 tab PO BID Qty: 20 0RF Continued clopidogrel [Plavix] 75 mg tablet 75 mg PO DAILY Qty: 30 5RF Jardiance 25 mg tablet 1 tab PO DAILY 0RF gabapentin 600 mg tablet 1 tab PO TID 0RF atorvastatin 20 mg tablet 1 tab PO BEDTIME 0RF ibuprofen 800 mg Tablet 800 mg PO TID PRN (Reason: Pain) 0RF insulin lispro [Humalog KwikPen Insulin] 100 unit/mL insulin pen 17 unit SUBCUT BIDAC Qty: 15 5RF Rx Instructions: BEFORE BREAKFAST AND DINNER Lantus Solostar U-100 Insulin 100 unit/mL (3 mL) insulin pen 22 unit subcut BEDTIME 0RF aspirin 81 mg tablet,chewable 81 mg PO DAILY Qty: 30 5RF acetaminophen [Tylenol 8 Hour] 650 mg tablet extended release 650 mg PO Q12H PRN (Reason: pain) Qty: 60 0RF metoprolol succinate 50 mg tablet extended release 24 hr 50 mg PO DAILY Qty: 30 2RF sertraline 50 mg tablet 50 mg PO DAILY Qty: 30 1RF nabumetone 500 mg tablet 500 mg PO DAILY PRN (Reason: severe joint pain only ) Qty: 20 0RF (DME) pen needle, diabetic [BD Ultra-Fine Short Pen Needle] 31 gauge x 5/16 needle See Rx Instructions .Route Qty: 100 5RF Rx Instructions: As directed TID AC Discharge Orders: Discharge Order (Routine); Ordered 11/10/21 Ordered By: Stacy Dukes Diet: advance to usual diet Activity on Discharge: As tolerated Stand Alone Forms: Patient Portal Discharge page Care Plan Goals: resolution of symptoms Health Concerns: cellulitis Plan of Treatment: Follow-up with Dr. Sheppard in 2 weeks Taking medications as prescribed Assessment: see discharge summary
--- NOTE | 2021-11-10 15:14 | MHC.CM.PN ---
PT MEDICALLY CLEARED FOR D/C HOME W/RESUMP OF [facility] FOR SN/OT/PT AND PLAN TO START MENTAL HEALTH COUNSELING (PCP CURRENTLY PRESCRIBES FOR PT) W/PT'S FOR TRANSPORT.
--- NOTE | 2021-11-11 08:37 | MHC.CM.PN ---
NURSE MANAGER SHELL NOTE LATE ENTRY FROM 11/09/21 MET WITH PATIENT WITH [facility] PATIENT SPEAKS [employer] [place] , LIVES WITH HIS , S/P AMPUTATION IN AUGUST 2021 AND WHEN DISCHARGED HE WENT TO [facility] HE HAS BEEN ACTIVE WITH VNA BUT DOES NOT REMBER THE NAME OF THE VNA , (ITREIED REACHOING HIS BUT WAS UNABLE TO ) SEVERAL AGENCIES TO SEE WHICH ONE HE WAS ACTIVE WITH , HE WAS SUPPOSE TO HAVE A PROSTHEIC APPOINTMENT TODAY BUT WAS HOSPITALISED ENCOURAGED HIM TO CALL AN LET THEM NOW HE WAS HOSPITALISED. HE REPORTED THAT HE IS INDEPENDENT IN [facility] PERSONAL ADL AND AMBULATES WITH WALKER AND WHEN OUTSIDE USES A WHEELCHAIR , HE HAS NEW APPOINTMENT TO SEE A MENTAL HEALTH COUNSELOR , CURRENTLY HIS PCP PRESCRIBES HIS MEDS. HE ALSO IS FOLLOWED [facility]Y [facility] PLAN HOME WITH AND RESUMTPION OF HIS VNA SERVICES OBSERVATIN PAPERWORK COMPLETED
== END 2021-11-10 16:51 | disposition home or self-care (01) ==
LOC: HO.ED 11-08 05:16 → HO.EDOVER 11-08 08:37 → HO.S3 11-08 23:05
PROVIDERS: Admitting Provider Family Medicine; Emergency Provider Emergency Medicine; PCP Internal Medicine; Visit Provider Nurse Practitioner Acute Care
DX: T87.43 Infection of amputation stump, right lower extremity (principal); T87.53 Necrosis of amputation stump, right lower extremity; W18.2XXA Fall in (into) shower or empty bathtub, initial encounter; Y93.E1 Activity, personal bathing and showering; Y92.9 Unspecified place or not applicable; Y99.8 Other external cause status; E23.2 Diabetes insipidus; E08.65 Diabetes mellitus due to underlying condition with hyperglycemia; E08.42 Diabetes mellitus due to underlying condition with diabetic polyneuropathy; N17.9 Acute kidney failure, unspecified; L97.429 Non-pressure chronic ulcer of left heel and midfoot with unspecified severity; I25.10 Atherosclerotic heart disease of native coronary artery without angina pectoris; I10 Essential (primary) hypertension; E78.5 Hyperlipidemia, unspecified; I73.9 Peripheral vascular disease, unspecified; K86.1 Other chronic pancreatitis; I25.2 Old myocardial infarction; F17.210 Nicotine dependence, cigarettes, uncomplicated; Z20.822 Contact with and (suspected) exposure to COVID-19; Z98.61 Coronary angioplasty status; Z89.511 Acquired absence of right leg below knee; Z90.49 Acquired absence of other specified parts of digestive tract; Z79.4 Long term (current) use of insulin; Z79.02 Long term (current) use of antithrombotics/antiplatelets; Z79.899 Other long term (current) drug therapy
CPT/HCPCS: 36415; 73590; 80048; 80202; 82947; 83605; 85025; 85027; 85652; 86140; 87040; 87635; 96361; 96365; 96366; 96367; 96372; 96375; 96376; 99218; 99285; J1650; J2270; J2543; J3370

== ENCOUNTER → 2021-11-25 11:00 | Outpatient (BNVA) | payer OTHER, SELFPAY | PROVIDERS: PCP Internal Medicine; Visit Provider Surgery Vascular Surgery | DX: I73.9 Peripheral vascular disease, unspecified (principal) | CPT/HCPCS: 99212 ==

== ENCOUNTER 2021-11-29 06:00 | Day surgery (SDC) | payer OTHER, SELFPAY ==
--- NOTE | 2021-11-26 12:06 | HO.ANESPROP2 ---
Documented by User: Miracle Li NP 11/26/21 12:13 HPI - Anesthesia Eval Consult details Narrative: 56yo M for Right BKA Amputation Revision s/p Right BKA 08/31/21 with GA-LMA 5 PMFSH Active Problems Active Problems: All Active Problems (Updated 11/25/21 @ 11:38 by Berto Sheppard MD) PAD (peripheral artery disease) (Acute) Major depression, recurrent (Acute) Erectile dysfunction (Acute) Dyslipidemia (Acute) Essential hypertension (Acute) Diabetes mellitus, with long-term current use of insulin (Acute) Ulcer of left heel (Acute) Intractable heel pain (Acute) Diabetic foot ulcer (Acute) Intractable left heel pain (Acute) Hx of heart artery stent (Acute) Arthritis (Acute) Past Medical History Medical History (Updated 11/25/21 @ 11:38 by Berto Sheppard MD) Alcohol abuse Amputation stump complication Amputation stump infection Arthritis CAD (coronary artery disease) Chronic pancreatitis Chronic 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 Diabetes mellitus with hyperglycemia, with long-term current use of insulin Diabetes mellitus, with long-term current use of insulin Dyslipidemia Erectile dysfunction Essential hypertension Failure of outpatient treatment Hyperlipidemia Increased BMI Intractable left heel pain Kidney calculus Major depression, recurrent Neuropathy PAD (peripheral artery disease) Type 2 diabetes mellitus with diabetic polyneuropathy Type 2 diabetes mellitus with hyperglycemia Family History Family History Mother [place] (myocardial infarction), Onset Age: 64 Diabetes mellitus HTN (hypertension) Maternal Grandmother Diabetes mellitus Family history of problems with anesthesia: No Surgical History Surgical History History of right below knee amputation Hx of heart artery stent Hx of lithotripsy S/P debridement Status post below-knee amputation Status post laparoscopic cholecystectomy History of Problems with Anesthesia: No Social History Social History Household Members: Family Household Members Other:: and daughter Housing: House Do you presently have visiting nurse or other home services: Yes Alcohol intake: current Alcohol intake frequency: does not drink Patient Tobacco Use Status: Former Tobacco user Quit Date: 3 weeks ago Tobacco use type: Cigarette Cigarette Packs Per Day: 1 Cigarettes Per Day: 20.0 Years Smoked: 28 Smoked in Last 30 Days: No e-Cigarette/Vaping Use: Never Used Second Hand Smoke Exposure: Yes Use of substances other than those prescribed or required for medical reasons: No Substance Use Type: Marijuana Are you DNR?: No Advance Directives: No Advance Directives Information Provided: Yes Advance Directives Date on File: 04/17/21 Recently lost weight without trying: No Nutrition Risks: No Nutritional Risk service: No Current occupational status: unemployed Meds Allergies Allergy/AdvReac Type Severity Reaction Status Date / Time No Known Allergies Allergy Verified 11/25/21 11:15 [No Known Allergies*] Home Medications Medication Instructions Recorded Confirmed Last Taken Type insulin glargine 100 unit/mL (3 22 unit SUBCUT BEDTIME ml 05/06/21 11/08/21 11/07/21 History mL) subcutaneous pen (Lantus Solostar U-100 Insulin) empagliflozin 25 mg tablet 1 tab PO DAILY 08/14/21 11/08/21 11/07/21 History (Jardiance) atorvastatin 20 mg tablet 1 tab PO BEDTIME 11/08/21 11/08/21 11/07/21 History gabapentin 600 mg tablet 1 tab PO TID 11/08/21 11/08/21 11/07/21 History ibuprofen 800 mg tablet 800 mg PO TID PRN 11/08/21 11/08/21 Unknown History Exam Exam Date and Time: November 26, 2021 1206 Pertinent Lab Results Pertinent Lab Results: Laboratory Tests 11/09/21 11/10/21 05:37 05:49 WBC 9.9 Hgb 11.1 L Hct 35.8 L Plt Count 291 Sodium 136 Potassium 4.4 Chloride 103 Carbon Dioxide 27 BUN 13 Creatinine 0.78 Narrative Narrative: EKG 12/2020 Sinus rhythm, right bundle-branch block left anterior fascicular block, QTC 447 milliseconds, LVH Assessment and Plan Assessment Anesthesia Assessment: Chart Reviewed Final Anesthetic Review Family History of Problems with Anesthesia: No History of Problems with Anesthesia: No Documented by User: Jayme Velasco MD 11/29/21 07:34 [facility] Past Medical History Medical History (Updated 11/25/21 @ 11:38 by Berto Sheppard MD) Alcohol abuse Amputation stump complication Amputation stump infection Arthritis CAD (coronary artery disease) Chronic pancreatitis Chronic 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 Diabetes mellitus with hyperglycemia, with long-term current use of insulin Diabetes mellitus, with long-term current use of insulin Dyslipidemia Erectile dysfunction Essential hypertension Failure of outpatient treatment Hyperlipidemia Increased BMI Intractable left heel pain Kidney calculus Major depression, recurrent Neuropathy PAD (peripheral artery disease) Type 2 diabetes mellitus with diabetic polyneuropathy Type 2 diabetes mellitus with hyperglycemia Family History Family History Mother [place] (myocardial infarction), Onset Age: 64 Diabetes mellitus HTN (hypertension) Maternal Grandmother Diabetes mellitus Surgical History Surgical History History of right below knee amputation Hx of heart artery stent Hx of lithotripsy S/P debridement Status post below-knee amputation Status post laparoscopic cholecystectomy Social History Social History Household Members: Family Household Members Other:: and daughter Housing: House Do you presently have visiting nurse or other home services: Yes Alcohol intake: current Alcohol intake frequency: does not drink Patient Tobacco Use Status: Former Tobacco user Quit Date: 3 weeks ago Tobacco use type: Cigarette Cigarette Packs Per Day: 1 Cigarettes Per Day: 20.0 Years Smoked: 28 Smoked in Last 30 Days: No e-Cigarette/Vaping Use: Never Used Second Hand Smoke Exposure: Yes Use of substances other than those prescribed or required for medical reasons: No Substance Use Type: Marijuana Are you DNR?: No Advance Directives: No Advance Directives Information Provided: Yes Advance Directives Date on File: 04/17/21 Recently lost weight without trying: No Nutrition Risks: No Nutritional Risk service: No Current occupational status: unemployed Meds Allergies Allergy/AdvReac Type Severity Reaction Status Date / Time No Known Allergies Allergy Verified 11/25/21 11:15 [No Known Allergies*] Home Medications Medication Instructions Recorded Confirmed Last Taken Type insulin glargine 100 unit/mL (3 22 unit SUBCUT BEDTIME ml 05/06/21 11/08/21 11/07/21 History mL) subcutaneous pen (Lantus Solostar U-100 Insulin) empagliflozin 25 mg tablet 1 tab PO DAILY 08/14/21 11/08/21 11/07/21 History (Jardiance) atorvastatin 20 mg tablet 1 tab PO BEDTIME 11/08/21 11/08/21 11/07/21 History gabapentin 600 mg tablet 1 tab PO TID 11/08/21 11/08/21 11/07/21 History ibuprofen 800 mg tablet 800 mg PO TID PRN 11/08/21 11/08/21 Unknown History Exam Airway Mallampati Class: II TM Dist: <=3cm Neck ROM: Full Denture: Upper and Lower Heart: reviewed Lungs: ok Assessment and Plan Assessment Anesthesia Assessment: Anesthesia Plan Discussed (Declined SAB) Final Anesthetic Review NPO: Yes ASA Class: IV Final Preanesthetic Review: No Changes in Pt Med Stat, Meds/Allgs Chart Reviewed, Consent Obtained/Reviewed and Anes Risks/Benef Reviewed Patient Risk: High Procedure Risk: Low Anesthetic Plan Anesthetic Plan: GA and Agree w/ Assess. and Plan Disposition: Standard PACU
[2021-11-29] VITALS (8 sets, daily range): BP systolic 127–162; BP diastolic 68–88; PULSE 68–76; RESP 16; TEMP 36.6–36.9; O2SAT 97–99; BMI 28.9
--- NOTE | 2021-11-29 | ECG_ITS ---
Test Reason : preop Blood Pressure : / mmHG Vent. Rate : 071 BPM Atrial Rate : 071 BPM P-R Int : 176 ms QRS Dur : 146 ms QT Int : 424 ms P-R-T Axes : 018 -52 019 degrees QTc Int : 460 ms Normal sinus rhythm Right bundle branch block Left anterior fascicular block Bifascicular block Minimal voltage criteria for LVH, may be normal variant ( R in aVL ) Abnormal ECG When compared to the previous EKG of No significant changes seen Referred By: Miracle Li Electronically Signed By:SAUL MARCH MD
[2021-11-29 06:42] LABS: Glucose, Whole Blood 131 mg/dL (60-115)
[2021-11-29 06:48] LABS: Hematocrit 41.8 % (42.0-52.0); Hemoglobin 12.6 g/dl (14.0-18.0); Mean Corpuscular HGB Conc 30.1 g/dl (31.0-36.0); Mean Corpuscular Hemoglobin 24.5 pg (27.0-33.0); Mean Corpuscular Volume 81.3 fL (80.0-98.0); Mean Platelet Volume 11.2 fL (9.4-12.4); Platelet Count 222 X10*3/uL (160-400); Red Blood Count 5.14 X10*6/uL (4.60-5.80); Red Cell Distribution Width 15.7 % (11.0-16.0)
[2021-11-29] MEDS: Lactated Ringers 1,000 ML 100 ML IVCONT (06:51)
[2021-11-29 07:01] LABS: Anion Gap 15 (12-20); Blood Urea Nitrogen 16 mg/dL (9-16); Calcium 9.5 mg/dL (8.4-10.2); Carbon Dioxide 23 mmol/L (22-29); Chloride 105 mmol/L (96-108); Creatinine Clr Calc Pharmacy 110.9; Estimated Glomerular Filt Rate > 60; Glucose Random 140 mg/dL (60-115); Sodium 139 mmol/L (135-145)
[2021-11-29] MEDS: oxyCODONE HCl Immed Release 5 MG TABLET 10 MG PO (08:51)
[2021-11-29] MEDS: Acetaminophen 325 MG TABLET 650 MG PO (08:51)
[2021-11-29] MEDS: fentaNYL citrate/PF 100 MCG/2 ML VIAL 50 MCG IVPUSH (08:52)
--- NOTE | 2021-11-29 09:32 | W.PM.OPN ---
Operative Note Operative Note Date of Service: 11/29/21 Narrative: Operative note by [facility] Preoperative diagnosis: Nonhealing right BKA stump Postoperative diagnosis: Same Procedure: Excisional debridement to bone Surgeon:Berto Sheppard M.D. Reiki Practitioner: Dez Anesthesia: General Specimens: 1 Drains: None Estimated blood loss: Minimal Indications: 56-year-old gentleman with a prior history of a BKA. He subsequently felt on it and developed a lateral ulcer on that BKA stump. He now presents for revision. The patient has signed the informed consent after reviewing risks, complications, benefits, and alternatives previously discussed with the patient. The patient was given the opportunity to ask any additional questions or voice any concerns. All questions were answered to the patient's satisfaction. Procedure in detail: Patient was brought to the operating room prior to which a time-out was called for patient identification site verification. Right stump was prepped and draped in standard surgical fashion. Curvilinear incision around the dry eschar was created. This was an 8 x 10 cm incision over the lateral aspect of the stump. Dry eschar fibrin S necrotic material was removed all the way down into bone. The bone was scraped. This area was then cultured. We thoroughly irrigated this out. All the necrotic fibrinous material was then removed. We then reapproximated deep layer with a 3-0 Polysorb. And superficial layer with a 2 0 nylon in a mattress fashion. Post debridement measurement was 8.5 x 10.5 x 0.5 cm. It was closed to a linear line with interrupted opening gaps for drainage. Xeroform and a sterile dressing were applied. At the end the case sponge instrument counts were correct. Patient brought to the recovery with stable vitals. This note is constructed using voice recognition software. While every effort has been made to ensure accuracy, gluing machine offbearer errors may have been included. Thank you for allowing me to participate in the care of your patient. Yours sincerely, Berto Sheppard MD, FACS, R.P.V.I.
== END 2021-11-29 10:24 | disposition home or self-care (01) ==
PROVIDERS: PCP Internal Medicine; Visit Provider Surgery Vascular Surgery
PROC: (CPT 11044; principal; 2021-11-29 07:30)
DX: T87.43 Infection of amputation stump, right lower extremity (principal); B96.89 Other specified bacterial agents as the cause of diseases classified elsewhere; E11.52 Type 2 diabetes mellitus with diabetic peripheral angiopathy with gangrene; E11.42 Type 2 diabetes mellitus with diabetic polyneuropathy; E11.621 Type 2 diabetes mellitus with foot ulcer; E11.65 Type 2 diabetes mellitus with hyperglycemia; L97.429 Non-pressure chronic ulcer of left heel and midfoot with unspecified severity; Z79.4 Long term (current) use of insulin; Z87.891 Personal history of nicotine dependence; Z91.81 History of falling
CPT/HCPCS: 11044; 36415; 80048; 82947; 85027; 87071; 87077; 87186; 87205; 88304; 93005; J0690; J1100; J2250; J2405; J3010

== ENCOUNTER → 2021-12-21 13:26 | Outpatient (BNVA) | payer OTHER, SELFPAY | PROVIDERS: PCP Internal Medicine; Visit Provider Surgery Vascular Surgery | DX: I73.9 Peripheral vascular disease, unspecified (principal) | CPT/HCPCS: 99212 ==

== ENCOUNTER → 2022-01-25 13:23 | Outpatient (BNVA) | payer OTHER, SELFPAY | PROVIDERS: PCP Internal Medicine; Visit Provider Surgery Vascular Surgery | DX: I73.9 Peripheral vascular disease, unspecified (principal) | CPT/HCPCS: 99212 ==

== ENCOUNTER → 2022-02-24 15:08 | Outpatient (BNVA) | payer OTHER, SELFPAY | PROVIDERS: PCP Internal Medicine; Visit Provider Surgery Vascular Surgery | DX: I73.9 Peripheral vascular disease, unspecified (principal); Z89.511 Acquired absence of right leg below knee | CPT/HCPCS: 99212 ==

== ENCOUNTER 2022-02-26 10:41 | Outpatient (REF) | payer OTHER, SELFPAY ==
[2022-02-26 11:51] LABS: Cholesterol 204 mg/dL; HDL Cholesterol 34 mg/dL; LDL Cholesterol Calculated 136 mg/dl; Triglycerides 174 mg/dL
== END 2022-02-26 10:42 | disposition home or self-care (01) ==
LOC: HO.LAB 10:41
PROVIDERS: PCP Internal Medicine; Visit Provider Internal Medicine
DX: E11.65 Type 2 diabetes mellitus with hyperglycemia (principal); E78.5 Hyperlipidemia, unspecified; Z79.4 Long term (current) use of insulin
CPT/HCPCS: 36415; 80061; 82043

== ENCOUNTER 2022-03-31 15:59 | Inpatient (IN) | payer OTHER, SELFPAY ==
--- NOTE | ~2022-03-31 | CT_ITS ---
EXAMINATION: CT ABDOMEN AND PELVIS WITH CONTRAST CLINICAL INFORMATION: Pancreatitis. COMPARISON: CT scan abdomen pelvis 09/26/20192020 TECHNIQUE: Multidetector volumetric images were obtained from the superior aspect of the liver through the pubic symphysis following administration of mL of Omnipaque 350 intravenous contrast. Sagittal and coronal reformatted images were obtained on the technologist's workstation. Oral contrast: No This CT examination was performed using dose optimization techniques as appropriate, variously including the following: *Automated exposure control *Adjustment of mA and/or kV according to patient size (this includes techniques or standardized protocols for targeted exams where dose is matched to indication/reason for exam; i.e. extremities or head) *Use of iterative reconstruction technique DLP: 748 mGy-cm FINDINGS: LUNG BASES: Normal aeration of lung bases. No pleural effusion. Coronary artery calcifications. LIVER, GALLBLADDER, AND BILIARY TREE: The liver is normal in size, shape, and attenuation. No focal hepatic lesion or biliary ductal dilatation is present. Status post cholecystectomy. PANCREAS: There is small volume of edema around the mid body and tail the pancreas consistent with pancreatitis. No pseudocyst formation. Normal enhancement of the pancreatic tissue. No evidence of necrosis. There is no pancreatic duct dilatation. SPLEEN: Small calcified granuloma within the spleen. ADRENAL GLANDS: Unremarkable. KIDNEYS AND URETERS: There is a nonobstructive 3 mm stone lower pole left kidney. No stone in the right kidney. No ureteral calculi or hydronephrosis. Exophytic cyst midpole right kidney measuring 1.7 cm is stable. No follow-up imaging is recommended for simple renal cyst.. BLADDER: Unremarkable. GASTROINTESTINAL TRACT: The small and large bowel are unremarkable. The appendix is unremarkable. ABDOMINAL WALL: No significant hernia is appreciated. LYMPH NODES: Normal. VASCULAR: There are scattered vascular calcifications of the abdomen and pelvis. There is no aneurysm of aorta. PELVIC VISCERA: Prostate measures 5 cm transverse. OSSEOUS STRUCTURES: Unremarkable. CT/CT abdomen pelvis w con IMPRESSION: Edema in the peripancreatic fat consistent with pancreatitis. Fleischner guidelines were followed.
--- NOTE | ~2022-03-31 | MR_ITS ---
EXAMINATION: MR ABDOMEN WITHOUT AND WITH CONTRAST CLINICAL INFORMATION: Abdominal pain. Rule out pancreatic necrosis or abscess. COMPARISON: Previous CT of the abdomen and pelvis 03/31/2022. TECHNIQUE: MR abdomen was performed without and with use of 10 mL intravenous Gadavist gadolinium contrast. Postcontrast images are performed in multiphase dynamic sequences. Imaging was performed in 3 planes. FINDINGS: LUNG BASES: The visualized lung bases are unremarkable. LIVER, GALLBLADDER, AND BILIARY TREE: There is signal loss in the liver on [id number] sequences suggestive of mild fatty infiltration. The liver is normal in size and shape. No focal liver lesion. No intrahepatic or extrahepatic biliary duct dilatation. The gallbladder has been removed. PANCREAS: There is slight enlargement of the body of the pancreas. This measures 3.3 cm in AP dimension. There is decreased enhancement of the pancreas in this region and stranding of the adjacent peripancreatic fat and small amount of adjacent peripancreatic fluid. This probably represents mild acute pancreatitis. There is narrowing of the main pancreatic duct in the body of the pancreas in this region. No pancreatic duct dilatation is seen. No significant fluid collection in or adjacent to the pancreas is seen. SPLEEN: Normal. ADRENAL GLANDS: There is fullness of the left adrenal gland. There is a 1.5 x 1.8 cm left adrenal lesion. This loses signal on [id number] sequences suggestive of a benign lipid-rich adenoma. The right adrenal gland is normal. There are small bilateral renal cysts. Kidneys are otherwise unremarkable. KIDNEYS AND URETERS: The kidneys are normal in size, shape, and enhance symmetrically. There are small bilateral renal cysts. No hydronephrosis. No perinephric stranding. GASTROINTESTINAL TRACT: No bowel obstruction. No ascites or fluid collection. ABDOMINAL WALL: No significant hernia is appreciated. LYMPH NODES: There are small retroperitoneal lymph nodes. No enlarged lymph nodes. VASCULAR: Unremarkable. OSSEOUS STRUCTURES: Marrow signal normal. MR/MR abdomen wo/w con IMPRESSION: Probable mild pancreatitis of the body of the pancreas. No evidence of fluid collection in or adjacent to the pancreas or pancreatic necrosis. Imaging follow-up following treatment recommended. Small left adrenal lipid rich adenoma. Bilateral renal cysts.
[2022-03-31 16:19] VITALS: BP 175/86; PULSE 84; RESP 17; TEMP 36.7; O2SAT 99
[2022-03-31 16:30] VITALS: BMI 32.1
--- NOTE | 2022-03-31 16:49 | ECG_ITS ---
Test Reason : ABDOMINAL PAIN Blood Pressure : / mmHG Vent. Rate : 077 BPM Atrial Rate : 077 BPM P-R Int : 164 ms QRS Dur : 146 ms QT Int : 430 ms P-R-T Axes : 044 -65 015 degrees QTc Int : 486 ms Normal sinus rhythm Right bundle branch block Left anterior fascicular block Bifascicular block Minimal voltage criteria for LVH, may be normal variant ( R in aVL ) Abnormal ECG When compared with ECG of 29-NOV-2021 06:35, No significant change was found Referred By: Leighann Espitia Electronically Signed By:SAUL MARCH MD
--- NOTE | 2022-03-31 16:51 | ED.ABDPAIN ---
HPI - Abdominal Pain General Chief Complaint: Abdominal Pain Stated Complaint: Abd pain Time Seen by Provider: 03/31/22 16:48 Source: patient Mode of arrival: EMS History of Present Illness HPI narrative: 56-year-old male with history of diabetes presents via EMS for complaints of 2-3 days of worsening mid abdominal discomfort that he describes as twisting and cramping in nature with associated nausea but denies any fever or chills and states he is still having bowel movements and passing flatus. He endorses a history of pancreatitis secondary to medications as well as renal colic. Otherwise, patient denies any shortness of breath, chest pain/palpitations. Related Data Home Medications Medication Instructions Recorded Confirmed atorvastatin 20 mg tablet 1 tab PO BEDTIME 11/08/21 03/03/22 ibuprofen 800 mg tablet 800 mg PO TID PRN Pain 11/08/21 03/03/22 Previous Rx's Medication Instructions Recorded aspirin 81 mg chewable tablet 81 mg PO DAILY #30 tabs 05/06/21 acetaminophen 650 mg 650 mg PO Q12H PRN pain #60 tabs 06/17/21 tablet,extended release (Tylenol 8 Hour) pen needle, diabetic 31 gauge x #100 ea 10/27/21/16 (BD Ultra-Fine Short Pen Needle) gabapentin 600 mg tablet 600 mg PO TID #90 tabs 12/15/21 metoprolol succinate 50 mg 50 mg PO DAILY #90 tabs 12/24/21 tablet,extended release 24 hr clopidogrel 75 mg tablet (Plavix) 75 mg PO DAILY #90 tabs 01/31/22 Lantus Solostar U-100 Insulin 100 26 unit (0.26 mL) subcut QPM 30 03/03/22 unit/mL (3 mL) subcutaneous pen days #15 mL (insulin glargine) famotidine 40 mg tablet 40 mg PO DAILY PRN heartburn #30 03/03/22 tabs insulin lispro 100 unit/mL See Rx Instructions subcut BIDAC 03/03/22 subcutaneous pen (Humalog KwikPen #30 mL (U-100) Insulin) sertraline 50 mg tablet 75 mg PO DAILY 30 days #45 tabs 03/03/22 empagliflozin 25 mg tablet 25 mg PO DAILY #90 tabs 03/04/22 (Jardiance) Allergies Allergy/AdvReac Type Severity Reaction Status Date / Time No Known Allergies Allergy Verified 03/03/22 16:18 [No Known Allergies*] Review of Systems Review of Systems Pertinent positives and negatives as stated in HPI 10 point review of systems is otherwise negative. [facility] Past Medical History Source: nursing notes reviewed Medical History Alcohol abuse Amputation stump complication Amputation stump infection Arthritis CAD (coronary artery disease) Chronic pancreatitis Chronic 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 Diabetes mellitus with hyperglycemia, with long-term current use of insulin Diabetes mellitus, with long-term current use of insulin Dyslipidemia Erectile dysfunction Essential hypertension Failure of outpatient treatment Hyperlipidemia Increased BMI Intractable left heel pain Kidney calculus Major depression, recurrent Neuropathy PAD (peripheral artery disease) Type 2 diabetes mellitus with diabetic polyneuropathy Type 2 diabetes mellitus with hyperglycemia Surgical History History of right below knee amputation Hx of heart artery stent Hx of lithotripsy S/P debridement Status post below-knee amputation Status post laparoscopic cholecystectomy Family History Family History Mother [place] (myocardial infarction), Onset Age: 64 Diabetes mellitus HTN (hypertension) Maternal Grandmother Diabetes mellitus Social History Social History Household Members: Family Household Members Other:: and daughter Housing: House Do you presently have visiting nurse or other home services: Yes Alcohol intake: never Patient Tobacco Use Status: Never used Tobacco Tobacco use type: Cigarette Cigarette Packs Per Day: 1 Cigarettes Per Day: 20.0 Years Smoked: 28 e-Cigarette/Vaping Use: Never Used Second Hand Smoke Exposure: Yes Use of substances other than those prescribed or required for medical reasons: No Substance Use Type: Marijuana Advance Directives: Yes Advance Directives on File: Yes Advance Directives Date on File: 04/17/21 service: No Current occupational status: unemployed Cognitive needs: No Hearing needs: No Vision needs: No Physical Exam ED Vital Signs: Vital Signs - 24 hr 03/31/22 16:19 03/31/22 19:25 Temperature 98.0 F 98.6 F Pulse Rate 84 78 Respiratory Rate 17 16 Blood Pressure 175/86 H 163/84 H Pulse Oximetry 99 98 Oxygen Delivery Method Room Air Room Air BMI result Body Mass Index 32.1 VITAL SIGNS: Reviewed. GENERAL: Well developed, well nourished, in no acute distress. HEAD: Normocephalic/atraumatic EYES: PERRLA, EOMI EARS: Ext canals without abnormality OROPHARYNX: no oral lesions noted, posterior pharynx clear LUNGS: Normal breath sounds. No adventitious sounds or accessory muscle use. SpO2<99> CARDIOVASCULAR: Regular rate and rhythm without noted murmurs ABDOMEN: Soft, mid abdominal discomfort without palpation hernia, non-distended with bowel sounds MUSCULOSKELETAL: No tenderness, deformities, or effusions noted on gross inspection. EXTREMITIES: No cyanosis, clubbing or edema. SKIN: Inspection of the skin reveals no rashes NEUROLOGIC: Alert and oriented x 4. Strength and sensation to light touch were grossly intact x 4. Course Course Course Narrative: 56-year-old male with history and clinical presentation of abdominal pain and will rule out pancreatitis, renal colic, SBO. Review of all investigations consistent with acute pancreatitis, patient received IV fluids as well as pain medication and although initially had some decrease in pain the pain has since returned, CT scan shows peripancreatic fluid. Patient will receive pain medication and this case was discussed with the inpatient hospitalist who accepts admission. MDM - Abdominal Pain Lab Data Result diagrams: 03/31/22 18:08 03/31/22 18:31 Labs: Lab Results 03/31/22 03/31/22 03/31/22 Range/Units 18:08 18:08 18:31 WBC 9.1 (4.8-10.8) X10*3/uL RBC 5.74 (4.60-5.80) X10*6/uL Hgb 14.9 (14.0-18.0) g/dl Hct 46.2 (42.0-52.0) % MCV 80.5 (80.0-98.0) fL MCH 26.0 L (27.0-33.0) pg MCHC 32.3 (31.0-36.0) g/dl RDW 17.0 H (11.0-16.0) % Plt Count 245 (160-400) X10*3/uL MPV 10.7 (9.4-12.4) fL Immature Gran % (Auto) 0.3 (0.0-0.4) % Neut % (Auto) 61.4 (45-73) % Lymph % (Auto) 24.4 (20-40) % [place] % (Auto) 8.2 (2-11) % Eos % (Auto) 4.8 H (0-4) % Baso % (Auto) 0.9 (0-2) % Lymph # (Auto) 2.2 (1.2-4.9) X10*3/uL [place] # (Auto) 0.8 (0.1-1.2) X10*3/uL Eos # (Auto) 0.4 (0.0-0.4) X10*3/uL Baso # (Auto) 0.1 (0.0-0.2) X10*3/uL Abs Immat Gran (auto) 0.03 (0.00-0.03) X10*3/uL Absolute Neuts (auto) 5.6 (2.0-8.3) x10*3/uL Absolute Nucleated RBC 0.000 (0.0-0.012) X10*3/uL Nucleated RBC % (auto) 0.0 (0.0-0.2) /100WBC Sodium 138 (135-145) mmol/L Potassium 3.8 (3.3-5.1) mmol/L Chloride 100 (96-108) mmol/L Carbon Dioxide 26 (22-29) mmol/L Anion Gap 16 (12-20) BUN 9 (9-16) mg/dL Creatinine 0.84 (0.5-1.4) mg/dL Estim Creat Clear Calc 115.2 Estimated GFR > 60 Random Glucose 229 H D (60-115) mg/dL Calcium 8.7 D (8.4-10.2) mg/dL Total Bilirubin 0.4 (0.0-1.0) mg/dL AST 33 (5-37) U/L ALT 24 (0-40) U/L Alkaline Phosphatase 114 (39-117) U/L Total Protein 7.5 (6.5-8.0) g/dL Albumin 4.0 D (3.5-5.0) g/dL Lipase 283 H (8-78) U/L Urine Color YELLOW Urine Appearance CLOUDY Urine pH 6.0 (5.0-8.0) Ur Specific [place] 1.010 (1.005-1.025) Urine Protein TRACE (NEG-TRACE) MG/DL Urine Glucose (UA) >=1000 H (NEG) MG/DL Urine Ketones NEG (NEG) MG/DL Urine Blood 2+ H (NEG) Urine Nitrite POS H (NEG) Ur Leukocyte Esterase TRACE H (NEG) Urine RBC 5-9 H (0) /HPF Urine WBC 10-14 H (0-4) /HPF Ur Squamous Epith Cells 2+ /LPF Urine Bacteria 2+ /LPF Urine Mucus TRACE /LPF ECG Data Attestation: I personally reviewed and interpreted this ECG as follows: Prior ECG tracings: available for review (No acute changes on comparison) Interpretation: Normal sinus rhythm, HR-77, RBBB, no STEMI, DC/QTC are within normal limits. Discharge Plan Discharge Clinical Impression: Acute pancreatitis, Essential hypertension, Diabetes mellitus, with long-term current use of insulin Patient Disposition: Admitted As Inpatient Prescriptions: No Action gabapentin 600 mg tablet 600 mg PO TID Qty: 90 4RF metoprolol succinate 50 mg tablet extended release 24 hr 50 mg PO DAILY Qty: 90 3RF clopidogrel [Plavix] 75 mg tablet 75 mg PO DAILY Qty: 90 1RF Jardiance 25 mg tablet 25 mg PO DAILY Qty: 90 1RF atorvastatin 20 mg tablet 1 tab PO BEDTIME ibuprofen 800 mg Tablet 800 mg PO TID PRN (Reason: Pain) aspirin 81 mg tablet,chewable 81 mg PO DAILY Qty: 30 5RF sertraline 50 mg tablet 75 mg PO DAILY 30 Days Qty: 45 4RF famotidine 40 mg tablet 40 mg PO DAILY PRN (Reason: heartburn) Qty: 30 3RF insulin lispro [Humalog KwikPen Insulin] 100 unit/mL insulin pen See Rx Instructions SUBCUT BIDAC Qty: 30 3RF Rx Instructions: subcutaneously 2 times a day before meals; BEFORE BREAKFAST AND DINNER per sliding scale coverage insulin glargine [Lantus Solostar U-100 Insulin] 100 unit/mL (3 mL) insulin pen 26 unit subcut QPM 30 Days Qty: 15 2RF acetaminophen [Tylenol 8 Hour] 650 mg tablet extended release 650 mg PO Q12H PRN (Reason: pain) Qty: 60 0RF (DME) pen needle, diabetic [BD Ultra-Fine Short Pen Needle] 31 gauge x 5/16 needle See Rx Instructions .Route Qty: 100 5RF Rx Instructions: As directed TID AC
[2022-03-31] MEDS: Ketorolac Tromethamine 30 MG/ML VIAL 15 MG IVPUSH (18:10)
[2022-03-31 18:15] LABS: MANUAL DIFF FLAG NO
[2022-03-31 18:18] LABS: Appearance Urine CLOUDY; Color Urine YELLOW; Glucose Urine UA >=1000 MG/DL (NEG); Leukocyte Esterase Urine TRACE (NEG); Nitrite Urine POS (NEG); UACC Culture Trigger YES; Urine Blood 2+ (NEG); Urine Ketones NEG (NEG); Urine Protein TRACE MG/DL (NEG-TRACE)
[2022-03-31 18:23] LABS: Bacteria Urine 2+ /LPF; Mucus Urine TRACE /LPF; Squamous Epithelial Cell Urine 2+ /LPF
[2022-03-31 18:37] LABS: Basophils Absolute Auto 0.1 X10*3/uL (0.0-0.2); Basophils Percent Auto 0.9 % (0-2); Eosinophils Absolute Auto 0.4 X10*3/uL (0.0-0.4); Eosinophils Percent Auto 4.8 % (0-4); Hematocrit 46.2 % (42.0-52.0); Hemoglobin 14.9 g/dl (14.0-18.0); Imm Gran Abs Auto 0.03 X10*3/uL (0.00-0.03); Imm Gran Pct Auto 0.3 % (0.0-0.4); Lymphocytes Absolute Auto 2.2 X10*3/uL (1.2-4.9); Lymphocytes Percent Auto 24.4 % (20-40); Mean Corpuscular HGB Conc 32.3 g/dl (31.0-36.0); Mean Corpuscular Volume 80.5 fL (80.0-98.0); Mean Platelet Volume 10.7 fL (9.4-12.4); Monocytes Absolute Auto 0.8 X10*3/uL (0.1-1.2); Monocytes Percent Auto 8.2 % (2-11); Neutrophils Absolute Auto 5.6 x10*3/uL (2.0-8.3); Neutrophils Percent Auto 61.4 % (45-73); Platelet Count 245 X10*3/uL (160-400); Red Blood Count 5.74 X10*6/uL (4.60-5.80); White Blood Count 9.1 X10*3/uL (4.8-10.8)
[2022-03-31 18:59] LABS: Alanine Aminotransferase 24 U/L (0-40); Alkaline Phosphatase 114 U/L (39-117); Anion Gap 16 (12-20); Aspartate Amino Transferase 33 U/L (5-37); Bilirubin Total 0.4 mg/dL (0.0-1.0); Blood Urea Nitrogen 9 mg/dL (9-16); Calcium 8.7 mg/dL (8.4-10.2); Carbon Dioxide 26 mmol/L (22-29); Chloride 100 mmol/L (96-108); Creatinine Clr Calc Pharmacy 115.2; Estimated Glomerular Filt Rate > 60; Glucose Random 229 mg/dL (60-115); Lipase 283 U/L (8-78); Potassium 3.8 mmol/L (3.3-5.1); Sodium 138 mmol/L (135-145); Total Protein 7.5 g/dL (6.5-8.0)
[2022-03-31 19:25] VITALS: BP 163/84; PULSE 78; RESP 16; TEMP 37; O2SAT 98
[2022-03-31] MEDS: 0.9 % Sodium Chloride 2,000 ML 999 ML IV (19:32)
[2022-03-31] MEDS: iohexoL 350 MG/ML 100 ML INFUS..BTL IV (20:07)
--- NOTE | 2022-03-31 21:47 | PHA.MEDREC ---
Pharmacy Consult ? Medication Reconciliation Pharmacy has completed the medication reconciliation.
[2022-03-31 22:06] VITALS: RESP 14
[2022-03-31] MEDS: HYDROmorphone HCl 0.5 MG/0.5 ML SYRINGE 0.25 MG IVPUSH (22:06)
[2022-03-31 22:12] LABS: COVID-19 Test Negative (Negative)
--- NOTE | 2022-03-31 22:48 | PM.IMHP ---
History of Present Illness Date of Service: 03/31/22 Chief Complaint: abdominal pain 56-year-old male with a past medical history of hypertension, hyperlipidemia, diabetes, CAD, erectile dysfunction, history of pancreatitis, remote history of alcohol abuse, peripheral vascular disease, neuropathy, anxiety, depression, renal calculi; presented to the hospital today with a chief complaint of abdominal pain. Patient reports that over the past couple days he has been having abdominal pain associated nausea. Denies any vomiting. Abdominal pain is located in the epigastrium. Similar to his prior episodes of pancreatitis. Hence diff presented to the ER for further evaluation. Patient reports decreased oral intake. Denies any chest pain or palpitations. Denies any fever chills cough. Denies any diarrhea. Patient denies any recent alcohol use. Mentions that he used to drink about 20 years ago. Mentions his prior episodes of pancreatitis was secondary to diabetes medications. Review of all other systems is negative except mentioned above ER course: Per ER team patient noted to have EKG done in the; lipase elevated; CT scan showed acute pancreatitis. Admitted to the hospital for further management. [facility] Medical History Alcohol abuse Amputation stump complication Amputation stump infection Arthritis CAD (coronary artery disease) Chronic pancreatitis Chronic 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 Diabetes mellitus with hyperglycemia, with long-term current use of insulin Diabetes mellitus, with long-term current use of insulin Dyslipidemia Erectile dysfunction Essential hypertension Failure of outpatient treatment Hyperlipidemia Increased BMI Intractable left heel pain Kidney calculus Major depression, recurrent Neuropathy PAD (peripheral artery disease) Type 2 diabetes mellitus with diabetic polyneuropathy Type 2 diabetes mellitus with hyperglycemia Family History Mother [place] (myocardial infarction), Onset Age: 64 Diabetes mellitus HTN (hypertension) Maternal Grandmother Diabetes mellitus Surgical History History of right below knee amputation Hx of heart artery stent Hx of lithotripsy S/P debridement Status post below-knee amputation Status post laparoscopic cholecystectomy Social History Household Members: Family Household Members Other:: and daughter Housing: House Do you presently have visiting nurse or other home services: Yes Alcohol intake: never Patient Tobacco Use Status: Never used Tobacco Tobacco use type: Cigarette Cigarette Packs Per Day: 1 Cigarettes Per Day: 20.0 Years Smoked: 28 e-Cigarette/Vaping Use: Never Used Second Hand Smoke Exposure: Yes Use of substances other than those prescribed or required for medical reasons: No Substance Use Type: Marijuana Advance Directives: Yes Advance Directives on File: Yes Advance Directives Date on File: 04/17/21 service: No Current occupational status: unemployed Cognitive needs: No Hearing needs: No Vision needs: No Meds Allergies Allergy/AdvReac Type Severity Reaction Status Date / Time No Known Allergies Allergy Verified 03/03/22 16:18 [No Known Allergies*] Active Medications: Current Medications Acetaminophen (Acetaminophen 325 Mg Tablet) 650 mg PO Q6H PRN PRN Reason: Pain, Mild (Pain Scale 1-3) Aspirin (Aspirin 81 Mg Tab.Chew) 81 mg PO DAILY [facility] Atorvastatin Calcium (Atorvastatin Calcium 20 Mg Tablet) 20 mg PO BEDTIME [facility] Clopidogrel Bisulfate (Clopidogrel Bisulfate 75 Mg Tablet) 75 mg PO DAILY [facility] Dextrose (Dextrose 50 % 25 Gm/50 Ml Syringe) 25 gm IVPUSH Q15M PRN; Protocol PRN Reason: per Hypoglycemia Standing Ord. Enoxaparin Sodium (Enoxaparin Sodium 40 Mg/0.4 Ml Syringe) 40 mg SUBCUT Q24H [facility] Famotidine (Famotidine 20 Mg Tablet) 40 mg PO DAILY PRN PRN Reason: heartburn Gabapentin (Gabapentin 600 Mg Tablet) 600 mg PO TID [facility] Glucose (Glucose Gel 15 Gm Gel..Gram.) 15 gm PO Q15M PRN; Protocol PRN Reason: per Hypoglycemia Standing Ord. Hydromorphone HCl (Hydromorphone Hcl 1 Mg/Ml Syringe) 0.5 mg IVPUSH Q4H PRN; Protocol PRN Reason: Pain, Severe (Pain Scale 7-10) Dextrose/Sodium Chloride (D51/2ns) 1,000 mls @ 100 mls/hr IVCONT .Q10H [facility] Insulin Human Lispro (Insulin Lispro 100 Unit/Ml 3 Ml Vial) 0 unit SUBCUT QIDACHS [facility]; Protocol Melatonin (Melatonin 3 Mg Tablet) 6 mg PO BEDTIME PRN PRN Reason: Insomnia Metoprolol Succinate (Metoprolol Succinate Er 50 Mg Tab.Er.24h) 50 mg PO DAILY [facility]; Protocol Pharmacy Consult (Consult Rx Perform Med Rec) 1 each MISCELLANE ONCE PRN PRN Reason: Consult order Senna (Sennosides 8.6 Mg Tablet) 17.2 mg PO BEDTIME PRN PRN Reason: Constipation Sertraline HCl (Sertraline Hcl 25 Mg Tablet) 75 mg PO DAILY [facility] Sodium Chloride (0.9 % Sodium Chloride Flush 3 Ml Syringe) 3 ml IVFLUSH QSHIFT [facility] Home Medications Medication Instructions Recorded Confirmed Last Taken Type atorvastatin 20 mg tablet 1 tab PO BEDTIME 11/08/21 03/31/22 03/30/22 History ibuprofen 800 mg tablet 800 mg PO TID PRN Pain 11/08/21 03/31/22 Unknown History insulin glargine 100 unit/mL (3 17 unit subcut BEDTIME 03/31/22 03/31/22 03/30/22 History mL) subcutaneous pen (Lantus Solostar U-100 Insulin) Physical Exam Vital Signs and Narrative: Vital Signs: Last Vital Signs Temp 98.6 F 03/31/22 19:25 Pulse 78 03/31/22 19:25 Resp 14 03/31/22 22:06 BP 163/84 H 03/31/22 19:25 Pulse Ox 98 03/31/22 19:25 O2 Del Method 03/31/22 19:25 BMI result Body Mass Index 32.1 Gen: Appears be in no acute distress HEENT: NCAT, Moist mucosa. Pulmonary: Vesicular breath sounds, fair air entry CVS: Normal S1-S2 Abdomen: BS+, Soft, Tender in epigastrium; no guarding no rigidity Extremities: Warm well perfused Neuro: Alert and awake. Results Labs CBC and Chem 7: 03/31/22 18:08 03/31/22 18:31 Labs: Laboratory Results - last 24 hr 03/31/22 03/31/22 03/31/22 18:08 18:08 18:31 MCV 80.5 MCH 26.0 L MCHC 32.3 RDW 17.0 H Plt Count 245 MPV 10.7 Immature Gran % (Auto) 0.3 Neut % (Auto) 61.4 Lymph % (Auto) 24.4 [place] % (Auto) 8.2 Eos % (Auto) 4.8 H Baso % (Auto) 0.9 Lymph # (Auto) 2.2 [place] # (Auto) 0.8 Eos # (Auto) 0.4 Baso # (Auto) 0.1 Abs Immat Gran (auto) 0.03 Absolute Neuts (auto) 5.6 Absolute Nucleated RBC 0.000 Nucleated RBC % (auto) 0.0 Anion Gap 16 Estim Creat Clear Calc 115.2 Estimated GFR > 60 Random Glucose 229 H D Calcium 8.7 D Total Bilirubin 0.4 AST 33 ALT 24 Alkaline Phosphatase 114 Total Protein 7.5 Albumin 4.0 D Lipase 283 H Urine Color YELLOW Urine Appearance CLOUDY Urine pH 6.0 Ur Specific [place] 1.010 Urine Protein TRACE Urine Glucose (UA) >=1000 H Urine Ketones NEG Urine Blood 2+ H Urine Nitrite POS H Ur Leukocyte Esterase TRACE H Urine RBC 5-9 H Urine WBC 10-14 H Ur Squamous Epith Cells 2+ Urine Bacteria 2+ Urine Mucus TRACE COVID-19 ([facility]) COVID-19 Clin Com 03/31/22 21:43 MCV MCH MCHC RDW Plt Count MPV Immature Gran % (Auto) Neut % (Auto) Lymph % (Auto) [place] % (Auto) Eos % (Auto) Baso % (Auto) Lymph # (Auto) [place] # (Auto) Eos # (Auto) Baso # (Auto) Abs Immat Gran (auto) Absolute Neuts (auto) Absolute Nucleated RBC Nucleated RBC % (auto) Anion Gap Estim Creat Clear Calc Estimated GFR Random Glucose Calcium Total Bilirubin AST ALT Alkaline Phosphatase Total Protein Albumin Lipase Urine Color Urine Appearance Urine pH Ur Specific [place] Urine Protein Urine Glucose (UA) Urine Ketones Urine Blood Urine Nitrite Ur Leukocyte Esterase Urine RBC Urine WBC Ur Squamous Epith Cells Urine Bacteria Urine Mucus COVID-19 ([facility]) Negative COVID-19 Clin Com See Note Imaging Radiologist's Impressions: Impressions Abdomen/Pelvis CT 03/31/22 20:10 IMPRESSION: Edema in the peripancreatic fat consistent with pancreatitis. Fleischner guidelines were followed. Assessment and Plan (1) Acute pancreatitis: Status: Acute Plan 56-year-old male with a past medical history of hypertension, hyperlipidemia, diabetes, CAD, erectile dysfunction, history of pancreatitis, remote history of alcohol abuse, peripheral vascular disease, neuropathy, anxiety, depression, renal calculi; presented to the hospital today with a chief complaint of abdominal pain. noted to have acute pancreatitis. Admitted for further management. Acute pancreatitis: Patient had prior similar episodes. Patient is on Jardiance -likely contributory -will hold for now. Patient denies any alcohol use. Will consult Gastroenterology Supportive and Pain control Gentle IV fluids History of diabetes: Insulin sliding scale. Monitor fingerstick glucose closely and adjust insulins as needed. History of hypertension / hyperlipidemia/ CAD: Continue home aspirin, Plavix, statin, metoprolol History of depression: Continue home sertraline DVT prophylaxis: Lovenox Code status: Full code Quality Stroke Does the patient have a stroke diagnosis?: No VTE Prior VTE?: No VTE Risk Level:: Medical - moderate - high VTE Device Contraindication: Treatment Not Indicated VTE Drug Contraindication: N/A - Med Ordered
[2022-03-31] MEDS: Dextrose 5 % and 0.45 % NaCl 1,000 ML 100 ML IVCONT (23:55)
[2022-03-31] MEDS: Enoxaparin Sodium 40 MG/0.4 ML SYRINGE SUBCUT (23:55)
[2022-04-01] VITALS (7 sets, daily range): BP systolic 151–170; BP diastolic 60–75; PULSE 60–98; RESP 14–18; TEMP 36.3–36.7; O2SAT 95–99
[2022-04-01] MEDS: 0.9 % Sodium Chloride Flush 3 ML SYRINGE IVFLUSH (00:17)
[2022-04-01 00:38] LABS: Glucose, Whole Blood 311 mg/dL (60-115)
[2022-04-01 01:59] LABS: Glucose, Whole Blood 260 mg/dL (60-115)
[2022-04-01] MEDS: HYDROmorphone HCl 1 MG/ML SYRINGE 0.5 MG IVPUSH ×5 (02:14→22:16)
[2022-04-01 06:11] LABS: MANUAL DIFF FLAG NO
[2022-04-01 06:14] LABS: Basophils Absolute Auto 0.1 X10*3/uL (0.0-0.2); Basophils Percent Auto 0.9 % (0-2); Eosinophils Absolute Auto 0.5 X10*3/uL (0.0-0.4); Eosinophils Percent Auto 5.8 % (0-4); Hematocrit 41.9 % (42.0-52.0); Hemoglobin 13.4 g/dl (14.0-18.0); Imm Gran Abs Auto 0.03 X10*3/uL (0.00-0.03); Imm Gran Pct Auto 0.4 % (0.0-0.4); Lymphocytes Absolute Auto 2.2 X10*3/uL (1.2-4.9); Lymphocytes Percent Auto 27.5 % (20-40); Mean Corpuscular Hemoglobin 26.2 pg (27.0-33.0); Mean Corpuscular Volume 81.8 fL (80.0-98.0); Mean Platelet Volume 10.7 fL (9.4-12.4); Monocytes Absolute Auto 0.8 X10*3/uL (0.1-1.2); Monocytes Percent Auto 10.2 % (2-11); Neutrophils Absolute Auto 4.3 x10*3/uL (2.0-8.3); Neutrophils Percent Auto 55.2 % (45-73); Platelet Count 214 X10*3/uL (160-400); Red Blood Count 5.12 X10*6/uL (4.60-5.80); Red Cell Distribution Width 16.8 % (11.0-16.0); White Blood Count 7.8 X10*3/uL (4.8-10.8)
[2022-04-01 06:41] LABS: Anion Gap 13 (12-20); Blood Urea Nitrogen 7 mg/dL (9-16); Calcium 8.5 mg/dL (8.4-10.2); Carbon Dioxide 26 mmol/L (22-29); Chloride 102 mmol/L (96-108); Creatinine Clr Calc Pharmacy 120.9; Estimated Glomerular Filt Rate > 60; Glucose Random 254 mg/dL (60-115); Potassium 3.9 mmol/L (3.3-5.1); Sodium 137 mmol/L (135-145)
--- NOTE | 2022-04-01 07:21 | PM.GICN ---
History of Present Illness Data of Consult Service Date: 04/01/22 Requesting physician: Dustin Benjamin Primary Care Provider: Shanta Haney MD HPI Reason for consult: pancreatitis 56 YM with hypertension, hyperlipidemia, diabetes, CAD, erectile dysfunction, history of pancreatitis, remote history of alcohol abuse, peripheral vascular disease, neuropathy, anxiety, depression,? renal calculi. Pt was seen at [facility] on 03/31/22 with abdominal pain.? He is status post lap tera in 2009 for gallstone pancreatitis. Patient reports that over the past couple days he has been having upper pain associated nausea.? Denies any vomiting.? Abdominal pain is similar to his prior episodes of pancreatitis and was 10/10 on arrival to the ED and improved to 7/10 today after pain medications. Patient reports decreased oral intake.? Denies any chest pain or palpitations.? Denies any fever chills cough.? Denies any diarrhea.? Patient denies any recent alcohol use.? Mentions that he used to drink socially about 20 years ago.? Pt reports having recurrent episodes of acute pancreatitis for the past 30 yrs - ? attributed to DM versus diabetic medications Last episode was 2 years ago. Patient denies known family history of pancreatic disease, colon cancer or GI malignancy ER course: Per ER team patient noted to have EKG done in the; lipase elevated to 282 and improved to [address] scan showed acute pancreatitis.? Admitted to the hospital for further management. IMAGING STUDIES: 03/31/[address] SCAN SHOWED: PANCREAS: There is small volume of edema around the mid body and tail the pancreas consistent with pancreatitis. No pseudocyst formation. Normal enhancement of the pancreatic tissue. No evidence of necrosis. There is no pancreatic duct dilatation.? Review of Systems Review of Systems: Pertinent positives and negatives as stated in HPI 10 point review of systems is otherwise negative. FORMERLY [facility], [facility]–1983 Past Medical History Medical History Alcohol abuse Amputation stump complication Amputation stump infection Arthritis CAD (coronary artery disease) Chronic pancreatitis Chronic 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 Diabetes mellitus with hyperglycemia, with long-term current use of insulin Diabetes mellitus, with long-term current use of insulin Dyslipidemia Erectile dysfunction Essential hypertension Failure of outpatient treatment Hyperlipidemia Increased BMI Intractable left heel pain Kidney calculus Major depression, recurrent Neuropathy PAD (peripheral artery disease) Type 2 diabetes mellitus with diabetic polyneuropathy Type 2 diabetes mellitus with hyperglycemia Family History Family History Mother [place] (myocardial infarction), Onset Age: 64 Diabetes mellitus HTN (hypertension) Maternal Grandmother Diabetes mellitus Surgical History Surgical History History of right below knee amputation Hx of heart artery stent Hx of lithotripsy S/P debridement Status post below-knee amputation Status post laparoscopic cholecystectomy Social History Social History Household Members: Spouse Household Members Other:: and daughter Housing: Apartment Do you presently have visiting nurse or other home services: No Alcohol intake: never Patient Tobacco Use Status: Never used Tobacco Tobacco use type: Cigarette Cigarette Packs Per Day: 1 Cigarettes Per Day: 20.0 Years Smoked: 28 e-Cigarette/Vaping Use: Never Used Second Hand Smoke Exposure: Yes Substance Use Type: Marijuana Advance Directives Date on File: 04/17/21 service: No Current occupational status: unemployed Cognitive needs: No Hearing needs: No Vision needs: No Meds Allergies Allergy/AdvReac Type Severity Reaction Status Date / Time No Known Allergies Allergy Verified 03/03/22 16:18 [No Known Allergies*] Active Medications: Current Medications Acetaminophen (Acetaminophen 325 Mg Tablet) 650 mg PO Q6H PRN PRN Reason: Pain, Mild (Pain Scale 1-3) Aspirin (Aspirin 81 Mg Tab.Chew) 81 mg PO DAILY [facility] Atorvastatin Calcium (Atorvastatin Calcium 20 Mg Tablet) 20 mg PO BEDTIME [facility] Clopidogrel Bisulfate (Clopidogrel Bisulfate 75 Mg Tablet) 75 mg PO DAILY [facility] Dextrose (Dextrose 50 % 25 Gm/50 Ml Syringe) 25 gm IVPUSH Q15M PRN; Protocol PRN Reason: per Hypoglycemia Standing Ord. Enoxaparin Sodium (Enoxaparin Sodium 40 Mg/0.4 Ml Syringe) 40 mg SUBCUT Q24H [facility] Last Admin: 03/31/22 23:55 Dose: 40 mg Famotidine (Famotidine 20 Mg Tablet) 40 mg PO DAILY PRN PRN Reason: heartburn Gabapentin (Gabapentin 600 Mg Tablet) 600 mg PO TID [facility] Glucose (Glucose Gel 15 Gm Gel..Gram.) 15 gm PO Q15M PRN; Protocol PRN Reason: per Hypoglycemia Standing Ord. Hydromorphone HCl (Hydromorphone Hcl 1 Mg/Ml Syringe) 0.5 mg IVPUSH Q4H PRN; Protocol PRN Reason: Pain, Severe (Pain Scale 7-10) Last Admin: 04/01/22 02:14 Dose: 0.5 mg Dextrose/Sodium Chloride (D51/2ns) 1,000 mls @ 100 mls/hr IVCONT .Q10H [facility] Last Admin: 03/31/22 23:55 Dose: 100 mls/hr Insulin Human Lispro (Insulin Lispro 100 Unit/Ml 3 Ml Vial) 0 unit SUBCUT QIDACHS [facility]; Protocol Melatonin (Melatonin 3 Mg Tablet) 6 mg PO BEDTIME PRN PRN Reason: Insomnia Metoprolol Succinate (Metoprolol Succinate Er 50 Mg Tab.Er.24h) 50 mg PO DAILY [facility]; Protocol Pharmacy Consult (Consult Rx Perform Med Rec) 1 each MISCELLANE ONCE PRN PRN Reason: Consult order Senna (Sennosides 8.6 Mg Tablet) 17.2 mg PO BEDTIME PRN PRN Reason: Constipation Sertraline HCl (Sertraline Hcl 25 Mg Tablet) 75 mg PO DAILY [facility] Sodium Chloride (0.9 % Sodium Chloride Flush 3 Ml Syringe) 3 ml IVFLUSH QSHIFT [facility] Last Admin: 04/01/22 07:09 Dose: Not Given Home Medications Medication Instructions Recorded Confirmed Last Taken Type atorvastatin 20 mg tablet 1 tab PO BEDTIME 11/08/21 03/31/22 03/30/22 History ibuprofen 800 mg tablet 800 mg PO TID PRN Pain 11/08/21 03/31/22 Unknown History insulin glargine 100 unit/mL (3 17 unit subcut BEDTIME 03/31/22 03/31/22 03/30/22 History mL) subcutaneous pen (Lantus Solostar U-100 Insulin) Physical Exam Vital Signs: Vital Signs: Last Vital Signs Temp 97.7 F 04/01/22 00:28 Pulse 73 04/01/22 00:28 Resp 14 04/01/22 02:14 BP 152/75 H 04/01/22 00:28 Pulse Ox 98 04/01/22 00:28 O2 Del Method 04/01/22 00:28 BMI result Body Mass Index 32.1 Const: General: no acute distress Nutritional Appearance: obese Orientation/consciousness: patient oriented x3 Limitations: language barrier HEENT: Head: Yes normal to inspection Ears: hearing grossly normal bilaterally Eyes: Sclerae: sclerae normal Pupils: Equal, round and reactive pupils present Neck: Neck: Yes normal visual inspection Chest: Chest palpation & inspection: normal inspection of the chest Resp: Effort & Inspection: normal respiratory effort Auscultation: clear to auscultation bilaterally Cardio: Palpation: normal PMI Rate: regular rate Rhythm: regular rhythm Heart sounds: S1 normal heart sound present, S2 normal heart sound present and no murmurs GI: Palpation (GI): Soft to palpation, Tenderness to palpation present (GI) (Moderate diffuse abdominal tenderness) and No hepatosplenomegaly present Auscultation: normal bowel sounds Rectal Exam - Male: Yes deferred Skin: General skin exam: no rashes or lesions noted Neuro: General: patient oriented x3, gait normal and moves all extremities Cranial nerves: Yes Equal, round and reactive pupils present Extrem: General: Yes amputation noted (right AKA) Psych: Appearance: grossly normal Mental Status: mental status grossly normal Results Labs CBC & Chem 7: 04/01/22 05:45 04/05/22 11:45 Labs: Short CBC 03/31/22 04/01/22 Range/Units 18:08 05:45 WBC 9.1 7.8 (4.8-10.8) X10*3/uL Hgb 14.9 13.4 L (14.0-18.0) g/dl Hct 46.2 41.9 L (42.0-52.0) % Plt Count 245 214 (160-400) X10*3/uL [facility] 03/31/22 04/01/22 18:31 05:45 Sodium 138 137 Potassium 3.8 3.9 Chloride 100 102 Carbon Dioxide 26 26 BUN 9 7 L Creatinine 0.84 0.80 Calcium 8.7 D 8.5 Liver Function 03/31/22 Range/Units 18:31 Total Bilirubin 0.4 (0.0-1.0) mg/dL AST 33 (5-37) U/L ALT 24 (0-40) U/L Alkaline Phosphatase 114 (39-117) U/L Albumin 4.0 D (3.5-5.0) g/dL Urine 03/31/22 Range/Units 18:08 Urine Color YELLOW Urine Appearance CLOUDY Urine pH 6.0 (5.0-8.0) Ur Specific [place] 1.010 (1.005-1.025) Urine Protein TRACE (NEG-TRACE) MG/DL Urine Glucose (UA) >=1000 H (NEG) MG/DL Assessment and Plan (1) Acute pancreatitis: Status: Acute Plan 56 YM with hypertension, hyperlipidemia, diabetes, CAD, erectile dysfunction, history of pancreatitis, remote history of alcohol abuse, peripheral vascular disease, neuropathy, anxiety, depression,? renal calculi. Pt admitted with acute pancreatitis. Pt is status post lap tera in 2009 for gallstone pancreatitis.? Abdominal pain is similar to his prior episodes of pancreatitis and was 10/10 on arrival to the ED and improved to 7/10 today after pain medications. Patient denies any recent alcohol use.? Mentions that he used to drink socially about 20 years ago.? Pt reports having recurrent episodes of acute pancreatitis for the past 30 yrs - ? attributed to DM versus diabetic medications Last episode was 2 years ago. Patient denies known family history of pancreatic disease, colon cancer or GI malignancy Lipase elevated to 282 and improved to [address] scan showed acute pancreatitis.? Admitted to the hospital for further management. Pt has past evaluations with Abd MRI x 2 (in 2016 and 2011) which showed hepatic steatosis and no biliary disease. Pt was recently started on empagliflozin for DM - acute pancreatitis is a rare complication with case reports found in the literature IMAGING STUDIES: 03/31/[address] SCAN SHOWED: PANCREAS: There is small volume of edema around the mid body and tail the pancreas consistent with pancreatitis. No pseudocyst formation. Normal enhancement of the pancreatic tissue. No evidence of necrosis. There is no pancreatic duct dilatation.? RECOMMENDATIONS: 1. Continue IVF, IV pain medications and a clear liquid diet. Ok to advance diet in the am if pain and lipase have improved 2. Need to consider changing Empagliflozin to alternate medications for management of DM Procedures Date of Service Date of Service: 04/01/22
[2022-04-01] MEDS: Sertraline HCL 25 MG TABLET 75 MG PO (07:23)
[2022-04-01] MEDS: Aspirin 81 MG TAB.CHEW PO (07:24)
[2022-04-01] MEDS: Clopidogrel Bisulfate 75 MG TABLET PO (07:24)
[2022-04-01] MEDS: Gabapentin 600 MG TABLET PO ×3 (07:24→20:36)
[2022-04-01] MEDS: Metoprolol Succinate ER 50 MG TAB.ER.24H PO (07:24)
[2022-04-01 07:28] LABS: Glucose, Whole Blood 222 mg/dL (60-115)
[2022-04-01 07:49] LABS: Lipase 253 U/L (8-78)
[2022-04-01 08:24] LABS: Vitamin B12 549 pg/mL (200-900)
--- NOTE | 2022-04-01 09:26 | P.PNIM_ITS ---
Subjective Subjective Date of Service: 04/01/22 Interval History: Admitted for acute pancreatitis, feeling better this a.m. IV Dilaudid is helping with abdominal pain, denies nausea, vomiting, feels hungry, denies fever chills denies alcohol abuse denies illicit drug use, quit alcohol greater than 20 years, started on Jardiance couple months ago. Review of Systems [employer] WORK[employer] no headache no dizziness CVS no chest pain Respiratory no cough, no shortness of breath Review of Systems: Yes all other systems are reviewed and are negative Physical Exam Vital Signs: Vital Signs: Last Vital Signs Temp 97.7 F 04/01/22 00:28 Pulse 76 04/01/22 07:30 Resp 16 04/01/22 07:30 BP 155/75 H 04/01/22 07:30 Pulse Ox 97 04/01/22 07:30 O2 Del Method 04/01/22 07:30 BMI result Body Mass Index 32.1 Const: Other: General awake alert, no acute distress. Neck no JVD. CVS regular rate rhythm, Respiratory lungs clear to auscultation, no respiratory distress, no wheeze, no rhonchi. Gastrointestinal abdomen obese, mild mid abdominal tenderness with deep palpation, bowel sounds audible, no guarding , no rigidity. Extremities right BKA Neuro nonfocal Skin no rash Objective Data Active Medications Acetaminophen (Acetaminophen 325 Mg Tablet) 650 mg PO Q6H PRN PRN Reason: Pain, Mild (Pain Scale 1-3) Aspirin (Aspirin 81 Mg Tab.Chew) 81 mg PO DAILY [facility] Last Admin: 04/01/22 07:24 Dose: 81 mg Documented By: CONSUELO Atorvastatin Calcium (Atorvastatin Calcium 20 Mg Tablet) 20 mg PO BEDTIME [facility] Clopidogrel Bisulfate (Clopidogrel Bisulfate 75 Mg Tablet) 75 mg PO DAILY [facility] Last Admin: 04/01/22 07:24 Dose: 75 mg Documented By: CONSUELO Dextrose (Dextrose 50 % 25 Gm/50 Ml Syringe) 25 gm IVPUSH Q15M PRN; Protocol PRN Reason: per Hypoglycemia Standing Ord. Enoxaparin Sodium (Enoxaparin Sodium 40 Mg/0.4 Ml Syringe) 40 mg SUBCUT Q24H [facility] Last Admin: 03/31/22 23:55 Dose: 40 mg Documented By: BERONICA Famotidine (Famotidine 20 Mg Tablet) 40 mg PO DAILY PRN PRN Reason: heartburn Gabapentin (Gabapentin 600 Mg Tablet) 600 mg PO TID [facility] Last Admin: 04/01/22 07:24 Dose: 600 mg Documented By: CONSUELO Glucose (Glucose Gel 15 Gm Gel..Gram.) 15 gm PO Q15M PRN; Protocol PRN Reason: per Hypoglycemia Standing Ord. Hydromorphone HCl (Hydromorphone Hcl 1 Mg/Ml Syringe) 0.5 mg IVPUSH Q4H PRN; Protocol PRN Reason: Pain, Severe (Pain Scale 7-10) Last Admin: 04/01/22 07:25 Dose: 0.5 mg Documented By: CONSUELO Dextrose/Sodium Chloride (D51/2ns) 1,000 mls @ 100 mls/hr IVCONT .Q10H [facility] Last Admin: 03/31/22 23:55 Dose: 100 mls/hr Documented By: BERONICA Insulin Human Lispro (Insulin Lispro 100 Unit/Ml 3 Ml Vial) 0 unit SUBCUT QIDACHS [facility]; Protocol Last Admin: 04/01/22 08:02 Dose: Not Given Documented By: TY Non-Admin Reason: NPO Melatonin (Melatonin 3 Mg Tablet) 6 mg PO BEDTIME PRN PRN Reason: Insomnia Metoprolol Succinate (Metoprolol Succinate Er 50 Mg Tab.Er.24h) 50 mg PO DAILY [facility]; Protocol Last Admin: 04/01/22 07:24 Dose: 50 mg Documented By: CONSUELO Pharmacy Consult (Consult Rx Perform Med Rec) 1 each MISCELLANE ONCE PRN PRN Reason: Consult order Senna (Sennosides 8.6 Mg Tablet) 17.2 mg PO BEDTIME PRN PRN Reason: Constipation Sertraline HCl (Sertraline Hcl 25 Mg Tablet) 75 mg PO DAILY [facility] Last Admin: 04/01/22 07:23 Dose: 75 mg Documented By: CONSUELO Sodium Chloride (0.9 % Sodium Chloride Flush 3 Ml Syringe) 3 ml IVFLUSH QSHIFT [facility] Last Admin: 04/01/22 07:09 Dose: Not Given Documented By: CONSUELO Non-Admin Reason: IV Running Labs CBC & Chem 7: 04/01/22 05:45 04/01/22 05:45 Labs: Laboratory Results - last 24 hr 03/31/22 03/31/22 03/31/22 18:08 18:08 18:31 MCV 80.5 MCH 26.0 L MCHC 32.3 RDW 17.0 H Plt Count 245 MPV 10.7 Immature Gran % (Auto) 0.3 Neut % (Auto) 61.4 Lymph % (Auto) 24.4 [place] % (Auto) 8.2 Eos % (Auto) 4.8 H Baso % (Auto) 0.9 Lymph # (Auto) 2.2 [place] # (Auto) 0.8 Eos # (Auto) 0.4 Baso # (Auto) 0.1 Abs Immat Gran (auto) 0.03 Absolute Neuts (auto) 5.6 Absolute Nucleated RBC 0.000 Nucleated RBC % (auto) 0.0 Anion Gap 16 Estim Creat Clear Calc 115.2 Estimated GFR > 60 POC Glucose Random Glucose 229 H D Calcium 8.7 D Total Bilirubin 0.4 AST 33 ALT 24 Alkaline Phosphatase 114 Total Protein 7.5 Albumin 4.0 D Lipase 283 H Vitamin B12 Urine Color YELLOW Urine Appearance CLOUDY Urine pH 6.0 Ur Specific [place] 1.010 Urine Protein TRACE Urine Glucose (UA) >=1000 H Urine Ketones NEG Urine Blood 2+ H Urine Nitrite POS H Ur Leukocyte Esterase TRACE H Urine RBC 5-9 H Urine WBC 10-14 H Ur Squamous Epith Cells 2+ Urine Bacteria 2+ Urine Mucus TRACE COVID-19 ([facility]) COVID-19 Clin Com 03/31/22 04/01/22 04/01/22 21:43 00:33 01:53 MCV MCH MCHC RDW Plt Count MPV Immature Gran % (Auto) Neut % (Auto) Lymph % (Auto) [place] % (Auto) Eos % (Auto) Baso % (Auto) Lymph # (Auto) [place] # (Auto) Eos # (Auto) Baso # (Auto) Abs Immat Gran (auto) Absolute Neuts (auto) Absolute Nucleated RBC Nucleated RBC % (auto) Anion Gap Estim Creat Clear Calc Estimated GFR POC Glucose 311 H 260 H Random Glucose Calcium Total Bilirubin AST ALT Alkaline Phosphatase Total Protein Albumin Lipase Vitamin B12 Urine Color Urine Appearance Urine pH Ur Specific [place] Urine Protein Urine Glucose (UA) Urine Ketones Urine Blood Urine Nitrite Ur Leukocyte Esterase Urine RBC Urine WBC Ur Squamous Epith Cells Urine Bacteria Urine Mucus COVID-19 ([facility]) Negative COVID-19 Clin Com See Note 08/01/1604/01/22 04/01/22 05:45 05:45 05:45 MCV 81.8 MCH 26.2 L MCHC 32.0 RDW 16.8 H Plt Count 214 MPV 10.7 Immature Gran % (Auto) 0.4 Neut % (Auto) 55.2 Lymph % (Auto) 27.5 [place] % (Auto) 10.2 Eos % (Auto) 5.8 H Baso % (Auto) 0.9 Lymph # (Auto) 2.2 [place] # (Auto) 0.8 Eos # (Auto) 0.5 H Baso # (Auto) 0.1 Abs Immat Gran (auto) 0.03 Absolute Neuts (auto) 4.3 Absolute Nucleated RBC 0.000 Nucleated RBC % (auto) 0.0 Anion Gap 13 Estim Creat Clear Calc 120.9 Estimated GFR > 60 POC Glucose Random Glucose 254 H Calcium 8.5 Total Bilirubin AST ALT Alkaline Phosphatase Total Protein Albumin Lipase 253 H Vitamin B12 549 Urine Color Urine Appearance Urine pH Ur Specific [place] Urine Protein Urine Glucose (UA) Urine Ketones Urine Blood Urine Nitrite Ur Leukocyte Esterase Urine RBC Urine WBC Ur Squamous Epith Cells Urine Bacteria Urine Mucus COVID-19 ([facility]) COVID-19 [facility] 04/01/22 07:25 MCV MCH MCHC RDW Plt Count MPV Immature Gran % (Auto) Neut % (Auto) Lymph % (Auto) [place] % (Auto) Eos % (Auto) Baso % (Auto) Lymph # (Auto) [place] # (Auto) Eos # (Auto) Baso # (Auto) Abs Immat Gran (auto) Absolute Neuts (auto) Absolute Nucleated RBC Nucleated RBC % (auto) Anion Gap Estim Creat Clear Calc Estimated GFR POC Glucose 222 H Random Glucose Calcium Total Bilirubin AST ALT Alkaline Phosphatase Total Protein Albumin Lipase Vitamin B12 Urine Color Urine Appearance Urine pH Ur Specific [place] Urine Protein Urine Glucose (UA) Urine Ketones Urine Blood Urine Nitrite Ur Leukocyte Esterase Urine RBC Urine WBC Ur Squamous Epith Cells Urine Bacteria Urine Mucus COVID-19 ([facility]) COVID-19 [facility] Assessment and Plan (1) Acute pancreatitis: Status: Acute Plan 56-year-old gentleman with past medical history of hypertension, hyperlipidemia, diabetes, coronary artery disease, prior history of pancreatitis of unknown etiology, remote history of alcohol abuse peripheral vascular disease status post right BKA admitted to [facility] with a diagnosis of acute pancreatitis. Acute pancreatitis Abdominal pain is improving no nausea, no vomiting, no fevers no chills No active alcohol use, no illicit drug use, normal LFTs, normal triglyceride of 174 Previously thought pancreatitis was due to lisinopril, recently started on Jardiance ? causing pancreatitis Will discuss with GI for further workup Continue IV fluids , IV analgesics, start clear liquid diet, follow labs HTN. Elevated blood pressure, continue metoprolol, follow BP CAD continue aspirin , Plavix, metoprolol,and atorvastatin, no chest pain, no shortness of breath. DM2 continue Lantus and SSI neuropathy No acute pain continue gabapentin DVT prophylaxis with Lovenox Patient will need continued inpatient hospitalization due to acute pancreatitis, NPO on IV fluids and IV analgesics. Quality Stroke Does the patient have a stroke diagnosis?: No VTE Prior VTE?: No VTE Risk Level:: Medical - moderate - high VTE Device Contraindication: Treatment Not Indicated VTE Drug Contraindication: N/A - Med Ordered
--- NOTE | 2022-04-01 11:10 | MHC.CM.PN ---
Attempted to meet with patient in regards to discharge planning. Patient currently sleeping. No family present. Will attempt to meet again. Continue to monitor for d/c needs.
[2022-04-01] MEDS: Dextrose 5 % and 0.45 % NaCl 1,000 ML 100 ML IVCONT (12:04)
[2022-04-01 13:15] LABS: Glucose, Whole Blood 236 mg/dL (60-115)
[2022-04-01] MEDS: Insulin Lispro 100 UNIT/ML 3 ML VIAL SUBCUT ×3 (13:25→20:41)
[2022-04-01 17:05] LABS: Glucose, Whole Blood 235 mg/dL (60-115)
[2022-04-01] MEDS: Acetaminophen 325 MG TABLET 650 MG PO (20:34)
[2022-04-01] MEDS: Atorvastatin Calcium 20 MG TABLET PO (20:36)
[2022-04-01 20:48] LABS: Glucose, Whole Blood 242 mg/dL (60-115)
--- NOTE | 2022-04-01 21:20 | PC.NURSE ---
IV intermittently has a downstream occlusion so administration of fluids has been delayed.
--- NOTE | 2022-04-01 22:14 | MHC.CM.PN ---
CM attempted to meet with patient. Patient sleeping. Will try again when patient wakes. CM to follow for d/c planning.
[2022-04-01] MEDS: Enoxaparin Sodium 40 MG/0.4 ML SYRINGE SUBCUT (22:17)
[2022-04-02] MEDS: HYDROmorphone HCl 1 MG/ML SYRINGE 0.5 MG IVPUSH ×5 (02:58→21:53)
[2022-04-02] MEDS: Dextrose 5 % and 0.45 % NaCl 1,000 ML 100 ML IVCONT (04:50)
[2022-04-02 06:00] VITALS: BP 173/79; PULSE 64; O2SAT 98
[2022-04-02 07:27] VITALS: BP 173/73; PULSE 64; RESP 16; O2SAT 99
[2022-04-02 07:32] LABS: Glucose, Whole Blood 241 mg/dL (60-115)
[2022-04-02 07:40] LABS: Alanine Aminotransferase 34 U/L (0-40); Albumin Level 3.7 g/dL (3.5-5.0); Alkaline Phosphatase 130 U/L (39-117); Aspartate Amino Transferase 26 U/L (5-37); Bilirubin Direct < 0.2 mg/dL (0.0-0.5); Bilirubin Total 0.4 mg/dL (0.0-1.0); Cholesterol 194 mg/dL; HDL Cholesterol 34 mg/dL; LDL Cholesterol Calculated 123 mg/dl; Lipase 245 U/L (8-78); Total Protein 7.3 g/dL (6.5-8.0); Triglycerides 186 mg/dL
[2022-04-02 08:30] VITALS: BP 156/69; PULSE 66; O2SAT 99
[2022-04-02] MEDS: Metoprolol Succinate ER 50 MG TAB.ER.24H PO (08:31)
[2022-04-02] MEDS: Insulin Lispro 100 UNIT/ML 3 ML VIAL SUBCUT ×4 (08:31→21:53)
[2022-04-02] MEDS: Clopidogrel Bisulfate 75 MG TABLET PO (08:32)
[2022-04-02] MEDS: Gabapentin 600 MG TABLET PO ×3 (08:32→20:14)
[2022-04-02] MEDS: Aspirin 81 MG TAB.CHEW PO (08:32)
[2022-04-02] MEDS: Sertraline HCL 25 MG TABLET 75 MG PO (08:32)
--- NOTE | 2022-04-02 12:14 | P.PNIM_ITS ---
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 Neck no JVD. CVS? regular rate rhythm, Respiratory lungs clear to auscultation, no respiratory distress, no wheeze, no rhonchi. Gastrointestinal abdomen obese, mild mid abdominal tenderness with deep palp ation, bowel sounds audible, no guarding , no rigidity. Extremities right BKA Neuro nonfocal Skin no rash Objective Data Active Medications Acetaminophen (Acetaminophen 325 Mg Tablet) 650 mg PO Q6H PRN PRN Reason: Pain, Mild (Pain Scale 1-3) Last Admin: 04/01/22 20:34 Dose: 650 mg Documented By: VINCENT Aspirin (Aspirin 81 Mg Tab.Chew) 81 mg PO DAILY [facility] Last Admin: 04/02/22 08:32 Dose: 81 mg Documented By: COREY Atorvastatin Calcium (Atorvastatin Calcium 20 Mg Tablet) 20 mg PO BEDTIME [facility] Last Admin: 04/01/22 20:36 Dose: 20 mg Documented By: VINCENT Clopidogrel Bisulfate (Clopidogrel Bisulfate 75 Mg Tablet) 75 mg PO DAILY [facility] Last Admin: 04/02/22 08:32 Dose: 75 mg Documented By: COREY Dextrose (Dextrose 50 % 25 Gm/50 Ml Syringe) 25 gm IVPUSH Q15M PRN; Protocol PRN Reason: per Hypoglycemia Standing Ord. Enoxaparin Sodium (Enoxaparin Sodium 40 Mg/0.4 Ml Syringe) 40 mg SUBCUT Q24H [facility] Last Admin: 04/01/22 22:17 Dose: 40 mg Documented By: HO.NEWMANN Famotidine (Famotidine 20 Mg Tablet) 40 mg PO DAILY PRN PRN Reason: heartburn Gabapentin (Gabapentin 600 Mg Tablet) 600 mg PO TID [facility] Last Admin: 04/02/22 08:32 Dose: 600 mg Documented By: COREY Glucose (Glucose Gel 15 Gm Gel..Gram.) 15 gm PO Q15M PRN; Protocol PRN Reason: per Hypoglycemia Standing Ord. Hydromorphone HCl (Hydromorphone Hcl 1 Mg/Ml Syringe) 0.5 mg IVPUSH Q4H PRN; Protocol PRN Reason: Pain, Severe (Pain Scale 7-10) Last Admin: 04/02/22 08:31 Dose: 0.5 mg Documented By: COREY Dextrose/Sodium Chloride (D51/2ns) 1,000 mls @ 100 mls/hr IVCONT .Q10H [facility] Last Admin: 04/02/22 04:50 Dose: 100 mls/hr Documented By: MARI Insulin Human Lispro (Insulin Lispro 100 Unit/Ml 3 Ml Vial) 0 unit SUBCUT QIDACHS [facility]; Protocol Last Admin: 04/02/22 08:31 Dose: 4 unit Documented By: COREY Melatonin (Melatonin 3 Mg Tablet) 6 mg PO BEDTIME PRN PRN Reason: Insomnia Metoprolol Succinate (Metoprolol Succinate Er 50 Mg Tab.Er.24h) 50 mg PO DAILY [facility]; Protocol Last Admin: 04/02/22 08:31 Dose: 50 mg Documented By: COREY Pharmacy Consult (Consult Rx Perform Med Rec) 1 each MISCELLANE ONCE PRN PRN Reason: Consult order Senna (Sennosides 8.6 Mg Tablet) 17.2 mg PO BEDTIME PRN PRN Reason: Constipation Sertraline HCl (Sertraline Hcl 25 Mg Tablet) 75 mg PO DAILY [facility] Last Admin: 04/02/22 08:32 Dose: 75 mg Documented By: COREY Sodium Chloride (0.9 % Sodium Chloride Flush 3 Ml Syringe) 3 ml IVFLUSH QSHIFT [facility] Last Admin: 04/02/22 08:32 Dose: Not Given Documented By: COREY Non-Admin Reason: IV Running Labs CBC & Chem 7: 04/01/22 05:45 04/01/22 05:45 Labs: Laboratory Results - last 24 hr 04/01/22 04/01/22 04/01/22 13:11 17:00 20:37 POC Glucose 236 H 235 H 242 H Total Bilirubin Direct Bilirubin AST ALT Alkaline Phosphatase Total Protein Albumin Triglycerides Cholesterol LDL Cholesterol, Calc HDL Cholesterol Lipase 04/02/22 04/02/22 05:51 07:28 POC Glucose 241 H Total Bilirubin 0.4 Direct Bilirubin < 0.2 AST 26 ALT 34 Alkaline Phosphatase 130 H Total Protein 7.3 Albumin 3.7 Triglycerides 186 Cholesterol 194 LDL Cholesterol, Calc 123 HDL Cholesterol 34 Lipase 245 H Microbiology Microbiology Results: Microbiology 03/31/22 Unknown Urine Culture - Final Urine clean catch - Clean Catch Midstream Assessment and Plan (1) Acute pancreatitis: Status: Acute Plan 56-year-old gentleman with past medical history of hypertension, hyperlipidemia, diabetes, coronary artery disease, prior history of pancreatitis of unknown etiology, remote history of alcohol abuse peripheral vascular disease status post right BKA admitted to [facility] with a diagnosis of acute pancreatitis. Acute pancreatitis Persistent intermittent Abdominal pain , no nausea, no vomiting, no fevers no chills No active alcohol use, no illicit drug use, normal LFTs, normal triglyceride , status post cholecystectomy for gallstone pancreatitis Previously thought pancreatitis was due to lisinopril, recently started on Jardiance ? causing pancreatitis Lipase remains elevated, repeat LFTs unchanged Continue IV fluids , IV analgesics, and clear liquid diet, follow labs, continue to monitor, obtain further testing if no clinical improvement. HTN. Elevated blood pressure, continue metoprolol, was previously on lisinopril that was discontinued for question of pancreatitis will place on valsartan CAD continue aspirin , Plavix, metoprolol,and atorvastatin, no chest pain, no shortness of breath. DM2 continue Lantus and SSI, blood sugar elevated likely due to IV fluid neuropathy No acute pain continue gabapentin DVT prophylaxis with Lovenox Patient will need continued inpatient hospitalization due to acute pancreatitis, on IV fluids and IV analgesics. Quality Stroke Does the patient have a stroke diagnosis?: No VTE Prior VTE?: No VTE Risk Level:: Medical - moderate - high VTE Device Contraindication: Treatment Not Indicated VTE Drug Contraindication: N/A - Med Ordered
--- NOTE | 2022-04-02 12:49 | PC.NURSE ---
pt POC 370 - TC to MD Toribio regarding insulin coverage, ok to give the 10u lispro, no new orders at this time.
[2022-04-02 12:50] LABS: Glucose, Whole Blood 370 mg/dL (60-115)
[2022-04-02] MEDS: 0.9 % Sodium Chloride 1,000 ML 150 ML IVCONT ×2 (12:53→20:03)
[2022-04-02] MEDS: Acetaminophen 325 MG TABLET 650 MG PO (13:01)
[2022-04-02 13:55] LABS: Glucose, Whole Blood 280 mg/dL (60-115)
[2022-04-02] MEDS: Valsartan 40 MG TABLET PO (14:05)
[2022-04-02 15:56] VITALS: BP 154/65; PULSE 59; RESP 16; TEMP 36.8; O2SAT 98
[2022-04-02 16:00] VITALS: BP 181/84; PULSE 61; RESP 20; TEMP 36.1; O2SAT 98
[2022-04-02 18:45] LABS: Glucose, Whole Blood 202 mg/dL (60-115)
[2022-04-02] MEDS: Atorvastatin Calcium 20 MG TABLET PO (20:14)
[2022-04-02 21:48] LABS: Glucose, Whole Blood 261 mg/dL (60-115)
[2022-04-02] MEDS: Enoxaparin Sodium 40 MG/0.4 ML SYRINGE SUBCUT (21:54)
[2022-04-02] MEDS: Melatonin 3 MG TABLET 6 MG PO (21:59)
[2022-04-03] VITALS: BP 171/74; PULSE 59; RESP 16; TEMP 35.6; O2SAT 97
[2022-04-03] MEDS: HYDROmorphone HCl 1 MG/ML SYRINGE 0.5 MG IVPUSH ×4 (02:12→19:54)
[2022-04-03] MEDS: 0.9 % Sodium Chloride 1,000 ML 150 ML IVCONT ×2 (02:12→08:05)
[2022-04-03 06:41] LABS: Anion Gap 12 (12-20); Blood Urea Nitrogen 6 mg/dL (9-16); Calcium 8.4 mg/dL (8.4-10.2); Carbon Dioxide 28 mmol/L (22-29); Chloride 102 mmol/L (96-108); Creatinine Clr Calc Pharmacy 122.4; Estimated Glomerular Filt Rate > 60; Glucose Random 240 mg/dL (60-115); Lipase 198 U/L (8-78); Potassium 4.2 mmol/L (3.3-5.1); Sodium 138 mmol/L (135-145)
[2022-04-03 07:37] LABS: Glucose, Whole Blood 233 mg/dL (60-115)
[2022-04-03 08:00] VITALS: BP 183/86; PULSE 60; RESP 18; TEMP 36.4; O2SAT 99
[2022-04-03] MEDS: Valsartan 40 MG TABLET PO ×2 (08:06→11:44)
[2022-04-03] MEDS: Insulin Lispro 100 UNIT/ML 3 ML VIAL SUBCUT ×4 (08:06→19:53)
[2022-04-03] MEDS: Clopidogrel Bisulfate 75 MG TABLET PO (08:06)
[2022-04-03] MEDS: Aspirin 81 MG TAB.CHEW PO (08:06)
[2022-04-03] MEDS: Sertraline HCL 25 MG TABLET 75 MG PO (08:07)
[2022-04-03] MEDS: Gabapentin 600 MG TABLET PO ×3 (08:07→19:53)
[2022-04-03 11:35] LABS: Glucose, Whole Blood 205 mg/dL (60-115)
--- NOTE | 2022-04-03 15:14 | HO.PM.IMPN ---
Subjective Subjective Date of Service: 04/03/22 Interval History: Feeling better less abdominal pain, denies nausea vomiting, no fevers, no chills, no other acute issues overnight, tolerated clear liquid diet, feeling hungry. 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 Neck no JVD. CVS? regular rate rhythm, Respiratory lungs clear to auscultation, no respiratory distress, no wheeze, no rhonchi. Gastrointestinal abdomen obese, nontender,bowel sounds audible, no guarding , no rigidity. Extremities right BKA Neuro nonfocal Skin no rash Objective Data Active Medications Acetaminophen (Acetaminophen 325 Mg Tablet) 650 mg PO Q6H PRN PRN Reason: Pain, Mild (Pain Scale 1-3) Last Admin: 04/02/22 13:01 Dose: 650 mg Documented By: COREY Aspirin (Aspirin 81 Mg Tab.Chew) 81 mg PO DAILY [facility] Last Admin: 04/03/22 08:06 Dose: 81 mg Documented By: ELIZABETH Atorvastatin Calcium (Atorvastatin Calcium 20 Mg Tablet) 20 mg PO BEDTIME [facility] Last Admin: 04/02/22 20:14 Dose: 20 mg Documented By: MICHELLE Clopidogrel Bisulfate (Clopidogrel Bisulfate 75 Mg Tablet) 75 mg PO DAILY [facility] Last Admin: 04/03/22 08:06 Dose: 75 mg Documented By: ELIZABETH Dextrose (Dextrose 50 % 25 Gm/50 Ml Syringe) 25 gm IVPUSH Q15M PRN; Protocol PRN Reason: per Hypoglycemia Standing Ord. Enoxaparin Sodium (Enoxaparin Sodium 40 Mg/0.4 Ml Syringe) 40 mg SUBCUT Q24H [facility] Last Admin: 04/02/22 21:54 Dose: 40 mg Documented By: MICHELLE Famotidine (Famotidine 20 Mg Tablet) 40 mg PO DAILY PRN PRN Reason: heartburn Gabapentin (Gabapentin 600 Mg Tablet) 600 mg PO TID [facility] Last Admin: 04/03/22 08:07 Dose: 600 mg Documented By: ELIZABETH Glucose (Glucose Gel 15 Gm Gel..Gram.) 15 gm PO Q15M PRN; Protocol PRN Reason: per Hypoglycemia Standing Ord. Hydromorphone HCl (Hydromorphone Hcl 1 Mg/Ml Syringe) 0.5 mg IVPUSH Q4H PRN; Protocol PRN Reason: Pain, Severe (Pain Scale 7-10) Last Admin: 04/03/22 10:23 Dose: 0.5 mg Documented By: ELIZABETH Sodium Chloride (Ns) 1,000 mls @ 100 mls/hr IVCONT .Q10H [facility] Last Admin: 04/03/22 08:05 Dose: 150 mls/hr Documented By: ELIZABETH Insulin Human Lispro (Insulin Lispro 100 Unit/Ml 3 Ml Vial) 0 unit SUBCUT QIDACHS [facility]; Protocol Last Admin: 04/03/22 11:44 Dose: 4 unit Documented By: ELIZABETH Melatonin (Melatonin 3 Mg Tablet) 6 mg PO BEDTIME PRN PRN Reason: Insomnia Last Admin: 04/02/22 21:59 Dose: 6 mg Documented By: MICHELLE Metoprolol Succinate (Metoprolol Succinate Er 50 Mg Tab.Er.24h) 50 mg PO DAILY [facility]; Protocol Last Admin: 04/03/22 08:51 Dose: Not Given Documented By: ELIZABETH Non-Admin Reason: Decreased Heart Rate Pharmacy Consult (Consult Rx Perform Med Rec) 1 each MISCELLANE ONCE PRN PRN Reason: Consult order Senna (Sennosides 8.6 Mg Tablet) 17.2 mg PO BEDTIME PRN PRN Reason: Constipation Sertraline HCl (Sertraline Hcl 25 Mg Tablet) 75 mg PO DAILY [facility] Last Admin: 04/03/22 08:07 Dose: 75 mg Documented By: ELIZABETH Sodium Chloride (0.9 % Sodium Chloride Flush 3 Ml Syringe) 3 ml IVFLUSH QSHIFT [facility] Last Admin: 04/03/22 07:22 Dose: Not Given Documented By: ELIZABETH Non-Admin Reason: IV Running Valsartan (Valsartan 40 Mg Tablet) 40 mg PO DAILY [facility]; Protocol Last Admin: 04/03/22 08:06 Dose: 40 mg Documented By: ELIZABETH Labs CBC & Chem 7: 04/01/22 05:45 04/03/22 05:49 Labs: Laboratory Results - last 24 hr 04/02/22 04/02/22 04/03/22 18:31 21:41 05:49 Anion Gap 12 Estim Creat Clear Calc 122.4 Estimated GFR > 60 POC Glucose 202 H 261 H Random Glucose 240 H Calcium 8.4 Lipase 198 H 04/03/22 04/03/22 07:16 11:22 Anion Gap Estim Creat Clear Calc Estimated GFR POC Glucose 233 H 205 H Random Glucose Calcium Lipase Assessment and Plan (1) Acute pancreatitis: Status: Acute Plan 56-year-old gentleman with past medical history of hypertension, hyperlipidemia, diabetes, coronary artery disease, prior history of pancreatitis of unknown etiology, remote history of alcohol abuse peripheral vascular disease status post right BKA admitted to [facility] with a diagnosis of acute pancreatitis. Acute pancreatitis Abdominal pain resolved , no nausea, no vomiting, no fevers no chills No active alcohol use, no illicit drug use, normal LFTs, normal triglyceride , status post cholecystectomy for gallstone pancreatitis Previously thought pancreatitis was due to lisinopril, recently started on Jardiance ? causing pancreatitis Lipase trending down, patient tolerating clear liquid diet will advance gradually to regular diet, change IV Dilaudid to by mouth oxycodone, and DC IV fluids if no recurrent pain with advanced diet Follow lipase HTN. Elevated blood pressure, started on valsartan 40 mg yesterday, on metoprolol, home dose, will increase dose of valsartan to 80 and follow BP CAD continue aspirin , Plavix, metoprolol,and atorvastatin, no chest pain, no shortness of breath. DM2 continue SSI, blood sugar elevated will place on Lantus neuropathy No acute pain continue gabapentin DVT prophylaxis with Lovenox Patient will need continued inpatient hospitalization due to acute pancreatitis, on IV fluids and IV analgesics. Quality Stroke Does the patient have a stroke diagnosis?: No VTE Prior VTE?: No VTE Risk Level:: Medical - moderate - high VTE Device Contraindication: Treatment Not Indicated VTE Drug Contraindication: N/A - Med Ordered
[2022-04-03 15:34] VITALS: BP 179/80; PULSE 65; RESP 18; TEMP 36.1; O2SAT 98
[2022-04-03] MEDS: oxyCODONE HCl Immed Release 5 MG TABLET PO (15:34)
[2022-04-03] MEDS: 0.9 % Sodium Chloride Flush 3 ML SYRINGE IVFLUSH ×2 (15:35→19:53)
[2022-04-03 16:04] LABS: Glucose, Whole Blood 224 mg/dL (60-115)
--- NOTE | 2022-04-03 16:19 | MHC.CM.PN ---
PT REPORTS HE LIVES WITH HIS AND DAUGHTER AND HAS DAILY [employer] TO ASSIST WITH SELF CARE PT REPORTS HE IS USING A WHEEL CHAIR NOW, BUT IS WORKING ON GETTING HIS PROSTHETIC LE PT REPORTS HE IS COVID VACCINATED WITH MODERNA AND HAS RECEIVED TWO BOOSTERS PCP: PRISCILA SANCHES HCP ON FILE: DEANDRE [phone] AND DAUGHTER, MELI [phone] CURRENT DC PLAN IS HOME WITH [employer] OF [employer] FAMILY TO TRANSPORT
[2022-04-03 19:53] LABS: Glucose, Whole Blood 284 mg/dL (60-115)
[2022-04-03] MEDS: Atorvastatin Calcium 20 MG TABLET PO (19:53)
[2022-04-03] MEDS: Insulin Glargine,Hum.rec.anlog 100 UNIT/ML 10 ML VIAL 12 UNIT SUBCUT (19:54)
[2022-04-03] MEDS: Melatonin 3 MG TABLET 6 MG PO (19:56)
[2022-04-03] MEDS: Enoxaparin Sodium 40 MG/0.4 ML SYRINGE SUBCUT (23:17)
[2022-04-03 23:24] VITALS: BP 184/78; PULSE 64; RESP 18; TEMP 36.4; O2SAT 98
[2022-04-04] MEDS: amLODIPine Besylate 5 MG TABLET PO (00:02)
[2022-04-04] MEDS: oxyCODONE HCl Immed Release 5 MG TABLET PO ×2 (01:45→11:53)
[2022-04-04 06:21] LABS: Lipase 196 U/L (8-78)
[2022-04-04 07:01] VITALS: BP 198/95; PULSE 74; RESP 18; TEMP 36.2; O2SAT 99
[2022-04-04] MEDS: Insulin Lispro 100 UNIT/ML 3 ML VIAL SUBCUT ×3 (07:28→19:55)
[2022-04-04 07:29] LABS: Glucose, Whole Blood 244 mg/dL (60-115)
[2022-04-04] MEDS: Gabapentin 600 MG TABLET PO ×3 (07:29→19:55)
[2022-04-04] MEDS: 0.9 % Sodium Chloride Flush 3 ML SYRINGE IVFLUSH ×2 (07:29→19:56)
[2022-04-04] MEDS: Clopidogrel Bisulfate 75 MG TABLET PO (07:29)
[2022-04-04] MEDS: Sertraline HCL 25 MG TABLET 75 MG PO (07:29)
[2022-04-04] MEDS: Aspirin 81 MG TAB.CHEW PO (07:29)
[2022-04-04] MEDS: Metoprolol Succinate ER 50 MG TAB.ER.24H PO (07:30)
[2022-04-04] MEDS: Valsartan 80 MG TABLET PO (07:30)
[2022-04-04] MEDS: HYDROmorphone HCl 0.5 MG/0.5 ML SYRINGE IVPUSH ×3 (07:30→20:06)
[2022-04-04 11:38] LABS: Glucose, Whole Blood 292 mg/dL (60-115)
[2022-04-04] MEDS: Acetaminophen 325 MG TABLET 650 MG PO (11:53)
[2022-04-04 16:00] VITALS: BP 150/75; PULSE 77; RESP 17; TEMP 37.1; O2SAT 97
--- NOTE | 2022-04-04 16:15 | HO.PM.IMPN ---
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 Neck no JVD. CVS? regular rate rhythm, Respirator y lungs clear to a uscultation, no re spiratory distress , no wheeze, no rh onchi. Gastrointes tinal abdomen obes e, mid abdomen ten derness,bowel soun ds audible, no gua rding , no rigidit y. Extremities rig ht BKA Neuro nonfo sangeeta Skin no rash Objective Data Active Medications Acetaminophen (Acetaminophen 325 Mg Tablet) 650 mg PO Q6H PRN PRN Reason: Pain, Mild (Pain Scale 1-3) Last Admin: 04/04/22 11:53 Dose: 650 mg Documented By: KAITLIN Aspirin (Aspirin 81 Mg Tab.Chew) 81 mg PO DAILY [facility] Last Admin: 04/04/22 07:29 Dose: 81 mg Documented By: KAITLIN Atorvastatin Calcium (Atorvastatin Calcium 20 Mg Tablet) 20 mg PO BEDTIME [facility] Last Admin: 04/03/22 19:53 Dose: 20 mg Documented By: BRENDON Clopidogrel Bisulfate (Clopidogrel Bisulfate 75 Mg Tablet) 75 mg PO DAILY [facility] Last Admin: 04/04/22 07:29 Dose: 75 mg Documented By: KAITLIN Dextrose (Dextrose 50 % 25 Gm/50 Ml Syringe) 25 gm IVPUSH Q15M PRN; Protocol PRN Reason: per Hypoglycemia Standing Ord. Enoxaparin Sodium (Enoxaparin Sodium 40 Mg/0.4 Ml Syringe) 40 mg SUBCUT Q24H [facility] Last Admin: 04/03/22 23:17 Dose: 40 mg Documented By: BRENDON Famotidine (Famotidine 20 Mg Tablet) 40 mg PO DAILY PRN PRN Reason: heartburn Gabapentin (Gabapentin 600 Mg Tablet) 600 mg PO TID [facility] Last Admin: 04/04/22 14:37 Dose: 600 mg Documented By: KAITLIN Glucose (Glucose Gel 15 Gm Gel..Gram.) 15 gm PO Q15M PRN; Protocol PRN Reason: per Hypoglycemia Standing Ord. Hydromorphone HCl (Hydromorphone Hcl 0.5 Mg/0.5 Ml Syringe) 0.5 mg IVPUSH Q4H PRN; Protocol PRN Reason: Pain, Severe (Pain Scale 7-10) Last Admin: 04/04/22 15:24 Dose: 0.5 mg Documented By: KAITLIN Insulin Glargine (Insulin Glargine,Hum.Rec.Anlog 100 Unit/Ml 10 Ml Vial) 12 unit SUBCUT BEDTIME [facility] Last Admin: 04/03/22 19:54 Dose: 12 unit Documented By: BRENDON Insulin Human Lispro (Insulin Lispro 100 Unit/Ml 3 Ml Vial) 0 unit SUBCUT QIDACHS [facility]; Protocol Last Admin: 04/04/22 11:54 Dose: 6 unit Documented By: KAITLIN Melatonin (Melatonin 3 Mg Tablet) 6 mg PO BEDTIME PRN PRN Reason: Insomnia Last Admin: 04/03/22 19:56 Dose: 6 mg Documented By: BRENDON Metoprolol Succinate (Metoprolol Succinate Er 50 Mg Tab.Er.24h) 50 mg PO DAILY [facility]; Protocol Last Admin: 04/04/22 07:30 Dose: 50 mg Documented By: KAITLIN Oxycodone HCl (Oxycodone Hcl Immed Release 5 Mg Tablet) 5 mg PO Q6H PRN PRN Reason: Pain, Severe (Pain Scale 7-10) Last Admin: 04/04/22 11:53 Dose: 5 mg Documented By: KAITLIN Pharmacy Consult (Consult Rx Perform Med Rec) 1 each MISCELLANE ONCE PRN PRN Reason: Consult order Senna (Sennosides 8.6 Mg Tablet) 17.2 mg PO BEDTIME PRN PRN Reason: Constipation Sertraline HCl (Sertraline Hcl 25 Mg Tablet) 75 mg PO DAILY [facility] Last Admin: 04/04/22 07:29 Dose: 75 mg Documented By: KAITLIN Sodium Chloride (0.9 % Sodium Chloride Flush 3 Ml Syringe) 3 ml IVFLUSH QSHIFT [facility] Last Admin: 04/04/22 16:04 Dose: Not Given Documented By: KAITLIN Non-Admin Reason: Previously Administered Valsartan (Valsartan 80 Mg Tablet) 80 mg PO DAILY [facility]; Protocol Last Admin: 04/04/22 07:30 Dose: 80 mg Documented By: KAITLIN Labs CBC & Chem 7: 04/01/22 05:45 04/03/22 05:49 Labs: Laboratory Results - last 24 hr 04/03/22 04/04/22 04/04/22 19:48 05:13 07:06 POC Glucose 284 H 244 H Lipase 196 H 04/04/22 11:26 POC Glucose 292 H Lipase Assessment and Plan (1) Acute pancreatitis: Status: Acute Plan 56-year-old gentleman with past medical history of hypertension, hyperlipidemia, diabetes, coronary artery disease, prior history of pancreatitis of unknown etiology, remote history of alcohol abuse peripheral vascular disease status post right BKA admitted to [facility] with a diagnosis of acute pancreatitis. Acute pancreatitis Patient had recurrence of abdominal pain overnight, with no associated nausea, no vomiting, no fevers no chills Question related to regular diet No active alcohol use, no illicit drug use, normal LFTs, normal triglyceride , status post cholecystectomy for gallstone pancreatitis Previously thought pancreatitis was due to lisinopril, recently started on Jardiance ? causing pancreatitis Lipase trending down Due to recurrent pain will downgrade diet to NPO, placed back on IV fluids, IV Dilaudid if pain persists by tomorrow will obtain an MRI study case discussed with Dr. May HTN. Elevated blood pressure, started on valsartan 40 mg increased to 80 mg, follow BP closely, continue metoprolol CAD continue aspirin , Plavix, metoprolol,and atorvastatin, no chest pain, no shortness of breath. DM2 continue SSI, blood sugar elevated, will DC Lantus since patient will be NPO neuropathy No acute pain continue gabapentin DVT prophylaxis with Lovenox Patient will need continued inpatient hospitalization due to acute pancreatitis, on IV fluids and IV analgesics. Quality Stroke Does the patient have a stroke diagnosis?: No VTE Prior VTE?: No VTE Risk Level:: Medical - moderate - high VTE Device Contraindication: Treatment Not Indicated VTE Drug Contraindication: N/A - Med Ordered
--- NOTE | 2022-04-04 16:16 | MHC.CM.PN ---
PER ROUNDS DISCUSSION, PATIENT IS NOT YET MEDICALLY CLEARED FOR DISCHARGE TODAY R/T ADVANCING TO FULL LIQUID DIET AND MONITORING OF TOLERANCE. D/C PLAN CONTINUES TO BE HOME [employer]. CM WILL CONTINUE TO FOLLOW FOR D/C NEEDS.
[2022-04-04 16:46] LABS: Glucose, Whole Blood 215 mg/dL (60-115)
[2022-04-04] MEDS: Lactated Ringers 1,000 ML 125 ML IVCONT ×2 (17:34→23:48)
[2022-04-04 19:21] LABS: Glucose, Whole Blood 269 mg/dL (60-115)
[2022-04-04 19:37] VITALS: BP 160/80; PULSE 67; RESP 17; TEMP 36.5; O2SAT 98
[2022-04-04] MEDS: Melatonin 3 MG TABLET 6 MG PO (19:55)
[2022-04-04] MEDS: Atorvastatin Calcium 20 MG TABLET PO (19:55)
[2022-04-04] MEDS: Enoxaparin Sodium 40 MG/0.4 ML SYRINGE SUBCUT (19:56)
[2022-04-04 23:38] VITALS: BP 158/70; PULSE 64; RESP 16; TEMP 36.6; O2SAT 99
[2022-04-05] MEDS: HYDROmorphone HCl 0.5 MG/0.5 ML SYRINGE IVPUSH ×5 (02:17→22:52)
[2022-04-05 03:22] VITALS: BP 163/78; PULSE 62; RESP 18; TEMP 36.2; O2SAT 98
[2022-04-05 06:43] LABS: Alanine Aminotransferase 25 U/L (0-40); Albumin Level 3.6 g/dL (3.5-5.0); Alkaline Phosphatase 127 U/L (39-117); Aspartate Amino Transferase 16 U/L (5-37); Bilirubin Direct < 0.2 mg/dL (0.0-0.5); Bilirubin Total 0.3 mg/dL (0.0-1.0); Lipase 207 U/L (8-78)
[2022-04-05 07:46] LABS: Glucose, Whole Blood 222 mg/dL (60-115)
[2022-04-05 08:00] VITALS: BP 141/79; PULSE 69; RESP 18; TEMP 36.4; O2SAT 99
[2022-04-05] MEDS: Gabapentin 600 MG TABLET PO ×3 (08:01→21:10)
[2022-04-05] MEDS: Clopidogrel Bisulfate 75 MG TABLET PO (08:01)
[2022-04-05] MEDS: Sertraline HCL 25 MG TABLET 75 MG PO (08:01)
[2022-04-05] MEDS: Aspirin 81 MG TAB.CHEW PO (08:01)
[2022-04-05] MEDS: Metoprolol Succinate ER 50 MG TAB.ER.24H PO (08:01)
[2022-04-05] MEDS: Valsartan 80 MG TABLET PO (08:02)
[2022-04-05] MEDS: Lactated Ringers 1,000 ML 125 ML IVCONT ×3 (08:07→22:51)
[2022-04-05] MEDS: 0.9 % Sodium Chloride Flush 3 ML SYRINGE IVFLUSH ×2 (08:13→22:52)
[2022-04-05 11:14] VITALS: BP 164/81; PULSE 65; RESP 16; TEMP 36.4; O2SAT 96
[2022-04-05 11:35] LABS: Glucose, Whole Blood 224 mg/dL (60-115)
[2022-04-05 12:34] LABS: Anion Gap 15 (12-20); Blood Urea Nitrogen 8 mg/dL (9-16); Calcium 8.7 mg/dL (8.4-10.2); Carbon Dioxide 24 mmol/L (22-29); Chloride 101 mmol/L (96-108); Creatinine Clr Calc Pharmacy 130.7; Estimated Glomerular Filt Rate > 60; Glucose Random 236 mg/dL (60-115); Potassium 4.2 mmol/L (3.3-5.1); Sodium 136 mmol/L (135-145)
--- NOTE | 2022-04-05 13:52 | P.PNIM_ITS ---
Subjective Subjective Date of Service: 04/05/22 Interval History: abd pain/pancreatitis Review of Systems still has abdominal pain, feel nauseated even without eating. Denies any chest pain or shortness of breath or fever or chills Physical Exam Vital Signs: Vital Signs: Last Vital Signs Temp 97.6 F 04/05/22 11:14 Pulse 65 04/05/22 11:14 Resp 16 04/05/22 11:14 BP 164/81 H 04/05/22 11:14 Pulse Ox 96 04/05/22 11:14 O2 Del Method 04/05/22 11:14 BMI result Body Mass Index 32.1 Appearance: Alert.? Oriented X3.? not in distress.?. cvs: rrr, [id number] , no murmur res: clear to auscultation ,no rhonchii or wheezing abd: no rebound or guarding ,abd pain (mid)similar to yesterday, bs present. ext pulses present , no cyanosis. neuro: axo3 , nonfocal. Objective Data Active Medications Acetaminophen (Acetaminophen 325 Mg Tablet) 650 mg PO Q6H PRN PRN Reason: Pain, Mild (Pain Scale 1-3) Last Admin: 04/04/22 11:53 Dose: 650 mg Documented By: KAITLIN Aspirin (Aspirin 81 Mg Tab.Chew) 81 mg PO DAILY [facility] Last Admin: 04/05/22 08:01 Dose: 81 mg Documented By: KAITLIN Atorvastatin Calcium (Atorvastatin Calcium 20 Mg Tablet) 20 mg PO BEDTIME [facility] Last Admin: 04/04/22 19:55 Dose: 20 mg Documented By: BRENDON Clopidogrel Bisulfate (Clopidogrel Bisulfate 75 Mg Tablet) 75 mg PO DAILY [facility] Last Admin: 04/05/22 08:01 Dose: 75 mg Documented By: KAITLIN Dextrose (Dextrose 50 % 25 Gm/50 Ml Syringe) 25 gm IVPUSH Q15M PRN; Protocol PRN Reason: per Hypoglycemia Standing Ord. Enoxaparin Sodium (Enoxaparin Sodium 40 Mg/0.4 Ml Syringe) 40 mg SUBCUT Q24H [facility] Last Admin: 04/04/22 19:56 Dose: 40 mg Documented By: BRENDON Famotidine (Famotidine 20 Mg Tablet) 40 mg PO DAILY PRN PRN Reason: heartburn Gabapentin (Gabapentin 600 Mg Tablet) 600 mg PO TID [facility] Last Admin: 04/05/22 08:01 Dose: 600 mg Documented By: KAITLIN Glucose (Glucose Gel 15 Gm Gel..Gram.) 15 gm PO Q15M PRN; Protocol PRN Reason: per Hypoglycemia Standing Ord. Hydromorphone HCl (Hydromorphone Hcl 0.5 Mg/0.5 Ml Syringe) 0.5 mg IVPUSH Q4H PRN; Protocol PRN Reason: Pain, Severe (Pain Scale 7-10) Last Admin: 04/05/22 13:35 Dose: 0.5 mg Documented By: KAITLIN Lactated Ringer's (Lr) 1,000 mls @ 125 mls/hr IVCONT .Q8H [facility] Last Admin: 04/05/22 08:07 Dose: 125 mls/hr Documented By: KAITLIN Insulin Human Lispro (Insulin Lispro 100 Unit/Ml 3 Ml Vial) 0 unit SUBCUT QIDACHS [facility]; Protocol Last Admin: 04/05/22 13:01 Dose: Not Given Documented By: KAITLIN Non-Admin Reason: NPO Melatonin (Melatonin 3 Mg Tablet) 6 mg PO BEDTIME PRN PRN Reason: Insomnia Last Admin: 04/04/22 19:55 Dose: 6 mg Documented By: BRENDON Metoprolol Succinate (Metoprolol Succinate Er 50 Mg Tab.Er.24h) 50 mg PO DAILY [facility]; Protocol Last Admin: 04/05/22 08:01 Dose: 50 mg Documented By: KAITLIN Pharmacy Consult (Consult Rx Perform Med Rec) 1 each MISCELLANE ONCE PRN PRN Reason: Consult order Senna (Sennosides 8.6 Mg Tablet) 17.2 mg PO BEDTIME PRN PRN Reason: Constipation Sertraline HCl (Sertraline Hcl 25 Mg Tablet) 75 mg PO DAILY [facility] Last Admin: 04/05/22 08:01 Dose: 75 mg Documented By: KAITLIN Sodium Chloride (0.9 % Sodium Chloride Flush 3 Ml Syringe) 3 ml IVFLUSH QSHIFT [facility] Last Admin: 04/05/22 08:13 Dose: 3 ml Documented By: KAITLIN Valsartan (Valsartan 80 Mg Tablet) 80 mg PO DAILY [facility]; Protocol Last Admin: 04/05/22 08:02 Dose: 80 mg Documented By: KAITLIN Labs CBC & Chem 7: 04/01/22 05:45 04/05/22 11:45 Labs: Laboratory Results - last 24 hr 04/04/22 04/04/22 04/05/22 15:43 19:00 05:14 Anion Gap Estim Creat Clear Calc Estimated GFR POC Glucose 215 H 269 H Random Glucose Calcium Total Bilirubin 0.3 Direct Bilirubin < 0.2 AST 16 ALT 25 Alkaline Phosphatase 127 H Total Protein 7.0 Albumin 3.6 Lipase 207 H 04/05/22 04/05/22 04/05/22 07:40 11:17 11:45 Anion Gap 15 Estim Creat Clear Calc 130.7 Estimated GFR > 60 POC Glucose 222 H 224 H Random Glucose 236 H Calcium 8.7 Total Bilirubin Direct Bilirubin AST ALT Alkaline Phosphatase Total Protein Albumin Lipase Assessment and Plan (1) Acute pancreatitis: Status: Acute Plan 56-year-old gentleman with past medical history of hypertension, hyperlipidemia, diabetes, coronary artery disease, prior history of pancreatitis of unknown etiology, remote history of alcohol abuse peripheral vascular disease status post right BKA admitted to [facility] with a diagnosis of acute pancreatitis. Acute pancreatitis Patient had recurrence of abdominal pain overnight, with no associated nausea, no vomiting, no fevers no chills Question related to regular diet No active alcohol use, no illicit drug use, normal LFTs, normal triglyceride , status post cholecystectomy for gallstone pancreatitis Previously thought pancreatitis was due to lisinopril, recently started on Jardiance ? causing pancreatitis Lipase trending down Due to recurrent pain will downgrade diet to NPO, placed back on IV fluids, IV Dilaudid -since still pain MRi abd added -r/o fluid collection/necrosis . HTN. Elevated blood pressure, started on valsartan 40 mg increased to 80 mg, follow BP closely, continue metoprolol CAD continue aspirin , Plavix, metoprolol,and atorvastatin, no chest pain, no shortness of breath. DM2 continue SSI, blood sugar elevated, will DC Lantus since patient will be NPO neuropathy No acute pain continue gabapentin DVT prophylaxis with Lovenox Patient will need continued inpatient hospitalization due to acute pancreatitis,? on IV fluids and IV analgesics Quality Stroke Does the patient have a stroke diagnosis?: No VTE Prior VTE?: No VTE Risk Level:: Medical - moderate - high VTE Device Contraindication: Treatment Not Indicated VTE Drug Contraindication: N/A - Med Ordered
[2022-04-05 15:09] VITALS: BP 177/82; PULSE 65; RESP 17; TEMP 36.3; O2SAT 97
[2022-04-05 15:57] LABS: Glucose, Whole Blood 187 mg/dL (60-115)
[2022-04-05 19:38] VITALS: BP 160/80; PULSE 60; RESP 17; TEMP 36.3; O2SAT 99
[2022-04-05 19:47] LABS: Glucose, Whole Blood 190 mg/dL (60-115)
[2022-04-05] MEDS: Enoxaparin Sodium 40 MG/0.4 ML SYRINGE SUBCUT (21:09)
[2022-04-05] MEDS: Atorvastatin Calcium 20 MG TABLET PO (21:10)
[2022-04-05] MEDS: Insulin Lispro 100 UNIT/ML 3 ML VIAL SUBCUT (21:11)
[2022-04-05] MEDS: Melatonin 3 MG TABLET 6 MG PO (23:14)
[2022-04-05 23:22] VITALS: BP 162/72; PULSE 58; RESP 20; TEMP 36; O2SAT 99
[2022-04-06] MEDS: HYDROmorphone HCl 0.5 MG/0.5 ML SYRINGE IVPUSH ×4 (02:52→22:05)
[2022-04-06 03:27] VITALS: BP 162/76; PULSE 55; RESP 17; TEMP 36.1; O2SAT 96
[2022-04-06] MEDS: Lactated Ringers 1,000 ML 125 ML IVCONT (05:57)
[2022-04-06 07:07] VITALS: BP 184/78; PULSE 58; RESP 16; TEMP 36.4; O2SAT 97
[2022-04-06 07:22] LABS: Glucose, Whole Blood 196 mg/dL (60-115)
[2022-04-06] MEDS: Sertraline HCL 25 MG TABLET 75 MG PO (07:46)
[2022-04-06] MEDS: Valsartan 80 MG TABLET PO (07:46)
[2022-04-06] MEDS: Aspirin 81 MG TAB.CHEW PO (07:46)
[2022-04-06] MEDS: Gabapentin 600 MG TABLET PO ×3 (07:46→22:06)
[2022-04-06] MEDS: Clopidogrel Bisulfate 75 MG TABLET PO (07:46)
[2022-04-06] MEDS: Metoprolol Succinate ER 50 MG TAB.ER.24H PO (07:47)
[2022-04-06] MEDS: Insulin Lispro 100 UNIT/ML 3 ML VIAL SUBCUT ×4 (07:47→22:06)
[2022-04-06] MEDS: amLODIPine Besylate 2.5 MG TABLET PO (08:09)
[2022-04-06 11:36] LABS: Glucose, Whole Blood 189 mg/dL (60-115)
--- NOTE | 2022-04-06 11:52 | HO.PM.IMPN ---
Subjective Subjective Date of Service: 04/06/22 Interval History: abd pain Review of Systems abd pain slightlyimproving has nausea encouraged to try Physical Exam Vital Signs: Vital Signs: Last Vital Signs Temp 97.6 F 04/06/22 07:07 Pulse 58 04/06/22 07:07 Resp 16 04/06/22 07:07 BP 184/78 H 04/06/22 07:07 Pulse Ox 97 04/06/22 07:07 O2 Del Method 04/06/22 07:07 BMI result Body Mass Index 32.1 Appearance: Alert.? Oriented X3.? not in distress.?. cvs: rrr, [id number] , no murmur res: clear to auscultation ,no rhonchii or wheezing abd: no rebound or guarding ,abd pain (mid)slightly improving,bs present. ext pulses present , no cyanosis. neuro: axo3 , nonfocal. Objective Data Active Medications Acetaminophen (Acetaminophen 325 Mg Tablet) 650 mg PO Q6H PRN PRN Reason: Pain, Mild (Pain Scale 1-3) Last Admin: 04/04/22 11:53 Dose: 650 mg Documented By: KAITLIN Amlodipine Besylate (Amlodipine Besylate 2.5 Mg Tablet) 2.5 mg PO DAILY [facility]; Protocol Last Admin: 04/06/22 08:09 Dose: 2.5 mg Documented By: EMILIA Aspirin (Aspirin 81 Mg Tab.Chew) 81 mg PO DAILY [facility] Last Admin: 04/06/22 07:46 Dose: 81 mg Documented By: EMILIA Atorvastatin Calcium (Atorvastatin Calcium 20 Mg Tablet) 20 mg PO BEDTIME [facility] Last Admin: 04/05/22 21:10 Dose: 20 mg Documented By: JAROD Clopidogrel Bisulfate (Clopidogrel Bisulfate 75 Mg Tablet) 75 mg PO DAILY [facility] Last Admin: 04/06/22 07:46 Dose: 75 mg Documented By: EMILIA Dextrose (Dextrose 50 % 25 Gm/50 Ml Syringe) 25 gm IVPUSH Q15M PRN; Protocol PRN Reason: per Hypoglycemia Standing Ord. Enoxaparin Sodium (Enoxaparin Sodium 40 Mg/0.4 Ml Syringe) 40 mg SUBCUT Q24H [facility] Last Admin: 04/05/22 21:09 Dose: 40 mg Documented By: JAROD Famotidine (Famotidine 20 Mg Tablet) 40 mg PO DAILY PRN PRN Reason: heartburn Gabapentin (Gabapentin 600 Mg Tablet) 600 mg PO TID [facility] Last Admin: 04/06/22 07:46 Dose: 600 mg Documented By: EMILIA Glucose (Glucose Gel 15 Gm Gel..Gram.) 15 gm PO Q15M PRN; Protocol PRN Reason: per Hypoglycemia Standing Ord. Hydromorphone HCl (Hydromorphone Hcl 0.5 Mg/0.5 Ml Syringe) 0.5 mg IVPUSH Q4H PRN; Protocol PRN Reason: Pain, Severe (Pain Scale 7-10) Last Admin: 04/06/22 02:52 Dose: 0.5 mg Documented By: JAROD Lactated Ringer's (Lr) 1,000 mls @ 80 mls/hr IVCONT .[id number] [facility] Last Admin: 04/06/22 05:57 Dose: 125 mls/hr Documented By: JAROD Insulin Human Lispro (Insulin Lispro 100 Unit/Ml 3 Ml Vial) 0 unit SUBCUT QIDACHS [facility]; Protocol Last Admin: 04/06/22 07:47 Dose: 2 unit Documented By: EMILIA Melatonin (Melatonin 3 Mg Tablet) 6 mg PO BEDTIME PRN PRN Reason: Insomnia Last Admin: 04/05/22 23:14 Dose: 6 mg Documented By: JAROD Metoprolol Succinate (Metoprolol Succinate Er 50 Mg Tab.Er.24h) 50 mg PO DAILY [facility]; Protocol Last Admin: 04/06/22 07:47 Dose: 50 mg Documented By: EMILIA Pharmacy Consult (Consult Rx Perform Med Rec) 1 each MISCELLANE ONCE PRN PRN Reason: Consult order Senna (Sennosides 8.6 Mg Tablet) 17.2 mg PO BEDTIME PRN PRN Reason: Constipation Sertraline HCl (Sertraline Hcl 25 Mg Tablet) 75 mg PO DAILY [facility] Last Admin: 04/06/22 07:46 Dose: 75 mg Documented By: EMILIA Sodium Chloride (0.9 % Sodium Chloride Flush 3 Ml Syringe) [facility] Last Admin: 04/06/22 07:47 Dose: Not Given Documented By: EMILIA Non-Admin Reason: IV Running Valsartan (Valsartan 80 Mg Tablet) 80 mg PO DAILY [facility]; Protocol Last Admin: 04/06/22 07:46 Dose: 80 mg Documented By: EMILIA Labs CBC & Chem 7: 04/01/22 05:45 04/05/22 11:45 Labs: Laboratory Results - last 24 hr 04/05/22 04/05/22 04/05/22 11:45 15:15 19:30 Anion Gap 15 Estim Creat Clear Calc 130.7 Estimated GFR > 60 POC Glucose 187 H 190 H Random Glucose 236 H Calcium 8.7 04/06/22 04/06/22 07:11 11:31 Anion Gap Estim Creat Clear Calc Estimated GFR POC Glucose 196 H 189 H Random Glucose Calcium Assessment and Plan (1) Acute pancreatitis: Status: Acute (2) Essential hypertension: Status: Acute Plan 56-year-old gentleman with past medical history of hypertension, hyperlipidemia, diabetes, coronary artery disease, prior history of pancreatitis of unknown etiology, remote history of alcohol abuse peripheral vascular disease status post right BKA admitted to [facility] with a diagnosis of acute pancreatitis. Acute pancreatitis Patient had recurrence of abdominal pain overnight, with no associated nausea, no vomiting, no fevers no chills Question related to regular diet No active alcohol use, no illicit drug use, normal LFTs, normal triglyceride , status post cholecystectomy for gallstone pancreatitis Previously thought pancreatitis was due to lisinopril, recently started on Jardiance ? causing pancreatitis Lipase trending down MRA reviewed-shows Probable mild pancreatitis of the body of the pancreas.? Abdomen pain somewhat improving-will try clear liquid diet, continue adjusted on IV fluids, IV Dilaudid HTN-uncontrolled. Elevated blood pressure, started on valsartan 40 mg increased to 80 mg, follow BP closely, continue metoprolol,added amlodipine. CAD continue aspirin , Plavix, metoprolol,and atorvastatin, no chest pain, no shortness of breath. DM2 continue SSI, blood sugar elevated, will DC Lantus since patient will be NPO neuropathy No acute pain continue gabapentin DVT prophylaxis with Lovenox inpatient need: inpatient hospitalization due to acute pancreatitis,? on IV fluids and IV analgesics Quality Stroke Does the patient have a stroke diagnosis?: No VTE Prior VTE?: No VTE Risk Level:: Medical - moderate - high VTE Device Contraindication: Treatment Not Indicated VTE Drug Contraindication: N/A - Med Ordered
[2022-04-06 12:00] VITALS: BP 164/80; PULSE 60; RESP 18; TEMP 36.3; O2SAT 98
--- NOTE | 2022-04-06 12:52 | MHC.CM.PN ---
EMR REVIEWED, PT STILL C/O ABD PAIN, NAUSEA, PT HAD BEEN DOWNGRADED TO NPO DIET, PLAN FOR GI FOLLOW-UP, NO D/C PLANNED FOR TODAY, CM WILL CONT TO FOLLOW D/C NEEDS.
[2022-04-06 15:35] VITALS: BP 120/82; PULSE 60; RESP 18; TEMP 36.4; O2SAT 99
[2022-04-06 16:00] LABS: Glucose, Whole Blood 199 mg/dL (60-115)
[2022-04-06 19:12] VITALS: BP 146/76; PULSE 60; RESP 17; TEMP 36.4; O2SAT 100
[2022-04-06 19:28] LABS: Glucose, Whole Blood 279 mg/dL (60-115)
[2022-04-06] MEDS: Atorvastatin Calcium 20 MG TABLET PO (22:06)
[2022-04-06] MEDS: Melatonin 3 MG TABLET 6 MG PO (22:06)
[2022-04-06] MEDS: Enoxaparin Sodium 40 MG/0.4 ML SYRINGE SUBCUT (22:06)
[2022-04-06] MEDS: 0.9 % Sodium Chloride Flush 3 ML SYRINGE IVFLUSH (22:07)
[2022-04-06 23:36] VITALS: BP 152/68; PULSE 62; RESP 17; TEMP 36.2; O2SAT 100
[2022-04-07] VITALS (7 sets, daily range): BP systolic 138–170; BP diastolic 64–110; PULSE 55–70; RESP 16–20; TEMP 36–36.4; O2SAT 97–100
[2022-04-07] MEDS: HYDROmorphone HCl 0.5 MG/0.5 ML SYRINGE IVPUSH ×4 (03:18→18:38)
[2022-04-07 07:29] LABS: Glucose, Whole Blood 198 mg/dL (60-115)
[2022-04-07] MEDS: Aspirin 81 MG TAB.CHEW PO (08:17)
[2022-04-07] MEDS: Clopidogrel Bisulfate 75 MG TABLET PO (08:17)
[2022-04-07] MEDS: Sertraline HCL 25 MG TABLET 75 MG PO (08:17)
[2022-04-07] MEDS: Gabapentin 600 MG TABLET PO ×3 (08:18→20:18)
[2022-04-07] MEDS: Valsartan 80 MG TABLET PO (08:18)
[2022-04-07] MEDS: Insulin Lispro 100 UNIT/ML 3 ML VIAL SUBCUT ×4 (08:19→20:18)
[2022-04-07] MEDS: 0.9 % Sodium Chloride Flush 3 ML SYRINGE IVFLUSH ×3 (08:21→20:25)
[2022-04-07] MEDS: amLODIPine Besylate 5 MG TABLET PO (09:59)
--- NOTE | 2022-04-07 10:05 | MHC.CM.PN ---
EMR REVIEWED, CASE DISCUSSED W/HOSPITALIST, PT CONT'S TO C/O PAIN AND RECEIVE IV DILAUDID, DIET HAS BEEN ADVANCED TO FULL LIQUIDS, NO PLAN FOR D/C TODAY, CM WILL CONT TO MONITOR D/C NEEDS HOWEVER ANTIC PT WILL D/C HOME W/RESUMP OF [employer] AND FAMILY FOR TRANSPORT.
[2022-04-07 11:29] LABS: Glucose, Whole Blood 308 mg/dL (60-115)
--- NOTE | 2022-04-07 13:16 | P.PNIM_ITS ---
Subjective Subjective Date of Service: 04/07/22 Interval History: abd pain Review of Systems Abdominal pain somewhat improving but still similar to yesterday, still feel nauseated. Denies any chest pain or shortness of breath or fever or cough. Physical Exam Vital Signs: Vital Signs: Last Vital Signs Temp 97.6 F 04/07/22 12:00 Pulse 64 04/07/22 12:00 Resp 18 04/07/22 12:00 BP 138/72 04/07/22 12:00 Pulse Ox 98 04/07/22 12:00 O2 Del Method 04/07/22 12:00 BMI result Body Mass Index 32.1 Appearance: Alert.? Oriented X3.? not in distress.?. cvs: rrr, [id number] , no murmur res: clear to auscultation ,no rhonchii or wheezing abd: no rebound or guarding ,abd pain (mid)similar to yesterday,bs present. ext pulses present , no cyanosis. neuro: axo3 , nonfocal. Objective Data Active Medications Acetaminophen (Acetaminophen 325 Mg Tablet) 650 mg PO Q6H PRN PRN Reason: Pain, Mild (Pain Scale 1-3) Last Admin: 04/04/22 11:53 Dose: 650 mg Documented By: KAITLIN Amlodipine Besylate (Amlodipine Besylate 5 Mg Tablet) 5 mg PO DAILY [facility]; Protocol Last Admin: 04/07/22 09:59 Dose: 5 mg Documented By: ELIZABETH Aspirin (Aspirin 81 Mg Tab.Chew) 81 mg PO DAILY [facility] Last Admin: 04/07/22 08:17 Dose: 81 mg Documented By: ELIZABETH Atorvastatin Calcium (Atorvastatin Calcium 20 Mg Tablet) 20 mg PO BEDTIME [facility] Last Admin: 04/06/22 22:06 Dose: 20 mg Documented By: DILCIA Clopidogrel Bisulfate (Clopidogrel Bisulfate 75 Mg Tablet) 75 mg PO DAILY [facility] Last Admin: 04/07/22 08:17 Dose: 75 mg Documented By: ELIZABETH Dextrose (Dextrose 50 % 25 Gm/50 Ml Syringe) 25 gm IVPUSH Q15M PRN; Protocol PRN Reason: per Hypoglycemia Standing Ord. Enoxaparin Sodium (Enoxaparin Sodium 40 Mg/0.4 Ml Syringe) 40 mg SUBCUT Q24H [facility] Last Admin: 08/10/22 22:06 Dose: 40 mg Documented By: DILCIA Famotidine (Famotidine 20 Mg Tablet) 40 mg PO DAILY PRN PRN Reason: heartburn Gabapentin (Gabapentin 600 Mg Tablet) 600 mg PO TID [facility] Last Admin: 04/07/22 08:18 Dose: 600 mg Documented By: ELIZABETH Glucose (Glucose Gel 15 Gm Gel..Gram.) 15 gm PO Q15M PRN; Protocol PRN Reason: per Hypoglycemia Standing Ord. Hydromorphone HCl (Hydromorphone Hcl 0.5 Mg/0.5 Ml Syringe) 0.5 mg IVPUSH Q4H PRN; Protocol PRN Reason: Pain, Severe (Pain Scale 7-10) Last Admin: 04/07/22 07:17 Dose: 0.5 mg Documented By: ELIZABETH Insulin Human Lispro (Insulin Lispro 100 Unit/Ml 3 Ml Vial) 0 unit SUBCUT QIDACHS [facility]; Protocol Last Admin: 04/07/22 11:48 Dose: 8 unit Documented By: ELIZABETH Melatonin (Melatonin 3 Mg Tablet) 6 mg PO BEDTIME PRN PRN Reason: Insomnia Last Admin: 04/06/22 22:06 Dose: 6 mg Documented By: DILCIA Metoprolol Succinate (Metoprolol Succinate Er 50 Mg Tab.Er.24h) 50 mg PO DAILY [facility]; Protocol Last Admin: 04/07/22 09:23 Dose: Not Given Documented By: ELIZABETH Non-Admin Reason: Decreased Heart Rate Pharmacy Consult (Consult Rx Perform Med Rec) 1 each MISCELLANE ONCE PRN PRN Reason: Consult order Senna (Sennosides 8.6 Mg Tablet) 17.2 mg PO BEDTIME PRN PRN Reason: Constipation Sertraline HCl (Sertraline Hcl 25 Mg Tablet) 75 mg PO DAILY [facility] Last Admin: 04/07/22 08:17 Dose: 75 mg Documented By: ELIZABETH Sodium Chloride (0.9 % Sodium Chloride Flush 3 Ml Syringe) 3 ml IVFLUSH QSHIFT [facility] Last Admin: 04/07/22 08:21 Dose: 3 ml Documented By: ELIZABETH Valsartan (Valsartan 80 Mg Tablet) 80 mg PO DAILY [facility]; Protocol Last Admin: 04/07/22 08:18 Dose: 80 mg Documented By: ELIZABETH Labs CBC & Chem 7: 04/01/22 05:45 04/05/22 11:45 Labs: Laboratory Results - last 24 hr 04/06/22 04/06/22 04/07/22 15:36 19:10 07:04 POC Glucose 199 H 279 H 198 H 04/07/22 11:23 POC Glucose 308 H Assessment and Plan (1) Acute pancreatitis: Status: Acute Plan 56-year-old gentleman with past medical history of hypertension, hyperlipidemia, diabetes, coronary artery disease, prior history of pancreatitis of unknown etiology, remote history of alcohol abuse peripheral vascular disease status post right BKA admitted to [facility] with a diagnosis of acute pancreatitis. Acute pancreatitis Patient had recurrence of abdominal pain overnight, with no associated nausea, no vomiting, no fevers no chills Question related to regular diet No active alcohol use, no illicit drug use, normal LFTs, normal triglyceride , status post cholecystectomy for gallstone pancreatitis Previously thought pancreatitis was due to lisinopril, recently started on Jardiance ? causing pancreatitis Lipase trending down MRA reviewed-shows?Probable mild pancreatitis of the body of the pancreas.? Abdomen pain somewhat improving-will add full liquid diet, continue adjusted on IV fluids, IV Dilaudid HTN-uncontrolled. Elevated blood pressure, started on valsartan 40 mg increased to 80 mg, follow BP closely, continue metoprolol,added amlodipine. CAD continue aspirin , Plavix, metoprolol,and atorvastatin, no chest pain, no shortness of breath. DM2 continue SSI, blood sugar elevated, will DC Lantus since patient will be NPO neuropathy No acute pain continue gabapentin DVT prophylaxis with Lovenox inpatient need: inpatient hospitalization due to acute pancreatitis,? on IV fluids and IV analgesics Quality Stroke Does the patient have a stroke diagnosis?: No VTE Prior VTE?: No VTE Risk Level:: Medical - moderate - high VTE Device Contraindication: Treatment Not Indicated VTE Drug Contraindication: N/A - Med Ordered
[2022-04-07 15:18] LABS: Glucose, Whole Blood 283 mg/dL (60-115)
[2022-04-07 19:34] LABS: Glucose, Whole Blood 250 mg/dL (60-115)
[2022-04-07] MEDS: Atorvastatin Calcium 20 MG TABLET PO (20:18)
[2022-04-07] MEDS: Insulin Glargine,Hum.rec.anlog 100 UNIT/ML 10 ML VIAL SUBCUT (20:19)
[2022-04-07] MEDS: Melatonin 3 MG TABLET 6 MG PO (20:23)
[2022-04-07] MEDS: Enoxaparin Sodium 40 MG/0.4 ML SYRINGE SUBCUT (22:52)
[2022-04-08 03:16] VITALS: BP 161/79; PULSE 70; RESP 17; TEMP 36.1; O2SAT 97
[2022-04-08] MEDS: HYDROmorphone HCl 0.5 MG/0.5 ML SYRINGE IVPUSH ×3 (05:27→14:08)
[2022-04-08 06:40] LABS: Anion Gap 17 (12-20); Blood Urea Nitrogen 6 mg/dL (9-16); Calcium 9.5 mg/dL (8.4-10.2); Carbon Dioxide 30 mmol/L (22-29); Chloride 97 mmol/L (96-108); Creatinine Clr Calc Pharmacy 109.9; Estimated Glomerular Filt Rate > 60; Glucose Random 223 mg/dL (60-115); Potassium 4.1 mmol/L (3.3-5.1); Sodium 140 mmol/L (135-145)
[2022-04-08 07:17] VITALS: BP 160/72; PULSE 72; RESP 16; TEMP 36.2; O2SAT 98
[2022-04-08 07:54] LABS: Glucose, Whole Blood 251 mg/dL (60-115)
[2022-04-08] MEDS: Insulin Lispro 100 UNIT/ML 3 ML VIAL SUBCUT ×2 (08:23→12:01)
[2022-04-08] MEDS: 0.9 % Sodium Chloride Flush 3 ML SYRINGE IVFLUSH (08:24)
[2022-04-08] MEDS: Metoprolol Succinate ER 50 MG TAB.ER.24H PO (08:24)
[2022-04-08] MEDS: Sertraline HCL 25 MG TABLET 75 MG PO (08:24)
[2022-04-08] MEDS: Clopidogrel Bisulfate 75 MG TABLET PO (08:25)
[2022-04-08] MEDS: Aspirin 81 MG TAB.CHEW PO (08:25)
[2022-04-08] MEDS: Valsartan 80 MG TABLET PO (08:25)
[2022-04-08] MEDS: Gabapentin 600 MG TABLET PO ×2 (08:25→14:08)
[2022-04-08] MEDS: amLODIPine Besylate 5 MG TABLET PO (08:26)
[2022-04-08 11:15] VITALS: BP 164/77; PULSE 69; RESP 16; TEMP 36.1; O2SAT 98
[2022-04-08 11:28] LABS: Glucose, Whole Blood 256 mg/dL (60-115)
--- NOTE | 2022-04-08 11:30 | P.DS_ITS ---
DS: Providers Provider Date of Service: 04/08/22 Date of admission: 03/31/22 22:45 Primary care physician: Shanta Haney MD Consults: 03/31/22 22:45 Consult to Gastroenterology Routine Consulting Provider: Jaleesa May Reason for consultation: recurrent pancreatitis DS: Diagnosis Discharge Diagnosis (1) Acute pancreatitis: Status: Acute DS: Summary Hospital Course Hospital Course: 56-year-old male with a past medical history of hypertension, hyperlipidemia, diabetes, CAD, erectile dysfunction, history of pancreatitis, remote history of alcohol abuse, peripheral vascular disease, neuropathy, anxiety, depression,? renal calculi; presented to the hospital today with a chief complaint of abdominal pain.? Patient reports that over the past couple days he has been having abdominal pain associated nausea.? Denies any vomiting.? Abdominal pain is located in the epigastrium.? Similar to his prior episodes of pancreatitis.? Hence diff presented to the ER for further evaluation.? Patient reports decreased oral intake.? Denies any chest pain or palpitations.? Denies any fever chills cough.? Denies any diarrhea.? ? Patient denies any recent alcohol use.? Mentions that he used to drink about 20 years ago.? Mentions his prior episodes of pancreatitis was secondary to diabetes medications. Review of all other systems is negative except mentioned above. Hospital course:Patient admitted for acute pancreatitis-started on IV fluids, and analgesics and bowel rest-patient abdominal pain initially did not improve and MRI was done which showed mild pancreatitis.may consider need of follow up imaging outpatiently( please see MRI report below in imaging section) . Gi recomended to avoid empagliflozin can contribute to pancreatitis. Patient tolerating diet and seem improved significantly now and going home. Patient need to follow-up out patiently PCP and also GI for any possible follow- up imaging or workup for above. plan: Encouraged for hydration, avoid empagliflozin. Above management discussed with the patient in detail length him/his daughter Bethany -both understand and in agreement with the above plan, time spent 50 minutes and 50% time spent on counseling. Significant findings: As above. Procedures performed: None. Treatment and response: As above. Complications: None. Time Spent with Patient Time attestation: Total time spent providing and/or coordinating discharge services: Discharge coordination time: Greater than 30 minutes Quality: Safe Use of Opioids Does Pt have an Active Cancer Diagnosis on the Problem List?: No Quality: Stroke Does the patient have a stroke diagnosis?: No Physical Exam Vital Signs: Vital Signs: Last Vital Signs Temp 96.9 F 04/08/22 11:15 Pulse 69 04/08/22 11:15 Resp 16 04/08/22 11:15 BP 164/77 H 04/08/22 11:15 Pulse Ox 98 04/08/22 11:15 O2 Del Method 04/08/22 11:15 BMI result Body Mass Index 32.1 Appearance: Alert.? Oriented X3.? not in distress.?. cvs: rrr, [id number] , no murmur res: clear to auscultation ,no rhonchii or wheezing abd: no rebound or guarding ,nt ,bs present. ext pulses present , no cyanosis. neuro: axo3 , nonfocal. DS: Data Data Completed and Pending Completed studies during hospitalization [Text1]: Procedures Detachment at Right 1st Toe, Complete, Open Approach (08/18/21) Detachment at Right Lower Leg, High, Open Approach (08/18/21) Dilation of Right Ureter with Intraluminal Device, Via Natural or Artificial Opening Endoscopic (06/21/20) Excision of Right Tarsal, Open Approach (08/18/21) Extirpation of Matter from Right Ureter, Via Natural or Artificial Opening Endoscopic (06/21/20) Fluoroscopy of Right Kidney, Ureter and Bladder (06/21/20) Insertion of Infusion Device into Superior Vena Cava, Percutaneous Approach (08/18/21) Labs on day of discharge: Laboratory Results - last 24 hr 04/07/22 04/07/22 04/08/22 14:59 19:18 05:15 Sodium 140 Potassium 4.1 Chloride 97 Carbon Dioxide 30 H Anion Gap 17 BUN 6 L Creatinine 0.88 Estim Creat Clear Calc 109.9 Estimated GFR > 60 POC Glucose 283 H 250 H Random Glucose 223 H Calcium 9.5 D 04/08/22 04/08/22 07:23 11:18 Sodium Potassium Chloride Carbon Dioxide Anion Gap BUN Creatinine Estim Creat Clear Calc Estimated GFR POC Glucose 251 H 256 H Random Glucose Calcium Imaging MRI - abdomen: Radiologist's impression: ITS Impressions Abdomen/Pelvis CT 03/31/22 20:10 IMPRESSION: Edema in the peripancreatic fat consistent with pancreatitis. Fleischner guidelines were followed. Abdomen MRI 04/05/22 17:12 IMPRESSION: Probable mild pancreatitis of the body of the pancreas. No evidence of fluid collection in or adjacent to the pancreas or pancreatic necrosis. Imaging follow-up following treatment recommended. Small left adrenal lipid rich adenoma. Bilateral renal cysts. Discharge Plan Discharge Patient Disposition: Home, Self-Care Discharge Diagnosis: Acute pancreatitis Referrals: Shanta Haney MD [Primary Care Provider] - 1 Week Arnoldo Samson MD [Physician] - 2 Weeks (Follow-up outpatient knee in 2 weeks discussed) Discharge Medications: Continued gabapentin 600 mg tablet 600 mg PO TID Qty: 90 4RF metoprolol succinate 50 mg tablet extended release 24 hr 50 mg PO DAILY Qty: 90 3RF clopidogrel [Plavix] 75 mg tablet 75 mg PO DAILY Qty: 90 1RF atorvastatin 20 mg tablet 1 tab PO BEDTIME ibuprofen 800 mg Tablet 800 mg PO TID PRN (Reason: Pain) insulin glargine [Lantus Solostar U-100 Insulin] 100 unit/mL (3 mL) insulin pen 17 unit subcut BEDTIME aspirin 81 mg tablet,chewable 81 mg PO DAILY Qty: 30 5RF sertraline 50 mg tablet 75 mg PO DAILY 30 Days Qty: 45 4RF famotidine 40 mg tablet 40 mg PO DAILY PRN (Reason: heartburn) Qty: 30 3RF insulin lispro [Humalog KwikPen Insulin] 100 unit/mL insulin pen See Rx Instructions SUBCUT BIDAC Qty: 30 3RF Rx Instructions: subcutaneously 2 times a day before meals; BEFORE BREAKFAST AND DINNER per sliding scale coverage acetaminophen [Tylenol 8 Hour] 650 mg tablet extended release 650 mg PO Q12H PRN (Reason: pain) Qty: 60 0RF Discontinued Jardiance 25 mg tablet 25 mg PO DAILY Qty: 90 1RF Discharge Orders: Discharge Order (Routine); Ordered 04/08/22 Ordered By: Hallie Petersen Diet: Advance to usual diet Activity on Discharge: As tolerated Stand Alone Forms: Patient Portal Discharge page Care Plan Goals: Patient admitted for acute pancreatitis-started on IV fluids, and analgesics and bowel rest-patient abdominal pain initially did not improve and MRI was done which showed mild pancreatitis.Gi recomended to avoid empagliflozin can contribute to pancreatitis. Patient tolerating diet and seem improved significantly now and going home. Patient need to follow-up out patiently PCP and also GI for any possible follow- up imaging or workup for above. Health Concerns: If any new abdominal pain or fever or chills or any new symptoms please go to the nearest emergency room. Follow up with GI outpatient. Plan of Treatment: As above. Assessment: As above. Patient Instructions: Pancreatitis (DC)
--- NOTE | 2022-04-08 14:51 | MHC.CM.PN ---
PT MEDICALLY CLEARED FOR D/C HOME W/RESUMP OF APN HRS, PT TO ARRANGE FAMILY FOR TRANSPORT.
== END 2022-04-08 15:20 | disposition home or self-care (01) | DRG 282 ==
LOC: HO.ED 21:11 → HO.EDOVER 22:57 → HO.S3 04-02 17:15
PROVIDERS: Hospitalist; Internal Medicine Gastroenterology; Admitting Provider Hospitalist; Emergency Provider Student in an Organized Health Care Education/Training Program; PCP Internal Medicine; Visit Provider Internal Medicine
DX: K85.30 Drug induced acute pancreatitis without necrosis or infection (principal); F33.9 Major depressive disorder, recurrent, unspecified; E11.42 Type 2 diabetes mellitus with diabetic polyneuropathy; I25.10 Atherosclerotic heart disease of native coronary artery without angina pectoris; T38.3X5A Adverse effect of insulin and oral hypoglycemic [antidiabetic] drugs, initial encounter; I10 Essential (primary) hypertension; E78.5 Hyperlipidemia, unspecified; F10.11 Alcohol abuse, in remission; Z20.822 Contact with and (suspected) exposure to COVID-19; Z89.511 Acquired absence of right leg below knee; Z87.442 Personal history of urinary calculi; Z79.4 Long term (current) use of insulin; Z79.02 Long term (current) use of antithrombotics/antiplatelets; Z79.82 Long term (current) use of aspirin; Z79.899 Other long term (current) drug therapy
CPT/HCPCS: 36415; 74177; 74183; 80048; 80053; 80061; 80076; 81001; 82607; 82947; 83690; 85025; 87086; 87635; 93005; 96361; 96374; 96375; 99285; A9585; J1170; J1650; J1885; Q9967

== ENCOUNTER 2022-04-09 21:08 | Inpatient (IN) | payer OTHER, SELFPAY ==
--- NOTE | ~2022-04-09 | CT_ITS ---
EXAMINATION: CT ABDOMEN AND PELVIS WITHOUT CONTRAST CLINICAL INFORMATION: Worsening pancreatitis symptoms COMPARISON: 03/31/2022 TECHNIQUE: Multidetector volumetric imaging was performed from the superior aspect of the liver through the pubic symphysis. Sagittal and coronal reformatted images were obtained on the technologist's workstation. This CT examination was performed using dose optimization techniques as appropriate, variously including the following: *Automated exposure control *Adjustment of mA and/or kV according to patient size (this includes techniques or standardized protocols for targeted exams where dose is matched to indication/reason for exam; i.e. extremities or head) *Use of iterative reconstruction technique DLP: 682 mGy-cm FINDINGS: LUNG BASES: Lung bases are clear. Coronary artery calcifications. LIVER, GALLBLADDER, AND BILIARY TREE: The liver is normal in size, shape, and attenuation. No focal hepatic lesion or biliary ductal dilatation is present. Cholecystectomy. PANCREAS: The pancreatic parenchyma is homogenous. There is inflammatory stranding surrounding the pancreatic body. No fluid collection. No ductal dilatation. SPLEEN: Calcified granuloma in the spleen. Normal size. ADRENAL GLANDS: Mild adrenal thickening with no nodularity. KIDNEYS AND URETERS: The kidneys are normal in size, shape, and attenuation. No hydronephrosis or hydroureter. Left lower pole 0.5 cm calculus is 9 cm from the posterior axillary line. BLADDER: Unremarkable. GASTROINTESTINAL TRACT: The stomach is unremarkable. Normal caliber small bowel. No obstruction. Normal appendix. No colonic wall thickening or acute inflammation. Moderate colonic stool burden. ABDOMINAL WALL: No significant hernia is appreciated. LYMPH NODES: Normal. VASCULAR: Normal caliber aorta with moderate atherosclerotic calcification. PELVIC VISCERA: The prostate and seminal vesicles are unremarkable. OSSEOUS STRUCTURES: No acute or suspicious osseous abnormality. Bilateral L5 pars defects. Mild degenerative changes of the spine. CT/CT abdomen pelvis wo con IMPRESSION: Inflammatory stranding surrounding the pancreatic body consistent with acute pancreatitis. No fluid collection. Nonobstructing left lower pole renal calculus. Fleischner guidelines were followed.
[2022-04-09 21:09] VITALS: BP 156/98; PULSE 64; O2SAT 99
[2022-04-09 22:19] VITALS: BP 182/88; PULSE 66; RESP 20; TEMP 36.4; O2SAT 98; BMI 32.5
[2022-04-09 23:17] LABS: Basophils Absolute Auto 0.1 X10*3/uL (0.0-0.2); Basophils Percent Auto 0.7 % (0-2); Eosinophils Absolute Auto 0.5 X10*3/uL (0.0-0.4); Eosinophils Percent Auto 3.9 % (0-4); Hematocrit 45.1 % (42.0-52.0); Hemoglobin 14.8 g/dl (14.0-18.0); Imm Gran Abs Auto 0.04 X10*3/uL (0.00-0.03); Imm Gran Pct Auto 0.3 % (0.0-0.4); Lymphocytes Absolute Auto 2.2 X10*3/uL (1.2-4.9); Lymphocytes Percent Auto 19.2 % (20-40); MANUAL DIFF FLAG NO; Mean Corpuscular HGB Conc 32.8 g/dl (31.0-36.0); Mean Corpuscular Hemoglobin 26.1 pg (27.0-33.0); Mean Corpuscular Volume 79.7 fL (80.0-98.0); Mean Platelet Volume 9.9 fL (9.4-12.4); Neutrophils Absolute Auto 7.7 x10*3/uL (2.0-8.3); Neutrophils Percent Auto 66.9 % (45-73); Platelet Count 265 X10*3/uL (160-400); Red Blood Count 5.66 X10*6/uL (4.60-5.80); Red Cell Distribution Width 15.5 % (11.0-16.0); White Blood Count 11.5 X10*3/uL (4.8-10.8)
[2022-04-09 23:42] LABS: Alanine Aminotransferase 28 U/L (0-40); Albumin Level 4.1 g/dL (3.5-5.0); Alkaline Phosphatase 150 U/L (39-117); Anion Gap 17 (12-20); Aspartate Amino Transferase 20 U/L (5-37); Bilirubin Total 0.4 mg/dL (0.0-1.0); Blood Urea Nitrogen 9 mg/dL (9-16); Carbon Dioxide 23 mmol/L (22-29); Chloride 96 mmol/L (96-108); Creatinine Clr Calc Pharmacy 118.5; Estimated Glomerular Filt Rate > 60; Glucose Random 293 mg/dL (60-115); Lipase 464 U/L (8-78); Potassium 4.2 mmol/L (3.3-5.1); Sodium 132 mmol/L (135-145); Total Protein 8.2 g/dL (6.5-8.0)
[2022-04-10] VITALS (13 sets, daily range): BP systolic 144–192; BP diastolic 65–91; PULSE 57–82; RESP 16–18; TEMP 36.5–37; O2SAT 98–100
--- NOTE | 2022-04-10 00:21 | ED.ABDPAIN ---
HPI - Abdominal Pain General Chief Complaint: Abdominal Pain Stated Complaint: abd pain Time Seen by Provider: 04/10/22 00:10 Source: patient Mode of arrival: ambulatory Limitations: no limitations History of Present Illness HPI narrative: Patient comes to emergency room complaining epigastric and periumbilical pain. Patient was discharged yesterday from the hospital for pancreatitis. Patient states that approximately 10 hours after he was discharged, the abdominal pain restarted along with nausea. Patient states that at home he followed a clear liquid diet. Denies drinking alcohol. Patient denies fever chills Related Data Home Medications Medication Instructions Recorded Confirmed atorvastatin 20 mg tablet 1 tab PO BEDTIME 11/08/21 03/31/22 ibuprofen 800 mg tablet 800 mg PO TID PRN Pain 11/08/21 03/31/22 insulin glargine 100 unit/mL (3 17 unit subcut BEDTIME 03/31/22 03/31/22 mL) subcutaneous pen (Lantus Solostar U-100 Insulin) Previous Rx's Medication Instructions Recorded aspirin 81 mg chewable tablet 81 mg PO DAILY #30 tabs 05/06/21 acetaminophen 650 mg 650 mg PO Q12H PRN pain #60 tabs 06/17/21 tablet,extended release (Tylenol 8 Hour) gabapentin 600 mg tablet 600 mg PO TID #90 tabs 12/15/21 metoprolol succinate 50 mg 50 mg PO DAILY #90 tabs 12/24/21 tablet,extended release 24 hr clopidogrel 75 mg tablet (Plavix) 75 mg PO DAILY #90 tabs 01/31/22 famotidine 40 mg tablet 40 mg PO DAILY PRN heartburn #30 03/03/22 tabs insulin lispro 100 unit/mL See Rx Instructions subcut BIDAC 03/03/22 subcutaneous pen (Humalog KwikPen #30 mL (U-100) Insulin) sertraline 50 mg tablet 75 mg PO DAILY 30 days #45 tabs 03/03/22 docusate sodium 100 mg capsule 100 mg PO DAILY PRN constipation 04/08/22 (Colace) #30 caps hydromorphone 2 mg tablet 2 mg PO Q8H PRN pain (scale score 04/08/22 (Dilaudid) 4-6) #7 tabs Allergies Allergy/AdvReac Type Severity Reaction Status Date / Time No Known Allergies Allergy Verified 03/03/22 16:18 [No Known Allergies*] Review of Systems Review of Systems Constitutional : No Weight loss, No Fever, No Chills, No Night Sweats, No Fatigue, No Malaise ENT/Mouth : No Hearing loss, No Ear Pain, No Nasal Congestion, No Sinus Pain, No Hoarseness, No sore throat, No Rhinorrhea, No Swallowing Difficulty Eyes: No Eye Pain, No Swelling, No Redness, No Foreign Body, No Discharge, No Vision Changes Cardiovascular : No Chest Pain, No SOB, No Dyspnea on Exertion, No Orthopnea, No Edema, No Palpitations Respiratory : No Cough, No Sputum, No Wheezing, No Smoke Exposure, No Dyspnea Gastrointestinal : Complaining of nausea, no vomiting No Diarrhea, No Constipation, complaining of severe epigastric pain in the epigastric and periumbilical area radiating towards the back No Hematochezia, No Melena Genitourinary : no irregular bleeding, No Dysuria, No Urinary Frequency, No Hematuria, No Urinary Incontinence, No Urgency, No Flank Pain, No Urinary Flow Changes, No Hesitancy Musculoskeletal : No joint pain, No Myalgias, No Joint Swelling Skin : No Skin Lesions, No rash Neuro : No Weakness, No Numbness, No Paresthesias, No Loss of Consciousness, No Dizziness, No Headache Psych : No Anxiety/Panic, No Depression, No SI/HI/AH/VH, No Social Issues, Heme/Lymph: No Bruising, No Bleeding,No Lymphadenopathy Endocrine : No Polyuria, No Polydipsia, No Temperature Intolerance PMFSH Past Medical History Medical History Alcohol abuse Amputation stump complication Amputation stump infection Arthritis CAD (coronary artery disease) Chronic pancreatitis Chronic 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 Diabetes mellitus with hyperglycemia, with long-term current use of insulin Diabetes mellitus, with long-term current use of insulin Dyslipidemia Erectile dysfunction Essential hypertension Failure of outpatient treatment Hyperlipidemia Increased BMI Intractable left heel pain Kidney calculus Major depression, recurrent Neuropathy PAD (peripheral artery disease) Type 2 diabetes mellitus with diabetic polyneuropathy Type 2 diabetes mellitus with hyperglycemia Surgical History History of right below knee amputation Hx of heart artery stent Hx of lithotripsy S/P debridement Status post below-knee amputation Status post laparoscopic cholecystectomy Family History Family History Mother [place] (myocardial infarction), Onset Age: 64 Diabetes mellitus HTN (hypertension) Maternal Grandmother Diabetes mellitus Social History Social History Household Members: Spouse Household Members Other:: and daughter Housing: Apartment Do you presently have visiting nurse or other home services: No Alcohol intake: never Patient Tobacco Use Status: Never used Tobacco Tobacco use type: Cigarette Cigarette Packs Per Day: 1 Cigarettes Per Day: 20.0 Years Smoked: 28 e-Cigarette/Vaping Use: Never Used Second Hand Smoke Exposure: Yes Substance Use Type: Marijuana Advance Directives: No Advance Directives Information Provided: Yes Advance Directives Date on File: 04/17/21 service: No Current occupational status: unemployed Cognitive needs: No Hearing needs: No Vision needs: No Physical Exam ED Vital Signs: Vital Signs - 24 hr 04/09/22 22:19 04/10/22 00:33 04/10/22 01:05 Temperature 97.6 F Pulse Rate 66 64 Respiratory Rate 20 16 18 Blood Pressure 182/88 H 177/88 H Pulse Oximetry 98 99 Oxygen Delivery Method Room Air Room Air BMI result Body Mass Index 32.5 Const Other: Appearance: Alert. Oriented X3. Seems very uncomfortable Eyes: Pupils equal, round and reactive to light. ENT: Pharynx normal. Neck: Normal inspection. Neck supple. No lymph nodes noted. No crepitus CVS: Normal heart rate and rhythm. Pulses normal. Normal S1 and S2 Respiratory: No respiratory distress. Breath sounds normal. No Wheezing. No rales Abdomen: Soft , tenderness to palpation in the epigastric and periumbilical area Skin: Skin warm and dry. Normal skin color. Normal skin turgor. Extremities: No lower extremity edema. No Lacerations. No Rash Neuro: Oriented X 3. No motor deficit. No sensory deficit. Moving all extremities. No slurred speech. CN 2 through 12 grossly intact Psych: calm, cooperative, normal affect Course Course Course Narrative: Patient receiving IV fluids, insulin for hyperglycemia, IV morphine and Zofran. We are going to repeat CT scan of the abdomen CT scan shows acute pancreatitis. Patient being admitted, I discussed the patient with Dr. Segun ALEMAN - Abdominal Pain Lab Data Result diagrams: 04/09/22 23:12 08/13/22 23:12 Labs: Lab Results 04/09/22 04/09/22 Range/Units 23:12 23:12 WBC 11.5 H (4.8-10.8) X10*3/uL RBC 5.66 (4.60-5.80) X10*6/uL Hgb 14.8 (14.0-18.0) g/dl Hct 45.1 (42.0-52.0) % MCV 79.7 L (80.0-98.0) fL MCH 26.1 L (27.0-33.0) pg MCHC 32.8 (31.0-36.0) g/dl RDW 15.5 (11.0-16.0) % Plt Count 265 (160-400) X10*3/uL MPV 9.9 (9.4-12.4) fL Immature Gran % (Auto) 0.3 (0.0-0.4) % Neut % (Auto) 66.9 (45-73) % Lymph % (Auto) 19.2 L (20-40) % [place] % (Auto) 9.0 (2-11) % Eos % (Auto) 3.9 (0-4) % Baso % (Auto) 0.7 (0-2) % Lymph # (Auto) 2.2 (1.2-4.9) X10*3/uL [place] # (Auto) 1.0 (0.1-1.2) X10*3/uL Eos # (Auto) 0.5 H (0.0-0.4) X10*3/uL Baso # (Auto) 0.1 (0.0-0.2) X10*3/uL Abs Immat Gran (auto) 0.04 H (0.00-0.03) X10*3/uL Absolute Neuts (auto) 7.7 (2.0-8.3) x10*3/uL Absolute Nucleated RBC 0.000 (0.0-0.012) X10*3/uL Nucleated RBC % (auto) 0.0 (0.0-0.2) /100WBC Sodium 132 L (135-145) mmol/L Potassium 4.2 (3.3-5.1) mmol/L Chloride 96 (96-108) mmol/L Carbon Dioxide 23 (22-29) mmol/L Anion Gap 17 (12-20) BUN 9 (9-16) mg/dL Creatinine 0.82 (0.5-1.4) mg/dL Estim Creat Clear Calc 118.5 Estimated GFR > 60 Random Glucose 293 H (60-115) mg/dL Calcium 9.0 (8.4-10.2) mg/dL Total Bilirubin 0.4 (0.0-1.0) mg/dL AST 20 (5-37) U/L ALT 28 (0-40) U/L Alkaline Phosphatase 150 H (39-117) U/L Total Protein 8.2 H (6.5-8.0) g/dL Albumin 4.1 (3.5-5.0) g/dL Triglycerides 90 mg/dL Lipase 464 H (8-78) U/L Ethyl Alcohol < 10 mg/dL Imaging Data CT scan - abdomen: Radiologist's impression: FINDINGS: LUNG BASES: Lung bases are clear. Coronary artery calcifications.? LIVER, GALLBLADDER, AND BILIARY TREE: The liver is normal in size, shape, and attenuation. No focal hepatic lesion or biliary ductal dilatation is present. Cholecystectomy.? PANCREAS: The pancreatic parenchyma is homogenous. There is inflammatory stranding surrounding the pancreatic body. No fluid collection. No ductal dilatation.? SPLEEN: Calcified granuloma in the spleen. Normal size.? ADRENAL GLANDS: Mild adrenal thickening with no nodularity.? KIDNEYS AND URETERS: The kidneys are normal in size, shape, and attenuation. No hydronephrosis or hydroureter. Left lower pole 0.5 cm calculus is 9 cm from the posterior axillary line. BLADDER: Unremarkable.? GASTROINTESTINAL TRACT: The stomach is unremarkable. Normal caliber small bowel. No obstruction. Normal appendix. No colonic wall thickening or acute inflammation. Moderate colonic stool burden.? ABDOMINAL WALL: No significant hernia is appreciated.? LYMPH NODES: Normal. VASCULAR: Normal caliber aorta with moderate atherosclerotic calcification. PELVIC VISCERA: The prostate and seminal vesicles are unremarkable.? OSSEOUS STRUCTURES: No acute or suspicious osseous abnormality. Bilateral L5 pars defects. Mild degenerative changes of the spine.? CT/CT abdomen pelvis wo con IMPRESSION: Inflammatory stranding surrounding the pancreatic body consistent with acute pancreatitis. No fluid collection. ? Nonobstructing left lower pole renal calculus.? ? Fleischner guidelines were followed. Discharge Plan Discharge Clinical Impression: Acute pancreatitis Patient Disposition: Admitted As Inpatient Prescriptions: No Action gabapentin 600 mg tablet 600 mg PO TID Qty: 90 4RF metoprolol succinate 50 mg tablet extended release 24 hr 50 mg PO DAILY Qty: 90 3RF clopidogrel [Plavix] 75 mg tablet 75 mg PO DAILY Qty: 90 1RF atorvastatin 20 mg tablet 1 tab PO BEDTIME ibuprofen 800 mg Tablet 800 mg PO TID PRN (Reason: Pain) insulin glargine [Lantus Solostar U-100 Insulin] 100 unit/mL (3 mL) insulin pen 17 unit subcut BEDTIME hydromorphone [Dilaudid] 2 mg tablet 2 mg PO Q8H PRN (Reason: pain (scale score 4-6)) Qty: 7 0RF Rx Instructions: Partial Fill upon patient request. docusate sodium [Colace] 100 mg capsule 100 mg PO DAILY PRN (Reason: constipation) Qty: 30 0RF aspirin 81 mg tablet,chewable 81 mg PO DAILY Qty: 30 5RF sertraline 50 mg tablet 75 mg PO DAILY 30 Days Qty: 45 4RF famotidine 40 mg tablet 40 mg PO DAILY PRN (Reason: heartburn) Qty: 30 3RF insulin lispro [Humalog KwikPen Insulin] 100 unit/mL insulin pen See Rx Instructions SUBCUT BIDAC Qty: 30 3RF Rx Instructions: subcutaneously 2 times a day before meals; BEFORE BREAKFAST AND DINNER per sliding scale coverage acetaminophen [Tylenol 8 Hour] 650 mg tablet extended release 650 mg PO Q12H PRN (Reason: pain) Qty: 60 0RF
[2022-04-10 00:26] LABS: Triglycerides 90 mg/dL
[2022-04-10] MEDS: Morphine Sulfate 4 MG/ML CARTRIDGE IVPUSH (00:33)
[2022-04-10] MEDS: ondansetron HCL 4 MG/2 ML VIAL IVPUSH ×2 (00:33→20:43)
[2022-04-10] MEDS: Insulin Regular, Human 100 UNIT/ML 3 ML VIAL IVPUSH (00:34)
[2022-04-10 00:39] LABS: Ethanol < 10 mg/dL
[2022-04-10] MEDS: 0.9 % Sodium Chloride 1,000 ML 999 ML IVCONT (00:40)
[2022-04-10] MEDS: HYDROmorphone HCl 1 MG/ML SYRINGE 0.5 MG IVPUSH ×3 (02:16→09:52)
[2022-04-10] MEDS: Acetaminophen 325 MG TABLET 650 MG PO (02:25)
[2022-04-10] MEDS: Lactated Ringers 1,000 ML 200 ML IVCONT ×4 (03:51→20:42)
[2022-04-10] MEDS: Enoxaparin Sodium 40 MG/0.4 ML SYRINGE SUBCUT (05:38)
[2022-04-10 05:47] LABS: COVID-19 Test Negative (Negative)
[2022-04-10 06:29] LABS: MANUAL DIFF FLAG NO
[2022-04-10 06:34] LABS: Basophils Absolute Auto 0.1 X10*3/uL (0.0-0.2); Basophils Percent Auto 0.8 % (0-2); Eosinophils Absolute Auto 0.4 X10*3/uL (0.0-0.4); Eosinophils Percent Auto 4.8 % (0-4); Hematocrit 42.7 % (42.0-52.0); Hemoglobin 13.8 g/dl (14.0-18.0); Imm Gran Abs Auto 0.04 X10*3/uL (0.00-0.03); Imm Gran Pct Auto 0.5 % (0.0-0.4); Lymphocytes Absolute Auto 2.4 X10*3/uL (1.2-4.9); Lymphocytes Percent Auto 27.3 % (20-40); Mean Corpuscular HGB Conc 32.3 g/dl (31.0-36.0); Mean Corpuscular Hemoglobin 26.1 pg (27.0-33.0); Mean Corpuscular Volume 80.9 fL (80.0-98.0); Mean Platelet Volume 10.3 fL (9.4-12.4); Monocytes Absolute Auto 0.9 X10*3/uL (0.1-1.2); Neutrophils Absolute Auto 4.9 x10*3/uL (2.0-8.3); Neutrophils Percent Auto 56.6 % (45-73); Platelet Count 246 X10*3/uL (160-400); Red Blood Count 5.28 X10*6/uL (4.60-5.80); Red Cell Distribution Width 15.5 % (11.0-16.0); White Blood Count 8.7 X10*3/uL (4.8-10.8)
[2022-04-10 07:30] LABS: Glucose, Whole Blood 181 mg/dL (60-115)
--- NOTE | 2022-04-10 07:30 | PHA.MEDREC ---
Pharmacy Consult ? Medication Reconciliation Pharmacy has completed the medication reconciliation.
--- NOTE | 2022-04-10 07:31 | P.HPHOSP_ITS ---
History of Present Illness Date of Service: 04/10/22 Chief Complaint: Epigastric pain This is a 56-year-old male with past medical history of hypertension, hyperlipidemia, diabetes, CAD, history of pancreatitis returns to the hospital after being discharged the same day with severe abdominal pain. Patient reports that when he was discharged in a.m. he was feeling better, was able to eat something at home with no significant pain but a couple hours later developed epigastric pain radiating to the back the pain is 10/10, associated with nausea, no vomiting, no diarrhea or constipation. No urinary symptoms. He reports not drinking alcohol at home today. On arrival to the ED patient hemodynamically stable with elevated blood pressure otherwise vitals unremarkable Labs are significant for WBC count of 11.5, sodium of 132, lipase of 464, CT of the abdomen shows inflammatory stranding surrounding the pancreatic body consistent with acute pancreatitis no fluid collection Patient will be admitted for further management Review of Systems Review of Systems: Yes all other systems are reviewed and are negative [facility] Medical History Alcohol abuse Amputation stump complication Amputation stump infection Arthritis CAD (coronary artery disease) Chronic pancreatitis Chronic 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 Diabetes mellitus with hyperglycemia, with long-term current use of insulin Diabetes mellitus, with long-term current use of insulin Dyslipidemia Erectile dysfunction Essential hypertension Failure of outpatient treatment Hyperlipidemia Increased BMI Intractable left heel pain Kidney calculus Major depression, recurrent Neuropathy PAD (peripheral artery disease) Type 2 diabetes mellitus with diabetic polyneuropathy Type 2 diabetes mellitus with hyperglycemia Family History Mother [place] (myocardial infarction), Onset Age: 64 Diabetes mellitus HTN (hypertension) Maternal Grandmother Diabetes mellitus Surgical History History of right below knee amputation Hx of heart artery stent Hx of lithotripsy S/P debridement Status post below-knee amputation Status post laparoscopic cholecystectomy Social History Household Members: Spouse Household Members Other:: and daughter Housing: Apartment Do you presently have visiting nurse or other home services: No Alcohol intake: never Patient Tobacco Use Status: Never used Tobacco Tobacco use type: Cigarette Cigarette Packs Per Day: 1 Cigarettes Per Day: 20.0 Years Smoked: 28 e-Cigarette/Vaping Use: Never Used Second Hand Smoke Exposure: Yes Substance Use Type: Marijuana Advance Directives: No Advance Directives Information Provided: Yes Advance Directives Date on File: 04/17/21 service: No Current occupational status: unemployed Cognitive needs: No Hearing needs: No Vision needs: No Meds Allergies Allergy/AdvReac Type Severity Reaction Status Date / Time No Known Allergies Allergy Verified 03/03/22 16:18 [No Known Allergies*] Active Medications: Current Medications Acetaminophen (Acetaminophen 325 Mg Tablet) 650 mg PO Q6H PRN PRN Reason: Pain, Mild (Pain Scale 1-3) Last Admin: 04/10/22 02:25 Dose: 650 mg Enoxaparin Sodium (Enoxaparin Sodium 40 Mg/0.4 Ml Syringe) 40 mg SUBCUT Q24H [facility] Last Admin: 04/10/22 05:38 Dose: 40 mg Hydromorphone HCl (Hydromorphone Hcl 1 Mg/Ml Syringe) 0.5 mg IVPUSH Q4H PRN; Protocol PRN Reason: Pain, Severe (Pain Scale 7-10) Last Admin: 04/10/22 05:43 Dose: 0.5 mg Lactated Ringer's (Lr) 1,000 mls @ 200 mls/hr IVCONT .Q5H [facility] Last Admin: 04/10/22 03:51 Dose: 200 mls/hr Ondansetron HCl (Ondansetron Hcl 4 Mg/2 Ml Vial) 4 mg IVPUSH Q8H PRN PRN Reason: Nausea and Vomiting Sodium Chloride (0.9 % Sodium Chloride Flush 3 Ml Syringe) 3 ml IVFLUSH QSHIFT [facility] Home Medications Medication Instructions Recorded Confirmed Last Taken Type clopidogrel 75 mg tablet 1 tab DAILY 04/10/22 Unknown History empagliflozin 25 mg tablet 1 tab DAILY 04/10/22 04/10/22 Unknown History (Jard[facility]) famotidine 40 mg tablet 1 tab PO DAILY PRN heartburn 04/10/22 04/10/22 Unknown History insulin glargine 100 unit/mL (3 26 unit subcut BEDTIME 04/10/22 04/10/22 Unknown History mL) subcutaneous pen (Lantus Solostar U-100 Insulin) insulin lispro 100 unit/mL 17 unit subcut BIDAC 04/10/22 04/10/22 Unknown History subcutaneous pen metoprolol succinate 50 mg 1 tab PO DAILY 04/10/22 04/10/22 Unknown History tablet,extended release 24 hr sertraline 50 mg tablet 1.5 tab PO DAILY 04/10/22 04/10/22 Unknown History Physical Exam Vital Signs and Narrative: Vital Signs: Last Vital Signs Temp 97.7 F 04/10/22 07:21 Pulse 58 04/10/22 07:21 Resp 18 04/10/22 07:21 BP 178/79 H 04/10/22 07:21 Pulse Ox 98 04/10/22 07:21 O2 Del Method 04/10/22 07:21 BMI result Body Mass Index 32.5 Const: General: cooperative and no acute distress Orientation/consciousness: patient oriented x3 Eyes: General: appearance normal, both eyes and all related structures Resp: Effort & Inspection: normal respiratory effort Auscultation: clear to auscultation bilaterally Cardio: Rate: regular rate Rhythm: regular rhythm GI: Other: Epigastric tenderness, some rebound and guarding Palpation (GI): Soft to palpation Auscultation: normal bowel sounds Skin: General skin exam: no rashes or lesions noted Neuro: General: patient oriented x3 Cognition (Neuro): normal cognition Extrem: General: Yes normal to inspection and Yes no pedal edema Results Labs CBC and Chem 7: 04/10/22 05:36 04/09/22 23:12 Labs: Laboratory Results - last 24 hr 04/09/22 04/09/22 04/10/22 23:12 23:12 05:26 MCV 79.7 L MCH 26.1 L MCHC 32.8 RDW 15.5 Plt Count 265 MPV 9.9 Immature Gran % (Auto) 0.3 Neut % (Auto) 66.9 Lymph % (Auto) 19.2 L [place] % (Auto) 9.0 Eos % (Auto) 3.9 Baso % (Auto) 0.7 Lymph # (Auto) 2.2 [place] # (Auto) 1.0 Eos # (Auto) 0.5 H Baso # (Auto) 0.1 Abs Immat Gran (auto) 0.04 H Absolute Neuts (auto) 7.7 Absolute Nucleated RBC 0.000 Nucleated RBC % (auto) 0.0 Anion Gap 17 Estim Creat Clear Calc 118.5 Estimated GFR > 60 POC Glucose Random Glucose 293 H Calcium 9.0 Total Bilirubin 0.4 AST 20 ALT 28 Alkaline Phosphatase 150 H Total Protein 8.2 H Albumin 4.1 Triglycerides 90 Lipase 464 H Ethyl Alcohol < 10 COVID-19 ([facility]) Negative COVID-19 Clin Com See Note 04/10/22 04/10/22 05:36 07:20 MCV 80.9 MCH 26.1 L MCHC 32.3 RDW 15.5 Plt Count 246 MPV 10.3 Immature Gran % (Auto) 0.5 H Neut % (Auto) 56.6 Lymph % (Auto) 27.3 [place] % (Auto) 10.0 Eos % (Auto) 4.8 H Baso % (Auto) 0.8 Lymph # (Auto) 2.4 [place] # (Auto) 0.9 Eos # (Auto) 0.4 Baso # (Auto) 0.1 Abs Immat Gran (auto) 0.04 H Absolute Neuts (auto) 4.9 Absolute Nucleated RBC 0.000 Nucleated RBC % (auto) 0.0 Anion Gap Estim Creat Clear Calc Estimated GFR POC Glucose 181 H Random Glucose Calcium Total Bilirubin AST ALT Alkaline Phosphatase Total Protein Albumin Triglycerides Lipase Ethyl Alcohol COVID-19 ([facility]) COVID-19 Clin Com Imaging Radiologist's Impressions: Impressions Abdomen/Pelvis CT 04/10/22 01:00 IMPRESSION: Inflammatory stranding surrounding the pancreatic body consistent with acute pancreatitis. No fluid collection. Nonobstructing left lower pole renal calculus. Fleischner guidelines were followed. Assessment and Plan (1) Acute pancreatitis: Status: Acute Plan 56-year-old male with past medical history of pancreatitis presents to the hospital with abdominal pain found to have recurrent acute pancreatitis # acute pancreatitis - has elevated lipase, typical epigastric pain as well as CT evidence of acute pancreatitis - will treat with aggressive IV fluid, pain control - may need GI evaluation given his recurrence specially after being discharged the same day # diabetes - continue home insulin - low-dose sinus scale insulin - diabetic diet DVT prophylaxis: Lovenox Given acute pancreatitis and need for IV fluids patient will require minimum 2 night hospital stay for further management and evaluation Quality Stroke Does the patient have a stroke diagnosis?: No VTE Prior VTE?: No VTE Risk Level:: Medical - moderate - high VTE Device Contraindication: Treatment Not Indicated VTE Drug Contraindication: N/A - Med Ordered
[2022-04-10 08:51] LABS: Anion Gap 15 (12-20); Blood Urea Nitrogen 7 mg/dL (9-16); Calcium 8.4 mg/dL (8.4-10.2); Carbon Dioxide 27 mmol/L (22-29); Chloride 99 mmol/L (96-108); Creatinine Clr Calc Pharmacy 129.6; Estimated Glomerular Filt Rate > 60; Glucose Random 202 mg/dL (60-115); Potassium 3.9 mmol/L (3.3-5.1); Sodium 137 mmol/L (135-145)
--- NOTE | 2022-04-10 09:22 | MHC.CM.PN ---
PT REPORTS HE LIVES WITH HIS AND DAUGHTER AND REQUIRES ASSISTANCE WITH CARE PT REPORTS HE HAS CROWN POUNCER SERVICES DAILY FOR ADL'S AND NO OTHER SERVICES PT USES A WHEEL CHAIR AND SAYS HE WILL BE GETTING A LE PROSTHETIC PT REPORTS HE IS COVID VACCINATED WITH MODERNA PT HAS A HPC ON FILE PCP: PRISCILA SANCHES CURRENT DC PLAN IS HOME WITH RESUMPTION OF SERVICES FAMILY TO TRANSPORT
--- NOTE | 2022-04-10 09:25 | PHA.MEDREC ---
Pharmacy Consult ? Medication Reconciliation Pharmacy has completed the medication reconciliation. SPOKE WITH PT, NO LONGER ON JARDIANCE
[2022-04-10] MEDS: Sertraline HCL 25 MG TABLET 75 MG PO (09:54)
[2022-04-10] MEDS: Metoprolol Succinate ER 50 MG TAB.ER.24H PO (09:54)
[2022-04-10 12:22] LABS: Glucose, Whole Blood 215 mg/dL (60-115)
[2022-04-10] MEDS: HYDROmorphone HCl 1 MG/ML SYRINGE IVPUSH ×3 (13:12→21:08)
[2022-04-10] MEDS: Clopidogrel Bisulfate 75 MG TABLET PO (13:12)
[2022-04-10] MEDS: Aspirin 81 MG TAB.CHEW PO (13:12)
--- NOTE | 2022-04-10 16:08 | PM.EVENT ---
Event Note Date of Service: 04/10/22 Event Note: Patient already seen and examined by hospital team earlier. Seen still abdominal pain and also nausea Physical exam: Unchanged from H&P Assessment plan: Could not in H&P note Acute pancreatitis Keep NPO, hydration IV, IV pain medication, GI evaluation morning. Elevated blood pressure possibly related to pain because responds well to the pain medication, continue home blood pressure medications also.
[2022-04-10 17:09] LABS: Glucose, Whole Blood 194 mg/dL (60-115)
[2022-04-10 20:38] LABS: Glucose, Whole Blood 222 mg/dL (60-115)
[2022-04-10] MEDS: Insulin Glargine,Hum.rec.anlog 100 UNIT/ML 10 ML VIAL 17 UNIT SUBCUT (20:44)
--- NOTE | 2022-04-10 20:45 | PC.NURSE ---
Pt.'s BP elevated 197/81 d/t severe abd. pain, not eligible to receive PRN pain meds. yet, notified provider MD Segun for one-time order to manage pain. Awaiting new orders at this time
--- NOTE | 2022-04-10 21:04 | PC.NURSE ---
BP 200/87, provider notified, awaiting pain meds.
--- NOTE | 2022-04-10 21:05 | PC.NURSE ---
OK per Gary Cast MD to give PRN Dilaudid early to treat pain and elevated BP
[2022-04-11] VITALS (9 sets, daily range): BP systolic 132–196; BP diastolic 55–103; PULSE 37–75; RESP 14–20; TEMP 36.6; O2SAT 97–100
[2022-04-11] MEDS: Morphine Sulfate 4 MG/ML CARTRIDGE IVPUSH ×2 (00:35→16:31)
[2022-04-11] MEDS: HYDROmorphone HCl 1 MG/ML SYRINGE IVPUSH ×4 (01:47→19:38)
[2022-04-11] MEDS: Lactated Ringers 1,000 ML 200 ML IVCONT (03:07)
--- NOTE | 2022-04-11 08:30 | PC.NURSE ---
Addendum entered by Lauren Vivas LPN 04/11/22 08:53: patient right below ambute . uses wheel chair to ambulate . Original Note: patient a/ox4 / pearrla , blood shot eyes . heart rate regular at . lungs clear . skin warm dry and dusky . abdomen soft . non distended . positive bowel sounds in all quadrants . patient reports rebound tenderness in lower abdomen and flank pain . pain reported 9/10 . patient reported nausea also . mediated as ordered . patient aware of plan of care .
--- NOTE | 2022-04-11 08:36 | PC.NURSE ---
hospitalist at bedside . patient aware of consult for GI .
[2022-04-11] MEDS: Clopidogrel Bisulfate 75 MG TABLET PO (08:43)
[2022-04-11] MEDS: Sertraline HCL 25 MG TABLET 75 MG PO (08:43)
[2022-04-11] MEDS: Aspirin 81 MG TAB.CHEW PO (08:43)
[2022-04-11] MEDS: Enoxaparin Sodium 40 MG/0.4 ML SYRINGE SUBCUT (08:44)
[2022-04-11] MEDS: ondansetron HCL 4 MG/2 ML VIAL IVPUSH ×2 (08:44→16:31)
[2022-04-11] MEDS: 0.9 % Sodium Chloride Flush 3 ML SYRINGE IVFLUSH (09:11)
[2022-04-11] MEDS: Metoprolol Succinate ER 100 MG TAB.ER.24H PO (10:47)
[2022-04-11] MEDS: Lactated Ringers 1,000 ML 125 ML IVCONT ×2 (11:27→20:38)
--- NOTE | 2022-04-11 11:28 | P.CNGI_ITS ---
History of Present Illness Data of Consult Service Date: 04/11/22 Requesting physician: Hallie Petersen Primary Care Provider: Shanta Haney MD HPI Reason for consult: Recurrent pancreatitis This is a 56-year-old gentleman with medical history of recurrent pancreatitis, status post cholecystectomy 2009, coronary artery disease, type 2 diabetes with micro and macrovascular complications including right BKA, who is currently admitted to the hospital for acute interstitial pancreatitis. Gastroenterology has been consulted for evaluation and management of recurrent pancreatitis. History obtained from the patient who states that he had his 1st episode of pancreatitis almost 30 years ago in [place]. Since then he recalls getting admitted at least 8-10 times in the hospital for pancreatitis. This was initially thought to be due to alcohol, he quit drinking 20 years ago. Also underwent a laparoscopic cholecystectomy for the same reason in 2009 according to the patient. He denies any history of recurrent pancreatitis or pancreatic cancer in any of his family specifically any of the first-degree relatives. This admission, he in fact presented last week for mild acute interstitial pancreatitis. Patient was discharged Monday morning after his pain had imp roved and he was able to take liquids without any difficulty, but had to return later that night for recurrent pain and inability to tolerate p.o. describes the pain as severe, localized to his epigastrium without any radiation, associated with severe nausea but no vomiting. No changes in bowel habits. Denies any fevers, chills, night sweats. He has noted some mild weight loss in the past 1 month. Labs as reviewed below. Of note, while he does have elevated lipase >400, this is with modest elevation of alkaline phosphatase and normal transaminases and bilirubin. Serum calcium and triglycerides are normal. Alcohol level was undetectable. Non contrasted CT scan shows inflammation in the body of the pancreas. He did have an MRI abdomen at the last admission and pancreatic parenchyma and duct were noted to be normal, however it was in the background mild pancreatitis. Review of Systems Review of Systems: 10 point ROS obtained and is negative except as mentioned in HPI. [facility] Past Medical History Medical History Alcohol abuse Amputation stump complication Amputation stump infection Arthritis CAD (coronary artery disease) Chronic pancreatitis Chronic 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 Diabetes mellitus with hyperglycemia, with long-term current use of insulin Diabetes mellitus, with long-term current use of insulin Dyslipidemia Erectile dysfunction Essential hypertension Failure of outpatient treatment Hyperlipidemia Increased BMI Intractable left heel pain Kidney calculus Major depression, recurrent Neuropathy PAD (peripheral artery disease) Type 2 diabetes mellitus with diabetic polyneuropathy Type 2 diabetes mellitus with hyperglycemia Family History Family History Mother [place] (myocardial infarction), Onset Age: 64 Diabetes mellitus HTN (hypertension) Maternal Grandmother Diabetes mellitus Pertinent family history: Colon cancer in parent/sibling diagnosed at age Hx of gastric or panc biliary cancer Hx of pancreatitis Surgical History Surgical History History of right below knee amputation Hx of heart artery stent Hx of lithotripsy S/P debridement Status post below-knee amputation Status post laparoscopic cholecystectomy Social History Social History Household Members: Spouse Household Members Other:: and daughter Housing: Apartment Do you presently have visiting nurse or other home services: No Alcohol intake: never Patient Tobacco Use Status: Never used Tobacco Tobacco use type: Cigarette Cigarette Packs Per Day: 1 Cigarettes Per Day: 20.0 Years Smoked: 28 e-Cigarette/Vaping Use: Never Used Second Hand Smoke Exposure: Yes Substance Use Type: Marijuana Advance Directives: No Advance Directives Information Provided: Yes Advance Directives Date on File: 04/17/21 service: No Current occupational status: unemployed and disabled Cognitive needs: No Hearing needs: No Vision needs: No Meds Allergies Allergy/AdvReac Type Severity Reaction Status Date / Time No Known Allergies Allergy Verified 03/03/22 16:18 [No Known Allergies*] Active Medications: Current Medications Acetaminophen (Acetaminophen 325 Mg Tablet) 650 mg PO Q6H PRN PRN Reason: Pain, Mild (Pain Scale 1-3) Last Admin: 04/10/22 02:25 Dose: 650 mg Aspirin (Aspirin 81 Mg Tab.Chew) 81 mg PO DAILY [facility] Last Admin: 04/11/22 08:43 Dose: 81 mg Clopidogrel Bisulfate (Clopidogrel Bisulfate 75 Mg Tablet) 75 mg PO DAILY [facility] Last Admin: 04/11/22 08:43 Dose: 75 mg Enoxaparin Sodium (Enoxaparin Sodium 40 Mg/0.4 Ml Syringe) 40 mg SUBCUT Q24H [facility] Last Admin: 04/11/22 08:44 Dose: 40 mg Famotidine (Famotidine 20 Mg Tablet) 40 mg PO DAILY PRN PRN Reason: heartburn Hydromorphone HCl (Hydromorphone Hcl 1 Mg/Ml Syringe) 1 mg IVPUSH Q4H PRN; Protocol PRN Reason: Pain, Severe (Pain Scale 7-10) Last Admin: 04/11/22 08:44 Dose: 1 mg Lactated Ringer's (Lr) 1,000 mls @ 125 mls/hr IVCONT .Q8H [facility] Last Infusion: 04/11/22 11:26 Dose: Infused Insulin Glargine (Insulin Glargine,Hum.Rec.Anlog 100 Unit/Ml 10 Ml Vial) 17 unit SUBCUT BEDTIME [facility] Last Admin: 04/10/22 20:44 Dose: 17 unit Insulin Human Lispro (Insulin Lispro 100 Unit/Ml 3 Ml Vial) 0 unit SUBCUT TIDAC [facility]; Protocol Last Admin: 04/11/22 08:54 Dose: Not Given Metoprolol Succinate (Metoprolol Succinate Er 100 Mg Tab.Er.24h) 100 mg PO DAILY [facility]; Protocol Last Admin: 04/11/22 10:47 Dose: 100 mg Morphine Sulfate (Morphine Sulfate 4 Mg/Ml Cartridge) 4 mg IVPUSH Q4H PRN; Protocol PRN Reason: Pain, Severe (Pain Scale 7-10) Last Admin: 04/11/22 00:35 Dose: 4 mg Ondansetron HCl (Ondansetron Hcl 4 Mg/2 Ml Vial) 4 mg IVPUSH Q8H PRN PRN Reason: Nausea and Vomiting Last Admin: 04/11/22 08:44 Dose: 4 mg Sertraline HCl (Sertraline Hcl 25 Mg Tablet) 75 mg PO DAILY [facility] Last Admin: 04/11/22 08:43 Dose: 75 mg Sodium Chloride (0.9 % Sodium Chloride Flush 3 Ml Syringe) [facility] Last Admin: 04/11/22 09:11 Dose: 3 ml Home Medications Medication Instructions Recorded Confirmed Last Taken Type acetaminophen 500 mg tablet 1,000 mg PO BID PRN Pain, Mild 04/10/22 04/10/22 Unknown History aspirin 81 mg chewable tablet 81 mg PO DAILY 04/10/22 04/10/22 04/09/22 History clopidogrel 75 mg tablet 75 mg PO DAILY 04/10/22 04/10/22 04/09/22 History famotidine 40 mg tablet 40 mg PO DAILY PRN heartburn 04/10/22 04/10/22 Unknown History insulin glargine 100 unit/mL (3 17 unit subcut BEDTIME 04/10/22 04/10/22 04/09/22 History mL) subcutaneous pen (Lantus Solostar U-100 Insulin) insulin lispro 100 unit/mL See Protocol subcut TIDAC 04/10/22 04/10/22 Unknown History subcutaneous pen metoprolol succinate 50 mg 50 mg PO DAILY 04/10/22 04/10/22 04/09/22 History tablet,extended release 24 hr sertraline 50 mg tablet 75 mg PO BEDTIME 04/10/22 04/10/22 04/09/22 History Physical Exam Vital Signs: Vital Signs: Last Vital Signs Temp 98.6 F 04/10/22 20:00 Pulse 75 04/11/22 03:26 Resp 20 04/11/22 08:44 BP 145/103 H 04/11/22 03:26 Pulse Ox 100 04/11/22 03:26 O2 Del Method 04/11/22 03:26 BMI result Body Mass Index 32.5 Gen appear: NAD, well nourished HEENT: No scleral icterus Chest: CTA CVS: Regular S1/S2, no murmurs Abd: soft, mild tenderness in epigastrium,nondistended, bowel sounds active Ext: R BKA, no edema in left lower extemity Neuro: A/Ox3, no asterixis Psych: Normal and stable affect Results Labs CBC & Chem 7: 04/10/22 05:36 04/10/22 05:[address] scan - abdomen: Radiologist's impression: LIVER, GALLBLADDER, AND BILIARY TREE: The liver is normal in size, shape, and attenuation. No focal hepatic lesion or biliary ductal dilatation is present. Cholecystectomy.? PANCREAS: The pancreatic parenchyma is homogenous. There is inflammatory stranding surrounding the pancreatic body. No fluid collection. No ductal dilatation.? SPLEEN: Calcified granuloma in the spleen. Normal size.? Assessment and Plan (1) Recurrent pancreatitis: Status: Acute Differentials include biliary pancreatitis from sludge/microlithiasis although would expect some degree of LFT abnormality; sphincter of Oddi dysfunction. Genetic susceptibility also considered especially given the age of onset of the 1st episode. Autoimmune pancreatitis considered, although not typically associated with recurrent pancreatitis and has cholestatic picture. Other considerations would include pancreatic cyst or PD stricture. Plan - Agree with goal-directed fluid resuscitation with LR however does not have much benefit beyond the first 24-48 hours of admission. - Monitor electrolytes including ionized Ca and Mg and correct appropriately - Check BG TID and HS and maintain between 140 and 180. Hyperglycemia may increase risk of local pancreatic infections - Low threshold for repeat chest imaging for rising O2 requirements to eval for worsening pleural effusions or ARDS - Given mild symptoms at present, consider advancing to low fat liquid diet. - If patient does not improve as expected, may need repeat imaging in 72h to assess for any panc necrosis or local fluid collections. - Have sent a request to the lab (chemistry department) to see if can send out pancreatitis panel (PRSS-1, SPINK, CFTR etc) - Would also recommend repeat MRI pancreas protocol in 4-6 weeks (i.e once inflammation subsides) to thoroughly evaluate the pancreas for any cyst/stricture etc that could explain recurrent pancreatitis in the absence of other common culprits. Recommendations were reviewed with the hospitalist over the phone. Procedures Date of Service Date of Service: 04/11/22
--- NOTE | 2022-04-11 11:38 | PC.NURSE ---
rn to rn report given to luis, pt moved to overflow unit. pt/family aware of plan of care.
[2022-04-11 11:39] LABS: Glucose, Whole Blood 207 mg/dL (60-115)
[2022-04-11] MEDS: Famotidine 20 MG TABLET 40 MG PO (14:30)
[2022-04-11 14:42] LABS: Immunoglobulin G Subclass 1 421 mg/dL (382-929); Immunoglobulin G Subclass 2 598 mg/dL (241-700); Immunoglobulin G Subclass 3 36 mg/dL (22-178); Immunoglobulin G Subclass 4 156.7 mg/dL (4-86); Immunoglobulin G Total 1164 mg/dL (600-1640)
--- NOTE | 2022-04-11 17:02 | HO.PM.IMPN ---
Subjective Subjective Date of Service: 04/11/22 Interval History: Acute pancreatitis Review of Systems Patient still has significant abdominal pain, nausea, unable to tolerate diet yet but we will try clears. Physical Exam Vital Signs: Vital Signs: Last Vital Signs Temp 98.6 F 04/10/22 20:00 Pulse 63 04/11/22 16:34 Resp 16 04/11/22 16:34 BP 179/86 H 04/11/22 16:34 Pulse Ox 97 04/11/22 16:34 O2 Del Method 04/11/22 16:34 BMI result Body Mass Index 32.5 Appearance: Alert.? Oriented X3.? not in distress.? cvs: rrr, [id number] , no murmur res: clear to auscultation ,no rhonchii or wheezing abd: no rebound or guarding ,abd pain (mid), bs present. ext pulses present , no cyanosis ,Gait well balanced well coordinated. neuro: axo3 , nonfocal. Objective Data Active Medications Acetaminophen (Acetaminophen 325 Mg Tablet) 650 mg PO Q6H PRN PRN Reason: Pain, Mild (Pain Scale 1-3) Last Admin: 04/10/22 02:25 Dose: 650 mg Documented By: BERONICA Aspirin (Aspirin 81 Mg Tab.Chew) 81 mg PO DAILY [facility] Last Admin: 04/11/22 08:43 Dose: 81 mg Documented By: CARLENE Clopidogrel Bisulfate (Clopidogrel Bisulfate 75 Mg Tablet) 75 mg PO DAILY [facility] Last Admin: 04/11/22 08:43 Dose: 75 mg Documented By: CARLENE Enoxaparin Sodium (Enoxaparin Sodium 40 Mg/0.4 Ml Syringe) 40 mg SUBCUT Q24H [facility] Last Admin: 04/11/22 08:44 Dose: 40 mg Documented By: CARLENE Famotidine (Famotidine 20 Mg Tablet) 40 mg PO DAILY PRN PRN Reason: heartburn Last Admin: 04/11/22 14:30 Dose: 40 mg Documented By: ANUJ Hydromorphone HCl (Hydromorphone Hcl 1 Mg/Ml Syringe) 1 mg IVPUSH Q4H PRN; Protocol PRN Reason: Pain, Severe (Pain Scale 7-10) Last Admin: 04/11/22 14:30 Dose: 1 mg Documented By: ANUJ Lactated Ringer's (Lr) 1,000 mls @ 125 mls/hr IVCONT .Q8H [facility] Last Admin: 04/11/22 14:45 Dose: Not Given Documented By: ANUJ Non-Admin Reason: IV Running Insulin Glargine (Insulin Glargine,Hum.Rec.Anlog 100 Unit/Ml 10 Ml Vial) 17 unit SUBCUT BEDTIME [facility] Last Admin: 04/10/22 20:44 Dose: 17 unit Documented By: SHARONA Insulin Human Lispro (Insulin Lispro 100 Unit/Ml 3 Ml Vial) 0 unit SUBCUT TIDAC [facility]; Protocol Last Admin: 04/11/22 12:48 Dose: Not Given Documented By: ANUJ Non-Admin Reason: Patient Asleep Metoprolol Succinate (Metoprolol Succinate Er 100 Mg Tab.Er.24h) 100 mg PO DAILY [facility]; Protocol Last Admin: 04/11/22 10:47 Dose: 100 mg Documented By: CARLENE Morphine Sulfate (Morphine Sulfate 4 Mg/Ml Cartridge) 4 mg IVPUSH Q4H PRN; Protocol PRN Reason: Pain, Severe (Pain Scale 7-10) Last Admin: 04/11/22 16:31 Dose: 4 mg Documented By: JOVANNA Ondansetron HCl (Ondansetron Hcl 4 Mg/2 Ml Vial) 4 mg IVPUSH Q8H PRN PRN Reason: Nausea and Vomiting Last Admin: 04/11/22 16:31 Dose: 4 mg Documented By: JOVANNA Sertraline HCl (Sertraline Hcl 25 Mg Tablet) 75 mg PO DAILY [facility] Last Admin: 04/11/22 08:43 Dose: 75 mg Documented By: CARLENE Sodium Chloride (0.9 % Sodium Chloride Flush 3 Ml Syringe) 3 ml IVFLUSH QSHIFT [facility] Last Admin: 04/11/22 16:20 Dose: Not Given Documented By: JOVANNA Non-Admin Reason: IV Running Labs CBC & Chem 7: 04/10/22 05:36 04/10/22 05:36 Labs: Laboratory Results - last 24 hr 04/09/22 04/10/22 04/10/22 23:12 06:20 17:05 POC Glucose 194 H IgG Total Cancelled 1164 IgG Subclass 1 Cancelled 421 IgG Subclass 2 Cancelled 598 IgG Subclass 3 Cancelled 36 IgG Subclass 4 Cancelled 156.7 H 04/10/22 04/11/22 20:11 11:35 POC Glucose 222 H 207 H IgG Total IgG Subclass 1 IgG Subclass 2 IgG Subclass 3 IgG Subclass 4 Assessment and Plan (1) Acute pancreatitis: Status: Acute Plan 56-year-old gentleman with past medical history of hypertension, hyperlipidemia, diabetes, coronary artery disease, prior history of pancreatitis of unknown etiology, remote history of alcohol abuse peripheral vascular disease status post right BKA admitted to [facility] with a diagnosis of acute pancreatitis. Acute pancreatitis Patient had recurrence of abdominal pain overnight, still has abd pain ,nausea No active alcohol use, no illicit drug use, normal LFTs, normal triglyceride , status post cholecystectomy for gallstone pancreatitis Previously thought pancreatitis was due to lisinopril, recently started on Jardiance ? causing pancreatitis Lipase trending down MRA reviewed-shows?Probable mild pancreatitis of the body of the pancreas.? Abdomen pain somewhat improving-will add full liquid diet, continue adjusted on IV fluids, IV Dilaudid HTN-uncontrolled. Elevated blood pressure ? possible pain also contributin continue metoprolol,if still elevated will add amlodipine. CAD continue aspirin , Plavix, metoprolol,and atorvastatin, no chest pain, no shortness of breath. DM2 continue SSI, blood sugar elevated, will DC Lantus since patient will be NPO neuropathy No acute pain continue gabapentin DVT prophylaxis with Lovenox inpatient need: inpatient hospitalization due to acute pancreatitis,? on IV fluids and IV analgesics Quality Stroke Does the patient have a stroke diagnosis?: No VTE Prior VTE?: No VTE Risk Level:: Medical - moderate - high VTE Device Contraindication: Treatment Not Indicated VTE Drug Contraindication: N/A - Med Ordered
[2022-04-11] MEDS: amLODIPine Besylate 2.5 MG TABLET PO (19:12)
[2022-04-11 19:16] LABS: Glucose, Whole Blood 266 mg/dL (60-115)
[2022-04-12] VITALS (8 sets, daily range): BP systolic 148–189; BP diastolic 74–92; PULSE 56–62; RESP 14–18; TEMP 36.1–36.6; O2SAT 96–99
[2022-04-12] MEDS: HYDROmorphone HCl 1 MG/ML SYRINGE IVPUSH ×4 (00:34→15:46)
[2022-04-12] MEDS: ondansetron HCL 4 MG/2 ML VIAL IVPUSH ×3 (00:46→15:46)
[2022-04-12] MEDS: Morphine Sulfate 4 MG/ML CARTRIDGE IVPUSH ×3 (03:22→12:49)
[2022-04-12 05:19] LABS: Anion Gap 15 (12-20); Blood Urea Nitrogen 8 mg/dL (9-16); Carbon Dioxide 29 mmol/L (22-29); Chloride 100 mmol/L (96-108); Creatinine Clr Calc Pharmacy 118.5; Estimated Glomerular Filt Rate > 60; Glucose Random 212 mg/dL (60-115); Potassium 3.8 mmol/L (3.3-5.1); Sodium 140 mmol/L (135-145)
[2022-04-12] MEDS: Enoxaparin Sodium 40 MG/0.4 ML SYRINGE SUBCUT (05:29)
[2022-04-12 07:22] LABS: Glucose, Whole Blood 195 mg/dL (60-115)
[2022-04-12] MEDS: Insulin Lispro 100 UNIT/ML 3 ML VIAL SUBCUT ×2 (07:35→12:47)
[2022-04-12] MEDS: Sertraline HCL 25 MG TABLET 75 MG PO (08:55)
[2022-04-12] MEDS: amLODIPine Besylate 5 MG TABLET PO (08:55)
[2022-04-12] MEDS: Metoprolol Succinate ER 100 MG TAB.ER.24H PO (08:56)
[2022-04-12] MEDS: 0.9 % Sodium Chloride Flush 3 ML SYRINGE IVFLUSH (08:56)
[2022-04-12] MEDS: Clopidogrel Bisulfate 75 MG TABLET PO (08:56)
[2022-04-12] MEDS: Aspirin 81 MG TAB.CHEW PO (08:56)
[2022-04-12 12:31] LABS: Glucose, Whole Blood 239 mg/dL (60-115)
--- NOTE | 2022-04-12 13:21 | P.PNGI_ITS ---
Subjective Subjective Date of Service: 04/12/22 Interval History: Patient seen and evaluated at bedside. Reports marked improvement in abdominal pain overall, pain all localized only to right side of the abdomen. Appetite has improved, tolerating his liquid diet without any issues. Eager to advance to solid food. Critical Care Time (minutes): 0 Physical Exam Vital Signs: Vital Signs: Last Vital Signs Temp 97 F 04/12/22 08:42 Pulse 60 04/12/22 08:42 Resp 16 04/12/22 08:42 BP 186/74 H 04/12/22 08:42 Pulse Ox 98 04/12/22 08:42 O2 Del Method 04/12/22 08:42 BMI result Body Mass Index 32.5 General appearance: No acute distress Abdomen: Soft, mild tenderness in right upper and lower quadrant, no rebound tenderness, no guarding Objective Data Labs CBC & Chem 7: 04/10/22 05:36 04/12/22 04:37 Labs: Laboratory Results - last 24 hr 04/10/22 04/11/22 04/12/22 06:20 19:13 04:37 Sodium 140 Potassium 3.8 Chloride 100 Carbon Dioxide 29 Anion Gap 15 BUN 8 L Creatinine 0.82 Estim Creat Clear Calc 118.5 Estimated GFR > 60 POC Glucose 266 H Random Glucose 212 H Calcium 9.0 D IgG Total 1164 IgG Subclass 1 421 IgG Subclass 2 598 IgG Subclass 3 36 IgG Subclass 4 156.7 H 04/12/22 04/12/22 07:10 12:06 Sodium Potassium Chloride Carbon Dioxide Anion Gap BUN Creatinine Estim Creat Clear Calc Estimated GFR POC Glucose 195 H 239 H Random Glucose Calcium IgG Total IgG Subclass 1 IgG Subclass 2 IgG Subclass 3 IgG Subclass 4 Procedures Date of Service Date of Service: 04/12/22 Progress Note: A&P Assessment and plan (1) Recurrent pancreatitis: Status: Acute Plan Labs reviewed: white count has normalised. Still has hyperglycemia. IgG subtype have returned with IgG4 156.7, almost twice upper limit of normal. Overall, patient is clinically improving. -okay to advance diet to low-fat -can discontinue IV fluids -optimize glycemic control -consider switching IV pain management to p.o. regimen -? AIP is raised given the IgG4 elevation. This can be further worked up as an outpatient including EUS for biopsy as needed. No pressing need for gluco corticoid trial as patient is already improving. Recommendations reviewed with hospitalist over the phone. Quality Stroke Does the patient have a stroke diagnosis?: No VTE Prior VTE?: No VTE Risk Level:: Medical - moderate - high VTE Device Contraindication: Treatment Not Indicated VTE Drug Contraindication: N/A - Med Ordered
--- NOTE | 2022-04-12 15:23 | P.PNIM_ITS ---
Subjective Subjective Date of Service: 04/12/22 Interval History: Acute pancreatitis Review of Systems still abd pain but slightly improving ,still has nausea denies any chest pain or sob or urinary c/o. will try to advance diet Physical Exam Vital Signs: Vital Signs: Last Vital Signs Temp 97 F 04/12/22 14:00 Pulse 57 04/12/22 14:00 Resp 16 04/12/22 14:00 BP 158/84 H 04/12/22 14:00 Pulse Ox 99 04/12/22 14:00 O2 Del Method 04/12/22 14:00 BMI result Body Mass Index 32.5 ?Appearance: Alert.? Oriented X3.? not in distress.? cvs: rrr, [id number] , no murmur res: clear to auscultation ,no rhonchii or wheezing abd: no rebound or guarding ,abd pain (mid), bs present. ext pulses present , no cyanosis ,Gait well balanced well coordinated. neuro: axo3 , nonfocal. Objective Data Active Medications Acetaminophen (Acetaminophen 325 Mg Tablet) 650 mg PO Q6H PRN PRN Reason: Pain, Mild (Pain Scale 1-3) Last Admin: 04/10/22 02:25 Dose: 650 mg Documented By: BERONICA Amlodipine Besylate (Amlodipine Besylate 5 Mg Tablet) 5 mg PO DAILY COUNTS INCLUDE 234 BEDS AT THE [facility]; Protocol Last Admin: 04/12/22 08:55 Dose: 5 mg Documented By: COREY Aspirin (Aspirin 81 Mg Tab.Chew) 81 mg PO DAILY COUNTS INCLUDE 234 BEDS AT THE [facility] Last Admin: 04/12/22 08:56 Dose: 81 mg Documented By: COREY Clopidogrel Bisulfate (Clopidogrel Bisulfate 75 Mg Tablet) 75 mg PO DAILY [facility]S INCLUDE 234 BEDS AT THE [facility] Last Admin: 04/12/22 08:56 Dose: 75 mg Documented By: COREY Enoxaparin Sodium (Enoxaparin Sodium 40 Mg/0.4 Ml Syringe) 40 mg SUBCUT Q24H COUNTS INCLUDE 234 BEDS AT THE [facility] Last Admin: 04/12/22 05:29 Dose: 40 mg Documented By: BERONICA Famotidine (Famotidine 20 Mg Tablet) 40 mg PO DAILY PRN PRN Reason: heartburn Last Admin: 04/11/22 14:30 Dose: 40 mg Documented By: ANUJ Hydromorphone HCl (Hydromorphone Hcl 1 Mg/Ml Syringe) 1 mg IVPUSH Q8H PRN; Protocol PRN Reason: Pain, Severe (Pain Scale 7-10) Hydromorphone HCl (Hydromorphone Hcl 2 Mg Tablet) 1 mg PO Q6H PRN PRN Reason: Pain, Mild (Pain Scale 1-3) Insulin Glargine (Insulin Glargine,Hum.Rec.Anlog 100 Unit/Ml 10 Ml Vial) 17 unit SUBCUT BEDTIME COUNTS INCLUDE 234 BEDS AT THE [facility] Last Admin: 04/11/22 21:06 Dose: Not Given Documented By: STUART Non-Admin Reason: NPO Insulin Human Lispro (Insulin Lispro 100 Unit/Ml 3 Ml Vial) 0 unit SUBCUT TIDAC COUNTS INCLUDE 234 BEDS AT THE [facility]; Protocol Last Admin: 04/12/22 12:47 Dose: 4 unit Documented By: KAEL Metoprolol Succinate (Metoprolol Succinate Er 100 Mg Tab.Er.24h) 100 mg PO DAILY [facility]S INCLUDE 234 BEDS AT THE [facility]; Protocol Last Admin: 04/12/22 08:56 Dose: 100 mg Documented By: COREY Ondansetron HCl (Ondansetron Hcl 4 Mg/2 Ml Vial) 4 mg IVPUSH Q8H PRN PRN Reason: Nausea and Vomiting Last Admin: 04/12/22 08:55 Dose: 4 mg Documented By: COREY Sertraline HCl (Sertraline Hcl 25 Mg Tablet) 75 mg PO DAILY [facility]S INCLUDE 234 BEDS AT THE [facility] Last Admin: 04/12/22 08:55 Dose: 75 mg Documented By: COREY Sodium Chloride (0.9 % Sodium Chloride Flush 3 Ml Syringe) 3 ml IVFLUSH QSHIFT COUNTS INCLUDE 234 BEDS AT THE [facility] Last Admin: 04/12/22 08:56 Dose: 3 ml Documented By: COREY Labs CBC & Chem 7: 04/10/22 05:36 04/12/22 04:37 Labs: Laboratory Results - last 24 hr 04/11/22 04/12/22 04/12/22 19:13 04:37 07:10 Anion Gap 15 Estim Creat Clear Calc 118.5 Estimated GFR > 60 POC Glucose 266 H 195 H Random Glucose 212 H Calcium 9.0 D 04/12/22 12:06 Anion Gap Estim Creat Clear Calc Estimated GFR POC Glucose 239 H Random Glucose Calcium Assessment and Plan (1) Acute pancreatitis: Status: Acute Plan 56-year-old gentleman with past medical history of hypertension, hyperlipidemia, diabetes, coronary artery disease, prior history of pancreatitis of unknown etiology, remote history of alcohol abuse peripheral vascular disease status post right BKA admitted to [facility] with a diagnosis of acute pancreatitis. Acute pancreatitis Patient had recurrence of abdominal pain overnight, still has abd pain ,nausea No active alcohol use, no illicit drug use, normal LFTs, normal triglyceride , status post cholecystectomy for gallstone pancreatitis Previously thought pancreatitis was due to lisinopril, recently started on Jardiance ? causing pancreatitis Lipase trending down,IGg4 elevated . MRA reviewed-shows?Probable mild pancreatitis of the body of the pancreas.? Abdomen pain somewhat improving-try to advance diet, will try to taper IV Dilaudid, also added po pain meds once improves -patient need to follow up with Gi outpatient. HTN-uncontrolled. Elevated blood pressure ? possible pain also contributin ?continue metoprolol,if still elevated will add amlodipine. CAD continue aspirin , Plavix, metoprolol,and atorvastatin, no chest pain, no shortness of breath. DM2 continue SSI, blood sugar elevated neuropathy No acute pain continue gabapentin DVT prophylaxis with Lovenox inpatient need: inpatient hospitalization due to acute pancreatitis,? IV analgesics Quality Stroke Does the patient have a stroke diagnosis?: No VTE Prior VTE?: No VTE Risk Level:: Medical - moderate - high VTE Device Contraindication: Treatment Not Indicated VTE Drug Contraindication: N/A - Med Ordered
--- NOTE | 2022-04-12 15:57 | MHC.CM.PN ---
Per ROUNDS discussion, patient is not yet medically cleared for discharge R/T Acute pancreatitis, IV analgesics. D/C plan remains Home resume [employer] services. CM will continue to follow for D/C needs.
[2022-04-12 18:48] LABS: Glucose, Whole Blood 251 mg/dL (60-115)
[2022-04-12] MEDS: Insulin Glargine,Hum.rec.anlog 100 UNIT/ML 10 ML VIAL 17 UNIT SUBCUT (21:06)
[2022-04-12] MEDS: HYDROmorphone HCl 2 MG TABLET 1 MG PO (23:15)
[2022-04-13] VITALS: BP 165/66; PULSE 59; RESP 18; TEMP 36.2; O2SAT 98
[2022-04-13] MEDS: 0.9 % Sodium Chloride Flush 3 ML SYRINGE IVFLUSH (01:11)
[2022-04-13] MEDS: ondansetron HCL 4 MG/2 ML VIAL IVPUSH (03:22)
[2022-04-13 04:00] VITALS: BP 196/90; PULSE 61; RESP 18; TEMP 36.2; O2SAT 97
[2022-04-13] MEDS: HYDROmorphone HCl 2 MG TABLET 1 MG PO (05:15)
[2022-04-13] MEDS: Acetaminophen 325 MG TABLET 650 MG PO (05:16)
[2022-04-13] MEDS: Enoxaparin Sodium 40 MG/0.4 ML SYRINGE SUBCUT (05:16)
[2022-04-13 06:26] VITALS: BP 169/78; PULSE 63; RESP 16; O2SAT 97
[2022-04-13 07:51] LABS: Glucose, Whole Blood 245 mg/dL (60-115)
[2022-04-13] MEDS: Insulin Lispro 100 UNIT/ML 3 ML VIAL SUBCUT (08:08)
[2022-04-13] MEDS: amLODIPine Besylate 5 MG TABLET PO (08:08)
[2022-04-13] MEDS: Metoprolol Succinate ER 100 MG TAB.ER.24H PO (08:08)
[2022-04-13] MEDS: Sertraline HCL 25 MG TABLET 75 MG PO (08:08)
[2022-04-13] MEDS: Aspirin 81 MG TAB.CHEW PO (08:09)
[2022-04-13] MEDS: Clopidogrel Bisulfate 75 MG TABLET PO (08:09)
[2022-04-13 08:13] VITALS: BP 181/73; PULSE 61; RESP 14; O2SAT 98
--- NOTE | 2022-04-13 09:23 | PM.DS ---
DS: Providers Provider Date of Service: 04/13/22 Date of admission: 04/10/22 01:40 Primary care physician: Shanta Haney MD Consults: 04/11/22 07:50 Consult to Gastroenterology Routine Consulting Provider: [facility] Reason for consultation: Acute pancreatitis Has provider been notified: No DS: Diagnosis Discharge Diagnosis (1) Acute pancreatitis: Status: Acute DS: Summary Hospital Course Hospital Course: Chief Complaint: Epigastric pain This is a 56-year-old male with past medical history of hypertension, hyperlipidemia, diabetes, CAD, history of pancreatitis returns to the hospital after being discharged the same day with severe abdominal pain.? Patient reports that when he was discharged in a.m. he was feeling better, was able to eat something at home with no significant pain but a couple hours later developed epigastric pain radiating to the back the pain is 10/10, associated with nausea, no vomiting, no diarrhea or constipation.? No urinary symptoms.? He reports not drinking alcohol at home today. On arrival to the ED patient hemodynamically stable with elevated blood pressure otherwise vitals unremarkable Labs are significant for WBC count of 11.5, sodium of 132, lipase of 464, CT of the abdomen shows inflammatory stranding surrounding the pancreatic body consistent with acute pancreatitis no fluid collection Patient will be admitted for further management Hospital course: His acute pancreatitis was treated with IV pain medication, IVF and slowly diet was advanced and he is presently tolerating regular. He was seen by Dr. Robert from GI with the following remarks: -? AIP is raised given the IgG4 elevation.? This can be further worked up as an outpatient including EUS for biopsy as needed. Therefore he should follow-up with the GI clinic. Time Spent with Patient Time attestation: Total time spent providing and/or coordinating discharge services: Discharge coordination time: Greater than 30 minutes Quality: Safe Use of Opioids Does Pt have an Active Cancer Diagnosis on the Problem List?: No Quality: Stroke Does the patient have a stroke diagnosis?: No Physical Exam Vital Signs: Vital Signs: Last Vital Signs Temp 97.2 F 04/13/22 04:00 Pulse 61 04/13/22 08:13 Resp 14 04/13/22 08:13 BP 181/73 H 04/13/22 08:13 Pulse Ox 98 04/13/22 08:13 O2 Del Method 04/13/22 08:13 BMI result Body Mass Index 32.5 Const: Other: General: AO X 3, no acute distress Resp: CTA bilateral CVS: S1,S2,RRR GI: +BS, NT, no distention Skin: No rash Neuro: motor grossly intact Psych: appropriate affect DS: Data Data Completed and Pending Completed studies during hospitalization [Text1]: Procedures Detachment at Right 1st Toe, Complete, Open Approach (08/18/21) Detachment at Right Lower Leg, High, Open Approach (08/18/21) Dilation of Right Ureter with Intraluminal Device, Via Natural or Artificial Opening Endoscopic (06/21/20) Excision of Right Tarsal, Open Approach (08/18/21) Extirpation of Matter from Right Ureter, Via Natural or Artificial Opening Endoscopic (06/21/20) Fluoroscopy of Right Kidney, Ureter and Bladder (06/21/20) Insertion of Infusion Device into Superior Vena Cava, Percutaneous Approach (08/18/21) Labs on day of discharge: Laboratory Results - last 24 hr 04/12/22 04/12/22 04/13/22 12:06 18:41 07:46 POC Glucose 239 H 251 H 245 H Discharge Plan Discharge Anticipated Discharge Date/Time: 04/13/22 09:17 Patient Disposition: Home, Self-Care Discharge Diagnosis: Acute pancreatitis Referrals: Shanta Haney MD [Primary Care Provider] - 1 Week Discharge Medications: New oxycodone 5 mg tablet 5 mg PO Q6H PRN (Reason: pain (scale score 7-10)) Qty: 10 0RF Rx Instructions: Partial Fill upon patient request. Continued metoprolol succinate 50 mg tablet extended release 24 hr 50 mg PO DAILY famotidine 40 mg tablet 40 mg PO DAILY PRN (Reason: heartburn) sertraline 50 mg tablet 75 mg PO BEDTIME insulin lispro 100 unit/mL insulin pen See Protocol subcut TIDA Protocol: Insulin Correction Scale Less than or equal to 110 ---- Give (units): 0 111 to 150 Give (units): 0 151 to 200 Give (units): 2 201 to 250 Give (units): 4 251 to 300 Give (units): 6 301 to 350 Give (units): 8 Greater than 350 Give (units): 10 Call MD if Blood Glucose > : 350 insulin glargine [Lantus Solostar U-100 Insulin] 100 unit/mL (3 mL) insulin pen 17 unit subcut BEDTIME clopidogrel 75 mg tablet 75 mg PO DAILY acetaminophen 500 mg Tablet 1,000 mg PO BID PRN (Reason: Pain, Mild) aspirin 81 mg tablet,chewable 81 mg PO DAILY Diet: Diabetic diet Activity on Discharge: As tolerated Stand Alone Forms: Patient Portal Discharge page Care Plan Goals: Full recovery from pancreatitis Health Concerns: Recurrent pancreatitis, diabetes, hypertension Plan of Treatment: Taking medication as directed follow up with her primary care doctor within a week, follow-up with Dr. Robert in the GI clinic. Avoid alcohol and illicit substance Assessment: As above
--- NOTE | 2022-04-13 09:30 | MHC.CM.PN ---
Patient has been medically cleared for dc to home today, self care.
--- NOTE | 2022-04-13 11:18 | PC.NURSE ---
Pt A&Ox4, no pain at tihs time, MD at bedside, plan for DC home. Call arthur within reach. Will continue to monitor.
== END 2022-04-13 11:23 | disposition home or self-care (01) | DRG 282 ==
LOC: HO.ED 04-10 01:41 → HO.EDOVER 04-10 02:23
PROVIDERS: Internal Medicine; Admitting Provider Internal Medicine; Emergency Provider Emergency Medicine; PCP Internal Medicine; Visit Provider Internal Medicine
DX: K85.90 Acute pancreatitis without necrosis or infection, unspecified (principal); E11.42 Type 2 diabetes mellitus with diabetic polyneuropathy; E78.5 Hyperlipidemia, unspecified; I25.10 Atherosclerotic heart disease of native coronary artery without angina pectoris; Z89.511 Acquired absence of right leg below knee; E11.40 Type 2 diabetes mellitus with diabetic neuropathy, unspecified; Z87.891 Personal history of nicotine dependence; Z79.4 Long term (current) use of insulin; Z79.02 Long term (current) use of antithrombotics/antiplatelets; Z79.82 Long term (current) use of aspirin; Z79.899 Other long term (current) drug therapy
CPT/HCPCS: 36415; 74176; 80048; 80053; 82077; 82784; 82947; 83690; 84478; 85025; 87635; 99218; 99285; J1170; J1650; J2270; J2405

== ENCOUNTER 2022-04-18 10:08 | Outpatient (REF) | payer OTHER, SELFPAY ==
[2022-04-18 11:21] LABS: MANUAL DIFF FLAG NO
[2022-04-18 11:37] LABS: Basophils Absolute Auto 0.1 X10*3/uL (0.0-0.2); Eosinophils Absolute Auto 0.4 X10*3/uL (0.0-0.4); Eosinophils Percent Auto 4.5 % (0-4); Hematocrit 43.9 % (42.0-52.0); Hemoglobin 14.3 g/dl (14.0-18.0); Imm Gran Abs Auto 0.05 X10*3/uL (0.00-0.03); Imm Gran Pct Auto 0.5 % (0.0-0.4); Lymphocytes Absolute Auto 2.3 X10*3/uL (1.2-4.9); Lymphocytes Percent Auto 22.9 % (20-40); Mean Corpuscular HGB Conc 32.6 g/dl (31.0-36.0); Mean Corpuscular Hemoglobin 26.3 pg (27.0-33.0); Mean Corpuscular Volume 80.8 fL (80.0-98.0); Mean Platelet Volume 11.3 fL (9.4-12.4); Monocytes Absolute Auto 0.9 X10*3/uL (0.1-1.2); Monocytes Percent Auto 9.2 % (2-11); Neutrophils Absolute Auto 6.1 x10*3/uL (2.0-8.3); Neutrophils Percent Auto 61.9 % (45-73); Platelet Count 286 X10*3/uL (160-400); Red Blood Count 5.43 X10*6/uL (4.60-5.80); Red Cell Distribution Width 15.4 % (11.0-16.0); White Blood Count 9.8 X10*3/uL (4.8-10.8)
[2022-04-18 11:39] LABS: Estimated Average Glucose 232 mg/dL; Hemoglobin A1c % 9.7 %
[2022-04-18 12:08] LABS: Alanine Aminotransferase 23 U/L (0-40); Albumin Level 3.7 g/dL (3.5-5.0); Alkaline Phosphatase 125 U/L (39-117); Anion Gap 16 (12-20); Aspartate Amino Transferase 14 U/L (5-37); Bilirubin Total 0.3 mg/dL (0.0-1.0); Blood Urea Nitrogen 13 mg/dL (9-16); Carbon Dioxide 25 mmol/L (22-29); Chloride 99 mmol/L (96-108); Cholesterol 144 mg/dL; Estimated Glomerular Filt Rate > 60; Glucose Fasting 313 mg/dL (60-99); HDL Cholesterol 31 mg/dL; LDL Cholesterol Calculated 78 mg/dl; Lipase 141 U/L (8-78); Sodium 136 mmol/L (135-145); Total Protein 7.5 g/dL (6.5-8.0); Triglycerides 176 mg/dL
[2022-04-18 12:12] LABS: Amylase 65 U/L (28-100)
[2022-04-18 12:29] LABS: Creatinine Urine 60.22 mg/dL
== END 2022-04-18 10:09 | disposition home or self-care (01) ==
LOC: HO.HMGCLDS 10:08
PROVIDERS: PCP Internal Medicine; Visit Provider Internal Medicine
DX: E11.9 Type 2 diabetes mellitus without complications (principal); E78.5 Hyperlipidemia, unspecified; I10 Essential (primary) hypertension; I73.9 Peripheral vascular disease, unspecified; K85.90 Acute pancreatitis without necrosis or infection, unspecified; Z79.4 Long term (current) use of insulin
CPT/HCPCS: 36415; 80053; 80061; 82043; 82150; 83036; 83690; 85025

== ENCOUNTER 2022-08-31 14:31 | Outpatient (REF) | payer OTHER, SELFPAY ==
--- NOTE | ~2022-08-31 | US_ITS ---
EXAMINATION: NONINVASIVE ASSESSMENT OF THE ARTERIES OF THE LEFT LOWER EXTREMITY WITH PVR EXAM AND BILATERAL LOWER EXTREMITY DUPLEX Kayla Adam MD CLINICAL INFORMATION: Peripheral vascular disease TECHNIQUE: Ankle pulse volume recordings, ankle pressure measurements and ankle brachial indices were obtained of the left lower extremity arterial system bilaterally in addition to duplex Doppler techniques with wave form analysis and measurement of velocities in the common femoral, profunda femoral, superficial femoral, popliteal and tibial arteries. The study was performed only at rest. COMPARISON: Noninvasive arterial evaluation on 07/20/2021 FINDINGS: LEFT LE. The left ankle-brachial index is: 1.16 * >0.97-1.25 = normal - no significant arterial disease * 0.75-0.96 = mild peripheral arterial disease * 0.5-0.74 = moderate peripheral arterial disease * <0.50 = severe peripheral arterial disease 2. Left ankle pressure: Elevated 3. Left ankle PVR waveform: Abnormal 4. Left direct duplex Doppler findings: Common femoral artery: 127 cm/s, Multiphasic Profunda femoris artery: 99 cm/s, Multiphasic Superficial femoral artery (proximal): 92 cm/s, Multiphasic Superficial femoral artery (mid): 124 cm/s, Multiphasic Superficial femoral artery (distal): 152 cm/s, monophasic Proximal Popliteal artery: 104 cm/s, Multiphasic Mid posterior tibial artery: 43 cm/s, monophasic, possible focal occlusion in the proximal portion US/US ABHILASH complete IMPRESSION: Possible focal occlusion in the proximal posterior tibial artery. Atherosclerotic calcification throughout the left lower extremity. Elevated ABHILASH and left ankle pressures suggest noncompressibility.
--- NOTE | ~2022-08-31 | US_ITS ---
EXAMINATION: NONINVASIVE ASSESSMENT OF THE ARTERIES OF THE LEFT LOWER EXTREMITY WITH PVR EXAM AND BILATERAL LOWER EXTREMITY DUPLEX Kayla Adam MD CLINICAL INFORMATION: Peripheral vascular disease TECHNIQUE: Ankle pulse volume recordings, ankle pressure measurements and ankle brachial indices were obtained of the left lower extremity arterial system bilaterally in addition to duplex Doppler techniques with wave form analysis and measurement of velocities in the common femoral, profunda femoral, superficial femoral, popliteal and tibial arteries. The study was performed only at rest. COMPARISON: Noninvasive arterial evaluation on 07/20/2021 FINDINGS: LEFT LE. The left ankle-brachial index is: 1.16 * >0.97-1.25 = normal - no significant arterial disease * 0.75-0.96 = mild peripheral arterial disease * 0.5-0.74 = moderate peripheral arterial disease * <0.50 = severe peripheral arterial disease 2. Left ankle pressure: Elevated 3. Left ankle PVR waveform: Abnormal 4. Left direct duplex Doppler findings: Common femoral artery: 127 cm/s, Multiphasic Profunda femoris artery: 99 cm/s, Multiphasic Superficial femoral artery (proximal): 92 cm/s, Multiphasic Superficial femoral artery (mid): 124 cm/s, Multiphasic Superficial femoral artery (distal): 152 cm/s, monophasic Proximal Popliteal artery: 104 cm/s, Multiphasic Mid posterior tibial artery: 43 cm/s, monophasic, possible focal occlusion in the proximal portion US/US arterial duplex LE LT IMPRESSION: Possible focal occlusion in the proximal posterior tibial artery. Atherosclerotic calcification throughout the left lower extremity. Elevated ABHILASH and left ankle pressures suggest noncompressibility.
== END 2022-08-31 14:32 | disposition home or self-care (01) ==
LOC: HO.US 14:31
PROVIDERS: Visit Provider Surgery Vascular Surgery
DX: I73.9 Peripheral vascular disease, unspecified (principal)
CPT/HCPCS: 93923; 93926

== ENCOUNTER → 2022-10-25 13:51 | Outpatient (BNVA) | payer OTHER, SELFPAY | PROVIDERS: PCP Internal Medicine; Visit Provider Surgery Vascular Surgery | DX: I73.9 Peripheral vascular disease, unspecified (principal) | CPT/HCPCS: 99212 ==

== ENCOUNTER → 2022-12-01 15:11 | Outpatient (BNVA) | payer OTHER, SELFPAY | PROVIDERS: PCP Internal Medicine; Visit Provider Internal Medicine Endocrinology, Diabetes & Metabolism | DX: E11.9 Type 2 diabetes mellitus without complications (principal); Z79.4 Long term (current) use of insulin | CPT/HCPCS: 82947; 83036; 99212 ==

== ENCOUNTER 2022-12-02 15:00 | Outpatient (RCR) | payer OTHER, SELFPAY ==
--- NOTE | 2022-08-05 17:23 | MHC.PT.EP ---
[facility] [place] Office [place] Office [place] Office [address] [place] [address] [phone] F: [phone] F: [phone] F: [phone] F: [phone] Physical Therapy Plan of Care Date of Evaluation: Date of Surgery: Diagnosis: R BKA Assessment: Pt is a 57 y/o male who underwent a R BKA in August of 2020 for management of diabetic complications resulting in decreased tolerance and ability for standing and walking secondary to prolonged healing complications, initiating use of his new prosthesis, decreased standing balance, decreased B LE strength, and gait abnormality. Pt is highly motivated to improve his function and is deemed an appropriate candidate to receive skilled PT services to address their physical impairments in order to improve their functional ability. Frequency and Duration: The patient will be seen 2 x / wk x 8 wks Short Term Goals: Initiate HEP. Pt will obtain rollers for front of his home walker. Pt will be able to stand unsupported x 30 seconds unassisted; initial: unable. Retirement Goals: I with HEP. Pt will be able to walk 250ft with 2WW on level surfaces under supervision. Initial: 50ft 2WW under GBA x 1 with WC follow. Improve B hip abd MMT by at least 1/2 MMT grade. Improve L knee extension MMT by at least 1/2 MMT grade. Treatment Plan: Modalities to reduce pain, spasms and effusion. Manual therapy to restore motion and function. Therapeutic exercise to improve strength and flexibility. Neuromuscular re-education for posture and balance. Therapeutic activities to return to functional activities of daily living. Electronically signed by: [place] PT. Please sign and return to therapist. Thank you for your referral.
--- NOTE | 2022-12-23 08:38 | MHC.PT.DC ---
[facility] [place] Office [place] Office [place] Office [address] [place] [address] [phone] F: [phone] F: [phone] F: [phone] F: [phone] Physical Therapy Discharge Report Diagnosis: R BKA Date of Surgery: Date of Evaluation: 08/05/22 Date of Discharge: 12/23/22 Treatments to Date: 18 Cancellations to Date: 4 No Shows to Date: 6 Discharge Status: Improved Function Visit Non-compliance Discharge Summary: Pierre had made some good progress in physical therapy and progressed his ability for standing and ambulation with 2WW and his prosthesis. Pierre is DC'd unfortunately d/t high number of cancellations and no show apts. Electronically signed by: [place] PT. Please sign and return to therapist. Thank you for your referral.
== END 2022-12-23 09:24 | disposition home or self-care (01) ==
LOC: HO.PTCHIC 15:00
PROVIDERS: PCP Internal Medicine; Visit Provider Surgery Vascular Surgery
DX: Z89.511 Acquired absence of right leg below knee (principal)
CPT/HCPCS: 97110; 97112; 97116; 97140; 97163; 97530

== ENCOUNTER 2023-01-30 17:39 | Outpatient (REF) | payer OTHER, SELFPAY | END 2023-01-30 17:40 | disposition home or self-care (01) | LOC: HO.LNP 17:39 | PROVIDERS: Visit Provider Physician Assistant | DX: L02.416 Cutaneous abscess of left lower limb (principal); L03.116 Cellulitis of left lower limb | CPT/HCPCS: 87070; 87077; 87186; 87205 ==

== ENCOUNTER 2023-02-13 19:20 | Emergency (ER) | payer OTHER, SELFPAY ==
--- NOTE | ~2023-02-13 | CT_ITS ---
EXAMINATION: CT ABDOMEN AND PELVIS WITH CONTRAST CLINICAL INFORMATION: ? Pancreatitis COMPARISON: CT abdomen and pelvis 04/10/2022 TECHNIQUE: Multidetector volumetric images were obtained from the superior aspect of the liver through the pubic symphysis following administration 85 mL of Omnipaque 350 intravenous contrast. Sagittal and coronal reformatted images were obtained on the technologist's workstation. Oral contrast: No This CT examination was performed using dose optimization techniques as appropriate, variously including the following: *Automated exposure control *Adjustment of mA and/or kV according to patient size (this includes techniques or standardized protocols for targeted exams where dose is matched to indication/reason for exam; i.e. extremities or head) *Use of iterative reconstruction technique DLP: 737 mGy-cm FINDINGS: LUNG BASES: The visualized lung bases are unremarkable. LIVER, GALLBLADDER, AND BILIARY TREE: The liver is normal size, contour with diffuse decreased attenuation. No focal lesion or intrahepatic ductal dilatation seen. The gallbladder has been surgically removed. PANCREAS: Unremarkable. SPLEEN: The spleen is unremarkable. Punctate calcification ADRENAL GLANDS: The adrenal glands are slightly prominent but no focal lesion seen. KIDNEYS AND URETERS: The kidneys are normal in size, shape, and attenuation. There is mild focal thinning along the posterior and upper right kidney and midpole left kidney. There is an exophytic 2 cm cyst midpole right kidney and a nonobstructive 8 mm calculi lower pole calyx left kidney. There is no hydronephrosis or perinephric stranding.. BLADDER: Unremarkable. GASTROINTESTINAL TRACT: There is scattered stool and gas seen throughout the colon without significant distention. The small bowel loops are normal caliber. Appendix is normal caliber. No free air or free fluid seen. ABDOMINAL WALL: No significant hernia is appreciated. LYMPH NODES: Normal. VASCULAR: There is atherosclerotic calcification abdominal aorta and iliac arteries but no aneurysmal dilatation seen. PELVIC VISCERA: Mild prostate enlargement. No abnormal pelvic or inguinal lymph nodes. No free fluid.. OSSEOUS STRUCTURES: No aggressive lytic or sclerotic process seen. Bilateral L5 pars defect without listhesis CT/CT abdomen pelvis w IV con IMPRESSION: The pancreas unremarkable. Mild hepatic steatosis without focal lesion. Gallbladder is out. Nonobstructive 8 mm radiopaque calculi lower pole left kidney, mid pole right renal simple cyst and mild cortical scarring of bilateral kidneys as described above. Fleischner guidelines were followed.
[2023-02-13 19:33] VITALS: BP 191/80; PULSE 76; RESP 18; TEMP 36.7; O2SAT 98; BMI 32.5
--- NOTE | 2023-02-13 19:34 | ED.GENADULT ---
HPI - General Adult General Chief complaint: General Medical Stated complaint: right upper abd pain / left leg pain Time Seen by Provider: 02/13/23 23:17 Source: patient Mode of arrival: ambulatory Limitations: no limitations History of Present Illness HPI narrative: Patient diabetic history of pancreatitis took Bactrim 2 weeks ago on 01/30 for wound on the left leg after taking the medicine patient started having stomach upset and pain in upper abdomen with nausea patient is status post cholecystectomy. Patient was started on famotidine by PCP but is still having afraid of pancreatitis Related Data Home Medications Medication Instructions Recorded Confirmed acetaminophen 500 mg tablet 1,000 mg PO BID PRN Pain, Mild 04/10/22 04/10/22 clopidogrel 75 mg tablet 75 mg PO DAILY 04/10/22 04/10/22 blood sugar diagnostic (FreeStyle 12/01/22 Lite Strips) blood-glucose meter (FreeStyle 12/01/22 Lite Meter kit) Previous Rx's Medication Instructions Recorded Bedside commode #1 ea 04/18/22 walker with wheels #1 ea 08/19/22 pen needle, diabetic 31 gauge x #100 ea 10/20/22 5/16 (BD Ultra-Fine Short Pen Needle) recliner #1 ea 11/23/22 flash glucose sensor (FreeStyle #2 ea 12/01/22 Frank 2 Sensor kit) flash glucose scanning reader #1 ea 12/02/22 (FreeStyle Frank 2 [place]) gabapentin 600 mg tablet 600 mg PO TID #90 tabs 12/16/22 insulin glargine 100 unit/mL (3 24 unit (0.24 mL) subcut BEDTIME 01/19/23 mL) subcutaneous pen (Lantus #15 mL Solostar U-100 Insulin) insulin lispro 100 unit/mL 17 unit subcut TIDAC #15 mL 01/20/23 subcutaneous pen famotidine 40 mg tablet 40 mg PO DAILY PRN heartburn #90 01/27/23 tabs metoprolol succinate 50 mg 50 mg PO DAILY #90 tabs 01/27/23 tablet,extended release 24 hr sulfamethoxazole 800 1 tab PO Q12H 10 days #20 tabs 01/30/23 mg-trimethoprim 160 mg tablet (Bactrim DS) aspirin 81 mg chewable tablet 81 mg PO DAILY #90 tabs 02/07/23 sertraline 50 mg tablet 75 mg PO BEDTIME #135 tabs 02/09/23 doxycycline hyclate 100 mg tablet 100 mg PO BID #20 tabs 02/14/23 mupirocin 2 % topical ointment 1 appl topical BID #15 grams 02/14/23 omeprazole 40 mg capsule,delayed 40 mg PO DAILY #30 caps 02/14/23 release sucralfate 1 gram tablet 1 g PO BID #60 tabs 02/14/23 tramadol 50 mg tablet 50 mg PO Q6H PRN pain #20 tabs 02/14/23 Allergies Allergy/AdvReac Type Severity Reaction Status Date / Time No Known Allergies Allergy Verified 01/30/23 14:38 [No Known Allergies*] Review of Systems Review of Systems: Yes all other systems are reviewed and are negative [facility] Past Medical History Medical History Alcohol abuse Amputation stump complication Amputation stump infection Arthritis CAD (coronary artery disease) Chronic pancreatitis Chronic 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 Diabetes mellitus with hyperglycemia, with long-term current use of insulin Diabetes mellitus, with long-term current use of insulin Dyslipidemia Erectile dysfunction Essential hypertension Failure of outpatient treatment Heartburn symptom Hyperlipidemia Increased BMI Intractable left heel pain Kidney calculus Major depression, recurrent Neuropathy PAD (peripheral artery disease) Type 2 diabetes mellitus with diabetic polyneuropathy Type 2 diabetes mellitus with hyperglycemia Surgical History History of right below knee amputation Hx of heart artery stent Hx of lithotripsy S/P debridement Status post below-knee amputation Status post laparoscopic cholecystectomy Family History Family History Mother CT (myocardial infarction), Onset Age: 64 Diabetes mellitus HTN (hypertension) Maternal Grandmother Diabetes mellitus Social History Social History Household Members: Spouse Household Members Other:: and daughter Housing: Apartment Do you presently have visiting nurse or other home services: No Alcohol intake: never Patient Tobacco Use Status: Never used Tobacco Tobacco use type: Cigarette Cigarette Packs Per Day: 1 Cigarettes Per Day: 20.0 Years Smoked: 28 Smoked in Last 30 Days: No e-Cigarette/Vaping Use: Never Used Second Hand Smoke Exposure: Yes Use of substances other than those prescribed or required for medical reasons: No Substance Use Type: Marijuana Advance Directives: Yes Advance Directives on File: Yes Advance Directives Date on File: 04/17/21 service: No Current occupational status: unemployed and disabled Cognitive needs: No Hearing needs: No Vision needs: No Physical Exam ED Vital Signs: Vital Signs - 24 hr 02/13/23 19:33 02/13/23 22:27 Temperature 98.1 F 98.1 F Pulse Rate 76 70 Respiratory Rate 18 17 Blood Pressure 191/80 H 149/68 H Pulse Oximetry 98 95 Oxygen Delivery Method Room Air Room Air BMI result Body Mass Index 32.5 Appearance: Alert. Oriented X3. No acute distress. Eyes: No pallor or icterus ENT: Pharynx normal. Oral Mucosa moist Neck: Normal inspection. Neck supple. CVS: Normal heart rate and rhythm. Pulses normal. Respiratory: No respiratory distress. Equal air entry bilateral, no wheezing/rales/rhonchi Abdomen: Soft and mild epigastric tenderness no rebound or guarding Bowel sounds are present, no mass palpable, no CVA tenderness Skin: Skin warm and dry. Normal skin color. Normal skin turgor. Extremities: No lower extremity edema. No calf tenderness right BKA, small nonhealing wound left lower leg without any surrounding cellulitis Neuro: Oriented X 3. No motor deficit. Course Course Course Narrative: RME- 57-year-old male presents for evaluation abdominal pain and left leg pain. Patient reports he has been treating for a cellulitis of the left lower extremity is on his last day of antibiotics. He believes the antibiotics are causing abdominal pain. He reports a history of pancreatitis and this feels similar. Plan for labs. Imaging will be deferred to primary provider Medications Administered Discontinued Medications Generic Name Dose Route Start Last Admin Trade Name Freq PRN Reason Stop Dose Admin Al Hydroxide/Mg Hydroxide 30 ml 02/13/23 23:55 02/14/23 00:17 Magnesium Hydrox/Alum Hydrox 30 Ml Oral.Susp PO 02/13/23 23:56 30 ml ONCE ONE Administration Famotidine 20 mg 02/13/23 23:55 02/14/23 00:20 Famotidine/Pf 20 Mg/2 Ml Vial IVPUSH 02/13/23 23:56 20 mg ONCE ONE Administration Sodium Chloride 1,000 mls @ 999 mls/hr 02/13/23 23:55 02/14/23 00:22 Ns IV 02/14/23 00:55 999 mls/hr .Q1H1M ONE Administration Iohexol 85 ml 02/14/23 00:36 02/14/23 00:36 Iohexol 350 Mg/Ml 100 Ml Infus..Btl IV 02/14/23 00:37 85 ml ONCE ONE Administration Morphine Sulfate 4 mg 02/13/23 23:55 02/14/23 00:20 Morphine Sulfate 4 Mg/Ml Cartridge IVPUSH 02/13/23 23:56 4 mg ONCE ONE Administration Protocol Ondansetron HCl 4 mg 02/13/23 23:55 02/14/23 00:20 Ondansetron Hcl 4 Mg/2 Ml Vial IVPUSH 02/13/23 23:56 4 mg ONCE ONE Administration Medical Decision Making Medical Decision Making [facility] Narrative: Patient with upper abdominal pain with history of pancreatitis CT scan negative for any pancreatic inflammation lipase only 94. Likely has gastritis will give him Prilosec already patient prescribed famotidine by PCP. Will add sucralfate also advised to follow with PCP will give antibiotic doxycycline and advised to use Bactroban ointment twice daily Lab Data [facility] Lab Attestation statement: I reviewed the patient's lab results. 02/13/23 19:56 02/13/23 19:56 Labs: Lab Results 02/13/23 02/13/23 02/13/23 Range/Units 19:56 19:56 19:56 WBC 9.2 (4.8-10.8) X10*3/uL RBC 5.11 (4.60-5.80) X10*6/uL Hgb 14.1 (14.0-18.0) g/dl Hct 43.7 (42.0-52.0) % MCV 85.5 (80.0-98.0) fL MCH 27.6 (27.0-33.0) pg MCHC 32.3 (31.0-36.0) g/dl RDW 14.2 (11.0-16.0) % Plt Count 217 (160-400) X10*3/uL MPV 10.8 (9.4-12.4) fL Immature Gran % (Auto) 0.8 H (0.0-0.4) % Neut % (Auto) 54.2 (45-73) % Lymph % (Auto) 27.3 (20-40) % Stewart % (Auto) 10.7 (2-11) % Eos % (Auto) 6.2 H (0-4) % Baso % (Auto) 0.8 (0-2) % Lymph # (Auto) 2.5 (1.2-4.9) X10*3/uL Stewart # (Auto) 1.0 (0.1-1.2) X10*3/uL Eos # (Auto) 0.6 H (0.0-0.4) X10*3/uL Baso # (Auto) 0.1 (0.0-0.2) X10*3/uL Abs Immat Gran (auto) 0.07 H (0.00-0.03) X10*3/uL Absolute Neuts (auto) 5.0 (2.0-8.3) x10*3/uL Absolute Nucleated RBC 0.000 (0.0-0.012) X10*3/uL Nucleated RBC % (auto) 0.0 (0.0-0.2) /100WBC Sodium 138 (135-145) mmol/L Potassium 4.3 (3.3-5.1) mmol/L Chloride 108 (96-108) mmol/L Carbon Dioxide 20 L (22-29) mmol/L Anion Gap 14 (12-20) BUN 15 (9-16) mg/dL Creatinine 0.88 (0.5-1.4) mg/dL Estim Creat Clear Calc 109.1 Estimated GFR > 60 POC Glucose (60-115) mg/dL Random Glucose 280 H (60-115) mg/dL Lactic Acid 1.8 (0.5-2.0) mmol/L Calcium 8.9 (8.4-10.2) mg/dL Total Bilirubin 0.2 (0.0-1.0) mg/dL AST 19 (5-37) U/L ALT 23 (0-40) U/L Alkaline Phosphatase 75 (39-117) U/L Total Protein 7.4 (6.5-8.0) g/dL Albumin 3.6 (3.5-5.0) g/dL Lipase 94 H (8-78) U/L 06/19/23 Range/Units 22:30 WBC (4.8-10.8) X10*3/uL RBC (4.60-5.80) X10*6/uL Hgb (14.0-18.0) g/dl Hct (42.0-52.0) % MCV (80.0-98.0) fL MCH (27.0-33.0) pg MCHC (31.0-36.0) g/dl RDW (11.0-16.0) % Plt Count (160-400) X10*3/uL MPV (9.4-12.4) fL Immature Gran % (Auto) (0.0-0.4) % Neut % (Auto) (45-73) % Lymph % (Auto) (20-40) % Stewart % (Auto) (2-11) % Eos % (Auto) (0-4) % Baso % (Auto) (0-2) % Lymph # (Auto) (1.2-4.9) X10*3/uL Stewart # (Auto) (0.1-1.2) X10*3/uL Eos # (Auto) (0.0-0.4) X10*3/uL Baso # (Auto) (0.0-0.2) X10*3/uL Abs Immat Gran (auto) (0.00-0.03) X10*3/uL Absolute Neuts (auto) (2.0-8.3) x10*3/uL Absolute Nucleated RBC (0.0-0.012) X10*3/uL Nucleated RBC % (auto) (0.0-0.2) /100WBC Sodium (135-145) mmol/L Potassium (3.3-5.1) mmol/L Chloride (96-108) mmol/L Carbon Dioxide (22-29) mmol/L Anion Gap (12-20) BUN (9-16) mg/dL Creatinine (0.5-1.4) mg/dL Estim Creat Clear Calc Estimated GFR POC Glucose 201 H (60-115) mg/dL Random Glucose (60-115) mg/dL Lactic Acid (0.5-2.0) mmol/L Calcium (8.4-10.2) mg/dL Total Bilirubin (0.0-1.0) mg/dL AST (5-37) U/L ALT (0-40) U/L Alkaline Phosphatase (39-117) U/L Total Protein (6.5-8.0) g/dL Albumin (3.5-5.0) g/dL Lipase (8-78) U/L Discharge Plan Discharge Clinical Impression: Gastritis Patient Disposition: Home, Self-Care Instructions: Gastritis (ED) Additional Instructions: Continue famotidine start taking sucralfate twice daily Also will give you Prilosec 40 mg daily Avoid fried food Clear liquids advanced as tolerated Pain medication as prescribed Report to the ER if worsening of pain/vomiting Will give antibiotics for nonhealing wound an ointment twice a day Prescriptions: New sucralfate 1 gram tablet 1 g PO BID Qty: 60 0RF omeprazole 40 mg capsule,delayed release(DR/EC) 40 mg PO DAILY Qty: 30 0RF doxycycline hyclate 100 mg tablet 100 mg PO BID Qty: 20 0RF mupirocin 2 % ointment 1 appl topical BID Qty: 15 0RF tramadol 50 mg tablet 50 mg PO Q6H PRN (Reason: pain) Qty: 20 0RF No Action (DME) Bedside commode See Rx Instructions .Route .MEDSUPPLY Qty: 1 0RF Rx Instructions: As directed (DME) walker with wheels See Rx Instructions .Route .MEDSUPPLY Qty: 1 0RF Rx Instructions: As directed (DME) pen needle, diabetic [BD Ultra-Fine Short Pen Needle] 31 gauge x 5/16 needle See Rx Instructions .ROUTE .COMPLEX Qty: 100 5RF Dose Instruction: USE MARÍA LO INDICADO BENNETT VECES AL LIZZIE ANTES DE LAS COMIDAS Rx Instructions: USE MARÍA LO INDICADO BENNETT VECES AL LIZZIE ANTES DE LAS COMIDAS (DME) recliner See Rx Instructions .Route .MEDSUPPLY Qty: 1 0RF Rx Instructions: As directed (DME) FreeStyle Frank 2 [place] Misc See Rx Instructions .Route Qty: 1 0RF Rx Instructions: As directed gabapentin 600 mg tablet 600 mg PO TID Qty: 90 4RF insulin glargine [Lantus Solostar U-100 Insulin] 100 unit/mL (3 mL) insulin pen 24 unit subcut BEDTIME Qty: 15 6RF insulin lispro 100 unit/mL insulin pen 17 unit subcut TIDAC Qty: 15 4RF Protocol: Insulin Correction Scale Less than or equal to 110 ---- Give (units): 0 111 to 150 Give (units): 0 151 to 200 Give (units): 2 201 to 250 Give (units): 4 251 to 300 Give (units): 6 301 to 350 Give (units): 8 Greater than 350 Give (units): 10 Call MD if Blood Glucose > : 350 famotidine 40 mg tablet 40 mg PO DAILY PRN (Reason: heartburn) Qty: 90 0RF metoprolol succinate 50 mg tablet extended release 24 hr 50 mg PO DAILY Qty: 90 1RF aspirin 81 mg tablet,chewable 81 mg PO DAILY Qty: 90 1RF sertraline 50 mg tablet 75 mg PO BEDTIME Qty: 135 1RF clopidogrel 75 mg tablet 75 mg PO DAILY acetaminophen 500 mg Tablet 1,000 mg PO BID PRN (Reason: Pain, Mild) sulfamethoxazole-trimethoprim [Bactrim DS] 800-160 mg tablet 1 tab PO Q12H 10 Days Qty: 20 0RF (DME) blood-glucose meter [FreeStyle Lite Meter] Kit See Rx Instructions .Route Rx Instructions: As directed (DME) FreeStyle Lite Strips Strip See Rx Instructions .Route Rx Instructions: As directed (DME) FreeStyle Frank 2 Sensor Kit See Rx Instructions .Route Qty: 2 8RF Rx Instructions: As directed change every 14 days
[2023-02-13 20:01] LABS: MANUAL DIFF FLAG NO
[2023-02-13 20:06] LABS: Basophils Absolute Auto 0.1 X10*3/uL (0.0-0.2); Basophils Percent Auto 0.8 % (0-2); Eosinophils Absolute Auto 0.6 X10*3/uL (0.0-0.4); Eosinophils Percent Auto 6.2 % (0-4); Hematocrit 43.7 % (42.0-52.0); Hemoglobin 14.1 g/dl (14.0-18.0); Imm Gran Abs Auto 0.07 X10*3/uL (0.00-0.03); Imm Gran Pct Auto 0.8 % (0.0-0.4); Lymphocytes Absolute Auto 2.5 X10*3/uL (1.2-4.9); Lymphocytes Percent Auto 27.3 % (20-40); Mean Corpuscular HGB Conc 32.3 g/dl (31.0-36.0); Mean Corpuscular Hemoglobin 27.6 pg (27.0-33.0); Mean Corpuscular Volume 85.5 fL (80.0-98.0); Mean Platelet Volume 10.8 fL (9.4-12.4); Monocytes Percent Auto 10.7 % (2-11); Neutrophils Percent Auto 54.2 % (45-73); Platelet Count 217 X10*3/uL (160-400); Red Blood Count 5.11 X10*6/uL (4.60-5.80); Red Cell Distribution Width 14.2 % (11.0-16.0); White Blood Count 9.2 X10*3/uL (4.8-10.8)
[2023-02-13 20:12] LABS: Lactic Acid 1.8 mmol/L (0.5-2.0)
[2023-02-13 20:15] LABS: Alanine Aminotransferase 23 U/L (0-40); Albumin Level 3.6 g/dL (3.5-5.0); Alkaline Phosphatase 75 U/L (39-117); Anion Gap 14 (12-20); Aspartate Amino Transferase 19 U/L (5-37); Bilirubin Total 0.2 mg/dL (0.0-1.0); Blood Urea Nitrogen 15 mg/dL (9-16); Calcium 8.9 mg/dL (8.4-10.2); Carbon Dioxide 20 mmol/L (22-29); Chloride 108 mmol/L (96-108); Creatinine Clr Calc Pharmacy 109.1; Estimated Glomerular Filt Rate > 60; Glucose Random 280 mg/dL (60-115); Lipase 94 U/L (8-78); Potassium 4.3 mmol/L (3.3-5.1); Sodium 138 mmol/L (135-145); Total Protein 7.4 g/dL (6.5-8.0)
[2023-02-13 22:27] VITALS: BP 149/68; PULSE 70; RESP 17; TEMP 36.7; O2SAT 95
[2023-02-13 22:34] LABS: Glucose, Whole Blood 201 mg/dL (60-115)
--- NOTE | 2023-02-13 22:42 | PC.NURSE ---
Assumed care of pt. Pt lying on stretcher, R BKA prosthetic off and at bedside. Assessed as documented. BC's held for provider assessment. pt sts takes Ibu 800 PRN, last taken this AM for pain. VSS at this time, pending MD evaluation.
[2023-02-14] MEDS: Magnesium Hydrox/Alum Hydrox 30 ML ORAL.SUSP PO (00:17)
[2023-02-14] MEDS: Famotidine/PF 20 MG/2 ML VIAL IVPUSH (00:20)
[2023-02-14] MEDS: Morphine Sulfate 4 MG/ML CARTRIDGE IVPUSH (00:20)
[2023-02-14] MEDS: ondansetron HCL 4 MG/2 ML VIAL IVPUSH (00:20)
[2023-02-14] MEDS: 0.9 % Sodium Chloride 1,000 ML 999 ML IV (00:22)
[2023-02-14] MEDS: iohexoL 350 MG/ML 100 ML INFUS..BTL 85 ML IV (00:36)
== END 2023-02-14 01:54 | disposition home or self-care (01) ==
PROVIDERS: Physician Assistant; Emergency Provider Internal Medicine; PCP Internal Medicine
DX: K29.70 Gastritis, unspecified, without bleeding (principal); R10.10 Upper abdominal pain, unspecified; M79.605 Pain in left leg; Z79.899 Other long term (current) drug therapy; F17.210 Nicotine dependence, cigarettes, uncomplicated; Z71.6 Tobacco abuse counseling
CPT/HCPCS: 36415; 74177; 80053; 82947; 83605; 83690; 85025; 87040; 96361; 96374; 96375; 99284; J2270; J2405; Q9967

== ENCOUNTER 2023-03-06 18:28 | Emergency (ER) | payer OTHER, SELFPAY ==
[2023-03-06] VITALS (10 sets, daily range): BP systolic 115–142; BP diastolic 56–72; PULSE 66–77; RESP 17–24; TEMP 36.6–36.7; O2SAT 94–100; BMI 34.2; BMI 35.1
--- NOTE | 2023-03-06 | ECG_ITS ---
Test Reason : CHESTPAIN Blood Pressure : / mmHG Vent. Rate : 073 BPM Atrial Rate : 073 BPM P-R Int : 194 ms QRS Dur : 138 ms QT Int : 426 ms P-R-T Axes : 027 -75 173 degrees QTc Int : 469 ms Normal sinus rhythm Right bundle branch block Left anterior fascicular block Bifascicular block T wave abnormality, consider inferolateral ischemia Abnormal ECG When compared with ECG of 31-MAR-2022 17:25, T wave inversion now evident in Lateral leads Referred By: Generic ED Physician Electronically Signed By:SAUL MARCH MD
--- NOTE | ~2023-03-06 | XR_ITS ---
EXAMINATION: PORTABLE CHEST 1 VIEW CLINICAL INFORMATION: sob. COMPARISON: 05/18/2020. TECHNIQUE: Portable frontal view of the chest was obtained. FINDINGS: The lungs are well expanded. No focal infiltrate, effusion, edema, or pneumothorax. Cardiac and mediastinal silhouettes are within normal limits for technique. No acute bony abnormality seen. XR/XR chest 1V IMPRESSION: No evidence of acute disease.
--- NOTE | ~2023-03-06 | CT_ITS ---
CT/CT angio chest PE protocol IMPRESSION: 1. No evidence for pulmonary emboli. 2. Patchy groundglass airspace disease bilaterally. Infectious or inflammatory causes would be favored. VTE: Negative EXAMINATION: CTA CHEST PE STUDY CLINICAL INFORMATION: Acute shortness of breath ?pe COMPARISON: Visualized lung bases on the abdominal CT scan TECHNIQUE: Prior to contrast administration, noncontrast localization images were obtained. After the administration of 65 mL of Omnipaque nonionic IV contrast, contiguous thin slice helical images were obtained through the thorax. Reformatted MIP images in the coronal and sagittal planes were obtained at the acquisition workstation. This CT examination was performed using dose optimization techniques as appropriate, variously including the following: *Automated exposure control *Adjustment of mA and/or kV according to patient size (this includes techniques or standardized protocols for targeted exams where dose is matched to indication/reason for exam; i.e. extremities or head) *Use of iterative reconstruction technique DLP: 448 mGy-cm. FINDINGS: The bolus timing on this study was acceptable for visualization of the pulmonary arterial tree. There are no intraluminal pulmonary arterial filling defects present to suggest pulmonary embolism. Patchy groundglass airspace disease seen bilaterally. No dense consolidation or air bronchograms. Central airways are grossly unremarkable. No abnormal pulmonary nodules or masses are appreciated. No significant hilar or mediastinal adenopathy. There is no evidence of pleural effusion or pneumothorax. The heart is normal in size. No evidence of ventricular septal bowing or right heart strain. Extensive coronary artery calcification present. Otherwise the mediastinum is unremarkable. There is no pericardial effusion or pericardial thickening. Bilateral gynecomastia Limited evaluation of the upper abdominal viscera diffuse fatty infiltration liver. Gallbladder surgically absent.
--- NOTE | 2023-03-06 19:07 | MHC.EDTECH ---
Assumed care of pt as educational technologist at 1900 No distress at this
--- NOTE | 2023-03-06 19:17 | PC.NURSE ---
Assumed care of pt at this time. Here for chest pain and shortness of breath requiring 3L of oxygen after desaturation to 80's. Alert, oriented x4. Hx BKA to right lower extremity. 20 G noted to right AC per EMS. Standing protocol ordered, blood drawn and sent to lab.
[2023-03-06 19:22] LABS: MANUAL DIFF FLAG NO
[2023-03-06 19:24] LABS: Basophils Absolute Auto 0.1 X10*3/uL (0.0-0.2); Basophils Percent Auto 0.7 % (0-2); Eosinophils Absolute Auto 0.6 X10*3/uL (0.0-0.4); Eosinophils Percent Auto 6.8 % (0-4); Hematocrit 40.2 % (42.0-52.0); Hemoglobin 13.1 g/dl (14.0-18.0); Imm Gran Abs Auto 0.07 X10*3/uL (0.00-0.03); Imm Gran Pct Auto 0.8 % (0.0-0.4); Lymphocytes Absolute Auto 2.4 X10*3/uL (1.2-4.9); Lymphocytes Percent Auto 27.1 % (20-40); Mean Corpuscular HGB Conc 32.6 g/dl (31.0-36.0); Mean Corpuscular Hemoglobin 27.9 pg (27.0-33.0); Mean Corpuscular Volume 85.5 fL (80.0-98.0); Mean Platelet Volume 11.2 fL (9.4-12.4); Monocytes Absolute Auto 0.5 X10*3/uL (0.1-1.2); Monocytes Percent Auto 5.8 % (2-11); Neutrophils Absolute Auto 5.2 x10*3/uL (2.0-8.3); Neutrophils Percent Auto 58.8 % (45-73); Platelet Count 199 X10*3/uL (160-400); Red Cell Distribution Width 14.4 % (11.0-16.0); White Blood Count 8.9 X10*3/uL (4.8-10.8)
--- NOTE | 2023-03-06 19:27 | ED_ITS ---
HPI - SOB/Dyspnea General Chief Complaint: Dyspnea Stated Complaint: SOB AND CHEST PAIN Time Seen by Provider: 03/06/23 19:26 Source: patient Mode of arrival: ambulatory Limitations: no limitations History of Present Illness HPI Narrative: Patient 87 years old with history of coronary disease status post stenting RCA few years ago, diabetes, hypertension, right BKA, peripheral vascular disease none baby aspirin does not have any lung issues in the past never used any inhaler no history of sleep apnea was resting at home all of a sudden noticed bilateral chest tightness with shortness of breath was saturating 80% on EMS arrival no cough no fever no chills no history of similar shortness of breath in the past patient was resting at that time at this time patient does not feel much shortness of breath but feels slightly tightness on the left side of the chest Related Data Home Medications Medication Instructions Recorded Confirmed acetaminophen 500 mg tablet 1,000 mg PO BID PRN Pain, Mild 04/10/22 04/10/22 clopidogrel 75 mg tablet 75 mg PO DAILY 04/10/22 04/10/22 blood sugar diagnostic (FreeStyle 12/01/22 Lite Strips) blood-glucose meter (FreeStyle 12/01/22 Lite Meter kit) Previous Rx's Medication Instructions Recorded Bedside commode #1 ea 04/18/22 walker with wheels #1 ea 08/19/22 pen needle, diabetic 31 gauge x #100 ea 10/20/22/ (BD Ultra-Fine Short Pen Needle) recliner #1 ea 11/23/22 flash glucose scanning reader #1 ea 12/02/22 (FreeStyle Frank 2 [place]) gabapentin 600 mg tablet 600 mg PO TID #90 tabs 12/16/22 insulin glargine 100 unit/mL (3 24 unit (0.24 mL) subcut BEDTIME 01/19/23 mL) subcutaneous pen (Lantus #15 mL Solostar U-100 Insulin) insulin lispro 100 unit/mL 17 unit subcut TIDAC #15 mL 01/20/23 subcutaneous pen metoprolol succinate 50 mg 50 mg PO DAILY #90 tabs 01/27/23 tablet,extended release 24 hr sulfamethoxazole 800 1 tab PO Q12H 10 days #20 tabs 01/30/23 mg-trimethoprim 160 mg tablet (Bactrim DS) aspirin 81 mg chewable tablet 81 mg PO DAILY #90 tabs 02/07/23 sertraline 50 mg tablet 75 mg PO BEDTIME #135 tabs 02/09/23 doxycycline hyclate 100 mg tablet 100 mg PO BID #20 tabs 02/14/23 mupirocin 2 % topical ointment 1 appl topical BID #15 grams 02/14/23 omeprazole 40 mg capsule,delayed 40 mg PO DAILY #30 caps 02/14/23 release sucralfate 1 gram tablet 1 g PO BID #60 tabs 02/14/23 tramadol 50 mg tablet 50 mg PO Q6H PRN pain #20 tabs 02/14/23 famotidine 40 mg tablet 40 mg PO DAILY PRN heartburn #90 02/19/23 tabs flash glucose sensor (FreeStyle #2 ea 03/06/23 Frank 2 Sensor kit) Allergies Allergy/AdvReac Type Severity Reaction Status Date / Time No Known Allergies Allergy Verified 01/30/23 14:38 [No Known Allergies*] Review of Systems Review of Systems: Yes all other systems are reviewed and are negative FOR[facility]LY [facility] Past Medical History Medical History Alcohol abuse Amputation stump complication Amputation stump infection Arthritis CAD (coronary artery disease) Chronic pancreatitis Chronic 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 Diabetes mellitus with hyperglycemia, with long-term current use of insulin Diabetes mellitus, with long-term current use of insulin Dyslipidemia Erectile dysfunction Essential hypertension Failure of outpatient treatment Heartburn symptom Hyperlipidemia Increased BMI Intractable left heel pain Kidney calculus Major depression, recurrent Neuropathy PAD (peripheral artery disease) Type 2 diabetes mellitus with diabetic polyneuropathy Type 2 diabetes mellitus with hyperglycemia Surgical History History of right below knee amputation Hx of heart artery stent Hx of lithotripsy S/P debridement Status post below-knee amputation Status post laparoscopic cholecystectomy Family History Family History Mother [place] (myocardial infarction), Onset Age: 64 Diabetes mellitus HTN (hypertension) Maternal Grandmother Diabetes mellitus Social History Social History Household Members: Spouse Household Members Other:: and daughter Housing: Apartment Do you presently have visiting nurse or other home services: No Alcohol intake: never Patient Tobacco Use Status: Never used Tobacco Tobacco use type: Cigarette Cigarette Packs Per Day: 1 Cigarettes Per Day: 20.0 Years Smoked: 28 e-Cigarette/Vaping Use: Never Used Second Hand Smoke Exposure: Yes Substance Use Type: Marijuana Advance Directives: Yes Advance Directives on File: Yes Advance Directives Date on File: 04/17/21 service: No Current occupational status: unemployed and disabled Cognitive needs: No Hearing needs: No Vision needs: No Physical Exam Vital Signs: Vital Signs: Last Vital Signs Temp 97.9 F 03/06/23 23:04 Pulse 71 03/07/23 00:45 Resp 20 03/07/23 00:45 BP 138/88 03/07/23 00:45 Pulse Ox 97 03/07/23 00:45 O2 Del Method Nasal Cannula 03/07/23 00:45 O2 Flow Rate 3 03/07/23 00:45 Oxygen Flow Rate 4 03/06/23 18:40 BMI result Body Mass Index 35.1 Appearance: Alert. Oriented X3. No acute distress. Eyes: No pallor or icterus ENT: Pharynx normal. Oral Mucosa moist Neck: Normal inspection. Neck supple. CVS: Normal heart rate and rhythm. Pulses normal. Respiratory: No respiratory distress. Equal air entry bilateral, no wheezing/rales/rhonchi Abdomen: Soft and nontender. Bowel sounds are present, no mass palpable, Skin: Skin warm and dry. Normal skin color. Normal skin turgor. Extremities: Right BKA Neuro: Oriented X 3. No motor deficit. No sensory deficit.No cerebellar signs , cranial nerves II-XII intact Medications Administered Discontinued Medications Generic Name Dose Route Start Last Admin Trade Name Freq PRN Reason Stop Dose Admin Heparin Sodium (Porcine) 5,000 unit 03/06/23 20:34 03/06/23 20:58 Heparin Sodium,Porcine 5,000 Unit/Ml Vial IVPUSH 03/06/23 20:35 5,000 unit ONCE ONE Administration Heparin Sodium/Sodium Chloride 25,000 unit in 250 mls @ 0 mls/hr 03/06/23 21:45 03/06/23 21:56 Heparin Sodium,Porcine/1/2ns IVCONT 9.28 units/kg/hr .Q0M SHELLY 10 mls/hr Administration Protocol Per Protocol Nitroglycerin/Dextrose 100 mg in 250 mls @ 0 mls/hr 03/06/23 22:00 03/06/23 22:17 Nitroglycerin/D5w IVCONT 10 mcg/min .Q0M SHELLY 1.5 mls/hr Administration Protocol Per Protocol Iohexol 100 ml 03/06/23 20:57 03/06/23 20:58 Iohexol 350 Mg/Ml 100 Ml Infus..Btl IV 03/06/23 20:58 65 ml ONCE ONE Administration Nitroglycerin 1 inch 03/06/23 20:37 03/06/23 20:59 Nitroglycerin 2 % Oint 1 Gm Packet TRANSDERMA 03/06/23 20:38 1 inch ONCE ONE Administration Medical Decision Making Medical Decision Making [facility] Narrative: Patient with acute onset of shortness of breath with chest discomfort status post RCA stent about 4 years ago with history of diabetes ,hypertension peripheral artery disease status post right BKA on Plavix and aspirin. During stay in the ER patient continued to have chest pain which has improved after nitro paste CTA chest was done which was negative for PE high sensitive troponin was elevated to 1976.9 BNP of 176 ED showed DP inversion in lead 1 lead aVL V4 V5 V6. case discussed with [facility] Specialist Dr. Collier advised to continue heparin started on nitro drip transferred to [facility] case discussed with director franchise sales at [facility] Dr. Jasso at [facility] accepted the patient 23:55 patient nitro drip 10 mics per min no chest pain rate to be transferred to [facility] Differential Diagnosis Differential Diagnoses: The differential diagnosis associated with the presentation includes Non-STEMI/times/PE/CHF Lab Data [facility] Lab Attestation statement: I reviewed the patient's lab results. 03/06/23 19:17 03/06/23 19:17 Labs: Lab Results 03/06/23 03/06/23 03/06/23 Range/Units 19:17 19:17 19:17 WBC 8.9 (4.8-10.8) X10*3/uL RBC 4.70 (4.60-5.80) X10*6/uL Hgb 13.1 L (14.0-18.0) g/dl Hct 40.2 L (42.0-52.0) % MCV 85.5 (80.0-98.0) fL MCH 27.9 (27.0-33.0) pg MCHC 32.6 (31.0-36.0) g/dl RDW 14.4 (11.0-16.0) % Plt Count 199 (160-400) X10*3/uL MPV 11.2 (9.4-12.4) fL Immature Gran % (Auto) 0.8 H (0.0-0.4) % Neut % (Auto) 58.8 (45-73) % Lymph % (Auto) 27.1 (20-40) % [place] % (Auto) 5.8 (2-11) % Eos % (Auto) 6.8 H (0-4) % Baso % (Auto) 0.7 (0-2) % Lymph # (Auto) 2.4 (1.2-4.9) X10*3/uL [place] # (Auto) 0.5 (0.1-1.2) X10*3/uL Eos # (Auto) 0.6 H (0.0-0.4) X10*3/uL Baso # (Auto) 0.1 (0.0-0.2) X10*3/uL Abs Immat Gran (auto) 0.07 H (0.00-0.03) X10*3/uL Absolute Neuts (auto) 5.2 (2.0-8.3) x10*3/uL Absolute Nucleated RBC 0.000 (0.0-0.012) X10*3/uL Nucleated RBC % (auto) 0.0 (0.0-0.2) /100WBC PT (10.0-13.1) SEC INR (0.9-1.1) APTT (26.0-36.4) SEC D-Dimer High Sensitivty VBG pH (7.32-7.43) VBG pCO2 mmHg VBG pO2 mmHg VBG HCO3 (22-26) mmol/L VBG O2 Saturation % VBG Base Excess mmol/L Sodium 137 (135-145) mmol/L Potassium 3.8 (3.3-5.1) mmol/L Chloride 104 (96-108) mmol/L Carbon Dioxide 23 (22-29) mmol/L Anion Gap 14 (12-20) BUN 15 (9-16) mg/dL Creatinine 1.08 (0.5-1.4) mg/dL Estim Creat Clear Calc 91.1 Estimated GFR > 60 Random Glucose 298 H (60-115) mg/dL Calcium 8.8 (8.4-10.2) mg/dL Total Bilirubin 0.2 (0.0-1.0) mg/dL AST 23 (5-37) U/L ALT 23 (0-40) U/L Alkaline Phosphatase 68 (39-117) U/L Troponin I High Sens 1976.9 H* (<3.5-35.0) ng/L B-Natriuretic Peptide (<100) pg/mL Total Protein 6.5 (6.5-8.0) g/dL Albumin 3.1 L (3.5-5.0) g/dL COVID-19 ([facility]) (Negative) COVID-19 Clin Com 03/06/23 03/06/23 03/06/23 Range/Units 19:17 19:56 20:04 WBC (4.8-10.8) X10*3/uL RBC (4.60-5.80) X10*6/uL Hgb (14.0-18.0) g/dl Hct (42.0-52.0) % MCV (80.0-98.0) fL MCH (27.0-33.0) pg MCHC (31.0-36.0) g/dl RDW (11.0-16.0) % Plt Count (160-400) X10*3/uL MPV (9.4-12.4) fL Immature Gran % (Auto) (0.0-0.4) % Neut % (Auto) (45-73) % Lymph % (Auto) (20-40) % [place] % (Auto) (2-11) % Eos % (Auto) (0-4) % Baso % (Auto) (0-2) % Lymph # (Auto) (1.2-4.9) X10*3/uL [place] # (Auto) (0.1-1.2) X10*3/uL Eos # (Auto) (0.0-0.4) X10*3/uL Baso # (Auto) (0.0-0.2) X10*3/uL Abs Immat Gran (auto) (0.00-0.03) X10*3/uL Absolute Neuts (auto) (2.0-8.3) x10*3/uL Absolute Nucleated RBC (0.0-0.012) X10*3/uL Nucleated RBC % (auto) (0.0-0.2) /100WBC PT (10.0-13.1) SEC INR (0.9-1.1) APTT (26.0-36.4) SEC D-Dimer High Sensitivty Cancelled VBG pH 7.36 (7.32-7.43) VBG pCO2 46 mmHg VBG pO2 46 mmHg VBG HCO3 26 (22-26) mmol/L VBG O2 Saturation 72.0 % VBG Base Excess 0.6 mmol/L Sodium (135-145) mmol/L Potassium (3.3-5.1) mmol/L Chloride (96-108) mmol/L Carbon Dioxide (22-29) mmol/L Anion Gap (12-20) BUN (9-16) mg/dL Creatinine (0.5-1.4) mg/dL Estim Creat Clear Calc Estimated GFR Random Glucose (60-115) mg/dL Calcium (8.4-10.2) mg/dL Total Bilirubin (0.0-1.0) mg/dL AST (5-37) U/L ALT (0-40) U/L Alkaline Phosphatase (39-117) U/L Troponin I High Sens (<3.5-35.0) ng/L B-Natriuretic Peptide 176 H (<100) pg/mL Total Protein (6.5-8.0) g/dL Albumin (3.5-5.0) g/dL COVID-19 ([facility]) (Negative) COVID-19 Clin Com 03/06/23 03/06/23 Range/Units 21:31 22:15 WBC (4.8-10.8) X10*3/uL RBC (4.60-5.80) X10*6/uL Hgb (14.0-18.0) g/dl Hct (42.0-52.0) % MCV (80.0-98.0) fL MCH (27.0-33.0) pg MCHC (31.0-36.0) g/dl RDW (11.0-16.0) % Plt Count (160-400) X10*3/uL MPV (9.4-12.4) fL Immature Gran % (Auto) (0.0-0.4) % Neut % (Auto) (45-73) % Lymph % (Auto) (20-40) % [place] % (Auto) (2-11) % Eos % (Auto) (0-4) % Baso % (Auto) (0-2) % Lymph # (Auto) (1.2-4.9) X10*3/uL [place] # (Auto) (0.1-1.2) X10*3/uL Eos # (Auto) (0.0-0.4) X10*3/uL Baso # (Auto) (0.0-0.2) X10*3/uL Abs Immat Gran (auto) (0.00-0.03) X10*3/uL Absolute Neuts (auto) (2.0-8.3) x10*3/uL Absolute Nucleated RBC (0.0-0.012) X10*3/uL Nucleated RBC % (auto) (0.0-0.2) /100WBC PT 10.7 (10.0-13.1) SEC INR 0.9 (0.9-1.1) APTT > 200.0 H* (26.0-36.4) SEC D-Dimer High Sensitivty VBG pH (7.32-7.43) VBG pCO2 mmHg VBG pO2 mmHg VBG HCO3 (22-26) mmol/L VBG O2 Saturation % VBG Base Excess mmol/L Sodium (135-145) mmol/L Potassium (3.3-5.1) mmol/L Chloride (96-108) mmol/L Carbon Dioxide (22-29) mmol/L Anion Gap (12-20) BUN (9-16) mg/dL Creatinine (0.5-1.4) mg/dL Estim Creat Clear Calc Estimated GFR Random Glucose (60-115) mg/dL Calcium (8.4-10.2) mg/dL Total Bilirubin (0.0-1.0) mg/dL AST (5-37) U/L ALT (0-40) U/L Alkaline Phosphatase (39-117) U/L Troponin I High Sens (<3.5-35.0) ng/L B-Natriuretic Peptide (<100) pg/mL Total Protein (6.5-8.0) g/dL Albumin (3.5-5.0) g/dL COVID-19 ([facility]) Negative (Negative) COVID-19 Clin Com See Note Independent Interpretation I performed an independent interpretation of an: EKG Interpretation: Normal sinus rhythm heart rate 73 beats per minute admitted branch block T inversion in inferolateral leads. Critical Care Time Critical Care Time Critical Care Time: Yes Total Critical Care Time: 90 Attestation: The patient was critically ill with a high probability of imminent or life threatening deterioration. I spent greater than 100 minutes of discontinuous time evaluating the patient,delivering critical care at the bedside, discussing and evaluating pertinent data with consultants. Critical care time does not include time spent performing separately billable procedures or teaching. Total time spent performing critical care was 90 minutes. Discharge Plan Discharge Clinical Impression: Non-ST elevated myocardial infarction (non-STEMI) Patient Disposition: [facility] Transfer Details: [facility] Dr Lizarraga Prescriptions: No Action (DME) Bedside commode See Rx Instructions .Route .MEDSUPPLY Qty: 1 0RF Rx Instructions: As directed (DME) walker with wheels See Rx Instructions .Route .MEDSUPPLY Qty: 1 0RF Rx Instructions: As directed (DME) pen needle, diabetic [BD Ultra-Fine Short Pen Needle] 31 gauge x 5/16 needle See Rx Instructions .ROUTE .COMPLEX Qty: 100 5RF Dose Instruction: USE MARÍA LO INDICADO BENNETT VECES AL LIZZIE ANTES DE LAS COMIDAS Rx Instructions: USE MARÍA LO INDICADO BENNETT VECES AL LIZZIE ANTES DE LAS COMIDAS (DME) recliner See Rx Instructions .Route .MEDSUPPLY Qty: 1 0RF Rx Instructions: As directed (DME) FreeStyle Frank 2 [place] Misc See Rx Instructions .Route Qty: 1 0RF Rx Instructions: As directed gabapentin 600 mg tablet 600 mg PO TID Qty: 90 4RF insulin glargine [Lantus Solostar U-100 Insulin] 100 unit/mL (3 mL) insulin pen 24 unit subcut BEDTIME Qty: 15 6RF insulin lispro 100 unit/mL insulin pen 17 unit subcut TIDAC Qty: 15 4RF Protocol: Insulin Correction Scale Less than or equal to 110 ---- Give (units): 0 111 to 150 Give (units): 0 151 to 200 Give (units): 2 201 to 250 Give (units): 4 251 to 300 Give (units): 6 301 to 350 Give (units): 8 Greater than 350 Give (units): 10 Call MD if Blood Glucose > : 350 metoprolol succinate 50 mg tablet extended release 24 hr 50 mg PO DAILY Qty: 90 1RF aspirin 81 mg tablet,chewable 81 mg PO DAILY Qty: 90 1RF sertraline 50 mg tablet 75 mg PO BEDTIME Qty: 135 1RF famotidine 40 mg tablet 40 mg PO DAILY PRN (Reason: heartburn) Qty: 90 0RF (DME) FreeStyle Frank 2 Sensor Kit See Rx Instructions .Route Qty: 2 8RF Rx Instructions: As directed change every 14 days clopidogrel 75 mg tablet 75 mg PO DAILY acetaminophen 500 mg Tablet 1,000 mg PO BID PRN (Reason: Pain, Mild) sucralfate 1 gram tablet 1 g PO BID Qty: 60 0RF omeprazole 40 mg capsule,delayed release(DR/EC) 40 mg PO DAILY Qty: 30 0RF doxycycline hyclate 100 mg tablet 100 mg PO BID Qty: 20 0RF mupirocin 2 % ointment 1 appl topical BID Qty: 15 0RF tramadol 50 mg tablet 50 mg PO Q6H PRN (Reason: pain) Qty: 20 0RF sulfamethoxazole-trimethoprim [Bactrim DS] 800-160 mg tablet 1 tab PO Q12H 10 Days Qty: 20 0RF (DME) blood-glucose meter [FreeStyle Lite Meter] Kit See Rx Instructions .Route Rx Instructions: As directed (DME) FreeStyle Lite Strips Strip See Rx Instructions .Route Rx Instructions: As directed Interventions: Acute Care Transfer Worksheet (ED) Last Done: 03/07/23 00:53 Discharge Date/Time: 03/07/23 00:54
[2023-03-06 20:00] LABS: Alanine Aminotransferase 23 U/L (0-40); Albumin Level 3.1 g/dL (3.5-5.0); Alkaline Phosphatase 68 U/L (39-117); Anion Gap 14 (12-20); Aspartate Amino Transferase 23 U/L (5-37); Bilirubin Total 0.2 mg/dL (0.0-1.0); Blood Urea Nitrogen 15 mg/dL (9-16); Calcium 8.8 mg/dL (8.4-10.2); Carbon Dioxide 23 mmol/L (22-29); Chloride 104 mmol/L (96-108); Creatinine Clr Calc Pharmacy 91.1; Estimated Glomerular Filt Rate > 60; Glucose Random 298 mg/dL (60-115); Potassium 3.8 mmol/L (3.3-5.1); Sodium 137 mmol/L (135-145); Total Protein 6.5 g/dL (6.5-8.0)
[2023-03-06 20:03] LABS: B Type Natriuretic Peptide 176 pg/mL (<100)
[2023-03-06 20:20] LABS: VBG Base Excess 0.6 mmol/L; VBG HCO3 26 mmol/L (22-26); VBG pCO2 46 mmHg; VBG pH 7.36 (7.32-7.43); VBG pO2 46 mmHg
[2023-03-06 20:36] LABS: Troponin-I High Sensitivity 1976.9 ng/L (<3.5-35.0)
--- NOTE | 2023-03-06 20:37 | ECG_ITS ---
Test Reason : HIGH TROPON Blood Pressure : / mmHG Vent. Rate : 073 BPM Atrial Rate : 073 BPM P-R Int : 200 ms QRS Dur : 140 ms QT Int : 428 ms P-R-T Axes : 020 -70 168 degrees QTc Int : 471 ms Normal sinus rhythm Right bundle branch block Left anterior fascicular block Bifascicular block ST-T wave changes suggestive of ischemia in inferolateral leads Abnormal ECG When compared with ECG of 06-MAR-2023 19:13, No significant change was found Referred By: Joseph Hooper Electronically Signed By:SAUL MARCH MD
--- NOTE | 2023-03-06 20:43 | PC.NURSE ---
pt in imaging at this time.
[2023-03-06 20:55] LABS: Venous Blood Gas Refer to POC result
[2023-03-06] MEDS: iohexoL 350 MG/ML 100 ML INFUS..BTL IV (20:58)
[2023-03-06] MEDS: Heparin Sodium,Porcine 5,000 UNIT/ML VIAL 5000 UNIT IVPUSH (20:58)
--- NOTE | 2023-03-06 20:58 | PC.NURSE ---
Pt back from CTA. Medicated per MAR with heparin bolus
[2023-03-06] MEDS: Nitroglycerin 2 % Oint 1 GM Packet 1 INCH TRANSDERMA (20:59)
--- NOTE | 2023-03-06 20:59 | PC.NURSE ---
Nitro paste applied to left chest at this time. Pt currently rating pain 8/10.
--- NOTE | 2023-03-06 21:31 | PC.NURSE ---
PTT greater than 200. Per provider since result is likely falsely elevated due to being drawn off of PIV line where bolus was given, heparin drip to continue to run at 10 mls/hr until 6 hr PTT recheck at 0356.
[2023-03-06 21:46] LABS: INTERNATIONAL NORM RATIO 0.9 (0.9-1.1); Prothrombin Time 10.7 SEC (10.0-13.1)
[2023-03-06] MEDS: Heparin Sodium,Porcine/1/2NS 25,000 UNIT/250 ML IV.SOLN 10 UNIT IVCONT (21:56)
[2023-03-06 22:08] LABS: Partial Thromboplastin Time > 200.0 SEC (26.0-36.4)
--- NOTE | 2023-03-06 22:15 | PC.NURSE ---
Nitro paste from left chest removed.
[2023-03-06] MEDS: Nitroglycerin/D5W 100 MG/250 ML INFUS..BTL IVCONT (22:17)
--- NOTE | 2023-03-06 22:17 | PC.NURSE ---
Nitro drip started at 10 mcg/min per verbal order from provider since SBP is 134. Pt currently rating pain 7/10.
--- NOTE | 2023-03-06 22:37 | PC.NURSE ---
Pt still rating pain 7/10 at this time. will notify provider.
--- NOTE | 2023-03-06 23:17 | PC.NURSE ---
Pt reporting current pain level 4/10. Denies any other complaints at this time. Awaiting bed assignment at [facility].
--- NOTE | 2023-03-06 23:45 | MHC.EDTECH ---
PATIENT ACCEPTED TO M5 ROOM 102 NURSE TO NURSE [phone] ACCEPTING
--- NOTE | 2023-03-06 23:53 | PC.NURSE ---
Report to Felicita ZAVALA at [facility] for continued care. Awaiting ambulance transport.
--- NOTE | 2023-03-06 23:57 | PC.NURSE ---
Pt reporting no pain at this time. Provider aware.
[2023-03-07 00:32] LABS: COVID-19 Test Negative (Negative); IDNOW Serial# BCCEAD1C
[2023-03-07 00:45] VITALS: BP 138/88; PULSE 71; RESP 20; O2SAT 97
--- NOTE | 2023-03-07 00:45 | MHC.EDTECH ---
Call out to [facility] @0012 to book ALS transport to [facility] ETA of 30 mins
--- NOTE | 2023-03-07 00:45 | PC.NURSE ---
Report given to [facility] crew for continued care to [facility].
== END 2023-03-07 00:54 | disposition short-term general hospital (02) ==
PROVIDERS: Emergency Provider Internal Medicine; PCP Internal Medicine
DX: I21.4 Non-ST elevation (NSTEMI) myocardial infarction (principal); R07.89 Other chest pain; R06.02 Shortness of breath; I25.10 Atherosclerotic heart disease of native coronary artery without angina pectoris; Z20.822 Contact with and (suspected) exposure to COVID-19; Z20.828 Contact with and (suspected) exposure to other viral communicable diseases; Z79.899 Other long term (current) drug therapy; Z87.891 Personal history of nicotine dependence
CPT/HCPCS: 36415; 71045; 71275; 80053; 82803; 83880; 84484; 85025; 85610; 85730; 87635; 93005; 96365; 96366; 96367; 96375; 99285; J1643; Q9967

== ENCOUNTER → 2023-03-06 19:13 | Outpatient (BNV) | payer OTHER, SELFPAY | PROVIDERS: Emergency Provider Internal Medicine; PCP Internal Medicine; Visit Provider Internal Medicine Cardiovascular Disease | DX: R07.9 Chest pain, unspecified (principal) | CPT/HCPCS: 93010 ==

== ENCOUNTER 2023-05-03 12:48 | Outpatient (AMB) | payer OTHER, SELFPAY ==
--- NOTE | 2023-05-03 13:09 | MHC.AMDMED ---
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 Technician Language: Data Operations Leader Name: Kristine [id number] Accompanied by: Self / Same As Patient Allergies No Known Allergies [No Known Allergies*] Allergy (Verified 01/30/23 14:38) HPI Comprehensive Diabetes Asmnt Most Recent Diabetes Results: Creatinine 1.08 mg/dL (0.5-1.4) 03/06/23 Blood Urea Nitrogen 15 mg/dL (9-16) 03/06/23 Sodium 137 mmol/L (135-145) 03/06/23 Potassium 3.8 mmol/L (3.3-5.1) 03/06/23 Chloride 104 mmol/L (96-108) 03/06/23 Carbon Dioxide 23 mmol/L (22-29) 03/06/23 Calcium 8.8 mg/dL (8.4-10.2) 03/06/23 AST 23 U/L (5-37) 03/06/23 ALT 23 U/L (0-40) 03/06/23 Total Protein 6.5 g/dL (6.5-8.0) 03/06/23 Albumin 3.1 g/dL (3.5-5.0) L 03/06/23 PFSH Medical History Alcohol abuse Amputation stump complication Amputation stump infection Arthritis CAD (coronary artery disease) Chronic pancreatitis Chronic 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 Diabetes mellitus with hyperglycemia, with long-term current use of insulin Diabetes mellitus, with long-term current use of insulin Dyslipidemia Erectile dysfunction Essential hypertension Failure of outpatient treatment Heartburn symptom Hyperlipidemia Increased BMI Intractable left heel pain Kidney calculus Major depression, recurrent Neuropathy PAD (peripheral artery disease) Type 2 diabetes mellitus with diabetic polyneuropathy Type 2 diabetes mellitus with hyperglycemia Surgical History History of right below knee amputation Hx of heart artery stent Hx of lithotripsy S/P debridement Status post below-knee amputation Status post laparoscopic cholecystectomy Family History Mother [place] (myocardial infarction), Onset Age: 64 Diabetes mellitus HTN (hypertension) Maternal Grandmother Diabetes mellitus Social History Household Members: Spouse Household Members Other:: and daughter Housing: Apartment Do you presently have visiting nurse or other home services: No Alcohol intake: never Patient Tobacco Use Status: Never used Tobacco Tobacco use type: Cigarette Cigarette Packs Per Day: 1 Cigarettes Per Day: 20.0 Years Smoked: 28 e-Cigarette/Vaping Use: Never Used Second Hand Smoke Exposure: Yes Substance Use Type: Marijuana Advance Directives Date on File: 04/17/21 service: No Current occupational status: unemployed and disabled Cognitive needs: No Hearing needs: No Vision needs: No Assessment & Plan Assessment & Plan (1) Diabetes mellitus, with long-term current use of insulin: Code(s): E11.9 - Type 2 diabetes mellitus without complications; Z79.4 - care home (current) use of insulin Plan: Learning objectives: The patient was provided with verbal and written education on the following topics as outlined below. The patient met all learning objectives and was able to verbalize understanding and provide teach back of education topics discussed . The patient was provided with the opportunity to ask questions and all questions were answered. Patient Assessment Assess patient education level/literacy/barriers Patient questions/concerns, patient is overdue for A1c. Last A1c in November 2022 11.1 %. Patient has been using [employer] 2, but did not bring to today's visit Patient also reports he had an FL in February 2023, is currently participating in cardiac rehab What is Diabetes? Pathophysiology How the body produces and uses insulin Identify type of DM Risk factors Signs of Diabetes Brief overview of Diabetes Management Monitoring blood sugar Following a meal plan Regular exercise Maintaining a healthy weight Taking medication as needed Members of the care team (PCP, RN, MA, RD, CDE, flight test shop mechanic) Blood glucose monitoring When/how often to test Target blood sugar ranges Introduction to Nutrition Importance of healthy diet in managing DM Diet is personalized to individual preference Review patient?s regular diet/food preferences Who prepares meals/does food shopping/ Dining out?/ Barriers? How diet effects glucose Eating 3 balanced meals a day with small, healthy snacks between meals Review food groups Carbohydrates: What is a carbohydrate/Which food/food groups are considered carbohydrates Effect of carbohydrates on blood glucose Portion sizes Reading food labels Basic carb counting (if applicable per nursing assessment) Plate method Meal planning Recommendations: Follow plate method, consistent carbs and read nutritional labels. Smart Goal: Patient will bring meter to every visit [facility] Educational Materials: The patient was provided with the following written educational materials: Planning Healthy Meals Handout Patient Response to instructions: Comprehension of Instructions: Fair Readiness to make changes: Contemplation How confident they feel about making changes: Positive Patient Instructions: Incluir actividad diaria regular. ADA recomienda 30 minutos de ejercicio 5 d?as a la semana. P?rdida de peso, hable con el PCP o el cardi?logo antes de comenzar un nuevo plan. Mida el nivel de az?car en la maday seg?n las indicaciones; Ayuno y comida m?s gerardo de 2hpp. Observe las tendencias en los resultados. Utilice los resultados y eval?e c?mo los alimentos, la actividad f?yessica y los medicamentos afectan los resultados de az?car en la maday. Lleve el gluc?metro o CGM a la pr?xima visita. Conocer los medicamentos para la diabetes, chilel acci?n, los efectos secundarios, la eficacia, la toxicidad, la dosis prescrita, el momento y la frecuencia de administraci?n apropiados, el efecto de las dosis olvidadas y retrasadas y las instrucciones de almacenamiento, viaje y seguridad. Coding Level of Care Code Est Pt Level 1 (97946) Diagnoses Diabetes mellitus, with long-term current use of insulin E11.9; Z79.4
== END 2023-05-03 13:33 | disposition home or self-care (01) ==
PROVIDERS: PCP Internal Medicine; Visit Provider Registered Nurse Diabetes Educator
DX: E11.9 Type 2 diabetes mellitus without complications (principal); Z79.4 Long term (current) use of insulin

== ENCOUNTER → 2023-05-03 12:48 | Outpatient (BNVA) | payer OTHER, SELFPAY | PROVIDERS: PCP Internal Medicine; Visit Provider Registered Nurse Diabetes Educator | DX: E11.9 Type 2 diabetes mellitus without complications (principal); Z79.4 Long term (current) use of insulin | CPT/HCPCS: 99211 ==

== ENCOUNTER 2023-05-10 13:02 | Outpatient (REF) | payer OTHER, SELFPAY ==
--- NOTE | ~2023-05-10 | US_ITS ---
EXAMINATION: Noninvasive assessment of the left lower extremities with ARTERIAL DUPLEX and ANKLE BRACHIAL INDICES (ABIs). CLINICAL INFORMATION: Peripheral vascular disease, history of right lower extremity amputation TECHNIQUE: Duplex Doppler techniques with waveform analysis and measurement of velocities in the left common femoral, profunda femoris, superficial femoral, popliteal and tibial arteries were performed. Additionally, ankle pulse volume recordings, ankle pressure measurements and ankle brachial indices were obtained of the lower extremity arterial system left. The study was performed only at rest. COMPARISON: 07/23/2021 FINDINGS: DIRECT DUPLEX DOPPLER FINDINGS: LEFT LEG: Common femoral artery: 66.3 cm/s, phasicity: Triphasic Profunda femoris artery: 138 cm/s, phasicity: Biphasic Superficial femoral artery (proximal): 70.2 cm/s, phasicity: Triphasic Superficial femoral artery (mid): 85.6 cm/s, phasicity: Triphasic Superficial femoral artery (distal): 82.9 cm/s, phasicity: Triphasic Popliteal artery: 68.5 cm/s, phasicity: Triphasic Posterior tibial artery: 25.4 cm/s, phasicity: Monophasic, medial calcinosis Peroneal artery: 102 cm/s, phasicity: Monophasic, medial calcinosis Anterior tibial artery: 28.2 cm/s, phasicity: Monophasic, medial calcinosis Dorsalis pedis artery: 39.5 cm/s, phasicity: Monophasic, medial calcinosis ANKLE-BRACHIAL INDEX: Left: 1.53 ANKLE PRESSURES: Left: PT?201, DP?201 ANKLE PVR WAVEFORMS: Left: Abnormal US/US ABHILASH complete IMPRESSION: Supranormal ankle-brachial index consistent with noncompressible arterial vessels. Duplex ultrasound demonstrates patent arterial flow within the arterial vessels with arterial calcinosis and dampened waveforms in the below-knee runoff vessels consistent with small vessel disease ABHILASH Reference: - >1.4 = calcified vessels - 0.9 - 1.4 = normal - no significant arterial disease - 0.7 - 0.89 = mild peripheral arterial disease - 0.51 - 0.69 = moderate peripheral arterial disease - ? 0.50 = severe peripheral arterial disease - < .30 = critical arterial disease
--- NOTE | ~2023-05-10 | US_ITS ---
EXAMINATION: Noninvasive assessment of the left lower extremities with ARTERIAL DUPLEX and ANKLE BRACHIAL INDICES (ABIs). CLINICAL INFORMATION: Peripheral vascular disease, history of right lower extremity amputation TECHNIQUE: Duplex Doppler techniques with waveform analysis and measurement of velocities in the left common femoral, profunda femoris, superficial femoral, popliteal and tibial arteries were performed. Additionally, ankle pulse volume recordings, ankle pressure measurements and ankle brachial indices were obtained of the lower extremity arterial system left. The study was performed only at rest. COMPARISON: 07/23/2021 FINDINGS: DIRECT DUPLEX DOPPLER FINDINGS: LEFT LEG: Common femoral artery: 66.3 cm/s, phasicity: Triphasic Profunda femoris artery: 138 cm/s, phasicity: Biphasic Superficial femoral artery (proximal): 70.2 cm/s, phasicity: Triphasic Superficial femoral artery (mid): 85.6 cm/s, phasicity: Triphasic Superficial femoral artery (distal): 82.9 cm/s, phasicity: Triphasic Popliteal artery: 68.5 cm/s, phasicity: Triphasic Posterior tibial artery: 25.4 cm/s, phasicity: Monophasic, medial calcinosis Peroneal artery: 102 cm/s, phasicity: Monophasic, medial calcinosis Anterior tibial artery: 28.2 cm/s, phasicity: Monophasic, medial calcinosis Dorsalis pedis artery: 39.5 cm/s, phasicity: Monophasic, medial calcinosis ANKLE-BRACHIAL INDEX: Left: 1.53 ANKLE PRESSURES: Left: PT?201, DP?201 ANKLE PVR WAVEFORMS: Left: Abnormal US/US arterial duplex LE IMPRESSION: Supranormal ankle-brachial index consistent with noncompressible arterial vessels. Duplex ultrasound demonstrates patent arterial flow within the arterial vessels with arterial calcinosis and dampened waveforms in the below-knee runoff vessels consistent with small vessel disease ABHILASH Reference: - >1.4 = calcified vessels - 0.9 - 1.4 = normal - no significant arterial disease - 0.7 - 0.89 = mild peripheral arterial disease - 0.51 - 0.69 = moderate peripheral arterial disease - ? 0.50 = severe peripheral arterial disease - < .30 = critical arterial disease
== END 2023-05-10 13:03 | disposition home or self-care (01) ==
LOC: HO.US 13:02
PROVIDERS: PCP Internal Medicine; Visit Provider Surgery Vascular Surgery
DX: I70.213 Atherosclerosis of native arteries of extremities with intermittent claudication, bilateral legs (principal)
CPT/HCPCS: 93923; 93926

== ENCOUNTER 2023-06-20 11:12 | Outpatient (AMB) | payer MEDICAID, SELFPAY ==
--- NOTE | 2023-06-20 11:13 | MHC.OFFVIS ---
Intake Intake Visit Reasons: Follow Up 05/10 Arterial Intake Note: pt here for a follow up arterial US on 05/10 Pt states that he is still having alot of pain that the neuropathy is getting worst especially the last 2 days Accompanied by: Spouse Allergies No Known Allergies [No Known Allergies*] Allergy (Verified 06/20/23 11:19) HPI Follow Up 05/10 Arterial HPI Details Very pleasant 58-year-old gentleman with we had been following for a long time regarding peripheral vascular disease and has undergone a right BKA presents for pain and discomfort on his left lower extremity. States over the past few months his leg has become extremely painful and attributes some of this to neuropathy. He previously was functioning well with his prosthetic and actually showed a video where he was dancing. He now presents for follow-up with noninvasive testing. Of note he a had an AK on 03/06/2023 and received 2 coronary stents. He appears to be recovering well from that. [facility] Medical History Heartburn symptom Amputation stump infection Major depression, recurrent Erectile dysfunction Dyslipidemia Diabetes mellitus, with long-term current use of insulin Amputation stump complication Intractable left heel pain PAD (peripheral artery disease) Chronic 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 Type 2 diabetes mellitus with diabetic polyneuropathy Type 2 diabetes mellitus with hyperglycemia Hyperlipidemia Chronic pancreatitis Essential hypertension Diabetes mellitus with hyperglycemia, with long-term current use of insulin Neuropathy Kidney calculus Failure of outpatient treatment Increased BMI Alcohol abuse CAD (coronary artery disease) Arthritis Surgical History History of right below knee amputation Status post below-knee amputation S/P debridement Hx of lithotripsy Status post laparoscopic cholecystectomy Hx of heart artery stent Family History Mother [place] (myocardial infarction), Onset Age: 64 Diabetes mellitus HTN (hypertension) Maternal Grandmother Diabetes mellitus Social History Household Members: Spouse Household Members Other:: and daughter Housing: Apartment Do you presently have visiting nurse or other home services: No Alcohol intake: never Patient Tobacco Use Status: Never used Tobacco Tobacco use type: Cigarette Cigarette Packs Per Day: 1 Cigarettes Per Day: 20.0 Years Smoked: 28 e-Cigarette/Vaping Use: Never Used Second Hand Smoke Exposure: Yes Substance Use Type: Marijuana Advance Directives Date on File: 04/17/21 service: No Current occupational status: unemployed and disabled Cognitive needs: No Hearing needs: No Vision needs: No Review of Systems Const All systems reviewed & are unremarkable except as noted in HPI and below Reports no additional complaints ENT Reports Normal hearing present Card Denies chest pain, Denies chest pain at rest, Denies chest pain with activity and Denies pedal edema Resp Denies cough GI Denies abdominal pain Musc Denies abnormal gait, Denies muscle cramps and Denies radiating pain into limb Skin/Breast Denies skin ulcer and Denies wounds Neuro Reports Normal hearing present and Denies abnormal gait Psych Reports no additional complaints Physical Exam Const General: cooperative, healthy appearing and comfortable Orientation/consciousness: oriented to person, oriented to place and oriented to time HEENT Head: Yes normal to inspection Neck Neck: Yes normal visual inspection Carotids: no bruits Chest Chest palpation & inspection: normal inspection of the chest Resp Effort & Inspection: normal respiratory effort and able to speak in complete sentences Auscultation: clear to auscultation bilaterally, no crackles, no rales, no rhonchi and no wheezes Cardio Other: Left DP signal only Rate: regular rate Rhythm: regular rhythm Heart sounds: S1 normal heart sound present and S2 normal heart sound present Bruits: no carotid bruits Peripheral pulses: Peripheral pulses 2+ throughout GI Inspection: Yes normal to inspection Skin Wounds: amputation site (Right prosthetic fitting well) Hair: normal Neuro General: oriented to person, oriented to place and oriented to time Cranial nerves: Yes CN's II-XII intact bilaterally and Yes Normal hearing present Cognition (Neuro): normal cognition Motor exam (neuro): 5/5 motor strength present throughout Extrem Other: venous exam: No significant superficial varicosities or spider telangiectasias, minimal edema General: No clubbing, No cyanosis and No edema Psych Appearance: grossly normal Mental Status: mental status grossly normal Speech and movement: Normal speech and movement present Results Reviewed Results Reviewed: Noninvasive testing dated 05/10/2023 demonstrates monophasic flow popliteal on down ABHILASH is 1.53 which is artifactually elevated. Written report and images were reviewed. Assessment & Plan Assessment & Plan (1) PAD (peripheral artery disease): Comment: 04/14/2021 - atherectomy and plasty of left SFA and popliteal artery, angioplasty of left anterior tibial posterior tibial and peroneal arteries 08/31/2021 - right BKA 11/29/2021 - revision right BKA Code(s): I73.9 - Peripheral vascular disease, unspecified Plan: Patient notes leg pain when walking distances. I have discussed the pathophysiology of peripheral vascular disease with the patient. I have also discussed risk factor modification. I have reviewed the patient's arterial testing which reveals left below-knee disease. the patient would benefit from a left leg endovascular peripheral angiogram with possible angioplasty, stent, and/or atherectomy. This has been discussed in detail with the patient along with risks, benefits, and complications. This includes but is not limited to bleeding, infection, heart attack, need for emergent surgical repair, limb ischemia, blood vessel damage, bleeding, puncture, kidney injury, bruising, allergic reaction, and skin reaction. The patient demonstrates a clear understanding. We will schedule for the next appropriate time. Thank you for allowing us to assist in this patient's care. Coding Level of Care Code Est Pt Level 4 (78124) Diagnoses PAD (peripheral artery disease) I73.9
== END 2023-06-20 11:39 | disposition home or self-care (01) ==
PROVIDERS: PCP Internal Medicine; Visit Provider Surgery Vascular Surgery
DX: I73.9 Peripheral vascular disease, unspecified (principal); Z89.511 Acquired absence of right leg below knee
CPT/HCPCS: 99214

== ENCOUNTER → 2023-06-20 11:12 | Outpatient (BNVA) | payer MEDICAID, SELFPAY | PROVIDERS: PCP Internal Medicine; Visit Provider Surgery Vascular Surgery | DX: I73.9 Peripheral vascular disease, unspecified (principal); Z89.511 Acquired absence of right leg below knee; Z95.5 Presence of coronary angioplasty implant and graft; E11.65 Type 2 diabetes mellitus with hyperglycemia; E11.42 Type 2 diabetes mellitus with diabetic polyneuropathy; Z79.4 Long term (current) use of insulin | CPT/HCPCS: 99212 ==

== ENCOUNTER 2023-06-28 05:56 | Day surgery (SDC) | payer MEDICARE, SELFPAY ==
[2023-06-28] VITALS (11 sets, daily range): BP systolic 128–159; BP diastolic 64–84; PULSE 80–89; RESP 16; TEMP 36.4–36.6; O2SAT 98–100; BMI 34.0
[2023-06-28 07:02] LABS: Glucose, Whole Blood 302 mg/dL (60-115)
[2023-06-28 07:08] LABS: MANUAL DIFF FLAG NO
[2023-06-28 07:11] LABS: Basophils Absolute Auto 0.1 X10*3/uL (0.0-0.2); Basophils Percent Auto 0.8 % (0-2); Eosinophils Percent Auto 9.9 % (0-4); Hematocrit 45.3 % (42.0-52.0); Hemoglobin 14.7 g/dl (14.0-18.0); Imm Gran Abs Auto 0.15 X10*3/uL (0.00-0.03); Imm Gran Pct Auto 1.5 % (0.0-0.4); Lymphocytes Absolute Auto 2.4 X10*3/uL (1.2-4.9); Lymphocytes Percent Auto 23.6 % (20-40); Mean Corpuscular HGB Conc 32.5 g/dl (31.0-36.0); Mean Corpuscular Hemoglobin 27.2 pg (27.0-33.0); Mean Corpuscular Volume 83.9 fL (80.0-98.0); Mean Platelet Volume 10.8 fL (9.4-12.4); Monocytes Absolute Auto 0.7 X10*3/uL (0.1-1.2); Monocytes Percent Auto 6.9 % (2-11); Neutrophils Absolute Auto 5.9 x10*3/uL (2.0-8.3); Neutrophils Percent Auto 57.3 % (45-73); Platelet Count 265 X10*3/uL (160-400); Red Cell Distribution Width 14.6 % (11.0-16.0); White Blood Count 10.3 X10*3/uL (4.8-10.8)
[2023-06-28 07:24] LABS: Blood Urea Nitrogen 18 mg/dL (9-16); Creatinine Clr Calc Pharmacy 87.3; Estimated Glomerular Filt Rate > 60
--- NOTE | 2023-06-28 09:38 | W.PM.OPN ---
Operative Note Operative Note Date of Service: 06/28/23 Narrative: Angiogram report from [facility] Preoperative diagnosis: Atherosclerosis of left ulcer lower extremity with nonhealing pretibial ulcer Postoperative diagnosis: Same Procedure: 1. Ultrasound-guided right common femoral access 2. Aortogram with left lower extremity runoff 3. plasty of left anterior tibial posterior tibial and peroneal arteries 4. plasty of left popliteal artery Surgeon:Berto Sheppard M.D., FACS, RPVI Forest Logistics Manager:None Anesthesia: Local with moderate conscious sedation. Total intraservice moderate sedation time was 77 minutes. I monitored the patient's level of consciousness and physiologic status continuously throughout the procedure. Specimens:none Drains:none Estimated blood loss: Less than 10 ml Implant: Medtronic Impact DCB 5 x 40 Indications: 58-year-old gentleman well known to me with a history of diabetes and peripheral vascular disease presents for endovascular intervention of the left lower extremity secondary to nonhealing ulcer. Noninvasive testing was concerning for popliteal and below-knee disease. The patient has signed the informed consent after reviewing risks, complications, benefits, and alternatives previously discussed with the patient. The patient was given the opportunity to ask any additional questions or voice any concerns. All questions were answered to the patient's satisfaction. Procedure in detail: Patient was brought to the angiography suite prior to which a time-out was called for patient identification and site verification. Bilateral groins were prepped and draped in the standard surgical fashion. Under ultrasound guidance Right common femoral was punctured with micro puncture needle and wire. Subsequently a precision 4 Mongolian sheath was then placed. Bentson wire was advanced to the level of the aorta. 4 Mongolian Flush catheter was brought up and parked at the level of the renal arteries. Aortogram was then undertaken. Catheter was brought down to the level of the iliac bifurcation. Iliacs were subsequently imaged. Catheter was then brought in up and over to the left side SFA. Runoff study was then undertaken. once this was accomplished we noted that the patient had below-knee disease. We administered 8000 units of systemic heparin. After 5 minutes of circulation time we brought and up and over 6 Mongolian sheath. Through this we advanced an 035 glidewire Advantage. We then brought a Navicross catheter down to the level the tibial vessels. We then advanced a 018 now across through this. We exchanged out from the Glidewire Advantage to an 014 glidewire Advantage. Once in appropriate position we 1st advanced down the anterior tibial. We plasty this with a 2 x 40 balloon. We then addressed a mid posterior tibial stenosis with a 2 x 40 balloon. Finally the prone ill artery was plasty did with a 2 x 40 balloon at the origin. Once this was accomplished weeks changed out for an 035 glidewire Advantage and we brought this down the anterior tibial we then plasty this area with a 3 x 20 balloon at the origin. We then turned our attention to the P1 P2 segment of the popliteal. This had a high-grade stenosis. We 1st plasty this with a regular 5 x 40 balloon. Subsequently we plasty this with a 5 x 40 drug coated balloon. This was brought into position in under 3 minutes and insufflated for a total of 3 minutes in duration. Once this was all accomplished catheter wire sheath was brought back to the ipsilateral side. StarClose closure device was deployed. Patient tolerated the procedure well. Returned to recovery with stable vitals. Interpretation of films: 1. Ultrasound demonstrates appropriate femoral puncture. Image of which was saved. 2. Aortogram demonstrates appropriate caliber aorta. Minimal disease. Appropriate take-off of the renals. 3. Iliac images demonstrate No significant disease 4. left Leg Common femoral artery: no significant disease Profundus Femoris: No significant disease Superficial femoral artery: calcified but no flow-limiting stenosis Popliteal artery (p1,p2,p3): high-grade stenosis at the P1 P2 segment Anterior tibial artery: stenosis at the origin Peroneal artery: stenosis at the origin Posterior tibial artery: stenosis at the proximal 3rd Dorsalis pedis/plantar arch: occluded at the level of the ankle. Conclusion: 1. Successful plasty of left lower extremity tibial vessels and popliteal. 2. Anticoagulation status: Will need to remain on her Lint the an aspirin for a total of 6 months. This note is constructed using voice recognition software. While every effort has been made to ensure accuracy, water pumping station engineer errors may have been included. Thank you for allowing me to participate in the care of your patient. Yours sincerely, Berto Sheppard MD, FACS, R.P.V.I.
[2023-06-28] MEDS: Acetaminophen 325 MG TABLET 650 MG PO (10:44)
[2023-06-28] MEDS: oxyCODONE HCl Immed Release 5 MG TABLET PO (10:44)
== END 2023-06-28 11:51 | disposition home or self-care (01) ==
PROVIDERS: PCP Internal Medicine; Visit Provider Surgery Vascular Surgery
DX: E11.51 Type 2 diabetes mellitus with diabetic peripheral angiopathy without gangrene (principal); E11.42 Type 2 diabetes mellitus with diabetic polyneuropathy; E11.65 Type 2 diabetes mellitus with hyperglycemia; L97.829 Non-pressure chronic ulcer of other part of left lower leg with unspecified severity; I70.248 Atherosclerosis of native arteries of left leg with ulceration of other part of lower leg; M79.662 Pain in left lower leg; Z89.511 Acquired absence of right leg below knee; I10 Essential (primary) hypertension; E78.5 Hyperlipidemia, unspecified; K86.1 Other chronic pancreatitis; K86.81 Exocrine pancreatic insufficiency; I25.10 Atherosclerotic heart disease of native coronary artery without angina pectoris; Z95.5 Presence of coronary angioplasty implant and graft; F10.10 Alcohol abuse, uncomplicated; F33.2 Major depressive disorder, recurrent severe without psychotic features; Z79.4 Long term (current) use of insulin; Z87.442 Personal history of urinary calculi
CPT/HCPCS: 36415; 37224; 37228; 37232; 76937; 82565; 82947; 84520; 85025; 99152; 99153; C1725; C1760; C1769; C1887; J1643; J2250; J3010; Q9967

== ENCOUNTER → 2023-06-28 05:56 | Outpatient (BNV) | payer MEDICARE, SELFPAY | PROVIDERS: PCP Internal Medicine; Visit Provider Surgery Vascular Surgery | DX: I70.248 Atherosclerosis of native arteries of left leg with ulceration of other part of lower leg (principal); E11.622 Type 2 diabetes mellitus with other skin ulcer | CPT/HCPCS: 37224; 37228; 37232; 75625; 75710; 76937; 99152 ==

== ENCOUNTER 2023-07-02 14:50 | Emergency (ER) | payer MEDICARE, SELFPAY ==
--- NOTE | ~2023-07-02 | XR_ITS ---
Examination: XR foot LT min 3V, XR tibia fibula LT 2V Indication: ulcer r/o osteo Comparison: No pertinent prior studies are currently available for comparison. Technique: Frontal and lateral views of the left tibia and fibula with 3 views of the left foot Findings: Left tibia and fibula: Bones are normal anatomic alignment with no acute fracture or dislocation. No bony destructive lesion or periosteal reaction. Degenerative changes seen in the visualized knee with loss of joint space and osteophyte formation more so in the lateral compartment. Extensive vascular calcification. Left foot: Extensive vascular calcification. No acute fracture or dislocation. No bony destructive lesions or periosteal reaction. There is soft tissue swelling and soft tissue defect more so along the lateral forefoot. XR/XR tibia fibula LT 2V Impression: Soft tissue swelling and soft tissue defect along the lateral aspect of the forefoot. No acute underlying bony destructive lesions or periosteal reaction.
--- NOTE | ~2023-07-02 | XR_ITS ---
Examination: XR foot LT min 3V, XR tibia fibula LT 2V Indication: ulcer r/o osteo Comparison: No pertinent prior studies are currently available for comparison. Technique: Frontal and lateral views of the left tibia and fibula with 3 views of the left foot Findings: Left tibia and fibula: Bones are normal anatomic alignment with no acute fracture or dislocation. No bony destructive lesion or periosteal reaction. Degenerative changes seen in the visualized knee with loss of joint space and osteophyte formation more so in the lateral compartment. Extensive vascular calcification. Left foot: Extensive vascular calcification. No acute fracture or dislocation. No bony destructive lesions or periosteal reaction. There is soft tissue swelling and soft tissue defect more so along the lateral forefoot. XR/XR foot LT min 3V Impression: Soft tissue swelling and soft tissue defect along the lateral aspect of the forefoot. No acute underlying bony destructive lesions or periosteal reaction.
--- NOTE | 2023-07-02 15:01 | ED.LOWEXIN ---
HPI - Extremity Injury (Lower) General Chief Complaint: General Medical Stated Complaint: L leg pain Time Seen by Provider: 07/02/23 16:22 Source: patient Mode of arrival: ambulatory Limitations: no limitations History of Present Illness HPI Narrative: Patient comes to the emergency room complaining of a skin ulcer on the left lan. Patient states it has been present for about 2 weeks. Over the last couple of days, patient's noted that there was erythema present. Patient states that it hurts slightly more than usual. Patient has chronic neuropathy so he cannot tell if there is acute on chronic pain. Patient denies any fever or chills. No pus drainage Related Data Home Medications Medication Instructions Recorded Confirmed acetaminophen 500 mg tablet 1,000 mg PO BID PRN Pain, Mild 04/10/22 06/28/23 clopidogrel 75 mg tablet 75 mg PO DAILY 04/10/22 06/28/23 blood sugar diagnostic (FreeStyle 12/01/22 06/28/23 Lite Strips) blood-glucose meter (FreeStyle 12/01/22 06/28/23 Lite Meter kit) atorvastatin 80 mg tablet 80 mg PO BEDTIME 06/20/23 06/28/23 dapagliflozin propanediol 10 mg 10 mg PO DAILY 06/20/23 06/28/23 tablet (Farxiga) empagliflozin 10 mg tablet 10 mg PO DAILY 06/20/23 06/28/23 (Jardiance) valsartan 40 mg tablet 40 mg PO BID 06/20/23 06/28/23 Previous Rx's Medication Instructions Recorded Bedside commode #1 ea 04/18/22 walker with wheels #1 ea 08/19/22 pen needle, diabetic 31 gauge x #100 ea 10/20/22/16 (BD Ultra-Fine Short Pen Needle) recliner #1 ea 11/23/22 flash glucose scanning reader #1 ea 12/02/22 (FreeStyle Frank 2 [place]) metoprolol succinate 50 mg 50 mg PO DAILY #90 tabs 01/27/23 tablet,extended release 24 hr aspirin 81 mg chewable tablet 81 mg PO DAILY #90 tabs 02/07/23 mupirocin 2 % topical ointment 1 appl topical BID #15 grams 02/14/23 tramadol 50 mg tablet 50 mg PO Q6H PRN pain #20 tabs 06/20/23 flash glucose sensor (FreeStyle #2 ea 03/06/23 Frank 2 Sensor kit) gabapentin 600 mg tablet 600 mg PO TID #90 tabs 05/09/23 insulin glargine 100 unit/mL (3 24 unit (0.24 mL) subcut BEDTIME 05/18/23 mL) subcutaneous pen (Lantus #15 mL Solostar U-100 Insulin) insulin lispro 100 unit/mL 17 unit (0.17 mL) subcut TID #15 mL 05/18/23 subcutaneous pen omeprazole 40 mg capsule,delayed 40 mg PO DAILY #30 caps 06/08/23 release sertraline 50 mg tablet 75 mg (1.5 x 50 mg) PO BEDTIME 06/09/23 #135 tabs cephalexin 500 mg capsule 500 mg PO Q12H #20 caps 07/02/23 doxycycline monohydrate 100 mg 100 mg PO BID #20 caps 07/02/23 capsule tramadol 50 mg tablet 50 mg PO BID PRN pain #7 tabs 07/02/23 Allergies Allergy/AdvReac Type Severity Reaction Status Date / Time No Known Allergies Allergy Verified 07/02/23 15:01 [No Known Allergies*] Review of Systems Review of Systems: Constitutional : No Weight loss, No Fever, No Chills, No Night Sweats, No Fatigue, No Malaise ENT/Mouth : No Hearing loss, No Ear Pain, No Nasal Congestion, No Sinus Pain, No Hoarseness, No sore throat, No Rhinorrhea, No Swallowing Difficulty Eyes: No Eye Pain, No Swelling, No Redness, No Foreign Body, No Discharge, No Vision Changes Cardiovascular : No Chest Pain, No SOB, No Dyspnea on Exertion, No Orthopnea, No Edema, No Palpitations Respiratory : No Cough, No Sputum, No Wheezing, No Smoke Exposure, No Dyspnea Gastrointestinal : No Nausea, No Vomiting, No Diarrhea, No Constipation, No abdominal Pain, No Hematochezia, No Melena Genitourinary : no irregular bleeding, No Dysuria, No Urinary Frequency, No Hematuria, No Urinary Incontinence, No Urgency, No Flank Pain, No Urinary Flow Changes, No Hesitancy Musculoskeletal : No joint pain, No Myalgias, No Joint Swelling Skin : Complaining of an ulcer on the left lan Neuro : No Weakness, No Numbness, No Paresthesias, No Loss of Consciousness, No Dizziness, No Headache Psych : No Anxiety/Panic, No Depression, No SI/HI/AH/VH, No Social Issues, Heme/Lymph: No Bruising, No Bleeding,No Lymphadenopathy Endocrine : No Polyuria, No Polydipsia, No Temperature Intolerance [facility] Past Medical History Medical History Heartburn symptom Amputation stump infection Major depression, recurrent Erectile dysfunction Dyslipidemia Diabetes mellitus, with long-term current use of insulin Amputation stump complication Intractable left heel pain PAD (peripheral artery disease) Chronic 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 Type 2 diabetes mellitus with diabetic polyneuropathy Type 2 diabetes mellitus with hyperglycemia Hyperlipidemia Chronic pancreatitis Essential hypertension Diabetes mellitus with hyperglycemia, with long-term current use of insulin Neuropathy Kidney calculus Failure of outpatient treatment Increased BMI Alcohol abuse CAD (coronary artery disease) Arthritis Surgical History History of right below knee amputation Status post below-knee amputation S/P debridement Hx of lithotripsy Status post laparoscopic cholecystectomy Hx of heart artery stent Family History Family History Mother [place] (myocardial infarction), Onset Age: 64 Diabetes mellitus HTN (hypertension) Maternal Grandmother Diabetes mellitus Social History Social History Household Members: Spouse Household Members Other:: and daughter Housing: Apartment Do you presently have visiting nurse or other home services: No Alcohol intake: never Patient Tobacco Use Status: Never used Tobacco Tobacco use type: Cigarette Cigarette Packs Per Day: 1 Cigarettes Per Day: 20.0 Years Smoked: 28 Smoked in Last 30 Days: No e-Cigarette/Vaping Use: Never Used Second Hand Smoke Exposure: Yes Use of substances other than those prescribed or required for medical reasons: No Substance Use Type: Marijuana Advance Directives: Yes Advance Directives on File: Yes Advance Directives Date on File: 04/17/21 service: No Current occupational status: unemployed and disabled Cognitive needs: No Hearing needs: No Vision needs: No Physical Exam Vital Signs: Vital Signs: Last Vital Signs Temp 97.8 F 07/02/23 17:54 Pulse 77 07/02/23 17:54 Resp 18 07/02/23 17:54 BP 140/77 H 07/02/23 17:54 Pulse Ox 98 07/02/23 17:54 O2 Del Method Room Air 07/02/23 17:54 BMI result Body Mass Index 34.0 Const: Other: Appearance: Alert. Oriented X3. No acute distress. Eyes: Pupils equal, round and reactive to light. ENT: Pharynx normal. Neck: Normal inspection. Neck supple. No lymph nodes noted. No crepitus CVS: Normal heart rate and rhythm. Pulses normal. Normal S1 and S2 Respiratory: No respiratory distress. Breath sounds normal. No Wheezing. No rales Abdomen: Soft and nontender. No rigidity. No distention. Skin: Skin warm and dry. Normal skin color. Normal skin turgor. Extremities: Right BKA, 2.5 cm x 2.5 cm ulcer over the left, 2 mm surrounding erythema. Also, patient has does seem slightly erythematous Neuro: Oriented X 3. No motor deficit. No sensory deficit. Moving all extremities. No slurred speech. CN 2 through 12 grossly intact Psych: calm, cooperative, normal affect Course Course Course Narrative: RME: 58-year-old male with a past medical history of PAD, depression, HLD, HTN, diabetes, right BKA, c/o painful ulcer to right lan & foot x yesterday. Denies fever, drainage Area wrapped and not evaluated in triage Labs including lactic/blood cultures and x-ray ordered Full HPI, ROS and PE to be performed by primary ED provider. Medications Administered Discontinued Medications Generic Name Dose Route Start Last Admin Trade Name Freq PRN Reason Stop Dose Admin Cephalexin HCl 500 mg 07/02/23 16:23 07/02/23 16:47 Cephalexin 500 Mg Capsule PO 07/02/23 16:24 500 mg ONCE ONE Administration Doxycycline Monohydrate 100 mg 07/02/23 16:23 07/02/23 16:47 Doxycycline Monohydrate 100 Mg Capsule PO 07/02/23 16:24 100 mg ONCE ONE Administration Sodium Chloride 1,000 mls @ 999 mls/hr 07/02/23 16:33 07/02/23 18:44 Ns IVCONT 07/02/23 17:33 Infused .Q1H1M ONE Infusion Tramadol HCl 50 mg 07/02/23 16:25 07/02/23 16:47 Tramadol Hcl 50 Mg Tablet PO 07/02/23 16:26 50 mg ONCE ONE Administration Medical Decision Making Medical Decision Making MDM Narrative: -my interpretation of x-rays of the tibia/fibula/foot x-ray. No obvious signs of osteomyelitis -my interpretation of labs: Normal white blood cell count, lactic acid elavated, no fever/chills, sepsis is not suspected -pt getting IV fluids, and then we will repeat lactic acid level, pt agreable with plan -repeat lactic back to normal, likely secondary to dehydration. -patient received the 1st dose of antibiotics, Keflex and doxycycline Patient ready for discharge Differential Diagnosis Differential Diagnoses: The differential diagnosis associated with the presentation includes (Cellulitis, chronic wound, osteomyelitis, dehydration) Admission/Observation Consideration of admission/observation: Escalation of care including admission/observation considered (Given the patient's history and presentation, admission was considered on arrival.) Lab Data [facility] Lab Attestation statement: I reviewed the patient's lab results. 07/02/23 15:39 07/02/23 15:39 Labs: Lab Results 07/02/23 07/02/23 07/02/23 Range/Units 15:38 15:39 18:48 WBC 10.6 (4.8-10.8) X10*3/uL RBC 5.44 (4.60-5.80) X10*6/uL Hgb 14.5 (14.0-18.0) g/dl Hct 46.2 (42.0-52.0) % MCV 84.9 (80.0-98.0) fL MCH 26.7 L (27.0-33.0) pg MCHC 31.4 (31.0-36.0) g/dl RDW 14.7 (11.0-16.0) % Plt Count 224 (160-400) X10*3/uL MPV 11.1 (9.4-12.4) fL Immature Gran % (Auto) 0.5 H (0.0-0.4) % Neut % (Auto) 63.8 (45-73) % Lymph % (Auto) 20.2 (20-40) % [place] % (Auto) 6.7 (2-11) % Eos % (Auto) 8.3 H (0-4) % Baso % (Auto) 0.5 (0-2) % Lymph # (Auto) 2.1 (1.2-4.9) X10*3/uL [place] # (Auto) 0.7 (0.1-1.2) X10*3/uL Eos # (Auto) 0.9 H (0.0-0.4) X10*3/uL Baso # (Auto) 0.1 (0.0-0.2) X10*3/uL Abs Immat Gran (auto) 0.05 H (0.00-0.03) X10*3/uL Absolute Neuts (auto) 6.7 (2.0-8.3) x10*3/uL Absolute Nucleated RBC 0.000 (0.0-0.012) X10*3/uL Nucleated RBC % (auto) 0.0 (0.0-0.2) /100WBC ESR 34 H (0-15) MM/HR Sodium 140 (135-145) mmol/L Potassium 4.1 (3.3-5.1) mmol/L Chloride 107 (96-108) mmol/L Carbon Dioxide 20 L (22-29) mmol/L Anion Gap 17 (12-20) BUN 16 (9-16) mg/dL Creatinine 0.94 (0.5-1.4) mg/dL Estim Creat Clear Calc 103.1 Estimated GFR > 60 Random Glucose 241 H (60-115) mg/dL Lactic Acid 3.3 H* (0.5-2.0) mmol/L Lactic Acid F/U @ 2Hr 1.3 (0.5-2.0) mmol/L Calcium 9.2 (8.4-10.2) mg/dL Total Bilirubin 0.1 (0.0-1.0) mg/dL Direct Bilirubin < 0.2 (0.0-0.5) mg/dL AST 14 (5-37) U/L ALT 16 (0-40) U/L Alkaline Phosphatase 103 (39-117) U/L C-Reactive Protein 2.82 H (< or = 0.50) mg/dL Total Protein 7.7 (6.5-8.0) g/dL Albumin 3.7 (3.5-5.0) g/dL Independent Interpretation I performed an independent interpretation of an: Plain X-Ray Radiology Impression Discussion of test interpretation with radiology: I have reviewed the radiologist's reading. Radiologist Impression: Findings: Left tibia and fibula: Bones are normal anatomic alignment with no acute fracture or dislocation. No bony destructive lesion or periosteal reaction. Degenerative changes seen in the visualized knee with loss of joint space and osteophyte formation more so in the lateral compartment. Extensive vascular calcification. Left foot: Extensive vascular calcification. No acute fracture or dislocation. No bony destructive lesions or periosteal reaction. There is soft tissue swelling and soft tissue defect more so along the lateral forefoot. XR/XR foot LT min 3V Impression: Soft tissue swelling and soft tissue defect along the lateral aspect of the forefoot. No acute underlying bony destructive lesions or periosteal reaction. Critical Care Time Critical Care Time Critical Care Time: Yes Total Critical Care Time: 60 Attestation: I have personally provided critical care time. Time includes review of lab data, radiology results, discussion with consultants, and monitoring for potential decompensation. Intervention performed as documented. Discharge Plan Discharge Clinical Impression: Chronic wound, Dehydration Patient Disposition: Home, Self-Care Instructions: Dehydration (ED), Chronic Wounds (ED) Additional Instructions: Please follow-up with your primary care physician tomorrow. If you have any worsening or new symptoms, please return to the emergency room or call 911 Prescriptions: New cephalexin 500 mg capsule 500 mg PO Q12H Qty: 20 0RF doxycycline monohydrate 100 mg capsule 100 mg PO BID Qty: 20 0RF tramadol 50 mg tablet 50 mg PO BID PRN (Reason: pain) Qty: 7 0RF No Action (DME) Bedside commode See Rx Instructions .Route .MEDSUPPLY Qty: 1 0RF Rx Instructions: As directed (DME) walker with wheels See Rx Instructions .Route .MEDSUPPLY Qty: 1 0RF Rx Instructions: As directed (DME) pen needle, diabetic [BD Ultra-Fine Short Pen Needle] 31 gauge x 5/16 needle See Rx Instructions .ROUTE .COMPLEX Qty: 100 5RF Dose Instruction: USE MARÍA LO INDICADO BENNETT VECES AL LIZZIE ANTES DE LAS COMIDAS Rx Instructions: USE MARÍA LO INDICADO BENNETT VECES AL LIZZIE ANTES DE LAS COMIDAS (DME) recliner See Rx Instructions .Route .MEDSUPPLY Qty: 1 0RF Rx Instructions: As directed (DME) FreeStyle Frank 2 [place] Misc See Rx Instructions .Route Qty: 1 0RF Rx Instructions: As directed metoprolol succinate 50 mg tablet extended release 24 hr 50 mg PO DAILY Qty: 90 1RF aspirin 81 mg tablet,chewable 81 mg PO DAILY Qty: 90 1RF (DME) FreeStyle Frank 2 Sensor Kit See Rx Instructions .Route Qty: 2 8RF Rx Instructions: As directed change every 14 days gabapentin 600 mg tablet 600 mg PO TID Qty: 90 4RF insulin glargine [Lantus Solostar U-100 Insulin] 100 unit/mL (3 mL) insulin pen 24 unit subcut BEDTIME Qty: 15 6RF insulin lispro 100 unit/mL insulin pen 17 unit subcut TID Qty: 15 4RF omeprazole 40 mg capsule,delayed release(DR/EC) 40 mg PO DAILY Qty: 30 2RF sertraline 50 mg tablet 75 mg PO BEDTIME Qty: 135 1RF clopidogrel 75 mg tablet 75 mg PO DAILY acetaminophen 500 mg Tablet 1,000 mg PO BID PRN (Reason: Pain, Mild) mupirocin 2 % ointment 1 appl topical BID Qty: 15 0RF tramadol 50 mg tablet 50 mg PO Q6H PRN (Reason: pain) Qty: 20 0RF (DME) blood-glucose meter [FreeStyle Lite Meter] Kit See Rx Instructions .Route Rx Instructions: As directed (DME) FreeStyle Lite Strips Strip See Rx Instructions .Route Rx Instructions: As directed Farxiga 10 mg tablet 10 mg PO DAILY valsartan 40 mg tablet 40 mg PO BID atorvastatin 80 mg tablet 80 mg PO BEDTIME Jardiance 10 mg tablet 10 mg PO DAILY
[2023-07-02 15:02] VITALS: BP 170/86; PULSE 87; RESP 18; TEMP 36.9; O2SAT 99; BMI 34.0
[2023-07-02 15:16] VITALS: BP 153/75; PULSE 91; RESP 19; TEMP 36.5; O2SAT 97
[2023-07-02 16:00] LABS: MANUAL DIFF FLAG NO
[2023-07-02 16:01] LABS: Basophils Absolute Auto 0.1 X10*3/uL (0.0-0.2); Basophils Percent Auto 0.5 % (0-2); Eosinophils Absolute Auto 0.9 X10*3/uL (0.0-0.4); Eosinophils Percent Auto 8.3 % (0-4); Hematocrit 46.2 % (42.0-52.0); Hemoglobin 14.5 g/dl (14.0-18.0); Imm Gran Abs Auto 0.05 X10*3/uL (0.00-0.03); Imm Gran Pct Auto 0.5 % (0.0-0.4); Lymphocytes Absolute Auto 2.1 X10*3/uL (1.2-4.9); Lymphocytes Percent Auto 20.2 % (20-40); Mean Corpuscular HGB Conc 31.4 g/dl (31.0-36.0); Mean Corpuscular Hemoglobin 26.7 pg (27.0-33.0); Mean Corpuscular Volume 84.9 fL (80.0-98.0); Mean Platelet Volume 11.1 fL (9.4-12.4); Monocytes Absolute Auto 0.7 X10*3/uL (0.1-1.2); Monocytes Percent Auto 6.7 % (2-11); Neutrophils Absolute Auto 6.7 x10*3/uL (2.0-8.3); Neutrophils Percent Auto 63.8 % (45-73); Platelet Count 224 X10*3/uL (160-400); Red Blood Count 5.44 X10*6/uL (4.60-5.80); Red Cell Distribution Width 14.7 % (11.0-16.0); White Blood Count 10.6 X10*3/uL (4.8-10.8)
[2023-07-02 16:18] LABS: Alanine Aminotransferase 16 U/L (0-40); Albumin Level 3.7 g/dL (3.5-5.0); Alkaline Phosphatase 103 U/L (39-117); Anion Gap 17 (12-20); Aspartate Amino Transferase 14 U/L (5-37); Bilirubin Direct < 0.2 mg/dL (0.0-0.5); Bilirubin Total 0.1 mg/dL (0.0-1.0); Blood Urea Nitrogen 16 mg/dL (9-16); C Reactive Protein 2.82 mg/dL (< or = 0.50); Calcium 9.2 mg/dL (8.4-10.2); Carbon Dioxide 20 mmol/L (22-29); Chloride 107 mmol/L (96-108); Creatinine Clr Calc Pharmacy 103.1; Estimated Glomerular Filt Rate > 60; Glucose Random 241 mg/dL (60-115); Potassium 4.1 mmol/L (3.3-5.1); Sodium 140 mmol/L (135-145); Total Protein 7.7 g/dL (6.5-8.0)
[2023-07-02 16:24] LABS: Lactic Acid 3.3 mmol/L (0.5-2.0)
[2023-07-02 16:34] LABS: Erythrocyte Sedimentation Rate 34 MM/HR (0-15)
[2023-07-02 16:43] VITALS: BP 140/77; PULSE 77; RESP 16; TEMP 36.8; O2SAT 98
[2023-07-02] MEDS: traMADoL HCL 50 MG TABLET PO (16:47)
[2023-07-02] MEDS: Doxycycline Monohydrate 100 MG CAPSULE PO (16:47)
[2023-07-02] MEDS: cephALEXin 500 MG CAPSULE PO (16:47)
[2023-07-02] MEDS: 0.9 % Sodium Chloride 1,000 ML 999 ML IVCONT (16:59)
--- NOTE | 2023-07-02 17:01 | PC.NURSE ---
pt a&ox4, hypertensive, other vss, quarter sized ulcer to left lan - nonadherant dressing applied, pt reporting 8/10 left leg pain. medicated per OCT. 20G IV placed L wrist, 1L NS running. plan for repeat lactic post fluids. no new orders at this time.
[2023-07-02 17:54] VITALS: BP 140/77; PULSE 77; RESP 18; TEMP 36.6; O2SAT 98
[2023-07-02 17:57] LABS: Reflex Lactate? Lactic Acid Added
[2023-07-02 19:02] LABS: ~Lactic Acid-LAB USE ONLY 1.3 mmol/L (0.5-2.0)
[2023-07-02 19:31] VITALS: BP 170/77; PULSE 70; RESP 16; O2SAT 98
== END 2023-07-02 20:06 | disposition home or self-care (01) ==
PROVIDERS: Physician Assistant; Emergency Provider Emergency Medicine; PCP Internal Medicine
DX: L97.818 Non-pressure chronic ulcer of other part of right lower leg with other specified severity (principal); E86.0 Dehydration; M79.662 Pain in left lower leg; I10 Essential (primary) hypertension; E11.9 Type 2 diabetes mellitus without complications; E78.5 Hyperlipidemia, unspecified; I25.10 Atherosclerotic heart disease of native coronary artery without angina pectoris; Z79.4 Long term (current) use of insulin; Z89.511 Acquired absence of right leg below knee
CPT/HCPCS: 36415; 73590; 73630; 80048; 80076; 83605; 85025; 85652; 86140; 87040; 96360; 96361; 99284

== ENCOUNTER 2023-07-06 12:29 | Emergency (ER) | payer MEDICARE, SELFPAY ==
--- NOTE | ~2023-07-06 | XR_ITS ---
EXAMINATION: LEFT TIB-FIB, LEFT FOOT CLINICAL INFORMATION: Left ankle ulcer and left fifth digit ulcer with question of osteomyelitis COMPARISON: Left tib-fib and left foot 07/02/2023 TECHNIQUE: 2 views tib-fib, 3 views foot FINDINGS: Again seen is marked vascular calcification. There is soft tissue swelling lateral to the head of the fifth metatarsal with a small break in the skin, presumably the patient's ulcer. Underlying osseous structures appear normal without evidence of osteomyelitis. No significant arthritic changes are seen. The tibia and fibula appear unremarkable aside from degenerative changes in the visualized portion of the knee joint XR/XR foot LT 2V IMPRESSION: 1. Soft tissue swelling lateral to the head of the fifth metatarsal without evidence of osteomyelitis. 2. Marked vascular calcification.
--- NOTE | ~2023-07-06 | XR_ITS ---
EXAMINATION: LEFT TIB-FIB, LEFT FOOT CLINICAL INFORMATION: Left ankle ulcer and left fifth digit ulcer with question of osteomyelitis COMPARISON: Left tib-fib and left foot 07/02/2023 TECHNIQUE: 2 views tib-fib, 3 views foot FINDINGS: Again seen is marked vascular calcification. There is soft tissue swelling lateral to the head of the fifth metatarsal with a small break in the skin, presumably the patient's ulcer. Underlying osseous structures appear normal without evidence of osteomyelitis. No significant arthritic changes are seen. The tibia and fibula appear unremarkable aside from degenerative changes in the visualized portion of the knee joint XR/XR tibia fibula LT 2V IMPRESSION: 1. Soft tissue swelling lateral to the head of the fifth metatarsal without evidence of osteomyelitis. 2. Marked vascular calcification.
[2023-07-06 12:47] VITALS: BP 146/86; PULSE 85; RESP 18; TEMP 36.8; O2SAT 100; BMI 34.0
--- NOTE | 2023-07-06 12:54 | ED_ITS ---
HPI - General Adult General Chief complaint: Wound/Laceration Stated complaint: Seen 2 days ago - ulcer left foot Time Seen by Provider: 07/06/23 13:11 Source: patient and pre press manager Mode of arrival: ambulatory Limitations: language barrier History of Present Illness HPI narrative: Patient is a 58-year-old Bhutanese-speaking male with history of T2DM, R BKA, PAD, chronic pancreatitis, HTN, neuropathy, CAD presenting to the emergency department with worsening ulcer to left lower leg as well as new ulcer to left 5th toe. Patient was seen in this emergency department on 07/02/2023, stated wound was present for around 2 weeks before coming in, and was discharged home on doxycycline and Keflex, told to return if symptoms worsen. Patient states he has had increased pain and is now having purulence drainage from ulcer to lower leg. He denies fevers. MD complaint: lower leg wound Onset (ago): day(s) Location: left and lower extremity Severity: mild Pain Consistency: intermittent Relieving factors: rest Exacerbating factors: movement Associated symptoms: denies other symptoms Treatments prior to arrival: other (antibiotics) Related Data Home Medications Medication Instructions Recorded Confirmed acetaminophen 500 mg tablet 1,000 mg PO BID PRN Pain, Mild 04/10/22 06/28/23 clopidogrel 75 mg tablet 75 mg PO DAILY 04/10/22 06/28/23 blood sugar diagnostic (FreeStyle 12/01/22 06/28/23 Lite Strips) blood-glucose meter (FreeStyle 12/01/22 06/28/23 Lite Meter kit) atorvastatin 80 mg tablet 80 mg PO BEDTIME 06/20/23 06/28/23 dapagliflozin propanediol 10 mg 10 mg PO DAILY 06/20/23 06/28/23 tablet (Farxiga) empagliflozin 10 mg tablet 10 mg PO DAILY 06/20/23 06/28/23 (Jardiance) valsartan 40 mg tablet 40 mg PO BID 06/20/23 06/28/23 Previous Rx's Medication Instructions Recorded Bedside commode #1 ea 04/18/22 walker with wheels #1 ea 08/19/22 pen needle, diabetic 31 gauge x #100 ea 10/20/22 5/16 (BD Ultra-Fine Short Pen Needle) recliner #1 ea 11/23/22 flash glucose scanning reader #1 ea 12/02/22 (FreeStyle Frank 2 [place]) metoprolol succinate 50 mg 50 mg PO DAILY #90 tabs 01/27/23 tablet,extended release 24 hr aspirin 81 mg chewable tablet 81 mg PO DAILY #90 tabs 02/07/23 mupirocin 2 % topical ointment 1 appl topical BID #15 grams 02/14/23 tramadol 50 mg tablet 50 mg PO Q6H PRN pain #20 tabs 02/14/23 flash glucose sensor (FreeStyle #2 ea 03/06/23 Frank 2 Sensor kit) gabapentin 600 mg tablet 600 mg PO TID #90 tabs 05/09/23 insulin glargine 100 unit/mL (3 24 unit (0.24 mL) subcut BEDTIME 05/18/23 mL) subcutaneous pen (Lantus #15 mL Solostar U-100 Insulin) insulin lispro 100 unit/mL 17 unit (0.17 mL) subcut TID #15 mL 05/18/23 subcutaneous pen omeprazole 40 mg capsule,delayed 40 mg PO DAILY #30 caps 06/08/23 release sertraline 50 mg tablet 75 mg (1.5 x 50 mg) PO BEDTIME 06/09/23 #135 tabs cephalexin 500 mg capsule 500 mg PO Q12H #20 caps 07/02/23 doxycycline monohydrate 100 mg 100 mg PO BID #20 caps 07/02/23 capsule tramadol 50 mg tablet 50 mg PO BID PRN pain #7 tabs 07/02/23 Allergies Allergy/AdvReac Type Severity Reaction Status Date / Time No Known Allergies Allergy Verified 07/06/23 12:46 [No Known Allergies*] Review of Systems 2 Review of Systems: As per HPI. Yes all other systems are reviewed and are negative Constitutional: Constitutional: Reports as per HPI [facility] Past Medical History Medical History Heartburn symptom Amputation stump infection Major depression, recurrent Erectile dysfunction Dyslipidemia Diabetes mellitus, with long-term current use of insulin Amputation stump complication Intractable left heel pain PAD (peripheral artery disease) Chronic 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 Type 2 diabetes mellitus with diabetic polyneuropathy Type 2 diabetes mellitus with hyperglycemia Hyperlipidemia Chronic pancreatitis Essential hypertension Diabetes mellitus with hyperglycemia, with long-term current use of insulin Neuropathy Kidney calculus Failure of outpatient treatment Increased BMI Alcohol abuse CAD (coronary artery disease) Arthritis Surgical History History of right below knee amputation Status post below-knee amputation S/P debridement Hx of lithotripsy Status post laparoscopic cholecystectomy Hx of heart artery stent Family History Family History Mother [place] (myocardial infarction), Onset Age: 64 Diabetes mellitus HTN (hypertension) Maternal Grandmother Diabetes mellitus Social History Social History Household Members: Spouse Household Members Other:: and daughter Housing: Apartment Do you presently have visiting nurse or other home services: No Alcohol intake: never Patient Tobacco Use Status: Never used Tobacco Tobacco use type: Cigarette Cigarette Packs Per Day: 1 Cigarettes Per Day: 20.0 Years Smoked: 28 e-Cigarette/Vaping Use: Never Used Second Hand Smoke Exposure: Yes Substance Use Type: Marijuana Advance Directives: No Advance Directives Date on File: 04/17/21 service: No Current occupational status: unemployed and disabled Cognitive needs: No Hearing needs: No Vision needs: No Physical Exam ED Vital Signs: Vital Signs - 24 hr 07/06/23 12:47 07/06/23 18:00 Temperature 98.3 F Pulse Rate 85 Respiratory Rate 18 16 Blood Pressure 146/86 H Pulse Oximetry 100 Oxygen Delivery Method Room Air BMI result Body Mass Index 34.0 Vital signs have been reviewed and appear to be correct. Blood pressure elevated. Heart rate normal. Respiratory rate normal. Temperature normal. Oxygen saturation normal. Const General: cooperative, healthy appearing and no acute distress Orientation/consciousness: oriented to person, oriented to place, oriented to time and patient oriented x3 Limitations: no limitations [facility] Head: Yes normocephalic and Yes atraumatic Ears: external ears normal General nose exam: Normal external nose present Face and sinus: Yes face symmetric Mouth: oropharynx normal and moist mucous membranes Throat: Yes uvula midline Eyes Pupils: Equal, round and reactive pupils present Neck Neck: Yes normal visual inspection and Yes supple Resp Effort & Inspection: normal respiratory effort and able to speak in complete sentences Auscultation: clear to auscultation bilaterally Cardio Rate: regular rate Rhythm: regular rhythm Heart sounds: S1 normal heart sound present and S2 normal heart sound present GI Palpation (GI): Soft to palpation and nontender Auscultation: normoactive bowel sounds General: Yes no CVA tenderness Back/Spine/Pelvis Back: no CVA tenderness Skin General skin exam: elasticity normal and turgor normal Wounds: wounds noted left distal lower leg drainage purulent, without odor and open; without any surrounding erythema, left lateral 5th toe no drainage Neuro General: oriented to person, oriented to place, oriented to time, patient oriented x3, moves all extremities, no focal motor deficits and CN's II-XI intact bilaterally Cranial nerves: Yes Equal, round and reactive pupils present Cognition (Neuro): normal cognition Extrem General: Yes full ROM Right lower extremity: abnormal to inspection (right BKA) Left lower extremity: lower leg Details: other (wound to left medial distal lower leg, purulent drainage, no erythema/warmth) and foot Details: other (erythema lateral right 5th toe without drainage) Psych Mental Status: mental status grossly normal Affect: normal affect Thought process: Normal thought process present Course Course Course Narrative: RME: 58 yold male with DM, and right leg amputatuion presents to the ED for re- evlaution of left ankle, pinky ulcer. Patient states no redness, pus discharge, or foul odor. labs xray ordered Medications Administered Discontinued Medications Generic Name Dose Route Start Last Admin Trade Name Freq PRN Reason Stop Dose Admin Sodium Chloride 1,000 mls @ 999 mls/hr 07/06/23 15:15 07/06/23 16:47 Ns IV 07/06/23 16:15 Infused .Q1H1M SHELLY Infusion Medical Decision Making Medical Decision Making [facility] Narrative: Patient is a 58-year-old Bhutanese-speaking male with history of T2DM, R BKA, PAD, chronic pancreatitis, HTN, neuropathy, CAD presenting to the emergency department with worsening ulcer to left lower leg as well as new ulcer to left 5th toe. On exam patient is awake, A+Ox3, BP mildly elevated, VS otherwise WNL, afebrile, normal neurological exam without focal deficits, physical exam findings as above. Given reported symptoms and physical exam findings, initial differential includes cellulitis, chronic wound, osteomyelitis, dehydration. Do not suspect sepsis. Labs notable for no leukocytosis, ESR improved from 07/02, elevated lactic likely related to dehydration, CRP also improved from 07/02. X- ray notable for no evidence of osteomyelitis to left 5th toe, tibia, or fibula. My interpretation is in agreement with the radiologist's interpretation. Overall patient seems improved from visit on 07/02. Repeat lactic is normal. Feel patient is stable for discharge home to continue PO antibiotics, will refer to wound clinic for further management of wounds. Results discussed with patient and all questions answered. Return precautions discussed at bedside. Patient verbalized understanding of and agreement with plan. Differential Diagnosis Differential Diagnoses: The differential diagnosis associated with the presentation includes As per [facility]. Admission/Observation Consideration of admission/observation: Escalation of care including admission/observation considered Lab Data [facility] Lab Attestation statement: I reviewed the patient's lab results. As per MDM. 07/06/23 13:19 07/06/23 13:19 Labs: Lab Results 07/06/23 07/06/23 Range/Units 13:19 18:11 WBC 10.6 (4.8-10.8) X10*3/uL RBC 5.60 (4.60-5.80) X10*6/uL Hgb 14.9 (14.0-18.0) g/dl Hct 46.9 (42.0-52.0) % MCV 83.8 (80.0-98.0) fL MCH 26.6 L (27.0-33.0) pg MCHC 31.8 (31.0-36.0) g/dl RDW 14.9 (11.0-16.0) % Plt Count 235 (160-400) X10*3/uL MPV 10.6 (9.4-12.4) fL Immature Gran % (Auto) 0.6 H (0.0-0.4) % Neut % (Auto) 56.8 (45-73) % Lymph % (Auto) 20.6 (20-40) % Sunflower % (Auto) 5.9 (2-11) % Eos % (Auto) 15.3 H (0-4) % Baso % (Auto) 0.8 (0-2) % Lymph # (Auto) 2.2 (1.2-4.9) X10*3/uL Sunflower # (Auto) 0.6 (0.1-1.2) X10*3/uL Eos # (Auto) 1.6 H (0.0-0.4) X10*3/uL Baso # (Auto) 0.1 (0.0-0.2) X10*3/uL Abs Immat Gran (auto) 0.06 H (0.00-0.03) X10*3/uL Absolute Neuts (auto) 6.0 (2.0-8.3) x10*3/uL Absolute Nucleated RBC 0.000 (0.0-0.012) X10*3/uL Nucleated RBC % (auto) 0.0 (0.0-0.2) /100WBC ESR 29 H (0-15) MM/HR Sodium 137 (135-145) mmol/L Potassium 4.3 (3.3-5.1) mmol/L Chloride 104 (96-108) mmol/L Carbon Dioxide 22 (22-29) mmol/L Anion Gap 15 (12-20) BUN 18 H (9-16) mg/dL Creatinine 1.05 (0.5-1.4) mg/dL Estim Creat Clear Calc 92.3 Estimated GFR > 60 Random Glucose 325 H (60-115) mg/dL Lactic Acid 2.1 H* (0.5-2.0) mmol/L Lactic Acid F/U @ 2Hr 1.0 (0.5-2.0) mmol/L Calcium 9.1 (8.4-10.2) mg/dL Total Bilirubin 0.2 (0.0-1.0) mg/dL AST 16 (5-37) U/L ALT 18 (0-40) U/L Alkaline Phosphatase 109 (39-117) U/L C-Reactive Protein 1.73 H (< or = 0.50) mg/dL Total Protein 7.9 (6.5-8.0) g/dL Albumin 3.7 (3.5-5.0) g/dL Independent Interpretation I performed an independent interpretation of an: Plain X-Ray Interpretation: No evidence of osteomyelitis to tibia, fibula, left foot Radiology Impression Discussion of test interpretation with radiology: I have reviewed the radiologist's reading. Radiologist Impression: XR/XR foot LT 2V IMPRESSION: 1. Soft tissue swelling lateral to the head of the fifth metatarsal without evidence of osteomyelitis. 2. Marked vascular calcification. External Record Review External record reviewed: Inpatient record, Office record and Outpatient record Chronic Conditions Patient?s care impacted by: Diabetes and Hypertension Critical Care Time Critical Care Time Critical Care Time: Yes Total Critical Care Time: 45 Attestation: I have personally provided critical care time exclusive of time spent on separately billable procedures. Time includes review of lab data, radiology results, discussion with consultants, and monitoring for potential decompensation. Intervention performed as documented. Discharge Plan Discharge Clinical Impression: Chronic wound, Dehydration Patient Disposition: Home, Self-Care Additional Instructions: Complete el ciclo completo de antibi?ticos que le recetaron el 01/05/2023. Lo derivar?n al [facility] para un tratamiento adicional. Llame a chilel oficina ma?brian por la ma?brian a primera hora para programar subha milagros. [place] un seguimiento con chilel proveedor de atenci?n primaria. Regrese al departamento de emergencias si presenta enrojecimiento nuevo, hinchaz?n, aumento del drenaje, empeoramiento del dolor, fiebre de 100.4? F o m?s, o cualquier otro s?ntoma preocupante. Prescriptions: No Action (DME) Bedside commode See Rx Instructions .Route .MEDSUPPLY Qty: 1 0RF Rx Instructions: As directed (DME) walker with wheels See Rx Instructions .Route .MEDSUPPLY Qty: 1 0RF Rx Instructions: As directed (DME) pen needle, diabetic [BD Ultra-Fine Short Pen Needle] 31 gauge x 5/16 needle See Rx Instructions .ROUTE .COMPLEX Qty: 100 5RF Dose Instruction: USE MARÍA LO INDICADO BENNETT VECES AL LIZZIE ANTES DE LAS COMIDAS Rx Instructions: USE MARÍA LO INDICADO BENNETT VECES AL LIZZIE ANTES DE LAS COMIDAS (DME) recliner See Rx Instructions .Route .MEDSUPPLY Qty: 1 0RF Rx Instructions: As directed (DME) FreeStyle Frank 2 [place] Misc See Rx Instructions .Route Qty: 1 0RF Rx Instructions: As directed metoprolol succinate 50 mg tablet extended release 24 hr 50 mg PO DAILY Qty: 90 1RF aspirin 81 mg tablet,chewable 81 mg PO DAILY Qty: 90 1RF (DME) FreeStyle Frank 2 Sensor Kit See Rx Instructions .Route Qty: 2 8RF Rx Instructions: As directed change every 14 days gabapentin 600 mg tablet 600 mg PO TID Qty: 90 4RF insulin glargine [Lantus Solostar U-100 Insulin] 100 unit/mL (3 mL) insulin pen 24 unit subcut BEDTIME Qty: 15 6RF insulin lispro 100 unit/mL insulin pen 17 unit subcut TID Qty: 15 4RF omeprazole 40 mg capsule,delayed release(DR/EC) 40 mg PO DAILY Qty: 30 2RF sertraline 50 mg tablet 75 mg PO BEDTIME Qty: 135 1RF clopidogrel 75 mg tablet 75 mg PO DAILY acetaminophen 500 mg Tablet 1,000 mg PO BID PRN (Reason: Pain, Mild) mupirocin 2 % ointment 1 appl topical BID Qty: 15 0RF tramadol 50 mg tablet 50 mg PO Q6H PRN (Reason: pain) Qty: 20 0RF cephalexin 500 mg capsule 500 mg PO Q12H Qty: 20 0RF doxycycline monohydrate 100 mg capsule 100 mg PO BID Qty: 20 0RF tramadol 50 mg tablet 50 mg PO BID PRN (Reason: pain) Qty: 7 0RF (DME) blood-glucose meter [FreeStyle Lite Meter] Kit See Rx Instructions .Route Rx Instructions: As directed (DME) FreeStyle Lite Strips Strip See Rx Instructions .Route Rx Instructions: As directed Farxiga 10 mg tablet 10 mg PO DAILY valsartan 40 mg tablet 40 mg PO BID atorvastatin 80 mg tablet 80 mg PO BEDTIME Jardiance 10 mg tablet 10 mg PO DAILY Referrals: [facility] [place] [facility] [place]Provider Group] Interventions: ED Discharge Assessment Last Done: 07/06/23 18:56 Discharge Date/Time: 07/06/23 18:56 Print Language: Bhutanese
[2023-07-06 13:26] LABS: MANUAL DIFF FLAG NO
[2023-07-06 13:32] LABS: Basophils Absolute Auto 0.1 X10*3/uL (0.0-0.2); Basophils Percent Auto 0.8 % (0-2); Eosinophils Absolute Auto 1.6 X10*3/uL (0.0-0.4); Eosinophils Percent Auto 15.3 % (0-4); Hematocrit 46.9 % (42.0-52.0); Hemoglobin 14.9 g/dl (14.0-18.0); Imm Gran Abs Auto 0.06 X10*3/uL (0.00-0.03); Imm Gran Pct Auto 0.6 % (0.0-0.4); Lymphocytes Absolute Auto 2.2 X10*3/uL (1.2-4.9); Lymphocytes Percent Auto 20.6 % (20-40); Mean Corpuscular HGB Conc 31.8 g/dl (31.0-36.0); Mean Corpuscular Hemoglobin 26.6 pg (27.0-33.0); Mean Corpuscular Volume 83.8 fL (80.0-98.0); Mean Platelet Volume 10.6 fL (9.4-12.4); Monocytes Absolute Auto 0.6 X10*3/uL (0.1-1.2); Monocytes Percent Auto 5.9 % (2-11); Neutrophils Percent Auto 56.8 % (45-73); Platelet Count 235 X10*3/uL (160-400); Red Cell Distribution Width 14.9 % (11.0-16.0); White Blood Count 10.6 X10*3/uL (4.8-10.8)
[2023-07-06 13:39] LABS: Lactic Acid 2.1 mmol/L (0.5-2.0)
[2023-07-06 13:41] LABS: Alanine Aminotransferase 18 U/L (0-40); Albumin Level 3.7 g/dL (3.5-5.0); Alkaline Phosphatase 109 U/L (39-117); Anion Gap 15 (12-20); Aspartate Amino Transferase 16 U/L (5-37); Bilirubin Total 0.2 mg/dL (0.0-1.0); Blood Urea Nitrogen 18 mg/dL (9-16); C Reactive Protein 1.73 mg/dL (< or = 0.50); Calcium 9.1 mg/dL (8.4-10.2); Carbon Dioxide 22 mmol/L (22-29); Chloride 104 mmol/L (96-108); Creatinine Clr Calc Pharmacy 92.3; Estimated Glomerular Filt Rate > 60; Glucose Random 325 mg/dL (60-115); Potassium 4.3 mmol/L (3.3-5.1); Sodium 137 mmol/L (135-145); Total Protein 7.9 g/dL (6.5-8.0)
[2023-07-06 14:14] LABS: Erythrocyte Sedimentation Rate 29 MM/HR (0-15)
[2023-07-06] MEDS: 0.9 % Sodium Chloride 1,000 ML 999 ML IV (15:12)
[2023-07-06 15:23] LABS: Reflex Lactate? Lactic Acid Added
[2023-07-06 18:00] VITALS: RESP 16
--- NOTE | 2023-07-06 18:55 | PC.NURSE ---
non adherent dressing applied to left lan and left 5th toe prior to discharge.
== END 2023-07-06 18:56 | disposition home or self-care (01) ==
PROVIDERS: Physician Assistant; Emergency Provider Student in an Organized Health Care Education/Training Program; PCP Internal Medicine
DX: L97.929 Non-pressure chronic ulcer of unspecified part of left lower leg with unspecified severity (principal); E86.0 Dehydration; E11.9 Type 2 diabetes mellitus without complications; I10 Essential (primary) hypertension; E78.5 Hyperlipidemia, unspecified; Z95.5 Presence of coronary angioplasty implant and graft
CPT/HCPCS: 36415; 73590; 73620; 80053; 83605; 85025; 85652; 86140; 87040; 96360; 96361; 99284

== ENCOUNTER 2023-07-11 09:34 | Outpatient (AMB) | payer MEDICARE, SELFPAY ==
--- NOTE | 2023-07-11 09:37 | MHC.OFFVIS ---
Intake Vital Signs 07/11/23 09:38 Height 5 ft 9 in Weight 230 lb BMI 34.0 Intake Visit Reasons: 2 week follow up left leg angiogram Intake Note: 2 week follow up Left LE Angiogram 06/28/23. Pt states that he has 2 wounds and has been to the ED twice since procedure. He has a wound on his lan and his Left 5th toe. All of his toes are bright red and angry looking. minimal drainage, changing bandage daily with dry dressing. ED told him he should have woundcare nurse but never did a referral. Has woundcare appt on the of this month. Accompanied by: Spouse Allergies No Known Allergies [No Known Allergies*] Allergy (Verified 07/11/23 09:48) HPI 2 week follow up left leg angiogram HPI Details Very pleasant 58-year-old gentleman well known to me for history of peripheral vascular disease. He actually underwent endovascular intervention on June 28 for the left lower extremity. He underwent right BKA in August of 2021 with subsequent revision in November of 2021. He presents concerned about his left lower extremity. He actually had 2 emergency room visits. On his visit on July 02 he was discharged with cephalexin 500 mg b.i.d. along with doxycycline 100 mg b.i.d. and tramadol for pain control. He return to the emergency room on July 06 with no significant improvement. Today he presents to my office with complaints of pain and discoloration of the foot. He is quite concerned with significant other at bedside. [facility] Medical History (Updated 07/11/23 @ 10:26 by Berto Sheppard MD) Heartburn symptom Amputation stump infection Major depression, recurrent Erectile dysfunction Dyslipidemia Diabetes mellitus, with long-term current use of insulin Amputation stump complication Intractable left heel pain PAD (peripheral artery disease) Chronic 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 Type 2 diabetes mellitus with diabetic polyneuropathy Type 2 diabetes mellitus with hyperglycemia Hyperlipidemia Chronic pancreatitis Essential hypertension Diabetes mellitus with hyperglycemia, with long-term current use of insulin Neuropathy Kidney calculus Failure of outpatient treatment Increased BMI Alcohol abuse CAD (coronary artery disease) Arthritis Surgical History (Updated 07/11/23 @ 09:51 by RASHIDA Kent) S/P angiogram of extremity (06/28/23) History of right below knee amputation Status post below-knee amputation S/P debridement Hx of lithotripsy Status post laparoscopic cholecystectomy Hx of heart artery stent Family History Mother [place] (myocardial infarction), Onset Age: 64 Diabetes mellitus HTN (hypertension) Maternal Grandmother Diabetes mellitus Social History (Updated 07/11/23 @ 09:50 by RASHIDA Kent) Household Members: Spouse Household Members Other:: and daughter Housing: Apartment Do you presently have visiting nurse or other home services: No Alcohol intake: never Patient Tobacco Use Status: Current everyday Tobacco user Tobacco use type: Cigarette Cigarette Packs Per Day: 0.01 Cigarettes Per Day: 2 Years Smoked: 28 e-Cigarette/Vaping Use: Never Used Second Hand Smoke Exposure: Yes Substance Use Type: Marijuana Advance Directives Date on File: 04/17/21 service: No Current occupational status: unemployed and disabled Cognitive needs: No Hearing needs: No Vision needs: No Review of Systems Const All systems reviewed & are unremarkable except as noted in HPI and below Reports no additional complaints ENT Reports Normal hearing present Card Denies chest pain, Denies chest pain at rest, Denies chest pain with activity and Denies pedal edema Resp Denies cough GI Denies abdominal pain Musc Denies abnormal gait, Denies muscle cramps and Denies radiating pain into limb Skin/Breast Denies skin ulcer and Denies wounds Neuro Reports Normal hearing present and Denies abnormal gait Psych Reports no additional complaints Physical Exam Vital Signs: BMI result Body Mass Index 34.0 Const General: cooperative, healthy appearing and comfortable Orientation/consciousness: oriented to person, oriented to place and oriented to time HEENT Head: Yes normal to inspection Neck Neck: Yes normal visual inspection Carotids: no bruits Chest Chest palpation & inspection: normal inspection of the chest Resp Effort & Inspection: normal respiratory effort and able to speak in complete sentences Auscultation: clear to auscultation bilaterally, no crackles, no rales, no rhonchi and no wheezes Cardio Rate: regular rate Rhythm: regular rhythm Heart sounds: S1 normal heart sound present and S2 normal heart sound present Bruits: no carotid bruits Peripheral pulses: Peripheral pulses 2+ throughout GI Inspection: Yes normal to inspection Skin Other: Left medial calf ulcer left lateral 5th toe ulcer along with erythema along the entire forefoot. Wounds: no wounds Hair: normal Neuro General: oriented to person, oriented to place and oriented to time Cranial nerves: Yes CN's II-XII intact bilaterally and Yes Normal hearing present Cognition (Neuro): normal cognition Motor exam (neuro): 5/5 motor strength present throughout Extrem Other: venous exam: No significant superficial varicosities or spider telangiectasias, minimal edema General: No clubbing, No cyanosis and No edema Psych Appearance: grossly normal Mental Status: mental status grossly normal Speech and movement: Normal speech and movement present Results Reviewed Results Reviewed: Angiogram from 06/28/2023 was reviewed Assessment & Plan Assessment & Plan (1) PAD (peripheral artery disease): Comment: 04/14/2021 - atherectomy and plasty of left SFA and popliteal artery, angioplasty of left anterior tibial posterior tibial and peroneal arteries 08/31/2021 - right BKA 11/29/2021 - revision right BKA 06/28/2023 - left anterior tibial plasty and perennial plasty and popliteal plasty Code(s): I73.9 - Peripheral vascular disease, unspecified Plan: In short patient has nonhealing ulcer with concerns infection. He has failed conservative outpatient treatment with Keflex and doxycycline. In addition he does have pain control issues. He was sent over to the emergency room for admission and IV antibiotic therapy. We will follow him as an inpatient. Thank you for allowing us to assist in his care. Please note I spent 50 minutes in reviewing the patient's record, imaging review, management services, coordinating transfer to the emergency room and subsequent admission. Coding Level of Care Code Est Pt Level 5 (40391) Diagnoses PAD (peripheral artery disease) I73.9
[2023-07-11 09:38] VITALS: BMI 34.0
== END 2023-07-11 10:25 | disposition home or self-care (01) ==
PROVIDERS: PCP Internal Medicine; Visit Provider Surgery Vascular Surgery
DX: I73.9 Peripheral vascular disease, unspecified (principal)
CPT/HCPCS: 99215

== ENCOUNTER → 2023-07-11 09:34 | Outpatient (BNVA) | payer MEDICARE, SELFPAY | PROVIDERS: PCP Internal Medicine; Visit Provider Surgery Vascular Surgery | DX: I73.9 Peripheral vascular disease, unspecified (principal) | CPT/HCPCS: 99212 ==

== ENCOUNTER 2023-07-11 10:38 | Inpatient (IN) | payer MEDICARE, SELFPAY ==
--- NOTE | ~2023-07-11 | XR_ITS ---
EXAMINATION: XR FOOT, LEFT CLINICAL INFORMATION: Left foot pain following a procedure. Evaluate for osteomyelitis. COMPARISON: Left foot radiographs dated 07/06/2023. TECHNIQUE: AP, lateral, and oblique views of the left foot. FINDINGS: Soft tissue swelling along the lateral aspect of the forefoot, most prominent adjacent to the fifth metatarsal head, similar when compared to the prior examination. There appears to be a soft tissue defect in this region, unchanged. No radiopaque foreign body or soft tissue calcification in this region. No adjacent periosteal reaction or cortical erosion to suggest acute osteomyelitis. Early osteomyelitis may be occult on plain radiographs. No acute fracture or dislocation. No concerning lytic or blastic osseous lesion. Plantar and dorsal calcaneal enthesophytes. Prominent atherosclerotic calcifications. XR/XR foot LT min 3V IMPRESSION: 1. Soft tissue swelling along the lateral aspect of the forefoot, most prominent adjacent to the fifth metatarsal head. There appears to be a soft tissue defect in this region, unchanged. 2. No adjacent periosteal reaction or cortical erosion to suggest acute osteomyelitis. Early osteomyelitis may be occult on plain radiographs.
[2023-07-11 10:42] VITALS: BP 176/86; PULSE 96; RESP 18; TEMP 36.6; O2SAT 98; BMI 34.0
[2023-07-11 12:06] LABS: MANUAL DIFF FLAG NO
[2023-07-11 12:17] LABS: Basophils Absolute Auto 0.1 X10*3/uL (0.0-0.2); Basophils Percent Auto 0.8 % (0-2); Eosinophils Absolute Auto 1.5 X10*3/uL (0.0-0.4); Eosinophils Percent Auto 13.8 % (0-4); Hemoglobin 14.9 g/dl (14.0-18.0); Imm Gran Abs Auto 0.09 X10*3/uL (0.00-0.03); Imm Gran Pct Auto 0.8 % (0.0-0.4); Lymphocytes Absolute Auto 2.2 X10*3/uL (1.2-4.9); Lymphocytes Percent Auto 19.5 % (20-40); Mean Corpuscular HGB Conc 31.7 g/dl (31.0-36.0); Mean Corpuscular Hemoglobin 26.3 pg (27.0-33.0); Mean Platelet Volume 11.1 fL (9.4-12.4); Monocytes Absolute Auto 0.7 X10*3/uL (0.1-1.2); Monocytes Percent Auto 6.6 % (2-11); Neutrophils Absolute Auto 6.5 x10*3/uL (2.0-8.3); Neutrophils Percent Auto 58.5 % (45-73); Platelet Count 246 X10*3/uL (160-400); Red Blood Count 5.66 X10*6/uL (4.60-5.80); Red Cell Distribution Width 15.1 % (11.0-16.0); White Blood Count 11.1 X10*3/uL (4.8-10.8)
[2023-07-11 12:21] LABS: Lactic Acid 1.7 mmol/L (0.5-2.0)
[2023-07-11 12:28] LABS: Anion Gap 14 (12-20); Blood Urea Nitrogen 18 mg/dL (9-16); C Reactive Protein 1.31 mg/dL (< or = 0.50); Calcium 9.2 mg/dL (8.4-10.2); Carbon Dioxide 24 mmol/L (22-29); Chloride 102 mmol/L (96-108); Creatinine Clr Calc Pharmacy 93.2; Estimated Glomerular Filt Rate > 60; Glucose Random 317 mg/dL (60-115); Potassium 4.1 mmol/L (3.3-5.1); Sodium 136 mmol/L (135-145)
[2023-07-11 12:57] LABS: Erythrocyte Sedimentation Rate 32 MM/HR (0-15)
[2023-07-11] MEDS: Piperacillin Sodium/Tazobactam 3.375 GM in 0.9 % Sodium Chloride 50 ML IV (13:12)
[2023-07-11 13:18] VITALS: BP 159/75; PULSE 79; RESP 18; O2SAT 98
[2023-07-11] MEDS: Morphine Sulfate 4 MG/ML CARTRIDGE IVPUSH ×3 (13:50→23:48)
[2023-07-11] MEDS: vancomycin/NS 2,000 MG/500 ML PLAST..BAG 250 MG IV (13:51)
[2023-07-11 13:58] VITALS: BP 151/78; PULSE 72; RESP 14; O2SAT 97
--- NOTE | 2023-07-11 14:25 | ED_ITS ---
HPI - General Adult General Chief complaint: General Medical Stated complaint: L Leg Infection Sent By Dr Time Seen by Provider: 07/11/23 11:00 Source: patient and other (Dr. Sheppard) Mode of arrival: wheelchair Limitations: no limitations History of Present Illness HPI narrative: patient sent in by vascular surgeon for diabetic foot infection. Increased pain and redness, no fever Onset (ago): day(s) Severity: moderate Related Data Home Medications Medication Instructions Recorded Confirmed acetaminophen 500 mg tablet 1,000 mg PO BID PRN Pain, Mild 04/10/22 06/28/23 clopidogrel 75 mg tablet 75 mg PO DAILY 04/10/22 06/28/23 blood sugar diagnostic (FreeStyle 12/01/22 06/28/23 Lite Strips) blood-glucose meter (FreeStyle 12/01/22 06/28/23 Lite Meter kit) atorvastatin 80 mg tablet 80 mg PO BEDTIME 06/20/23 06/28/23 dapagliflozin propanediol 10 mg 10 mg PO DAILY 06/20/23 06/28/23 tablet (Farxiga) empagliflozin 10 mg tablet 10 mg PO DAILY 06/20/23 06/28/23 (Jardiance) valsartan 40 mg tablet 40 mg PO BID 06/20/23 06/28/23 Previous Rx's Medication Instructions Recorded Bedside commode #1 ea 04/18/22 walker with wheels #1 ea 08/19/22 pen needle, diabetic 31 gauge x #100 ea 10/20/22/ (BD Ultra-Fine Short Pen Needle) recliner #1 ea 11/23/22 flash glucose scanning reader #1 ea 12/02/22 (FreeStyle Frank 2 Shaniko) metoprolol succinate 50 mg 50 mg PO DAILY #90 tabs 01/27/23 tablet,extended release 24 hr aspirin 81 mg chewable tablet 81 mg PO DAILY #90 tabs 02/07/23 mupirocin 2 % topical ointment 1 appl topical BID #15 grams 02/14/23 tramadol 50 mg tablet 50 mg PO Q6H PRN pain #20 tabs 02/14/23 flash glucose sensor (FreeStyle #2 ea 03/06/23 Frank 2 Sensor kit) gabapentin 600 mg tablet 600 mg PO TID #90 tabs 05/09/23 insulin glargine 100 unit/mL (3 24 unit (0.24 mL) subcut BEDTIME 05/18/23 mL) subcutaneous pen (Lantus #15 mL Solostar U-100 Insulin) insulin lispro 100 unit/mL 17 unit (0.17 mL) subcut TID #15 mL 05/18/23 subcutaneous pen omeprazole 40 mg capsule,delayed 40 mg PO DAILY #30 caps 06/08/23 release sertraline 50 mg tablet 75 mg (1.5 x 50 mg) PO BEDTIME 06/09/23 #135 tabs cephalexin 500 mg capsule 500 mg PO Q12H #20 caps 07/02/23 doxycycline monohydrate 100 mg 100 mg PO BID #20 caps 07/02/23 capsule tramadol 50 mg tablet 50 mg PO BID PRN pain #7 tabs 07/02/23 Allergies Allergy/AdvReac Type Severity Reaction Status Date / Time No Known Allergies Allergy Verified 07/11/23 10:41 [No Known Allergies*] Review of Systems 2 Review of Systems: Yes all other systems are reviewed and are negative Neurologic: Denies Sensory deficit (Neuro) [facility] Past Medical History Medical History Heartburn symptom Amputation stump infection Major depression, recurrent Erectile dysfunction Dyslipidemia Diabetes mellitus, with long-term current use of insulin Amputation stump complication Intractable left heel pain PAD (peripheral artery disease) Chronic 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 Type 2 diabetes mellitus with diabetic polyneuropathy Type 2 diabetes mellitus with hyperglycemia Hyperlipidemia Chronic pancreatitis Essential hypertension Diabetes mellitus with hyperglycemia, with long-term current use of insulin Neuropathy Kidney calculus Failure of outpatient treatment Increased BMI Alcohol abuse CAD (coronary artery disease) Arthritis Surgical History S/P angiogram of extremity (06/28/23) History of right below knee amputation Status post below-knee amputation S/P debridement Hx of lithotripsy Status post laparoscopic cholecystectomy Hx of heart artery stent Family History Family History Mother [place] (myocardial infarction), Onset Age: 64 Diabetes mellitus HTN (hypertension) Maternal Grandmother Diabetes mellitus Social History Social History Household Members: Spouse Household Members Other:: and daughter Housing: Apartment Do you presently have visiting nurse or other home services: No Alcohol intake: never Patient Tobacco Use Status: Current everyday Tobacco user Tobacco use type: Cigarette Cigarette Packs Per Day: 0.01 Cigarettes Per Day: 2 Years Smoked: 28 e-Cigarette/Vaping Use: Never Used Second Hand Smoke Exposure: Yes Substance Use Type: Marijuana Advance Directives: No Advance Directives Information Provided: Yes Advance Directives Date on File: 04/17/21 service: No Current occupational status: unemployed and disabled Cognitive needs: No Hearing needs: No Vision needs: No Physical Exam ED Vital Signs: Vital Signs - 24 hr 07/11/23 10:42 07/11/23 13:18 07/11/23 13:58 Temperature 98 F Pulse Rate 96 79 72 Respiratory Rate 18 18 14 Blood Pressure 176/86 H 159/75 H 151/78 H Pulse Oximetry 98 98 97 Oxygen Delivery Method Room Air Room Air Room Air BMI result Body Mass Index 34.0 Const Other: male looking older than stated age Nutritional Appearance: average body habitus Orientation/consciousness: oriented to person and patient oriented x3 Limitations: no limitations HENMT Head: Yes normal to inspection Ears: external ears normal General nose exam: Normal external nose present Mouth: Normal oral and palatal mucosa present and oropharynx normal Throat: Yes posterior oropharynx normal Eyes General: appearance normal, both eyes and all related structures Neck Neck: Yes normal visual inspection Chest Chest palpation & inspection: normal inspection of the chest Resp Auscultation: clear to auscultation bilaterally Cardio Jugular venous distension: no JVD Rate: regular rate Rhythm: regular rhythm Heart sounds: S1 normal heart sound present and S2 normal heart sound present GI Inspection: Yes normal to inspection Palpation (GI): Soft to palpation, nontender and No hepatosplenomegaly present Auscultation: normal bowel sounds General: Yes no CVA tenderness Back/Spine/Pelvis Back: no CVA tenderness Skin General skin exam: no rashes or lesions noted Neuro General: oriented to person and patient oriented x3 Cranial nerves: Yes CN's II-XII intact bilaterally Motor exam (neuro): 5/5 motor strength present throughout Sensory Exam: No Sensory deficit (Neuro) Extrem Other: right leg amputation, left foot with redness to toes, DP not palpable but able to doppler Psych Appearance: grossly normal Course Reevaluation(s) Reevaluation #1: Discussed with Dr. Sheppard will start vancomycin and zosyn and admit Time: 14:29 Medications Administered Discontinued Medications Generic Name Dose Route Start Last Admin Trade Name Alyssa PRN Reason Stop Dose Admin Piperacillin Sod/Tazobactam 50 mls @ 100 mls/hr 07/11/23 11:34 07/11/23 13:44 Sod 3.375 gm/ Sodium Chloride IV 07/11/23 12:03 Infused ONCE ONE Infusion Vancomycin HCl 2,000 mg in 500 mls @ 250 mls/hr 07/11/23 11:45 07/11/23 13:51 Vancomycin/Ns IV 07/11/23 13:44 250 mls/hr ONCE ONE Administration Insulin Human Lispro 8 unit 07/11/23 14:17 07/11/23 14:35 Insulin Lispro 100 Unit/Ml 3 Ml Vial SUBCUT 07/11/23 14:18 4 unit ONCE ONE Administration Morphine Sulfate 4 mg 07/11/23 13:20 07/11/23 13:50 Morphine Sulfate 4 Mg/Ml Cartridge IVPUSH 07/11/23 13:21 4 mg ONCE ONE Administration Protocol Medical Decision Making Differential Diagnosis Differential Diagnoses: The differential diagnosis associated with the presentation includes (diabetic foot infection, osteomyelitis, cellulitis all considered) Admission/Observation Consideration of admission/observation: Escalation of care including admission/observation considered (upon arrival patient was considered for admission) Consult Healthcare Provider Management of the patient was discussed with: Hospitalist and [employer] (Dr. Sheppard) Lab Data MDM Lab Attestation statement: I reviewed the patient's lab results. (mildly elevated WBC) 07/11/23 11:58 07/11/23 11:58 Labs: Lab Results 07/11/23 07/11/23 07/11/23 Range/Units 11:57 11:58 12:01 WBC 11.1 H (4.8-10.8) X10*3/uL RBC 5.66 (4.60-5.80) X10*6/uL Hgb 14.9 (14.0-18.0) g/dl Hct 47.0 (42.0-52.0) % MCV 83.0 (80.0-98.0) fL MCH 26.3 L (27.0-33.0) pg MCHC 31.7 (31.0-36.0) g/dl RDW 15.1 (11.0-16.0) % Plt Count 246 (160-400) X10*3/uL MPV 11.1 (9.4-12.4) fL Immature Gran % (Auto) 0.8 H (0.0-0.4) % Neut % (Auto) 58.5 (45-73) % Lymph % (Auto) 19.5 L (20-40) % [place] % (Auto) 6.6 (2-11) % Eos % (Auto) 13.8 H (0-4) % Baso % (Auto) 0.8 (0-2) % Lymph # (Auto) 2.2 (1.2-4.9) X10*3/uL [place] # (Auto) 0.7 (0.1-1.2) X10*3/uL Eos # (Auto) 1.5 H (0.0-0.4) X10*3/uL Baso # (Auto) 0.1 (0.0-0.2) X10*3/uL Abs Immat Gran (auto) 0.09 H (0.00-0.03) X10*3/uL Absolute Neuts (auto) 6.5 (2.0-8.3) x10*3/uL Absolute Nucleated RBC 0.000 (0.0-0.012) X10*3/uL Nucleated RBC % (auto) 0.0 (0.0-0.2) /100WBC ESR 32 H (0-15) MM/HR Sodium 136 (135-145) mmol/L Potassium 4.1 (3.3-5.1) mmol/L Chloride 102 (96-108) mmol/L Carbon Dioxide 24 (22-29) mmol/L Anion Gap 14 (12-20) BUN 18 H (9-16) mg/dL Creatinine 1.04 (0.5-1.4) mg/dL Estim Creat Clear Calc 93.2 Estimated GFR > 60 POC Glucose (60-115) mg/dL Random Glucose 317 H (60-115) mg/dL Lactic Acid 1.7 (0.5-2.0) mmol/L Calcium 9.2 (8.4-10.2) mg/dL C-Reactive Protein 1.31 H (< or = 0.50) mg/dL 07/11/23 Range/Units 14:28 WBC (4.8-10.8) X10*3/uL RBC (4.60-5.80) X10*6/uL Hgb (14.0-18.0) g/dl Hct (42.0-52.0) % MCV (80.0-98.0) fL MCH (27.0-33.0) pg MCHC (31.0-36.0) g/dl RDW (11.0-16.0) % Plt Count (160-400) X10*3/uL MPV (9.4-12.4) fL Immature Gran % (Auto) (0.0-0.4) % Neut % (Auto) (45-73) % Lymph % (Auto) (20-40) % [place] % (Auto) (2-11) % Eos % (Auto) (0-4) % Baso % (Auto) (0-2) % Lymph # (Auto) (1.2-4.9) X10*3/uL [place] # (Auto) (0.1-1.2) X10*3/uL Eos # (Auto) (0.0-0.4) X10*3/uL Baso # (Auto) (0.0-0.2) X10*3/uL Abs Immat Gran (auto) (0.00-0.03) X10*3/uL Absolute Neuts (auto) (2.0-8.3) x10*3/uL Absolute Nucleated RBC (0.0-0.012) X10*3/uL Nucleated RBC % (auto) (0.0-0.2) /100WBC ESR (0-15) MM/HR Sodium (135-145) mmol/L Potassium (3.3-5.1) mmol/L Chloride (96-108) mmol/L Carbon Dioxide (22-29) mmol/L Anion Gap (12-20) BUN (9-16) mg/dL Creatinine (0.5-1.4) mg/dL Estim Creat Clear Calc Estimated GFR POC Glucose 232 H (60-115) mg/dL Random Glucose (60-115) mg/dL Lactic Acid (0.5-2.0) mmol/L Calcium (8.4-10.2) mg/dL C-Reactive Protein (< or = 0.50) mg/dL Independent Interpretation I performed an independent interpretation of an: Plain X-Ray (no lytic lesions of foot) Independent Historian Clinical information obtained from an independent historian. History obtained from or confirmed by: Spouse External Record Review External record reviewed: Inpatient record Tests considered The following testing was considered but not selected: MRI of foot considered but no lytic lesion, sed rate 30 Chronic Conditions Patient?s care impacted by: Diabetes, Hypertension and Other (vascular disease) Discharge Plan Discharge Clinical Impression: Diabetic foot infection Patient Disposition: Admitted As Inpatient Prescriptions: No Action (DME) Bedside commode See Rx Instructions .Route .MEDSUPPLY Qty: 1 0RF Rx Instructions: As directed (DME) walker with wheels See Rx Instructions .Route .MEDSUPPLY Qty: 1 0RF Rx Instructions: As directed (DME) pen needle, diabetic [BD Ultra-Fine Short Pen Needle] 31 gauge x 5/16 needle See Rx Instructions .ROUTE .COMPLEX Qty: 100 5RF Dose Instruction: USE MARÍA LO INDICADO BENNETT VECES AL LIZZIE ANTES DE LAS COMIDAS Rx Instructions: USE MARÍA LO INDICADO BENNETT VECES AL LIZZIE ANTES DE LAS COMIDAS (DME) recliner See Rx Instructions .Route .MEDSUPPLY Qty: 1 0RF Rx Instructions: As directed (DME) FreeStyle Frank 2 Shaniko Misc See Rx Instructions .Route Qty: 1 0RF Rx Instructions: As directed metoprolol succinate 50 mg tablet extended release 24 hr 50 mg PO DAILY Qty: 90 1RF aspirin 81 mg tablet,chewable 81 mg PO DAILY Qty: 90 1RF (DME) FreeStyle Frank 2 Sensor Kit See Rx Instructions .Route Qty: 2 8RF Rx Instructions: As directed change every 14 days gabapentin 600 mg tablet 600 mg PO TID Qty: 90 4RF insulin glargine [Lantus Solostar U-100 Insulin] 100 unit/mL (3 mL) insulin pen 24 unit subcut BEDTIME Qty: 15 6RF insulin lispro 100 unit/mL insulin pen 17 unit subcut TID Qty: 15 4RF omeprazole 40 mg capsule,delayed release(DR/EC) 40 mg PO DAILY Qty: 30 2RF sertraline 50 mg tablet 75 mg PO BEDTIME Qty: 135 1RF clopidogrel 75 mg tablet 75 mg PO DAILY acetaminophen 500 mg Tablet 1,000 mg PO BID PRN (Reason: Pain, Mild) mupirocin 2 % ointment 1 appl topical BID Qty: 15 0RF tramadol 50 mg tablet 50 mg PO Q6H PRN (Reason: pain) Qty: 20 0RF cephalexin 500 mg capsule 500 mg PO Q12H Qty: 20 0RF doxycycline monohydrate 100 mg capsule 100 mg PO BID Qty: 20 0RF tramadol 50 mg tablet 50 mg PO BID PRN (Reason: pain) Qty: 7 0RF (DME) blood-glucose meter [FreeStyle Lite Meter] Kit See Rx Instructions .Route Rx Instructions: As directed (DME) FreeStyle Lite Strips Strip See Rx Instructions .Route Rx Instructions: As directed Farxiga 10 mg tablet 10 mg PO DAILY valsartan 40 mg tablet 40 mg PO BID atorvastatin 80 mg tablet 80 mg PO BEDTIME Jardiance 10 mg tablet 10 mg PO DAILY
[2023-07-11 14:31] LABS: Glucose, Whole Blood 232 mg/dL (60-115)
[2023-07-11] MEDS: Insulin Lispro 100 UNIT/ML 3 ML VIAL 8 UNIT SUBCUT (14:35)
--- NOTE | 2023-07-11 15:00 | PM.IMHP ---
History of Present Illness Date of Service: 07/11/23 Chief Complaint: left foot pain 58M PMH CAD (s/p nstemi, 2 stents 02/2023), chronic systolic and diastolic chf (EF 35-40%, grade 2 diastolic dysfunction), DM with neuropathy, PVD s/p right bka, htn, hld, obesity, sent in by vascular for LLE pain and erythema. patient had LLE angiogram and angioplasty on 06/28/23. Since then patient is reporting worsening left lower extremity pain and erythema. Worsening of 5th toe ulcer and left medial calf ulcer. Reports pain is intolerable, denies fevers, chills. Was seen in follow-up with vascular surgery recommended admission to hospital for IV antibiotics and further evaluation. Review of Systems Review of Systems: Yes all other systems are reviewed and are negative [facility] Medical History Heartburn symptom Amputation stump infection Major depression, recurrent Erectile dysfunction Dyslipidemia Diabetes mellitus, with long-term current use of insulin Amputation stump complication Intractable left heel pain PAD (peripheral artery disease) Chronic 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 Type 2 diabetes mellitus with diabetic polyneuropathy Type 2 diabetes mellitus with hyperglycemia Hyperlipidemia Chronic pancreatitis Essential hypertension Diabetes mellitus with hyperglycemia, with long-term current use of insulin Neuropathy Kidney calculus Failure of outpatient treatment Increased BMI Alcohol abuse CAD (coronary artery disease) Arthritis Family History Mother [place] (myocardial infarction), Onset Age: 64 Diabetes mellitus HTN (hypertension) Maternal Grandmother Diabetes mellitus Surgical History S/P angiogram of extremity (06/28/23) History of right below knee amputation Status post below-knee amputation S/P debridement Hx of lithotripsy Status post laparoscopic cholecystectomy Hx of heart artery stent Social History Household Members: Spouse Household Members Other:: and daughter Housing: Apartment Do you presently have visiting nurse or other home services: No Alcohol intake: never Patient Tobacco Use Status: Current everyday Tobacco user Tobacco use type: Cigarette Cigarette Packs Per Day: 0.01 Cigarettes Per Day: 2 Years Smoked: 28 e-Cigarette/Vaping Use: Never Used Second Hand Smoke Exposure: Yes Substance Use Type: Marijuana Advance Directives: No Advance Directives Information Provided: Yes Advance Directives Date on File: 04/17/21 service: No Current occupational status: unemployed and disabled Cognitive needs: No Hearing needs: No Vision needs: No Meds Allergies Allergy/AdvReac Type Severity Reaction Status Date / Time No Known Allergies Allergy Verified 07/11/23 10:41 [No Known Allergies*] Active Medications: Current Medications Dextrose (Dextrose 50 % 25 Gm/50 Ml Syringe) 25 gm IVPUSH Q15M PRN; Protocol PRN Reason: per Hypoglycemia Standing Ord. Glucose (Glucose Gel 15 Gm Gel..Gram.) 15 gm PO Q15M PRN; Protocol PRN Reason: per Hypoglycemia Standing Ord. Vancomycin HCl 1,000 mg/ (Sodium Chloride) 270 mls @ 270 mls/hr IV Q12H SHELLY Insulin Human Lispro (Insulin Lispro 100 Unit/Ml 3 Ml Vial) 0 unit SUBCUT QIDACHS SHELLY; Protocol Morphine Sulfate (Morphine Sulfate 4 Mg/Ml Cartridge) 4 mg IVPUSH Q4H PRN; Protocol PRN Reason: mod pain Pharmacy Consult (Consult Rx Vancomycin Dosing) 1 each MISCELLANE DAILY PRN PRN Reason: Consult order Home Medications Medication Instructions Recorded Confirmed Last Taken Type blood sugar diagnostic (FreeStyle 12/01/22 06/28/23 Unknown History Lite Strips) blood-glucose meter (FreeStyle 12/01/22 06/28/23 Unknown History Lite Meter kit) atorvastatin 80 mg tablet 80 mg PO BEDTIME 06/20/23 07/11/23 Unknown History dapagliflozin propanediol 10 mg 10 mg PO DAILY 06/20/23 07/11/23 07/11/23 History tablet (Farxiga) empagliflozin 10 mg tablet 10 mg PO DAILY 06/20/23 07/11/23 07/11/23 History (Jardiance) valsartan 40 mg tablet 40 mg PO BID 06/20/23 07/11/23 07/11/23 History insulin lispro 100 unit/mL 0 sliding scale dose subcut TIDAC 07/11/23 07/11/23 Unknown History subcutaneous pen ticagrelor 90 mg tablet (Brilinta) 90 mg PO BID 07/11/23 07/11/23 07/11/23 History Physical Exam Vital Signs and Narrative: Vital Signs: Last Vital Signs Temp 98 F 07/11/23 10:42 Pulse 72 07/11/23 13:58 Resp 14 07/11/23 13:58 BP 151/78 H 07/11/23 13:58 Pulse Ox 97 07/11/23 13:58 O2 Del Method Room Air 07/11/23 13:58 BMI result Body Mass Index 34.0 General: AO X 3, no acute distress Resp: CTA bilateral, no accessory muscles used CVS: S1,S2,RRR GI: soft, non tender, non distended Neuro: motor grossly intact, alert Psych: appropriate affect, appropriate insight right bka left lower extremiy calf ulcer, erythema of toes, with 5th digit toe ulcer (see picture from vascular note of same day) Results Labs 07/11/23 11:58 07/11/23 11:58 Labs: Laboratory Results - last 24 hr 07/11/23 07/11/23 07/11/23 11:57 11:58 12:01 MCV 83.0 MCH 26.3 L MCHC 31.7 RDW 15.1 Plt Count 246 MPV 11.1 Immature Gran % (Auto) 0.8 H Neut % (Auto) 58.5 Lymph % (Auto) 19.5 L [place] % (Auto) 6.6 Eos % (Auto) 13.8 H Baso % (Auto) 0.8 Lymph # (Auto) 2.2 [place] # (Auto) 0.7 Eos # (Auto) 1.5 H Baso # (Auto) 0.1 Abs Immat Gran (auto) 0.09 H Absolute Neuts (auto) 6.5 Absolute Nucleated RBC 0.000 Nucleated RBC % (auto) 0.0 ESR 32 H Anion Gap 14 Estim Creat Clear Calc 93.2 Estimated GFR > 60 POC Glucose Random Glucose 317 H Lactic Acid 1.7 Calcium 9.2 C-Reactive Protein 1.31 H 07/11/23 14:28 MCV MCH MCHC RDW Plt Count MPV Immature Gran % (Auto) Neut % (Auto) Lymph % (Auto) [place] % (Auto) Eos % (Auto) Baso % (Auto) Lymph # (Auto) [place] # (Auto) Eos # (Auto) Baso # (Auto) Abs Immat Gran (auto) Absolute Neuts (auto) Absolute Nucleated RBC Nucleated RBC % (auto) ESR Anion Gap Estim Creat Clear Calc Estimated GFR POC Glucose 232 H Random Glucose Lactic Acid Calcium C-Reactive Protein Imaging Radiologist's Impressions: Impressions Foot X-Ray 07/11/23 12:19 IMPRESSION: 1. Soft tissue swelling along the lateral aspect of the forefoot, most prominent adjacent to the fifth metatarsal head. There appears to be a soft tissue defect in this region, unchanged. 2. No adjacent periosteal reaction or cortical erosion to suggest acute osteomyelitis. Early osteomyelitis may be occult on plain radiographs. 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 Quality Stroke Does the patient have a stroke diagnosis?: No VTE Prior VTE?: No VTE Risk Level:: Medical - moderate - high VTE Device Contraindication: Treatment Not Indicated VTE Drug Contraindication: N/A - Med Ordered
--- NOTE | 2023-07-11 15:13 | PHA.MEDREC ---
Pharmacy Consult ? Medication Reconciliation Pharmacy has completed the medication reconciliation. Patient reported medications. Reported he does no take spironolactone. Reports using insulin lispro as a sliding scale insulin. Cristal Hameed, PharmD
[2023-07-11 15:54] VITALS: BP 138/71; PULSE 71; RESP 18; TEMP 37; O2SAT 98
[2023-07-11] MEDS: Enoxaparin Sodium 40 MG/0.4 ML SYRINGE SUBCUT (17:22)
[2023-07-11 17:59] VITALS: BP 150/78; PULSE 72; RESP 16; TEMP 36.7; O2SAT 97
[2023-07-11 18:23] LABS: Glucose, Whole Blood 200 mg/dL (60-115)
--- NOTE | 2023-07-11 18:25 | MHC.EDTECH ---
This pct just assumed care of Pt ,blood sugar check ,SALLY Arriola aware of result of 200,Pt was set up with dinner ,fresh pitcher ice water given and small trash back attached to bedside table .
[2023-07-11] MEDS: Insulin Lispro 100 UNIT/ML 3 ML VIAL SUBCUT ×2 (18:26→21:20)
--- NOTE | 2023-07-11 19:27 | PC.NURSE ---
pt a&o x4, pleasant, calm, and cooperative. pt medicated per mar with insulin and morphine. ate dinner. currently resting quietly in bed watching tv. rr even/unlabored. call arthur within pt reach. plan of care ongoing.
[2023-07-11 20:03] VITALS: BP 157/89; PULSE 74; RESP 18; TEMP 36.7; O2SAT 98
[2023-07-11 21:04] LABS: Glucose, Whole Blood 189 mg/dL (60-115)
[2023-07-11] MEDS: Valsartan 40 MG TABLET PO (21:19)
[2023-07-11] MEDS: Sertraline HCL 25 MG TABLET 75 MG PO (21:19)
[2023-07-11] MEDS: Atorvastatin Calcium 80 MG TABLET PO (21:20)
[2023-07-11] MEDS: Insulin Glargine,Hum.rec.anlog 100 UNIT/ML 10 ML VIAL 24 UNIT SUBCUT (21:20)
[2023-07-11] MEDS: Ticagrelor 90 MG TABLET PO (21:20)
[2023-07-11] MEDS: Gabapentin 600 MG TABLET PO (21:20)
--- NOTE | 2023-07-11 21:39 | HO.SKINPHOTO ---
Location: left 5th toe Category: diabetic Stage: Length: Width: Depth: cm Location: left leg Category: diabetic Stage: Length: 2 Width: 2 Depth: cm Location: Category: Stage: Length: Width: Depth: cm Location: Category: Stage: Length: Width: Depth: cm Location: Category: Stage: Length: Width: Depth: cm Location: Category: Stage: Length: Width: Depth: cm
[2023-07-11] MEDS: 0.9 % Sodium Chloride Flush 3 ML SYRINGE IVFLUSH (23:48)
[2023-07-12 03:49] VITALS: BP 138/66; PULSE 75; RESP 18; TEMP 36.6; O2SAT 97
[2023-07-12] MEDS: Morphine Sulfate 4 MG/ML CARTRIDGE IVPUSH ×4 (04:55→21:08)
[2023-07-12 05:48] LABS: Hematocrit 41.5 % (42.0-52.0); Hemoglobin 13.4 g/dl (14.0-18.0); Mean Corpuscular HGB Conc 32.3 g/dl (31.0-36.0); Mean Corpuscular Volume 83.5 fL (80.0-98.0); Mean Platelet Volume 10.5 fL (9.4-12.4); Platelet Count 198 X10*3/uL (160-400); Red Blood Count 4.97 X10*6/uL (4.60-5.80); Red Cell Distribution Width 15.1 % (11.0-16.0); White Blood Count 9.4 X10*3/uL (4.8-10.8)
[2023-07-12 06:05] LABS: Anion Gap 10 (12-20); Blood Urea Nitrogen 14 mg/dL (9-16); Calcium 8.7 mg/dL (8.4-10.2); Carbon Dioxide 26 mmol/L (22-29); Chloride 106 mmol/L (96-108); Creatinine Clr Calc Pharmacy 121.2; Estimated Glomerular Filt Rate > 60; Glucose Fasting 190 mg/dL (60-99); Potassium 3.9 mmol/L (3.3-5.1); Sodium 138 mmol/L (135-145)
[2023-07-12] MEDS: Omeprazole 40 MG CAPSULE.DR PO (06:24)
[2023-07-12 07:27] VITALS: BP 160/75; PULSE 76; RESP 16; TEMP 36.1; O2SAT 98
[2023-07-12 07:44] LABS: Glucose, Whole Blood 170 mg/dL (60-115)
[2023-07-12] MEDS: Insulin Lispro 100 UNIT/ML 3 ML VIAL SUBCUT ×4 (08:04→21:01)
[2023-07-12] MEDS: Metoprolol Succinate ER 50 MG TAB.ER.24H PO (08:05)
[2023-07-12] MEDS: 0.9 % Sodium Chloride Flush 3 ML SYRINGE IVFLUSH ×3 (08:05→21:01)
[2023-07-12] MEDS: Ticagrelor 90 MG TABLET PO ×2 (08:05→21:02)
[2023-07-12] MEDS: Gabapentin 600 MG TABLET PO ×3 (08:05→21:02)
[2023-07-12] MEDS: Empagliflozin 10 MG TABLET PO (08:05)
[2023-07-12] MEDS: Aspirin 81 MG TAB.CHEW PO (08:05)
[2023-07-12] MEDS: Valsartan 40 MG TABLET PO ×2 (08:05→21:02)
--- NOTE | 2023-07-12 09:42 | MHC.CM.PN ---
Interview conducted w/Pt: Lives at home w/daughter, no prior services, cousin or son drive him where he needs to go. Owns RW, cane, recliner chair, tub bench and has a well-fitted RLE prosthesis. Indicates his LLE wound is what is challenging his functionality at the moment. He states he goes to the [facility] wound clinic 1X's/wk. D/C plan is return home w/family via family, ?w/services. If services are recommended, Pt states he does not have a choice where he wants referrals placed to. He is unable to recall what he agency he had a year ago. CM to follow.
[2023-07-12 11:13] LABS: Glucose, Whole Blood 189 mg/dL (60-115)
--- NOTE | 2023-07-12 12:39 | P.CONGS_ITS ---
History of Present Illness Consult details Consult date: 07/12/23 Reason for consult: wound care Narrative: Very pleasant 58-year-old gentleman with a history of coronary artery disease diabetes and peripheral vascular disease presented to the the office with increasing erythema and pain of the left lower extremity. Of note he does have a history of a right BKA. He had undergone outpatient care and was on p.o. antibiotics with no significant improvement. He reports that it was getting worse there is erythema of the foot and he was experiencing significant pain. He was requested to come to the hospital. He was subsequently admitted and started on on IV antibiotic therapy. He reports that his leg feels significantly better. His pain is better controlled. He was able to sleep last night. He now presents for follow-up. Review of Systems 2 Review of Systems: Yes all other systems are reviewed and are negative Constitutional: Constitutional: Reports no additional constitutional complaints ENT: Reports Normal hearing present Cardiovascular: Cardiovascular: Denies chest pain, Denies chest pain at rest, Denies chest pain with activity and Denies pedal edema Respiratory: Respiratory: Denies cough Gastrointestinal: Gastrointestinal: Denies abdominal pain Musculoskeletal: Musculoskeletal: Denies abnormal gait, Denies muscle cramps and Denies radiating pain into limb Integumentary/Breasts: Skin/Breast: Denies skin ulcer and Denies wounds Neurologic: Reports Normal hearing present and Denies abnormal gait Psychiatric: Psychiatric: Reports no additional psychiatric complaints PMFSH Past Medical History Medical History Heartburn symptom Amputation stump infection Major depression, recurrent Erectile dysfunction Dyslipidemia Diabetes mellitus, with long-term current use of insulin Amputation stump complication Intractable left heel pain PAD (peripheral artery disease) Chronic 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 Type 2 diabetes mellitus with diabetic polyneuropathy Type 2 diabetes mellitus with hyperglycemia Hyperlipidemia Chronic pancreatitis Essential hypertension Diabetes mellitus with hyperglycemia, with long-term current use of insulin Neuropathy Kidney calculus Failure of outpatient treatment Increased BMI Alcohol abuse CAD (coronary artery disease) Arthritis Family History Family History Mother HI (myocardial infarction), Onset Age: 64 Diabetes mellitus HTN (hypertension) Maternal Grandmother Diabetes mellitus Surgical History Surgical History S/P angiogram of extremity (06/28/23) History of right below knee amputation Status post below-knee amputation S/P debridement Hx of lithotripsy Status post laparoscopic cholecystectomy Hx of heart artery stent Social History Social History Household Members: Family Household Members Other:: and daughter Housing: House Do you presently have visiting nurse or other home services: No Alcohol intake: never Patient Tobacco Use Status: Never used Tobacco Tobacco use type: Cigarette Cigarette Packs Per Day: 0.01 Cigarettes Per Day: 2 Years Smoked: 28 e-Cigarette/Vaping Use: Never Used Second Hand Smoke Exposure: Yes Substance Use Type: Marijuana Advance Directives Date on File: 04/17/21 service: No Current occupational status: unemployed and disabled Cognitive needs: No Hearing needs: No Vision needs: No Meds Allergies Allergy/AdvReac Type Severity Reaction Status Date / Time No Known Allergies Allergy Verified 07/11/23 10:41 [No Known Allergies*] Active Medications: Current Medications Aspirin (Aspirin 81 Mg Tab.Chew) 81 mg PO DAILY [facility] Last Admin: 07/12/23 08:05 Dose: 81 mg Atorvastatin Calcium (Atorvastatin Calcium 80 Mg Tablet) 80 mg PO BEDTIME [facility] Last Admin: 07/11/23 21:20 Dose: 80 mg Dextrose (Dextrose 50 % 25 Gm/50 Ml Syringe) 25 gm IVPUSH Q15M PRN; Protocol PRN Reason: per Hypoglycemia Standing Ord. Empagliflozin (Empagliflozin 10 Mg Tablet) 10 mg PO DAILY [facility] Last Admin: 07/12/23 08:05 Dose: 10 mg Enoxaparin Sodium (Enoxaparin Sodium 40 Mg/0.4 Ml Syringe) 40 mg SUBCUT Q24H [facility] Last Admin: 07/11/23 17:22 Dose: 40 mg Gabapentin (Gabapentin 600 Mg Tablet) 600 mg PO TID [facility] Last Admin: 07/12/23 08:05 Dose: 600 mg Glucose (Glucose Gel 15 Gm Gel..Gram.) 15 gm PO Q15M PRN; Protocol PRN Reason: per Hypoglycemia Standing Ord. Insulin Glargine (Insulin Glargine,Hum.Rec.Anlog 100 Unit/Ml 10 Ml Vial) 24 unit SUBCUT BEDTIME [facility] Last Admin: 07/11/23 21:20 Dose: 24 unit Insulin Human Lispro (Insulin Lispro 100 Unit/Ml 3 Ml Vial) 0 unit SUBCUT QIDACHS [facility]; Protocol Last Admin: 07/12/23 11:40 Dose: 2 unit Metoprolol Succinate (Metoprolol Succinate Er 50 Mg Tab.Er.24h) 50 mg PO DAILY [facility]; Protocol Last Admin: 07/12/23 08:05 Dose: 50 mg Morphine Sulfate (Morphine Sulfate 4 Mg/Ml Cartridge) 4 mg IVPUSH Q4H PRN; Protocol PRN Reason: mod pain Last Admin: 07/12/23 09:09 Dose: 4 mg Omeprazole (Omeprazole 40 Mg Capsule.Dr) 40 mg PO DAILY@0630 [facility] Last Admin: 07/12/23 06:24 Dose: 40 mg Sertraline HCl (Sertraline Hcl 25 Mg Tablet) 75 mg PO BEDTIME [facility] Last Admin: 07/11/23 21:19 Dose: 75 mg Sodium Chloride (0.9 % Sodium Chloride Flush 3 Ml Syringe) 3 ml IVFLUSH QSHIFT [facility] Last Admin: 07/12/23 08:05 Dose: 3 ml Ticagrelor (Ticagrelor 90 Mg Tablet) 90 mg PO BID [facility] Last Admin: 07/12/23 08:05 Dose: 90 mg Valsartan (Valsartan 40 Mg Tablet) 40 mg PO BID [facility]; Protocol Last Admin: 07/12/23 08:05 Dose: 40 mg Home Medications Medication Instructions Recorded Confirmed Last Taken Type [facility] 06/28/23 Unknown History Lite Strips) [facility] 06/28/23 Unknown History Lite Meter kit) atorvastatin 80 mg tablet 80 mg PO BEDTIME 06/20/23 07/11/23 Unknown History dapagliflozin propanediol 10 mg 10 mg PO DAILY 06/20/23 07/11/23 07/11/23 History tablet (Farxiga) valsartan 40 mg tablet 40 mg PO BID 06/20/23 07/11/23 07/11/23 History insulin lispro 100 unit/mL 0 sliding scale dose subcut TIDAC 07/11/23 07/11/23 Unknown History subcutaneous pen ticagrelor 90 mg tablet (Brilinta) 90 mg PO BID 07/11/23 07/11/23 07/11/23 History Physical Exam 2 Vital Signs: Vital Signs: Last Vital Signs Temp 97.0 F 07/12/23 07:27 Pulse 76 07/12/23 07:27 Resp 16 07/12/23 07:27 BP 160/75 H 07/12/23 07:27 Pulse Ox 98 07/12/23 07:27 O2 Del Method Room Air 07/12/23 07:27 BMI result Body Mass Index 34.0 Const: General: cooperative, healthy appearing and comfortable O rientation/consciousness: oriented to person, oriented to place and oriented to time HEENT: Head: Yes normal to inspection Neck: Neck: Yes normal visual inspection Carotids: no bruits Chest: Chest palpation & inspection: normal inspection of the chest Resp: Effort & Inspection: normal respiratory effort and able to speak in complete sentences Auscultation: clear to auscultation bilaterally, no crackles, no rales, no rhonchi and no wheezes Cardio: Rate: regular rate Rhythm: regular rhythm Heart sounds: S1 normal heart sound present and S2 normal heart sound present Bruits: no carotid bruits Peripheral pulses: Peripheral pulses 2+ throughout GI: Inspection: Yes normal to inspection Skin: Other: Right BKA well-healed Left foot 5th toe lateral aspect ulcer Wounds: no wounds Hair: normal Neuro: General: oriented to person, oriented to place and oriented to time Cranial nerves: Yes CN's II-XII intact bilaterally and Yes Normal hearing present Cognition (Neuro): normal cognition Motor exam (neuro): 5/5 motor strength present throughout Extrem: Other: venous exam: No significant superficial varicosities or spider telangiectasias, minimal edema General: No clubbing, No cyanosis and No edema Psych: Appearance: grossly normal Mental Status: mental status grossly normal Speech and movement: Normal speech and movement present Results Labs 07/12/23 05:30 07/12/23 05:30 Labs: Abnormal lab results 07/11/23 07/11/23 07/11/23 Range/Units 11:57 14:28 18:20 Hgb (14.0-18.0) g/dl Hct (42.0-52.0) % ESR 32 H (0-15) MM/HR Anion Gap (12-20) POC Glucose 232 H 200 H (60-115) mg/dL Fasting Glucose (60-99) mg/dL 07/11/23 07/12/23 07/12/23 Range/Units 20:59 05:30 07:31 Hgb 13.4 L (14.0-18.0) g/dl Hct 41.5 L (42.0-52.0) % ESR (0-15) MM/HR Anion Gap 10 L (12-20) POC Glucose 189 H 170 H (60-115) mg/dL Fasting Glucose 190 H (60-99) mg/dL 07/12/23 Range/Units 11:08 Hgb (14.0-18.0) g/dl Hct (42.0-52.0) % ESR (0-15) MM/HR Anion Gap (12-20) POC Glucose 189 H (60-115) mg/dL Fasting Glucose (60-99) mg/dL Short CBC 07/12/23 Range/Units 05:30 WBC 9.4 (4.8-10.8) X10*3/uL Hgb 13.4 L (14.0-18.0) g/dl Hct 41.5 L (42.0-52.0) % Plt Count 198 (160-400) X10*3/uL BMP 07/12/23 05:30 Sodium 138 Potassium 3.9 Chloride 106 Carbon Dioxide 26 BUN 14 Creatinine 0.80 Calcium 8.7 All other labs normal. Assessment and Plan (1) PAD (peripheral artery disease): Status: Acute (2) Diabetic foot infection: Status: Acute In short patient has a diabetic foot infection along with ulcer of that 5th toe. I would like to treat this as conservatively as possible as the patient already has a BKA. He is doing significantly better on IV antibiotic therapy. Would obtain evaluation from Infectious Disease. May require alternative antibiotic therapy from the regimen we had him on as an outpatient. We will continue to follow with you. Thank you for allowing us to participate in his care. Procedures Date of Service Date of Service: 07/12/23
--- NOTE | 2023-07-12 14:29 | HO.PM.IMPN ---
Subjective Subjective Date of Service: 07/12/23 Interval History: Seen and evaluated Feels better already Erythema resolving Pain better controlled Review of Systems Review of Systems: Yes all other systems are reviewed and are negative Physical Exam Vital Signs: Vital Signs: Last Vital Signs Temp 97.0 F 07/12/23 07:27 Pulse 76 07/12/23 07:27 Resp 16 07/12/23 07:27 BP 160/75 H 07/12/23 07:27 Pulse Ox 98 07/12/23 07:27 O2 Del Method Room Air 07/12/23 07:27 BMI result Body Mass Index 34.0 Const: Other: Constitutional : Awake, interactive, not in distress Neck : Normal inspection, Supple Cardiovascular : RRR, no JVP, no lower extremity edema Respiratory : good bilateral air entry, no crackles, wheezes or rhonchi Gastrointestinal: soft, lax, Normal bowel sounds, Non tender Skin : Warm, Dry, Right BKA well-healed, Left foot 5th toe lateral aspect ulcer Neurological : Alert & oriented x3, No focal deficit Objective Data Active Medications Aspirin (Aspirin 81 Mg Tab.Chew) 81 mg PO DAILY [facility] Last Admin: 07/12/23 08:05 Dose: 81 mg Documented By: BRYON Atorvastatin Calcium (Atorvastatin Calcium 80 Mg Tablet) 80 mg PO BEDTIME [facility] Last Admin: 07/11/23 21:20 Dose: 80 mg Documented By: LUZ ELENA Dextrose (Dextrose 50 % 25 Gm/50 Ml Syringe) 25 gm IVPUSH Q15M PRN; Protocol PRN Reason: per Hypoglycemia Standing Ord. Empagliflozin (Empagliflozin 10 Mg Tablet) 10 mg PO DAILY [facility] Last Admin: 07/12/23 08:05 Dose: 10 mg Documented By: BRYON Enoxaparin Sodium (Enoxaparin Sodium 40 Mg/0.4 Ml Syringe) 40 mg SUBCUT Q24H [facility] Last Admin: 07/11/23 17:22 Dose: 40 mg Documented By: JONNIE Gabapentin (Gabapentin 600 Mg Tablet) 600 mg PO TID [facility] Last Admin: 07/12/23 08:05 Dose: 600 mg Documented By: BRYON Glucose (Glucose Gel 15 Gm Gel..Gram.) 15 gm PO Q15M PRN; Protocol PRN Reason: per Hypoglycemia Standing Ord. Insulin Glargine (Insulin Glargine,Hum.Rec.Anlog 100 Unit/Ml 10 Ml Vial) 24 unit SUBCUT BEDTIME [facility] Last Admin: 07/11/23 21:20 Dose: 24 unit Documented By: LUZ ELENA Insulin Human Lispro (Insulin Lispro 100 Unit/Ml 3 Ml Vial) 0 unit SUBCUT QIDACHS [facility]; Protocol Last Admin: 07/12/23 11:40 Dose: 2 unit Documented By: BRYON Metoprolol Succinate (Metoprolol Succinate Er 50 Mg Tab.Er.24h) 50 mg PO DAILY [facility]; Protocol Last Admin: 07/12/23 08:05 Dose: 50 mg Documented By: BRYON Morphine Sulfate (Morphine Sulfate 4 Mg/Ml Cartridge) 4 mg IVPUSH Q4H PRN; Protocol PRN Reason: mod pain Last Admin: 07/12/23 12:50 Dose: 4 mg Documented By: BRYON Omeprazole (Omeprazole 40 Mg Capsule.Dr) 40 mg PO DAILY@0630 [facility] Last Admin: 07/12/23 06:24 Dose: 40 mg Documented By: MAXIMO Sertraline HCl (Sertraline Hcl 25 Mg Tablet) 75 mg PO BEDTIME [facility] Last Admin: 07/11/23 21:19 Dose: 75 mg Documented By: LUZ ELENA Sodium Chloride (0.9 % Sodium Chloride Flush 3 Ml Syringe) 3 ml IVFLUSH QSHIFT [facility] Last Admin: 07/12/23 08:05 Dose: 3 ml Documented By: BRYON Ticagrelor (Ticagrelor 90 Mg Tablet) 90 mg PO BID [facility] Last Admin: 07/12/23 08:05 Dose: 90 mg Documented By: BRYON Valsartan (Valsartan 40 Mg Tablet) 40 mg PO BID [facility]; Protocol Last Admin: 07/12/23 08:05 Dose: 40 mg Documented By: BRYON Labs 07/12/23 05:30 07/12/23 05:30 Labs: Laboratory Results - last 24 hr 07/11/23 07/11/23 07/11/23 14:28 18:20 20:59 MCV MCH MCHC RDW Plt Count MPV Absolute Nucleated RBC Nucleated RBC % (auto) Anion Gap Estim Creat Clear Calc Estimated GFR POC Glucose 232 H 200 H 189 H Fasting Glucose Calcium 07/12/23 07/12/23 07/12/23 05:30 07:31 11:08 MCV 83.5 MCH 27.0 MCHC 32.3 RDW 15.1 Plt Count 198 MPV 10.5 Absolute Nucleated RBC 0.000 Nucleated RBC % (auto) 0.0 Anion Gap 10 L Estim Creat Clear Calc 121.2 Estimated GFR > 60 POC Glucose 170 H 189 H Fasting Glucose 190 H Calcium 8.7 Microbiology Microbiology Results: Microbiology 07/11/23 11:57 Blood Culture - Preliminary Blood - Venous No growth after 24 hours. 07/11/23 11:58 Blood Culture - Preliminary Blood - Venous No growth after 24 hours. Assessment and Plan (1) Diabetic foot infection: Status: Acute Plan 58M PMH CAD (s/p nstemi, 2 stents 02/2023), chronic systolic and diastolic chf (EF 35-40%, grade 2 diastolic dysfunction), DM with neuropathy, PVD s/p right bka, htn, hld, obesity, sent in by vascular for LLE pain and erythema Left lower extremity diabetic and vascular foot ulcer with cellulitis Improving PEnding cultures Continue IV vancomycin and Zosyn (history of MSSA and Pseudomonas in wounds) Vascular and ID eval follow Vanco trough Chronic systolic and diastolic CHF metoprolol, jardiance, valsartan cad, pvd dapl, statin DM basal bolus insulin 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 Quality Stroke Does the patient have a stroke diagnosis?: No VTE Prior VTE?: No VTE Risk Level:: Medical - moderate - high VTE Device Contraindication: Treatment Not Indicated VTE Drug Contraindication: N/A - Med Ordered
[2023-07-12] MEDS: Enoxaparin Sodium 40 MG/0.4 ML SYRINGE SUBCUT (15:08)
--- NOTE | 2023-07-12 15:48 | HO.WOUND ---
Wound Consult: Initial 58yr old male admitted to [facility] on? 07/11/23 14:59- from Dr. Sheppard office with concern for infection of left leg - See progress notes and H&P for detailed history. Recommend follow up with Outpt Wound Clinic at time of discharge - pt states he has appointment booked at 07/26/23 at [facility]. Left 5th toe Etiology: Diabetic Wound Measurements: 1.5cm x 1cm x 0cm Wound Bed: dry black stable necrotic eschar - no drainage no moisture noted Drainage / Odor: None Edges: ? Attached Tegan wound: ? red pink erythema No Induration, No Fluctuance Pain: reports mild pain Goals of Treatment: ? Protect from trauma - keep stable and dry with betadine twice daily. Left Gaiter Leg area Etiology: Diabetic Wound Measurements: 1.5cm x 1cm x 0.3cm Wound Bed: loosely adherent brown black necrotic eschar moist at edges Drainage / Odor: scant yellow mendoza drainage no dressing at time of removal Edges: epibole Tegan wound: ?Hyperpigmentation - No Induration, No Fluctuance Pain: reports mild pain Goals of Treatment: ? Moist wound healing for autolytic debridement - refer to Outpt Wound Clinic at time of d/c - pt reports he has an appointment scheduled for 07/26/23 and will keep this appointment for follow up. He reports he has been to clinic in the past. May consider Santyl for enzymatic debridement in future Recommendations: 1. Turn and Reposition every 2 hours and as needed for patient comfort consider use of wedges available in the storeroom. 2. Off Load all bony prominences with use of pillows, wedges and heel boots. 3. Provide adequate and supplemental nutrition. 4. Maintain blood glucose levels per Providers orders. 5. Left 5th toe - Olin with Betadine twice a day. Do not cover with foam dressing as this will donate moisture. The goal is to keep the black eschar dry at this time. If needed may cover with dry gauze. 6. Left lower Leg / Gaiter - Cleanse with NS. Pat dry. Apply skin prep to periwound allow to dry. Apply wound gel to dry wound bed - this will aid in autolytic debridement. Cover with foam dressing. Change Daily. Re-consult wound care Nurse for wound deterioration or wound changes.
[2023-07-12] MEDS: oxyCODONE HCl Immed Release 5 MG TABLET PO (15:58)
[2023-07-12 16:00] VITALS: BP 149/68; PULSE 71; RESP 18; TEMP 36; O2SAT 97
[2023-07-12 16:36] LABS: Glucose, Whole Blood 186 mg/dL (60-115)
--- NOTE | 2023-07-12 16:37 | W.PM.IDCN ---
History of Present Illness Data of Consult Service Date: 07/12/23 Requesting physician: Cecile Berg Primary Care Provider: Shanta Haney MD HPI Reason for consult: left foot ulcers He presents with dark areas left lateral foot near 5th toe and medial to left great toe for couple days . He has right BKA due to infection. He doesnt want surgery. Review of Systems Review of Systems: Yes all other systems are reviewed and are negative [facility] Past Medical History Medical History Heartburn symptom Amputation stump infection Major depression, recurrent Erectile dysfunction Dyslipidemia Diabetes mellitus, with long-term current use of insulin Amputation stump complication Intractable left heel pain PAD (peripheral artery disease) Chronic 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 Type 2 diabetes mellitus with diabetic polyneuropathy Type 2 diabetes mellitus with hyperglycemia Hyperlipidemia Chronic pancreatitis Essential hypertension Diabetes mellitus with hyperglycemia, with long-term current use of insulin Neuropathy Kidney calculus Failure of outpatient treatment Increased BMI Alcohol abuse CAD (coronary artery disease) Arthritis Family History Family History Mother [place] (myocardial infarction), Onset Age: 64 Diabetes mellitus HTN (hypertension) Maternal Grandmother Diabetes mellitus Surgical History Surgical History S/P angiogram of extremity (06/28/23) History of right below knee amputation Status post below-knee amputation S/P debridement Hx of lithotripsy Status post laparoscopic cholecystectomy Hx of heart artery stent Social History Social History Household Members: Family Household Members Other:: and daughter Housing: House Do you presently have visiting nurse or other home services: No Alcohol intake: never Patient Tobacco Use Status: Never used Tobacco Tobacco use type: Cigarette Cigarette Packs Per Day: 0.01 Cigarettes Per Day: 2 Years Smoked: 28 e-Cigarette/Vaping Use: Never Used Second Hand Smoke Exposure: Yes Substance Use Type: Marijuana Advance Directives Date on File: 04/17/21 service: No Current occupational status: unemployed and disabled Cognitive needs: No Hearing needs: No Vision needs: No Meds Allergies Allergy/AdvReac Type Severity Reaction Status Date / Time No Known Allergies Allergy Verified 07/11/23 10:41 [No Known Allergies*] Active Medications: Current Medications Aspirin (Aspirin 81 Mg Tab.Chew) 81 mg PO DAILY [facility] Last Admin: 07/12/23 08:05 Dose: 81 mg Atorvastatin Calcium (Atorvastatin Calcium 80 Mg Tablet) 80 mg PO BEDTIME [facility] Last Admin: 07/11/23 21:20 Dose: 80 mg Dextrose (Dextrose 50 % 25 Gm/50 Ml Syringe) 25 gm IVPUSH Q15M PRN; Protocol PRN Reason: per Hypoglycemia Standing Ord. Empagliflozin (Empagliflozin 10 Mg Tablet) 10 mg PO DAILY [facility] Last Admin: 07/12/23 08:05 Dose: 10 mg Enoxaparin Sodium (Enoxaparin Sodium 40 Mg/0.4 Ml Syringe) 40 mg SUBCUT Q24H [facility] Last Admin: 07/12/23 15:08 Dose: 40 mg Gabapentin (Gabapentin 600 Mg Tablet) 600 mg PO TID [facility] Last Admin: 07/12/23 15:08 Dose: 600 mg Glucose (Glucose Gel 15 Gm Gel..Gram.) 15 gm PO Q15M PRN; Protocol PRN Reason: per Hypoglycemia Standing Ord. Insulin Glargine (Insulin Glargine,Hum.Rec.Anlog 100 Unit/Ml 10 Ml Vial) 24 unit SUBCUT BEDTIME [facility] Last Admin: 07/11/23 21:20 Dose: 24 unit Insulin Human Lispro (Insulin Lispro 100 Unit/Ml 3 Ml Vial) 0 unit SUBCUT QIDACHS [facility]; Protocol Last Admin: 07/12/23 11:40 Dose: 2 unit Metoprolol Succinate (Metoprolol Succinate Er 50 Mg Tab.Er.24h) 50 mg PO DAILY [facility]; Protocol Last Admin: 07/12/23 08:05 Dose: 50 mg Morphine Sulfate (Morphine Sulfate 4 Mg/Ml Cartridge) 4 mg IVPUSH Q4H PRN; Protocol PRN Reason: mod pain Last Admin: 07/12/23 12:50 Dose: 4 mg Omeprazole (Omeprazole 40 Mg Capsule.Dr) 40 mg PO DAILY@0630 [facility] Last Admin: 07/12/23 06:24 Dose: 40 mg Sertraline HCl (Sertraline Hcl 25 Mg Tablet) 75 mg PO BEDTIME [facility] Last Admin: 07/11/23 21:19 Dose: 75 mg Sodium Chloride (0.9 % Sodium Chloride Flush 3 Ml Syringe) 3 ml IVFLUSH QSHIFT [facility] Last Admin: 07/12/23 15:09 Dose: 3 ml Ticagrelor (Ticagrelor 90 Mg Tablet) 90 mg PO BID [facility] Last Admin: 07/12/23 08:05 Dose: 90 mg Valsartan (Valsartan 40 Mg Tablet) 40 mg PO BID [facility]; Protocol Last Admin: 07/12/23 08:05 Dose: 40 mg Home Medications Medication Instructions Recorded Confirmed Last Taken Type blood sugar diagnostic (FreeStyle 12/01/22 06/28/23 Unknown History Lite Strips) blood-glucose meter (FreeStyle 12/01/22 06/28/23 Unknown History Lite Meter kit) atorvastatin 80 mg tablet 80 mg PO BEDTIME 06/20/23 07/11/23 Unknown History dapagliflozin propanediol 10 mg 10 mg PO DAILY 06/20/23 07/11/23 07/11/23 History tablet (Farxiga) valsartan 40 mg tablet 40 mg PO BID 06/20/23 07/11/23 07/11/23 History insulin lispro 100 unit/mL 0 sliding scale dose subcut TIDAC 07/11/23 07/11/23 Unknown History subcutaneous pen ticagrelor 90 mg tablet (Brilinta) 90 mg PO BID 07/11/23 07/11/23 07/11/23 History Physical Exam Vital Signs: Vital Signs: Last Vital Signs Temp 96.8 F 07/12/23 16:00 Pulse 71 07/12/23 16:00 Resp 18 07/12/23 16:00 BP 149/68 H 07/12/23 16:00 Pulse Ox 97 07/12/23 16:00 O2 Del Method Room Air 07/12/23 16:00 BMI result Body Mass Index 34.0 Const: General: cooperative HEENT: Head: Yes normal to inspection Face and sinus: Yes normal facial exam Mouth: Normal oral and palatal mucosa present Teeth and gingiva: dentition normal Eyes: General: appearance normal, both eyes and all related structures Pupils: Equal, round and reactive pupils present Resp: Effort & Inspection: normal respiratory effort Cardio: Rate: regular rate Rhythm: regular rhythm GI: Palpation (GI): Soft to palpation and nontender : General: Yes no CVA tenderness Back/Spine/Pelvis: Back: no CVA tenderness Skin: General skin exam: no rashes or lesions noted Neuro: General: moves all extremities Cranial nerves: Yes Equal, round and reactive pupils present Extrem: Other: some darkened areas improving left lateral and medial foot Psych: Appearance: grossly normal Results Labs 07/12/23 05:30 07/12/23 05:30 Labs: Short CBC 07/12/23 Range/Units 05:30 WBC 9.4 (4.8-10.8) X10*3/uL Hgb 13.4 L (14.0-18.0) g/dl Hct 41.5 L (42.0-52.0) % Plt Count 198 (160-400) X10*3/uL BMP 07/12/23 05:30 Sodium 138 Potassium 3.9 Chloride 106 Carbon Dioxide 26 BUN 14 Creatinine 0.80 Calcium 8.7 Microbiology Microbiology Results: Microbiology 07/11/23 11:57 Blood - Venous Blood Culture - Preliminary No growth after 24 hours. 07/11/23 11:58 Blood - Venous Blood Culture - Preliminary No growth after 24 hours. Assessment and Plan (1) Diabetic foot infection: Status: Acute There is concern over foot infection He has had prior infection and BKA. He has seen Vascular Would give po linezolid 600 mg bid 14 days. Concern for limb salvage but will follow Vascular (2) Status post below-knee amputation: Qualifiers: Laterality: right Qualified Code(s): Z89.511 - Acquired absence of right leg below knee Status: Acute
[2023-07-12 19:48] VITALS: BP 156/56; PULSE 71; RESP 18; TEMP 36.1
[2023-07-12 20:39] LABS: Glucose, Whole Blood 220 mg/dL (60-115)
[2023-07-12] MEDS: Insulin Glargine,Hum.rec.anlog 100 UNIT/ML 10 ML VIAL 24 UNIT SUBCUT (21:01)
[2023-07-12] MEDS: Atorvastatin Calcium 80 MG TABLET PO (21:02)
[2023-07-12] MEDS: Sertraline HCL 25 MG TABLET 75 MG PO (21:02)
[2023-07-13] MEDS: Morphine Sulfate 4 MG/ML CARTRIDGE IVPUSH ×3 (02:30→14:04)
[2023-07-13 03:34] VITALS: BP 158/68; PULSE 66; RESP 18; TEMP 36.2; O2SAT 96
[2023-07-13] MEDS: Omeprazole 40 MG CAPSULE.DR PO (05:30)
[2023-07-13 07:44] VITALS: BP 144/80; PULSE 69; RESP 16; TEMP 36; O2SAT 94
[2023-07-13 08:02] LABS: Glucose, Whole Blood 181 mg/dL (60-115)
[2023-07-13] MEDS: Aspirin 81 MG TAB.CHEW PO (08:24)
[2023-07-13] MEDS: Ticagrelor 90 MG TABLET PO (08:24)
[2023-07-13] MEDS: Valsartan 40 MG TABLET PO (08:24)
[2023-07-13] MEDS: Metoprolol Succinate ER 50 MG TAB.ER.24H PO (08:24)
[2023-07-13] MEDS: Gabapentin 600 MG TABLET PO ×2 (08:24→17:09)
[2023-07-13] MEDS: Empagliflozin 10 MG TABLET PO (08:24)
[2023-07-13] MEDS: Insulin Lispro 100 UNIT/ML 3 ML VIAL SUBCUT ×3 (08:25→17:09)
--- NOTE | 2023-07-13 10:47 | PM.DS ---
DS: Providers Provider Date of Service: 07/13/23 Date of admission: 07/11/23 14:59 Primary care physician: Shanta Haney MD Consults: 07/11/23 14:45 Consult to Vascular Surgery Routine Consulting Provider: [facility] Vascular Services Reason for consultation: dfu, pvd 07/11/23 14:59 Consult to Infectious Diseases Routine Consulting Provider: [facility] Infectious Disease Reason for consultation: dfu 07/11/23 21:05 Consult to Wound Care Routine Reason for consultation: diabetic ulcer to left lower leg and left 5th toe DS: Diagnosis Discharge Diagnosis (1) Diabetic foot infection: Status: Acute (2) PAD (peripheral artery disease): Status: Inactive DS: Summary Hospital Course Hospital Course: Admission note HPI 58M PMH CAD (s/p nstemi, 2 stents 02/2023), chronic systolic and diastolic chf (EF 35-40%, grade 2 diastolic dysfunction), DM with neuropathy, PVD s/p right bka, htn, hld, obesity, sent in by vascular for LLE pain and erythema. patient had LLE angiogram and angioplasty on 06/28/23. Since then patient is reporting worsening left lower extremity pain and erythema. Worsening of 5th toe ulcer and left medial calf ulcer. Reports pain is intolerable, denies fevers, chills. Was seen in follow-up with vascular surgery recommended admission to hospital for IV antibiotics and further evaluation. Hospital course Left lower extremity diabetic and vascular foot ulcer with cellulitis who was treated with broad spectrum antibiotics of IV vancomycin and Zosyn (history of MSSA and Pseudomonas in wounds). Blood cultures remained negative. Seen by ID who suggested Zyvox but given the high risk of serotonin syndrome Dr Stoner suggested Augmentin and Levaquin for 2 weeks now. Seen by vascular specialist who recommended medical management as the only option he might offer is amputation. Patient will be followed by wound nurse and to be seen by dr Sheppard as outpatient. Continue antibiotics as prescribed Follow with dr Sheppard as outpatient Wound care , keep the area dry and clean Come back to the hospital for any fever, drainage or increase pain Time Attestation Discharge coordination time: Greater than 30 minutes Quality: Safe Use of Opioids Does Pt have an Active Cancer Diagnosis on the Problem List?: No Quality: Stroke Does the patient have a stroke diagnosis?: No Physical Exam Vital Signs: Vital Signs: Last Vital Signs Temp 96.8 F 07/13/23 07:44 Pulse 69 07/13/23 07:44 Resp 16 07/13/23 07:44 BP 144/80 H 07/13/23 07:44 Pulse Ox 94 07/13/23 07:44 O2 Del Method Room Air 07/13/23 07:44 O2 Flow Rate 97 07/12/23 19:48 BMI result Body Mass Index 34.0 Const: Other: Constitutional : Awake, interactive, not in distress Neck : Normal inspection, Supple Cardiovascular : RRR, no JVP, no lower extremity edema Respiratory : good bilateral air entry, no crackles, wheezes or rhonchi Gastrointestinal: soft, lax, Normal bowel sounds, Non tender Skin : Warm, Dry, Right BKA well-healed, Left foot 5th toe lateral aspect dry ulcer with no erythema Neurological : Alert & oriented x3, No focal deficit DS: Data Data Completed and Pending Completed studies during hospitalization [Text1]: Procedures Detachment at Right 1st Toe, Complete, Open Approach (08/18/21) Detachment at Right Lower Leg, High, Open Approach (08/18/21) Dilation of Right Ureter with Intraluminal Device, Via Natural or Artificial Opening Endoscopic (06/21/20) Excision of Right Tarsal, Open Approach (08/18/21) Extirpation of Matter from Right Ureter, Via Natural or Artificial Opening Endoscopic (06/21/20) Fluoroscopy of Right Kidney, Ureter and Bladder (06/21/20) Insertion of Infusion Device into Superior Vena Cava, Percutaneous Approach (08/18/21) Labs on day of discharge: Laboratory Results - last 24 hr 07/12/23 07/12/23 07/12/23 11:08 16:31 20:34 POC Glucose 189 H 186 H 220 H 07/13/23 07:12 POC Glucose 181 H Preliminary micro results at discharge 07/11/23 11:57 Blood Culture - Preliminary Blood - Venous No growth after 24 hours. 07/11/23 11:58 Blood Culture - Preliminary Blood - Venous No growth after 24 hours. Imaging Chest x-ray: Radiologist's impression: ITS Impressions Foot X-Ray 07/11/23 12:19 IMPRESSION: 1. Soft tissue swelling along the lateral aspect of the forefoot, most prominent adjacent to the fifth metatarsal head. There appears to be a soft tissue defect in this region, unchanged. 2. No adjacent periosteal reaction or cortical erosion to suggest acute osteomyelitis. Early osteomyelitis may be occult on plain radiographs. Discharge Plan Discharge Anticipated Discharge Date/Time: 07/13/23 10:29 Patient Disposition: Home, Self-Care Discharge Diagnosis: Diabetic foot infection Referrals: Shanta Haney MD [Primary Care Provider] - 1 Week Discharge Medications: New levofloxacin 500 mg tablet 500 mg PO Q24H Qty: 14 0RF amoxicillin-pot clavulanate 875-125 mg tablet 1 tab PO BID Qty: 28 0RF Continued (DME) Bedside commode See Rx Instructions .Route .MEDSUPPLY Qty: 1 0RF Rx Instructions: As directed (DME) walker with wheels See Rx Instructions .Route .MEDSUPPLY Qty: 1 0RF Rx Instructions: As directed (DME) pen needle, diabetic [BD Ultra-Fine Short Pen Needle] 31 gauge x 5/16 needle See Rx Instructions .ROUTE .COMPLEX Qty: 100 5RF Dose Instruction: USE MARÍA LO INDICADO BENNETT VECES AL LIZZIE ANTES DE LAS COMIDAS Rx Instructions: USE MARÍA LO INDICADO BENNETT VECES AL LIZZIE ANTES DE LAS COMIDAS (DME) recliner See Rx Instructions .Route .MEDSUPPLY Qty: 1 0RF Rx Instructions: As directed (DME) FreeStyle Frank [employer] Misc See Rx Instructions .Route Qty: 1 0RF Rx Instructions: As directed metoprolol succinate 50 mg tablet extended release 24 hr 50 mg PO DAILY Qty: 90 1RF aspirin 81 mg tablet,chewable 81 mg PO DAILY Qty: 90 1RF (DME) FreeStyle Frank 2 Sensor Kit See Rx Instructions .Route Qty: 2 8RF Rx Instructions: As directed change every 14 days gabapentin 600 mg tablet 600 mg PO TID Qty: 90 4RF insulin glargine [Lantus Solostar U-100 Insulin] 100 unit/mL (3 mL) insulin pen 24 unit subcut BEDTIME Qty: 15 6RF omeprazole 40 mg capsule,delayed release(DR/EC) 40 mg PO DAILY Qty: 30 2RF sertraline 50 mg tablet 75 mg PO BEDTIME Qty: 135 1RF tramadol 50 mg tablet 50 mg PO BID PRN (Reason: pain) Qty: 7 0RF Brilinta 90 mg tablet 90 mg PO BID insulin lispro 100 unit/mL insulin pen 0 sliding scale dose subcut TIDAC Protocol: Insulin Correction Scale Less than or equal to 110 ---- Give (units): 0 111 to 150 Give (units): 0 151 to 200 Give (units): 2 201 to 250 Give (units): 4 251 to 300 Give (units): 6 301 to 350 Give (units): 8 Greater than 350 Give (units): 10 Call MD if Blood Glucose > : 350 (DME) blood-glucose meter [FreeStyle Lite Meter] Kit See Rx Instructions .Route Rx Instructions: As directed (DME) FreeStyle Lite Strips Strip See Rx Instructions .Route Rx Instructions: As directed Farxiga 10 mg tablet 10 mg PO DAILY valsartan 40 mg tablet 40 mg PO BID atorvastatin 80 mg tablet 80 mg PO BEDTIME Discontinued cephalexin 500 mg capsule 500 mg PO Q12H Qty: 20 0RF doxycycline monohydrate 100 mg capsule 100 mg PO BID Qty: 20 0RF Discharge Orders: Discharge Order (Routine); Ordered 07/13/23 Ordered By: Cecile Berg Diet: Advance to usual diet Activity on Discharge: As tolerated Stand Alone Forms: Patient Portal Discharge page Activity Restrictions/Additional Instructions: Wound Care Recommendations: Continue follow up with Outpatient Wound Care Clinic for continued wound treatment. 1. Turn and Reposition every 2 hours and as needed for patient comfort consider use of waffle cushion or specialty cushion when up to chair. 2. Off Load all bony prominences with use of pillows or heel boots. 3. Provide adequate and supplemental nutrition. 4. Maintain blood glucose levels per Providers orders. 5. Left 5th toe - [place] with Betadine twice a day. Do not cover with foam dressing as this will donate moisture. The goal is to keep the black eschar dry at this time. If needed may cover with dry gauze. 6. Left lower Leg / Gaiter - Cleanse with normal saline, pat dry. ?Apply thin layer of Triad to the immediate kemal wound, apply thick layer of Santyl to entire wound bed. Apply normal saline moist gauze over Santyl then secure with abd pads and tape, change Daily. Care Plan Goals: Read below Health Concerns: Read below Plan of Treatment: Read below Assessment: Continue antibiotics as prescribed Follow with dr Sheppard as outpatient Wound care , keep the area dry and clean Come back to the hospital for any fever, drainage or increase pain Discharge Date/Time: 07/13/23 17:37
--- NOTE | 2023-07-13 11:05 | MHC.CM.PN ---
PT DISCHARGED HOME TODAY WITH HOME HEALTH SERVICES ORDERED REFERRAL MADE TO [facility], AWAITING RESPONSE
[2023-07-13 11:11] LABS: Glucose, Whole Blood 193 mg/dL (60-115)
--- NOTE | 2023-07-13 13:08 | MHC.CM.PN ---
Addendum entered by Akila Alford 07/13/23 13:14: VM MESSAGE LEFT FOR [facility] AT 1306 HOURS Original Note: PT WILL DC HOME TODAY WITH A REFERRAL TO THE WOUND CARE CLINIC FAM[facility] TO TRANSPORT
[2023-07-13] MEDS: Collagenase Clostridium Hist. 30 GM TUBE 1 APPL TOPICAL (13:48)
--- NOTE | 2023-07-13 14:10 | HO.WOUND ---
Wound Consult: Follow up 58yr old male admitted to [facility] on? 07/11/23 14:59- from Dr. Sheppard office with concern for infection of left leg - See progress notes and H&P for detailed history. Recommend follow up with Outpt Wound Clinic at time of discharge - pt states he has appointment booked at 07/26/23 at [facility]. Spoke to Dr. Sheppard via TT - agreeable to switching pt to Santyl for enzymatic debridement. Unchanged at todays assessment Left Gaiter Leg area Etiology: Diabetic Wound Wound Bed: loosely adherent brown black necrotic eschar moist at edges Drainage / Odor: scant yellow [place]za drainage no dressing at time of removal Edges: epibole Kemal wound: ?Hyperpigmentation - No Induration, No Fluctuance Pain: reports pain Goals of Treatment: ?Santyl for enzymatic debridement Applied this afternoon - pt ready for d/c to home. supplies provided for initial dressing changes at home. Unchanged at todays assessment Left 5th toe Etiology: Diabetic Wound Wound Bed: dry black stable necrotic eschar - no drainage no moisture noted Drainage / Odor: None Edges: ? Attached Kemal wound: ? red pink erythema No Induration, No Fluctuance Pain: reports mild pain Goals of Treatment: ? Protect from trauma - keep stable and dry with betadine twice daily. Recommendations: 1. Turn and Reposition every 2 hours and as needed for patient comfort consider use of wedges available in the storeroom. 2. Off Load all bony prominences with use of pillows, wedges and heel boots. 3. Provide adequate and supplemental nutrition. 4. Maintain blood glucose levels per Providers orders. 5. Left 5th toe - [place] with Betadine twice a day. Do not cover with foam dressing as this will donate moisture. The goal is to keep the black eschar dry at this time. If needed may cover with dry gauze. 6. Left lower Leg / Gaiter - Cleanse with normal saline, pat dry. ?Apply thin layer of Triad to the immediate kemal wound, apply thick layer of Santyl to entire wound bed. Apply normal saline moist gauze over Santyl then secure with abd pads and tape, change Daily. Re-consult wound care Nurse for wound deterioration or wound changes.
--- NOTE | 2023-07-13 14:26 | HO.VASCPN ---
Subjective Subjective Date of Service: 07/13/23 Patient reports: no new complaints and feels better Interval history: Patient seen and examined. He appears to be doing significantly better. Erythema and discomfort have significantly decreased. Pain appears to be well controlled. Has been seen by infectious disease. Patient is eager for discharge. Physical Exam Vital Signs: Vital Signs: Last Vital Signs Temp 96.8 F 07/13/23 07:44 Pulse 69 07/13/23 07:44 Resp 16 07/13/23 07:44 BP 144/80 H 07/13/23 07:44 Pulse Ox 94 07/13/23 07:44 O2 Del Method Room Air 07/13/23 07:44 O2 Flow Rate 97 07/12/23 19:48 BMI result Body Mass Index 34.0 Const: General: cooperative, healthy appearing and no acute distress Orientation/consciousness: oriented to person, oriented to place and oriented to time HEENT: Head: Yes normal to inspection Neck: Carotids: no bruits Chest: Chest palpation & inspection: normal inspection of the chest Resp: Effort & Inspection: normal respiratory effort and able to speak in complete sentences Auscultation: clear to auscultation bilaterally Cardio: Rate: regular rate Heart sounds: S1 normal heart sound present and S2 normal heart sound present GI: Inspection: Yes normal to inspection Skin: General skin exam: no rashes or lesions noted Wounds: no wounds Neuro: General: oriented to person, oriented to place, oriented to time and CN's II-XI intact bilaterally Extrem: General: Yes normal to inspection, Yes full ROM and Yes no clubbing, cyanosis or edema Psych: Appearance: grossly normal and well kempt Speech and movement: Normal speech and movement present Affect: normal affect Progress Note: A&P Assessment and plan (1) Diabetic foot infection: Status: Acute Assessment and Plan: Left foot appears to be significantly improved. There is decreased erythema and the ulcer on the 5th toe appears to be doing much better. Has been seen by infectious disease and is plan for 14 days of linezolid. The patient can see me in approximately 2 weeks after discharge. Thank you for allowing us to assist in his care. If there are any questions or concerns please do not hesitate to contact us. (2) Status post below-knee amputation: Status: Acute Assessment and Plan: Right stump doing well Time Spent With Patient Time: Total time managing care of this patient today ____ minutes. Procedures Date of Service Date of Service: 07/13/23 Quality Stroke Does the patient have a stroke diagnosis?: No VTE Prior VTE?: No VTE Risk Level:: Medical - moderate - high VTE Device Contraindication: Treatment Not Indicated VTE Drug Contraindication: N/A - Med Ordered
[2023-07-13 15:10] VITALS: BP 158/72; PULSE 67; RESP 18; TEMP 36.9; O2SAT 95
[2023-07-13 16:32] LABS: Glucose, Whole Blood 171 mg/dL (60-115)
== END 2023-07-13 17:37 | disposition home or self-care (01) | DRG 300 ==
LOC: HO.ED 14:50 → HO.EDOVER 15:24 → HO.S3 19:51
PROVIDERS: Admitting Provider Internal Medicine; Emergency Provider Emergency Medicine; PCP Internal Medicine; Visit Provider Student in an Organized Health Care Education/Training Program
DX: E11.51 Type 2 diabetes mellitus with diabetic peripheral angiopathy without gangrene (principal); I50.42 Chronic combined systolic (congestive) and diastolic (congestive) heart failure; L03.116 Cellulitis of left lower limb; F17.210 Nicotine dependence, cigarettes, uncomplicated; I25.10 Atherosclerotic heart disease of native coronary artery without angina pectoris; E11.40 Type 2 diabetes mellitus with diabetic neuropathy, unspecified; E66.9 Obesity, unspecified; Z23 Encounter for immunization; L97.529 Non-pressure chronic ulcer of other part of left foot with unspecified severity; Z89.511 Acquired absence of right leg below knee; Z68.34 Body mass index [BMI] 34.0-34.9, adult; Z71.6 Tobacco abuse counseling; Z79.4 Long term (current) use of insulin; Z79.82 Long term (current) use of aspirin; Z79.899 Other long term (current) drug therapy
CPT/HCPCS: 36415; 73630; 80048; 82947; 83605; 85025; 85027; 85652; 86140; 87040; 90686; 99285; J1650; J2270; J2543; J3370

== ENCOUNTER → 2023-07-11 14:59 | Outpatient (BNV) | payer MEDICARE, SELFPAY | PROVIDERS: Admitting Provider Internal Medicine; Emergency Provider Emergency Medicine; PCP Internal Medicine; Visit Provider Internal Medicine | DX: E11.628 Type 2 diabetes mellitus with other skin complications (principal); L08.9 Local infection of the skin and subcutaneous tissue, unspecified; Z89.511 Acquired absence of right leg below knee | CPT/HCPCS: 99222 ==

== ENCOUNTER → 2023-07-11 14:59 | Outpatient (BNV) | payer MEDICARE, SELFPAY | PROVIDERS: Admitting Provider Internal Medicine; Emergency Provider Emergency Medicine; PCP Internal Medicine; Visit Provider Surgery Vascular Surgery | DX: E11.621 Type 2 diabetes mellitus with foot ulcer (principal); L97.529 Non-pressure chronic ulcer of other part of left foot with unspecified severity; Z89.511 Acquired absence of right leg below knee | CPT/HCPCS: 99222; 99231 ==

== ENCOUNTER → 2023-07-11 14:59 | Outpatient (BNV) | payer MEDICARE, SELFPAY | PROVIDERS: Admitting Provider Internal Medicine; Emergency Provider Emergency Medicine; PCP Internal Medicine; Visit Provider Internal Medicine | DX: E11.628 Type 2 diabetes mellitus with other skin complications (principal); L08.9 Local infection of the skin and subcutaneous tissue, unspecified; I73.9 Peripheral vascular disease, unspecified | CPT/HCPCS: 99223; 99232; 99239 ==

== ENCOUNTER 2023-07-26 12:39 | Outpatient (RCR) | payer MEDICARE, SELFPAY | END 2024-01-25 12:15 | disposition home or self-care (01) | LOC: HO.WCC 12:39 | PROVIDERS: PCP Internal Medicine; Visit Provider Surgery | DX: E11.621 Type 2 diabetes mellitus with foot ulcer (principal); E11.52 Type 2 diabetes mellitus with diabetic peripheral angiopathy with gangrene; I70.245 Atherosclerosis of native arteries of left leg with ulceration of other part of foot; L97.521 Non-pressure chronic ulcer of other part of left foot limited to breakdown of skin; E11.622 Type 2 diabetes mellitus with other skin ulcer; I70.248 Atherosclerosis of native arteries of left leg with ulceration of other part of lower leg; L97.822 Non-pressure chronic ulcer of other part of left lower leg with fat layer exposed; E11.40 Type 2 diabetes mellitus with diabetic neuropathy, unspecified; I10 Essential (primary) hypertension; I25.2 Old myocardial infarction; Z89.511 Acquired absence of right leg below knee; Z87.891 Personal history of nicotine dependence | CPT/HCPCS: 11042; 97597; 99213; 99214 ==

== ENCOUNTER 2023-08-22 13:19 | Outpatient (AMB) | payer MEDICARE, SELFPAY ==
[2023-08-22 13:23] VITALS: BP 148/90; PULSE 101; O2SAT 99; BMI 34.0
--- NOTE | 2023-08-22 13:23 | MHC.OFFVIS ---
Intake Vital Signs 08/22/23 13:23 Height 5 ft 9 in Weight 230 lb BMI 34.0 BP 148/90 H Blood Pressure Location Rt brachial Position Sitting Pulse 101 H Pulse Source Pulse Oximeter Pulse Oximetry (%) 99 Oxygen Delivery Method Room Air Intake Visit Reasons: FU wound per wound care office Intake Note: Pt presents to the office today for a F/U wound care. Pt states he went to the wound care clinic on 08/18/23 and the nurse came to his house yesterday 08/21/23 and changed the dressing. Pt states he has the most pain on the bottom of his left foot. Pt denies any discharge from the wound. Allergies No Known Allergies [No Known Allergies*] Allergy (Verified 08/22/23 13:24) HPI FU wound per wound care office HPI Details Very pleasant 58-year-old gentleman presents for follow-up regarding his left lower extremity. He was seen by us and then subsequently admitted. He underwent endovascular intervention on 06/28/2023. At that time he had undergone left lower extremity plasty of the popliteal anterior tibial and peroneal arteries. Reports that he is doing fairly well since that time. He has a nonhealing pretibial ulcer and along with the low left great toe and 5th toe. There has been a source of pain and discomfort form. He now presents for routine follow-up. [facility] Medical History (Updated 08/22/23 @ 14:17 by Berto Sheppard MD) PAD (peripheral artery disease) Heartburn symptom Amputation stump infection Major depression, recurrent Erectile dysfunction Dyslipidemia Diabetes mellitus, with long-term current use of insulin Amputation stump complication Intractable left heel pain Chronic 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 Type 2 diabetes mellitus with diabetic polyneuropathy Type 2 diabetes mellitus with hyperglycemia Hyperlipidemia Chronic pancreatitis Essential hypertension Diabetes mellitus with hyperglycemia, with long-term current use of insulin Neuropathy Kidney calculus Failure of outpatient treatment Increased BMI Alcohol abuse CAD (coronary artery disease) Arthritis Surgical History S/P angiogram of extremity (06/28/23) History of right below knee amputation Status post below-knee amputation S/P debridement Hx of lithotripsy Status post laparoscopic cholecystectomy Hx of heart artery stent Family History Mother [place] (myocardial infarction), Onset Age: 64 Diabetes mellitus HTN (hypertension) Maternal Grandmother Diabetes mellitus Social History Household Members: Family Household Members Other:: and daughter Housing: House Do you presently have visiting nurse or other home services: No Alcohol intake: never Comment: pt ambulates with crutches. Patient Tobacco Use Status: Never used Tobacco Tobacco use type: Cigarette Cigarette Packs Per Day: 0.01 Cigarettes Per Day: 2 Years Smoked: 28 e-Cigarette/Vaping Use: Never Used Second Hand Smoke Exposure: Yes Substance Use Type: Marijuana Advance Directives Date on File: 04/17/21 service: No Current occupational status: unemployed and disabled Cognitive needs: No Hearing needs: No Vision needs: No Review of Systems Const All systems reviewed & are unremarkable except as noted in HPI and below Reports no additional complaints ENT Reports Normal hearing present Card Denies chest pain, Denies chest pain at rest, Denies chest pain with activity and Denies pedal edema Resp Denies cough GI Denies abdominal pain Musc Denies abnormal gait, Denies muscle cramps and Denies radiating pain into limb Skin/Breast Denies skin ulcer and Denies wounds Neuro Reports Normal hearing present and Denies abnormal gait Psych Reports no additional complaints Physical Exam Vital Signs: Last Vital Signs Pulse 101 H 08/22/23 13:23 BP 148/90 H 08/22/23 13:23 Pulse Ox 99 08/22/23 13:23 Oxygen Delivery Method Room Air 08/22/23 13:23 BMI result Body Mass Index 34.0 Const General: cooperative, healthy appearing and comfortable Orientation/consciousness: oriented to person, oriented to place and oriented to time HEENT Head: Yes normal to inspection Neck Neck: Yes normal visual inspection Carotids: no bruits Chest Chest palpation & inspection: normal inspection of the chest Resp Effort & Inspection: normal respiratory effort and able to speak in complete sentences Auscultation: clear to auscultation bilaterally, no crackles, no rales, no rhonchi and no wheezes Cardio Other: Bilateral DP signals Rate: regular rate Rhythm: regular rhythm Heart sounds: S1 normal heart sound present and S2 normal heart sound present Bruits: no carotid bruits Peripheral pulses: Peripheral pulses 2+ throughout GI Inspection: Yes normal to inspection Skin Other: Left pretibial surface 1.5 cm in diameter ulcer along with small ulcer of the left great toe left 5th toe has the entire lateral aspect with dry gangrene. Wounds: no wounds Hair: normal Neuro General: oriented to person, oriented to place and oriented to time Cranial nerves: Yes CN's II-XII intact bilaterally and Yes Normal hearing present Cognition (Neuro): normal cognition Motor exam (neuro): 5/5 motor strength present throughout Extrem Other: venous exam: No significant superficial varicosities or spider telangiectasias, minimal edema General: No clubbing, No cyanosis and No edema Psych Appearance: grossly normal Mental Status: mental status grossly normal Speech and movement: Normal speech and movement present Assessment & Plan Assessment & Plan (1) PAD (peripheral artery disease): Comment: 04/14/2021 - atherectomy and plasty of left SFA and popliteal artery, angioplasty of left anterior tibial posterior tibial and peroneal arteries 08/31/2021 - right BKA 11/29/2021 - revision right BKA 06/28/2023 - left anterior tibial plasty and perennial plasty and popliteal plasty Code(s): I73.9 - Peripheral vascular disease, unspecified Plan: In short patient appears to be doing well status post endovascular intervention. The concern here is the 5th toe. Question of viability of this overall. I have taken the liberty of ordering repeat arterial testing to better evaluate this. He may end up with that 5th toe being amputated. Would be aggressive with the Wound Care regarding the pretibial surface. We will schedule noninvasive testing and follow-up after. Thank you for allowing us to assist in his care. If there are questions or concerns please do not hesitate to contact us. Orders: Orders US arterial duplex LE LT 1 Week I73.9 - Peripheral vascular disease, unspecified Coding Level of Care Code Est Pt Level 4 (32202) Diagnoses PAD (peripheral artery disease) I73.9
== END 2023-08-22 13:52 | disposition home or self-care (01) ==
PROVIDERS: PCP Internal Medicine; Visit Provider Surgery Vascular Surgery
DX: I73.9 Peripheral vascular disease, unspecified (principal)
CPT/HCPCS: 99214

== ENCOUNTER → 2023-08-22 13:19 | Outpatient (BNVA) | payer MEDICARE, SELFPAY | PROVIDERS: PCP Internal Medicine; Visit Provider Surgery Vascular Surgery | DX: I73.9 Peripheral vascular disease, unspecified (principal) | CPT/HCPCS: 99212 ==

== ENCOUNTER 2023-08-25 08:27 | Outpatient (AMB) | payer OTHER, SELFPAY ==
--- NOTE | 2023-08-25 08:30 | A.OFFPC_ITS ---
Vital Signs 08/25/23 08:38 Height 5 ft 9 in Weight 229 lb BMI 33.8 BP 152/88 H Blood Pressure Location Lt brachial Position Sitting Pulse 98 Pulse Source Pulse Oximeter Pulse Oximetry (%) 96 Oxygen Delivery Method Room Air Intake Visit Reasons: Physical exam- needs PHQ9 +THRIVE Intake Note: Pt is here today for his PE: Pt never had a colonoscopy Allergies No Known Allergies [No Known Allergies*] Allergy (Verified 08/25/23 09:14) Medication List - Last Reconciled 08/25/23 by Shanta Haney MD aspirin 81 mg PO DAILY atorvastatin 80 mg PO BEDTIME [Bedside commode As directed] blood sugar diagnostic (FreeStyle Lite Strips) As directed blood-glucose meter (FreeStyle Lite Meter kit) As directed flash glucose scanning reader (FreeStyle Frank 2 Haynes) As directed flash glucose sensor (FreeStyle Frank 2 Sensor kit) As directed change every 14 days gabapentin 600 mg PO TID insulin glargine (Lantus Solostar U-100 Insulin) 24 units (0.24 mL) subcut BEDTIME insulin lispro 0 sliding scale doses See Protocol subcut TIDAC metoprolol succinate ER 50 mg PO DAILY omeprazole 40 mg PO DAILY pen needle, diabetic (BD Ultra-Fine Short Pen Needle) USE MARÍA LO INDICADO BENNETT VECES AL LIZZIE ANTES DE LAS COMIDAS [recliner As directed] sertraline 50 mg PO BEDTIME ticagrelor (Brilinta) 90 mg PO BID valsartan 40 mg PO BID [walker with wheels As directed] Tobacco use date assessed: 08/25/23 Dental Screening Dental Screen Date: 08/25/23 Did you have a dental visit in the last 12 months?: No Was dental information given to patient?: No HPI Physical exam- needs PHQ9 +THRIVE HPI Details 58-year-old male with uncontrolled diabe wilber mellitus, currently followed by endocrine clinic, with last hemoglobin A1c at 11.3 on 12/01/2022 . He was supposed to have a follow-up appointment yesterday with his subway train driver, but was unable to make it. Was placed on Farxiga 10 mg daily in a.m., Lantus Solostar 24 units at bedtime and insulin lispro per sliding scale coverage by Dr. Sanchez but patient states that he has been out of his Farxiga for about a month now, and has been only taking his Lantus and mealtime insulin. He has peripheral arterial disease s/p 04/14/2021 - atherectomy and plasty of left SFA and popliteal artery, angioplasty of left anterior tibial posterior tibial and peroneal arteries; 08/31/2021 - right BKA, 11/29/2021 - revision right BKA, 06/28/2023 - left anterior tibial plasty and perennial plasty and popliteal plasty , who was recently seen by Dr. Sheppard yesterday. There is a concern about his 5th toe, and there is an order for for repeat ultrasound arterial duplex left lower extremity to better evaluate the viability of toe, may need to amputate. He continues to see Wound Care regarding the pretibial surface. Complaining of severe pain in left toe and lower extremity, has only been taking Tylenol which has not afforded any relief, and has been advised by his eap specialist and subway train driver to request treatment for his pain from PCP. . Has hyperlipidemia currently on atorvastatin 80 mg at bedtime. He has coronary artery disease , with history of cardiac stenting, currently being [facility]. Will request copy of consult reports. He has not yet had his COVID vaccination or his shingles vaccine but is up-to-date with his flu shot, pneumonia vaccination and Tdap. He is overdue to get his screening colonoscopy, currently being followed at [facility]. Has anxiety depression currently on sertraline, which he states has been helping [facility] Medical History (Updated 08/27/23 @ 02:07 by Shanta Haney MD) 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 Diabetes mellitus with retinopathy, with long-term current use of insulin PAD (peripheral artery disease) Heartburn symptom Amputation stump infection Major depression, recurrent Erectile dysfunction Dyslipidemia Diabetes mellitus, with long-term current use of insulin Amputation stump complication Intractable left heel pain Chronic 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 Type 2 diabetes mellitus with diabetic polyneuropathy Type 2 diabetes mellitus with hyperglycemia Hyperlipidemia Chronic pancreatitis Essential hypertension Diabetes mellitus with hyperglycemia, with long-term current use of insulin Neuropathy Kidney calculus Failure of outpatient treatment Increased BMI Alcohol abuse CAD (coronary artery disease) Arthritis Surgical History S/P angiogram of extremity (06/28/23) History of right below knee amputation Status post below-knee amputation S/P debridement Hx of lithotripsy Status post laparoscopic cholecystectomy Hx of heart artery stent Family History Mother CO (myocardial infarction), Onset Age: 64 Diabetes mellitus HTN (hypertension) Maternal Grandmother Diabetes mellitus Social History Household Members: Family Household Members Other:: and daughter Housing: House Do you presently have visiting nurse or other home services: No Alcohol intake: never Comment: pt ambulates with crutches. Patient Tobacco Use Status: Current everyday Tobacco user Tobacco use type: Cigarette Cigarette Packs Per Day: 0.01 Cigarettes Per Day: 2 Years Smoked: 28 e-Cigarette/Vaping Use: Never Used Second Hand Smoke Exposure: Yes Substance Use Type: Marijuana Advance Directives Date on File: 04/17/21 service: No Current occupational status: unemployed and disabled Cognitive needs: No Hearing needs: No Vision needs: Yes Questionnaire PHQ-9 Over the last 2 weeks, how often have you been bothered by any of the following problems? 1. Little interest or pleasure in doing things: nearly every day 2. Feeling down, depressed, or hopeless: several days 3. Trouble falling or staying asleep, or sleeping too much: nearly every day 4. Feeling tired or having little energy: nearly every day 5. Poor appetite or overeating: several days 6. Feeling bad about yourself - or that you are a failure or have let yourself or your family down: more than half the days 7. Trouble concentrating on things, such as reading the newspaper or watching television: nearly every day 8. Moving or speaking so slowly that other people could have noticed. Or the opposite - being so fidgety or restless that you have been moving around a lot more than usual: nearly every day 9. Thoughts that you would be better off or of hurting yourself in some way: not at all Total score: 19 Depression Screening Interpretation: Positive Depression Screening Follow-up: Existing condition, In treatment and Community Mental Health Worker F/U Depression Screening Done: Yes 32299 - PHQ-9 Billing: Yes Source: Developed by Drs. William Burton, Jayla Donnelly, Joesph Fay and colleagues, with an educational miriam from [employer]. Thrive Questionnaire Date Thrive assessed: 08/25/23 I am a: Patient What is your living situation today?: I have a steady place to live Within the past 12 months, did the food you bought not last and you didn't have the money to get more?: Sometimes True Within the past 12 months, did you worry whether your food would run out before you got money to buy more?: Often true Do you have trouble paying for medicines?: No Do you have trouble getting transportation to medical appointments?: No Do you have trouble paying your heating and electricity bill?: Yes Do you have trouble taking care of your child, family member or friend?: No Do you have trouble with day-to-day activities such as bathing, preparing meals, shopping, managing finances, etc.?: Yes Are you currently unemployed and looking for a job?: No Are you interested in more education?: No AUDIT C Alcohol Use Questionnaire (AUDIT-C) 1. How often do you have a drink containing alcohol?: Never Total Score: 0 NASRIN-7 AMB Questionnaire NASRIN-7 Date NASRIN - 7 assessed: 08/25/23 Feeling nervous, anxious, or on edge: 3 = Nearly every day Not being able to stop or control worryin = Nearly every day Worrying too much about different things: 3 = Nearly every day Trouble relaxin = Nearly every day Being so restless that it is hard to sit still: 0 = Not at all Becoming easily annoyed or irritable: 3 = Nearly every day Feeling afraid as if something awful might happen: 3 = Nearly every day Total NASRIN-7 score (0-4 normal; 5-9 mild; 10-14 moderate; 15-21 severe): 18 Source: Developed by Drs. William Burton, Jayla Donnelly, Joesph Fay and colleagues, with an educational miriam from [employer]. 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 advised to call his insurance to find out who he can see for his diabetes eye screen/follow-up Reports no additional complaints ENT Reports Normal hearing present, Denies dizziness and Denies headache(s) Card Denies chest pain, Denies chest pain at rest, Denies chest pain with activity, Reports pedal edema, Denies irregular heart rhythm, Reports leg ulcers (Left leg) and Denies dyspnea Resp Denies cough and Denies dyspnea GI Reports as per HPI, Denies nausea and Denies vomiting Denies dysuria, Denies testicular pain, Reports urinary frequency and Denies urinary incontinence Musc Reports abnormal gait (Has right leg prosthesis), Denies muscle cramps, Reports numbness, Denies radiating pain into limb and Denies tingling Skin/Breast Details: Complaining of severe pain on left foot specially on left 5th toe, currently followed by Dr. Sheppard and wound care clinic in [place] Neuro Reports as per HPI, Reports Normal hearing present, Reports abnormal gait (Has right leg prosthesis), Reports burning sensations (Left lower extremity), Denies dizziness, Denies headache(s), Reports numbness, Denies convulsions, Denies tingling, Reports paresthesias and Denies weakness Psych Reports as per HPI Endo Reports polydipsia and Reports polyuria Chester/Lymph Reports no additional complaints, Denies easy bleeding and Denies easy bruising Aller/Immun Reports no additional complaints Physical exam (Primary Care) Vital Signs: Last Vital Signs Pulse 98 08/25/23 08:38 BP 152/88 H 08/25/23 08:38 Pulse Ox 96 08/25/23 08:38 Oxygen Delivery Method Room Air 08/25/23 08:38 BMI result Body Mass Index 33.8 Tobacco/Smoking Status: Tobacco use Status Tobacco use date assessed 08/25/23 08/25/23 08:31 Patient Tobacco Use Status Current everyday Tobacco 08/25/23 09:20 Tobacco use type Cigarette 08/25/23 08:31 e-Cigarette/Vaping Use Never Used 08/25/23 08:31 PHQ-9: PHQ-9 Score PHQ-9: Total score 19 08/27/23 02:11 Depression Screening Interpretation: Positive Depression Screening Follow-up: Existing condition, In treatment and Community Mental Health Worker F/U Thrive Assessment: Date of Thrive Assessment Date Thrive assessed 08/25/23 08/25/23 09:11 Const General: cooperative, comfortable and no acute distress Orientation/consciousness: patient oriented x3 HENMT Mouth: Normal oral and palatal mucosa present, tongue normal and moist mucous membranes Eyes General: appearance normal, both eyes and all related structures Neck Other: Supple, full range of motion, no lymphadenopathy, thyroid gland nonpalpable Resp Effort & Inspection: normal respiratory effort and able to speak in complete sentences Auscultation: clear to auscultation bilaterally Cardio Other: S1-S2 present regular rate and rhythm GI Other: Normal bowel sounds, soft, nontender, no mass palpated Skin Other: Stump on right BKA healed , ulcer noted on left great toe and left 5th toe with the wound over dorsal lateral aspect of left foot Neuro General: patient oriented x3 Cranial nerves: Yes Normal hearing present Cognition (Neuro): normal cognition Extrem Other: Right BKA Psych Appearance: grossly normal and well kempt Mental Status: mental status grossly normal Speech and movement: Normal speech and movement present Affect: normal affect Attitude: cooperative Thought process: Normal thought process present Thought content: Normal thought content present Results AMB Hemoglobin A1c AMB Hemoglobin A1c 10.2 % Last Edit by Theresa Malhotra CMA on 08/25/23 09:35 Results Reviewed Results Reviewed: Laboratory Last Values Hgb A1c (Clinic) 10.2 % (4.0-6.0) H 08/25/23 09:34 Name: Pierre Escalona Age/Sex: 58/M : 1965 Unit#: [id number] Attend Dr: Cecile Berg MD Re07/11/23 Status: DIS IN Location: [facility] [id number] Disch: 07/13/23 SPEC : [id number] SHASHI: 07/12/23 STATUS: COMP REQ : [id number] RECD: 07/12/[address]: Davon Sandovla MD COMP: 07/12/23 ENTERED: 07/12/[address]: Shanta Haney MD ORDERED: CBC No Diff Test Result Flag Reference Site WBC 9.4 4.8-10.8 X10*3/uL RBC 4.97 4.60-5.80 X10*6/uL HGB 13.4 L 14.0-18.0 g/dl HCT 41.5 L 42.0-52.0 % MCV 83.5 80.0-98.0 fL MCH 27.0 27.0-33.0 pg MCHC 32.3 31.0-36.0 g/dl RDW 15.1 11.0-16.0 % PLT 198 160-400 X10*3/uL MPV 10.5 9.4-12.4 fL NRBC Pct Auto 0.0 0.0-0.2 /100WBC NRBC Abs Auto 0.000 0.0-0.012 X10*3/uL Assessment and Plan Assessment & Plan (1) Annual visit for general adult medical examination with abnormal findings: Code(s): Z00.01 - Encounter for general adult medical examination with abnormal findings Plan: Will check appropriate labs. Recommended dental visit every 6 months and regular eye exams, at least every 2 years. Take adequate calcium in diet and vitamin-D 3 at 2000 IU per cap once a day, in addition to weight-bearing exercises to help maintain good muscle tone and weight control. Instructed to do self-breast exam, and recommended to get yearly mammogram, starting at age 40. Immunization information provided: Yearly flu vaccine, shingles vaccine starting at age 50, at age 65 to start getting Prevnar 13 followed 1 year later by Pneumovax 23. Colonoscopy (2) Diabetes mellitus with retinopathy, with long-term current use of insulin: Code(s): E11.319 - Type 2 diabetes mellitus with unspecified diabetic retinopathy without macular edema; Z79.4 - rat exterminator (current) use of insulin Plan: Patient states that he has been out of his for C go for a about a month now, did not request refills of medication. Has only been taking Lantus 24 units at bedtime and insulin lispro, only takes it twice a day and adjust it according to the sliding scale coverage. Patient states that his sugars in the morning has always been running from between 180-215, and has been running around the same in the evening. He missed his appointment with his subway train driver yesterday, advised to call and reschedule appointment as soon as possible as blood sugar is uncontrolled. Prescription refill sent for his Farxiga, advised to increase his Lantus dosing by 2 units every 2 days until he can get his fasting blood sugar in the morning tp below 150 mg per dL. He also was advised to call his insurance to see which utility plant operative he is allowed to see and to schedule appointment for his diabetes retinopathy screening. Recommended to get his COVID booster, and shingles vaccine, up-to-date with his pneumonia vaccination flu vaccine and Tdap.. (3) PAD (peripheral artery disease): Comment: 04/14/2021 - atherectomy and plasty of left SFA and popliteal artery, angioplasty of left anterior tibial posterior tibial and peroneal arteries 08/31/2021 - right BKA 11/29/2021 - revision right BKA 06/28/2023 - left anterior tibial plasty and perennial plasty and popliteal plasty Code(s): I73.9 - Peripheral vascular disease, unspecified Plan: Currently followed by vascular surgery (4) Major depression, recurrent: Code(s): F33.9 - Major depressive disorder, recurrent, unspecified Qualifiers: Active/Remission status: currently active Major depression episode severity: moderate Qualified Code(s): F33.1 - Major depressive disorder, recurrent, moderate Plan: Continued on sertraline, declines referral for therapy (5) Dyslipidemia: Code(s): E78.5 - Hyperlipidemia, unspecified Plan: Fasting lipid panel ordered together with liver enzymes. In the meantime continue with atorvastatin 80 mg daily, reinforced importance of following a low-cholesterol diet (6) Essential hypertension: Code(s): I10 - Essential (primary) hypertension Plan: Blood pressure noted to be elevated today due to patient being in constant pain. Currently on valsartan 40 mg 1 tablet twice a day and metoprolol succinate ER 50 mg once a day. Patient is currently being followed by cardiology at [place] and [facility], requested copy of consult reports (7) Intractable heel pain: Code(s): M79.673 - Pain in unspecified foot Plan: Currently followed by [facility] wound clinic, and has VNA changing dressing in left foot. Reinforced importance of keeping diabetes mellitus, hypertension and diabetes mellitus in good control (8) Diabetic foot ulcer: Code(s): E11.621 - Type 2 diabetes mellitus with foot ulcer; L97.509 - Non-pressure chronic ulcer of other part of unspecified foot with unspecified severity Qualifiers: Diabetes mellitus type: type 2 Diabetic foot ulcer location: toe Laterality: left Plan: Followed at [facility] wound care clinic-,- Patient states that Tylenol has not been helping, unable to take NSAIDs. Will prescribe a short course of tramadol 50 mg per tablet to take 1 tablet once or twice a day together with Tylenol 325 mg, as needed for pain. Advised to follow-up with his vascular surgeon and [facility] wound clinic if pain persists patient states that he has been out of his Farxiga for a month now, did not request a refill (9) 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: Code(s): E11.42 - Type 2 diabetes mellitus with diabetic polyneuropathy; E11.65 - Type 2 diabetes mellitus with hyperglycemia Plan: Refill sent for his gabapentin Orders: Orders AMB Hemoglobin A1c 08/25/23 E11.628 - Type 2 diabetes mellitus with other skin complications, L08.9 - Local infection of the skin and subcutaneous tissue, unspecified Lipid Panel Today E11.319 - Type 2 diabetes mellitus with unspecified diabetic retinopathy without macular edema, E11.42 - Type 2 diabetes mellitus with diabetic polyneuropathy, E11.65 - Type 2 diabetes mellitus with hyperglycemia, E78.5 - Hyperlipidemia, unspecified, I10 - Essential (primary) hypertension, I73.9 - Peripheral vascular disease, unspecified, Z79.4 - penitentiary (current) use of insulin Aspartate Amino Transferase Today E11.319 - Type 2 diabetes mellitus with unspecified diabetic retinopathy without macular edema, E11.42 - Type 2 diabetes mellitus with diabetic polyneuropathy, E11.65 - Type 2 diabetes mellitus with hyperglycemia, E78.5 - Hyperlipidemia, unspecified, I10 - Essential (primary) hypertension, I73.9 - Peripheral vascular disease, unspecified, Z79.4 - penitentiary (current) use of insulin Basic Metabolic Panel Fasting Today E11.319 - Type 2 diabetes mellitus with unspecified diabetic retinopathy without macular edema, E11.42 - Type 2 diabetes mellitus with diabetic polyneuropathy, E11.65 - Type 2 diabetes mellitus with hyperglycemia, E78.5 - Hyperlipidemia, unspecified, I10 - Essential (primary) hypertension, I73.9 - Peripheral vascular disease, unspecified, Z79.4 - penitentiary (current) use of insulin Medications: New tramadol 50 mg PO DAILY PRN 14 tabs 0RF pain Farxiga (dapagliflozin propanediol) 10 mg PO QAM 30 tabs 5RF NS E11.319 - Type 2 diabetes mellitus with unspecified diabetic retinopathy without macular edema, E11.42 - Type 2 diabetes mellitus with diabetic polyneuropathy, E11.628 - Type 2 diabetes mellitus with other skin complications, E11.65 - Type 2 diabetes mellitus with hyperglycemia, I73.9 - Peripheral vascular disease, unspecified, L08.9 - Local infection of the skin and subcutaneous tissue, unspecified, Z79.4 - penitentiary (current) use of insulin, Z95.5 - Presence of coronary angioplasty implant and graft Changed From sertraline 75 mg (1.5 x 50 mg) PO BEDTIME 135 tabs 1RF To sertraline 50 mg PO BEDTIME Refilled gabapentin 600 mg PO TID 90 tabs 4RF Coding Level of Care Code Est Pt Prev Care 40-64y(36131) Diagnoses Annual visit for general adult medical examination with abnormal findings Z00.01 Diabetes mellitus with retinopathy, with long-term current use of insulin E11.319; Z79.4 PAD (peripheral artery disease) I73.9 Moderate episode of recurrent major depressive disorder F33.1 Active/Remission status: currently active Major depression episode severity: moderate Dyslipidemia E78.5 Essential hypertension I10 Intractable heel pain M79.673 Diabetic foot ulcer E11.621; L97.509 Diabetes mellitus type: type 2 Diabetic foot ulcer location: toe Laterality: left 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 E11.42; E11.65 Additional Codes NASRIN-7 Assessment Billing - NASRIN-7 Assessment Tool: NASRIN-7 Assessment 76425 ([id number])
[2023-08-25 08:38] VITALS: BP 152/88; PULSE 98; O2SAT 96; BMI 33.8
== END 2023-08-25 09:59 | disposition home or self-care (01) ==
PROVIDERS: PCP Internal Medicine; Visit Provider Internal Medicine
DX: E11.628 Type 2 diabetes mellitus with other skin complications (principal); L08.9 Local infection of the skin and subcutaneous tissue, unspecified
CPT/HCPCS: 83036; 96127; 99213; 99396

== ENCOUNTER 2023-09-11 14:05 | Inpatient (IN) | payer MEDICARE, SELFPAY ==
--- NOTE | ~2023-09-11 | XR_ITS ---
EXAMINATION: XR CHEST CLINICAL INFORMATION: Chest pain COMPARISON: None available. TECHNIQUE: 2 views of the chest were obtained. FINDINGS: No significant abnormality is noted involving the heart, lungs, mediastinum, bony thorax or soft tissues. XR/XR chest 2V IMPRESSION: Unremarkable chest examination.
--- NOTE | ~2023-09-11 | CT_ITS ---
EXAMINATION: CT HEAD WITHOUT CONTRAST CLINICAL INFORMATION: Headache, sudden onset COMPARISON: CT angiogram head and neck 07/02/2020 TECHNIQUE: Contiguous axial imaging was performed from the skull base to vertex without intravenous administration of contrast. This CT examination was performed using dose optimization techniques as appropriate, variously including the following: *Automated exposure control *Adjustment of mA and/or kV according to patient size (this includes techniques or standardized protocols for targeted exams where dose is matched to indication/reason for exam; i.e. extremities or head) *Use of iterative reconstruction technique DLP: 953 mGy-cm FINDINGS: There is no intracranial hemorrhage or evidence of acute territorial infarction. There is no mass effect or midline shift. No extra-axial fluid collection. Jenkins-white matter differentiation is preserved Proportional prominence of the ventricles and sulci. There is mild low-attenuation in the periventricular white matter consistent with chronic small vessel ischemic disease. Marked calcification of the anterior falx is again noted. The visualized paranasal sinuses and mastoid air cells are clear. Rightward nasal septal deviation with spurring. Bilateral lens implants are noted. No acute osseous abnormality. The patient is edentulous. There is calcific atherosclerotic disease of the intracranial internal carotid arteries. CT/CT head/brain wo IV con IMPRESSION: No acute intracranial pathology.
--- NOTE | 2023-09-11 14:42 | ECG_ITS ---
Test Reason : CHEST PAIN Blood Pressure : / mmHG Vent. Rate : 115 BPM Atrial Rate : 000 BPM P-R Int : 000 ms QRS Dur : 136 ms QT Int : 342 ms P-R-T Axes : 000 207 025 degrees QTc Int : 473 ms Atrial fibrillation with rapid ventricular response Right bundle branch block Abnormal ECG When compared with ECG of 06-MAR-2023 21:00, Atrial fibrillation has replaced Sinus rhythm Vent. rate has increased BY 42 BPM Left anterior fascicular block is no longer Present T wave inversion no longer evident in Lateral leads Referred By: Ambrose Ceballos Electronically Signed By:SOHAM CARTER
[2023-09-11 14:44] VITALS: BP 104/72; PULSE 150; BMI 32.7
--- NOTE | 2023-09-11 14:44 | ED_ITS ---
HPI - General Adult General Chief complaint: Chest Pain Stated complaint: TACHY W/R SHOULDER+JAW PAIN Time Seen by Provider: 09/11/23 14:30 Source: patient and family History of Present Illness HPI narrative: 58 years old with history of CAD, status post stent, diabetes, hypertension, hyperlipidemia, right below-knee amputation, left diabetic foot ulcer, presents to the emergency room from wound care clinic for chest pain, headache, bilateral shoulder pain. Patient reports that pain started suddenly around 12 30 today, prior to that the patient reports that for the past few weeks it being having pain in his left foot and that for this reason he is being seen in the [facility] and that is pending an evaluation for possible amputation on the 19 of September. At the time of assessment patient reports 10 headache with radiation to both shoulders, he reports that the pain in his chest subsided and reports the symptoms are not similar to his prior NM. He denies unilateral weakness, blurry vision or slurred speech reports however that does not see well from diabetic retinopathy on the left eye. Patient denies abdominal pain nausea or vomiting. Nonbloody stools Related Data Home Medications Medication Instructions Recorded Confirmed blood sugar diagnostic (FreeStyle 12/01/22 06/28/23 Lite Strips) blood-glucose meter (FreeStyle 12/01/22 06/28/23 Lite Meter kit) atorvastatin 80 mg tablet 80 mg PO BEDTIME 06/20/23 07/11/23 valsartan 40 mg tablet 40 mg PO BID 06/20/23 07/11/23 insulin lispro 100 unit/mL 0 sliding scale dose subcut TIDAC 07/11/23 07/11/23 subcutaneous pen ticagrelor 90 mg tablet (Brilinta) 90 mg PO BID 07/11/23 07/11/23 sertraline 50 mg tablet 50 mg PO BEDTIME 08/25/23 08/25/23 Previous Rx's Medication Instructions Recorded Bedside commode #1 ea 04/18/22 walker with wheels #1 ea 08/19/22 pen needle, diabetic 31 gauge x #100 ea 10/20/22 5/16 (BD Ultra-Fine Short Pen Needle) recliner #1 ea 11/23/22 flash glucose scanning reader #1 ea 12/02/22 (FreeStyle Frank 2 Baker) flash glucose sensor (FreeStyle #2 ea 03/06/23 Frank 2 Sensor kit) insulin glargine 100 unit/mL (3 24 unit (0.24 mL) subcut BEDTIME 05/18/23 mL) subcutaneous pen (Lantus #15 mL Solostar U-100 Insulin) Farxiga 10 mg tablet 10 mg PO QAM #30 tabs 08/25/23 (dapagliflozin propanediol) gabapentin 600 mg tablet 600 mg PO TID #90 tabs 08/25/23 tramadol 50 mg tablet 50 mg PO DAILY PRN pain #14 tabs 08/25/23 aspirin 81 mg chewable tablet 81 mg PO DAILY #90 tabs 09/10/23 metoprolol succinate 50 mg 50 mg PO DAILY #90 tabs 09/10/23 tablet,extended release 24 hr omeprazole 40 mg capsule,delayed 40 mg PO DAILY #30 caps 09/10/23 release Allergies Allergy/AdvReac Type Severity Reaction Status Date / Time No Known Allergies Allergy Verified 08/25/23 09:14 [No Known Allergies*] Review of Systems 2 Review of Systems: Yes all other systems are reviewed and are negative PMFSH Past Medical History Onset Date is defined in the Problem List Problems that require an onset date and time if occurred within 24 hrs of arrival to the ED Aortic Dissection and Rupture; Neurologic impairment; Cardiopulmonary Arrest; Endotracheal Intubation; Insertion or Replacement of Mechanical Circulatory Assist Device Medical History (Updated 09/11/23 @ 18:21 by Ambrose Ceballos MD) 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 Diabetes mellitus with retinopathy, with long-term current use of insulin PAD (peripheral artery disease) Heartburn symptom Amputation stump infection Major depression, recurrent Erectile dysfunction Dyslipidemia Diabetes mellitus, with long-term current use of insulin Amputation stump complication Intractable left heel pain Chronic 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 Type 2 diabetes mellitus with diabetic polyneuropathy Type 2 diabetes mellitus with hyperglycemia Hyperlipidemia Chronic pancreatitis Essential hypertension Diabetes mellitus with hyperglycemia, with long-term current use of insulin Neuropathy Kidney calculus Failure of outpatient treatment Increased BMI Alcohol abuse CAD (coronary artery disease) Arthritis Surgical History S/P angiogram of extremity (06/28/23) History of right below knee amputation Status post below-knee amputation S/P debridement Hx of lithotripsy Status post laparoscopic cholecystectomy Hx of heart artery stent Family History Family History Mother [place] (myocardial infarction), Onset Age: 64 Diabetes mellitus HTN (hypertension) Maternal Grandmother Diabetes mellitus Social History Social History Household Members: Family Household Members Other:: and daughter Housing: House Do you presently have visiting nurse or other home services: No Alcohol intake: never Comment: pt ambulates with crutches. Patient Tobacco Use Status: Current everyday Tobacco user Tobacco use type: Cigarette Cigarette Packs Per Day: 0.01 Cigarettes Per Day: 2 Years Smoked: 28 e-Cigarette/Vaping Use: Never Used Second Hand Smoke Exposure: Yes Substance Use Type: Marijuana Advance Directives: No Advance Directives Information Provided: No Advance Directives Date on File: 04/17/21 service: No Current occupational status: unemployed and disabled Cognitive needs: No Hearing needs: No Vision needs: Yes Physical Exam ED Vital Signs: Vital Signs - 24 hr 09/11/23 14:56 Pulse Rate 78 Respiratory Rate 14 Blood Pressure 95/53 L Pulse Oximetry 98 Oxygen Delivery Method Room Air BMI result Body Mass Index 32.7 General: Alert, Not in Distress Skin: necotic ulcer of 1st and 5th digit L foot HEENT: Atraumatic, No Exudate or Pharyngeal Erythema Resp: Normal Breath sounds bilaterally Cardio: Tachycardic. ABD: Abd soft, non tender, no guarding or rebound. Normal Bowel sounds. : No cva tenderness Neuro: Alert, oriented x4, PERRL Strenght 5/5 on all extremities Sensation is preserved in both lower and upper extremities Index to nose: normal Cranial Nerves II-XII grossly intact No dysarthria, or aphasia No neglet. Visual carmona are normal bilaterally Psych: Cooperative, NO SI Course Reevaluation(s) Reevaluation #1: Patient is back on sinus rhythm. We will obtain EKG. I personally reviewed the patient's CT head which shows no acute bleeding. Pending formal report headache has improved. No chest pain or SOB at this time Time: 15:54 Reevaluation #2: Troponin mildly elevated at 43. The patient's symptoms have improved. Chads Vasc 3, will consult hospitalist for admission for chest pain workup Likely troponin leak is secondary to type 2 NM. patient already on aspirin and ticagrelor, compliant with his medications I do not think he requires an aspirin load at this time. We will also wait on anticoagulation considering the patient is already on dual antiplatelet and will leave this decision to Cardiology. Time: 17:18 Reevaluation #3: Second troponin 660 still type 2 NM the most likely cause. Patient does not have chest pain. Discussed with cardiology who recommended admission and heparin drip. Will admit to hospital. Time: 18:18 Medications Administered Discontinued Medications Generic Name Dose Route Start Last Admin Trade Name Freq PRN Reason Stop Dose Admin Acetaminophen 975 mg 09/11/23 14:41 09/11/23 15:27 Acetaminophen 325 Mg Tablet PO 09/11/23 14:42 975 mg ONCE ONE Administration Sodium Chloride 500 mls @ 999 mls/hr 09/11/23 15:00 09/11/23 15:27 Ns IV 09/11/23 15:30 999 mls/hr .Q31M SHELLY Administration Morphine Sulfate 2 mg 09/11/23 14:41 09/11/23 15:27 Morphine Sulfate 2 Mg/Ml Cartridge IVPUSH 09/11/23 14:42 2 mg ONCE ONE Administration Protocol Medical Decision Making Medical Decision Making [facility] Narrative: Patient presented to the emergency room for evaluation of chest pain and headache. Seems to be different from his prior NM. Possible differential diagnosis at this time include migraine, can not rule out subarachnoid bleed, anxiety, atypical chest pain or ACS. Considering patient has no shortness of breath, saturating well I have very low suspicion for PE. Plan: CBC, BMP, troponin EKG Analgesia CT head to rule out subarachnoid bleed. 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 09/11/23 15:28 09/11/23 15:28 Labs: Lab Results 09/11/23 09/11/23 Range/Units 15:28 17:14 WBC 11.0 H (4.8-10.8) X10*3/uL RBC 6.05 H D (4.60-5.80) X10*6/uL Hgb 15.9 (14.0-18.0) g/dl Hct 49.2 (42.0-52.0) % MCV 81.3 (80.0-98.0) fL MCH 26.3 L (27.0-33.0) pg MCHC 32.3 (31.0-36.0) g/dl RDW 15.4 (11.0-16.0) % Plt Count 290 D (160-400) X10*3/uL MPV 11.2 (9.4-12.4) fL Immature Gran % (Auto) 0.5 H (0.0-0.4) % Neut % (Auto) 64.1 (45-73) % Lymph % (Auto) 22.4 (20-40) % [place] % (Auto) 7.8 (2-11) % Eos % (Auto) 4.5 H (0-4) % Baso % (Auto) 0.7 (0-2) % Lymph # (Auto) 2.5 (1.2-4.9) X10*3/uL [place] # (Auto) 0.9 (0.1-1.2) X10*3/uL Eos # (Auto) 0.5 H (0.0-0.4) X10*3/uL Baso # (Auto) 0.1 (0.0-0.2) X10*3/uL Abs Immat Gran (auto) 0.06 H (0.00-0.03) X10*3/uL Absolute Neuts (auto) 7.0 (2.0-8.3) x10*3/uL Absolute Nucleated RBC 0.000 (0.0-0.012) X10*3/uL Nucleated RBC % (auto) 0.0 (0.0-0.2) /100WBC Hold Blue Top SEE NOTE Sodium 139 (135-145) mmol/L Potassium 4.7 (3.3-5.1) mmol/L Chloride 103 (96-108) mmol/L Carbon Dioxide 23 (22-29) mmol/L Anion Gap 18 (12-20) BUN 21 H (9-16) mg/dL Creatinine 1.04 (0.5-1.4) mg/dL Estim Creat Clear Calc 91.5 Estimated GFR > 60 Random Glucose 268 H (60-115) mg/dL Calcium 9.8 D (8.4-10.2) mg/dL Troponin I High Sens 43.3 H D 660.8 H* D (<3.5-35.0) ng/L Independent Interpretation I performed an independent interpretation of an: EKG (Atrial fibrillation, repolarization abnormality in lateral leads. ), Rhythm Strip, Plain X-Ray (normal cxr) and CT Scan (normal CT head) Independent Historian Clinical information obtained from an independent historian. History obtained from or confirmed by: Other (daughter) External Record Review External record reviewed: Inpatient record Chronic Conditions Patient?s care impacted by: Diabetes and Hypertension Discharge Plan Discharge Clinical Impression: Atrial fibrillation, Acute non-ST elevation myocardial infarction (NSTEMI), Headache Patient Disposition: Admitted As Inpatient Prescriptions: No Action (DME) Bedside commode See Rx Instructions .Route .MEDSUPPLY Qty: 1 0RF Rx Instructions: As directed (DME) walker with wheels See Rx Instructions .Route .MEDSUPPLY Qty: 1 0RF Rx Instructions: As directed (DME) pen needle, diabetic [BD Ultra-Fine Short Pen Needle] 31 gauge x 5/16 needle See Rx Instructions .ROUTE .COMPLEX Qty: 100 5RF Dose Instruction: USE MARÍA LO INDICADO BENNETT VECES AL LIZZIE ANTES DE LAS COMIDAS Rx Instructions: USE MARÍA LO INDICADO BENNETT VECES AL LIZZIE ANTES DE LAS COMIDAS (DME) recliner See Rx Instructions .Route .MEDSUPPLY Qty: 1 0RF Rx Instructions: As directed (DME) FreeStyle Frank 2 Baker Misc See Rx Instructions .Route Qty: 1 0RF Rx Instructions: As directed (DME) FreeStyle Frank 2 Sensor Kit See Rx Instructions .Route Qty: 2 8RF Rx Instructions: As directed change every 14 days insulin glargine [Lantus Solostar U-100 Insulin] 100 unit/mL (3 mL) insulin pen 24 unit subcut BEDTIME Qty: 15 6RF aspirin 81 mg tablet,chewable 81 mg PO DAILY Qty: 90 1RF omeprazole 40 mg capsule,delayed release(DR/EC) 40 mg PO DAILY Qty: 30 2RF metoprolol succinate 50 mg tablet extended release 24 hr 50 mg PO DAILY Qty: 90 1RF Brilinta 90 mg tablet 90 mg PO BID insulin lispro 100 unit/mL insulin pen 0 sliding scale dose subcut TIDAC Protocol: Insulin Correction Scale Less than or equal to 110 ---- Give (units): 0 111 to 150 Give (units): 0 151 to 200 Give (units): 2 201 to 250 Give (units): 4 251 to 300 Give (units): 6 301 to 350 Give (units): 8 Greater than 350 Give (units): 10 Call MD if Blood Glucose > : 350 sertraline 50 mg tablet 50 mg PO BEDTIME tramadol 50 mg tablet 50 mg PO DAILY PRN (Reason: pain) Qty: 14 0RF Farxiga 10 mg tablet 10 mg PO QAM Qty: 30 5RF gabapentin 600 mg tablet 600 mg PO TID Qty: 90 4RF (DME) blood-glucose meter [FreeStyle Lite Meter] Kit See Rx Instructions .Route Rx Instructions: As directed (DME) FreeStyle Lite Strips Strip See Rx Instructions .Route Rx Instructions: As directed valsartan 40 mg tablet 40 mg PO BID atorvastatin 80 mg tablet 80 mg PO BEDTIME
[2023-09-11 14:56] VITALS: BP 95/53; PULSE 78; RESP 14; O2SAT 98
[2023-09-11] MEDS: 0.9 % Sodium Chloride 500 ML 999 ML IV (15:27)
[2023-09-11] MEDS: Morphine Sulfate 2 MG/ML CARTRIDGE IVPUSH ×3 (15:27→23:19)
[2023-09-11] MEDS: Acetaminophen 325 MG TABLET 975 MG PO (15:27)
[2023-09-11 15:35] LABS: MANUAL DIFF FLAG NO
--- NOTE | 2023-09-11 15:36 | ECG_ITS ---
Test Reason : TACHYCARDIA Blood Pressure : / mmHG Vent. Rate : 072 BPM Atrial Rate : 072 BPM P-R Int : 192 ms QRS Dur : 140 ms QT Int : 408 ms P-R-T Axes : 016 -59 136 degrees QTc Int : 446 ms Normal sinus rhythm Right bundle branch block Left anterior fascicular block Bifascicular block Left ventricular hypertrophy with repolarization abnormality ( R in aVL ) Abnormal ECG When compared with ECG of 11-SEP-2023 14:48, rhythm change Referred By: Ambrose Ceballos Electronically Signed By:SOHAM CARTER
[2023-09-11 15:42] LABS: Basophils Absolute Auto 0.1 X10*3/uL (0.0-0.2); Basophils Percent Auto 0.7 % (0-2); Eosinophils Absolute Auto 0.5 X10*3/uL (0.0-0.4); Eosinophils Percent Auto 4.5 % (0-4); Hematocrit 49.2 % (42.0-52.0); Hemoglobin 15.9 g/dl (14.0-18.0); Imm Gran Abs Auto 0.06 X10*3/uL (0.00-0.03); Imm Gran Pct Auto 0.5 % (0.0-0.4); Lymphocytes Absolute Auto 2.5 X10*3/uL (1.2-4.9); Lymphocytes Percent Auto 22.4 % (20-40); Mean Corpuscular HGB Conc 32.3 g/dl (31.0-36.0); Mean Corpuscular Hemoglobin 26.3 pg (27.0-33.0); Mean Corpuscular Volume 81.3 fL (80.0-98.0); Mean Platelet Volume 11.2 fL (9.4-12.4); Monocytes Absolute Auto 0.9 X10*3/uL (0.1-1.2); Monocytes Percent Auto 7.8 % (2-11); Neutrophils Percent Auto 64.1 % (45-73); Platelet Count 290 X10*3/uL (160-400); Red Blood Count 6.05 X10*6/uL (4.60-5.80); Red Cell Distribution Width 15.4 % (11.0-16.0)
[2023-09-11 15:56] LABS: Anion Gap 18 (12-20); Blood Urea Nitrogen 21 mg/dL (9-16); Calcium 9.8 mg/dL (8.4-10.2); Carbon Dioxide 23 mmol/L (22-29); Chloride 103 mmol/L (96-108); Creatinine Clr Calc Pharmacy 91.5; Estimated Glomerular Filt Rate > 60; Glucose Random 268 mg/dL (60-115); Potassium 4.7 mmol/L (3.3-5.1); Sodium 139 mmol/L (135-145)
[2023-09-11 16:05] LABS: Troponin-I High Sensitivity 43.3 ng/L (<3.5-35.0)
[2023-09-11 17:51] LABS: Troponin-I High Sensitivity 660.8 ng/L (<3.5-35.0)
[2023-09-11 18:34] LABS: INTERNATIONAL NORM RATIO 0.9 (0.9-1.1); Prothrombin Time 10.6 SEC (11.1-13.3)
[2023-09-11 18:37] LABS: PTT Heparin Drip 30.7 SEC (53-77.9)
--- NOTE | 2023-09-11 18:42 | PM.IMHP ---
History of Present Illness Date of Service: 09/11/23 Attending physician on admission: Steve Toribio Chief Complaint: lightheadness, headache 58-year-old male with history of uncontrolled insulin-dependent type 2 diabetes, peripheral artery disease s/p right BKA, 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 The patient also states that he was short of breath and lightheaded but denies any chest pains. Denies any sick contacts. No fevers or chills. Denies any palpitations. He states he is still slightly lightheaded and feels weak. He follows with Dr. Sheppard outpt and will likely need amputation of R 5th toe, has arterial studies scheduled on 09/19. On arrival, VSS, though bp soft at 95/53. There is a mild leukocytosis 11.0, RBC 6.05, H/H 15.9/49.2, likely hemoconcentrated. Renal function baseline, lytes normal. Glucose 268. Initial trop 43.3, repeat 660. Initial EKG showed atrial fibrillation with RVR, rate 115, right bundle branch block, no other ST/T-wave abnormality. He was given 1 L IV NS and converted out of atrial fibrillation to NSR, rate 72. He denies any known history of atrial fibrillation. Head CT was without any acute intracranial abnormality. Chest x-ray negative for any acute cardiopulmonary abnormality. In addition to IV fluids, he also received 2 mg IV morphine. Case was discussed with Cardiology and patient will be started on heparin drip per protocol and admitted for further evaluation. Review of Systems Review of Systems: General: No fevers, malaise, unintentional weight loss. +general weakness HEENT: No blurred vision, diplopia. No sore throat, nasal congestion, rhinorrhea, sinus pain, ear pain Cardiovascular: No chest pain, palpitations, or leg edema. +lightheaded Respiratory: No shortness of breath, wheezing, cough GI: No abdominal pain, nausea, vomiting, diarrhea : No dysuria, hematuria, increased urinary frequency, decreased urinary output MSK: No myalgia, back pain. +pain left foot Neuro: No headaches, focal weakness, paresthesias Skin: No rashes or lesions [facility] Medical History 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 Diabetes mellitus with retinopathy, with long-term current use of insulin PAD (peripheral artery disease) Heartburn symptom Amputation stump infection Major depression, recurrent Erectile dysfunction Dyslipidemia Diabetes mellitus, with long-term current use of insulin Amputation stump complication Intractable left heel pain Chronic 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 Type 2 diabetes mellitus with diabetic polyneuropathy Type 2 diabetes mellitus with hyperglycemia Hyperlipidemia Chronic pancreatitis Essential hypertension Diabetes mellitus with hyperglycemia, with long-term current use of insulin Neuropathy Kidney calculus Failure of outpatient treatment Increased BMI Alcohol abuse CAD (coronary artery disease) Arthritis Family History Mother [place] (myocardial infarction), Onset Age: 64 Diabetes mellitus HTN (hypertension) Maternal Grandmother Diabetes mellitus Surgical History S/P angiogram of extremity (06/28/23) History of right below knee amputation Status post below-knee amputation S/P debridement Hx of lithotripsy Status post laparoscopic cholecystectomy Hx of heart artery stent Social History Household Members: Spouse and Children Household Members Other:: and daughter Housing: House Do you presently have visiting nurse or other home services: Yes (wound care nurse 3 days a week) Alcohol intake: never Comment: pt ambulates with crutches. Patient Tobacco Use Status: Current everyday Tobacco user Tobacco use type: Cigarette Cigarette Packs Per Day: 0.01 Cigarettes Per Day: 3 Years Smoked: 28 Smoked in Last 30 Days: Yes e-Cigarette/Vaping Use: Never Used Patient Interested in Nicotine Replacement: Yes Patient Given Instructions on How to Stop Smoking: Yes Date Education Initiated: 09/11/23 Second Hand Smoke Exposure: No Use of substances other than those prescribed or required for medical reasons: Yes Substance Use Type: Marijuana Currently Displaying Signs/Symptoms of Drug Intoxication Withdrawal: No Any prior treatment program specific to substance use: No Have you been hit, kicked, punched, or otherwise hurt by someone within the past year? If so, by whom?: No Do you feel safe in your current relationship?: Yes Is there a partner from a previous relationship who is making you feel unsafe now?: No Are you made to feel afraid or neglected: No Advance Directives: No Advance Directives Information Provided: No Advance Directives Date on File: 04/17/21 Do you have thoughts of harming others: None Do you have a plan to hurt others: No Plan Recently lost weight without trying: Yes Nutrition Risks: Diabetes new onset/Uncontrolled Poor oral hygiene: No service: No Current occupational status: unemployed and disabled Cognitive needs: No Hearing needs: No Vision needs: Yes Meds Allergies Allergy/AdvReac Type Severity Reaction Status Date / Time No Known Allergies Allergy Verified 08/25/23 09:14 [No Known Allergies*] Active Medications: Current Medications Heparin Sodium (Porcine) (Heparin Sodium,Porcine 5,000 Unit/Ml Vial) 4,000 unit 40 unit/kg (4000 unit) IVPUSH PROTOCOL BOLUS PRN; Protocol PRN Reason: 40 unit/kg - Heparin Protocol Heparin Sodium (Porcine) (Heparin Sodium,Porcine 5,000 Unit/Ml Vial) 8,000 unit 80 unit/kg (8000 unit) IVPUSH PROTOCOL BOLUS PRN; Protocol PRN Reason: 80 unit/kg - Heparin Protocol Heparin Sodium/Sodium Chloride (Heparin Sodium,Porcine/1/2ns) 25,000 unit in 250 mls @ 0 mls/hr IVCONT .Q0M SHELLY; Protocol Home Medications Medication Instructions Recorded Confirmed Last Taken Type blood sugar diagnostic (FreeStyle 12/01/22 06/28/23 Unknown History Lite Strips) blood-glucose meter (FreeStyle 12/01/22 06/28/23 Unknown History Lite Meter kit) atorvastatin 80 mg tablet 80 mg PO BEDTIME 06/20/23 09/11/23 09/11/23 History valsartan 40 mg tablet 40 mg PO BID 06/20/23 09/11/23 09/11/23 History ticagrelor 90 mg tablet (Brilinta) 90 mg PO BID 07/11/23 09/11/23 09/11/23 History sertraline 50 mg tablet 50 mg PO BEDTIME 08/25/23 09/11/23 09/11/23 History empagliflozin 10 mg tablet 10 mg PO DAILY 09/11/23 09/11/23 09/11/23 History (Jardiance) famotidine 40 mg tablet 40 mg PO DAILY PRN heartburn 09/11/23 09/11/23 09/11/23 History melatonin 5 mg tablet 5 mg PO BEDTIME PRN Sleep 09/11/23 09/11/23 Unknown History Physical Exam Vital Signs and Narrative: Vital Signs: Last Vital Signs Pulse 78 09/11/23 14:56 Resp 14 09/11/23 14:56 BP 95/53 L 09/11/23 14:56 Pulse Ox 98 09/11/23 14:56 O2 Del Method Room Air 09/11/23 14:56 BMI result Body Mass Index 32.7 Constitutional - Awake and Alert, No apparent distress Eyes - PERRLA, EOMI Cardiovascular - S1S2, RRR, No edema Respiratory - Normal lung expansion, Normal respiratory effort, No respiratory distress, CTA bilaterally Gastrointestinal - NT / ND; +BS; No rebound or guarding Extremities - no calf tenderness bilaterally, no swelling. Dry gangrene left 1st and 5th toes. No foul odor, erythema, or purulent drainage. see photos Skin - Warm/Dry. see above Neurological - Alert & oriented x3 Results Labs 09/12/23 07:16 09/12/23 07:16 Labs: Laboratory Results - last 24 hr 09/11/23 15:28 MCV 81.3 MCH 26.3 L MCHC 32.3 RDW 15.4 Plt Count 290 D MPV 11.2 Immature Gran % (Auto) 0.5 H Neut % (Auto) 64.1 Lymph % (Auto) 22.4 [place] % (Auto) 7.8 Eos % (Auto) 4.5 H Baso % (Auto) 0.7 Lymph # (Auto) 2.5 [place] # (Auto) 0.9 Eos # (Auto) 0.5 H Baso # (Auto) 0.1 Abs Immat Gran (auto) 0.06 H Absolute Neuts (auto) 7.0 Absolute Nucleated RBC 0.000 Nucleated RBC % (auto) 0.0 PT 10.6 L INR 0.9 aPTT Heparin Protocol 30.7 L Hold Blue Top SEE NOTE Anion Gap 18 Estim Creat Clear Calc 91.5 Estimated GFR > 60 Random Glucose 268 H Calcium 9.8 D Imaging Radiologist's Impressions: Impressions Chest X-Ray 09/11/23 15:18 IMPRESSION: Unremarkable chest examination. Head CT 09/11/23 15:46 IMPRESSION: No acute intracranial pathology. Assessment and Plan (1) Acute non-ST elevation myocardial infarction (NSTEMI): Status: Acute (2) Atrial fibrillation: Status: Acute Plan 58-year-old male with history of uncontrolled insulin-dependent type 2 diabetes, peripheral artery disease s/p right BKA, chronic nonhealing diabetic ulcers of the left toes, GERD, coronary artery disease s/p NSTEMI with SUHAS 02/2023 on DAPT, chronic pancreatitis, hypertension, hyperlipidemia, diabetic polyneuropathy, history of alcohol abuse who is a current 2 cigarette per day smoker admitted for further management of new onset atrial fibrillation with NSTEMI. #New onset atrial fibrillation with RVR- rate controlled on admission -reverted to NSR with IVF -EKG without evidence of ischemic changes -Continue metoprolol for rate control -on heparin drip (see below) -echo ordered -cardiology consult -monitor on tele -cardiac diet #NSTEMI -initial trop 43, repeat 660. Repeat trop am -EKG without acute ischemic changes. pt denies cp -per cardiology initiate heparin drip per protocol -echo ordered -monitor on telemetry #CAD -h/o NSTEMI s/p SUHAS 02/2023. Follows with [facility] -Hold asa, continue brillinta. On heparin drip #Chronic non pressure ulcers of the left toes wtih dry gangrene -2/2 PAD and uncontrolled type 2 diabetes -pain management -no evidence of acute infection -outpt follow up #Uncontrolled type 2 diabetes -hgb a1c 10.2 -dose adjusted basal insulin -poc glucose, diabetic diet -humalog on sliding scale -hold oral antihyperglycemics #HTN -bp soft -continue metoprolol due to above, hold valsartan #Diabetic polyneuropathy -continue gabapentin #Cigarette smoker -smoking cessation strongly advised -nicorette gum for nrt DVT prophylaxis- heparin drip Full code Pt requires inpt stay at least 2 midnights for management of afib rvr and nstemi on heparin drip per protocol and requiring expert consultation Quality Stroke Does the patient have a stroke diagnosis?: No VTE Prior VTE?: No VTE Risk Level:: Medical - moderate - high VTE Device Contraindication: Treatment Not Indicated VTE Drug Contraindication: N/A - Med Ordered
[2023-09-11 18:44] VITALS: BP 107/69; PULSE 69; PULSE 71; RESP 12; O2SAT 97
[2023-09-11] MEDS: Heparin Sodium,Porcine/1/2NS 25,000 UNIT/250 ML IV.SOLN 14.07 UNIT IVCONT (19:14)
[2023-09-11 20:00] VITALS: BP 131/72; PULSE 70; RESP 12; TEMP 36.3; O2SAT 98
--- NOTE | 2023-09-11 20:04 | PHA.MEDREC ---
Pharmacy Consult ? Medication Reconciliation Pharmacy has completed the medication reconciliation. Confirmed medications with patient. Cindy Darden CPhT
[2023-09-11 22:38] LABS: Glucose, Whole Blood 170 mg/dL (60-115)
[2023-09-11 22:46] VITALS: BP 151/73; PULSE 71; RESP 20; TEMP 36.6; O2SAT 99
[2023-09-11] MEDS: 0.9 % Sodium Chloride Flush 3 ML SYRINGE IVFLUSH (23:21)
[2023-09-11] MEDS: Insulin Lispro 100 UNIT/ML 3 ML VIAL SUBCUT (23:21)
[2023-09-12 00:19] VITALS: BMI 33.7
[2023-09-12] MEDS: Insulin Glargine,Hum.rec.anlog 100 UNIT/ML 10 ML VIAL 20 UNIT SUBCUT (00:55)
[2023-09-12] MEDS: Gabapentin 300 MG CAPSULE 600 MG PO (00:56)
[2023-09-12] MEDS: Melatonin 3 MG TABLET 6 MG PO (00:56)
[2023-09-12] MEDS: Acetaminophen 325 MG TABLET 650 MG PO (00:57)
[2023-09-12 01:07] LABS: PTT Heparin Drip 78.7 SEC (53-77.9)
[2023-09-12 03:17] VITALS: BP 128/65; PULSE 70; RESP 20; TEMP 36.1; O2SAT 100
[2023-09-12] MEDS: Morphine Sulfate 2 MG/ML CARTRIDGE IVPUSH ×3 (03:40→12:29)
--- NOTE | 2023-09-12 07:00 | CA_ITS ---
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 The calculated ejection fraction is 48% by biplane method. - The inferolateral wall and mid inferior segment are hypokinetic. - The basal inferior segment is akinetic. - No obvious valvular pathology seen on this study. Findings Procedure Information Contrast agent, definity, is being given per protocol without apparent complications. Left Ventricle Normal left ventricular cavity size. There is moderately increased left ventricular wall thickness. The left ventricular systolic function is mildly decreased. The calculated ejection fraction is 48% by biplane method. There is evidence of regional wall motion abnormalities. Evidence suggests grade I (mild) diastolic dysfunction. Wall Motion Rest Echo Findings The inferolateral wall and mid inferior segment are hypokinetic. The basal inferior segment is akinetic. Right Ventricle Normal right ventricular cavity size. There is mildly decreased right ventricular systolic function. Atria Both atria are normal in size. Aortic Valve There is a normal trileaflet aortic valve. There is no aortic valve stenosis. There is no aortic valve regurgitation. Mitral Valve There is mild mitral annular calcification. There is mild mitral valve regurgitation. There is no mitral valve stenosis. Pulmonic Valve There is trace pulmonic valve regurgitation. Tricuspid Valve There is trace tricuspid valve regurgitation. There is no evidence of pulmonary hypertension. Great Vessels The asc aorta is normal in size. Venous The inferior vena cava was not well visualized. Pericardium/Pleural There is no evidence of pericardial effusion. Prior Study Comparison Changes noted compared to prior study dated: 10/11/2013. Decrease in LVEF; see comment on wall motion. Recommendations, Care & Conclusions No obvious valvular pathology seen on this study. Measurements 2D Linear Measurements IVSd: 1.30 0.6-0.9/0.6-1.0 cm LVIDd: 5.26 3.9-5.3/4.2-5.9 cm LVIDd Index: 2.41 2.4-3.2/2.2-3.1 cm/m2 LVIDs: 3.87 2.0-3.6 cm LVPWd: 1.46 0.7-1.1 cm LA Diam: 4.40 2.7-3.8/3.0-4.0 cm LAIDs Index: 2.02 1.5-2.3 cm/m2 LV Mass: 385.13 67-162/88-224 g LV Mass Index: 176.67 43-95/49-115 g/m2 LVOT Diam: 2.40 3.0+(-)1.3 cm 2D Systolic Function EF 4C: 53.10 >55% EF 2C: 46.20 >55% EF BiP: 47.90 >55% Mitral Valve MV Pk E: 0.78 MV PK A: 0.93 MV Decel Time: 202.00 E/A: 0.80 E'Lateral: 5.77 E'Medial: 4.57 E/E' Med: 17.20 E/E' Lat: 13.60 PHT: 59.00 MVA PHT: 3.73 Decel Norton: 3.89 Aortic Valve AoV Pk Pierre: 1.03 AoV Mn Pierre: 0.78 AoV VTI: 0.25 AoV Pk Grad: 4.00 Aov Mn Grad: 3.00 OREN Cont.VTI: 3.34 LVOT LVOT Pk Pierre: 0.83 LVOT Mn Pierre: 0.59 LVOT VTI: 0.18 LVOT Pk Grad: 3.00 LVOT Mn Grad: 2.00 LVOT Diam: 2.40 LVOT Area: 4.52 Diastolic Function MV Pk E: 0.78 MV Pk A: 0.93 E/A: 0.80 E'Medial: 4.57 E/E' Med: 17.20 E' Laterial: 5.77 E/E' Lat: 13.60 Right Ventricle TAPSE (mm): 23.90 TVS' Pierre: 8.70 Great Vessels Aorta Sinus of Valsalva: 3.60 2.0-3.5 cm Ao Asc: 3.60 2.1-3.4 cm Pulmonary Valve PV Pk Pierre: 0.61 Peak PV Grad: 1.00 Updated in Other Vendor System with Status of Final Daniel Robby MD electronically signed on 09/12/2023 11:08:48 AM with status of Final
[2023-09-12 07:26] LABS: MANUAL DIFF FLAG NO
[2023-09-12 07:42] LABS: Prothrombin Time 11.6 SEC (11.1-13.3)
[2023-09-12 07:44] LABS: PTT Heparin Drip 76.6 SEC (53-77.9)
[2023-09-12 07:47] VITALS: BP 157/76; PULSE 67; RESP 20; TEMP 36.1; O2SAT 99
[2023-09-12 07:55] LABS: Glucose, Whole Blood 133 mg/dL (60-115)
[2023-09-12 07:56] LABS: Anion Gap 13 (12-20); Blood Urea Nitrogen 21 mg/dL (9-16); Calcium 8.8 mg/dL (8.4-10.2); Carbon Dioxide 23 mmol/L (22-29); Chloride 103 mmol/L (96-108); Creatinine Clr Calc Pharmacy 116.4; Estimated Glomerular Filt Rate > 60; Glucose Random 147 mg/dL (60-115); Potassium 3.7 mmol/L (3.3-5.1); Sodium 135 mmol/L (135-145)
[2023-09-12 07:59] LABS: Basophils Absolute Auto 0.1 X10*3/uL (0.0-0.2); Basophils Percent Auto 0.7 % (0-2); Eosinophils Absolute Auto 0.6 X10*3/uL (0.0-0.4); Eosinophils Percent Auto 5.6 % (0-4); Hematocrit 41.1 % (42.0-52.0); Hemoglobin 13.4 g/dl (14.0-18.0); Imm Gran Abs Auto 0.08 X10*3/uL (0.00-0.03); Imm Gran Pct Auto 0.8 % (0.0-0.4); Lymphocytes Absolute Auto 3.6 X10*3/uL (1.2-4.9); Lymphocytes Percent Auto 34.4 % (20-40); Mean Corpuscular HGB Conc 32.6 g/dl (31.0-36.0); Mean Corpuscular Hemoglobin 26.7 pg (27.0-33.0); Mean Platelet Volume 10.4 fL (9.4-12.4); Monocytes Absolute Auto 0.9 X10*3/uL (0.1-1.2); Monocytes Percent Auto 8.8 % (2-11); Neutrophils Absolute Auto 5.2 x10*3/uL (2.0-8.3); Neutrophils Percent Auto 49.7 % (45-73); Platelet Count 205 X10*3/uL (160-400); Red Blood Count 5.01 X10*6/uL (4.60-5.80); Red Cell Distribution Width 15.5 % (11.0-16.0); White Blood Count 10.4 X10*3/uL (4.8-10.8)
[2023-09-12] MEDS: 0.9 % Sodium Chloride Flush 3 ML SYRINGE IVFLUSH ×2 (08:09→15:02)
[2023-09-12 09:21] LABS: Cholesterol 151 mg/dL (<200); HDL Cholesterol 21 mg/dL (>40); Triglycerides 636 mg/dL (<150)
--- NOTE | 2023-09-12 09:27 | PC.NURSE ---
heparin drip maintained, no s/s bleeding, pt educated on safety and potential side effects. He is aware to alert staff to any bleeding or new rash. He denies CP. Pt's primary complaint is neuropathy in left foot/leg. medicated as noted in mar with + effect. plan of care ongoing.
--- NOTE | 2023-09-12 10:04 | P.CONCA_ITS ---
History of Present Illness History of Present Illness Date of Service: 09/12/23 Chief complaint: lightheadedness, new onset afib Narrative: This is a cardiology consultation regarding non ST-elevation myocardial infarction as well as atrial fibrillation. Patient with many comorbidities including diabetes, peripheral vascular disease including right BKA, chronic nonhealing ulcers in the left toes, CAD/NSTEMI the past, many comorbidities who came from the wound clinic because of right side ear pain, headache, bilateral shoulder pain. He also had some palpitations. In that setting, it seems that he was diagnosed to have atrial fibrillation rapid rate. Then he converted out of that rhythm to normal sinus rhythm. In this setting, troponins were checked and they were high and hence we are consulted. Patient denies any clear-cut chest pain but he definitely had a discomfort in the right side of the head and shoulder pain and not clear if these are all anginal equivalents. Review of Systems 2 Review of Systems: Yes all other systems are reviewed and are negative Constitutional: Constitutional: Reports as per HPI and Reports no additional constitutional complaints Eyes: Eyes: Reports as per HPI and Denies no additional eye complaints ENT: Denies system reviewed and no additional complaints, except as documented and Reports as per HPI Cardiovascular: Cardiovascular: Reports as per HPI, Reports no additional cardiovascular complaints, Denies acrocyanosis, Denies cool extremities, Denies chest pain, Denies leg edema, Denies lightheadedness, Denies palpitations and Denies dyspnea Respiratory: Respiratory: Reports as per HPI, Denies no additional respiratory complaints and Denies dyspnea Gastrointestinal: Gastrointestinal: Reports as per HPI and Denies no additional gastrointestinal complaints Genitourinary: Genitourinary: Reports no additional male genitourinary complaints and Reports as per HPI Musculoskeletal: Musculoskeletal: Reports no additional musculoskeletal complaints and Reports as per HPI Integumentary/Breasts: Skin/Breast: Reports system reviewed and no additional complaints, except as docu Neurologic: Reports system reviewed and no additional complaints, except as documented and Reports as per HPI Psychiatric: Psychiatric: Reports no additional psychiatric complaints and Reports as per HPI Endocrine: Endocrine: Reports no additional endocrine complaints, Reports as per HPI and Denies palpitations Hematologic/Lymphatic: Hematologic/Lymphatic: Reports no additional hematologic/lymphatic complaints and Reports as per HPI Allergic/Immunologic: Allergic/Immunologic: Reports no additional allergic/immunologic complaints and Reports as per HPI [facility] Past Medical History Medical History 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 Diabetes mellitus with retinopathy, with long-term current use of insulin PAD (peripheral artery disease) Heartburn symptom Amputation stump infection Major depression, recurrent Erectile dysfunction Dyslipidemia Diabetes mellitus, with long-term current use of insulin Amputation stump complication Intractable left heel pain Chronic 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 Type 2 diabetes mellitus with diabetic polyneuropathy Type 2 diabetes mellitus with hyperglycemia Hyperlipidemia Chronic pancreatitis Essential hypertension Diabetes mellitus with hyperglycemia, with long-term current use of insulin Neuropathy Kidney calculus Failure of outpatient treatment Increased BMI Alcohol abuse CAD (coronary artery disease) Arthritis Family History Family History Mother [place] (myocardial infarction), Onset Age: 64 Diabetes mellitus HTN (hypertension) Maternal Grandmother Diabetes mellitus Surgical History Surgical History S/P angiogram of extremity (06/28/23) History of right below knee amputation Status post below-knee amputation S/P debridement Hx of lithotripsy Status post laparoscopic cholecystectomy Hx of heart artery stent Social History Social History Household Members: Spouse and Children Household Members Other:: and daughter Housing: House Do you presently have visiting nurse or other home services: Yes (wound care nurse 3 days a week) Alcohol intake: never Comment: pt ambulates with crutches. Patient Tobacco Use Status: Current everyday Tobacco user Tobacco use type: Cigarette Cigarette Packs Per Day: 0.01 Cigarettes Per Day: 3 Years Smoked: 28 Smoked in Last 30 Days: Yes e-Cigarette/Vaping Use: Never Used Patient Interested in Nicotine Replacement: Yes Patient Given Instructions on How to Stop Smoking: Yes Date Education Initiated: 09/11/23 Second Hand Smoke Exposure: No Use of substances other than those prescribed or required for medical reasons: Yes Substance Use Type: Marijuana Currently Displaying Signs/Symptoms of Drug Intoxication Withdrawal: No Any prior treatment program specific to substance use: No Have you been hit, kicked, punched, or otherwise hurt by someone within the past year? If so, by whom?: No Do you feel safe in your current relationship?: Yes Is there a partner from a previous relationship who is making you feel unsafe now?: No Are you made to feel afraid or neglected: No Advance Directives: No Advance Directives Information Provided: No Advance Directives Date on File: 04/17/21 Do you have thoughts of harming others: None Do you have a plan to hurt others: No Plan Recently lost weight without trying: Yes Nutrition Risks: Diabetes new onset/Uncontrolled Poor oral hygiene: No service: No Current occupational status: unemployed and disabled Cognitive needs: No Hearing needs: No Vision needs: Yes Meds Allergies Allergy/AdvReac Type Severity Reaction Status Date / Time No Known Allergies Allergy Verified 08/25/23 09:14 [No Known Allergies*] Active Medications: Current Medications Acetaminophen (Acetaminophen 325 Mg Tablet) 650 mg PO Q6H PRN PRN Reason: Pain, Mild (Pain Scale 1-3) Last Admin: 09/12/23 00:57 Dose: 650 mg Aspirin (Aspirin 81 Mg Tab.Chew) 81 mg PO DAILY SHELLY Atorvastatin Calcium (Atorvastatin Calcium 80 Mg Tablet) 80 mg PO BEDTIME SHELLY Dextrose (Dextrose 50 % 25 Gm/50 Ml Syringe) 25 gm IVPUSH Q15M PRN; Protocol PRN Reason: per Hypoglycemia Standing Ord. Empagliflozin (Empagliflozin 10 Mg Tablet) 10 mg PO DAILY SHELLY Famotidine (Famotidine 20 Mg Tablet) 40 mg PO DAILY PRN PRN Reason: heartburn Gabapentin (Gabapentin 600 Mg Tablet) 600 mg PO TID SHELLY Glucose (Glucose Gel 15 Gm Gel..Gram.) 15 gm PO Q15M PRN; Protocol PRN Reason: per Hypoglycemia Standing Ord. Heparin Sodium (Porcine) (Heparin Sodium,Porcine 5,000 Unit/Ml Vial) 4,000 unit 40 unit/kg (4000 unit) IVPUSH PROTOCOL BOLUS PRN; Protocol PRN Reason: 40 unit/kg - Heparin Protocol Heparin Sodium (Porcine) (Heparin Sodium,Porcine 5,000 Unit/Ml Vial) 8,000 unit 80 unit/kg (8000 unit) IVPUSH PROTOCOL BOLUS PRN; Protocol PRN Reason: 80 unit/kg - Heparin Protocol Heparin Sodium/Sodium Chloride (Heparin Sodium,Porcine/1/2ns) 25,000 unit in 250 mls @ 0 mls/hr IVCONT .Q0M SHELLY; Protocol Last Titration: 09/12/23 01:33 Dose: 12 units/kg/hr, 12.06 mls/hr Insulin Human Lispro (Insulin Lispro 100 Unit/Ml 3 Ml Vial) 0 unit SUBCUT QIDACHS [facility]; Protocol Last Admin: 09/12/23 08:01 Dose: Not Given Melatonin (Melatonin 3 Mg Tablet) 6 mg PO BEDTIME PRN PRN Reason: Insomnia Last Admin: 09/12/23 00:56 Dose: 6 mg Metoprolol Succinate (Metoprolol Succinate Er 50 Mg Tab.Er.24h) 50 mg PO DAILY [facility]; Protocol Morphine Sulfate (Morphine Sulfate 2 Mg/Ml Cartridge) 2 mg IVPUSH Q4H PRN; Protocol PRN Reason: Pain, Severe (Pain Scale 7-10) Last Admin: 09/12/23 08:09 Dose: 2 mg Nicotine Polacrilex (Nicotine Polacrilex 2 Mg Gum) 2 mg BUCCAL Q2H PRN PRN Reason: Nicotine Cravings Omeprazole (Omeprazole 40 Mg Capsule.Dr) 40 mg PO DAILY@0630 [facility] Ondansetron HCl (Ondansetron Hcl 4 Mg/2 Ml Vial) 4 mg IVPUSH Q8H PRN PRN Reason: Nausea and Vomiting Senna (Sennosides 8.6 Mg Tablet) 17.2 mg PO BEDTIME PRN PRN Reason: Constipation Sertraline HCl (Sertraline Hcl 50 Mg Tablet) 50 mg PO BEDTIME [facility] Sodium Chloride (0.9 % Sodium Chloride Flush 3 Ml Syringe) [facility] Last Admin: 09/12/23 08:09 Dose: 3 ml Ticagrelor (Ticagrelor 90 Mg Tablet) 90 mg PO BID [facility] Valsartan (Valsartan 40 Mg Tablet) 40 mg PO BID [facility]; Protocol Home Medications Medication Instructions Recorded Confirmed Last Taken Type blood sugar diagnostic (FreeStyle 12/01/22 06/28/23 Unknown History Lite Strips) blood-glucose meter (FreeStyle 12/01/22 06/28/23 Unknown History Lite Meter kit) atorvastatin 80 mg tablet 80 mg PO BEDTIME 06/20/23 09/11/23 09/11/23 History valsartan 40 mg tablet 40 mg PO BID 06/20/23 09/11/23 09/11/23 History insulin lispro 100 unit/mL 17 unit subcut TIDAC 07/11/23 09/11/23 09/11/23 History subcutaneous pen ticagrelor 90 mg tablet (Brilinta) 90 mg PO BID 07/11/23 09/11/23 09/11/23 History sertraline 50 mg tablet 50 mg PO BEDTIME 08/25/23 09/11/23 09/11/23 History empagliflozin 10 mg tablet 10 mg PO DAILY 09/11/23 09/11/23 09/11/23 History (Jardiance) famotidine 40 mg tablet 40 mg PO DAILY PRN heartburn 09/11/23 09/11/23 09/11/23 History ibuprofen 200 mg capsule 400 mg PO Q6H PRN Pain 09/11/23 09/11/23 09/11/23 History melatonin 5 mg tablet 5 mg PO BEDTIME PRN Sleep 09/11/23 09/11/23 Unknown History Physical Exam 2 Vital Signs: Vital Signs: Last Vital Signs Temp 97.0 F 09/12/23 07:47 Pulse 67 09/12/23 07:47 Resp 20 09/12/23 07:47 BP 157/76 H 09/12/23 07:47 Pulse Ox 99 09/12/23 07:47 O2 Del Method Room Air 09/12/23 07:47 BMI result Body Mass Index 33.7 Const: General: comfortable and no acute distress O rientation/consciousness: patient oriented x3 HEENT: Other: Unremarkable Head: Yes normal to inspection Neck: Neck: Yes normal visual inspection Chest: Chest palpation & inspection: normal inspection of the chest Resp: Auscultation: clear to auscultation bilaterally Cardio: Palpation: normal PMI Heart sounds: S1 normal heart sound present, S2 normal heart sound present, no gallops, no murmurs and no rubs GI: Palpation (GI): Soft to palpation Back/Spine/Pelvis: Other: unremarkable Skin: General skin exam: no rashes or lesions noted Neuro: General: patient oriented x3 Extrem: General: Yes normal to inspection Psych: Mental Status: mental status grossly normal Objective Labs and Meds 09/12/23 07:16 09/12/23 07:16 Lab results: Laboratory Results - last 24 hr 09/11/23 09/11/23 09/11/23 15:28 17:14 22:31 WBC 11.0 H RBC 6.05 H D Hgb 15.9 Hct 49.2 MCV 81.3 MCH 26.3 L MCHC 32.3 RDW 15.4 Plt Count 290 D MPV 11.2 Immature Gran % (Auto) 0.5 H Neut % (Auto) 64.1 Lymph % (Auto) 22.4 [place] % (Auto) 7.8 Eos % (Auto) 4.5 H Baso % (Auto) 0.7 Lymph # (Auto) 2.5 [place] # (Auto) 0.9 Eos # (Auto) 0.5 H Baso # (Auto) 0.1 Abs Immat Gran (auto) 0.06 H Absolute Neuts (auto) 7.0 Absolute Nucleated RBC 0.000 Nucleated RBC % (auto) 0.0 PT 10.6 L INR 0.9 aPTT Heparin Protocol 30.7 L Hold Blue Top SEE NOTE Sodium 139 Potassium 4.7 Chloride 103 Carbon Dioxide 23 Anion Gap 18 BUN 21 H Creatinine 1.04 Estim Creat Clear Calc 91.5 Estimated GFR > 60 POC Glucose 170 H Random Glucose 268 H Calcium 9.8 D Troponin I High Sens 43.3 H D 660.8 H* D Triglycerides Cholesterol LDL Cholesterol, Calc HDL Cholesterol 09/12/23 09/12/23 09/12/23 00:49 07:16 07:50 WBC 10.4 RBC 5.01 Hgb 13.4 L Hct 41.1 L MCV 82.0 MCH 26.7 L MCHC 32.6 RDW 15.5 Plt Count 205 D MPV 10.4 Immature Gran % (Auto) 0.8 H Neut % (Auto) 49.7 Lymph % (Auto) 34.4 [place] % (Auto) 8.8 Eos % (Auto) 5.6 H Baso % (Auto) 0.7 Lymph # (Auto) 3.6 [place] # (Auto) 0.9 Eos # (Auto) 0.6 H Baso # (Auto) 0.1 Abs Immat Gran (auto) 0.08 H Absolute Neuts (auto) 5.2 Absolute Nucleated RBC 0.000 Nucleated RBC % (auto) 0.0 PT 11.6 INR 1.0 aPTT Heparin Protocol 78.7 H D 76.6 Hold Blue Top Sodium 135 Potassium 3.7 D Chloride 103 Carbon Dioxide 23 Anion Gap 13 BUN 21 H Creatinine 0.83 Estim Creat Clear Calc 116.4 Estimated GFR > 60 POC Glucose 133 H Random Glucose 147 H Calcium 8.8 D Troponin I High Sens 2597.0 H* D Triglycerides 636 H Cholesterol 151 LDL Cholesterol, Calc TNP HDL Cholesterol 21 L ECG Interpretation: Initial EKG reviewed. The atrial rate is about 150/Min and the ventricular rate is 115/Min. There is right bundle-branch block. Overall, suspect atrial tachycardia with variable block. Less likely atrial fibrillation. Imaging Radiologist's impression: Impressions Chest X-Ray 09/11/23 15:18 IMPRESSION: Unremarkable chest examination. Head CT 09/11/23 15:46 IMPRESSION: No acute intracranial pathology. Assessment and Plan (1) Acute non-ST elevation myocardial infarction (NSTEMI): Status: Acute Cardiac catheterization data reviewed from 2022. Left main with distal 50% stenosis. Proximal LAD with 60% stenosis and diagonal with ostial 70% stenosis. Proximal circumflex with 95% stenosis. Mid RCA with 40% stenosis. Currently, troponin elevation is clearly suggestive of non ST elevation myocardial infarction. Recommend diagnostic catheterization for further assessment. He is willing. Continue heparin drip. He is also on aspirin and Brilinta. Continue beta- blockers, statins. (2) Atrial arrhythmia: Status: Acute Initial EKG thought to be atrial fibrillation but upon my review could be rather atrial tachycardia based on atrial rates. Less likely atrial fibrillation but can not rule out. Any case, he seems to back in sinus rhythm. He definitely does have a lot of risk factors for developing atrial fibrillation. Probably needs outpatient monitoring for further assessment. Procedures Date of Service Date of Service: 09/12/23
--- NOTE | 2023-09-12 10:38 | P.DS_ITS ---
DS: Providers Provider Date of Service: 09/12/23 Date of admission: 09/11/23 18:40 Primary care physician: Shanta Haney MD Consults: 09/11/23 18:39 Consult to Cardiology Routine Consulting Provider: [facility] Reason for consultation: new onset afib, elevated trops Has provider been notified: Yes 09/12/23 09:24 Consult to Wound Care Routine Reason for consultation: diabetic/vascular wounds to L foot/lan DS: Diagnosis Discharge Diagnosis (1) Acute non-ST elevation myocardial infarction (NSTEMI): Status: Acute (2) Atrial arrhythmia: Status: Acute DS: Summary Hospital Course Hospital Course: Date of Service: 09/11/23 Attending physician on admission: Steve Toribio Chief Complaint: lightheadness, headache 58-year-old male with history of uncontrolled insulin-dependent type 2 diabetes, peripheral artery disease s/p right BKA, 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 The patient also states that he was short of breath and lightheaded but denies any chest pains. Denies any sick contacts. No fevers or chills. Denies any palpitations. He states he is still slightly lightheaded and feels weak. He follows with Dr. Sheppard outevangelist and will likely need amputation of R 5th toe, has arterial studies scheduled on 09/19. On arrival, VSS, though bp soft at 95/53. There is a mild leukocytosis 11.0, RBC 6.05, H/H 15.9/49.2, likely hemoconcentrated. Renal function baseline, lytes normal. Glucose 268. Initial trop 43.3, repeat 660. Initial EKG showed atrial fibrillation with RVR, rate 115, right bundle branch block, no other ST/T-wave abnormality. He was given 1 L IV NS and converted out of atrial fibrillation to NSR, rate 72. He denies any known history of atrial fibrillation. Head CT was without any acute intracranial abnormality. Chest x-ray negative for any acute cardiopulmonary abnormality. In addition to IV fluids, he also received 2 mg IV morphine. Case was discussed with Cardiology and patient will be started on heparin drip per protocol and admitted for further evaluation. 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 #NSTEMI presented with headache, bilateral shoulder pain and right-sided neck discomfort, no chest pain, question angina equivalent, admitted to telemetry unit, treated with IV heparin, aspirin, Brilinta continued on beta blockers and Lipitor, initial EKG thought to be atrial fibrillation but upon ceramic products sales engineer review it looks rather atrial tachycardia based on atrial rate but atrial fibrillation can not be ruled out, patient now in normal sinus rhythm,initial trop 43, repeat 660 and this am 2597, due to multiple coronary artery disease risk factors and prior history of non ST elevation MA on dual antiplatelet agent patient is being transferred to [facility] for cardiac catheterization, echo obtain report pending will discharge patient on IV heparin aspirin and Brilinta, patient remains hemodynamically stable, strongly recommend to abstain from smoking, recommend Nicorette gum. # Chronic non pressure ulcers of the left toes wtih dry gangrene,2/2 PAD and uncontrolled type 2 diabetes, no evidence of acute infection recommend outpatient follow-up with vascular surgeon Dr. Sheppard and [facility], pain management. #Uncontrolled type 2 diabetes with diabetic neuropathy: -hgb a1c 10.2, continue diabetic diet, Jardiance, Lantus and insulin sliding scale, continue gabapentin for neuropathy. #HTN, initially noted to have soft blood pressure, now stable blood pressure, continue home medications metoprolol and valsartan. Time Attestation Discharge coordination time: Greater than 30 minutes Quality: Safe Use of Opioids Does Pt have an Active Cancer Diagnosis on the Problem List?: No Quality: Stroke Does the patient have a stroke diagnosis?: No Physical Exam Vital Signs: Vital Signs: Last Vital Signs Temp 97.0 F 09/12/23 07:47 Pulse 67 09/12/23 07:47 Resp 20 09/12/23 07:47 BP 157/76 H 09/12/23 07:47 Pulse Ox 99 09/12/23 07:47 O2 Del Method Room Air 09/12/23 07:47 BMI result Body Mass Index 33.7 Const: Other: General awake alert x 3, no acute distress.? Neck no JVD. CVS? regular rate rhythm, Respiratory lungs clear to auscultation, no respiratory distress, no wheeze, no rhonchi. Gastrointestinal abdomen soft, nontender bowel sounds audible, no guarding , no rigidity. Extremities right BKA, left small toe dry gangrene, left big toe wound, no drainage, no fluctuation Neuro nonfocal Psych appropriate affect DS: Data Data Completed and Pending Completed studies during hospitalization [Text1]: Procedures Detachment at Right 1st Toe, Complete, Open Approach (08/18/21) Detachment at Right Lower Leg, High, Open Approach (08/18/21) Dilation of Right Ureter with Intraluminal Device, Via Natural or Artificial Opening Endoscopic (06/21/20) Excision of Right Tarsal, Open Approach (08/18/21) Extirpation of Matter from Right Ureter, Via Natural or Artificial Opening Endoscopic (06/21/20) Fluoroscopy of Right Kidney, Ureter and Bladder (06/21/20) Insertion of Infusion Device into Superior Vena Cava, Percutaneous Approach (08/18/21) Labs on day of discharge: Laboratory Results - last 24 hr 09/11/23 09/11/23 09/11/23 15:28 17:14 22:31 WBC 11.0 H RBC 6.05 H D Hgb 15.9 Hct 49.2 MCV 81.3 MCH 26.3 L MCHC 32.3 RDW 15.4 Plt Count 290 D MPV 11.2 Immature Gran % (Auto) 0.5 H Neut % (Auto) 64.1 Lymph % (Auto) 22.4 Jerome % (Auto) 7.8 Eos % (Auto) 4.5 H Baso % (Auto) 0.7 Lymph # (Auto) 2.5 Jerome # (Auto) 0.9 Eos # (Auto) 0.5 H Baso # (Auto) 0.1 Abs Immat Gran (auto) 0.06 H Absolute Neuts (auto) 7.0 Absolute Nucleated RBC 0.000 Nucleated RBC % (auto) 0.0 PT 10.6 L INR 0.9 aPTT Heparin Protocol 30.7 L Hold Blue Top SEE NOTE Sodium 139 Potassium 4.7 Chloride 103 Carbon Dioxide 23 Anion Gap 18 BUN 21 H Creatinine 1.04 Estim Creat Clear Calc 91.5 Estimated GFR > 60 POC Glucose 170 H Random Glucose 268 H Calcium 9.8 D Troponin I High Sens 43.3 H D 660.8 H* D Triglycerides Cholesterol LDL Cholesterol, Calc HDL Cholesterol 09/12/23 09/12/23 09/12/23 00:49 07:16 07:50 WBC 10.4 RBC 5.01 Hgb 13.4 L Hct 41.1 L MCV 82.0 MCH 26.7 L MCHC 32.6 RDW 15.5 Plt Count 205 D MPV 10.4 Immature Gran % (Auto) 0.8 H Neut % (Auto) 49.7 Lymph % (Auto) 34.4 Jerome % (Auto) 8.8 Eos % (Auto) 5.6 H Baso % (Auto) 0.7 Lymph # (Auto) 3.6 Jerome # (Auto) 0.9 Eos # (Auto) 0.6 H Baso # (Auto) 0.1 Abs Immat Gran (auto) 0.08 H Absolute Neuts (auto) 5.2 Absolute Nucleated RBC 0.000 Nucleated RBC % (auto) 0.0 PT 11.6 INR 1.0 aPTT Heparin Protocol 78.7 H D 76.6 Hold Blue Top Sodium 135 Potassium 3.7 D Chloride 103 Carbon Dioxide 23 Anion Gap 13 BUN 21 H Creatinine 0.83 Estim Creat Clear Calc 116.4 Estimated GFR > 60 POC Glucose 133 H Random Glucose 147 H Calcium 8.8 D Troponin I High Sens 2597.0 H* D Triglycerides 636 H Cholesterol 151 LDL Cholesterol, Calc TNP HDL Cholesterol 21 L Discharge Plan Discharge Anticipated Discharge Date/Time: 09/12/23 10:26 Patient Disposition: Xfer Acute Care Hospital Discharge Diagnosis: Non ST-elevation MA Referrals: Shanta Haney MD [Primary Care Provider] - 1 Week Discharge Medications: New nicotine (polacrilex) 2 mg Gum 2 mg buccal Q2H PRN (Reason: Nicotine Cravings) Qty: 20 0RF heparin(porcine) in 0.45% NaCl 25,000 unit/250 mL Parenteral Solution 25,000 unit continuous IV infusion .Q0M Qty: 1 0RF oxycodone 5 mg tablet 5 mg PO Q4H PRN (Reason: pain (scale score 7-10)) Qty: 10 0RF Rx Instructions: Partial Fill upon patient request. insulin lispro [Admelog U-100 Insulin lispro] 100 unit/mL Solution See Protocol subcut QIDACHS Qty: 10 0RF Protocol: Insulin Correction Scale Less than or equal to 110 ---- Give (units): 0 111 to 150 Give (units): 0 151 to 200 Give (units): 2 201 to 250 Give (units): 4 251 to 300 Give (units): 6 301 to 350 Give (units): 8 Greater than 350 Give (units): 10 Call MD if Blood Glucose > : 350 Continued (DME) Bedside commode See Rx Instructions .Route .MEDSUPPLY Qty: 1 0RF Rx Instructions: As directed (DME) walker with wheels See Rx Instructions .Route .MEDSUPPLY Qty: 1 0RF Rx Instructions: As directed (DME) pen needle, diabetic [BD Ultra-Fine Short Pen Needle] 31 gauge x 5/16 needle See Rx Instructions .ROUTE .COMPLEX Qty: 100 5RF Dose Instruction: USE MARÍA LO INDICADO BENNETT VECES AL LIZZIE ANTES DE LAS COMIDAS Rx Instructions: USE MARÍA LO INDICADO BENNETT VECES AL LIZZIE ANTES DE LAS COMIDAS (DME) recliner See Rx Instructions .Route .MEDSUPPLY Qty: 1 0RF Rx Instructions: As directed (DME) FreeStyle Frank 2 Sensor Kit See Rx Instructions .Route Qty: 2 8RF Rx Instructions: As directed change every 14 days aspirin 81 mg tablet,chewable 81 mg PO DAILY Qty: 90 1RF omeprazole 40 mg capsule,delayed release(DR/EC) 40 mg PO DAILY Qty: 30 2RF metoprolol succinate 50 mg tablet extended release 24 hr 50 mg PO DAILY Qty: 90 1RF Brilinta 90 mg tablet 90 mg PO BID Jardiance 10 mg tablet 10 mg PO DAILY famotidine 40 mg tablet 40 mg PO DAILY PRN (Reason: heartburn) melatonin 5 mg Tablet 5 mg PO BEDTIME PRN (Reason: Sleep) sertraline 50 mg tablet 50 mg PO BEDTIME gabapentin 600 mg tablet 600 mg PO TID Qty: 90 4RF (DME) blood-glucose meter [FreeStyle Lite Meter] Kit See Rx Instructions .Route Rx Instructions: As directed (DME) FreeStyle Lite Strips Strip See Rx Instructions .Route Rx Instructions: As directed valsartan 40 mg tablet 40 mg PO BID atorvastatin 80 mg tablet 80 mg PO BEDTIME Changed insulin glargine [Lantus Solostar U-100 Insulin] 100 unit/mL (3 mL) insulin pen 20 unit subcut BEDTIME Qty: 15 6RF Discontinued insulin lispro 100 unit/mL insulin pen 17 unit subcut TIDAC Protocol: Insulin Correction Scale Less than or equal to 110 ---- Give (units): 0 111 to 150 Give (units): 0 151 to 200 Give (units): 2 201 to 250 Give (units): 4 251 to 300 Give (units): 6 301 to 350 Give (units): 8 Greater than 350 Give (units): 10 Call MD if Blood Glucose > : 350 ibuprofen 200 mg Capsule 400 mg PO Q6H PRN (Reason: Pain) tramadol 50 mg tablet 50 mg PO DAILY PRN (Reason: pain) Qty: 14 0RF Farxiga 10 mg tablet 10 mg PO QAM Qty: 30 5RF No Action (DME) FreeStyle Frank 2 [place] Misc See Rx Instructions .Route Qty: 1 0RF Rx Instructions: As directed Discharge Orders: Discharge Order (Routine); Ordered 09/12/23 Ordered By: Steve Toribio Diet: Diabetic diet Activity on Discharge: bed rest Stand Alone Forms: Patient Portal Discharge page Care Plan Goals: nstemi continue IV heparin, aspirin, Brilinta, statins and beta-blockers transferred to [facility] for cardiac catheterization Health Concerns: Diabetes mellitus/hyperlipidemia/peripheral arterial disease, chronic nonhealing diabetic ulcers of left toes Plan of Treatment: Outpatient follow-up with primary care physician, vascular surgery and Wound Clinic Assessment: As above
[2023-09-12] MEDS: Aspirin 81 MG TAB.CHEW PO (11:09)
[2023-09-12] MEDS: Ticagrelor 90 MG TABLET PO (11:10)
[2023-09-12] MEDS: Valsartan 40 MG TABLET PO (11:10)
[2023-09-12] MEDS: Empagliflozin 10 MG TABLET PO (11:10)
[2023-09-12] MEDS: Metoprolol Succinate ER 50 MG TAB.ER.24H PO (11:10)
[2023-09-12] MEDS: Omeprazole 40 MG CAPSULE.DR PO (11:10)
[2023-09-12] MEDS: Gabapentin 600 MG TABLET PO ×2 (11:10→14:51)
[2023-09-12 11:41] VITALS: BP 143/73; PULSE 73; RESP 20; TEMP 36.3; O2SAT 99
[2023-09-12 11:49] LABS: Glucose, Whole Blood 168 mg/dL (60-115)
[2023-09-12] MEDS: Insulin Lispro 100 UNIT/ML 3 ML VIAL SUBCUT (12:29)
--- NOTE | 2023-09-12 13:26 | MHC.CM.PN ---
EMR REVIEWED, CM ADMITTED W/LIGHTHEADEDNESS AND NEW ONSET AFIB PER HOSPITALIST/CARDIO PLAN FOR PT TO TRANSFER TO [facility] ONCE BED AVAILABLE. PT REPORTS HE LIVES W/HIS , SON AND STEPSON, PT IS USES A CANE OR WALKER W/HIS PROSTHETIC AND ALSO HAS CRUTCHES AND A WC, PT VERIFIES PCP IS ARYA SANCHES AND PT REPORTS HIS HCP IS THOMAS GARRISON, NUMBER ON FILE.
[2023-09-12 14:33] LABS: INTERNATIONAL NORM RATIO 0.9 (0.9-1.1); Prothrombin Time 11.4 SEC (11.1-13.3)
[2023-09-12 14:35] LABS: PTT Heparin Drip 74.1 SEC (53-77.9)
[2023-09-12] MEDS: Heparin Sodium,Porcine/1/2NS 25,000 UNIT/250 ML IV.SOLN 12.06 UNIT IVCONT (14:52)
[2023-09-12] MEDS: oxyCODONE HCl Immed Release 5 MG TABLET PO (15:02)
[2023-09-12 16:00] VITALS: BP 136/71; PULSE 70; RESP 20; TEMP 36.1; O2SAT 98
[2023-09-12 16:23] LABS: Glucose, Whole Blood 135 mg/dL (60-115)
--- NOTE | 2023-09-12 18:10 | PC.NURSE ---
Report given to freight engineer team and report called to [facility] nurse Hero at [facility] [place] [phone], pt to [facility] [place] Card[place]. procedure.
== END 2023-09-12 17:45 | disposition short-term general hospital (02) | DRG 281 ==
LOC: HO.ED 18:21 → HO.EDOVER 18:47 → HO.IMC 19:49
PROVIDERS: Student in an Organized Health Care Education/Training Program; Admitting Provider Physician Assistant; Emergency Provider Student in an Organized Health Care Education/Training Program; PCP Internal Medicine; Visit Provider Hospitalist
DX: I21.4 Non-ST elevation (NSTEMI) myocardial infarction (principal); E11.52 Type 2 diabetes mellitus with diabetic peripheral angiopathy with gangrene; I47.19 Other supraventricular tachycardia; I70.262 Atherosclerosis of native arteries of extremities with gangrene, left leg; L97.529 Non-pressure chronic ulcer of other part of left foot with unspecified severity; I25.10 Atherosclerotic heart disease of native coronary artery without angina pectoris; I10 Essential (primary) hypertension; E11.42 Type 2 diabetes mellitus with diabetic polyneuropathy; F17.210 Nicotine dependence, cigarettes, uncomplicated; Z71.6 Tobacco abuse counseling; Z89.511 Acquired absence of right leg below knee; Z95.5 Presence of coronary angioplasty implant and graft; Z79.4 Long term (current) use of insulin; Z79.899 Other long term (current) drug therapy
CPT/HCPCS: 36415; 70450; 71046; 80048; 80061; 82947; 84484; 85025; 85610; 85730; 93005; 93306; 99285; J1644; J2270; Q9957

== ENCOUNTER → 2023-09-11 14:42 | Outpatient (BNV) | payer OTHER, SELFPAY | PROVIDERS: Emergency Provider Student in an Organized Health Care Education/Training Program; Visit Provider Internal Medicine | DX: R07.9 Chest pain, unspecified (principal); R00.0 Tachycardia, unspecified | CPT/HCPCS: 93010 ==

== ENCOUNTER 2023-09-11 18:40 | Outpatient (BNV) | payer MEDICARE, SELFPAY | END 2023-09-12 07:00 | PROVIDERS: Admitting Provider Physician Assistant; Emergency Provider Student in an Organized Health Care Education/Training Program; PCP Internal Medicine; Visit Provider Internal Medicine | DX: I21.4 Non-ST elevation (NSTEMI) myocardial infarction (principal); I48.91 Unspecified atrial fibrillation | CPT/HCPCS: 93306 ==

== ENCOUNTER → 2023-09-11 18:40 | Outpatient (BNV) | payer MEDICARE, SELFPAY | PROVIDERS: Admitting Provider Physician Assistant; Emergency Provider Student in an Organized Health Care Education/Training Program; PCP Internal Medicine; Visit Provider Internal Medicine | DX: I21.4 Non-ST elevation (NSTEMI) myocardial infarction (principal); I49.8 Other specified cardiac arrhythmias | CPT/HCPCS: 99223 ==

== ENCOUNTER → 2023-09-11 18:40 | Outpatient (BNV) | payer MEDICARE, SELFPAY | PROVIDERS: Admitting Provider Physician Assistant; Emergency Provider Student in an Organized Health Care Education/Training Program; PCP Internal Medicine; Visit Provider Hospitalist | DX: I21.4 Non-ST elevation (NSTEMI) myocardial infarction (principal); I48.91 Unspecified atrial fibrillation; I49.8 Other specified cardiac arrhythmias | CPT/HCPCS: 99223; 99239 ==

== ENCOUNTER 2023-10-18 12:50 | Inpatient (IN) | payer MEDICARE, SELFPAY ==
--- NOTE | ~2023-10-18 | CT_ITS ---
STUDY PERFORMED: CTA ABDOMEN, PELVIS AND LOWER EXTREMITY RUNOFF WITH CONTRAST HISTORY: Discoloration of left first and fifth toes with severe pain DESCRIPTION: Routine abdominal aorta and lower extremity runoff CTA protocol with contrast was performed. 100 mL of Omnipaque 350 was administered. 3D POSTPROCESSING: Multiple 3-D angiographic images were processed from the initial data set by the [facility] under concurrent physician supervision. This CT examination was performed using dose optimization techniques as appropriate, variously including the following: *Automated exposure control *Adjustment of mA and/or kV according to patient size (this includes techniques or standardized protocols for targeted exams where dose is matched to indication/reason for exam; i.e. extremities or head) *Use of iterative reconstruction technique DLP: 408 mGycm. COMPARISON: CT abdomen pelvis 02/14/2023 FINDINGS: VASCULAR: ABDOMINAL AORTA: Calcific atherosclerotic plaque present in the aorta without evidence of stenosis, aneurysm or dissection.. RIGHT LOWER EXTREMITY: - Common Iliac Artery: Atherosclerotic plaque without significant stenosis. - Internal Iliac Artery: Calcific atherosclerotic plaque but widely patent. - External Iliac Artery: Free of significant disease. - Common Femoral Artery: Minimal plaque without stenosis. - Profunda Femoral Artery: Question of a embolus in the right profunda femoris.. - Superficial Femoral Artery: Patent with stenosis. Distally. - Popliteal Artery: Patent. There is below the knee amputation. LEFT LOWER EXTREMITY: - Common Iliac Artery: Mild disease with calcification proximally without significant stenosis. - Internal Iliac Artery: Calcific atherosclerotic plaque but patent. - External Iliac Artery: Minimal disease and widely patent. - Common Femoral Artery: Mild posterior plaque producing minimal nonhemodynamically significant stenosis. - Profunda Femoral Artery: Filling defect in proximal profunda femoris suggests an embolus.. - Superficial Femoral Artery: Severe calcific and noncalcific atherosclerotic change present throughout the SFA. There is at least one area of significant stenosis seen (7:1010).. - Popliteal Artery: Marked disease is present in the popliteal with significant stenoses and areas of possible filling defect and emboli (for example 7:1333). - Tibioperoneal Trunk: Mild stenosis proximally. - Posterior Tibial Artery: Widely patent continuing as the deep arch. - Peroneal Artery: Widely patent. - Anterior Tibial Artery: Widely patent into the dorsalis pedis. CELIOMESENTERIC ARTERIES: Mild calcific plaque the origin of the celiac without significant stenosis. SMA widely patent stenosis at the origin of the DASHA which is widely patent. RENAL ARTERIES: Single renal arteries bilaterally which are widely patent. NONVASCULAR: Lung Bases: Not included Liver, Gallbladder and Biliary Tree: The liver is normal in size, shape, and attenuation. No focal hepatic lesion or biliary ductal dilatation is present. Status post cholecystectomy. Pancreas: Unremarkable. Spleen: Punctate calcified splenic granulomas present Adrenal Glands: Left adrenal gland is nodular and unchanged when compared to 02/14/2023 Kidneys and Ureters: The kidneys are normal in size, shape, and attenuation. Again seen is a nonobstructing calculus in the lower pole of the left kidney which appears slightly smaller than it did on 02/14/2023. No hydronephrosis, hydroureter, or additional calculi seen. No perinephric stranding. Bladder: Gas is present in the bladder. Please correlate with history of catheterization. No calculi Gastrointestinal Tract: The visualized bowel is unremarkable. The appendix appears normal. Abdominal Wall: No significant hernia is appreciated. Lymph Nodes: No retroperitoneal lymphadenopathy. Pelvic Viscera: Mild BPH. Seminal vesicles appear normal Osseous Structures: Unremarkable. CT/CT angio abd aorta runoff IMPRESSION: 1. No significant aortoiliac inflow disease. 2. On the right, there is a below the knee amputation with question of a embolus in the profunda femoris. 3. On the left, there is severe SFA and popliteal disease with possible emboli in the profunda femoris and popliteal artery. There is good three-vessel runoff. 4. Nonvascular findings significant for cholecystectomy, stable left adrenal nodularity, nonobstructing left renal calculus, BPH and gas in the bladder.
[2023-10-18 13:00] VITALS: BP 150/70; BP 174/68; PULSE 67; PULSE 74; RESP 16; TEMP 36.6; O2SAT 98; O2SAT 99; BMI 32.4
[2023-10-18 13:23] LABS: MANUAL DIFF FLAG NO
[2023-10-18 13:30] LABS: Basophils Absolute Auto 0.1 X10*3/uL (0.0-0.2); Basophils Percent Auto 0.7 % (0-2); Eosinophils Percent Auto 8.8 % (0-4); Hematocrit 38.1 % (42.0-52.0); Hemoglobin 11.7 g/dl (14.0-18.0); Imm Gran Abs Auto 0.07 X10*3/uL (0.00-0.03); Imm Gran Pct Auto 0.6 % (0.0-0.4); Lymphocytes Percent Auto 17.2 % (20-40); Mean Corpuscular HGB Conc 30.7 g/dl (31.0-36.0); Mean Corpuscular Hemoglobin 25.4 pg (27.0-33.0); Mean Corpuscular Volume 82.6 fL (80.0-98.0); Mean Platelet Volume 9.6 fL (9.4-12.4); Monocytes Absolute Auto 0.7 X10*3/uL (0.1-1.2); Monocytes Percent Auto 6.3 % (2-11); Neutrophils Absolute Auto 7.8 x10*3/uL (2.0-8.3); Neutrophils Percent Auto 66.4 % (45-73); Platelet Count 333 X10*3/uL (160-400); Red Blood Count 4.61 X10*6/uL (4.60-5.80); Red Cell Distribution Width 15.9 % (11.0-16.0); White Blood Count 11.7 X10*3/uL (4.8-10.8)
[2023-10-18 14:15] LABS: Alanine Aminotransferase 47 U/L (0-40); Albumin Level 3.5 g/dL (3.5-5.0); Alkaline Phosphatase 99 U/L (39-117); Anion Gap 13 (12-20); Aspartate Amino Transferase 31 U/L (5-37); Bilirubin Total 0.3 mg/dL (0.0-1.0); Blood Urea Nitrogen 17 mg/dL (9-16); Calcium 8.9 mg/dL (8.4-10.2); Carbon Dioxide 25 mmol/L (22-29); Chloride 106 mmol/L (96-108); Creatinine Clr Calc Pharmacy 111.4; Estimated Glomerular Filt Rate > 60; Glucose Random 203 mg/dL (60-115); Potassium 4.5 mmol/L (3.3-5.1); Sodium 139 mmol/L (135-145)
--- NOTE | 2023-10-18 14:25 | ED.LOWEXIN ---
HPI - Extremity Injury (Lower) General Chief Complaint: Extremity Injury, Lower Stated Complaint: L FOOT PAIN/DISCOLORED FROM DM X4 MONTHS Time Seen by Provider: 10/18/23 14:23 Source: patient Limitations: language barrier History of Present Illness HPI Narrative: 58-year-old male with history of uncontrolled insulin-dependent type 2 diabetes, peripheral artery disease s/p right BKA, chronic nonhealing diabetic ulcers of the left toes, GERD, coronary artery disease s/p NSTEMI with SUHAS 02/2023 on DAPT, chronic pancreatitis, hypertension, hyperlipidemia, diabetic polyneuropathy, history of alcohol abuse who presents emergency department for evaluation of left great toe pain. Patient states that he sees the vascular surgeon, Dr. Sheppard and was told that he needs his left 5th toe amputated however he has been waiting for an ultrasound study. States that yesterday he developed pain and discoloration of his left great toe. The pain became significantly worse today. He states that his wound care nurse was concerned about the vascular supply to the great toe, called Dr. Sheppard and had the patient come to the emergency department for evaluation. Patient states that the pain in his right great toe is 10/10. He states he is having difficulty walking secondary to the pain. He denied fever, chills, nausea, vomiting, diarrhea. Patient was hospitalized 09/10 until 09/12/2023 for an NSTEMI, he was transferred to [facility] and the patient had a CABG. He states that he is having pain in his chest but this is secondary to the surgery. Related Data Home Medications Medication Instructions Recorded Confirmed blood sugar diagnostic (FreeStyle 12/01/22 06/28/23 Lite Strips) blood-glucose meter (FreeStyle 12/01/22 06/28/23 Lite Meter kit) atorvastatin 80 mg tablet 80 mg PO BEDTIME 06/20/23 10/18/23 sertraline 50 mg tablet 75 mg PO DAILY 08/25/23 10/18/23 famotidine 40 mg tablet 40 mg PO DAILY heartburn 09/11/23 10/18/23 melatonin 5 mg tablet 5 mg PO BEDTIME PRN Sleep 09/11/23 10/18/23 acetaminophen 500 mg tablet 1,000 mg PO Q6H PRN Pain 10/18/23 10/18/23 (Acetaminophen Extra Strength) amiodarone 200 mg tablet 200 mg PO BID 10/18/23 10/18/23 clopidogrel 75 mg tablet 75 mg DAILY 10/18/23 10/18/23 dapagliflozin propanediol 10 mg 10 mg PO QAM 10/18/23 10/18/23 tablet (Farxiga) insulin glargine 100 unit/mL (3 34 unit subcut BEDTIME 10/18/23 10/18/23 mL) subcutaneous pen (Lantus Solostar U-100 Insulin) lidocaine 5 % topical patch 1 patch topical DAILY PRN moderate 10/18/23 10/18/23 pain losartan 25 mg tablet 25 mg PO DAILY 10/18/23 10/18/23 pantoprazole 40 mg tablet,delayed 40 mg PO DAILY 10/18/23 10/18/23 release spironolactone 25 mg tablet 25 mg PO DAILY 10/18/23 10/18/23 tramadol 50 mg tablet 50 mg PO Q6H PRN pain 10/18/23 10/18/23 Previous Rx's Medication Instructions Recorded Bedside commode #1 ea 04/18/22 walker with wheels #1 ea 08/19/22 pen needle, diabetic 31 gauge x #100 ea 10/20/2201/10 (BD Ultra-Fine Short Pen Needle) recliner #1 ea 11/23/22 flash glucose scanning reader #1 ea 12/02/22 (FreeStyle Frank 2 [place]) flash glucose sensor (FreeStyle #2 ea 03/06/23 Frank 2 Sensor kit) gabapentin 600 mg tablet 600 mg PO TID #90 tabs 08/25/23 aspirin 81 mg chewable tablet 81 mg PO DAILY #90 tabs 09/10/23 metoprolol succinate 50 mg 50 mg PO DAILY #90 tabs 09/10/23 tablet,extended release 24 hr insulin lispro 100 unit/mL See Protocol subcut QIDACHS #10 mL 09/12/23 subcutaneous solution (Admelog U-100 Insulin lispro) Allergies Allergy/AdvReac Type Severity Reaction Status Date / Time No Known Allergies Allergy Verified 08/25/23 09:14 [No Known Allergies*] Review of Systems Review of Systems: Yes all other systems are reviewed and are negative [facility] Past Medical History [facility] Narrative: Social history: He denies tobacco, alcohol and drug use. Medical History 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 Diabetes mellitus with retinopathy, with long-term current use of insulin PAD (peripheral artery disease) Heartburn symptom Amputation stump infection Major depression, recurrent Erectile dysfunction Dyslipidemia Diabetes mellitus, with long-term current use of insulin Amputation stump complication Intractable left heel pain Chronic 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 Type 2 diabetes mellitus with diabetic polyneuropathy Type 2 diabetes mellitus with hyperglycemia Hyperlipidemia Chronic pancreatitis Essential hypertension Diabetes mellitus with hyperglycemia, with long-term current use of insulin Neuropathy Kidney calculus Failure of outpatient treatment Increased BMI Alcohol abuse CAD (coronary artery disease) Arthritis Surgical History S/P angiogram of extremity (06/28/23) History of right below knee amputation Status post below-knee amputation S/P debridement Hx of lithotripsy Status post laparoscopic cholecystectomy Hx of heart artery stent Family History Family History Mother [place] (myocardial infarction), Onset Age: 64 Diabetes mellitus HTN (hypertension) Maternal Grandmother Diabetes mellitus Social History Social History Household Members: Spouse and Children Household Members Other:: and daughter Housing: House Do you presently have visiting nurse or other home services: Yes (wound care nurse 3 days a week) Alcohol intake: never Comment: pt ambulates with crutches. Patient Tobacco Use Status: Current everyday Tobacco user Tobacco use type: Cigarette Cigarette Packs Per Day: 0.01 Cigarettes Per Day: 3 Years Smoked: 28 Smoked in Last 30 Days: No e-Cigarette/Vaping Use: Never Used Second Hand Smoke Exposure: No Use of substances other than those prescribed or required for medical reasons: No Substance Use Type: Marijuana Advance Directives: No Advance Directives Date on File: 04/17/21 service: Yes Current occupational status: unemployed and disabled Cognitive needs: No Hearing needs: No Vision needs: Yes Physical Exam Vital Signs: Vital Signs: Last Vital Signs Temp 97.8 F 10/18/23 19:21 Pulse 68 10/18/23 19:21 Resp 16 10/18/23 19:21 BP 126/71 10/18/23 19:21 Pulse Ox 95 10/18/23 19:21 O2 Del Method Room Air 10/18/23 19:21 BMI result Body Mass Index 32.4 Vital signs revealed an elevated blood pressure of 150/70 otherwise unremarkable Exam General: Awake, and monitor stress secondary to his left great toe pain Head: Normocephalic, atraumatic EENT: PERRL, Lids normal, sclera normal, conjunctiva normal, nose normal , ears normal, throat without erythema or exudates Neck: Supple, no adenopathy Lung: breath sounds symmetric, no wheezing, rales or rhonchi Chest: symmetric movement, sternal surgical scar is intact-no evidence for cellulitis, moderate chest wall tenderness Heart: regular rate and rhythm, normal S1, S2 no murmurs or rubs Abdomen: soft, non-tender, nondistended, normal bowel sounds Back: no vertebral tenderness, no CVAT Extremities: Right BKA. The patient has purplish discoloration of all of his toes with the discoloration extending to the distal metatarsals of the left foot, the left 5th toe is black, is hard palpation but nontender. The right greater toe is black, very firm to palpitation and tender to palpation. Neuro: Awake, alert, oriented, normal speech, cranial nerves intact, moves all extremities symmetrically Medications Administered Generic Name Dose Route Start Last Admin Trade Name Freq PRN Reason Stop Dose Admin Sodium Chloride 1,000 mls @ 125 mls/hr 10/18/23 14:45 10/18/23 20:44 Ns IVCONT 125 mls/hr .Q8H SHELLY Administration Insulin Human Lispro 0 unit 10/18/23 21:00 10/18/23 20:47 Insulin Lispro 100 Unit/Ml 3 Ml Vial SUBCUT Not Given QIDACHS [facility] Protocol Discontinued Medications Generic Name Dose Route Start Last Admin Trade Name Freq PRN Reason Stop Dose Admin Hydromorphone HCl 1 mg 10/18/23 14:45 10/18/23 15:10 Hydromorphone Hcl 1 Mg/Ml Syringe IVPUSH 10/18/23 14:46 1 mg ONCE STA Administration Protocol Hydromorphone HCl 1 mg 10/18/23 16:19 10/18/23 16:24 Hydromorphone Hcl 1 Mg/Ml Syringe IVPUSH 10/18/23 16:20 1 mg ONCE STA Administration Protocol Hydromorphone HCl 1 mg 10/18/23 17:48 10/18/23 18:09 Hydromorphone Hcl 1 Mg/Ml Syringe IVPUSH 10/18/23 17:49 1 mg ONCE STA Administration Protocol Hydromorphone HCl 1 mg 10/18/23 19:16 10/18/23 19:25 Hydromorphone Hcl 1 Mg/Ml Syringe IVPUSH 10/18/23 19:17 1 mg ONCE STA Administration Protocol Piperacillin Sod/Tazobactam 100 mls @ 200 mls/hr 10/18/23 19:04 10/18/23 20:37 Sod 4.5 gm/ Sodium Chloride IV 10/18/23 19:33 Infused ONCE ONE Infusion Vancomycin HCl 2,000 mg in 500 mls @ 250 mls/hr 10/18/23 19:04 10/18/23 20:40 Vancomycin/Ns IV 10/18/23 21:03 250 mls/hr ONCE ONE Administration Iohexol 100 ml 10/18/23 16:42 10/18/23 16:42 Iohexol 350 Mg/Ml 100 Ml Infus..Btl IV 10/18/23 16:43 100 ml ONCE ONE Administration Ondansetron HCl 4 mg 10/18/23 14:45 10/18/23 15:10 Ondansetron Hcl 4 Mg/2 Ml Vial IVPUSH 10/18/23 14:46 4 mg ONCE ONE Administration Medical Decision Making Medical Decision Making MDM Narrative: 58-year-old male with history of uncontrolled insulin-dependent type 2 diabetes, peripheral artery disease s/p right BKA, chronic nonhealing diabetic ulcers of the left toes, GERD, coronary artery disease s/p NSTEMI with SUHAS 02/2023 on DAPT, chronic pancreatitis, hypertension, hyperlipidemia, diabetic polyneuropathy, history of alcohol abuse who presents emergency department for evaluation of left great toe pain. Patient states that he sees the vascular surgeon, Dr. Sheppard and was told that he needs his left 5th toe amputated however he has been waiting for an ultrasound study. States that yesterday he developed pain and discoloration of his left great toe which got worse today. He was seen by his wound care nurse was concerned about the vascular supply to the great toe, called Dr. Sheppard and had the patient come to the emergency department for evaluation. Patient states that the pain in his right great toe is 10/10. Vital signs revealed an elevated blood pressure of 150/70. Examination did reveal significant discoloration of the toes of his left foot extending to the distal metatarsal areas, the left great toe and 5th toe are hard and have a dark discoloration to them concerning for disruption of the vascular supply 19:19 Differential diagnosis: Cellulitis, arterial occlusion, arterial emboli, infection Following evaluation was ordered : CBC, CMP, CT angiogram abdominal aorta with runoff Patient was treated initially with the following: Dilaudid 1 mg IV, Zofran 4 mg IV and normal saline 125 mL/hr 19:26 hours My interpretation patient's laboratory evaluation is as follows CBC was normal. CMP revealed an elevated glucose of [address] abdomen angiogram with extremity runoff on the left revealed severe SFA and palpable revealed disease with possible emboli in the profunda femoris popliteal arteries but there was good three-vessel runoff. I did discuss this finding with Dr. Sheppard and he did not think that the patient had an embolic cause for his new toe pain and recommended against heparin. He recommended admission to the hospitalist service for treatment of possible infection and pain management. He will consult on the patient in the morning. Patient did require Dilaudid 1 mg IV times a total of 4 doses to control his pain Patient was treated with Zosyn 4.5 g IV and vancomycin 2 g IV. I did discuss the patient over tiger text with the covering hospitalist, Dr. Pradeep Ariza and the patient will be admitted for further manage Admission/Observation Consideration of admission/observation: Escalation of care including admission/observation considered Consult Healthcare Provider Management of the patient was discussed with: Machine Set Up Technician (Dr. Sheppard) Lab Data [facility] Lab Attestation statement: I reviewed the patient's lab results. 10/18/23 13:17 10/18/23 13:51 Labs: Lab Results 10/18/23 10/18/23 10/18/23 Range/Units 13:17 13:51 19:35 WBC 11.7 H (4.8-10.8) X10*3/uL RBC 4.61 (4.60-5.80) X10*6/uL Hgb 11.7 L (14.0-18.0) g/dl Hct 38.1 L (42.0-52.0) % MCV 82.6 (80.0-98.0) fL MCH 25.4 L (27.0-33.0) pg MCHC 30.7 L (31.0-36.0) g/dl RDW 15.9 (11.0-16.0) % Plt Count 333 D (160-400) X10*3/uL MPV 9.6 (9.4-12.4) fL Immature Gran % (Auto) 0.6 H (0.0-0.4) % Neut % (Auto) 66.4 (45-73) % Lymph % (Auto) 17.2 L (20-40) % [place] % (Auto) 6.3 (2-11) % Eos % (Auto) 8.8 H (0-4) % Baso % (Auto) 0.7 (0-2) % Lymph # (Auto) 2.0 (1.2-4.9) X10*3/uL [place] # (Auto) 0.7 (0.1-1.2) X10*3/uL Eos # (Auto) 1.0 H (0.0-0.4) X10*3/uL Baso # (Auto) 0.1 (0.0-0.2) X10*3/uL Abs Immat Gran (auto) 0.07 H (0.00-0.03) X10*3/uL Absolute Neuts (auto) 7.8 (2.0-8.3) x10*3/uL Absolute Nucleated RBC 0.000 (0.0-0.012) X10*3/uL Nucleated RBC % (auto) 0.0 (0.0-0.2) /100WBC ESR 57 H (0-15) MM/HR Sodium 139 (135-145) mmol/L Potassium 4.5 D (3.3-5.1) mmol/L Chloride 106 (96-108) mmol/L Carbon Dioxide 25 (22-29) mmol/L Anion Gap 13 (12-20) BUN 17 H (9-16) mg/dL Creatinine 0.85 (0.5-1.4) mg/dL Estim Creat Clear Calc 111.4 Estimated GFR > 60 Random Glucose 203 H (60-115) mg/dL Lactic Acid 0.9 (0.5-2.0) mmol/L Calcium 8.9 (8.4-10.2) mg/dL Total Bilirubin 0.3 (0.0-1.0) mg/dL AST 31 (5-37) U/L ALT 47 H (0-40) U/L Alkaline Phosphatase 99 (39-117) U/L C-Reactive Protein 1.15 H (< or = 0.50) mg/dL Total Protein 8.0 (6.5-8.0) g/dL Albumin 3.5 (3.5-5.0) g/dL Radiology Impression Discussion of test interpretation with radiology: I discussed test interpretation with the radiologist and I have reviewed the radiologist's reading. Radiologist Impression: CT angio abd aorta runoff IMPRESSION: 1. No significant aortoiliac inflow disease. 2. On the right, there is a below the knee amputation with question of a embolus in the profunda femoris. 3. On the left, there is severe SFA and popliteal disease with possible emboli in the profunda femoris and popliteal artery. There is good three-vessel runoff. 4. Nonvascular findings significant for cholecystectomy, stable left adrenal nodularity, nonobstructing left renal calculus, BPH and gas in the bladder. Dictated By: Alex Patrick MD External Record Review External record reviewed: Office record Chronic Conditions Patient?s care impacted by: Diabetes and Hypertension Critical Care Time Critical Care Time Critical Care Time: Yes Total Critical Care Time: 45 Attestation: Critical Care: The patient was critically ill with a high probability of imminent or life threatening deterioration. I spent greater than 30 minutes of discontinuous time evaluating the patient,delivering critical care at the bedside, discussing and evaluating pertinent data with consultants. Critical care time does not include time spent performing separately billable procedures or teaching. Total time spent performing critical care was 45 minutes. Discharge Plan Discharge Clinical Impression: Acute pain of left foot, Peripheral arterial disease, Cellulitis of foot, left Patient Disposition: Admitted As Inpatient
[2023-10-18] MEDS: ondansetron HCL 4 MG/2 ML VIAL IVPUSH (15:10)
[2023-10-18] MEDS: HYDROmorphone HCl 1 MG/ML SYRINGE IVPUSH ×4 (15:10→19:25)
[2023-10-18] MEDS: 0.9 % Sodium Chloride 1,000 ML 125 ML IVCONT ×2 (15:10→20:44)
--- NOTE | 2023-10-18 15:25 | PC.NURSE ---
Positive Doppler found on left foot distal to the great toe, somewhat fleeting and not bounding but present.
[2023-10-18 16:27] VITALS: BP 129/65; PULSE 61; RESP 14; TEMP 36.6; O2SAT 96
[2023-10-18] MEDS: iohexoL 350 MG/ML 100 ML INFUS..BTL IV (16:42)
--- NOTE | 2023-10-18 16:48 | PHA.MEDREC ---
Addendum entered by Cristal Hameed RPh 10/18/23 17:24: [facility] list has spironolactone which has not been filled since may,. Patient reporting taking them medicaitons. Patient reports that he is taking valsartan and losartan, patient would not be on both and list as well as most recently filled is losartan. Original Note: Pharmacy Consult ? Medication Reconciliation Pharmacy has completed the medication reconciliation. Confirmed medications with patient, claim history, and list from [facility]. Patient reports that he is taking 75mg of sertraline. History has him taking 50mg.
[2023-10-18 19:21] VITALS: BP 126/71; PULSE 68; RESP 16; TEMP 36.6; O2SAT 95
[2023-10-18] MEDS: Piperacillin Sodium/Tazobactam 4.5 GM in 0.9 % Sodium Chloride 100 ML IV (19:37)
--- NOTE | 2023-10-18 19:48 | PC.NURSE ---
blood cultures and labs drawn. ivf and abx infusing. vss afebrile. +pulse to LLE. pt educated on plan of care with felecia staff research scientist, Dr. Martinez and this RN at bedside. pt denies questions/concerns. call arthur within reach.
[2023-10-18 20:02] LABS: Lactic Acid 0.9 mmol/L (0.5-2.0)
[2023-10-18 20:05] LABS: C Reactive Protein 1.15 mg/dL (< or = 0.50)
--- NOTE | 2023-10-18 20:22 | PM.IMHP ---
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 Patient states symptoms began yesterday afternoon when he started having pain in his left great toe which gradually grew worse as the day progressed. This morning pain had increased significantly and and great toe appeared black. When [facility] arrived to change dressings on his foot, they noted his toes appeared much more discolored than previous and contacted his vascular surgeon Dr. Sheppard, who advised him to present to the ED for further evaluation. Patient reports that his 5th digit on left foot has already been marked for amputation. ? Pt notes he currently feels better d/t pain meds, but reports having difficult walking secondary to pain. Denies any purulent drainage from wounds. Also reports chronic chest pain secondary to recent open heart surgery. He denies any other acute medical complaints: no SOB, difficulty breathing. No fever, chills, N/V/D, abd pain. In the ED pt was slightly hypertensive at 150/70, vitals otherwise WNL. Labs were significant for leukocytosis of 11.7, H&H 11.7/38.1, ALT 47, CRP 1.15, and ESR 57. No significant electrolyte abnormalities. Renal function baseline. Lactic acid 0.9. Aorta with runoff CTA found in left leg severe SFA and popliteal disease with possible emboli in the profunda femoris and popliteal artery. On the right found below the knee amputation with question of embolus in the profunda femoris. Also found no significant aortoiliac inflow disease. ?Pt was treated with hydromorphone, ondansetron, IVF, and Zosyn. Pt will be admitted to the hospital treatment and further evaluation of dry gangrene of toes on left foot. Review of Systems Review of Systems: Left great toe discoloration and pain 5th digit on left foot pain and discoloration Chronic chest pain, at baseline Denies fever, chills, nausea, vomiting, abdominal pain No purulent drainage from toes Denies shortness of breath PMFSH Medical History 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 Diabetes mellitus with retinopathy, with long-term current use of insulin PAD (peripheral artery disease) Heartburn symptom Amputation stump infection Major depression, recurrent Erectile dysfunction Dyslipidemia Diabetes mellitus, with long-term current use of insulin Amputation stump complication Intractable left heel pain Chronic 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 Type 2 diabetes mellitus with diabetic polyneuropathy Type 2 diabetes mellitus with hyperglycemia Hyperlipidemia Chronic pancreatitis Essential hypertension Diabetes mellitus with hyperglycemia, with long-term current use of insulin Neuropathy Kidney calculus Failure of outpatient treatment Increased BMI Alcohol abuse CAD (coronary artery disease) Arthritis Family History Mother NM (myocardial infarction), Onset Age: 64 Diabetes mellitus HTN (hypertension) Maternal Grandmother Diabetes mellitus Surgical History S/P angiogram of extremity (06/28/23) History of right below knee amputation Status post below-knee amputation S/P debridement Hx of lithotripsy Status post laparoscopic cholecystectomy Hx of heart artery stent Social History Household Members: Spouse and Children Household Members Other:: and daughter Housing: House Do you presently have visiting nurse or other home services: Yes (wound care nurse 3 days a week) Alcohol intake: never Comment: pt ambulates with crutches. Patient Tobacco Use Status: Current everyday Tobacco user Tobacco use type: Cigarette Cigarette Packs Per Day: 0.01 Cigarettes Per Day: 3 Years Smoked: 28 Smoked in Last 30 Days: No e-Cigarette/Vaping Use: Never Used Second Hand Smoke Exposure: No Use of substances other than those prescribed or required for medical reasons: No Substance Use Type: Marijuana Advance Directives: No Advance Directives Date on File: 04/17/21 service: Yes Current occupational status: unemployed and disabled Cognitive needs: No Hearing needs: No Vision needs: Yes Meds Allergies Allergy/AdvReac Type Severity Reaction Status Date / Time No Known Allergies Allergy Verified 08/25/23 09:14 [No Known Allergies*] Active Medications: Current Medications Acetaminophen (Acetaminophen 325 Mg Tablet) 975 mg PO Q6H PRN PRN Reason: Pain, Mild (Pain Scale 1-3) Dextrose (Dextrose 50 % 25 Gm/50 Ml Syringe) 25 gm IVPUSH Q15M PRN; Protocol PRN Reason: per Hypoglycemia Standing Ord. Glucose (Glucose Gel 15 Gm Gel..Gram.) 15 gm PO Q15M PRN; Protocol PRN Reason: per Hypoglycemia Standing Ord. Heparin Sodium (Porcine) (Heparin Sodium,Porcine 5,000 Unit/Ml Vial) 5,000 unit SUBCUT Q12H [facility] Sodium Chloride (Ns) 1,000 mls @ 125 mls/hr IVCONT .Q8H [facility] Last Admin: 10/18/23 15:10 Dose: 125 mls/hr Vancomycin HCl (Vancomycin/Ns) 2,000 mg in 500 mls @ 250 mls/hr IV ONCE ONE Stop: 10/18/23 21:03 Insulin Human Lispro (Insulin Lispro 100 Unit/Ml 3 Ml Vial) 0 unit SUBCUT QIDACHS [facility]; Protocol Sodium Chloride (0.9 % Sodium Chloride Flush 3 Ml Syringe) 3 ml IVFLUSH QSHIFT [facility] Home Medications Medication Instructions Recorded Confirmed Last Taken Type blood sugar diagnostic (FreeStyle 12/01/22 06/28/23 Unknown History Lite Strips) blood-glucose meter (FreeStyle 12/01/22 06/28/23 Unknown History Lite Meter kit) atorvastatin 80 mg tablet 80 mg PO BEDTIME 06/20/23 10/18/23 10/17/23 History sertraline 50 mg tablet 75 mg PO DAILY 08/25/23 10/18/23 10/18/23 History famotidine 40 mg tablet 40 mg PO DAILY heartburn 09/11/23 10/18/23 10/18/23 History melatonin 5 mg tablet 5 mg PO BEDTIME PRN Sleep 09/11/23 10/18/23 Unknown History acetaminophen 500 mg tablet 1,000 mg PO Q6H PRN Pain 10/18/23 10/18/23 Unknown History (Acetaminophen Extra Strength) amiodarone 200 mg tablet 200 mg PO BID 10/18/23 10/18/23 10/18/23 History clopidogrel 75 mg tablet 75 mg DAILY 10/18/23 10/18/23 10/18/23 History dapagliflozin propanediol 10 mg 10 mg PO QAM 10/18/23 10/18/23 10/18/23 History tablet (Farxiga) insulin glargine 100 unit/mL (3 34 unit subcut BEDTIME 10/18/23 10/18/23 10/17/23 History mL) subcutaneous pen (Lantus Solostar U-100 Insulin) lidocaine 5 % topical patch 1 patch topical DAILY PRN moderate 10/18/23 10/18/23 10/18/23 History pain losartan 25 mg tablet 25 mg PO DAILY 10/18/23 10/18/23 10/18/23 History pantoprazole 40 mg tablet,delayed 40 mg PO DAILY 10/18/23 10/18/23 10/18/23 History release spironolactone 25 mg tablet 25 mg PO DAILY 10/18/23 10/18/23 10/18/23 History tramadol 50 mg tablet 50 mg PO Q6H PRN pain 10/18/23 10/18/23 10/18/23 History Physical Exam Vital Signs and Narrative: Vital Signs: Last Vital Signs Temp 97.8 F 10/18/23 19:21 Pulse 68 10/18/23 19:21 Resp 16 10/18/23 19:21 BP 126/71 10/18/23 19:21 Pulse Ox 95 10/18/23 19:21 O2 Del Method Room Air 10/18/23 19:21 BMI result Body Mass Index 32.4 Constitutional: Alert, in no acute distress. Mental Status: Oriented to person, place and time. Eyes: Pupils are equal, round, and reactive to light. Ear, Nose, and Throat: Oropharynx clear, mucous membranes moist. Ears and nose without deformities. Trachea midline. Respiratory: Clear to auscultation bilaterally. No wheezing, rales, or rhonchi. Cardiovascular: S1, S2 regular. No murmurs, rubs, or gallops. Gastrointestinal: Abdomen soft, non-tender, non-distended. Normal bowel sounds. Neurologic: Cranial nerves II-XII are grossly intact bilaterally. No focal neurological deficits. Moves all extremities spontaneously. Skin: Warm, dry. Musculoskeletal: No cyanosis or clubbing. Extremities: No edema. Right BKA. First and fifth digits on left foot as pictured below. Psychiatric: Normal mood and affect. Results Labs 10/18/23 13:17 10/18/23 13:51 Labs: Laboratory Results - last 24 hr 10/18/23 10/18/23 10/18/23 13:17 13:51 19:35 MCV 82.6 MCH 25.4 L MCHC 30.7 L RDW 15.9 Plt Count 333 D MPV 9.6 Immature Gran % (Auto) 0.6 H Neut % (Auto) 66.4 Lymph % (Auto) 17.2 L [place] % (Auto) 6.3 Eos % (Auto) 8.8 H Baso % (Auto) 0.7 Lymph # (Auto) 2.0 [place] # (Auto) 0.7 Eos # (Auto) 1.0 H Baso # (Auto) 0.1 Abs Immat Gran (auto) 0.07 H Absolute Neuts (auto) 7.8 Absolute Nucleated RBC 0.000 Nucleated RBC % (auto) 0.0 Anion Gap 13 Estim Creat Clear Calc 111.4 Estimated GFR > 60 Random Glucose 203 H Lactic Acid 0.9 Calcium 8.9 Total Bilirubin 0.3 AST 31 ALT 47 H Alkaline Phosphatase 99 C-Reactive Protein 1.15 H Total Protein 8.0 Albumin 3.5 Imaging Radiologist's Impressions: Impressions Aorta w/Runoff CTA 10/18/23 16:50 IMPRESSION: 1. No significant aortoiliac inflow disease. 2. On the right, there is a below the knee amputation with question of a embolus in the profunda femoris. 3. On the left, there is severe SFA and popliteal disease with possible emboli in the profunda femoris and popliteal artery. There is good three-vessel runoff. 4. Nonvascular findings significant for cholecystectomy, stable left adrenal nodularity, nonobstructing left renal calculus, BPH and gas in the bladder. 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 Pt will be admitted to the hospital treatment and further evaluation of dry gangrene of toes on left foot. Chronic left toe wounds with dry gangrene Secondary to to PAD and uncontrolled type 2 diabetes Runoff CTA found in left leg severe SFA and popliteal disease with possible emboli in the profunda femoris and popliteal artery Patient does not meet sepsis criteria: No fever, tachycardia, fever, or leukocytosis; lactic acid WNL at 0.9 Will empirically treat with Zosyn and vanco, started 10/18/2023 Vascular surgery consult CAD Continue statin, aspirin, Plavix Uncontrolled type 2 diabetes with neuropathy Sliding-scale insulin, Lantus Diabetic diet Continue Farxiga, gabapentin HTN Continue amlodipine, metoprolol, losartan, spironolactone GERD Continue PPI Mood disorder Continue sertraline Full Code Attending:? DVT Prophylaxis: Lovenox Pt will require a hospitalization of at least two nights for treatment of?worsening chronic left toe wounds with dry gangrene. Given worsening condition of patient's foot, you will require hospitalization for administration of IV antibiotics, IV analgesics, and specialist consultation with likely surgical procedure. Quality Stroke Does the patient have a stroke diagnosis?: No VTE Prior VTE?: No VTE Risk Level:: Medical - moderate - high VTE Device Contraindication: Treatment Not Indicated VTE Drug Contraindication: N/A - Med Ordered
[2023-10-18 20:29] LABS: Erythrocyte Sedimentation Rate 57 MM/HR (0-15)
[2023-10-18] MEDS: vancomycin/NS 2,000 MG/500 ML PLAST..BAG 250 MG IV (20:40)
[2023-10-18 20:48] LABS: Glucose, Whole Blood 85 mg/dL (60-115)
--- NOTE | 2023-10-18 20:51 | PC.NURSE ---
ivf and abx infusing per mar. insulin held as poc 85 no coverage at this time. pt provided food per request following diabetic diet. hob elevated. pt denies questions concerns at this time. aware of NPO at midnight. call arthur within reach.
--- NOTE | 2023-10-18 21:28 | PHA.PROG ---
Admission Date/Time: October 18, 2023 19:59 Indication: Bone and Joint Weight in k.4 kg Adjusted body weight in K.18 kg [place] body weight in K.7 kg Obesity Dosing Indication % IBW: 140% Serum Creatinine - Last 168 Hours 10/18/23 13:51 Creatinine 0.85 Estimated CrCl and GFR - Last 168 Hours 10/18/23 13:51 Estim Creat Clear Calc 111.4 Estimated GFR > 60 Vancomycin Loading Dose: 2000 mg Current Vancomycin Dosing Regimen: 1250 mg Q12H Date and Time for next Vancomycin Level to be drawn: 10/20 @ 0700 Pharmacist Comments on Vancomycin Plan: Patient received adequate load dose in the ER on 10/18 @ 2040 [place] dose vancomycin 1250 mg Q12H is scheduled to start 10/19 @ 0900. Predicted AUC 503 with a trough of 15.8 Patient is obese with %IBW > 130% therefore careful monitor is required due to vancomycin's high volume of distribution Level will be drawn prior to 4th dose Pharmacy will monitor renal function daily. Cristal Hameed PharmD Vancomycin dosing will take advantage of [employer] as a clinical decision support tool that uses Bayesian modeling to calculate individual patient's pharmacokinetic parameters and forecast the patient's drug concentration time course with the target goal AUC 24 range of 400 - 600 mg/L/hr.
[2023-10-18 22:48] VITALS: RESP 18
[2023-10-18] MEDS: Morphine Sulfate 4 MG/ML CARTRIDGE IVPUSH (22:48)
--- NOTE | 2023-10-18 22:50 | PC.NURSE ---
pt medicated per mar reporting 8/10 pain in LLE. resp even and unlabored.
[2023-10-18 23:59] VITALS: BP 140/73; PULSE 65; RESP 12; TEMP 36.3; O2SAT 95
[2023-10-19] MEDS: Morphine Sulfate 4 MG/ML CARTRIDGE IVPUSH ×5 (02:47→20:22)
[2023-10-19] MEDS: Piperacillin Sodium/Tazobactam 3.375 GM in 0.9 % Sodium Chloride 50 ML IV ×4 (02:47→18:14)
--- NOTE | 2023-10-19 02:50 | PC.NURSE ---
pt medicated per mar reporting 8/10 pain in LLE. resp even and unlabored.
[2023-10-19] MEDS: 0.9 % Sodium Chloride 1,000 ML 125 ML IVCONT ×2 (06:15→16:03)
[2023-10-19 07:22] VITALS: BP 133/71; PULSE 67; RESP 14; TEMP 36.6; O2SAT 94
[2023-10-19 07:31] LABS: Estimated Average Glucose 189 mg/dL; Hemoglobin A1c % 8.2 % (<6.0)
[2023-10-19 07:34] LABS: Glucose, Whole Blood 105 mg/dL (60-115)
[2023-10-19 08:00] VITALS: BP 136/63; PULSE 67; RESP 18; TEMP 36.5; O2SAT 97
[2023-10-19 08:54] LABS: Creatinine Clr Calc Pharmacy 118.4; Estimated Glomerular Filt Rate > 60
[2023-10-19] MEDS: vancomycin HCL 1,250 MG in 0.9 % Sodium Chloride 250 ML 166.67 MG IV ×2 (09:06→20:24)
[2023-10-19] MEDS: diphenhydrAMINE HCL 50 MG/ML VIAL 25 MG IVPUSH ×2 (09:35→17:44)
[2023-10-19 11:44] LABS: Glucose, Whole Blood 114 mg/dL (60-115)
--- NOTE | 2023-10-19 12:12 | HO.PM.IMPN ---
Subjective Subjective Date of Service: 10/19/23 Interval History: Seen and evaluated this morning complaining of pain in left foot denies fever or chills no other overnight events Review of Systems Review of Systems: Yes all other systems are reviewed and are negative Physical Exam Vital Signs: Vital Signs: Last Vital Signs Temp 97.7 F 10/19/23 08:00 Pulse 67 10/19/23 08:00 Resp 18 10/19/23 08:00 BP 136/63 10/19/23 08:00 Pulse Ox 97 10/19/23 08:00 O2 Del Method Room Air 10/19/23 08:00 BMI result Body Mass Index 32.4 Const: Other: Constitutional : Awake, interactive, not in distress Neck : Normal inspection, Supple Cardiovascular : RRR, no JVP, no lower extremity edema Respiratory : good bilateral air entry, no crackles, wheezes or rhonchi Gastrointestinal: soft, lax, Normal bowel sounds, Non tender Skin : Warm, Dry, LLE cold , big toe and little toe blackish discoloration . dry gangrene Neurological : Alert & oriented x3, No focal deficit Objective Data Active Medications Acetaminophen (Acetaminophen 325 Mg Tablet) 975 mg PO Q6H PRN PRN Reason: Pain, Mild (Pain Scale 1-3) Dextrose (Dextrose 50 % 25 Gm/50 Ml Syringe) 25 gm IVPUSH Q15M PRN; Protocol PRN Reason: per Hypoglycemia Standing Ord. Glucose (Glucose Gel 15 Gm Gel..Gram.) 15 gm PO Q15M PRN; Protocol PRN Reason: per Hypoglycemia Standing Ord. Heparin Sodium (Porcine) (Heparin Sodium,Porcine 5,000 Unit/Ml Vial) 5,000 unit SUBCUT Q12H [facility] Last Admin: 10/19/23 09:10 Dose: Not Given Documented By: HAYDEE Non-Admin Reason: surgery today Sodium Chloride (Ns) 1,000 mls @ 125 mls/hr IVCONT .Q8H [facility] Last Admin: 10/19/23 06:15 Dose: 125 mls/hr Documented By: RAMIRO Piperacillin Sod/Tazobactam (Sod 3.375 gm/ Sodium Chloride) 50 mls @ 100 mls/hr IV Q6H [facility] Last Infusion: 10/19/23 08:25 Dose: Infused Documented By: HAYDEE Vancomycin HCl 1,250 mg/ (Sodium Chloride) 250 mls @ 166.667 mls/hr IV Q12H [facility] Last Infusion: 10/19/23 10:38 Dose: Infused Documented By: HAYDEE Insulin Human Lispro (Insulin Lispro 100 Unit/Ml 3 Ml Vial) 0 unit SUBCUT QIDACHS [facility]; Protocol Last Admin: 10/19/23 11:48 Dose: Not Given Documented By: HAYDEE Non-Admin Reason: No Insulin Coverage Morphine Sulfate (Morphine Sulfate 4 Mg/Ml Cartridge) 4 mg IVPUSH Q4H PRN; Protocol PRN Reason: Pain, Severe (Pain Scale 7-10) Last Admin: 10/19/23 10:54 Dose: 4 mg Documented By: HAYDEE Pharmacy Consult (Consult Rx Vancomycin Dosing) 1 each MISCELLANE DAILY PRN PRN Reason: Consult order Sodium Chloride (0.9 % Sodium Chloride Flush 3 Ml Syringe) 3 ml IVFLUSH QSHIFT [facility] Last Admin: 10/19/23 08:02 Dose: Not Given Documented By: HAYDEE Non-Admin Reason: IV Running Labs 10/18/23 13:17 10/19/23 05:09 Labs: Laboratory Results - last 24 hr 10/18/23 10/18/23 10/18/23 13:17 13:51 19:35 MCV 82.6 MCH 25.4 L MCHC 30.7 L RDW 15.9 Plt Count 333 D MPV 9.6 Immature Gran % (Auto) 0.6 H Neut % (Auto) 66.4 Lymph % (Auto) 17.2 L [place] % (Auto) 6.3 Eos % (Auto) 8.8 H Baso % (Auto) 0.7 Lymph # (Auto) 2.0 [place] # (Auto) 0.7 Eos # (Auto) 1.0 H Baso # (Auto) 0.1 Abs Immat Gran (auto) 0.07 H Absolute Neuts (auto) 7.8 Absolute Nucleated RBC 0.000 Nucleated RBC % (auto) 0.0 ESR 57 H Anion Gap 13 Estim Creat Clear Calc 111.4 Estimated GFR > 60 POC Glucose Random Glucose 203 H Estimat Average Glucose Hemoglobin A1c % Lactic Acid 0.9 Calcium 8.9 Total Bilirubin 0.3 AST 31 ALT 47 H Alkaline Phosphatase 99 C-Reactive Protein 1.15 H Total Protein 8.0 Albumin 3.5 10/18/23 10/19/23 10/19/23 20:44 05:09 07:19 MCV MCH MCHC RDW Plt Count MPV Immature Gran % (Auto) Neut % (Auto) Lymph % (Auto) [place] % (Auto) Eos % (Auto) Baso % (Auto) Lymph # (Auto) [place] # (Auto) Eos # (Auto) Baso # (Auto) Abs Immat Gran (auto) Absolute Neuts (auto) Absolute Nucleated RBC Nucleated RBC % (auto) ESR Anion Gap Estim Creat Clear Calc 118.4 Estimated GFR > 60 POC Glucose 85 105 Random Glucose Estimat Average Glucose 189 Hemoglobin A1c % 8.2 H Lactic Acid Calcium Total Bilirubin AST ALT Alkaline Phosphatase C-Reactive Protein Total Protein Albumin 10/19/23 11:37 MCV MCH MCHC RDW Plt Count MPV Immature Gran % (Auto) Neut % (Auto) Lymph % (Auto) [place] % (Auto) Eos % (Auto) Baso % (Auto) Lymph # (Auto) [place] # (Auto) Eos # (Auto) Baso # (Auto) Abs Immat Gran (auto) Absolute Neuts (auto) Absolute Nucleated RBC Nucleated RBC % (auto) ESR Anion Gap Estim Creat Clear Calc Estimated GFR POC Glucose 114 Random Glucose Estimat Average Glucose Hemoglobin A1c % Lactic Acid Calcium Total Bilirubin AST ALT Alkaline Phosphatase C-Reactive Protein Total Protein Albumin Assessment and Plan (1) Dry gangrene: Status: Acute (2) Cellulitis of foot, left: Status: Acute (3) Peripheral arterial disease: Status: Acute Plan Pt is a [id number] with a PMH significant for?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 Pt will be admitted to the hospital treatment and further evaluation of dry gangrene of toes on left foot. Big and little Toes dry gangrene 2/2 PAD and uncontrolled type 2 diabetes Runoff CTA found in left leg severe SFA and popliteal disease with possible emboli in the profunda femoris and popliteal artery; vascular surgery to do angiogram Continue Juan and ronaldo, started 10/18/2023 Vascular surgery following for likely amputation next week follow Vanco trough CAD Continue statin, aspirin, Plavix Uncontrolled type 2 diabetes with neuropathy A1c 8.2 Sliding-scale insulin, Lantus Diabetic diet Continue Farxiga, gabapentin HTN Continue amlodipine, metoprolol, losartan, spironolactone GERD Continue PPI Mood disorder Continue sertraline Full Code DVT Prophylaxis: Lovenox Pt will require a hospitalization overnightfor treatment of?worsening chronic left toe wounds with dry gangrene. for administration of IV antibiotics, IV analgesics, pending surgical procedure. Quality Stroke Does the patient have a stroke diagnosis?: No VTE Prior VTE?: No VTE Risk Level:: Medical - moderate - high VTE Device Contraindication: Treatment Not Indicated VTE Drug Contraindication: N/A - Med Ordered
[2023-10-19 15:31] VITALS: BP 149/64; PULSE 79; RESP 18; TEMP 37.1; O2SAT 95
[2023-10-19 16:21] LABS: Glucose, Whole Blood 146 mg/dL (60-115)
--- NOTE | 2023-10-19 16:25 | MHC.CM.PN ---
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
--- NOTE | 2023-10-19 17:12 | HO.VASCPN ---
Subjective Subjective Date of Service: 10/19/23 Patient reports: no new complaints and feels better Interval history: Patient seen and examined. He has nonhealing ulcers of the left foot great toe and 5th toe. Overall doing significantly better. Pain better controlled. He now presents for routine follow-up. Physical Exam Vital Signs: Vital Signs: Last Vital Signs Temp 98.7 F 10/19/23 15:31 Pulse 79 10/19/23 15:31 Resp 18 10/19/23 15:31 BP 149/64 H 10/19/23 15:31 Pulse Ox 95 10/19/23 15:31 O2 Del Method Room Air 10/19/23 15:31 BMI result Body Mass Index 32.4 Const: General: cooperative, healthy appearing and no acute distress Orientation/consciousness: oriented to person, oriented to place and oriented to time HEENT: Head: Yes normal to inspection Neck: Carotids: no bruits Chest: Chest palpation & inspection: normal inspection of the chest Resp: Effort & Inspection: normal respiratory effort and able to speak in complete sentences Auscultation: clear to auscultation bilaterally Cardio: Rate: regular rate Heart sounds: S1 normal heart sound present and S2 normal heart sound present GI: Inspection: Yes normal to inspection Skin: Other: Left great toe and 5th toe nonhealing ulcer General skin exam: no rashes or lesions noted Wounds: no wounds Neuro: General: oriented to person, oriented to place, oriented to time and CN's II-XI intact bilaterally Extrem: General: Yes normal to inspection, Yes full ROM and Yes no clubbing, cyanosis or edema Psych: Appearance: grossly normal and well kempt Speech and movement: Normal speech and movement present Affect: normal affect Progress Note: A&P Assessment and plan (1) PAD (peripheral artery disease): Status: Acute Assessment and Plan: In short patient has nonhealing ulcer of the left leg. He has had prior endovascular intervention on the left lower extremity. He will need repeat intervention prior to amputation. Will discuss with patient tomorrow and schedule possibly for Monday. Thank you for allowing us to assist in his care. Time Spent With Patient Time: Total time managing care of this patient today ____ minutes. Procedures Date of Service Date of Service: 10/19/23 Quality Stroke Does the patient have a stroke diagnosis?: No VTE Prior VTE?: No VTE Risk Level:: Medical - moderate - high VTE Device Contraindication: Treatment Not Indicated VTE Drug Contraindication: N/A - Med Ordered
[2023-10-19 20:00] VITALS: BP 149/66; PULSE 77; RESP 18; TEMP 36.6; O2SAT 97
[2023-10-19] MEDS: Heparin Sodium,Porcine 5,000 UNIT/ML VIAL 5000 UNIT SUBCUT (20:23)
[2023-10-19 20:25] LABS: Glucose, Whole Blood 145 mg/dL (60-115)
[2023-10-19] MEDS: 0.9 % Sodium Chloride Flush 3 ML SYRINGE IVFLUSH (20:28)
[2023-10-19] MEDS: bisacodyL 5 MG TABLET.DR 10 MG PO (21:03)
[2023-10-20] MEDS: diphenhydrAMINE HCL 50 MG/ML VIAL 25 MG IVPUSH ×3 (00:10→17:57)
[2023-10-20] MEDS: Piperacillin Sodium/Tazobactam 3.375 GM in 0.9 % Sodium Chloride 50 ML IV ×4 (00:10→18:52)
[2023-10-20] MEDS: Morphine Sulfate 4 MG/ML CARTRIDGE IVPUSH ×6 (00:10→21:29)
[2023-10-20] MEDS: 0.9 % Sodium Chloride 1,000 ML 125 ML IVCONT ×2 (03:03→10:22)
[2023-10-20 03:04] VITALS: BP 140/66; PULSE 77; RESP 16; TEMP 36.5; O2SAT 96
[2023-10-20 07:22] LABS: Glucose, Whole Blood 128 mg/dL (60-115)
[2023-10-20 07:49] VITALS: BP 152/68; PULSE 80; RESP 14; TEMP 36.4; O2SAT 95
[2023-10-20 08:11] LABS: Hematocrit 33.3 % (42.0-52.0); Hemoglobin 10.3 g/dl (14.0-18.0); Mean Corpuscular HGB Conc 30.9 g/dl (31.0-36.0); Mean Corpuscular Hemoglobin 25.7 pg (27.0-33.0); Mean Platelet Volume 9.7 fL (9.4-12.4); Platelet Count 281 X10*3/uL (160-400); Red Blood Count 4.01 X10*6/uL (4.60-5.80); Red Cell Distribution Width 15.8 % (11.0-16.0)
[2023-10-20 08:23] LABS: Vancomycin Trough 11.8 mcg/mL (10.0-20.0)
[2023-10-20 08:25] LABS: Anion Gap 13 (12-20); Blood Urea Nitrogen 11 mg/dL (9-16); Calcium 8.5 mg/dL (8.4-10.2); Carbon Dioxide 24 mmol/L (22-29); Chloride 105 mmol/L (96-108); Creatinine Clr Calc Pharmacy 126.3; Estimated Glomerular Filt Rate > 60; Glucose Random 109 mg/dL (60-115); Sodium 138 mmol/L (135-145)
[2023-10-20] MEDS: Acetaminophen 325 MG TABLET 975 MG PO (08:46)
[2023-10-20] MEDS: Heparin Sodium,Porcine 5,000 UNIT/ML VIAL 5000 UNIT SUBCUT ×2 (08:46→21:24)
--- NOTE | 2023-10-20 08:48 | HE.PHANOTE ---
RE: VANCO DOSING Based on random coming back as 11.8, sCr going down and indication of bone joint infection, dose was increased to 1750 mg q12h starting @1000 10/20/23 with predicted AUC of 584 and trough of 17.2. Nex random is scheduled @199910/21/23.
--- NOTE | 2023-10-20 09:57 | P.PNVS_ITS ---
Subjective Subjective Date of Service: 10/20/23 Patient reports: no new complaints and feels better Interval history: Very pleasant 58-year-old gentleman presents for follow-up regarding nonhealing left great toe ulcer. He had undergone noninvasive testing. He does continue to have a fair amount of pain but is doing fairly well today. He is now on antibiotics relatively comfortable. He now presents for routine follow-up. Physical Exam Vital Signs: Vital Signs: Last Vital Signs Temp 97.6 F 10/20/23 07:49 Pulse 80 10/20/23 07:49 Resp 14 10/20/23 07:49 BP 152/68 H 10/20/23 07:49 Pulse Ox 95 10/20/23 07:49 O2 Del Method Room Air 10/20/23 07:49 BMI result Body Mass Index 32.4 Const: General: cooperative, healthy appearing and no acute distress Orientation/consciousness: oriented to person, oriented to place and oriented to time HEENT: Head: Yes normal to inspection Neck: Carotids: no bruits Chest: Chest palpation & inspection: normal inspection of the chest Resp: Effort & Inspection: normal respiratory effort and able to speak in complete sentences Auscultation: clear to auscultation bilaterally Cardio: Rate: regular rate Heart sounds: S1 normal heart sound present and S2 normal heart sound present GI: Inspection: Yes normal to inspection Skin: Other: Left great toe nonhealing ulcer. Left 5th toe dry gangrene General skin exam: no rashes or lesions noted Neuro: General: oriented to person, oriented to place, oriented to time and CN's II-XI intact bilaterally Extrem: General: Yes normal to inspection, Yes full ROM and Yes no clubbing, cyanosis or edema Psych: Appearance: grossly normal and well kempt Speech and movement: Normal speech and movement present Affect: normal affect Progress Note: A&P Assessment and plan (1) Peripheral arterial disease: Status: Acute Assessment and Plan: Patient notes leg pain when walking distances. I have discussed the pathophysiology of peripheral vascular disease with the patient. I have also discussed risk factor modification. I have reviewed the patient's arterial testing which reveals left SFA disease. the patient would benefit from a left leg endovascular peripheral angiogram with possible angioplasty, stent, and/or atherectomy. This has been discussed in detail with the patient along with risks, benefits, and complications. This includes but is not limited to bleeding, infection, heart attack, need for emergent surgical repair, limb ische conner, blood vessel damage, bleeding, puncture, kidney injury, bruising, allergic reaction, and skin reaction. The patient demonstrates a clear understanding. We will schedule for the next appropriate time. Thank you for allowing us to assist in this patient's care. Time Spent With Patient Time: Total time managing care of this patient today ____ minutes. Procedures Date of Service Date of Service: 10/20/23 Quality Stroke Does the patient have a stroke diagnosis?: No VTE Prior VTE?: No VTE Risk Level:: Medical - moderate - high VTE Device Contraindication: Treatment Not Indicated VTE Drug Contraindication: N/A - Med Ordered
[2023-10-20 10:01] VITALS: BP 160/72; PULSE 79; RESP 14; TEMP 36.6; O2SAT 97
[2023-10-20] MEDS: vancomycin HCL 1,000 MG, vancomycin HCL 750 MG in 0.9 % Sodium Chloride 500 ML 267.5 MG IV ×2 (10:22→21:25)
[2023-10-20 11:40] LABS: Glucose, Whole Blood 164 mg/dL (60-115)
[2023-10-20] MEDS: Insulin Lispro 100 UNIT/ML 3 ML VIAL SUBCUT ×2 (11:56→17:56)
--- NOTE | 2023-10-20 13:06 | P.PNIM_ITS ---
Subjective Subjective Date of Service: 10/20/23 Interval History: Seen and evaluated this morning complaining of pain in left foot denies fever or chills Plan for angiogram on Monday no other overnight events Review of Systems Review of Systems: Yes all other systems are reviewed and are negative Physical Exam 2 Vital Signs: Vital Signs: Last Vital Signs Temp 97.8 F 10/20/23 10:01 Pulse 79 10/20/23 10:01 Resp 14 10/20/23 10:01 BP 160/72 H 10/20/23 10:01 Pulse Ox 97 10/20/23 10:01 O2 Del Method Room Air 10/20/23 10:01 BMI result Body Mass Index 32.4 Const: Other: Constitutional : Awake, interactive, not in distress Neck : Normal inspection, Supple Cardiovascular : RRR, no JVP, no lower extremity edema Respiratory : good bilateral air entry, no crackles, wheezes or rhonchi Gastrointestinal: soft, lax, Normal bowel sounds, Non tender Skin : Warm, Dry, LLE cold , big toe and little toe blackish discoloration . dry gangrene Neurological : Alert & oriented x3, No focal deficit Objective Data Active Medications Acetaminophen (Acetaminophen 325 Mg Tablet) 975 mg PO Q6H PRN PRN Reason: Pain, Mild (Pain Scale 1-3) Last Admin: 10/20/23 08:46 Dose: 975 mg Documented By: ELIZABETH Bisacodyl (Bisacodyl 5 Mg Tablet.Dr) 10 mg PO BEDTIME [facility] Last Admin: 10/19/23 21:13 Dose: Not Given Documented By: LUZ ELENA Non-Admin Reason: given at 2039 Dextrose (Dextrose 50 % 25 Gm/50 Ml Syringe) 25 gm IVPUSH Q15M PRN; Protocol PRN Reason: per Hypoglycemia Standing Ord. Diphenhydramine HCl (Diphenhydramine Hcl 50 Mg/Ml Vial) 25 mg IVPUSH Q6H PRN PRN Reason: Itching Last Admin: 10/20/23 09:07 Dose: 25 mg Documented By: GENEVIEVE Glucose (Glucose Gel 15 Gm Gel..Gram.) 15 gm PO Q15M PRN; Protocol PRN Reason: per Hypoglycemia Standing Ord. Heparin Sodium (Porcine) (Heparin Sodium,Porcine 5,000 Unit/Ml Vial) 5,000 unit SUBCUT Q12H [facility] Last Admin: 10/20/23 08:46 Dose: 5,000 unit Documented By: ELIZABETH Sodium Chloride (Ns) 1,000 mls @ 125 mls/hr IVCONT .Q8H [facility] Last Admin: 10/20/23 10:22 Dose: 125 mls/hr Documented By: ELIZABETH Piperacillin Sod/Tazobactam (Sod 3.375 gm/ Sodium Chloride) 50 mls @ 100 mls/hr IV Q6H [facility] Last Admin: 10/20/23 12:32 Dose: 100 mls/hr Documented By: ELIZABETH Vancomycin HCl 1,000 mg/Vancomycin HCl 750 mg/ Sodium Chloride 535 mls @ 267.5 mls/hr IV Q12H [facility] Last Infusion: 10/20/23 12:34 Dose: Infused Documented By: ELIZABETH Insulin Human Lispro (Insulin Lispro 100 Unit/Ml 3 Ml Vial) 0 unit SUBCUT QIDACHS [facility]; Protocol Last Admin: 10/20/23 11:56 Dose: 2 unit Documented By: ELIZABETH Morphine Sulfate (Morphine Sulfate 4 Mg/Ml Cartridge) 4 mg IVPUSH Q3H PRN; Protocol PRN Reason: Pain, Severe (Pain Scale 7-10) Pharmacy Consult (Consult Rx Vancomycin Dosing) 1 each MISCELLANE DAILY PRN PRN Reason: Consult order Sodium Chloride (0.9 % Sodium Chloride Flush 3 Ml Syringe) 3 ml IVFLUSH QSHIFT [facility] Last Admin: 10/20/23 07:19 Dose: Not Given Documented By: ELIZABETH Non-Admin Reason: IV Running Labs 10/20/23 07:47 10/20/23 07:47 Labs: Laboratory Results - last 24 hr 10/19/23 10/19/23 10/20/23 16:17 20:19 07:13 MCV MCH MCHC RDW Plt Count MPV Absolute Nucleated RBC Nucleated RBC % (auto) Anion Gap Estim Creat Clear Calc Estimated GFR POC Glucose 146 H 145 H 128 H Random Glucose Calcium Vancomycin Trough 10/20/23 10/20/23 10/20/23 07:47 07:47 07:47 MCV 83.0 MCH 25.7 L MCHC 30.9 L RDW 15.8 Plt Count 281 MPV 9.7 Absolute Nucleated RBC 0.000 Nucleated RBC % (auto) 0.0 Anion Gap 13 Estim Creat Clear Calc 126.3 126.3 Estimated GFR > 60 > 60 POC Glucose Random Glucose 109 Calcium 8.5 Vancomycin Trough 11.8 10/20/23 11:35 MCV MCH MCHC RDW Plt Count MPV Absolute Nucleated RBC Nucleated RBC % (auto) Anion Gap Estim Creat Clear Calc Estimated GFR POC Glucose 164 H Random Glucose Calcium Vancomycin Trough Microbiology Microbiology Results: Microbiology 10/18/23 19:35 Blood Culture - Preliminary Blood - Venous No growth after 24 hours. 10/18/23 19:25 Blood Culture - Preliminary Blood - Venous No growth after 24 hours. 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 Pt will be admitted to the hospital treatment and further evaluation of dry gangrene of toes on left foot. Big and little Toes dry gangrene 2/2 PAD and uncontrolled type 2 diabetes Runoff CTA found in left leg severe SFA and popliteal disease with possible emboli in the profunda femoris and popliteal artery; vascular surgery to do angiogram Continue Zosyn and vanco, started 10/18/2023 pending final cultures Vascular surgery following for likely amputation next week follow Vanco trough CAD Continue statin, aspirin, Plavix Uncontrolled type 2 diabetes with neuropathy A1c 8.2 Sliding-scale insulin, Lantus Diabetic diet Continue Farxiga, gabapentin HTN Continue amlodipine, metoprolol, losartan, spironolactone GERD Continue PPI Mood disorder Continue sertraline Full Code DVT Prophylaxis: Lovenox Pt will require a hospitalization overnightfor treatment of?worsening chronic left toe wounds with dry gangrene. for administration of IV antibiotics, IV analgesics, pending surgical procedure. Quality Stroke Does the patient have a stroke diagnosis?: No VTE Prior VTE?: No VTE Risk Level:: Medical - moderate - high VTE Device Contraindication: Treatment Not Indicated VTE Drug Contraindication: N/A - Med Ordered
[2023-10-20 16:24] LABS: Glucose, Whole Blood 186 mg/dL (60-115)
[2023-10-20 19:09] VITALS: BP 153/66; PULSE 83; RESP 18; TEMP 36.5; O2SAT 95
[2023-10-20 21:19] LABS: Glucose, Whole Blood 142 mg/dL (60-115)
[2023-10-20] MEDS: bisacodyL 5 MG TABLET.DR 10 MG PO (21:24)
[2023-10-21] VITALS (7 sets, daily range): BP systolic 133–179; BP diastolic 74–81; PULSE 82–87; RESP 16–20; TEMP 36.6–36.7; O2SAT 95–97
[2023-10-21] MEDS: Morphine Sulfate 4 MG/ML CARTRIDGE IVPUSH ×5 (00:33→21:26)
[2023-10-21] MEDS: diphenhydrAMINE HCL 50 MG/ML VIAL 25 MG IVPUSH (00:33)
[2023-10-21] MEDS: Piperacillin Sodium/Tazobactam 3.375 GM in 0.9 % Sodium Chloride 50 ML IV ×4 (00:36→18:39)
[2023-10-21] MEDS: hydrOXYzine HCL 50 MG TABLET PO ×3 (01:20→15:31)
[2023-10-21 06:24] LABS: Creatinine Clr Calc Pharmacy 115.5; Estimated Glomerular Filt Rate > 60
[2023-10-21 07:26] LABS: Glucose, Whole Blood 159 mg/dL (60-115)
[2023-10-21] MEDS: Insulin Lispro 100 UNIT/ML 3 ML VIAL SUBCUT ×4 (07:56→21:25)
[2023-10-21] MEDS: Acetaminophen 325 MG TABLET 975 MG PO (07:57)
[2023-10-21] MEDS: Heparin Sodium,Porcine 5,000 UNIT/ML VIAL 5000 UNIT SUBCUT ×2 (07:58→21:26)
[2023-10-21 08:06] LABS: Iron 37 mcg/dL (45-160); Percent Iron Saturation 15 % (15-50); Total Iron Binding Capacity 255 mcg/dL (228-428); Unsaturated Iron Binding 218 ug/dL
[2023-10-21] MEDS: 0.9 % Sodium Chloride Flush 3 ML SYRINGE IVFLUSH ×2 (08:06→15:33)
[2023-10-21] MEDS: vancomycin HCL 1,000 MG, vancomycin HCL 750 MG in 0.9 % Sodium Chloride 500 ML 267.5 MG IV ×2 (10:24→21:32)
[2023-10-21 11:17] LABS: Glucose, Whole Blood 167 mg/dL (60-115)
--- NOTE | 2023-10-21 12:07 | P.PNIM_ITS ---
Subjective Subjective Date of Service: 10/21/23 Interval History: Seen and evaluated this morning complaining of pain in left foot denies fever or chills Plan for angiogram on Monday no other overnight events Physical Exam 2 Vital Signs: Vital Signs: Last Vital Signs Temp 98.1 F 10/21/23 12:00 Pulse 82 10/21/23 12:00 Resp 18 10/21/23 12:00 BP 165/75 H 10/21/23 12:00 Pulse Ox 96 10/21/23 12:00 O2 Del Method Room Air 10/21/23 12:00 BMI result Body Mass Index 32.4 Const: Other: Constitutional : Awake, interactive, not in distress Neck : Normal inspection, Supple Cardiovascular : RRR, no JVP, no lower extremity edema Respiratory : good bilateral air entry, no crackles, wheezes or rhonchi Gastrointestinal: soft, lax, Normal bowel sounds, Non tender Skin : Warm, Dry, LLE cold , big toe and little toe blackish discoloration . dry gangrene Neurological : Alert & oriented x3, No focal deficit Objective Data Active Medications Acetaminophen (Acetaminophen 325 Mg Tablet) 975 mg PO Q6H PRN PRN Reason: Pain, Mild (Pain Scale 1-3) Last Admin: 10/21/23 07:57 Dose: 975 mg Documented By: RAISA Bisacodyl (Bisacodyl 5 Mg Tablet.Dr) 10 mg PO BEDTIME [facility] Last Admin: 10/20/23 21:24 Dose: 10 mg Documented By: DOBROOlga Lidia Dextrose (Dextrose 50 % 25 Gm/50 Ml Syringe) 25 gm IVPUSH Q15M PRN; Protocol PRN Reason: per Hypoglycemia Standing Ord. Glucose (Glucose Gel 15 Gm Gel..Gram.) 15 gm PO Q15M PRN; Protocol PRN Reason: per Hypoglycemia Standing Ord. Heparin Sodium (Porcine) (Heparin Sodium,Porcine 5,000 Unit/Ml Vial) 5,000 unit SUBCUT Q12H [facility] Last Admin: 10/21/23 07:58 Dose: 5,000 unit Documented By: RAISA Hydroxyzine HCl (Hydroxyzine Hcl 50 Mg Tablet) 50 mg PO Q6H PRN PRN Reason: Itching Last Admin: 10/21/23 07:58 Dose: 50 mg Documented By: RAISA Piperacillin Sod/Tazobactam (Sod 3.375 gm/ Sodium Chloride) 50 mls @ 100 mls/hr IV Q6H [facility] Last Infusion: 10/21/23 08:57 Dose: Infused Documented By: RAISA Vancomycin HCl 1,000 mg/Vancomycin HCl 750 mg/ Sodium Chloride 535 mls @ 267.5 mls/hr IV Q12H [facility] Last Admin: 10/21/23 10:24 Dose: 267.5 mls/hr Documented By: RAISA Insulin Human Lispro (Insulin Lispro 100 Unit/Ml 3 Ml Vial) 0 unit SUBCUT QIDACHS [facility]; Protocol Last Admin: 10/21/23 11:58 Dose: 2 unit Documented By: RAISA Morphine Sulfate (Morphine Sulfate 4 Mg/Ml Cartridge) 4 mg IVPUSH Q3H PRN; Protocol PRN Reason: Pain, Severe (Pain Scale 7-10) Last Admin: 10/21/23 10:26 Dose: 4 mg Documented By: RAISA Pharmacy Consult (Consult Rx Vancomycin Dosing) 1 each MISCELLANE DAILY PRN PRN Reason: Consult order Sodium Chloride (0.9 % Sodium Chloride Flush 3 Ml Syringe) 3 ml IVFLUSH QSHIFT [facility] Last Admin: 10/21/23 08:06 Dose: 3 ml Documented By: RAISA Labs 10/20/23 07:47 10/21/23 05:25 Labs: Laboratory Results - last 24 hr 10/20/23 10/20/23 10/21/23 16:12 21:06 05:25 Hold Purple Top SEE NOTE Estim Creat Clear Calc 115.5 Estimated GFR > 60 POC Glucose 186 H 142 H Iron 37 L TIBC 255 % Saturation 15 Unsat Iron Binding 218 10/21/23 10/21/23 07:05 11:14 Hold Purple Top Estim Creat Clear Calc Estimated GFR POC Glucose 159 H 167 H Iron TIBC % Saturation Unsat Iron Binding Microbiology Microbiology Results: Microbiology 10/18/23 19:35 Blood Culture - Preliminary Blood - Venous No growth after 48 hours. 10/18/23 19:25 Blood Culture - Preliminary Blood - Venous No growth after 48 hours. 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 Pt will be admitted to the hospital treatment and further evaluation of dry gangrene of toes on left foot. Big and little Toes dry gangrene 2/2 PAD and uncontrolled type 2 diabetes Runoff CTA found in left leg severe SFA and popliteal disease with possible emboli in the profunda femoris and popliteal artery; vascular surgery to do angiogram Monday morning Continue Zosyn and vanco, started 10/18/2023 pending final cultures Vascular surgery following for likely amputation next week follow Vanco trough CAD Continue statin, aspirin, Plavix Uncontrolled type 2 diabetes with neuropathy A1c 8.2 Sliding-scale insulin, Lantus Diabetic diet Continue Farxiga, gabapentin HTN Continue amlodipine, metoprolol, losartan, spironolactone GERD Continue PPI Mood disorder Continue sertraline Full Code DVT Prophylaxis: Lovenox Pt will require a hospitalization overnightfor treatment of?worsening chronic left toe wounds with dry gangrene. for administration of IV antibiotics, IV analgesics, pending surgical procedure. Quality Stroke Does the patient have a stroke diagnosis?: No VTE Prior VTE?: No VTE Risk Level:: Medical - moderate - high VTE Device Contraindication: Treatment Not Indicated VTE Drug Contraindication: N/A - Med Ordered
[2023-10-21 16:44] LABS: Glucose, Whole Blood 228 mg/dL (60-115)
--- NOTE | 2023-10-21 18:16 | PC.NURSE ---
This Nurse heard a thump,found pt.on the bathroom floor.Pt. stated he slipped off the wheelchair and lower himself down. Pt. alert and oriented, denies hitting head, left ankle abrasion noted. Thorough assessment done, provider notified.
[2023-10-21 21:09] LABS: Glucose, Whole Blood 192 mg/dL (60-115)
[2023-10-21] MEDS: bisacodyL 5 MG TABLET.DR 10 MG PO (21:25)
[2023-10-21 21:42] LABS: Vancomycin Random 19.6 mcg/mL (15-20)
[2023-10-22] MEDS: Morphine Sulfate 4 MG/ML CARTRIDGE IVPUSH ×5 (01:30→21:49)
[2023-10-22] MEDS: Piperacillin Sodium/Tazobactam 3.375 GM in 0.9 % Sodium Chloride 50 ML IV ×4 (01:32→21:48)
[2023-10-22] MEDS: Gabapentin 600 MG TABLET PO ×4 (01:46→21:48)
[2023-10-22 06:02] LABS: Creatinine Clr Calc Pharmacy 110.1; Estimated Glomerular Filt Rate > 60
[2023-10-22 06:41] VITALS: BP 144/83; PULSE 87; RESP 16
[2023-10-22 07:27] LABS: Glucose, Whole Blood 179 mg/dL (60-115)
[2023-10-22 07:46] VITALS: BP 147/67; PULSE 84; RESP 14; TEMP 36.1; O2SAT 96
[2023-10-22] MEDS: Heparin Sodium,Porcine 5,000 UNIT/ML VIAL 5000 UNIT SUBCUT ×2 (08:20→21:47)
[2023-10-22] MEDS: Insulin Lispro 100 UNIT/ML 3 ML VIAL SUBCUT ×4 (08:21→21:47)
[2023-10-22] MEDS: 0.9 % Sodium Chloride Flush 3 ML SYRINGE IVFLUSH ×2 (09:04→15:41)
[2023-10-22 10:45] VITALS: RESP 18
[2023-10-22] MEDS: vancomycin HCL 1,500 MG in 0.9 % Sodium Chloride 500 ML 333.33 MG IV ×2 (10:46→22:00)
[2023-10-22 11:12] LABS: Glucose, Whole Blood 226 mg/dL (60-115)
[2023-10-22] MEDS: Spironolactone 25 MG TABLET PO (11:24)
[2023-10-22] MEDS: Metoprolol Succinate ER 50 MG TAB.ER.24H PO (11:24)
--- NOTE | 2023-10-22 11:47 | P.PNIM_ITS ---
Subjective Subjective Date of Service: 10/22/23 Interval History: Seen and evaluated this morning complaining of pain in left foot, better controlled denies fever or chills Plan for angiogram tomorrow no other overnight events Review of Systems Review of Systems: Yes all other systems are reviewed and are negative Physical Exam 2 Vital Signs: Vital Signs: Last Vital Signs Temp 97.0 F 10/22/23 07:46 Pulse 84 10/22/23 07:46 Resp 18 10/22/23 10:45 BP 147/67 H 10/22/23 07:46 Pulse Ox 96 10/22/23 07:46 O2 Del Method Room Air 10/22/23 07:46 BMI result Body Mass Index 32.4 Const: Other: Constitutional : Awake, interactive, not in distress Neck : Normal inspection, Supple Cardiovascular : RRR, no JVP, no lower extremity edema Respiratory : good bilateral air entry, no crackles, wheezes or rhonchi Gastrointestinal: soft, lax, Normal bowel sounds, Non tender Skin : Warm, Dry, LLE cold , big toe and little toe blackish discoloration . dry gangrene Neurological : Alert & oriented x3, No focal deficit Objective Data Active Medications Acetaminophen (Acetaminophen 325 Mg Tablet) 975 mg PO Q6H PRN PRN Reason: Pain, Mild (Pain Scale 1-3) Last Admin: 10/21/23 07:57 Dose: 975 mg Documented By: RAISA Amiodarone HCl (Amiodarone Hcl 200 Mg Tablet) 200 mg PO BID [facility] Aspirin (Aspirin 81 Mg Tab.Chew) 81 mg PO DAILY [facility] Atorvastatin Calcium (Atorvastatin Calcium 80 Mg Tablet) 80 mg PO BEDTIME [facility] Bisacodyl (Bisacodyl 5 Mg Tablet.Dr) 10 mg PO BEDTIME [facility] Last Admin: 10/21/23 21:25 Dose: 10 mg Documented By: IFEANYI Clopidogrel Bisulfate (Clopidogrel Bisulfate 75 Mg Tablet) 75 mg PO DAILY [facility] Dextrose (Dextrose 50 % 25 Gm/50 Ml Syringe) 25 gm IVPUSH Q15M PRN; Protocol PRN Reason: per Hypoglycemia Standing Ord. Famotidine (Famotidine 20 Mg Tablet) 40 mg PO BID@0630,1630 [facility] Gabapentin (Gabapentin 600 Mg Tablet) 600 mg PO TID [facility] Last Admin: 10/22/23 08:20 Dose: 600 mg Documented By: RAISA Glucose (Glucose Gel 15 Gm Gel..Gram.) 15 gm PO Q15M PRN; Protocol PRN Reason: per Hypoglycemia Standing Ord. Heparin Sodium (Porcine) (Heparin Sodium,Porcine 5,000 Unit/Ml Vial) 5,000 unit SUBCUT Q12H [facility] Last Admin: 10/22/23 08:20 Dose: 5,000 unit Documented By: RAISA Hydroxyzine HCl (Hydroxyzine Hcl 50 Mg Tablet) 50 mg PO Q6H PRN PRN Reason: Itching Last Admin: 10/21/23 15:31 Dose: 50 mg Documented By: RAISA Vancomycin HCl 1,500 mg/ (Sodium Chloride) 500 mls @ 333.333 mls/hr IV Q12H [facility] Last Admin: 10/22/23 10:46 Dose: 333.33 mls/hr Documented By: RAISA Piperacillin Sod/Tazobactam (Sod 3.375 gm/ Sodium Chloride) 50 mls @ 100 mls/hr IV Q6H [facility] Last Infusion: 10/22/23 10:45 Dose: Infused Documented By: RAISA Insulin Human Lispro (Insulin Lispro 100 Unit/Ml 3 Ml Vial) 0 unit SUBCUT QIDACHS [facility]; Protocol Last Admin: 10/22/23 11:25 Dose: 4 unit Documented By: RAISA Losartan Potassium (Losartan Potassium 25 Mg Tablet) 25 mg PO DAILY [facility]; Protocol Metoprolol Succinate (Metoprolol Succinate Er 50 Mg Tab.Er.24h) 50 mg PO DAILY [facility]; Protocol Last Admin: 10/22/23 11:24 Dose: 50 mg Documented By: RAISA Morphine Sulfate (Morphine Sulfate 4 Mg/Ml Cartridge) 4 mg IVPUSH Q3H PRN; Protocol PRN Reason: Pain, Severe (Pain Scale 7-10) Last Admin: 10/22/23 10:45 Dose: 4 mg Documented By: RAISA Pharmacy Consult (Consult Rx Vancomycin Dosing) 1 each MISCELLANE DAILY PRN PRN Reason: Consult order Sertraline HCl (Sertraline Hcl 25 Mg Tablet) 75 mg PO DAILY [facility] Sodium Chloride (0.9 % Sodium Chloride Flush 3 Ml Syringe) 3 ml IVFLUSH QSHIFT [facility] Last Admin: 10/22/23 09:04 Dose: 3 ml Documented By: RAISA Spironolactone (Spironolactone 25 Mg Tablet) 25 mg PO DAILY [facility]; Protocol Last Admin: 10/22/23 11:24 Dose: 25 mg Documented By: RAISA Tramadol HCl (Tramadol Hcl 50 Mg Tablet) 50 mg PO Q6H PRN PRN Reason: Pain, Moderate(Pain Scale 4-6) Labs 10/20/23 07:47 10/22/23 05:18 Labs: Laboratory Results - last 24 hr 10/21/23 10/21/23 10/21/23 16:31 20:54 21:13 Hold Purple Top Estim Creat Clear Calc Estimated GFR POC Glucose 228 H 192 H Random Vancomycin 19.6 10/22/23 10/22/23 10/22/23 05:18 07:17 11:03 Hold Purple Top SEE NOTE Estim Creat Clear Calc 110.1 Estimated GFR > 60 POC Glucose 179 H 226 H Random Vancomycin Assessment and Plan (1) Dry gangrene: Status: Acute (2) Cellulitis of foot, left: Status: Acute Plan Pt is a [id number] with a PMH significant for?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 Pt will be admitted to the hospital treatment and further evaluation of dry gangrene of toes on left foot. Big and little Toes dry gangrene 2/2 PAD and uncontrolled type 2 diabetes Runoff CTA found in left leg severe SFA and popliteal disease with possible emboli in the profunda femoris and popliteal artery; vascular surgery to do angiogram tomorrow Continue Zosyn and vanco, started 10/18/2023 pending final cultures Vascular surgery following for likely amputation next week follow Vanco trough NPO overnight CAD Continue statin, aspirin, Plavix Uncontrolled type 2 diabetes with neuropathy A1c 8.2 Sliding-scale insulin, Lantus Diabetic diet Continue Farxiga, gabapentin HTN Continue amlodipine, metoprolol, losartan, spironolactone GERD Continue PPI Mood disorder Continue sertraline Full Code DVT Prophylaxis: Lovenox Pt will require a hospitalization overnightfor treatment of?worsening chronic left toe wounds with dry gangrene. for administration of IV antibiotics, IV analgesics, pending surgical procedure. Quality Stroke Does the patient have a stroke diagnosis?: No VTE Prior VTE?: No VTE Risk Level:: Medical - moderate - high VTE Device Contraindication: Treatment Not Indicated VTE Drug Contraindication: N/A - Med Ordered
[2023-10-22] MEDS: traMADoL HCL 50 MG TABLET PO (12:55)
[2023-10-22 15:14] VITALS: BP 159/78; PULSE 75; RESP 18; TEMP 36.3; O2SAT 96
[2023-10-22] MEDS: Famotidine 20 MG TABLET 40 MG PO (15:40)
[2023-10-22 16:28] LABS: Glucose, Whole Blood 229 mg/dL (60-115)
[2023-10-22 17:06] VITALS: RESP 18
[2023-10-22 20:35] LABS: Glucose, Whole Blood 249 mg/dL (60-115)
[2023-10-22 21:04] LABS: Vancomycin Random 16.4 mcg/mL (15-20)
[2023-10-22] MEDS: Atorvastatin Calcium 80 MG TABLET PO (21:48)
[2023-10-22] MEDS: bisacodyL 5 MG TABLET.DR 10 MG PO (21:48)
[2023-10-22] MEDS: Amiodarone HCL 200 MG TABLET PO (21:49)
[2023-10-23] VITALS (11 sets, daily range): BP systolic 131–178; BP diastolic 63–83; PULSE 67–81; RESP 16–18; TEMP 36.2–36.9; O2SAT 96–99
[2023-10-23] MEDS: Morphine Sulfate 4 MG/ML CARTRIDGE IVPUSH ×6 (01:14→20:36)
[2023-10-23] MEDS: Piperacillin Sodium/Tazobactam 3.375 GM in 0.9 % Sodium Chloride 50 ML IV ×2 (04:35→09:27)
[2023-10-23] MEDS: Famotidine 20 MG TABLET 40 MG PO ×2 (05:36→17:30)
[2023-10-23 06:37] LABS: Creatinine Clr Calc Pharmacy 101.8; Estimated Glomerular Filt Rate > 60
[2023-10-23 07:16] LABS: Glucose, Whole Blood 242 mg/dL (60-115)
[2023-10-23] MEDS: Insulin Lispro 100 UNIT/ML 3 ML VIAL SUBCUT ×3 (07:56→21:12)
[2023-10-23] MEDS: Heparin Sodium,Porcine 5,000 UNIT/ML VIAL 5000 UNIT SUBCUT (07:57)
[2023-10-23] MEDS: Losartan Potassium 25 MG TABLET PO (07:58)
[2023-10-23] MEDS: Sertraline HCL 25 MG TABLET 75 MG PO (07:58)
[2023-10-23] MEDS: Gabapentin 600 MG TABLET PO ×3 (07:58→20:10)
[2023-10-23] MEDS: Spironolactone 25 MG TABLET PO (07:58)
[2023-10-23] MEDS: Metoprolol Succinate ER 50 MG TAB.ER.24H PO (07:59)
[2023-10-23] MEDS: Amiodarone HCL 200 MG TABLET PO ×2 (07:59→20:10)
[2023-10-23] MEDS: 0.9 % Sodium Chloride Flush 3 ML SYRINGE IVFLUSH ×2 (07:59→20:36)
[2023-10-23] MEDS: Aspirin 81 MG TAB.CHEW PO (07:59)
[2023-10-23] MEDS: Clopidogrel Bisulfate 75 MG TABLET PO (07:59)
--- NOTE | 2023-10-23 09:53 | HO.PM.IMPN ---
Subjective Subjective Date of Service: 10/23/23 Interval History: Seen and evaluated this morning improved pain in left foot, better controlled denies fever or chills Plan for angiogram today no other overnight events Review of Systems Review of Systems: Yes all other systems are reviewed and are negative Physical Exam Vital Signs: Vital Signs: Last Vital Signs Temp 98 F 10/23/23 07:05 Pulse 81 10/23/23 07:05 Resp 17 10/23/23 07:05 BP 162/77 H 10/23/23 07:05 Pulse Ox 96 10/23/23 07:05 O2 Del Method Room Air 10/23/23 07:05 BMI result Body Mass Index 32.4 Const: Other: Constitutional : Awake, interactive, not in distress Neck : Normal inspection, Supple Cardiovascular : RRR, no JVP, no lower extremity edema Respiratory : good bilateral air entry, no crackles, wheezes or rhonchi Gastrointestinal: soft, lax, Normal bowel sounds, Non tender Skin : Warm, Dry, LLE cold , big toe and little toe blackish discoloration . dry gangrene Neurological : Alert & oriented x3, No focal deficit Objective Data Active Medications Acetaminophen (Acetaminophen 325 Mg Tablet) 975 mg PO Q6H PRN PRN Reason: Pain, Mild (Pain Scale 1-3) Last Admin: 10/21/23 07:57 Dose: 975 mg Documented By: RAISA Amiodarone HCl (Amiodarone Hcl 200 Mg Tablet) 200 mg PO BID [facility] Last Admin: 10/23/23 07:59 Dose: 200 mg Documented By: DESMOND Aspirin (Aspirin 81 Mg Tab.Chew) 81 mg PO DAILY [facility] Last Admin: 10/23/23 07:59 Dose: 81 mg Documented By: DESMOND Atorvastatin Calcium (Atorvastatin Calcium 80 Mg Tablet) 80 mg PO BEDTIME [facility] Last Admin: 10/22/23 21:48 Dose: 80 mg Documented By: IFEANYI Bisacodyl (Bisacodyl 5 Mg Tablet.Dr) 10 mg PO BEDTIME [facility] Last Admin: 10/22/23 21:48 Dose: 10 mg Documented By: IFEANYI Clopidogrel Bisulfate (Clopidogrel Bisulfate 75 Mg Tablet) 75 mg PO DAILY [facility] Last Admin: 10/23/23 07:59 Dose: 75 mg Documented By: DESMOND Dextrose (Dextrose 50 % 25 Gm/50 Ml Syringe) 25 gm IVPUSH Q15M PRN; Protocol PRN Reason: per Hypoglycemia Standing Ord. Famotidine (Famotidine 20 Mg Tablet) 40 mg PO BID@0630,1630 [facility] Last Admin: 10/23/23 05:36 Dose: 40 mg Documented By: IFEANYI Gabapentin (Gabapentin 600 Mg Tablet) 600 mg PO TID [facility] Last Admin: 10/23/23 07:58 Dose: 600 mg Documented By: DESMOND Glucose (Glucose Gel 15 Gm Gel..Gram.) 15 gm PO Q15M PRN; Protocol PRN Reason: per Hypoglycemia Standing Ord. Heparin Sodium (Porcine) (Heparin Sodium,Porcine 5,000 Unit/Ml Vial) 5,000 unit SUBCUT Q12H [facility] Last Admin: 10/23/23 07:57 Dose: 5,000 unit Documented By: DESMOND Hydroxyzine HCl (Hydroxyzine Hcl 50 Mg Tablet) 50 mg PO Q6H PRN PRN Reason: Itching Last Admin: 10/21/23 15:31 Dose: 50 mg Documented By: RAISA Vancomycin HCl 1,500 mg/ (Sodium Chloride) 500 mls @ 333.333 mls/hr IV Q12H [facility] Last Infusion: 10/22/23 23:21 Dose: Infused Documented By: IFEANYI Piperacillin Sod/Tazobactam (Sod 3.375 gm/ Sodium Chloride) 50 mls @ 100 mls/hr IV Q6H [facility] Last Admin: 10/23/23 09:27 Dose: 100 mls/hr Documented By: DESMOND Insulin Human Lispro (Insulin Lispro 100 Unit/Ml 3 Ml Vial) 0 unit SUBCUT QIDACHS [facility]; Protocol Last Admin: 10/23/23 07:56 Dose: 4 unit Documented By: DESMOND Losartan Potassium (Losartan Potassium 25 Mg Tablet) 25 mg PO DAILY [facility]; Protocol Last Admin: 10/23/23 07:58 Dose: 25 mg Documented By: DESMOND Metoprolol Succinate (Metoprolol Succinate Er 50 Mg Tab.Er.24h) 50 mg PO DAILY [facility]; Protocol Last Admin: 10/23/23 07:59 Dose: 50 mg Documented By: DESMOND Morphine Sulfate (Morphine Sulfate 4 Mg/Ml Cartridge) 4 mg IVPUSH Q3H PRN; Protocol PRN Reason: Pain, Severe (Pain Scale 7-10) Last Admin: 10/23/23 07:56 Dose: 4 mg Documented By: DESMOND Pharmacy Consult (Consult Rx Vancomycin Dosing) 1 each MISCELLANE DAILY PRN PRN Reason: Consult order Sertraline HCl (Sertraline Hcl 25 Mg Tablet) 75 mg PO DAILY [facility] Last Admin: 10/23/23 07:58 Dose: 75 mg Documented By: DESMOND Sodium Chloride (0.9 % Sodium Chloride Flush 3 Ml Syringe) 3 ml IVFLUSH QSHIFT [facility] Last Admin: 10/23/23 07:59 Dose: 3 ml Documented By: DESMOND Spironolactone (Spironolactone 25 Mg Tablet) 25 mg PO DAILY [facility]; Protocol Last Admin: 10/23/23 07:58 Dose: 25 mg Documented By: DESMOND Tramadol HCl (Tramadol Hcl 50 Mg Tablet) 50 mg PO Q6H PRN PRN Reason: Pain, Moderate(Pain Scale 4-6) Last Admin: 10/22/23 12:55 Dose: 50 mg Documented By: RAISA Labs 10/20/23 07:47 10/23/23 05:08 Labs: Laboratory Results - last 24 hr 10/22/23 10/22/23 10/22/23 11:03 16:09 20:19 Hold Purple Top Estim Creat Clear Calc Estimated GFR POC Glucose 226 H 229 H 249 H Random Vancomycin 10/22/23 10/23/23 10/23/23 20:31 05:08 07:05 Hold Purple Top SEE NOTE Estim Creat Clear Calc 101.8 Estimated GFR > 60 POC Glucose 242 H Random Vancomycin 16.4 Assessment and Plan (1) Dry gangrene: Status: Acute (2) Cellulitis of foot, left: Status: Acute (3) Peripheral arterial disease: Status: Acute Plan Pt is a [id number] with a PMH significant for?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 Pt will be admitted to the hospital treatment and further evaluation of dry gangrene of toes on left foot. Big and little Toes dry gangrene 2/2 PAD and uncontrolled type 2 diabetes Runoff CTA found in left leg severe SFA and popliteal disease with possible emboli in the profunda femoris and popliteal artery; vascular surgery to do angiogram today cultures negative Continue Vanco, started 10/18/2023 and dc Zosyn pending final cultures Vascular surgery following for likely amputation next week follow Vanco trough CAD Continue statin, aspirin, Plavix Uncontrolled type 2 diabetes with neuropathy A1c 8.2 Sliding-scale insulin, Lantus Diabetic diet Continue Farxiga, gabapentin HTN Continue amlodipine, metoprolol, losartan, spironolactone GERD Continue PPI Mood disorder Continue sertraline Full Code DVT Prophylaxis: Lovenox Pt will require a hospitalization overnightfor treatment of?worsening chronic left toe wounds with dry gangrene. for administration of IV antibiotics, IV analgesics, pending surgical procedure. Quality Stroke Does the patient have a stroke diagnosis?: No VTE Prior VTE?: No VTE Risk Level:: Medical - moderate - high VTE Device Contraindication: Treatment Not Indicated VTE Drug Contraindication: N/A - Med Ordered
--- NOTE | 2023-10-23 13:09 | W.PM.OPN ---
Operative Note Operative Note Date of Service: 10/23/23 Narrative: Angiogram report from [facility] Preoperative diagnosis: Atherosclerosis of left lower extremity with nonhealing ulcer Postoperative diagnosis: Same Procedure: 1. Ultrasound-guided right common femoral access 2. Aortogram with left lower extremity runoff 3. Left leg plasty anterior tibial posterior tibial and peroneal arteries along with popliteal artery Surgeon:Berto Sheppard M.D., FACS, RPVI Superintendent Construction:None Anesthesia: Local with moderate conscious sedation. Total intraservice moderate sedation time was 75 minutes. I monitored the patient's level of consciousness and physiologic status continuously throughout the procedure. Specimens:none Drains:none Estimated blood loss: Less than 10 ml Implant: Medtronic Impact DCB 5 x 60 Indications: Pleasant 58-year-old diabetic gentleman well known to me from prior right BKA presents for nonhealing ulcer of the left lower extremity. He now presents for endovascular intervention. The patient has signed the informed consent after reviewing risks, complications, benefits, and alternatives previously discussed with the patient. The patient was given the opportunity to ask any additional questions or voice any concerns. All questions were answered to the patient's satisfaction. Procedure in detail: Patient was brought to the angiography suite prior to which a time-out was called for patient identification and site verification. Bilateral groins were prepped and draped in the standard surgical fashion. Under ultrasound guidance right common femoral was punctured with micro puncture needle and wire. Subsequently a precision 4 Burmese sheath was then placed. Bentson wire was advanced to the level of the aorta. 4 Burmese Flush catheter was brought up and parked at the level of the renal arteries. Aortogram was then undertaken. Catheter was brought down to the level of the iliac bifurcation. Iliacs were subsequently imaged. Catheter was then brought in up and over to the left side SFA. Runoff study was then undertaken. It was recognized that he had some behind the knee popliteal along with the origin of all 3 below-knee vessels stenotic disease. At this time 5000 units of systemic heparin was administered. Up and over 6 Burmese sheath was then placed. We then brought a Glidewire Advantage down into the popliteal artery. We exchanged out for trail Blazer catheter. We then exchanged out for an 014 advantage wire. We placed this in the anterior tibial artery. We plasty this area with a 2 x 40 balloon. We then exchanged out for 3 x 40 balloon. We then redirected the wire down to the tibioperoneal trunk into the peroneal artery. This was plasty with a 3 x 40 balloon. It in a similar fashion we then went down into the posterior tibial artery. This was insufflated with a 3 x 40 balloon in 2 separate locations. We then turned our attention to the behind knee popliteal artery. We 1st plasty this area with a 5 x 40 balloon. We then plasty did with a 5 x 60 drug coated balloon. This was brought into position in under 3 minutes and insufflated for a total of 3 minutes in duration. Once this was all accomplished brought back to the ipsilateral side and StarClose closure device was then deployed. At the end the case sponge instrument counts were correct. Patient tolerated the procedure well. Returned to recovery with stable vitals. Interpretation of films: 1. Ultrasound demonstrates appropriate femoral puncture. Image of which was saved. 2. Aortogram demonstrates appropriate caliber aorta. Minimal disease. Appropriate take-off of the renals. 3. Iliac images demonstrate no significant disease 4. Left Leg Common femoral artery: No significant disease Profundus Femoris: No significant disease Superficial femoral artery: Mild to moderate disease Popliteal artery (p1,p2,p3): Popliteal had severe disease at the P2 segment Anterior tibial artery: Disease at the origin Peroneal artery: Disease at the origin Posterior tibial artery: Multifocal disease throughout Dorsalis pedis/plantar arch: Not present at all significant small-vessel disease Conclusion: 1. Successful plasty left anterior tibial posterior tibial, peroneal and popliteal arteries 2. Anticoagulation status: Continue with aspirin and Plavix This note is constructed using voice recognition software. While every effort has been made to ensure accuracy, kiln door repairer errors may have been included. Thank you for allowing me to participate in the care of your patient. Yours sincerely, Berto Sheppard MD, FACS, R.P.V.I.
[2023-10-23] MEDS: Acetaminophen 325 MG TABLET 975 MG PO (13:35)
--- NOTE | 2023-10-23 14:29 | MHC.CM.PN ---
EMR REVIEWED AND PER MD ROUNDS , PT NOT MEDICALLY CLEARED FOR DC (FEM-POP PLASTY TODAY) CM WILL CONTINUE TO FOLLOW FOR ANY CHANGE IN DC NEEDS/PLAN
[2023-10-23 14:34] LABS: Glucose, Whole Blood 220 mg/dL (60-115)
[2023-10-23] MEDS: vancomycin HCL 1,500 MG in 0.9 % Sodium Chloride 500 ML 333.33 MG IV (15:31)
--- NOTE | 2023-10-23 16:05 | HO.VASCPN ---
Subjective Subjective Date of Service: 10/23/23 Patient reports: pain is less Interval history: Pleasant 58-year-old gentleman status post angiogram with endovascular intervention. He has nonhealing ulcers of the left foot great toe and 5th toe. He is now for postprocedure follow-up. Physical Exam Vital Signs: Vital Signs: Last Vital Signs Temp 97.2 F 10/23/23 14:26 Pulse 67 10/23/23 14:26 Resp 18 10/23/23 14:26 BP 148/66 H 10/23/23 14:26 Pulse Ox 97 10/23/23 14:26 O2 Del Method Room Air 10/23/23 14:26 BMI result Body Mass Index 32.4 Const: General: cooperative, healthy appearing and no acute distress Orientation/consciousness: oriented to person, oriented to place and oriented to time HEENT: Head: Yes normal to inspection Neck: Carotids: no bruits Chest: Chest palpation & inspection: normal inspection of the chest Resp: Effort & Inspection: normal respiratory effort and able to speak in complete sentences Auscultation: clear to auscultation bilaterally Cardio: Rate: regular rate Heart sounds: S1 normal heart sound present and S2 normal heart sound present GI: Inspection: Yes normal to inspection Skin: Other: Nonhealing great and 5th toe General skin exam: no rashes or lesions noted Wounds: no wounds Neuro: General: oriented to person, oriented to place, oriented to time and CN's II-XI intact bilaterally Extrem: General: Yes normal to inspection, Yes full ROM and Yes no clubbing, cyanosis or edema Psych: Appearance: grossly normal and well kempt Speech and movement: Normal speech and movement present Affect: normal affect Progress Note: A&P Assessment and plan (1) Peripheral arterial disease: Status: Acute Assessment and Plan: In short patient has undergone angiogram. He has these nonhealing great and 5th toe ulcers. After much discussion we have decided to limit our resection to the left great toe and 5th toe. There is an underlying understanding that this may progress and he may require future transmetatarsal amputation are higher as the flow below the foot is not great with microvascular disease. In short patient will require left great and 5th toe amputation. Risks benefits complications were discussed in detail with the patient understood and would like to proceed. Time Spent With Patient Time: Total time managing care of this patient today ____ minutes. Procedures Date of Service Date of Service: 10/23/23 Quality Stroke Does the patient have a stroke diagnosis?: No VTE Prior VTE?: No VTE Risk Level:: Medical - moderate - high VTE Device Contraindication: Treatment Not Indicated VTE Drug Contraindication: N/A - Med Ordered
[2023-10-23 16:11] LABS: Glucose, Whole Blood 253 mg/dL (60-115)
[2023-10-23] MEDS: bisacodyL 5 MG TABLET.DR 10 MG PO (20:09)
[2023-10-23] MEDS: Atorvastatin Calcium 80 MG TABLET PO (20:10)
[2023-10-23 21:03] LABS: Glucose, Whole Blood 216 mg/dL (60-115)
[2023-10-24] VITALS (11 sets, daily range): BP systolic 137–176; BP diastolic 63–81; PULSE 70–98; RESP 16–20; TEMP 36.4–37; O2SAT 94–100
[2023-10-24] MEDS: Morphine Sulfate 4 MG/ML CARTRIDGE IVPUSH ×5 (03:34→21:34)
[2023-10-24] MEDS: vancomycin HCL 1,500 MG in 0.9 % Sodium Chloride 500 ML 333.33 MG IV ×2 (03:35→15:36)
[2023-10-24] MEDS: Famotidine 20 MG TABLET 40 MG PO ×2 (05:49→15:37)
[2023-10-24 07:13] LABS: Creatinine Clr Calc Pharmacy 104.1; Estimated Glomerular Filt Rate > 60
[2023-10-24 07:40] LABS: Glucose, Whole Blood 200 mg/dL (60-115)
[2023-10-24] MEDS: Insulin Lispro 100 UNIT/ML 3 ML VIAL SUBCUT ×3 (08:59→20:56)
[2023-10-24] MEDS: 0.9 % Sodium Chloride Flush 3 ML SYRINGE IVFLUSH ×3 (08:59→20:56)
[2023-10-24] MEDS: Sertraline HCL 25 MG TABLET 75 MG PO (09:00)
[2023-10-24] MEDS: Spironolactone 25 MG TABLET PO (09:00)
[2023-10-24] MEDS: Amiodarone HCL 200 MG TABLET PO ×2 (09:00→20:55)
[2023-10-24] MEDS: Gabapentin 600 MG TABLET PO ×3 (09:00→20:55)
[2023-10-24] MEDS: Clopidogrel Bisulfate 75 MG TABLET PO (09:00)
[2023-10-24] MEDS: Losartan Potassium 25 MG TABLET PO (09:00)
[2023-10-24] MEDS: Metoprolol Succinate ER 50 MG TAB.ER.24H PO (09:00)
[2023-10-24] MEDS: Aspirin 81 MG TAB.CHEW PO (09:01)
--- NOTE | 2023-10-24 11:25 | HO.PM.IMPN ---
Subjective Subjective Date of Service: 10/24/23 Interval History: Seen and evaluated this morning improved pain in left foot, better controlled plan for amputation today no other overnight events Review of Systems Review of Systems: Yes all other systems are reviewed and are negative Physical Exam Vital Signs: Vital Signs: Last Vital Signs Temp 97.6 F 10/24/23 08:00 Pulse 77 10/24/23 08:00 Resp 16 10/24/23 08:00 BP 176/81 H 10/24/23 08:00 Pulse Ox 95 10/24/23 08:00 O2 Del Method Room Air 10/24/23 08:00 BMI result Body Mass Index 32.4 Const: Other: Constitutional : Awake, interactive, not in distress Neck : Normal inspection, Supple Cardiovascular : RRR, no JVP, no lower extremity edema Respiratory : good bilateral air entry, no crackles, wheezes or rhonchi Gastrointestinal: soft, lax, Normal bowel sounds, Non tender Skin : Warm, Dry, LLE cold , big toe and little toe blackish discoloration . dry gangrene Neurological : Alert & oriented x3, No focal deficit Objective Data Active Medications Acetaminophen (Acetaminophen 325 Mg Tablet) 975 mg PO Q6H PRN PRN Reason: Pain, Mild (Pain Scale 1-3) Last Admin: 10/23/23 13:35 Dose: 975 mg Documented By: WINSTON Amiodarone HCl (Amiodarone Hcl 200 Mg Tablet) 200 mg PO BID [facility] Last Admin: 10/24/23 09:00 Dose: 200 mg Documented By: DESMOND Aspirin (Aspirin 81 Mg Tab.Chew) 81 mg PO DAILY [facility] Last Admin: 10/24/23 09:01 Dose: 81 mg Documented By: DESMOND Atorvastatin Calcium (Atorvastatin Calcium 80 Mg Tablet) 80 mg PO BEDTIME [facility] Last Admin: 10/23/23 20:10 Dose: 80 mg Documented By: CLINTON Bisacodyl (Bisacodyl 5 Mg Tablet.) 10 mg PO BEDTIME [facility] Last Admin: 10/23/23 20:09 Dose: 10 mg Documented By: CLINTON Clopidogrel Bisulfate (Clopidogrel Bisulfate 75 Mg Tablet) 75 mg PO DAILY [facility] Last Admin: 10/24/23 09:00 Dose: 75 mg Documented By: DESMOND Dextrose (Dextrose 50 % 25 Gm/50 Ml Syringe) 25 gm IVPUSH Q15M PRN; Protocol PRN Reason: per Hypoglycemia Standing Ord. Famotidine (Famotidine 20 Mg Tablet) 40 mg PO BID@0630,1630 [facility] Last Admin: 10/24/23 05:49 Dose: 40 mg Documented By: CLINTON Gabapentin (Gabapentin 600 Mg Tablet) 600 mg PO TID [facility] Last Admin: 10/24/23 09:00 Dose: 600 mg Documented By: DESMOND Glucose (Glucose Gel 15 Gm Gel..Gram.) 15 gm PO Q15M PRN; Protocol PRN Reason: per Hypoglycemia Standing Ord. Heparin Sodium (Porcine) (Heparin Sodium,Porcine 5,000 Unit/Ml Vial) 5,000 unit SUBCUT Q12H [facility] Last Admin: 10/24/23 08:46 Dose: Not Given Documented By: DESMOND Non-Admin Reason: Pre-op/MD held medication Hydroxyzine HCl (Hydroxyzine Hcl 50 Mg Tablet) 50 mg PO Q6H PRN PRN Reason: Itching Last Admin: 10/21/23 15:31 Dose: 50 mg Documented By: RAISA Vancomycin HCl 1,500 mg/ (Sodium Chloride) 500 mls @ 333.333 mls/hr IV Q12H [facility] Last Infusion: 10/24/23 05:12 Dose: Infused Documented By: CLINTON Insulin Human Lispro (Insulin Lispro 100 Unit/Ml 3 Ml Vial) 0 unit SUBCUT QIDACHS [facility]; Protocol Last Admin: 10/24/23 08:59 Dose: 2 unit Documented By: DESMOND Losartan Potassium (Losartan Potassium 25 Mg Tablet) 25 mg PO DAILY [facility]; Protocol Last Admin: 10/24/23 09:00 Dose: 25 mg Documented By: DESMOND Metoprolol Succinate (Metoprolol Succinate Er 50 Mg Tab.Er.24h) 50 mg PO DAILY [facility]; Protocol Last Admin: 10/24/23 09:00 Dose: 50 mg Documented By: DESMOND Morphine Sulfate (Morphine Sulfate 4 Mg/Ml Cartridge) 4 mg IVPUSH Q3H PRN; Protocol PRN Reason: Pain, Severe (Pain Scale 7-10) Last Admin: 10/24/23 06:29 Dose: 4 mg Documented By: CLINTON Oxycodone HCl (Oxycodone Hcl Immed Release 5 Mg Tablet) 5 mg PO Q4H PRN PRN Reason: Pain, Moderate(Pain Scale 4-6) Pharmacy Consult (Consult Rx Vancomycin Dosing) 1 each MISCELLANE DAILY PRN PRN Reason: Consult order Sertraline HCl (Sertraline Hcl 25 Mg Tablet) 75 mg PO DAILY [facility] Last Admin: 10/24/23 09:00 Dose: 75 mg Documented By: DESMOND Sodium Chloride (0.9 % Sodium Chloride Flush 3 Ml Syringe) [facility] Last Admin: 10/24/23 08:59 Dose: 3 ml Documented By: DESMOND Spironolactone (Spironolactone 25 Mg Tablet) 25 mg PO DAILY [facility]; Protocol Last Admin: 10/24/23 09:00 Dose: 25 mg Documented By: DESMOND Tramadol HCl (Tramadol Hcl 50 Mg Tablet) 50 mg PO Q6H PRN PRN Reason: Pain, Moderate(Pain Scale 4-6) Last Admin: 10/22/23 12:55 Dose: 50 mg Documented By: RAISA Labs 10/20/23 07:47 10/24/23 05:48 Labs: Laboratory Results - last 24 hr 10/23/23 10/23/23 10/23/23 14:31 16:08 20:49 Hold Purple Top Estim Creat Clear Calc Estimated GFR POC Glucose 220 H 253 H 216 H 10/24/23 10/24/23 05:48 07:30 Hold Purple Top SEE NOTE Estim Creat Clear Calc 104.1 Estimated GFR > 60 POC Glucose 200 H Microbiology Microbiology Results: Microbiology 10/18/23 19:35 Blood Culture - Final Blood - Venous No growth after 5 days. 10/18/23 19:25 Blood Culture - Final Blood - Venous No growth after 5 days. 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 Pt will be admitted to the hospital treatment and further evaluation of dry gangrene of toes on left foot. Big and little Toes dry gangrene 2/2 PAD and uncontrolled type 2 diabetes cultures negative Continue Vanco, started 10/18/2023 and dc Zosyn Vascular surgery following for likely amputation today of big and small toes Morphine and Oxy for pain management follow Vanco trough CAD Continue statin, aspirin, Plavix Uncontrolled type 2 diabetes with neuropathy A1c 8.2 Sliding-scale insulin, Lantus Diabetic diet Continue Farxiga, gabapentin HTN Continue amlodipine, metoprolol, losartan, spironolactone GERD Continue PPI Mood disorder Continue sertraline Full Code DVT Prophylaxis: Lovenox Pt will require a hospitalization overnightfor treatment of?worsening chronic left toe wounds with dry gangrene. for administration of IV antibiotics, IV analgesics, pending surgical procedure. Quality Stroke Does the patient have a stroke diagnosis?: No VTE Prior VTE?: No VTE Risk Level:: Medical - moderate - high VTE Device Contraindication: Treatment Not Indicated VTE Drug Contraindication: N/A - Med Ordered
[2023-10-24 11:36] LABS: Glucose, Whole Blood 183 mg/dL (60-115)
[2023-10-24 14:23] LABS: Vancomycin Random 14.6 mcg/mL (15-20)
--- NOTE | 2023-10-24 15:04 | P.CONAN_ITS ---
[facility] Active Problems Active Problems: All Active Problems (Updated 10/18/23 @ 21:47 by VINCE Hawkins) Dry gangrene (Acute) Cellulitis of foot, left (Acute) Peripheral arterial disease (Acute) Acute pain of left foot (Acute) Atrial arrhythmia (Acute) Acute non-ST elevation myocardial infarction (NSTEMI) (Acute) Atrial fibrillation (Acute) 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 (Acute) Diabetes mellitus with retinopathy, with long-term current use of insulin (Acute) PAD (peripheral artery disease) (Acute) Diabetic foot infection (Acute) Heartburn symptom (Acute) Major depression, recurrent (Acute) Erectile dysfunction (Acute) Dyslipidemia (Acute) Essential hypertension (Acute) Diabetes mellitus, with long-term current use of insulin (Acute) Ulcer of left heel (Acute) Diabetic foot ulcer (Acute) Intractable left heel pain (Acute) Hx of heart artery stent (Acute) Arthritis (Acute) Past Medical History Medical History 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 Diabetes mellitus with retinopathy, with long-term current use of insulin PAD (peripheral artery disease) Heartburn symptom Amputation stump infection Major depression, recurrent Erectile dysfunction Dyslipidemia Diabetes mellitus, with long-term current use of insulin Amputation stump complication Intractable left heel pain Chronic 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 Type 2 diabetes mellitus with diabetic polyneuropathy Type 2 diabetes mellitus with hyperglycemia Hyperlipidemia Chronic pancreatitis Essential hypertension Diabetes mellitus with hyperglycemia, with long-term current use of insulin Neuropathy Kidney calculus Failure of outpatient treatment Increased BMI Alcohol abuse CAD (coronary artery disease) Arthritis Functional capacity: uses cane/walker Family History Family History Mother MD (myocardial infarction), Onset Age: 64 Diabetes mellitus HTN (hypertension) Maternal Grandmother Diabetes mellitus Family history of problems with anesthesia: No Surgical History Surgical History S/P angiogram of extremity (06/28/23) History of right below knee amputation Status post below-knee amputation S/P debridement Hx of lithotripsy Status post laparoscopic cholecystectomy Hx of heart artery stent History of Problems with Anesthesia: No Social History Social History Household Members: Spouse Household Members Other:: and daughter Housing: House Do you presently have visiting nurse or other home services: Yes Alcohol intake: never Comment: pt ambulates with crutches. Patient Tobacco Use Status: Never used Tobacco Tobacco use type: Cigarette Cigarette Packs Per Day: 0.01 Cigarettes Per Day: 3 Years Smoked: 28 Smoked in Last 30 Days: No e-Cigarette/Vaping Use: Never Used Second Hand Smoke Exposure: No Use of substances other than those prescribed or required for medical reasons: No Substance Use Type: Marijuana Currently Displaying Signs/Symptoms of Drug Intoxication Withdrawal: No Have you been hit, kicked, punched, or otherwise hurt by someone within the past year? If so, by whom?: No Do you feel safe in your current relationship?: Yes Is there a partner from a previous relationship who is making you feel unsafe now?: No Are you made to feel afraid or neglected: No Are you DNR?: No Advance Directives: No Advance Directives Date on File: 04/17/21 Do you have thoughts of harming others: None Do you have a plan to hurt others: No Plan Nutrition Risks: No Nutritional Risk Poor oral hygiene: No service: No Current occupational status: unemployed and disabled Cognitive needs: No Hearing needs: No Vision needs: Yes Meds Allergies Allergy/AdvReac Type Severity Reaction Status Date / Time No Known Allergies Allergy Verified 08/25/23 09:14 [No Known Allergies*] Active Medications: Current Medications Acetaminophen (Acetaminophen 325 Mg Tablet) 975 mg PO Q6H PRN PRN Reason: Pain, Mild (Pain Scale 1-3) Last Admin: 10/23/23 13:35 Dose: 975 mg Amiodarone HCl (Amiodarone Hcl 200 Mg Tablet) 200 mg PO BID [facility] Last Admin: 10/24/23 09:00 Dose: 200 mg Aspirin (Aspirin 81 Mg Tab.Chew) 81 mg PO DAILY [facility] Last Admin: 10/24/23 09:01 Dose: 81 mg Atorvastatin Calcium (Atorvastatin Calcium 80 Mg Tablet) 80 mg PO BEDTIME [facility] Last Admin: 10/23/23 20:10 Dose: 80 mg Bisacodyl (Bisacodyl 5 Mg Tablet.Dr) 10 mg PO BEDTIME [facility] Last Admin: 10/23/23 20:09 Dose: 10 mg Clopidogrel Bisulfate (Clopidogrel Bisulfate 75 Mg Tablet) 75 mg PO DAILY [facility] Last Admin: 10/24/23 09:00 Dose: 75 mg Dextrose (Dextrose 50 % 25 Gm/50 Ml Syringe) 25 gm IVPUSH Q15M PRN; Protocol PRN Reason: per Hypoglycemia Standing Ord. Famotidine (Famotidine 20 Mg Tablet) 40 mg PO BID@0630,1630 [facility] Last Admin: 10/24/23 05:49 Dose: 40 mg Fentanyl (Fentanyl Citrate/Pf 100 Mcg/2 Ml Vial) 25 mcg IVPUSH Q5M PRN; Protocol PRN Reason: Pain, Moderate(Pain Scale 4-6) Gabapentin (Gabapentin 600 Mg Tablet) 600 mg PO TID [facility] Last Admin: 10/24/23 14:07 Dose: 600 mg Glucose (Glucose Gel 15 Gm Gel..Gram.) 15 gm PO Q15M PRN; Protocol PRN Reason: per Hypoglycemia Standing Ord. Heparin Sodium (Porcine) (Heparin Sodium,Porcine 5,000 Unit/Ml Vial) 5,000 unit SUBCUT Q12H [facility] Last Admin: 10/24/23 08:46 Dose: Not Given Hydromorphone HCl (Hydromorphone Hcl 0.5 Mg/0.5 Ml Syringe) 0.5 mg IVPUSH Q5M PRN; Protocol PRN Reason: Pain, Severe (Pain Scale 7-10) Hydroxyzine HCl (Hydroxyzine Hcl 50 Mg Tablet) 50 mg PO Q6H PRN PRN Reason: Itching Last Admin: 10/21/23 15:31 Dose: 50 mg Vancomycin HCl 1,500 mg/ (Sodium Chloride) 500 mls @ 333.333 mls/hr IV Q12H [facility] Last Infusion: 10/24/23 05:12 Dose: Infused Insulin Human Lispro (Insulin Lispro 100 Unit/Ml 3 Ml Vial) 0 unit SUBCUT QIDACHS [facility]; Protocol Last Admin: 10/24/23 12:17 Dose: 2 unit Losartan Potassium (Losartan Potassium 25 Mg Tablet) 25 mg PO DAILY [facility]; Protocol Last Admin: 10/24/23 09:00 Dose: 25 mg Metoprolol Succinate (Metoprolol Succinate Er 50 Mg Tab.Er.24h) 50 mg PO DAILY [facility]; Protocol Last Admin: 10/24/23 09:00 Dose: 50 mg Morphine Sulfate (Morphine Sulfate 4 Mg/Ml Cartridge) 4 mg IVPUSH Q3H PRN; Protocol PRN Reason: Pain, Severe (Pain Scale 7-10) Last Admin: 10/24/23 12:17 Dose: 4 mg Oxycodone HCl (Oxycodone Hcl Immed Release 5 Mg Tablet) 5 mg PO Q4H PRN PRN Reason: Pain, Moderate(Pain Scale 4-6) Pharmacy Consult (Consult Rx Vancomycin Dosing) 1 each MISCELLANE DAILY PRN PRN Reason: Consult order Sertraline HCl (Sertraline Hcl 25 Mg Tablet) 75 mg PO DAILY [facility] Last Admin: 10/24/23 09:00 Dose: 75 mg Sodium Chloride (0.9 % Sodium Chloride Flush 3 Ml Syringe) 3 ml IVFLUSH QSHIFT [facility] Last Admin: 10/24/23 08:59 Dose: 3 ml Spironolactone (Spironolactone 25 Mg Tablet) 25 mg PO DAILY [facility]; Protocol Last Admin: 10/24/23 09:00 Dose: 25 mg Tramadol HCl (Tramadol Hcl 50 Mg Tablet) 50 mg PO Q6H PRN PRN Reason: Pain, Moderate(Pain Scale 4-6) Last Admin: 10/22/23 12:55 Dose: 50 mg Home Medications Medication Instructions Recorded Confirmed Last Taken Type blood sugar diagnostic (FreeStyle 12/01/22 06/28/23 Unknown History Lite Strips) blood-glucose meter (FreeStyle 12/01/22 06/28/23 Unknown History Lite Meter kit) atorvastatin 80 mg tablet 80 mg PO BEDTIME 06/20/23 10/18/23 10/17/23 History sertraline 50 mg tablet 75 mg PO DAILY 08/25/23 10/18/23 10/18/23 History famotidine 40 mg tablet 40 mg PO DAILY heartburn 09/11/23 10/18/23 10/18/23 History melatonin 5 mg tablet 5 mg PO BEDTIME PRN Sleep 09/11/23 10/18/23 Unknown History acetaminophen 500 mg tablet 1,000 mg PO Q6H PRN Pain 10/18/23 10/18/23 Unknown History (Acetaminophen Extra Strength) amiodarone 200 mg tablet 200 mg PO BID 10/18/23 10/18/23 10/18/23 History clopidogrel 75 mg tablet 75 mg DAILY 10/18/23 10/18/23 10/18/23 History dapagliflozin propanediol 10 mg 10 mg PO QAM 10/18/23 10/18/23 10/18/23 History tablet (Farxiga) insulin glargine 100 unit/mL (3 34 unit subcut BEDTIME 10/18/23 10/18/23 10/17/23 History mL) subcutaneous pen (Lantus Solostar U-100 Insulin) lidocaine 5 % topical patch 1 patch topical DAILY PRN moderate 10/18/23 10/18/23 10/18/23 History pain losartan 25 mg tablet 25 mg PO DAILY 10/18/23 10/18/23 10/18/23 History pantoprazole 40 mg tablet,delayed 40 mg PO DAILY 10/18/23 10/18/23 10/18/23 History release spironolactone 25 mg tablet 25 mg PO DAILY 10/18/23 10/18/23 10/18/23 History tramadol 50 mg tablet 50 mg PO Q6H PRN pain 10/18/23 10/18/23 10/18/23 History Exam Height,Weight and Vital Signs: Height 5 ft 9 in Weight 99.4 kg Last Vital Signs Temp 97.6 F 10/24/23 08:00 Pulse 77 10/24/23 08:00 Resp 16 10/24/23 08:00 BP 176/81 H 10/24/23 08:00 Pulse Ox 95 10/24/23 08:00 O2 Del Method Room Air 10/24/23 08:00 Pertinent Lab Results Pertinent Lab Results: Laboratory Tests 10/18/23 10/18/23 10/18/23 13:17 13:51 19:35 WBC 11.7 H RBC 4.61 Hgb 11.7 L Hct 38.1 L MCV 82.6 MCH 25.4 L MCHC 30.7 L RDW 15.9 Plt Count 333 D MPV 9.6 Immature Gran % (Auto) 0.6 H Neut % (Auto) 66.4 Lymph % (Auto) 17.2 L [place] % (Auto) 6.3 Eos % (Auto) 8.8 H Baso % (Auto) 0.7 Lymph # (Auto) 2.0 [place] # (Auto) 0.7 Eos # (Auto) 1.0 H Baso # (Auto) 0.1 Abs Immat Gran (auto) 0.07 H Absolute Neuts (auto) 7.8 Absolute Nucleated RBC 0.000 Nucleated RBC % (auto) 0.0 ESR 57 H Hold Purple Top Sodium 139 Potassium 4.5 D Chloride 106 Carbon Dioxide 25 Anion Gap 13 BUN 17 H Creatinine 0.85 Estim Creat Clear Calc 111.4 Estimated GFR > 60 POC Glucose Random Glucose 203 H Estimat Average Glucose Hemoglobin A1c % Lactic Acid 0.9 Calcium 8.9 Iron TIBC % Saturation Unsat Iron Binding Total Bilirubin 0.3 AST 31 ALT 47 H Alkaline Phosphatase 99 C-Reactive Protein 1.15 H Total Protein 8.0 Albumin 3.5 Vancomycin Trough Random Vancomycin 10/18/23 10/19/23 10/19/23 20:44 05:09 07:19 WBC RBC Hgb Hct MCV MCH MCHC RDW Plt Count MPV Immature Gran % (Auto) Neut % (Auto) Lymph % (Auto) [place] % (Auto) Eos % (Auto) Baso % (Auto) Lymph # (Auto) [place] # (Auto) Eos # (Auto) Baso # (Auto) Abs Immat Gran (auto) Absolute Neuts (auto) Absolute Nucleated RBC Nucleated RBC % (auto) ESR Hold Purple Top Sodium Potassium Chloride Carbon Dioxide Anion Gap BUN Creatinine 0.80 Estim Creat Clear Calc 118.4 Estimated GFR > 60 POC Glucose 85 105 Random Glucose Estimat Average Glucose 189 Hemoglobin A1c % 8.2 H Lactic Acid Calcium Iron TIBC % Saturation Unsat Iron Binding Total Bilirubin AST ALT Alkaline Phosphatase C-Reactive Protein Total Protein Albumin Vancomycin Trough Random Vancomycin 10/19/23 10/19/23 10/19/23 11:37 16:17 20:19 WBC RBC Hgb Hct MCV MCH MCHC RDW Plt Count MPV Immature Gran % (Auto) Neut % (Auto) Lymph % (Auto) [place] % (Auto) Eos % (Auto) Baso % (Auto) Lymph # (Auto) [place] # (Auto) Eos # (Auto) Baso # (Auto) Abs Immat Gran (auto) Absolute Neuts (auto) Absolute Nucleated RBC Nucleated RBC % (auto) ESR Hold Purple Top Sodium Potassium Chloride Carbon Dioxide Anion Gap BUN Creatinine Estim Creat Clear Calc Estimated GFR POC Glucose 114 146 H 145 H Random Glucose Estimat Average Glucose Hemoglobin A1c % Lactic Acid Calcium Iron TIBC % Saturation Unsat Iron Binding Total Bilirubin AST ALT Alkaline Phosphatase C-Reactive Protein Total Protein Albumin Vancomycin Trough Random Vancomycin 10/20/23 10/20/23 10/20/23 07:13 07:47 07:47 WBC 8.0 RBC 4.01 L Hgb 10.3 L Hct 33.3 L MCV 83.0 MCH 25.7 L MCHC 30.9 L RDW 15.8 Plt Count 281 MPV 9.7 Immature Gran % (Auto) Neut % (Auto) Lymph % (Auto) [place] % (Auto) Eos % (Auto) Baso % (Auto) Lymph # (Auto) [place] # (Auto) Eos # (Auto) Baso # (Auto) Abs Immat Gran (auto) Absolute Neuts (auto) Absolute Nucleated RBC 0.000 Nucleated RBC % (auto) 0.0 ESR Hold Purple Top Sodium 138 Potassium 4.0 Chloride 105 Carbon Dioxide 24 Anion Gap 13 BUN 11 Creatinine 0.75 0.75 Estim Creat Clear Calc 126.3 Estimated GFR POC Glucose 128 H Random Glucose Estimat Average Glucose Hemoglobin A1c % Lactic Acid Calcium Iron TIBC % Saturation Unsat Iron Binding Total Bilirubin AST ALT Alkaline Phosphatase C-Reactive Protein Total Protein Albumin Vancomycin Trough Random Vancomycin 10/20/23 10/20/23 10/20/23 07:47 07:47 11:35 WBC RBC Hgb Hct MCV MCH MCHC RDW Plt Count MPV Immature Gran % (Auto) Neut % (Auto) Lymph % (Auto) [place] % (Auto) Eos % (Auto) Baso % (Auto) Lymph # (Auto) [place] # (Auto) Eos # (Auto) Baso # (Auto) Abs Immat Gran (auto) Absolute Neuts (auto) Absolute Nucleated RBC Nucleated RBC % (auto) ESR Hold Purple Top Sodium Potassium Chloride Carbon Dioxide Anion Gap BUN Creatinine Estim Creat Clear Calc 126.3 Estimated GFR > 60 > 60 POC Glucose 164 H Random Glucose 109 Estimat Average Glucose Hemoglobin A1c % Lactic Acid Calcium 8.5 Iron TIBC % Saturation Unsat Iron Binding Total Bilirubin AST ALT Alkaline Phosphatase C-Reactive Protein Total Protein Albumin Vancomycin Trough 11.8 Random Vancomycin 10/20/23 10/20/23 10/21/23 16:12 21:06 05:25 WBC RBC Hgb Hct MCV MCH MCHC RDW Plt Count MPV Immature Gran % (Auto) Neut % (Auto) Lymph % (Auto) [place] % (Auto) Eos % (Auto) Baso % (Auto) Lymph # (Auto) [place] # (Auto) Eos # (Auto) Baso # (Auto) Abs Immat Gran (auto) Absolute Neuts (auto) Absolute Nucleated RBC Nucleated RBC % (auto) ESR Hold Purple Top SEE NOTE Sodium Potassium Chloride Carbon Dioxide Anion Gap BUN Creatinine 0.82 Estim Creat Clear Calc 115.5 Estimated GFR > 60 POC Glucose 186 H 142 H Random Glucose Estimat Average Glucose Hemoglobin A1c % Lactic Acid Calcium Iron 37 L TIBC 255 % Saturation 15 Unsat Iron Binding 218 Total Bilirubin AST ALT Alkaline Phosphatase C-Reactive Protein Total Protein Albumin Vancomycin Trough Random Vancomycin 10/21/23 10/21/23 10/21/23 07:05 11:14 16:31 WBC RBC Hgb Hct MCV MCH MCHC RDW Plt Count MPV Immature Gran % (Auto) Neut % (Auto) Lymph % (Auto) [place] % (Auto) Eos % (Auto) Baso % (Auto) Lymph # (Auto) [place] # (Auto) Eos # (Auto) Baso # (Auto) Abs Immat Gran (auto) Absolute Neuts (auto) Absolute Nucleated RBC Nucleated RBC % (auto) ESR Hold Purple Top Sodium Potassium Chloride Carbon Dioxide Anion Gap BUN Creatinine Estim Creat Clear Calc Estimated GFR POC Glucose 159 H 167 H 228 H Random Glucose Estimat Average Glucose Hemoglobin A1c % Lactic Acid Calcium Iron TIBC % Saturation Unsat Iron Binding Total Bilirubin AST ALT Alkaline Phosphatase C-Reactive Protein Total Protein Albumin Vancomycin Trough Random Vancomycin 10/21/23 10/21/23 10/22/23 20:54 21:13 05:18 WBC RBC Hgb Hct MCV MCH MCHC RDW Plt Count MPV Immature Gran % (Auto) Neut % (Auto) Lymph % (Auto) [place] % (Auto) Eos % (Auto) Baso % (Auto) Lymph # (Auto) [place] # (Auto) Eos # (Auto) Baso # (Auto) Abs Immat Gran (auto) Absolute Neuts (auto) Absolute Nucleated RBC Nucleated RBC % (auto) ESR Hold Purple Top SEE NOTE Sodium Potassium Chloride Carbon Dioxide Anion Gap BUN Creatinine 0.86 Estim Creat Clear Calc 110.1 Estimated GFR > 60 POC Glucose 192 H Random Glucose Estimat Average Glucose Hemoglobin A1c % Lactic Acid Calcium Iron TIBC % Saturation Unsat Iron Binding Total Bilirubin AST ALT Alkaline Phosphatase C-Reactive Protein Total Protein Albumin Vancomycin Trough Random Vancomycin 19.6 10/22/23 10/22/23 10/22/23 07:17 11:03 16:09 WBC RBC Hgb Hct MCV MCH MCHC RDW Plt Count MPV Immature Gran % (Auto) Neut % (Auto) Lymph % (Auto) [place] % (Auto) Eos % (Auto) Baso % (Auto) Lymph # (Auto) [place] # (Auto) Eos # (Auto) Baso # (Auto) Abs Immat Gran (auto) Absolute Neuts (auto) Absolute Nucleated RBC Nucleated RBC % (auto) ESR Hold Purple Top Sodium Potassium Chloride Carbon Dioxide Anion Gap BUN Creatinine Estim Creat Clear Calc Estimated GFR POC Glucose 179 H 226 H 229 H Random Glucose Estimat Average Glucose Hemoglobin A1c % Lactic Acid Calcium Iron TIBC % Saturation Unsat Iron Binding Total Bilirubin AST ALT Alkaline Phosphatase C-Reactive Protein Total Protein Albumin Vancomycin Trough Random Vancomycin 10/22/23 10/22/23 10/23/23 20:19 20:31 05:08 WBC RBC Hgb Hct MCV MCH MCHC RDW Plt Count MPV Immature Gran % (Auto) Neut % (Auto) Lymph % (Auto) [place] % (Auto) Eos % (Auto) Baso % (Auto) Lymph # (Auto) [place] # (Auto) Eos # (Auto) Baso # (Auto) Abs Immat Gran (auto) Absolute Neuts (auto) Absolute Nucleated RBC Nucleated RBC % (auto) ESR Hold Purple Top SEE NOTE Sodium Potassium Chloride Carbon Dioxide Anion Gap BUN Creatinine 0.93 Estim Creat Clear Calc 101.8 Estimated GFR > 60 POC Glucose 249 H Random Glucose Estimat Average Glucose Hemoglobin A1c % Lactic Acid Calcium Iron TIBC % Saturation Unsat Iron Binding Total Bilirubin AST ALT Alkaline Phosphatase C-Reactive Protein Total Protein Albumin Vancomycin Trough Random Vancomycin 16.4 10/23/23 10/23/23 10/23/23 07:05 14:31 16:08 WBC RBC Hgb Hct MCV MCH MCHC RDW Plt Count MPV Immature Gran % (Auto) Neut % (Auto) Lymph % (Auto) [place] % (Auto) Eos % (Auto) Baso % (Auto) Lymph # (Auto) [place] # (Auto) Eos # (Auto) Baso # (Auto) Abs Immat Gran (auto) Absolute Neuts (auto) Absolute Nucleated RBC Nucleated RBC % (auto) ESR Hold Purple Top Sodium Potassium Chloride Carbon Dioxide Anion Gap BUN Creatinine Estim Creat Clear Calc Estimated GFR POC Glucose 242 H 220 H 253 H Random Glucose Estimat Average Glucose Hemoglobin A1c % Lactic Acid Calcium Iron TIBC % Saturation Unsat Iron Binding Total Bilirubin AST ALT Alkaline Phosphatase C-Reactive Protein Total Protein Albumin Vancomycin Trough Random Vancomycin 10/23/23 10/24/23 10/24/23 20:49 05:48 07:30 WBC RBC Hgb Hct MCV MCH MCHC RDW Plt Count MPV Immature Gran % (Auto) Neut % (Auto) Lymph % (Auto) [place] % (Auto) Eos % (Auto) Baso % (Auto) Lymph # (Auto) [place] # (Auto) Eos # (Auto) Baso # (Auto) Abs Immat Gran (auto) Absolute Neuts (auto) Absolute Nucleated RBC Nucleated RBC % (auto) ESR Hold Purple Top SEE NOTE Sodium Potassium Chloride Carbon Dioxide Anion Gap BUN Creatinine 0.91 Estim Creat Clear Calc 104.1 Estimated GFR > 60 POC Glucose 216 H 200 H Random Glucose Estimat Average Glucose Hemoglobin A1c % Lactic Acid Calcium Iron TIBC % Saturation Unsat Iron Binding Total Bilirubin AST ALT Alkaline Phosphatase C-Reactive Protein Total Protein Albumin Vancomycin Trough Random Vancomycin 10/24/23 10/24/23 11:30 14:05 WBC RBC Hgb Hct MCV MCH MCHC RDW Plt Count MPV Immature Gran % (Auto) Neut % (Auto) Lymph % (Auto) [place] % (Auto) Eos % (Auto) Baso % (Auto) Lymph # (Auto) [place] # (Auto) Eos # (Auto) Baso # (Auto) Abs Immat Gran (auto) Absolute Neuts (auto) Absolute Nucleated RBC Nucleated RBC % (auto) ESR Hold Purple Top Sodium Potassium Chloride Carbon Dioxide Anion Gap BUN Creatinine Estim Creat Clear Calc Estimated GFR POC Glucose 183 H Random Glucose Estimat Average Glucose Hemoglobin A1c % Lactic Acid Calcium Iron TIBC % Saturation Unsat Iron Binding Total Bilirubin AST ALT Alkaline Phosphatase C-Reactive Protein Total Protein Albumin Vancomycin Trough Random Vancomycin 14.6 L Airway Mallampati Class: IV TM Dist: <=3cm Denture: Upper and Lower Loose/Missing/Broken Teeth: No Heart: rrr Assessment and Plan Assessment Anesthesia Assessment: Anesthesia Plan Discussed and Chart Reviewed Final Anesthetic Review Family History of Problems with Anesthesia: No History of Problems with Anesthesia: No NPO: Yes ASA Class: III and Emergency Final Preanesthetic Review: No Changes in Pt Med Stat, Meds/Allgs Chart Reviewed, Consent Obtained/Reviewed and Anes Risks/Benef Reviewed Patient Risk: High Procedure Risk: Intermediate Anesthetic Plan Anesthetic Plan: GA Disposition: Standard PACU
--- NOTE | 2023-10-24 16:14 | MHC.SHP ---
Pre-Procedural Eval Section A - 24 Hr Update-Section A only Date of Service: 10/24/23 The patient is an INPATIENT: Yes Changes since office visit: Yes Patient answered all questions The patient has been examined within 24 hours of the surgical procedure. The History & Physical has been completed within 30 days and I have reviewed it.: Yes Section B - Complete if H&P > 30 days Chief Complaint: Multiple left toes gangrene,LEFT LEG Allergies: Allergies Allergy/AdvReac Type Severity Reaction Status Date / Time No Known Allergies Allergy Verified 08/25/23 09:14 [No Known Allergies*] Plan I have reviewed the history and physical and performed a pertinent physical examination on my patient. No changes have occurred unless specified. Time Spent With Patient Time: Total time managing care of this patient today ____ minutes.
[2023-10-24 16:35] LABS: Glucose, Whole Blood 148 mg/dL (60-115)
--- NOTE | 2023-10-24 17:38 | W.PM.OPN ---
Operative Note Operative Note Date of Service: 10/24/23 Narrative: Operative note by [facility] Preoperative diagnosis: Left leg diabetic foot ulcer Postoperative diagnosis: Same Procedure: Amputation of left 1st and 5th toe Surgeon:Berto Sheppard M.D. 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 He had undergone endovascular intervention yesterday. He now presents for amputation. The patient has signed the informed consent after reviewing risks, complications, benefits, and alternatives previously discussed with the patient. The patient was given the opportunity to ask any additional questions or voice any concerns. All questions were answered to the patient's satisfaction. Procedure in detail: Patient was brought to the operating room prior to which a time-out was called for patient identification site verification. Left leg was prepped and draped in standard surgical fashion. [place] incision was created over the 1st toe and 5th toe. This was taken down to the metatarsal head. Once we were able to dissect down by we removed the toe in its entirety. Once this was done using electrocautery we obtained adequate hemostasis. Wounds were thoroughly irrigated out. Deep layer was reapproximated using 2 0 Polysorb. Superficial layer with 3-0 poly Sorb. Finally skin was closed with a 3-0 nylon in a mattress fashion. This was used along with skin clips. Once this was all done leg was thoroughly cleansed of all Betadine. Xeroform and sterile dressings were applied. At the end the case sponge instrument counts were correct. Patient tolerated the procedure well. Returned to recovery with stable vitals. This note is constructed using voice recognition software. While every effort has been made to ensure accuracy, furniture painter errors may have been included. Thank you for allowing me to participate in the care of your patient. Yours sincerely, Berto Sheppard MD, FACS, R.P.V.I.
--- NOTE | 2023-10-24 18:32 | PC.NURSE ---
Patient returned to floor s/p amputation of left great toe and 5th toe. Kerlix dressing with RUDY wrap in place. Positive CMS to remaining toes. VSS.
[2023-10-24 18:40] LABS: Glucose, Whole Blood 175 mg/dL (60-115)
[2023-10-24 20:49] LABS: Glucose, Whole Blood 243 mg/dL (60-115)
[2023-10-24] MEDS: oxyCODONE HCl Immed Release 5 MG TABLET PO (20:55)
[2023-10-24] MEDS: bisacodyL 5 MG TABLET.DR 10 MG PO (20:55)
[2023-10-24] MEDS: Heparin Sodium,Porcine 5,000 UNIT/ML VIAL 5000 UNIT SUBCUT (20:56)
[2023-10-24] MEDS: Atorvastatin Calcium 80 MG TABLET PO (20:56)
[2023-10-25] MEDS: Morphine Sulfate 4 MG/ML CARTRIDGE IVPUSH ×3 (01:53→10:49)
[2023-10-25] MEDS: vancomycin HCL 1,500 MG in 0.9 % Sodium Chloride 500 ML 333.33 MG IV ×2 (03:46→16:13)
[2023-10-25 03:51] VITALS: BP 162/74; PULSE 80; RESP 16; TEMP 36.2; O2SAT 96
[2023-10-25] MEDS: Famotidine 20 MG TABLET 40 MG PO ×2 (05:40→16:13)
[2023-10-25 07:22] VITALS: BP 170/74; PULSE 75; RESP 16; TEMP 36.6; O2SAT 98
[2023-10-25 07:55] LABS: Glucose, Whole Blood 303 mg/dL (60-115)
[2023-10-25] MEDS: Insulin Lispro 100 UNIT/ML 3 ML VIAL SUBCUT ×4 (08:04→20:31)
[2023-10-25] MEDS: Sertraline HCL 25 MG TABLET 75 MG PO (08:05)
[2023-10-25] MEDS: Aspirin 81 MG TAB.CHEW PO (08:05)
[2023-10-25] MEDS: Amiodarone HCL 200 MG TABLET PO ×2 (08:05→20:17)
[2023-10-25] MEDS: Spironolactone 25 MG TABLET PO (08:05)
[2023-10-25] MEDS: Clopidogrel Bisulfate 75 MG TABLET PO (08:05)
[2023-10-25] MEDS: Metoprolol Succinate ER 50 MG TAB.ER.24H PO (08:05)
[2023-10-25] MEDS: Losartan Potassium 25 MG TABLET PO (08:05)
[2023-10-25] MEDS: Gabapentin 600 MG TABLET PO ×3 (08:05→20:17)
[2023-10-25] MEDS: Heparin Sodium,Porcine 5,000 UNIT/ML VIAL 5000 UNIT SUBCUT ×2 (08:05→20:17)
[2023-10-25] MEDS: oxyCODONE HCl Immed Release 5 MG TABLET PO ×3 (08:05→20:15)
[2023-10-25 08:35] LABS: Hematocrit 36.5 % (42.0-52.0); Hemoglobin 11.3 g/dl (14.0-18.0); Mean Corpuscular Hemoglobin 25.4 pg (27.0-33.0); Mean Platelet Volume 10.1 fL (9.4-12.4); Platelet Count 310 X10*3/uL (160-400); Red Blood Count 4.45 X10*6/uL (4.60-5.80); Red Cell Distribution Width 15.7 % (11.0-16.0); White Blood Count 11.1 X10*3/uL (4.8-10.8)
[2023-10-25 08:52] LABS: Anion Gap 15 (12-20); Blood Urea Nitrogen 18 mg/dL (9-16); Calcium 9.3 mg/dL (8.4-10.2); Carbon Dioxide 25 mmol/L (22-29); Chloride 96 mmol/L (96-108); Creatinine Clr Calc Pharmacy 89.3; Estimated Glomerular Filt Rate > 60; Glucose Random 305 mg/dL (60-115); Potassium 4.1 mmol/L (3.3-5.1); Sodium 132 mmol/L (135-145)
--- NOTE | 2023-10-25 09:39 | HO.PM.IMPN ---
Subjective Subjective Date of Service: 10/25/23 Interval History: foot pain Physical Exam Vital Signs: Vital Signs: Last Vital Signs Temp 97.8 F 10/25/23 07:22 Pulse 75 10/25/23 07:22 Resp 16 10/25/23 07:22 BP 170/74 H 10/25/23 07:22 Pulse Ox 98 10/25/23 07:22 O2 Del Method Room Air 10/25/23 07:22 BMI result Body Mass Index 32.4 Const: Other: Constitutional : Awake, interactive, not in distress Neck : Normal inspection, Supple Cardiovascular : RRR, no JVP, no lower extremity edema Respiratory : good bilateral air entry, no crackles, wheezes or rhonchi Gastrointestinal: soft, lax, Normal bowel sounds, Non tender Skin : Warm, Dry, LLE cold , big toe and little toe blackish discoloration . dry gangrene Neurological : Alert & oriented x3, No focal deficit Objective Data Active Medications Acetaminophen (Acetaminophen 325 Mg Tablet) 975 mg PO Q6H PRN PRN Reason: Pain, Mild (Pain Scale 1-3) Last Admin: 10/23/23 13:35 Dose: 975 mg Documented By: WINSTON Amiodarone HCl (Amiodarone Hcl 200 Mg Tablet) 200 mg PO BID [facility] Last Admin: 10/25/23 08:05 Dose: 200 mg Documented By: WIL Aspirin (Aspirin 81 Mg Tab.Chew) 81 mg PO DAILY [facility] Last Admin: 10/25/23 08:05 Dose: 81 mg Documented By: WIL Atorvastatin Calcium (Atorvastatin Calcium 80 Mg Tablet) 80 mg PO BEDTIME [facility] Last Admin: 10/24/23 20:56 Dose: 80 mg Documented By: CLINTON Bisacodyl (Bisacodyl 5 Mg Tablet.Dr) 10 mg PO BEDTIME [facility] Last Admin: 10/24/23 20:55 Dose: 10 mg Documented By: CLINTON Clopidogrel Bisulfate (Clopidogrel Bisulfate 75 Mg Tablet) 75 mg PO DAILY [facility] Last Admin: 10/25/23 08:05 Dose: 75 mg Documented By: WIL Dextrose (Dextrose 50 % 25 Gm/50 Ml Syringe) 25 gm IVPUSH Q15M PRN; Protocol PRN Reason: per Hypoglycemia Standing Ord. Famotidine (Famotidine 20 Mg Tablet) 40 mg PO BID@0630,1630 [facility] Last Admin: 10/25/23 05:40 Dose: 40 mg Documented By: CLINTON Gabapentin (Gabapentin 600 Mg Tablet) 600 mg PO TID [facility] Last Admin: 10/25/23 08:05 Dose: 600 mg Documented By: WIL Glucose (Glucose Gel 15 Gm Gel..Gram.) 15 gm PO Q15M PRN; Protocol PRN Reason: per Hypoglycemia Standing Ord. Heparin Sodium (Porcine) (Heparin Sodium,Porcine 5,000 Unit/Ml Vial) 5,000 unit SUBCUT Q12H [facility] Last Admin: 10/25/23 08:05 Dose: 5,000 unit Documented By: WIL Hydroxyzine HCl (Hydroxyzine Hcl 50 Mg Tablet) 50 mg PO Q6H PRN PRN Reason: Itching Last Admin: 10/21/23 15:31 Dose: 50 mg Documented By: KARINAMER Vancomycin HCl 1,500 mg/ (Sodium Chloride) 500 mls @ 333.333 mls/hr IV Q12H [facility] Last Infusion: 10/25/23 05:27 Dose: Infused Documented By: CLINTON Insulin Human Lispro (Insulin Lispro 100 Unit/Ml 3 Ml Vial) 0 unit SUBCUT QIDACHS [facility]; Protocol Last Admin: 10/25/23 08:04 Dose: 8 unit Documented By: WIL Losartan Potassium (Losartan Potassium 25 Mg Tablet) 25 mg PO DAILY [facility]; Protocol Last Admin: 10/25/23 08:05 Dose: 25 mg Documented By: WIL Metoprolol Succinate (Metoprolol Succinate Er 50 Mg Tab.Er.24h) 50 mg PO DAILY [facility]; Protocol Last Admin: 10/25/23 08:05 Dose: 50 mg Documented By: WIL Morphine Sulfate (Morphine Sulfate 4 Mg/Ml Cartridge) 4 mg IVPUSH Q3H PRN; Protocol PRN Reason: Pain, Severe (Pain Scale 7-10) Last Admin: 10/25/23 05:40 Dose: 4 mg Documented By: CLINTON Oxycodone HCl (Oxycodone Hcl Immed Release 5 Mg Tablet) 5 mg PO Q4H PRN PRN Reason: Pain, Moderate(Pain Scale 4-6) Last Admin: 10/25/23 08:05 Dose: 5 mg Documented By: WIL Pharmacy Consult (Consult Rx Vancomycin Dosing) 1 each MISCELLANE DAILY PRN PRN Reason: Consult order Sertraline HCl (Sertraline Hcl 25 Mg Tablet) 75 mg PO DAILY [facility] Last Admin: 10/25/23 08:05 Dose: 75 mg Documented By: WIL Sodium Chloride (0.9 % Sodium Chloride Flush 3 Ml Syringe) 3 ml IVFLUSH QSHIFT [facility] Last Admin: 10/24/23 20:56 Dose: 3 ml Documented By: CLINTON Spironolactone (Spironolactone 25 Mg Tablet) 25 mg PO DAILY [facility]; Protocol Last Admin: 10/25/23 08:05 Dose: 25 mg Documented By: WIL Tramadol HCl (Tramadol Hcl 50 Mg Tablet) 50 mg PO Q6H PRN PRN Reason: Pain, Moderate(Pain Scale 4-6) Last Admin: 10/22/23 12:55 Dose: 50 mg Documented By: RAISA Labs 10/25/23 08:07 10/25/23 08:07 Labs: Laboratory Results - last 24 hr 10/24/23 10/24/23 10/24/23 11:30 14:05 16:31 MCV MCH MCHC RDW Plt Count MPV Absolute Nucleated RBC Nucleated RBC % (auto) Anion Gap Estim Creat Clear Calc Estimated GFR POC Glucose 183 H 148 H Random Glucose Calcium Random Vancomycin 14.6 L 10/24/23 10/24/23 10/25/23 18:34 20:36 07:44 MCV MCH MCHC RDW Plt Count MPV Absolute Nucleated RBC Nucleated RBC % (auto) Anion Gap Estim Creat Clear Calc Estimated GFR POC Glucose 175 H 243 H 303 H Random Glucose Calcium Random Vancomycin 10/25/23 10/25/23 10/25/23 08:07 08:07 08:07 MCV 82.0 MCH 25.4 L MCHC 31.0 RDW 15.7 Plt Count 310 MPV 10.1 Absolute Nucleated RBC 0.000 Nucleated RBC % (auto) 0.0 Anion Gap 15 Estim Creat Clear Calc Cancelled 89.3 Cancelled Estimated GFR Cancelled POC Glucose Random Glucose Calcium Random Vancomycin 10/25/23 10/25/23 08:07 08:07 MCV MCH MCHC RDW Plt Count MPV Absolute Nucleated RBC Nucleated RBC % (auto) Anion Gap Estim Creat Clear Calc Estimated GFR > 60 Cancelled POC Glucose Random Glucose 305 H Calcium 9.3 D Random Vancomycin Assessment and Plan (1) Dry gangrene: Status: Acute (2) Cellulitis of foot, left: Status: Acute (3) Peripheral arterial disease: Status: Acute Plan 58M PMH significant for?DM2 with neuropathy, PAD s/p right BKA, chronic 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 Big and little Toes dry gangrene 2/2 PAD and uncontrolled type 2 diabetes cultures negative Continue Vanco, started 10/18/2023 Vascular surgery - 10/24/23 - Amputation of left 1st and 5th toe Morphine and Oxy for pain management follow Vanco trough CAD Continue statin, aspirin, Plavix Uncontrolled type 2 diabetes with neuropathy A1c 8.2 Sliding-scale insulin, Lantus Diabetic diet Continue Farxiga, gabapentin HTN Continue amlodipine, metoprolol, losartan, spironolactone GERD Continue PPI Mood disorder Continue sertraline Full Code DVT Prophylaxis: Lovenox reason for continued hospitalization:postop monitoring Quality Stroke Does the patient have a stroke diagnosis?: No VTE Prior VTE?: No VTE Risk Level:: Medical - moderate - high VTE Device Contraindication: Treatment Not Indicated VTE Drug Contraindication: N/A - Med Ordered
--- NOTE | 2023-10-25 09:57 | HO.VASCPN ---
Subjective Subjective Date of Service: 10/25/23 Patient reports: no new complaints and feels better Interval history: Very pleasant 58-year-old gentleman status post amputation of left great toe and 5th toe. Appears to be doing relatively well. Pain much better. Resting comfortably in bed today. Physical Exam Vital Signs: Vital Signs: Last Vital Signs Temp 97.8 F 10/25/23 07:22 Pulse 75 10/25/23 07:22 Resp 16 10/25/23 07:22 BP 170/74 H 10/25/23 07:22 Pulse Ox 98 10/25/23 07:22 O2 Del Method Room Air 10/25/23 07:22 BMI result Body Mass Index 32.4 Const: General: cooperative, healthy appearing and no acute distress Orientation/consciousness: oriented to person, oriented to place and oriented to time HEENT: Head: Yes normal to inspection Neck: Carotids: no bruits Chest: Chest palpation & inspection: normal inspection of the chest Resp: Effort & Inspection: normal respiratory effort and able to speak in complete sentences Auscultation: clear to auscultation bilaterally Cardio: Rate: regular rate Heart sounds: S1 normal heart sound present and S2 normal heart sound present GI: Inspection: Yes normal to inspection Skin: Other: Dressing clean dry intact General skin exam: no rashes or lesions noted Wounds: no wounds Neuro: General: oriented to person, oriented to place, oriented to time and CN's II-XI intact bilaterally Extrem: General: Yes normal to inspection, Yes full ROM and Yes no clubbing, cyanosis or edema Psych: Appearance: grossly normal and well kempt Speech and movement: Normal speech and movement present Affect: normal affect Progress Note: A&P Assessment and plan (1) PAD (peripheral artery disease): Status: Acute Assessment and Plan: Patient is status post amputation of left great toe and small toe. Appears to be doing relatively well. Will plan for dressing change for tomorrow. Should it appear well may be able to be discharged as early as tomorrow. Thank you for allowing us to assist in his care. If there are any questions or concerns please do not hesitate to contact us Time Spent With Patient Time: Total time managing care of this patient today ____ minutes. Procedures Date of Service Date of Service: 10/25/23 Quality Stroke Does the patient have a stroke diagnosis?: No VTE Prior VTE?: No VTE Risk Level:: Medical - moderate - high VTE Device Contraindication: Treatment Not Indicated VTE Drug Contraindication: N/A - Med Ordered
[2023-10-25 11:33] LABS: Glucose, Whole Blood 252 mg/dL (60-115)
--- NOTE | 2023-10-25 13:25 | MHC.CM.PN ---
EMR REVIEWED AND PER MD ROUNDS, PT MAY BE READY FOR DC TOMORROW S/P LEFT GT/ TOE AMP. [facility] UPDATED. CM WILL CONTINUE TO FOLLOW FOR ANY CHANGE IN DC PLAN/NEEDS.
--- NOTE | 2023-10-25 14:21 | HO.POSTANES ---
Post Anesthesia Evaluation Post Anesthesia Evaluation Date of Service: 10/25/23 Vital Signs: Vital Signs Temp Pulse Resp BP Pulse Ox O2 Del Method 10/25/23 07:22 97.8 F 75 16 170/74 H 98 Room Air 10/25/23 03:51 97.1 F 80 16 162/74 H 96 Room Air Anesthesia: General Mental Status: Awake Pain Control: Satisfactory Nausea/Vomiting: None Hydration: Adequate Anesthesia-Related Issues: No Anes. Related Issues
--- NOTE | 2023-10-25 14:40 | HO.WOUND ---
Wound Consult: Initial 58yr old?M [place] [facility] [place] - See progress notes and H&P for detailed history.? Wound consult placed for Left Foot 1st and 5th toe wounds POA. Patient is currently treated inpatient by Dr. Sheppard - no topical orders needed from inpatient wound care nurse at this time. Direct care nurse notified to place new consult should topical recommendations be needed - of note 10/24/23 patient had 1st and 5th toe amputated by Dr. Sheppard. ?
[2023-10-25 15:14] LABS: Vancomycin Random 16.2 mcg/mL (15-20)
[2023-10-25 15:18] VITALS: BP 142/70; PULSE 72; RESP 17; TEMP 36.2; O2SAT 98
[2023-10-25 15:36] LABS: Glucose, Whole Blood 297 mg/dL (60-115)
[2023-10-25] MEDS: 0.9 % Sodium Chloride Flush 3 ML SYRINGE IVFLUSH ×2 (16:18→23:57)
[2023-10-25 19:40] VITALS: BP 163/83; PULSE 72; RESP 17; TEMP 36.8; O2SAT 95
[2023-10-25] MEDS: Atorvastatin Calcium 80 MG TABLET PO (20:17)
[2023-10-25 20:28] LABS: Glucose, Whole Blood 271 mg/dL (60-115)
[2023-10-25] MEDS: bisacodyL 5 MG TABLET.DR 10 MG PO (20:31)
[2023-10-25] MEDS: Acetaminophen 325 MG TABLET 975 MG PO (21:44)
[2023-10-26] MEDS: Morphine Sulfate 4 MG/ML CARTRIDGE IVPUSH ×4 (00:11→14:40)
[2023-10-26 00:41] VITALS: RESP 18
[2023-10-26 03:50] VITALS: BP 139/82; PULSE 65; RESP 16; TEMP 36.9; O2SAT 96
[2023-10-26] MEDS: vancomycin HCL 1,500 MG in 0.9 % Sodium Chloride 500 ML 333.33 MG IV (04:07)
[2023-10-26] MEDS: Famotidine 20 MG TABLET 40 MG PO (06:12)
[2023-10-26 06:52] LABS: Anion Gap 12 (12-20); Blood Urea Nitrogen 18 mg/dL (9-16); Carbon Dioxide 23 mmol/L (22-29); Chloride 103 mmol/L (96-108); Creatinine Clr Calc Pharmacy 108.8; Estimated Glomerular Filt Rate > 60; Glucose Fasting 239 mg/dL (60-99); Potassium 4.1 mmol/L (3.3-5.1); Sodium 134 mmol/L (135-145)
[2023-10-26 06:57] LABS: Hematocrit 34.6 % (42.0-52.0); Hemoglobin 10.8 g/dl (14.0-18.0); Mean Corpuscular HGB Conc 31.2 g/dl (31.0-36.0); Mean Corpuscular Hemoglobin 25.5 pg (27.0-33.0); Mean Corpuscular Volume 81.6 fL (80.0-98.0); Platelet Count 268 X10*3/uL (160-400); Red Blood Count 4.24 X10*6/uL (4.60-5.80); Red Cell Distribution Width 15.5 % (11.0-16.0); White Blood Count 10.3 X10*3/uL (4.8-10.8)
[2023-10-26 07:28] VITALS: BP 166/76; PULSE 63; RESP 16; TEMP 36.2; O2SAT 96
[2023-10-26 07:36] LABS: Glucose, Whole Blood 212 mg/dL (60-115)
[2023-10-26] MEDS: Insulin Lispro 100 UNIT/ML 3 ML VIAL SUBCUT ×2 (07:57→11:28)
[2023-10-26] MEDS: Heparin Sodium,Porcine 5,000 UNIT/ML VIAL 5000 UNIT SUBCUT (07:57)
[2023-10-26] MEDS: Sertraline HCL 25 MG TABLET 75 MG PO (07:58)
[2023-10-26] MEDS: Metoprolol Succinate ER 50 MG TAB.ER.24H PO (07:58)
[2023-10-26] MEDS: Aspirin 81 MG TAB.CHEW PO (07:58)
[2023-10-26] MEDS: Spironolactone 25 MG TABLET PO (07:58)
[2023-10-26] MEDS: Amiodarone HCL 200 MG TABLET PO (07:58)
[2023-10-26] MEDS: Gabapentin 600 MG TABLET PO ×2 (07:58→14:03)
[2023-10-26] MEDS: Losartan Potassium 25 MG TABLET PO (07:58)
[2023-10-26] MEDS: Clopidogrel Bisulfate 75 MG TABLET PO (07:58)
[2023-10-26] MEDS: 0.9 % Sodium Chloride Flush 3 ML SYRINGE IVFLUSH (07:59)
[2023-10-26] MEDS: oxyCODONE HCl Immed Release 5 MG TABLET PO (08:06)
[2023-10-26] MEDS: Acetaminophen 325 MG TABLET 975 MG PO (08:06)
--- NOTE | 2023-10-26 08:27 | PM.DS ---
DS: Providers Provider Date of Service: 10/26/23 Date of admission: 10/18/23 19:59 Primary care physician: Shanta Haney MD Consults: 10/18/23 19:23 Consult to Vascular Surgery Routine Consulting Provider: [facility] V[facility] Services Reason for consultation: New onset severe left great toe pain with discoloration of the toes/foot Has provider been notified: Yes DS: Diagnosis Discharge Diagnosis (1) PAD (peripheral artery disease): Status: Acute DS: Summary Hospital Course Hospital Course: from initial hpi: [id number] with a PMH significant for 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 Patient states symptoms began yesterday afternoon when he started having pain in his left great toe which gradually grew worse as the day progressed. This morning pain had increased significantly and and great toe appeared black. When [facility] arrived to change dressings on his foot, they noted his toes appeared much more discolored than previous and contacted his vascular surgeon Dr. Sheppard, who advised him to present to the ED for further evaluation. Patient reports that his 5th digit on left foot has already been marked for amputation. Pt notes he currently feels better d/t pain meds, but reports having difficult walking secondary to pain. Denies any purulent drainage from wounds. Also reports chronic chest pain secondary to recent open heart surgery. He denies any other acute medical complaints: no SOB, difficulty breathing. No fever, chills, N/V/D, abd pain. In the ED pt was slightly hypertensive at 150/70, vitals otherwise WNL. Labs were significant for leukocytosis of 11.7, H&H 11.7/38.1, ALT 47, CRP 1.15, and ESR 57. No significant electrolyte abnormalities. Renal function baseline. Lactic acid 0.9. Aorta with runoff CTA found in left leg severe SFA and popliteal disease with possible emboli in the profunda femoris and popliteal artery. On the right found below the knee amputation with question of embolus in the profunda femoris. Also found no significant aortoiliac inflow disease. Pt was treated with hydromorphone, ondansetron, IVF, and Zosyn. Pt will be admitted to the hospital treatment and further evaluation of dry gangrene of toes on left foot. hospital course: patient was admitted for dry gangrene of multiple toes due to peripheral vascular disease and DM. he was treated with vancomycin. vascular performed amputation of 1st and 5th toe. will complete 10 days keflex and follow up outpatient with vascular. for CAD continued on asa, statin, plavix. for DM on basal bolus insulin. for htn on amlodipine, metoprolol, losartan, aldactone. for gerd ppi, for mood disorder on sertraline. patient feeling better will be discharged home. Time Attestation Discharge coordination time: Greater than 30 minutes Quality: Safe Use of Opioids Does Pt have an Active Cancer Diagnosis on the Problem List?: No Quality: Stroke Does the patient have a stroke diagnosis?: No Physical Exam Vital Signs: Vital Signs: Last Vital Signs Temp 97.1 F 10/26/23 07:28 Pulse 63 10/26/23 07:28 Resp 16 10/26/23 07:28 BP 166/76 H 10/26/23 07:28 Pulse Ox 96 10/26/23 07:28 O2 Del Method Room Air 10/26/23 07:28 BMI result Body Mass Index 32.4 General: AO X 3, no acute distress Resp: CTA bilateral, no accessory muscles used CVS: S1,S2,RRR GI: soft, non tender, non distended Neuro: motor grossly intact, alert Psych: appropriate affect, appropriate insight right bka DS: Data Data Completed and Pending Completed studies during hospitalization [Text1]: Procedures Detachment at Right 1st Toe, Complete, Open Approach (08/18/21) Detachment at Right Lower Leg, High, Open Approach (08/18/21) Dilation of Right Ureter with Intraluminal Device, Via Natural or Artificial Opening Endoscopic (06/21/20) Excision of Right Tarsal, Open Approach (08/18/21) Extirpation of Matter from Right Ureter, Via Natural or Artificial Opening Endoscopic (06/21/20) Fluoroscopy of Right Kidney, Ureter and Bladder (06/21/20) Insertion of Infusion Device into Superior Vena Cava, Percutaneous Approach (08/18/21) Pending studies at discharge: Pending at discharge 10/24/23 17:18 Surgical [PTH] Routine Labs on day of discharge: Laboratory Results - last 24 hr 10/25/23 10/25/23 10/25/23 08:07 08:07 08:07 WBC 11.1 H RBC 4.45 L Hgb 11.3 L Hct 36.5 L MCV 82.0 MCH 25.4 L MCHC 31.0 RDW 15.7 Plt Count 310 MPV 10.1 Absolute Nucleated RBC 0.000 Nucleated RBC % (auto) 0.0 Sodium 132 L Potassium 4.1 Chloride 96 Carbon Dioxide 25 Anion Gap 15 BUN 18 H Creatinine Cancelled 1.06 Cancelled Estim Creat Clear Calc Cancelled Estimated GFR POC Glucose Random Glucose Fasting Glucose Calcium Random Vancomycin 10/25/23 10/25/23 10/25/23 08:07 08:07 08:07 WBC RBC Hgb Hct MCV MCH MCHC RDW Plt Count MPV Absolute Nucleated RBC Nucleated RBC % (auto) Sodium Potassium Chloride Carbon Dioxide Anion Gap BUN Creatinine Estim Creat Clear Calc 89.3 Cancelled Estimated GFR Cancelled > 60 POC Glucose Random Glucose Fasting Glucose Calcium Random Vancomycin 10/25/23 10/25/23 10/25/23 08:07 11:24 14:47 WBC RBC Hgb Hct MCV MCH MCHC RDW Plt Count MPV Absolute Nucleated RBC Nucleated RBC % (auto) Sodium Potassium Chloride Carbon Dioxide Anion Gap BUN Creatinine Estim Creat Clear Calc Estimated GFR Cancelled POC Glucose 252 H Random Glucose 305 H Fasting Glucose Calcium 9.3 D Random Vancomycin 16.2 10/25/23 10/25/23 10/26/23 15:19 20:19 05:48 WBC 10.3 RBC 4.24 L Hgb 10.8 L Hct 34.6 L MCV 81.6 MCH 25.5 L MCHC 31.2 RDW 15.5 Plt Count 268 MPV 10.0 Absolute Nucleated RBC 0.000 Nucleated RBC % (auto) 0.0 Sodium 134 L Potassium 4.1 Chloride 103 Carbon Dioxide 23 Anion Gap 12 BUN 18 H Creatinine 0.87 Estim Creat Clear Calc 108.8 Estimated GFR > 60 POC Glucose 297 H 271 H Random Glucose Fasting Glucose 239 H Calcium 9.0 Random Vancomycin 10/26/23 07:30 WBC RBC Hgb Hct MCV MCH MCHC RDW Plt Count MPV Absolute Nucleated RBC Nucleated RBC % (auto) Sodium Potassium Chloride Carbon Dioxide Anion Gap BUN Creatinine Estim Creat Clear Calc Estimated GFR POC Glucose 212 H Random Glucose Fasting Glucose Calcium Random Vancomycin Discharge Plan Discharge Anticipated Discharge Date/Time: 10/26/23 08:23 Patient Disposition: Home Health Service Discharge Diagnosis: dfu Referrals: Shanta Haney MD [Primary Care Provider] - 1 Week Berto Sheppard MD [Physician] - 2 Weeks Discharge Medications: New oxycodone 5 mg Tablet 5 mg PO Q4H PRN (Reason: Pain, Moderate(Pain Scale 4-6)) Qty: 20 0RF Rx Instructions: Partial Fill upon patient request. cephalexin 500 mg capsule 500 mg PO BID Qty: 20 0RF Continued (DME) Bedside commode See Rx Instructions .Route .MEDSUPPLY Qty: 1 0RF Rx Instructions: As directed (DME) walker with wheels See Rx Instructions .Route .MEDSUPPLY Qty: 1 0RF Rx Instructions: As directed (DME) pen needle, diabetic [BD Ultra-Fine Short Pen Needle] 31 gauge x 5/16 needle See Rx Instructions .ROUTE .COMPLEX Qty: 100 5RF Dose Instruction: USE MARÍA LO INDICADO BENNETT VECES AL LIZZIE ANTES DE LAS COMIDAS Rx Instructions: USE MARÍA LO INDICADO BENNETT VECES AL LIZZIE ANTES DE LAS COMIDAS (DME) recliner See Rx Instructions .Route .MEDSUPPLY Qty: 1 0RF Rx Instructions: As directed (DME) FreeStyle Frank 2 [place] Misc See Rx Instructions .Route Qty: 1 0RF Rx Instructions: As directed (DME) FreeStyle Frank 2 Sensor Kit See Rx Instructions .Route Qty: 2 8RF Rx Instructions: As directed change every 14 days aspirin 81 mg tablet,chewable 81 mg PO DAILY Qty: 90 1RF metoprolol succinate 50 mg tablet extended release 24 hr 50 mg PO DAILY Qty: 90 1RF famotidine 40 mg tablet 40 mg PO DAILY melatonin 5 mg Tablet 5 mg PO BEDTIME PRN (Reason: Sleep) insulin lispro [Admelog U-100 Insulin lispro] 100 unit/mL Solution See Protocol subcut QIDACHS Qty: 10 0RF Protocol: Insulin Correction Scale Less than or equal to 110 ---- Give (units): 0 111 to 150 Give (units): 0 151 to 200 Give (units): 2 201 to 250 Give (units): 4 251 to 300 Give (units): 6 301 to 350 Give (units): 8 Greater than 350 Give (units): 10 Call MD if Blood Glucose > : 350 amiodarone 200 mg tablet 200 mg PO BID clopidogrel 75 mg tablet 75 mg DAILY tramadol 50 mg tablet 50 mg PO Q6H PRN (Reason: pain) pantoprazole 40 mg tablet,delayed release (DR/EC) 40 mg PO DAILY lidocaine 5 % adhesive patch,medicated 1 patch topical DAILY PRN (Reason: moderate pain) losartan 25 mg tablet 25 mg PO DAILY acetaminophen [Acetaminophen Extra Strength] 500 mg Tablet 1,000 mg PO Q6H PRN (Reason: Pain) insulin glargine [Lantus Solostar U-100 Insulin] 100 unit/mL (3 mL) insulin pen 34 unit subcut BEDTIME spironolactone 25 mg tablet 25 mg PO DAILY dapagliflozin propanediol [Farxiga] 10 mg tablet 10 mg PO QAM sertraline 50 mg tablet 75 mg PO DAILY gabapentin 600 mg tablet 600 mg PO TID Qty: 90 4RF (DME) blood-glucose meter [FreeStyle Lite Meter] Kit See Rx Instructions .Route Rx Instructions: As directed (DME) FreeStyle Lite Strips Strip See Rx Instructions .Route Rx Instructions: As directed atorvastatin 80 mg tablet 80 mg PO BEDTIME Discharge Orders: Discharge Order (Routine); Ordered 10/26/23 Ordered By: Davon Sandoval Diet: Advance to usual diet Activity on Discharge: As tolerated Stand Alone Forms: Patient Portal Discharge page Activity Restrictions/Additional Instructions: Wound care upon discharge to left great and 5th toe: xeroform, 4x4 and Kerlix wrap to be changed every other day. Allyvn dressing to calf wound. Please call Dr. Sheppard at [phone] for 2 week follow up for suture and staple removal Care Plan Goals: recovery Health Concerns: s/p amputatoin Plan of Treatment: 10 more days keflex, follow up vascular Assessment: see above
--- NOTE | 2023-10-26 09:47 | HO.VASCPN ---
Subjective Subjective Date of Service: 10/26/23 Patient reports: no new complaints and feels better Interval history: Very pleasant 58-year-old gentleman status post left 1st and 5th toe amputation. Appears to be doing extremely well. Is healing nicely in particular the great toe. He does also have a small calf ulcer which appears to be improving as well. Now presents for postoperative follow-up and dressing change. Physical Exam Vital Signs: Vital Signs: Last Vital Signs Temp 97.1 F 10/26/23 07:28 Pulse 63 10/26/23 07:28 Resp 16 10/26/23 07:28 BP 166/76 H 10/26/23 07:28 Pulse Ox 96 10/26/23 07:28 O2 Del Method Room Air 10/26/23 07:28 BMI result Body Mass Index 32.4 Const: General: cooperative, healthy appearing and no acute distress Orientation/consciousness: oriented to person, oriented to place and oriented to time HEENT: Head: Yes normal to inspection Neck: Carotids: no bruits Chest: Chest palpation & inspection: normal inspection of the chest Resp: Effort & Inspection: normal respiratory effort and able to speak in complete sentences Auscultation: clear to auscultation bilaterally Cardio: Rate: regular rate Heart sounds: S1 normal heart sound present and S2 normal heart sound present GI: Inspection: Yes normal to inspection Skin: Other: Right BKA well-healed Left 1st and 5th toe appear to be healing well. Small calf ulceration of 0.5 cm General skin exam: no rashes or lesions noted Wounds: amputation site Neuro: General: oriented to person, oriented to place, oriented to time and CN's II-XI intact bilaterally Extrem: General: Yes normal to inspection, Yes full ROM and Yes no clubbing, cyanosis or edema Psych: Appearance: grossly normal and well kempt Speech and movement: Normal speech and movement present Affect: normal affect Progress Note: A&P Assessment and plan (1) PAD (peripheral artery disease): Status: Acute Assessment and Plan: In short doing extremely well with toe amputations. Will need to be on aspirin and Plavix. Would recommend 10 days of p.o. Keflex. He can see us as an outpatient in approximately 2 weeks time. Thank you for allowing us to assist in his care. Time Spent With Patient Time: Total time managing care of this patient today ____ minutes. Procedures Date of Service Date of Service: 10/26/23 Quality Stroke Does the patient have a stroke diagnosis?: No VTE Prior VTE?: No VTE Risk Level:: Medical - moderate - high VTE Device Contraindication: Treatment Not Indicated VTE Drug Contraindication: N/A - Med Ordered
--- NOTE | 2023-10-26 10:54 | W.MHC.F2F ---
Service Date Service Date: 10/26/23 Encounter Date of encounter: 10/26/23 Reasons for Services Signs and symptoms assessed: recent surgery, difficulty ambulating Reason for nursing home: wound care (Wound care upon discharge to left great and 5th toe: xeroform, 4x4 and Kerlix wrap to be changed every other day. Allyvn dressing to calf wound. Please call Dr. Sheppard at [phone] for 2 week follow up for suture and staple removal), medication management and medication treatment Homebound: Leaving the home is medically contraindicated at this time without the asist of a device and/or another person due th the listed conditions above and below. Reason homebound: unsteady gait / fall risk Certification: Based on the above findings, I certify that this patient is confined to the home and needs intermittent nursing home care, physical therapy and/or speech therapy, or continues to need occupational therapy. The patient is under my care, and I have initiated the establishment of the plan of care. The patient will be followed by a physician who will periodically review the plan of care. Time Spent With Patient Time: Total time managing care of this patient today ____ minutes.
[2023-10-26 11:13] LABS: Glucose, Whole Blood 248 mg/dL (60-115)
--- NOTE | 2023-10-26 11:13 | MHC.CM.PN ---
PT TO [facility] HOME TODAY WITH RESUMPTION OF [facility] AND [facility] PT TO ARRANGE TRANSPORT
[2023-10-26 11:31] VITALS: BP 167/69; PULSE 63
[2023-10-26 14:23] LABS: Vancomycin Random 17.6 mcg/mL (15-20)
[2023-10-26 15:07] VITALS: BP 138/81; PULSE 67; RESP 14; TEMP 36.4; O2SAT 94
[2023-10-26 16:00] VITALS: O2SAT 96
== END 2023-10-26 16:28 | disposition home health service (06) | DRG 253 ==
LOC: HO.ED 20:22 → HO.EDOVER 20:26 → HO.S3 10-19 07:22
PROVIDERS: Student in an Organized Health Care Education/Training Program; Surgery Vascular Surgery; Admitting Provider Internal Medicine; Emergency Provider Emergency Medicine Emergency Medical Services; PCP Internal Medicine; Visit Provider Internal Medicine
PROC: 047U3Z1 Dilation of Left Peroneal Artery using Drug-Coated Balloon, Percutaneous Approach (ICD-10-PCS; principal; 2023-10-23 11:00)
PROC: 0Y6Q0Z0 Detachment at Left 1st Toe, Complete, Open Approach (ICD-10-PCS; principal; 2023-10-24 17:30)
DX: E11.52 Type 2 diabetes mellitus with diabetic peripheral angiopathy with gangrene (principal); I70.262 Atherosclerosis of native arteries of extremities with gangrene, left leg; L97.529 Non-pressure chronic ulcer of other part of left foot with unspecified severity; I25.10 Atherosclerotic heart disease of native coronary artery without angina pectoris; I10 Essential (primary) hypertension; K21.9 Gastro-esophageal reflux disease without esophagitis; E11.42 Type 2 diabetes mellitus with diabetic polyneuropathy; Z89.511 Acquired absence of right leg below knee; Z95.5 Presence of coronary angioplasty implant and graft; Z79.4 Long term (current) use of insulin; Z79.02 Long term (current) use of antithrombotics/antiplatelets; Z79.82 Long term (current) use of aspirin; Z79.899 Other long term (current) drug therapy
CPT/HCPCS: 36415; 37224; 37228; 37232; 75635; 76937; 80048; 80053; 80202; 82565; 82947; 83036; 83540; 83605; 85025; 85027; 85652; 86140; 87040; 88305; 88311; 99152; 99153; 99285; A4364; C1760; C1769; C1887; J1170; J1200; J1644; J2250; J2270; J2405; J2543; J2704; J2795; J3010; J3370; J3371; Q9967

== ENCOUNTER → 2023-10-18 19:59 | Outpatient (BNV) | payer MEDICARE, SELFPAY | PROVIDERS: Admitting Provider Internal Medicine; Emergency Provider Emergency Medicine Emergency Medical Services; PCP Internal Medicine; Visit Provider Surgery Vascular Surgery | DX: I73.9 Peripheral vascular disease, unspecified (principal) | CPT/HCPCS: 28810; 37228; 37232; 76937; 99024; 99152; 99232 ==

== ENCOUNTER → 2023-10-18 19:59 | Outpatient (BNV) | payer MEDICARE, SELFPAY | PROVIDERS: Admitting Provider Internal Medicine; Emergency Provider Emergency Medicine Emergency Medical Services; PCP Internal Medicine; Visit Provider Student in an Organized Health Care Education/Training Program | DX: I73.9 Peripheral vascular disease, unspecified (principal); T87.89 Other complications of amputation stump; Z89.511 Acquired absence of right leg below knee; Z89.412 Acquired absence of left great toe; Z89.422 Acquired absence of other left toe(s) | CPT/HCPCS: 99223; 99232; 99233; 99238; G0180 ==

== ENCOUNTER 2023-11-02 01:11 | Inpatient (IN) | payer MEDICARE, SELFPAY ==
--- NOTE | ~2023-11-02 | XR_ITS ---
EXAMINATION: XR FOOT, LEFT CLINICAL INFORMATION: pain hallux/5th MTP , ?underlying OM COMPARISON: 07/11/2023 TECHNIQUE: AP, lateral, and oblique views of the left foot. FINDINGS: Status post amputation through the first and fifth MTP joints. There is associated soft tissue swelling at the amputation sites along with skin blanca. No definite underlying cortical abnormality to specifically indicate osteomyelitis. No acute fracture is seen. Extensive vascular calcifications are noted. XR/XR foot LT 2V IMPRESSION: Status post amputation through the first and fifth MTP joints with associated soft tissue swelling. No definite radiographic evidence of osteomyelitis.
--- NOTE | ~2023-11-02 | MR_ITS ---
EXAMINATION: MR FOOT WITHOUT AND WITH CONTRAST, LEFT CLINICAL INFORMATION: Evaluate for osteomyelitis. COMPARISON: Radiographs 11/02/2023 TECHNIQUE: MRI of the left foot was performed before and after the intravenous administration of 10 mL Gadavist on a high-field scanner. FINDINGS: Postsurgical changes with resection of the great toe and the 5th toe. There is some artifact related to the skin blanca. Mild edema and/or postsurgical change adjacent to the 1st and 5th metatarsal heads. No focal fluid collection to indicate an abscess. No bone marrow changes to suggest osteomyelitis. Diffuse edema of the intrinsic muscles of the foot and fatty atrophy of the extensor digitorum brevis muscle. No metatarsal stress reaction or fracture. MR/MR foot LT wo/w con IMPRESSION: No evidence of osteomyelitis.
--- NOTE | 2023-11-02 01:15 | ECG_ITS ---
Test Reason : DN Blood Pressure : / mmHG Vent. Rate : 075 BPM Atrial Rate : 075 BPM P-R Int : 194 ms QRS Dur : 152 ms QT Int : 472 ms P-R-T Axes : 054 -59 096 degrees QTc Int : 527 ms Normal sinus rhythm Right bundle branch block Left anterior fascicular block Bifascicular block Left ventricular hypertrophy with repolarization abnormality ( R in aVL ) Possible Lateral infarct , age undetermined Abnormal ECG When compared with ECG of 11-SEP-2023 16:19, T wave inversion now evident in Anterior leads QT has lengthened Referred By: Leighann Espitia Electronically Signed By:Ashutosh Conner
[2023-11-02 01:19] VITALS: BP 137/62; PULSE 76; RESP 16; TEMP 36.7; O2SAT 97; BMI 34.4
--- NOTE | 2023-11-02 01:32 | ED_ITS ---
HPI - Wound/Laceration General Chief Complaint: Wound/Laceration Stated Complaint: FOOT PAIN Time Seen by Provider: 11/02/23 01:14 Source: patient Mode of arrival: EMS History of Present Illness HPI narrative: 58-year-old male, known diabetic, he is postop day 9 from surgical removal left great toe and 5th toe with complaints of increased redness and pain at the plantar surface of the MTP and is described as throbbing in nature but denies any fevers or chills. Related Data Home Medications Medication Instructions Recorded Confirmed blood sugar diagnostic (FreeStyle 12/01/22 06/28/23 Lite Strips) blood-glucose meter (FreeStyle 12/01/22 06/28/23 Lite Meter kit) atorvastatin 80 mg tablet 80 mg PO BEDTIME 06/20/23 10/18/23 sertraline 50 mg tablet 75 mg PO DAILY 08/25/23 10/18/23 famotidine 40 mg tablet 40 mg PO DAILY heartburn 09/11/23 10/18/23 melatonin 5 mg tablet 5 mg PO BEDTIME PRN Sleep 09/11/23 10/18/23 acetaminophen 500 mg tablet 1,000 mg PO Q6H PRN Pain 10/18/23 10/18/23 (Acetaminophen Extra Strength) amiodarone 200 mg tablet 200 mg PO BID 10/18/23 10/18/23 clopidogrel 75 mg tablet 75 mg DAILY 10/18/23 10/18/23 dapagliflozin propanediol 10 mg 10 mg PO QAM 10/18/23 10/18/23 tablet (Farxiga) insulin glargine 100 unit/mL (3 34 unit subcut BEDTIME 10/18/23 10/18/23 mL) subcutaneous pen (Lantus Solostar U-100 Insulin) lidocaine 5 % topical patch 1 patch topical DAILY PRN moderate 10/18/23 10/18/23 pain losartan 25 mg tablet 25 mg PO DAILY 10/18/23 10/18/23 pantoprazole 40 mg tablet,delayed 40 mg PO DAILY 10/18/23 10/18/23 release spironolactone 25 mg tablet 25 mg PO DAILY 10/18/23 10/18/23 tramadol 50 mg tablet 50 mg PO Q6H PRN pain 10/18/23 10/18/23 Previous Rx's Medication Instructions Recorded Bedside commode #1 ea 04/18/22 walker with wheels #1 ea 08/19/22 pen needle, diabetic 31 gauge x #100 ea 10/20/22 5/16 (BD Ultra-Fine Short Pen Needle) recliner #1 ea 11/23/22 flash glucose scanning reader #1 ea 12/02/22 (FreeStyle Frank 2 Assonet) flash glucose sensor (FreeStyle #2 ea 03/06/23 Frank 2 Sensor kit) gabapentin 600 mg tablet 600 mg PO TID #90 tabs 08/25/23 aspirin 81 mg chewable tablet 81 mg PO DAILY #90 tabs 09/10/23 metoprolol succinate 50 mg 50 mg PO DAILY #90 tabs 09/10/23 tablet,extended release 24 hr insulin lispro 100 unit/mL See Protocol subcut QIDACHS #10 mL 09/12/23 subcutaneous solution (Admelog U-100 Insulin lispro) cephalexin 500 mg capsule 500 mg PO BID #20 caps 10/26/23 oxycodone 5 mg tablet 5 mg PO Q4H PRN Pain, 10/26/23 Moderate(Pain Scale 4-6) #20 tabs oxycodone-acetaminophen 5 mg-325 1 tab PO TID PRN pain #10 tabs 10/31/23 mg tablet (Percocet) Allergies Allergy/AdvReac Type Severity Reaction Status Date / Time No Known Allergies Allergy Verified 11/02/23 01:23 [No Known Allergies*] Review of Systems 2 Review of Systems: Pertinent positives and negatives as stated in HPI [facility] Past Medical History Source: nursing notes reviewed Medical History 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 Diabetes mellitus with retinopathy, with long-term current use of insulin PAD (peripheral artery disease) Heartburn symptom Amputation stump infection Major depression, recurrent Erectile dysfunction Dyslipidemia Diabetes mellitus, with long-term current use of insulin Amputation stump complication Intractable left heel pain Chronic 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 Type 2 diabetes mellitus with diabetic polyneuropathy Type 2 diabetes mellitus with hyperglycemia Hyperlipidemia Chronic pancreatitis Essential hypertension Diabetes mellitus with hyperglycemia, with long-term current use of insulin Neuropathy Kidney calculus Failure of outpatient treatment Increased BMI Alcohol abuse CAD (coronary artery disease) Arthritis Surgical History S/P angiogram of extremity (06/28/23) History of right below knee amputation Status post below-knee amputation S/P debridement Hx of lithotripsy Status post laparoscopic cholecystectomy Hx of heart artery stent Family History Family History Mother [place] (myocardial infarction), Onset Age: 64 Diabetes mellitus HTN (hypertension) Maternal Grandmother Diabetes mellitus Social History Social History Household Members: Spouse Household Members Other:: and daughter Housing: House Do you presently have visiting nurse or other home services: Yes Alcohol intake: never Comment: pt ambulates with crutches. Patient Tobacco Use Status: Never used Tobacco Tobacco use type: Cigarette Cigarette Packs Per Day: 0.01 Cigarettes Per Day: 3 Years Smoked: 28 e-Cigarette/Vaping Use: Never Used Second Hand Smoke Exposure: No Substance Use Type: Marijuana Advance Directives: No Advance Directives Information Provided: No Advance Directives Date on File: 04/17/21 service: No Current occupational status: unemployed and disabled Cognitive needs: No Hearing needs: No Vision needs: Yes Physical Exam 2 Vital Signs: Vital Signs: Last Vital Signs Temp 98.1 F 11/02/23 01:19 Pulse 76 11/02/23 01:19 Resp 16 11/02/23 01:19 BP 137/62 11/02/23 01:19 Pulse Ox 97 11/02/23 01:19 O2 Del Method Room Air 11/02/23 01:19 BMI result Body Mass Index 34.4 VITAL SIGNS: Reviewed. GENERAL: Well developed, well nourished, in no acute distress. HEAD: Normocephalic/atraumatic EYES: PERRLA, EOMI LUNGS: Normal breath sounds. No adventitious sounds or accessory muscle use. SpO2<97> CARDIOVASCULAR: Regular rate and rhythm without noted murmurs ABDOMEN: Soft, non-tender, non-distended with bowel sounds. MUSCULOSKELETAL: No tenderness, deformities, or effusions noted on gross inspection. EXTREMITIES: No cyanosis, clubbing or edema. LEFT FOOT: Left hallux surgical site is approximated with blanca with dark drainage with a foul smell and noted erythema extending proximally approximately 4-1/2 cm on the medial aspect and on the plantar surface there is noted fullness and tenderness to palpation with mild erythema, surgical site for 5th toe removal with similar dark drainage with a foul odor less well-approximated and question possible early dehiscence SKIN: Inspection of the skin reveals no rashes NEUROLOGIC: Alert and oriented x 4. Strength and sensation to light touch were grossly intact x 4. Medications Administered Discontinued Medications Generic Name Dose Route Start Last Admin Trade Name Ochoaq PRN Reason Stop Dose Admin Acetaminophen 975 mg 11/02/23 01:56 11/02/23 02:10 Acetaminophen 325 Mg Tablet PO 11/02/23 01:57 975 mg ONCE ONE Administration Piperacillin Sod/Tazobactam 50 mls @ 100 mls/hr 11/02/23 01:33 11/02/23 02:46 Sod 3.375 gm/ Sodium Chloride IV 11/02/23 02:02 Infused ONCE ONE Infusion Oxycodone HCl 5 mg 11/02/23 01:56 11/02/23 02:10 Oxycodone Hcl Immed Release 5 Mg Tablet PO 11/02/23 01:57 5 mg ONCE ONE Administration Medical Decision Making Medical Decision Making [facility] Narrative: 58-year-old male with history and clinical presentation, DDX: Superimposed infection both surgical sites. Patient is started on antibiotics after obtaining lactic acid/blood cultures. I reviewed all investigations and patient has a noted leukocytosis without left shift and noted elevated platelets and a stable anemia. Coagulation studies are within normal limits. Chemistry indices do not demonstrate an JARRETT, there is a pseudohyponatremia secondary to hyperglycemia but no LFT derangements and CRP is elevated from patient's typical levels to 7.5. X-ray not suggestive of OM at this time. I discussed case with inpatient hospitalist who accepts admission. Differential Diagnosis Differential Diagnoses: The differential diagnosis associated with the presentation includes Please see the discussion Admission/Observation Consideration of admission/observation: Escalation of care including admission/observation considered Please see the discussion above Consult Healthcare Provider Management of the patient was discussed with: Hospitalist Please see the discussion above Lab Data [facility] Lab Attestation statement: I reviewed the patient's lab results. Please see the discussion above 11/02/23 02:04 11/02/23 02:04 Labs: Lab Results 11/02/23 Range/Units 02:04 WBC 15.3 H (4.8-10.8) X10*3/uL RBC 4.27 L (4.60-5.80) X10*6/uL Hgb 10.7 L (14.0-18.0) g/dl Hct 34.1 L (42.0-52.0) % MCV 79.9 L (80.0-98.0) fL MCH 25.1 L (27.0-33.0) pg MCHC 31.4 (31.0-36.0) g/dl RDW 15.8 (11.0-16.0) % Plt Count 408 H D (160-400) X10*3/uL MPV 10.0 (9.4-12.4) fL Immature Gran % (Auto) 1.4 H (0.0-0.4) % Neut % (Auto) 69.9 (45-73) % Lymph % (Auto) 17.5 L (20-40) % Ector % (Auto) 6.8 (2-11) % Eos % (Auto) 3.8 (0-4) % Baso % (Auto) 0.6 (0-2) % Lymph # (Auto) 2.7 (1.2-4.9) X10*3/uL Ector # (Auto) 1.1 (0.1-1.2) X10*3/uL Eos # (Auto) 0.6 H (0.0-0.4) X10*3/uL Baso # (Auto) 0.1 (0.0-0.2) X10*3/uL Abs Immat Gran (auto) 0.21 H (0.00-0.03) X10*3/uL Absolute Neuts (auto) 10.7 H (2.0-8.3) x10*3/uL Absolute Nucleated RBC 0.000 (0.0-0.012) X10*3/uL Nucleated RBC % (auto) 0.0 (0.0-0.2) /100WBC PT 12.8 (11.1-13.3) SEC INR 1.1 (0.9-1.1) Sodium 133 L (135-145) mmol/L Potassium 4.3 (3.3-5.1) mmol/L Chloride 102 (96-108) mmol/L Carbon Dioxide 24 (22-29) mmol/L Anion Gap 11 L (12-20) BUN 25 H (9-16) mg/dL Creatinine 0.97 (0.5-1.4) mg/dL Estim Creat Clear Calc 97.5 Estimated GFR > 60 Random Glucose 296 H (60-115) mg/dL Lactic Acid 1.6 (0.5-2.0) mmol/L Calcium 9.0 (8.4-10.2) mg/dL Total Bilirubin 0.2 (0.0-1.0) mg/dL AST 18 (5-37) U/L ALT 23 (0-40) U/L Alkaline Phosphatase 104 (39-117) U/L C-Reactive Protein 7.50 H (< or = 0.50) mg/dL Total Protein 8.5 H (6.5-8.0) g/dL Albumin 3.5 (3.5-5.0) g/dL Independent Interpretation I performed an independent interpretation of an: EKG Interpretation: Normal sinus rhythm, HR -75, no STEMI, RI within normal limits Radiology Impression Discussion of test interpretation with radiology: I have reviewed the radiologist's reading. Radiologist Impression: Please see the discussion above External Record Review External record reviewed: Inpatient record, Outpatient record, Prior outpatient labs and Prior outpatient radiology Chronic Conditions Patient?s care impacted by: Diabetes and Hypertension Critical Care Time Critical Care Time Critical Care Time: Yes Total Critical Care Time: 60 Attestation: I personally attest to this time spent taking care of the patient. Discharge Plan Discharge Clinical Impression: Post op infection, Hyperglycemia due to diabetes mellitus Patient Disposition: Admitted As Inpatient
[2023-11-02] MEDS: oxyCODONE HCl Immed Release 5 MG TABLET PO (02:10)
[2023-11-02] MEDS: Acetaminophen 325 MG TABLET 975 MG PO (02:10)
[2023-11-02] MEDS: Piperacillin Sodium/Tazobactam 3.375 GM in 0.9 % Sodium Chloride 50 ML IV (02:10)
[2023-11-02 02:13] LABS: MANUAL DIFF FLAG NO
[2023-11-02 02:14] LABS: Basophils Absolute Auto 0.1 X10*3/uL (0.0-0.2); Basophils Percent Auto 0.6 % (0-2); Eosinophils Absolute Auto 0.6 X10*3/uL (0.0-0.4); Eosinophils Percent Auto 3.8 % (0-4); Hematocrit 34.1 % (42.0-52.0); Hemoglobin 10.7 g/dl (14.0-18.0); Imm Gran Abs Auto 0.21 X10*3/uL (0.00-0.03); Imm Gran Pct Auto 1.4 % (0.0-0.4); Lymphocytes Absolute Auto 2.7 X10*3/uL (1.2-4.9); Lymphocytes Percent Auto 17.5 % (20-40); Mean Corpuscular HGB Conc 31.4 g/dl (31.0-36.0); Mean Corpuscular Hemoglobin 25.1 pg (27.0-33.0); Mean Corpuscular Volume 79.9 fL (80.0-98.0); Monocytes Absolute Auto 1.1 X10*3/uL (0.1-1.2); Monocytes Percent Auto 6.8 % (2-11); Neutrophils Absolute Auto 10.7 x10*3/uL (2.0-8.3); Neutrophils Percent Auto 69.9 % (45-73); Platelet Count 408 X10*3/uL (160-400); Red Blood Count 4.27 X10*6/uL (4.60-5.80); Red Cell Distribution Width 15.8 % (11.0-16.0); White Blood Count 15.3 X10*3/uL (4.8-10.8)
[2023-11-02 02:19] LABS: INTERNATIONAL NORM RATIO 1.1 (0.9-1.1); Prothrombin Time 12.8 SEC (11.1-13.3)
[2023-11-02 02:26] LABS: Lactic Acid 1.6 mmol/L (0.5-2.0)
[2023-11-02 02:31] LABS: Alanine Aminotransferase 23 U/L (0-40); Albumin Level 3.5 g/dL (3.5-5.0); Alkaline Phosphatase 104 U/L (39-117); Anion Gap 11 (12-20); Aspartate Amino Transferase 18 U/L (5-37); Bilirubin Total 0.2 mg/dL (0.0-1.0); Blood Urea Nitrogen 25 mg/dL (9-16); Carbon Dioxide 24 mmol/L (22-29); Chloride 102 mmol/L (96-108); Creatinine Clr Calc Pharmacy 97.5; Estimated Glomerular Filt Rate > 60; Glucose Random 296 mg/dL (60-115); Potassium 4.3 mmol/L (3.3-5.1); Sodium 133 mmol/L (135-145); Total Protein 8.5 g/dL (6.5-8.0)
[2023-11-02 03:26] LABS: Magnesium 2.1 mg/dL (1.6-2.6)
[2023-11-02 03:29] VITALS: BP 137/69; PULSE 76; RESP 16; O2SAT 97
[2023-11-02] MEDS: Magnesium Sulfate/H2O 2 GM/50 ML PIGGYBACK IV (04:09)
--- NOTE | 2023-11-02 04:10 | PC.NURSE ---
pt medicated per oct. dressing dry however out of place. new dressing to L. foot non adherent applied.
--- NOTE | 2023-11-02 04:23 | P.HPHOSP_ITS ---
History of Present Illness Date of Service: 11/02/23 Attending physician on admission: Radha Ariza Chief Complaint: Left foot pain Pierre West is a 58 years old man with past medical history significant for type 2 diabetes mellitus on insulin, PAD, right BKA, recent amputation of left 1st and 5th toe (by Dr. Sheppard; 10/24/23) due to diabetic ulcer, hyperlipidemia, essential hypertension and GERD presents to the emergency department complaining of worsening pain to the left foot (around amputation sites) since yesterday. He has been taking a course of Keflex and oxycodone for pain. He denied any fever or chills. He denied any headache, palpitations or dizziness. He denied any acute cardiopulmonary, gastrointestinal or genitourinary symptoms. In the ED, he was found to have normal vital signs. Blood workup is remarkable for leukocytosis. Glucose is 296 CRP is elevated. Renal function is normal LFTs are normal. There are no electrolyte imbalances. Left foot x-ray showed status post and amputation of 1st and 5th toe with associated soft tissue swelling without definitive radiographic evidence of osteomyelitis. ED tx: Zosyn 3.375 g IV, oxycodone 5 mg p.o., acetaminophen 975 mg p.o., magnesium 2 g IV Review of Systems 2 Review of Systems: All 12 systems were reviewed and normal except as noted in HPI. [facility] Medical History 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 Diabetes mellitus with retinopathy, with long-term current use of insulin PAD (peripheral artery disease) Heartburn symptom Amputation stump infection Major depression, recurrent Erectile dysfunction Dyslipidemia Diabetes mellitus, with long-term current use of insulin Amputation stump complication Intractable left heel pain Chronic 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 Type 2 diabetes mellitus with diabetic polyneuropathy Type 2 diabetes mellitus with hyperglycemia Hyperlipidemia Chronic pancreatitis Essential hypertension Diabetes mellitus with hyperglycemia, with long-term current use of insulin Neuropathy Kidney calculus Failure of outpatient treatment Increased BMI Alcohol abuse CAD (coronary artery disease) Arthritis Family History Mother [place] (myocardial infarction), Onset Age: 64 Diabetes mellitus HTN (hypertension) Maternal Grandmother Diabetes mellitus Surgical History S/P angiogram of extremity (11/01/23) History of right below knee amputation Status post below-knee amputation S/P debridement Hx of lithotripsy Status post laparoscopic cholecystectomy Hx of heart artery stent Social History Household Members: Spouse Household Members Other:: and daughter Housing: House Do you presently have visiting nurse or other home services: Yes Alcohol intake: never Comment: pt ambulates with crutches. Patient Tobacco Use Status: Never used Tobacco Tobacco use type: Cigarette Cigarette Packs Per Day: 0.01 Cigarettes Per Day: 3 Years Smoked: 28 Smoked in Last 30 Days: No e-Cigarette/Vaping Use: Never Used Second Hand Smoke Exposure: No Use of substances other than those prescribed or required for medical reasons: No Substance Use Type: Marijuana Advance Directives: No Advance Directives Information Provided: No Advance Directives Date on File: 04/17/21 service: No Current occupational status: unemployed and disabled Cognitive needs: No Hearing needs: No Vision needs: Yes Meds Allergies Allergy/AdvReac Type Severity Reaction Status Date / Time No Known Allergies Allergy Verified 11/02/23 01:23 [No Known Allergies*] Active Medications: Current Medications Acetaminophen (Acetaminophen 325 Mg Tablet) 650 mg PO Q6H PRN PRN Reason: Pain, Mild (Pain Scale 1-3) Sodium Chloride (Ns) 1,000 mls @ 100 mls/hr IVCONT .Q10H [facility] Piperacillin Sod/Tazobactam (Sod 3.375 gm/ Sodium Chloride) 50 mls @ 100 mls/hr IV Q8H [facility] Pharmacy Consult (Consult Rx Vancomycin Dosing) 1 each MISCELLANE DAILY PRN PRN Reason: Consult order Sodium Chloride (0.9 % Sodium Chloride Flush 3 Ml Syringe) 3 ml IVFLUSH QSHIFT [facility] Home Medications Medication Instructions Recorded Confirmed Last Taken Type blood sugar diagnostic (FreeStyle 12/01/22 06/28/23 Unknown History Lite Strips) blood-glucose meter (FreeStyle 12/01/22 06/28/23 Unknown History Lite Meter kit) atorvastatin 80 mg tablet 80 mg PO BEDTIME 06/20/23 11/02/23 10/17/23 History sertraline 50 mg tablet 75 mg PO DAILY 08/25/23 10/18/23 10/18/23 History famotidine 40 mg tablet 40 mg PO DAILY heartburn 09/11/23 11/02/23 10/18/23 History melatonin 5 mg tablet 5 mg PO BEDTIME PRN Sleep 09/11/23 10/18/23 Unknown History acetaminophen 500 mg tablet 1,000 mg PO Q6H PRN Pain 10/18/23 10/18/23 Unknown History (Acetaminophen Extra Strength) amiodarone 200 mg tablet 200 mg PO BID 10/18/23 10/18/23 10/18/23 History clopidogrel 75 mg tablet 75 mg DAILY 10/18/23 11/02/23 10/18/23 History dapagliflozin propanediol 10 mg 10 mg PO QAM 10/18/23 11/02/23 10/18/23 History tablet (Farxiga) insulin glargine 100 unit/mL (3 34 unit subcut BEDTIME 10/18/23 10/18/23 10/17/23 History mL) subcutaneous pen (Lantus Solostar U-100 Insulin) lidocaine 5 % topical patch 1 patch topical DAILY PRN moderate 10/18/23 10/18/23 10/18/23 History pain losartan 25 mg tablet 25 mg PO DAILY 10/18/23 10/18/23 10/18/23 History pantoprazole 40 mg tablet,delayed 40 mg PO DAILY 10/18/23 10/18/23 10/18/23 History release spironolactone 25 mg tablet 25 mg PO DAILY 10/18/23 10/18/23 10/18/23 History tramadol 50 mg tablet 50 mg PO Q6H PRN pain 10/18/23 10/18/23 10/18/23 History Physical Exam 2 Vital Signs and Narrative: Vital Signs: Last Vital Signs Temp 98.1 F 11/02/23 01:19 Pulse 76 11/02/23 03:29 Resp 16 11/02/23 03:29 BP 137/69 11/02/23 03:29 Pulse Ox 97 11/02/23 03:29 O2 Del Method Room Air 11/02/23 03:29 BMI result Body Mass Index 34.4 Constitutional - Awake and Alert, No apparent distress. Pleasant. Cooperative. Obese HEENT -normocephalic. Atraumatic. Normal sclerae. Moist oral mucosa Heart - regular rate and rhythm. No murmur Lungs - Normal lung expansion, Normal respiratory effort, No respiratory distress, CTA bilaterally Gastrointestinal - NT / ND; +BS; No rebound or guarding Extremities - left foot: 1st and 5th toe amputation: [place] in place. Erythematous areas around surgical wounds. Foul smelling discharge. Right BKA Skin - Warm/Dry Neurological - Alert & oriented x3, no gross focal weakness. Normal speech. Normal behavior. Psychological - Appropriate affect Results Labs 11/02/23 02:04 11/02/23 02:04 Labs: Laboratory Results - last 24 hr 11/02/23 02:04 MCV 79.9 L MCH 25.1 L MCHC 31.4 RDW 15.8 Plt Count 408 H D MPV 10.0 Immature Gran % (Auto) 1.4 H Neut % (Auto) 69.9 Lymph % (Auto) 17.5 L Hitchcock % (Auto) 6.8 Eos % (Auto) 3.8 Baso % (Auto) 0.6 Lymph # (Auto) 2.7 Hitchcock # (Auto) 1.1 Eos # (Auto) 0.6 H Baso # (Auto) 0.1 Abs Immat Gran (auto) 0.21 H Absolute Neuts (auto) 10.7 H Absolute Nucleated RBC 0.000 Nucleated RBC % (auto) 0.0 PT 12.8 INR 1.1 Anion Gap 11 L Estim Creat Clear Calc 97.5 Estimated GFR > 60 Random Glucose 296 H Lactic Acid 1.6 Calcium 9.0 Magnesium 2.1 Total Bilirubin 0.2 AST 18 ALT 23 Alkaline Phosphatase 104 C-Reactive Protein 7.50 H Total Protein 8.5 H Albumin 3.5 Imaging Radiologist's Impressions: Impressions Foot X-Ray 11/02/23 02:19 IMPRESSION: Status post amputation through the first and fifth MTP joints with associated soft tissue swelling. No definite radiographic evidence of osteomyelitis. Assessment and Plan (1) Post op infection: Qualifiers: Encounter type: initial encounter Postoperative infection type: u nspecified type Qualified Code(s): T81.40XA - Infection following a procedure, unspecified, initial encounter Status: Acute (2) Hyperglycemia due to diabetes mellitus: Status: Acute (3) Cellulitis of foot, left: Status: Acute (4) Atrial fibrillation: Qualifiers: Atrial fibrillation type: unspecified Qualified Code(s): I48.91 - Unspecified atrial fibrillation Status: Acute (5) PAD (peripheral artery disease): Status: Acute (6) Dyslipidemia: Status: Acute (7) Essential hypertension: Status: Acute (8) Diabetes mellitus, with long-term current use of insulin: Qualifiers: Diabetes mellitus type: type 2 Status: Acute Plan Pierre eWst is a 58 years old man admitted with: * Left foot: Amputation sites (1st and 5th toe) infection. Rule out osteomyelitis. Admit to hospitalist service. Continue empiric IV antibiotic therapy with Zosyn. Start treatment with vancomycin (hx of MRSA positive nares). Pain control with Dilaudid IV as needed. Continue gabapentin. Blood cultures obtained -will follow results. Left foot MRI. Surgery consult. * Type 2 diabetes mellitus. Last A1c 8.2. Continue Lantus, farxiga and insulin sliding scale. * Essential hypertension. Continue metoprolol, spironolactone and losartan. * GERD. Continue famotidine * Mood disorder. Continue sertraline. * CAD (s/p heart surgery) and PAD. Continue statin, aspirin and Plavix. * Hyperlipidemia. Continue statin * History of right BKA. * Atrial fibrillation. Currently rate and rhythm controlled. Patient is not sure about this diagnosis and not sure if he is taking amiodarone (will continue this once it is verified by pharmacy). DVT prophylaxis: On aspirin, Plavix. Code status: Full Patient will need hospitalization for at least 2 midnights for left foot cellulitis associated to recent amputation treatment with empiric IV antibiotic therapy and evaluation by surgical service. Quality Stroke Does the patient have a stroke diagnosis?: No VTE Prior VTE?: No VTE Risk Level:: Medical - moderate - high VTE Device Contraindication: Treatment Not Indicated VTE Drug Contraindication: N/A - Med Ordered
[2023-11-02] MEDS: 0.9 % Sodium Chloride 1,000 ML 100 ML IVCONT ×3 (04:38→15:18)
[2023-11-02] MEDS: HYDROmorphone HCl 1 MG/ML SYRINGE IVPUSH (04:38)
[2023-11-02] MEDS: vancomycin/NS 2,000 MG/500 ML PLAST..BAG 250 MG IV (04:44)
[2023-11-02 06:08] VITALS: BP 125/63; PULSE 70; RESP 20; TEMP 36.3; O2SAT 97
[2023-11-02 06:27] LABS: MANUAL DIFF FLAG NO
[2023-11-02 06:38] LABS: Basophils Absolute Auto 0.1 X10*3/uL (0.0-0.2); Basophils Percent Auto 0.7 % (0-2); Eosinophils Absolute Auto 0.6 X10*3/uL (0.0-0.4); Eosinophils Percent Auto 4.1 % (0-4); Hematocrit 34.1 % (42.0-52.0); Hemoglobin 10.4 g/dl (14.0-18.0); Imm Gran Abs Auto 0.21 X10*3/uL (0.00-0.03); Imm Gran Pct Auto 1.5 % (0.0-0.4); Lymphocytes Absolute Auto 2.6 X10*3/uL (1.2-4.9); Lymphocytes Percent Auto 19.2 % (20-40); Mean Corpuscular HGB Conc 30.5 g/dl (31.0-36.0); Mean Corpuscular Hemoglobin 24.8 pg (27.0-33.0); Mean Corpuscular Volume 81.4 fL (80.0-98.0); Mean Platelet Volume 10.3 fL (9.4-12.4); Monocytes Absolute Auto 1.1 X10*3/uL (0.1-1.2); Monocytes Percent Auto 8.2 % (2-11); Neutrophils Percent Auto 66.3 % (45-73); Platelet Count 382 X10*3/uL (160-400); Red Blood Count 4.19 X10*6/uL (4.60-5.80); Red Cell Distribution Width 15.6 % (11.0-16.0); White Blood Count 13.7 X10*3/uL (4.8-10.8)
[2023-11-02 06:55] LABS: Alanine Aminotransferase 25 U/L (0-40); Albumin Level 3.1 g/dL (3.5-5.0); Alkaline Phosphatase 104 U/L (39-117); Anion Gap 13 (12-20); Aspartate Amino Transferase 20 U/L (5-37); Bilirubin Total 0.2 mg/dL (0.0-1.0); Blood Urea Nitrogen 23 mg/dL (9-16); Calcium 8.5 mg/dL (8.4-10.2); Carbon Dioxide 23 mmol/L (22-29); Chloride 103 mmol/L (96-108); Estimated Glomerular Filt Rate > 60; Glucose Random 178 mg/dL (60-115); Potassium 4.2 mmol/L (3.3-5.1); Sodium 135 mmol/L (135-145); Total Protein 7.7 g/dL (6.5-8.0)
[2023-11-02 07:21] VITALS: BP 131/57; PULSE 71; RESP 16; TEMP 36.6; O2SAT 97
--- NOTE | 2023-11-02 07:24 | PC.NURSE ---
this RN resumed care of p at this time. a&ox4. vss and up to date. pt verbalizing 9/10 pain in the left toes. pt requesting PRN medication but d/t timing - unable to administer at this time. will administer when able. pt resting comfortably in bed in no apparent distress w/ the lights dimmed. IVF/abx continues to infuse at this time. no sob/wob noted. respirations even and unlabored. pt waiting for bed assignment. call arthur placed within reach.
[2023-11-02] MEDS: 0.9 % Sodium Chloride Flush 3 ML SYRINGE IVFLUSH (07:27)
[2023-11-02 07:39] LABS: Glucose, Whole Blood 163 mg/dL (60-115)
--- NOTE | 2023-11-02 08:06 | PHA.MEDREC ---
Pharmacy Consult ? Medication Reconciliation Pharmacy has completed the medication reconciliation. Confirmed medications with patient and claim history. Patient reports that he is only taking 50mg Sertraline. Prescription is for 75mg daily.
[2023-11-02] MEDS: Insulin Lispro 100 UNIT/ML 3 ML VIAL SUBCUT ×4 (08:15→20:15)
[2023-11-02] MEDS: Gabapentin 600 MG TABLET PO ×3 (08:15→20:15)
[2023-11-02] MEDS: Losartan Potassium 25 MG TABLET PO (08:15)
[2023-11-02] MEDS: Aspirin 81 MG TAB.CHEW PO (08:15)
[2023-11-02] MEDS: Metoprolol Succinate ER 50 MG TAB.ER.24H PO (08:16)
[2023-11-02] MEDS: Famotidine 20 MG TABLET 40 MG PO (08:16)
[2023-11-02] MEDS: Spironolactone 25 MG TABLET PO (08:16)
[2023-11-02] MEDS: Clopidogrel Bisulfate 75 MG TABLET PO (08:16)
[2023-11-02] MEDS: HYDROmorphone HCl 0.5 MG/0.5 ML SYRINGE 1 MG IVPUSH ×4 (08:48→21:35)
[2023-11-02] MEDS: Empagliflozin 10 MG TABLET PO (08:48)
--- NOTE | 2023-11-02 08:50 | PC.NURSE ---
pt c/o 04/06 pain in the left foot. pt medicated per prn order. effectiveness pending.
[2023-11-02 11:43] LABS: Glucose, Whole Blood 162 mg/dL (60-115)
[2023-11-02 12:09] VITALS: BP 129/60; PULSE 70; RESP 16; TEMP 36.8; O2SAT 97
--- NOTE | 2023-11-02 12:14 | MHC.CM.PN ---
PT REPORTS HE LIVES WITH HIS , SON AND STEP-SON HE IS INDEPENDENT WITH [employer] PT HAS A WHEEL CHAIR, PROSTHETIC, WALKER AND CRUTCHES HE IS ACTIVE WITH [facility] FOR WOUND CARE AND PT HCP ON FILE PCP: PRISCILA SANCHES [facility] DELIVERED DCP: HOME, RESUME [facility] TO TRANSPORT
--- NOTE | 2023-11-02 13:12 | PC.NURSE ---
pt verbalizing pain level increased to an 8/10 since last prn medication administration. prn medication now administered per provider order. effectiveness pending. pt continues to wait for bed assignment at this time. call arthur placed within reach.
[2023-11-02] MEDS: gadobutroL 10 ML VIAL IVPUSH (14:40)
[2023-11-02] MEDS: Acetaminophen 325 MG TABLET 650 MG PO (15:18)
--- NOTE | 2023-11-02 15:21 | PC.NURSE ---
completed MRI, able to slide self onto hospital bed. complaining of headache at this time, utilized PRN tylenol for pain. medicated per the MAR, IV fluids infusing at this time. offering no other complaints, no obvious signs/symptoms of distress noted.
--- NOTE | 2023-11-02 15:37 | P.HPGS_ITS ---
History of Present Illness History of Present Illness Date of Service: 11/02/23 Chief complaint: Infected Surgical Wound Narrative: Pierre West is a 58 year old male with history of peripheral vascular disease, diabetes mellitus, status post amputation of left 1st and 5th toes on 10/24/[address] Sheppard. He also has a previous history of a right BKA. He presents to the emergency department with increased pain in the left foot at the amputation site. He notes a darkening of the skin with increased pain especially when pressure is applied to the all of the foot. He has been admitted to the hospitalist service for IV antibiotics. Review of Systems 2 Review of Systems: Yes all other systems are reviewed and are negative Musculoskeletal: Comments: Foot pain Integumentary/Breasts: Skin/Breast: Reports skin ulcer PMFSH Past Medical History Medical History 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 Diabetes mellitus with retinopathy, with long-term current use of insulin PAD (peripheral artery disease) Heartburn symptom Amputation stump infection Major depression, recurrent Erectile dysfunction Dyslipidemia Diabetes mellitus, with long-term current use of insulin Amputation stump complication Intractable left heel pain Chronic 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 Type 2 diabetes mellitus with diabetic polyneuropathy Type 2 diabetes mellitus with hyperglycemia Hyperlipidemia Chronic pancreatitis Essential hypertension Diabetes mellitus with hyperglycemia, with long-term current use of insulin Neuropathy Kidney calculus Failure of outpatient treatment Increased BMI Alcohol abuse CAD (coronary artery disease) Arthritis Family History Family History Mother [place] (myocardial infarction), Onset Age: 64 Diabetes mellitus HTN (hypertension) Maternal Grandmother Diabetes mellitus Surgical History Surgical History S/P angiogram of extremity (06/28/23) History of right below knee amputation Status post below-knee amputation S/P debridement Hx of lithotripsy Status post laparoscopic cholecystectomy Hx of heart artery stent Social History Social History Household Members: Spouse Household Members Other:: and daughter Housing: House Do you presently have visiting nurse or other home services: Yes Alcohol intake: never Comment: pt ambulates with crutches. Patient Tobacco Use Status: Never used Tobacco Tobacco use type: Cigarette Cigarette Packs Per Day: 0.01 Cigarettes Per Day: 3 Years Smoked: 28 Smoked in Last 30 Days: No e-Cigarette/Vaping Use: Never Used Second Hand Smoke Exposure: No Use of substances other than those prescribed or required for medical reasons: No Substance Use Type: Marijuana Advance Directives: No Advance Directives Information Provided: No Advance Directives Date on File: 04/17/21 Nutrition Risks: No Nutritional Risk service: No Current occupational status: unemployed and disabled Cognitive needs: No Hearing needs: No Vision needs: Yes Meds Allergies Allergy/AdvReac Type Severity Reaction Status Date / Time No Known Allergies Allergy Verified 11/02/23 01:23 [No Known Allergies*] Active Medications: Current Medications Acetaminophen (Acetaminophen 325 Mg Tablet) 650 mg PO Q6H PRN PRN Reason: Pain, Mild (Pain Scale 1-3) Last Admin: 11/02/23 15:18 Dose: 650 mg Aspirin (Aspirin 81 Mg Tab.Chew) 81 mg PO DAILY [facility] Last Admin: 11/02/23 08:15 Dose: 81 mg Atorvastatin Calcium (Atorvastatin Calcium 80 Mg Tablet) 80 mg PO BEDTIME [facility] Clopidogrel Bisulfate (Clopidogrel Bisulfate 75 Mg Tablet) 75 mg PO DAILY [facility] Last Admin: 11/02/23 08:16 Dose: 75 mg Dextrose (Dextrose 50 % 25 Gm/50 Ml Syringe) 25 gm IVPUSH Q15M PRN; Protocol PRN Reason: per Hypoglycemia Standing Ord. Empagliflozin (Empagliflozin 10 Mg Tablet) 10 mg PO DAILY [facility] Last Admin: 11/02/23 08:48 Dose: 10 mg Famotidine (Famotidine 20 Mg Tablet) 40 mg PO DAILY [facility] Last Admin: 11/02/23 08:16 Dose: 40 mg Gabapentin (Gabapentin 600 Mg Tablet) 600 mg PO TID [facility] Last Admin: 11/02/23 15:18 Dose: 600 mg Glucose (Glucose Gel 15 Gm Gel..Gram.) 15 gm PO Q15M PRN; Protocol PRN Reason: per Hypoglycemia Standing Ord. Hydromorphone HCl (Hydromorphone Hcl 0.5 Mg/0.5 Ml Syringe) 1 mg IVPUSH Q4H PRN; Protocol PRN Reason: Pain, Severe (Pain Scale 7-10) Last Admin: 11/02/23 13:11 Dose: 1 mg Piperacillin Sod/Tazobactam (Sod 3.375 gm/ Sodium Chloride) 50 mls @ 100 mls/hr IV Q6H [facility] Sodium Chloride (Ns) 1,000 mls @ 100 mls/hr IVCONT .Q10H [facility] Stop: 11/02/23 16:59 Last Admin: 11/02/23 15:18 Dose: 100 mls/hr Vancomycin HCl 1,500 mg/ (Sodium Chloride) 500 mls @ 333.333 mls/hr IV Q12H [facility] Insulin Glargine (Insulin Glargine,Hum.Rec.Anlog 100 Unit/Ml 10 Ml Vial) 34 unit SUBCUT BEDTIME [facility] Insulin Human Lispro (Insulin Lispro 100 Unit/Ml 3 Ml Vial) 0 unit SUBCUT QIDACHS [facility]; Protocol Last Admin: 11/02/23 13:07 Dose: 2 unit Losartan Potassium (Losartan Potassium 25 Mg Tablet) 25 mg PO DAILY [facility]; Protocol Last Admin: 11/02/23 08:15 Dose: 25 mg Metoprolol Succinate (Metoprolol Succinate Er 50 Mg Tab.Er.24h) 50 mg PO DAILY [facility]; Protocol Last Admin: 11/02/23 08:16 Dose: 50 mg Pharmacy Consult (Consult Rx Vancomycin Dosing) 1 each MISCELLANE DAILY PRN PRN Reason: Consult order Sodium Chloride (0.9 % Sodium Chloride Flush 3 Ml Syringe) 3 ml IVFLUSH QSHIFT [facility] Last Admin: 11/02/23 15:17 Dose: Not Given Spironolactone (Spironolactone 25 Mg Tablet) 25 mg PO DAILY [facility]; Protocol Last Admin: 11/02/23 08:16 Dose: 25 mg Home Medications Medication Instructions Recorded Confirmed Last Taken Type blood sugar diagnostic (FreeStyle 12/01/22 06/28/23 Unknown History Lite Strips) blood-glucose meter (FreeStyle 12/01/22 06/28/23 Unknown History Lite Meter kit) atorvastatin 80 mg tablet 80 mg PO BEDTIME 06/20/23 11/02/23 11/01/23 History sertraline 50 mg tablet 50 mg PO DAILY 08/25/23 11/02/23 11/01/23 History famotidine 40 mg tablet 40 mg PO DAILY heartburn 09/11/23 11/02/23 11/01/23 History melatonin 5 mg tablet 5 mg PO BEDTIME PRN Sleep 09/11/23 11/02/23 11/01/23 History acetaminophen 500 mg tablet 1,000 mg PO Q6H PRN Pain 10/18/23 11/02/23 11/01/23 History (Acetaminophen Extra Strength) amiodarone 200 mg tablet 200 mg PO BID 10/18/23 11/02/23 11/01/23 History clopidogrel 75 mg tablet 75 mg DAILY 10/18/23 11/02/23 11/01/23 History dapagliflozin propanediol 10 mg 10 mg PO QAM 10/18/23 11/02/23 11/01/23 History tablet (Farxiga) insulin glargine 100 unit/mL (3 34 unit subcut BEDTIME 10/18/23 11/02/23 11/01/23 History mL) subcutaneous pen (Lantus Solostar U-100 Insulin) lidocaine 5 % topical patch 1 patch topical DAILY PRN moderate 10/18/23 11/02/23 10/18/23 History pain losartan 25 mg tablet 25 mg PO DAILY 10/18/23 11/02/23 11/01/23 History pantoprazole 40 mg tablet,delayed 40 mg PO DAILY 10/18/23 11/02/23 11/01/23 History release spironolactone 25 mg tablet 25 mg PO DAILY 10/18/23 11/02/23 11/01/23 History tramadol 50 mg tablet 50 mg PO Q6H PRN pain 10/18/23 11/02/23 10/18/23 History Physical Exam 2 Vital Signs: Vital Signs: Last Vital Signs Temp 98.2 F 11/02/23 12:09 Pulse 70 11/02/23 12:09 Resp 16 11/02/23 12:09 BP 129/60 11/02/23 12:09 Pulse Ox 97 11/02/23 12:09 O2 Del Method Room Air 11/02/23 12:09 BMI result Body Mass Index 34.4 Const: General: no acute distress Nutritional Appearance: well nourished Orientation/consciousness: patient oriented x3 Limitations: wheelchair HEENT: Head: Yes normocephalic and Yes atraumatic Resp: Effort & Inspection: normal respiratory effort, no audible wheezes, no cough and no respiratory distress GI: Inspection: Yes normal to inspection Neuro: General: patient oriented x3 Extrem: Other: Status post right BKA, left 5th and 1st toe amputations. Dressings changed to the left foot. There is darkening between the sutures of the surrounding skin. Sutures in the 5th toe base are pulling through and may need to be removed. There is slight erythema surrounding the great toe base. Clean sterile dressings applied. Upper/lower leg/hip images: 1. Results Results Labs: Short CBC 11/02/23 11/02/23 Range/Units 02:04 05:24 WBC 15.3 H 13.7 H (4.8-10.8) X10*3/uL Hgb 10.7 L 10.4 L (14.0-18.0) g/dl Hct 34.1 L 34.1 L (42.0-52.0) % Plt Count 408 H D 382 (160-400) X10*3/uL BMP 11/02/23 11/02/23 02:04 05:24 Sodium 133 L 135 Potassium 4.3 4.2 Chloride 102 103 Carbon Dioxide 24 23 BUN 25 H 23 H Creatinine 0.97 0.83 Calcium 9.0 8.5 Liver Function 11/02/23 11/02/23 Range/Units 02:04 05:24 Total Bilirubin 0.2 0.2 (0.0-1.0) mg/dL AST 18 20 (5-37) U/L ALT 23 25 (0-40) U/L Alkaline Phosphatase 104 104 (39-117) U/L Albumin 3.5 3.1 L (3.5-5.0) g/dL Assessment and Plan (1) Peripheral arterial disease: Status: Acute (2) Acute pain of left foot: Status: Acute Plan Status post left foot amputation of the great toe and 5th toe on 10/24/2023. There are some changes in the surrounding skin with erythema in darkening of the skin. Recommend continued IV antibiotics, leg elevation and continued local wound care. Sutures may need to be removed if no improvement with antibiotics. Will monitor during his hospitalization. Quality Stroke Does the patient have a stroke diagnosis?: No VTE Prior VTE?: No VTE Risk Level:: Medical - moderate - high VTE Device Contraindication: Treatment Not Indicated VTE Drug Contraindication: N/A - Med Ordered Procedures Date of Service Date of Service: 11/02/23
--- NOTE | 2023-11-02 15:44 | PM.EVENT ---
Event Note Date of Service: 11/02/23 Event Note: Seen and evaluated this morning Complaining of pain and drainage from surgical site no fever or chills Pending surgery evaluation Continue Antibiotics for now Time Spent With Patient Time: Total time managing care of this patient today ____ minutes.
[2023-11-02 16:17] LABS: Glucose, Whole Blood 184 mg/dL (60-115)
[2023-11-02] MEDS: vancomycin HCL 1,500 MG in 0.9 % Sodium Chloride 500 ML 333.33 MG IV (17:17)
[2023-11-02 19:09] LABS: Glucose, Whole Blood 152 mg/dL (60-115)
[2023-11-02] MEDS: Atorvastatin Calcium 80 MG TABLET PO (20:15)
[2023-11-02] MEDS: Insulin Glargine,Hum.rec.anlog 100 UNIT/ML 10 ML VIAL 34 UNIT SUBCUT (20:16)
--- NOTE | 2023-11-02 20:35 | PC.NURSE ---
Assumed care of the pt around 1999. Pt is resting in bed at this time, complaining of 8/10 pain in his foot. I explained that I can give another dose of dilaudid at 9:18, pt is agreeable and is willing to wait for medications. Pt was medicated with PM medications. Pt has been using the urinal appropriately. A&Ox4, GCS 15. No other complaints at this time. Plan is for pt to be moved upstairs on IV antibiotics.
[2023-11-03] MEDS: HYDROmorphone HCl 0.5 MG/0.5 ML SYRINGE 1 MG IVPUSH ×6 (02:09→22:32)
[2023-11-03] MEDS: vancomycin HCL 1,500 MG in 0.9 % Sodium Chloride 500 ML 333.33 MG IV (04:40)
[2023-11-03 05:18] VITALS: BP 160/77; PULSE 79; RESP 16; TEMP 36.9; O2SAT 97
[2023-11-03 05:54] LABS: Hematocrit 33.3 % (42.0-52.0); Hemoglobin 10.1 g/dl (14.0-18.0); Mean Corpuscular HGB Conc 30.3 g/dl (31.0-36.0); Mean Corpuscular Hemoglobin 24.6 pg (27.0-33.0); Mean Platelet Volume 9.9 fL (9.4-12.4); Platelet Count 361 X10*3/uL (160-400); Red Blood Count 4.11 X10*6/uL (4.60-5.80); Red Cell Distribution Width 15.6 % (11.0-16.0); White Blood Count 13.3 X10*3/uL (4.8-10.8)
[2023-11-03 06:27] LABS: Anion Gap 12 (12-20); Blood Urea Nitrogen 17 mg/dL (9-16); Calcium 8.5 mg/dL (8.4-10.2); Carbon Dioxide 26 mmol/L (22-29); Chloride 102 mmol/L (96-108); Estimated Glomerular Filt Rate > 60; Glucose Random 146 mg/dL (60-115); Potassium 4.4 mmol/L (3.3-5.1); Sodium 136 mmol/L (135-145)
[2023-11-03 07:06] LABS: Glucose, Whole Blood 145 mg/dL (60-115)
[2023-11-03 07:39] VITALS: BP 151/72; PULSE 73; RESP 20; TEMP 36.9; O2SAT 94
--- NOTE | 2023-11-03 08:05 | PM.PNGS ---
Subjective Subjective Date of Service: 11/03/23 Interval history: Overall patient feels improved this morning with less foot pain. Was able to sleep during the night. Physical Exam Vital Signs: Vital Signs: Last Vital Signs Temp 98.5 F 11/03/23 07:39 Pulse 73 11/03/23 07:39 Resp 20 11/03/23 07:39 BP 151/72 H 11/03/23 07:39 Pulse Ox 94 11/03/23 07:39 O2 Del Method Room Air 11/03/23 07:39 BMI result Body Mass Index 34.4 Const: General: no acute distress Nutritional Appearance: well nourished Orientation/consciousness: patient oriented x3 Resp: Effort & Inspection: normal respiratory effort Neuro: General: patient oriented x3 Extrem: Other: Dressings changed to left foot. Decreased erythema noted at both incisions. Minimal discharge from the great toe base. Minimal tenderness now at the base of the great toe. No erythema noted in the 5th toe base. Clean sterile dressings applied. Objective Data Active Medications Acetaminophen (Acetaminophen 325 Mg Tablet) 650 mg PO Q6H PRN PRN Reason: Pain, Mild (Pain Scale 1-3) Last Admin: 11/02/23 15:18 Dose: 650 mg Documented By: CONSUELO Aspirin (Aspirin 81 Mg Tab.Chew) 81 mg PO DAILY [facility] Last Admin: 11/02/23 08:15 Dose: 81 mg Documented By: GLIES Atorvastatin Calcium (Atorvastatin Calcium 80 Mg Tablet) 80 mg PO BEDTIME [facility] Last Admin: 11/02/23 20:15 Dose: 80 mg Documented By: VINCENT Clopidogrel Bisulfate (Clopidogrel Bisulfate 75 Mg Tablet) 75 mg PO DAILY [facility] Last Admin: 11/02/23 08:16 Dose: 75 mg Documented By: GILES Dextrose (Dextrose 50 % 25 Gm/50 Ml Syringe) 25 gm IVPUSH Q15M PRN; Protocol PRN Reason: per Hypoglycemia Standing Ord. Empagliflozin (Empagliflozin 10 Mg Tablet) 10 mg PO DAILY [facility] Last Admin: 11/02/23 08:48 Dose: 10 mg Documented By: GILES Famotidine (Famotidine 20 Mg Tablet) 40 mg PO DAILY [facility] Last Admin: 11/02/23 08:16 Dose: 40 mg Documented By: GILES Gabapentin (Gabapentin 600 Mg Tablet) 600 mg PO TID [facility] Last Admin: 11/02/23 20:15 Dose: 600 mg Documented By: VINCENT Glucose (Glucose Gel 15 Gm Gel..Gram.) 15 gm PO Q15M PRN; Protocol PRN Reason: per Hypoglycemia Standing Ord. Hydromorphone HCl (Hydromorphone Hcl 0.5 Mg/0.5 Ml Syringe) 1 mg IVPUSH Q4H PRN; Protocol PRN Reason: Pain, Severe (Pain Scale 7-10) Last Admin: 11/03/23 06:16 Dose: 1 mg Documented By: VINCENT Piperacillin Sod/Tazobactam (Sod 3.375 gm/ Sodium Chloride) 50 mls @ 100 mls/hr IV Q6H [facility] Vancomycin HCl 1,500 mg/ (Sodium Chloride) 500 mls @ 333.333 mls/hr IV Q12H [facility] Last Infusion: 11/03/23 06:44 Dose: Infused Documented By: VINCENT Insulin Glargine (Insulin Glargine,Hum.Rec.Anlog 100 Unit/Ml 10 Ml Vial) 34 unit SUBCUT BEDTIME [facility] Last Admin: 11/02/23 20:16 Dose: 34 unit Documented By: VINCENT Insulin Human Lispro (Insulin Lispro 100 Unit/Ml 3 Ml Vial) 0 unit SUBCUT QIDACHS [facility]; Protocol Last Admin: 11/02/23 20:15 Dose: 2 unit Documented By: VINCENT Losartan Potassium (Losartan Potassium 25 Mg Tablet) 25 mg PO DAILY [facility]; Protocol Last Admin: 11/02/23 08:15 Dose: 25 mg Documented By: GILES Metoprolol Succinate (Metoprolol Succinate Er 50 Mg Tab.Er.24h) 50 mg PO DAILY [facility]; Protocol Last Admin: 11/02/23 08:16 Dose: 50 mg Documented By: GILES Pharmacy Consult (Consult Rx Vancomycin Dosing) 1 each MISCELLANE DAILY PRN PRN Reason: Consult order Sodium Chloride (0.9 % Sodium Chloride Flush 3 Ml Syringe) 3 ml IVFLUSH QSHIFT [facility] Last Admin: 11/02/23 21:11 Dose: Not Given Documented By: VINCENT Non-Admin Reason: IV Running Spironolactone (Spironolactone 25 Mg Tablet) 25 mg PO DAILY [facility]; Protocol Last Admin: 03/07/24 08:16 Dose: 25 mg Documented By: GILES Labs 11/03/23 05:42 11/03/23 05:42 Labs: Laboratory Results - last 24 hr 11/02/23 11/02/23 11/02/23 11:40 16:14 19:04 MCV MCH MCHC RDW Plt Count MPV Absolute Nucleated RBC Nucleated RBC % (auto) Anion Gap Estim Creat Clear Calc Estimated GFR POC Glucose 162 H 184 H 152 H Random Glucose Calcium 11/03/23 11/03/23 05:42 07:02 MCV 81.0 MCH 24.6 L MCHC 30.3 L RDW 15.6 Plt Count 361 MPV 9.9 Absolute Nucleated RBC 0.000 Nucleated RBC % (auto) 0.0 Anion Gap 12 Estim Creat Clear Calc 110.0 Estimated GFR > 60 POC Glucose 145 H Random Glucose 146 H Calcium 8.5 Microbiology Microbiology Results: Microbiology 11/02/23 02:04 Blood Culture - Preliminary Blood - Venous No growth after 24 hours. 11/02/23 02:04 Blood Culture - Preliminary Blood - Venous No growth after 24 hours. Procedures Date of Service Date of Service: 11/03/23 Progress Note: A&P Assessment and plan (1) Post op infection: Status: Acute (2) Cellulitis of foot, left: Status: Acute Plan Status post amputation of great toe and 5th toe now with erythema from incision. Overall his wounds are improved today after 24 hours of antibiotic. Recommend continuing antibiotic, daily dressing change. Will continue to monitor. Time Spent With Patient Time: Total time managing care of this patient today ____ minutes. Quality Stroke Does the patient have a stroke diagnosis?: No VTE Prior VTE?: No VTE Risk Level:: Medical - moderate - high VTE Device Contraindication: Treatment Not Indicated VTE Drug Contraindication: N/A - Med Ordered
[2023-11-03] MEDS: Losartan Potassium 25 MG TABLET PO (08:16)
[2023-11-03] MEDS: Gabapentin 600 MG TABLET PO ×3 (08:16→19:38)
[2023-11-03] MEDS: Clopidogrel Bisulfate 75 MG TABLET PO (08:16)
[2023-11-03] MEDS: Acetaminophen 325 MG TABLET 650 MG PO ×2 (08:17→17:08)
[2023-11-03] MEDS: 0.9 % Sodium Chloride Flush 3 ML SYRINGE IVFLUSH ×3 (08:17→19:40)
[2023-11-03] MEDS: Metoprolol Succinate ER 50 MG TAB.ER.24H PO (08:18)
[2023-11-03] MEDS: Empagliflozin 10 MG TABLET PO (08:18)
[2023-11-03] MEDS: Aspirin 81 MG TAB.CHEW PO (08:18)
[2023-11-03] MEDS: Famotidine 20 MG TABLET 40 MG PO (08:18)
[2023-11-03 08:54] VITALS: BMI 32.4
[2023-11-03 08:57] VITALS: BP 154/69; PULSE 72; RESP 18; TEMP 36.6; O2SAT 96
[2023-11-03] MEDS: Spironolactone 25 MG TABLET PO (09:08)
--- NOTE | 2023-11-03 10:23 | P.PNIM_ITS ---
Subjective Subjective Date of Service: 11/03/23 Interval History: Seen and evaluated this morning feels little better but still complaining of pain erythema improving in his foot Review of Systems Review of Systems: Yes all other systems are reviewed and are negative Physical Exam 2 Vital Signs: Vital Signs: Last Vital Signs Temp 97.9 F 11/03/23 08:57 Pulse 72 11/03/23 08:57 Resp 18 11/03/23 08:57 BP 154/69 H 11/03/23 08:57 Pulse Ox 96 11/03/23 08:57 O2 Del Method Room Air 11/03/23 08:57 BMI result Body Mass Index 32.4 Const: Other: Constitutional : Awake, interactive, not in distress Neck : Normal inspection, Supple Cardiovascular : RRR, no JVP, no lower extremity edema Respiratory : good bilateral air entry, no crackles, wheezes or rhonchi Gastrointestinal: soft, lax, Normal bowel sounds, Non tender Skin : Warm, Dry, erythema improving in his foot at 1st,5th toes amputation site, blanca in place Neurological : Alert & oriented x3, No focal deficit , CN 2-12 within normal Objective Data Active Medications Acetaminophen (Acetaminophen 325 Mg Tablet) 650 mg PO Q6H PRN PRN Reason: Pain, Mild (Pain Scale 1-3) Last Admin: 11/03/23 08:17 Dose: 650 mg Documented By: DIALLO Aspirin (Aspirin 81 Mg Tab.Chew) 81 mg PO DAILY [facility] Last Admin: 11/03/23 08:18 Dose: 81 mg Documented By: DIALLO Atorvastatin Calcium (Atorvastatin Calcium 80 Mg Tablet) 80 mg PO BEDTIME [facility] Last Admin: 11/02/23 20:15 Dose: 80 mg Documented By: VINCENT Clopidogrel Bisulfate (Clopidogrel Bisulfate 75 Mg Tablet) 75 mg PO DAILY [facility] Last Admin: 11/03/23 08:16 Dose: 75 mg Documented By: DIALLO Dextrose (Dextrose 50 % 25 Gm/50 Ml Syringe) 25 gm IVPUSH Q15M PRN; Protocol PRN Reason: per Hypoglycemia Standing Ord. Empagliflozin (Empagliflozin 10 Mg Tablet) 10 mg PO DAILY [facility] Last Admin: 11/03/23 08:18 Dose: 10 mg Documented By: DIALLO Famotidine (Famotidine 20 Mg Tablet) 40 mg PO DAILY [facility] Last Admin: 11/03/23 08:18 Dose: 40 mg Documented By: DIALLO Gabapentin (Gabapentin 600 Mg Tablet) 600 mg PO TID [facility] Last Admin: 11/03/23 08:16 Dose: 600 mg Documented By: DIALLO Glucose (Glucose Gel 15 Gm Gel..Gram.) 15 gm PO Q15M PRN; Protocol PRN Reason: per Hypoglycemia Standing Ord. Hydromorphone HCl (Hydromorphone Hcl 0.5 Mg/0.5 Ml Syringe) 1 mg IVPUSH Q4H PRN; Protocol PRN Reason: Pain, Severe (Pain Scale 7-10) Last Admin: 11/03/23 10:17 Dose: 1 mg Documented By: GENEVIEVE Piperacillin Sod/Tazobactam (Sod 3.375 gm/ Sodium Chloride) 50 mls @ 100 mls/hr IV Q6H [facility] Vancomycin HCl 1,500 mg/ (Sodium Chloride) 500 mls @ 333.333 mls/hr IV Q12H [facility] Last Infusion: 11/03/23 06:44 Dose: Infused Documented By: VINCENT Insulin Glargine (Insulin Glargine,Hum.Rec.Anlog 100 Unit/Ml 10 Ml Vial) 34 unit SUBCUT BEDTIME [facility] Last Admin: 11/02/23 20:16 Dose: 34 unit Documented By: VINCENT Insulin Human Lispro (Insulin Lispro 100 Unit/Ml 3 Ml Vial) 0 unit SUBCUT QIDACHS [facility]; Protocol Last Admin: 11/03/23 08:12 Dose: Not Given Documented By: DIALLO Non-Admin Reason: No Insulin Coverage Losartan Potassium (Losartan Potassium 25 Mg Tablet) 25 mg PO DAILY [facility]; Protocol Last Admin: 11/03/23 08:16 Dose: 25 mg Documented By: DIALLO Metoprolol Succinate (Metoprolol Succinate Er 50 Mg Tab.Er.24h) 50 mg PO DAILY [facility]; Protocol Last Admin: 11/03/23 08:18 Dose: 50 mg Documented By: DIALLO Pharmacy Consult (Consult Rx Vancomycin Dosing) 1 each MISCELLANE DAILY PRN PRN Reason: Consult order Sodium Chloride (0.9 % Sodium Chloride Flush 3 Ml Syringe) 3 ml IVFLUSH QSHIFT [facility] Last Admin: 11/03/23 08:17 Dose: 3 ml Documented By: HO.HAMIM Spironolactone (Spironolactone 25 Mg Tablet) 25 mg PO DAILY [facility]; Protocol Last Admin: 11/03/23 09:08 Dose: 25 mg Documented By: GENEVIEVE Labs 11/03/23 05:42 11/03/23 05:42 Labs: Laboratory Results - last 24 hr 11/02/23 11/02/23 11/02/23 11:40 16:14 19:04 MCV MCH MCHC RDW Plt Count MPV Absolute Nucleated RBC Nucleated RBC % (auto) Anion Gap Estim Creat Clear Calc Estimated GFR POC Glucose 162 H 184 H 152 H Random Glucose Calcium 11/03/23 11/03/23 05:42 07:02 MCV 81.0 MCH 24.6 L MCHC 30.3 L RDW 15.6 Plt Count 361 MPV 9.9 Absolute Nucleated RBC 0.000 Nucleated RBC % (auto) 0.0 Anion Gap 12 Estim Creat Clear Calc 110.0 Estimated GFR > 60 POC Glucose 145 H Random Glucose 146 H Calcium 8.5 Microbiology Microbiology Results: Microbiology 11/02/23 02:04 Blood Culture - Preliminary Blood - Venous No growth after 24 hours. 11/02/23 02:04 Blood Culture - Preliminary Blood - Venous No growth after 24 hours. Assessment and Plan (1) Hyperglycemia due to diabetes mellitus: Status: Acute (2) Cellulitis of foot, left: Status: Acute Plan Pierre West is a 58 years old man admitted with: # Left foot cellulitis and Amputation sites (1st and 5th toe) infection. Blood cultures pending Continue IV Vanco and Zosyn Dilaudid IV as needed Continue gabapentin. Left foot MRI showing no evidence of OM Surgery input appreciated # Type 2 diabetes mellitus. Continue Lantus, farxiga and insulin sliding scale. # Essential hypertension. Continue metoprolol, spironolactone and losartan. # GERD. Continue famotidine # Mood disorder. Continue sertraline. # CAD (s/p heart surgery) and PAD. Continue statin, aspirin and Plavix. # Hyperlipidemia. Continue statin # History of right BKA. # Atrial fibrillation. Currently rate and rhythm controlled. Patient is not sure about this diagnosis and not sure if he is taking amiodarone (will continue this once it is verified by pharmacy). DVT prophylaxis: On aspirin, Plavix. Code status: Full Patient will need hospitalization overnight for left foot cellulitis associated to recent amputation treatment with IV antibiotic therapy and evaluation by surgical service. Quality Stroke Does the patient have a stroke diagnosis?: No VTE Prior VTE?: No VTE Risk Level:: Medical - moderate - high VTE Device Contraindication: Treatment Not Indicated VTE Drug Contraindication: N/A - Med Ordered
[2023-11-03 11:32] LABS: Glucose, Whole Blood 197 mg/dL (60-115)
[2023-11-03] MEDS: Insulin Lispro 100 UNIT/ML 3 ML VIAL SUBCUT ×3 (11:46→19:38)
[2023-11-03 12:00] VITALS: BP 130/64; PULSE 78; RESP 18; TEMP 36.8; O2SAT 96
[2023-11-03 15:24] VITALS: BP 157/74; PULSE 74; RESP 18; TEMP 36.2; O2SAT 95
[2023-11-03 16:10] LABS: Glucose, Whole Blood 251 mg/dL (60-115)
[2023-11-03 16:31] LABS: Vancomycin Random 15.5 mcg/mL (15-20)
[2023-11-03] MEDS: vancomycin HCL 1,500 MG in 0.9 % Sodium Chloride 500 ML 333 MG IV (17:12)
[2023-11-03 19:07] VITALS: BP 165/73; PULSE 75; RESP 18; TEMP 36.6; O2SAT 96
[2023-11-03] MEDS: Atorvastatin Calcium 80 MG TABLET PO (19:38)
[2023-11-03] MEDS: Insulin Glargine,Hum.rec.anlog 100 UNIT/ML 10 ML VIAL 34 UNIT SUBCUT (19:39)
[2023-11-03 19:50] LABS: Glucose, Whole Blood 178 mg/dL (60-115)
[2023-11-04] MEDS: HYDROmorphone HCl 0.5 MG/0.5 ML SYRINGE 1 MG IVPUSH ×5 (02:07→21:05)
[2023-11-04 04:00] VITALS: BP 132/63; PULSE 75; RESP 16; TEMP 36.7; O2SAT 96
[2023-11-04] MEDS: vancomycin HCL 1,500 MG in 0.9 % Sodium Chloride 500 ML 333.33 MG IV ×2 (04:57→17:09)
[2023-11-04 05:39] LABS: Hematocrit 33.6 % (42.0-52.0); Hemoglobin 10.6 g/dl (14.0-18.0); Mean Corpuscular HGB Conc 31.5 g/dl (31.0-36.0); Mean Corpuscular Hemoglobin 25.1 pg (27.0-33.0); Mean Corpuscular Volume 79.6 fL (80.0-98.0); Platelet Count 408 X10*3/uL (160-400); Red Blood Count 4.22 X10*6/uL (4.60-5.80); Red Cell Distribution Width 15.6 % (11.0-16.0); White Blood Count 13.5 X10*3/uL (4.8-10.8)
[2023-11-04 05:55] LABS: Creatinine Clr Calc Pharmacy 112.1; Estimated Glomerular Filt Rate > 60
[2023-11-04 05:56] LABS: Anion Gap 13 (12-20); Blood Urea Nitrogen 20 mg/dL (9-16); Calcium 9.5 mg/dL (8.4-10.2); Carbon Dioxide 27 mmol/L (22-29); Chloride 102 mmol/L (96-108); Creatinine Clr Calc Pharmacy 106.9; Estimated Glomerular Filt Rate > 60; Glucose Random 196 mg/dL (60-115); Potassium 4.5 mmol/L (3.3-5.1); Sodium 137 mmol/L (135-145)
[2023-11-04 07:23] VITALS: BP 147/72; PULSE 73; RESP 18; TEMP 36.9; O2SAT 97
[2023-11-04 07:24] LABS: Glucose, Whole Blood 224 mg/dL (60-115)
[2023-11-04] MEDS: Gabapentin 600 MG TABLET PO ×3 (08:02→20:21)
[2023-11-04] MEDS: Metoprolol Succinate ER 50 MG TAB.ER.24H PO (08:02)
[2023-11-04] MEDS: Insulin Lispro 100 UNIT/ML 3 ML VIAL SUBCUT ×4 (08:02→20:24)
[2023-11-04] MEDS: Spironolactone 25 MG TABLET PO (08:02)
[2023-11-04] MEDS: Aspirin 81 MG TAB.CHEW PO (08:02)
[2023-11-04] MEDS: Clopidogrel Bisulfate 75 MG TABLET PO (08:03)
[2023-11-04] MEDS: Famotidine 20 MG TABLET 40 MG PO (08:03)
[2023-11-04] MEDS: Empagliflozin 10 MG TABLET PO (08:03)
[2023-11-04] MEDS: Losartan Potassium 25 MG TABLET PO (08:03)
[2023-11-04] MEDS: 0.9 % Sodium Chloride Flush 3 ML SYRINGE IVFLUSH ×3 (08:03→21:12)
--- NOTE | 2023-11-04 09:15 | HO.PM.IMPN ---
Subjective Subjective Date of Service: 11/04/23 Interval History: Seen and evaluated this morning complaining of shooting pain on occasions erythema improving in his foot Review of Systems Review of Systems: Yes all other systems are reviewed and are negative Physical Exam Vital Signs: Vital Signs: Last Vital Signs Temp 98.5 F 11/04/23 07:23 Pulse 73 11/04/23 07:23 Resp 18 11/04/23 07:23 BP 147/72 H 11/04/23 07:23 Pulse Ox 97 11/04/23 07:23 O2 Del Method Room Air 11/04/23 07:23 BMI result Body Mass Index 32.4 Const: Other: Constitutional : Awake, interactive, not in distress Neck : Normal inspection, Supple Cardiovascular : RRR, no JVP, no lower extremity edema Respiratory : good bilateral air entry, no crackles, wheezes or rhonchi Gastrointestinal: soft, lax, Normal bowel sounds, Non tender Skin : Warm, Dry, erythema improving in his foot at 1st,5th toes amputation site, blanca in place Neurological : Alert & oriented x3, No focal deficit , CN 2-12 within normal Objective Data Active Medications Acetaminophen (Acetaminophen 325 Mg Tablet) 650 mg PO Q6H PRN PRN Reason: Pain, Mild (Pain Scale 1-3) Last Admin: 11/03/23 17:08 Dose: 650 mg Documented By: JIN Aspirin (Aspirin 81 Mg Tab.Chew) 81 mg PO DAILY [facility] Last Admin: 11/04/23 08:02 Dose: 81 mg Documented By: STEPHANIE Atorvastatin Calcium (Atorvastatin Calcium 80 Mg Tablet) 80 mg PO BEDTIME [facility] Last Admin: 11/03/23 19:38 Dose: 80 mg Documented By: MATTHEW Clopidogrel Bisulfate (Clopidogrel Bisulfate 75 Mg Tablet) 75 mg PO DAILY [facility] Last Admin: 11/04/23 08:03 Dose: 75 mg Documented By: STEPHANIE Dextrose (Dextrose 50 % 25 Gm/50 Ml Syringe) 25 gm IVPUSH Q15M PRN; Protocol PRN Reason: per Hypoglycemia Standing Ord. Empagliflozin (Empagliflozin 10 Mg Tablet) 10 mg PO DAILY [facility] Last Admin: 11/04/23 08:03 Dose: 10 mg Documented By: STEPHANIE Famotidine (Famotidine 20 Mg Tablet) 40 mg PO DAILY [facility] Last Admin: 11/04/23 08:03 Dose: 40 mg Documented By: STEPHANIE Gabapentin (Gabapentin 600 Mg Tablet) 600 mg PO TID [facility] Last Admin: 11/04/23 08:02 Dose: 600 mg Documented By: STEPHANIE Glucose (Glucose Gel 15 Gm Gel..Gram.) 15 gm PO Q15M PRN; Protocol PRN Reason: per Hypoglycemia Standing Ord. Hydromorphone HCl (Hydromorphone Hcl 0.5 Mg/0.5 Ml Syringe) 1 mg IVPUSH Q4H PRN; Protocol PRN Reason: Pain, Severe (Pain Scale 7-10) Last Admin: 11/04/23 06:17 Dose: 1 mg Documented By: MATTHEW Piperacillin Sod/Tazobactam (Sod 3.375 gm/ Sodium Chloride) 50 mls @ 100 mls/hr IV Q6H [facility] Vancomycin HCl 1,500 mg/ (Sodium Chloride) 500 mls @ 333.333 mls/hr IV Q12H [facility] Last Infusion: 11/04/23 06:31 Dose: Infused Documented By: MATTHEW Insulin Glargine (Insulin Glargine,Hum.Rec.Anlog 100 Unit/Ml 10 Ml Vial) 34 unit SUBCUT BEDTIME [facility] Last Admin: 11/03/23 19:39 Dose: 34 unit Documented By: MATTHEW Insulin Human Lispro (Insulin Lispro 100 Unit/Ml 3 Ml Vial) 0 unit SUBCUT QIDACHS [facility]; Protocol Last Admin: 11/04/23 08:02 Dose: 4 unit Documented By: STEPHANIE Losartan Potassium (Losartan Potassium 25 Mg Tablet) 25 mg PO DAILY [facility]; Protocol Last Admin: 11/04/23 08:03 Dose: 25 mg Documented By: STEPHANIE Metoprolol Succinate (Metoprolol Succinate Er 50 Mg Tab.Er.24h) 50 mg PO DAILY [facility]; Protocol Last Admin: 11/04/23 08:02 Dose: 50 mg Documented By: STEPHANIE Pharmacy Consult (Consult Rx Vancomycin Dosing) 1 each MISCELLANE DAILY PRN PRN Reason: Consult order Sodium Chloride (0.9 % Sodium Chloride Flush 3 Ml Syringe) 3 ml IVFLUSH QSHIFT [facility] Last Admin: 11/04/23 08:03 Dose: 3 ml Documented By: STEPHANIE Spironolactone (Spironolactone 25 Mg Tablet) 25 mg PO DAILY [facility]; Protocol Last Admin: 11/04/23 08:02 Dose: 25 mg Documented By: STPEHANIE Labs 11/04/23 05:14 11/04/23 05:14 Labs: Laboratory Results - last 24 hr 11/03/23 11/03/23 11/03/23 11:23 15:07 16:04 MCV MCH MCHC RDW Plt Count MPV Absolute Nucleated RBC Nucleated RBC % (auto) Anion Gap Estim Creat Clear Calc Estimated GFR POC Glucose 197 H 251 H Random Glucose Calcium Random Vancomycin 15.5 11/03/23 11/04/23 11/04/23 19:24 05:14 05:14 MCV 79.6 L MCH 25.1 L MCHC 31.5 RDW 15.6 Plt Count 408 H MPV 10.0 Absolute Nucleated RBC 0.000 Nucleated RBC % (auto) 0.0 Anion Gap 13 Estim Creat Clear Calc 112.1 106.9 Estimated GFR > 60 POC Glucose 178 H Random Glucose Calcium Random Vancomycin 11/04/23 11/04/23 05:14 07:13 MCV MCH MCHC RDW Plt Count MPV Absolute Nucleated RBC Nucleated RBC % (auto) Anion Gap Estim Creat Clear Calc Estimated GFR > 60 POC Glucose 224 H Random Glucose 196 H Calcium 9.5 D Random Vancomycin Microbiology Microbiology Results: Microbiology 11/02/23 02:04 Blood Culture - Preliminary Blood - Venous No growth after 48 hours. 11/02/23 02:04 Blood Culture - Preliminary Blood - Venous No growth after 48 hours. Assessment and Plan (1) Hyperglycemia due to diabetes mellitus: Status: Acute (2) Dry gangrene: Status: Acute (3) Cellulitis of foot, left: Status: Acute Plan Pierre West is a 58 years old man admitted with: # Left foot cellulitis and Amputation sites (1st and 5th toe) infection. Left foot MRI showing no evidence of OM Blood cultures negative Continue IV Vanco and Zosyn as site improving Dilaudid IV as needed Continue gabapentin. Surgery input appreciated, continue antibiotics over the weekend, to reeval on Monday if needed to remove blanca and clean Follow Vancomycin trough # Type 2 diabetes mellitus. Continue Lantus, farxiga and insulin sliding scale. # Essential hypertension. Continue metoprolol, spironolactone and losartan. # GERD. Continue famotidine # Mood disorder. Continue sertraline. # CAD (s/p heart surgery) and PAD. Continue statin, aspirin and Plavix. # Hyperlipidemia. Continue statin # History of right BKA. # Atrial fibrillation. Currently rate and rhythm controlled. Patient is not sure about this diagnosis and not sure if he is taking amiodarone (will continue this once it is verified by pharmacy). DVT prophylaxis: On aspirin, Plavix. Code status: Full Patient will need hospitalization overnight for left foot cellulitis associated to recent amputation treatment with IV antibiotic therapy and evaluation by surgical service. Quality Stroke Does the patient have a stroke diagnosis?: No VTE Prior VTE?: No VTE Risk Level:: Medical - moderate - high VTE Device Contraindication: Treatment Not Indicated VTE Drug Contraindication: N/A - Med Ordered
[2023-11-04 11:05] LABS: Glucose, Whole Blood 232 mg/dL (60-115)
--- NOTE | 2023-11-04 12:00 | PC.NURSE ---
Pt complaining of itchiness to chest/ back post vancomycin infusion, no rash present. Pt states that this happened during last admission and benadryl was given per OCT with good effect. MD Dr Paris notified, New order for PRN bendryl added. Pt resting in bed, respirations are equal and unlabored, call arthur within reach.
[2023-11-04 15:28] VITALS: BP 147/69; PULSE 70; RESP 18; TEMP 36.4; O2SAT 95
[2023-11-04] MEDS: diphenhydrAMINE HCL 50 MG/ML VIAL 25 MG IVPUSH ×2 (15:57→23:09)
[2023-11-04 15:59] LABS: Vancomycin Random 17.4 mcg/mL (15-20)
[2023-11-04 16:54] LABS: Glucose, Whole Blood 180 mg/dL (60-115)
[2023-11-04 19:59] VITALS: BP 138/69; PULSE 80; RESP 18; TEMP 36.3; O2SAT 96
[2023-11-04 20:09] LABS: Glucose, Whole Blood 265 mg/dL (60-115)
[2023-11-04] MEDS: Atorvastatin Calcium 80 MG TABLET PO (20:21)
[2023-11-04] MEDS: Insulin Glargine,Hum.rec.anlog 100 UNIT/ML 10 ML VIAL 34 UNIT SUBCUT (20:23)
[2023-11-05] MEDS: HYDROmorphone HCl 0.5 MG/0.5 ML SYRINGE 1 MG IVPUSH ×5 (00:42→19:53)
[2023-11-05] MEDS: vancomycin HCL 1,500 MG in 0.9 % Sodium Chloride 500 ML 333.33 MG IV (05:16)
[2023-11-05] MEDS: diphenhydrAMINE HCL 50 MG/ML VIAL 25 MG IVPUSH (05:17)
[2023-11-05 05:18] VITALS: BP 156/81; PULSE 78; RESP 16; TEMP 36.5; O2SAT 94
[2023-11-05 07:15] VITALS: BP 141/71; PULSE 71; RESP 18; TEMP 36.7; O2SAT 96
[2023-11-05 07:20] LABS: Creatinine Clr Calc Pharmacy 95.7; Estimated Glomerular Filt Rate > 60
[2023-11-05 07:22] LABS: Glucose, Whole Blood 164 mg/dL (60-115)
[2023-11-05] MEDS: Aspirin 81 MG TAB.CHEW PO (07:34)
[2023-11-05] MEDS: Piperacillin Sodium/Tazobactam 3.375 GM in 0.9 % Sodium Chloride 50 ML IV ×3 (07:53→19:40)
[2023-11-05] MEDS: Gabapentin 600 MG TABLET PO ×3 (07:53→20:32)
[2023-11-05] MEDS: Insulin Lispro 100 UNIT/ML 3 ML VIAL SUBCUT ×4 (07:53→20:32)
[2023-11-05] MEDS: Clopidogrel Bisulfate 75 MG TABLET PO (07:54)
[2023-11-05] MEDS: Famotidine 20 MG TABLET 40 MG PO (07:54)
[2023-11-05] MEDS: Spironolactone 25 MG TABLET PO (07:54)
[2023-11-05] MEDS: 0.9 % Sodium Chloride Flush 3 ML SYRINGE IVFLUSH ×3 (07:55→20:36)
[2023-11-05] MEDS: Metoprolol Succinate ER 50 MG TAB.ER.24H PO (07:55)
[2023-11-05] MEDS: Empagliflozin 10 MG TABLET PO (07:55)
[2023-11-05] MEDS: Losartan Potassium 25 MG TABLET PO (07:55)
--- NOTE | 2023-11-05 10:22 | HO.PM.IMPN ---
Subjective Subjective Date of Service: 11/05/23 Interval History: Seen and evaluated this morning less pain in his foot erythema improving in his foot Review of Systems Review of Systems: Yes all other systems are reviewed and are negative Physical Exam Vital Signs: Vital Signs: Last Vital Signs Temp 98.1 F 11/05/23 07:15 Pulse 71 11/05/23 07:15 Resp 18 11/05/23 07:15 BP 141/71 H 11/05/23 07:15 Pulse Ox 96 11/05/23 07:15 O2 Del Method Room Air 11/05/23 07:15 BMI result Body Mass Index 32.4 Const: Other: Constitutional : Awake, interactive, not in distress Neck : Normal inspection, Supple Cardiovascular : RRR, no JVP, no lower extremity edema Respiratory : good bilateral air entry, no crackles, wheezes or rhonchi Gastrointestinal: soft, lax, Normal bowel sounds, Non tender Skin : Warm, Dry, erythema improving in his foot at 1st,5th toes amputation site, blanca in place with some blood oozing Neurological : Alert & oriented x3, No focal deficit , CN 2-12 within normal Objective Data Active Medications Acetaminophen (Acetaminophen 325 Mg Tablet) 650 mg PO Q6H PRN PRN Reason: Pain, Mild (Pain Scale 1-3) Last Admin: 11/03/23 17:08 Dose: 650 mg Documented By: JIN Aspirin (Aspirin 81 Mg Tab.Chew) 81 mg PO DAILY [facility] Last Admin: 11/05/23 07:34 Dose: 81 mg Documented By: STEPHANIE Atorvastatin Calcium (Atorvastatin Calcium 80 Mg Tablet) 80 mg PO BEDTIME [facility] Last Admin: 11/04/23 20:21 Dose: 80 mg Documented By: MATTHEW Clopidogrel Bisulfate (Clopidogrel Bisulfate 75 Mg Tablet) 75 mg PO DAILY [facility] Last Admin: 11/05/23 07:54 Dose: 75 mg Documented By: STEPHANIE Dextrose (Dextrose 50 % 25 Gm/50 Ml Syringe) 25 gm IVPUSH Q15M PRN; Protocol PRN Reason: per Hypoglycemia Standing Ord. Diphenhydramine HCl (Diphenhydramine Hcl 50 Mg/Ml Vial) 25 mg IVPUSH Q6H PRN PRN Reason: Allergic Reaction Last Admin: 11/05/23 05:17 Dose: 25 mg Documented By: MATTHEW Comments: for vanco administration Empagliflozin (Empagliflozin 10 Mg Tablet) 10 mg PO DAILY [facility] Last Admin: 11/05/23 07:55 Dose: 10 mg Documented By: STEPHANIE Famotidine (Famotidine 20 Mg Tablet) 40 mg PO DAILY [facility] Last Admin: 11/05/23 07:54 Dose: 40 mg Documented By: STEPHANIE Gabapentin (Gabapentin 600 Mg Tablet) 600 mg PO TID [facility] Last Admin: 11/05/23 07:53 Dose: 600 mg Documented By: STEPHANIE Glucose (Glucose Gel 15 Gm Gel..Gram.) 15 gm PO Q15M PRN; Protocol PRN Reason: per Hypoglycemia Standing Ord. Hydromorphone HCl (Hydromorphone Hcl 0.5 Mg/0.5 Ml Syringe) 1 mg IVPUSH Q4H PRN; Protocol PRN Reason: Pain, Severe (Pain Scale 7-10) Last Admin: 11/05/23 10:04 Dose: 1 mg Documented By: STEPHANIE Piperacillin Sod/Tazobactam (Sod 3.375 gm/ Sodium Chloride) 50 mls @ 100 mls/hr IV Q6H [facility] Last Infusion: 11/05/23 08:34 Dose: Infused Documented By: STEPHANIE Vancomycin HCl 1,500 mg/ (Sodium Chloride) 500 mls @ 333.333 mls/hr IV Q12H [facility] Last Infusion: 11/05/23 06:54 Dose: Infused Documented By: STEPHANIE Insulin Glargine (Insulin Glargine,Hum.Rec.Anlog 100 Unit/Ml 10 Ml Vial) 34 unit SUBCUT BEDTIME [facility] Last Admin: 11/04/23 20:23 Dose: 34 unit Documented By: MATTHEW Insulin Human Lispro (Insulin Lispro 100 Unit/Ml 3 Ml Vial) 0 unit SUBCUT QIDACHS [facility]; Protocol Last Admin: 11/05/23 07:53 Dose: 2 unit Documented By: STEPHANIE Losartan Potassium (Losartan Potassium 25 Mg Tablet) 25 mg PO DAILY [facility]; Protocol Last Admin: 11/05/23 07:55 Dose: 25 mg Documented By: STEPHANIE Metoprolol Succinate (Metoprolol Succinate Er 50 Mg Tab.Er.24h) 50 mg PO DAILY [facility]; Protocol Last Admin: 11/05/23 07:55 Dose: 50 mg Documented By: STEPHANIE Pharmacy Consult (Consult Rx Vancomycin Dosing) 1 each MISCELLANE DAILY PRN PRN Reason: Consult order Sodium Chloride (0.9 % Sodium Chloride Flush 3 Ml Syringe) 3 ml IVFLUSH QSHIFT [facility] Last Admin: 11/05/23 07:55 Dose: 3 ml Documented By: STEPHANIE Spironolactone (Spironolactone 25 Mg Tablet) 25 mg PO DAILY [facility]; Protocol Last Admin: 11/05/23 07:54 Dose: 25 mg Documented By: STEPHANIE Labs 11/04/23 05:14 11/05/23 06:38 Labs: Laboratory Results - last 24 hr 11/04/23 11/04/23 11/04/23 10:56 15:01 16:50 Hold Purple Top Estim Creat Clear Calc Estimated GFR POC Glucose 232 H 180 H Random Vancomycin 17.4 11/04/23 11/05/23 11/05/23 20:02 06:38 07:14 Hold Purple Top SEE NOTE Estim Creat Clear Calc 95.7 Estimated GFR > 60 POC Glucose 265 H 164 H Random Vancomycin Assessment and Plan (1) Hyperglycemia due to diabetes mellitus: Status: Acute (2) Post op infection: Status: Acute (3) Dry gangrene: Status: Acute (4) Cellulitis of foot, left: Status: Acute Plan Pierre West is a 58 years old man admitted with: # Left foot cellulitis and Amputation sites (1st and 5th toe) infection. improving Left foot MRI showing no evidence of OM Blood cultures negative Continue IV Vanco and Zosyn as site improving Dilaudid IV as needed Continue gabapentin. Surgery input appreciated, continue antibiotics over the weekend, to reeval on Monday if needed to remove blanca and clean Follow Vancomycin trough # Type 2 diabetes mellitus. Continue Lantus, farxiga and insulin sliding scale. # Essential hypertension. Continue metoprolol, spironolactone and losartan. # GERD. Continue famotidine # Mood disorder. Continue sertraline. # CAD (s/p heart surgery) and PAD. Continue statin, aspirin and Plavix. # Hyperlipidemia. Continue statin # History of right BKA. # Atrial fibrillation. Currently rate and rhythm controlled. Patient is not sure about this diagnosis and not sure if he is taking amiodarone (will continue this once it is verified by pharmacy). DVT prophylaxis: On aspirin, Plavix. Code status: Full Patient will need hospitalization overnight for left foot cellulitis associated to recent amputation treatment with IV antibiotic therapy and evaluation by surgical service. Quality Stroke Does the patient have a stroke diagnosis?: No VTE Prior VTE?: No VTE Risk Level:: Medical - moderate - high VTE Device Contraindication: Treatment Not Indicated VTE Drug Contraindication: N/A - Med Ordered
[2023-11-05 10:58] LABS: Glucose, Whole Blood 282 mg/dL (60-115)
[2023-11-05] MEDS: oxyCODONE HCl Immed Release 5 MG TABLET 10 MG PO ×3 (15:18→22:27)
[2023-11-05 15:25] VITALS: BP 122/60; PULSE 69; RESP 16; TEMP 36.4; O2SAT 95
[2023-11-05 15:34] LABS: Vancomycin Random 21.6 mcg/mL (15-20)
[2023-11-05 16:40] LABS: Glucose, Whole Blood 169 mg/dL (60-115)
[2023-11-05 19:16] VITALS: BP 119/59; PULSE 76; RESP 18; TEMP 36.3; O2SAT 94
[2023-11-05 20:19] LABS: Glucose, Whole Blood 189 mg/dL (60-115)
[2023-11-05] MEDS: Atorvastatin Calcium 80 MG TABLET PO (20:32)
[2023-11-05] MEDS: Insulin Glargine,Hum.rec.anlog 100 UNIT/ML 10 ML VIAL 34 UNIT SUBCUT (20:33)
[2023-11-05 23:48] VITALS: BP 143/78; PULSE 80; RESP 18; TEMP 36.5; O2SAT 97
[2023-11-06 00:34] VITALS: RESP 16
[2023-11-06] MEDS: oxyCODONE HCl Immed Release 5 MG TABLET 10 MG PO ×3 (03:03→11:49)
[2023-11-06] MEDS: Piperacillin Sodium/Tazobactam 3.375 GM in 0.9 % Sodium Chloride 50 ML IV ×2 (03:03→08:00)
[2023-11-06 03:17] VITALS: BP 146/68; PULSE 74; RESP 16; TEMP 36.3; O2SAT 96
[2023-11-06 04:04] VITALS: RESP 16
[2023-11-06] MEDS: HYDROmorphone HCl 0.5 MG/0.5 ML SYRINGE 1 MG IVPUSH ×2 (05:38)
[2023-11-06 05:59] LABS: Creatinine Clr Calc Pharmacy 81.3; Estimated Glomerular Filt Rate > 60
[2023-11-06 06:08] VITALS: RESP 16
--- NOTE | 2023-11-06 07:10 | PC.NURSE ---
Patient admitted to s3 from ED at approximately 02:00 this morning. Patient here this admission for acute rhabdo as well as back pain and weakness 2/2 cocaine use. Pt stated she was not able to stand and pivot from stretcher to bed on arrival; patient transferred to bed using slide with additional staffing assistance. Pt denies use of assistive devices at baseline. A&Ox4, pt admitted to this narrative writer she left here from third floor (m3) a couple days ago and injected heroin and fentanyl, and used cocaine . Addiction medicine consult placed prior to admission. Pt requesting PRN valium for anxiety on arrival, given with +effect, as well as nicotine patch and gum. Covering MD notified for NRT orders. Pt otherwise denies acute complaints; denies dizziness, headache, vision changes, numbness/tingling, chest pain, sob, and n/v. Pt offered prn tylenol though refused. Breathing is even and unlabored without distress on RA. VSS. Pt tolerating regular diet without n/v. Pt states LBM was last admission 11/02; offered prn colace though pt refused. Purewick in place 2/2 immobility. Pt assisted with repositioning q2h as tolerated. PT consult placed. High falls risk measures and in-room camera in place for patient safety. See admission assessment and tasks for full details. ? 05:45 Patient woke up to give scheduled lactulose and nicotine gum and patch. Patient refused lactulose despite education. Pt stated ?I need something to relax? and ?something for my stomach and back that?s bothering me?; pt requested hydroxyzine, refused tylenol. Covering Dr. Pradeep Ariza notified; orders placed for hydroxyzine and flexeril with orders to give now, given.?? Handoff report given at 06:45.
--- NOTE | 2023-11-06 07:14 | PC.NURSE ---
Assumed care of patient at 23:15. VSS. A&Ox4. Pain in left foot well managed with prn oxycodone and dilaudid. DSD over blanca to toe amps was changed (routine) and has remained c/d/i without drainage. See shift assessments for full details. Voiding cyu in urinal. Safety measures in place. Handoff report given at 06:45
[2023-11-06 07:20] VITALS: BP 137/78; PULSE 75; RESP 16; TEMP 36.6; O2SAT 94
[2023-11-06 07:28] LABS: Glucose, Whole Blood 169 mg/dL (60-115)
[2023-11-06] MEDS: Aspirin 81 MG TAB.CHEW PO (08:00)
[2023-11-06] MEDS: Clopidogrel Bisulfate 75 MG TABLET PO (08:00)
[2023-11-06] MEDS: Metoprolol Succinate ER 50 MG TAB.ER.24H PO (08:00)
[2023-11-06] MEDS: Gabapentin 600 MG TABLET PO (08:00)
[2023-11-06] MEDS: Losartan Potassium 25 MG TABLET PO (08:00)
[2023-11-06] MEDS: Empagliflozin 10 MG TABLET PO (08:01)
[2023-11-06] MEDS: Famotidine 20 MG TABLET 40 MG PO (08:01)
[2023-11-06] MEDS: Spironolactone 25 MG TABLET PO (08:01)
[2023-11-06] MEDS: 0.9 % Sodium Chloride Flush 3 ML SYRINGE IVFLUSH (08:02)
[2023-11-06] MEDS: Insulin Lispro 100 UNIT/ML 3 ML VIAL SUBCUT (08:02)
--- NOTE | 2023-11-06 09:42 | P.PNGS_ITS ---
Subjective Subjective Date of Service: 11/06/23 Interval history: Patient reports some soreness in the left foot at the amputation site overall feels much improved. Physical Exam 2 Vital Signs: Vital Signs: Last Vital Signs Temp 97.8 F 11/06/23 07:20 Pulse 75 11/06/23 07:20 Resp 16 11/06/23 07:20 BP 137/78 11/06/23 07:20 Pulse Ox 94 11/06/23 07:20 O2 Del Method Room Air 11/06/23 07:20 BMI result Body Mass Index 32.4 Extrem: Other: Dressing change to the left foot. Wounds are much improved, dry, no erythema. Sutures/blanca intact. No fluctuance appreciated. Objective Data Active Medications Acetaminophen (Acetaminophen 325 Mg Tablet) 650 mg PO Q6H PRN PRN Reason: Pain, Mild (Pain Scale 1-3) Last Admin: 11/03/23 17:08 Dose: 650 mg Documented By: JIN Aspirin (Aspirin 81 Mg Tab.Chew) 81 mg PO DAILY [facility] Last Admin: 11/06/23 08:00 Dose: 81 mg Documented By: DESMOND Atorvastatin Calcium (Atorvastatin Calcium 80 Mg Tablet) 80 mg PO BEDTIME [facility] Last Admin: 11/05/23 20:32 Dose: 80 mg Documented By: KATINA Clopidogrel Bisulfate (Clopidogrel Bisulfate 75 Mg Tablet) 75 mg PO DAILY [facility] Last Admin: 11/06/23 08:00 Dose: 75 mg Documented By: DESMOND Dextrose (Dextrose 50 % 25 Gm/50 Ml Syringe) 25 gm IVPUSH Q15M PRN; Protocol PRN Reason: per Hypoglycemia Standing Ord. Diphenhydramine HCl (Diphenhydramine Hcl 50 Mg/Ml Vial) 25 mg IVPUSH Q6H PRN PRN Reason: Allergic Reaction Last Admin: 11/05/23 05:17 Dose: 25 mg Documented By: MATTHEW Comments: for vanco administration Empagliflozin (Empagliflozin 10 Mg Tablet) 10 mg PO DAILY [facility] Last Admin: 11/06/23 08:01 Dose: 10 mg Documented By: DESMOND Famotidine (Famotidine 20 Mg Tablet) 40 mg PO DAILY [facility] Last Admin: 11/06/23 08:01 Dose: 40 mg Documented By: DESMOND Gabapentin (Gabapentin 600 Mg Tablet) 600 mg PO TID [facility] Last Admin: 11/06/23 08:00 Dose: 600 mg Documented By: DESMOND Glucose (Glucose Gel 15 Gm Gel..Gram.) 15 gm PO Q15M PRN; Protocol PRN Reason: per Hypoglycemia Standing Ord. Hydromorphone HCl (Hydromorphone Hcl 0.5 Mg/0.5 Ml Syringe) 1 mg IVPUSH Q4H PRN; Protocol PRN Reason: Pain, Severe (Pain Scale 7-10) Last Admin: 11/06/23 05:38 Dose: 1 mg Documented By: SILVIA Piperacillin Sod/Tazobactam (Sod 3.375 gm/ Sodium Chloride) 50 mls @ 100 mls/hr IV Q6H [facility] Last Infusion: 11/06/23 09:17 Dose: Infused Documented By: DESMOND Vancomycin HCl 1,000 mg/ (Sodium Chloride) 270 mls @ 270 mls/hr IV Q12H [facility] Insulin Glargine (Insulin Glargine,Hum.Rec.Anlog 100 Unit/Ml 10 Ml Vial) 34 unit SUBCUT BEDTIME [facility] Last Admin: 11/05/23 20:33 Dose: 34 unit Documented By: KATINA Insulin Human Lispro (Insulin Lispro 100 Unit/Ml 3 Ml Vial) 0 unit SUBCUT QIDACHS [facility]; Protocol Last Admin: 11/06/23 08:02 Dose: 2 unit Documented By: DESMOND Losartan Potassium (Losartan Potassium 25 Mg Tablet) 25 mg PO DAILY [facility]; Protocol Last Admin: 11/06/23 08:00 Dose: 25 mg Documented By: DESMOND Metoprolol Succinate (Metoprolol Succinate Er 50 Mg Tab.Er.24h) 50 mg PO DAILY [facility]; Protocol Last Admin: 11/06/23 08:00 Dose: 50 mg Documented By: DESMOND Oxycodone HCl (Oxycodone Hcl Immed Release 5 Mg Tablet) 10 mg PO Q4H PRN PRN Reason: Pain, Moderate(Pain Scale 4-6) Last Admin: 11/06/23 08:01 Dose: 10 mg Documented By: DESMOND Pharmacy Consult (Consult Rx Vancomycin Dosing) 1 each MISCELLANE DAILY PRN PRN Reason: Consult order Sodium Chloride (0.9 % Sodium Chloride Flush 3 Ml Syringe) 3 ml IVFLUSH QSHIFT [facility] Last Admin: 11/06/23 08:02 Dose: 3 ml Documented By: DESMOND Spironolactone (Spironolactone 25 Mg Tablet) 25 mg PO DAILY [facility]; Protocol Last Admin: 11/06/23 08:01 Dose: 25 mg Documented By: DESMOND Labs 11/04/23 05:14 11/06/23 05:26 Labs: Laboratory Results - last 24 hr 11/05/23 11/05/23 11/05/23 10:51 15:04 16:35 Hold Purple Top Estim Creat Clear Calc Estimated GFR POC Glucose 282 H 169 H Random Vancomycin 21.6 H 11/05/23 11/06/23 11/06/23 20:07 05:26 07:24 Hold Purple Top SEE NOTE Estim Creat Clear Calc 81.3 Estimated GFR > 60 POC Glucose 189 H 169 H Random Vancomycin Procedures Date of Service Date of Service: 11/06/23 Progress Note: A&P Assessment and plan (1) Post op infection: Status: Acute Plan Status post amputation of great toe and 5th toe, readmitted for erythema. Patient now feels much improved although still has some tenderness over the bone edge. No drainage is identified no fluctuance. Okay for discharge my standpoint. Time Spent With Patient Time: Total time managing care of this patient today ____ minutes. Quality Stroke Does the patient have a stroke diagnosis?: No VTE Prior VTE?: No VTE Risk Level:: Medical - moderate - high VTE Device Contraindication: Treatment Not Indicated VTE Drug Contraindication: N/A - Med Ordered
--- NOTE | 2023-11-06 09:54 | MHC.CM.PN ---
Addendum entered by Juliann Jarquin 11/06/23 10:21: pt active with [facility] notified of dc Original Note: dc home no servies
--- NOTE | 2023-11-06 09:55 | PM.DS ---
DS: Providers Provider Date of Service: 11/06/23 Date of admission: 11/02/23 03:39 Primary care physician: Shanta Haney MD Consults: 11/02/23 05:30 Consult to Vascular Surgery Routine Consulting Provider: [facility] [place], [place] Vascular Services Reason for consultation: recent L 1st,5th toes amputation,possible infected wound/OM Has provider been notified: No 11/03/23 09:01 Consult to Wound Care Routine Reason for consultation: Left Surgical Site Infection. DS: Diagnosis Discharge Diagnosis (1) Post op infection: Status: Acute (2) Hyperglycemia due to diabetes mellitus: Status: Acute (3) Cellulitis of foot, left: Status: Acute (4) Peripheral arterial disease: Status: Acute DS: Summary Hospital Course Hospital Course: Admission note HPI Pierre West is a 58 years old man with past medical history significant for type 2 diabetes mellitus on insulin, PAD, right BKA, recent amputation of left 1st and 5th toe (by Dr. Sheppard; 10/24/23) due to diabetic ulcer, hyperlipidemia, essential hypertension and GERD presents to the emergency department complaining of worsening pain to the left foot (around amputation sites) since yesterday. He has been taking a course of Keflex and oxycodone for pain. He denied any fever or chills. He denied any headache, palpitations or dizziness. He denied any acute cardiopulmonary, gastrointestinal or genitourinary symptoms. In the ED, he was found to have normal vital signs. Blood workup is remarkable for leukocytosis. Glucose is 296 CRP is elevated. Renal function is normal LFTs are normal. There are no electrolyte imbalances. Left foot x-ray showed status post and amputation of 1st and 5th toe with associated soft tissue swelling without definitive radiographic evidence of osteomyelitis. ED tx: Zosyn 3.375 g IV, oxycodone 5 mg p.o., acetaminophen 975 mg p.o., magnesium 2 g IV Hospital course The patient was admitted for treatment of Left foot cellulitis and Amputation sites (1st and 5th toe) infection. Left foot MRI showing no evidence of OM. Blood cultures remained negative as he was treated with IV Vanco and Zosyn as infection site improved during the hospital stay. Dilaudid IV and Oxy PO were used for pain control as needed. Surgery team followed the patient during the stay and recommended no intervention as cellulitis improved with antibiotics with no need to remove blanca or debride. To be discharged home on Augmentin and Doxycycline for 1 more week and follow with dr Sheppard after that. He had elevated blood sugar readings controlled with Insulin lantus and Humalog. to continue hoe medications on discharge. Continue Augmentin and Doxycycline as prescribed Follow with dr Sheppard as outpatient Time Attestation Discharge Coordination Time (in mins): 38 Quality: Safe Use of Opioids Does Pt have an Active Cancer Diagnosis on the Problem List?: No Quality: Stroke Does the patient have a stroke diagnosis?: No Physical Exam Vital Signs: Vital Signs: Last Vital Signs Temp 97.8 F 11/06/23 07:20 Pulse 75 11/06/23 07:20 Resp 16 11/06/23 07:20 BP 137/78 11/06/23 07:20 Pulse Ox 94 11/06/23 07:20 O2 Del Method Room Air 11/06/23 07:20 BMI result Body Mass Index 32.4 Const: Other: Constitutional : Awake, interactive, not in distress Neck : Normal inspection, Supple Cardiovascular : RRR, no JVP, no lower extremity edema Respiratory : good bilateral air entry, no crackles, wheezes or rhonchi Gastrointestinal: soft, lax, Normal bowel sounds, Non tender Skin : Warm, Dry, erythema resolved in his foot at 1st,5th toes amputation site, blanca in place with no oozing Neurological : Alert & oriented x3, No focal deficit , CN 2-12 within normal DS: Data Data Completed and Pending Completed studies during hospitalization [Text1]: Procedures Detachment at Left 1st Toe, Complete, Open Approach (10/18/23) Detachment at Left 5th Toe, Complete, Open Approach (10/18/23) Detachment at Right 1st Toe, Complete, Open Approach (08/18/21) Detachment at Right Lower Leg, High, Open Approach (08/18/21) Dilation of Left Peroneal Artery using Drug-Coated Balloon, Percutaneous Approach (10/18/23) Dilation of Right Ureter with Intraluminal Device, Via Natural or Artificial Opening Endoscopic (06/21/20) Excision of Right Tarsal, Open Approach (08/18/21) Extirpation of Matter from Right Ureter, Via Natural or Artificial Opening Endoscopic (06/21/20) Fluoroscopy of Right Kidney, Ureter and Bladder (06/21/20) Insertion of Infusion Device into Superior Vena Cava, Percutaneous Approach (08/18/21) Labs on day of discharge: Laboratory Results - last 24 hr 11/05/23 11/05/23 11/05/23 10:51 15:04 16:35 Hold Purple Top Creatinine Estim Creat Clear Calc Estimated GFR POC Glucose 282 H 169 H Random Vancomycin 21.6 H 11/05/23 11/06/23 11/06/23 20:07 05:26 07:24 Hold Purple Top SEE NOTE Creatinine 1.13 Estim Creat Clear Calc 81.3 Estimated GFR > 60 POC Glucose 189 H 169 H Random Vancomycin Preliminary micro results at discharge 11/02/23 02:04 Blood Culture - Preliminary Blood - Venous No growth after 48 hours. 11/02/23 02:04 Blood Culture - Preliminary Blood - Venous No growth after 48 hours. Imaging MRI Foot: Radiologist's impression: ITS Impressions Foot X-Ray 11/02/23 02:19 IMPRESSION: Status post amputation through the first and fifth MTP joints with associated soft tissue swelling. No definite radiographic evidence of osteomyelitis. Foot MRI 11/02/23 14:52 IMPRESSION: No evidence of osteomyelitis. Discharge Plan Discharge Anticipated Discharge Date/Time: 11/06/23 09:36 Patient Disposition: Home Health Service Discharge Diagnosis: Surgical site infection Referrals: [facility] [Other] - 1 Week Shanta Haney MD [Primary Care Provider] - 1 Week Discharge Medications: New doxycycline monohydrate 100 mg capsule 100 mg PO BID Qty: 14 0RF amoxicillin-pot clavulanate 875-125 mg tablet 1 tab PO BID Qty: 14 0RF Continued (DME) Bedside commode See Rx Instructions .Route .MEDSUPPLY Qty: 1 0RF Rx Instructions: As directed (DME) walker with wheels See Rx Instructions .Route .MEDSUPPLY Qty: 1 0RF Rx Instructions: As directed (DME) pen needle, diabetic [BD Ultra-Fine Short Pen Needle] 31 gauge x 5/16 needle See Rx Instructions .ROUTE .COMPLEX Qty: 100 5RF Dose Instruction: USE MARÍA LO INDICADO BENNETT VECES AL LIZZIE ANTES DE LAS COMIDAS Rx Instructions: USE MARÍA LO INDICADO BENNETT VECES AL LIZZIE ANTES DE LAS COMIDAS (DME) recliner See Rx Instructions .Route .MEDSUPPLY Qty: 1 0RF Rx Instructions: As directed (DME) FreeStyle Frank 2 [place] Misc See Rx Instructions .Route Qty: 1 0RF Rx Instructions: As directed (DME) FreeStyle Frank 2 Sensor Kit See Rx Instructions .Route Qty: 2 8RF Rx Instructions: As directed change every 14 days aspirin 81 mg tablet,chewable 81 mg PO DAILY Qty: 90 1RF metoprolol succinate 50 mg tablet extended release 24 hr 50 mg PO DAILY Qty: 90 1RF famotidine 40 mg tablet 40 mg PO DAILY melatonin 5 mg Tablet 5 mg PO BEDTIME PRN (Reason: Sleep) insulin lispro [Admelog U-100 Insulin lispro] 100 unit/mL Solution See Protocol subcut QIDACHS Qty: 10 0RF Protocol: Insulin Correction Scale Less than or equal to 110 ---- Give (units): 0 111 to 150 Give (units): 0 151 to 200 Give (units): 2 201 to 250 Give (units): 4 251 to 300 Give (units): 6 301 to 350 Give (units): 8 Greater than 350 Give (units): 10 Call MD if Blood Glucose > : 350 amiodarone 200 mg tablet 200 mg PO BID clopidogrel 75 mg tablet 75 mg DAILY tramadol 50 mg tablet 50 mg PO Q6H PRN (Reason: pain) pantoprazole 40 mg tablet,delayed release (DR/EC) 40 mg PO DAILY lidocaine 5 % adhesive patch,medicated 1 patch topical DAILY PRN (Reason: moderate pain) losartan 25 mg tablet 25 mg PO DAILY acetaminophen [Acetaminophen Extra Strength] 500 mg Tablet 1,000 mg PO Q6H PRN (Reason: Pain) insulin glargine [Lantus Solostar U-100 Insulin] 100 unit/mL (3 mL) insulin pen 34 unit subcut BEDTIME spironolactone 25 mg tablet 25 mg PO DAILY dapagliflozin propanediol [Farxiga] 10 mg tablet 10 mg PO QAM oxycodone 5 mg Tablet 5 mg PO Q4H PRN (Reason: Pain, Moderate(Pain Scale 4-6)) Qty: 20 0RF Rx Instructions: Partial Fill upon patient request. sertraline 50 mg tablet 50 mg PO DAILY gabapentin 600 mg tablet 600 mg PO TID Qty: 90 4RF (DME) blood-glucose meter [FreeStyle Lite Meter] Kit See Rx Instructions .Route Rx Instructions: As directed (DME) FreeStyle Lite Strips Strip See Rx Instructions .Route Rx Instructions: As directed atorvastatin 80 mg tablet 80 mg PO BEDTIME Discontinued cephalexin 500 mg capsule 500 mg PO BID Qty: 20 0RF Discharge Orders: Discharge Order (Routine); Ordered 11/06/23 Ordered By: Cecile Berg Diet: Diabetic diet Activity on Discharge: As tolerated Stand Alone Forms: Patient Portal Discharge page Care Plan Goals: Read below Health Concerns: Read below Plan of Treatment: Read below Assessment: You were treated for cellulitis of left foot with surgical site infection treated with IV antibiotics and evaluated by surgery with good response over the course of hospital stay. Continue Augmentin and Doxycycline as prescribed Follow with dr Sheppard as outpatient
[2023-11-06] MEDS: Amiodarone HCL 200 MG TABLET PO (10:23)
[2023-11-06 11:29] LABS: Glucose, Whole Blood 179 mg/dL (60-115)
--- NOTE | 2023-11-06 12:00 | HO.WOUND ---
Wound Consult: Initial 58yr old M? admitted to [facility] [place] on 11/01 - See progress notes and H&P for detailed history.? Wound consult placed for Left Foot Surgical sites.? Patient agreeable to assessment and photo documentation.? Patient reports he is pending discharge in the next 15minutes. He reports he has follow up with Dr. Sheppard booked [facility] services to continue at home and will call Outpt wound Clinic for follow up care appointment. He demonstrates understanding of the importance of follow up care. The Left Medial Falcon has a dry small ulceration resolving - scattered area of dried adherent scab - Patient reports per provider does not need cover dressing at this time. The area is small dry and stable - we discussed moist wound healing and patient reports he was treating with xeroform prior to admission - I recommend continued with moist wound healing for decreased healing time. He is agreeable to moist wound healing with xeroform - applied to wound bed. The Great toe and 5th toe incision are difficult to assess - there is adherent dried drainage scab vs necrotic tissue. The patient and hospitalist as well as surgeon report the erythema is resolving and appears improved. See photo for observable erythema - photo sent to provider. There remains significant tenderness to the plantar foot. Not able to express purulence or drainage at the time of my assessment. The 5th toe site appears dehisced and is dry with small moist observable wound bed. There were three staple laying in the wound bed removed they were not attached to tissue at this time of my assessment. Both areas were cleansed with betadine and dry alginate applied with dry abd pad and gauze wrap applied. Left Foot Great Toe Amp site Left 5th Toe site Left Leg Left Leg Recommendations: 1. Left Leg - Cleanse with Ph balanced cleanser or NS, Pat dry. Cover wound bed with xeroform, ABD pad and gauze wrap. Change every other day. 2. Left Great toe and 5th Toe surgical sites - Cleanse with Betadine, allow to air dry. Cover wound bed with Durafiber AG, cover with Gauze, wrap and Change every other day. Recommend follow up out patient Wound Clinic at [address] [place] [id number] and to call for an appointment at time of discharge. [phone].? Re-consult wound care Nurse for wound deterioration or wound changes.
--- NOTE | 2023-11-06 16:29 | MHC.CM.PN ---
asked dr dailey to write wound care orders in [facility] notfied of this request
== END 2023-11-06 13:18 | disposition home health service (06) | DRG 565 ==
LOC: HO.ED 02:06 → HO.EDOVER 03:45 → HO.S3 11-03 08:10
PROVIDERS: Admitting Provider Internal Medicine; Emergency Provider Student in an Organized Health Care Education/Training Program; PCP Internal Medicine; Visit Provider Student in an Organized Health Care Education/Training Program
DX: T87.44 Infection of amputation stump, left lower extremity (principal); E11.52 Type 2 diabetes mellitus with diabetic peripheral angiopathy with gangrene; L03.116 Cellulitis of left lower limb; E11.65 Type 2 diabetes mellitus with hyperglycemia; E78.5 Hyperlipidemia, unspecified; I10 Essential (primary) hypertension; I48.91 Unspecified atrial fibrillation; Y83.5 Amputation of limb(s) as the cause of abnormal reaction of the patient, or of later complication, without mention of misadventure at the time of the procedure; I25.10 Atherosclerotic heart disease of native coronary artery without angina pectoris; K21.9 Gastro-esophageal reflux disease without esophagitis; Z89.511 Acquired absence of right leg below knee; E11.42 Type 2 diabetes mellitus with diabetic polyneuropathy; Z79.84 Long term (current) use of oral hypoglycemic drugs; Z79.02 Long term (current) use of antithrombotics/antiplatelets; Z79.899 Other long term (current) drug therapy
CPT/HCPCS: 36415; 73620; 73720; 80048; 80053; 80202; 82565; 82947; 83605; 83735; 85025; 85027; 85610; 86140; 87040; 93005; 99285; A9585; J1170; J1200; J2543; J3370; J3371; J3475

== ENCOUNTER → 2023-11-02 01:15 | Outpatient (BNV) | payer MEDICARE, SELFPAY | PROVIDERS: Admitting Provider Internal Medicine; Emergency Provider Student in an Organized Health Care Education/Training Program; PCP Internal Medicine; Visit Provider Internal Medicine Cardiovascular Disease | DX: I45.2 Bifascicular block (principal) | CPT/HCPCS: 93010 ==

== ENCOUNTER → 2023-11-02 03:39 | Outpatient (BNV) | payer MEDICARE, SELFPAY | PROVIDERS: Admitting Provider Internal Medicine; Emergency Provider Student in an Organized Health Care Education/Training Program; PCP Internal Medicine; Visit Provider Surgery | DX: T87.44 Infection of amputation stump, left lower extremity (principal); Z89.412 Acquired absence of left great toe; Z89.422 Acquired absence of other left toe(s) | CPT/HCPCS: 99222; 99232 ==

== ENCOUNTER → 2023-11-02 03:39 | Outpatient (BNV) | payer MEDICARE, SELFPAY | PROVIDERS: Admitting Provider Internal Medicine; Emergency Provider Student in an Organized Health Care Education/Training Program; PCP Internal Medicine; Visit Provider Internal Medicine | DX: T87.44 Infection of amputation stump, left lower extremity (principal); Z89.412 Acquired absence of left great toe; E11.65 Type 2 diabetes mellitus with hyperglycemia; Z79.4 Long term (current) use of insulin; Z89.511 Acquired absence of right leg below knee; L03.116 Cellulitis of left lower limb; I48.91 Unspecified atrial fibrillation; I73.9 Peripheral vascular disease, unspecified; E78.5 Hyperlipidemia, unspecified; I10 Essential (primary) hypertension | CPT/HCPCS: 99223; 99233; 99239; 99499 ==

== ENCOUNTER 2023-11-16 10:08 | Outpatient (AMB) | payer MEDICARE, SELFPAY ==
--- NOTE | 2023-11-16 10:11 | MHC.OFFVIS ---
Intake Intake Visit Reasons: post op 1 & 5th toe 10/24/23 Intake Note: post op amp 1st & 5th toe .Patient is experiencing pain in left foot that comes and goes in the great toe area. States he finished his antibiotics on 11/15/23. Accompanied by: Son Allergies No Known Allergies [No Known Allergies*] Allergy (Verified 11/16/23 10:18) HPI post op 1 & 5th toe 10/24/23 HPI Details Very pleasant 58-year-old gentleman status post left great and 5th toe amputation. This was done on 10/24/2023. Reports he is doing fairly well. Pain seems to be a little bit of an issue. But overall reasonably well controlled. He now presents for routine follow-up. [facility] Medical History 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 Diabetes mellitus with retinopathy, with long-term current use of insulin PAD (peripheral artery disease) Heartburn symptom Amputation stump infection Major depression, recurrent Erectile dysfunction Dyslipidemia Diabetes mellitus, with long-term current use of insulin Amputation stump complication Intractable left heel pain Chronic 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 Type 2 diabetes mellitus with diabetic polyneuropathy Type 2 diabetes mellitus with hyperglycemia Hyperlipidemia Chronic pancreatitis Essential hypertension Diabetes mellitus with hyperglycemia, with long-term current use of insulin Neuropathy Kidney calculus Failure of outpatient treatment Increased BMI Alcohol abuse CAD (coronary artery disease) Arthritis Surgical History S/P angiogram of extremity (06/28/23) History of right below knee amputation Status post below-knee amputation S/P debridement Hx of lithotripsy Status post laparoscopic cholecystectomy Hx of heart artery stent Family History Mother IA (myocardial infarction), Onset Age: 64 Diabetes mellitus HTN (hypertension) Maternal Grandmother Diabetes mellitus Social History Household Members: Family Household Members Other:: and daughter Housing: House Do you presently have visiting nurse or other home services: Yes Alcohol intake: never Comment: pt ambulates with crutches. Patient Tobacco Use Status: Never used Tobacco Tobacco use type: Cigarette Cigarette Packs Per Day: 0.01 Cigarettes Per Day: 3 Years Smoked: 28 e-Cigarette/Vaping Use: Never Used Second Hand Smoke Exposure: No Substance Use Type: Marijuana Advance Directives Date on File: 04/17/21 service: No Current occupational status: unemployed and disabled Cognitive needs: No Hearing needs: No Vision needs: Yes Review of Systems Const All systems reviewed & are unremarkable except as noted in HPI and below Reports no additional complaints ENT Reports Normal hearing present Card Denies chest pain, Denies chest pain at rest, Denies chest pain with activity and Denies pedal edema Resp Denies cough GI Denies abdominal pain Musc Denies abnormal gait, Denies muscle cramps and Denies radiating pain into limb Skin/Breast Denies skin ulcer and Denies wounds Neuro Reports Normal hearing present and Denies abnormal gait Psych Reports no additional complaints Physical Exam Const General: cooperative, healthy appearing and comfortable Orientation/consciousness: oriented to person, oriented to place and oriented to time HEENT Head: Yes normal to inspection Neck Neck: Yes normal visual inspection Carotids: no bruits Chest Chest palpation & inspection: normal inspection of the chest Resp Effort & Inspection: normal respiratory effort and able to speak in complete sentences Auscultation: clear to auscultation bilaterally, no crackles, no rales, no rhonchi and no wheezes Cardio Rate: regular rate Rhythm: regular rhythm Heart sounds: S1 normal heart sound present and S2 normal heart sound present Bruits: no carotid bruits Peripheral pulses: Peripheral pulses 2+ throughout GI Inspection: Yes normal to inspection Skin Other: Great toe and 5th toe incision lines are dry and desiccated. Poorly healing. Wounds: no wounds Hair: normal Neuro General: oriented to person, oriented to place and oriented to time Cranial nerves: Yes CN's II-XII intact bilaterally and Yes Normal hearing present Cognition (Neuro): normal cognition Motor exam (neuro): 5/5 motor strength present throughout Extrem Other: venous exam: No significant superficial varicosities or spider telangiectasias, minimal edema General: No clubbing, No cyanosis and No edema Psych Appearance: grossly normal Mental Status: mental status grossly normal Speech and movement: Normal speech and movement present Assessment & Plan Assessment & Plan (1) PAD (peripheral artery disease): Comment: 04/14/2021 - atherectomy and plasty of left SFA and popliteal artery, angioplasty of left anterior tibial posterior tibial and peroneal arteries 08/31/2021 - right BKA 11/29/2021 - revision right BKA 06/28/2023 - left anterior tibial plasty and perennial plasty and popliteal plasty 10/24/2023 - left great and 5th toe amputation Code(s): I73.9 - Peripheral vascular disease, unspecified Plan: In short amputation sites are poorly healing. At the current time would continue with local wound care. He is scheduled to see [facility] tomorrow. He will follow up with us in approximately 3 weeks time. Will see which way this is overall heading. He is at risk for transmetatarsal amputation. This was discussed with the patient. Thank you for allowing us to assist in his care. If there are any questions or concerns please do not hesitate to contact us. Coding Level of Care Code Est Pt Level 3 (42298) Diagnoses PAD (peripheral artery disease) I73.9
== END 2023-11-16 11:00 | disposition home or self-care (01) ==
PROVIDERS: PCP Internal Medicine; Visit Provider Surgery Vascular Surgery
DX: I73.9 Peripheral vascular disease, unspecified (principal)
CPT/HCPCS: 99024

== ENCOUNTER → 2023-11-16 10:08 | Outpatient (BNVA) | payer MEDICARE, SELFPAY | PROVIDERS: PCP Internal Medicine; Visit Provider Surgery Vascular Surgery | DX: I73.9 Peripheral vascular disease, unspecified (principal); F17.210 Nicotine dependence, cigarettes, uncomplicated; Z47.81 Encounter for orthopedic aftercare following surgical amputation; Z89.412 Acquired absence of left great toe; Z89.422 Acquired absence of other left toe(s) | CPT/HCPCS: 99212 ==

== ENCOUNTER 2023-11-17 12:13 | Inpatient (IN) | payer MEDICARE, SELFPAY ==
--- NOTE | ~2023-11-17 | XR_ITS ---
EXAMINATION: XR FOOT, LEFT CLINICAL INFORMATION: Evaluate for osteomyelitis. Recent surgery. COMPARISON: 11/02/2023 TECHNIQUE: AP, lateral, and oblique views of the left foot. FINDINGS: Postsurgical changes related to the amputation of the 1st and 5th toes. Skin blanca have been removed in the interim. No cortical erosion or periosteal reaction to suggest active osteomyelitis. Prominent heel spur. Diffuse vascular calcifications. XR/XR foot LT 2V IMPRESSION: Postsurgical changes as described. No radiographic evidence of osteomyelitis. If there is a high clinical suspicion, consider MRI.
--- NOTE | 2023-11-17 12:19 | ED.EXTPRO ---
HPI - Extremity Problem General Chief complaint: Extremity Injury, Lower Stated complaint: FOOT PAIN, HX OF DIABETES AND HTN PER EMS Time Seen by Provider: 11/17/23 20:53 Source: patient Mode of arrival: ambulatory Limitations: no limitations History of Present Illness HPI Narrative: Patient is status post left great and 5th toe amputation done on 10/24/2023 diabetic peripheral artery disease had sutures removed yesterday at vascular surgeon office since then noticed increased pain no fever no chills patient just finished his antibiotic on 11/15/23 patient wound was healing better for last 2 days noticed throbbing feeling in the left foot which got worse earlier today patient did not require any pain medication for last 5 days Related Data Home Medications Medication Instructions Recorded Confirmed blood sugar diagnostic (FreeStyle 12/01/22 06/28/23 Lite Strips) blood-glucose meter (FreeStyle 12/01/22 06/28/23 Lite Meter kit) atorvastatin 80 mg tablet 80 mg PO BEDTIME 06/20/23 11/18/23 famotidine 40 mg tablet 40 mg PO DAILY heartburn 09/11/23 11/18/23 melatonin 5 mg tablet 5 mg PO BEDTIME PRN Sleep 09/11/23 11/18/23 acetaminophen 500 mg tablet 1,000 mg PO Q6H PRN Pain 10/18/23 11/18/23 (Acetaminophen Extra Strength) amiodarone 200 mg tablet 200 mg PO BID 10/18/23 11/18/23 insulin glargine 100 unit/mL (3 34 unit subcut BEDTIME 10/18/23 11/18/23 mL) subcutaneous pen (Lantus Solostar U-100 Insulin) lidocaine 5 % topical patch 1 patch topical DAILY PRN moderate 10/18/23 11/18/23 pain pantoprazole 40 mg tablet,delayed 40 mg PO DAILY@0630 10/18/23 11/18/23 release clopidogrel 75 mg tablet 75 mg PO DAILY 11/18/23 11/18/23 dapagliflozin propanediol 10 mg 10 mg PO DAILY 11/18/23 11/18/23 tablet (Farxiga) losartan 25 mg tablet 25 mg PO DAILY 11/18/23 11/18/23 sertraline 50 mg tablet 75 mg PO BEDTIME 11/18/23 11/18/23 spironolactone 25 mg tablet 25 mg PO DAILY 11/18/23 11/18/23 tramadol 50 mg tablet 50 mg PO Q6H PRN pain 11/18/23 11/18/23 Previous Rx's Medication Instructions Recorded Bedside commode #1 ea 04/18/22 walker with wheels #1 ea 08/19/22 pen needle, diabetic 31 gauge x #100 ea 10/20/22 5/16 (BD Ultra-Fine Short Pen Needle) recliner #1 ea 11/23/22 flash glucose scanning reader #1 ea 12/02/22 (FreeStyle [place]) flash glucose sensor (FreeStyle #2 ea 03/06/23 Frank 2 Sensor kit) gabapentin 600 mg tablet 600 mg PO TID #90 tabs 08/25/23 aspirin 81 mg chewable tablet 81 mg PO DAILY #90 tabs 09/10/23 metoprolol succinate 50 mg 50 mg PO DAILY #90 tabs 09/10/23 tablet,extended release 24 hr insulin lispro 100 unit/mL See Protocol subcut QIDACHS #10 mL 09/12/23 subcutaneous solution (Admelog U-100 Insulin lispro) doxycycline monohydrate 100 mg 100 mg PO BID #14 caps 11/21/23 capsule oxycodone 5 mg tablet 5 mg PO Q6H PRN Pain, 11/21/23 Moderate(Pain Scale 4-6) #24 tabs Allergies Allergy/AdvReac Type Severity Reaction Status Date / Time zosyn AdvReac Mild Itching Uncoded 11/18/23 15:27 Review of Systems Review of Systems: Yes all other systems are reviewed and are negative [facility] Past Medical History Medical History 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 Diabetes mellitus with retinopathy, with long-term current use of insulin PAD (peripheral artery disease) Heartburn symptom Amputation stump infection Major depression, recurrent Erectile dysfunction Dyslipidemia Diabetes mellitus, with long-term current use of insulin Amputation stump complication Intractable left heel pain Chronic 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 Type 2 diabetes mellitus with diabetic polyneuropathy Type 2 diabetes mellitus with hyperglycemia Hyperlipidemia Chronic pancreatitis Essential hypertension Diabetes mellitus with hyperglycemia, with long-term current use of insulin Neuropathy Kidney calculus Failure of outpatient treatment Increased BMI Alcohol abuse CAD (coronary artery disease) Arthritis Surgical History S/P angiogram of extremity (06/28/23) History of right below knee amputation Status post below-knee amputation S/P debridement Hx of lithotripsy Status post laparoscopic cholecystectomy Hx of heart artery stent Family History Family History Mother [place] (myocardial infarction), Onset Age: 64 Diabetes mellitus HTN (hypertension) Maternal Grandmother Diabetes mellitus Social History Social History Household Members: Family Household Members Other:: and daughter Housing: Apartment Do you presently have visiting nurse or other home services: Yes (wound care and PT) Alcohol intake: former Comment: pt ambulates with crutches. Patient Tobacco Use Status: Former Tobacco user Quit Date: Jun 2023 Tobacco use type: Cigarette Cigarette Packs Per Day: 0.01 Cigarettes Per Day: 3 Years Smoked: 25+ e-Cigarette/Vaping Use: Never Used Second Hand Smoke Exposure: No Substance Use Type: Marijuana Advance Directives Date on File: 04/17/21 service: No Current occupational status: unemployed and disabled Cognitive needs: No Hearing needs: No Vision needs: Yes Physical Exam Vital Signs: Vital Signs: Last Vital Signs Temp 98.1 F 11/21/23 07:29 Pulse 80 11/21/23 07:29 Resp 18 11/21/23 07:29 BP 137/63 11/21/23 07:29 Pulse Ox 96 11/21/23 07:29 O2 Del Method Room Air 11/21/23 07:29 BMI result Body Mass Index 32.0 Appearance: Alert. Oriented X3. No acute distress. Eyes: No pallor or icterus ENT: Pharynx normal. Oral Mucosa moist Neck: Normal inspection. Neck supple. CVS: Normal heart rate and rhythm. Pulses normal. Respiratory: No respiratory distress. Equal air entry bilateral, no wheezing/rales/rhonchi Abdomen: Soft and nontender. Bowel sounds are present, Skin: Skin warm and dry. Normal skin color. Normal skin turgor. Extremities: No lower extremity edema. No calf tenderness right BKA left toes amputation with bogginess at the site of amputation Neuro: Oriented X 3. No motor deficit. Course Course Course Narrative: This is a rapid medical exam: Additional HPI, ROS, PE not included below will be deferred to primary provider. Diabetic with 1st and 2nd to on left foot. Saw the vascular surgeon yesterday who said that the toe was healing well but had concerns. Increased pain starting yesterday. Took tylenol. Denies fevers or lymphagitis Hx Rt leg amp Medications Administered Discontinued Medications Generic Name Dose Route Start Last Admin Trade Name Freq PRN Reason Stop Dose Admin Acetaminophen 650 mg 11/18/23 00:46 11/21/23 04:10 Acetaminophen 325 Mg Tablet PO 650 mg Q6H PRN Administration Pain, Mild (Pain Scale 1-3) Amiodarone HCl 200 mg 11/18/23 09:00 11/21/23 07:53 Amiodarone Hcl 200 Mg Tablet PO 200 mg BID SHELLY Administration Aspirin 81 mg 11/18/23 09:00 11/21/23 07:53 Aspirin 81 Mg Tab.Chew PO 81 mg DAILY SHELLY Administration Atorvastatin Calcium 80 mg 11/18/23 21:00 11/20/23 20:36 Atorvastatin Calcium 80 Mg Tablet PO 80 mg BEDTIME SHELLY Administration Clopidogrel Bisulfate 75 mg 11/18/23 09:35 11/21/23 07:53 Clopidogrel Bisulfate 75 Mg Tablet PO 75 mg DAILY SHELLY Administration Diphenhydramine HCl 25 mg 11/18/23 08:32 11/18/23 14:26 Diphenhydramine Hcl 50 Mg/Ml Vial IVPUSH 25 mg Q6H PRN Administration Allergic Reaction Empagliflozin 10 mg 11/19/23 10:00 11/21/23 07:53 Empagliflozin 10 Mg Tablet PO 10 mg DAILY SHELLY Administration Famotidine 40 mg 11/18/23 09:00 11/21/23 07:53 Famotidine 20 Mg Tablet PO 40 mg DAILY SHELLY Administration Gabapentin 600 mg 11/18/23 15:00 11/21/23 07:53 Gabapentin 600 Mg Tablet PO 600 mg TID SHELLY Administration Hydromorphone HCl 1 mg 11/18/23 00:46 11/18/23 00:58 Hydromorphone Hcl 1 Mg/Ml Syringe IVPUSH 11/18/23 00:47 1 mg ONCE STA Administration Protocol Hydromorphone HCl 1 mg 11/18/23 04:53 11/21/23 11:49 Hydromorphone Hcl 1 Mg/Ml Syringe IVPUSH 1 mg Q4H PRN Administration Pain, Severe (Pain Scale 7-10) Protocol Sodium Chloride 1,000 mls @ 999 mls/hr 11/17/23 21:53 11/18/23 00:17 Ns IV 11/17/23 22:53 Infused .Q1H1M ONE Infusion Vancomycin HCl 2,000 mg in 500 mls @ 250 mls/hr 11/17/23 21:53 11/18/23 01:48 Vancomycin/Ns IV 11/17/23 23:52 Infused ONCE ONE Infusion Piperacillin Sod/Tazobactam 50 mls @ 100 mls/hr 11/17/23 21:53 11/17/23 23:47 Sod 3.375 gm/ Sodium Chloride IV 11/17/23 22:22 Infused ONCE ONE Infusion Piperacillin Sod/Tazobactam 50 mls @ 100 mls/hr 11/18/23 07:00 11/18/23 13:55 Sod 3.375 gm/ Sodium Chloride IV Infused Q6H SHELLY Infusion Vancomycin HCl 1,000 mg/ 270 mls @ 270 mls/hr 11/18/23 12:00 11/19/23 01:58 Sodium Chloride IV Infused Q12H SHELLY Infusion Vancomycin HCl 1,500 mg/ 500 mls @ 333.333 mls/hr 11/19/23 12:00 11/20/23 01:16 Sodium Chloride IV Infused Q12H SHELLY Infusion Vancomycin HCl 1,250 mg/ 250 mls @ 166.667 mls/hr 11/20/23 12:00 11/21/23 01:23 Sodium Chloride IV Infused Q12H SHELLY Infusion Vancomycin HCl 1,000 mg/ 270 mls @ 270 mls/hr 11/21/23 11:00 11/21/23 12:47 Sodium Chloride IV Infused Q12H SHELLY Infusion Insulin Glargine 34 unit 11/18/23 21:00 11/20/23 20:39 Insulin Glargine,Hum.Rec.Anlog 100 Unit/Ml 10 Ml Vial SUBCUT 34 unit BEDTIME SHELLY Administration Insulin Human Lispro 0 unit 11/18/23 07:30 11/21/23 11:44 Insulin Lispro 100 Unit/Ml 3 Ml Vial SUBCUT 4 unit QIDACHS SHELLY Administration Protocol Losartan Potassium 25 mg 11/18/23 10:00 11/21/23 07:54 Losartan Potassium 25 Mg Tablet PO 25 mg DAILY SHELLY Administration Protocol Metoprolol Succinate 50 mg 11/18/23 10:00 11/21/23 07:53 Metoprolol Succinate Er 50 Mg Tab.Er.24h PO 50 mg DAILY SHELLY Administration Protocol Morphine Sulfate 15 mg 11/17/23 21:11 11/17/23 21:48 Morphine Sulfate Immed Release 15 Mg Tablet PO 11/17/23 21:12 15 mg ONCE ONE Administration Oxycodone HCl 5 mg 11/20/23 12:53 11/21/23 10:35 Oxycodone Hcl Immed Release 5 Mg Tablet PO 5 mg Q6H PRN Administration Pain, Moderate(Pain Scale 4-6) Sertraline HCl 75 mg 11/18/23 21:00 11/20/23 20:36 Sertraline Hcl 25 Mg Tablet PO 75 mg BEDTIME SHELLY Administration Sodium Chloride 3 ml 11/18/23 08:00 11/21/23 07:54 0.9 % Sodium Chloride Flush 3 Ml Syringe IVFLUSH 3 ml QSHIFT SHELLY Administration Medical Decision Making Medical Decision Making [facility] Narrative: Patient diabetic with increased pain at the site of amputation possible cellulitis developing osteomyelitis x-ray negative for bony erosion will admit patient for prophylactic IV antibiotics pending final re-evaluation by vascular Differential Diagnosis Differential Diagnoses: The differential diagnosis associated with the presentation includes Cellulitis/wound infection / osteomyelitis Admission/Observation Consideration of admission/observation: Escalation of care including admission/observation considered Consult Healthcare Provider Management of the patient was discussed with: Hospitalist Lab Data [facility] Lab Attestation statement: I reviewed the patient's lab results. 11/19/23 05:44 11/21/23 10:05 Labs: Lab Results 11/17/23 11/17/23 Range/Units 13:24 22:32 WBC 11.7 H (4.8-10.8) X10*3/uL RBC 4.63 (4.60-5.80) X10*6/uL Hgb 11.3 L (14.0-18.0) g/dl Hct 37.0 L (42.0-52.0) % MCV 79.9 L (80.0-98.0) fL MCH 24.4 L (27.0-33.0) pg MCHC 30.5 L (31.0-36.0) g/dl RDW 15.8 (11.0-16.0) % Plt Count 363 (160-400) X10*3/uL MPV 10.3 (9.4-12.4) fL Immature Gran % (Auto) 0.6 H (0.0-0.4) % Neut % (Auto) 68.4 (45-73) % Lymph % (Auto) 19.7 L (20-40) % [place] % (Auto) 6.8 (2-11) % Eos % (Auto) 3.8 (0-4) % Baso % (Auto) 0.7 (0-2) % Lymph # (Auto) 2.3 (1.2-4.9) X10*3/uL [place] # (Auto) 0.8 (0.1-1.2) X10*3/uL Eos # (Auto) 0.5 H (0.0-0.4) X10*3/uL Baso # (Auto) 0.1 (0.0-0.2) X10*3/uL Abs Immat Gran (auto) 0.07 H (0.00-0.03) X10*3/uL Absolute Neuts (auto) 8.0 (2.0-8.3) x10*3/uL Absolute Nucleated RBC 0.000 (0.0-0.012) X10*3/uL Nucleated RBC % (auto) 0.0 (0.0-0.2) /100WBC ESR 85 H (0-15) MM/HR Sodium 138 (135-145) mmol/L Potassium 4.3 (3.3-5.1) mmol/L Chloride 103 (96-108) mmol/L Carbon Dioxide 24 (22-29) mmol/L Anion Gap 15 (12-20) BUN 21 H (9-16) mg/dL Creatinine 1.02 (0.5-1.4) mg/dL Estim Creat Clear Calc 92.4 Estimated GFR > 60 Random Glucose 197 H (60-115) mg/dL Lactic Acid 1.0 (0.5-2.0) mmol/L Calcium 9.5 (8.4-10.2) mg/dL Total Bilirubin 0.2 (0.0-1.0) mg/dL AST 26 (5-37) U/L ALT 39 (0-40) U/L Alkaline Phosphatase 115 (39-117) U/L C-Reactive Protein 1.77 H (< or = 0.50) mg/dL Total Protein 9.1 H (6.5-8.0) g/dL Albumin 3.8 (3.5-5.0) g/dL External Record Review External record reviewed: Inpatient record Discharge Plan Discharge Clinical Impression: Diabetic foot infection Patient Disposition: Admitted As Inpatient Interventions: Admission Worksheet (ED) Last Done: 11/18/23 04:10 Discharge Date/Time: 11/18/23 04:40
[2023-11-17 13:00] VITALS: PULSE 80; RESP 14; TEMP 37.2; O2SAT 98; BMI 32.0
[2023-11-17 13:29] LABS: MANUAL DIFF FLAG NO
[2023-11-17 13:32] LABS: Basophils Absolute Auto 0.1 X10*3/uL (0.0-0.2); Basophils Percent Auto 0.7 % (0-2); Eosinophils Absolute Auto 0.5 X10*3/uL (0.0-0.4); Eosinophils Percent Auto 3.8 % (0-4); Hemoglobin 11.3 g/dl (14.0-18.0); Imm Gran Abs Auto 0.07 X10*3/uL (0.00-0.03); Imm Gran Pct Auto 0.6 % (0.0-0.4); Lymphocytes Absolute Auto 2.3 X10*3/uL (1.2-4.9); Lymphocytes Percent Auto 19.7 % (20-40); Mean Corpuscular HGB Conc 30.5 g/dl (31.0-36.0); Mean Corpuscular Hemoglobin 24.4 pg (27.0-33.0); Mean Corpuscular Volume 79.9 fL (80.0-98.0); Mean Platelet Volume 10.3 fL (9.4-12.4); Monocytes Absolute Auto 0.8 X10*3/uL (0.1-1.2); Monocytes Percent Auto 6.8 % (2-11); Neutrophils Percent Auto 68.4 % (45-73); Platelet Count 363 X10*3/uL (160-400); Red Blood Count 4.63 X10*6/uL (4.60-5.80); Red Cell Distribution Width 15.8 % (11.0-16.0); White Blood Count 11.7 X10*3/uL (4.8-10.8)
[2023-11-17 13:45] LABS: Alanine Aminotransferase 39 U/L (0-40); Albumin Level 3.8 g/dL (3.5-5.0); Alkaline Phosphatase 115 U/L (39-117); Anion Gap 15 (12-20); Aspartate Amino Transferase 26 U/L (5-37); Bilirubin Total 0.2 mg/dL (0.0-1.0); Blood Urea Nitrogen 21 mg/dL (9-16); Calcium 9.5 mg/dL (8.4-10.2); Carbon Dioxide 24 mmol/L (22-29); Chloride 103 mmol/L (96-108); Creatinine Clr Calc Pharmacy 92.4; Estimated Glomerular Filt Rate > 60; Glucose Random 197 mg/dL (60-115); Potassium 4.3 mmol/L (3.3-5.1); Sodium 138 mmol/L (135-145); Total Protein 9.1 g/dL (6.5-8.0)
[2023-11-17 15:21] LABS: C Reactive Protein 1.77 mg/dL (< or = 0.50)
[2023-11-17 16:18] LABS: Erythrocyte Sedimentation Rate 85 MM/HR (0-15)
[2023-11-17 20:18] VITALS: BP 131/69; PULSE 70; RESP 16; TEMP 36.6; O2SAT 100
[2023-11-17] MEDS: Morphine Sulfate Immed Release 15 MG TABLET PO (21:48)
[2023-11-17 21:55] VITALS: BP 153/77; PULSE 67; RESP 18; TEMP 36.6; O2SAT 100
[2023-11-17] MEDS: 0.9 % Sodium Chloride 1,000 ML 999 ML IV (23:15)
[2023-11-17] MEDS: Piperacillin Sodium/Tazobactam 3.375 GM in 0.9 % Sodium Chloride 50 ML IV (23:16)
[2023-11-17] MEDS: vancomycin/NS 2,000 MG/500 ML PLAST..BAG 250 MG IV (23:48)
[2023-11-18] VITALS (8 sets, daily range): BP systolic 120–167; BP diastolic 64–80; PULSE 68–79; RESP 14–18; TEMP 36.3–36.8; O2SAT 97–99
[2023-11-18] MEDS: HYDROmorphone HCl 1 MG/ML SYRINGE IVPUSH ×5 (00:58→21:10)
[2023-11-18 05:51] LABS: MANUAL DIFF FLAG NO
[2023-11-18 05:57] LABS: Basophils Absolute Auto 0.1 X10*3/uL (0.0-0.2); Basophils Percent Auto 0.6 % (0-2); Eosinophils Absolute Auto 0.4 X10*3/uL (0.0-0.4); Eosinophils Percent Auto 4.6 % (0-4); Hematocrit 33.9 % (42.0-52.0); Hemoglobin 10.3 g/dl (14.0-18.0); Imm Gran Abs Auto 0.05 X10*3/uL (0.00-0.03); Imm Gran Pct Auto 0.5 % (0.0-0.4); Lymphocytes Absolute Auto 2.2 X10*3/uL (1.2-4.9); Lymphocytes Percent Auto 23.1 % (20-40); Mean Corpuscular HGB Conc 30.4 g/dl (31.0-36.0); Mean Corpuscular Hemoglobin 24.6 pg (27.0-33.0); Mean Corpuscular Volume 80.9 fL (80.0-98.0); Mean Platelet Volume 10.2 fL (9.4-12.4); Monocytes Percent Auto 10.4 % (2-11); Neutrophils Absolute Auto 5.8 x10*3/uL (2.0-8.3); Neutrophils Percent Auto 60.8 % (45-73); Platelet Count 280 X10*3/uL (160-400); Red Blood Count 4.19 X10*6/uL (4.60-5.80); White Blood Count 9.6 X10*3/uL (4.8-10.8)
--- NOTE | 2023-11-18 06:19 | P.HPHOSP_ITS ---
History of Present Illness Date of Service: 11/18/23 Attending physician on admission: Radha Ariza Chief Complaint: Foot pain Pierre West is a 58 years old man with past medical history significant for type 2 diabetes mellitus on insulin, PAD, right BKA, recent amputation of left 1st and 5th toe (by Dr. Sheppard; 10/24/23) due to diabetic ulcer, hyperlipidemia, essential hypertension and GERD presents to the emergency department complaining of left foot. Wound stitches were removed by Dr. Sheppard, vascular surgery. Denies fever or chills. He denies any use gastrointestinal or genitourinary symptoms. He was recently discharged on November 05 after being admitted with diagnosis of left foot cellulitis post amputation. At that time, he received treatment with vancomycin and Zosyn. Left foot MRI was obtained and showed no osteomyelitis. He was discharged home on Augmentin and doxycycline which he completed. In the ED, he was was found to have normal vital signs. The workup remarkable for mild leukocytosis that resolved. Blood workup showed hemoglobin of 10.3 and normal platelets. CRP is 1.77. There is no lactic acidosis. Electrolytes are normal. Left foot x-ray with post surgical changes as described without radiographic evidence of osteomyelitis. Review of Systems 2 Review of Systems: All 12 systems were reviewed and normal except as noted in HPI. [facility] Medical History 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 Diabetes mellitus with retinopathy, with long-term current use of insulin PAD (peripheral artery disease) Heartburn symptom Amputation stump infection Major depression, recurrent Erectile dysfunction Dyslipidemia Diabetes mellitus, with long-term current use of insulin Amputation stump complication Intractable left heel pain Chronic 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 Type 2 diabetes mellitus with diabetic polyneuropathy Type 2 diabetes mellitus with hyperglycemia Hyperlipidemia Chronic pancreatitis Essential hypertension Diabetes mellitus with hyperglycemia, with long-term current use of insulin Neuropathy Kidney calculus Failure of outpatient treatment Increased BMI Alcohol abuse CAD (coronary artery disease) Arthritis Family History Mother [place] (myocardial infarction), Onset Age: 64 Diabetes mellitus HTN (hypertension) Maternal Grandmother Diabetes mellitus Surgical History S/P angiogram of extremity (06/28/23) History of right below knee amputation Status post below-knee amputation S/P debridement Hx of lithotripsy Status post laparoscopic cholecystectomy Hx of heart artery stent Social History Household Members: Family Household Members Other:: and daughter Housing: Apartment Do you presently have visiting nurse or other home services: Yes (wound care and PT) Alcohol intake: former Comment: pt ambulates with crutches. Patient Tobacco Use Status: Former Tobacco user Quit Date: Jun 2023 Tobacco use type: Cigarette Cigarette Packs Per Day: 0.01 Cigarettes Per Day: 3 Years Smoked: 25+ Smoked in Last 30 Days: No e-Cigarette/Vaping Use: Never Used Patient Interested in Nicotine Replacement: No Patient Given Instructions on How to Stop Smoking: No Second Hand Smoke Exposure: No Use of substances other than those prescribed or required for medical reasons: No Substance Use Type: Marijuana Currently Displaying Signs/Symptoms of Drug Intoxication Withdrawal: No Any prior treatment program specific to substance use: No Have you been hit, kicked, punched, or otherwise hurt by someone within the past year? If so, by whom?: No Do you feel safe in your current relationship?: Yes Is there a partner from a previous relationship who is making you feel unsafe now?: No Are you made to feel afraid or neglected: No Advance Directives: No Advance Directives Information Provided: No Advance Directives Date on File: 04/17/21 Do you have thoughts of harming others: None Do you have a plan to hurt others: No Plan Recently lost weight without trying: No How much weight loss: Not applicable Eating poorly because of decreased appetite: No Nutrition screen score: 0 Nutrition Risks: No Nutritional Risk Poor oral hygiene: No service: No Current occupational status: unemployed and disabled Cognitive needs: No Hearing needs: No Vision needs: Yes Meds Allergies Allergy/AdvReac Type Severity Reaction Status Date / Time No Known Allergies Allergy Verified 11/16/23 10:18 [No Known Allergies*] Active Medications: Current Medications Acetaminophen (Acetaminophen 325 Mg Tablet) 650 mg PO Q6H PRN PRN Reason: Pain, Mild (Pain Scale 1-3) Hydromorphone HCl (Hydromorphone Hcl 1 Mg/Ml Syringe) 1 mg IVPUSH Q4H PRN; Protocol PRN Reason: Pain, Severe (Pain Scale 7-10) Last Admin: 11/18/23 05:15 Dose: 1 mg Sodium Chloride (0.9 % Sodium Chloride Flush 3 Ml Syringe) 3 ml IVFLUSH [facility] Home Medications Medication Instructions Recorded Confirmed Last Taken Type blood sugar diagnostic (FreeStyle 12/01/22 06/28/23 Unknown History Lite Strips) blood-glucose meter (FreeStyle 12/01/22 06/28/23 Unknown History Lite Meter kit) atorvastatin 80 mg tablet 80 mg PO BEDTIME 06/20/23 11/18/23 11/01/23 History sertraline 50 mg tablet 50 mg PO DAILY 08/25/23 11/18/23 11/01/23 History famotidine 40 mg tablet 40 mg PO DAILY heartburn 09/11/23 11/18/23 11/01/23 History melatonin 5 mg tablet 5 mg PO BEDTIME PRN Sleep 09/11/23 11/18/23 11/01/23 History acetaminophen 500 mg tablet 1,000 mg PO Q6H PRN Pain 10/18/23 11/02/23 11/01/23 History (Acetaminophen Extra Strength) amiodarone 200 mg tablet 200 mg PO BID 10/18/23 11/18/23 11/01/23 History clopidogrel 75 mg tablet 75 mg DAILY 10/18/23 11/18/23 11/01/23 History dapagliflozin propanediol 10 mg 10 mg PO QAM 10/18/23 11/18/23 11/01/23 History tablet (Farxiga) insulin glargine 100 unit/mL (3 34 unit subcut BEDTIME 10/18/23 11/18/23 11/01/23 History mL) subcutaneous pen (Lantus Solostar U-100 Insulin) lidocaine 5 % topical patch 1 patch topical DAILY PRN moderate 10/18/23 11/02/23 10/18/23 History pain losartan 25 mg tablet 25 mg PO DAILY 10/18/23 11/18/23 11/01/23 History pantoprazole 40 mg tablet,delayed 40 mg PO DAILY 10/18/23 11/18/23 11/01/23 History release spironolactone 25 mg tablet 25 mg PO DAILY 10/18/23 11/18/23 11/01/23 History tramadol 50 mg tablet 50 mg PO Q6H PRN pain 10/18/23 11/02/23 10/18/23 History amiodarone 200 mg tablet 200 mg PO BID 11/18/23 11/18/23 Unknown History atorvastatin 80 mg tablet 80 mg BEDTIME 11/18/23 11/18/23 Unknown History clopidogrel 75 mg tablet 75 mg DAILY 11/18/23 11/18/23 Unknown History dapagliflozin propanediol 10 mg 10 mg PO QAM 11/18/23 11/18/23 Unknown History tablet (Farxiga) gabapentin 600 mg tablet 600 mg PO TID 11/18/23 11/18/23 Unknown History losartan 25 mg tablet 25 mg PO DAILY 11/18/23 11/18/23 Unknown History sertraline 50 mg tablet 75 mg PO BEDTIME 11/18/23 11/18/23 Unknown History spironolactone 25 mg tablet 25 mg PO DAILY 11/18/23 11/18/23 Unknown History Physical Exam 2 Vital Signs and Narrative: Vital Signs: Last Vital Signs Temp 98.2 F 11/18/23 01:48 Pulse 79 11/18/23 01:48 Resp 14 11/18/23 01:48 BP 120/69 11/18/23 01:48 Pulse Ox 98 11/18/23 01:48 O2 Del Method Room Air 11/18/23 01:48 BMI result Body Mass Index 32.0 Constitutional - Awake and Alert, screaming due to pain. Cooperative. HEENT - normocephalic. Atraumatic. Normal sclerae. Heart - S1S2, RRR. Lungs - Normal lung expansion, Normal respiratory effort, No respiratory distress, CTA bilaterally Abdomen - NT / ND; +BS; No rebound or guarding Extremities: Musculoskeletal - Normal inspection, normal ROM Skin - Warm/Dry Neurological - Alert & oriented x3. No focal weakness. Normal speech. Psychological - Appropriate affect Results Labs 11/18/23 05:29 11/17/23 13:24 Labs: Laboratory Results - last 24 hr 11/17/23 11/17/23 11/18/23 13:24 22:32 05:29 MCV 79.9 L 80.9 MCH 24.4 L 24.6 L MCHC 30.5 L 30.4 L RDW 15.8 16.0 Plt Count 363 280 MPV 10.3 10.2 Immature Gran % (Auto) 0.6 H 0.5 H Neut % (Auto) 68.4 60.8 Lymph % (Auto) 19.7 L 23.1 [place] % (Auto) 6.8 10.4 Eos % (Auto) 3.8 4.6 H Baso % (Auto) 0.7 0.6 Lymph # (Auto) 2.3 2.2 [place] # (Auto) 0.8 1.0 Eos # (Auto) 0.5 H 0.4 Baso # (Auto) 0.1 0.1 Abs Immat Gran (auto) 0.07 H 0.05 H Absolute Neuts (auto) 8.0 5.8 Absolute Nucleated RBC 0.000 0.000 Nucleated RBC % (auto) 0.0 0.0 ESR 85 H Anion Gap 15 Estim Creat Clear Calc 92.4 Estimated GFR > 60 Random Glucose 197 H Lactic Acid 1.0 Calcium 9.5 Total Bilirubin 0.2 AST 26 ALT 39 Alkaline Phosphatase 115 C-Reactive Protein 1.77 H Total Protein 9.1 H Albumin 3.8 Imaging Radiologist's Impressions: Impressions Foot X-Ray 11/17/23 13:20 IMPRESSION: Postsurgical changes as described. No radiographic evidence of osteomyelitis. If there is a high clinical suspicion, consider MRI. Assessment and Plan (1) Cellulitis of left foot: Status: Acute (2) Major depression, recurrent: Qualifiers: Active/Remission status: currently active Major depression episode severity: moderate Qualified Code(s): F33.1 - Major depressive disorder, recurrent, moderate Status: Acute (3) Dyslipidemia: Status: Acute (4) PAD (peripheral artery disease): Status: Acute (5) Atrial fibrillation: Qualifiers: Atrial fibrillation type: unspecified Qualified Code(s): I48.91 - Unspecified atrial fibrillation Status: Acute Plan Pierre West is a 58 years old man admitted with: * Left foot cellulitis associated to recent 1st toe amputation. CRP is elevated but better that prior. Recent left foot MRI showed osteomyelitis. Admit to hospitalist service. Continue empiric IV antibiotic therapy with Zosyn and vancomycin. Pain control with Dilaudid IV as needed. Continue gabapentin. Blood cultures obtained -will follow results. Vascular surgery consult. * Type 2 diabetes mellitus. Continue Lantus, farxiga and insulin sliding scale. * Essential hypertension. Continue losartan * GERD. Continue PPI. * Mood disorder. Continue sertraline. * CAD (s/p heart surgery) and PAD. Continue statin, aspirin and Plavix. * Hyperlipidemia. Continue statin * History of right BKA. * Atrial fibrillation. Continue amiodarone. Quality Stroke Does the patient have a stroke diagnosis?: No VTE Prior VTE?: No VTE Risk Level:: Medical - moderate - high VTE Device Contraindication: Treatment Not Indicated VTE Drug Contraindication: N/A - Med Ordered
[2023-11-18] MEDS: Piperacillin Sodium/Tazobactam 3.375 GM in 0.9 % Sodium Chloride 50 ML IV ×2 (07:25→13:20)
[2023-11-18 07:33] LABS: Glucose, Whole Blood 187 mg/dL (60-115)
[2023-11-18] MEDS: diphenhydrAMINE HCL 50 MG/ML VIAL 25 MG IVPUSH ×2 (08:44→14:26)
[2023-11-18] MEDS: Insulin Lispro 100 UNIT/ML 3 ML VIAL SUBCUT ×4 (08:44→21:01)
[2023-11-18 09:23] LABS: Creatinine Clr Calc Pharmacy 110.5; Estimated Glomerular Filt Rate > 60
--- NOTE | 2023-11-18 09:30 | PHA.MEDREC ---
Pharmacy Consult ? Medication Reconciliation Pharmacy has completed the medication reconciliation. Pt reports all meds confirmed. Utilized tankage grinder services. Metoprolol per pharmacy is active.
--- NOTE | 2023-11-18 10:44 | PM.EVENT ---
Event Note Date of Service: 11/18/23 Event Note: Seen and evaluated this morning Continue IV antibiotics Pending surgical evaluation Dilaudid for pain control Local wound care Time Spent With Patient Time: Total time managing care of this patient today ____ minutes.
[2023-11-18] MEDS: Metoprolol Succinate ER 50 MG TAB.ER.24H PO (10:51)
[2023-11-18] MEDS: Famotidine 20 MG TABLET 40 MG PO (10:51)
[2023-11-18] MEDS: Clopidogrel Bisulfate 75 MG TABLET PO (10:51)
[2023-11-18] MEDS: Losartan Potassium 25 MG TABLET PO (10:52)
[2023-11-18] MEDS: Aspirin 81 MG TAB.CHEW PO (10:52)
[2023-11-18] MEDS: Amiodarone HCL 200 MG TABLET PO ×2 (10:52→21:00)
[2023-11-18] MEDS: 0.9 % Sodium Chloride Flush 3 ML SYRINGE IVFLUSH ×2 (10:52→14:27)
--- NOTE | 2023-11-18 11:12 | PHA.PROG ---
Admission Date/Time: November 18, 2023 00:46 Indication: skin Weight in k kg Adjusted body weight in K.62 [place] body weight in K.7 Obesity Dosing Indication % IBW: 30.3 Serum Creatinine - Last 168 Hours 11/17/23 11/18/23 13:24 05:29 Creatinine 1.02 0.83 Estimated CrCl and GFR - Last 168 Hours 11/17/23 11/18/23 13:24 05:29 Estim Creat Clear Calc 92.4 110.5 Estimated GFR > 60 > 60 Vancomycin Loading Dose: 2000 mg Current Vancomycin Dosing Regimen: 1000 mg q12 Vancomycin Monitoring using AUC goal of 400 - 600 range with trough as surrogate marker:418 Date and Time for next Vancomycin Level to be drawn:3.24 @1000 Pharmacist Comments on Vancomycin Plan: Vancomycin dosing will take advantage of [employer] as a clinical decision support tool that uses Bayesian modeling to calculate individual patient's pharmacokinetic parameters and forecast the patient's drug concentration time course with the target goal AUC 24 range of 400 - 600 mg/L/hr.
[2023-11-18 11:17] LABS: Glucose, Whole Blood 255 mg/dL (60-115)
[2023-11-18] MEDS: vancomycin HCL 1,000 MG in 0.9 % Sodium Chloride 250 ML 270 MG IV (11:55)
[2023-11-18] MEDS: Gabapentin 600 MG TABLET PO ×2 (14:26→21:00)
--- NOTE | 2023-11-18 14:30 | PC.NURSE ---
MD Berg made aware pt reporting itching on face and arms after IV Zosyn administration, pt states this happened his last admission and was given Benadryl with abx. ordered PRN Benadryl, given with good effect.
[2023-11-18 16:18] LABS: Glucose, Whole Blood 183 mg/dL (60-115)
[2023-11-18 20:24] LABS: Glucose, Whole Blood 250 mg/dL (60-115)
[2023-11-18] MEDS: Atorvastatin Calcium 80 MG TABLET PO (21:00)
[2023-11-18] MEDS: Insulin Glargine,Hum.rec.anlog 100 UNIT/ML 10 ML VIAL 34 UNIT SUBCUT (21:01)
[2023-11-18] MEDS: Sertraline HCL 25 MG TABLET 75 MG PO (21:10)
[2023-11-19] MEDS: Acetaminophen 325 MG TABLET 650 MG PO (00:11)
[2023-11-19] MEDS: 0.9 % Sodium Chloride Flush 3 ML SYRINGE IVFLUSH ×4 (00:13→20:19)
[2023-11-19] MEDS: HYDROmorphone HCl 1 MG/ML SYRINGE IVPUSH ×5 (00:37→20:57)
[2023-11-19] MEDS: vancomycin HCL 1,000 MG in 0.9 % Sodium Chloride 250 ML 270 MG IV (00:40)
[2023-11-19 03:14] VITALS: BP 153/77; PULSE 66; RESP 16; TEMP 36.6; O2SAT 98
[2023-11-19 06:07] LABS: Hematocrit 34.7 % (42.0-52.0); Hemoglobin 10.5 g/dl (14.0-18.0); Mean Corpuscular HGB Conc 30.3 g/dl (31.0-36.0); Mean Corpuscular Hemoglobin 24.5 pg (27.0-33.0); Mean Corpuscular Volume 81.1 fL (80.0-98.0); Mean Platelet Volume 10.1 fL (9.4-12.4); Platelet Count 289 X10*3/uL (160-400); Red Blood Count 4.28 X10*6/uL (4.60-5.80); Red Cell Distribution Width 15.9 % (11.0-16.0); White Blood Count 8.5 X10*3/uL (4.8-10.8)
[2023-11-19 06:08] LABS: Anion Gap 10 (12-20); Blood Urea Nitrogen 14 mg/dL (9-16); Calcium 8.9 mg/dL (8.4-10.2); Carbon Dioxide 27 mmol/L (22-29); Chloride 102 mmol/L (96-108); Creatinine Clr Calc Pharmacy 109.2; Creatinine Clr Calc Pharmacy 116.1; Estimated Glomerular Filt Rate > 60; Glucose Random 161 mg/dL (60-115); Potassium 4.2 mmol/L (3.3-5.1); Sodium 135 mmol/L (135-145)
[2023-11-19 07:10] VITALS: BP 161/73; PULSE 65; RESP 16; TEMP 36.3; O2SAT 97
[2023-11-19 07:16] LABS: Glucose, Whole Blood 150 mg/dL (60-115)
[2023-11-19] MEDS: Aspirin 81 MG TAB.CHEW PO (07:28)
[2023-11-19] MEDS: Amiodarone HCL 200 MG TABLET PO ×2 (07:28→20:19)
[2023-11-19] MEDS: Gabapentin 600 MG TABLET PO ×3 (07:28→20:19)
[2023-11-19] MEDS: Losartan Potassium 25 MG TABLET PO (07:28)
[2023-11-19] MEDS: Clopidogrel Bisulfate 75 MG TABLET PO (07:28)
[2023-11-19] MEDS: Metoprolol Succinate ER 50 MG TAB.ER.24H PO (07:28)
[2023-11-19] MEDS: Famotidine 20 MG TABLET 40 MG PO (07:28)
[2023-11-19] MEDS: Empagliflozin 10 MG TABLET PO (09:56)
--- NOTE | 2023-11-19 10:30 | HO.PM.IMPN ---
Subjective Subjective Date of Service: 11/19/23 Interval History: Seen and evaluated this morning Pain better controlled Ozing from the wound no fever or chills Review of Systems Review of Systems: Yes all other systems are reviewed and are negative Physical Exam Vital Signs: Vital Signs: Last Vital Signs Temp 97.3 F 11/19/23 07:10 Pulse 65 11/19/23 07:10 Resp 16 11/19/23 07:10 BP 161/73 H 11/19/23 07:10 Pulse Ox 97 11/19/23 07:10 O2 Del Method Room Air 11/19/23 07:10 BMI result Body Mass Index 32.0 Const: Other: Constitutional : Awake, interactive, not in distress Neck : Normal inspection, Supple Cardiovascular : RRR, no JVP, no lower extremity edema Respiratory : good bilateral air entry, no crackles, wheezes or rhonchi Gastrointestinal: soft, lax, Normal bowel sounds, Non tender Skin : Warm, Dry, erythema improving in his foot at 1st, toe amputation site with some bloody oozing, covered in dressing Neurological : Alert & oriented x3, No focal deficit , CN 2-12 within normal Objective Data Active Medications Acetaminophen (Acetaminophen 325 Mg Tablet) 650 mg PO Q6H PRN PRN Reason: Pain, Mild (Pain Scale 1-3) Last Admin: 11/19/23 00:11 Dose: 650 mg Documented By: LASHANDA Amiodarone HCl (Amiodarone Hcl 200 Mg Tablet) 200 mg PO BID [facility] Last Admin: 11/19/23 07:28 Dose: 200 mg Documented By: KESHIA Aspirin (Aspirin 81 Mg Tab.Chew) 81 mg PO DAILY [facility] Last Admin: 11/19/23 07:28 Dose: 81 mg Documented By: KESHIA Atorvastatin Calcium (Atorvastatin Calcium 80 Mg Tablet) 80 mg PO BEDTIME [facility] Last Admin: 11/18/23 21:00 Dose: 80 mg Documented By: JAYME Clopidogrel Bisulfate (Clopidogrel Bisulfate 75 Mg Tablet) 75 mg PO DAILY [facility] Last Admin: 11/19/23 07:28 Dose: 75 mg Documented By: KESHIA Dextrose (Dextrose 50 % 25 Gm/50 Ml Syringe) 25 gm IVPUSH Q15M PRN; Protocol PRN Reason: per Hypoglycemia Standing Ord. Diphenhydramine HCl (Diphenhydramine Hcl 50 Mg/Ml Vial) 25 mg IVPUSH Q6H PRN PRN Reason: Allergic Reaction Last Admin: 11/18/23 14:26 Dose: 25 mg Documented By: KESHIA Comments: ok to give early per md arias Empagliflozin (Empagliflozin 10 Mg Tablet) 10 mg PO DAILY [facility] Last Admin: 11/19/23 09:56 Dose: 10 mg Documented By: KESHIA Famotidine (Famotidine 20 Mg Tablet) 40 mg PO DAILY [facility] Last Admin: 11/19/23 07:28 Dose: 40 mg Documented By: KESHIA Gabapentin (Gabapentin 600 Mg Tablet) 600 mg PO TID [facility] Last Admin: 11/19/23 07:28 Dose: 600 mg Documented By: KESHIA Glucose (Glucose Gel 15 Gm Gel..Gram.) 15 gm PO Q15M PRN; Protocol PRN Reason: per Hypoglycemia Standing Ord. Hydromorphone HCl (Hydromorphone Hcl 1 Mg/Ml Syringe) 1 mg IVPUSH Q4H PRN; Protocol PRN Reason: Pain, Severe (Pain Scale 7-10) Last Admin: 11/19/23 07:28 Dose: 1 mg Documented By: KESHIA Vancomycin HCl 1,000 mg/ (Sodium Chloride) 270 mls @ 270 mls/hr IV Q12H [facility] Last Infusion: 11/19/23 01:58 Dose: Infused Documented By: LASHANDA Insulin Glargine (Insulin Glargine,Hum.Rec.Anlog 100 Unit/Ml 10 Ml Vial) 34 unit SUBCUT BEDTIME [facility] Last Admin: 11/18/23 21:01 Dose: 34 unit Documented By: JAYME Insulin Human Lispro (Insulin Lispro 100 Unit/Ml 3 Ml Vial) 0 unit SUBCUT QIDACHS [facility]; Protocol Last Admin: 11/19/23 07:14 Dose: Not Given Documented By: KESHIA Non-Admin Reason: No Insulin Coverage Losartan Potassium (Losartan Potassium 25 Mg Tablet) 25 mg PO DAILY [facility]; Protocol Last Admin: 11/19/23 07:28 Dose: 25 mg Documented By: KESHIA Melatonin (Melatonin 3 Mg Tablet) 6 mg PO BEDTIME PRN PRN Reason: Sleep Metoprolol Succinate (Metoprolol Succinate Er 50 Mg Tab.Er.24h) 50 mg PO DAILY [facility]; Protocol Last Admin: 11/19/23 07:28 Dose: 50 mg Documented By: KESHIA Pharmacy Consult (Consult Rx Vancomycin Dosing) 1 each MISCELLANE DAILY PRN PRN Reason: Consult order Sertraline HCl (Sertraline Hcl 25 Mg Tablet) 75 mg PO BEDTIME [facility] Last Admin: 11/18/23 21:10 Dose: 75 mg Documented By: JAYME Sodium Chloride (0.9 % Sodium Chloride Flush 3 Ml Syringe) 3 ml IVFLUSH QSHIFT [facility] Last Admin: 11/19/23 07:27 Dose: 3 ml Documented By: KESHIA Labs 11/19/23 05:44 11/19/23 05:44 Labs: Laboratory Results - last 24 hr 11/18/23 11/18/23 11/18/23 10:56 16:12 20:18 MCV MCH MCHC RDW Plt Count MPV Absolute Nucleated RBC Nucleated RBC % (auto) Anion Gap Estim Creat Clear Calc Estimated GFR POC Glucose 255 H 183 H 250 H Random Glucose Calcium 11/19/23 11/19/23 11/19/23 05:44 05:44 05:44 MCV 81.1 MCH 24.5 L MCHC 30.3 L RDW 15.9 Plt Count 289 MPV 10.1 Absolute Nucleated RBC 0.000 Nucleated RBC % (auto) 0.0 Anion Gap 10 L Estim Creat Clear Calc 109.2 116.1 Estimated GFR > 60 > 60 POC Glucose Random Glucose 161 H Calcium 8.9 D 11/19/23 07:13 MCV MCH MCHC RDW Plt Count MPV Absolute Nucleated RBC Nucleated RBC % (auto) Anion Gap Estim Creat Clear Calc Estimated GFR POC Glucose 150 H Random Glucose Calcium Microbiology Microbiology Results: Microbiology 11/17/23 22:32 Blood Culture - Preliminary Blood - Arterial Line No growth after 24 hours. 11/17/23 22:32 Blood Culture - Preliminary Blood - Arterial Line No growth after 24 hours. Assessment and Plan (1) Cellulitis of left foot: Status: Acute (2) Hyperglycemia due to diabetes mellitus: Status: Acute Plan Pierre West is a 58 years old man admitted with: # Left foot cellulitis and Amputation sites (1st and 5th toe) infection. improving XR Foot this time and Left foot MRI from last admission showing no evidence of OM Blood cultures pending Continue IV Vanco as site improving Dilaudid IV as needed Continue gabapentin. Vascular team consulted Follow Vancomycin trough # Type 2 diabetes mellitus w hyperglycemia. Continue Lantus, farxiga and insulin sliding scale. # Essential hypertension. Continue metoprolol, spironolactone and losartan. # GERD. Continue famotidine # Mood disorder. Continue sertraline. # CAD (s/p heart surgery) and PAD. Continue statin, aspirin and Plavix. # Hyperlipidemia. Continue statin # History of right BKA. # Atrial fibrillation. Currently rate and rhythm controlled. continue amiodarone DVT prophylaxis: On aspirin, Plavix. Code status: Full Patient will need hospitalization overnight for left foot cellulitis associated to recent amputation treatment with IV antibiotic therapy and evaluation by surgical service. Quality Stroke Does the patient have a stroke diagnosis?: No VTE Prior VTE?: No VTE Risk Level:: Medical - moderate - high VTE Device Contraindication: Treatment Not Indicated VTE Drug Contraindication: N/A - Med Ordered
[2023-11-19 10:33] LABS: Vancomycin Random 11.1 mcg/mL (15-20)
--- NOTE | 2023-11-19 10:46 | HE.PHANOTE ---
RE VANCO DOSING INCREASING DOSE TO 1500 Q12 TO ACHIEVE AUC 526 AND TROUGH 15.3. WILL RECHECK LEVEL 11/19 @1000 TO ENSURE SAFETY AND EFFICACY.
[2023-11-19 11:11] LABS: Glucose, Whole Blood 201 mg/dL (60-115)
[2023-11-19] MEDS: Insulin Lispro 100 UNIT/ML 3 ML VIAL SUBCUT ×3 (11:45→20:41)
[2023-11-19] MEDS: vancomycin HCL 1,500 MG in 0.9 % Sodium Chloride 500 ML 333.33 MG IV ×2 (11:46→23:41)
--- NOTE | 2023-11-19 13:31 | MHC.CM.PN ---
IMM 11/19/23 DELIVERED TO BEDSIDE, EMR REVIEWED, PT ADMITTED W/LEFT FOOT PAIN AND REPORTS TO CM HE ONLY HAD TYLENOL AT HOME. PT REPORTS HE LIVES W/HIS , SON AND STEPSON, PT IS USES A CANE OR WALKER W/HIS PROSTHETIC AND ALSO HAS CRUTCHES AND A WC, PT VERIFIES PCP IS ARYA SANCHES AND PT REPORTS HIS HCP IS HIS AND DTR, COPY ON FILE. ANTIC PT WILL DC HOME W/RESUMP OF [facility]/[employer] HRS ONCE MEDICALLY CLEARED.
[2023-11-19 15:22] VITALS: BP 137/61; PULSE 66; RESP 18; TEMP 36.4; O2SAT 97
--- NOTE | 2023-11-19 16:20 | HO.SKINPHOTO ---
Location: left foot s/p 1st and 5th toe amputation (10/24/23) Site cleansed with NaCl, pat dried, silver alginate applied, gauze applied, wrapped with kerlix. Wound care consult ordered, plans for MD Sheppard to see pt on Monday.
[2023-11-19 16:32] LABS: Glucose, Whole Blood 159 mg/dL (60-115)
[2023-11-19 19:34] VITALS: BP 138/72; PULSE 75; RESP 20; TEMP 36.2; O2SAT 96
[2023-11-19] MEDS: Sertraline HCL 25 MG TABLET 75 MG PO (20:19)
[2023-11-19] MEDS: Atorvastatin Calcium 80 MG TABLET PO (20:19)
[2023-11-19 20:26] LABS: Glucose, Whole Blood 163 mg/dL (60-115)
[2023-11-19] MEDS: Insulin Glargine,Hum.rec.anlog 100 UNIT/ML 10 ML VIAL 34 UNIT SUBCUT (20:42)
[2023-11-20] VITALS: BP 129/63; PULSE 67; RESP 20; TEMP 36.4; O2SAT 98
[2023-11-20] MEDS: HYDROmorphone HCl 1 MG/ML SYRINGE IVPUSH ×6 (01:19→23:45)
[2023-11-20 03:03] VITALS: BP 175/78; PULSE 69; RESP 18; TEMP 36.8; O2SAT 100
[2023-11-20 06:57] VITALS: BP 135/62; PULSE 72; RESP 17; TEMP 36.6; O2SAT 98
[2023-11-20 07:07] LABS: Creatinine Clr Calc Pharmacy 107.9; Estimated Glomerular Filt Rate > 60
[2023-11-20 07:09] LABS: Glucose, Whole Blood 185 mg/dL (60-115)
--- NOTE | 2023-11-20 08:40 | HO.PM.IMPN ---
Subjective Subjective Date of Service: 11/20/23 Interval History: Seen and evaluated this morning Pain better controlled no fever or chills Review of Systems Review of Systems: Yes all other systems are reviewed and are negative Physical Exam Vital Signs: Vital Signs: Last Vital Signs Temp 98 F 11/20/23 06:57 Pulse 72 11/20/23 06:57 Resp 17 11/20/23 06:57 BP 135/62 11/20/23 06:57 Pulse Ox 98 11/20/23 06:57 O2 Del Method Room Air 11/20/23 06:57 BMI result Body Mass Index 32.0 Const: Other: Constitutional : Awake, interactive, not in distress Neck : Normal inspection, Supple Cardiovascular : RRR, no JVP, no lower extremity edema Respiratory : good bilateral air entry, no crackles, wheezes or rhonchi Gastrointestinal: soft, lax, Normal bowel sounds, Non tender Skin : Warm, Dry, erythema improving in his foot at 1st, toe amputation site with some bloody oozing, covered in dressing Neurological : Alert & oriented x3, No focal deficit , CN 2-12 within normal Objective Data Active Medications Acetaminophen (Acetaminophen 325 Mg Tablet) 650 mg PO Q6H PRN PRN Reason: Pain, Mild (Pain Scale 1-3) Last Admin: 11/19/23 00:11 Dose: 650 mg Documented By: LASHANDA Amiodarone HCl (Amiodarone Hcl 200 Mg Tablet) 200 mg PO BID [facility] Last Admin: 11/19/23 20:19 Dose: 200 mg Documented By: MICHELLE Aspirin (Aspirin 81 Mg Tab.Chew) 81 mg PO DAILY [facility] Last Admin: 11/19/23 07:28 Dose: 81 mg Documented By: KESHIA Atorvastatin Calcium (Atorvastatin Calcium 80 Mg Tablet) 80 mg PO BEDTIME [facility] Last Admin: 11/19/23 20:19 Dose: 80 mg Documented By: MICHELLE Clopidogrel Bisulfate (Clopidogrel Bisulfate 75 Mg Tablet) 75 mg PO DAILY [facility] Last Admin: 11/19/23 07:28 Dose: 75 mg Documented By: KESHIA Dextrose (Dextrose 50 % 25 Gm/50 Ml Syringe) 25 gm IVPUSH Q15M PRN; Protocol PRN Reason: per Hypoglycemia Standing Ord. Diphenhydramine HCl (Diphenhydramine Hcl 50 Mg/Ml Vial) 25 mg IVPUSH Q6H PRN PRN Reason: Allergic Reaction Last Admin: 11/18/23 14:26 Dose: 25 mg Documented By: KESHIA Comments: ok to give early per md arias Empagliflozin (Empagliflozin 10 Mg Tablet) 10 mg PO DAILY [facility] Last Admin: 11/19/23 09:56 Dose: 10 mg Documented By: KESHIA Famotidine (Famotidine 20 Mg Tablet) 40 mg PO DAILY [facility] Last Admin: 11/19/23 07:28 Dose: 40 mg Documented By: KESHIA Gabapentin (Gabapentin 600 Mg Tablet) 600 mg PO TID [facility] Last Admin: 11/19/23 20:19 Dose: 600 mg Documented By: MICHELLE Glucose (Glucose Gel 15 Gm Gel..Gram.) 15 gm PO Q15M PRN; Protocol PRN Reason: per Hypoglycemia Standing Ord. Hydromorphone HCl (Hydromorphone Hcl 1 Mg/Ml Syringe) 1 mg IVPUSH Q4H PRN; Protocol PRN Reason: Pain, Severe (Pain Scale 7-10) Last Admin: 11/20/23 05:17 Dose: 1 mg Documented By: MICHELLE Vancomycin HCl 1,500 mg/ (Sodium Chloride) 500 mls @ 333.333 mls/hr IV Q12H [facility] Last Infusion: 11/20/23 01:16 Dose: Infused Documented By: MICHELLE Insulin Glargine (Insulin Glargine,Hum.Rec.Anlog 100 Unit/Ml 10 Ml Vial) 34 unit SUBCUT BEDTIME [facility] Last Admin: 11/19/23 20:42 Dose: 34 unit Documented By: MICHELLE Insulin Human Lispro (Insulin Lispro 100 Unit/Ml 3 Ml Vial) 0 unit SUBCUT QIDACHS [facility]; Protocol Last Admin: 11/19/23 20:41 Dose: 2 unit Documented By: MICHELLE Losartan Potassium (Losartan Potassium 25 Mg Tablet) 25 mg PO DAILY [facility]; Protocol Last Admin: 11/19/23 07:28 Dose: 25 mg Documented By: KESHIA Melatonin (Melatonin 3 Mg Tablet) 6 mg PO BEDTIME PRN PRN Reason: Sleep Metoprolol Succinate (Metoprolol Succinate Er 50 Mg Tab.Er.24h) 50 mg PO DAILY [facility]; Protocol Last Admin: 11/19/23 07:28 Dose: 50 mg Documented By: KESHIA Pharmacy Consult (Consult Rx Vancomycin Dosing) 1 each MISCELLANE DAILY PRN PRN Reason: Consult order Sertraline HCl (Sertraline Hcl 25 Mg Tablet) 75 mg PO BEDTIME [facility] Last Admin: 11/19/23 20:19 Dose: 75 mg Documented By: MICHELLE Sodium Chloride (0.9 % Sodium Chloride Flush 3 Ml Syringe) 3 ml IVFLUSH QSHIFT [facility] Last Admin: 11/19/23 20:19 Dose: 3 ml Documented By: MICHELLE Labs 11/19/23 05:44 11/20/23 05:58 Labs: Laboratory Results - last 24 hr 11/19/23 11/19/23 11/19/23 10:03 11:07 16:18 Estim Creat Clear Calc Estimated GFR POC Glucose 201 H 159 H Random Vancomycin 11.1 L 11/19/23 11/20/23 11/20/23 20:13 05:58 06:56 Estim Creat Clear Calc 107.9 Estimated GFR > 60 POC Glucose 163 H 185 H Random Vancomycin Microbiology Microbiology Results: Microbiology 11/17/23 22:32 Blood Culture - Preliminary Blood - Arterial Line No growth after 48 hours. 11/17/23 22:32 Blood Culture - Preliminary Blood - Arterial Line No growth after 48 hours. Assessment and Plan (1) Cellulitis of left foot: Status: Acute (2) Hyperglycemia due to diabetes mellitus: Status: Acute Plan Pierre West is a 58 years old man admitted with: # Left foot cellulitis and Amputation sites (1st and 5th toe) infection. improving XR Foot this time and Left foot MRI from last admission showing no evidence of OM Blood cultures pending Continue IV Vanco as site improving Dilaudid IV as needed Continue gabapentin. Vascular team consult pending Follow Vancomycin trough # Type 2 diabetes mellitus w hyperglycemia. Continue Lantus, farxiga and insulin sliding scale. # Essential hypertension. Continue metoprolol, spironolactone and losartan. # GERD. Continue famotidine # Mood disorder. Continue sertraline. # CAD (s/p heart surgery) and PAD. Continue statin, aspirin and Plavix. # Hyperlipidemia. Continue statin # History of right BKA. # Atrial fibrillation. Currently rate and rhythm controlled. continue amiodarone DVT prophylaxis: On aspirin, Plavix. Code status: Full Patient will need hospitalization overnight for left foot cellulitis associated to recent amputation treatment with IV antibiotic therapy and evaluation by surgical service. Quality Stroke Does the patient have a stroke diagnosis?: No VTE Prior VTE?: No VTE Risk Level:: Medical - moderate - high VTE Device Contraindication: Treatment Not Indicated VTE Drug Contraindication: N/A - Med Ordered
[2023-11-20] MEDS: Amiodarone HCL 200 MG TABLET PO ×2 (09:19→20:36)
[2023-11-20] MEDS: Insulin Lispro 100 UNIT/ML 3 ML VIAL SUBCUT ×4 (09:20→20:39)
[2023-11-20] MEDS: Aspirin 81 MG TAB.CHEW PO (09:20)
[2023-11-20] MEDS: Famotidine 20 MG TABLET 40 MG PO (09:20)
[2023-11-20] MEDS: Empagliflozin 10 MG TABLET PO (09:20)
[2023-11-20] MEDS: Losartan Potassium 25 MG TABLET PO (09:20)
[2023-11-20] MEDS: Clopidogrel Bisulfate 75 MG TABLET PO (09:20)
[2023-11-20] MEDS: Metoprolol Succinate ER 50 MG TAB.ER.24H PO (09:20)
[2023-11-20] MEDS: Gabapentin 600 MG TABLET PO ×3 (09:20→20:36)
[2023-11-20] MEDS: 0.9 % Sodium Chloride Flush 3 ML SYRINGE IVFLUSH ×3 (09:20→20:43)
[2023-11-20 10:53] LABS: Vancomycin Random 16.4 mcg/mL (15-20)
--- NOTE | 2023-11-20 11:02 | HE.PHANOTE ---
RE: omkar Patient's creatinine went up, changed dose to 1250mg Q12H with predicted trough of 14.5 AUC of 479. Next level to be drawn 11/20 @1000
[2023-11-20 11:06] LABS: Glucose, Whole Blood 204 mg/dL (60-115)
[2023-11-20] MEDS: vancomycin HCL 1,250 MG in 0.9 % Sodium Chloride 250 ML 166.67 MG IV ×2 (11:16→23:48)
--- NOTE | 2023-11-20 11:48 | MHC.CM.PN ---
PER MD ROUNDS PATIENT IS NOT MEDICALLY CLEARED FOR DC. CM WILL CONTINUE TO FOLLOW.
[2023-11-20] MEDS: oxyCODONE HCl Immed Release 5 MG TABLET PO ×2 (13:05→20:34)
--- NOTE | 2023-11-20 13:58 | HO.WOUND ---
Wound Consult: Initial 58yr old?M admitted to [facility] on 11/18/23 - See progress notes and H&P for detailed history.? 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 Patient agreeable to assessment and photo documentation. Patient pending Dr. Sheppard consultation. ? Left 5th toe amp site Left Great Toe amp site Etiology: ?Chronic nonhealing surgical sites - Diabetic wounds Measurements:see charting for detailed measurements Wound Bed: dried black adherent to wound bed scab Drainage / Odor: Small amount of serosang on dressing - no odor noted Edges: ? macerated and irregular Tegan wound: ? Prink mild erythema - dry scaling epidermal layer - No Induration, Fluctuance or Warmth noted Pain: Significant pain reported Goals of Treatment: ? Defer to Dr. Sheppard Given chronic nature of wounds and amputation sites and significant pain - defer to Dr. Sheppard for evaluation and consider debridement. As I am unable to appreciate the wound bed and depth of the wound - given the patients level of pain he was not able to tolerate wound cleansing or probing. Durafiber AG applied to wound bed at this time. Recommendations: 1. Turn and Reposition every 2 hours and as needed for patient comfort.? Use pillows or wedges to support off loading positions. 2. Off Load all bony prominences with use of pillows and heel boots if needed.? Apply Preventative foams where needed. ? 3. Monitor for incontinence and moisture control, use barrier creams when needed for prevention and treatment. 4. Provide adequate and supplemental nutrition.? 5. Order or Continue low air loss mattress. 6. When applicable maintain blood glucose levels per Providers order. 7. Left Foot wound sites - defer to Dr. Sheppard until consultation completed - Cleanse and irrigate with wound cleanser, apply skin prep to periwound. Apply cut to size Durafiber AG cover with dry gauze and wrap. Change every other day. Re-consult wound care Nurse for wound deterioration or wound changes.
[2023-11-20 15:29] VITALS: BP 106/51; PULSE 70; RESP 18; TEMP 36.8; O2SAT 97
[2023-11-20 16:24] LABS: Glucose, Whole Blood 233 mg/dL (60-115)
[2023-11-20 19:20] VITALS: BP 137/73; PULSE 76; RESP 20; TEMP 36.8; O2SAT 97
[2023-11-20 20:20] LABS: Glucose, Whole Blood 170 mg/dL (60-115)
[2023-11-20] MEDS: Atorvastatin Calcium 80 MG TABLET PO (20:36)
[2023-11-20] MEDS: Sertraline HCL 25 MG TABLET 75 MG PO (20:36)
[2023-11-20] MEDS: Insulin Glargine,Hum.rec.anlog 100 UNIT/ML 10 ML VIAL 34 UNIT SUBCUT (20:39)
[2023-11-20 23:41] VITALS: BP 119/56; PULSE 68; RESP 16; TEMP 36.5; O2SAT 95
[2023-11-21 04:00] VITALS: BP 151/72; PULSE 73; RESP 16; TEMP 36.3; O2SAT 96
[2023-11-21] MEDS: Acetaminophen 325 MG TABLET 650 MG PO (04:10)
[2023-11-21] MEDS: oxyCODONE HCl Immed Release 5 MG TABLET PO ×2 (04:10→10:35)
[2023-11-21 07:29] VITALS: BP 137/63; PULSE 80; RESP 18; TEMP 36.7; O2SAT 96
[2023-11-21] MEDS: Famotidine 20 MG TABLET 40 MG PO (07:53)
[2023-11-21] MEDS: Clopidogrel Bisulfate 75 MG TABLET PO (07:53)
[2023-11-21] MEDS: Metoprolol Succinate ER 50 MG TAB.ER.24H PO (07:53)
[2023-11-21] MEDS: Aspirin 81 MG TAB.CHEW PO (07:53)
[2023-11-21] MEDS: Gabapentin 600 MG TABLET PO (07:53)
[2023-11-21] MEDS: Amiodarone HCL 200 MG TABLET PO (07:53)
[2023-11-21] MEDS: Empagliflozin 10 MG TABLET PO (07:53)
[2023-11-21] MEDS: HYDROmorphone HCl 1 MG/ML SYRINGE IVPUSH ×2 (07:54→11:49)
[2023-11-21] MEDS: 0.9 % Sodium Chloride Flush 3 ML SYRINGE IVFLUSH (07:54)
[2023-11-21] MEDS: Losartan Potassium 25 MG TABLET PO (07:54)
[2023-11-21 07:55] LABS: Glucose, Whole Blood 207 mg/dL (60-115)
[2023-11-21] MEDS: Insulin Lispro 100 UNIT/ML 3 ML VIAL SUBCUT ×2 (07:56→11:44)
--- NOTE | 2023-11-21 10:03 | P.CONGS_ITS ---
History of Present Illness Consult details Consult date: 11/21/23 Reason for consult: wound care Narrative: Very pleasant 58-year-old gentleman well known to me status post left 1st and 5th toe amputation. He has had poor healing at those amputation sites. Continues to be a source discomfort for him. He presented to the hospital with increasing intensity of pain especially in the front of the foot. Had actually seen me a day before in the office in seemed to be relatively well controlled at that point. Now presents to us for vascular follow-up. Review of Systems 2 Review of Systems: Yes all other systems are reviewed and are negative Constitutional: Constitutional: Reports no additional constitutional complaints ENT: Reports Normal hearing present Cardiovascular: Cardiovascular: Denies chest pain, Denies chest pain at rest, Denies chest pain with activity and Denies pedal edema Respiratory: Respiratory: Denies cough Gastrointestinal: Gastrointestinal: Denies abdominal pain Musculoskeletal: Musculoskeletal: Denies abnormal gait, Denies muscle cramps and Denies radiating pain into limb Integumentary/Breasts: Skin/Breast: Denies skin ulcer and Denies wounds Neurologic: Reports Normal hearing present and Denies abnormal gait Psychiatric: Psychiatric: Reports no additional psychiatric complaints PMFSH Past Medical History Medical History 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 Diabetes mellitus with retinopathy, with long-term current use of insulin PAD (peripheral artery disease) Heartburn symptom Amputation stump infection Major depression, recurrent Erectile dysfunction Dyslipidemia Diabetes mellitus, with long-term current use of insulin Amputation stump complication Intractable left heel pain Chronic 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 Type 2 diabetes mellitus with diabetic polyneuropathy Type 2 diabetes mellitus with hyperglycemia Hyperlipidemia Chronic pancreatitis Essential hypertension Diabetes mellitus with hyperglycemia, with long-term current use of insulin Neuropathy Kidney calculus Failure of outpatient treatment Increased BMI Alcohol abuse CAD (coronary artery disease) Arthritis Family History Family History Mother [place] (myocardial infarction), Onset Age: 64 Diabetes mellitus HTN (hypertension) Maternal Grandmother Diabetes mellitus Surgical History Surgical History S/P angiogram of extremity (06/28/23) History of right below knee amputation Status post below-knee amputation S/P debridement Hx of lithotripsy Status post laparoscopic cholecystectomy Hx of heart artery stent Social History Social History Household Members: Family Household Members Other:: and daughter Housing: Apartment Do you presently have visiting nurse or other home services: Yes (wound care and PT) Alcohol intake: former Comment: pt ambulates with crutches. Patient Tobacco Use Status: Former Tobacco user Quit Date: Jun 2023 Tobacco use type: Cigarette Cigarette Packs Per Day: 0.01 Cigarettes Per Day: 3 Years Smoked: 25+ e-Cigarette/Vaping Use: Never Used Second Hand Smoke Exposure: No Substance Use Type: Marijuana Advance Directives Date on File: 04/17/21 service: No Current occupational status: unemployed and disabled Cognitive needs: No Hearing needs: No Vision needs: Yes Meds Allergies Allergy/AdvReac Type Severity Reaction Status Date / Time zosyn AdvReac Mild Itching Uncoded 11/18/23 15:27 Active Medications: Current Medications Acetaminophen (Acetaminophen 325 Mg Tablet) 650 mg PO Q6H PRN PRN Reason: Pain, Mild (Pain Scale 1-3) Last Admin: 11/21/23 04:10 Dose: 650 mg Amiodarone HCl (Amiodarone Hcl 200 Mg Tablet) 200 mg PO BID [facility] Last Admin: 11/21/23 07:53 Dose: 200 mg Aspirin (Aspirin 81 Mg Tab.Chew) 81 mg PO DAILY [facility] Last Admin: 11/21/23 07:53 Dose: 81 mg Atorvastatin Calcium (Atorvastatin Calcium 80 Mg Tablet) 80 mg PO BEDTIME [facility] Last Admin: 11/20/23 20:36 Dose: 80 mg Clopidogrel Bisulfate (Clopidogrel Bisulfate 75 Mg Tablet) 75 mg PO DAILY [facility] Last Admin: 11/21/23 07:53 Dose: 75 mg Dextrose (Dextrose 50 % 25 Gm/50 Ml Syringe) 25 gm IVPUSH Q15M PRN; Protocol PRN Reason: per Hypoglycemia Standing Ord. Diphenhydramine HCl (Diphenhydramine Hcl 50 Mg/Ml Vial) 25 mg IVPUSH Q6H PRN PRN Reason: Allergic Reaction Last Admin: 11/18/23 14:26 Dose: 25 mg Empagliflozin (Empagliflozin 10 Mg Tablet) 10 mg PO DAILY [facility] Last Admin: 11/21/23 07:53 Dose: 10 mg Famotidine (Famotidine 20 Mg Tablet) 40 mg PO DAILY [facility] Last Admin: 11/21/23 07:53 Dose: 40 mg Gabapentin (Gabapentin 600 Mg Tablet) 600 mg PO TID [facility] Last Admin: 11/21/23 07:53 Dose: 600 mg Glucose (Glucose Gel 15 Gm Gel..Gram.) 15 gm PO Q15M PRN; Protocol PRN Reason: per Hypoglycemia Standing Ord. Hydromorphone HCl (Hydromorphone Hcl 1 Mg/Ml Syringe) 1 mg IVPUSH Q4H PRN; Protocol PRN Reason: Pain, Severe (Pain Scale 7-10) Last Admin: 11/21/23 07:54 Dose: 1 mg Vancomycin HCl 1,250 mg/ (Sodium Chloride) 250 mls @ 166.667 mls/hr IV Q12H [facility] Last Infusion: 11/21/23 01:23 Dose: Infused Insulin Glargine (Insulin Glargine,Hum.Rec.Anlog 100 Unit/Ml 10 Ml Vial) 34 unit SUBCUT BEDTIME [facility] Last Admin: 11/20/23 20:39 Dose: 34 unit Insulin Human Lispro (Insulin Lispro 100 Unit/Ml 3 Ml Vial) 0 unit SUBCUT QIDACHS [facility]; Protocol Last Admin: 11/21/23 07:56 Dose: 4 unit Losartan Potassium (Losartan Potassium 25 Mg Tablet) 25 mg PO DAILY [facility]; Protocol Last Admin: 11/21/23 07:54 Dose: 25 mg Melatonin (Melatonin 3 Mg Tablet) 6 mg PO BEDTIME PRN PRN Reason: Sleep Metoprolol Succinate (Metoprolol Succinate Er 50 Mg Tab.Er.24h) 50 mg PO DAILY [facility]; Protocol Last Admin: 11/21/23 07:53 Dose: 50 mg Oxycodone HCl (Oxycodone Hcl Immed Release 5 Mg Tablet) 5 mg PO Q6H PRN PRN Reason: Pain, Moderate(Pain Scale 4-6) Last Admin: 11/21/23 04:10 Dose: 5 mg Pharmacy Consult (Consult Rx Vancomycin Dosing) 1 each MISCELLANE DAILY PRN PRN Reason: Consult order Sertraline HCl (Sertraline Hcl 25 Mg Tablet) 75 mg PO BEDTIME [facility] Last Admin: 11/20/23 20:36 Dose: 75 mg Sodium Chloride (0.9 % Sodium Chloride Flush 3 Ml Syringe) 3 ml IVFLUSH QSHIFT [facility] Last Admin: 11/21/23 07:54 Dose: 3 ml Home Medications Medication Instructions Recorded Confirmed Last Taken Type blood sugar diagnostic (FreeStyle 12/01/22 06/28/23 Unknown History Lite Strips) blood-glucose meter (FreeStyle 12/01/22 06/28/23 Unknown History Lite Meter kit) atorvastatin 80 mg tablet 80 mg PO BEDTIME 06/20/23 11/18/23 11/17/23 History famotidine 40 mg tablet 40 mg PO DAILY heartburn 09/11/23 11/18/23 11/17/23 History melatonin 5 mg tablet 5 mg PO BEDTIME PRN Sleep 09/11/23 11/18/23 11/01/23 History acetaminophen 500 mg tablet 1,000 mg PO Q6H PRN Pain 10/18/23 11/18/23 11/01/23 History (Acetaminophen Extra Strength) amiodarone 200 mg tablet 200 mg PO BID 10/18/23 11/18/23 11/17/23 History insulin glargine 100 unit/mL (3 34 unit subcut BEDTIME 10/18/23 11/18/23 11/17/23 History mL) subcutaneous pen (Lantus Solostar U-100 Insulin) lidocaine 5 % topical patch 1 patch topical DAILY PRN moderate 10/18/23 11/18/23 10/18/23 History pain pantoprazole 40 mg tablet,delayed 40 mg PO DAILY@0630 10/18/23 11/18/23 11/17/23 History release clopidogrel 75 mg tablet 75 mg PO DAILY 11/18/23 11/18/23 11/17/23 History dapagliflozin propanediol 10 mg 10 mg PO DAILY 11/18/23 11/18/23 11/17/23 History tablet (Farxiga) losartan 25 mg tablet 25 mg PO DAILY 11/18/23 11/18/23 11/17/23 History sertraline 50 mg tablet 75 mg PO BEDTIME 11/18/23 11/18/23 11/17/23 History spironolactone 25 mg tablet 25 mg PO DAILY 11/18/23 11/18/23 11/17/23 History tramadol 50 mg tablet 50 mg PO Q6H PRN pain 11/18/23 11/18/23 Unknown History Physical Exam 2 Vital Signs: Vital Signs: Last Vital Signs Temp 98.1 F 11/21/23 07:29 Pulse 80 11/21/23 07:29 Resp 18 11/21/23 07:29 BP 137/63 11/21/23 07:29 Pulse Ox 96 11/21/23 07:29 O2 Del Method Room Air 11/21/23 07:29 BMI result Body Mass Index 32.0 Const: General: cooperative, healthy appearing and comfortable O rientation/consciousness: oriented to person, oriented to place and oriented to time HEENT: Head: Yes normal to inspection Neck: Neck: Yes normal visual inspection Carotids: no bruits Chest: Chest palpation & inspection: normal inspection of the chest Resp: Effort & Inspection: normal respiratory effort and able to speak in complete sentences Auscultation: clear to auscultation bilaterally, no crackles, no rales, no rhonchi and no wheezes Cardio: Rate: regular rate Rhythm: regular rhythm Heart sounds: S1 normal heart sound present and S2 normal heart sound present Bruits: no carotid bruits Peripheral pulses: Peripheral pulses 2+ throughout GI: Inspection: Yes normal to inspection Skin: Other: Left 1st and 5th toe poorly healing dry eschar overlying. Lateral foot ulcer as well Wounds: no wounds Hair: normal Neuro: General: oriented to person, oriented to place and oriented to time Cranial nerves: Yes CN's II-XII intact bilaterally and Yes Normal hearing present Cognition (Neuro): normal cognition Motor exam (neuro): 5/5 motor strength present throughout Extrem: Other: venous exam: No significant superficial varicosities or spider telangiectasias, minimal edema General: No clubbing, No cyanosis and No edema Psych: Appearance: grossly normal Mental Status: mental status grossly normal Speech and movement: Normal speech and movement present Results Labs 11/19/23 05:44 11/20/23 05:58 Labs: Abnormal lab results 11/20/23 11/20/23 11/20/23 Range/Units 11:02 16:15 20:09 POC Glucose 204 H 233 H 170 H (60-115) mg/dL 11/21/23 Range/Units 07:28 POC Glucose 207 H (60-115) mg/dL All other labs normal. Assessment and Plan (1) PAD (peripheral artery disease): Status: Acute Plan In short patient has a poorly healing left lower extremity amputation sites. Due to the pain and overall status of the foot the patient will require left transmetatarsal amputation. This can be scheduled electively as an outpatient. This was discussed with the patient and he is in agreement. Thank you for allowing us to assist in his care. If there are any questions or concerns please do not hesitate to contact us. Procedures Date of Service Date of Service: 11/21/23
[2023-11-21 10:29] LABS: Creatinine Clr Calc Pharmacy 97.6; Estimated Glomerular Filt Rate > 60; Vancomycin Random 17.7 mcg/mL (15-20)
--- NOTE | 2023-11-21 10:34 | P.DS_ITS ---
DS: Providers Provider Date of Service: 11/21/23 Date of admission: 11/18/23 00:46 Primary care physician: Shanta aHney MD Consults: 11/18/23 06:57 Consult to Vascular Surgery Routine Consulting Provider: [facility] Reason for consultation: Cellulitis status post amputation Has provider been notified: No 11/18/23 07:15 Consult to Wound Care Routine Reason for consultation: left foot cellulitis DS: Diagnosis Discharge Diagnosis (1) PAD (peripheral artery disease): Status: Acute (2) Cellulitis of left foot: Status: Acute (3) Hyperglycemia due to diabetes mellitus: Status: Acute DS: Summary Hospital Course Hospital Course: Admission note HPI Pierre West is a 58 years old man with past medical history significant for type 2 diabetes mellitus on insulin, PAD, right BKA, recent amputation of left 1st and 5th toe (by Dr. Sheppard; 10/24/23) due to diabetic ulcer, hyperlipidemia, essential hypertension and GERD presents to the emergency department complaining of left foot. Wound stitches were removed by Dr. Sheppard, vascular surgery. Denies fever or chills. He denies any use gastrointestinal or genitourinary symptoms. He was recently discharged on November 05 after being admitted with diagnosis of left foot cellulitis post amputation. At that time, he received treatment with vancomycin and Zosyn. Left foot MRI was obtained and showed no osteomyelitis. He was discharged home on Augmentin and doxycycline which he completed. In the ED, he was was found to have normal vital signs. The workup remarkable for mild leukocytosis that resolved. Blood workup showed hemoglobin of 10.3 and normal platelets. CRP is 1.77. There is no lactic acidosis. Electrolytes are normal. Left foot x-ray with post surgical changes as described without radiographic evidence of osteomyelitis. Hospital course The patient was admitted for Left foot cellulitis and Amputation sites (1st and 5th toe) infection. as an XR Foot this time and Left foot MRI from last admission showing no evidence of OM. Blood cultures remained negative as he was treated with IV Vancomycin as site improving. Oxycodone and Dilaudid IV as needed for pain management. He was evaluated by his surgeon dr Sheppard who suggested finishing antibiotics treatment as outpatient and follow with him for transMetatarsal amputation. Continue Doxycyclin as prescribed Follow with dr Sheppard for outpatient surgery arrangements Time Attestation Discharge Coordination Time (in mins): 36 Quality: Safe Use of Opioids Does Pt have an Active Cancer Diagnosis on the Problem List?: No Quality: Stroke Does the patient have a stroke diagnosis?: No Physical Exam 2 Vital Signs: Vital Signs: Last Vital Signs Temp 98.1 F 11/21/23 07:29 Pulse 80 11/21/23 07:29 Resp 18 11/21/23 07:29 BP 137/63 11/21/23 07:29 Pulse Ox 96 11/21/23 07:29 O2 Del Method Room Air 11/21/23 07:29 BMI result Body Mass Index 32.0 Const: Other: Constitutional : Awake, interactive, not in distress Neck : Normal inspection, Supple Cardiovascular : RRR, no JVP, no lower extremity edema Respiratory : good bilateral air entry, no crackles, wheezes or rhonchi Gastrointestinal: soft, lax, Normal bowel sounds, Non tender Skin : Warm, Dry, erythema improving in his foot at 1st, toe amputation site covered in dressing Neurological : Alert & oriented x3, No focal deficit , CN 2-12 within normal DS: Data Data Completed and Pending Completed studies during hospitalization [Text1]: Procedures Detachment at Left 1st Toe, Complete, Open Approach (10/18/23) Detachment at Left 5th Toe, Complete, Open Approach (10/18/23) Detachment at Right 1st Toe, Complete, Open Approach (08/18/21) Detachment at Right Lower Leg, High, Open Approach (08/18/21) Dilation of Left Peroneal Artery using Drug-Coated Balloon, Percutaneous Approach (10/18/23) Dilation of Right Ureter with Intraluminal Device, Via Natural or Artificial Opening Endoscopic (06/21/20) Excision of Right Tarsal, Open Approach (08/18/21) Extirpation of Matter from Right Ureter, Via Natural or Artificial Opening Endoscopic (06/21/20) Fluoroscopy of Right Kidney, Ureter and Bladder (06/21/20) Insertion of Infusion Device into Superior Vena Cava, Percutaneous Approach (08/18/21) Labs on day of discharge: Laboratory Results - last 24 hr 11/20/23 11/20/23 11/20/23 10:11 11:02 16:15 Hold Purple Top Creatinine Estim Creat Clear Calc Estimated GFR POC Glucose 204 H 233 H Hold Yellow Top Random Vancomycin 16.4 11/20/23 11/21/23 11/21/23 20:09 07:28 10:05 Hold Purple Top SEE NOTE Creatinine 0.94 Estim Creat Clear Calc 97.6 Estimated GFR > 60 POC Glucose 170 H 207 H Hold Yellow Top See Note Random Vancomycin 17.7 Preliminary micro results at discharge 11/17/23 22:32 Blood Culture - Preliminary Blood - Arterial Line No growth after 48 hours. 11/17/23 22:32 Blood Culture - Preliminary Blood - Arterial Line No growth after 48 hours. Imaging XR Foot : Radiologist's impression: ITS Impressions Foot X-Ray 11/17/23 13:20 IMPRESSION: Postsurgical changes as described. No radiographic evidence of osteomyelitis. If there is a high clinical suspicion, consider MRI. Discharge Plan Discharge Anticipated Discharge Date/Time: 11/21/23 10:29 Patient Disposition: Home Health Service Discharge Diagnosis: Left foot cellulitis Referrals: Shanta Haney MD [Primary Care Provider] - 1 Week Discharge Medications: New oxycodone 5 mg Tablet 5 mg PO Q6H PRN (Reason: Pain, Moderate(Pain Scale 4-6)) Qty: 24 0RF Rx Instructions: Partial Fill upon patient request. doxycycline monohydrate 100 mg capsule 100 mg PO BID Qty: 14 0RF Continued (DME) Bedside commode See Rx Instructions .Route .MEDSUPPLY Qty: 1 0RF Rx Instructions: As directed (DME) walker with wheels See Rx Instructions .Route .MEDSUPPLY Qty: 1 0RF Rx Instructions: As directed (DME) pen needle, diabetic [BD Ultra-Fine Short Pen Needle] 31 gauge x 5/16 needle See Rx Instructions .ROUTE .COMPLEX Qty: 100 5RF Dose Instruction: USE MARÍA LO INDICADO BENNETT VECES AL LIZZIE ANTES DE LAS COMIDAS Rx Instructions: USE MARÍA LO INDICADO BENNETT VECES AL LIZZIE ANTES DE LAS COMIDAS (DME) recliner See Rx Instructions .Route .MEDSUPPLY Qty: 1 0RF Rx Instructions: As directed (DME) FreeStyle Frank 2 [place] Misc See Rx Instructions .Route Qty: 1 0RF Rx Instructions: As directed (DME) FreeStyle Frank 2 Sensor Kit See Rx Instructions .Route Qty: 2 8RF Rx Instructions: As directed change every 14 days aspirin 81 mg tablet,chewable 81 mg PO DAILY Qty: 90 1RF metoprolol succinate 50 mg tablet extended release 24 hr 50 mg PO DAILY Qty: 90 1RF famotidine 40 mg tablet 40 mg PO DAILY melatonin 5 mg Tablet 5 mg PO BEDTIME PRN (Reason: Sleep) insulin lispro [Admelog U-100 Insulin lispro] 100 unit/mL Solution See Protocol subcut QIDACHS Qty: 10 0RF Protocol: Insulin Correction Scale Less than or equal to 110 ---- Give (units): 0 111 to 150 Give (units): 0 151 to 200 Give (units): 2 201 to 250 Give (units): 4 251 to 300 Give (units): 6 301 to 350 Give (units): 8 Greater than 350 Give (units): 10 Call MD if Blood Glucose > : 350 amiodarone 200 mg tablet 200 mg PO BID pantoprazole 40 mg tablet,delayed release (DR/EC) 40 mg PO DAILY@0630 lidocaine 5 % adhesive patch,medicated 1 patch topical DAILY PRN (Reason: moderate pain) acetaminophen [Acetaminophen Extra Strength] 500 mg Tablet 1,000 mg PO Q6H PRN (Reason: Pain) insulin glargine [Lantus Solostar U-100 Insulin] 100 unit/mL (3 mL) insulin pen 34 unit subcut BEDTIME clopidogrel 75 mg tablet 75 mg PO DAILY dapagliflozin propanediol [Farxiga] 10 mg tablet 10 mg PO DAILY losartan 25 mg tablet 25 mg PO DAILY sertraline 50 mg tablet 75 mg PO BEDTIME spironolactone 25 mg tablet 25 mg PO DAILY tramadol 50 mg tablet 50 mg PO Q6H PRN (Reason: pain) gabapentin 600 mg tablet 600 mg PO TID Qty: 90 4RF (DME) blood-glucose meter [FreeStyle Lite Meter] Kit See Rx Instructions .Route Rx Instructions: As directed (DME) FreeStyle Lite Strips Strip See Rx Instructions .Route Rx Instructions: As directed atorvastatin 80 mg tablet 80 mg PO BEDTIME Discharge Orders: Discharge Order (Routine); Ordered 11/21/23 Ordered By: Cecile Berg Diet: Advance to usual diet Activity on Discharge: As tolerated Stand Alone Forms: Patient Portal Discharge page Care Plan Goals: Read below Health Concerns: Read below Plan of Treatment: Read below Assessment: Continue Doxycyclin as prescribed Follow with dr Sheppard for outpatient surgery arrangements
[2023-11-21 10:37] LABS: Anion Gap 13 (12-20); Blood Urea Nitrogen 21 mg/dL (9-16); Calcium 9.8 mg/dL (8.4-10.2); Carbon Dioxide 29 mmol/L (22-29); Chloride 100 mmol/L (96-108); Creatinine Clr Calc Pharmacy 99.7; Estimated Glomerular Filt Rate > 60; Glucose Random 203 mg/dL (60-115); Potassium 4.3 mmol/L (3.3-5.1); Sodium 138 mmol/L (135-145)
--- NOTE | 2023-11-21 10:42 | HE.PHANOTE ---
RE: vanco Trough on 11/20 came back at 17.7; decreased dose to 1000mg Q12H with predicted trough of 13.7 mg/L, AUC of 429 mg/L. Next level to be drawn 11/21 @2100
--- NOTE | 2023-11-21 10:58 | MHC.CM.PN ---
PATIENT MEDICALLY CLEARED FOR DC HOME W/ RESUMPTION OF [facility] SERVICES. TO TRANSPORT HOME ~2PM.
[2023-11-21 11:38] LABS: Glucose, Whole Blood 202 mg/dL (60-115)
[2023-11-21] MEDS: vancomycin HCL 1,000 MG in 0.9 % Sodium Chloride 250 ML 270 MG IV (11:44)
== END 2023-11-21 13:16 | disposition home health service (06) | DRG 565 ==
LOC: HO.ED 21:56 → HO.EDOVER 11-18 01:00 → HO.S3 11-18 03:51
PROVIDERS: Emergency Medicine; Nurse Practitioner Family; Admitting Provider Internal Medicine; Emergency Provider Internal Medicine; PCP Internal Medicine; Visit Provider Student in an Organized Health Care Education/Training Program
DX: T87.44 Infection of amputation stump, left lower extremity (principal); I48.19 Other persistent atrial fibrillation; L03.116 Cellulitis of left lower limb; I25.10 Atherosclerotic heart disease of native coronary artery without angina pectoris; E11.51 Type 2 diabetes mellitus with diabetic peripheral angiopathy without gangrene; E11.42 Type 2 diabetes mellitus with diabetic polyneuropathy; Z89.511 Acquired absence of right leg below knee; E11.65 Type 2 diabetes mellitus with hyperglycemia; I10 Essential (primary) hypertension; E78.5 Hyperlipidemia, unspecified; Z79.4 Long term (current) use of insulin; Z79.02 Long term (current) use of antithrombotics/antiplatelets; Z79.82 Long term (current) use of aspirin; Z79.899 Other long term (current) drug therapy
CPT/HCPCS: 36415; 73620; 80048; 80053; 80202; 82565; 82947; 83605; 85025; 85027; 85652; 86140; 87040; 99285; J1170; J1200; J2543; J3370; J3371

== ENCOUNTER → 2023-11-18 00:46 | Outpatient (BNV) | payer MEDICARE, SELFPAY | PROVIDERS: Admitting Provider Internal Medicine; Emergency Provider Internal Medicine; PCP Internal Medicine; Visit Provider Surgery Vascular Surgery | DX: I73.9 Peripheral vascular disease, unspecified (principal); T87.44 Infection of amputation stump, left lower extremity; Z89.412 Acquired absence of left great toe; Z89.422 Acquired absence of other left toe(s) | CPT/HCPCS: 99024 ==

== ENCOUNTER → 2023-11-18 00:46 | Outpatient (BNV) | payer MEDICARE, SELFPAY | PROVIDERS: Admitting Provider Internal Medicine; Emergency Provider Internal Medicine; PCP Internal Medicine; Visit Provider Internal Medicine | DX: L03.116 Cellulitis of left lower limb (principal); F33.1 Major depressive disorder, recurrent, moderate; E78.5 Hyperlipidemia, unspecified; I73.9 Peripheral vascular disease, unspecified; I48.91 Unspecified atrial fibrillation | CPT/HCPCS: 99223; 99233; 99239; 99499 ==

== ENCOUNTER 2023-11-27 09:49 | Inpatient (IN) | payer MEDICARE, SELFPAY ==
--- NOTE | 2023-11-23 13:40 | HO.ANESPROP2 ---
Documented by User: Miracle Li NP 11/24/23 10:38 HPI - Anesthesia Eval Consult details Narrative: 58yo M for Left Toes Amputation Transmetarsal s/p toe amp 10/24/23 with GA-LMA 5 [facility] [place]/17-11/21/23: admitted for Left foot cellulitis and Amputation sites (1st and 5th toe) infection. as an XR Foot this time and Left foot MRI from last admission showing no evidence of OM. Blood cultures remained negative as he was treated with IV Vancomycin as site improving. 08/2023 [facility] [place] with afib vs atrial tach, NSTEMI. Tx'd to [facility] for cath. s/p CABG x 3 on 09/28/23. Anesthesia Pre-Procedure Meds Is the patient on any of the following meds?: Any other SGL-1 drugs or drugs that delay gastric emptying (Farxiga) PMFSH Active Problems Active Problems: All Active Problems (Updated 11/18/23 @ 07:18 by Radha Ariza MD) Cellulitis of left foot (Acute) Hyperglycemia due to diabetes mellitus (Acute) Post op infection (Acute) Dry gangrene (Acute) Cellulitis of foot, left (Acute) Peripheral arterial disease (Acute) Acute pain of left foot (Acute) Atrial arrhythmia (Acute) Acute non-ST elevation myocardial infarction (NSTEMI) (Acute) Atrial fibrillation (Acute) 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 (Acute) Diabetes mellitus with retinopathy, with long-term current use of insulin (Acute) PAD (peripheral artery disease) (Acute) Diabetic foot infection (Acute) Heartburn symptom (Acute) Major depression, recurrent (Acute) Erectile dysfunction (Acute) Dyslipidemia (Acute) Essential hypertension (Acute) Diabetes mellitus, with long-term current use of insulin (Acute) Ulcer of left heel (Acute) Diabetic foot ulcer (Acute) Intractable left heel pain (Acute) Hx of heart artery stent (Acute) Arthritis (Acute) Past Medical History Medical History 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 Diabetes mellitus with retinopathy, with long-term current use of insulin PAD (peripheral artery disease) Heartburn symptom Amputation stump infection Major depression, recurrent Erectile dysfunction Dyslipidemia Diabetes mellitus, with long-term current use of insulin Amputation stump complication Intractable left heel pain Chronic 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 Type 2 diabetes mellitus with diabetic polyneuropathy Type 2 diabetes mellitus with hyperglycemia Hyperlipidemia Chronic pancreatitis Essential hypertension Diabetes mellitus with hyperglycemia, with long-term current use of insulin Neuropathy Kidney calculus Failure of outpatient treatment Increased BMI Alcohol abuse CAD (coronary artery disease) Arthritis Family History Family History Mother NM (myocardial infarction), Onset Age: 64 Diabetes mellitus HTN (hypertension) Maternal Grandmother Diabetes mellitus Family history of problems with anesthesia: No Surgical History Surgical History S/P angiogram of extremity (06/28/23) History of right below knee amputation Status post below-knee amputation S/P debridement Hx of lithotripsy Status post laparoscopic cholecystectomy Hx of heart artery stent History of Problems with Anesthesia: No Social History Social History Household Members: Family Household Members Other:: and daughter Housing: Apartment Do you presently have visiting nurse or other home services: Yes (wound care and PT) Alcohol intake: former Comment: pt ambulates with crutches. Patient Tobacco Use Status: Former Tobacco user Quit Date: Jun 2023 Tobacco use type: Cigarette Cigarette Packs Per Day: 0.01 Cigarettes Per Day: 3 Years Smoked: 25+ e-Cigarette/Vaping Use: Never Used Second Hand Smoke Exposure: No Use of substances other than those prescribed or required for medical reasons: No Substance Use Type: Marijuana Are you DNR?: No Advance Directives: No Advance Directives Information Provided: Yes Advance Directives Date on File: 04/17/21 service: No Current occupational status: unemployed and disabled Cognitive needs: No Hearing needs: No Vision needs: Yes Meds Allergies Allergy/AdvReac Type Severity Reaction Status Date / Time zosyn AdvReac Mild Itching Uncoded 11/18/23 15:27 Home Medications Medication Instructions Recorded Confirmed Last Taken Type blood sugar diagnostic (FreeStyle 12/01/22 06/28/23 Unknown History Lite Strips) blood-glucose meter (FreeStyle 12/01/22 06/28/23 Unknown History Lite Meter kit) atorvastatin 80 mg tablet 80 mg PO BEDTIME 06/20/23 11/18/23 11/17/23 History famotidine 40 mg tablet 40 mg PO DAILY heartburn 09/11/23 11/18/23 11/17/23 History melatonin 5 mg tablet 5 mg PO BEDTIME PRN Sleep 09/11/23 11/18/23 11/01/23 History acetaminophen 500 mg tablet 1,000 mg PO Q6H PRN Pain 10/18/23 11/18/23 11/01/23 History (Acetaminophen Extra Strength) amiodarone 200 mg tablet 200 mg PO BID 10/18/23 11/18/23 11/17/23 History insulin glargine 100 unit/mL (3 34 unit subcut BEDTIME 10/18/23 11/18/23 11/17/23 History mL) subcutaneous pen (Lantus Solostar U-100 Insulin) lidocaine 5 % topical patch 1 patch topical DAILY PRN moderate 10/18/23 11/18/23 10/18/23 History pain pantoprazole 40 mg tablet,delayed 40 mg PO DAILY@0630 10/18/23 11/18/23 11/17/23 History release clopidogrel 75 mg tablet 75 mg PO DAILY 11/18/23 11/18/23 11/23/23 History dapagliflozin propanediol 10 mg 10 mg PO DAILY 11/18/23 11/18/23 11/24/23 History tablet (Farxiga) losartan 25 mg tablet 25 mg PO DAILY 11/18/23 11/18/23 11/17/23 History sertraline 50 mg tablet 75 mg PO BEDTIME 11/18/23 11/18/23 11/17/23 History spironolactone 25 mg tablet 25 mg PO DAILY 11/18/23 11/18/23 11/17/23 History tramadol 50 mg tablet 50 mg PO Q6H PRN pain 11/18/23 11/18/23 Unknown History Exam Pertinent Lab Results Pertinent Lab Results: Laboratory Tests 11/19/23 11/21/23 11/21/23 05:44 10:04 10:04 WBC 8.5 Hgb 10.5 L Hct 34.7 L Plt Count 289 Sodium 138 Potassium 4.3 Chloride 100 Carbon Dioxide BUN 21 H Creatinine 11/21/23 11/21/23 10:04 10:05 WBC Hgb Hct Plt Count Sodium Potassium Chloride Carbon Dioxide 29 BUN Creatinine 0.94 Narrative Narrative: EKG 10/2023 Vent. Rate : 075 BPM Atrial Rate : 075 BPM P-R Int : 194 ms QRS Dur : 152 ms QT Int : 472 ms P-R-T Axes : 054 -59 096 degrees QTc Int : 527 ms Normal sinus rhythm Right bundle branch block Left anterior fascicular block Bifascicular block Left ventricular hypertrophy with repolarization abnormality ( R in aVL ) Possible Lateral infarct , age undetermined Abnormal ECG When compared with ECG of 11-SEP-2023 16:19, T wave inversion now evident in Anterior leads QT has lengthened ECHO 08/2023 Conclusions: - The left ventricular systolic function is mildly decreased. The calculated ejection fraction is 48% by biplane method. - The inferolateral wall and mid inferior segment are hypokinetic. - The basal inferior segment is akinetic. - No obvious valvular pathology seen on this study. Assessment and Plan Assessment Anesthesia Assessment: Chart Reviewed Final Anesthetic Review Family History of Problems with Anesthesia: No History of Problems with Anesthesia: No Documented by User: Luis Angel Flores MD 11/27/23 09:09 HPI - Anesthesia Eval Anesthesia Pre-Procedure Meds If Yes to any meds - educate patient: Pt education - increased risk of aspiration PMFSH Past Medical History Medical History 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 Diabetes mellitus with retinopathy, with long-term current use of insulin PAD (peripheral artery disease) Heartburn symptom Amputation stump infection Major depression, recurrent Erectile dysfunction Dyslipidemia Diabetes mellitus, with long-term current use of insulin Amputation stump complication Intractable left heel pain Chronic 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 Type 2 diabetes mellitus with diabetic polyneuropathy Type 2 diabetes mellitus with hyperglycemia Hyperlipidemia Chronic pancreatitis Essential hypertension Diabetes mellitus with hyperglycemia, with long-term current use of insulin Neuropathy Kidney calculus Failure of outpatient treatment Increased BMI Alcohol abuse CAD (coronary artery disease) Arthritis Family History Family History Mother NM (myocardial infarction), Onset Age: 64 Diabetes mellitus HTN (hypertension) Maternal Grandmother Diabetes mellitus Surgical History Surgical History S/P angiogram of extremity (06/28/23) History of right below knee amputation Status post below-knee amputation S/P debridement Hx of lithotripsy Status post laparoscopic cholecystectomy Hx of heart artery stent Social History Social History Household Members: Family Household Members Other:: and daughter Housing: Apartment Do you presently have visiting nurse or other home services: Yes (wound care and PT) Alcohol intake: former Comment: pt ambulates with crutches. Patient Tobacco Use Status: Former Tobacco user Quit Date: Jun 2023 Tobacco use type: Cigarette Cigarette Packs Per Day: 0.01 Cigarettes Per Day: 3 Years Smoked: 25+ e-Cigarette/Vaping Use: Never Used Second Hand Smoke Exposure: No Use of substances other than those prescribed or required for medical reasons: No Substance Use Type: Marijuana Are you DNR?: No Advance Directives: No Advance Directives Information Provided: Yes Advance Directives Date on File: 04/17/21 service: No Current occupational status: unemployed and disabled Cognitive needs: No Hearing needs: No Vision needs: Yes Meds Allergies Allergy/AdvReac Type Severity Reaction Status Date / Time zosyn AdvReac Mild Itching Uncoded 11/18/23 15:27 Home Medications Medication Instructions Recorded Confirmed Last Taken Type blood sugar diagnostic (FreeStyle 12/01/22 06/28/23 Unknown History Lite Strips) blood-glucose meter (FreeStyle 12/01/22 06/28/23 Unknown History Lite Meter kit) atorvastatin 80 mg tablet 80 mg PO BEDTIME 06/20/23 11/18/23 11/17/23 History famotidine 40 mg tablet 40 mg PO DAILY heartburn 09/11/23 11/18/23 11/17/23 History melatonin 5 mg tablet 5 mg PO BEDTIME PRN Sleep 09/11/23 11/18/23 11/01/23 History acetaminophen 500 mg tablet 1,000 mg PO Q6H PRN Pain 10/18/23 11/18/23 11/01/23 History (Acetaminophen Extra Strength) amiodarone 200 mg tablet 200 mg PO BID 10/18/23 11/18/23 11/17/23 History insulin glargine 100 unit/mL (3 34 unit subcut BEDTIME 10/18/23 11/18/23 11/17/23 History mL) subcutaneous pen (Lantus Solostar U-100 Insulin) lidocaine 5 % topical patch 1 patch topical DAILY PRN moderate 10/18/23 11/18/23 10/18/23 History pain pantoprazole 40 mg tablet,delayed 40 mg PO DAILY@0630 10/18/23 11/18/23 11/17/23 History release clopidogrel 75 mg tablet 75 mg PO DAILY 11/18/23 11/18/23 11/23/23 History dapagliflozin propanediol 10 mg 10 mg PO DAILY 11/18/23 11/18/23 11/24/23 History tablet (Farxiga) losartan 25 mg tablet 25 mg PO DAILY 11/18/23 11/18/23 11/17/23 History sertraline 50 mg tablet 75 mg PO BEDTIME 11/18/23 11/18/23 11/17/23 History spironolactone 25 mg tablet 25 mg PO DAILY 11/18/23 11/18/23 11/17/23 History tramadol 50 mg tablet 50 mg PO Q6H PRN pain 11/18/23 11/18/23 Unknown History Exam Airway Mallampati Class: III TM Dist: <=3cm Neck ROM: Full Partial: Upper and Lower Loose/Missing/Broken Teeth: No Heart: rrr Lungs: cta Assessment and Plan Final Anesthetic Review NPO: Yes ASA Class: III Final Preanesthetic Review: No Changes in Pt Med Stat, Meds/Allgs Chart Reviewed, Consent Obtained/Reviewed and Anes Risks/Benef Reviewed Patient Risk: Intermediate Procedure Risk: Low Anesthetic Plan Anesthetic Plan: MAC: Disposition: Standard PACU
[2023-11-27] VITALS (20 sets, daily range): BP systolic 114–196; BP diastolic 57–95; PULSE 66–81; RESP 12–21; TEMP 36.1–36.7; O2SAT 96–100; BMI 33.5; BMI 29.6
[2023-11-27 08:43] LABS: Glucose, Whole Blood 201 mg/dL (60-115)
[2023-11-27] MEDS: Lactated Ringers 1,000 ML 50 ML IVCONT (09:09)
--- NOTE | 2023-11-27 09:25 | MHC.SHP ---
Pre-Procedural Eval Section A - 24 Hr Update-Section A only Date of Service: 11/27/23 The patient is an INPATIENT: No Changes since office visit: Yes Patient answered all questions The patient has been examined within 24 hours of the surgical procedure. The History & Physical has been completed within 30 days and I have reviewed it.: Yes Section B - Complete if H&P > 30 days Chief Complaint: Osteomyelitis, unspecified Allergies: Allergies Allergy/AdvReac Type Severity Reaction Status Date / Time zosyn AdvReac Mild Itching Uncoded 11/18/23 15:27 Plan I have reviewed the history and physical and performed a pertinent physical examination on my patient. No changes have occurred unless specified. Time Spent With Patient Time: Total time managing care of this patient today ____ minutes.
--- NOTE | 2023-11-27 10:03 | PHA.MEDREC ---
Pharmacy Consult ? Medication Reconciliation Pharmacy has completed the medication reconciliation. Patient recently discharged 11/20; used discharge summary
[2023-11-27] MEDS: fentaNYL citrate/PF 100 MCG/2 ML VIAL 25 MCG IVPUSH ×4 (11:10→11:35)
[2023-11-27] MEDS: oxyCODONE HCl Immed Release 5 MG TABLET PO ×3 (11:11→21:32)
--- NOTE | 2023-11-27 11:11 | W.PM.OPN ---
Operative Note Operative Note Date of Service: 11/27/23 Narrative: Operative note by [facility] Preoperative diagnosis: Nonhealing left foot diabetic ulcers Postoperative diagnosis: Same Procedure: Left transmetatarsal amputation Surgeon:Berto Sheppard M.D. [employer] Letterer: Dez Anesthesia: Local with sedation performed by anesthesia Specimens: None Drains: None Estimated blood loss: Minimal Indications: Very pleasant 58-year-old gentleman presents for transmetatarsal amputation. He had prior resection of the great and 5th toe. They have been nonhealing. He has been in a fair amount pain. He now presents for transmetatarsal amputation. The patient has signed the informed consent after reviewing risks, complications, benefits, and alternatives previously discussed with the patient. The patient was given the opportunity to ask any additional questions or voice any concerns. All questions were answered to the patient's satisfaction. Procedure in detail: Patient was brought to the operating room prior to which a time-out was called for patient identification site verification. Left foot was prepped and draped in standard surgical fashion. Curvilinear incision was carried out over the dorsum of the foot. We then transected across. Using 15 blade to get across the skin and soft tissue down through the muscle and tendon. Once through the metatarsal bony heads we used a power saw to transect all the metatarsals. Once totally across we then created a posterior flap using the 15 blade. And using electrocautery raised the bones off that area. We then remove that entire area and remove the specimen. Once this was all accomplished we filed down the bony edges we irrigated that entire amp thoroughly. We removed the soft tissues. Once this was all accomplished we reanastomosed the posterior flap to the dorsum of the foot using a 2-0 Polysorb. This was in an interrupted fashion. Once we did that we did a 3-0 poly Sorb more superficially feet. Finally 2-0 nylon in a mattress fashion. And skin clips was used for skin closure. Xeroform and a sterile dressing were applied. At the end of the case sponge instrument counts were correct. Patient tolerated the procedure well. Returned to recovery with stable vitals. This note is constructed using voice recognition software. While every effort has been made to ensure accuracy, dry food products mixer errors may have been included. Thank you for allowing me to participate in the care of your patient. Yours sincerely, Berto Sheppard MD, FACS, R.P.V.I.
[2023-11-27] MEDS: 0.9 % Sodium Chloride 1,000 ML 80 ML IVCONT (13:24)
[2023-11-27] MEDS: Morphine Sulfate 2 MG/ML CARTRIDGE IVPUSH (13:24)
--- NOTE | 2023-11-27 13:55 | HO.PM.IMCN ---
History of Present Illness Data of Consult Service Date: 11/27/23 Primary Care Provider: Shanta Haney MD HPI 58-year-old man with a history of diabetes mellitus type 2, peripheral arterial disease, right BKA, three-vessel CABG, multiple lower extremity digit amputations, hyperlipidemia, hypertension, GERD admitted by vascular surgery and is status post left transmetatarsal amputation. He has been able to eat and drink without any nausea or vomiting. Patient is hemodynamically stable, elevated blood pressure noted. Reports moderate amount of pain to left lower extremity. Review of Systems Review of Systems: Denies any recent fever chills or decrease in appetite respiratory denies any shortness of breath or cough cardiovascular no chest pain gastrointestinal denies any dysphagia abdominal pain nausea vomiting or diarrhea genitourinary denies any dysuria frequency or hematuria musculoskeletal denies any joint pain or swelling neuropsych denies any weakness or seizures all other systems reviewed are negative [facility] Medical History (Updated 11/27/23 @ 13:57 by Stacy Dukes NP) Dry gangrene Peripheral arterial disease Atrial fibrillation Diabetic foot infection 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 Diabetes mellitus with retinopathy, with long-term current use of insulin PAD (peripheral artery disease) Heartburn symptom Amputation stump infection Major depression, recurrent Erectile dysfunction Dyslipidemia Amputation stump complication Intractable left heel pain Chronic 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 Type 2 diabetes mellitus with hyperglycemia Hyperlipidemia Chronic pancreatitis Essential hypertension Neuropathy Kidney calculus Alcohol abuse CAD (coronary artery disease) Arthritis Family History Mother [place] (myocardial infarction), Onset Age: 64 Diabetes mellitus HTN (hypertension) Maternal Grandmother Diabetes mellitus Surgical History (Updated 11/24/23 @ 00:03 by Lavell Barnett) S/P angiogram of extremity (06/28/23) History of right below knee amputation Status post below-knee amputation S/P debridement Hx of lithotripsy Status post laparoscopic cholecystectomy Hx of heart artery stent Social History Household Members: Spouse and Children Household Members Other:: and daughter Housing: Apartment Do you presently have visiting nurse or other home services: Yes Alcohol intake: former Comment: pt ambulates with crutches. Patient Tobacco Use Status: Former Tobacco user Quit Date: Jun 2023 Tobacco use type: Cigarette Cigarette Packs Per Day: 0.01 Cigarettes Per Day: 3 Years Smoked: 25+ Smoked in Last 30 Days: No e-Cigarette/Vaping Use: Never Used Patient Interested in Nicotine Replacement: No Patient Given Instructions on How to Stop Smoking: No Second Hand Smoke Exposure: No Use of substances other than those prescribed or required for medical reasons: No Substance Use Type: Marijuana Currently Displaying Signs/Symptoms of Drug Intoxication Withdrawal: No Any prior treatment program specific to substance use: No Have you been hit, kicked, punched, or otherwise hurt by someone within the past year? If so, by whom?: No Do you feel safe in your current relationship?: Yes Is there a partner from a previous relationship who is making you feel unsafe now?: No Are you made to feel afraid or neglected: No Are you DNR?: No Advance Directives: No Advance Directives Information Provided: Yes Advance Directives on File: No Advance Directives Date on File: 04/17/21 Do you have thoughts of harming others: None Do you have a plan to hurt others: No Plan Recently lost weight without trying: No Eating poorly because of decreased appetite: No Nutrition Risks: No Nutritional Risk Poor oral hygiene: No service: No Current occupational status: unemployed and disabled Cognitive needs: No Hearing needs: No Vision needs: Yes Meds Allergies Allergy/AdvReac Type Severity Reaction Status Date / Time zosyn AdvReac Mild Itching Uncoded 11/18/23 15:27 Active Medications: Current Medications Acetaminophen (Acetaminophen 325 Mg Tablet) 650 mg PO Q6H PRN PRN Reason: Pain, Mild (Pain Scale 1-3) Amiodarone HCl (Amiodarone Hcl 200 Mg Tablet) 200 mg PO BID [facility] Aspirin (Aspirin 81 Mg Tab.Chew) 81 mg PO DAILY [facility] Atorvastatin Calcium (Atorvastatin Calcium 80 Mg Tablet) 80 mg PO BEDTIME [facility] Clopidogrel Bisulfate (Clopidogrel Bisulfate 75 Mg Tablet) 75 mg PO DAILY [facility] Empagliflozin (Empagliflozin 10 Mg Tablet) 10 mg PO DAILY [facility] Famotidine (Famotidine 20 Mg Tablet) 40 mg PO DAILY [facility] Gabapentin (Gabapentin 600 Mg Tablet) 600 mg PO TID [facility] Sodium Chloride (Ns) 1,000 mls @ 80 mls/hr IVCONT .[id number] [facility] Last Admin: 11/27/23 13:24 Dose: 80 mls/hr Cefazolin Sodium/Dextrose (Ancef) 2 gm in 50 mls @ 100 mls/hr IV POSTOP ONE Stop: 11/27/23 16:29 Insulin Glargine (Insulin Glargine,Hum.Rec.Anlog 100 Unit/Ml 10 Ml Vial) 34 unit SUBCUT BEDTIME [facility]LLY Insulin Human Lispro (Insulin Lispro 100 Unit/Ml 3 Ml Vial) 0 unit SUBCUT QIDACHS SHELLY; Protocol Lidocaine (Lidocaine 4 % Patch Adh..Patch) 1 patch TRANSDERMA DAILY PRN PRN Reason: moderate pain Losartan Potassium (Losartan Potassium 25 Mg Tablet) 25 mg PO DAILY [facility]; Protocol Melatonin (Melatonin 3 Mg Tablet) 6 mg PO BEDTIME PRN PRN Reason: Sleep Metoprolol Succinate (Metoprolol Succinate Er 50 Mg Tab.Er.24h) 50 mg PO DAILY [facility]; Protocol Morphine Sulfate (Morphine Sulfate 2 Mg/Ml Cartridge) 2 mg IVPUSH Q4H PRN; Protocol PRN Reason: Pain, Severe (Pain Scale 7-10) Last Admin: 11/27/23 13:24 Dose: 2 mg Oxycodone HCl (Oxycodone Hcl Immed Release 5 Mg Tablet) 5 mg PO Q4H PRN PRN Reason: Pain, Moderate(Pain Scale 4-6) Last Admin: 11/27/23 11:11 Dose: 5 mg Sertraline HCl (Sertraline Hcl 25 Mg Tablet) 75 mg PO BEDTIME [facility] Sodium Chloride (0.9 % Sodium Chloride Flush 3 Ml Syringe) 3 ml IVFLUSH QSHIFT [facility] Spironolactone (Spironolactone 25 Mg Tablet) 25 mg PO DAILY SHE[facility]; Protocol Home Medications Medication Instructions Recorded Confirmed Last Taken Type blood sugar diagnostic (FreeStyle 12/01/22 06/28/23 Unknown History Lite Strips) blood-glucose meter (FreeStyle 12/01/22 06/28/23 Unknown History Lite Meter kit) atorvastatin 80 mg tablet 80 mg PO BEDTIME 06/20/23 11/27/23 11/17/23 History famotidine 40 mg tablet 40 mg PO DAILY heartburn 09/11/23 11/27/23 11/17/23 History melatonin 5 mg tablet 5 mg PO BEDTIME PRN Sleep 09/11/23 11/27/23 11/01/23 History acetaminophen 500 mg tablet 1,000 mg PO Q6H PRN Pain 10/18/23 11/27/23 11/01/23 History (Acetaminophen Extra Strength) amiodarone 200 mg tablet 200 mg PO BID 10/18/23 11/27/23 11/17/23 History insulin glargine 100 unit/mL (3 34 unit subcut BEDTIME 10/18/23 11/27/23 11/17/23 History mL) subcutaneous pen (Lantus Solostar U-100 Insulin) lidocaine 5 % topical patch 1 patch topical DAILY PRN moderate 10/18/23 11/27/23 10/18/23 History pain pantoprazole 40 mg tablet,delayed 40 mg PO DAILY@0630 10/18/23 11/27/23 11/17/23 History release clopidogrel 75 mg tablet 75 mg PO DAILY 11/18/23 11/27/23 11/23/23 History dapagliflozin propanediol 10 mg 10 mg PO DAILY 11/18/23 11/27/23 11/24/23 History tablet (Farxiga) losartan 25 mg tablet 25 mg PO DAILY 11/18/23 11/27/23 11/17/23 History sertraline 50 mg tablet 75 mg PO BEDTIME 11/18/23 11/27/23 11/17/23 History spironolactone 25 mg tablet 25 mg PO DAILY 11/18/23 11/27/23 11/17/23 History tramadol 50 mg tablet 50 mg PO Q6H PRN pain 11/18/23 11/27/23 Unknown History Physical Exam Vital Signs and Narrative: Vital Signs: Last Vital Signs Temp 97.1 F 11/27/23 13:15 Pulse 68 11/27/23 13:15 Resp 16 11/27/23 13:15 BP 196/91 H 11/27/23 13:15 Pulse Ox 100 11/27/23 13:15 O2 Del Method Room Air 11/27/23 13:15 O2 Flow Rate 2 11/27/23 12:40 BMI result Body Mass Index 29.6 Appearing in no acute distress head is normocephalic atraumatic eyes pupils are PERRLA sclera is anicteric mouth throat mucous membranes are intact and moist neck is supple no lymphadenopathy, no JVD noted lung sounds are clear to auscultation heart regular rate rhythm, clear S1, S2 positive bowel sounds, abdomen is soft, nontender neuro patient is alert x3, no focal deficits Results Labs Labs: Laboratory Results - last 24 hr 11/27/23 08:39 POC Glucose 201 H Assessment and Plan (1) Diabetes mellitus with retinopathy, with long-term current use of insulin: Status: Acute Plan 58-year-old man status post left transmetatarsal amputation secondary to nonhealing left foot diabetic ulcer Left transmetatarsal amputation Secondary to nonhealing left foot diabetic ulcer Management as per vascular surgery team Pain management Hypertension Elevated blood pressure reading Continue losartan, metoprolol Hydralazine for systolic blood pressure greater than 190 Coronary artery disease/PVD Aspirin, statin, Plavix History of atrial fibrillation started after 3vCABG 09/2023 at [facility] [place] continue Amiodarone for now, can follow up with cardiology o/p to determine whether patient should continue Diabetes mellitus type 2 Sliding scale, ADA diet, Lantus Diabetic peripheral neuropathy Continue gabapentin Mental health Continue sertraline and tramadol DVT prophylaxis Full code Medical consultation complete. Will follow along.
[2023-11-27 14:22] LABS: Glucose, Whole Blood 205 mg/dL (60-115)
[2023-11-27] MEDS: Insulin Lispro 100 UNIT/ML 3 ML VIAL SUBCUT ×3 (14:51→20:27)
[2023-11-27] MEDS: Gabapentin 600 MG TABLET PO ×2 (14:51→20:27)
[2023-11-27] MEDS: 0.9 % Sodium Chloride Flush 3 ML SYRINGE IVFLUSH ×2 (14:54→20:26)
[2023-11-27] MEDS: HYDROmorphone HCl 0.5 MG/0.5 ML SYRINGE IVPUSH ×2 (15:47→20:25)
[2023-11-27] MEDS: hydrALAZINE HCl 20 MG/ML VIAL 10 MG IVPUSH (15:50)
[2023-11-27 16:16] LABS: Glucose, Whole Blood 208 mg/dL (60-115)
[2023-11-27] MEDS: Acetaminophen 325 MG TABLET 650 MG PO ×2 (16:52→23:15)
[2023-11-27] MEDS: ceFAZolin Sodium/Dextrose,Iso 2 GM/50 ML PIGGYBACK IV (16:53)
[2023-11-27] MEDS: HYDROmorphone HCl 1 MG/ML SYRINGE IVPUSH (18:29)
[2023-11-27 20:09] LABS: Glucose, Whole Blood 208 mg/dL (60-115)
[2023-11-27] MEDS: Melatonin 3 MG TABLET 6 MG PO (20:27)
[2023-11-27] MEDS: Insulin Glargine,Hum.rec.anlog 100 UNIT/ML 10 ML VIAL 34 UNIT SUBCUT (20:27)
[2023-11-27] MEDS: Amiodarone HCL 200 MG TABLET PO (20:27)
[2023-11-27] MEDS: Sertraline HCL 25 MG TABLET 75 MG PO (20:27)
[2023-11-27] MEDS: Atorvastatin Calcium 80 MG TABLET PO (20:27)
[2023-11-28] VITALS (7 sets, daily range): BP systolic 149–166; BP diastolic 70–81; PULSE 76–81; RESP 16–20; TEMP 36.3–37; O2SAT 95–97
[2023-11-28] MEDS: HYDROmorphone HCl 0.5 MG/0.5 ML SYRINGE IVPUSH ×2 (00:23→04:28)
[2023-11-28] MEDS: oxyCODONE HCl Immed Release 5 MG TABLET PO ×2 (02:59→07:47)
[2023-11-28] MEDS: 0.9 % Sodium Chloride 1,000 ML 80 ML IVCONT (02:59)
[2023-11-28] MEDS: Acetaminophen 325 MG TABLET 650 MG PO ×2 (06:15→20:17)
[2023-11-28 07:21] LABS: Glucose, Whole Blood 143 mg/dL (60-115)
[2023-11-28] MEDS: Aspirin 81 MG TAB.CHEW PO (07:47)
[2023-11-28] MEDS: Empagliflozin 10 MG TABLET PO (07:48)
[2023-11-28] MEDS: Spironolactone 25 MG TABLET PO (07:48)
[2023-11-28] MEDS: Clopidogrel Bisulfate 75 MG TABLET PO (07:48)
[2023-11-28] MEDS: Famotidine 20 MG TABLET 40 MG PO (07:48)
[2023-11-28] MEDS: Gabapentin 600 MG TABLET PO ×3 (07:48→20:15)
[2023-11-28] MEDS: Losartan Potassium 25 MG TABLET PO (07:49)
[2023-11-28] MEDS: Metoprolol Succinate ER 50 MG TAB.ER.24H PO (07:49)
[2023-11-28] MEDS: Amiodarone HCL 200 MG TABLET PO ×2 (07:49→20:16)
--- NOTE | 2023-11-28 08:16 | P.PNIM_ITS ---
Subjective Subjective Date of Service: 11/28/23 Review of Systems Follow-up consultation Status post left foot TMA Has been having significant pain Physical Exam Vital Signs: Vital Signs: Last Vital Signs Temp 98.1 F 11/28/23 07:11 Pulse 81 11/28/23 07:11 Resp 16 11/28/23 07:11 BP 166/77 H 11/28/23 07:11 Pulse Ox 97 11/28/23 07:11 O2 Del Method Room Air 11/28/23 07:11 O2 Flow Rate 2 11/27/23 12:40 BMI result Body Mass Index 29.6 Appearing in no acute distress lung sounds are clear to auscultation heart regular rate rhythm, clear S1, S2 positive bowel sounds, abdomen is soft, nontender neuro patient is alert x3, no focal deficits Surgical dressing to left foot Objective Data Active Medications Acetaminophen (Acetaminophen 325 Mg Tablet) 650 mg PO Q6H PRN PRN Reason: Pain, Mild (Pain Scale 1-3) Last Admin: 11/28/23 06:15 Dose: 650 mg Documented By: LUZ ELENA Amiodarone HCl (Amiodarone Hcl 200 Mg Tablet) 200 mg PO BID [facility] Last Admin: 11/28/23 07:49 Dose: 200 mg Documented By: RAISA Aspirin (Aspirin 81 Mg Tab.Chew) 81 mg PO DAILY [facility] Last Admin: 11/28/23 07:47 Dose: 81 mg Documented By: RAISA Atorvastatin Calcium (Atorvastatin Calcium 80 Mg Tablet) 80 mg PO BEDTIME [facility] Last Admin: 11/27/23 20:27 Dose: 80 mg Documented By: LUZ ELENA Clopidogrel Bisulfate (Clopidogrel Bisulfate 75 Mg Tablet) 75 mg PO DAILY [facility] Last Admin: 11/28/23 07:48 Dose: 75 mg Documented By: RAISA Empagliflozin (Empagliflozin 10 Mg Tablet) 10 mg PO DAILY [facility] Last Admin: 11/28/23 07:48 Dose: 10 mg Documented By: RAISA Famotidine (Famotidine 20 Mg Tablet) 40 mg PO DAILY [facility] Last Admin: 11/28/23 07:48 Dose: 40 mg Documented By: RAISA Gabapentin (Gabapentin 600 Mg Tablet) 600 mg PO TID [facility] Last Admin: 11/28/23 07:48 Dose: 600 mg Documented By: RAISA Hydralazine HCl (Hydralazine Hcl 20 Mg/Ml Vial) 10 mg IVPUSH Q6H PRN; Protocol PRN Reason: SBP>190 Last Admin: 11/27/23 15:50 Dose: 10 mg Documented By: RAISA Hydromorphone HCl (Hydromorphone Hcl 0.5 Mg/0.5 Ml Syringe) 1 mg IVPUSH Q4H PRN; Protocol PRN Reason: Pain, Moderate(Pain Scale 4-6) Sodium Chloride (Ns) 1,000 mls @ 80 mls/hr IVCONT .[id number] [facility] Last Admin: 11/28/23 02:59 Dose: 80 mls/hr Documented By: LUZ ELENA Insulin Glargine (Insulin Glargine,Hum.Rec.Anlog 100 Unit/Ml 10 Ml Vial) 34 u nit SUBCUT BEDTIME [facility] Last Admin: 11/27/23 20:27 Dose: 34 unit Documented By: LUZ ELENA Insulin Human Lispro (Insulin Lispro 100 Unit/Ml 3 Ml Vial) 0 unit SUBCUT QIDACHS [facility]; Protocol Last Admin: 11/28/23 07:52 Dose: Not Given Documented By: RAISA Non-Admin Reason: No Insulin Coverage Lidocaine (Lidocaine 4 % Patch Adh..Patch) 1 patch TRANSDERMA DAILY PRN PRN Reason: moderate pain Losartan Potassium (Losartan Potassium 25 Mg Tablet) 25 mg PO DAILY [facility]; Protocol Last Admin: 11/28/23 07:49 Dose: 25 mg Documented By: RAISA Melatonin (Melatonin 3 Mg Tablet) 6 mg PO BEDTIME PRN PRN Reason: Sleep Last Admin: 11/27/23 20:27 Dose: 6 mg Documented By: LUZ ELENA Metoprolol Succinate (Metoprolol Succinate Er 50 Mg Tab.Er.24h) 50 mg PO DAILY [facility]; Protocol Last Admin: 11/28/23 07:49 Dose: 50 mg Documented By: RAISA Oxycodone HCl (Oxycodone Hcl Immed Release 5 Mg Tablet) 10 mg PO Q4H PRN PRN Reason: Pain, Moderate(Pain Scale 4-6) Sertraline HCl (Sertraline Hcl 25 Mg Tablet) 75 mg PO BEDTIME [facility] Last Admin: 11/27/23 20:27 Dose: 75 mg Documented By: LUZ ELENA Sodium Chloride (0.9 % Sodium Chloride Flush 3 Ml Syringe) 3 ml IVFLUSH QSHIFT [facility] Last Admin: 11/28/23 07:52 Dose: Not Given Documented By: RAISA Non-Admin Reason: IV Running Spironolactone (Spironolactone 25 Mg Tablet) 25 mg PO DAILY [facility]; Protocol Last Admin: 11/28/23 07:48 Dose: 25 mg Documented By: RAISA Labs Labs: Laboratory Results - last 24 hr 11/27/23 11/27/23 11/27/23 08:39 14:18 16:11 POC Glucose 201 H 205 H 208 H 11/27/23 11/28/23 19:57 07:15 POC Glucose 208 H 143 H Assessment and Plan (1) Diabetes mellitus with retinopathy, with long-term current use of insulin: Status: Acute Plan 58-year-old man status post left transmetatarsal amputation secondary to nonhealing left foot diabetic ulcer Left transmetatarsal amputation Secondary to nonhealing left foot diabetic ulcer Management as per vascular surgery team Having significant amount of pain, narcotic pain medication titrated up Hypertension Elevated blood pressure reading, better today Continue losartan, metoprolol Hydralazine for systolic blood pressure greater than 190 Coronary artery disease/PVD Aspirin, statin, Plavix History of atrial fibrillation started [place] [facility] continue Amiodarone for now, can follow up with cardiology o/p to determine whether patient should continue Diabetes mellitus type 2 Sliding scale, ADA diet, Lantus Diabetic peripheral neuropathy Continue gabapentin Mental health Continue sertraline and tramadol DVT prophylaxis Attending Dr. Baig Full code Medical consultation complete. Will follow along. Quality Stroke Does the patient have a stroke diagnosis?: No VTE Prior VTE?: No VTE Risk Level:: Medical - moderate - high VTE Device Contraindication: N/A - Device Ordered VTE Drug Contraindication: Treatment Not Indicated
[2023-11-28] MEDS: HYDROmorphone HCl 0.5 MG/0.5 ML SYRINGE 1 MG IVPUSH ×3 (09:25→21:40)
[2023-11-28 11:10] LABS: Glucose, Whole Blood 154 mg/dL (60-115)
--- NOTE | 2023-11-28 11:45 | HO.POSTANES ---
Post Anesthesia Evaluation Post Anesthesia Evaluation Date of Service: 11/28/23 Vital Signs: Vital Signs Temp Pulse Resp BP Pulse Ox O2 Del Method 11/28/23 09:25 18 11/28/23 09:03 96 Room Air 11/28/23 07:11 98.1 F 81 16 166/77 H 97 Room Air 11/28/23 02:55 97.3 F 81 16 158/81 H 96 Room Air 11/28/23 00:00 97.4 F 76 16 157/70 H 97 Room Air Anesthesia: General Mental Status: Awake Pain Control: Satisfactory (10/10 pain) Nausea/Vomiting: Mild Hydration: Adequate Anesthesia-Related Issues: No Anes. Related Issues
[2023-11-28] MEDS: Insulin Lispro 100 UNIT/ML 3 ML VIAL SUBCUT ×2 (12:26→16:46)
[2023-11-28] MEDS: oxyCODONE HCl Immed Release 5 MG TABLET 10 MG PO ×2 (12:27→20:16)
--- NOTE | 2023-11-28 12:56 | MHC.CM.PN ---
IMM delivered. Patient is from home w/ and adult sons. Active w/ [facility] for SN/PT. RBKA - patient uses prosthesis and walker, w/c PRN. and son assist w/ ADL's. PCP Shanta Haney MD HCP on file and verified. DP: POD 1 L TMA. No PT eval ordered at this time. Goal is home, resume services. to transport. CM will continue to follow.
--- NOTE | 2023-11-28 14:25 | HO.VASCPN ---
Subjective Subjective Date of Service: 11/28/23 Patient reports: no new complaints and feels better Interval history: Pleasant 58-year-old gentleman postop day 1 status post transmetatarsal amputation. Reports he is doing fairly well. Pain appears to be doing somewhat better. He did have some pain issues last night where pain medications had to be increased. Otherwise no interval issues. Physical Exam Vital Signs: Vital Signs: Last Vital Signs Temp 98.1 F 11/28/23 07:11 Pulse 81 11/28/23 07:11 Resp 18 11/28/23 09:25 BP 166/77 H 11/28/23 07:11 Pulse Ox 96 11/28/23 09:03 O2 Del Method Room Air 11/28/23 09:03 O2 Flow Rate 2 11/27/23 12:40 BMI result Body Mass Index 29.6 Const: General: cooperative, healthy appearing and comfortable Orientation/consciousness: oriented to person, oriented to place and oriented to time HEENT: Head: Yes normal to inspection Neck: Neck: Yes normal visual inspection Carotids: no bruits Chest: Chest palpation & inspection: normal inspection of the chest Resp: Effort & Inspection: normal respiratory effort and able to speak in complete sentences Auscultation: clear to auscultation bilaterally, no crackles, no rales, no rhonchi and no wheezes Cardio: Rate: regular rate Rhythm: regular rhythm Heart sounds: S1 normal heart sound present and S2 normal heart sound present Bruits: no carotid bruits GI: Inspection: Yes normal to inspection Skin: Other: Amp dressing clean dry intact Wounds: no wounds Hair: normal Neuro: General: oriented to person, oriented to place and oriented to time Cranial nerves: Yes CN's II-XII intact bilaterally and Yes Normal hearing present Cognition (Neuro): normal cognition Motor exam (neuro): 5/5 motor strength present throughout Extrem: Other: venous exam: No significant superficial varicosities or spider telangiectasias, minimal edema General: No clubbing, No cyanosis and No edema Psych: Appearance: grossly normal Mental Status: mental status grossly normal Speech and movement: Normal speech and movement present Progress Note: A&P Assessment and plan (1) Status post amputation of left foot through metatarsal bone: Status: Acute Assessment and Plan: In short patient is doing well status post left leg transmetatarsal amputation. At the current time would continue with pain control. Outer Tenzin wrap was removed today. Will plan for dressing change for tomorrow. Patient will require additional stay as pain control seems to be an issue for him. Will reassess tomorrow. For potential discharge Time Spent With Patient Time: Total time managing care of this patient today ____ minutes. Procedures Date of Service Date of Service: 11/28/23 Quality Stroke Does the patient have a stroke diagnosis?: No VTE Prior VTE?: No VTE Risk Level:: Medical - moderate - high VTE Device Contraindication: N/A - Device Ordered VTE Drug Contraindication: Treatment Not Indicated
[2023-11-28] MEDS: LORazepam 2 MG/ML VIAL 0.5 MG IVPUSH ×2 (15:26→21:45)
[2023-11-28] MEDS: 0.9 % Sodium Chloride Flush 3 ML SYRINGE IVFLUSH ×2 (15:27→21:45)
[2023-11-28 16:22] LABS: Glucose, Whole Blood 153 mg/dL (60-115)
[2023-11-28 19:52] LABS: Glucose, Whole Blood 121 mg/dL (60-115)
[2023-11-28] MEDS: Sertraline HCL 25 MG TABLET 75 MG PO (20:15)
[2023-11-28] MEDS: Atorvastatin Calcium 80 MG TABLET PO (20:16)
[2023-11-28] MEDS: Melatonin 3 MG TABLET 6 MG PO (20:16)
[2023-11-28] MEDS: Insulin Glargine,Hum.rec.anlog 100 UNIT/ML 10 ML VIAL 34 UNIT SUBCUT (20:16)
[2023-11-29] MEDS: HYDROmorphone HCl 0.5 MG/0.5 ML SYRINGE 1 MG IVPUSH ×5 (03:21→21:40)
[2023-11-29 03:24] VITALS: BP 134/84; PULSE 79; RESP 18; TEMP 37.2; O2SAT 95
[2023-11-29 07:17] VITALS: BP 165/78; PULSE 83; RESP 18; TEMP 36.8; O2SAT 96
[2023-11-29] MEDS: 0.9 % Sodium Chloride Flush 3 ML SYRINGE IVFLUSH ×3 (07:21→21:44)
[2023-11-29 07:30] LABS: Glucose, Whole Blood 106 mg/dL (60-115)
[2023-11-29] MEDS: Losartan Potassium 25 MG TABLET PO (08:23)
[2023-11-29] MEDS: Metoprolol Succinate ER 50 MG TAB.ER.24H PO (08:23)
[2023-11-29] MEDS: LORazepam 2 MG/ML VIAL 0.5 MG IVPUSH ×2 (08:23→21:40)
[2023-11-29] MEDS: Aspirin 81 MG TAB.CHEW PO (08:23)
[2023-11-29] MEDS: Gabapentin 600 MG TABLET PO ×3 (08:23→21:41)
[2023-11-29] MEDS: Spironolactone 25 MG TABLET PO (08:23)
[2023-11-29] MEDS: Clopidogrel Bisulfate 75 MG TABLET PO (08:23)
[2023-11-29] MEDS: Empagliflozin 10 MG TABLET PO (08:23)
[2023-11-29] MEDS: Famotidine 20 MG TABLET 40 MG PO (08:23)
[2023-11-29] MEDS: Amiodarone HCL 200 MG TABLET PO ×2 (08:23→21:41)
[2023-11-29 09:00] VITALS: O2SAT 97
[2023-11-29] MEDS: Acetaminophen 325 MG TABLET 650 MG PO ×2 (10:30→19:22)
[2023-11-29] MEDS: oxyCODONE HCl Immed Release 5 MG TABLET 10 MG PO ×3 (10:31→19:22)
[2023-11-29 11:14] LABS: Glucose, Whole Blood 149 mg/dL (60-115)
--- NOTE | 2023-11-29 11:14 | HO.VASCPN ---
Subjective Subjective Date of Service: 11/29/23 Patient reports: still having pain Interval history: Very pleasant 58-year-old gentleman presents for follow-up status post transmetatarsal amputation. Overall doing fairly well. Pain control seems to be his biggest issue. He has in a constant source of pain. Unclear where the etiology of this is. He was in a fair amount of pain preoperatively as well. Physical Exam Vital Signs: Vital Signs: Last Vital Signs Temp 98.3 F 11/29/23 07:17 Pulse 83 11/29/23 07:17 Resp 18 11/29/23 07:17 BP 165/78 H 11/29/23 07:17 Pulse Ox 97 11/29/23 09:00 O2 Del Method Room Air 11/29/23 09:00 O2 Flow Rate 2 11/27/23 12:40 BMI result Body Mass Index 29.6 Const: General: cooperative, healthy appearing and no acute distress Orientation/consciousness: oriented to person, oriented to place and oriented to time HEENT: Head: Yes normal to inspection Neck: Carotids: no bruits Chest: Chest palpation & inspection: normal inspection of the chest Resp: Effort & Inspection: normal respiratory effort and able to speak in complete sentences Auscultation: clear to auscultation bilaterally Cardio: Rate: regular rate Heart sounds: S1 normal heart sound present and S2 normal heart sound present GI: Inspection: Yes normal to inspection Skin: Other: Amp site incision line healing extremely well. General skin exam: no rashes or lesions noted Wounds: no wounds Neuro: General: oriented to person, oriented to place, oriented to time and CN's II-XI intact bilaterally Extrem: General: Yes normal to inspection, Yes full ROM and Yes no clubbing, cyanosis or edema Psych: Appearance: grossly normal and well kempt Speech and movement: Normal speech and movement present Affect: normal affect Progress Note: A&P Assessment and plan (1) Status post amputation of left foot through metatarsal bone: Status: Acute Assessment and Plan: In short doing extremely well status post transmetatarsal amputation. Pain control seems to be an issue and may require an additional day. Will try to adjust this and get him on a better p.o. regimen. Anticipate discharge tomorrow if pain is better controlled Time Spent With Patient Time: Total time managing care of this patient today ____ minutes. Procedures Date of Service Date of Service: 11/29/23 Quality Stroke Does the patient have a stroke diagnosis?: No VTE Prior VTE?: No VTE Risk Level:: Medical - moderate - high VTE Device Contraindication: N/A - Device Ordered VTE Drug Contraindication: Treatment Not Indicated
[2023-11-29] MEDS: oxyCODONE HCl ER 10 MG TAB.ER.12H PO ×2 (12:15→21:41)
--- NOTE | 2023-11-29 13:02 | MHC.CM.PN ---
EMR reviewed. Patient is not medically cleared for dc, pain not well controlled. No change to dc plan, no PT eval at this time. CM will continue to follow.
[2023-11-29 15:39] VITALS: BP 143/71; PULSE 75; TEMP 36.4; O2SAT 95
[2023-11-29 15:49] LABS: Glucose, Whole Blood 161 mg/dL (60-115)
[2023-11-29] MEDS: Insulin Lispro 100 UNIT/ML 3 ML VIAL SUBCUT ×2 (17:20→21:44)
[2023-11-29 19:23] VITALS: BP 161/77; PULSE 81; RESP 18; TEMP 36.8; O2SAT 96
[2023-11-29 19:59] LABS: Glucose, Whole Blood 180 mg/dL (60-115)
[2023-11-29] MEDS: Atorvastatin Calcium 80 MG TABLET PO (21:41)
[2023-11-29] MEDS: Melatonin 3 MG TABLET 6 MG PO (21:41)
[2023-11-29] MEDS: Sertraline HCL 25 MG TABLET 75 MG PO (21:41)
[2023-11-29] MEDS: Insulin Glargine,Hum.rec.anlog 100 UNIT/ML 10 ML VIAL 34 UNIT SUBCUT (21:43)
[2023-11-30] MEDS: HYDROmorphone HCl 0.5 MG/0.5 ML SYRINGE 1 MG IVPUSH ×5 (01:52→18:09)
[2023-11-30 04:00] VITALS: BP 123/62; PULSE 79; RESP 18; TEMP 36.7; O2SAT 94
[2023-11-30 07:28] VITALS: BP 138/69; PULSE 76; RESP 18; TEMP 36.8; O2SAT 92
[2023-11-30 07:33] LABS: Glucose, Whole Blood 159 mg/dL (60-115)
[2023-11-30] MEDS: Clopidogrel Bisulfate 75 MG TABLET PO (07:57)
[2023-11-30] MEDS: Spironolactone 25 MG TABLET PO (07:57)
[2023-11-30] MEDS: Empagliflozin 10 MG TABLET PO (07:57)
[2023-11-30] MEDS: Aspirin 81 MG TAB.CHEW PO (07:57)
[2023-11-30] MEDS: Famotidine 20 MG TABLET 40 MG PO (07:57)
[2023-11-30] MEDS: Insulin Lispro 100 UNIT/ML 3 ML VIAL SUBCUT ×3 (07:58→21:06)
[2023-11-30] MEDS: Gabapentin 600 MG TABLET PO ×3 (07:58→21:07)
[2023-11-30] MEDS: Losartan Potassium 25 MG TABLET PO (07:58)
[2023-11-30] MEDS: Metoprolol Succinate ER 50 MG TAB.ER.24H PO (07:58)
[2023-11-30] MEDS: Amiodarone HCL 200 MG TABLET PO ×2 (07:58→21:09)
[2023-11-30] MEDS: 0.9 % Sodium Chloride Flush 3 ML SYRINGE IVFLUSH ×2 (07:59→16:11)
[2023-11-30 09:00] VITALS: O2SAT 98
[2023-11-30] MEDS: oxyCODONE HCl Immed Release 5 MG TABLET 10 MG PO ×3 (11:29→21:08)
[2023-11-30 11:56] LABS: Glucose, Whole Blood 139 mg/dL (60-115)
[2023-11-30 15:04] VITALS: BP 137/65; PULSE 78; RESP 20; TEMP 37.1; O2SAT 94
--- NOTE | 2023-11-30 16:29 | HO.VASCPN ---
Subjective Subjective Date of Service: 11/30/23 Patient reports: no new complaints and feels better Interval history: Patient seen and examined. No significant events overnight. Reports that the pain is better controlled with the OxyContin continuous pain relief. Appears to be doing somewhat better today. Physical Exam Vital Signs: Vital Signs: Last Vital Signs Temp 98.8 F 11/30/23 15:04 Pulse 78 11/30/23 15:04 Resp 20 11/30/23 15:04 BP 137/65 11/30/23 15:04 Pulse Ox 94 11/30/23 15:04 O2 Del Method Room Air 11/30/23 15:04 O2 Flow Rate 2 11/27/23 12:40 BMI result Body Mass Index 29.6 Const: General: cooperative, healthy appearing and comfortable Orientation/consciousness: oriented to person, oriented to place and oriented to time HEENT: Head: Yes normal to inspection Neck: Neck: Yes normal visual inspection Carotids: no bruits Chest: Chest palpation & inspection: normal inspection of the chest Resp: Effort & Inspection: normal respiratory effort and able to speak in complete sentences Auscultation: clear to auscultation bilaterally, no crackles, no rales, no rhonchi and no wheezes Cardio: Rate: regular rate Rhythm: regular rhythm Heart sounds: S1 normal heart sound present and S2 normal heart sound present Bruits: no carotid bruits Peripheral pulses: Peripheral pulses 2+ throughout GI: Inspection: Yes normal to inspection Skin: Other: Trans met amp dressing clean dry intact Wounds: no wounds Hair: normal Neuro: General: oriented to person, oriented to place and oriented to time Cranial nerves: Yes CN's II-XII intact bilaterally and Yes Normal hearing present Cognition (Neuro): normal cognition Motor exam (neuro): 5/5 motor strength present throughout Extrem: Other: venous exam: No significant superficial varicosities or spider telangiectasias, minimal edema General: No clubbing, No cyanosis and No edema Psych: Appearance: grossly normal Mental Status: mental status grossly normal Speech and movement: Normal speech and movement present Progress Note: A&P Assessment and plan (1) Status post amputation of left foot through metatarsal bone: Status: Acute Assessment and Plan: In short doing well status post transmetatarsal amputation. Pain control seems to be his biggest issue. It appears to be getting better and do anticipate discharge tomorrow. This was discussed with the patient knee is in agreement. Will work with the social work team to plan discharge. Time Spent With Patient Time: Total time managing care of this patient today ____ minutes. Procedures Date of Service Date of Service: 11/30/23 Quality Stroke Does the patient have a stroke diagnosis?: No VTE Prior VTE?: No VTE Risk Level:: Medical - moderate - high VTE Device Contraindication: N/A - Device Ordered VTE Drug Contraindication: Treatment Not Indicated
[2023-11-30 16:48] LABS: Glucose, Whole Blood 198 mg/dL (60-115)
[2023-11-30 19:15] VITALS: BP 156/72; PULSE 81; RESP 20; TEMP 36.9; O2SAT 95
[2023-11-30 20:53] LABS: Glucose, Whole Blood 208 mg/dL (60-115)
[2023-11-30] MEDS: Insulin Glargine,Hum.rec.anlog 100 UNIT/ML 10 ML VIAL 34 UNIT SUBCUT (21:06)
[2023-11-30] MEDS: oxyCODONE HCl ER 10 MG TAB.ER.12H PO (21:07)
[2023-11-30] MEDS: Sertraline HCL 25 MG TABLET 75 MG PO (21:07)
[2023-11-30] MEDS: Atorvastatin Calcium 80 MG TABLET PO (21:08)
[2023-11-30] MEDS: LORazepam 2 MG/ML VIAL 0.5 MG IVPUSH (21:21)
[2023-12-01] MEDS: 0.9 % Sodium Chloride Flush 3 ML SYRINGE IVFLUSH ×2 (00:30→07:01)
[2023-12-01] MEDS: HYDROmorphone HCl 0.5 MG/0.5 ML SYRINGE 1 MG IVPUSH ×2 (00:31→08:04)
[2023-12-01 01:01] VITALS: RESP 18
[2023-12-01 02:56] VITALS: BP 141/73; PULSE 78; RESP 18; TEMP 36.6; O2SAT 94
[2023-12-01] MEDS: oxyCODONE HCl Immed Release 5 MG TABLET 10 MG PO ×3 (03:23→10:44)
[2023-12-01 04:23] VITALS: RESP 18
[2023-12-01 07:25] LABS: Glucose, Whole Blood 287 mg/dL (60-115)
[2023-12-01 07:41] VITALS: BP 149/69; PULSE 82; RESP 18; TEMP 36.9; O2SAT 94
[2023-12-01] MEDS: Insulin Lispro 100 UNIT/ML 3 ML VIAL SUBCUT (08:04)
[2023-12-01] MEDS: oxyCODONE HCl ER 10 MG TAB.ER.12H PO (08:04)
[2023-12-01] MEDS: Metoprolol Succinate ER 50 MG TAB.ER.24H PO (08:05)
[2023-12-01] MEDS: Losartan Potassium 25 MG TABLET PO (08:05)
[2023-12-01] MEDS: Gabapentin 600 MG TABLET PO (08:05)
[2023-12-01] MEDS: Amiodarone HCL 200 MG TABLET PO (08:05)
[2023-12-01] MEDS: Famotidine 20 MG TABLET 40 MG PO (08:05)
[2023-12-01] MEDS: Spironolactone 25 MG TABLET PO (08:05)
[2023-12-01] MEDS: Aspirin 81 MG TAB.CHEW PO (08:05)
[2023-12-01] MEDS: Empagliflozin 10 MG TABLET PO (08:05)
[2023-12-01] MEDS: Clopidogrel Bisulfate 75 MG TABLET PO (08:05)
--- NOTE | 2023-12-01 09:28 | P.DS_ITS ---
DS: Providers Provider Date of Service: 12/01/23 Date of admission: 11/27/23 09:49 Primary care physician: Shanta Haney MD Consults: 11/27/23 11:03 Consult to Hospitalist Routine Comment: Consulting Provider: Hospitalist Reason For Exam: Diabetes and medical management DS: Diagnosis Discharge Diagnosis (1) Status post amputation of left foot through metatarsal bone: Status: Acute DS: Summary Hospital Course Hospital Course: Patient had previously undergone great toe and 5th toe amputation. It had been nonhealing. He now has undergone transmetatarsal amputation. Postoperatively did relatively well. Pain control seems to be an extreme issue with him. He did do significantly better once placed on long-acting OxyContin. He is now stable for discharge. Status at Discharge Overall status at discharge: patient is back to baseline Time Attestation Discharge Coordination Time (in mins): 45 Quality: Safe Use of Opioids Does Pt have an Active Cancer Diagnosis on the Problem List?: No Quality: Stroke Does the patient have a stroke diagnosis?: No Physical Exam Vital Signs: Vital Signs: Last Vital Signs Temp 98.4 F 12/01/23 07:41 Pulse 82 12/01/23 07:41 Resp 18 12/01/23 07:41 BP 149/69 H 12/01/23 07:41 Pulse Ox 94 12/01/23 07:41 O2 Del Method Room Air 12/01/23 07:41 O2 Flow Rate 2 11/27/23 12:40 BMI result Body Mass Index 29.6 Const: General: cooperative, healthy appearing and no acute distress Orientation/consciousness: oriented to person, oriented to place and oriented to time HEENT: Head: Yes normal to inspection Neck: Carotids: no bruits Chest: Chest palpation & inspection: normal inspection of the chest Resp: Effort & Inspection: normal respiratory effort and able to speak in complete sentences Auscultation: clear to auscultation bilaterally Cardio: Rate: regular rate Heart sounds: S1 normal heart sound present and S2 normal heart sound present GI: Inspection: Yes normal to inspection Skin: General skin exam: no rashes or lesions noted Wounds: no wounds Neuro: General: oriented to person, oriented to place, oriented to time and CN's II-XI intact bilaterally Extrem: General: Yes normal to inspection, Yes full ROM and Yes no clubbing, cyanosis or edema Psych: Appearance: grossly normal and well kempt Speech and movement: Normal speech and movement present Affect: normal affect DS: Data Data Completed and Pending Completed studies during hospitalization [Text1]: Pending at discharge 11/27/23 10:30 Surgical [PTH] Routine Procedures Detachment at Left 1st Toe, Complete, Open Approach (10/18/23) Detachment at Left 5th Toe, Complete, Open Approach (10/18/23) Detachment at Right 1st Toe, Complete, Open Approach (08/18/21) Detachment at Right Lower Leg, High, Open Approach (08/18/21) Dilation of Left Peroneal Artery using Drug-Coated Balloon, Percutaneous Approach (10/18/23) Dilation of Right Ureter with Intraluminal Device, Via Natural or Artificial Opening Endoscopic (06/21/20) Excision of Right Tarsal, Open Approach (08/18/21) Extirpation of Matter from Right Ureter, Via Natural or Artificial Opening Endoscopic (06/21/20) Fluoroscopy of Right Kidney, Ureter and Bladder (06/21/20) Insertion of Infusion Device into Superior Vena Cava, Percutaneous Approach (08/18/21) Labs on day of discharge: Laboratory Results - last 24 hr 11/30/23 11/30/23 11/30/23 11:52 16:45 20:49 POC Glucose 139 H 198 H 208 H 12/01/23 07:17 POC Glucose 287 H Discharge Plan Discharge Anticipated Discharge Date/Time: 12/01/23 09:23 Patient Disposition: Home, Self-Care Discharge Diagnosis: Statu post transmetatarsal amputation Referrals: Shanta Haney MD [Primary Care Provider] - 1 Week Discharge Medications: New oxycodone [OxyContin] 10 mg tablet,oral only,ext.rel.12 hr 10 mg PO BID Qty: 14 0RF Rx Instructions: Partial Fill upon patient request. cephalexin 500 mg capsule 500 mg PO Q12H Qty: 20 0RF Continued (DME) Bedside commode See Rx Instructions .Route .MEDSUPPLY Qty: 1 0RF Rx Instructions: As directed (DME) walker with wheels See Rx Instructions .Route .MEDSUPPLY Qty: 1 0RF Rx Instructions: As directed (DME) pen needle, diabetic [BD Ultra-Fine Short Pen Needle] 31 gauge x 5/16 needle See Rx Instructions .ROUTE .COMPLEX Qty: 100 5RF Dose Instruction: USE MARÍA LO INDICADO BENNETT VECES AL LIZZIE ANTES DE LAS COMIDAS Rx Instructions: USE MARÍA LO INDICADO BENNETT VECES AL LIZZIE ANTES DE LAS COMIDAS (DME) recliner See Rx Instructions .Route .MEDSUPPLY Qty: 1 0RF Rx Instructions: As directed (DME) FreeStyle Frank 2 [place] Misc See Rx Instructions .Route Qty: 1 0RF Rx Instructions: As directed (DME) FreeStyle Frank 2 Sensor Kit See Rx Instructions .Route Qty: 2 8RF Rx Instructions: As directed change every 14 days aspirin 81 mg tablet,chewable 81 mg PO DAILY Qty: 90 1RF metoprolol succinate 50 mg tablet extended release 24 hr 50 mg PO DAILY Qty: 90 1RF famotidine 40 mg tablet 40 mg PO DAILY melatonin 5 mg Tablet 5 mg PO BEDTIME PRN (Reason: Sleep) insulin lispro [Admelog U-100 Insulin lispro] 100 unit/mL Solution See Protocol subcut QIDACHS Qty: 10 0RF Protocol: Insulin Correction Scale Less than or equal to 110 ---- Give (units): 0 111 to 150 Give (units): 0 151 to 200 Give (units): 2 201 to 250 Give (units): 4 251 to 300 Give (units): 6 301 to 350 Give (units): 8 Greater than 350 Give (units): 10 Call MD if Blood Glucose > : 350 amiodarone 200 mg tablet 200 mg PO BID pantoprazole 40 mg tablet,delayed release (DR/EC) 40 mg PO DAILY@0630 lidocaine 5 % adhesive patch,medicated 1 patch topical DAILY PRN (Reason: moderate pain) acetaminophen [Acetaminophen Extra Strength] 500 mg Tablet 1,000 mg PO Q6H PRN (Reason: Pain) insulin glargine [Lantus Solostar U-100 Insulin] 100 unit/mL (3 mL) insulin pen 34 unit subcut BEDTIME clopidogrel 75 mg tablet 75 mg PO DAILY dapagliflozin propanediol [Farxiga] 10 mg tablet 10 mg PO DAILY losartan 25 mg tablet 25 mg PO DAILY sertraline 50 mg tablet 75 mg PO BEDTIME spironolactone 25 mg tablet 25 mg PO DAILY tramadol 50 mg tablet 50 mg PO Q6H PRN (Reason: pain) oxycodone 5 mg Tablet 5 mg PO Q6H PRN (Reason: Pain, Moderate(Pain Scale 4-6)) Qty: 24 0RF Rx Instructions: Partial Fill upon patient request. doxycycline monohydrate 100 mg capsule 100 mg PO BID Qty: 14 0RF gabapentin 600 mg tablet 600 mg PO TID Qty: 90 4RF (DME) blood-glucose meter [FreeStyle Lite Meter] Kit See Rx Instructions .Route Rx Instructions: As directed (DME) FreeStyle Lite Strips Strip See Rx Instructions .Route Rx Instructions: As directed atorvastatin 80 mg tablet 80 mg PO BEDTIME Discharge Orders: Discharge Order (Routine); Ordered 12/01/23 Ordered By: Berto Sheppard Diet: Advance to usual diet Activity on Discharge: As tolerated Stand Alone Forms: Patient Portal Discharge page Print Language: Faroese Activity Restrictions/Additional Instructions: Wound care upon discharge: xeroform, 4x4 and Kerlix wrap to be changed daily. Please call Dr. Sheppard at [phone] for 2 week follow up for suture and staple removal Care Plan Goals: Status post transmetatarsal amputation. In short postop healing Health Concerns: Amputation Plan of Treatment: Postop care Assessment: Status post transmetatarsal amputation
[2023-12-01] MEDS: LORazepam 2 MG/ML VIAL 0.5 MG IVPUSH (09:41)
--- NOTE | 2023-12-01 10:42 | MHC.CM.PN ---
PT WILL DC HOME TODAY WITH RESUMPTION OF [facility] TO TRANSPORT
[2023-12-01 11:28] LABS: Glucose, Whole Blood 180 mg/dL (60-115)
== END 2023-12-01 11:52 | disposition home health service (06) | DRG 476 ==
LOC: HO.SSSA 09:50 → HO.S3 12:43
PROVIDERS: Admitting Provider Surgery Vascular Surgery; PCP Internal Medicine; Visit Provider Surgery Vascular Surgery
PROC: 0Y6N0Z5 Detachment at Left Foot, Complete 2nd Ray, Open Approach (ICD-10-PCS; CPT 28805; principal; 2023-11-27 09:30)
DX: T87.89 Other complications of amputation stump (principal); Y83.5 Amputation of limb(s) as the cause of abnormal reaction of the patient, or of later complication, without mention of misadventure at the time of the procedure; I25.10 Atherosclerotic heart disease of native coronary artery without angina pectoris; Z95.1 Presence of aortocoronary bypass graft; K21.9 Gastro-esophageal reflux disease without esophagitis; I10 Essential (primary) hypertension; E78.5 Hyperlipidemia, unspecified; E11.42 Type 2 diabetes mellitus with diabetic polyneuropathy; Z87.891 Personal history of nicotine dependence; Z89.511 Acquired absence of right leg below knee; Z79.4 Long term (current) use of insulin; Z79.82 Long term (current) use of aspirin; Z79.899 Other long term (current) drug therapy
CPT/HCPCS: 82947; 88305; 88311; C1776; J0360; J0690; J1170; J2060; J2250; J2270; J2704; J2795; J3010

== ENCOUNTER → 2023-11-27 09:49 | Outpatient (BNV) | payer MEDICARE, SELFPAY | PROVIDERS: Admitting Provider Surgery Vascular Surgery; PCP Internal Medicine; Visit Provider Nurse Practitioner Acute Care | DX: E11.49 Type 2 diabetes mellitus with other diabetic neurological complication (principal); Z79.4 Long term (current) use of insulin; Z89.432 Acquired absence of left foot; Z89.511 Acquired absence of right leg below knee | CPT/HCPCS: 99223; 99232 ==

== ENCOUNTER → 2023-11-27 09:49 | Outpatient (BNV) | payer MEDICARE, SELFPAY | PROVIDERS: Admitting Provider Surgery Vascular Surgery; PCP Internal Medicine; Visit Provider Surgery Vascular Surgery | DX: Z89.432 Acquired absence of left foot (principal) | CPT/HCPCS: 28805; 99024 ==

== ENCOUNTER 2023-12-07 20:12 | Emergency (ER) | payer MEDICARE, SELFPAY ==
--- NOTE | ~2023-12-07 | XR_ITS ---
EXAMINATION: XR FOOT, LEFT CLINICAL INFORMATION: Recent amputation, pain. COMPARISON: Radiograph left foot 11/17/2023. TECHNIQUE: AP and lateral views of the left foot. FINDINGS: Complete amputation at the base of the metatarsals with overlying surgical skin blanca. Diffuse soft tissue swelling. Severe vascular calcifications. No discrete focal erosive changes or significant cortical irregularity to suspect osteomyelitis. XR/XR foot LT 2V IMPRESSION: No radiographic evidence of osteomyelitis.
[2023-12-07 20:21] VITALS: BP 121/59; BP 140/78; PULSE 80; PULSE 82; RESP 16; TEMP 37.1; O2SAT 98; BMI 31.2
--- NOTE | 2023-12-07 20:41 | ED_ITS ---
HPI - Wound/Laceration General Chief Complaint: Wound/Laceration Stated Complaint: AMPUTATED TOE PAIN FROM RECENT AMPUTATION.05/07 Time Seen by Provider: 12/07/23 20:39 Source: patient Mode of arrival: EMS Limitations: no limitations History of Present Illness HPI narrative: Patient is status post metatarsal amputation of the left foot on 11/27/2023 for diabetic foot ulcer did not have any pain medication at home trying to use Tylenol no pus discharge or change in the wound surgical margin pain is according to patient more in the heel area no fever no chills no nausea no vomiting pain started getting worse today patient is started on cephalexin on 11/30 by his vascular surgeon Related Data Home Medications ?Medication ?Instructions ?Recorded ?Confirmed blood sugar diagnostic (FreeStyle 12/01/22 06/28/23 Lite Strips) blood-glucose meter (FreeStyle 12/01/22 06/28/23 Lite Meter kit) atorvastatin 80 mg tablet 80 mg PO BEDTIME 06/20/23 11/27/23 famotidine 40 mg tablet 40 mg PO DAILY heartburn 09/11/23 11/27/23 melatonin 5 mg tablet 5 mg PO BEDTIME PRN Sleep 09/11/23 11/27/23 acetaminophen 500 mg tablet 1,000 mg PO Q6H PRN Pain 10/18/23 11/27/23 (Acetaminophen Extra Strength) amiodarone 200 mg tablet 200 mg PO BID 10/18/23 11/27/23 insulin glargine 100 unit/mL (3 34 unit subcut BEDTIME 10/18/23 11/27/23 mL) subcutaneous pen (Lantus Solostar U-100 Insulin) lidocaine 5 % topical patch 1 patch topical DAILY PRN moderate 10/18/23 11/27/23 pain pantoprazole 40 mg tablet,delayed 40 mg PO DAILY@0630 10/18/23 11/27/23 release clopidogrel 75 mg tablet 75 mg PO DAILY 11/18/23 11/27/23 dapagliflozin propanediol 10 mg 10 mg PO DAILY 11/18/23 11/27/23 tablet (Farxiga) losartan 25 mg tablet 25 mg PO DAILY 11/18/23 11/27/23 sertraline 50 mg tablet 75 mg PO BEDTIME 11/18/23 11/27/23 spironolactone 25 mg tablet 25 mg PO DAILY 11/18/23 11/27/23 tramadol 50 mg tablet 50 mg PO Q6H PRN pain 11/18/23 11/27/23 Previous Rx's ?Medication ?Instructions ?Recorded Bedside commode #1 ea 04/18/22 walker with wheels #1 ea 08/19/22 pen needle, diabetic 31 gauge x #100 ea 10/20/22 5/16 (BD Ultra-Fine Short Pen Needle) recliner #1 ea 11/23/22 flash glucose scanning reader #1 ea 12/02/22 (FreeStyle Frank 2 [place]) flash glucose sensor (FreeStyle #2 ea 03/06/23 Frank 2 Sensor kit) gabapentin 600 mg tablet 600 mg PO TID #90 tabs 08/25/23 aspirin 81 mg chewable tablet 81 mg PO DAILY #90 tabs 09/10/23 metoprolol succinate 50 mg 50 mg PO DAILY #90 tabs 09/10/23 tablet,extended release 24 hr insulin lispro 100 unit/mL See Protocol subcut QIDACHS #10 mL 09/12/23 subcutaneous solution (Admelog U-100 Insulin lispro) doxycycline monohydrate 100 mg 100 mg PO BID #14 caps 11/21/23 capsule oxycodone 5 mg tablet 5 mg PO Q6H PRN Pain, 11/21/23 Moderate(Pain Scale 4-6) #24 tabs cephalexin 500 mg capsule 500 mg PO Q12H #20 caps 12/01/23 oxycodone 10 mg tablet,crush 10 mg PO BID #14 tabs 12/01/23 resistant,extended release 12 hr (OxyContin) oxycodone-acetaminophen 5 mg-325 1 tab PO Q6H PRN pain #20 tabs 12/08/23 mg tablet (Percocet) Allergies Allergy/AdvReac Type Severity Reaction Status Date / Time No Known Allergies Allergy Verified 12/08/23 00:13 Review of Systems 2 Review of Systems: Yes all other systems are reviewed and are negative [facility] Past Medical History Medical History Dry gangrene Peripheral arterial disease Atrial fibrillation Diabetic foot infection 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 Diabetes mellitus with retinopathy, with long-term current use of insulin PAD (peripheral artery disease) Heartburn symptom Amputation stump infection Major depression, recurrent Erectile dysfunction Dyslipidemia Amputation stump complication Intractable left heel pain Chronic 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 Type 2 diabetes mellitus with hyperglycemia Hyperlipidemia Chronic pancreatitis Essential hypertension Neuropathy Kidney calculus Alcohol abuse CAD (coronary artery disease) Arthritis Surgical History S/P angiogram of extremity (06/28/23) History of right below knee amputation Status post below-knee amputation S/P debridement Hx of lithotripsy Status post laparoscopic cholecystectomy Hx of heart artery stent Family History Family History Mother [place] (myocardial infarction), Onset Age: 64 Diabetes mellitus HTN (hypertension) Maternal Grandmother Diabetes mellitus Social History Social History Household Members: Spouse and Children Household Members Other:: and daughter Housing: Apartment Do you presently have visiting nurse or other home services: Yes Alcohol intake: former Comment: pt ambulates with crutches. Patient Tobacco Use Status: Former Tobacco user Quit Date: Jun 2023 Tobacco use type: Cigarette Cigarette Packs Per Day: 0.01 Cigarettes Per Day: 3 Years Smoked: 25+ Smoked in Last 30 Days: No e-Cigarette/Vaping Use: Never Used Second Hand Smoke Exposure: No Use of substances other than those prescribed or required for medical reasons: No Substance Use Type: Marijuana Advance Directives: No Advance Directives Information Provided: No Advance Directives Date on File: 04/17/21 service: No Current occupational status: unemployed and disabled Cognitive needs: No Hearing needs: No Vision needs: Yes Physical Exam 2 Vital Signs: Vital Signs: Last Vital Signs Temp 97.6 F 12/07/23 23:27 Pulse 67 12/07/23 23:27 Resp 16 12/07/23 23:27 BP 124/58 L 12/07/23 23:27 Pulse Ox 97 12/07/23 23:27 O2 Del Method Room Air 12/07/23 23:27 BMI result Body Mass Index 31.2 Const: Other: Appearance: Alert. Oriented X3. No acute distress. Eyes: PERRLA, No Nystagmus ENT: Pharynx normal. Oral Mucosa moist Neck: Normal inspection. Neck supple. CVS: Normal heart rate and rhythm. Pulses normal. Respiratory: No respiratory distress. Equal air entry bilateral, no wheezing/rales/rhonchi Abdomen: Soft and nontender. Bowel sounds are present, no mass palpable, no CVA tenderness Skin: Skin warm and dry. Normal skin color. Normal skin turgor. Extremities: No lower extremity edema. No calf tenderness right BKA left metatarsal amputation with healthy wound diffuse tenderness of the left heel area without any open wounds or redness dorsalis pedis 2+ Neuro: Oriented X 3. No motor deficit. Medications Administered Discontinued Medications Generic Name Dose Route Start Last Admin Trade Name Freq PRN Reason Stop Dose Admin Hydromorphone HCl 2 mg 12/07/23 22:09 12/07/23 22:15 Hydromorphone Hcl 2 Mg/Ml Vial IVPUSH 12/07/23 22:10 2 mg ONCE ONE Administration Protocol Vancomycin HCl 2,000 mg in 500 mls @ 250 mls/hr 12/07/23 20:52 12/07/23 22:26 Vancomycin/Ns IV 12/07/23 22:51 250 mls/hr ONCE ONE Administration Piperacillin Sod/Tazobactam 50 mls @ 100 mls/hr 12/07/23 20:52 12/07/23 22:25 Sod 3.375 gm/ Sodium Chloride IV 12/07/23 21:21 Infused ONCE ONE Infusion Sodium Chloride 1,000 mls @ 999 mls/hr 12/07/23 22:10 12/07/23 23:16 Ns IV 12/07/23 23:10 Infused .Q1H1M ONE Infusion Ondansetron HCl 4 mg 12/07/23 22:09 12/07/23 22:15 Ondansetron Hcl 4 Mg/2 Ml Vial IVPUSH 12/07/23 22:10 4 mg ONCE ONE Administration Medical Decision Making Medical Decision Making [facility] Narrative: Patient with pain in the left foot after metatarsal amputation clinically no signs of significant infection noticed afebrile WBC count is normal normal lactic acid patient felt much better after Dilaudid patient did have elevated white count without left shift also had elevated sed rate which has been elevated for long time. At this time after discussion with hospitalist decided patient can be discharged home on pain medication and continue cephalexin advised to follow-up with vascular surgeon next week Differential Diagnosis Differential Diagnoses: The differential diagnosis associated with the presentation includes Pain postop/phantom pain/osteomyelitis/infected wound Admission/Observation Consideration of admission/observation: Escalation of care including admission/observation considered Consult Healthcare Provider Management of the patient was discussed with: Hospitalist Lab Data MDM Lab Attestation statement: I reviewed the patient's lab results. 12/07/23 20:43 12/07/23 20:43 Labs: Lab Results 12/07/23 12/07/23 Range/Units 20:43 21:05 WBC 13.2 H (4.8-10.8) X10*3/uL RBC 4.32 L (4.60-5.80) X10*6/uL Hgb 10.1 L (14.0-18.0) g/dl Hct 32.9 L (42.0-52.0) % MCV 76.2 L (80.0-98.0) fL MCH 23.4 L (27.0-33.0) pg MCHC 30.7 L (31.0-36.0) g/dl RDW 16.5 H (11.0-16.0) % Plt Count 409 H D (160-400) X10*3/uL MPV 9.7 (9.4-12.4) fL Immature Gran % (Auto) 2.0 H (0.0-0.4) % Neut % (Auto) 67.4 (45-73) % Lymph % (Auto) 19.8 L (20-40) % [place] % (Auto) 7.5 (2-11) % Eos % (Auto) 2.7 (0-4) % Baso % (Auto) 0.6 (0-2) % Lymph # (Auto) 2.6 (1.2-4.9) X10*3/uL [place] # (Auto) 1.0 (0.1-1.2) X10*3/uL Eos # (Auto) 0.4 (0.0-0.4) X10*3/uL Baso # (Auto) 0.1 (0.0-0.2) X10*3/uL Abs Immat Gran (auto) 0.27 H (0.00-0.03) X10*3/uL Absolute Neuts (auto) 8.9 H (2.0-8.3) x10*3/uL Absolute Nucleated RBC 0.000 (0.0-0.012) X10*3/uL Nucleated RBC % (auto) 0.0 (0.0-0.2) /100WBC ESR 90 H (0-15) MM/HR Sodium 136 (135-145) mmol/L Potassium 4.4 (3.3-5.1) mmol/L Chloride 105 (96-108) mmol/L Carbon Dioxide 21 L (22-29) mmol/L Anion Gap 14 (12-20) BUN 28 H (9-16) mg/dL Creatinine 1.00 (0.5-1.4) mg/dL Estim Creat Clear Calc 93.1 Estimated GFR > 60 Random Glucose 244 H (60-115) mg/dL Lactic Acid 1.9 (0.5-2.0) mmol/L Calcium 8.5 D (8.4-10.2) mg/dL Total Bilirubin 0.1 (0.0-1.0) mg/dL AST 37 (5-37) U/L ALT 40 (0-40) U/L Alkaline Phosphatase 98 (39-117) U/L C-Reactive Protein 5.57 H (< or = 0.50) mg/dL Total Protein 8.0 (6.5-8.0) g/dL Albumin 3.0 L (3.5-5.0) g/dL Independent Interpretation I performed an independent interpretation of an: Plain X-Ray Interpretation: No bony erosion Radiology Impression Discussion of test interpretation with radiology: I have reviewed the radiologist's reading. Discharge Plan Discharge Clinical Impression: Status post amputation of left foot through metatarsal bone Patient Disposition: Home, Self-Care Instructions: Acute Wounds (ED) Additional Instructions: Likely pain from postop changes no signs of significant infection noticed locally at the amputee area continue cephalexin as prescribed by vascular surgeon Follow-up with your vascular surgeon within 2 weeks Prescriptions: New oxycodone-acetaminophen [Percocet] 5-325 mg tablet 1 tab PO Q6H PRN (Reason: pain) Qty: 20 0RF Rx Instructions: Partial Fill upon patient request. No Action (DME) Bedside commode See Rx Instructions .Route .MEDSUPPLY Qty: 1 0RF Rx Instructions: As directed (DME) walker with wheels See Rx Instructions .Route .MEDSUPPLY Qty: 1 0RF Rx Instructions: As directed (DME) pen needle, diabetic [BD Ultra-Fine Short Pen Needle] 31 gauge x 5/16 needle See Rx Instructions .ROUTE .COMPLEX Qty: 100 5RF Dose Instruction: USE MARÍA LO INDICADO BENNETT VECES AL LIZZIE ANTES DE LAS COMIDAS Rx Instructions: USE MARÍA LO INDICADO BENNETT VECES AL LIZZIE ANTES DE LAS COMIDAS (DME) recliner See Rx Instructions .Route .MEDSUPPLY Qty: 1 0RF Rx Instructions: As directed (DME) FreeStyle Frank 2 [place] Misc See Rx Instructions .Route Qty: 1 0RF Rx Instructions: As directed (DME) FreeStyle Frank 2 Sensor Kit See Rx Instructions .Route Qty: 2 8RF Rx Instructions: As directed change every 14 days aspirin 81 mg tablet,chewable 81 mg PO DAILY Qty: 90 1RF metoprolol succinate 50 mg tablet extended release 24 hr 50 mg PO DAILY Qty: 90 1RF famotidine 40 mg tablet 40 mg PO DAILY melatonin 5 mg Tablet 5 mg PO BEDTIME PRN (Reason: Sleep) insulin lispro [Admelog U-100 Insulin lispro] 100 unit/mL Solution See Protocol subcut QIDACHS Qty: 10 0RF Protocol: Insulin Correction Scale Less than or equal to 110 ---- Give (units): 0 111 to 150 Give (units): 0 151 to 200 Give (units): 2 201 to 250 Give (units): 4 251 to 300 Give (units): 6 301 to 350 Give (units): 8 Greater than 350 Give (units): 10 Call MD if Blood Glucose > : 350 amiodarone 200 mg tablet 200 mg PO BID pantoprazole 40 mg tablet,delayed release (DR/EC) 40 mg PO DAILY@0630 lidocaine 5 % adhesive patch,medicated 1 patch topical DAILY PRN (Reason: moderate pain) acetaminophen [Acetaminophen Extra Strength] 500 mg Tablet 1,000 mg PO Q6H PRN (Reason: Pain) insulin glargine [Lantus Solostar U-100 Insulin] 100 unit/mL (3 mL) insulin pen 34 unit subcut BEDTIME oxycodone [OxyContin] 10 mg tablet,oral only,ext.rel.12 hr 10 mg PO BID Qty: 14 0RF Rx Instructions: Partial Fill upon patient request. cephalexin 500 mg capsule 500 mg PO Q12H Qty: 20 0RF clopidogrel 75 mg tablet 75 mg PO DAILY dapagliflozin propanediol [Farxiga] 10 mg tablet 10 mg PO DAILY losartan 25 mg tablet 25 mg PO DAILY sertraline 50 mg tablet 75 mg PO BEDTIME spironolactone 25 mg tablet 25 mg PO DAILY tramadol 50 mg tablet 50 mg PO Q6H PRN (Reason: pain) oxycodone 5 mg Tablet 5 mg PO Q6H PRN (Reason: Pain, Moderate(Pain Scale 4-6)) Qty: 24 0RF Rx Instructions: Partial Fill upon patient request. doxycycline monohydrate 100 mg capsule 100 mg PO BID Qty: 14 0RF gabapentin 600 mg tablet 600 mg PO TID Qty: 90 4RF (DME) blood-glucose meter [FreeStyle Lite Meter] Kit See Rx Instructions .Route Rx Instructions: As directed (DME) FreeStyle Lite Strips Strip See Rx Instructions .Route Rx Instructions: As directed atorvastatin 80 mg tablet 80 mg PO BEDTIME Referrals: Berto Sheppard MD [Physician] - Print Language: Czech
--- NOTE | 2023-12-07 20:43 | PC.NURSE ---
Patient BIB [facility] from home for evaluation of worsening pain in left foot. Patient s/p recent left trans metatarsal amputation, pain has been effectively managed with Tylenol PO until this morning. Patient reports sudden onset of worsening pain 10/10 with no relief from positioning or Tylenol. Dressing changes have been managed by [facility] 3xwk, last dressing change today. He was told by [facility] RN that surgical incision has been healing well. Patient changed into a hospital attire, labs drawn and sent to lab for processing, 20 G IV line established in R wrist. Call arthur placed within patient's reach. Dr. Alonzo at bedside.
[2023-12-07 20:48] LABS: MANUAL DIFF FLAG NO
[2023-12-07 20:49] LABS: Basophils Absolute Auto 0.1 X10*3/uL (0.0-0.2); Basophils Percent Auto 0.6 % (0-2); Eosinophils Absolute Auto 0.4 X10*3/uL (0.0-0.4); Eosinophils Percent Auto 2.7 % (0-4); Hematocrit 32.9 % (42.0-52.0); Hemoglobin 10.1 g/dl (14.0-18.0); Imm Gran Abs Auto 0.27 X10*3/uL (0.00-0.03); Lymphocytes Absolute Auto 2.6 X10*3/uL (1.2-4.9); Lymphocytes Percent Auto 19.8 % (20-40); Mean Corpuscular HGB Conc 30.7 g/dl (31.0-36.0); Mean Corpuscular Hemoglobin 23.4 pg (27.0-33.0); Mean Corpuscular Volume 76.2 fL (80.0-98.0); Mean Platelet Volume 9.7 fL (9.4-12.4); Monocytes Percent Auto 7.5 % (2-11); Neutrophils Absolute Auto 8.9 x10*3/uL (2.0-8.3); Neutrophils Percent Auto 67.4 % (45-73); Platelet Count 409 X10*3/uL (160-400); Red Blood Count 4.32 X10*6/uL (4.60-5.80); Red Cell Distribution Width 16.5 % (11.0-16.0); White Blood Count 13.2 X10*3/uL (4.8-10.8)
[2023-12-07 21:18] LABS: Alanine Aminotransferase 40 U/L (0-40); Alkaline Phosphatase 98 U/L (39-117); Anion Gap 14 (12-20); Aspartate Amino Transferase 37 U/L (5-37); Bilirubin Total 0.1 mg/dL (0.0-1.0); Blood Urea Nitrogen 28 mg/dL (9-16); C Reactive Protein 5.57 mg/dL (< or = 0.50); Calcium 8.5 mg/dL (8.4-10.2); Carbon Dioxide 21 mmol/L (22-29); Chloride 105 mmol/L (96-108); Creatinine Clr Calc Pharmacy 93.1; Estimated Glomerular Filt Rate > 60; Glucose Random 244 mg/dL (60-115); Potassium 4.4 mmol/L (3.3-5.1); Sodium 136 mmol/L (135-145)
[2023-12-07 21:21] LABS: Lactic Acid 1.9 mmol/L (0.5-2.0)
--- NOTE | 2023-12-07 21:21 | MHC.EDTECH ---
PATIENT WAS BIBA FROM HOME ,VITALS TAKEN ,PATIENT WAS CHANGE INTO HOSPITAL ATTIRE ,2ND SETS OF BLOOD CULTURE DRAWN AND SENT TO LAB,CALL [facility]MAN WITHIN PT REACH .
[2023-12-07 21:42] LABS: Erythrocyte Sedimentation Rate 90 MM/HR (0-15)
[2023-12-07 21:46] VITALS: BP 118/60; PULSE 76; RESP 16; TEMP 37.4; O2SAT 96
[2023-12-07] MEDS: Piperacillin Sodium/Tazobactam 3.375 GM in 0.9 % Sodium Chloride 50 ML IV (21:55)
[2023-12-07 22:15] VITALS: RESP 18
[2023-12-07] MEDS: ondansetron HCL 4 MG/2 ML VIAL IVPUSH (22:15)
[2023-12-07] MEDS: HYDROmorphone HCl 2 MG/ML VIAL IVPUSH (22:15)
[2023-12-07] MEDS: 0.9 % Sodium Chloride 1,000 ML 999 ML IV (22:15)
--- NOTE | 2023-12-07 22:15 | PC.NURSE ---
Patient medicated with Dilaudid 2 mg IV push.
[2023-12-07] MEDS: vancomycin/NS 2,000 MG/500 ML PLAST..BAG 250 MG IV (22:26)
--- NOTE | 2023-12-07 23:16 | PC.NURSE ---
Patient reports pain in left foot 7/10 at present. Patient requested ice chips. Dr. Andujar at bedside.
[2023-12-07 23:27] VITALS: BP 124/58; PULSE 67; RESP 16; TEMP 36.4; O2SAT 97
[2023-12-08] MEDS: oxyCODONE HCl Immed Release 5 MG TABLET 10 MG PO (01:10)
[2023-12-08 01:14] VITALS: BP 126/69; PULSE 72; RESP 16; TEMP 36.7; O2SAT 98
[2023-12-08 02:17] VITALS: BP 128/74; PULSE 76; RESP 16; TEMP 36.7; O2SAT 98
== END 2023-12-08 02:30 | disposition home or self-care (01) ==
PROVIDERS: Emergency Provider Internal Medicine; PCP Internal Medicine
DX: G89.18 Other acute postprocedural pain (principal); M79.672 Pain in left foot; Z79.899 Other long term (current) drug therapy
CPT/HCPCS: 36415; 73620; 80053; 83605; 85025; 85652; 86140; 87040; 96365; 96366; 96367; 96375; 99285; J1170; J2405; J2543; J3370

== ENCOUNTER 2023-12-10 12:48 | Emergency (ER) | payer MEDICARE, MEDICAID, SELFPAY ==
[2023-12-10 13:21] VITALS: BP 150/75; BP 154/94; PULSE 68; PULSE 71; RESP 19; TEMP 36.8; O2SAT 98; O2SAT 99; BMI 32.0
--- NOTE | 2023-12-10 14:25 | PC.NURSE ---
PT IS A/O X 4 NO SOB/IMAN NOTED SPEAKS IN FULL SENTENCES. PT HAS L FOOT SURGERY 2 WKS AGO. PT C/O ANTERIOR AND POSTERIOR PAIN. +PP VIA DOPPLER. PT HAS 27 GÓMEZ AND 6 SUTURES WHICH ARE INTACT. DARK DISCOLORATION PROXIMAL TO GÓMEZ. SWELLING NOTED WITH SLIGHT REDNESS TO L FOOT. OUTER DRESSING WITH SMALL AMT OF SEROUS/SLIGHT SANGEROUS DRAINAGE NOTED. DRESSING REMOVED FOR MD ASSESS/EVAL. PT C/O 05/07 TO L FOOT. PT AWARE OF PLAN OF CARE.
[2023-12-10 15:55] VITALS: BP 144/78; PULSE 69; RESP 18; TEMP 36.9; O2SAT 98
--- NOTE | 2023-12-10 16:22 | ED.GENADULT ---
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 Related Data Home Medications ?Medication ?Instructions ?Recorded ?Confirmed blood sugar diagnostic (FreeStyle 12/01/22 06/28/23 Lite Strips) blood-glucose meter (FreeStyle 12/01/22 06/28/23 Lite Meter kit) atorvastatin 80 mg tablet 80 mg PO BEDTIME 06/20/23 11/27/23 famotidine 40 mg tablet 40 mg PO DAILY heartburn 09/11/23 11/27/23 melatonin 5 mg tablet 5 mg PO BEDTIME PRN Sleep 09/11/23 11/27/23 acetaminophen 500 mg tablet 1,000 mg PO Q6H PRN Pain 10/18/23 11/27/23 (Acetaminophen Extra Strength) amiodarone 200 mg tablet 200 mg PO BID 10/18/23 11/27/23 insulin glargine 100 unit/mL (3 34 unit subcut BEDTIME 10/18/23 11/27/23 mL) subcutaneous pen (Lantus Solostar U-100 Insulin) lidocaine 5 % topical patch 1 patch topical DAILY PRN moderate 10/18/23 11/27/23 pain pantoprazole 40 mg tablet,delayed 40 mg PO DAILY@0630 10/18/23 11/27/23 release clopidogrel 75 mg tablet 75 mg PO DAILY 11/18/23 11/27/23 dapagliflozin propanediol 10 mg 10 mg PO DAILY 11/18/23 11/27/23 tablet (Farxiga) losartan 25 mg tablet 25 mg PO DAILY 11/18/23 11/27/23 sertraline 50 mg tablet 75 mg PO BEDTIME 11/18/23 11/27/23 spironolactone 25 mg tablet 25 mg PO DAILY 11/18/23 11/27/23 tramadol 50 mg tablet 50 mg PO Q6H PRN pain 11/18/23 11/27/23 Previous Rx's ?Medication ?Instructions ?Recorded Bedside commode #1 ea 04/18/22 walker with wheels #1 ea 08/19/22 pen needle, diabetic 31 gauge x #100 ea 10/20/22 5/16 (BD Ultra-Fine Short Pen Needle) recliner #1 ea 11/23/22 flash glucose scanning reader #1 ea 12/02/22 (FreeStyle Frank 2 Hilliards) flash glucose sensor (FreeStyle #2 ea 03/06/23 Frank 2 Sensor kit) gabapentin 600 mg tablet 600 mg PO TID #90 tabs 08/25/23 aspirin 81 mg chewable tablet 81 mg PO DAILY #90 tabs 09/10/23 metoprolol succinate 50 mg 50 mg PO DAILY #90 tabs 09/10/23 tablet,extended release 24 hr insulin lispro 100 unit/mL See Protocol subcut QIDACHS #10 mL 09/12/23 subcutaneous solution (Admelog U-100 Insulin lispro) doxycycline monohydrate 100 mg 100 mg PO BID #14 caps 11/21/23 capsule oxycodone 5 mg tablet 5 mg PO Q6H PRN Pain, 11/21/23 Moderate(Pain Scale 4-6) #24 tabs cephalexin 500 mg capsule 500 mg PO Q12H #20 caps 12/01/23 oxycodone 10 mg tablet,crush 10 mg PO BID #14 tabs 12/01/23 resistant,extended release 12 hr (OxyContin) oxycodone-acetaminophen 5 mg-325 1 tab PO Q6H PRN pain #20 tabs 12/08/23 mg tablet (Percocet) Allergies Allergy/AdvReac Type Severity Reaction Status Date / Time No Known Allergies Allergy Verified 12/10/23 13:25 Review of Systems Review of Systems: Pertinent positives and negatives as stated in HPI [facility] Past Medical History Source: nursing notes reviewed Medical History Dry gangrene Peripheral arterial disease Atrial fibrillation Diabetic foot infection 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 Diabetes mellitus with retinopathy, with long-term current use of insulin PAD (peripheral artery disease) Heartburn symptom Amputation stump infection Major depression, recurrent Erectile dysfunction Dyslipidemia Amputation stump complication Intractable left heel pain Chronic 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 Type 2 diabetes mellitus with hyperglycemia Hyperlipidemia Chronic pancreatitis Essential hypertension Neuropathy Kidney calculus Alcohol abuse CAD (coronary artery disease) Arthritis Surgical History S/P angiogram of extremity (06/28/23) History of right below knee amputation Status post below-knee amputation S/P debridement Hx of lithotripsy Status post laparoscopic cholecystectomy Hx of heart artery stent Family History Family History Mother [place] (myocardial infarction), Onset Age: 64 Diabetes mellitus HTN (hypertension) Maternal Grandmother Diabetes mellitus Social History Social History Household Members: Spouse and Children Household Members Other:: and daughter Housing: Apartment Do you presently have visiting nurse or other home services: Yes Alcohol intake: former Comment: pt ambulates with crutches. Patient Tobacco Use Status: Former Tobacco user Quit Date: Jun 2023 Tobacco use type: Cigarette Cigarette Packs Per Day: 0.01 Cigarettes Per Day: 3 Years Smoked: 25+ Smoked in Last 30 Days: No e-Cigarette/Vaping Use: Never Used Second Hand Smoke Exposure: No Use of substances other than those prescribed or required for medical reasons: No Substance Use Type: Marijuana Advance Directives: Yes Advance Directives Information Provided: Yes Advance Directives on File: No Advance Directives Date on File: 04/17/21 service: No Current occupational status: unemployed and disabled Cognitive needs: No Hearing needs: No Vision needs: Yes Physical Exam ED Vital Signs: Vital Signs - 24 hr 12/10/23 13:21 12/10/23 15:55 Temperature 98.2 F 98.5 F Pulse Rate 68 69 Respiratory Rate 19 18 Blood Pressure 150/75 H 144/78 H Pulse Oximetry 99 98 Oxygen Delivery Method Room Air Room Air BMI result Body Mass Index 32.0 VITAL SIGNS: Reviewed. GENERAL: Well developed, well nourished, in no acute distress. HEAD: Normocephalic/atraumatic EYES: PERRLA, EOMI LUNGS: Normal breath sounds. No adventitious sounds or accessory muscle use. SpO2<98> CARDIOVASCULAR: Regular rate and rhythm without noted murmurs ABDOMEN: Soft, non-tender, non-distended with bowel sounds. MUSCULOSKELETAL: No tenderness, deformities, or effusions noted on gross inspection. EXTREMITIES: No cyanosis, clubbing or edema. LEFT FOOT: STATUS POST TMA, WELL APPROXIMATED, NO ERYTHEMA OR INDURATION AND NO EVIDENCE OF DEHISCENCE SKIN: Inspection of the skin reveals no rashes NEUROLOGIC: Alert and oriented x 4. Strength and sensation to light touch were grossly intact x 4. Medications Administered Discontinued Medications Generic Name Dose Route Start Last Admin Trade Name Alyssa PRN Reason Stop Dose Admin Bacitracin 1 appl 12/10/23 16:22 12/10/23 16:31 Bacitracin Oint 0.9 Gm Packet TOPICAL 12/10/23 16:23 1 appl ONCE ONE Administration Protocol Oxycodone HCl 5 mg 12/10/23 16:22 12/10/23 16:31 Oxycodone Hcl Immed Release 5 Mg Tablet PO 12/10/23 16:23 5 mg ONCE ONE Administration Medical Decision Making Medical Decision Making MDM Narrative: 58-YEAR-OLD MALE WHO PRESENTS FOR WOUND CHECK, WOUND APPEARS UNINFECTED AND NO EVIDENCE OF DEHISCENCE, PATIENT GIVEN PAIN MEDICATION AND FOOT REDRESSED. Differential Diagnosis Differential Diagnoses: The differential diagnosis associated with the presentation includes PLEASE SEE THE DISCUSSION ABOVE Admission/Observation Consideration of admission/observation: Escalation of care including admission/observation considered PLEASE SEE THE DISCUSSION ABOVE External Record Review External record reviewed: Outpatient record, Prior outpatient labs and Prior outpatient radiology Critical Care Time Critical Care Time Critical Care Time: Yes Total Critical Care Time: 30 Attestation: I PERSONALLY ATTEST TO THIS TIME SPENT TAKING CARE OF THE PATIENT. Discharge Plan Discharge Clinical Impression: Encounter for post surgical wound check Patient Disposition: Home, Self-Care Instructions: Wound Healing and Your Diet (ED) Additional Instructions: 1. Resume all home medications as prescribed. 2. Resume your wound care checks and follow-up as scheduled on Monday. Return to the ER for any worsening symptoms. Prescriptions: No Action (DME) Bedside commode See Rx Instructions .Route .MEDSUPPLY Qty: 1 0RF Rx Instructions: As directed (DME) walker with wheels See Rx Instructions .Route .MEDSUPPLY Qty: 1 0RF Rx Instructions: As directed (DME) pen needle, diabetic [BD Ultra-Fine Short Pen Needle] 31 gauge x 5/16 needle See Rx Instructions .ROUTE .COMPLEX Qty: 100 5RF Dose Instruction: USE MARÍA LO INDICADO BENNETT VECES AL LIZZIE ANTES DE LAS COMIDAS Rx Instructions: USE MARÍA LO INDICADO BENNETT VECES AL LIZZIE ANTES DE LAS COMIDAS (DME) recliner See Rx Instructions .Route .MEDSUPPLY Qty: 1 0RF Rx Instructions: As directed (DME) FreeStyle Frank 2 Hilliards Misc See Rx Instructions .Route Qty: 1 0RF Rx Instructions: As directed (DME) FreeStyle Frank 2 Sensor Kit See Rx Instructions .Route Qty: 2 8RF Rx Instructions: As directed change every 14 days aspirin 81 mg tablet,chewable 81 mg PO DAILY Qty: 90 1RF metoprolol succinate 50 mg tablet extended release 24 hr 50 mg PO DAILY Qty: 90 1RF famotidine 40 mg tablet 40 mg PO DAILY melatonin 5 mg Tablet 5 mg PO BEDTIME PRN (Reason: Sleep) insulin lispro [Admelog U-100 Insulin lispro] 100 unit/mL Solution See Protocol subcut QIDACHS Qty: 10 0RF Protocol: Insulin Correction Scale Less than or equal to 110 ---- Give (units): 0 111 to 150 Give (units): 0 151 to 200 Give (units): 2 201 to 250 Give (units): 4 251 to 300 Give (units): 6 301 to 350 Give (units): 8 Greater than 350 Give (units): 10 Call MD if Blood Glucose > : 350 amiodarone 200 mg tablet 200 mg PO BID pantoprazole 40 mg tablet,delayed release (DR/EC) 40 mg PO DAILY@0630 lidocaine 5 % adhesive patch,medicated 1 patch topical DAILY PRN (Reason: moderate pain) acetaminophen [Acetaminophen Extra Strength] 500 mg Tablet 1,000 mg PO Q6H PRN (Reason: Pain) insulin glargine [Lantus Solostar U-100 Insulin] 100 unit/mL (3 mL) insulin pen 34 unit subcut BEDTIME oxycodone [OxyContin] 10 mg tablet,oral only,ext.rel.12 hr 10 mg PO BID Qty: 14 0RF Rx Instructions: Partial Fill upon patient request. cephalexin 500 mg capsule 500 mg PO Q12H Qty: 20 0RF oxycodone-acetaminophen [Percocet] 5-325 mg tablet 1 tab PO Q6H PRN (Reason: pain) Qty: 20 0RF Rx Instructions: Partial Fill upon patient request. clopidogrel 75 mg tablet 75 mg PO DAILY dapagliflozin propanediol [Farxiga] 10 mg tablet 10 mg PO DAILY losartan 25 mg tablet 25 mg PO DAILY sertraline 50 mg tablet 75 mg PO BEDTIME spironolactone 25 mg tablet 25 mg PO DAILY tramadol 50 mg tablet 50 mg PO Q6H PRN (Reason: pain) oxycodone 5 mg Tablet 5 mg PO Q6H PRN (Reason: Pain, Moderate(Pain Scale 4-6)) Qty: 24 0RF Rx Instructions: Partial Fill upon patient request. doxycycline monohydrate 100 mg capsule 100 mg PO BID Qty: 14 0RF gabapentin 600 mg tablet 600 mg PO TID Qty: 90 4RF (DME) blood-glucose meter [FreeStyle Lite Meter] Kit See Rx Instructions .Route Rx Instructions: As directed (DME) FreeStyle Lite Strips Strip See Rx Instructions .Route Rx Instructions: As directed atorvastatin 80 mg tablet 80 mg PO BEDTIME Referrals: Shanta Haney MD [Primary Care Provider] - Print Language: German
[2023-12-10] MEDS: oxyCODONE HCl Immed Release 5 MG TABLET PO (16:31)
[2023-12-10] MEDS: Bacitracin Oint 0.9 GM PACKET 1 APPL TOPICAL (16:31)
--- NOTE | 2023-12-10 17:13 | PC.NURSE ---
BACITRACIN TO WOUND SITE AND DRESSING APPLIED.
--- NOTE | 2023-12-10 17:24 | PC.NURSE ---
PT PLAN IS FOR DISCHARGE HOME AND FOLLOW UP WITH WOUND CARE AND SURGICAL SERVICE, AWAITING EMS TRANSPORT
[2023-12-10 17:56] VITALS: BP 138/78; PULSE 69; RESP 16; TEMP 36.6
== END 2023-12-10 18:11 | disposition home or self-care (01) ==
PROVIDERS: Emergency Provider Student in an Organized Health Care Education/Training Program; PCP Internal Medicine
DX: Z47.81 Encounter for orthopedic aftercare following surgical amputation (principal); E11.42 Type 2 diabetes mellitus with diabetic polyneuropathy; I73.9 Peripheral vascular disease, unspecified; I10 Essential (primary) hypertension; I48.91 Unspecified atrial fibrillation; Z89.432 Acquired absence of left foot
CPT/HCPCS: 99284

== ENCOUNTER 2023-12-12 10:12 | Outpatient (AMB) | payer MEDICARE, SELFPAY ==
--- NOTE | 2023-12-12 10:15 | A.OFFVIS_ITS ---
Intake Intake Visit Reasons: 2 week transmet amp 11/27/2023 Intake Note: 2 week follow up Left Transmet amp 11/27/23, pt states he is having pain on the lateral side of the foot, sometimes the heel and ankle. VNA changes dressings monday, monday and Monday. Accompanied by: Son Allergies No Known Allergies Allergy (Verified 12/12/23 10:20) HPI 2 week transmet amp 11/27/2023 HPI Details Complex 58-year-old gentleman well known to me for prior endovascular intervention and trans met amputation. We received several calls throughout the weekend from visiting nursing. He has a poorly healing trans met amp. He now presents for follow-up. Does have issues with pain. Now presents for follow- up. [facility] Medical History (Updated 12/12/23 @ 11:15 by Berto Sheppard MD) PAD (peripheral artery disease) Dry gangrene Peripheral arterial disease Atrial fibrillation Diabetic foot infection 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 Diabetes mellitus with retinopathy, with long-term current use of insulin Heartburn symptom Amputation stump infection Major depression, recurrent Erectile dysfunction Dyslipidemia Amputation stump complication Intractable left heel pain Chronic 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 Type 2 diabetes mellitus with hyperglycemia Hyperlipidemia Chronic pancreatitis Essential hypertension Neuropathy Kidney calculus Alcohol abuse CAD (coronary artery disease) Arthritis Surgical History S/P angiogram of extremity (06/28/23) History of right below knee amputation Status post below-knee amputation S/P debridement Hx of lithotripsy Status post laparoscopic cholecystectomy Hx of heart artery stent Family History Mother [place] (myocardial infarction), Onset Age: 64 Diabetes mellitus HTN (hypertension) Maternal Grandmother Diabetes mellitus Social History Household Members: Spouse and Children Household Members Other:: and daughter Housing: Apartment Do you presently have visiting nurse or other home services: Yes Alcohol intake: former Comment: pt ambulates with crutches. Patient Tobacco Use Status: Former Tobacco user Quit Date: Jun 2023 Tobacco use type: Cigarette Cigarette Packs Per Day: 0.01 Cigarettes Per Day: 3 Years Smoked: 25+ e-Cigarette/Vaping Use: Never Used Second Hand Smoke Exposure: No Substance Use Type: Marijuana Advance Directives Date on File: 04/17/21 service: No Current occupational status: unemployed and disabled Cognitive needs: No Hearing needs: No Vision needs: Yes Review of Systems Const All systems reviewed & are unremarkable except as noted in HPI and below Reports no additional complaints ENT Reports Normal hearing present Card Denies chest pain, Denies chest pain at rest, Denies chest pain with activity and Denies pedal edema Resp Denies cough GI Denies abdominal pain Musc Denies abnormal gait, Denies muscle cramps and Denies radiating pain into limb Skin/Breast Denies skin ulcer and Denies wounds Neuro Reports Normal hearing present and Denies abnormal gait Psych Reports no additional complaints Physical Exam Const General: cooperative, healthy appearing and comfortable Orientation/consciousness: oriented to person, oriented to place and oriented to time HEENT Head: Yes normal to inspection Neck Neck: Yes normal visual inspection Carotids: no bruits Chest Chest palpation & inspection: normal inspection of the chest Resp Effort & Inspection: normal respiratory effort and able to speak in complete sentences Auscultation: clear to auscultation bilaterally, no crackles, no rales, no rhonchi and no wheezes Cardio Rate: regular rate Rhythm: regular rhythm Heart sounds: S1 normal heart sound present and S2 normal heart sound present Bruits: no carotid bruits Peripheral pulses: Peripheral pulses 2+ throughout GI Inspection: Yes normal to inspection Skin Other: Left trans met poorly healing. Only about 50% take with blackened eschar. [place] removed. Wounds: no wounds Hair: normal Neuro General: oriented to person, oriented to place and oriented to time Cranial nerves: Yes CN's II-XII intact bilaterally and Yes Normal hearing present Cognition (Neuro): normal cognition Motor exam (neuro): 5/5 motor strength present throughout Extrem Other: venous exam: No significant superficial varicosities or spider telangiectasias, minimal edema General: No clubbing, No cyanosis and No edema Psych Appearance: grossly normal Mental Status: mental status grossly normal Speech and movement: Normal speech and movement present Assessment & Plan Assessment & Plan (1) PAD (peripheral artery disease): Comment: 04/14/2021 - atherectomy and plasty of left SFA and popliteal artery, angioplasty of left anterior tibial posterior tibial and peroneal arteries 08/31/2021 - right BKA 11/29/2021 - revision right BKA 06/28/2023 - left anterior tibial plasty and perennial plasty and popliteal plasty 10/24/2023 - left great and 5th toe amputation 11/27/2023 - left transmetatarsal amputation Code(s): I73.9 - Peripheral vascular disease, unspecified Plan: Patient notes poorly healing left transmetatarsal amputation. I have discussed the pathophysiology of peripheral vascular disease with the patient. I have also discussed risk factor modification. I have reviewed the patient's arterial testing which reveals prior left leg below-knee disease. the patient would benefit from a left leg endovascular peripheral angiogram with possible angioplasty, stent, and/or atherectomy. This has been discussed in detail with the patient along with risks, benefits, and complications. This includes but is not limited to bleeding, infection, heart attack, need for emergent surgical repair, limb ischemia, blood vessel damage, bleeding, puncture, kidney injury, bruising, allergic reaction, and skin reaction. The patient demonstrates a clear understanding. We will schedule for the next appropriate time. Thank you for allowing us to assist in this patient's care. Coding Level of Care Code Est Pt Level 4 (62074) Diagnoses PAD (peripheral artery disease) I73.9
== END 2023-12-12 11:17 | disposition home or self-care (01) ==
PROVIDERS: PCP Internal Medicine; Visit Provider Surgery Vascular Surgery
DX: I73.9 Peripheral vascular disease, unspecified (principal)
CPT/HCPCS: 99024

== ENCOUNTER → 2023-12-13 06:56 | Outpatient (BNV) | payer MEDICARE, SELFPAY | PROVIDERS: PCP Internal Medicine; Visit Provider Surgery Vascular Surgery | DX: I73.9 Peripheral vascular disease, unspecified (principal) | CPT/HCPCS: 27880; 37228; 37232; 75625; 75710; 76937; 99024; 99152 ==

== ENCOUNTER 2023-12-13 11:45 | Inpatient (IN) | payer MEDICARE, SELFPAY ==
[2023-12-13] VITALS (12 sets, daily range): BP systolic 131–160; BP diastolic 60–89; PULSE 76–90; RESP 16–81; TEMP 36.2–37.2; O2SAT 96–100; BMI 32.5
[2023-12-13 08:21] LABS: MANUAL DIFF FLAG NO
[2023-12-13 08:29] LABS: Basophils Absolute Auto 0.1 X10*3/uL (0.0-0.2); Basophils Percent Auto 0.5 % (0-2); Eosinophils Absolute Auto 0.4 X10*3/uL (0.0-0.4); Eosinophils Percent Auto 3.3 % (0-4); Hematocrit 30.8 % (42.0-52.0); Hemoglobin 9.3 g/dl (14.0-18.0); Imm Gran Abs Auto 0.15 X10*3/uL (0.00-0.03); Imm Gran Pct Auto 1.3 % (0.0-0.4); Lymphocytes Percent Auto 17.7 % (20-40); Mean Corpuscular HGB Conc 30.2 g/dl (31.0-36.0); Mean Platelet Volume 9.6 fL (9.4-12.4); Monocytes Percent Auto 8.5 % (2-11); Neutrophils Absolute Auto 7.9 x10*3/uL (2.0-8.3); Neutrophils Percent Auto 68.7 % (45-73); Platelet Count 397 X10*3/uL (160-400); Red Blood Count 4.05 X10*6/uL (4.60-5.80); Red Cell Distribution Width 16.5 % (11.0-16.0); White Blood Count 11.5 X10*3/uL (4.8-10.8)
[2023-12-13 08:37] LABS: Blood Urea Nitrogen 20 mg/dL (9-16); Creatinine Clr Calc Pharmacy 111.6; Estimated Glomerular Filt Rate > 60
--- NOTE | 2023-12-13 11:29 | P.OP_ITS ---
Operative Note Operative Note Date of Service: 12/13/23 Narrative: Angiogram report from [facility] Preoperative diagnosis: Atherosclerosis of left lower extremity with nonhealing ulcer Postoperative diagnosis: Same Procedure: 1. Ultrasound-guided right common femoral access 2. Aortogram with left lower extremity runoff 3. Left anterior tibial and posterior tibial plasty Surgeon:Berto Sheppard M.D., FACS, RPVI Appointment Manager:None Anesthesia: Local with moderate conscious sedation. Total intraservice moderate sedation time was 56 minutes. I monitored the patient's level of consciousness and physiologic status continuously throughout the procedure. Specimens:none Drains:none Estimated blood loss: Less than 10 ml Implant: None Indications: Very pleasant 58-year-old gentleman who had a prior transmetatarsal amputation has nonhealing amputation site. Continues to be a source of pain and discomfort for him. On last ultrasound there was concern of below-knee disease. He now presents for endovascular intervention. The patient has signed the informed consent after reviewing risks, complications, benefits, and alternatives previously discussed with the patient. The patient was given the opportunity to ask any additional questions or voice any concerns. All questions were answered to the patient's satisfaction. Procedure in detail: Patient was brought to the angiography suite prior to which a time-out was called for patient identification and site verification. Bilateral groins were prepped and draped in the standard surgical fashion. Under ultrasound guidance right common femoral was punctured with micro puncture needle and wire. Subsequently a precision 4 [place]i sheath was then placed. Bentson wire was advanced to the level of the aorta. 6 [place]i Flush catheter was brought up and parked at the level of the renal arteries. Aortogram was then undertaken. Catheter was brought down to the level of the iliac bifurcation. Iliacs were subsequently imaged. Catheter was then brought in up and over to the left side SFA. Runoff study was then undertaken. We recognized that there was below-knee disease. At this time 5000 units of systemic heparin was administered. Up and over 6 [place]i sheath was then placed. We then brought in Advantage wire down to the below-knee location. We confirmed true lumen with a Navicross catheter instilled with contrast. We exchanged out for an 014 advantage wire. Over this we used a 2.5 x 40 balloon and 1st plasty the anterior tibial. This demonstrated good result we redirected the wire to the posterior tibial once again we confirmed true lumen once this was done we insufflated this area with a 2.5 x 40 balloon with 2 subsequent insufflations. Once this was all accomplished completion angiogram demonstrated good result catheter wire sheath was then brought back to the ipsilateral side. Celt closure device was deployed. Patient tolerated the procedure well. Returned to recovery with stable vitals. Interpretation of films: 1. Ultrasound demonstrates appropriate femoral puncture. Image of which was saved. 2. Aortogram demonstrates appropriate caliber aorta. Minimal disease. Appropriate take-off of the renals. 3. Iliac images demonstrate no significant disease 4. Left Leg Common femoral artery: Mild disease Profundus Femoris: No significant disease Superficial femoral artery: Mild disease Popliteal artery (p1,p2,p3): No significant disease Anterior tibial artery: Disease at the origin, post plasty good result Peroneal artery: Present but diminutive Posterior tibial artery: Disease at the origin post plasty good result Dorsalis pedis/plantar arch: Non-existent Conclusion: 1. Successful plasty of anterior tibial and posterior tibial arteries. Total occlusions at the level of the foot. Significant microvascular disease. 2. Anticoagulation status: Continue with aspirin and Plavix. 3. Patient will be admitted due to intractable pain This note is constructed using voice recognition software. While every effort has been made to ensure accuracy, electrician manager errors may have been included. Thank you for allowing me to participate in the care of your patient. Yours sincerely, Berto Sheppard MD, FACS, R.P.V.I. Angiogram report from [facility]
[2023-12-13] MEDS: Acetaminophen 325 MG TABLET 650 MG PO (11:33)
[2023-12-13] MEDS: Morphine Sulfate 4 MG/ML CARTRIDGE IVPUSH ×4 (11:34→19:35)
[2023-12-13] MEDS: oxyCODONE HCl Immed Release 5 MG TABLET PO ×2 (12:56→21:39)
[2023-12-13 13:46] LABS: Glucose, Whole Blood 179 mg/dL (60-115)
[2023-12-13] MEDS: 0.9 % Sodium Chloride 1,000 ML 100 ML IVCONT ×2 (14:02→23:12)
[2023-12-13] MEDS: Heparin Sodium,Porcine 5,000 UNIT/ML VIAL 5000 UNIT SUBCUT ×2 (14:03→19:34)
--- NOTE | 2023-12-13 16:16 | P.CONHOSP_ITS ---
History of Present Illness Data of Consult Service Date: 12/13/23 Primary Care Provider: Shanta Haney MD HPI Reason for consult: Medical management 58-year-old man with a history of diabetes mellitus type 2, peripheral arterial disease, right BKA, three-vessel CABG, multiple lower extremity digit amputations, hyperlipidemia, hypertension, GERD ; status post left transmetatarsal amputation, admitted by vascular surgery after left tibial angioplasty Patient is hemodynamically stable, elevated blood pressure noted. Reports moderate amount of pain to left lower extremity. Review of Systems 2 Review of Systems: Denies chest pain Denies shortness of breath Denies nausea vomiting diarrhea Denies fever chills Admits to pain left lower extremity COUNT INCLUDES [facility] Medical History (Updated 12/13/23 @ 16:21 by Hero Dunham DO) Atrial fibrillation Essential hypertension PAD (peripheral artery disease) Dry gangrene Peripheral arterial disease Diabetic foot infection 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 Diabetes mellitus with retinopathy, with long-term current use of insulin Heartburn symptom Amputation stump infection Major depression, recurrent Erectile dysfunction Dyslipidemia Amputation stump complication Intractable left heel pain Chronic 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 Type 2 diabetes mellitus with hyperglycemia Hyperlipidemia Chronic pancreatitis Neuropathy Kidney calculus Alcohol abuse CAD (coronary artery disease) Arthritis Family History Mother [place] (myocardial infarction), Onset Age: 64 Diabetes mellitus HTN (hypertension) Maternal Grandmother Diabetes mellitus Surgical History S/P angiogram of extremity (06/28/23) History of right below knee amputation Status post below-knee amputation S/P debridement Hx of lithotripsy Status post laparoscopic cholecystectomy Hx of heart artery stent Social History Household Members: Spouse Household Members Other:: and daughter Housing: Apartment Do you presently have visiting nurse or other home services: Yes Alcohol intake: former Comment: pt ambulates with crutches. Patient Tobacco Use Status: Former Tobacco user Quit Date: Jun 2023 Tobacco use type: Cigarette Cigarette Packs Per Day: 0.01 Cigarettes Per Day: 3 Years Smoked: 25+ e-Cigarette/Vaping Use: Never Used Second Hand Smoke Exposure: No Use of substances other than those prescribed or required for medical reasons: No Substance Use Type: Marijuana Currently Displaying Signs/Symptoms of Drug Intoxication Withdrawal: No Have you been hit, kicked, punched, or otherwise hurt by someone within the past year? If so, by whom?: No Do you feel safe in your current relationship?: Yes Is there a partner from a previous relationship who is making you feel unsafe now?: No Are you made to feel afraid or neglected: No Advance Directives: No Advance Directives Information Provided: Yes Advance Directives Date on File: 04/17/21 Do you have thoughts of harming others: None Do you have a plan to hurt others: No Plan Recently lost weight without trying: No Nutrition Risks: No Nutritional Risk Poor oral hygiene: No service: No Current occupational status: unemployed and disabled Cognitive needs: No Hearing needs: No Vision needs: Yes Meds Allergies Allergy/AdvReac Type Severity Reaction Status Date / Time No Known Allergies Allergy Verified 12/12/23 10:20 Active Medications: Current Medications Acetaminophen (Acetaminophen 325 Mg Tablet) 650 mg PO Q6H PRN PRN Reason: Pain, Mild (Pain Scale 1-3) Last Admin: 12/13/23 11:33 Dose: 650 mg Heparin Sodium (Porcine) (Heparin Sodium,Porcine 5,000 Unit/Ml Vial) 5,000 unit SUBCUT Q8H [facility] Last Admin: 12/13/23 14:03 Dose: 5,000 unit Sodium Chloride (Ns) 1,000 mls @ 100 mls/hr IVCONT .Q10H [facility] Last Admin: 12/13/23 14:10 Dose: Not Given Morphine Sulfate (Morphine Sulfate 4 Mg/Ml Cartridge) 4 mg IVPUSH Q2H PRN; Protocol PRN Reason: Pain, Severe (Pain Scale 7-10) Last Admin: 12/13/23 16:14 Dose: 4 mg Oxycodone HCl (Oxycodone Hcl Immed Release 5 Mg Tablet) 5 mg PO Q4H PRN PRN Reason: Pain, Moderate(Pain Scale 4-6) Last Admin: 12/13/23 12:56 Dose: 5 mg Sodium Chloride (0.9 % Sodium Chloride Flush 3 Ml Syringe) 3 ml IVFLUSH QSHIFT [facility] Last Admin: 12/13/23 14:09 Dose: Not Given Home Medications ?Medication ?Instructions ?Recorded ?Confirmed ?Last Taken ?Type blood sugar diagnostic (FreeStyle 12/01/22 06/28/23 Unknown History Lite Strips) blood-glucose meter (FreeStyle 12/01/22 06/28/23 Unknown History Lite Meter kit) atorvastatin 80 mg tablet 80 mg PO BEDTIME 06/20/23 11/27/23 11/17/23 History famotidine 40 mg tablet 40 mg PO DAILY heartburn 09/11/23 11/27/23 11/17/23 History melatonin 5 mg tablet 5 mg PO BEDTIME PRN Sleep 09/11/23 11/27/23 11/01/23 History acetaminophen 500 mg tablet 1,000 mg PO Q6H PRN Pain 10/18/23 11/27/23 11/01/23 History (Acetaminophen Extra Strength) amiodarone 200 mg tablet 200 mg PO BID 10/18/23 11/27/23 11/17/23 History insulin glargine 100 unit/mL (3 34 unit subcut BEDTIME 10/18/23 11/27/23 11/17/23 History mL) subcutaneous pen (Lantus Solostar U-100 Insulin) lidocaine 5 % topical patch 1 patch topical DAILY PRN moderate 10/18/23 11/27/23 10/18/23 History pain pantoprazole 40 mg tablet,delayed 40 mg PO DAILY@0630 10/18/23 11/27/23 11/17/23 History release clopidogrel 75 mg tablet 75 mg PO DAILY 11/18/23 11/27/23 11/23/23 History dapagliflozin propanediol 10 mg 10 mg PO DAILY 11/18/23 11/27/23 11/24/23 History tablet (Farxiga) losartan 25 mg tablet 25 mg PO DAILY 11/18/23 11/27/23 11/17/23 History sertraline 50 mg tablet 75 mg PO BEDTIME 11/18/23 11/27/23 11/17/23 History spironolactone 25 mg tablet 25 mg PO DAILY 11/18/23 11/27/23 11/17/23 History tramadol 50 mg tablet 50 mg PO Q6H PRN pain 11/18/23 11/27/23 Unknown History Physical Exam 2 Vital Signs and Narrative: Vital Signs: Last Vital Signs Temp 97.4 F 12/13/23 14:54 Pulse 82 12/13/23 14:54 Resp 18 12/13/23 14:54 BP 131/60 12/13/23 14:54 Pulse Ox 96 12/13/23 14:54 O2 Del Method Room Air 12/13/23 14:54 BMI result Body Mass Index 32.5 Const: Other: Awake alert uncomfortable appearing Resp: Other: Clear to auscultation bilaterally no rales rhonchi or wheezes Cardio: Other: No S4; positive S1-S2; no S3 murmurs rubs or gallops GI: Other: Soft nontender nondistended normoactive bowel sounds Extrem: Other: Left TMA (old) Results Labs 12/13/23 08:19 12/13/23 08:19 Labs: Laboratory Results - last 24 hr 12/13/23 12/13/23 08:19 13:42 MCV 76.0 L MCH 23.0 L MCHC 30.2 L RDW 16.5 H Plt Count 397 MPV 9.6 Immature Gran % (Auto) 1.3 H Neut % (Auto) 68.7 Lymph % (Auto) 17.7 L [place] % (Auto) 8.5 Eos % (Auto) 3.3 Baso % (Auto) 0.5 Lymph # (Auto) 2.0 [place] # (Auto) 1.0 Eos # (Auto) 0.4 Baso # (Auto) 0.1 Abs Immat Gran (auto) 0.15 H Absolute Neuts (auto) 7.9 Absolute Nucleated RBC 0.000 Nucleated RBC % (auto) 0.0 Estim Creat Clear Calc 111.6 Estimated GFR > 60 POC Glucose 179 H Assessment and Plan (1) Atrial fibrillation: Qualifiers: Atrial fibrillation type: unspecified Qualified Code(s): I48.91 - Unspecified atrial fibrillation Status: Acute (2) 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: Status: Acute Plan 58-year-old man status post left transmetatarsal amputation secondary to nonhealing left foot diabetic ulcer presents for vascular study left lower extremity 1.Left transmetatarsal amputation secondary to nonhealing left foot diabetic ulcer(admitted for pain control after a left lower extremity arteriogram) -Management as per vascular surgery team -Pain management 2.Hypertension -acceptable control on current therapies -adjust as indicated 3.Coronary artery disease/PVD -stable well compensated -Aspirin, statin, Plavix 4.History of atrial fibrillation (paroxysmal) -check EKG in a.m. -continue amiodarone for rate control 5.Diabetes mellitus type 2 -acceptable control on current therapies -lispro correctional scale -adjust as indicated Heparin Full code Will follow
[2023-12-13 16:23] LABS: Glucose, Whole Blood 174 mg/dL (60-115)
[2023-12-13] MEDS: Insulin Lispro 100 UNIT/ML 3 ML VIAL SUBCUT ×2 (17:13→21:40)
[2023-12-13] MEDS: 0.9 % Sodium Chloride Flush 3 ML SYRINGE IVFLUSH (19:34)
[2023-12-13 20:33] LABS: Glucose, Whole Blood 161 mg/dL (60-115)
[2023-12-13] MEDS: Melatonin 3 MG TABLET 6 MG PO (21:40)
[2023-12-14] MEDS: Morphine Sulfate 4 MG/ML CARTRIDGE IVPUSH ×7 (00:12→22:56)
[2023-12-14 00:42] VITALS: RESP 18
[2023-12-14 03:28] VITALS: BP 139/64; PULSE 90; RESP 16; TEMP 36.3; O2SAT 96
[2023-12-14] MEDS: Heparin Sodium,Porcine 5,000 UNIT/ML VIAL 5000 UNIT SUBCUT ×3 (03:33→19:44)
[2023-12-14] MEDS: oxyCODONE HCl Immed Release 5 MG TABLET PO (05:56)
--- NOTE | 2023-12-14 06:09 | PHA.MEDREC ---
Addendum entered by Gaurav Pulliam [facility] 12/14/23 06:09: Patient unsure of medications and unable to reach patients . Utilized patient discharge list from ~ month ago with claim history Original Note: Pharmacy Consult ? Medication Reconciliation Pharmacy has completed the medication reconciliation.
[2023-12-14 06:56] LABS: MANUAL DIFF FLAG NO
[2023-12-14 07:02] LABS: Basophils Absolute Auto 0.1 X10*3/uL (0.0-0.2); Basophils Percent Auto 0.5 % (0-2); Eosinophils Absolute Auto 0.3 X10*3/uL (0.0-0.4); Hematocrit 30.1 % (42.0-52.0); Imm Gran Abs Auto 0.13 X10*3/uL (0.00-0.03); Imm Gran Pct Auto 1.2 % (0.0-0.4); Lymphocytes Absolute Auto 2.2 X10*3/uL (1.2-4.9); Lymphocytes Percent Auto 19.9 % (20-40); Mean Corpuscular HGB Conc 29.9 g/dl (31.0-36.0); Mean Corpuscular Hemoglobin 23.1 pg (27.0-33.0); Mean Corpuscular Volume 77.2 fL (80.0-98.0); Mean Platelet Volume 10.1 fL (9.4-12.4); Monocytes Percent Auto 8.8 % (2-11); Neutrophils Absolute Auto 7.3 x10*3/uL (2.0-8.3); Neutrophils Percent Auto 66.6 % (45-73); Platelet Count 396 X10*3/uL (160-400); Red Cell Distribution Width 16.5 % (11.0-16.0)
[2023-12-14 07:18] LABS: Anion Gap 11 (12-20); Blood Urea Nitrogen 14 mg/dL (9-16); Calcium 8.6 mg/dL (8.4-10.2); Carbon Dioxide 25 mmol/L (22-29); Chloride 104 mmol/L (96-108); Creatinine Clr Calc Pharmacy 117.1; Estimated Glomerular Filt Rate > 60; Glucose Random 125 mg/dL (60-115); Potassium 4.3 mmol/L (3.3-5.1); Sodium 136 mmol/L (135-145)
[2023-12-14 07:43] VITALS: BP 171/84; PULSE 85; RESP 18; TEMP 36.4; O2SAT 96
[2023-12-14 07:44] LABS: Glucose, Whole Blood 120 mg/dL (60-115)
[2023-12-14] MEDS: 0.9 % Sodium Chloride 1,000 ML 100 ML IVCONT ×2 (08:54→22:08)
--- NOTE | 2023-12-14 09:26 | MHC.CM.PN ---
Addendum entered by Amber Krueger RN 12/14/23 14:28: CM rec'd message from SALLY Garcia at [facility] to discuss dc planning and DME. Returned call and LM. Radha: [phone] Original Note: IMM delivered. Patient is from home w/ and adult sons. Active w/ [facility] for SN/PT. Reports he has a daily TRAFFIC COORDINATOR, but cannot recall agency or hours. RBKA & LTMA - patient uses prosthesis and walker, w/c PRN. PCP Shanta Haney MD HCP on file and verified. DP: Goal is home, resume services. May need BLS. CM will continue to follow for dc needs.
[2023-12-14 11:11] LABS: Glucose, Whole Blood 199 mg/dL (60-115)
[2023-12-14] MEDS: oxyCODONE HCl Immed Release 5 MG TABLET 10 MG PO ×2 (11:15→22:35)
[2023-12-14] MEDS: Insulin Lispro 100 UNIT/ML 3 ML VIAL SUBCUT ×3 (11:16→22:09)
--- NOTE | 2023-12-14 12:10 | HO.VASCH&P ---
History of Present Illness History of Present Illness Date of Service: 12/14/23 Chief complaint: Nonhealing diabetic foot ulcer Narrative: Pierre West is a 58 year old male who has had a previous right BKA. Most recently he underwent a left transmetatarsal amputation which has been poorly healing. Been seen in the office regarding this. It continued to be a source of pain and discomfort for him. Yesterday he underwent endovascular intervention regarding that left lower extremity. We did improve flow down the below-knee vessels but there was concern about that trans met amp along with pain. He was subsequently admitted. Will plan for pain control and antibiotics. Review of Systems Review of Systems: Yes all other systems are reviewed and are negative Constitutional: Constitutional: Reports no additional constitutional complaints ENT: Reports Normal hearing present Cardiovascular: Cardiovascular: Denies chest pain, Denies chest pain at rest, Denies chest pain with activity and Denies pedal edema Respiratory: Respiratory: Denies cough Gastrointestinal: Gastrointestinal: Denies abdominal pain Musculoskeletal: Musculoskeletal: Denies abnormal gait, Denies muscle cramps and Denies radiating pain into limb Integumentary/Breasts: Skin/Breast: Denies skin ulcer and Denies wounds Neurologic: Reports Normal hearing present and Denies abnormal gait Psychiatric: Psychiatric: Reports no additional psychiatric complaints [facility] Past Medical History Medical History (Updated 12/13/23 @ 16:21 by Hero Dunham DO) Atrial fibrillation Essential hypertension PAD (peripheral artery disease) Dry gangrene Peripheral arterial disease Diabetic foot infection 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 Diabetes mellitus with retinopathy, with long-term current use of insulin Heartburn symptom Amputation stump infection Major depression, recurrent Erectile dysfunction Dyslipidemia Amputation stump complication Intractable left heel pain Chronic 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 Type 2 diabetes mellitus with hyperglycemia Hyperlipidemia Chronic pancreatitis Neuropathy Kidney calculus Alcohol abuse CAD (coronary artery disease) Arthritis Family History Family History Mother [place] (myocardial infarction), Onset Age: 64 Diabetes mellitus HTN (hypertension) Maternal Grandmother Diabetes mellitus Surgical History Surgical History S/P angiogram of extremity (06/28/23) History of right below knee amputation Status post below-knee amputation S/P debridement Hx of lithotripsy Status post laparoscopic cholecystectomy Hx of heart artery stent Social History Social History Household Members: Spouse Household Members Other:: and daughter Housing: Apartment Do you presently have visiting nurse or other home services: Yes Alcohol intake: former Comment: pt ambulates with crutches. Patient Tobacco Use Status: Former Tobacco user Quit Date: Jun 2023 Tobacco use type: Cigarette Cigarette Packs Per Day: 0.01 Cigarettes Per Day: 3 Years Smoked: 25+ e-Cigarette/Vaping Use: Never Used Second Hand Smoke Exposure: No Use of substances other than those prescribed or required for medical reasons: No Substance Use Type: Marijuana Currently Displaying Signs/Symptoms of Drug Intoxication Withdrawal: No Have you been hit, kicked, punched, or otherwise hurt by someone within the past year? If so, by whom?: No Do you feel safe in your current relationship?: Yes Is there a partner from a previous relationship who is making you feel unsafe now?: No Are you made to feel afraid or neglected: No Advance Directives: No Advance Directives Information Provided: Yes Advance Directives Date on File: 04/17/21 Do you have thoughts of harming others: None Do you have a plan to hurt others: No Plan Recently lost weight without trying: No Nutrition Risks: No Nutritional Risk Poor oral hygiene: No service: No Current occupational status: unemployed and disabled Cognitive needs: No Hearing needs: No Vision needs: Yes Meds Allergies Allergy/AdvReac Type Severity Reaction Status Date / Time No Known Allergies Allergy Verified 12/12/23 10:20 Active Medications: Current Medications Acetaminophen (Acetaminophen 325 Mg Tablet) 650 mg PO Q6H PRN PRN Reason: Pain, Mild (Pain Scale 1-3) Last Admin: 12/13/23 11:33 Dose: 650 mg Glucose (Glucose Gel 15 Gm Gel..Gram.) 15 gm PO Q15M PRN; Protocol PRN Reason: per Hypoglycemia Standing Ord. Heparin Sodium (Porcine) (Heparin Sodium,Porcine 5,000 Unit/Ml Vial) 5,000 unit SUBCUT Q8H [facility] Last Admin: 12/14/23 11:16 Dose: 5,000 unit Sodium Chloride (Ns) 1,000 mls @ 100 mls/hr IVCONT .Q10H [facility] Last Admin: 12/14/23 08:54 Dose: 100 mls/hr Dextrose (D10) 250 mls @ 750 mls/hr IV Q15M PRN; Protocol PRN Reason: per Hypoglycemia Standing Ord. Insulin Human Lispro (Insulin Lispro 100 Unit/Ml 3 Ml Vial) 0 unit SUBCUT QIDACHS [facility]; Protocol Last Admin: 12/14/23 11:16 Dose: 2 unit Melatonin (Melatonin 3 Mg Tablet) 6 mg PO BEDTIME PRN PRN Reason: Insomnia Last Admin: 12/13/23 21:40 Dose: 6 mg Morphine Sulfate (Morphine Sulfate 4 Mg/Ml Cartridge) 4 mg IVPUSH Q2H PRN; Protocol PRN Reason: Pain, Severe (Pain Scale 7-10) Last Admin: 12/14/23 08:51 Dose: 4 mg Oxycodone HCl (Oxycodone Hcl Immed Release 5 Mg Tablet) 10 mg PO Q4H PRN PRN Reason: Pain, Moderate(Pain Scale 4-6) Last Admin: 12/14/23 11:15 Dose: 10 mg Sodium Chloride (0.9 % Sodium Chloride Flush 3 Ml Syringe) 3 ml IVFLUSH [facility] Last Admin: 12/14/23 07:56 Dose: Not Given Home Medications ?Medication ?Instructions ?Recorded ?Confirmed ?Last Taken ?Type blood sugar diagnostic (FreeStyle 12/01/22 06/28/23 Unknown History Lite Strips) blood-glucose meter (FreeStyle 12/01/22 06/28/23 Unknown History Lite Meter kit) atorvastatin 80 mg tablet 80 mg PO BEDTIME 06/20/23 12/14/23 11/17/23 History famotidine 40 mg tablet 40 mg PO DAILY PRN heartburn 09/11/23 12/14/23 11/17/23 History melatonin 5 mg tablet 5 mg PO BEDTIME PRN Sleep 09/11/23 12/14/23 11/01/23 History amiodarone 200 mg tablet 200 mg PO BID 10/18/23 12/14/23 11/17/23 History insulin glargine 100 unit/mL (3 34 unit subcut BEDTIME 10/18/23 12/14/23 11/17/23 History mL) subcutaneous pen (Lantus Solostar U-100 Insulin) lidocaine 5 % topical patch 1 patch topical DAILY PRN moderate 10/18/23 12/14/23 10/18/23 History pain pantoprazole 40 mg tablet,delayed 40 mg PO DAILY@0630 10/18/23 12/14/23 11/17/23 History release clopidogrel 75 mg tablet 75 mg PO DAILY 11/18/23 12/14/23 11/23/23 History dapagliflozin propanediol 10 mg 10 mg PO DAILY 11/18/23 12/14/23 11/24/23 History tablet (Farxiga) losartan 25 mg tablet 25 mg PO DAILY 11/18/23 12/14/23 11/17/23 History sertraline 50 mg tablet 75 mg PO BEDTIME 11/18/23 12/14/23 11/17/23 History spironolactone 25 mg tablet 25 mg PO DAILY 11/18/23 12/14/23 11/17/23 History tramadol 50 mg tablet 50 mg PO Q6H PRN pain 11/18/23 12/14/23 Unknown History Physical Exam Vital Signs: Vital Signs: Last Vital Signs Temp 97.5 F 12/14/23 07:43 Pulse 85 12/14/23 07:43 Resp 18 12/14/23 07:43 BP 171/84 H 12/14/23 07:43 Pulse Ox 96 12/14/23 07:43 O2 Del Method Room Air 12/14/23 07:43 BMI result Body Mass Index 32.5 Const: General: cooperative, healthy appearing and comfortable Orientation/consciousness: oriented to person, oriented to place and oriented to time HEENT: Head: Yes normal to inspection Neck: Neck: Yes normal visual inspection Carotids: no bruits Chest: Chest palpation & inspection: normal inspection of the chest Resp: Effort & Inspection: normal respiratory effort and able to speak in complete sentences Auscultation: clear to auscultation bilaterally, no crackles, no rales, no rhonchi and no wheezes Cardio: Rate: regular rate Rhythm: regular rhythm Heart sounds: S1 normal heart sound present and S2 normal heart sound present Bruits: no carotid bruits Peripheral pulses: Peripheral pulses 2+ throughout GI: Inspection: Yes normal to inspection Skin: Other: Left trans met 50% take with dry darkened areas along the incision line. Wounds: no wounds Hair: normal Neuro: General: oriented to person, oriented to place and oriented to time Cranial nerves: Yes CN's II-XII intact bilaterally and Yes Normal hearing present Cognition (Neuro): normal cognition Motor exam (neuro): 5/5 motor strength present throughout Extrem: Other: venous exam: No significant superficial varicosities or spider telangiectasias, minimal edema General: No clubbing, No cyanosis and No edema Psych: Appearance: grossly normal Mental Status: mental status grossly normal Speech and movement: Normal speech and movement present Results Results Labs: Short CBC 12/14/23 Range/Units 06:53 WBC 11.0 H (4.8-10.8) X10*3/uL Hgb 9.0 L (14.0-18.0) g/dl Hct 30.1 L (42.0-52.0) % Plt Count 396 (160-400) X10*3/uL BMP 12/14/23 06:53 Sodium 136 Potassium 4.3 Chloride 104 Carbon Dioxide 25 BUN 14 Creatinine 0.81 Calcium 8.6 Assessment and Plan (1) PAD (peripheral artery disease): Status: Acute Plan Patient with significant peripheral vascular disease and nonhealing trans met. Will plan for pain control and antibiotics. He will be admitted. I did discuss that if I do not have good improvement he is at high risk for BKA. In agreement. We will observe over the next few days and if not improved will consider BKA at that point. Thank you to the hospitalist for their input. If any questions or concerns please do not hesitate to contact us Quality Stroke Does the patient have a stroke diagnosis?: No VTE Prior VTE?: No VTE Risk Level:: Surgical - very high VTE Device Contraindication: Procedure Contraindicated VTE Drug Contraindication: N/A - Med Ordered Procedures Date of Service Date of Service: 12/14/23
[2023-12-14] MEDS: Aspirin 81 MG TAB.CHEW PO (13:44)
[2023-12-14] MEDS: Clopidogrel Bisulfate 75 MG TABLET PO (13:44)
--- NOTE | 2023-12-14 13:54 | P.PNIM_ITS ---
Subjective Subjective Date of Service: 12/14/23 Interval History: No acute issues overnight. Pain control poor Review of Systems Denies chest pain Denies shortness of breath Denies nausea vomiting diarrhea Denies fever chills Admits to pain left lower extremity Physical Exam 2 Vital Signs: Vital Signs: Last Vital Signs Temp 97.5 F 12/14/23 07:43 Pulse 85 12/14/23 07:43 Resp 18 12/14/23 07:43 BP 171/84 H 12/14/23 07:43 Pulse Ox 96 12/14/23 07:43 O2 Del Method Room Air 12/14/23 07:43 BMI result Body Mass Index 32.5 Const: Other: Awake alert uncomfortable appearing Resp: Other: Clear to auscultation bilaterally no rales rhonchi or wheezes Cardio: Other: No S4; positive S1-S2; no S3 murmurs rubs or gallops GI: Other: Soft nontender nondistended normoactive bowel sounds Extrem: Other: Left TMA (old) Objective Data Active Medications Acetaminophen (Acetaminophen 325 Mg Tablet) 650 mg PO Q6H PRN PRN Reason: Pain, Mild (Pain Scale 1-3) Last Admin: 12/13/23 11:33 Dose: 650 mg Documented By: WINSTON Aspirin (Aspirin 81 Mg Tab.Chew) 81 mg PO DAILY [facility] Last Admin: 12/14/23 13:44 Dose: 81 mg Documented By: MAN Clopidogrel Bisulfate (Clopidogrel Bisulfate 75 Mg Tablet) 75 mg PO DAILY [facility] Last Admin: 12/14/23 13:44 Dose: 75 mg Documented By: MAN Glucose (Glucose Gel 15 Gm Gel..Gram.) 15 gm PO Q15M PRN; Protocol PRN Reason: per Hypoglycemia Standing Ord. Heparin Sodium (Porcine) (Heparin Sodium,Porcine 5,000 Unit/Ml Vial) 5,000 unit SUBCUT Q8H [facility] Last Admin: 12/14/23 11:16 Dose: 5,000 unit Documented By: MAN Sodium Chloride (Ns) 1,000 mls @ 100 mls/hr IVCONT .Q10H [facility] Last Admin: 12/14/23 08:54 Dose: 100 mls/hr Documented By: MAN Dextrose (D10) 250 mls @ 750 mls/hr IV Q15M PRN; Protocol PRN Reason: per Hypoglycemia Standing Ord. Insulin Human Lispro (Insulin Lispro 100 Unit/Ml 3 Ml Vial) [facility]; Protocol Last Admin: 12/14/23 11:16 Dose: 2 unit Documented By: MAN Melatonin (Melatonin 3 Mg Tablet) 6 mg PO BEDTIME PRN PRN Reason: Insomnia Last Admin: 12/13/23 21:40 Dose: 6 mg Documented By: SILVIA Morphine Sulfate (Morphine Sulfate 4 Mg/Ml Cartridge) 4 mg IVPUSH Q2H PRN; Protocol PRN Reason: Pain, Severe (Pain Scale 7-10) Last Admin: 12/14/23 13:44 Dose: 4 mg Documented By: MAN Oxycodone HCl (Oxycodone Hcl Immed Release 5 Mg Tablet) 10 mg PO Q4H PRN PRN Reason: Pain, Moderate(Pain Scale 4-6) Last Admin: 12/14/23 11:15 Dose: 10 mg Documented By: AMN Sodium Chloride (0.9 % Sodium Chloride Flush 3 Ml Syringe) 3 ml IVFLUSH [facility] Last Admin: 12/14/23 07:56 Dose: Not Given Documented By: MAN Non-Admin Reason: IV Running Labs 12/14/23 06:53 12/14/23 06:53 Labs: Laboratory Results - last 24 hr 12/13/23 12/13/23 12/14/23 16:20 20:28 06:53 MCV 77.2 L MCH 23.1 L MCHC 29.9 L RDW 16.5 H Plt Count 396 MPV 10.1 Immature Gran % (Auto) 1.2 H Neut % (Auto) 66.6 Lymph % (Auto) 19.9 L [place] % (Auto) 8.8 Eos % (Auto) 3.0 Baso % (Auto) 0.5 Lymph # (Auto) 2.2 Alexander # (Auto) 1.0 Eos # (Auto) 0.3 Baso # (Auto) 0.1 Abs Immat Gran (auto) 0.13 H Absolute Neuts (auto) 7.3 Absolute Nucleated RBC 0.000 Nucleated RBC % (auto) 0.0 Anion Gap 11 L Estim Creat Clear Calc 117.1 Estimated GFR > 60 POC Glucose 174 H 161 H Random Glucose 125 H Calcium 8.6 12/14/23 12/14/23 07:25 11:06 MCV MCH MCHC RDW Plt Count MPV Immature Gran % (Auto) Neut % (Auto) Lymph % (Auto) Alexander % (Auto) Eos % (Auto) Baso % (Auto) Lymph # (Auto) Alexander # (Auto) Eos # (Auto) Baso # (Auto) Abs Immat Gran (auto) Absolute Neuts (auto) Absolute Nucleated RBC Nucleated RBC % (auto) Anion Gap Estim Creat Clear Calc Estimated GFR POC Glucose 120 H 199 H Random Glucose Calcium Assessment and Plan (1) Essential hypertension: Status: Acute (2) Atrial fibrillation: Status: Acute (3) PAD (peripheral artery disease): Status: Acute Plan 58-year-old man status post left transmetatarsal amputation secondary to nonhealing left foot diabetic ulcer presents for vascular study left lower extremity 1.Left transmetatarsal amputation secondary to nonhealing left foot diabetic ulcer(admitted for pain control after a left lower extremity arteriogram) -Management as per vascular surgery team -Pain management adjusted -vanco/Zosyn (1) 2.Hypertension -acceptable control on current therapies -adjust as indicated 3.Coronary artery disease/PVD -stable well compensated -Aspirin, statin, Plavix 4.History of atrial fibrillation (paroxysmal) -check EKG in a.m. -continue amiodarone for rate control 5.Diabetes mellitus type 2 -acceptable control on current therapies -lispro correctional scale -adjust as indicated Heparin Full code Will follow Quality Stroke Does the patient have a stroke diagnosis?: No VTE Prior VTE?: No VTE Risk Level:: Surgical - very high VTE Device Contraindication: Procedure Contraindicated VTE Drug Contraindication: N/A - Med Ordered
[2023-12-14] MEDS: Piperacillin Sodium/Tazobactam 4.5 GM in 0.9 % Sodium Chloride 100 ML IV ×2 (14:24→22:08)
[2023-12-14] MEDS: vancomycin/NS 2,000 MG/500 ML PLAST..BAG 250 MG IV (14:48)
[2023-12-14 15:07] VITALS: BP 121/58; PULSE 83; RESP 18; TEMP 36.4; O2SAT 97
--- NOTE | 2023-12-14 15:10 | PHA.PROG ---
Admission Date/Time: December 13, 2023 11:45 Indication: Bone and Joint Weight in k.79 kg Serum Creatinine - Last 168 Hours 12/13/23 12/14/23 08:19 06:53 Creatinine 0.85 0.81 Estimated CrCl and GFR - Last 168 Hours 12/13/23 12/14/23 08:19 06:53 Estim Creat Clear Calc 111.6 117.1 Estimated GFR > 60 > 60 Vancomycin Loading Dose: 2000 Current Vancomycin Dosing Regimen: 1500 q12h Vancomycin Monitoring using AUC goal of 400 - 600 range with trough as surrogate marker: 579 Date and Time for next Vancomycin Level to be drawn: 12/14 @1300 Pharmacist Comments on Vancomycin Plan: plan was to give patient more aggressive treatment per indication and get a level after 3 doses, however pharmacy will not be open to monitor level therefore getting the level after 2 doses to ensure safety and efficacy as I anticipate patient will be at AUC quickly due to the 15 mg/kg Q12H dosing. Vancomycin dosing will take advantage of [employer] as a clinical decision support tool that uses Bayesian modeling to calculate individual patient's pharmacokinetic parameters and forecast the patient's drug concentration time course with the target goal AUC 24 range of 400 - 600 mg/L/hr.
[2023-12-14 16:23] LABS: Glucose, Whole Blood 218 mg/dL (60-115)
[2023-12-14 20:00] VITALS: BP 159/83; PULSE 80; RESP 18; TEMP 36.2; O2SAT 98
[2023-12-14 22:06] LABS: Glucose, Whole Blood 196 mg/dL (60-115)
[2023-12-14] MEDS: 0.9 % Sodium Chloride Flush 3 ML SYRINGE IVFLUSH (22:10)
[2023-12-14] MEDS: Melatonin 3 MG TABLET 6 MG PO (22:35)
[2023-12-15 03:01] VITALS: BP 158/72; PULSE 85; RESP 18; TEMP 36.6; O2SAT 96
[2023-12-15] MEDS: vancomycin HCL 1,500 MG in 0.9 % Sodium Chloride 500 ML 333.33 MG IV ×2 (03:25→15:40)
[2023-12-15] MEDS: Heparin Sodium,Porcine 5,000 UNIT/ML VIAL 5000 UNIT SUBCUT ×3 (03:25→19:49)
[2023-12-15] MEDS: Morphine Sulfate 4 MG/ML CARTRIDGE IVPUSH ×9 (03:25→22:39)
[2023-12-15] MEDS: oxyCODONE HCl Immed Release 5 MG TABLET 10 MG PO ×2 (04:19→14:21)
[2023-12-15] MEDS: Piperacillin Sodium/Tazobactam 4.5 GM in 0.9 % Sodium Chloride 100 ML IV ×3 (05:53→22:39)
[2023-12-15 07:03] LABS: Glucose, Whole Blood 129 mg/dL (60-115)
[2023-12-15 07:18] LABS: Creatinine Clr Calc Pharmacy 124.8; Estimated Glomerular Filt Rate > 60
[2023-12-15 07:31] VITALS: BP 147/67; PULSE 82; RESP 18; TEMP 36.2; O2SAT 97
[2023-12-15] MEDS: Clopidogrel Bisulfate 75 MG TABLET PO (07:59)
[2023-12-15] MEDS: Aspirin 81 MG TAB.CHEW PO (07:59)
--- NOTE | 2023-12-15 10:51 | P.PNVS_ITS ---
Subjective Subjective Date of Service: 12/15/23 Patient reports: no new complaints and feels better Interval history: 58-year-old gentleman presents for follow-up regarding nonhealing transmetatarsal amputation. Continues to report a fair amount of pain. Fortunately this is intractable pain. He has been on antibiotics of vanco and Zosyn. No significant improvement. Now for routine follow-up. Physical Exam 2 Vital Signs: Vital Signs: Last Vital Signs Temp 97.2 F 12/15/23 07:31 Pulse 82 12/15/23 07:31 Resp 18 12/15/23 07:31 BP 147/67 H 12/15/23 07:31 Pulse Ox 97 12/15/23 07:31 O2 Del Method Room Air 12/15/23 07:31 BMI result Body Mass Index 32.5 Const: General: cooperative, healthy appearing and comfortable Orientation/consciousness: oriented to person, oriented to place and oriented to time HEENT: Head: Yes normal to inspection Neck: Neck: Yes normal visual inspection Carotids: no bruits Chest: Chest palpation & inspection: normal inspection of the chest Resp: Effort & Inspection: normal respiratory effort and able to speak in complete sentences Auscultation: clear to auscultation bilaterally, no crackles, no rales, no rhonchi and no wheezes Cardio: Rate: regular rate Rhythm: regular rhythm Heart sounds: S1 normal heart sound present and S2 normal heart sound present Bruits: no carotid bruits Peripheral pulses: Peripheral pulses 2+ throughout GI: Inspection: Yes normal to inspection Skin: Other: Proximally 50% take of left flap Wounds: no wounds Hair: normal Neuro: General: oriented to person, oriented to place and oriented to time Cranial nerves: Yes CN's II-XII intact bilaterally and Yes Normal hearing present Cognition (Neuro): normal cognition Motor exam (neuro): 5/5 motor strength present throughout Extrem: Other: venous exam: No significant superficial varicosities or spider telangiectasias, minimal edema General: No clubbing, No cyanosis and No edema Psych: Appearance: grossly normal Mental Status: mental status grossly normal Speech and movement: Normal speech and movement present Progress Note: A&P Assessment and plan (1) PAD (peripheral artery disease): Status: Acute Assessment and Plan: In short patient has nonhealing transmetatarsal amputation. It continues to be a source of pain and discomfort for him. We will see how this does through the weekend. I am suspicious that he may require an amputation of that leg. We will continue to monitor his status. Should an amputation be required will schedule for early next week. Thank you for allowing us to assist in his care. Time Spent With Patient Time: Total time managing care of this patient today ____ minutes. Procedures Date of Service Date of Service: 12/15/23 Quality Stroke Does the patient have a stroke diagnosis?: No VTE Prior VTE?: No VTE Risk Level:: Surgical - very high VTE Device Contraindication: Procedure Contraindicated VTE Drug Contraindication: N/A - Med Ordered
--- NOTE | 2023-12-15 10:55 | MHC.CM.PN ---
EMR reviewed. Per MD rounds patient not medically cleared for dc at this time. CM will continue to follow.
[2023-12-15 11:20] LABS: Glucose, Whole Blood 176 mg/dL (60-115)
[2023-12-15] MEDS: Insulin Lispro 100 UNIT/ML 3 ML VIAL SUBCUT ×3 (11:43→19:49)
[2023-12-15 13:24] LABS: Vancomycin Random 14.5 mcg/mL (15-20)
--- NOTE | 2023-12-15 13:39 | HE.PHANOTE ---
RE BETTIE Patients level came back this morning at 14.5. Will continue current dose for 2 more doses. Next level tomorrow 12/15 @1300
--- NOTE | 2023-12-15 14:25 | P.PNIM_ITS ---
Subjective Subjective Date of Service: 12/15/23 Interval History: No acute medical issues. Pain management acceptable Review of Systems Denies chest pain Denies shortness of breath Denies nausea vomiting diarrhea Denies fever chills Admits to pain left lower extremity Physical Exam 2 Vital Signs: Vital Signs: Last Vital Signs Temp 97.2 F 12/15/23 07:31 Pulse 82 12/15/23 07:31 Resp 18 12/15/23 07:31 BP 147/67 H 12/15/23 07:31 Pulse Ox 97 12/15/23 07:31 O2 Del Method Room Air 12/15/23 07:31 BMI result Body Mass Index 32.5 Const: Other: Awake alert uncomfortable appearing Resp: Other: Clear to auscultation bilaterally no rales rhonchi or wheezes Cardio: Other: No S4; positive S1-S2; no S3 murmurs rubs or gallops GI: Other: Soft nontender nondistended normoactive bowel sounds Extrem: Other: Left TMA (old) Objective Data Active Medications Acetaminophen (Acetaminophen 325 Mg Tablet) 650 mg PO Q6H PRN PRN Reason: Pain, Mild (Pain Scale 1-3) Last Admin: 12/13/23 11:33 Dose: 650 mg Documented By: WINSTON Aspirin (Aspirin 81 Mg Tab.Chew) 81 mg PO DAILY [facility] Last Admin: 12/15/23 07:59 Dose: 81 mg Documented By: ANISHA Clopidogrel Bisulfate (Clopidogrel Bisulfate 75 Mg Tablet) 75 mg PO DAILY [facility] Last Admin: 12/15/23 07:59 Dose: 75 mg Documented By: ANISHA Glucose (Glucose Gel 15 Gm Gel..Gram.) 15 gm PO Q15M PRN; Protocol PRN Reason: per Hypoglycemia Standing Ord. Heparin Sodium (Porcine) (Heparin Sodium,Porcine 5,000 Unit/Ml Vial) 5,000 unit SUBCUT Q8H [facility] Last Admin: 12/15/23 11:42 Dose: 5,000 unit Documented By: GAB Dextrose (D10) 250 mls @ 750 mls/hr IV Q15M PRN; Protocol PRN Reason: per Hypoglycemia Standing Ord. Piperacillin Sod/Tazobactam (Sod 4.5 gm/ Sodium Chloride) 100 mls @ 200 mls/hr IV Q8H [facility] Last Infusion: 12/15/23 13:36 Dose: Infused Documented By: GAB Vancomycin HCl 1,500 mg/ (Sodium Chloride) 500 mls @ 333.333 mls/hr IV Q12H [facility] Last Infusion: 12/15/23 05:02 Dose: Infused Documented By: KATINA Insulin Human Lispro (Insulin Lispro 100 Unit/Ml 3 Ml Vial) 0 unit SUBCUT QIDACHS [facility]; Protocol Last Admin: 12/15/23 11:43 Dose: 2 unit Documented By: GAB Melatonin (Melatonin 3 Mg Tablet) 6 mg PO BEDTIME PRN PRN Reason: Insomnia Last Admin: 12/14/23 22:35 Dose: 6 mg Documented By: KATINA Morphine Sulfate (Morphine Sulfate 4 Mg/Ml Cartridge) 4 mg IVPUSH Q2H PRN; Protocol PRN Reason: Pain, Severe (Pain Scale 7-10) Last Admin: 12/15/23 12:59 Dose: 4 mg Documented By: GAB Oxycodone HCl (Oxycodone Hcl Immed Release 5 Mg Tablet) 10 mg PO Q4H PRN PRN Reason: Pain, Moderate(Pain Scale 4-6) Last Admin: 12/15/23 14:21 Dose: 10 mg Documented By: ANISHA Pharmacy Consult (Consult Rx Vancomycin Dosing) 1 each MISCELLANE DAILY PRN PRN Reason: Consult order Polyethylene Glycol (Polyethylene Glycol 3350 17 Gm Powd.Pack) 17 gm PO DAILY PRN PRN Reason: Constipation Sodium Chloride (0.9 % Sodium Chloride Flush 3 Ml Syringe) 3 ml IVFLUSH [facility] Last Admin: 12/15/23 07:08 Dose: Not Given Documented By: GAB Non-Admin Reason: IV Running Labs 12/14/23 06:53 12/15/23 05:52 Labs: Laboratory Results - last 24 hr 12/14/23 12/14/23 12/15/23 16:18 20:22 05:52 Hold Purple Top SEE NOTE Estim Creat Clear Calc 124.8 Estimated GFR > 60 POC Glucose 218 H 196 H Random Vancomycin 12/15/23 12/15/23 12/15/23 06:51 11:12 12:56 Hold Purple Top Estim Creat Clear Calc Estimated GFR POC Glucose 129 H 176 H Random Vancomycin 14.5 L Assessment and Plan (1) Essential hypertension: Status: Acute (2) Atrial fibrillation: Status: Acute Plan 58-year-old man status post left transmetatarsal amputation secondary to nonhealing left foot diabetic ulcer presents for vascular study left lower extremity 1.Left transmetatarsal amputation secondary to nonhealing left foot diabetic ulcer(admitted for pain control after a left lower extremity arteriogram) -Management as per vascular surgery team -Pain management adjusted -vanco/Zosyn (2) 2.Hypertension -acceptable control on current therapies -adjust as indicated 3.Coronary artery disease/PVD -stable well compensated -Aspirin, statin, Plavix 4.History of atrial fibrillation (paroxysmal) -check EKG in a.m. -continue amiodarone for rate control 5.Diabetes mellitus type 2 -acceptable control on current therapies -lispro correctional scale -adjust as indicated Heparin Full code Will follow Quality Stroke Does the patient have a stroke diagnosis?: No VTE Prior VTE?: No VTE Risk Level:: Surgical - very high VTE Device Contraindication: Procedure Contraindicated VTE Drug Contraindication: N/A - Med Ordered
[2023-12-15 15:24] VITALS: BP 162/75; PULSE 84; RESP 18; TEMP 37.1; O2SAT 98
[2023-12-15] MEDS: polyethylene glycoL 3350 17 GM POWD.PACK PO (15:40)
[2023-12-15 16:12] LABS: Glucose, Whole Blood 194 mg/dL (60-115)
[2023-12-15 19:33] VITALS: BP 157/68; PULSE 81; RESP 16; TEMP 36.7; O2SAT 94
[2023-12-15 19:41] LABS: Glucose, Whole Blood 195 mg/dL (60-115)
[2023-12-15] MEDS: 0.9 % Sodium Chloride Flush 3 ML SYRINGE IVFLUSH (19:47)
[2023-12-16] MEDS: Morphine Sulfate 4 MG/ML CARTRIDGE IVPUSH ×9 (00:51→22:11)
[2023-12-16 02:56] VITALS: BP 164/69; PULSE 84; RESP 16; TEMP 36.6; O2SAT 94
[2023-12-16] MEDS: vancomycin HCL 1,500 MG in 0.9 % Sodium Chloride 500 ML 333.33 MG IV ×2 (03:19→14:45)
[2023-12-16] MEDS: Heparin Sodium,Porcine 5,000 UNIT/ML VIAL 5000 UNIT SUBCUT ×3 (03:20→20:32)
[2023-12-16] MEDS: Piperacillin Sodium/Tazobactam 4.5 GM in 0.9 % Sodium Chloride 100 ML IV ×3 (06:02→20:32)
[2023-12-16 07:04] LABS: Estimated Glomerular Filt Rate > 60
[2023-12-16 07:16] VITALS: BP 174/85; PULSE 90; RESP 18; TEMP 36.7; O2SAT 94
[2023-12-16 07:22] LABS: Glucose, Whole Blood 155 mg/dL (60-115)
[2023-12-16] MEDS: Aspirin 81 MG TAB.CHEW PO (08:02)
[2023-12-16] MEDS: Insulin Lispro 100 UNIT/ML 3 ML VIAL SUBCUT ×4 (08:02→20:40)
[2023-12-16] MEDS: polyethylene glycoL 3350 17 GM POWD.PACK PO (08:11)
[2023-12-16] MEDS: Clopidogrel Bisulfate 75 MG TABLET PO (08:19)
[2023-12-16 11:29] LABS: Glucose, Whole Blood 181 mg/dL (60-115)
--- NOTE | 2023-12-16 13:56 | HO.PM.IMPN ---
Subjective Subjective Date of Service: 12/16/23 Interval History: Pain control adequate. Remains afebrile Review of Systems Denies chest pain Denies shortness of breath Denies nausea vomiting diarrhea Denies fever chills Admits to pain left lower extremity Physical Exam Vital Signs: Vital Signs: Last Vital Signs Temp 98.0 F 12/16/23 07:16 Pulse 90 12/16/23 07:16 Resp 18 12/16/23 07:16 BP 174/85 H 12/16/23 07:16 Pulse Ox 94 12/16/23 07:16 O2 Del Method Room Air 12/16/23 07:16 BMI result Body Mass Index 32.5 Const: Other: Awake alert uncomfortable appearing Resp: Other: Clear to auscultation bilaterally no rales rhonchi or wheezes Cardio: Other: No S4; positive S1-S2; no S3 murmurs rubs or gallops GI: Other: Soft nontender nondistended normoactive bowel sounds Extrem: Other: Left TMA (old) Objective Data Active Medications Acetaminophen (Acetaminophen 325 Mg Tablet) 650 mg PO Q6H PRN PRN Reason: Pain, Mild (Pain Scale 1-3) Last Admin: 12/13/23 11:33 Dose: 650 mg Documented By: WINSTON Aspirin (Aspirin 81 Mg Tab.Chew) 81 mg PO DAILY [facility] Last Admin: 12/16/23 08:02 Dose: 81 mg Documented By: KESHIA Clopidogrel Bisulfate (Clopidogrel Bisulfate 75 Mg Tablet) 75 mg PO DAILY [facility] Last Admin: 12/16/23 08:19 Dose: 75 mg Documented By: KESHIA Glucose (Glucose Gel 15 Gm Gel..Gram.) 15 gm PO Q15M PRN; Protocol PRN Reason: per Hypoglycemia Standing Ord. Heparin Sodium (Porcine) (Heparin Sodium,Porcine 5,000 Unit/Ml Vial) 5,000 unit SUBCUT Q8H [facility] Last Admin: 12/16/23 11:52 Dose: 5,000 unit Documented By: KESHIA Dextrose (D10) 250 mls @ 750 mls/hr IV Q15M PRN; Protocol PRN Reason: per Hypoglycemia Standing Ord. Piperacillin Sod/Tazobactam (Sod 4.5 gm/ Sodium Chloride) 100 mls @ 200 mls/hr IV Q8H [facility] Last Admin: 12/16/23 13:47 Dose: 200 mls/hr Documented By: KESHIA Vancomycin HCl 1,500 mg/ (Sodium Chloride) 500 mls @ 333.333 mls/hr IV Q12H [facility] Last Infusion: 12/16/23 05:26 Dose: Infused Documented By: MATTHEW Insulin Human Lispro (Insulin Lispro 100 Unit/Ml 3 Ml Vial) 0 unit SUBCUT QIDACHS [facility]; Protocol Last Admin: 12/16/23 11:52 Dose: 2 unit Documented By: KESHIA Melatonin (Melatonin 3 Mg Tablet) 6 mg PO BEDTIME PRN PRN Reason: Insomnia Last Admin: 12/14/23 22:35 Dose: 6 mg Documented By: KATINA Morphine Sulfate (Morphine Sulfate 4 Mg/Ml Cartridge) 4 mg IVPUSH Q2H PRN; Protocol PRN Reason: Pain, Severe (Pain Scale 7-10) Last Admin: 12/16/23 11:52 Dose: 4 mg Documented By: KESHIA Oxycodone HCl (Oxycodone Hcl Immed Release 5 Mg Tablet) 10 mg PO Q4H PRN PRN Reason: Pain, Moderate(Pain Scale 4-6) Last Admin: 12/15/23 14:21 Dose: 10 mg Documented By: ANISHA Pharmacy Consult (Consult Rx Vancomycin Dosing) 1 each MISCELLANE DAILY PRN PRN Reason: Consult order Polyethylene Glycol (Polyethylene Glycol 3350 17 Gm Powd.Pack) 17 gm PO DAILY PRN PRN Reason: Constipation Last Admin: 12/16/23 08:11 Dose: 17 gm Documented By: KESHIA Sodium Chloride (0.9 % Sodium Chloride Flush 3 Ml Syringe) 3 ml IVFLUSH QSHIFT [facility] Last Admin: 12/16/23 09:25 Dose: Not Given Documented By: KESHIA Non-Admin Reason: IV Running Labs 12/14/23 06:53 12/16/23 05:40 Labs: Laboratory Results - last 24 hr 12/15/23 12/15/23 12/16/23 16:08 19:35 05:40 Hold Purple Top SEE NOTE Estim Creat Clear Calc 130.0 Estimated GFR > 60 POC Glucose 194 H 195 H 12/16/23 12/16/23 07:15 11:24 Hold Purple Top Estim Creat Clear Calc Estimated GFR POC Glucose 155 H 181 H Assessment and Plan (1) PAD (peripheral artery disease): Status: Acute (2) Atrial fibrillation: Status: Acute (3) Essential hypertension: Status: Acute Plan 58-year-old man status post left transmetatarsal amputation secondary to nonhealing left foot diabetic ulcer presents for vascular study left lower extremity 1.Left transmetatarsal amputation secondary to nonhealing left foot diabetic ulcer(admitted for pain control after a left lower extremity arteriogram) -Management as per vascular surgery team -Pain control acceptable -vanco/Zosyn (3) 2.Hypertension -unacceptable control -add back outpatient therapies -adjust as indicated 3.Coronary artery disease/PVD -stable well compensated -Aspirin, statin, Plavix 4.History of atrial fibrillation (paroxysmal) -check EKG in a.m. -continue amiodarone for rate control 5.Diabetes mellitus type 2 -acceptable control on current therapies -lispro correctional scale -adjust as indicated Heparin Full code Will follow Quality Stroke Does the patient have a stroke diagnosis?: No VTE Prior VTE?: No VTE Risk Level:: Surgical - very high VTE Device Contraindication: Procedure Contraindicated VTE Drug Contraindication: N/A - Med Ordered
[2023-12-16 14:15] LABS: Vancomycin Random 16.7 mcg/mL (15-20)
--- NOTE | 2023-12-16 14:32 | HE.PHANOTE ---
FAVIOLA ALEXANDRE CONTINUE CURRENT DOSE; NEXT LEVEL DUE 12/17 @1300 ESTEBAN
[2023-12-16 14:44] VITALS: BP 128/65; PULSE 85
[2023-12-16] MEDS: Gabapentin 600 MG TABLET PO ×2 (14:44→20:33)
[2023-12-16] MEDS: Losartan Potassium 25 MG TABLET PO (14:44)
[2023-12-16] MEDS: Spironolactone 25 MG TABLET PO (14:44)
[2023-12-16] MEDS: Amiodarone HCL 200 MG TABLET PO ×2 (14:44→20:33)
[2023-12-16] MEDS: Metoprolol Succinate ER 50 MG TAB.ER.24H PO (14:44)
[2023-12-16 15:02] VITALS: BP 153/66; PULSE 81; RESP 16; TEMP 36.6; O2SAT 97
[2023-12-16] MEDS: oxyCODONE HCl Immed Release 5 MG TABLET 10 MG PO (16:05)
[2023-12-16 16:08] LABS: Glucose, Whole Blood 218 mg/dL (60-115)
[2023-12-16] MEDS: 0.9 % Sodium Chloride Flush 3 ML SYRINGE IVFLUSH ×2 (16:49→20:37)
[2023-12-16 20:00] VITALS: BP 158/72; PULSE 78; RESP 18; TEMP 36.8; O2SAT 96
[2023-12-16] MEDS: Sertraline HCL 25 MG TABLET 75 MG PO (20:33)
[2023-12-16] MEDS: Atorvastatin Calcium 80 MG TABLET PO (20:33)
[2023-12-16] MEDS: Insulin Glargine,Hum.rec.anlog 100 UNIT/ML 10 ML VIAL 34 UNIT SUBCUT (20:33)
[2023-12-16 20:53] LABS: Glucose, Whole Blood 172 mg/dL (60-115)
[2023-12-17 03:21] VITALS: BP 143/65; PULSE 74; RESP 16; TEMP 36.6; O2SAT 97
[2023-12-17] MEDS: vancomycin HCL 1,500 MG in 0.9 % Sodium Chloride 500 ML 250 MG IV ×2 (03:21→14:30)
[2023-12-17] MEDS: Morphine Sulfate 4 MG/ML CARTRIDGE IVPUSH ×6 (03:24→22:21)
[2023-12-17] MEDS: Heparin Sodium,Porcine 5,000 UNIT/ML VIAL 5000 UNIT SUBCUT ×3 (03:24→19:30)
[2023-12-17] MEDS: Piperacillin Sodium/Tazobactam 4.5 GM in 0.9 % Sodium Chloride 100 ML IV ×3 (06:09→22:09)
[2023-12-17 07:20] LABS: Glucose, Whole Blood 122 mg/dL (60-115)
[2023-12-17 07:32] LABS: Creatinine Clr Calc Pharmacy 124.8; Estimated Glomerular Filt Rate > 60
[2023-12-17 07:43] VITALS: BP 128/62; PULSE 71; RESP 12; TEMP 36.2; O2SAT 96
[2023-12-17] MEDS: Aspirin 81 MG TAB.CHEW PO (07:50)
[2023-12-17] MEDS: Gabapentin 600 MG TABLET PO ×3 (07:50→19:30)
[2023-12-17] MEDS: Empagliflozin 10 MG TABLET PO (07:51)
[2023-12-17] MEDS: Losartan Potassium 25 MG TABLET PO (07:51)
[2023-12-17] MEDS: Spironolactone 25 MG TABLET PO (07:51)
[2023-12-17] MEDS: Amiodarone HCL 200 MG TABLET PO ×2 (07:51→19:30)
[2023-12-17] MEDS: Clopidogrel Bisulfate 75 MG TABLET PO (07:51)
[2023-12-17] MEDS: Metoprolol Succinate ER 50 MG TAB.ER.24H PO (07:52)
[2023-12-17] MEDS: 0.9 % Sodium Chloride Flush 3 ML SYRINGE IVFLUSH ×2 (07:52→17:05)
[2023-12-17 10:07] LABS: Glucose, Whole Blood 171 mg/dL (60-115)
[2023-12-17] MEDS: oxyCODONE HCl Immed Release 5 MG TABLET 10 MG PO (10:43)
[2023-12-17 11:12] LABS: Glucose, Whole Blood 182 mg/dL (60-115)
[2023-12-17] MEDS: Insulin Lispro 100 UNIT/ML 3 ML VIAL SUBCUT ×2 (11:57→22:07)
[2023-12-17] MEDS: polyethylene glycoL 3350 17 GM POWD.PACK PO (14:02)
--- NOTE | 2023-12-17 14:17 | HO.PM.IMPN ---
Subjective Subjective Date of Service: 12/17/23 Interval History: Increasing pain over last 24 hours. Oral pain meds less effective. No other acute issues Review of Systems Denies chest pain Denies shortness of breath Denies nausea vomiting diarrhea Denies fever chills Admits to pain left lower extremity Physical Exam Vital Signs: Vital Signs: Last Vital Signs Temp 97.1 F 12/17/23 07:43 Pulse 71 12/17/23 07:43 Resp 12 12/17/23 07:43 BP 128/62 12/17/23 07:43 Pulse Ox 96 12/17/23 07:43 O2 Del Method Room Air 12/17/23 07:43 BMI result Body Mass Index 32.5 Const: Other: Awake alert uncomfortable appearing Resp: Other: Clear to auscultation bilaterally no rales rhonchi or wheezes Cardio: Other: No S4; positive S1-S2; no S3 murmurs rubs or gallops GI: Other: Soft nontender nondistended normoactive bowel sounds Extrem: Other: Left TMA (old) Objective Data Active Medications Acetaminophen (Acetaminophen 325 Mg Tablet) 650 mg PO Q6H PRN PRN Reason: Pain, Mild (Pain Scale 1-3) Last Admin: 12/13/23 11:33 Dose: 650 mg Documented By: WINSTON Amiodarone HCl (Amiodarone Hcl 200 Mg Tablet) 200 mg PO BID [facility] Last Admin: 12/17/23 07:51 Dose: 200 mg Documented By: KESHIA Aspirin (Aspirin 81 Mg Tab.Chew) 81 mg PO DAILY [facility] Last Admin: 12/17/23 07:50 Dose: 81 mg Documented By: KESHIA Atorvastatin Calcium (Atorvastatin Calcium 80 Mg Tablet) 80 mg PO BEDTIME [facility] Last Admin: 12/16/23 20:33 Dose: 80 mg Documented By: MATTHEW Clopidogrel Bisulfate (Clopidogrel Bisulfate 75 Mg Tablet) 75 mg PO DAILY [facility] Last Admin: 12/17/23 07:51 Dose: 75 mg Documented By: KESHIA Empagliflozin (Empagliflozin 10 Mg Tablet) 10 mg PO DAILY [facility] Last Admin: 12/17/23 07:51 Dose: 10 mg Documented By: KESHIA Famotidine (Famotidine 20 Mg Tablet) 40 mg PO DAILY PRN PRN Reason: heartburn Gabapentin (Gabapentin 600 Mg Tablet) 600 mg PO TID [facility] Last Admin: 12/17/23 07:50 Dose: 600 mg Documented By: KESHIA Glucose (Glucose Gel 15 Gm Gel..Gram.) 15 gm PO Q15M PRN; Protocol PRN Reason: per Hypoglycemia Standing Ord. Heparin Sodium (Porcine) (Heparin Sodium,Porcine 5,000 Unit/Ml Vial) 5,000 unit SUBCUT Q8H [facility] Last Admin: 12/17/23 11:56 Dose: 5,000 unit Documented By: KESHIA Dextrose (D10) 250 mls @ 750 mls/hr IV Q15M PRN; Protocol PRN Reason: per Hypoglycemia Standing Ord. Piperacillin Sod/Tazobactam (Sod 4.5 gm/ Sodium Chloride) 100 mls @ 200 mls/hr IV Q8H [facility] Last Infusion: 12/17/23 14:05 Dose: Infused Documented By: TARIQ Vancomycin HCl 1,500 mg/ (Sodium Chloride) 500 mls @ 333.333 mls/hr IV Q12H [facility] Last Infusion: 12/17/23 05:33 Dose: Infused Documented By: MATTHEW Insulin Glargine (Insulin Glargine,Hum.Rec.Anlog 100 Unit/Ml 10 Ml Vial) 34 unit SUBCUT BEDTIME [facility] Last Admin: 12/16/23 20:33 Dose: 34 unit Documented By: MATTHEW Insulin Human Lispro (Insulin Lispro 100 Unit/Ml 3 Ml Vial) 0 unit SUBCUT QIDACHS [facility]; Protocol Last Admin: 12/17/23 11:57 Dose: 2 unit Documented By: KESHIA Losartan Potassium (Losartan Potassium 25 Mg Tablet) 25 mg PO DAILY [facility]; Protocol Last Admin: 12/17/23 07:51 Dose: 25 mg Documented By: KESHIA Melatonin (Melatonin 3 Mg Tablet) 6 mg PO BEDTIME PRN PRN Reason: Insomnia Last Admin: 12/14/23 22:35 Dose: 6 mg Documented By: KATINA Metoprolol Succinate (Metoprolol Succinate Er 50 Mg Tab.Er.24h) 50 mg PO DAILY [facility]; Protocol Last Admin: 12/17/23 07:52 Dose: 50 mg Documented By: KESHIA Morphine Sulfate (Morphine Sulfate 4 Mg/Ml Cartridge) 4 mg IVPUSH Q2H PRN; Protocol PRN Reason: Pain, Severe (Pain Scale 7-10) Last Admin: 12/17/23 14:00 Dose: 4 mg Documented By: TARIQ Oxycodone HCl (Oxycodone Hcl Immed Release 15 Mg Tablet) 15 mg PO Q4H PRN PRN Reason: Pain, Moderate(Pain Scale 4-6) Pharmacy Consult (Consult Rx Vancomycin Dosing) 1 each MISCELLANE DAILY PRN PRN Reason: Consult order Polyethylene Glycol (Polyethylene Glycol 3350 17 Gm Powd.Pack) 17 gm PO DAILY PRN PRN Reason: Constipation Last Admin: 12/17/23 14:02 Dose: 17 gm Documented By: TARIQ Sertraline HCl (Sertraline Hcl 25 Mg Tablet) 75 mg PO BEDTIME [facility] Last Admin: 12/16/23 20:33 Dose: 75 mg Documented By: MATTHEW Sodium Chloride (0.9 % Sodium Chloride Flush 3 Ml Syringe) 3 ml IVFLUSH QSHIFT [facility] Last Admin: 12/17/23 07:52 Dose: 3 ml Documented By: KESHIA Spironolactone (Spironolactone 25 Mg Tablet) 25 mg PO DAILY [facility]; Protocol Last Admin: 12/17/23 07:51 Dose: 25 mg Documented By: KESHIA Labs 12/14/23 06:53 12/17/23 05:53 Labs: Laboratory Results - last 24 hr 12/16/23 12/16/23 12/17/23 15:56 20:36 05:53 Estim Creat Clear Calc 124.8 Estimated GFR > 60 POC Glucose 218 H 172 H 12/17/23 12/17/23 12/17/23 07:12 10:02 11:06 Estim Creat Clear Calc Estimated GFR POC Glucose 122 H 171 H 182 H Assessment and Plan (1) Essential hypertension: Status: Acute (2) Atrial fibrillation: Status: Acute Plan 58-year-old man status post left transmetatarsal amputation secondary to nonhealing left foot diabetic ulcer presents for vascular study left lower extremity 1.Left transmetatarsal amputation secondary to nonhealing left foot diabetic ulcer(admitted for pain control after a left lower extremity arteriogram) -Management as per vascular surgery team -will increase oxycodone 15 mg q.4 hours and continue morphine for breakthrough pain -vanco/Zosyn (4) -will likely need amputation however await surgical input 2.Hypertension -unacceptable control -add back outpatient therapies -adjust as indicated 3.Coronary artery disease/PVD -stable well compensated -Aspirin, statin, Plavix 4.History of atrial fibrillation (paroxysmal) -check EKG in a.m. -continue amiodarone for rate control 5.Diabetes mellitus type 2 -acceptable control on current therapies -lispro correctional scale -adjust as indicated Heparin Full code Will follow Quality Stroke Does the patient have a stroke diagnosis?: No VTE Prior VTE?: No VTE Risk Level:: Surgical - very high VTE Device Contraindication: Procedure Contraindicated VTE Drug Contraindication: N/A - Med Ordered
[2023-12-17] MEDS: Acetaminophen 325 MG TABLET 650 MG PO (14:28)
[2023-12-17] MEDS: oxyCODONE HCl Immed Release 15 MG TABLET PO ×2 (14:28→19:29)
[2023-12-17 15:08] VITALS: BP 135/65; PULSE 65; RESP 18; TEMP 36.7; O2SAT 98
[2023-12-17 16:20] LABS: Glucose, Whole Blood 138 mg/dL (60-115)
[2023-12-17 19:09] VITALS: BP 136/70; PULSE 72; RESP 18; TEMP 36.4; O2SAT 95
[2023-12-17] MEDS: Sertraline HCL 25 MG TABLET 75 MG PO (19:30)
[2023-12-17] MEDS: Atorvastatin Calcium 80 MG TABLET PO (19:31)
[2023-12-17 20:28] LABS: Glucose, Whole Blood 180 mg/dL (60-115)
[2023-12-17] MEDS: Insulin Glargine,Hum.rec.anlog 100 UNIT/ML 10 ML VIAL 34 UNIT SUBCUT (22:08)
[2023-12-18] VITALS (18 sets, daily range): BP systolic 86–155; BP diastolic 39–74; PULSE 63–85; RESP 12–18; TEMP 36.1–36.8; O2SAT 94–99
[2023-12-18] MEDS: Morphine Sulfate 4 MG/ML CARTRIDGE IVPUSH ×7 (00:19→20:45)
[2023-12-18] MEDS: 0.9 % Sodium Chloride Flush 3 ML SYRINGE IVFLUSH ×4 (00:20→20:49)
[2023-12-18] MEDS: Melatonin 3 MG TABLET 6 MG PO ×2 (00:46→20:49)
[2023-12-18] MEDS: vancomycin HCL 1,500 MG in 0.9 % Sodium Chloride 500 ML 333.33 MG IV ×2 (03:22→16:44)
[2023-12-18] MEDS: Heparin Sodium,Porcine 5,000 UNIT/ML VIAL 5000 UNIT SUBCUT ×2 (05:13→18:44)
[2023-12-18] MEDS: Piperacillin Sodium/Tazobactam 4.5 GM in 0.9 % Sodium Chloride 100 ML IV ×2 (05:19→15:27)
[2023-12-18 05:57] LABS: Creatinine Clr Calc Pharmacy 110.3; Estimated Glomerular Filt Rate > 60
[2023-12-18] MEDS: oxyCODONE HCl Immed Release 15 MG TABLET PO ×2 (06:00→18:43)
[2023-12-18 07:21] LABS: Glucose, Whole Blood 133 mg/dL (60-115)
[2023-12-18] MEDS: Losartan Potassium 25 MG TABLET PO (07:29)
[2023-12-18] MEDS: Metoprolol Succinate ER 50 MG TAB.ER.24H PO (07:30)
[2023-12-18] MEDS: Aspirin 81 MG TAB.CHEW PO (07:30)
[2023-12-18] MEDS: Spironolactone 25 MG TABLET PO (07:31)
[2023-12-18] MEDS: Amiodarone HCL 200 MG TABLET PO ×2 (07:31→18:43)
[2023-12-18] MEDS: Empagliflozin 10 MG TABLET PO (07:31)
[2023-12-18] MEDS: Clopidogrel Bisulfate 75 MG TABLET PO (07:31)
[2023-12-18] MEDS: Gabapentin 600 MG TABLET PO ×3 (07:31→18:43)
--- NOTE | 2023-12-18 07:51 | MHC.SHP ---
Pre-Procedural Eval Section A - 24 Hr Update-Section A only Date of Service: 12/18/23 The patient is an INPATIENT: Yes Changes since office visit: Yes Patient answered all questions The patient has been examined within 24 hours of the surgical procedure. The History & Physical has been completed within 30 days and I have reviewed it.: Yes Section B - Complete if H&P > 30 days Chief Complaint: Nonhealing diabetic foot ulcer Allergies: Allergies Allergy/AdvReac Type Severity Reaction Status Date / Time No Known Allergies Allergy Verified 12/12/23 10:20 Plan I have reviewed the history and physical and performed a pertinent physical examination on my patient. No changes have occurred unless specified. Time Spent With Patient Time: Total time managing care of this patient today ____ minutes.
--- NOTE | 2023-12-18 07:51 | HO.VASCPN ---
Subjective Subjective Date of Service: 12/18/23 Patient reports: no new complaints and feels better Interval history: Patient seen and examined. No significant events over the past weekend. Still continues to have a fair amount of pain. Now for follow-up regarding left transmetatarsal amputation. Physical Exam Vital Signs: Vital Signs: Last Vital Signs Temp 97 F 12/18/23 07:26 Pulse 67 12/18/23 07:30 Resp 12 12/18/23 07:26 BP 129/66 12/18/23 07:31 Pulse Ox 95 12/18/23 07:26 O2 Del Method Room Air 12/18/23 07:26 BMI result Body Mass Index 32.5 Const: General: cooperative, healthy appearing and no acute distress Orientation/consciousness: oriented to person, oriented to place and oriented to time HEENT: Head: Yes normal to inspection Neck: Carotids: no bruits Chest: Chest palpation & inspection: normal inspection of the chest Resp: Effort & Inspection: normal respiratory effort and able to speak in complete sentences Auscultation: clear to auscultation bilaterally Cardio: Rate: regular rate Heart sounds: S1 normal heart sound present and S2 normal heart sound present GI: Inspection: Yes normal to inspection Skin: Other: Less than 50% take of left trans met. Serous drainage. General skin exam: no rashes or lesions noted Wounds: no wounds Neuro: General: oriented to person, oriented to place, oriented to time and CN's II-XI intact bilaterally Extrem: General: Yes normal to inspection, Yes full ROM and Yes no clubbing, cyanosis or edema Psych: Appearance: grossly normal and well kempt Speech and movement: Normal speech and movement present Affect: normal affect Progress Note: A&P Assessment and plan (1) PAD (peripheral artery disease): Status: Acute Assessment and Plan: In short patient has a nonhealing left transmetatarsal amputation. The patient will require left below-knee amputation. Risks benefits complications of the procedure were discussed in detail with the patient. He agreed and would like to forward. We will schedule for later today. Time Spent With Patient Time: Total time managing care of this patient today ____ minutes. Procedures Date of Service Date of Service: 12/18/23 Quality Stroke Does the patient have a stroke diagnosis?: No VTE Prior VTE?: No VTE Risk Level:: Surgical - very high VTE Device Contraindication: Procedure Contraindicated VTE Drug Contraindication: N/A - Med Ordered
--- NOTE | 2023-12-18 10:58 | MHC.CM.PN ---
Per MD rounds patient is not medically cleared for dc. Plan is for OR today for LBKA. CM will continue to follow.
--- NOTE | 2023-12-18 11:05 | PC.NURSE ---
1050- patient transported via hospital bed to surgical department for left BKA procedure. Patient wearing appropriate hospital attire with correct patient identifier wristband present.
[2023-12-18 11:28] LABS: Glucose, Whole Blood 105 mg/dL (60-115)
--- NOTE | 2023-12-18 11:33 | PC.NURSE ---
Patient took all his blood thinning medications today; plavix, aspirin, heparin. Okay per Dr. Sheppard, may proceed with surgery.
--- NOTE | 2023-12-18 11:34 | PC.NURSE ---
Patient took his morning Jardiance this morning. Dr. Prado from anesthesia made aware. May proceed with surgery.
--- NOTE | 2023-12-18 11:35 | PC.NURSE ---
Patient arrived to preop with one PRN angio in left FA, #20. Site painful, hard to touch. IV removed, tolerated well.
--- NOTE | 2023-12-18 12:24 | HO.ANESPROP2 ---
HPI - Anesthesia Eval Consult details Narrative: 58 yo male patient with non-healing left transmetatarsal amputation. For Left above knee amputation. Recent open heart surgery- September 28 Was given jardiance and plavix this morning PMFSH Active Problems Active Problems: All Active Problems Essential hypertension (Acute) Atrial fibrillation (Acute) PAD (peripheral artery disease) (Acute) Status post amputation of left foot through metatarsal bone (Acute) Atrial arrhythmia (Acute) Acute non-ST elevation myocardial infarction (NSTEMI) (Acute) 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 (Acute) Diabetes mellitus with retinopathy, with long-term current use of insulin (Acute) Heartburn symptom (Acute) Erectile dysfunction (Acute) Ulcer of left heel (Acute) Diabetic foot ulcer (Acute) Intractable left heel pain (Acute) Hx of heart artery stent (Acute) Arthritis (Acute) Patient states recently had 'open heart surgery'- September 2023. No records available in chart Past Medical History Medical History Atrial fibrillation Essential hypertension PAD (peripheral artery disease) Dry gangrene Peripheral arterial disease Diabetic foot infection 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 Diabetes mellitus with retinopathy, with long-term current use of insulin Heartburn symptom Amputation stump infection Major depression, recurrent Erectile dysfunction Dyslipidemia Amputation stump complication Intractable left heel pain Chronic 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 Type 2 diabetes mellitus with hyperglycemia Hyperlipidemia Chronic pancreatitis Neuropathy Kidney calculus Alcohol abuse CAD (coronary artery disease) Arthritis Family History Family History Mother [place] (myocardial infarction), Onset Age: 64 Diabetes mellitus HTN (hypertension) Maternal Grandmother Diabetes mellitus Family history of problems with anesthesia: No Surgical History Surgical History S/P angiogram of extremity (06/28/23) History of right below knee amputation Status post below-knee amputation S/P debridement Hx of lithotripsy Status post laparoscopic cholecystectomy Hx of heart artery stent History of Problems with Anesthesia: No Social History Social History Household Members: Spouse Household Members Other:: and daughter Housing: Apartment Do you presently have visiting nurse or other home services: Yes Alcohol intake: former Comment: pt ambulates with crutches. Patient Tobacco Use Status: Former Tobacco user Quit Date: 2023 Tobacco use type: Cigarette Cigarette Packs Per Day: 0.01 Cigarettes Per Day: 3 Years Smoked: 30 Smoked in Last 30 Days: No e-Cigarette/Vaping Use: Never Used Second Hand Smoke Exposure: No Use of substances other than those prescribed or required for medical reasons: No Substance Use Type: Marijuana Currently Displaying Signs/Symptoms of Drug Intoxication Withdrawal: No Have you been hit, kicked, punched, or otherwise hurt by someone within the past year? If so, by whom?: No Do you feel safe in your current relationship?: Yes Is there a partner from a previous relationship who is making you feel unsafe now?: No Are you made to feel afraid or neglected: No Are you DNR?: No Advance Directives: No Advance Directives Information Provided: Yes Advance Directives Date on File: 04/17/21 Do you have thoughts of harming others: None Do you have a plan to hurt others: No Plan Recently lost weight without trying: No Nutrition Risks: No Nutritional Risk Poor oral hygiene: No service: No Current occupational status: unemployed and disabled Cognitive needs: No Hearing needs: No Vision needs: Yes Meds Allergies Allergy/AdvReac Type Severity Reaction Status Date / Time No Known Allergies Allergy Verified 12/18/23 11:20 Active Medications: Current Medications Acetaminophen (Acetaminophen 325 Mg Tablet) 650 mg PO Q6H PRN PRN Reason: Pain, Mild (Pain Scale 1-3) Last Admin: 12/17/23 14:28 Dose: 650 mg Amiodarone HCl (Amiodarone Hcl 200 Mg Tablet) 200 mg PO BID [facility] Last Admin: 12/18/23 07:31 Dose: 200 mg Aspirin (Aspirin 81 Mg Tab.Chew) 81 mg PO DAILY [facility] Last Admin: 12/18/23 07:30 Dose: 81 mg Atorvastatin Calcium (Atorvastatin Calcium 80 Mg Tablet) 80 mg PO BEDTIME [facility] Last Admin: 12/17/23 19:31 Dose: 80 mg Clopidogrel Bisulfate (Clopidogrel Bisulfate 75 Mg Tablet) 75 mg PO DAILY [facility] Last Admin: 12/18/23 07:31 Dose: 75 mg Empagliflozin (Empagliflozin 10 Mg Tablet) 10 mg PO DAILY [facility] Last Admin: 12/18/23 07:31 Dose: 10 mg Famotidine (Famotidine 20 Mg Tablet) 40 mg PO DAILY PRN PRN Reason: heartburn Gabapentin (Gabapentin 600 Mg Tablet) 600 mg PO TID [facility] Last Admin: 12/18/23 07:31 Dose: 600 mg Glucose (Glucose Gel 15 Gm Gel..Gram.) 15 gm PO Q15M PRN; Protocol PRN Reason: per Hypoglycemia Standing Ord. Heparin Sodium (Porcine) (Heparin Sodium,Porcine 5,000 Unit/Ml Vial) 5,000 unit SUBCUT Q8H [facility] Last Admin: 12/18/23 05:13 Dose: 5,000 unit Dextrose (D10) 250 mls @ 750 mls/hr IV Q15M PRN; Protocol PRN Reason: per Hypoglycemia Standing Ord. Piperacillin Sod/Tazobactam (Sod 4.5 gm/ Sodium Chloride) 100 mls @ 200 mls/hr IV Q8H [facility] Last Infusion: 12/18/23 05:55 Dose: Infused Vancomycin HCl 1,500 mg/ (Sodium Chloride) 500 mls @ 333.333 mls/hr IV Q12H [facility] Last Infusion: 12/18/23 05:00 Dose: Infused Insulin Glargine (Insulin Glargine,Hum.Rec.Anlog 100 Unit/Ml 10 Ml Vial) 34 unit SUBCUT BEDTIME [facility] Last Admin: 12/17/23 22:08 Dose: 34 unit Insulin Human Lispro (Insulin Lispro 100 Unit/Ml 3 Ml Vial) 0 unit SUBCUT QIDACHS [facility]; Protocol Last Admin: 12/18/23 11:37 Dose: Not Given Losartan Potassium (Losartan Potassium 25 Mg Tablet) 25 mg PO DAILY [facility]; Protocol Last Admin: 12/18/23 07:29 Dose: 25 mg Melatonin (Melatonin 3 Mg Tablet) 6 mg PO BEDTIME PRN PRN Reason: Insomnia Last Admin: 12/18/23 00:46 Dose: 6 mg Metoprolol Succinate (Metoprolol Succinate Er 50 Mg Tab.Er.24h) 50 mg PO DAILY [facility]; Protocol Last Admin: 12/18/23 07:30 Dose: 50 mg Oxycodone HCl (Oxycodone Hcl Immed Release 15 Mg Tablet) 15 mg PO Q4H PRN PRN Reason: Pain, Moderate(Pain Scale 4-6) Last Admin: 12/18/23 06:00 Dose: 15 mg Pharmacy Consult (Consult Rx Vancomycin Dosing) 1 each MISCELLANE DAILY PRN PRN Reason: Consult order Polyethylene Glycol (Polyethylene Glycol 3350 17 Gm Powd.Pack) 17 gm PO DAILY PRN PRN Reason: Constipation Last Admin: 12/17/23 14:02 Dose: 17 gm Sertraline HCl (Sertraline Hcl 25 Mg Tablet) 75 mg PO BEDTIME [facility] Last Admin: 12/17/23 19:30 Dose: 75 mg Sodium Chloride (0.9 % Sodium Chloride Flush 3 Ml Syringe) 3 ml IVFLUSH QSHIFT [facility] Last Admin: 12/18/23 07:31 Dose: 3 ml Spironolactone (Spironolactone 25 Mg Tablet) 25 mg PO DAILY [facility]; Protocol Last Admin: 12/18/23 07:31 Dose: 25 mg Home Medications ?Medication ?Instructions ?Recorded ?Confirmed ?Last Taken ?Type blood sugar diagnostic (FreeStyle 12/01/22 06/28/23 Unknown History Lite Strips) blood-glucose meter (FreeStyle 12/01/22 06/28/23 Unknown History Lite Meter kit) atorvastatin 80 mg tablet 80 mg PO BEDTIME 06/20/23 12/14/23 11/17/23 History famotidine 40 mg tablet 40 mg PO DAILY PRN heartburn 09/11/23 12/14/23 11/17/23 History melatonin 5 mg tablet 5 mg PO BEDTIME PRN Sleep 09/11/23 12/14/23 11/01/23 History amiodarone 200 mg tablet 200 mg PO BID 10/18/23 12/14/23 11/17/23 History insulin glargine 100 unit/mL (3 34 unit subcut BEDTIME 10/18/23 12/14/23 11/17/23 History mL) subcutaneous pen (Lantus Solostar U-100 Insulin) lidocaine 5 % topical patch 1 patch topical DAILY PRN moderate 10/18/23 12/14/23 10/18/23 History pain pantoprazole 40 mg tablet,delayed 40 mg PO DAILY@0630 10/18/23 12/14/23 11/17/23 History release clopidogrel 75 mg tablet 75 mg PO DAILY 11/18/23 12/14/23 11/23/23 History dapagliflozin propanediol 10 mg 10 mg PO DAILY 11/18/23 12/18/23 12/13/23 History tablet (Farxiga) losartan 25 mg tablet 25 mg PO DAILY 11/18/23 12/14/23 11/17/23 History sertraline 50 mg tablet 75 mg PO BEDTIME 11/18/23 12/14/23 11/17/23 History spironolactone 25 mg tablet 25 mg PO DAILY 11/18/23 12/14/23 11/17/23 History tramadol 50 mg tablet 50 mg PO Q6H PRN pain 11/18/23 12/14/23 Unknown History Exam Height,Weight and Vital Signs: Height 5 ft 9 in Weight 99.79 kg Last Vital Signs Temp 98.3 F 12/18/23 11:08 Pulse 63 12/18/23 11:08 Resp 16 12/18/23 11:08 BP 100/62 12/18/23 11:08 Pulse Ox 97 12/18/23 11:08 O2 Del Method Room Air 12/18/23 11:08 Pertinent Lab Results Pertinent Lab Results: Laboratory Tests 12/13/23 12/13/23 12/13/23 08:19 13:42 16:20 WBC 11.5 H RBC 4.05 L Hgb 9.3 L Hct 30.8 L MCV 76.0 L MCH 23.0 L MCHC 30.2 L RDW 16.5 H Plt Count 397 MPV 9.6 Immature Gran % (Auto) 1.3 H Neut % (Auto) 68.7 Lymph % (Auto) 17.7 L [place] % (Auto) 8.5 Eos % (Auto) 3.3 Baso % (Auto) 0.5 Lymph # (Auto) 2.0 [place] # (Auto) 1.0 Eos # (Auto) 0.4 Baso # (Auto) 0.1 Abs Immat Gran (auto) 0.15 H Absolute Neuts (auto) 7.9 Absolute Nucleated RBC 0.000 Nucleated RBC % (auto) 0.0 Hold Purple Top Sodium Potassium Chloride Carbon Dioxide Anion Gap BUN 20 H Creatinine 0.85 Estim Creat Clear Calc 111.6 Estimated GFR > 60 POC Glucose 179 H 174 H Random Glucose Calcium Random Vancomycin Blood Type Antibody Screen 12/13/23 12/14/23 12/14/23 20:28 06:53 07:25 WBC 11.0 H RBC 3.90 L Hgb 9.0 L Hct 30.1 L MCV 77.2 L MCH 23.1 L MCHC 29.9 L RDW 16.5 H Plt Count 396 MPV 10.1 Immature Gran % (Auto) 1.2 H Neut % (Auto) 66.6 Lymph % (Auto) 19.9 L [place] % (Auto) 8.8 Eos % (Auto) 3.0 Baso % (Auto) 0.5 Lymph # (Auto) 2.2 [place] # (Auto) 1.0 Eos # (Auto) 0.3 Baso # (Auto) 0.1 Abs Immat Gran (auto) 0.13 H Absolute Neuts (auto) 7.3 Absolute Nucleated RBC 0.000 Nucleated RBC % (auto) 0.0 Hold Purple Top Sodium 136 Potassium 4.3 Chloride 104 Carbon Dioxide 25 Anion Gap 11 L BUN 14 Creatinine 0.81 Estim Creat Clear Calc 117.1 Estimated GFR > 60 POC Glucose 161 H 120 H Random Glucose 125 H Calcium 8.6 Random Vancomycin Blood Type Antibody Screen 12/14/23 12/14/23 12/14/23 11:06 16:18 20:22 WBC RBC Hgb Hct MCV MCH MCHC RDW Plt Count MPV Immature Gran % (Auto) Neut % (Auto) Lymph % (Auto) [place] % (Auto) Eos % (Auto) Baso % (Auto) Lymph # (Auto) [place] # (Auto) Eos # (Auto) Baso # (Auto) Abs Immat Gran (auto) Absolute Neuts (auto) Absolute Nucleated RBC Nucleated RBC % (auto) Hold Purple Top Sodium Potassium Chloride Carbon Dioxide Anion Gap BUN Creatinine Estim Creat Clear Calc Estimated GFR POC Glucose 199 H 218 H 196 H Random Glucose Calcium Random Vancomycin Blood Type Antibody Screen 12/15/23 12/15/23 12/15/23 05:52 06:51 11:12 WBC RBC Hgb Hct MCV MCH MCHC RDW Plt Count MPV Immature Gran % (Auto) Neut % (Auto) Lymph % (Auto) [place] % (Auto) Eos % (Auto) Baso % (Auto) Lymph # (Auto) [place] # (Auto) Eos # (Auto) Baso # (Auto) Abs Immat Gran (auto) Absolute Neuts (auto) Absolute Nucleated RBC Nucleated RBC % (auto) Hold Purple Top SEE NOTE Sodium Potassium Chloride Carbon Dioxide Anion Gap BUN Creatinine 0.76 Estim Creat Clear Calc 124.8 Estimated GFR > 60 POC Glucose 129 H 176 H Random Glucose Calcium Random Vancomycin Blood Type Antibody Screen 12/15/23 12/15/23 12/15/23 12:56 16:08 19:35 WBC RBC Hgb Hct MCV MCH MCHC RDW Plt Count MPV Immature Gran % (Auto) Neut % (Auto) Lymph % (Auto) [place] % (Auto) Eos % (Auto) Baso % (Auto) Lymph # (Auto) [place] # (Auto) Eos # (Auto) Baso # (Auto) Abs Immat Gran (auto) Absolute Neuts (auto) Absolute Nucleated RBC Nucleated RBC % (auto) Hold Purple Top Sodium Potassium Chloride Carbon Dioxide Anion Gap BUN Creatinine Estim Creat Clear Calc Estimated GFR POC Glucose 194 H 195 H Random Glucose Calcium Random Vancomycin 14.5 L Blood Type Antibody Screen 12/16/23 12/16/23 12/16/23 05:40 07:15 11:24 WBC RBC Hgb Hct MCV MCH MCHC RDW Plt Count MPV Immature Gran % (Auto) Neut % (Auto) Lymph % (Auto) [place] % (Auto) Eos % (Auto) Baso % (Auto) Lymph # (Auto) [place] # (Auto) Eos # (Auto) Baso # (Auto) Abs Immat Gran (auto) Absolute Neuts (auto) Absolute Nucleated RBC Nucleated RBC % (auto) Hold Purple Top SEE NOTE Sodium Potassium Chloride Carbon Dioxide Anion Gap BUN Creatinine 0.73 Estim Creat Clear Calc 130.0 Estimated GFR > 60 POC Glucose 155 H 181 H Random Glucose Calcium Random Vancomycin Blood Type Antibody Screen 12/16/23 12/16/23 12/16/23 12:48 15:56 20:36 WBC RBC Hgb Hct MCV MCH MCHC RDW Plt Count MPV Immature Gran % (Auto) Neut % (Auto) Lymph % (Auto) [place] % (Auto) Eos % (Auto) Baso % (Auto) Lymph # (Auto) [place] # (Auto) Eos # (Auto) Baso # (Auto) Abs Immat Gran (auto) Absolute Neuts (auto) Absolute Nucleated RBC Nucleated RBC % (auto) Hold Purple Top Sodium Potassium Chloride Carbon Dioxide Anion Gap BUN Creatinine Estim Creat Clear Calc Estimated GFR POC Glucose 218 H 172 H Random Glucose Calcium Random Vancomycin 16.7 Blood Type Antibody Screen 12/17/23 12/17/23 12/17/23 05:53 07:12 10:02 WBC RBC Hgb Hct MCV MCH MCHC RDW Plt Count MPV Immature Gran % (Auto) Neut % (Auto) Lymph % (Auto) [place] % (Auto) Eos % (Auto) Baso % (Auto) Lymph # (Auto) [place] # (Auto) Eos # (Auto) Baso # (Auto) Abs Immat Gran (auto) Absolute Neuts (auto) Absolute Nucleated RBC Nucleated RBC % (auto) Hold Purple Top Sodium Potassium Chloride Carbon Dioxide Anion Gap BUN Creatinine 0.76 Estim Creat Clear Calc 124.8 Estimated GFR > 60 POC Glucose 122 H 171 H Random Glucose Calcium Random Vancomycin Blood Type Antibody Screen 12/17/23 12/17/23 12/17/23 11:06 16:12 20:23 WBC RBC Hgb Hct MCV MCH MCHC RDW Plt Count MPV Immature Gran % (Auto) Neut % (Auto) Lymph % (Auto) [place] % (Auto) Eos % (Auto) Baso % (Auto) Lymph # (Auto) [place] # (Auto) Eos # (Auto) Baso # (Auto) Abs Immat Gran (auto) Absolute Neuts (auto) Absolute Nucleated RBC Nucleated RBC % (auto) Hold Purple Top Sodium Potassium Chloride Carbon Dioxide Anion Gap BUN Creatinine Estim Creat Clear Calc Estimated GFR POC Glucose 182 H 138 H 180 H Random Glucose Calcium Random Vancomycin Blood Type Antibody Screen 12/18/23 12/18/23 12/18/23 05:08 07:18 08:57 WBC RBC Hgb Hct MCV MCH MCHC RDW Plt Count MPV Immature Gran % (Auto) Neut % (Auto) Lymph % (Auto) [place] % (Auto) Eos % (Auto) Baso % (Auto) Lymph # (Auto) [place] # (Auto) Eos # (Auto) Baso # (Auto) Abs Immat Gran (auto) Absolute Neuts (auto) Absolute Nucleated RBC Nucleated RBC % (auto) Hold Purple Top SEE NOTE Sodium Potassium Chloride Carbon Dioxide Anion Gap BUN Creatinine 0.86 Estim Creat Clear Calc 110.3 Estimated GFR > 60 POC Glucose 133 H Random Glucose Calcium Random Vancomycin Blood Type A Positive Antibody Screen NEGATIVE 12/18/23 11:20 WBC RBC Hgb Hct MCV MCH MCHC RDW Plt Count MPV Immature Gran % (Auto) Neut % (Auto) Lymph % (Auto) [place] % (Auto) Eos % (Auto) Baso % (Auto) Lymph # (Auto) [place] # (Auto) Eos # (Auto) Baso # (Auto) Abs Immat Gran (auto) Absolute Neuts (auto) Absolute Nucleated RBC Nucleated RBC % (auto) Hold Purple Top Sodium Potassium Chloride Carbon Dioxide Anion Gap BUN Creatinine Estim Creat Clear Calc Estimated GFR POC Glucose 105 Random Glucose Calcium Random Vancomycin Blood Type Antibody Screen Airway Mallampati Class: III TM Dist: >3cm Neck ROM: Full Denture: Upper and Lower Loose/Missing/Broken Teeth: Yes Heart: RRR Lungs: CTAB Assessment and Plan Assessment Anesthesia Assessment: Anesthesia Plan Discussed and Chart Reviewed Final Anesthetic Review Family History of Problems with Anesthesia: No History of Problems with Anesthesia: No NPO: Yes ASA Class: IV and Emergency Final Preanesthetic Review: No Changes in Pt Med Stat, Meds/Allgs Chart Reviewed, Consent Obtained/Reviewed and Anes Risks/Benef Reviewed Patient Risk: High Procedure Risk: Intermediate Assessment/Block/Sedation in SS: Assess/Block/Sedation-SS Anesthetic Plan Anesthetic Plan: GA Disposition: Standard PACU and Inp. Admit - Standard Bed
--- NOTE | 2023-12-18 14:33 | W.PM.OPN ---
Operative Note Operative Note Date of Service: 12/18/23 Narrative: Operative note by [facility] Preoperative diagnosis: 1. Ischemic left lower extremity 2. Nonhealing transmetatarsal amputation Postoperative diagnosis: Same Procedure: 1. Left Leg below-knee amputation 2. Myodesis Surgeon:Berto Sheppard M.D. Candle Molder Hand: Dez Anesthesia: General Specimens: One Drains: None Estimated blood loss:300 ml Indications: 58-year-old gentleman known history of diabetes had a left transmetatarsal amputation. It has been nonhealing. Nearly 50% of the flap has necrosed. In addition it was extremely painful for him. Now presents for BKA. The patient has signed the informed consent after reviewing risks, complications, benefits, and alternatives previously discussed with the patient. The patient was given the opportunity to ask any additional questions or voice any concerns. All questions were answered to the patient's satisfaction. Procedure in detail: The patient was brought to the operating room prior to which a time-out was called for patient identification and site verification. The patient was placed in a supine position. The left lower extremity was prepped and draped in the standard surgical fashion. The intended incision site was marked. The anterior aspect of the incision was made approximately 10 cm below the left tibial tuberosity. The incision was carried through the fascia. The anterior compartment muscles were divided using electrocautery dissection. The tibia and fibula were cleared. Periosteal elevator was used to clear the periosteum from the tibia. The tibia was transected with a power reciprocating saw. This was done in a reverse hockey stick shaped cut. The fibula was transected approximately 2 in above the tibial transection site once again with a reciprocating saw. The amputation was then completed using electrocautery to create the posterior flap. The flap was debulked using electrocautery and Metzenbaum scissors. The nerve was placed on traction and ligated and divided sharply. The anterior tibial posterior tibial and peroneal vessels were or identified and tied off with 2-0 silk ties. We then performed a myodesis. In the tibia on the medial and lateral aspect using a drill holes were then created. Using 2-0 Polysorb, the muscle was then buttressed to the tibia. The wound was then closed using 2-0 poly Sorb. This was used to bring together the fascia from the posterior flap to the anterior cut. We then reapproximated the superficial layer with 3-0 poly Sorb suture. Finally skin was closed using 2-0 nylon in a mattress fashion. In addition we used skin clips. The stump was then dressed with Xeroform, Kerlix and an Tenzin wrap. The patient tolerated the procedure well. They were brought to recovery with stable vitals. At the end the case sponge needle instrument counts were correct x2. This note is constructed using voice recognition software. While every effort has been made to ensure accuracy, band splicer errors may have been included. Thank you for allowing me to participate in the care of your patient. Yours sincerely, Berto Shepprad MD, FACS, R.P.V.I.
--- NOTE | 2023-12-18 14:52 | P.PNIM_ITS ---
Subjective Subjective Date of Service: 12/18/23 Interval History: Complaining of left foot pain, no fevers, no chills, blood sugars stable Is NPO for left BKA by vascular surgery. Review of Systems All other system reviewed and negative. Physical Exam 2 Vital Signs: Vital Signs: Last Vital Signs Temp 98 F 12/18/23 14:24 Pulse 77 12/18/23 14:35 Resp 14 12/18/23 14:35 BP 112/50 L 12/18/23 14:35 Pulse Ox 94 12/18/23 14:35 O2 Del Method Nasal Cannula 12/18/23 14:35 O2 Flow Rate 2 12/18/23 14:35 BMI result Body Mass Index 32.5 Const: Other: General awake alert x 3, no acute distress.? Neck no JVD. CVS? regular rate rhythm, Respiratory lungs clear to auscultation, no respiratory distress, no wheeze, no rhonchi. Gastrointestinal abdomen soft, non tender bowel sounds audible, no guarding , no rigidity. Extremities right BKA, left foot dressing in place, no drainage noted Neuro non focal Psych appropriate affect Objective Data Active Medications Acetaminophen (Acetaminophen 325 Mg Tablet) 650 mg PO Q6H PRN PRN Reason: Pain, Mild (Pain Scale 1-3) Last Admin: 12/17/23 14:28 Dose: 650 mg Documented By: TARIQ Amiodarone HCl (Amiodarone Hcl 200 Mg Tablet) 200 mg PO BID [facility] Last Admin: 12/18/23 07:31 Dose: 200 mg Documented By: DESMOND Aspirin (Aspirin 81 Mg Tab.Chew) 81 mg PO DAILY [facility] Last Admin: 12/18/23 07:30 Dose: 81 mg Documented By: DESMOND Atorvastatin Calcium (Atorvastatin Calcium 80 Mg Tablet) 80 mg PO BEDTIME [facility] Last Admin: 12/17/23 19:31 Dose: 80 mg Documented By: SAKINA Clopidogrel Bisulfate (Clopidogrel Bisulfate 75 Mg Tablet) 75 mg PO DAILY [facility] Last Admin: 12/18/23 07:31 Dose: 75 mg Documented By: DESMOND Empagliflozin (Empagliflozin 10 Mg Tablet) 10 mg PO DAILY [facility] Last Admin: 12/18/23 07:31 Dose: 10 mg Documented By: DESMOND Famotidine (Famotidine 20 Mg Tablet) 40 mg PO DAILY PRN PRN Reason: heartburn Fentanyl (Fentanyl Citrate/Pf 100 Mcg/2 Ml Vial) 25 mcg IVPUSH Q5M PRN; Protocol PRN Reason: Pain, Moderate(Pain Scale 4-6) Stop: 12/18/23 19:48 Gabapentin (Gabapentin 600 Mg Tablet) 600 mg PO TID [facility] Last Admin: 12/18/23 07:31 Dose: 600 mg Documented By: DESMOND Glucose (Glucose Gel 15 Gm Gel..Gram.) 15 gm PO Q15M PRN; Protocol PRN Reason: per Hypoglycemia Standing Ord. Heparin Sodium (Porcine) (Heparin Sodium,Porcine 5,000 Unit/Ml Vial) 5,000 unit SUBCUT Q8H [facility] Last Admin: 12/18/23 13:21 Dose: Not Given Documented By: DESMOND Non-Admin Reason: Off Unit: Surgery Hydromorphone HCl (Hydromorphone Hcl 0.5 Mg/0.5 Ml Syringe) 0.25 mg IVPUSH Q5M PRN; Protocol PRN Reason: Pain, Severe (Pain Scale 7-10) Stop: 12/18/23 19:48 Dextrose (D10) 250 mls @ 750 mls/hr IV Q15M PRN; Protocol PRN Reason: per Hypoglycemia Standing Ord. Piperacillin Sod/Tazobactam (Sod 4.5 gm/ Sodium Chloride) 100 mls @ 200 mls/hr IV Q8H [facility] Last Infusion: 12/18/23 05:55 Dose: Infused Documented By: LASHANDA Vancomycin HCl 1,500 mg/ (Sodium Chloride) 500 mls @ 333.333 mls/hr IV Q12H [facility] Last Infusion: 12/18/23 05:00 Dose: Infused Documented By: LASHANDA Lactated Ringer's (Lr) 1,000 mls @ 50 mls/hr IVCONT .Q20H [facility] Insulin Glargine (Insulin Glargine,Hum.Rec.Anlog 100 Unit/Ml 10 Ml Vial) 34 unit SUBCUT BEDTIME [facility] Last Admin: 12/17/23 22:08 Dose: 34 unit Documented By: SAKINA Insulin Human Lispro (Insulin Lispro 100 Unit/Ml 3 Ml Vial) 0 unit SUBCUT QIDACHS [facility]; Protocol Last Admin: 12/18/23 11:37 Dose: Not Given Documented By: DESMOND Non-Admin Reason: Off unit: surgery/no coverage needed. Losartan Potassium (Losartan Potassium 25 Mg Tablet) 25 mg PO DAILY [facility]; Protocol Last Admin: 12/18/23 07:29 Dose: 25 mg Documented By: DESMOND Melatonin (Melatonin 3 Mg Tablet) 6 mg PO BEDTIME PRN PRN Reason: Insomnia Last Admin: 12/18/23 00:46 Dose: 6 mg Documented By: LASHANDA Metoprolol Succinate (Metoprolol Succinate Er 50 Mg Tab.Er.24h) 50 mg PO DAILY [facility]; Protocol Last Admin: 12/18/23 07:30 Dose: 50 mg Documented By: DESMOND Ondansetron HCl (Ondansetron Hcl 4 Mg/2 Ml Vial) 4 mg IVPUSH ONCE PRN PRN Reason: Nausea and Vomiting Stop: 12/18/23 19:49 Oxycodone HCl (Oxycodone Hcl Immed Release 15 Mg Tablet) 15 mg PO Q4H PRN PRN Reason: Pain, Moderate(Pain Scale 4-6) Last Admin: 12/18/23 06:00 Dose: 15 mg Documented By: LASHANDA Pharmacy Consult (Consult Rx Vancomycin Dosing) 1 each MISCELLANE DAILY PRN PRN Reason: Consult order Polyethylene Glycol (Polyethylene Glycol 3350 17 Gm Powd.Pack) 17 gm PO DAILY PRN PRN Reason: Constipation Last Admin: 12/17/23 14:02 Dose: 17 gm Documented By: TARIQ Sertraline HCl (Sertraline Hcl 25 Mg Tablet) 75 mg PO BEDTIME [facility] Last Admin: 12/17/23 19:30 Dose: 75 mg Documented By: SAKINA Sodium Chloride (0.9 % Sodium Chloride Flush 3 Ml Syringe) 3 ml IVFLUSH [facility] Last Admin: 12/18/23 07:31 Dose: 3 ml Documented By: DESMOND Spironolactone (Spironolactone 25 Mg Tablet) 25 mg PO DAILY [facility]; Protocol Last Admin: 12/18/23 07:31 Dose: 25 mg Documented By: DESMOND Labs 12/14/23 06:53 12/18/23 05:08 Labs: Laboratory Results - last 24 hr 04/12/17/23 12/18/23 16:12 20:23 05:08 Hold Purple Top SEE NOTE Estim Creat Clear Calc 110.3 Estimated GFR > 60 POC Glucose 138 H 180 H Blood Type Antibody Screen 12/18/23 12/18/23 12/18/23 07:18 08:57 11:20 Hold Purple Top Estim Creat Clear Calc Estimated GFR POC Glucose 133 H 105 Blood Type A Positive Antibody Screen NEGATIVE Assessment and Plan (1) Essential hypertension: Status: Acute (2) Atrial fibrillation: Status: Acute Plan 58-year-old man status post left transmetatarsal amputation secondary to nonhealing left foot diabetic ulcer presents for vascular study left lower extremity 1. Nonhealing L transmetatarsal amputation due to diabetic foot ulcer with persistent left foot pain Status post anterior tibial and posterior tibial artery plasty Patient scheduled for left BKA by vascular surgery Continue oxycodone 15 mg q.4 hours and IV Dilaudid breakthrough pain Continue IV vanco/Zosyn day 5 Follow CBC and electrolytes 2.Hypertension Stable blood pressure continue losartan, metoprolol and Aldactone s 3.Coronary artery disease/PVD -stable well compensated -continue Aspirin, statin, Plavix 4.History of atrial fibrillation (paroxysmal) -continue amiodarone for rate control 5.Diabetes mellitus type 2 -acceptable control on Jardiance, Lantus and insulin sliding scale -lispro correctional scale -adjust as indicated 6. Mood disorder continue Zoloft Heparin Full code Patient will need continued inpatient hospitalization for left BKA disposition as per vascular surgery Quality Stroke Does the patient have a stroke diagnosis?: No VTE Prior VTE?: No VTE Risk Level:: Surgical - very high VTE Device Contraindication: Procedure Contraindicated VTE Drug Contraindication: N/A - Med Ordered
[2023-12-18 15:27] LABS: Glucose, Whole Blood 109 mg/dL (60-115)
[2023-12-18] MEDS: Lactated Ringers 1,000 ML 50 ML IVCONT (15:27)
[2023-12-18 16:23] LABS: Glucose, Whole Blood 159 mg/dL (60-115)
[2023-12-18 16:26] LABS: Vancomycin Random 18.3 mcg/mL (15-20)
--- NOTE | 2023-12-18 16:37 | HE.PHANOTE ---
Addendum entered by Damaris Moise [facility] 12/18/23 16:40: Next random trough to be drawn 12/18 at 15:00. Original Note: Re: Vanco Renal function has slightly decreased but still stable. Trough returned at 18.3 mg/L. Continue current dose of 1,500mg Q12H, with predicted AUC 600 mg/L and predicted trough 18.7 mg/L.
[2023-12-18] MEDS: Atorvastatin Calcium 80 MG TABLET PO (18:43)
[2023-12-18] MEDS: Acetaminophen 325 MG TABLET 650 MG PO (18:43)
[2023-12-18] MEDS: Sertraline HCL 25 MG TABLET 75 MG PO (18:44)
[2023-12-18 20:03] LABS: Glucose, Whole Blood 235 mg/dL (60-115)
[2023-12-18] MEDS: Insulin Lispro 100 UNIT/ML 3 ML VIAL SUBCUT (20:48)
[2023-12-18] MEDS: Insulin Glargine,Hum.rec.anlog 100 UNIT/ML 10 ML VIAL 34 UNIT SUBCUT (20:48)
[2023-12-19] VITALS (13 sets, daily range): BP systolic 140–161; BP diastolic 64–74; PULSE 74–90; RESP 16–20; TEMP 36.3–37.2; O2SAT 95–97
[2023-12-19] MEDS: Morphine Sulfate 4 MG/ML CARTRIDGE IVPUSH ×3 (03:06→06:09)
[2023-12-19] MEDS: Heparin Sodium,Porcine 5,000 UNIT/ML VIAL 5000 UNIT SUBCUT ×3 (03:07→21:21)
[2023-12-19] MEDS: vancomycin HCL 1,500 MG in 0.9 % Sodium Chloride 500 ML 333.33 MG IV (04:35)
[2023-12-19] MEDS: Acetaminophen 325 MG TABLET 650 MG PO ×3 (04:38→23:08)
[2023-12-19 06:10] LABS: Basophils Percent Auto 0.4 % (0-2); Eosinophils Absolute Auto 0.4 X10*3/uL (0.0-0.4); Eosinophils Percent Auto 3.3 % (0-4); Hematocrit 25.5 % (42.0-52.0); Hemoglobin 7.5 g/dl (14.0-18.0); Imm Gran Abs Auto 0.07 X10*3/uL (0.00-0.03); Imm Gran Pct Auto 0.7 % (0.0-0.4); Lymphocytes Percent Auto 18.4 % (20-40); MANUAL DIFF FLAG NO; Mean Corpuscular HGB Conc 29.4 g/dl (31.0-36.0); Mean Corpuscular Hemoglobin 22.6 pg (27.0-33.0); Mean Corpuscular Volume 76.8 fL (80.0-98.0); Mean Platelet Volume 9.5 fL (9.4-12.4); Monocytes Absolute Auto 1.1 X10*3/uL (0.1-1.2); Monocytes Percent Auto 10.5 % (2-11); Neutrophils Absolute Auto 7.1 x10*3/uL (2.0-8.3); Neutrophils Percent Auto 66.7 % (45-73); Platelet Count 348 X10*3/uL (160-400); Red Blood Count 3.32 X10*6/uL (4.60-5.80); White Blood Count 10.7 X10*3/uL (4.8-10.8)
[2023-12-19 06:24] LABS: Creatinine Clr Calc Pharmacy 100.9; Estimated Glomerular Filt Rate > 60
[2023-12-19 07:19] LABS: Glucose, Whole Blood 118 mg/dL (60-115)
[2023-12-19] MEDS: Aspirin 81 MG TAB.CHEW PO (07:44)
[2023-12-19] MEDS: Gabapentin 600 MG TABLET PO ×3 (07:44→21:21)
[2023-12-19] MEDS: Piperacillin Sodium/Tazobactam 4.5 GM in 0.9 % Sodium Chloride 100 ML IV ×4 (07:44→23:08)
[2023-12-19] MEDS: Metoprolol Succinate ER 50 MG TAB.ER.24H PO (07:44)
[2023-12-19] MEDS: Empagliflozin 10 MG TABLET PO (07:44)
[2023-12-19] MEDS: Clopidogrel Bisulfate 75 MG TABLET PO (07:44)
[2023-12-19] MEDS: Amiodarone HCL 200 MG TABLET PO ×2 (07:45→21:21)
[2023-12-19] MEDS: Spironolactone 25 MG TABLET PO (07:45)
[2023-12-19] MEDS: Losartan Potassium 25 MG TABLET PO (07:46)
--- NOTE | 2023-12-19 08:36 | HO.POSTANES ---
Post Anesthesia Evaluation Post Anesthesia Evaluation Date of Service: 12/19/23 Vital Signs: Vital Signs Temp Pulse Resp BP Pulse Ox O2 Del Method 12/19/23 07:46 146/72 H 12/19/23 07:45 146/72 H 12/19/23 07:44 77 146/72 H 12/19/23 07:11 97.5 F 77 16 146/72 H 95 Room Air 12/19/23 03:00 97.3 F 75 18 140/64 H 96 Room Air 12/18/23 23:21 97.9 F 84 18 125/58 L 97 Room Air Anesthesia: General Endotracheal-GETA Mental Status: Awake Pain Control: Satisfactory (Some pain) Nausea/Vomiting: None Hydration: Adequate Anesthesia-Related Issues: No Anes. Related Issues
--- NOTE | 2023-12-19 10:22 | HO.VASCPN ---
Subjective Subjective Date of Service: 12/19/23 Patient reports: no new complaints and pain is less Interval history: 58-year-old gentleman status post BKA. Appears to be doing relatively well. No events overnight. Pain is improved. He does still complain of some pain. Now for follow-up. H&H is stable post Physical Exam Vital Signs: Vital Signs: Last Vital Signs Temp 97.5 F 12/19/23 07:11 Pulse 77 12/19/23 07:44 Resp 16 12/19/23 07:11 BP 146/72 H 12/19/23 07:46 Pulse Ox 95 12/19/23 07:11 O2 Del Method Room Air 12/19/23 07:11 O2 Flow Rate 1 12/18/23 14:50 BMI result Body Mass Index 32.5 Const: General: cooperative, healthy appearing and no acute distress Orientation/consciousness: oriented to person, oriented to place and oriented to time HEENT: Head: Yes normal to inspection Neck: Carotids: no bruits Chest: Chest palpation & inspection: normal inspection of the chest Resp: Effort & Inspection: normal respiratory effort and able to speak in complete sentences Auscultation: clear to auscultation bilaterally Cardio: Rate: regular rate Heart sounds: S1 normal heart sound present and S2 normal heart sound present GI: Inspection: Yes normal to inspection Skin: Other: Left BKA stump outer dressing removed General skin exam: no rashes or lesions noted Wounds: amputation site Neuro: General: oriented to person, oriented to place, oriented to time and CN's II-XI intact bilaterally Extrem: General: Yes normal to inspection, Yes full ROM and Yes no clubbing, cyanosis or edema Psych: Appearance: grossly normal and well kempt Speech and movement: Normal speech and movement present Affect: normal affect Progress Note: A&P Assessment and plan (1) PAD (peripheral artery disease): Status: Acute Assessment and Plan: In short patient is status post left below-knee amputation. Reports that he is doing fairly well from a pain perspective. Will plan for dressing change for tomorrow. If stable can be transferred to rehab facility. Pain control will be an issue for him as his pain tolerance is quite low. Time Spent With Patient Time: Total time managing care of this patient today ____ minutes. Procedures Date of Service Date of Service: 12/19/23 Quality Stroke Does the patient have a stroke diagnosis?: No VTE Prior VTE?: No VTE Risk Level:: Surgical - very high VTE Device Contraindication: Procedure Contraindicated VTE Drug Contraindication: N/A - Med Ordered
[2023-12-19] MEDS: HYDROmorphone HCl 1 MG/ML SYRINGE IVPUSH ×3 (10:31→19:50)
[2023-12-19 11:11] LABS: Glucose, Whole Blood 134 mg/dL (60-115)
--- NOTE | 2023-12-19 12:03 | HO.PM.IMPN ---
Subjective Subjective Date of Service: 12/19/23 Interval History: Complaining of pain at site BKA, tolerating diet no nausea, no vomiting, no abdominal pain last bowel movement 2 days ago, no shortness of breath, no lightheadedness, no dizziness. Review of Systems All other system reviewed and negative. Physical Exam Vital Signs: Vital Signs: Last Vital Signs Temp 97.9 F 12/19/23 11:25 Pulse 74 12/19/23 11:25 Resp 16 12/19/23 11:25 BP 142/74 H 12/19/23 11:25 Pulse Ox 96 12/19/23 11:25 O2 Del Method Room Air 12/19/23 11:25 O2 Flow Rate 1 12/18/23 14:50 BMI result Body Mass Index 32.5 Const: Other: General awake alert x 3, no acute distress.? Neck no JVD. CVS? regular rate rhythm, Respiratory lungs clear to auscultation, no respiratory distress, no wheeze, no rhonchi. Gastrointestinal abdomen soft, non tender bowel sounds audible, no guarding , no rigidity. 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, left BKA dressing in place no drainage noted Neuro non focal Psych appropriate affect Objective Data Active Medications Acetaminophen (Acetaminophen 325 Mg Tablet) 650 mg PO Q6H PRN PRN Reason: Pain, Mild (Pain Scale 1-3) Last Admin: 12/19/23 04:38 Dose: 650 mg Documented By: LUZ ELENA Amiodarone HCl (Amiodarone Hcl 200 Mg Tablet) 200 mg PO BID [facility] Last Admin: 12/19/23 07:45 Dose: 200 mg Documented By: DESMOND Aspirin (Aspirin 81 Mg Tab.Chew) 81 mg PO DAILY [facility] Last Admin: 12/19/23 07:44 Dose: 81 mg Documented By: DESMOND Atorvastatin Calcium (Atorvastatin Calcium 80 Mg Tablet) 80 mg PO BEDTIME [facility] Last Admin: 12/18/23 18:43 Dose: 80 mg Documented By: TARIQ Clopidogrel Bisulfate (Clopidogrel Bisulfate 75 Mg Tablet) 75 mg PO DAILY [facility] Last Admin: 12/19/23 07:44 Dose: 75 mg Documented By: DESMOND Empagliflozin (Empagliflozin 10 Mg Tablet) 10 mg PO DAILY [facility] Last Admin: 12/19/23 07:44 Dose: 10 mg Documented By: DESMOND Famotidine (Famotidine 20 Mg Tablet) 40 mg PO DAILY PRN PRN Reason: heartburn Gabapentin (Gabapentin 600 Mg Tablet) 600 mg PO TID [facility] Last Admin: 12/19/23 07:44 Dose: 600 mg Documented By: DESMOND Glucose (Glucose Gel 15 Gm Gel..Gram.) 15 gm PO Q15M PRN; Protocol PRN Reason: per Hypoglycemia Standing Ord. Heparin Sodium (Porcine) (Heparin Sodium,Porcine 5,000 Unit/Ml Vial) 5,000 unit SUBCUT Q8H [facility] Last Admin: 12/19/23 11:36 Dose: 5,000 unit Documented By: DESMOND Hydromorphone HCl (Hydromorphone Hcl 1 Mg/Ml Syringe) 1 mg IVPUSH Q4H PRN; Protocol PRN Reason: Pain, Severe (Pain Scale 7-10) Last Admin: 12/19/23 10:31 Dose: 1 mg Documented By: DESMOND Dextrose (D10) 250 mls @ 750 mls/hr IV Q15M PRN; Protocol PRN Reason: per Hypoglycemia Standing Ord. Piperacillin Sod/Tazobactam (Sod 4.5 gm/ Sodium Chloride) 100 mls @ 200 mls/hr IV Q8H [facility] Last Infusion: 12/19/23 09:00 Dose: Infused Documented By: DESMOND Vancomycin HCl 1,500 mg/ (Sodium Chloride) 500 mls @ 333.333 mls/hr IV Q12H [facility] Last Infusion: 12/19/23 06:18 Dose: Infused Documented By: LUZ ELENA Insulin Glargine (Insulin Glargine,Hum.Rec.Anlog 100 Unit/Ml 10 Ml Vial) 34 unit SUBCUT BEDTIME [facility] Last Admin: 12/18/23 20:48 Dose: 34 unit Documented By: LUZ ELENA Insulin Human Lispro (Insulin Lispro 100 Unit/Ml 3 Ml Vial) 0 unit SUBCUT QIDACHS [facility]; Protocol Last Admin: 12/19/23 11:27 Dose: Not Given Documented By: DESMOND Non-Admin Reason: No Insulin Coverage Losartan Potassium (Losartan Potassium 25 Mg Tablet) 25 mg PO DAILY [facility]; Protocol Last Admin: 12/19/23 07:46 Dose: 25 mg Documented By: DESMOND Melatonin (Melatonin 3 Mg Tablet) 6 mg PO BEDTIME PRN PRN Reason: Insomnia Last Admin: 12/18/23 20:49 Dose: 6 mg Documented By: LUZ ELENA Metoprolol Succinate (Metoprolol Succinate Er 50 Mg Tab.Er.24h) 50 mg PO DAILY [facility]; Protocol Last Admin: 12/19/23 07:44 Dose: 50 mg Documented By: DESMOND Oxycodone HCl (Oxycodone Hcl Immed Release 15 Mg Tablet) 15 mg PO Q4H PRN PRN Reason: Pain, Moderate(Pain Scale 4-6) Last Admin: 12/18/23 18:43 Dose: 15 mg Documented By: TARIQ Pharmacy Consult (Consult Rx Vancomycin Dosing) 1 each MISCELLANE DAILY PRN PRN Reason: Consult order Polyethylene Glycol (Polyethylene Glycol 3350 17 Gm Powd.Pack) 17 gm PO DAILY PRN PRN Reason: Constipation Last Admin: 12/17/23 14:02 Dose: 17 gm Documented By: TARIQ Sertraline HCl (Sertraline Hcl 25 Mg Tablet) 75 mg PO BEDTIME [facility] Last Admin: 12/18/23 18:44 Dose: 75 mg Documented By: TARIQ Sodium Chloride (0.9 % Sodium Chloride Flush 3 Ml Syringe) 3 ml IVFLUSH [facility] Last Admin: 12/19/23 07:35 Dose: Not Given Documented By: DESMOND Non-Admin Reason: IV Running Spironolactone (Spironolactone 25 Mg Tablet) 25 mg PO DAILY [facility]; Protocol Last Admin: 12/19/23 07:45 Dose: 25 mg Documented By: DESMOND Labs 12/19/23 05:31 12/19/23 05:31 Labs: Laboratory Results - last 24 hr 12/18/23 12/18/23 12/18/23 15:24 15:32 16:17 MCV MCH MCHC RDW Plt Count MPV Immature Gran % (Auto) Neut % (Auto) Lymph % (Auto) [place] % (Auto) Eos % (Auto) Baso % (Auto) Lymph # (Auto) [place] # (Auto) Eos # (Auto) Baso # (Auto) Abs Immat Gran (auto) Absolute Neuts (auto) Absolute Nucleated RBC Nucleated RBC % (auto) Estim Creat Clear Calc Estimated GFR POC Glucose 109 159 H Random Vancomycin 18.3 12/18/23 12/19/23 12/19/23 19:53 05:31 07:14 MCV 76.8 L MCH 22.6 L MCHC 29.4 L RDW 17.0 H Plt Count 348 MPV 9.5 Immature Gran % (Auto) 0.7 H Neut % (Auto) 66.7 Lymph % (Auto) 18.4 L [place] % (Auto) 10.5 Eos % (Auto) 3.3 Baso % (Auto) 0.4 Lymph # (Auto) 2.0 [place] # (Auto) 1.1 Eos # (Auto) 0.4 Baso # (Auto) 0.0 Abs Immat Gran (auto) 0.07 H Absolute Neuts (auto) 7.1 Absolute Nucleated RBC 0.000 Nucleated RBC % (auto) 0.0 Estim Creat Clear Calc 100.9 Estimated GFR > 60 POC Glucose 235 H 118 H Random Vancomycin 12/19/23 11:06 MCV MCH MCHC RDW Plt Count MPV Immature Gran % (Auto) Neut % (Auto) Lymph % (Auto) [place] % (Auto) Eos % (Auto) Baso % (Auto) Lymph # (Auto) [place] # (Auto) Eos # (Auto) Baso # (Auto) Abs Immat Gran (auto) Absolute Neuts (auto) Absolute Nucleated RBC Nucleated RBC % (auto) Estim Creat Clear Calc Estimated GFR POC Glucose 134 H Random Vancomycin Assessment and Plan (1) Essential hypertension: Status: Acute (2) Atrial fibrillation: Status: Acute Plan 58-year-old man status post left transmetatarsal amputation secondary to nonhealing left foot diabetic ulcer presents for vascular study left lower extremity 1. Nonhealing L transmetatarsal amputation due to diabetic foot ulcer with persistent left foot pain Status post anterior tibial and posterior tibial artery plasty s/p left BKA POD# 1, complaining of pain not well control on current analgesics oxycodone 15 mg q.4 hours and IV morphine 4 mg q.3 hours Will DC IV morphine and place on IV Dilaudid 1 mg q.4 hours as needed, add stool softeners Continue IV vanco/Zosyn day 6, will discuss duration of antibiotic with vascular surgery Follow CBC and electrolytes 2.Hypertension Stable blood pressure continue losartan, metoprolol and Aldactone s 3.Coronary artery disease/PVD -stable well compensated -continue Aspirin, statin, Plavix 4.History of atrial fibrillation (paroxysmal) -continue amiodarone for rate control 5.Diabetes mellitus type 2 -acceptable control on Jardiance, Lantus and insulin sliding scale, hemoglobin Aic 8.2 on 10/19/23 -lispro correctional scale -adjust as indicated 6. Mood disorder continue Zoloft 7. Acute on chronic anemia likely multifactorial due to surgery/dilutional, hold blood transfusion follow H&H, IV fluid discontinued Heparin Full code Patient will need continued inpatient hospitalization for postoperative left BKA care, disposition as per vascular surgery Quality Stroke Does the patient have a stroke diagnosis?: No VTE Prior VTE?: No VTE Risk Level:: Surgical - very high VTE Device Contraindication: Procedure Contraindicated VTE Drug Contraindication: N/A - Med Ordered
[2023-12-19] MEDS: polyethylene glycoL 3350 17 GM POWD.PACK PO (12:47)
[2023-12-19 15:26] LABS: Vancomycin Random 21.4 mcg/mL (15-20)
[2023-12-19 16:12] LABS: Glucose, Whole Blood 228 mg/dL (60-115)
[2023-12-19 16:46] LABS: Vancomycin Random 19.5 mcg/mL (15-20)
[2023-12-19] MEDS: vancomycin HCL 1,250 MG in 0.9 % Sodium Chloride 250 ML 166.67 MG IV (17:08)
[2023-12-19] MEDS: Insulin Lispro 100 UNIT/ML 3 ML VIAL SUBCUT ×2 (17:09→21:22)
[2023-12-19] MEDS: oxyCODONE HCl Immed Release 15 MG TABLET PO ×2 (17:16→21:21)
[2023-12-19] MEDS: 0.9 % Sodium Chloride Flush 3 ML SYRINGE IVFLUSH ×2 (17:18→23:09)
[2023-12-19 20:20] LABS: Glucose, Whole Blood 238 mg/dL (60-115)
[2023-12-19] MEDS: Sertraline HCL 25 MG TABLET 75 MG PO (21:21)
[2023-12-19] MEDS: Atorvastatin Calcium 80 MG TABLET PO (21:21)
[2023-12-19] MEDS: Insulin Glargine,Hum.rec.anlog 100 UNIT/ML 10 ML VIAL 34 UNIT SUBCUT (21:22)
[2023-12-20] VITALS (17 sets, daily range): BP systolic 118–154; BP diastolic 57–75; PULSE 76–82; RESP 16–20; TEMP 36.3–36.8; O2SAT 94–97
[2023-12-20] MEDS: HYDROmorphone HCl 1 MG/ML SYRINGE IVPUSH ×4 (00:33→17:40)
[2023-12-20] MEDS: HYDROmorphone HCl 2 MG/ML VIAL 1.5 MG IVPUSH (03:24)
[2023-12-20] MEDS: Heparin Sodium,Porcine 5,000 UNIT/ML VIAL 5000 UNIT SUBCUT ×3 (03:25→20:54)
[2023-12-20] MEDS: vancomycin HCL 1,250 MG in 0.9 % Sodium Chloride 250 ML 166.67 MG IV (05:54)
[2023-12-20] MEDS: oxyCODONE HCl Immed Release 15 MG TABLET PO ×4 (06:37→20:56)
[2023-12-20 06:55] LABS: Hemoglobin 7.5 g/dl (14.0-18.0); Mean Corpuscular Hemoglobin 22.6 pg (27.0-33.0); Mean Corpuscular Volume 75.3 fL (80.0-98.0); Mean Platelet Volume 9.8 fL (9.4-12.4); Platelet Count 375 X10*3/uL (160-400); Red Blood Count 3.32 X10*6/uL (4.60-5.80); White Blood Count 13.5 X10*3/uL (4.8-10.8)
[2023-12-20 06:56] LABS: Anion Gap 11 (12-20); Blood Urea Nitrogen 9 mg/dL (9-16); Calcium 8.8 mg/dL (8.4-10.2); Carbon Dioxide 27 mmol/L (22-29); Chloride 101 mmol/L (96-108); Creatinine Clr Calc Pharmacy 111.6; Estimated Glomerular Filt Rate > 60; Glucose Random 86 mg/dL (60-115); Potassium 3.8 mmol/L (3.3-5.1); Sodium 135 mmol/L (135-145)
[2023-12-20 07:24] LABS: Glucose, Whole Blood 111 mg/dL (60-115)
[2023-12-20] MEDS: Amiodarone HCL 200 MG TABLET PO ×2 (08:03→20:57)
[2023-12-20] MEDS: Aspirin 81 MG TAB.CHEW PO (08:03)
[2023-12-20] MEDS: Losartan Potassium 25 MG TABLET PO (08:04)
[2023-12-20] MEDS: Clopidogrel Bisulfate 75 MG TABLET PO (08:04)
[2023-12-20] MEDS: Spironolactone 25 MG TABLET PO (08:05)
[2023-12-20] MEDS: Metoprolol Succinate ER 50 MG TAB.ER.24H PO (08:06)
[2023-12-20] MEDS: Gabapentin 600 MG TABLET PO ×3 (08:06→20:56)
[2023-12-20] MEDS: Empagliflozin 10 MG TABLET PO (08:06)
[2023-12-20] MEDS: Piperacillin Sodium/Tazobactam 4.5 GM in 0.9 % Sodium Chloride 100 ML IV ×2 (08:08→15:41)
[2023-12-20] MEDS: polyethylene glycoL 3350 17 GM POWD.PACK PO (08:09)
[2023-12-20] MEDS: Acetaminophen 325 MG TABLET 650 MG PO (10:17)
[2023-12-20] MEDS: Docusate Sodium 100 MG CAPSULE PO (10:18)
[2023-12-20 11:05] LABS: Glucose, Whole Blood 142 mg/dL (60-115)
--- NOTE | 2023-12-20 12:05 | P.PNVS_ITS ---
Subjective Subjective Date of Service: 12/20/23 Patient reports: no new complaints and feels better Interval history: Pleasant 58-year-old gentleman status post BKA. Pain control seems to be still an issue for him. No events overnight. Working with physical therapy and occupational therapy. Physical Exam Vital Signs: Vital Signs: Last Vital Signs Temp 97.3 F 12/20/23 10:36 Pulse 80 12/20/23 10:14 Resp 18 12/20/23 07:49 BP 150/69 H 12/20/23 10:14 Pulse Ox 96 12/20/23 07:49 O2 Del Method Room Air 12/20/23 07:49 O2 Flow Rate 1 12/18/23 14:50 BMI result Body Mass Index 32.5 Const: General: cooperative, healthy appearing and no acute distress Or ientation/consciousness: oriented to person, oriented to place and oriented to time HEENT: Head: Yes normal to inspection Neck: Carotids: no bruits Chest: Chest palpation & inspection: normal inspection of the chest Resp: Effort & Inspection: normal respiratory effort and able to speak in complete sentences Auscultation: clear to auscultation bilaterally Cardio: Rate: regular rate Heart sounds: S1 normal heart sound present and S2 normal heart sound present GI: Inspection: Yes normal to inspection Skin: Other: Stump dressing changed. Healing well General skin exam: no rashes or lesions noted Wounds: no wounds Neuro: General: oriented to person, oriented to place, oriented to time and CN's II-XI intact bilaterally Extrem: General: Yes normal to inspection, Yes full ROM and Yes no clubbing, cyanosis or edema Psych: Appearance: grossly normal and well kempt Speech and movement: Normal speech and movement present Affect: normal affect Progress Note: A&P Assessment and plan (1) PAD (peripheral artery disease): Status: Acute Assessment and Plan: In short patient is doing well status post left BKA. Transfuse as required. Stable from my perspective for discharge to rehab facility. I will be away for the next 2 days. Should any assistance be required Dr. Stewart will be covering. Thank you for allowing us to assist in his care. Time Spent With Patient Time: Total time managing care of this patient today ____ minutes. Procedures Date of Service Date of Service: 12/20/23 Quality Stroke Does the patient have a stroke diagnosis?: No VTE Prior VTE?: No VTE Risk Level:: Surgical - very high VTE Device Contraindication: Procedure Contraindicated VTE Drug Contraindication: N/A - Med Ordered
--- NOTE | 2023-12-20 13:14 | MHC.CM.PN ---
EMR reviewed. Patient not medically cleared for dc at this time. PT/OT recommending [facility]. Patient accepted bed offer from [place]. Auth pending. to bring prosthesis, as he will need to bring to facility with him. CM will continue to follow.
[2023-12-20] MEDS: 0.9 % Sodium Chloride Flush 3 ML SYRINGE IVFLUSH (15:42)
[2023-12-20 16:08] LABS: Glucose, Whole Blood 147 mg/dL (60-115)
--- NOTE | 2023-12-20 16:22 | P.PNIM_ITS ---
Subjective Subjective Date of Service: 12/20/23 Interval History: Complaining of left leg pain, tolerating diet no nausea, no vomiting, no abdominal pain, had a bowel movement, no shortness on breath, feels lightheaded with sitting up, denies bright red blood per rectum, no hematemesis, no other acute issues overnight. Review of Systems All other system reviewed and negative Physical Exam 2 Vital Signs: Vital Signs: Last Vital Signs Temp 97.9 F 12/20/23 15:20 Pulse 78 12/20/23 15:20 Resp 20 12/20/23 15:20 BP 129/61 12/20/23 15:20 Pulse Ox 97 12/20/23 14:00 O2 Del Method Room Air 12/20/23 14:00 O2 Flow Rate 1 12/18/23 14:50 BMI result Body Mass Index 32.5 Const: Other: General awake alert x 3, no acute distress.? Neck no JVD. CVS? regular rate rhythm, Respiratory lungs clear to auscultation, no respiratory distress, no wheeze, no rhonchi. Gastrointestinal abdomen soft, non tender bowel sounds audible, no guarding , no rigidity. 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, left BKA dressing in place no drainage noted (dressing changed by vascular surgery, wound healing well.) Neuro non focal Psych appropriate affect Objective Data Active Medications Acetaminophen (Acetaminophen 325 Mg Tablet) 650 mg PO Q6H PRN PRN Reason: Pain, Mild (Pain Scale 1-3) Last Admin: 12/20/23 10:17 Dose: 650 mg Documented By: TARIQ Amiodarone HCl (Amiodarone Hcl 200 Mg Tablet) 200 mg PO BID [facility] Last Admin: 12/20/23 08:03 Dose: 200 mg Documented By: ABHIJIT Aspirin (Aspirin 81 Mg Tab.Chew) 81 mg PO DAILY [facility] Last Admin: 12/20/23 08:03 Dose: 81 mg Documented By: ABHIJIT Atorvastatin Calcium (Atorvastatin Calcium 80 Mg Tablet) 80 mg PO BEDTIME [facility] Last Admin: 12/19/23 21:21 Dose: 80 mg Documented By: DAWIT Clopidogrel Bisulfate (Clopidogrel Bisulfate 75 Mg Tablet) 75 mg PO DAILY [facility] Last Admin: 12/20/23 08:04 Dose: 75 mg Documented By: ABHIJIT Docusate Sodium (Docusate Sodium 100 Mg Capsule) 100 mg PO BID PRN PRN Reason: constipation Last Admin: 12/20/23 10:18 Dose: 100 mg Documented By: TARIQ Empagliflozin (Empagliflozin 10 Mg Tablet) 10 mg PO DAILY [facility] Last Admin: 12/20/23 08:06 Dose: 10 mg Documented By: ABHIJIT Famotidine (Famotidine 20 Mg Tablet) 40 mg PO DAILY PRN PRN Reason: heartburn Gabapentin (Gabapentin 600 Mg Tablet) 600 mg PO TID [facility] Last Admin: 12/20/23 14:17 Dose: 600 mg Documented By: BEVERLEY Glucose (Glucose Gel 15 Gm Gel..Gram.) 15 gm PO Q15M PRN; Protocol PRN Reason: per Hypoglycemia Standing Ord. Heparin Sodium (Porcine) (Heparin Sodium,Porcine 5,000 Unit/Ml Vial) 5,000 unit SUBCUT Q8H [facility] Last Admin: 12/20/23 12:41 Dose: 5,000 unit Documented By: BEVERLEY Hydromorphone HCl (Hydromorphone Hcl 1 Mg/Ml Syringe) 1 mg IVPUSH Q4H PRN; Protocol PRN Reason: Pain, Severe (Pain Scale 7-10) Last Admin: 12/20/23 12:41 Dose: 1 mg Documented By: BEVERLEY Dextrose (D10) 250 mls @ 750 mls/hr IV Q15M PRN; Protocol PRN Reason: per Hypoglycemia Standing Ord. Piperacillin Sod/Tazobactam (Sod 4.5 gm/ Sodium Chloride) 100 mls @ 200 mls/hr IV Q8H [facility] Last Admin: 12/20/23 15:41 Dose: 200 mls/hr Documented By: SAKINA Vancomycin HCl 1,250 mg/ (Sodium Chloride) 250 mls @ 166.667 mls/hr IV Q12H [facility] Last Infusion: 12/20/23 08:22 Dose: Infused Documented By: BEVERLEY Insulin Glargine (Insulin Glargine,Hum.Rec.Anlog 100 Unit/Ml 10 Ml Vial) 34 unit SUBCUT BEDTIME [facility] Last Admin: 12/19/23 21:22 Dose: 34 unit Documented By: DAWIT Insulin Human Lispro (Insulin Lispro 100 Unit/Ml 3 Ml Vial) 0 unit SUBCUT QIDACHS [facility]; Protocol Last Admin: 12/20/23 11:16 Dose: Not Given Documented By: BEVERLEY Non-Admin Reason: No Insulin Coverage Losartan Potassium (Losartan Potassium 25 Mg Tablet) 25 mg PO DAILY [facility]; Protocol Last Admin: 12/20/23 08:04 Dose: 25 mg Documented By: ABHIJIT Melatonin (Melatonin 3 Mg Tablet) 6 mg PO BEDTIME PRN PRN Reason: Insomnia Last Admin: 12/18/23 20:49 Dose: 6 mg Documented By: LUZ ELENA Metoprolol Succinate (Metoprolol Succinate Er 50 Mg Tab.Er.24h) 50 mg PO DAILY [facility]; Protocol Last Admin: 12/20/23 08:06 Dose: 50 mg Documented By: ABHIJIT Oxycodone HCl (Oxycodone Hcl Immed Release 15 Mg Tablet) 15 mg PO Q4H PRN PRN Reason: Pain, Moderate(Pain Scale 4-6) Last Admin: 12/20/23 14:17 Dose: 15 mg Documented By: BEVERLEY Pharmacy Consult (Consult Rx Vancomycin Dosing) 1 each MISCELLANE DAILY PRN PRN Reason: Consult order Polyethylene Glycol (Polyethylene Glycol 3350 17 Gm Powd.Pack) 17 gm PO DAILY [facility] Last Admin: 12/20/23 08:09 Dose: 17 gm Documented By: ABHIJIT Sertraline HCl (Sertraline Hcl 25 Mg Tablet) 75 mg PO BEDTIME [facility] Last Admin: 12/19/23 21:21 Dose: 75 mg Documented By: DAWIT Sodium Chloride (0.9 % Sodium Chloride Flush 3 Ml Syringe) 3 ml IVFLUSH QSHIFT [facility] Last Admin: 12/20/23 15:42 Dose: 3 ml Documented By: SAKINA Spironolactone (Spironolactone 25 Mg Tablet) 25 mg PO DAILY [facility]; Protocol Last Admin: 12/20/23 08:05 Dose: 25 mg Documented By: ABHIJIT Labs 12/20/23 05:42 12/20/23 05:42 Labs: Laboratory Results - last 24 hr 12/18/23 12/19/23 12/19/23 08:57 16:16 20:15 MCV MCH MCHC RDW Plt Count MPV Absolute Nucleated RBC Nucleated RBC % (auto) Anion Gap Estim Creat Clear Calc Estimated GFR POC Glucose 238 H Random Glucose Calcium Random Vancomycin 19.5 Blood Type A Positive Antibody Screen NEGATIVE Crossmatch See Detail 12/20/23 12/20/23 12/20/23 05:42 07:19 10:57 MCV 75.3 L MCH 22.6 L MCHC 30.0 L RDW 17.0 H Plt Count 375 MPV 9.8 Absolute Nucleated RBC 0.000 Nucleated RBC % (auto) 0.0 Anion Gap 11 L Estim Creat Clear Calc 111.6 Estimated GFR > 60 POC Glucose 111 142 H Random Glucose 86 Calcium 8.8 Random Vancomycin Blood Type Antibody Screen Crossmatch 12/20/23 15:59 MCV MCH MCHC RDW Plt Count MPV Absolute Nucleated RBC Nucleated RBC % (auto) Anion Gap Estim Creat Clear Calc Estimated GFR POC Glucose 147 H Random Glucose Calcium Random Vancomycin Blood Type Antibody Screen Crossmatch Assessment and Plan (1) Essential hypertension: Status: Acute (2) Atrial fibrillation: Status: Acute Plan 58-year-old man status post left transmetatarsal amputation secondary to nonhealing left foot diabetic ulcer presents for vascular study left lower extremity 1. Nonhealing L transmetatarsal amputation due to diabetic foot ulcer with persistent left foot pain Status post anterior tibial and posterior tibial artery plasty s/p left BKA POD# 2, complaining of pain but overall seems to be better controlled with IV Dilaudid 1 mg q.4 hours and oxycodone 15 mg q.4 hours prn Will DC IV vanco/Zosyn day 7 2.Hypertension Stable blood pressure continue losartan, metoprolol and Aldactone s 3.Coronary artery disease/PVD -stable well compensated -continue Aspirin, statin, Plavix 4.History of atrial fibrillation (paroxysmal) -continue amiodarone for rate control 5.Diabetes mellitus type 2 -acceptable control on Jardiance, Lantus and insulin sliding scale, hemoglobin Aic 8.2 on 10/19/23 -lispro correctional scale -adjust as indicated 6. Mood disorder continue Zoloft 7. Acute on chronic anemia likely multifactorial due to surgery/dilutional, since patient is symptomatic with lightheadedness dizziness and weakness will transfuse 1 unit of packed RBC and follow CBC Heparin Full code Patient will need continued inpatient hospitalization for postoperative left BKA care, PT recommend acute rehab machine adjuster leader case trim arranging for safe disposition to rehab facility. Quality Stroke Does the patient have a stroke diagnosis?: No VTE Prior VTE?: No VTE Risk Level:: Surgical - very high VTE Device Contraindication: Procedure Contraindicated VTE Drug Contraindication: N/A - Med Ordered
[2023-12-20 16:45] LABS: Vancomycin Random 19.9 mcg/mL (15-20)
[2023-12-20 20:01] LABS: Glucose, Whole Blood 257 mg/dL (60-115)
[2023-12-20] MEDS: Insulin Glargine,Hum.rec.anlog 100 UNIT/ML 10 ML VIAL 34 UNIT SUBCUT (20:54)
[2023-12-20] MEDS: Insulin Lispro 100 UNIT/ML 3 ML VIAL SUBCUT (20:55)
[2023-12-20] MEDS: Atorvastatin Calcium 80 MG TABLET PO (20:56)
[2023-12-20] MEDS: Sertraline HCL 25 MG TABLET 75 MG PO (20:57)
[2023-12-20] MEDS: Famotidine 20 MG TABLET 40 MG PO (21:59)
[2023-12-21] VITALS (7 sets, daily range): BP systolic 137–169; BP diastolic 70–86; PULSE 73–81; RESP 16–20; TEMP 36–36.7; O2SAT 96–99
[2023-12-21] MEDS: Heparin Sodium,Porcine 5,000 UNIT/ML VIAL 5000 UNIT SUBCUT ×3 (01:00→22:01)
[2023-12-21] MEDS: HYDROmorphone HCl 1 MG/ML SYRINGE IVPUSH ×2 (01:00→08:09)
[2023-12-21] MEDS: 0.9 % Sodium Chloride Flush 3 ML SYRINGE IVFLUSH ×4 (01:00→19:28)
[2023-12-21 06:50] LABS: Hematocrit 29.2 % (42.0-52.0); Hemoglobin 8.9 g/dl (14.0-18.0); Mean Corpuscular HGB Conc 30.5 g/dl (31.0-36.0); Mean Corpuscular Hemoglobin 23.9 pg (27.0-33.0); Mean Corpuscular Volume 78.5 fL (80.0-98.0); Mean Platelet Volume 9.8 fL (9.4-12.4); NRBC Pct Auto 0.2 /100WBC (0.0-0.2); Platelet Count 389 X10*3/uL (160-400); Red Blood Count 3.72 X10*6/uL (4.60-5.80); Red Cell Distribution Width 17.9 % (11.0-16.0)
[2023-12-21 07:40] LABS: Glucose, Whole Blood 127 mg/dL (60-115)
[2023-12-21] MEDS: polyethylene glycoL 3350 17 GM POWD.PACK PO (08:09)
[2023-12-21] MEDS: Metoprolol Succinate ER 50 MG TAB.ER.24H PO (08:10)
[2023-12-21] MEDS: Empagliflozin 10 MG TABLET PO (08:10)
[2023-12-21] MEDS: Clopidogrel Bisulfate 75 MG TABLET PO (08:10)
[2023-12-21] MEDS: Amiodarone HCL 200 MG TABLET PO ×2 (08:10→22:01)
[2023-12-21] MEDS: Losartan Potassium 25 MG TABLET PO (08:10)
[2023-12-21] MEDS: Aspirin 81 MG TAB.CHEW PO (08:10)
[2023-12-21] MEDS: Gabapentin 600 MG TABLET PO ×3 (08:10→22:01)
[2023-12-21] MEDS: Spironolactone 25 MG TABLET PO (08:10)
[2023-12-21] MEDS: oxyCODONE HCl Immed Release 15 MG TABLET PO (11:16)
[2023-12-21 11:23] LABS: Glucose, Whole Blood 115 mg/dL (60-115)
--- NOTE | 2023-12-21 11:31 | MHC.CM.PN ---
PER MD ROUNDS READY FOR DC TO [facility]. AUTH IS PENDING. IMM DELIVERED. PATIENT UPDATED.
--- NOTE | 2023-12-21 12:38 | HO.PM.IMPN ---
Subjective Subjective Date of Service: 12/21/23 Interval History: Complaining of headache, abdominal discomfort feel like having a bowel movement, had good pain control last night, but complaining of left knee and leg pain today, no fevers, no chills , no lightheadedness, no dizziness. Review of Systems All other system reviewed and negative. Physical Exam Vital Signs: Vital Signs: Last Vital Signs Temp 98.0 F 12/21/23 07:00 Pulse 75 12/21/23 11:00 Resp 17 12/21/23 07:00 BP 153/79 H 12/21/23 11:00 Pulse Ox 97 12/21/23 11:00 O2 Del Method Room Air 12/21/23 11:00 O2 Flow Rate 1 12/18/23 14:50 BMI result Body Mass Index 32.5 Const: Other: General awake alert x 3, no acute distress.? Neck no JVD. CVS? regular rate rhythm, Respiratory lungs clear to auscultation, no respiratory distress, no wheeze, no rhonchi. Gastrointestinal abdomen soft, non tender bowel sounds audible, no guarding , no rigidity. 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, left BKA dressing in place no drainage noted (dressing changed by vascular surgery on 12/19, wound healing well.) Neuro non focal Psych appropriate affect Objective Data Active Medications Acetaminophen (Acetaminophen 325 Mg Tablet) 650 mg PO Q6H PRN PRN Reason: Pain, Mild (Pain Scale 1-3) Last Admin: 12/20/23 10:17 Dose: 650 mg Documented By: TARIQ Amiodarone HCl (Amiodarone Hcl 200 Mg Tablet) 200 mg PO BID [facility] Last Admin: 12/21/23 08:10 Dose: 200 mg Documented By: BEVERLEY Aspirin (Aspirin 81 Mg Tab.Chew) 81 mg PO DAILY [facility] Last Admin: 12/21/23 08:10 Dose: 81 mg Documented By: BEVERLEY Atorvastatin Calcium (Atorvastatin Calcium 80 Mg Tablet) 80 mg PO BEDTIME [facility] Last Admin: 12/20/23 20:56 Dose: 80 mg Documented By: SAKINA Clopidogrel Bisulfate (Clopidogrel Bisulfate 75 Mg Tablet) 75 mg PO DAILY [facility] Last Admin: 12/21/23 08:10 Dose: 75 mg Documented By: BEVERLEY Docusate Sodium (Docusate Sodium 100 Mg Capsule) 100 mg PO BID PRN PRN Reason: constipation Last Admin: 12/20/23 10:18 Dose: 100 mg Documented By: TARIQ Empagliflozin (Empagliflozin 10 Mg Tablet) 10 mg PO DAILY [facility] Last Admin: 12/21/23 08:10 Dose: 10 mg Documented By: BEVERLEY Famotidine (Famotidine 20 Mg Tablet) 40 mg PO DAILY PRN PRN Reason: heartburn Last Admin: 12/20/23 21:59 Dose: 40 mg Documented By: SAKINA Gabapentin (Gabapentin 600 Mg Tablet) 600 mg PO TID [facility] Last Admin: 12/21/23 08:10 Dose: 600 mg Documented By: BEVERLEY Glucose (Glucose Gel 15 Gm Gel..Gram.) 15 gm PO Q15M PRN; Protocol PRN Reason: per Hypoglycemia Standing Ord. Heparin Sodium (Porcine) (Heparin Sodium,Porcine 5,000 Unit/Ml Vial) 5,000 unit SUBCUT Q8H [facility] Last Admin: 12/21/23 11:17 Dose: 5,000 unit Documented By: BEVERLEY Hydromorphone HCl (Hydromorphone Hcl 2 Mg Tablet) 1 mg PO Q3H PRN PRN Reason: Pain, Severe (Pain Scale 7-10) Dextrose (D10) 250 mls @ 750 mls/hr IV Q15M PRN; Protocol PRN Reason: per Hypoglycemia Standing Ord. Insulin Glargine (Insulin Glargine,Hum.Rec.Anlog 100 Unit/Ml 10 Ml Vial) 34 unit SUBCUT BEDTIME [facility] Last Admin: 12/20/23 20:54 Dose: 34 unit Documented By: SAKINA Insulin Human Lispro (Insulin Lispro 100 Unit/Ml 3 Ml Vial) 0 unit SUBCUT QIDACHS [facility]; Protocol Last Admin: 12/21/23 11:17 Dose: Not Given Documented By: BEVERLEY Non-Admin Reason: No Insulin Coverage Losartan Potassium (Losartan Potassium 25 Mg Tablet) 25 mg PO DAILY [facility]; Protocol Last Admin: 12/21/23 08:10 Dose: 25 mg Documented By: BEVERLEY Melatonin (Melatonin 3 Mg Tablet) 6 mg PO BEDTIME PRN PRN Reason: Insomnia Last Admin: 12/18/23 20:49 Dose: 6 mg Documented By: LUZ ELENA Metoprolol Succinate (Metoprolol Succinate Er 50 Mg Tab.Er.24h) 50 mg PO DAILY [facility]; Protocol Last Admin: 12/21/23 08:10 Dose: 50 mg Documented By: BEVERLEY Polyethylene Glycol (Polyethylene Glycol 3350 17 Gm Powd.Pack) 17 gm PO DAILY [facility] Last Admin: 12/21/23 08:09 Dose: 17 gm Documented By: BEVERLEY Sertraline HCl (Sertraline Hcl 25 Mg Tablet) 75 mg PO BEDTIME [facility] Last Admin: 12/20/23 20:57 Dose: 75 mg Documented By: SAKINA Sodium Chloride (0.9 % Sodium Chloride Flush 3 Ml Syringe) 3 ml IVFLUSH QSHIFT [facility] Last Admin: 12/21/23 08:15 Dose: 3 ml Documented By: BEVERLEY Spironolactone (Spironolactone 25 Mg Tablet) 25 mg PO DAILY [facility]; Protocol Last Admin: 12/21/23 08:10 Dose: 25 mg Documented By: BEVERLEY Labs 12/21/23 05:42 12/20/23 05:42 Labs: Laboratory Results - last 24 hr 12/18/23 12/20/23 12/20/23 08:57 15:59 16:10 MCV MCH MCHC RDW Plt Count MPV Absolute Nucleated RBC Nucleated RBC % (auto) POC Glucose 147 H Random Vancomycin 19.9 Crossmatch See Detail 12/20/23 12/21/23 12/21/23 19:53 05:42 07:27 MCV 78.5 L MCH 23.9 L MCHC 30.5 L RDW 17.9 H Plt Count 389 MPV 9.8 Absolute Nucleated RBC 0.030 H Nucleated RBC % (auto) 0.2 POC Glucose 257 H 127 H Random Vancomycin Crossmatch 12/21/23 11:11 MCV MCH MCHC RDW Plt Count MPV Absolute Nucleated RBC Nucleated RBC % (auto) POC Glucose 115 Random Vancomycin Crossmatch Assessment and Plan (1) Essential hypertension: Status: Acute (2) Atrial fibrillation: Status: Acute (3) PAD (peripheral artery disease): Status: Acute (4) Below-knee amputation of left lower extremity: Status: Acute Plan 58-year-old man status post left transmetatarsal amputation secondary to nonhealing left foot diabetic ulcer presents for vascular study left lower extremity 1. Nonhealing L transmetatarsal amputation due to diabetic foot ulcer with persistent left foot pain Status post anterior tibial and posterior tibial artery plasty noted to have persistent pain therefore underwent left BKA on 12/17 , postprocedure noted to have acute on chronic anemia likely multifactorial due to surgery and dilutional, since patient was symptomatic with lightheadedness and dizziness, treated with 1 unit of packed RBC, hematocrit improved, was treated with IV Dilaudid and oxycodone for pain control, received 7 days of IV Zosyn and vancomycin, does not require further antibiotics, was evaluated by Physical therapy and Occupational therapy and now being discharged to acute rehab for management of bilateral BKA, will need follow-up with Dr. Sheppard and will be discharged on Tylenol scheduled 3 times a day and as needed Dilaudid 1 mg q.4 hours, gradually Dilaudid dose can be weaned and can be transitioned to oxycodone, continue stool softeners.. 2.Hypertension noted to have stable blood pressures continue losartan, metoprolol and Aldactone 3.Coronary artery disease/PVD -stable well compensated,continue Aspirin, statin, Plavix. 4.History of atrial fibrillation (paroxysmal) now in normal sinus rhythm, continue amiodarone. 5.Diabetes mellitus type 2 -acceptable control on Jardiance, Lantus and insulin sliding scale, hemoglobin Aic 8.2 on 10/19/23 -lispro correctional scale -adjust as indicated 6. Mood disorder continue Zoloft. Heparin subQ for DVT prophylaxis Full code Patient will need continued inpatient hospitalization for postoperative left BKA care, PT recommend acute rehab registered nurse hh case manager arranging for safe disposition to rehab facility. Quality Stroke Does the patient have a stroke diagnosis?: No VTE Prior VTE?: No VTE Risk Level:: Surgical - very high VTE Device Contraindication: Procedure Contraindicated VTE Drug Contraindication: N/A - Med Ordered
[2023-12-21] MEDS: HYDROmorphone HCl 2 MG TABLET 1 MG PO ×4 (12:45→22:32)
[2023-12-21] MEDS: Celecoxib 200 MG CAPSULE PO (12:45)
--- NOTE | 2023-12-21 12:52 | PM.DS ---
DS: Providers Provider Date of Service: 12/21/23 Date of admission: 12/13/23 11:45 Primary care physician: Shanta Haney MD Consults: 12/13/23 11:45 Consult to Hospitalist Routine Comment: Consulting Provider: Hospitalist Reason For Exam: Diabetes management DS: Diagnosis Discharge Diagnosis (1) Essential hypertension: Status: Acute (2) Atrial fibrillation: Status: Acute (3) PAD (peripheral artery disease): Status: Acute (4) Below-knee amputation of left lower extremity: Status: Acute DS: Summary Hospital Course Hospital Course: History of presenting illness Date of Service: 12/14/23 Chief complaint: Nonhealing diabetic foot ulcer Narrative: Pierre West is a 58 year old male who has had a previous right BKA. Most recently he underwent a left transmetatarsal amputation which has been poorly healing. Been seen in the office regarding this. It continued to be a source of pain and discomfort for him. on 12/13/23 he underwent endovascular intervention regarding that left lower extremity, it did improve flow down the below-knee vessels but there was concern about that trans met amp along with pain. He was subsequently admitted. Will plan for pain control and antibiotics. Hospital course 58-year-old man status post left transmetatarsal amputation secondary to nonhealing left foot diabetic ulcer presents to vascular surgery for left lower extremity pain, and underwent anterior tibial and posterior tibial artery plasty noted to have persistent pain and poor healing of transmetatarsal amputation, therefore underwent left BKA on 12/17 , postprocedure noted to have acute on chronic anemia likely multifactorial due to surgery and dilutional, since patient was symptomatic with lightheadedness and dizziness, treated with 1 unit of packed RBC, hematocrit improved, was treated with IV Dilaudid and oxycodone for pain control, received 7 days of IV Zosyn and vancomycin, does not require further antibiotics, was evaluated by Physical therapy and Occupational therapy and now being discharged to acute rehab for management of bilateral BKA, will need follow-up with Dr. Sheppard and will be discharged on Tylenol scheduled 3 times a day and as needed Dilaudid 1 mg q.4 hours, gradually Dilaudid dose can be weaned and can be transitioned to oxycodone, continue stool softeners.Wound care upon discharge to amputation site: xeroform, 4x4 and Kerlix wrap to be changed daily. Please call Dr. Sheppard at [phone] for 2 week follow up for suture and staple removal Hypertension noted to have stable blood pressures continue losartan, metoprolol and Aldactone Coronary artery disease/PVD -stable well compensated,continue Aspirin, statin, Plavix. History of atrial fibrillation (paroxysmal) now in normal sinus rhythm, continue amiodarone. Diabetes mellitus type 2 -acceptable control on Jardiance , Lantus and insulin sliding scale, hemoglobin Aic 8.2 on 10/19/23 Mood disorder continue Zoloft. Physical Exam Vital Signs: Vital Signs: Last Vital Signs Temp 98.0 F 12/21/23 07:00 Pulse 75 12/21/23 11:00 Resp 17 12/21/23 07:00 BP 153/79 H 12/21/23 11:00 Pulse Ox 97 12/21/23 11:00 O2 Del Method Room Air 12/21/23 11:00 O2 Flow Rate 1 12/18/23 14:50 BMI result Body Mass Index 32.5 Const: Other: General awake alert x 3, no acute distress.? Neck no JVD. CVS? regular rate rhythm, Respiratory lungs clear to auscultation, no respiratory distress, no wheeze, no rhonchi. Gastrointestinal abdomen soft, non tender bowel sounds audible, no guarding , no rigidity. 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, left BKA dressing in place no drainage noted (dressing changed by vascular surgery on 12/19, wound healing well.) Neuro non focal Psych appropriate affect DS: Data Data Completed and Pending Completed studies during hospitalization [Text1]: Pending at discharge 12/18/23 13:31 Surgical [PTH] Routine Procedures Detachment at Left 1st Toe, Complete, Open Approach (10/18/23) Detachment at Left 5th Toe, Complete, Open Approach (10/18/23) Detachment at Left Foot, Complete 2nd Ray, Open Approach (11/27/23) Detachment at Left Foot, Complete 3rd Ray, Open Approach (11/27/23) Detachment at Left Foot, Complete 4th Ray, Open Approach (11/27/23) Detachment at Right 1st Toe, Complete, Open Approach (08/18/21) Detachment at Right Lower Leg, High, Open Approach (08/18/21) Dilation of Left Peroneal Artery using Drug-Coated Balloon, Percutaneous Approach (10/18/23) Dilation of Right Ureter with Intraluminal Device, Via Natural or Artificial Opening Endoscopic (06/21/20) Excision of Right Tarsal, Open Approach (08/18/21) Extirpation of Matter from Right Ureter, Via Natural or Artificial Opening Endoscopic (06/21/20) Fluoroscopy of Right Kidney, Ureter and Bladder (06/21/20) Insertion of Infusion Device into Superior Vena Cava, Percutaneous Approach (08/18/21) Labs on day of discharge: Laboratory Results - last 24 hr 12/18/23 12/20/23 12/20/23 08:57 15:59 16:10 WBC RBC Hgb Hct MCV MCH MCHC RDW Plt Count MPV Absolute Nucleated RBC Nucleated RBC % (auto) POC Glucose 147 H Random Vancomycin 19.9 Crossmatch See Detail 12/20/23 12/21/23 12/21/23 19:53 05:42 07:27 WBC 15.0 H RBC 3.72 L Hgb 8.9 L Hct 29.2 L MCV 78.5 L MCH 23.9 L MCHC 30.5 L RDW 17.9 H Plt Count 389 MPV 9.8 Absolute Nucleated RBC 0.030 H Nucleated RBC % (auto) 0.2 POC Glucose 257 H 127 H Random Vancomycin Crossmatch 12/21/23 11:11 WBC RBC Hgb Hct MCV MCH MCHC RDW Plt Count MPV Absolute Nucleated RBC Nucleated RBC % (auto) POC Glucose 115 Random Vancomycin Crossmatch Discharge Plan Discharge Anticipated Discharge Date/Time: 12/21/23 12:32 Patient Disposition: Xfer Inpatient Rehab Fac Discharge Diagnosis: Status post left BKA for non healing left transmetatarsal amputation Acute on chronic anemia Referrals: Shanta Haney MD [Primary Care Provider] - 1 Week Discharge Medications: New hydromorphone [Dilaudid] 2 mg tablet 1 mg PO Q4-6H PRN (Reason: pain 8-10) Qty: 14 0RF Rx Instructions: Partial Fill upon patient request. melatonin 3 mg Tablet 6 mg PO BEDTIME PRN (Reason: Insomnia) Qty: 30 0RF docusate sodium 100 mg Capsule 100 mg PO BID PRN (Reason: constipation) Qty: 60 0RF polyethylene glycol 3350 17 gram Powder In Packet 17 g PO DAILY Qty: 30 0RF acetaminophen 325 mg Tablet 650 mg PO TID Qty: 60 0RF Continued (DME) Bedside commode See Rx Instructions .Route .MEDSUPPLY Qty: 1 0RF Rx Instructions: As directed (DME) walker with wheels See Rx Instructions .Route .MEDSUPPLY Qty: 1 0RF Rx Instructions: As directed (DME) pen needle, diabetic [BD Ultra-Fine Short Pen Needle] 31 gauge x 5/16 needle See Rx Instructions .ROUTE .COMPLEX Qty: 100 5RF Dose Instruction: USE MARÍA LO INDICADO BENNETT VECES AL LIZZIE ANTES DE LAS COMIDAS Rx Instructions: USE MARÍA LO INDICADO BENNETT VECES AL LIZZIE ANTES DE LAS COMIDAS (DME) recliner See Rx Instructions .Route .MEDSUPPLY Qty: 1 0RF Rx Instructions: As directed (DME) FreeStyle Frank 2 [place] Misc See Rx Instructions .Route Qty: 1 0RF Rx Instructions: As directed (DME) FreeStyle Frank 2 Sensor Kit See Rx Instructions .Route Qty: 2 8RF Rx Instructions: As directed change every 14 days aspirin 81 mg tablet,chewable 81 mg PO DAILY Qty: 90 1RF metoprolol succinate 50 mg tablet extended release 24 hr 50 mg PO DAILY Qty: 90 1RF famotidine 40 mg tablet 40 mg PO DAILY PRN (Reason: heartburn) melatonin 5 mg Tablet 5 mg PO BEDTIME PRN (Reason: Sleep) amiodarone 200 mg tablet 200 mg PO BID pantoprazole 40 mg tablet,delayed release (DR/EC) 40 mg PO DAILY@0630 lidocaine 5 % adhesive patch,medicated 1 patch topical DAILY PRN (Reason: moderate pain) insulin glargine [Lantus Solostar U-100 Insulin] 100 unit/mL (3 mL) insulin pen 34 unit subcut BEDTIME clopidogrel 75 mg tablet 75 mg PO DAILY dapagliflozin propanediol [Farxiga] 10 mg tablet 10 mg PO DAILY losartan 25 mg tablet 25 mg PO DAILY sertraline 50 mg tablet 75 mg PO BEDTIME spironolactone 25 mg tablet 25 mg PO DAILY gabapentin 600 mg tablet 600 mg PO TID Qty: 90 4RF (DME) blood-glucose meter [FreeStyle Lite Meter] Kit See Rx Instructions .Route Rx Instructions: As directed (DME) FreeStyle Lite Strips Strip See Rx Instructions .Route Rx Instructions: As directed atorvastatin 80 mg tablet 80 mg PO BEDTIME Discontinued oxycodone-acetaminophen [Percocet] 5-325 mg tablet 1 tab PO Q6H PRN (Reason: pain) Qty: 20 0RF Rx Instructions: Partial Fill upon patient request. tramadol 50 mg tablet 50 mg PO Q6H PRN (Reason: pain) Diet: Diabetic diet Activity on Discharge: As tolerated Stand Alone Forms: Patient Portal Discharge page Print Language: Trinidadian Activity Restrictions/Additional Instructions: Wound care upon discharge to amputation site: xeroform, 4x4 and Kerlix wrap to be changed daily. Please call Dr. Sheppard at [phone] for 2 week follow up for suture and staple removal Care Plan Goals: Continue physical therapy and occupational therapy for left BKA Take Dilaudid 1 mg by mouth q.3 hours as needed for pain Continue stool softeners avoid constipation Health Concerns: Diabetes mellitus Lantus and pre meal insulin 10 units, follow diabetic diet and monitor blood sugars poc q.i.d.achs, good blood sugar control Continue all home medications as prescribed Plan of Treatment: Outpatient follow-up with primary care physician call for appointment Outpatient follow-up with Dr. Sheppard in 2 weeks for follow-up of sutures and staple removal Assessment: As above
[2023-12-21] MEDS: Acetaminophen 325 MG TABLET 650 MG PO ×2 (14:31→22:00)
[2023-12-21 16:01] LABS: Glucose, Whole Blood 193 mg/dL (60-115)
[2023-12-21] MEDS: Insulin Lispro 100 UNIT/ML 3 ML VIAL SUBCUT ×2 (17:20→22:02)
[2023-12-21 19:48] LABS: Glucose, Whole Blood 196 mg/dL (60-115)
[2023-12-21] MEDS: Sertraline HCL 25 MG TABLET 75 MG PO (22:00)
[2023-12-21] MEDS: Atorvastatin Calcium 80 MG TABLET PO (22:01)
[2023-12-21] MEDS: Insulin Glargine,Hum.rec.anlog 100 UNIT/ML 10 ML VIAL 34 UNIT SUBCUT (22:02)
[2023-12-22] VITALS (9 sets, daily range): BP systolic 139–171; BP diastolic 63–86; PULSE 69–76; RESP 16–18; TEMP 36–36.6; O2SAT 97–99
[2023-12-22] MEDS: Heparin Sodium,Porcine 5,000 UNIT/ML VIAL 5000 UNIT SUBCUT ×2 (05:06→11:39)
[2023-12-22] MEDS: HYDROmorphone HCl 2 MG TABLET 1 MG PO ×4 (05:08→15:23)
[2023-12-22 07:40] LABS: Glucose, Whole Blood 133 mg/dL (60-115)
[2023-12-22] MEDS: Amiodarone HCL 200 MG TABLET PO (08:38)
[2023-12-22] MEDS: Acetaminophen 325 MG TABLET 650 MG PO ×2 (08:38→14:20)
[2023-12-22] MEDS: Aspirin 81 MG TAB.CHEW PO (08:38)
[2023-12-22] MEDS: Metoprolol Succinate ER 50 MG TAB.ER.24H PO (08:38)
[2023-12-22] MEDS: Clopidogrel Bisulfate 75 MG TABLET PO (08:39)
[2023-12-22] MEDS: Losartan Potassium 25 MG TABLET PO ×2 (08:39→14:20)
[2023-12-22] MEDS: Gabapentin 600 MG TABLET PO ×2 (08:39→14:21)
[2023-12-22] MEDS: Celecoxib 200 MG CAPSULE PO (08:39)
[2023-12-22] MEDS: Empagliflozin 10 MG TABLET PO (08:39)
[2023-12-22] MEDS: 0.9 % Sodium Chloride Flush 3 ML SYRINGE IVFLUSH ×2 (08:41→17:15)
[2023-12-22] MEDS: Spironolactone 25 MG TABLET PO (08:41)
[2023-12-22 11:31] LABS: Glucose, Whole Blood 164 mg/dL (60-115)
[2023-12-22] MEDS: Insulin Lispro 100 UNIT/ML 3 ML VIAL SUBCUT ×2 (11:39→17:14)
--- NOTE | 2023-12-22 12:32 | HO.PM.IMPN ---
Subjective Subjective Date of Service: 12/22/23 Interval History: Seen in follow up for non healing left foot diabetic ulcer s/p anterior and posterior tibial artery plasty with persistant pain and poor healing s/p L BKA Interval history: Still complaining of incisional pain. No fevers, chills, purulent drainage Review of Systems All other system reviewed and negative. Physical Exam Vital Signs: Vital Signs: Last Vital Signs Temp 97.9 F 12/22/23 11:14 Pulse 69 12/22/23 11:14 Resp 18 12/22/23 11:14 BP 153/81 H 12/22/23 11:14 Pulse Ox 99 12/22/23 11:14 O2 Del Method Room Air 12/22/23 11:14 O2 Flow Rate 1 12/18/23 14:50 BMI result Body Mass Index 32.5 Const: Other: General awake alert x 3, no acute distress.? Neck no JVD. CVS? regular rate rhythm, Respiratory lungs clear to auscultation, no respiratory distress, no wheeze, no rhonchi. Gastrointestinal abdomen soft, non tender bowel sounds audible, no guarding , no rigidity. 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, left BKA dressing in place no drainage noted (dressing changed by vascular surgery on 12/19, wound healing well.). Sutures and blanca in place. No erythema, warmth, or purulent drainage Neuro non focal Psych appropriate affect Objective Data Active Medications Acetaminophen (Acetaminophen 325 Mg Tablet) 650 mg PO Q6H PRN PRN Reason: Pain, Mild (Pain Scale 1-3) Last Admin: 12/20/23 10:17 Dose: 650 mg Documented By: TARIQ Acetaminophen (Acetaminophen 325 Mg Tablet) [address] [facility] Last Admin: 12/22/23 08:38 Dose: 650 mg Documented By: BEVERLEY Amiodarone HCl (Amiodarone Hcl 200 Mg Tablet) [address] [facility] Last Admin: 12/22/23 08:38 Dose: 200 mg Documented By: BEVERLEY Aspirin (Aspirin 81 Mg Tab.Chew) [address] [facility] Last Admin: 12/22/23 08:38 Dose: 81 mg Documented By: BEVERLEY Atorvastatin Calcium (Atorvastatin Calcium 80 Mg Tablet) [address] [facility] Last Admin: 12/21/23 22:01 Dose: 80 mg Documented By: BRISEIDA Celecoxib (Celecoxib 200 Mg Capsule) [address] [facility] Stop: 12/27/23 09:01 Last Admin: 12/22/23 08:39 Dose: 200 mg Documented By: BEVERLEY Clopidogrel Bisulfate (Clopidogrel Bisulfate 75 Mg Tablet) [address] [facility] Last Admin: 12/22/23 08:39 Dose: 75 mg Documented By: BEVERLEY Docusate Sodium (Docusate Sodium 100 Mg Capsule) 100 mg PO BID PRN PRN Reason: constipation Last Admin: 12/20/23 10:18 Dose: 100 mg Documented By: TARIQ Empagliflozin (Empagliflozin 10 Mg Tablet) [address] [facility] Last Admin: 12/22/23 08:39 Dose: 10 mg Documented By: BEVERLEY Famotidine (Famotidine 20 Mg Tablet) 40 mg PO DAILY PRN PRN Reason: heartburn Last Admin: 12/20/23 21:59 Dose: 40 mg Documented By: SAKINA Gabapentin (Gabapentin 600 Mg Tablet) [address] [facility] Last Admin: 12/22/23 08:39 Dose: 600 mg Documented By: BEVERLEY Glucose (Glucose Gel 15 Gm Gel..Gram.) 15 gm PO Q15M PRN; Protocol PRN Reason: per Hypoglycemia Standing Ord. Heparin Sodium (Porcine) (Heparin Sodium,Porcine 5,000 Unit/Ml Vial) 5,[address] [facility] Last Admin: 12/22/23 11:39 Dose: 5,000 unit Documented By: BEVERLEY Hydromorphone HCl (Hydromorphone Hcl 2 Mg Tablet) 1 mg PO Q3H PRN PRN Reason: Pain, Severe (Pain Scale 7-10) Last Admin: 12/22/23 11:39 Dose: 1 mg Documented By: BEVERLEY Dextrose (D10) 250 mls @ 750 mls/hr IV Q15M PRN; Protocol PRN Reason: per Hypoglycemia Standing Ord. Insulin Glargine (Insulin Glargine,Hum.Rec.Anlog 100 Unit/Ml 10 Ml Vial) [address] [facility] Last Admin: 12/21/23 22:02 Dose: 34 unit Documented By: BRISEIDA Insulin Human Lispro (Insulin Lispro 100 Unit/Ml 3 Ml Vial) [address] [facility]; Protocol Last Admin: 12/22/23 11:39 Dose: 2 unit Documented By: BEVERLEY Losartan Potassium (Losartan Potassium 25 Mg Tablet) [address] [facility]; Protocol Last Admin: 12/22/23 08:39 Dose: 25 mg Documented By: BEVERLEY Melatonin (Melatonin 3 Mg Tablet) 6 mg PO BEDTIME PRN PRN Reason: Insomnia Last Admin: 12/18/23 20:49 Dose: 6 mg Documented By: LUZ ELENA Metoprolol Succinate (Metoprolol Succinate Er 50 Mg Tab.Er.24h) [address] [facility]; Protocol Last Admin: 12/22/23 08:38 Dose: 50 mg Documented By: BEVERLEY Polyethylene Glycol (Polyethylene Glycol 3350 17 Gm Powd.Pack) [address] [facility] Last Admin: 12/22/23 08:41 Dose: Not Given Documented By: BEVERLEY Non-Admin Reason: Patient Refused Sertraline HCl (Sertraline Hcl 25 Mg Tablet) [address] [facility] Last Admin: 12/21/23 22:00 Dose: 75 mg Documented By: BRISEIDA Sodium Chloride (0.9 % Sodium Chloride Flush 3 Ml Syringe) [facility] Last Admin: 12/22/23 08:41 Dose: 3 ml Documented By: BEVERLEY Spironolactone (Spironolactone 25 Mg Tablet) [address] [facility]; Protocol Last Admin: 12/22/23 08:41 Dose: 25 mg Documented By: BEVERLEY Comments: barcode torn Labs 12/21/23 05:42 12/20/23 05:42 Labs: Laboratory Results - last 24 hr 12/21/23 12/21/23 12/22/23 15:57 19:21 07:22 POC Glucose 193 H 196 H 133 H 12/22/23 11:16 POC Glucose 164 H Assessment and Plan (1) Essential hypertension: Status: Acute (2) Atrial fibrillation: Status: Acute (3) PAD (peripheral artery disease): Status: Acute (4) Below-knee amputation of left lower extremity: Status: Acute Plan 58-year-old man status post left transmetatarsal amputation secondary to nonhealing left foot diabetic ulcer presents for vascular study left lower extremity 1. Nonhealing L transmetatarsal amputation due to diabetic foot ulcer with persistent left foot pain Status post anterior tibial and posterior tibial artery plasty noted to have persistent pain therefore underwent left BKA on 12/17 , postprocedure noted to have acute on chronic anemia likely multifactorial due to surgery and dilutional, since patient was symptomatic with lightheadedness and dizziness, treated with 1 unit of packed RBC, hematocrit improved, was treated with IV Dilaudid and oxycodone for pain control, received 7 days of IV Zosyn and vancomycin, does not require further antibiotics, was evaluated by Physical therapy and Occupational therapy and now being discharged to acute rehab for management of bilateral BKA, will need follow-up with Dr. Sheppard and will be discharged on Tylenol scheduled 3 times a day and as needed Dilaudid 1 mg q.4 hours, gradually Dilaudid dose can be weaned and can be transitioned to oxycodone, continue stool softeners.. 2.Hypertension noted to have stable blood pressures continue losartan (increased to 50mg daily 12/21), metoprolol and Aldactone 3.Coronary artery disease/PVD -stable well compensated,continue Aspirin, statin, Plavix. 4.History of atrial fibrillation (paroxysmal) now in normal sinus rhythm, continue amiodarone. 5.Diabetes mellitus type 2 -acceptable control on Jardiance, Lantus and insulin sliding scale, hemoglobin Aic 8.2 on 10/19/23 -lispro correctional scale -adjust as indicated 6. Mood disorder continue Zoloft. Heparin subQ for DVT prophylaxis Full code Patient will need continued inpatient hospitalization for postoperative left BKA care, PT recommend acute rehab shelter case manager arranging for safe disposition to rehab facility. Quality Stroke Does the patient have a stroke diagnosis?: No VTE Prior VTE?: No VTE Risk Level:: Surgical - very high VTE Device Contraindication: Procedure Contraindicated VTE Drug Contraindication: N/A - Med Ordered
--- NOTE | 2023-12-22 13:52 | MHC.CM.PN ---
Addendum entered by Amber Krueger RN 12/22/23 14:45: IMM was delivered 12/20 Addendum entered by Amber Krueger RN 12/22/23 14:43: Auth obtained. Transport booked for 1800. Patient, RN and hospitalist aware. Original Note: Medically cleared and awaiting insurance auth for [facility] [place]. CM will continue to follow.
--- NOTE | 2023-12-22 14:47 | PM.DS ---
DS: Providers Provider Date of Service: 12/22/23 Date of admission: 12/13/23 11:45 Date of discharge: 12/22/23 Primary care physician: Shanta Haney MD Admitting clinician: Berto Sheppard Attending physician on admission: Berto Sheppard Consults: 12/13/23 11:45 Consult to Hospitalist Routine Comment: Consulting Provider: Hospitalist Reason For Exam: Diabetes management Attending physician on discharge: Thong Baig Discharging clinician: Eda Chowdhury DS: Diagnosis Discharge Diagnosis (1) Essential hypertension: Status: Acute (2) Atrial fibrillation: Status: Acute (3) PAD (peripheral artery disease): Status: Acute (4) Below-knee amputation of left lower extremity: Status: Acute DS: Summary Hospital Course Hospital Course: History of presenting illness Date of Service: 12/14/23 Chief complaint: Nonhealing diabetic foot ulcer Narrative: Pierre West is a 58 year old male who has had a previous right BKA. Most recently he underwent a left transmetatarsal amputation which has been poorly healing. Been seen in the office regarding this. It continued to be a source of pain and discomfort for him. on 12/13/23 he underwent endovascular intervention regarding that left lower extremity, it did improve flow down the below-knee vessels but there was concern about that trans met amp along with pain. He was subsequently admitted. Will plan for pain control and antibiotics. Hospital course 58-year-old man status post left transmetatarsal amputation secondary to nonhealing left foot diabetic ulcer presents to vascular surgery for left lower extremity pain, and underwent anterior tibial and posterior tibial artery plasty noted to have persistent pain and poor healing of transmetatarsal amputation, therefore underwent left BKA on 12/17 , postprocedure noted to have acute on chronic anemia likely multifactorial due to surgery and dilutional, since patient was symptomatic with lightheadedness and dizziness, treated with 1 unit of packed RBC, hematocrit improved, was treated with IV Dilaudid and oxycodone for pain control, received 7 days of IV Zosyn and vancomycin, does not require further antibiotics, was evaluated by Physical therapy and Occupational therapy and now being discharged to acute rehab for management of bilateral BKA, will need follow-up with Dr. Sheppard and will be discharged on Tylenol scheduled 3 times a day and as needed Dilaudid 1 mg q.4 hours, gradually Dilaudid dose can be weaned and can be transitioned to oxycodone, continue stool softeners.Wound care upon discharge to amputation site: xeroform, 4x4 and Kerlix wrap to be changed daily. Please call Dr. Sheppard at [phone] for 2 week follow up for suture and staple removal Hypertension noted to have stable blood pressures continue losartan, metoprolol and Aldactone Coronary artery disease/PVD -stable well compensated,continue Aspirin, statin, Plavix. History of atrial fibrillation (paroxysmal) now in normal sinus rhythm, continue amiodarone. Diabetes mellitus type 2 -acceptable control on Jardiance , Lantus and insulin sliding scale, hemoglobin Aic 8.2 on 10/19/23 Mood disorder continue Zoloft. Status at Discharge Functional status at discharge: wheelchair bound Overall status at discharge: patient is progressing back to baseline Time Attestation Discharge Coordination Time (in mins): 45 Quality: Safe Use of Opioids Does Pt have an Active Cancer Diagnosis on the Problem List?: No Quality: Stroke Does the patient have a stroke diagnosis?: No Physical Exam Vital Signs: Vital Signs: Last Vital Signs Temp 97.9 F 12/22/23 11:14 Pulse 69 12/22/23 11:14 Resp 18 12/22/23 11:14 BP 153/81 H 12/22/23 14:20 Pulse Ox 99 12/22/23 11:14 O2 Del Method Room Air 12/22/23 11:14 O2 Flow Rate 1 12/18/23 14:50 BMI result Body Mass Index 32.5 General awake alert x 3, no acute distress.? Neck no JVD. CVS? regular rate rhythm, Respiratory lungs clear to auscultation, no respiratory distress, no wheeze, no rhonchi. Gastrointestinal abdomen soft, non tender bowel sounds audible, no guarding , no rigidity. 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, left BKA dressing in place no drainage noted (dressing changed by vascular surgery on 12/19, wound healing well.). Sutures and blanca in place. No erythema, warmth, or purulent drainage Neuro non focal Psych appropriate affect DS: Data Data Completed and Pending Completed studies during hospitalization [Text1]: Pending at discharge 12/18/23 13:31 Surgical [PTH] Routine Procedures Detachment at Left 1st Toe, Complete, Open Approach (10/18/23) Detachment at Left 5th Toe, Complete, Open Approach (10/18/23) Detachment at Left Foot, Complete 2nd Ray, Open Approach (11/27/23) Detachment at Left Foot, Complete 3rd Ray, Open Approach (11/27/23) Detachment at Left Foot, Complete 4th Ray, Open Approach (11/27/23) Detachment at Right 1st Toe, Complete, Open Approach (08/18/21) Detachment at Right Lower Leg, High, Open Approach (08/18/21) Dilation of Left Peroneal Artery using Drug-Coated Balloon, Percutaneous Approach (10/18/23) Dilation of Right Ureter with Intraluminal Device, Via Natural or Artificial Opening Endoscopic (06/21/20) Excision of Right Tarsal, Open Approach (08/18/21) Extirpation of Matter from Right Ureter, Via Natural or Artificial Opening Endoscopic (06/21/20) Fluoroscopy of Right Kidney, Ureter and Bladder (06/21/20) Insertion of Infusion Device into Superior Vena Cava, Percutaneous Approach (08/18/21) Labs on day of discharge: Laboratory Results - last 24 hr 12/21/23 12/21/23 12/22/23 15:57 19:21 07:22 POC Glucose 193 H 196 H 133 H 12/22/23 11:16 POC Glucose 164 H Discharge Plan Discharge Anticipated Discharge Date/Time: 12/21/23 12:32 Patient Disposition: Xfer Inpatient Rehab Fac Discharge Diagnosis: Status post left BKA for non healing left transmetatarsal amputation Acute on chronic anemia Referrals: [facility] [Outside] - 1 Day (acute rehab) Shanta Haney MD [Primary Care Provider] - 1 Week Discharge Medications: New hydromorphone [Dilaudid] 2 mg tablet 1 mg PO Q4-6H PRN (Reason: pain 8-10) Qty: 14 0RF Rx Instructions: Partial Fill upon patient request. hydromorphone 2 mg Tablet 1 mg PO Q3H PRN (Reason: Pain, Severe (Pain Scale 7-10)) Qty: 30 0RF Rx Instructions: Partial Fill upon patient request. melatonin 3 mg Tablet 6 mg PO BEDTIME PRN (Reason: Insomnia) Qty: 30 0RF docusate sodium 100 mg Capsule 100 mg PO BID PRN (Reason: constipation) Qty: 60 0RF celecoxib 200 mg Capsule 200 mg PO DAILY Qty: 5 0RF polyethylene glycol 3350 17 gram Powder In Packet 17 g PO DAILY Qty: 30 0RF acetaminophen 325 mg Tablet 650 mg PO TID Qty: 90 0RF Continued (DME) Bedside commode See Rx Instructions .Route .MEDSUPPLY Qty: 1 0RF Rx Instructions: As directed (DME) walker with wheels See Rx Instructions .Route .MEDSUPPLY Qty: 1 0RF Rx Instructions: As directed (DME) pen needle, diabetic [BD Ultra-Fine Short Pen Needle] 31 gauge x 5/16 needle See Rx Instructions .ROUTE .COMPLEX Qty: 100 5RF Dose Instruction: USE MARÍA LO INDICADO BENNETT VECES AL LIZZIE ANTES DE LAS COMIDAS Rx Instructions: USE MARÍA LO INDICADO BENNETT VECES AL LIZZIE ANTES DE LAS COMIDAS (DME) recliner See Rx Instructions .Route .MEDSUPPLY Qty: 1 0RF Rx Instructions: As directed (DME) FreeStyle Frank 2 Ethel Misc See Rx Instructions .Route Qty: 1 0RF Rx Instructions: As directed (DME) FreeStyle Frank 2 Sensor Kit See Rx Instructions .Route Qty: 2 8RF Rx Instructions: As directed change every 14 days aspirin 81 mg tablet,chewable 81 mg PO DAILY Qty: 90 1RF metoprolol succinate 50 mg tablet extended release 24 hr 50 mg PO DAILY Qty: 90 1RF famotidine 40 mg tablet 40 mg PO DAILY PRN (Reason: heartburn) melatonin 5 mg Tablet 5 mg PO BEDTIME PRN (Reason: Sleep) amiodarone 200 mg tablet 200 mg PO BID pantoprazole 40 mg tablet,delayed release (DR/EC) 40 mg PO DAILY@0630 lidocaine 5 % adhesive patch,medicated 1 patch topical DAILY PRN (Reason: moderate pain) insulin glargine [Lantus Solostar U-100 Insulin] 100 unit/mL (3 mL) insulin pen 34 unit subcut BEDTIME clopidogrel 75 mg tablet 75 mg PO DAILY dapagliflozin propanediol [Farxiga] 10 mg tablet 10 mg PO DAILY losartan 25 mg tablet 25 mg PO DAILY sertraline 50 mg tablet 75 mg PO BEDTIME spironolactone 25 mg tablet 25 mg PO DAILY gabapentin 600 mg tablet 600 mg PO TID Qty: 90 4RF (DME) blood-glucose meter [FreeStyle Lite Meter] Kit See Rx Instructions .Route Rx Instructions: As directed (DME) FreeStyle Lite Strips Strip See Rx Instructions .Route Rx Instructions: As directed atorvastatin 80 mg tablet 80 mg PO BEDTIME Discontinued oxycodone-acetaminophen [Percocet] 5-325 mg tablet 1 tab PO Q6H PRN (Reason: pain) Qty: 20 0RF Rx Instructions: Partial Fill upon patient request. tramadol 50 mg tablet 50 mg PO Q6H PRN (Reason: pain) No Action (DME) recliner See Rx Instructions .Route .MEDSUPPLY Qty: 1 0RF Rx Instructions: As directed (DME) Hospital bed See Rx Instructions .Route .MEDSUPPLY Qty: 1 0RF Rx Instructions: As directed (DME) Wheelchair with cushion See Rx Instructions .Route .MEDSUPPLY Qty: 1 0RF Rx Instructions: As directed (DME) Toilet rails See Rx Instructions .Route .MEDSUPPLY Qty: 1 0RF Rx Instructions: As directed Discharge Orders: Discharge Order (Routine); Ordered 12/21/23 Ordered By: Steve Toribio Diet: Diabetic diet Activity on Discharge: As tolerated Stand Alone Forms: Patient Portal Discharge page Print Language: Citizen Of [place] Activity Restrictions/Additional Instructions: Wound care upon discharge to amputation site: xeroform, 4x4 and Kerlix wrap to be changed daily. Please call Dr. Sheppard at [phone] for 2 week follow up for suture and staple removal Care Plan Goals: Continue physical therapy and occupational therapy for left BKA Take Dilaudid 1 mg by mouth q.3 hours as needed for pain Continue stool softeners avoid constipation Health Concerns: Diabetes mellitus Lantus and pre meal insulin 10 units, follow diabetic diet and monitor blood sugars poc q.i.d.achs, good blood sugar control Continue all home medications as prescribed Plan of Treatment: Outpatient follow-up with primary care physician call for appointment Outpatient follow-up with Dr. Sheppard in 2 weeks for follow-up of sutures and staple removal Assessment: As above
[2023-12-22 16:50] LABS: Glucose, Whole Blood 190 mg/dL (60-115)
== END 2023-12-22 19:47 | DRG 476 ==
LOC: HO.SSSA 11:49 → HO.S3 11:58
PROVIDERS: Hospitalist; Student in an Organized Health Care Education/Training Program; Admitting Provider Surgery Vascular Surgery; PCP Internal Medicine; Visit Provider Surgery Vascular Surgery
PROC: 047S3Z1 Dilation of Left Posterior Tibial Artery using Drug-Coated Balloon, Percutaneous Approach (ICD-10-PCS; principal; 2023-12-13 09:30)
PROC: 0Y6J0Z2 Detachment at Left Lower Leg, Mid, Open Approach (ICD-10-PCS; CPT 27880; principal; 2023-12-18 11:50)
DX: T87.81 Dehiscence of amputation stump (principal); E11.51 Type 2 diabetes mellitus with diabetic peripheral angiopathy without gangrene; I10 Essential (primary) hypertension; D64.89 Other specified anemias; F39 Unspecified mood [affective] disorder; I25.10 Atherosclerotic heart disease of native coronary artery without angina pectoris; I48.0 Paroxysmal atrial fibrillation; I70.202 Unspecified atherosclerosis of native arteries of extremities, left leg; Z89.511 Acquired absence of right leg below knee; Z87.891 Personal history of nicotine dependence; Z79.4 Long term (current) use of insulin; Z79.02 Long term (current) use of antithrombotics/antiplatelets; Z79.82 Long term (current) use of aspirin; Z79.899 Other long term (current) drug therapy
CPT/HCPCS: 36415; 37228; 37232; 76937; 80048; 80202; 82565; 82947; 84520; 85025; 85027; 86850; 86900; 86901; 86923; 88307; 88311; 97110; 97162; 97166; 97530; 97535; 99152; 99153; 99212; 99283; 99284; A4364; C1725; C1760; C1769; C1887; C1894; J0330; J1170; J1644; J2250; J2270; J2310; J2371; J2405; J2543; J2704; J2765; J2795; J3010; J3370; J3371; J7120; P9016; Q9967

== ENCOUNTER → 2023-12-13 11:45 | Outpatient (BNV) | payer MEDICARE, SELFPAY | PROVIDERS: Admitting Provider Surgery Vascular Surgery; PCP Internal Medicine; Visit Provider Hospitalist | DX: I10 Essential (primary) hypertension (principal); I48.91 Unspecified atrial fibrillation; I73.9 Peripheral vascular disease, unspecified; S88.112A Complete traumatic amputation at level between knee and ankle, left lower leg, initial encounter | CPT/HCPCS: 99223; 99233; 99239; 99499 ==

== ENCOUNTER 2024-01-11 11:18 | Outpatient (AMB) | payer MEDICARE, SELFPAY ==
[2024-01-11 12:03] VITALS: BP 108/68; PULSE 79; O2SAT 98
--- NOTE | 2024-01-11 12:03 | A.OFFPC_ITS ---
Vital Signs 01/11/24 12:03 BMI Reason not done Patient refused/unable BP 108/68 Blood Pressure Location Lt brachial Position Sitting Pulse 79 Pulse Source Pulse Oximeter Pulse Oximetry (%) 98 Oxygen Delivery Method Room Air Intake Visit Reasons: HDF/Left BKA 4 Intake Note: Pt is here today for his HDF Lt BKA 4 Allergies No Known Allergies Allergy (Verified 01/11/24 12:20) Medication List - Last Reconciled 01/11/24 by Shanta Haney MD acetaminophen 650 mg (2 x 325 mg) PO TID amiodarone 200 mg PO BID aspirin 81 mg PO DAILY atorvastatin 80 mg PO BEDTIME [Bedside commode As directed] blood sugar diagnostic (FreeStyle Lite Strips) As directed blood-glucose meter (FreeStyle Lite Meter kit) As directed clopidogrel 75 mg PO DAILY dapagliflozin propanediol (Farxiga) 10 mg PO DAILY docusate sodium 100 mg PO BID PRN famotidine 40 mg PO DAILY PRN flash glucose scanning reader (ClassDojoStyle Frank 2 Camak) As directed flash glucose sensor (FreeStyle Frank 2 Sensor kit) As directed change every 14 days gabapentin 600 mg PO TID [Hospital bed As directed] insulin glargine (Lantus Solostar U-100 Insulin) 34 units subcut BEDTIME losartan 25 mg PO DAILY melatonin 5 mg PO BEDTIME PRN melatonin 6 mg (2 x 3 mg) PO BEDTIME PRN metoprolol succinate ER 50 mg PO DAILY pantoprazole 40 mg PO DAILY@0630 pen needle, diabetic (BD Ultra-Fine Short Pen Needle) USE MARÍA LO INDICADO BENNETT VECES AL LIZZIE ANTES DE LAS COMIDAS polyethylene glycol 3350 17 grams PO DAILY [recliner As directed] sertraline 75 mg PO BEDTIME spironolactone 25 mg PO DAILY [Toilet rails As directed] [walker with wheels As directed] [Wheelchair with cushion As directed] Tobacco use date assessed: 01/11/24 Dental Screening Dental Screen Date: 01/11/24 Did you have a dental visit in the last 12 months?: No Was dental information given to patient?: Patient declined HPI HDF/Left BKA 4 HPI Details 58-year-old man here today for follow u p after hospital discharge . He has history of diabetes mellitus with retinopathy and long-term current use of insulin with BKA in 2021, has peripheral arterial disease, s/p left BKA on 12/18/23. After surgery, he has acute on chronic anemia likely multifactorial due to surgery and dilutional,t was symptomatic with lightheadedness and dizziness, received 1 unit of packed RBC . During admission he went given IV Dilaudid and oxycodone for pain control, received 7 days of IV Zosyn and vancomycin, . He was evaluated by Physical therapy and Occupational therapy and discharged to acute rehab for management of bilateral BKA. He has an appointment for follow-up already scheduled with Dr. Sheppard next week , and has a follow-up with Dr. Sanchez for his diabetes mellitus next month already scheduled. He was advised to take Tylenol scheduled 3 times a day for pain control. Blood pressure was stable and controlled on losartan, metoprolol and Aldactone. Continued on aspirin and Plavix as well as atorvastatin 80 mg daily. He had history of atrial fibrillation (paroxysmal) now in normal sinus rhythm, continued on amiodarone. He was continued on Jardiance, Lantus and insulin sliding scale for his diabetes mellitus, has an appointment with Dr. Sanchez next month for follow-up. He was continued on sertraline 75 mg daily for depression. Patient however states that he has been having recurrent episodes of depression even on sertraline, would like to see if he can increase his dose. He is also requesting a prescription for hospital bed, hand rails for the bathroom, and wheelchair with cushion. [facility] Medical History (Updated 01/12/24 @ 03:54 by Shanta Haney MD) Hx of non-ST elevation myocardial infarction (NSTEMI) Major depression, recurrent Paroxysmal atrial fibrillation History of alcohol abuse Anemia Atrial fibrillation Essential hypertension PAD (peripheral artery disease) 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 Diabetes mellitus with retinopathy, with long-term current use of insulin Heartburn symptom Erectile dysfunction Dyslipidemia Amputation stump complication Hyperlipidemia Chronic pancreatitis Neuropathy Kidney calculus CAD (coronary artery disease) Arthritis Surgical History (Updated 12/30/23 @ 00:02 by Lavell Barnett) S/P angiogram of extremity (06/28/23) History of right below knee amputation Status post below-knee amputation S/P debridement Hx of lithotripsy Status post laparoscopic cholecystectomy Hx of heart artery stent Family History Mother [place] (myocardial infarction), Onset Age: 64 Diabetes mellitus HTN (hypertension) Maternal Grandmother Diabetes mellitus Social History Household Members: Spouse Household Members Other:: and daughter Housing: Apartment Do you presently have visiting nurse or other home services: Yes Alcohol intake: former Comment: Bilateral BKA's. Patient Tobacco Use Status: Former Tobacco user Quit Date: 2023 Tobacco use type: Cigarette Cigarette Packs Per Day: 0.01 Cigarettes Per Day: 3 Years Smoked: 30 e-Cigarette/Vaping Use: Never Used Second Hand Smoke Exposure: No Substance Use Type: Marijuana Advance Directives Date on File: 04/17/21 service: No Current occupational status: unemployed and disabled Cognitive needs: No Hearing needs: No Vision needs: Yes Questionnaire PHQ-9 Over the last 2 weeks, how often have you been bothered by any of the following problems? 1. Little interest or pleasure in doing things: nearly every day 2. Feeling down, depressed, or hopeless: several days 3. Trouble falling or staying asleep, or sleeping too much: more than half the days 4. Feeling tired or having little energy: more than half the days 5. Poor appetite or overeating: several days 6. Feeling bad about yourself - or that you are a failure or have let yourself or your family down: more than half the days 7. Trouble concentrating on things, such as reading the newspaper or watching television: more than half the days 8. Moving or speaking so slowly that other people could have noticed. Or the opposite - being so fidgety or restless that you have been moving around a lot more than usual: not at all 9. Thoughts that you would be better off or of hurting yourself in some way: not at all Total score: 13 Depression Screening Interpretation: Positive Depression Screening Follow-up: Existing condition, In treatment and Community Mental Health Worker F/U Depression Screening Done: Yes 78567 - PHQ-9 Billing: Yes Source: Developed by Drs. William Burton, Jayla Donnelly, Joesph Fay and colleagues, with an educational miriam from [employer]. Thrive Questionnaire Date Thrive assessed: 12/14/23 AUDIT C Alcohol Use Questionnaire (AUDIT-C) 1. How often do you have a drink containing alcohol?: Never Total Score: 0 Review of Systems Const Reports no additional complaints and Denies headache(s) Eyes Details: Goes to [facility] for his diabetes retinopathy screening, last seen 02/01/2023, due again next month for follow-up Reports no additional complaints ENT Reports Normal hearing present and Denies headache(s) Card Denies chest pain at rest, Denies chest pain with activity, Denies irregular heart rhythm and Denies dyspnea Resp Denies cough and Denies dyspnea GI Denies nausea and Denies vomiting Denies dysuria and Reports urinary frequency Musc Reports numbness, Denies radiating pain into limb and Denies tingling Neuro Reports as per HPI, Reports Normal hearing present, Denies headache(s), Reports numbness, Denies convulsions, Denies tingling and Reports paresthesias Psych Reports as per HPI Endo Reports polydipsia and Reports polyuria Chester/Lymph Reports no additional complaints Aller/Immun Reports no additional complaints Physical exam (Primary Care) Vital Signs: Last Vital Signs Pulse 79 01/11/24 12:03 BP 108/68 01/11/24 12:03 Pulse Ox 98 01/11/24 12:03 Oxygen Delivery Method Room Air 01/11/24 12:03 Tobacco/Smoking Status: Tobacco use Status Tobacco use date assessed 01/11/24 01/11/24 12:04 Patient Tobacco Use Status Former Tobacco user 01/11/24 12:04 Tobacco use type Cigarette 01/11/24 12:04 e-Cigarette/Vaping Use Never Used 01/11/24 12:04 Depression Screening Interpretation: Positive Depression Screening Follow-up: Existing condition, In treatment and Community Mental Health Worker F/U Thrive Assessment: Date of Thrive Assessment Date Thrive assessed 12/14/23 01/11/24 12:04 Const Other: Straightening Press Operator Helper present, wheelchair-borne General: cooperative, comfortable and no acute distress Nutritional Appearance: obese Orientation/consciousness: patient oriented x3 Limitations: wheelchair HENMT General nose exam: Normal external nose present Face and sinus: Yes face symmetric Mouth: Normal oral and palatal mucosa present, tongue normal and moist mucous membranes Eyes General: appearance normal, both eyes and all related structures Neck Other: Supple, full range of motion, no lymphadenopathy, thyroid gland nonpalpable Resp Effort & Inspection: normal respiratory effort and able to speak in complete sentences Auscultation: clear to auscultation bilaterally Cardio Other: S1-S2 present regular rate and rhythm GI Other: Normal bowel sounds, soft, nontender, no mass palpated Neuro General: patient oriented x3 Cranial nerves: Yes Normal hearing present Cognition (Neuro): normal cognition Extrem Other: Bilateral BKA, dressing intact, clean and dry Psych Appearance: grossly normal and well kempt Mental Status: mental status grossly normal Speech and movement: Normal speech and movement present Affect: normal affect Attitude: cooperative Thought process: Normal thought process present Thought content: Normal thought content present Results Reviewed Results Reviewed: Name: Pierre Escalona Age/Sex: 58/M : 1965 Unit#: [id number] Attend Dr: Berto Sheppard MD Re12/13/23 Status: DIS IN Location: [address] Disch: 12/22/23 SPEC : [id number] SHASHI: 12/21/23 STATUS: COMP REQ : [id number] RECD: 12/21/[address]: Steve Toribio MD COMP: 12/21/23 ENTERED: 12/21/[address]: Shanta Haney MD, Sandip T MD ORDERED: CBC No Diff Test Result Flag Reference WBC 15.0 H 4.8-10.8 X10*3/uL RBC 3.72 L 4.60-5.80 X10*6/uL HGB 8.9 L 14.0-18.0 g/dl HCT 29.2 L 42.0-52.0 % MCV 78.5 L 80.0-98.0 fL MCH 23.9 L 27.0-33.0 pg MCHC 30.5 L 31.0-36.0 g/dl RDW 17.9 H 11.0-16.0 % PLT 389 160-400 X10*3/uL MPV 9.8 9.4-12.4 fL NRBC Pct Auto 0.2 0.0-0.2 /100WBC NRBC Abs Auto 0.030 H 0.0-0.012 X10*3/uL Assessment and Plan Assessment & Plan (1) Anemia: Code(s): D64.9 - Anemia, unspecified Qualifiers: Anemia type: iron deficiency Iron deficiency anemia type: chronic blood loss Qualified Code(s): D50.0 - Iron deficiency anemia secondary to blood loss (chronic) Plan: Advised to start taking ferrous sulfate 325 mg per tablet taken once a day, best should be taken with either vitamin-C or orange juice for better absorption. May cause constipation advised to start taking docusate sodium 100 mg per capsule 1-2 capsules daily and prescription also give written for polyethylene glycol, to take as needed for his episodes of constipation (2) PAD (peripheral artery disease): Comment: 04/14/2021 - atherectomy and plasty of left SFA and popliteal artery, angioplasty of left anterior tibial posterior tibial and peroneal arteries 08/31/2021 - right BKA 11/29/2021 - revision right BKA 06/28/2023 - left anterior tibial plasty and perennial plasty and popliteal plasty 10/24/2023 - left great and 5th toe amputation 11/27/2023 - left transmetatarsal amputation Code(s): I73.9 - Peripheral vascular disease, unspecified Plan: Currently on clopidogrel, Has an appointment next week with Dr. Sheppard, for follow-up follow-up and for removal of blanca. (3) Status post amputation of left foot through metatarsal bone: Code(s): Z89.432 - Acquired absence of left foot Plan: Followed by vascular surgeon prescription printed and given to patient for hospital bed, toilet rales, and wheelchair with cushion (4) 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: Code(s): E11.42 - Type 2 diabetes mellitus with diabetic polyneuropathy; E11.65 - Type 2 diabetes mellitus with hyperglycemia Plan: Currently on gabapentin, Lantus, insulin by sliding scale and Farxiga, has appointment with physician compensation analyst, Dr. Sanchez for follow-up next month (5) Essential hypertension: Code(s): I10 - Essential (primary) hypertension Plan: Blood pressure at goal of less than 130/80. Continue with current medication. Reinforced importance of following a low sodium diet, getting regular exercise, and lowering stress levels. (6) Below-knee amputation of left lower extremity: Code(s): S88.112A - Complete traumatic amputation at level between knee and ankle, left lower leg, initial encounter Plan: Followed by vascular surgery, gets wound care (7) Difficulty sleeping: Code(s): G47.9 - Sleep disorder, unspecified Plan: Prescription sent for melatonin 3 mg per tablet to take 2 tablets at bedtime as needed for insomnia (8) Paroxysmal atrial fibrillation: Code(s): I48.0 - Paroxysmal atrial fibrillation Plan: Continued on amiodarone, aspirin 81 mg daily currently followed by [facility] cardiology (9) Major depression, recurrent: Code(s): F33.9 - Major depressive disorder, recurrent, unspecified Qualifiers: Active/Remission status: currently active Major depression episode severity: moderate Qualified Code(s): F33.1 - Major depressive disorder, recurrent, moderate Plan: Increased sertraline dose to 100 mg per tablet taken once a day, referred to [facility] for referral for counseling and eventually to see Psychiatry. (10) Hx of non-ST elevation myocardial infarction (NSTEMI): Code(s): I25.2 - Old myocardial infarction Plan: Continue aspirin 81 mg daily and atorvastatin 80 mg daily, was being followed at [facility] cardiology and status post cardiac rehab and (11) Heartburn symptom: Code(s): R12 - Heartburn Plan: Continue with famotidine and pantoprazole Orders: Orders Complete Blood Count Auto Diff 04/28/24 D64.9 - Anemia, unspecified Lipid Panel 04/28/24 D64.9 - Anemia, unspecified Medications: New ferrous sulfate 325 mg PO DAILY 90 tabs 2RF Changed From sertraline 75 mg PO BEDTIME To sertraline 100 mg PO BEDTIME 90 tabs 0RF Refilled [Toilet rails] As directed 1 ea 0RF I73.9 - Peripheral vascular disease, unspecified, S88.112A - Complete traumatic amputation at level between knee and ankle, left lower leg, initial encounter, Z89.432 - Acquired absence of left foot [Toilet rails] As directed 1 ea 0RF I73.9 - Peripheral vascular disease, unspecified, S88.112A - Complete traumatic amputation at level between knee and ankle, left lower leg, initial encounter, Z89.432 - Acquired absence of left foot metoprolol succinate ER 50 mg PO DAILY 90 tabs 1RF polyethylene glycol 3350 17 grams PO DAILY 30 ea 0RF docusate sodium 100 mg PO BID PRN 60 caps 5RF constipation [Hospital bed] As directed 1 ea 0RF I73.9 - Peripheral vascular disease, unspecified, S88.112A - Complete traumatic amputation at level between knee and ankle, left lower leg, initial encounter, Z89.432 - Acquired absence of left foot [Wheelchair with cushion] As directed 1 ea 0RF I73.9 - Peripheral vascular disease, unspecified, S88.112A - Complete traumatic amputation at level between knee and ankle, left lower leg, initial encounter, Z89.432 - Acquired absence of left foot [Wheelchair with cushion] As directed 1 ea 0RF I73.9 - Peripheral vascular disease, unspecified, S88.112A - Complete traumatic amputation at level between knee and ankle, left lower leg, initial encounter, Z89.432 - Acquired absence of left foot [Hospital bed] As directed 1 ea 0RF I73.9 - Peripheral vascular disease, unspecified, S88.112A - Complete traumatic amputation at level between knee and ankle, left lower leg, initial encounter, Z89.432 - Acquired absence of left foot gabapentin 600 mg PO TID 90 tabs 4RF melatonin 6 mg (2 x 3 mg) PO BEDTIME PRN 30 tabs 0RF Insomnia Coding Level of Care Code Est Pt Level 5 (41223) Diagnoses Iron deficiency anemia due to chronic blood loss D50.0 Anemia type: iron deficiency Iron deficiency anemia type: chronic blood loss PAD (peripheral artery disease) I73.9 Status post amputation of left foot through metatarsal bone Z89.432 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 E11.42; E11.65 Essential hypertension I10 Below-knee amputation of left lower extremity S88.112A Difficulty sleeping G47.9 Paroxysmal atrial fibrillation I48.0 Moderate episode of recurrent major depressive disorder F33.1 Active/Remission status: currently active Major depression episode severity: moderate Hx of non-ST elevation myocardial infarction (NSTEMI) I25.2 Heartburn symptom R12
== END 2024-01-11 12:53 | disposition home or self-care (01) ==
PROVIDERS: PCP Internal Medicine; Visit Provider Internal Medicine
DX: S88.112A Complete traumatic amputation at level between knee and ankle, left lower leg, initial encounter (principal); I73.9 Peripheral vascular disease, unspecified; Z89.432 Acquired absence of left foot; E11.42 Type 2 diabetes mellitus with diabetic polyneuropathy; E11.65 Type 2 diabetes mellitus with hyperglycemia; I48.0 Paroxysmal atrial fibrillation; F33.1 Major depressive disorder, recurrent, moderate; D50.0 Iron deficiency anemia secondary to blood loss (chronic); I10 Essential (primary) hypertension; G47.9 Sleep disorder, unspecified; I25.2 Old myocardial infarction; R12 Heartburn
CPT/HCPCS: 99215

== ENCOUNTER 2024-01-16 10:16 | Outpatient (AMB) | payer MEDICARE, SELFPAY ==
--- NOTE | 2024-01-16 10:18 | A.OFFVIS_ITS ---
Intake Visit Reasons: Follow BKA Intake Note: Patient presents for follow up BKA. Patient says the surgery went well. He is glad he has no more pain. Accompanied by: Son Allergies No Known Allergies Allergy (Verified 01/16/24 10:21) HPI HPI Follow BKA: Details: Very pleasant 58-year-old gentleman status post left BKA. He reports he is doing fairly well. No postoperative issues. He is much happier now that the pain is better controlled. He now presents for routine follow-up. [facility] Medical History Hx of non-ST elevation myocardial infarction (NSTEMI) Major depression, recurrent Paroxysmal atrial fibrillation History of alcohol abuse Anemia Atrial fibrillation Essential hypertension PAD (peripheral artery disease) 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 Diabetes mellitus with retinopathy, with long-term current use of insulin Heartburn symptom Erectile dysfunction Dyslipidemia Amputation stump complication Hyperlipidemia Chronic pancreatitis Neuropathy Kidney calculus CAD (coronary artery disease) Arthritis Surgical History S/P angiogram of extremity (06/28/23) History of right below knee amputation Status post below-knee amputation S/P debridement Hx of lithotripsy Status post laparoscopic cholecystectomy Hx of heart artery stent Family History Mother [place] (myocardial infarction), Onset Age: 64 Diabetes mellitus HTN (hypertension) Maternal Grandmother Diabetes mellitus Social History Household Members: Spouse Household Members Other:: and daughter Housing: Apartment Do you presently have visiting nurse or other home services: Yes Alcohol intake: former Comment: Bilateral BKA's. Patient Tobacco Use Status: Former Tobacco user Quit Date: 2023 Tobacco use type: Cigarette Cigarette Packs Per Day: 0.01 Cigarettes Per Day: 3 Years Smoked: 30 e-Cigarette/Vaping Use: Never Used Second Hand Smoke Exposure: No Substance Use Type: Marijuana Advance Directives Date on File: 04/17/21 service: No Current occupational status: unemployed and disabled Cognitive needs: No Hearing needs: No Vision needs: Yes Review of Systems Const All systems reviewed & are unremarkable except as noted in HPI and below Reports no additional complaints ENT Reports Normal hearing present Card Denies chest pain, Denies chest pain at rest, Denies chest pain with activity and Denies pedal edema Resp Denies cough GI Denies abdominal pain Musc Denies abnormal gait, Denies muscle cramps and Denies radiating pain into limb Skin/Breast Denies skin ulcer and Denies wounds Neuro Reports Normal hearing present and Denies abnormal gait Psych Reports no additional complaints Physical Exam Const General: cooperative, healthy appearing and comfortable Orientation/consciousness: oriented to person, oriented to place and oriented to time HEENT Head: Yes normal to inspection Neck Neck: Yes normal visual inspection Carotids: no bruits Chest Chest palpation & inspection: normal inspection of the chest Resp Effort & Inspection: normal respiratory effort and able to speak in complete sentences Auscultation: clear to auscultation bilaterally, no crackles, no rales, no rhonchi and no wheezes Cardio Rate: regular rate Rhythm: regular rhythm Heart sounds: S1 normal heart sound present and S2 normal heart sound present Bruits: no carotid bruits Peripheral pulses: Peripheral pulses 2+ throughout GI Inspection: Yes normal to inspection Skin Other: Left BKA well-healed - sutures and blanca removed. Wounds: amputation site Hair: normal Neuro General: oriented to person, oriented to place and oriented to time Cranial nerves: Yes CN's II-XII intact bilaterally and Yes Normal hearing present Cognition (Neuro): normal cognition Motor exam (neuro): 5/5 motor strength present throughout Extrem Other: venous exam: No significant superficial varicosities or spider telangiectasias, minimal edema General: No clubbing, No cyanosis and No edema Psych Appearance: grossly normal Mental Status: mental status grossly normal Speech and movement: Normal speech and movement present Assessment & Plan Assessment & Plan (1) PAD (peripheral artery disease): Comment: 04/14/2021 - atherectomy and plasty of left SFA and popliteal artery, angioplasty of left anterior tibial posterior tibial and peroneal arteries 08/31/2021 - right BKA 11/29/2021 - revision right BKA 06/28/2023 - left anterior tibial plasty and perennial plasty and popliteal plasty 10/24/2023 - left great and 5th toe amputation 11/27/2023 - left transmetatarsal amputation 12/18/2023 - left BKA Code(s): I73.9 - Peripheral vascular disease, unspecified Category: Medical Plan: In short patient has done well status post left BKA. He has now a bilateral amputee. We did discuss risk factor modification. He has a right leg prost hetic and we will refer him for a left leg prosthetic. Will follow up with us on an as-needed basis. Thank you for allowing us to assist in his care. If there are any questions or concerns please do not hesitate to contact us. Coding Level of Care Code Est Pt Level 4 (11562) Diagnoses PAD (peripheral artery disease) I73.9
== END 2024-01-16 12:38 | disposition home or self-care (01) ==
PROVIDERS: PCP Internal Medicine; Visit Provider Surgery Vascular Surgery
DX: I73.9 Peripheral vascular disease, unspecified (principal)
CPT/HCPCS: 99024

== ENCOUNTER → 2024-01-16 10:16 | Outpatient (BNVA) | payer MEDICARE, SELFPAY | PROVIDERS: PCP Internal Medicine; Visit Provider Surgery Vascular Surgery | DX: I73.9 Peripheral vascular disease, unspecified (principal) | CPT/HCPCS: 99212 ==

== ENCOUNTER 2024-01-30 10:17 | Outpatient (REF) | payer MEDICARE, SELFPAY ==
[2024-01-30 14:03] LABS: Cholesterol 110 mg/dL (<200); HDL Cholesterol 36 mg/dL (>40); LDL Cholesterol Calculated 60 mg/dL (<100); Triglycerides 74 mg/dL (<150)
[2024-01-30 14:09] LABS: Creatinine Urine 93.31 mg/dL; Microalbum/Creatinine Ratio Ur 18.2 ug/mg cr (<30)
== END 2024-01-30 10:18 | disposition home or self-care (01) ==
LOC: HO.HMGCLDS 10:17
PROVIDERS: PCP Internal Medicine; Visit Provider Internal Medicine Endocrinology, Diabetes & Metabolism
DX: E11.65 Type 2 diabetes mellitus with hyperglycemia (principal); E11.42 Type 2 diabetes mellitus with diabetic polyneuropathy; D64.9 Anemia, unspecified
CPT/HCPCS: 36415; 80061; 82043; 82570

== ENCOUNTER 2024-01-31 07:49 | Outpatient (AMB) | payer MEDICARE, SELFPAY ==
[2024-01-31 07:52] VITALS: BP 117/70; PULSE 76
--- NOTE | 2024-01-31 07:52 | A.OFFVIS_ITS ---
Vital Signs 01/31/24 07:52 Height 5 ft 9 in BP 117/70 Blood Pressure Location Rt brachial Position Sitting Pulse 76 Pulse Source Pulse Oximeter Intake Visit Reasons: f/u Type 2 DM-confirmed Intake Note: Patient presents today to follow up on D2MT. Last Diabetic Eye exam: 2022 Last Podiatry Visit: Doesn't have one Random Glucose: 241 mg/dl HgA1c: 6.8% Liquid Flavor Compounder Required: No Accompanied by: Son Allergies No Known Allergies Allergy (Verified 01/31/24 07:59) Medication List - Last Reconciled 01/31/24 by William Sanchez MD acetaminophen 650 mg (2 x 325 mg) PO TID amiodarone 200 mg PO BID aspirin 81 mg PO DAILY atorvastatin 80 mg PO BEDTIME [Bedside commode As directed] blood sugar diagnostic (FreeStyle Lite Strips) As directed blood-glucose meter (FreeStyle Lite Meter kit) As directed clopidogrel 75 mg PO DAILY dapagliflozin propanediol (Farxiga) 10 mg PO DAILY docusate sodium 100 mg PO BID PRN famotidine 40 mg PO DAILY PRN ferrous sulfate 325 mg PO DAILY flash glucose scanning reader (Thinkglue Frank 2 [place]) As directed flash glucose sensor (NexImmuneStyle Frank 2 Sensor kit) As directed change every 14 days gabapentin 600 mg PO TID [Hospital bed As directed] insulin glargine (Lantus Solostar U-100 Insulin) 34 units subcut BEDTIME [liners for incontinence Use As directed] losartan 25 mg PO DAILY melatonin 6 mg (2 x 3 mg) PO BEDTIME PRN metoprolol succinate ER 50 mg PO DAILY pantoprazole 40 mg PO DAILY@0630 pen needle, diabetic (BD Ultra-Fine Short Pen Needle) USE MARÍA LO INDICADO BENNETT VECES AL LIZZIE ANTES DE LAS COMIDAS polyethylene glycol 3350 17 grams PO DAILY [recliner As directed] sertraline 100 mg PO BEDTIME spironolactone 25 mg PO DAILY [Toilet rails As directed] [walker with wheels As directed] [Wheelchair with cushion As directed] HPI Comments Details: Patient is a 58 year old male with DM type 2 diagnosed 30 years ago , referred by Dr. Haney who presents for management of diabetes. Patient last saw Sapphire Ramsey NP on 01/07/2021 Past medical history: Diabetes type 2, hypertension, hyperlipidemia, coronary artery disease, chronic pancreatitis. . Micro and macrovascular complications: +nephropathy, +neuropathy, +CAD, Diabetes medications: Lantus 34 units daily, Humalog 2-4 units 3 times a day, metformin 1000 mg twice a day not taking because was the discontinued during episode of pancreatitis? Farxiga 10 mg QD Frank download shows he has using the sensor 76% of the time. Average glucose is 191 with G mi of 7.9% and variability 28.6%. 46% range with 54% hyperglycemia no hypoglycemia. Pen shows elevations in the registered medical assistant hours as well as post noon Symptoms reported: + numbness, tingling, cramping in lower extremities Hypoglycemia: denies Hyperglycemia: denies urinary frequency, nocturia, polydypsia Blood glucose monitoring: No meter today as has not been working well. Has been using daughter's meter. 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 Last dental exam: Has implants Last ophthalmology evaluation: has appt next mo Laboratory Tests 01/04/21 01/04/21 01/04/21 10:26 11:11 11:14 Creatinine 0.89 Estimated GFR > 60 Hgb A1c (Clinic) 8.6 H Triglycerides 140 Cholesterol 207 LDL Cholesterol, Calc 137 HDL Cholesterol 42 Microalb/Creat Ratio 33.1 PFSH Medical History (Updated 01/16/24 @ 10:57 by Berto Sheppard MD) Hx of non-ST elevation myocardial infarction (NSTEMI) Major depression, recurrent Paroxysmal atrial fibrillation History of alcohol abuse Anemia Atrial fibrillation Essential hypertension PAD (peripheral artery disease) 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 Diabetes mellitus with retinopathy, with long-term current use of insulin Heartburn symptom Erectile dysfunction Dyslipidemia Amputation stump complication Hyperlipidemia Chronic pancreatitis Neuropathy Kidney calculus CAD (coronary artery disease) Arthritis Surgical History (Updated 01/31/24 @ 08:01 by RASHIDA Zheng) History of open heart surgery S/P angiogram of extremity (06/28/23) History of right below knee amputation Status post below-knee amputation S/P debridement Hx of lithotripsy Status post laparoscopic cholecystectomy Hx of heart artery stent Family History Mother [place] (myocardial infarction), Onset Age: 64 Diabetes mellitus HTN (hypertension) Maternal Grandmother Diabetes mellitus Social History Household Members: Spouse Household Members Other:: and daughter Housing: Apartment Do you presently have visiting nurse or other home services: Yes Alcohol intake: former Comment: Bilateral BKA's. Patient Tobacco Use Status: Former Tobacco user Tobacco use type: Cigarette Cigarette Packs Per Day: 0.01 Cigarettes Per Day: 3 Years Smoked: 30 e-Cigarette/Vaping Use: Never Used Second Hand Smoke Exposure: No Substance Use Type: Marijuana Advance Directives Date on File: 04/17/21 service: No Current occupational status: unemployed and disabled Cognitive needs: No Hearing needs: No Vision needs: Yes Physical Exam Vital Signs: Last Vital Signs Pulse 76 01/31/24 07:52 BP 117/70 01/31/24 07:52 Absence of Cushingoid features. Absence of acromegalic features. Neck exam reveals nl size thyroid about 15 gms. No thyroid nodules palpable. No carotid bruits present. Lungs CTA. Heart S1 S2, Reg R/R. No M/R/ G. Skin exam reveals absence of vitiligo or acanthosis nigricans. Abdominal exam reveals Soft NT/ND with NA BS. No organomegaly present. Neck Other: . Extrem Other: Visual exam of foot performed. R AKA L AKA Results AMB Hemoglobin A1c AMB Hemoglobin A1c 6.8 % Last Edit by RASHIDA Zheng on 01/31/24 08:26 Results Reviewed Results Reviewed: Laboratory Last Values Glucose (Clinic) 241 mg/dL (60-115) H 01/31/24 08:03 Hgb A1c (Clinic) 6.8 % (4.0-6.0) H 01/31/24 08:09 Assessment & Plan Assessment & Plan (1) Diabetes mellitus, with long-term current use of insulin: Code(s): E11.9 - Type 2 diabetes mellitus without complications; Z79.4 - MCFP (current) use of insulin Category: Medical Qualifiers: Diabetes mellitus type: type 2 Plan: This is a 57-year-old male with history of type 2 diabetes in the background of chronic pancreatitis currently being treated with Farxiga and basal-bolus insulin with excellent improved glycemic control and known microvascular and macrovascular complication namely nephropathy, neuropathy S/P R AKA and CAD The plan is increase the Humalog by 2-3 units for a midnight snack and prior to noon meal. t. A G LP 1 is contraindicated with a history of pancreatitis. He should follow up with the coding compliance manager. Will discuss with patient the use of an insulin pump as patient is committed to insulin long-term and he could discuss potential use of iLet pump with the educator since he is committed to lo ng-term insulin use Orders: Orders AMB Hemoglobin A1c Today E11.42 - Type 2 diabetes mellitus with diabetic polyneuropathy, E11.65 - Type 2 diabetes mellitus with hyperglycemia, Z13.9 - Encounter for screening, unspecified Referrals Diabetes Education Referral E11.42 - Type 2 diabetes mellitus with diabetic polyneuropathy, E11.65 - Type 2 diabetes mellitus with hyperglycemia Coding Level of Care Code Est Pt Level 4 (78790) Diagnoses Diabetes mellitus, with long-term current use of insulin E11.9; Z79.4 Diabetes mellitus type: type 2
[2024-01-31 08:08] LABS: Glucose, Whole Blood 241 mg/dL (60-115)
== END 2024-01-31 08:25 | disposition home or self-care (01) ==
PROVIDERS: PCP Internal Medicine; Visit Provider Internal Medicine Endocrinology, Diabetes & Metabolism
DX: E11.42 Type 2 diabetes mellitus with diabetic polyneuropathy (principal); E11.65 Type 2 diabetes mellitus with hyperglycemia; Z79.4 Long term (current) use of insulin
CPT/HCPCS: 99214

== ENCOUNTER → 2024-01-31 07:49 | Outpatient (BNVA) | payer MEDICARE, SELFPAY | PROVIDERS: PCP Internal Medicine; Visit Provider Internal Medicine Endocrinology, Diabetes & Metabolism | DX: E11.9 Type 2 diabetes mellitus without complications (principal); Z79.4 Long term (current) use of insulin | CPT/HCPCS: 82947; 83036; 99212 ==

== ENCOUNTER 2024-05-31 08:03 | Outpatient (AMB) | payer MEDICARE, SELFPAY ==
[2024-05-31 08:07] VITALS: BP 110/70; PULSE 76
--- NOTE | 2024-05-31 08:07 | MHC.OFFVIS ---
Vital Signs 05/31/24 08:07 Height 5 ft 9 in BP 110/70 Blood Pressure Location Rt brachial Position Sitting Pulse 76 Pulse Source Pulse Oximeter Intake Visit Reasons: T2DM Intake Note: New patient presents today for D2MT office visit. Last Diabetic Eye exam: 05/2024 Last Podiatry Visit: Doesn't have one Random Glucose: 163 mg/dl HgA1c: 9.2% Medical Office Technician Required: Yes Medical Office Technician Language: Clinical Social Work Aide Services: Medical Office Technician Present Medical Office Technician Name: idalia [id number] Information Interpreted: non-clinical & clinical Accompanied by: Spouse Allergies No Known Allergies Allergy (Verified 05/31/24 08:14) Medication List - Last Reconciled 05/31/24 by Olya Sorto PA-C acetaminophen 650 mg (2 x 325 mg) PO TID amiodarone 200 mg PO BID aspirin 81 mg PO DAILY atorvastatin 80 mg PO BEDTIME [Bedside commode As directed] blood sugar diagnostic (FreeStyle Lite Strips) As directed blood-glucose meter (FreeStyle Lite Meter kit) As directed clopidogrel 75 mg PO DAILY dapagliflozin propanediol (Farxiga) 10 mg PO DAILY docusate sodium 100 mg PO BID PRN famotidine 40 mg PO DAILY PRN ferrous sulfate 325 mg PO DAILY flash glucose scanning reader (WorkubeStyle Frank 2 [place]) As directed flash glucose sensor (FreeStyle Frank 2 Sensor kit) DIRECTED CHANGE EVERY 14 DAYS gabapentin 600 mg PO TID [Hospital bed As directed] insulin glargine (Lantus Solostar U-100 Insulin) 34 units subcut BEDTIME insulin lispro (Humalog KwikPen (U-100) Insulin) 2-3 units of Humalog prior to breakfast, 4-6 units before lunch, 2-3 units prior to dinner and 2-3 units prior to bedtime snack. subcutaneously 4 times a day before meal/bed; [liners for incontinence Use As directed] losartan 25 mg PO DAILY melatonin 6 mg (2 x 3 mg) PO BEDTIME PRN metoprolol succinate ER 50 mg PO DAILY pantoprazole 40 mg PO DAILY@0630 pen needle, diabetic (BD Ultra-Fine Short Pen Needle) USE MARÍA LO INDICADO BENNETT VECES AL LIZZIE ANTES DE LAS COMIDAS polyethylene glycol 3350 17 grams PO DAILY [recliner As directed] sertraline 100 mg PO BEDTIME spironolactone 25 mg PO DAILY [Toilet rails As directed] [walker with wheels As directed] [Wheelchair with cushion As directed] HPI HPI T2DM: Details: Patient is a 58 year old male with DM type 2 diagnosed about 35 years ago, here today for a follow up and is accompanied by his . He has a significant past medical history of Diabetes type 2, hypertension, hyperlipidemia, coronary artery disease, chronic pancreatitis, peripheral vascular disease, s/p bilateral lower leg amputations , history of STEMI, AFib, and depression . He last saw Dr. Sanchez in January when his diabetes was well-controlled. Medical Office Technician today: Idalia [id number] Endo: Dm-A1c today is 9.2. Previously in January it was 6.8. He is currently on Lantus 24 units and Humalog sliding scale. In general for breakfast he takes about 8 units of Humalog, lunch is about 8 units in supper is about 6-8 units. He will also use a couple units with snacks. He is on Farxiga 10 mg daily. -he states at his last visit with Dr. Sanchez they reduce the Lantus to 24 units, previously was 34, and in the last month his blood sugars have been a lot higher. He states that they are around 300. He does not feel sick, he has not been in pain and states that his diet has relatively stayed the same so he does not know why this sudden increase. However, earlier this year he was admitted for his vascular disease and underwent an amputation and was hospitalized in in a rehab facility where there was some more control of the diet. -at his last visit with Dr. Sanchez they also discussed the eyelet pump and patient states that he is interested in this pump. Frank download shows he has using the sensor 81% of the time. Average glucose is 234 with G mi of 8.9% and variability 22.1%. 16% range with 84% hyperglycemia no hypoglycemia. -he has had diabetic Education. States that recently had diabetic Education last year. CV: Blood pressure today in the office is 110/70. He is on losartan 25 mg, amiodarone 200 mg twice a day, metoprolol 50 mg daily and spironolactone 25 mg. Cholesterol is managed with atorvastatin 80 mg. Last LDL was 60. He continues on aspirin and Plavix. Vasc: Had follow up with Dr. Sheppard in December following the amputation and is now only needed to follow up on an as-needed basis. The pain in his legs has significantly improved. He is doing well with his wheelchair and he does have a prosthesis of his right leg and is discussing the left. Psych: He is on sertraline 100 mg daily and states that the increased dosage has been helpful. REPLACED BY [facility] Medical History (Updated 05/31/24 @ 09:18 by Olya Sorto PA-C) Hx of non-ST elevation myocardial infarction (NSTEMI) Major depression, recurrent Paroxysmal atrial fibrillation History of alcohol abuse Anemia Atrial fibrillation Essential hypertension PAD (peripheral artery disease) 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 Diabetes mellitus with retinopathy, with long-term current use of insulin Heartburn symptom Erectile dysfunction Dyslipidemia Amputation stump complication Hyperlipidemia Chronic pancreatitis Neuropathy Kidney calculus CAD (coronary artery disease) Arthritis Surgical History History of open heart surgery S/P angiogram of extremity (06/28/23) History of right below knee amputation Status post below-knee amputation S/P debridement Hx of lithotripsy Status post laparoscopic cholecystectomy Hx of heart artery stent Family History Mother [place] (myocardial infarction), Onset Age: 64 Diabetes mellitus HTN (hypertension) Maternal Grandmother Diabetes mellitus Social History Household Members: Spouse Household Members Other:: and daughter Housing: Apartment Do you presently have visiting nurse or other home services: Yes Alcohol intake: former Comment: Bilateral BKA's. Patient Tobacco Use Status: Former Tobacco user Tobacco use type: Cigarette Cigarette Packs Per Day: 0.01 Cigarettes Per Day: 3 Years Smoked: 30 e-Cigarette/Vaping Use: Never Used Second Hand Smoke Exposure: No Substance Use Type: Marijuana Advance Directives Date on File: 04/17/21 service: No Current occupational status: unemployed and disabled Cognitive needs: No Hearing needs: No Vision needs: Yes Physical Exam Vital Signs: Last Vital Signs Pulse 76 05/31/24 08:07 BP 110/70 05/31/24 08:07 Const Orientation/consciousness: patient oriented x3 Neck Neck: Yes no lymphadenopathy Thyroid: Thyroid normal Carotids: no bruits Resp Auscultation: clear to auscultation bilaterally Cardio Rate: regular rate Rhythm: regular rhythm Heart sounds: S1 normal heart sound present and S2 normal heart sound present Neuro General: patient oriented x3, gait normal and no focal motor deficits Extrem General: Yes normal to inspection Results AMB Hemoglobin A1c AMB Hemoglobin A1c 9.2 % Last Edit by RASHIDA Zheng on 05/31/24 08:30 Results Reviewed Results Reviewed: Laboratory Last Values Glucose (Clinic) 163 mg/dL (60-115) H 05/31/24 08:19 Laboratory Tests 12/20/23 01/30/24 01/31/24 05:42 10:27 08:09 Creatinine 0.85 Estimated GFR > 60 Hgb A1c (Clinic) 6.8 H Triglycerides 74 Cholesterol 110 LDL Cholesterol, Calc 60 HDL Cholesterol 36 L Urine Creatinine 93.31 Urine Microalbumin 17.0 Microalb/Creat Ratio 18.2 Assessment & Plan Assessment & Plan (1) 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: Code(s): E11.42 - Type 2 diabetes mellitus with diabetic polyneuropathy; E11.65 - Type 2 diabetes mellitus with hyperglycemia Category: Medical Plan: We will increase Lantus to 34 units, increase Humalog with breakfast to 10-12 units, lunch 10-12 units, supper 8-10 units (he states that he feels comfortable with the sliding scale and we will monitor this.). Continue Farxiga. We discussed signs and symptoms of hyper and hypoglycemia that would require emergent medical treatment. Rule of 15 discussed. Glucose tabs order to use if needed. Short term follow up within a week. Sooner if anything changes. I have also encouraged patient and his to download the portal so they may also send messages if they have a difficult time getting through on the phone line.. (2) Essential hypertension: Code(s): I10 - Essential (primary) hypertension Category: Medical Plan: Well-controlled today. Continue current regimen. (3) PAD (peripheral artery disease): Comment: 04/14/2021 - atherectomy and plasty of left SFA and popliteal artery, angioplasty of left anterior tibial posterior tibial and peroneal arteries 08/31/2021 - right BKA 11/29/2021 - revision right BKA 06/28/2023 - left anterior tibial plasty and perennial plasty and popliteal plasty 10/24/2023 - left great and 5th toe amputation 11/27/2023 - left transmetatarsal amputation 12/18/2023 - left BKA Code(s): I73.9 - Peripheral vascular disease, unspecified Category: Medical Plan: Bilateral amputee. Doing well since his left BKA. (4) Hyperlipidemia: Code(s): E78.5 - Hyperlipidemia, unspecified Category: Medical Qualifiers: Hyperlipidemia type: pure hypercholesterolemia Qualified Code(s): E78.00 - Pure hypercholesterolemia, unspecified Plan: Controlled. Continue regimen Orders: Orders AMB Hemoglobin A1c Today E11.42 - Type 2 diabetes mellitus with diabetic polyneuropathy, E11.65 - Type 2 diabetes mellitus with hyperglycemia, Z13.9 - Encounter for screening, unspecified Medications: New insulin glargine (Lantus Solostar U-100 Insulin) 34 units (0.34 mL) subcut BEDTIME 15 mL 3RF glucose (Dex4 Glucose) until symptoms of low blood sugar are controlled 16 grams (4 x 4 gram) PO Q15M PRN 100 tabs 0RF hypoglycemia Changed From insulin lispro (Humalog KwikPen (U-100) Insulin) 2-3 units of Humalog prior to breakfast, 4-6 units before lunch, 2-3 units prior to dinner and 2-3 units prior to bedtime snack. subcutaneously 4 times a day before meal/bed; 15 mL 6RF To insulin lispro (Humalog KwikPen (U-100) Insulin) 10-12 units of Humalog prior to breakfast, 10-12 units before lunch, 8-10 units prior to dinner and 2-4 units prior to bedtime snack. subcutaneously 4 times a day before meal/bed; 15 mL 6RF Coding Level of Care Code Est Pt Level 4 (00495) Diagnoses 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 E11.42; E11.65 Essential hypertension I10 PAD (peripheral artery disease) I73.9 Pure hypercholesterolemia E78.00 Hyperlipidemia type: pure hypercholesterolemia
[2024-05-31 08:25] LABS: Glucose, Whole Blood 163 mg/dL (60-115)
== END 2024-05-31 08:46 | disposition home or self-care (01) ==
PROVIDERS: PCP Internal Medicine; Visit Provider Physician Assistant
DX: E11.42 Type 2 diabetes mellitus with diabetic polyneuropathy (principal); E11.65 Type 2 diabetes mellitus with hyperglycemia; I10 Essential (primary) hypertension; I73.9 Peripheral vascular disease, unspecified; E78.00 Pure hypercholesterolemia, unspecified; Z13.9 Encounter for screening, unspecified

== ENCOUNTER → 2024-05-31 08:03 | Outpatient (BNVA) | payer MEDICARE, SELFPAY | PROVIDERS: PCP Internal Medicine; Visit Provider Physician Assistant | DX: E11.42 Type 2 diabetes mellitus with diabetic polyneuropathy (principal); E11.65 Type 2 diabetes mellitus with hyperglycemia; I10 Essential (primary) hypertension; I73.9 Peripheral vascular disease, unspecified; E78.00 Pure hypercholesterolemia, unspecified; Z79.4 Long term (current) use of insulin; Z71.3 Dietary counseling and surveillance | CPT/HCPCS: 82947; 83036; 99212 ==

== ENCOUNTER 2024-06-19 12:17 | Outpatient (AMB) | payer MEDICARE, SELFPAY ==
--- NOTE | 2024-06-19 08:30 | A.OFFVIS_ITS ---
Intake Visit Reasons: DM/LVM Intake Note: Patient presents today for a follow-up on DMT2: Last Diabetic Eye exam: 05/2024 Last Podiatry Visit: Doesn't have one HgA1c: 9.2%, 05/31/2024 Random Glucose: 203 mg/dL, Today Shade Bander Required: Yes Shade Bander Services: Shade Bander Offered & Declined Accompanied by: Son Allergies No Known Allergies Allergy (Verified 06/19/24 13:03) HPI Comments Details: Patient is a 58 year old male with DM type 2 here for follow up. He is here today with his son who assists with interpreting as needed. He was last seen by Blanche Sorto 05/31/2024 at which time his insulin dosing was adjusted upward. He did have a prior history of lows. Hemoglobin A1c 9.2% 05/31/24 up from January 2024 6.8%. Had been on metformin which was stopped during episode of pancreatitis. Past medical history: Diabetes type 2, hypertension, hyperlipidemia, coronary artery disease status post NSTEMI, status post PCI, chronic pancreatitis, BKA x2 Diagnosed approx 1994 Micro and macrovascular complications: +retinopathy: Has upcoming appointment with retinal specialist in [place], , +neuropathy, +CAD, Diabetes medications: Lantus 34 units daily Humalog breakfast 10-12 units lunch 10-12 units supper 8-10 units 2-4 with snack Farxiga 10 mg Freestyle yaneth sensor 2 average glucose: 242 14 day glucose sensor report reviewed Glucose Management indicator 1 % Next 40 he 2 TIme in ranges: 40 % very high (above 250) Fifty-two % high (181-250) 8 % in range (70-180] 0 % low (69-55) 0 % very low (below 54) 20.6 Glucose variability (target <36%) Interpretation of CGMS glucose readings overall high Early Last eye exam: No nephropathy: On ARB 11/2023 eGFR>60 microalbumin 17.0 Has neuropathy Symptoms reported: + numbness, tingling no open areas to stumps Hypoglycemia: denies recent but has had in the past Hyperglycemia: denies urinary frequency, nocturia, polydypsia Diet; Ever[place] with cream cheese and coffee, boiled egg, occasional Monday Lunch/supper: Small amount of rice, beans Occasional sweets Training Program Developer - CDE education: 04/2023 [facility] Medical History (Updated 05/31/24 @ 09:18 by Olya Sorto PA-C) Hx of non-ST elevation myocardial infarction (NSTEMI) Major depression, recurrent Paroxysmal atrial fibrillation History of alcohol abuse Anemia Atrial fibrillation Essential hypertension PAD (peripheral artery disease) 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 Diabetes mellitus with retinopathy, with long-term current use of insulin Heartburn symptom Erectile dysfunction Dyslipidemia Amputation stump complication Hyperlipidemia Chronic pancreatitis Neuropathy Kidney calculus CAD (coronary artery disease) Arthritis Surgical History History of open heart surgery S/P angiogram of extremity (06/28/23) History of right below knee amputation Status post below-knee amputation S/P debridement Hx of lithotripsy Status post laparoscopic cholecystectomy Hx of heart artery stent Family History Mother [place] (myocardial infarction), Onset Age: 64 Diabetes mellitus HTN (hypertension) Maternal Grandmother Diabetes mellitus Social History Household Members: Spouse Household Members Other:: and daughter Housing: Apartment Do you presently have visiting nurse or other home services: Yes Alcohol intake: former Comment: Bilateral BKA's. Patient Tobacco Use Status: Former Tobacco user Tobacco use type: Cigarette Cigarette Packs Per Day: 0.01 Cigarettes Per Day: 3 Years Smoked: 30 e-Cigarette/Vaping Use: Never Used Second Hand Smoke Exposure: No Substance Use Type: Marijuana Advance Directives Date on File: 04/17/21 service: No Current occupational status: unemployed and disabled Cognitive needs: No Hearing needs: No Vision needs: Yes Physical Exam Const Other: Absence of Cushingoid features. Absence of acromegalic features. Neck exam reveals nl size thyroid about 15 gms. No thyroid nodules palpable. No carotid bruits present. Heart S1 S2, Reg R/R. No M/R G. Skin exam reveals absence of vitiligo or acanthosis nigricans on visualized surfaces. Bilateral amputation Assessment & Plan Assessment & Plan (1) Diabetes mellitus with retinopathy, with long-term current use of insulin: Code(s): E11.319 - Type 2 diabetes mellitus with unspecified diabetic retinopathy without macular edema; Z79.4 - retirement (current) use of insulin Category: Medical Plan: 59-year-old type 2 diabetic with multiple comorbidities with retinopathy, status post BKA x2, CAD and neuropathy presents with 2 week sensor average of 243. He has a prior history of lows on increased Lantus dose. We will prescribe Tresiba at 38 units and increase his Humalog dosing by 2 units with the meals. We briefly discussed an insulin pump but due to his low vision that would be a difficult transition to make. I discussed starting a Cecur simplicity 4 day insulin patch pump with both patient and his son and they are in agreement. They will have outside training by the company in the patient has given me permission to give his name and phone number date of 2 the company rep. The patient's is his [employer]DER and I recommended that she sit in on the training. The patient had an opportunity to ask questions regarding treatment plan. The patient expressed understanding and agreement with the above treatment plan. The patient is aware they should contact our office by phone for worsening glucose readings or for any low blood sugars which may warrant a change in diabetes medication. Compliance is encouraged with medications and any followup testing/consults which may have been ordered. Medications: New insulin lispro 10-14 units with meals, 2-4 with snack for use with CeQur. Each click equals 2 units subcutaneously use as directed; 30 days 20 mL 6RF insulin degludec (Tresiba FlexTouch U-200 insulin) 38 units (0.19 mL) subcut DAILY 30 days 6 mL 11RF bolus insulin pump, 200 unit (CeQur Simplicity) As directed 4 day insulin patch 8 ea 6RF diabetic supplies, miscellan. (CeQur Simplicity [employer]) As directed for use with CeQur insulin patch 1 ea 1RF Patient Instructions: The patient was counseled to achieve a target A1C of 7% (154 avg). Fasting blood sugars should be 90-130 in the morning and less than 180 two hours after meals. Reviewed the relationship between poor diabetic control and the development of complications. Coding Level of Care Code Est Pt Level 4 (34221) Complex EM visit Add On G2211 Diagnoses Diabetes mellitus with retinopathy, with long-term current use of insulin E11.319; Z79.4
[2024-06-19 12:47] LABS: Glucose, Whole Blood 206 mg/dL (60-115)
== END 2024-06-19 13:07 | disposition home or self-care (01) ==
PROVIDERS: PCP Internal Medicine; Visit Provider Nurse Practitioner Adult Health
DX: E11.319 Type 2 diabetes mellitus with unspecified diabetic retinopathy without macular edema (principal); Z79.4 Long term (current) use of insulin
CPT/HCPCS: 99214; G2211

== ENCOUNTER → 2024-06-19 12:17 | Outpatient (BNVA) | payer MEDICARE, SELFPAY | PROVIDERS: PCP Internal Medicine; Visit Provider Nurse Practitioner Adult Health | DX: E11.319 Type 2 diabetes mellitus with unspecified diabetic retinopathy without macular edema (principal); Z79.4 Long term (current) use of insulin | CPT/HCPCS: 82947; 99212 ==

== ENCOUNTER 2024-07-04 13:03 | Emergency (ER) | payer MEDICARE, SELFPAY ==
--- NOTE | ~2024-07-04 | CT_ITS ---
EXAMINATION: CT ABDOMEN AND PELVIS WITHOUT CONTRAST CLINICAL INFORMATION: Flank pain. COMPARISON: CT abdomen and pelvis 10/18/2023. TECHNIQUE: Multidetector volumetric imaging was performed from the superior aspect of the liver through the pubic symphysis. Sagittal and coronal reformatted images were obtained on the technologist's workstation. This CT examination was performed using dose optimization techniques as appropriate, variously including the following: *Automated exposure control *Adjustment of mA and/or kV according to patient size (this includes techniques or standardized protocols for targeted exams where dose is matched to indication/reason for exam; i.e. extremities or head) *Use of iterative reconstruction technique DLP: 760 mGy-cm FINDINGS: The lack of intravenous contrast limits evaluation of the solid visceral organs including the liver, spleen, pancreas, and kidneys. LUNG BASES: Partially seen severe multivessel coronary artery calcifications and postoperative changes in the cardiomediastinum including median sternotomy wires. No dense consolidation or pleural effusion. LIVER, GALLBLADDER, AND BILIARY TREE: Decreased attenuation of the liver parenchyma consistent with hepatic steatosis. Hepatomegaly measuring 20 cm craniocaudally. Few tiny granulomas. No suspicious focal hepatic lesion in this limited noncontrast examination. No biliary ductal dilatation is present. Cholecystectomy. PANCREAS: Equivocal trace proximal peripancreatic fatty haziness. No main ductal dilatation. No discrete focal parenchymal abnormality in this limited noncontrast examination. SPLEEN: Enlarged measuring 13.7 cm craniocaudally with scattered granulomas. ADRENAL GLANDS: Stable asymmetric prominence of the left adrenal gland. KIDNEYS AND URETERS: No nephrolithiasis or hydronephrosis. Nonobstructive 0.3 cm calculus in the lower pole of the left kidney. The distal left ureter is slightly asymmetric compared to the right (3:70) without a clear obstructing calculus or obstructive abnormality. Benign-appearing cortical cysts and a few too small to characterize bilateral cortical hypodensities, for which no imaging follow-up is recommended. No significant perinephric fat stranding. BLADDER: Unremarkable. GASTROINTESTINAL TRACT: The stomach and the small bowel are nondilated. Normal appendix. Colonic diverticulosis without significant pericolonic inflammatory changes. No evidence of bowel obstruction. ABDOMINAL WALL: No significant hernia is appreciated. LYMPH NODES: Prominent peripancreatic and periportal lymph nodes are stable for example a peripancreatic lymph node measuring 0.8 cm in short axis (3:23) and a periportal lymph node measuring 1.1 cm in short axis (3:24). VASCULAR: Severe atherosclerotic disease. Normal caliber of the abdominal aorta. PELVIC VISCERA: Stable mild prostatomegaly. Severe calcifications of the bilateral vas deferens that could be seen with diabetes. OSSEOUS STRUCTURES: No acute or aggressive appearing bone findings. Chronic bilateral L5 pars defects CT/CT abdomen pelvis wo IV con IMPRESSION: 1. Mild asymmetric prominence of the distal left ureter that could be physiological or related with a recently passed calculus in the appropriate clinical context. Attention on follow-up in future examinations recommended. 2. Nonobstructive 0.3 cm calculus in the lower pole of the left kidney. 3. Equivocal trace proximal peripancreatic fatty haziness. Correlate clinically for acute pancreatitis. 4. Hepatosplenomegaly and hepatic steatosis. 5. Diverticulosis but no evidence of acute diverticulitis. Electronically signed by: Pili Joseph MD 07/04/2024 06:00 PM [facility]
[2024-07-04 13:11] VITALS: BP 151/80; PULSE 78; RESP 20; TEMP 36.6; O2SAT 97; BMI 36.0
--- NOTE | 2024-07-04 13:11 | ED.ABDPAIN ---
HPI - Abdominal Pain General Chief Complaint: Abdominal Pain Stated Complaint: Abd/back pain Time Seen by Provider: 07/04/24 19:31 Source: patient, RN notes reviewed and old records reviewed Mode of arrival: ambulatory Limitations: no limitations History of Present Illness ED Provider: Isa HPI narrative: 59-year-old male past medical history significant for obesity, paroxysmal atrial fibrillation, diabetes, GERD, coronary artery disease presents for evaluation of abdominal pain that radiates to the back. Patient reports his symptoms started yesterday. He states ?I do not know if it is my kidney stones or my pancreatitis because I have both. ? His pain radiates around to the right flank. His pain is currently 8/10. He has associated nausea without vomiting. He denies alcohol abuse Denies any fevers, chills No other complaints or concerns at this time Related Data Home Medications ?Medication ?Instructions ?Recorded ?Confirmed blood sugar diagnostic (FreeStyle 12/01/22 05/31/24 Lite Strips) blood-glucose meter (FreeStyle 12/01/22 05/31/24 Lite Meter kit) atorvastatin 80 mg tablet 80 mg PO BEDTIME 06/20/23 05/31/24 famotidine 40 mg tablet 40 mg PO DAILY PRN heartburn 09/11/23 05/31/24 amiodarone 200 mg tablet 200 mg PO BID 10/18/23 05/31/24 pantoprazole 40 mg tablet,delayed 40 mg PO DAILY@0630 10/18/23 05/31/24 release clopidogrel 75 mg tablet 75 mg PO DAILY 11/18/23 05/31/24 dapagliflozin propanediol 10 mg 10 mg PO DAILY 11/18/23 05/31/24 tablet (Farxiga) losartan 25 mg tablet 25 mg PO DAILY 11/18/23 05/31/24 spironolactone 25 mg tablet 25 mg PO DAILY 11/18/23 05/31/24 Previous Rx's ?Medication ?Instructions ?Recorded Bedside commode #1 ea 04/18/22 walker with wheels #1 ea 08/19/22 flash glucose scanning reader #1 ea 12/02/22 (FreeStyle Frank 2 [place]) aspirin 81 mg chewable tablet 81 mg PO DAILY #90 tabs 09/10/23 acetaminophen 325 mg tablet 650 mg (2 x 325 mg) PO TID #90 tabs 12/21/23 recliner #1 ea 12/22/23 Hospital bed #1 ea 01/11/24 Toilet rails #1 ea 01/11/24 Wheelchair with cushion #1 ea 01/11/24 docusate sodium 100 mg capsule 100 mg PO BID PRN constipation #60 01/11/24 caps ferrous sulfate 325 mg (65 mg 325 mg PO DAILY #90 tabs 01/11/24 iron) tablet gabapentin 600 mg tablet 600 mg PO TID #90 tabs 01/11/24 metoprolol succinate 50 mg 50 mg PO DAILY #90 tabs 01/11/24 tablet,extended release 24 hr polyethylene glycol 3350 17 gram 17 g PO DAILY #30 ea 01/11/24 oral powder packet liners for incontinence #30 ea 01/25/24 pen needle, diabetic 31 gauge x #100 ea 02/13/2401/10 (BD Ultra-Fine Short Pen Needle) flash glucose sensor (FreeStyle #2 kits 03/30/24 Frank 2 Sensor kit) sertraline 100 mg tablet 100 mg PO BEDTIME #90 tabs 04/04/24 glucose 4 gram chewable tablet 16 g (4 x 4 gram) PO Q15M PRN 05/31/24 (Dex4 Glucose) hypoglycemia #100 tabs insulin glargine 100 unit/mL (3 34 unit (0.34 mL) subcut BEDTIME 05/31/24 mL) subcutaneous pen (Lantus #15 mL Solostar U-100 Insulin) bolus insulin pump, 200 unit 2 #8 ea 06/19/24 unit bolus insulin patch pump, 200 unit, disposable (CeQur Simplicity) diabetic supplies, [place]. #1 ea 06/19/24 (CeQur Simplicity Top Closer) insulin degludec 200 unit/mL (3 38 unit (0.19 mL) subcut DAILY 30 06/19/24 mL) subcutaneous pen (Tresiba days #6 mL FlexTouch U-200 insulin) insulin lispro 100 unit/mL See Rx Instructions subcut 06/19/24 subcutaneous solution USEASDIRECTD 30 days #20 mL melatonin 3 mg tablet 6 mg (2 x 3 mg) PO BEDTIME PRN 06/20/24 Insomnia #90 tabs insulin lispro 100 unit/mL See Rx Instructions subcut QIDACHS 06/26/24 subcutaneous pen (Humalog KwikPen #15 mL (U-100) Insulin) ondansetron 4 mg disintegrating 4 mg PO Q8H PRN nausea and 07/04/24 tablet vomiting #20 tabs oxycodone 5 mg tablet 5 mg PO Q6H PRN pain #12 tabs 07/04/24 Allergies Allergy/AdvReac Type Severity Reaction Status Date / Time No Known Allergies Allergy Verified 07/04/24 13:13 Review of Systems Constitutional: Denies body ache(s), Denies chills, Denies fatigue, Denies fever(s) and Denies frequent falls Eyes: Denies blurry vision Denies vertigo and Denies dizziness Cardiovascular: Denies chest pain and Denies dyspnea Respiratory: Denies cough and Denies dyspnea Gastrointestinal: Reports abdominal pain, Denies diarrhea, Denies loose stools, Reports nausea and Denies vomiting Genitourinary: Denies difficulty urinating and Denies dysuria Musculoskeletal: Reports back pain Skin/Breast: Denies rash Denies vertigo, Denies dizziness and Denies frequent falls Endocrine: Denies fatigue [facility] Past Medical History Medical History (Updated 07/04/24 @ 21:48 by Chad Moss) Hx of non-ST elevation myocardial infarction (NSTEMI) Major depression, recurrent Paroxysmal atrial fibrillation History of alcohol abuse Anemia Atrial fibrillation Essential hypertension PAD (peripheral artery disease) 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 Diabetes mellitus with retinopathy, with long-term current use of insulin Heartburn symptom Erectile dysfunction Dyslipidemia Amputation stump complication Hyperlipidemia Chronic pancreatitis Neuropathy Kidney calculus CAD (coronary artery disease) Arthritis Surgical History History of open heart surgery S/P angiogram of extremity (06/28/23) History of right below knee amputation Status post below-knee amputation S/P debridement Hx of lithotripsy Status post laparoscopic cholecystectomy Hx of heart artery stent Family History Family History Mother [place] (myocardial infarction), Onset Age: 64 Diabetes mellitus HTN (hypertension) Maternal Grandmother Diabetes mellitus Social History Social History Household Members: Spouse Household Members Other:: and daughter Housing: Apartment Do you presently have visiting nurse or other home services: Yes Alcohol intake: former Comment: Bilateral BKA's. Patient Tobacco Use Status: Former Tobacco user Tobacco use type: Cigarette Cigarette Packs Per Day: 0.01 Cigarettes Per Day: 3 Years Smoked: 30 e-Cigarette/Vaping Use: Never Used Second Hand Smoke Exposure: No Substance Use Type: Marijuana Advance Directives: No Advance Directives Information Provided: No Advance Directives Date on File: 04/17/21 service: No Current occupational status: unemployed and disabled Cognitive needs: No Hearing needs: No Vision needs: Yes Physical Exam ED Vital Signs: Vital Signs - 24 hr 07/04/24 13:11 07/04/24 18:14 07/04/24 19:38 Temperature 97.8 F 97.3 F 98.2 F Pulse Rate 78 78 70 Respiratory Rate 20 16 16 Blood Pressure 151/80 H 113/72 137/69 Pulse Oximetry 97 97 93 Oxygen Delivery Method Room Air Room Air Room Air BMI result Body Mass Index 36.0 Const General: healthy appearing, comfortable, no acute distress, alert and awake Nutritional Appearance: well nourished Orientation/consciousness: patient oriented x3 HENMT Head: Yes normocephalic and Yes atraumatic Eyes Eyelids: Yes eyelids normal Conjunctivae: conjunctivae normal Sclerae: sclerae normal Corneas: corneas normal Pupils: Equal, round and reactive pupils present EOM: EOMs intact bilaterally Neck Neck: Yes full ROM Resp Effort & Inspection: normal respiratory effort, able to speak in complete sentences and not labored Cardio Rate: regular rate Rhythm: regular rhythm GI Inspection: No distended Palpation (GI): Soft to palpation, not firm, Tenderness to palpation present (GI) in the epigastrum, in the RLQ, in the LUQ and in the RUQ, no guarding and not rigid Auscultation: normoactive bowel sounds Skin General skin exam: elasticity normal Neuro General: patient oriented x3 Cranial nerves: Yes Equal, round and reactive pupils present and Yes Bilaterally intact EOM present Cognition (Neuro): normal cognition Extrem Other: Moving all extremities well without any obvious deformities Course Course Course Narrative: This is an RME: Additional HPI, ROS, PE not included below will be deferred to primary provider. RME assessment and note performed by: Mariposa Shah PA-C This is a 22-jgzi-emx-male, with a hx of a fib on plavix, diabetes, PAD, BL amputation, HLD, HTN, CAD, who presents to the ER with complaints of abdominal pain since yesterday. Reports hx of pancreatitis and kidney stones and pain feels similar. Pain R flank region. Plan: Labs, EKG, further ER evaluation needed. Reevaluation(s) Reevaluation #1: Patient is still has mild abdominal pain after receiving IV fluids, analgesia and antiemetics. However he is able to tolerate p.o.. We will discharge the patient with a short course of oxycodone and Zofran. He will follow up with his PCP, return precautions were given. The patient's urinalysis did not have any hematuria, there is less likely did not have any obstructive uropathy, the asymmetry of the distal ureter may be physiologic Time: 21:47 Medical Decision Making Medical Decision Making [facility] Narrative: 59-year-old male with past medical history as documented above presents for evaluation abdominal pain that radiates to his right flank. He has a history of both kidney stones and pancreatitis. His labs show an elevated lipase to [address] scan shows mild haziness consistent with pancreatitis. The patient's bilirubin is 0.4, less likely to be obstructive biliary disease. The patient's CT scan also shows asymmetry of the right distal ureter which could be related to a recently passed stone versus physiologic. Plan to get a urinalysis to look for hematuria to help determine if you did recently passed a stone.. Patient's renal function is within normal limits. He has a mild elevation of AST and ALT of unclear etiology Differential Diagnosis Differential Diagnoses: The differential diagnosis associated with the presentation includes Pancreatitis Obstructive uropathy Constipation Gastroenteritis Biliary disease Abdominal pain Lab Data [facility] Lab Attestation statement: I reviewed the patient's lab results. No leukocytosis or anemia. Normal platelet count. Patient's chemistries show no significant electrolyte abnormalities. His glucose is elevated to 278. Anion gap is normal at 17. No evidence of DKA slight elevation of AST and ALT, bilirubin within normal limits. 07/04/24 13:27 07/04/24 13:27 Labs: Lab Results 07/04/24 07/04/24 Range/Units 13:27 20:47 WBC 10.1 (4.8-10.8) X10*3/uL RBC 5.51 D (4.60-5.80) X10*6/uL Hgb 15.2 D (14.0-18.0) g/dl Hct 45.7 D (42.0-52.0) % MCV 82.9 (80.0-98.0) fL MCH 27.6 (27.0-33.0) pg MCHC 33.3 (31.0-36.0) g/dl RDW 15.9 (11.0-16.0) % Plt Count 208 D (160-400) X10*3/uL MPV 10.6 (9.4-12.4) fL Immature Gran % (Auto) 1.2 H (0.0-0.4) % Neut % (Auto) 70.5 (45-73) % Lymph % (Auto) 16.4 L (20-40) % [place] % (Auto) 7.3 (2-11) % Eos % (Auto) 3.9 (0-4) % Baso % (Auto) 0.7 (0-2) % Lymph # (Auto) 1.7 (1.2-4.9) X10*3/uL [place] # (Auto) 0.7 (0.1-1.2) X10*3/uL Eos # (Auto) 0.4 (0.0-0.4) X10*3/uL Baso # (Auto) 0.1 (0.0-0.2) X10*3/uL Abs Immat Gran (auto) 0.12 H (0.00-0.03) X10*3/uL Absolute Neuts (auto) 7.1 (2.0-8.3) x10*3/uL Absolute Nucleated RBC 0.000 (0.0-0.012) X10*3/uL Nucleated RBC % (auto) 0.0 (0.0-0.2) /100WBC Sodium 135 (135-145) mmol/L Potassium 4.6 D (3.3-5.1) mmol/L Chloride 102 (96-108) mmol/L Carbon Dioxide 21 L (22-29) mmol/L Anion Gap 17 (12-20) BUN 18 H (9-16) mg/dL Creatinine 0.85 (0.5-1.4) mg/dL Estim Creat Clear Calc 109.0 Estimated GFR > 60 Random Glucose 278 H (60-115) mg/dL Calcium 9.7 D (8.4-10.2) mg/dL Magnesium 2.0 (1.6-2.6) mg/dL Total Bilirubin 0.4 (0.0-1.0) mg/dL Direct Bilirubin 0.2 (0.0-0.5) mg/dL AST 44 H (5-37) U/L ALT 54 H (0-40) U/L Alkaline Phosphatase 78 (39-117) U/L Troponin I High Sens 4.7 D (<3.5-35.0) ng/L Total Protein 8.5 H (6.5-8.0) g/dL Albumin 4.1 (3.5-5.0) g/dL Lipase 123 H (8-78) U/L Urine Color Yellow Urine Appearance Clear Urine pH 5.5 (5.0-9.0) Ur Specific [place] >= 1.030 H (1.005-1.025) Urine Protein Negative (Neg-Trace) mg/dL Urine Glucose (UA) >=1000 H (Negative) mg/dL Urine Ketones Negative (Negative) mg/dL Urine Blood Negative (Negative) Urine Nitrite Negative (Negative) Ur Leukocyte Esterase Negative (Negative) Urine RBC 0-2 (0-2) /HPF Urine WBC 0-5 (0-5) /HPF Ur Squamous Epith Cells 0-2 (0-2) /HPF Urine Bacteria None Seen (None Seen) Hyaline Casts 0-2 (0-2) /LPF Medications Administered Discontinued Medications Generic Name Dose Route Start Last Admin Trade Name Alyssa PRN Reason Stop Dose Admin Acetaminophen 650 mg 07/04/24 18:15 07/04/24 18:17 Acetaminophen 325 Mg Tablet PO 07/04/24 18:16 650 mg ONCE ONE Administration Sodium Chloride 1,000 mls @ 999 mls/hr 07/04/24 19:45 07/04/24 21:32 Ns IV 07/04/24 20:45 Infused .Q1H1M SHELLY Infusion Morphine Sulfate 4 mg 07/04/24 19:40 07/04/24 19:51 Morphine Sulfate 4 Mg/Ml Cartridge IVPUSH 07/04/24 19:41 4 mg ONCE ONE Administration Protocol Ondansetron HCl 4 mg 07/04/24 19:40 07/04/24 19:51 Ondansetron Hcl 4 Mg/2 Ml Vial IVPUSH 07/04/24 19:41 4 mg ONCE ONE Administration Discharge Plan Discharge Clinical Impression: Pancreatitis Patient Disposition: Home, Self-Care Instructions: Pancreatitis (ED) Additional Instructions: Your workup showed mild pancreatitis. I recommend a liquid diet for the next 2 days. You may advance slowly as your pain improves You may use oxycodone for severe, breakthrough pain that is not relieved with Tylenol. Use Zofran as needed for nausea and vomiting Follow-up with your primary doctor, return for new or worsening symptoms Prescriptions: New oxycodone 5 mg tablet 5 mg PO Q6H PRN (Reason: pain) Qty: 12 0RF Rx Instructions: Partial Fill upon patient request. ondansetron 4 mg tablet,disintegrating 4 mg PO Q8H PRN (Reason: nausea and vomiting) Qty: 20 0RF No Action (DME) Bedside commode See Rx Instructions .Route .MEDSUPPLY Qty: 1 0RF Rx Instructions: As directed (DME) walker with wheels See Rx Instructions .Route .MEDSUPPLY Qty: 1 0RF Rx Instructions: As directed (DME) FreeStyle Frank 2 [place] Misc See Rx Instructions .Route Qty: 1 0RF Rx Instructions: As directed aspirin 81 mg tablet,chewable 81 mg PO DAILY Qty: 90 1RF (DME) recliner See Rx Instructions .Route .MEDSUPPLY Qty: 1 0RF Rx Instructions: As directed (DME) liners for incontinence See Rx Instructions .Route .MEDSUPPLY Qty: 30 5RF Rx Instructions: Use As directed (DME) pen needle, diabetic [BD Ultra-Fine Short Pen Needle] 31 gauge x 5/16 needle See Rx Instructions .ROUTE .COMPLEX Qty: 100 1RF Dose Instruction: USE MARÍA LO INDICADO BENNETT VECES AL LIZZIE ANTES DE LAS COMIDAS Rx Instructions: USE MARÍA LO INDICADO BENNETT VECES AL LIZZIE ANTES DE LAS COMIDAS (DME) FreeStyle Frank 2 Sensor Kit See Rx Instructions .ROUTE .COMPLEX Qty: 2 8RF Dose Instruction: DIRECTED CHANGE EVERY 14 DAYS Rx Instructions: DIRECTED CHANGE EVERY 14 DAYS sertraline 100 mg tablet 100 mg PO BEDTIME Qty: 90 1RF melatonin 3 mg tablet 6 mg PO BEDTIME PRN (Reason: Insomnia) Qty: 90 1RF insulin lispro [Humalog KwikPen Insulin] 100 unit/mL insulin pen See Rx Instructions subcut QIDACHS Qty: 15 6RF Rx Instructions: 10-12 units of Humalog prior to breakfast, 10-12 units before lunch, 8-10 units prior to dinner and 2-4 units prior to bedtime snack. subcutaneously 4 times a day before meal/bed; famotidine 40 mg tablet 40 mg PO DAILY PRN (Reason: heartburn) amiodarone 200 mg tablet 200 mg PO BID pantoprazole 40 mg tablet,delayed release (DR/EC) 40 mg PO DAILY@0630 acetaminophen 325 mg Tablet 650 mg PO TID Qty: 90 0RF clopidogrel 75 mg tablet 75 mg PO DAILY dapagliflozin propanediol [Farxiga] 10 mg tablet 10 mg PO DAILY losartan 25 mg tablet 25 mg PO DAILY spironolactone 25 mg tablet 25 mg PO DAILY (DME) Wheelchair with cushion See Rx Instructions .Route .MEDSUPPLY Qty: 1 0RF Rx Instructions: As directed (DME) Toilet rails See Rx Instructions .Route .MEDSUPPLY Qty: 1 0RF Rx Instructions: As directed (DME) Hospital bed See Rx Instructions .Route .MEDSUPPLY Qty: 1 0RF Rx Instructions: As directed gabapentin 600 mg tablet 600 mg PO TID Qty: 90 4RF metoprolol succinate 50 mg tablet extended release 24 hr 50 mg PO DAILY Qty: 90 1RF polyethylene glycol 3350 17 gram powder in packet 17 g PO DAILY Qty: 30 0RF docusate sodium 100 mg capsule 100 mg PO BID PRN (Reason: constipation) Qty: 60 5RF ferrous sulfate 325 mg (65 mg iron) tablet 325 mg PO DAILY Qty: 90 2RF (DME) blood-glucose meter [FreeStyle Lite Meter] Kit See Rx Instructions .Route Rx Instructions: As directed (DME) FreeStyle Lite Strips Strip See Rx Instructions .Route Rx Instructions: As directed atorvastatin 80 mg tablet 80 mg PO BEDTIME insulin degludec [Tresiba FlexTouch U-200] 200 unit/mL (3 mL) insulin pen 38 unit subcut DAILY 30 Days Qty: 6 11RF insulin lispro 100 unit/mL solution See Rx Instructions subcut USEASDIRECTD 30 Days Qty: 20 6RF Rx Instructions: 10-14 units with meals, 2-4 with snack for use with CeQur. Each click equals 2 units subcutaneously use as directed; (DME) CeQur Simplicity 2 unit device See Rx Instructions .ROUTE .MEDSUPPLY Qty: 8 6RF Rx Instructions: As directed 4 day insulin patch (DME) CeQur Simplicity Top Closer Misc See Rx Instructions .ROUTE .MEDSUPPLY Qty: 1 1RF Rx Instructions: As directed for use with CeQur insulin patch insulin glargine [Lantus Solostar U-100 Insulin] 100 unit/mL (3 mL) insulin pen 34 unit subcut BEDTIME Qty: 15 3RF glucose [Dex4 Glucose] 4 gram tablet,chewable 16 g PO Q15M PRN (Reason: hypoglycemia) Qty: 100 0RF Rx Instructions: until symptoms of low blood sugar are controlled Print Language: Omani
--- NOTE | 2024-07-04 13:14 | ECG_ITS ---
Test Reason : ABDOMINAL PAIN Blood Pressure : / mmHG Vent. Rate : 080 BPM Atrial Rate : 080 BPM P-R Int : 170 ms QRS Dur : 140 ms QT Int : 426 ms P-R-T Axes : 033 -72 090 degrees QTc Int : 491 ms Normal sinus rhythm Right bundle branch block Left anterior fascicular block Bifascicular block Left ventricular hypertrophy with repolarization abnormality ( R in aVL ) Abnormal ECG When compared with ECG of 02-NOV-2023 02:21, Borderline criteria for Lateral infarct are no longer Present Referred By: Mariposa Shah Electronically Signed By:SAUL MARCH MD
[2024-07-04 13:32] LABS: MANUAL DIFF FLAG NO
[2024-07-04 13:34] LABS: Basophils Absolute Auto 0.1 X10*3/uL (0.0-0.2); Basophils Percent Auto 0.7 % (0-2); Eosinophils Absolute Auto 0.4 X10*3/uL (0.0-0.4); Eosinophils Percent Auto 3.9 % (0-4); Hematocrit 45.7 % (42.0-52.0); Hemoglobin 15.2 g/dl (14.0-18.0); Imm Gran Abs Auto 0.12 X10*3/uL (0.00-0.03); Imm Gran Pct Auto 1.2 % (0.0-0.4); Lymphocytes Absolute Auto 1.7 X10*3/uL (1.2-4.9); Lymphocytes Percent Auto 16.4 % (20-40); Mean Corpuscular HGB Conc 33.3 g/dl (31.0-36.0); Mean Corpuscular Hemoglobin 27.6 pg (27.0-33.0); Mean Corpuscular Volume 82.9 fL (80.0-98.0); Mean Platelet Volume 10.6 fL (9.4-12.4); Monocytes Absolute Auto 0.7 X10*3/uL (0.1-1.2); Monocytes Percent Auto 7.3 % (2-11); Neutrophils Absolute Auto 7.1 x10*3/uL (2.0-8.3); Neutrophils Percent Auto 70.5 % (45-73); Platelet Count 208 X10*3/uL (160-400); Red Blood Count 5.51 X10*6/uL (4.60-5.80); Red Cell Distribution Width 15.9 % (11.0-16.0); White Blood Count 10.1 X10*3/uL (4.8-10.8)
[2024-07-04 13:52] LABS: Alanine Aminotransferase 54 U/L (0-40); Albumin Level 4.1 g/dL (3.5-5.0); Alkaline Phosphatase 78 U/L (39-117); Anion Gap 17 (12-20); Aspartate Amino Transferase 44 U/L (5-37); Bilirubin Direct 0.2 mg/dL (0.0-0.5); Bilirubin Total 0.4 mg/dL (0.0-1.0); Blood Urea Nitrogen 18 mg/dL (9-16); Calcium 9.7 mg/dL (8.4-10.2); Carbon Dioxide 21 mmol/L (22-29); Chloride 102 mmol/L (96-108); Estimated Glomerular Filt Rate > 60; Glucose Random 278 mg/dL (60-115); Lipase 123 U/L (8-78); Potassium 4.6 mmol/L (3.3-5.1); Sodium 135 mmol/L (135-145); Total Protein 8.5 g/dL (6.5-8.0)
[2024-07-04 14:00] LABS: Troponin-I High Sensitivity 4.7 ng/L (<3.5-35.0)
[2024-07-04 18:14] VITALS: BP 113/72; PULSE 78; RESP 16; TEMP 36.3; O2SAT 97
[2024-07-04] MEDS: Acetaminophen 325 MG TABLET 650 MG PO (18:17)
[2024-07-04 19:38] VITALS: BP 137/69; PULSE 70; RESP 16; TEMP 36.8; O2SAT 93
[2024-07-04] MEDS: 0.9 % Sodium Chloride 1,000 ML 999 ML IV (19:50)
[2024-07-04] MEDS: ondansetron HCL 4 MG/2 ML VIAL IVPUSH (19:51)
[2024-07-04] MEDS: Morphine Sulfate 4 MG/ML CARTRIDGE IVPUSH (19:51)
[2024-07-04 21:07] LABS: Appearance Urine Clear; Color Urine Yellow; Glucose Urine UA >=1000 mg/dL (Negative); Leukocyte Esterase Urine Negative (Negative); Nitrite Urine Negative (Negative); PH 5.5 (5.0-9.0); Specific Gravity - Urine >= 1.030 (1.005-1.025); UMIC TRIGGER UACC YES; Urine Blood Negative (Negative); Urine Ketones Negative (Negative); Urine Protein Negative (Neg-Trace)
[2024-07-04 21:09] LABS: Bacteria Urine None Seen (None Seen); Hyaline Casts Urine 0-2 /LPF (0-2); RBC Urine 0-2 /HPF (0-2); Squamous Epithelial Cell Urine 0-2 /HPF (0-2); WBC Urine 0-5 /HPF (0-5)
[2024-07-04 22:02] VITALS: BP 136/72; PULSE 69; RESP 16; TEMP 36.6; O2SAT 95
[2024-07-04 22:18] VITALS: BP 129/88; PULSE 72; RESP 18; TEMP 36.7; O2SAT 97
== END 2024-07-04 22:10 | disposition home or self-care (01) ==
PROVIDERS: Physician Assistant; Physician Assistant Medical; Emergency Provider Internal Medicine; PCP Internal Medicine
DX: K85.90 Acute pancreatitis without necrosis or infection, unspecified (principal); M54.50 Low back pain, unspecified; I45.10 Unspecified right bundle-branch block; R94.31 Abnormal electrocardiogram [ECG] [EKG]; R10.2 Pelvic and perineal pain; R11.0 Nausea; E11.9 Type 2 diabetes mellitus without complications; Z87.891 Personal history of nicotine dependence; Z79.899 Other long term (current) drug therapy; Z79.4 Long term (current) use of insulin
CPT/HCPCS: 36415; 74176; 80048; 80076; 81001; 83690; 83735; 84484; 85025; 93005; 96361; 96374; 96375; 99284; J2270; J2405

== ENCOUNTER → 2024-07-04 13:14 | Outpatient (BNV) | payer MEDICARE, SELFPAY | PROVIDERS: Emergency Provider Internal Medicine; PCP Internal Medicine; Visit Provider Internal Medicine Cardiovascular Disease | DX: R94.31 Abnormal electrocardiogram [ECG] [EKG] (principal) | CPT/HCPCS: 93010 ==

== ENCOUNTER 2024-07-11 12:02 | Emergency (ER) | payer MEDICARE, SELFPAY ==
[2024-07-11] VITALS (7 sets, daily range): BP systolic 105–137; BP diastolic 44–73; PULSE 64–78; RESP 14–20; TEMP 36.6–37.1; O2SAT 95–98; BMI 36.0
--- NOTE | ~2024-07-11 | US_ITS ---
EXAMINATION: US ABDOMEN LIMITED CLINICAL INFORMATION: Right upper quadrant pain.. COMPARISON: Collated to CT dated July 04, 2024. TECHNIQUE: Real-time imaging of the right upper quadrant abdominal viscera using grayscale and color Doppler technique. FINDINGS: GALLBLADDER: Absent. No fluid collection in the gallbladder fossa. COMMON BILE DUCT: 3 mm. RIGHT KIDNEY: 11 x 5 x 6 cm. No solid or cystic lesion. No hydronephrosis. Normal echotexture. Normal flow on color Doppler interrogation of the renal hilum. Left kidney: 11 x 7 x 5 cm. No solid or cystic lesion. Normal echotexture. Normal flow on color Doppler interrogation of the renal hilum. FREE FLUID: None. US/US abdomen limited IMPRESSION: Status post cholecystectomy. No choledocholithiasis. No hydronephrosis. No ascites. Electronically signed by: Jaren Bower MD 07/11/2024 03:02 PM [facility]
--- NOTE | ~2024-07-11 | CT_ITS ---
EXAMINATION: CT ABDOMEN AND PELVIS WITH CONTRAST CLINICAL INFORMATION: Pancreatitis COMPARISON: Ultrasound abdomen 07/01/[address] abdomen pelvis 07/04/2024 and 04/10/2022. TECHNIQUE: Multidetector volumetric imaging was performed from the superior aspect of the liver through the pubic symphysis with intravenous contrast. A total of 85 mL of Omnipaque 350 was utilized for the study. Sagittal and coronal reformatted images were obtained on the technologist's workstation. This CT examination was performed using dose optimization techniques as appropriate, variously including the following: *Automated exposure control *Adjustment of mA and/or kV according to patient size (this includes techniques or standardized protocols for targeted exams where dose is matched to indication/reason for exam; i.e. extremities or head) *Use of iterative reconstruction technique DLP: 821 mGy-cm FINDINGS: LUNG BASES: There is marked bilateral gynecomastia. Status post median sternotomy. Coronary calcium is present. The visualized lung bases are unremarkable. LIVER, GALLBLADDER, AND BILIARY TREE: The liver is normal in size, shape, and attenuation. No focal hepatic lesion or biliary ductal dilatation is present. Status post cholecystectomy PANCREAS: Unremarkable. SPLEEN: Spleen is enlarged at 14 cm in greatest transverse and cephalocaudad dimension . ADRENAL GLANDS: Unremarkable. KIDNEYS AND URETERS: The kidneys are normal in size, shape, and attenuation. There is a 4 mm nonobstructing calculus at the lower pole of the left kidney No hydronephrosis, hydroureter, or calculi seen. No perinephric stranding. A benign right mid renal medial 2.7 cm Bosniak class I renal cyst is noted which requires no additional imaging or follow up. No solid renal masses are seen. BLADDER: Unremarkable. GASTROINTESTINAL TRACT: The small and large bowel are unremarkable. The appendix is unremarkable. ABDOMINAL WALL: No significant hernia is appreciated. LYMPH NODES: No retroperitoneal lymphadenopathy. VASCULAR: Calcific atherosclerotic changes are present in the aorta and iliofemoral vessels. There is no evidence of an abdominal aortic aneurysm. PELVIC VISCERA: Mild BPH. Seminal vesicles are normal OSSEOUS STRUCTURES: Unremarkable. Unchanged 8 mm lytic area in the anterior vertebral body of L3. CT/CT abdomen pelvis w IV con IMPRESSION: 1. A cause for the patient's acute pancreatitis has not been found. 2. Incidental note made of marked bilateral gynecomastia, cholecystectomy, mild splenomegaly, nonobstructing 4 mm left lower pole renal calculus, pars defects at L5 and mild BPH. Fleischner guidelines were followed. Electronically signed by: Alex Patrick MD 07/11/2024 10:11 PM [facility]
--- NOTE | 2024-07-11 12:29 | ED_ITS ---
HPI - Abdominal Pain General Chief Complaint: Abdominal Pain Stated Complaint: abd pain Time Seen by Provider: 07/11/24 17:50 Source: patient, RN notes reviewed and old records reviewed Mode of arrival: ambulatory Limitations: no limitations History of Present Illness ED Provider: Isa HPI narrative: 59-year-old male with past medical history significant for hyperlipidemia, coronary artery disease, atrial fibrillation, not anticoagulated, obesity, GERD, diabetes, pancreatitis presents for evaluation abdominal pain. Patient was seen here 1 week ago for abdominal pain and was diagnosed with pancreatitis. He reports his pain improved for 2 days after being discharged His pain restarted on Monday and worsened on Monday, 2 days ago. He reports his pain is 10/10. He is status post cholecystectomy Denies any fevers, chills. He has not had any nausea or vomiting He reports his pain today is worse than it was last week Related Data Home Medications ?Medication ?Instructions ?Recorded ?Confirmed blood sugar diagnostic (FreeStyle 12/01/22 05/31/24 Lite Strips) blood-glucose meter (FreeStyle 12/01/22 05/31/24 Lite Meter kit) atorvastatin 80 mg tablet 80 mg PO BEDTIME 06/20/23 05/31/24 famotidine 40 mg tablet 40 mg PO DAILY PRN heartburn 09/11/23 05/31/24 amiodarone 200 mg tablet 200 mg PO BID 10/18/23 05/31/24 pantoprazole 40 mg tablet,delayed 40 mg PO DAILY@0630 10/18/23 05/31/24 release clopidogrel 75 mg tablet 75 mg PO DAILY 11/18/23 05/31/24 dapagliflozin propanediol 10 mg 10 mg PO DAILY 11/18/23 05/31/24 tablet (Farxiga) losartan 25 mg tablet 25 mg PO DAILY 11/18/23 05/31/24 spironolactone 25 mg tablet 25 mg PO DAILY 11/18/23 05/31/24 Previous Rx's ?Medication ?Instructions ?Recorded Bedside commode #1 ea 04/18/22 walker with wheels #1 ea 08/19/22 flash glucose scanning reader #1 ea 12/02/22 ([facility] Frank 2 [place]) aspirin 81 mg chewable tablet 81 mg PO DAILY #90 tabs 09/10/23 acetaminophen 325 mg tablet 650 mg (2 x 325 mg) PO TID #90 tabs 12/21/23 recliner #1 ea 12/22/23 Hospital bed #1 ea 01/11/24 Toilet rails #1 ea 01/11/24 Wheelchair with cushion #1 ea 01/11/24 docusate sodium 100 mg capsule 100 mg PO BID PRN constipation #60 01/11/24 caps ferrous sulfate 325 mg (65 mg 325 mg PO DAILY #90 tabs 01/11/24 iron) tablet gabapentin 600 mg tablet 600 mg PO TID #90 tabs 01/11/24 metoprolol succinate 50 mg 50 mg PO DAILY #90 tabs 01/11/24 tablet,extended release 24 hr polyethylene glycol 3350 17 gram 17 g PO DAILY #30 ea 01/11/24 oral powder packet liners for incontinence #30 ea 01/25/24 pen needle, diabetic 31 gauge x #100 ea 02/13/2401/10 (BD Ultra-Fine Short Pen Needle) flash glucose sensor (FreeStyle #2 kits 03/30/24 Frank 2 Sensor kit) sertraline 100 mg tablet 100 mg PO BEDTIME #90 tabs 04/04/24 glucose 4 gram chewable tablet 16 g (4 x 4 gram) PO Q15M PRN 05/31/24 (Dex4 Glucose) hypoglycemia #100 tabs insulin glargine 100 unit/mL (3 34 unit (0.34 mL) subcut BEDTIME 05/31/24 mL) subcutaneous pen (Lantus #15 mL Solostar U-100 Insulin) bolus insulin pump, 200 unit 2 #8 ea 06/19/24 unit bolus insulin patch pump, 200 unit, disposable (CeQur Simplicity) diabetic supplies, miscellan. #1 ea 06/19/24 (CeQur Simplicity Track Laying Supervisor) insulin degludec 200 unit/mL (3 38 unit (0.19 mL) subcut DAILY 30 06/19/24 mL) subcutaneous pen (Tresiba days #6 mL FlexTouch U-200 insulin) insulin lispro 100 unit/mL See Rx Instructions subcut 06/19/24 subcutaneous solution USEASDIRECTD 30 days #20 mL melatonin 3 mg tablet 6 mg (2 x 3 mg) PO BEDTIME PRN 06/20/24 Insomnia #90 tabs insulin lispro 100 unit/mL See Rx Instructions subcut QIDACHS 06/26/24 subcutaneous pen (Humalog KwikPen #15 mL (U-100) Insulin) ondansetron 4 mg disintegrating 4 mg PO Q8H PRN nausea and 07/04/24 tablet vomiting #20 tabs oxycodone 5 mg tablet 5 mg PO Q6H PRN pain #12 tabs 07/04/24 morphine 15 mg immediate release 15 mg PO Q6H PRN severe pain 07/11/24 tablet (scale score 7-10) #12 tabs Allergies Allergy/AdvReac Type Severity Reaction Status Date / Time No Known Allergies Allergy Verified 07/11/24 12:31 Review of Systems Constitutional: Denies body ache(s), Denies chills, Denies fever(s) and Denies headache(s) Eyes: Denies blurry vision Denies vertigo, Denies dizziness and Denies headache(s) Cardiovascular: Denies chest pain Gastrointestinal: Reports abdominal pain, Reports nausea and Denies vomiting Musculoskeletal: Denies back pain Skin/Breast: Denies rash Denies vertigo, Denies dizziness and Denies headache(s) [facility] Past Medical History Medical History (Updated 07/11/24 @ 22:45 by Chad Moss) Hx of non-ST elevation myocardial infarction (NSTEMI) Major depression, recurrent Paroxysmal atrial fibrillation History of alcohol abuse Anemia Atrial fibrillation Essential hypertension PAD (peripheral artery disease) 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 Diabetes mellitus with retinopathy, with long-term current use of insulin Heartburn symptom Erectile dysfunction Dyslipidemia Amputation stump complication Hyperlipidemia Chronic pancreatitis Neuropathy Kidney calculus CAD (coronary artery disease) Arthritis Surgical History History of open heart surgery S/P angiogram of extremity (06/28/23) History of right below knee amputation Status post below-knee amputation S/P debridement Hx of lithotripsy Status post laparoscopic cholecystectomy Hx of heart artery stent Family History Family History Mother DC (myocardial infarction), Onset Age: 64 Diabetes mellitus HTN (hypertension) Maternal Grandmother Diabetes mellitus Social History Social History Household Members: Spouse Household Members Other:: and daughter Housing: Apartment Do you presently have visiting nurse or other home services: Yes Alcohol intake: former Comment: Bilateral BKA's. Patient Tobacco Use Status: Former Tobacco user Tobacco use type: Cigarette Cigarette Packs Per Day: 0.01 Cigarettes Per Day: 3 Years Smoked: 30 Smoked in Last 30 Days: No e-Cigarette/Vaping Use: Never Used Second Hand Smoke Exposure: No Use of substances other than those prescribed or required for medical reasons: No Substance Use Type: Marijuana Advance Directives: No Advance Directives Information Provided: Yes Advance Directives Date on File: 04/17/21 service: No Current occupational status: unemployed and disabled Cognitive needs: No Hearing needs: No Vision needs: Yes Physical Exam ED Vital Signs: Vital Signs - 24 hr 07/11/24 12:30 07/11/24 18:13 07/11/24 18:20 Temperature 98.8 F Pulse Rate 78 76 Respiratory Rate 20 17 17 Blood Pressure 137/73 105/44 L Pulse Oximetry 97 97 Oxygen Delivery Method Room Air Room Air 07/11/24 19:49 07/11/24 21:48 Temperature 98.0 F Pulse Rate 64 69 Respiratory Rate 16 15 Blood Pressure 122/70 123/62 Pulse Oximetry 97 95 Oxygen Delivery Method Room Air Room Air BMI result Body Mass Index 36.0 Const General: healthy appearing, no acute distress, alert and awake Nutritional Appearance: well nourished Orientation/consciousness: patient oriented x3 HENMT Head: Yes normocephalic and Yes atraumatic Eyes Eyelids: Yes eyelids normal Conjunctivae: conjunctivae normal Sclerae: sclerae normal Corneas: corneas normal Pupils: Equal, round and reactive pupils present EOM: EOMs intact bilaterally Neck Neck: Yes full ROM Resp Effort & Inspection: normal respiratory effort, able to speak in complete sentences and not labored Cardio Rate: regular rate Rhythm: regular rhythm GI Other: Patient has epigastric and right upper quadrant tenderness without guarding. Inspection: No distended Palpation (GI): Soft to palpation, not firm, Tenderness to palpation present (GI) in the epigastrum and in the RLQ, no guarding and not rigid Skin General skin exam: no rashes or lesions noted and elasticity normal Neuro General: patient oriented x3 Cranial nerves: Yes Equal, round and reactive pupils present and Yes Bilaterally intact EOM present Cognition (Neuro): normal cognition Extrem Other: Moving all extremities well without any obvious deformities Course Course Course Narrative: This is a Rapid Medical Exam performed in triage by Luann Correa PA-C. Full HPI, ROS and PE to be performed by primary ED provider. 59-year-old male past medical history significant for obesity, paroxysmal atrial fibrillation, diabetes, GERD, coronary artery disease presents for evaluation of abdominal pain that radiates to the back, was seen in our ED Dx w/pancreatitis & possible passed stone and states pain briely went away & came back 2 days ago. +nausea. Denies vomiting, fever, urinary sx PE: Abdomen is soft with epigastric/RUQ tenderness Plan: labs, UA Reevaluation(s) Reevaluation #1: The patient's CT scan does not show any acute findings. Last week he did have some peripancreatic haziness suggestive of pancreatitis which does not appear to be present today. His lipase has also improved and is just barely above normal. He does not meet criteria for acute pancreatitis. The patient did request admission and this was considered as it is a repeat visit. I discussed with Dr. Andujar who feels the patient does not meet criteria for admission due to the above. The patient is not vomiting, he is able to tolerate oral intake. The patient will be discharged at this time Time: 22:43 Medical Decision Making Medical Decision Making [facility] Narrative: 59-year-old male with past medical history as documented above presents for evaluation of abdominal pain. I reviewed his chart from last week when he was here for pancreatitis. He had a CT scan of the that time which showed mild peripancreatic inflammation. His lipase was elevated to 123. Today his lipase is still elevated but 85, improved from last week. He is not at this moment I do not see any indication to repeat image of the patient. I have a low suspicion for obstruction as the patient is continuing to pass gas have bowel movements. We will treat with IV fluids and analgesia and re-evaluate Differential Diagnosis Differential Diagnoses: The differential diagnosis associated with the presentation includes Acute pancreatitis Gastroenteritis Peptic ulcer disease Abdominal pain Ileus Bowel obstruction Lab Data [facility] Lab Attestation statement: I reviewed the patient's lab results. No leukocytosis or anemia. Normal platelet count. No significant electrolyte abnormalities. The patient is a diabetic with a glucose of 318. He has no increase in his anion gap and his bicarbonate is within normal limits at 24 07/11/24 13:33 07/11/24 13:33 Labs: Lab Results 07/11/24 07/11/24 Range/Units 13:33 19:46 WBC 10.0 (4.8-10.8) X10*3/uL RBC 5.39 (4.60-5.80) X10*6/uL Hgb 14.8 (14.0-18.0) g/dl Hct 46.1 (42.0-52.0) % MCV 85.5 (80.0-98.0) fL MCH 27.5 (27.0-33.0) pg MCHC 32.1 (31.0-36.0) g/dl RDW 16.8 H (11.0-16.0) % Plt Count 205 (160-400) X10*3/uL MPV 10.3 (9.4-12.4) fL Immature Gran % (Auto) 1.2 H (0.0-0.4) % Neut % (Auto) 68.7 (45-73) % Lymph % (Auto) 16.9 L (20-40) % [place] % (Auto) 8.3 (2-11) % Eos % (Auto) 4.0 (0-4) % Baso % (Auto) 0.9 (0-2) % Lymph # (Auto) 1.7 (1.2-4.9) X10*3/uL Randolph # (Auto) 0.8 (0.1-1.2) X10*3/uL Eos # (Auto) 0.4 (0.0-0.4) X10*3/uL Baso # (Auto) 0.1 (0.0-0.2) X10*3/uL Abs Immat Gran (auto) 0.12 H (0.00-0.03) X10*3/uL Absolute Neuts (auto) 6.9 (2.0-8.3) x10*3/uL Absolute Nucleated RBC 0.000 (0.0-0.012) X10*3/uL Nucleated RBC % (auto) 0.0 (0.0-0.2) /100WBC PT 11.4 (10.9-12.4) SEC INR 1.0 (0.9-1.1) Sodium 135 (135-145) mmol/L Potassium 4.7 (3.3-5.1) mmol/L Chloride 105 (96-108) mmol/L Carbon Dioxide 24 (22-29) mmol/L Anion Gap 11 L (12-20) BUN 19 H (9-16) mg/dL Creatinine 0.96 (0.5-1.4) mg/dL Estim Creat Clear Calc 96.5 Estimated GFR > 60 Random Glucose 318 H (60-115) mg/dL Calcium 9.2 (8.4-10.2) mg/dL Magnesium 2.0 (1.6-2.6) mg/dL Total Bilirubin 0.3 (0.0-1.0) mg/dL Direct Bilirubin 0.1 (0.0-0.5) mg/dL AST 50 H (5-37) U/L ALT 61 H (0-40) U/L Alkaline Phosphatase 81 (39-117) U/L Total Protein 7.9 (6.5-8.0) g/dL Albumin 3.9 (3.5-5.0) g/dL Lipase 85 H (8-78) U/L Urine Color Yellow Urine Appearance Clear Urine pH 5.0 (5.0-9.0) Ur Specific [place] >= 1.030 H (1.005-1.025) Urine Protein Negative (Neg-Trace) mg/dL Urine Glucose (UA) >=1000 H (Negative) mg/dL Urine Ketones Negative (Negative) mg/dL Urine Blood Negative (Negative) Urine Nitrite Negative (Negative) Ur Leukocyte Esterase Negative (Negative) Urine RBC 0-2 (0-2) /HPF Urine WBC 0-5 (0-5) /HPF Ur Squamous Epith Cells 0-2 (0-2) /HPF Urine Bacteria None Seen (None Seen) Hyaline Casts 0-2 (0-2) /LPF Medications Administered Discontinued Medications Generic Name Dose Route Start Last Admin Trade Name Freq PRN Reason Stop Dose Admin Hydromorphone HCl 1 mg 07/11/24 19:29 07/11/24 19:47 Hydromorphone Hcl 1 Mg/Ml Syringe IVPUSH 07/11/24 19:30 1 mg ONCE ONE Administration Protocol Sodium Chloride 1,000 mls @ 999 mls/hr 07/11/24 18:00 07/11/24 19:59 Ns IV 07/11/24 19:00 Infused .Q1H1M SHELLY Infusion Iohexol 85 ml 07/11/24 21:39 07/11/24 21:39 Iohexol 350 Mg/Ml 100 Ml Infus..Btl IV 07/11/24 21:40 85 ml ONCE ONE Administration Morphine Sulfate 4 mg 07/11/24 17:56 07/11/24 18:20 Morphine Sulfate 4 Mg/Ml Cartridge IVPUSH 07/11/24 17:57 4 mg ONCE ONE Administration Protocol Ondansetron HCl 4 mg 07/11/24 17:56 07/11/24 18:20 Ondansetron Hcl 4 Mg/2 Ml Vial IVPUSH 07/11/24 17:57 4 mg ONCE ONE Administration Discharge Plan Discharge Clinical Impression: Abdominal pain Patient Disposition: Home, Self-Care Instructions: Abdominal Pain (ED) Additional Instructions: Your blood work today was better than it was last week. Your CT scan no longer shows findings consistent with pancreatitis I do recommend continuing with a liquid diet for the next 2 days. You may use morphine as needed for severe breakthrough pain. This may make you drowsy, do not drink alcohol or drive after taking it. Follow-up with GI Return for new or worsening symptoms Prescriptions: New morphine 15 mg tablet 15 mg PO Q6H PRN (Reason: severe pain (scale score 7-10)) Qty: 12 0RF Rx Instructions: Partial Fill upon patient request. No Action (DME) Bedside commode See Rx Instructions .Route .MEDSUPPLY Qty: 1 0RF Rx Instructions: As directed (DME) walker with wheels See Rx Instructions .Route .MEDSUPPLY Qty: 1 0RF Rx Instructions: As directed (DME) FreeStyle Frank 2 [place] Misc See Rx Instructions .Route Qty: 1 0RF Rx Instructions: As directed aspirin 81 mg tablet,chewable 81 mg PO DAILY Qty: 90 1RF (DME) recliner See Rx Instructions .Route .MEDSUPPLY Qty: 1 0RF Rx Instructions: As directed (DME) liners for incontinence See Rx Instructions .Route .MEDSUPPLY Qty: 30 5RF Rx Instructions: Use As directed (DME) pen needle, diabetic [BD Ultra-Fine Short Pen Needle] 31 gauge x 5/16 needle See Rx Instructions .ROUTE .COMPLEX Qty: 100 1RF Dose Instruction: USE MARÍA LO INDICADO BENNETT VECES AL LIZZIE ANTES DE LAS COMIDAS Rx Instructions: USE MARÍA LO INDICADO BENNETT VECES AL LIZZIE ANTES DE LAS COMIDAS (DME) FreeStyle Frank 2 Sensor Kit See Rx Instructions .ROUTE .COMPLEX Qty: 2 8RF Dose Instruction: DIRECTED CHANGE EVERY 14 DAYS Rx Instructions: DIRECTED CHANGE EVERY 14 DAYS sertraline 100 mg tablet 100 mg PO BEDTIME Qty: 90 1RF melatonin 3 mg tablet 6 mg PO BEDTIME PRN (Reason: Insomnia) Qty: 90 1RF insulin lispro [Humalog KwikPen Insulin] 100 unit/mL insulin pen See Rx Instructions subcut QIDACHS Qty: 15 6RF Rx Instructions: 10-12 units of Humalog prior to breakfast, 10-12 units before lunch, 8-10 units prior to dinner and 2-4 units prior to bedtime snack. subcutaneously 4 times a day before meal/bed; famotidine 40 mg tablet 40 mg PO DAILY PRN (Reason: heartburn) amiodarone 200 mg tablet 200 mg PO BID pantoprazole 40 mg tablet,delayed release (DR/EC) 40 mg PO DAILY@0630 acetaminophen 325 mg Tablet 650 mg PO TID Qty: 90 0RF oxycodone 5 mg tablet 5 mg PO Q6H PRN (Reason: pain) Qty: 12 0RF Rx Instructions: Partial Fill upon patient request. ondansetron 4 mg tablet,disintegrating 4 mg PO Q8H PRN (Reason: nausea and vomiting) Qty: 20 0RF clopidogrel 75 mg tablet 75 mg PO DAILY dapagliflozin propanediol [Farxiga] 10 mg tablet 10 mg PO DAILY losartan 25 mg tablet 25 mg PO DAILY spironolactone 25 mg tablet 25 mg PO DAILY (DME) Wheelchair with cushion See Rx Instructions .Route .MEDSUPPLY Qty: 1 0RF Rx Instructions: As directed (DME) Toilet rails See Rx Instructions .Route .MEDSUPPLY Qty: 1 0RF Rx Instructions: As directed (DME) Hospital bed See Rx Instructions .Route .MEDSUPPLY Qty: 1 0RF Rx Instructions: As directed gabapentin 600 mg tablet 600 mg PO TID Qty: 90 4RF metoprolol succinate 50 mg tablet extended release 24 hr 50 mg PO DAILY Qty: 90 1RF polyethylene glycol 3350 17 gram powder in packet 17 g PO DAILY Qty: 30 0RF docusate sodium 100 mg capsule 100 mg PO BID PRN (Reason: constipation) Qty: 60 5RF ferrous sulfate 325 mg (65 mg iron) tablet 325 mg PO DAILY Qty: 90 2RF (DME) blood-glucose meter [FreeStyle Lite Meter] Kit See Rx Instructions .Route Rx Instructions: As directed (DME) FreeStyle Lite Strips Strip See Rx Instructions .Route Rx Instructions: As directed atorvastatin 80 mg tablet 80 mg PO BEDTIME insulin degludec [Tresiba FlexTouch U-200] 200 unit/mL (3 mL) insulin pen 38 unit subcut DAILY 30 Days Qty: 6 11RF insulin lispro 100 unit/mL solution See Rx Instructions subcut USEASDIRECTD 30 Days Qty: 20 6RF Rx Instructions: 10-14 units with meals, 2-4 with snack for use with CeQur. Each click equals 2 units subcutaneously use as directed; (DME) CeQur Simplicity 2 unit device See Rx Instructions .ROUTE .MEDSUPPLY Qty: 8 6RF Rx Instructions: As directed 4 day insulin patch (DME) CeQur Simplicity Track Laying Supervisor Misc See Rx Instructions .ROUTE .MEDSUPPLY Qty: 1 1RF Rx Instructions: As directed for use with CeQur insulin patch insulin glargine [Lantus Solostar U-100 Insulin] 100 unit/mL (3 mL) insulin pen 34 unit subcut BEDTIME Qty: 15 3RF glucose [Dex4 Glucose] 4 gram tablet,chewable 16 g PO Q15M PRN (Reason: hypoglycemia) Qty: 100 0RF Rx Instructions: until symptoms of low blood sugar are controlled Referrals: Jaleesa May MD [Physician] - (abdominal pain) Print Language: Icelandic
--- NOTE | 2024-07-11 12:32 | ECG_ITS ---
Test Reason : epigastric abd pain Blood Pressure : / mmHG Vent. Rate : 079 BPM Atrial Rate : 079 BPM P-R Int : 176 ms QRS Dur : 140 ms QT Int : 424 ms P-R-T Axes : 033 -66 091 degrees QTc Int : 486 ms Normal sinus rhythm Right bundle branch block Left anterior fascicular block Bifascicular block Left ventricular hypertrophy with repolarization abnormality ( R in aVL ) Abnormal ECG When compared with ECG of 04-JUL-2024 13:44, No significant change was found Referred By: Luann Correa Electronically Signed By:Ashutosh Conner
[2024-07-11 13:39] LABS: MANUAL DIFF FLAG NO
[2024-07-11 13:48] LABS: Basophils Absolute Auto 0.1 X10*3/uL (0.0-0.2); Basophils Percent Auto 0.9 % (0-2); Eosinophils Absolute Auto 0.4 X10*3/uL (0.0-0.4); Hematocrit 46.1 % (42.0-52.0); Hemoglobin 14.8 g/dl (14.0-18.0); Imm Gran Abs Auto 0.12 X10*3/uL (0.00-0.03); Imm Gran Pct Auto 1.2 % (0.0-0.4); Lymphocytes Absolute Auto 1.7 X10*3/uL (1.2-4.9); Lymphocytes Percent Auto 16.9 % (20-40); Mean Corpuscular HGB Conc 32.1 g/dl (31.0-36.0); Mean Corpuscular Hemoglobin 27.5 pg (27.0-33.0); Mean Corpuscular Volume 85.5 fL (80.0-98.0); Mean Platelet Volume 10.3 fL (9.4-12.4); Monocytes Absolute Auto 0.8 X10*3/uL (0.1-1.2); Monocytes Percent Auto 8.3 % (2-11); Neutrophils Absolute Auto 6.9 x10*3/uL (2.0-8.3); Neutrophils Percent Auto 68.7 % (45-73); Platelet Count 205 X10*3/uL (160-400); Red Blood Count 5.39 X10*6/uL (4.60-5.80); Red Cell Distribution Width 16.8 % (11.0-16.0)
[2024-07-11 13:55] LABS: Alanine Aminotransferase 61 U/L (0-40); Albumin Level 3.9 g/dL (3.5-5.0); Alkaline Phosphatase 81 U/L (39-117); Anion Gap 11 (12-20); Aspartate Amino Transferase 50 U/L (5-37); Bilirubin Direct 0.1 mg/dL (0.0-0.5); Bilirubin Total 0.3 mg/dL (0.0-1.0); Blood Urea Nitrogen 19 mg/dL (9-16); Calcium 9.2 mg/dL (8.4-10.2); Carbon Dioxide 24 mmol/L (22-29); Chloride 105 mmol/L (96-108); Creatinine Clr Calc Pharmacy 96.5; Estimated Glomerular Filt Rate > 60; Glucose Random 318 mg/dL (60-115); Lipase 85 U/L (8-78); Potassium 4.7 mmol/L (3.3-5.1); Sodium 135 mmol/L (135-145); Total Protein 7.9 g/dL (6.5-8.0)
[2024-07-11 14:12] LABS: Prothrombin Time 11.4 SEC (10.9-12.4)
[2024-07-11] MEDS: Morphine Sulfate 4 MG/ML CARTRIDGE IVPUSH (18:20)
[2024-07-11] MEDS: ondansetron HCL 4 MG/2 ML VIAL IVPUSH (18:20)
[2024-07-11] MEDS: 0.9 % Sodium Chloride 1,000 ML 999 ML IV (18:22)
--- NOTE | 2024-07-11 18:29 | PC.NURSE ---
Pt presents to ED from home, reports RUQ pain and nausea for past few days worsening. Has hx of pancreatitis and reports it feels like that. Denies fevers, diarrhea, cough. No alcohol or drug use. Alert and oriented, breathing even and unlabored, skin warm and dry. IV placed and pt medicated per OCT.
--- NOTE | 2024-07-11 19:26 | MHC.EDTECH ---
pt aware that we need urine sample
[2024-07-11] MEDS: HYDROmorphone HCl 1 MG/ML SYRINGE IVPUSH (19:47)
[2024-07-11 19:52] LABS: Appearance Urine Clear; Color Urine Yellow; Glucose Urine UA >=1000 mg/dL (Negative); Leukocyte Esterase Urine Negative (Negative); Nitrite Urine Negative (Negative); Specific Gravity - Urine >= 1.030 (1.005-1.025); UMIC TRIGGER UACC YES; Urine Blood Negative (Negative); Urine Ketones Negative (Negative); Urine Protein Negative (Neg-Trace)
[2024-07-11 19:55] LABS: Bacteria Urine None Seen (None Seen); Hyaline Casts Urine 0-2 /LPF (0-2); RBC Urine 0-2 /HPF (0-2); Squamous Epithelial Cell Urine 0-2 /HPF (0-2); WBC Urine 0-5 /HPF (0-5)
[2024-07-11] MEDS: iohexoL 350 MG/ML 100 ML INFUS..BTL 85 ML IV (21:39)
== END 2024-07-11 23:16 | disposition home or self-care (01) ==
PROVIDERS: Physician Assistant; Emergency Provider Emergency Medicine; PCP Internal Medicine
DX: R10.2 Pelvic and perineal pain (principal); I25.10 Atherosclerotic heart disease of native coronary artery without angina pectoris; R11.2 Nausea with vomiting, unspecified; Z79.899 Other long term (current) drug therapy
CPT/HCPCS: 36415; 74177; 76705; 80048; 80076; 81001; 83690; 83735; 85025; 85610; 93005; 96361; 96374; 96375; 99284; 99285; J1171; J2270; J2405; Q9967

== ENCOUNTER → 2024-07-11 12:32 | Outpatient (BNV) | payer MEDICARE, SELFPAY | PROVIDERS: Emergency Provider Emergency Medicine; PCP Internal Medicine; Visit Provider Internal Medicine Cardiovascular Disease | DX: R94.31 Abnormal electrocardiogram [ECG] [EKG] (principal) | CPT/HCPCS: 93010 ==

== ENCOUNTER → 2024-07-11 12:32 | Outpatient (BNV) | payer MEDICARE, SELFPAY | PROVIDERS: PCP Internal Medicine; Visit Provider Radiology Diagnostic Radiology | DX: R10.11 Right upper quadrant pain (principal) | CPT/HCPCS: 76705 ==

== ENCOUNTER 2024-08-10 16:10 | Emergency (ER) | payer MEDICARE, SELFPAY ==
--- NOTE | ~2024-08-10 | CT_ITS ---
EXAMINATION: CT ABDOMEN AND PELVIS WITHOUT CONTRAST CLINICAL INFORMATION: Left flank pain. History of kidney stones pancreatitis. COMPARISON: Multiple prior examinations most recent CT 07/11/2024 and 07/04/2024 TECHNIQUE: Multidetector volumetric imaging was performed from the superior aspect of the liver through the pubic symphysis. Sagittal and coronal reformatted images were obtained on the technologist's workstation. This CT examination was performed using dose optimization techniques as appropriate, variously including the following: *Automated exposure control *Adjustment of mA and/or kV according to patient size (this includes techniques or standardized protocols for targeted exams where dose is matched to indication/reason for exam; i.e. extremities or head) *Use of iterative reconstruction technique DLP: 730 mGy-cm FINDINGS: LUNG BASES: The visualized lung bases are unremarkable. LIVER, GALLBLADDER, AND BILIARY TREE: The liver is normal in size, shape, and attenuation. No focal hepatic lesion or biliary ductal dilatation is present. Status post cholecystectomy PANCREAS: Unremarkable. SPLEEN: 2 tiny calcifications unchanged ADRENAL GLANDS: Unremarkable. KIDNEYS AND URETERS: There is a persistent nonobstructing 4 mm calcification in the lower pole of the left kidney no additional renal calculi. No perinephric stranding. No hydronephrosis or hydroureter There is a tiny 1 mm calcification just medial to the insertion of the left ureter unchanged compared with the prior examinations . This is likely within the bladder wall and unchanged. Less likely this could reflect a persistent tiny bladder calculus Simple cyst left kidney unchanged. No follow-up necessary. BLADDER: As above. Otherwise unremarkable. GASTROINTESTINAL TRACT: Appendix normal. Large bowel: Scattered diverticulosis of the sigmoid colon without diverticulitis. ABDOMINAL WALL: Small right greater than left inguinal hernias LYMPH NODES: Normal. VASCULAR: Moderate arterial calcification throughout PELVIC VISCERA: Unremarkable. OSSEOUS STRUCTURES: Bilateral pars defects L5 unchanged. CT/CT abdomen pelvis wo IV con IMPRESSION: 1. No acute abnormality. 2. Stable nonobstructing left renal calculus. 3. Stable tiny calcification in the bladder likely within the bladder wall and unchanged. Less likely persistent bladder calculus 4. Diverticulosis without diverticulitis. 5. Small bilateral inguinal hernias. 6. Bilateral pars defects L5 unchanged. 7. Moderate arterial calcification. 8. Status post cholecystectomy. 9. 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 Fleischner guidelines were followed. Electronically signed by: Dylan Montana MD 08/10/2024 07:01 PM [facility]ARRIDO
[2024-08-10 16:29] VITALS: BP 141/66; PULSE 84; RESP 20; TEMP 36.1; O2SAT 98; BMI 36.0
--- NOTE | 2024-08-10 16:29 | ED.GENADULT ---
HPI - General Adult General Chief complaint: Abdominal Pain Stated complaint: kidney pain/pancreatitis? Time Seen by Provider: 08/10/24 18:51 Source: patient Limitations: no limitations History of Present Illness ED Provider: Lesley zhang PA-C HPI narrative: 59-year-old male with a history of kidney stones, hypertension, hyperlipidemia, DM, paroxysmal AFib, peripheral arterial disease, status post left BKA, presents with right flank pain x3 days. Pain is now migrating across upper abdomen, unable to describe the nature of his discomfort. Associated nausea vomiting. Associated dysuria. Denies obvious hematuria, the patient has not had any fevers. Related Data Home Medications ?Medication ?Instructions ?Recorded ?Confirmed blood sugar diagnostic (FreeStyle 12/01/22 05/31/24 Lite Strips) blood-glucose meter (FreeStyle 12/01/22 05/31/24 Lite Meter kit) atorvastatin 80 mg tablet 80 mg PO BEDTIME 06/20/23 05/31/24 famotidine 40 mg tablet 40 mg PO DAILY PRN heartburn 09/11/23 05/31/24 amiodarone 200 mg tablet 200 mg PO BID 10/18/23 05/31/24 pantoprazole 40 mg tablet,delayed 40 mg PO DAILY@0630 10/18/23 05/31/24 release clopidogrel 75 mg tablet 75 mg PO DAILY 11/18/23 05/31/24 dapagliflozin propanediol 10 mg 10 mg PO DAILY 11/18/23 05/31/24 tablet (Farxiga) losartan 25 mg tablet 25 mg PO DAILY 11/18/23 05/31/24 spironolactone 25 mg tablet 25 mg PO DAILY 11/18/23 05/31/24 Previous Rx's ?Medication ?Instructions ?Recorded Bedside commode #1 ea 04/18/22 walker with wheels #1 ea 08/19/22 flash glucose scanning reader #1 ea 12/02/22 (FreeStyle Frank 2 Kintyre) aspirin 81 mg chewable tablet 81 mg PO DAILY #90 tabs 09/10/23 acetaminophen 325 mg tablet 650 mg (2 x 325 mg) PO TID #90 tabs 12/21/23 recliner #1 ea 12/22/23 Hospital bed #1 ea 01/11/24 Toilet rails #1 ea 01/11/24 docusate sodium 100 mg capsule 100 mg PO BID PRN constipation #60 01/11/24 caps ferrous sulfate 325 mg (65 mg 325 mg PO DAILY #90 tabs 01/11/24 iron) tablet gabapentin 600 mg tablet 600 mg PO TID #90 tabs 01/11/24 metoprolol succinate 50 mg 50 mg PO DAILY #90 tabs 01/11/24 tablet,extended release 24 hr polyethylene glycol 3350 17 gram 17 g PO DAILY #30 ea 01/11/24 oral powder packet liners for incontinence #30 ea 01/25/24 pen needle, diabetic 31 gauge x #100 ea 02/13/24/ (BD Ultra-Fine Short Pen Needle) flash glucose sensor (FreeStyle #2 kits 03/30/24 Frank 2 Sensor kit) sertraline 100 mg tablet 100 mg PO BEDTIME #90 tabs 04/04/24 glucose 4 gram chewable tablet 16 g (4 x 4 gram) PO Q15M PRN 05/31/24 (Dex4 Glucose) hypoglycemia #100 tabs insulin glargine 100 unit/mL (3 34 unit (0.34 mL) subcut BEDTIME 05/31/24 mL) subcutaneous pen (Lantus #15 mL Solostar U-100 Insulin) bolus insulin pump, 200 unit 2 #8 ea 06/19/24 unit bolus insulin patch pump, 200 unit, disposable (CeQur Simplicity) diabetic supplies, [place]. #1 ea 06/19/24 (CeQur Simplicity Front Desk Person) insulin degludec 200 unit/mL (3 38 unit (0.19 mL) subcut DAILY 30 06/19/24 mL) subcutaneous pen (Tresiba days #6 mL FlexTouch U-200 insulin) insulin lispro 100 unit/mL See Rx Instructions subcut 06/19/24 subcutaneous solution USEASDIRECTD 30 days #20 mL melatonin 3 mg tablet 6 mg (2 x 3 mg) PO BEDTIME PRN 06/20/24 Insomnia #90 tabs insulin lispro 100 unit/mL See Rx Instructions subcut QIDACHS 06/26/24 subcutaneous pen (Humalog KwikPen #15 mL (U-100) Insulin) ondansetron 4 mg disintegrating 4 mg PO Q8H PRN nausea and 07/04/24 tablet vomiting #20 tabs oxycodone 5 mg tablet 5 mg PO Q6H PRN pain #12 tabs 07/04/24 morphine 15 mg immediate release 15 mg PO Q6H PRN severe pain 07/11/24 tablet (scale score 7-10) #12 tabs Disposable bed pads #100 ea 07/29/24 Electric hospital bed head & foot #1 ea 07/29/24 Male day & night urinal #1 ea 07/29/24 Raised toilet seat #1 ea 07/29/24 Wheelchair cushion #1 ea 07/29/24 electric recliner head and foot #1 ea 07/29/24 facial-body wipes #4 ea 07/29/24 miscellaneous medical supply #1 ea 07/29/24 miscellaneous medical supply #1 ea 07/29/24 Wheelchair with cushion #1 ea 08/06/24 cephalexin 500 mg capsule 500 mg PO BID #14 caps 08/10/24 Allergies Allergy/AdvReac Type Severity Reaction Status Date / Time No Known Allergies Allergy Verified 08/10/24 16:31 Review of Systems Review of Systems: Yes all other systems are reviewed and are negative Constitutional: Constitutional: Denies fatigue and Denies fever(s) Cardiovascular: Cardiovascular: Denies chest pain and Denies dyspnea Respiratory: Respiratory: Denies dyspnea Gastrointestinal: Gastrointestinal: Reports abdominal pain, Denies diarrhea, Reports nausea and Reports vomiting Genitourinary: Genitourinary: Denies hematuria and Reports dysuria Endocrine: Endocrine: Denies fatigue [facility] Past Medical History Attestation statement: The following information was validated with the patient. Medical History (Updated 08/10/24 @ 22:59 by VINCE Knox) Hx of non-ST elevation myocardial infarction (NSTEMI) Major depression, recurrent Paroxysmal atrial fibrillation History of alcohol abuse Anemia Atrial fibrillation Essential hypertension PAD (peripheral artery disease) 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 Diabetes mellitus with retinopathy, with long-term current use of insulin Heartburn symptom Erectile dysfunction Dyslipidemia Amputation stump complication Hyperlipidemia Chronic pancreatitis Neuropathy Kidney calculus CAD (coronary artery disease) Arthritis Surgical History History of open heart surgery S/P angiogram of extremity (06/28/23) History of right below knee amputation Status post below-knee amputation S/P debridement Hx of lithotripsy Status post laparoscopic cholecystectomy Hx of heart artery stent Family History Family History Mother [place] (myocardial infarction), Onset Age: 64 Diabetes mellitus HTN (hypertension) Maternal Grandmother Diabetes mellitus Social History Social History Household Members: Spouse Household Members Other:: and daughter Housing: Apartment Do you presently have visiting nurse or other home services: Yes Alcohol intake: former Comment: Bilateral BKA's. Patient Tobacco Use Status: Former Tobacco user Tobacco use type: Cigarette Cigarette Packs Per Day: 0.01 Cigarettes Per Day: 3 Years Smoked: 30 e-Cigarette/Vaping Use: Never Used Second Hand Smoke Exposure: No Substance Use Type: Marijuana Advance Directives: No Advance Directives Information Provided: No Advance Directives Date on File: 04/17/21 service: No Current occupational status: unemployed and disabled Cognitive needs: No Hearing needs: No Vision needs: Yes Physical Exam ED Vital Signs: Vital Signs - 24 hr 08/10/24 16:29 08/10/24 19:24 08/10/24 22:06 Temperature 96.9 F 97.7 F 97.9 F Pulse Rate 84 72 64 Respiratory Rate 20 16 16 Blood Pressure 141/66 H 116/68 107/57 L Pulse Oximetry 98 98 97 Oxygen Delivery Method Room Air Room Air Room Air BMI result Body Mass Index 36.0 Const Other: Alert, appears older than stated age Orientation/consciousness: patient oriented x3 Resp Other: Nonlabored respiration Cardio Other: Normal peripheral perfusion GI Other: Abdomen is soft, nondistended generalized tenderness to palpation across the entire upper abdomen, no guarding Skin Other: Warm dry no rash Neuro General: patient oriented x3, no focal motor deficits and CN's II-XI intact bilaterally Psych Other: Calm cooperative Course Course Course Narrative: This is an RME: Additional HPI, ROS, PE not included below will be deferred to primary provider. RME assessment and note performed by: Mariposa Shah PA-C This is a 20-tpvu-ilo-male, with a hx of NSTEMI, p. afib, htn , PAD, DM , HLD, CAD, and kidney stones, who presents to the ER with complaints of left flank pain and abdominal pain x 3 days. Reports dysuria, and back pain. Reports vomiting, no fevers. Plan: Labs, UA, CT abd/pelvis, further ER eval needed. Medications Administered Discontinued Medications Generic Name Dose Route Start Last Admin Trade Name Alyssa PRN Reason Stop Dose Admin Cephalexin HCl 500 mg 08/10/24 22:02 08/10/24 22:38 Cephalexin 500 Mg Capsule PO 08/10/24 22:03 500 mg ONCE ONE Administration Sodium Chloride 1,000 mls @ 999 mls/hr 08/10/24 19:00 08/10/24 22:39 Ns IV 08/10/24 20:00 Infused .Q1H1M SHELLY Infusion Acetaminophen 1,000 mg in 100 mls @ 400 mls/hr 08/10/24 20:44 08/10/24 22:39 Ofirmev IV 08/10/24 20:58 Infused ONCE ONE Infusion Ketorolac Tromethamine 15 mg 08/10/24 18:51 08/10/24 19:15 Ketorolac Tromethamine 15 Mg/Ml Vial IVPUSH 08/10/24 18:52 15 mg ONCE ONE Administration Morphine Sulfate 4 mg 08/10/24 18:51 08/10/24 19:16 Morphine Sulfate 4 Mg/Ml Cartridge IVPUSH 08/10/24 18:52 4 mg ONCE ONE Administration Protocol Ondansetron HCl 4 mg 08/10/24 18:51 08/10/24 19:15 Ondansetron Hcl 4 Mg/2 Ml Vial IVPUSH 08/10/24 18:52 4 mg ONCE ONE Administration Medical Decision Making Medical Decision Making MDM Narrative: 59-year-old male with a history of kidney stones, hypertension, hyperlipidemia, DM, paroxysmal AFib, peripheral arterial disease, status post left BKA, presents with right flank pain x3 days. Pain is now migrating across upper abdomen, unable to describe the nature of his discomfort. Associated nausea vomiting. Associated dysuria. Denies obvious hematuria, the patient has not had any fevers. Problem: Vascular disease, diabetes History: Per patient I have considered the following differential diagnoses: Renal colic, biliary colic, cholecystitis, gastritis, pancreatitis, pyelonephritis, Plan: Given distribution of discomfort in nature of symptoms, I am considering potential renal colic. We will be screening basic labs obtaining a urine sample and a CT scan. Giving IV fluid Toradol morphine and Zofran. Also considered underlying biliary versus gastric versus pancreatic etiology as cause for the patient's symptoms. He is having pain across the entire upper abdomen. LFTs and lipase we will be obtained. I have independently reviewed the following tests: Labs: No leukocytosis, not anemic, no electrolyte abnormality, lipase marginally elevated, questionable urine infection will treat with cephalexin CT abdomen and pelvis: CT/CT abdomen pelvis wo IV con IMPRESSION: 1. No acute abnormality. 2. Stable nonobstructing left renal calculus. 3. Stable tiny calcification in the bladder likely within the bladder wall and unchanged. Less likely persistent bladder calculus 4. Diverticulosis without diverticulitis. 5. Small bilateral inguinal hernias. 6. Bilateral pars defects L5 unchanged. 7. Moderate arterial calcification. 8. Status post cholecystectomy. 9. 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 Lab Data 08/10/24 16:50 08/10/24 16:50 Labs: Lab Results 08/10/24 08/10/24 Range/Units 16:50 19:50 WBC 9.2 (4.8-10.8) X10*3/uL RBC 5.15 (4.60-5.80) X10*6/uL Hgb 14.5 (14.0-18.0) g/dl Hct 43.1 (42.0-52.0) % MCV 83.7 (80.0-98.0) fL MCH 28.2 (27.0-33.0) pg MCHC 33.6 (31.0-36.0) g/dl RDW 14.8 (11.0-16.0) % Plt Count 207 (160-400) X10*3/uL MPV 10.3 (9.4-12.4) fL Immature Gran % (Auto) 0.9 H (0.0-0.4) % Neut % (Auto) 66.6 (45-73) % Lymph % (Auto) 19.2 L (20-40) % [place] % (Auto) 7.4 (2-11) % Eos % (Auto) 5.0 H (0-4) % Baso % (Auto) 0.9 (0-2) % Lymph # (Auto) 1.8 (1.2-4.9) X10*3/uL [place] # (Auto) 0.7 (0.1-1.2) X10*3/uL Eos # (Auto) 0.5 H (0.0-0.4) X10*3/uL Baso # (Auto) 0.1 (0.0-0.2) X10*3/uL Abs Immat Gran (auto) 0.08 H (0.00-0.03) X10*3/uL Absolute Neuts (auto) 6.1 (2.0-8.3) x10*3/uL Absolute Nucleated RBC 0.000 (0.0-0.012) X10*3/uL Nucleated RBC % (auto) 0.0 (0.0-0.2) /100WBC Sodium 134 L (135-145) mmol/L Potassium 4.6 (3.3-5.1) mmol/L Chloride 103 (96-108) mmol/L Carbon Dioxide 20 L (22-29) mmol/L Anion Gap 16 (12-20) BUN 20 H (9-16) mg/dL Creatinine 1.11 (0.5-1.4) mg/dL Estim Creat Clear Calc 83.5 Estimated GFR > 60 Random Glucose 365 H* (60-115) mg/dL Calcium 9.5 (8.4-10.2) mg/dL Magnesium 1.9 (1.6-2.6) mg/dL Total Bilirubin 0.3 (0.0-1.0) mg/dL Direct Bilirubin 0.1 (0.0-0.5) mg/dL AST 35 (5-37) U/L ALT 32 (0-40) U/L Alkaline Phosphatase 89 (39-117) U/L Total Protein 7.9 (6.5-8.0) g/dL Albumin 3.9 (3.5-5.0) g/dL Lipase 135 H (8-78) U/L Urine Color Yellow Urine Appearance Cloudy Urine pH 5.5 (5.0-9.0) Ur Specific [place] >= 1.030 H (1.005-1.025) Urine Protein Negative (Neg-Trace) mg/dL Urine Glucose (UA) >=1000 H (Negative) mg/dL Urine Ketones Negative (Negative) mg/dL Urine Blood Moderate (2+) H (Negative) Urine Nitrite Negative (Negative) Ur Leukocyte Esterase Moderate (2+) H (Negative) Urine RBC 11-20 H (0-2) /HPF Urine WBC >50 H (0-5) /HPF Ur Squamous Epith Cells 3-5 (0-2) /HPF Urine Bacteria None Seen (None Seen) Hyaline Casts 3-5 (0-2) /LPF Discharge Plan Discharge Clinical Impression: Urinary tract infection, Hematuria, Acute abdominal pain in right flank Patient Disposition: Home, Self-Care Instructions: Urinary Tract Infection in Men (ED) Additional Instructions: You were found to have a urinary tract infection, take the cephalexin as directed. The rest of your labs were unremarkable. There were no acute findings on the CT scan. Follow up with your primary care provider as needed Prescriptions: New cephalexin 500 mg capsule 500 mg PO BID Qty: 14 0RF No Action (DME) Bedside commode See Rx Instructions .Route .MEDSUPPLY Qty: 1 0RF Rx Instructions: As directed (DME) walker with wheels See Rx Instructions .Route .MEDSUPPLY Qty: 1 0RF Rx Instructions: As directed (DME) FreeStyle Frank 2 [place] Misc See Rx Instructions .Route Qty: 1 0RF Rx Instructions: As directed aspirin 81 mg tablet,chewable 81 mg PO DAILY Qty: 90 1RF (DME) recliner See Rx Instructions .Route .MEDSUPPLY Qty: 1 0RF Rx Instructions: As directed (DME) liners for incontinence See Rx Instructions .Route .MEDSUPPLY Qty: 30 5RF Rx Instructions: Use As directed (DME) pen needle, diabetic [BD Ultra-Fine Short Pen Needle] 31 gauge x 5/16 needle See Rx Instructions .ROUTE .COMPLEX Qty: 100 1RF Dose Instruction: USE MARÍA LO INDICADO BENNETT VECES AL LIZZIE ANTES DE LAS COMIDAS Rx Instructions: USE MARÍA LO INDICADO BENNETT VECES AL LIZZIE ANTES DE LAS COMIDAS (DME) FreeStyle Frank 2 Sensor Kit See Rx Instructions .ROUTE .COMPLEX Qty: 2 8RF Dose Instruction: DIRECTED CHANGE EVERY 14 DAYS Rx Instructions: DIRECTED CHANGE EVERY 14 DAYS sertraline 100 mg tablet 100 mg PO BEDTIME Qty: 90 1RF melatonin 3 mg tablet 6 mg PO BEDTIME PRN (Reason: Insomnia) Qty: 90 1RF insulin lispro [Humalog KwikPen Insulin] 100 unit/mL insulin pen See Rx Instructions subcut CECELIA Qty: 15 6RF Rx Instructions: 10-12 units of Humalog prior to breakfast, 10-12 units before lunch, 8-10 units prior to dinner and 2-4 units prior to bedtime snack. subcutaneously 4 times a day before meal/bed; (DME) miscellaneous medical supply Misc See Rx Instructions .ROUTE Qty: 1 0RF Rx Instructions: Wheelchair cushion for wheelchair, use as directed (DME) miscellaneous medical supply Misc See Rx Instructions .ROUTE Qty: 1 0RF Rx Instructions: Raised toilet seat, use as directed (DME) Electric hospital bed head & foot See Rx Instructions .Route .MEDSUPPLY Qty: 1 0RF Rx Instructions: As directed (DME) Raised toilet seat See Rx Instructions .Route .MEDSUPPLY Qty: 1 0RF Rx Instructions: As directed (DME) electric recliner head and foot See Rx Instructions .Route .MEDSUPPLY Qty: 1 0RF Rx Instructions: As directed (DME) facial-body wipes See Rx Instructions .Route .MEDSUPPLY Qty: 4 11RF Rx Instructions: As directed (DME) Disposable bed pads See Rx Instructions .Route .MEDSUPPLY Qty: 100 11RF Rx Instructions: As directed (DME) Wheelchair cushion See Rx Instructions .Route .MEDSUPPLY Qty: 1 0RF Rx Instructions: As directed (DME) Male day & night urinal See Rx Instructions .Route .MEDSUPPLY Qty: 1 0RF Rx Instructions: As directed (DME) Wheelchair with cushion See Rx Instructions .Route .MEDSUPPLY Qty: 1 0RF Rx Instructions: As directed famotidine 40 mg tablet 40 mg PO DAILY PRN (Reason: heartburn) amiodarone 200 mg tablet 200 mg PO BID pantoprazole 40 mg tablet,delayed release (DR/EC) 40 mg PO DAILY@0630 acetaminophen 325 mg Tablet 650 mg PO TID Qty: 90 0RF oxycodone 5 mg tablet 5 mg PO Q6H PRN (Reason: pain) Qty: 12 0RF Rx Instructions: Partial Fill upon patient request. ondansetron 4 mg tablet,disintegrating 4 mg PO Q8H PRN (Reason: nausea and vomiting) Qty: 20 0RF clopidogrel 75 mg tablet 75 mg PO DAILY dapagliflozin propanediol [Farxiga] 10 mg tablet 10 mg PO DAILY losartan 25 mg tablet 25 mg PO DAILY spironolactone 25 mg tablet 25 mg PO DAILY morphine 15 mg tablet 15 mg PO Q6H PRN (Reason: severe pain (scale score 7-10)) Qty: 12 0RF Rx Instructions: Partial Fill upon patient request. (DME) Toilet rails See Rx Instructions .Route .MEDSUPPLY Qty: 1 0RF Rx Instructions: As directed (DME) Hospital bed See Rx Instructions .Route .MEDSUPPLY Qty: 1 0RF Rx Instructions: As directed gabapentin 600 mg tablet 600 mg PO TID Qty: 90 4RF metoprolol succinate 50 mg tablet extended release 24 hr 50 mg PO DAILY Qty: 90 1RF polyethylene glycol 3350 17 gram powder in packet 17 g PO DAILY Qty: 30 0RF docusate sodium 100 mg capsule 100 mg PO BID PRN (Reason: constipation) Qty: 60 5RF ferrous sulfate 325 mg (65 mg iron) tablet 325 mg PO DAILY Qty: 90 2RF (DME) blood-glucose meter [FreeStyle Lite Meter] Kit See Rx Instructions .Route Rx Instructions: As directed (DME) FreeStyle Lite Strips Strip See Rx Instructions .Route Rx Instructions: As directed atorvastatin 80 mg tablet 80 mg PO BEDTIME insulin degludec [Tresiba FlexTouch U-200] 200 unit/mL (3 mL) insulin pen 38 unit subcut DAILY 30 Days Qty: 6 11RF insulin lispro 100 unit/mL solution See Rx Instructions subcut USEASDIRECTD 30 Days Qty: 20 6RF Rx Instructions: 10-14 units with meals, 2-4 with snack for use with CeQur. Each click equals 2 units subcutaneously use as directed; (DME) CeQur Simplicity 2 unit device See Rx Instructions .ROUTE .MEDSUPPLY Qty: 8 6RF Rx Instructions: As directed 4 day insulin patch (DME) CeQur Simplicity Front Desk Person Misc See Rx Instructions .ROUTE .MEDSUPPLY Qty: 1 1RF Rx Instructions: As directed for use with CeQur insulin patch insulin glargine [Lantus Solostar U-100 Insulin] 100 unit/mL (3 mL) insulin pen 34 unit subcut BEDTIME Qty: 15 3RF glucose [Dex4 Glucose] 4 gram tablet,chewable 16 g PO Q15M PRN (Reason: hypoglycemia) Qty: 100 0RF Rx Instructions: until symptoms of low blood sugar are controlled Print Language: Malian
[2024-08-10 16:54] LABS: MANUAL DIFF FLAG NO
[2024-08-10 16:56] LABS: Basophils Absolute Auto 0.1 X10*3/uL (0.0-0.2); Basophils Percent Auto 0.9 % (0-2); Eosinophils Absolute Auto 0.5 X10*3/uL (0.0-0.4); Hematocrit 43.1 % (42.0-52.0); Hemoglobin 14.5 g/dl (14.0-18.0); Imm Gran Abs Auto 0.08 X10*3/uL (0.00-0.03); Imm Gran Pct Auto 0.9 % (0.0-0.4); Lymphocytes Absolute Auto 1.8 X10*3/uL (1.2-4.9); Lymphocytes Percent Auto 19.2 % (20-40); Mean Corpuscular HGB Conc 33.6 g/dl (31.0-36.0); Mean Corpuscular Hemoglobin 28.2 pg (27.0-33.0); Mean Corpuscular Volume 83.7 fL (80.0-98.0); Mean Platelet Volume 10.3 fL (9.4-12.4); Monocytes Absolute Auto 0.7 X10*3/uL (0.1-1.2); Monocytes Percent Auto 7.4 % (2-11); Neutrophils Absolute Auto 6.1 x10*3/uL (2.0-8.3); Neutrophils Percent Auto 66.6 % (45-73); Platelet Count 207 X10*3/uL (160-400); Red Blood Count 5.15 X10*6/uL (4.60-5.80); Red Cell Distribution Width 14.8 % (11.0-16.0); White Blood Count 9.2 X10*3/uL (4.8-10.8)
[2024-08-10 17:18] LABS: Albumin Level 3.9 g/dL (3.5-5.0); Anion Gap 16 (12-20); Aspartate Amino Transferase 35 U/L (5-37); Bilirubin Direct 0.1 mg/dL (0.0-0.5); Bilirubin Total 0.3 mg/dL (0.0-1.0); Blood Urea Nitrogen 20 mg/dL (9-16); Calcium 9.5 mg/dL (8.4-10.2); Carbon Dioxide 20 mmol/L (22-29); Chloride 103 mmol/L (96-108); Creatinine Clr Calc Pharmacy 83.5; Estimated Glomerular Filt Rate > 60; Glucose Random 365 mg/dL (60-115); Lipase 135 U/L (8-78); Magnesium 1.9 mg/dL (1.6-2.6); Potassium 4.6 mmol/L (3.3-5.1); Sodium 134 mmol/L (135-145); Total Protein 7.9 g/dL (6.5-8.0)
[2024-08-10 17:21] LABS: Alanine Aminotransferase 32 U/L (0-40); Alkaline Phosphatase 89 U/L (39-117)
[2024-08-10] MEDS: 0.9 % Sodium Chloride 1,000 ML 999 ML IV (19:13)
[2024-08-10] MEDS: Ketorolac Tromethamine 15 MG/ML VIAL IVPUSH (19:15)
[2024-08-10] MEDS: ondansetron HCL 4 MG/2 ML VIAL IVPUSH (19:15)
[2024-08-10] MEDS: Morphine Sulfate 4 MG/ML CARTRIDGE IVPUSH (19:16)
[2024-08-10 19:24] VITALS: BP 116/68; PULSE 72; RESP 16; TEMP 36.5; O2SAT 98
[2024-08-10 19:55] LABS: Appearance Urine Cloudy; Color Urine Yellow; Glucose Urine UA >=1000 mg/dL (Negative); Leukocyte Esterase Urine Moderate (2+) (Negative); Nitrite Urine Negative (Negative); PH 5.5 (5.0-9.0); Specific Gravity - Urine >= 1.030 (1.005-1.025); UMIC TRIGGER UACC YES; Urine Blood Moderate (2+) (Negative); Urine Ketones Negative (Negative); Urine Protein Negative (Neg-Trace)
[2024-08-10 20:01] LABS: Bacteria Urine None Seen (None Seen); UACC Culture Trigger YES; WBC Urine >50 /HPF (0-5)
[2024-08-10] MEDS: Acetaminophen 1,000 MG/100 ML PIGGYBACK 400 MG IV (22:00)
[2024-08-10 22:06] VITALS: BP 107/57; PULSE 64; RESP 16; TEMP 36.6; O2SAT 97
[2024-08-10] MEDS: cephALEXin 500 MG CAPSULE PO (22:38)
[2024-08-10 23:12] VITALS: BP 135/66; PULSE 66; RESP 16; TEMP 36.6; O2SAT 96
[2024-08-11 00:33] VITALS: BP 135/71; PULSE 76; RESP 16; TEMP 36.4; O2SAT 94
[2024-08-11 01:13] VITALS: BP 135/71; PULSE 76; RESP 16; TEMP 36.4; O2SAT 94
== END 2024-08-11 01:00 | disposition home or self-care (01) ==
PROVIDERS: Physician Assistant Medical; Emergency Provider Emergency Medicine; PCP Internal Medicine
DX: N39.0 Urinary tract infection, site not specified (principal); R31.9 Hematuria, unspecified; R10.9 Unspecified abdominal pain; R11.2 Nausea with vomiting, unspecified; E11.9 Type 2 diabetes mellitus without complications; I10 Essential (primary) hypertension; E78.5 Hyperlipidemia, unspecified; I48.0 Paroxysmal atrial fibrillation; Z87.442 Personal history of urinary calculi; Z89.512 Acquired absence of left leg below knee; Z90.49 Acquired absence of other specified parts of digestive tract; Z87.891 Personal history of nicotine dependence; Z79.02 Long term (current) use of antithrombotics/antiplatelets; Z79.899 Other long term (current) drug therapy; Z79.82 Long term (current) use of aspirin; Z79.4 Long term (current) use of insulin
CPT/HCPCS: 36415; 74176; 80048; 80076; 81001; 83690; 83735; 85025; 87086; 87147; 96361; 96365; 96375; 99284; J0131; J1885; J2270; J2405

== ENCOUNTER 2024-08-16 11:10 | Emergency (ER) | payer MEDICARE, SELFPAY ==
[2024-08-16 11:15] VITALS: BP 148/94; PULSE 60; O2SAT 96
[2024-08-16 11:19] VITALS: BP 176/70; PULSE 78; RESP 18; TEMP 36.6; O2SAT 98; BMI 34.4
[2024-08-16 11:46] LABS: MANUAL DIFF FLAG NO
[2024-08-16 11:47] LABS: Basophils Absolute Auto 0.1 X10*3/uL (0.0-0.2); Basophils Percent Auto 0.8 % (0-2); Eosinophils Absolute Auto 0.5 X10*3/uL (0.0-0.4); Eosinophils Percent Auto 4.9 % (0-4); Hemoglobin 14.8 g/dl (14.0-18.0); Imm Gran Abs Auto 0.14 X10*3/uL (0.00-0.03); Imm Gran Pct Auto 1.4 % (0.0-0.4); Lymphocytes Absolute Auto 1.9 X10*3/uL (1.2-4.9); Mean Corpuscular HGB Conc 33.6 g/dl (31.0-36.0); Mean Corpuscular Hemoglobin 28.6 pg (27.0-33.0); Mean Corpuscular Volume 84.9 fL (80.0-98.0); Mean Platelet Volume 10.6 fL (9.4-12.4); Monocytes Absolute Auto 0.7 X10*3/uL (0.1-1.2); Neutrophils Absolute Auto 6.6 x10*3/uL (2.0-8.3); Neutrophils Percent Auto 66.9 % (45-73); Platelet Count 190 X10*3/uL (160-400); Red Blood Count 5.18 X10*6/uL (4.60-5.80); Red Cell Distribution Width 15.4 % (11.0-16.0); White Blood Count 9.8 X10*3/uL (4.8-10.8)
[2024-08-16] MEDS: 0.9 % Sodium Chloride 1,000 ML 999 ML IV (11:51)
[2024-08-16] MEDS: ondansetron HCL 4 MG/2 ML VIAL IVPUSH ×2 (11:51→13:33)
--- NOTE | 2024-08-16 11:59 | PC.NURSE ---
Pt here on 08/10 and diganosed with UTI. Pt compliance with prescribed Keflex (today is the last dose). Pt reports pain has worsened in his flank as well as abdominal pain, endorses nausea.
[2024-08-16 12:11] LABS: Lactic Acid 2.4 mmol/L (0.5-2.0)
[2024-08-16 12:28] LABS: Appearance Urine Clear; Color Urine Yellow; Glucose Urine UA >=1000 mg/dL (Negative); Leukocyte Esterase Urine Negative (Negative); Nitrite Urine Negative (Negative); PH 5.5 (5.0-9.0); Specific Gravity - Urine >= 1.030 (1.005-1.025); UMIC TRIGGER UACC YES; Urine Blood Trace (Negative); Urine Ketones Negative (Negative); Urine Protein Negative (Neg-Trace)
[2024-08-16 12:37] LABS: Bacteria Urine None Seen (None Seen); Hyaline Casts Urine 0-2 /LPF (0-2); Squamous Epithelial Cell Urine 0-2 /HPF (0-2); UACC Culture Trigger YES
[2024-08-16 12:48] LABS: Alanine Aminotransferase 32 U/L (0-40); Albumin Level 3.7 g/dL (3.5-5.0); Alkaline Phosphatase 74 U/L (39-117); Anion Gap 16 (12-20); Aspartate Amino Transferase 29 U/L (5-37); Bilirubin Direct 0.1 mg/dL (0.0-0.5); Bilirubin Total 0.3 mg/dL (0.0-1.0); Blood Urea Nitrogen 18 mg/dL (9-16); Calcium 8.8 mg/dL (8.4-10.2); Carbon Dioxide 21 mmol/L (22-29); Chloride 104 mmol/L (96-108); Estimated Glomerular Filt Rate > 60; Glucose Random 373 mg/dL (60-115); Lipase 94 U/L (8-78); Potassium 4.3 mmol/L (3.3-5.1); Sodium 137 mmol/L (135-145); Total Protein 7.6 g/dL (6.5-8.0)
--- NOTE | 2024-08-16 12:54 | ED.ABDPAIN ---
HPI - Abdominal Pain General Chief Complaint: Abdominal Pain Stated Complaint: ABD PAIN,BACK PAIN PER EMS Time Seen by Provider: 08/16/24 12:50 Source: patient Limitations: no limitations History of Present Illness ED Provider: Dr. Joey Martinez HPI narrative: 59-year-old male with a history of diabetes mellitus, hypertension, hyperlipidemia, peripheral artery disease, paroxysmal atrial fibrillation, renal stones, bilateral [id number] amputations who presents emergency department for evaluation of upper abdominal pain radiating to the flank. The patient states that he was had this pain for 2-3 weeks. He states the pain is constant but waxes and wanes in intensity. He states the pain is stabbing pain. The patient has been seen several times in the emergency department for this pain. He was last seen on 08/10/2024 (6 days prior) and had a negative workup including a CT scan of the abdomen pelvis. Patient's urine culture was positive for group B strep and the patient was treated with cephalexin 500 mg b.i.d. x7 days. Patient denied fever, chills. He was had nausea vomiting but no diarrhea. He has had urinary frequency and dysuria which she describes as a burning sensation. Related Data Home Medications ?Medication ?Instructions ?Recorded ?Confirmed blood sugar diagnostic (FreeStyle 12/01/22 05/31/24 Lite Strips) blood-glucose meter (FreeStyle 12/01/22 05/31/24 Lite Meter kit) atorvastatin 80 mg tablet 80 mg PO BEDTIME 06/20/23 05/31/24 famotidine 40 mg tablet 40 mg PO DAILY PRN heartburn 09/11/23 05/31/24 amiodarone 200 mg tablet 200 mg PO BID 10/18/23 05/31/24 pantoprazole 40 mg tablet,delayed 40 mg PO DAILY@0630 10/18/23 05/31/24 release clopidogrel 75 mg tablet 75 mg PO DAILY 11/18/23 05/31/24 dapagliflozin propanediol 10 mg 10 mg PO DAILY 11/18/23 05/31/24 tablet (Farxiga) losartan 25 mg tablet 25 mg PO DAILY 11/18/23 05/31/24 spironolactone 25 mg tablet 25 mg PO DAILY 11/18/23 05/31/24 Previous Rx's ?Medication ?Instructions ?Recorded Bedside commode #1 ea 04/18/22 walker with wheels #1 ea 08/19/22 flash glucose scanning reader #1 ea 12/02/22 (FreeStyle Frank 2 Wickliffe) aspirin 81 mg chewable tablet 81 mg PO DAILY #90 tabs 09/10/23 acetaminophen 325 mg tablet 650 mg (2 x 325 mg) PO TID #90 tabs 12/21/23 recliner #1 ea 12/22/23 Hospital bed #1 ea 01/11/24 Toilet rails #1 ea 01/11/24 docusate sodium 100 mg capsule 100 mg PO BID PRN constipation #60 01/11/24 caps ferrous sulfate 325 mg (65 mg 325 mg PO DAILY #90 tabs 01/11/24 iron) tablet gabapentin 600 mg tablet 600 mg PO TID #90 tabs 01/11/24 metoprolol succinate 50 mg 50 mg PO DAILY #90 tabs 01/11/24 tablet,extended release 24 hr polyethylene glycol 3350 17 gram 17 g PO DAILY #30 ea 01/11/24 oral powder packet liners for incontinence #30 ea 01/25/24 pen needle, diabetic 31 gauge x #100 ea 02/13/2401/10 (BD Ultra-Fine Short Pen Needle) flash glucose sensor (FreeStyle #2 kits 03/30/24 Frank 2 Sensor kit) sertraline 100 mg tablet 100 mg PO BEDTIME #90 tabs 04/04/24 glucose 4 gram chewable tablet 16 g (4 x 4 gram) PO Q15M PRN 05/31/24 (Dex4 Glucose) hypoglycemia #100 tabs insulin glargine 100 unit/mL (3 34 unit (0.34 mL) subcut BEDTIME 05/31/24 mL) subcutaneous pen (Lantus #15 mL Solostar U-100 Insulin) bolus insulin pump, 200 unit 2 #8 ea 06/19/24 unit bolus insulin patch pump, 200 unit, disposable (CeQur Simplicity) diabetic supplies, miscellan. #1 ea 06/19/24 (CeQur Simplicity Compliance Assistant) insulin degludec 200 unit/mL (3 38 unit (0.19 mL) subcut DAILY 30 06/19/24 mL) subcutaneous pen (Tresiba days #6 mL FlexTouch U-200 insulin) insulin lispro 100 unit/mL See Rx Instructions subcut 06/19/24 subcutaneous solution USEASDIRECTD 30 days #20 mL melatonin 3 mg tablet 6 mg (2 x 3 mg) PO BEDTIME PRN 06/20/24 Insomnia #90 tabs insulin lispro 100 unit/mL See Rx Instructions subcut QIDACHS 06/26/24 subcutaneous pen (Humalog KwikPen #15 mL (U-100) Insulin) ondansetron 4 mg disintegrating 4 mg PO Q8H PRN nausea and 07/04/24 tablet vomiting #20 tabs oxycodone 5 mg tablet 5 mg PO Q6H PRN pain #12 tabs 07/04/24 morphine 15 mg immediate release 15 mg PO Q6H PRN severe pain 07/11/24 tablet (scale score 7-10) #12 tabs Disposable bed pads #100 ea 07/29/24 Electric hospital bed head & foot #1 ea 07/29/24 Male day & night urinal #1 ea 07/29/24 Raised toilet seat #1 ea 07/29/24 Wheelchair cushion #1 ea 07/29/24 electric recliner head and foot #1 ea 07/29/24 facial-body wipes #4 ea 07/29/24 miscellaneous medical supply #1 ea 07/29/24 miscellaneous medical supply #1 ea 07/29/24 Wheelchair with cushion #1 ea 08/06/24 cephalexin 500 mg capsule 500 mg PO BID #14 caps 08/10/24 morphine 15 mg immediate release 15 mg PO Q6H PRN pain #14 tabs 08/16/24 tablet ondansetron 4 mg disintegrating 4 mg PO Q6-8H PRN nausea and 08/16/24 tablet vomiting #14 tabs Allergies Allergy/AdvReac Type Severity Reaction Status Date / Time No Known Allergies Allergy Verified 08/16/24 11:21 Review of Systems Review of Systems Yes all other systems are reviewed and are negative [facility] Past Medical History [facility] Narrative: Social history: He denies tobacco, alcohol and drug use. Medical History (Updated 08/16/24 @ 15:18 by Joey Martinez MD) Hx of non-ST elevation myocardial infarction (NSTEMI) Major depression, recurrent Paroxysmal atrial fibrillation History of alcohol abuse Anemia Atrial fibrillation Essential hypertension PAD (peripheral artery disease) 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 Diabetes mellitus with retinopathy, with long-term current use of insulin Heartburn symptom Erectile dysfunction Dyslipidemia Amputation stump complication Hyperlipidemia Chronic pancreatitis Neuropathy Kidney calculus CAD (coronary artery disease) Arthritis Surgical History History of open heart surgery S/P angiogram of extremity (06/28/23) History of right below knee amputation Status post below-knee amputation S/P debridement Hx of lithotripsy Status post laparoscopic cholecystectomy Hx of heart artery stent Family History Family History Mother [place] (myocardial infarction), Onset Age: 64 Diabetes mellitus HTN (hypertension) Maternal Grandmother Diabetes mellitus Social History Social History Household Members: Spouse Household Members Other:: and daughter Housing: Apartment Do you presently have visiting nurse or other home services: Yes Alcohol intake: former Comment: Bilateral BKA's. Patient Tobacco Use Status: Former Tobacco user Tobacco use type: Cigarette Cigarette Packs Per Day: 0.01 Cigarettes Per Day: 3 Years Smoked: 30 e-Cigarette/Vaping Use: Never Used Second Hand Smoke Exposure: No Substance Use Type: Marijuana Advance Directives: No Advance Directives Information Provided: Yes Advance Directives Date on File: 04/17/21 service: No Current occupational status: unemployed and disabled Cognitive needs: No Hearing needs: No Vision needs: Yes Physical Exam ED Vital Signs: Vital Signs - 24 hr 08/16/24 11:19 08/16/24 13:41 08/16/24 15:07 Temperature 97.8 F 97.7 F Pulse Rate 78 68 Respiratory Rate 18 18 18 Blood Pressure 176/70 H 131/72 Pulse Oximetry 98 97 Oxygen Delivery Method Room Air Room Air BMI result Body Mass Index 34.4 Vital signs revealed an elevated blood pressure of 170/70 otherwise unremarkable Exam: General: Awake, alert in no distress Head: Normocephalic, atraumatic EENT: PERRL, Lids normal, sclera normal, conjunctiva normal, nose normal , ears normal, throat without erythema or exudates Neck: Supple, no adenopathy Lung: breath sounds symmetric, no wheezing, rales or rhonchi Chest: symmetric movement, nontender Heart: regular rate and rhythm, normal S1, S2 no murmurs or rubs Abdomen: Soft, moderate right upper quadrant tenderness, mild to moderate epigastric and left upper quadrant tenderness, no rebound, no voluntary or involuntary guarding, normoactive bowel sounds Back: no vertebral tenderness, no CVAT Extremities: Bilateral [id number] amputations, moves all extremities symmetrically Neuro: Awake, alert, oriented, normal speech, cranial nerves intact, moves all extremities symmetrically Psych: Pleasant, cooperative Medical Decision Making Medical Decision Making MDM Narrative: 59-year-old male with a history of diabetes mellitus, hypertension, hyperlipidemia, peripheral artery disease, paroxysmal atrial fibrillation, renal stones, bilateral [id number] amputations who presents emergency department for evaluation of upper abdominal pain radiating to the flank times 2-3 weeks. Patient was had multiple evaluations in the emergency department with the last evaluation on 08/10/2024 (6 days prior) and had a negative workup including a CT scan of the abdomen pelvis. Patient's urine culture was positive for group B strep and the patient was treated with cephalexin 500 mg b.i.d. x7 days. Vital signs revealed an elevated blood pressure. Patient did have right upper quadrant, epigastric and left upper quadrant tenderness as well as right flank tenderness. Differential diagnosis: ?Includes but is not limited to acute cholecystitis, pancreatitis, gastritis, biliary colic, ureteral stone, urinary tract infection, electrolyte abnormalities, anemia Course: 15:33 Patient's laboratory evaluation revealed a normal CBC. Patient had an elevated glucose of 372. Low bicarb of 21. LFTs were normal. Lipase was normal. Lactic acid was slightly elevated at 2.4. Urinalysis revealed 6-10 RBCs, 10-20 WBCs but no bacteria-not consistent with urinary tract infection At this time I do not have a clear etiology for the patient's pain. I did discuss this with the patient. Patient was given morphine 4 mg IV x2, Zofran 1 mg IV x2 and normal saline x1 L. The patient was feeling better after the above treatment. The patient was advised to take Tylenol for pain and for pain not relieved by these medications he was prescribed morphine 15 mg every 6 hours as needed for pain. He was also given a prescription for Zofran 4 mg ODT Q 6-8 hours as needed for nausea and vomiting. He was given printed and verbal instructions and discharged home. Admission/Observation Consideration of admission/observation: Escalation of care including admission/observation considered (Yes) Lab Data MDM Lab Attestation statement: I reviewed the patient's lab results. 08/16/24 11:39 08/16/24 12:26 Labs: Lab Results 08/16/24 08/16/24 08/16/24 Range/Units 11:39 12:22 12:26 WBC 9.8 (4.8-10.8) X10*3/uL RBC 5.18 (4.60-5.80) X10*6/uL Hgb 14.8 (14.0-18.0) g/dl Hct 44.0 (42.0-52.0) % MCV 84.9 (80.0-98.0) fL MCH 28.6 (27.0-33.0) pg MCHC 33.6 (31.0-36.0) g/dl RDW 15.4 (11.0-16.0) % Plt Count 190 (160-400) X10*3/uL MPV 10.6 (9.4-12.4) fL Immature Gran % (Auto) 1.4 H (0.0-0.4) % Neut % (Auto) 66.9 (45-73) % Lymph % (Auto) 19.0 L (20-40) % [place] % (Auto) 7.0 (2-11) % Eos % (Auto) 4.9 H (0-4) % Baso % (Auto) 0.8 (0-2) % Lymph # (Auto) 1.9 (1.2-4.9) X10*3/uL [place] # (Auto) 0.7 (0.1-1.2) X10*3/uL Eos # (Auto) 0.5 H (0.0-0.4) X10*3/uL Baso # (Auto) 0.1 (0.0-0.2) X10*3/uL Abs Immat Gran (auto) 0.14 H (0.00-0.03) X10*3/uL Absolute Neuts (auto) 6.6 (2.0-8.3) x10*3/uL Absolute Nucleated RBC 0.000 (0.0-0.012) X10*3/uL Nucleated RBC % (auto) 0.0 (0.0-0.2) /100WBC Sodium 137 (135-145) mmol/L Potassium 4.3 (3.3-5.1) mmol/L Chloride 104 (96-108) mmol/L Carbon Dioxide 21 L (22-29) mmol/L Anion Gap 16 (12-20) BUN 18 H (9-16) mg/dL Creatinine 0.87 (0.5-1.4) mg/dL Estim Creat Clear Calc 104.0 Estimated GFR > 60 Random Glucose 373 H* (60-115) mg/dL Lactic Acid 2.4 H* (0.5-2.0) mmol/L Lactic Acid F/U @ 2Hr (0.5-2.0) mmol/L Calcium 8.8 D (8.4-10.2) mg/dL Total Bilirubin 0.3 (0.0-1.0) mg/dL Direct Bilirubin 0.1 (0.0-0.5) mg/dL AST 29 (5-37) U/L ALT 32 (0-40) U/L Alkaline Phosphatase 74 (39-117) U/L Total Protein 7.6 (6.5-8.0) g/dL Albumin 3.7 (3.5-5.0) g/dL Lipase 94 H (8-78) U/L Urine Color Yellow Urine Appearance Clear Urine pH 5.5 (5.0-9.0) Ur Specific [place] >= 1.030 H (1.005-1.025) Urine Protein Negative (Neg-Trace) mg/dL Urine Glucose (UA) >=1000 H (Negative) mg/dL Urine Ketones Negative (Negative) mg/dL Urine Blood Trace H (Negative) Urine Nitrite Negative (Negative) Ur Leukocyte Esterase Negative (Negative) Urine RBC 6-10 H (0-2) /HPF Urine WBC 11-20 H (0-5) /HPF Ur Squamous Epith Cells 0-2 (0-2) /HPF Urine Bacteria None Seen (None Seen) Hyaline Casts 0-2 (0-2) /LPF 08/16/24 Range/Units 13:55 WBC (4.8-10.8) X10*3/uL RBC (4.60-5.80) X10*6/uL Hgb (14.0-18.0) g/dl Hct (42.0-52.0) % MCV (80.0-98.0) fL MCH (27.0-33.0) pg MCHC (31.0-36.0) g/dl RDW (11.0-16.0) % Plt Count (160-400) X10*3/uL MPV (9.4-12.4) fL Immature Gran % (Auto) (0.0-0.4) % Neut % (Auto) (45-73) % Lymph % (Auto) (20-40) % [place] % (Auto) (2-11) % Eos % (Auto) (0-4) % Baso % (Auto) (0-2) % Lymph # (Auto) (1.2-4.9) X10*3/uL [place] # (Auto) (0.1-1.2) X10*3/uL Eos # (Auto) (0.0-0.4) X10*3/uL Baso # (Auto) (0.0-0.2) X10*3/uL Abs Immat Gran (auto) (0.00-0.03) X10*3/uL Absolute Neuts (auto) (2.0-8.3) x10*3/uL Absolute Nucleated RBC (0.0-0.012) X10*3/uL Nucleated RBC % (auto) (0.0-0.2) /100WBC Sodium (135-145) mmol/L Potassium (3.3-5.1) mmol/L Chloride (96-108) mmol/L Carbon Dioxide (22-29) mmol/L Anion Gap (12-20) BUN (9-16) mg/dL Creatinine (0.5-1.4) mg/dL Estim Creat Clear Calc Estimated GFR Random Glucose (60-115) mg/dL Lactic Acid (0.5-2.0) mmol/L Lactic Acid F/U @ 2Hr 1.8 (0.5-2.0) mmol/L Calcium (8.4-10.2) mg/dL Total Bilirubin (0.0-1.0) mg/dL Direct Bilirubin (0.0-0.5) mg/dL AST (5-37) U/L ALT (0-40) U/L Alkaline Phosphatase (39-117) U/L Total Protein (6.5-8.0) g/dL Albumin (3.5-5.0) g/dL Lipase (8-78) U/L Urine Color Urine Appearance Urine pH (5.0-9.0) Ur Specific [place] (1.005-1.025) Urine Protein (Neg-Trace) mg/dL Urine Glucose (UA) (Negative) mg/dL Urine Ketones (Negative) mg/dL Urine Blood (Negative) Urine Nitrite (Negative) Ur Leukocyte Esterase (Negative) Urine RBC (0-2) /HPF Urine WBC (0-5) /HPF Ur Squamous Epith Cells (0-2) /HPF Urine Bacteria (None Seen) Hyaline Casts (0-2) /LPF Prescription Management I considered prescription management with: Pain Medication and Other (Antiemetics) Chronic Conditions Patient?s care impacted by: Diabetes and Hypertension Medications Administered Discontinued Medications Generic Name Dose Route Start Last Admin Trade Name Freq PRN Reason Stop Dose Admin Sodium Chloride 1,000 mls @ 999 mls/hr 08/16/24 11:30 08/16/24 11:51 Ns IV 08/16/24 12:30 999 mls/hr .Q1H1M SHELLY Administration Morphine Sulfate 4 mg 08/16/24 13:28 08/16/24 13:33 Morphine Sulfate 4 Mg/Ml Cartridge IVPUSH 08/16/24 13:29 4 mg ONCE STA Administration Protocol Morphine Sulfate 4 mg 08/16/24 14:55 08/16/24 15:07 Morphine Sulfate 4 Mg/Ml Cartridge IVPUSH 08/16/24 14:56 4 mg ONCE STA Administration Protocol Ondansetron HCl 4 mg 08/16/24 11:23 08/16/24 11:51 Ondansetron Hcl 4 Mg/2 Ml Vial IVPUSH 08/16/24 11:24 4 mg ONCE ONE Administration Ondansetron HCl 4 mg 08/16/24 13:28 08/16/24 13:33 Ondansetron Hcl 4 Mg/2 Ml Vial IVPUSH 08/16/24 13:29 4 mg ONCE ONE Administration Discharge Plan Discharge Clinical Impression: Acute upper abdominal pain, Acute flank pain Patient Disposition: Home, Self-Care Additional Instructions: Your blood work was unremarkable. Your urinalysis was also unremarkable. At this time I do not have a clear cause for your pain, you did have a CT scan recently that did not reveal a clear cause for your pain either. Continue taking medications as prescribed by your providers. Take Tylenol (acetaminophen) 2 pills every 6 hours as needed for pain. For pain not relieved by Tylenol take morphine 15 mg pills, 1 pill every 6 hours as needed for pain. This medication will make you sleepy, do not drive or work while taking this medication. Morphine is a narcotic medication and can be addicting. If you are concerned about addiction you can ask the pharmacist for less pills or do not get this prescription filled. Take Zofran ODT 4 mg pills, 1 pill dissolved in your mouth every 8 hours as needed for nausea and vomiting. Follow-up with your doctor in 2 days. Please return to the emergency department if your symptoms get worse or if you develop any symptoms that are concerning to you. Prescriptions: New ondansetron 4 mg tablet,disintegrating 4 mg PO Q6-8H PRN (Reason: nausea and vomiting) Qty: 14 0RF morphine 15 mg tablet 15 mg PO Q6H PRN (Reason: pain) Qty: 14 0RF Rx Instructions: Patient may request partial fill; Partial Fill upon patient request. No Action (DME) Bedside commode See Rx Instructions .Route .MEDSUPPLY Qty: 1 0RF Rx Instructions: As directed (DME) walker with wheels See Rx Instructions .Route .MEDSUPPLY Qty: 1 0RF Rx Instructions: As directed (DME) FreeStyle Frank 2 Wickliffe Misc See Rx Instructions .Route Qty: 1 0RF Rx Instructions: As directed aspirin 81 mg tablet,chewable 81 mg PO DAILY Qty: 90 1RF (DME) recliner See Rx Instructions .Route .MEDSUPPLY Qty: 1 0RF Rx Instructions: As directed (DME) liners for incontinence See Rx Instructions .Route .MEDSUPPLY Qty: 30 5RF Rx Instructions: Use As directed (DME) pen needle, diabetic [BD Ultra-Fine Short Pen Needle] 31 gauge x 5/16 needle See Rx Instructions .ROUTE .COMPLEX Qty: 100 1RF Dose Instruction: USE MARÍA LO INDICADO BENNETT VECES AL LIZZIE ANTES DE LAS COMIDAS Rx Instructions: USE MARÍA LO INDICADO BENNETT VECES AL LIZZIE ANTES DE LAS COMIDAS (DME) FreeStyle Frank 2 Sensor Kit See Rx Instructions .ROUTE .COMPLEX Qty: 2 8RF Dose Instruction: DIRECTED CHANGE EVERY 14 DAYS Rx Instructions: DIRECTED CHANGE EVERY 14 DAYS sertraline 100 mg tablet 100 mg PO BEDTIME Qty: 90 1RF melatonin 3 mg tablet 6 mg PO BEDTIME PRN (Reason: Insomnia) Qty: 90 1RF insulin lispro [Humalog KwikPen Insulin] 100 unit/mL insulin pen See Rx Instructions subcut QIDACHS Qty: 15 6RF Rx Instructions: 10-12 units of Humalog prior to breakfast, 10-12 units before lunch, 8-10 units prior to dinner and 2-4 units prior to bedtime snack. subcutaneously 4 times a day before meal/bed; (DME) miscellaneous medical supply Misc See Rx Instructions .ROUTE Qty: 1 0RF Rx Instructions: Wheelchair cushion for wheelchair, use as directed (DME) miscellaneous medical supply Misc See Rx Instructions .ROUTE Qty: 1 0RF Rx Instructions: Raised toilet seat, use as directed (DME) Electric hospital bed head & foot See Rx Instructions .Route .MEDSUPPLY Qty: 1 0RF Rx Instructions: As directed (DME) Raised toilet seat See Rx Instructions .Route .MEDSUPPLY Qty: 1 0RF Rx Instructions: As directed (DME) electric recliner head and foot See Rx Instructions .Route .MEDSUPPLY Qty: 1 0RF Rx Instructions: As directed (DME) facial-body wipes See Rx Instructions .Route .MEDSUPPLY Qty: 4 11RF Rx Instructions: As directed (DME) Disposable bed pads See Rx Instructions .Route .MEDSUPPLY Qty: 100 11RF Rx Instructions: As directed (DME) Wheelchair cushion See Rx Instructions .Route .MEDSUPPLY Qty: 1 0RF Rx Instructions: As directed (DME) Male day & night urinal See Rx Instructions .Route .MEDSUPPLY Qty: 1 0RF Rx Instructions: As directed (DME) Wheelchair with cushion See Rx Instructions .Route .MEDSUPPLY Qty: 1 0RF Rx Instructions: As directed famotidine 40 mg tablet 40 mg PO DAILY PRN (Reason: heartburn) amiodarone 200 mg tablet 200 mg PO BID pantoprazole 40 mg tablet,delayed release (DR/EC) 40 mg PO DAILY@0630 acetaminophen 325 mg Tablet 650 mg PO TID Qty: 90 0RF oxycodone 5 mg tablet 5 mg PO Q6H PRN (Reason: pain) Qty: 12 0RF Rx Instructions: Partial Fill upon patient request. ondansetron 4 mg tablet,disintegrating 4 mg PO Q8H PRN (Reason: nausea and vomiting) Qty: 20 0RF cephalexin 500 mg capsule 500 mg PO BID Qty: 14 0RF clopidogrel 75 mg tablet 75 mg PO DAILY dapagliflozin propanediol [Farxiga] 10 mg tablet 10 mg PO DAILY losartan 25 mg tablet 25 mg PO DAILY spironolactone 25 mg tablet 25 mg PO DAILY morphine 15 mg tablet 15 mg PO Q6H PRN (Reason: severe pain (scale score 7-10)) Qty: 12 0RF Rx Instructions: Partial Fill upon patient request. (DME) Toilet rails See Rx Instructions .Route .MEDSUPPLY Qty: 1 0RF Rx Instructions: As directed (DME) Hospital bed See Rx Instructions .Route .MEDSUPPLY Qty: 1 0RF Rx Instructions: As directed gabapentin 600 mg tablet 600 mg PO TID Qty: 90 4RF metoprolol succinate 50 mg tablet extended release 24 hr 50 mg PO DAILY Qty: 90 1RF polyethylene glycol 3350 17 gram powder in packet 17 g PO DAILY Qty: 30 0RF docusate sodium 100 mg capsule 100 mg PO BID PRN (Reason: constipation) Qty: 60 5RF ferrous sulfate 325 mg (65 mg iron) tablet 325 mg PO DAILY Qty: 90 2RF (DME) blood-glucose meter [FreeStyle Lite Meter] Kit See Rx Instructions .Route Rx Instructions: As directed (DME) FreeStyle Lite Strips Strip See Rx Instructions .Route Rx Instructions: As directed atorvastatin 80 mg tablet 80 mg PO BEDTIME insulin degludec [Tresiba FlexTouch U-200] 200 unit/mL (3 mL) insulin pen 38 unit subcut DAILY 30 Days Qty: 6 11RF insulin lispro 100 unit/mL solution See Rx Instructions subcut USEASDIRECTD 30 Days Qty: 20 6RF Rx Instructions: 10-14 units with meals, 2-4 with snack for use with CeQur. Each click equals 2 units subcutaneously use as directed; (DME) CeQur Simplicity 2 unit device See Rx Instructions .ROUTE .MEDSUPPLY Qty: 8 6RF Rx Instructions: As directed 4 day insulin patch (DME) CeQur Simplicity Compliance Assistant Misc See Rx Instructions .ROUTE .MEDSUPPLY Qty: 1 1RF Rx Instructions: As directed for use with CeQur insulin patch insulin glargine [Lantus Solostar U-100 Insulin] 100 unit/mL (3 mL) insulin pen 34 unit subcut BEDTIME Qty: 15 3RF glucose [Dex4 Glucose] 4 gram tablet,chewable 16 g PO Q15M PRN (Reason: hypoglycemia) Qty: 100 0RF Rx Instructions: until symptoms of low blood sugar are controlled Print Language: Mongolian
[2024-08-16] MEDS: Morphine Sulfate 4 MG/ML CARTRIDGE IVPUSH ×2 (13:33→15:07)
[2024-08-16 13:41] VITALS: BP 131/72; PULSE 68; RESP 18; TEMP 36.5; O2SAT 97
[2024-08-16 13:44] LABS: Reflex Lactate? Lactic Acid Added
[2024-08-16 14:20] LABS: ~Lactic Acid-LAB USE ONLY 1.8 mmol/L (0.5-2.0)
[2024-08-16 15:07] VITALS: RESP 18
[2024-08-16 15:50] VITALS: BP 138/70; PULSE 68; RESP 20; TEMP 36.8; O2SAT 96
== END 2024-08-16 16:18 | disposition home or self-care (01) ==
PROVIDERS: Emergency Provider Emergency Medicine Emergency Medical Services; PCP Internal Medicine
DX: R10.10 Upper abdominal pain, unspecified (principal); R30.0 Dysuria; R35.0 Frequency of micturition; E11.9 Type 2 diabetes mellitus without complications; I10 Essential (primary) hypertension; E78.5 Hyperlipidemia, unspecified; I48.0 Paroxysmal atrial fibrillation; Z79.899 Other long term (current) drug therapy; Z89.512 Acquired absence of left leg below knee; Z89.511 Acquired absence of right leg below knee
CPT/HCPCS: 36415; 80048; 80076; 81001; 83605; 83690; 85025; 87040; 87086; 96361; 96374; 96375; 96376; 99284; J2270; J2405

== ENCOUNTER 2024-09-20 09:53 | Outpatient (AMB) | payer MEDICARE, SELFPAY ==
--- NOTE | 2024-09-20 09:43 | A.OFFPC_ITS ---
Intake Visit Reasons: general health, medical supplies Intake Note: Pt is having a TH visit to discuss rx's or orders for medical supplies [phone] Allergies No Known Allergies Allergy (Verified 09/20/24 10:03) Medication List - Last Reconciled 09/20/24 by Shanta Haney MD acetaminophen 650 mg (2 x 325 mg) PO TID amiodarone 200 mg PO BID aspirin 81 mg PO DAILY atorvastatin 80 mg PO BEDTIME [Bedside commode As directed] blood sugar diagnostic (FreeStyle Lite Strips) As directed blood-glucose meter (FreeStyle Lite Meter kit) As directed bolus insulin pump, 200 unit (CeQur Simplicity) As directed 4 day insulin patch cephalexin 500 mg PO BID clopidogrel 75 mg PO DAILY dapagliflozin propanediol (Farxiga) 10 mg PO DAILY diabetic supplies, miscellan. (CeQur Simplicity [employer]) As directed for use with CeQur insulin patch [Disposable bed pads As directed] docusate sodium 100 mg PO BID PRN [electric recliner head and foot As directed] [facial-body wipes As directed] famotidine 40 mg PO DAILY PRN ferrous sulfate 325 mg PO DAILY flash glucose scanning reader (FreeStyle Frank 2 [place]) As directed flash glucose sensor (FreeStyle Frank 2 Sensor kit) DIRECTED CHANGE EVERY 14 DAYS gabapentin 600 mg PO TID [Hospital bed As directed] insulin degludec (Tresiba FlexTouch U-200 insulin) 38 units (0.19 mL) subcut DAILY 30 days insulin lispro 10-14 units with meals, 2-4 with snack for use with CeQur. Each click equals 2 units subcutaneously use as directed; 30 days [liners for incontinence Use As directed] losartan 25 mg PO DAILY [Male day & night urinal As directed] melatonin 6 mg (2 x 3 mg) PO BEDTIME PRN metoprolol succinate ER 50 mg PO DAILY miscellaneous medical supply Wheelchair cushion for wheelchair, use as directed miscellaneous medical supply Raised toilet seat, use as directed ondansetron 4 mg PO Q6-8H PRN pantoprazole 40 mg PO DAILY@0630 pen needle, diabetic (BD Ultra-Fine Short Pen Needle) USE MARÍA LO INDICADO BENNETT VECES AL LIZZIE ANTES DE LAS COMIDAS polyethylene glycol 3350 17 grams PO DAILY [Raised toilet seat As directed] [recliner As directed] [Semi electric hospital bed Use As directed NS] sertraline 100 mg PO BEDTIME sertraline 75 mg PO BEDTIME spironolactone 25 mg PO DAILY [Standard Wheelchair with cushion and foot rest As directed] [Toilet rails As directed] [walker with wheels As directed] [Wheelchair cushion As directed] Tobacco use date assessed: 09/20/24 Dental Screening Dental Screen Date: 09/20/24 Did you have a dental visit in the last 12 months?: No Did you have a dental problem in the last 6 months where you did not have access to dental care?: No Was dental information given to patient?: No (dentures) HPI general health, medical supplies HPI Details Telehealth visit made with 59-year-old male with type 2 diabetes mellitus, hypertension, hyperlipidemia, coronary artery disease with history of STEMI, paroxysmal atrial fibrillation chronic pancreatitis, peripheral vascular disease s/p bilateral lower leg amputations, and depression, here today requesting prescription for wheelchair , semi electric hospital bed, and a recliner He is currently being followed by [facility] endocrine clinic with diabetes mellitus not well controlled, last hemoglobin A1c in May at 9.2%. Discussions have been made on starting insulin pump for control of diabetes. He has bilateral amputation of both lower extremities, awaiting fitting to get prosthetics. Patient has expressed wanting to have his license reinstated. Has a hard time with around with due to faulty wheelchair, requesting for prescr iption for a new wheelchair. At present, he is confined MOLST the for the time to his bed as he has difficulty with transferring from his bed to wheelchair, and to chair, having a hard time finding the right position in bed, and has chronic GERD, does need his head of bed elevated. Patient has his daughters taking care of him at home, but they have a hard time with lifting him from bed to his wheelchair and assisting him with his toileting and bathing. [facility] Medical History (Updated 09/22/24 @ 23:05 by Shanta aHney MD) Hx of non-ST elevation myocardial infarction (NSTEMI) Major depression, recurrent Paroxysmal atrial fibrillation History of alcohol abuse Anemia Essential hypertension PAD (peripheral artery disease) 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 Diabetes mellitus with retinopathy, with long-term current use of insulin Heartburn symptom Erectile dysfunction Dyslipidemia Amputation stump complication Hyperlipidemia Chronic pancreatitis Neuropathy Kidney calculus CAD (coronary artery disease) Arthritis Surgical History (Updated 09/22/24 @ 23:05 by Shanta Haney MD) Status post amputation of left foot through metatarsal bone History of open heart surgery S/P angiogram of extremity (06/28/23) History of right below knee amputation Status post below-knee amputation S/P debridement Hx of lithotripsy Status post laparoscopic cholecystectomy Hx of heart artery stent Family History Mother [place] (myocardial infarction), Onset Age: 64 Diabetes mellitus HTN (hypertension) Maternal Grandmother Diabetes mellitus Social History Household Members: Spouse Household Members Other:: and daughter Housing: Apartment Do you presently have visiting nurse or other home services: Yes Alcohol intake: former Comment: Bilateral BKA's. Patient Tobacco Use Status: Former Tobacco user Tobacco use type: Cigarette Cigarette Packs Per Day: 0.01 Cigarettes Per Day: 3 Years Smoked: 30 Packs Per Year: 0 Packs per year/per ci.50 e-Cigarette/Vaping Use: Never Used Second Hand Smoke Exposure: No Substance Use Type: Marijuana Advance Directives Date on File: 04/17/21 service: No Current occupational status: unemployed and disabled Cognitive needs: No Hearing needs: No Vision needs: Yes Questionnaire PHQ-9 Over the last 2 weeks, how often have you been bothered by any of the following problems? 1. Little interest or pleasure in doing things: not at all 2. Feeling down, depressed, or hopeless: not at all 3. Trouble falling or staying asleep, or sleeping too much: not at all 4. Feeling tired or having little energy: not at all 5. Poor appetite or overeating: not at all 6. Feeling bad about yourself - or that you are a failure or have let yourself or your family down: not at all 7. Trouble concentrating on things, such as reading the newspaper or watching television: not at all 8. Moving or speaking so slowly that other people could have noticed. Or the opposite - being so fidgety or restless that you have been moving around a lot more than usual: not at all 9. Thoughts that you would be better off or of hurting yourself in some way: not at all Total score: 0 Depression Screening Interpretation: Negative Depression Screening Done: Yes 39062 - PHQ-9 Billing: Yes (Currently followed by psychiatry, doing well on sertraline) Source: Developed by Drs. William Burton, Jayla Donnelly, Joesph Fay and colleagues, with an educational miriam from [employer]. Thrive Questionnaire Date Thrive assessed: 12/14/23 AUDIT C Alcohol Use Questionnaire (AUDIT-C) 1. How often do you have a drink containing alcohol?: Never Total Score: 0 NASRIN-7 AMB Questionnaire NASRIN-7 Date NASRIN - 7 assessed: 09/20/24 Feeling nervous, anxious, or on edge: 1 = Several days Not being able to stop or control worryin = Several days Worrying too much about different things: 1 = Several days Trouble relaxin = Several days Being so restless that it is hard to sit still: 1 = Several days Becoming easily annoyed or irritable: 0 = Not at all Feeling afraid as if something awful might happen: 0 = Not at all Total NASRIN-7 score (0-4 normal; 5-9 mild; 10-14 moderate; 15-21 severe): 5 Source: Developed by Drs. William Burton, Jayla Donnelly, Joesph Fay and colleagues, with an educational miriam from [employer]. NASRIN-7 Assessment Billing NASRIN-7 Assessment Tool: NASRIN-7 Assessment 43879 Review of Systems Const All systems reviewed & are unremarkable except as noted in HPI and below Denies body aches, Denies fever(s), Denies lethargy, Denies malaise and Denies weakness ENT Reports no additional complaints Card Denies chest pain, Denies chest pain at rest, Denies chest pain with activity, Denies pedal edema and Denies dyspnea Resp Denies cough and Denies dyspnea GI Denies abdominal pain, Reports heartburn (Currently on pantoprazole) and Reports nausea (On ondansetron as needed) Musc Denies arthralgias, Denies muscle cramps, Denies muscle weakness, Denies numbness, Denies radiating pain into limb and Denies stiffness Skin/Breast Denies skin ulcer and Denies wounds Neuro Denies numbness and Denies weakness Psych Reports no additional complaints Endo Reports as per HPI and Reports polyuria [place]/Lymph Denies easy bleeding and Denies easy bruising Aller/Immun Reports no additional complaints Physical exam (Primary Care) Tobacco/Smoking Status: Tobacco use Status Tobacco use date assessed 09/20/24 09/20/24 09:51 Patient Tobacco Use Status Former Tobacco user 09/20/24 09:51 Tobacco use type Cigarette 09/20/24 09:51 e-Cigarette/Vaping Use Never Used 09/20/24 09:51 PHQ-9: PHQ-9 Score PHQ-9: Total score 0 09/20/24 10:07 Depression Screening Interpretation: Negative Thrive Assessment: Date of Thrive Assessment Date Thrive assessed 12/14/23 09/20/24 09:51 Telehealth Telehealth Telehealth Platform: [employer] Location of provider rendering services: practice address Location of patient: address on file Patient Identification confirmed using: Name, : Yes Telehealth method: video Patient verbally consented to treatment: Yes Patient verbally consented to billing insurance company: Yes Patient informed of any privacy concerns related to visit: Yes Minutes spent on Phone/Video with Pt.: 15 Coding Level of Care Code Tele Est Pt Level 3 (86005) Diagnoses Below-knee amputation of left lower extremity S88.112A 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 E11.42; E11.65 Heartburn symptom R12 Pure hypercholesterolemia E78.00 Hyperlipidemia type: pure hypercholesterolemia Paroxysmal atrial fibrillation I48.0 Essential hypertension I10 Additional Codes PHQ-9 - 02172 - PHQ-9 Billing: Yes ([id number]) NASRIN-7 Assessment Billing - NASRIN-7 Assessment Tool: NASRIN-7 Assessment 47864 ([id number]) Assessment & Plan Assessment & Plan (1) Below-knee amputation of left lower extremity: Code(s): S88.112A - Complete traumatic amputation at level between knee and ankle, left lower leg, initial encounter Category: Medical (2) 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: Code(s): E11.42 - Type 2 diabetes mellitus with diabetic polyneuropathy; E11.65 - Type 2 diabetes mellitus with hyperglycemia Category: Medical (3) Heartburn symptom: Code(s): R12 - Heartburn Category: Medical (4) Hyperlipidemia: Code(s): E78.5 - Hyperlipidemia, unspecified Category: Medical Qualifiers: Hyperlipidemia type: pure hypercholesterolemia Qualified Code(s): E78.00 - Pure hypercholesterolemia, unspecified (5) Paroxysmal atrial fibrillation: Code(s): I48.0 - Paroxysmal atrial fibrillation Category: Medical (6) Essential hypertension: Code(s): I10 - Essential (primary) hypertension Category: Medical Plan The medical management will entail finalizing the insulin pump process for the patient's diabetes, with coordination on correcting dosing as per updated instructions. 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 Prescription ordered for a new wheelchair, a recliner and a hospital bed, aiming to improve mobility and comfort. Advised to initially try OTC aids such as Unisom to help initiate sleep, with consideration of further psychiatric support for anxiety if the current approach proves inadequate. Regular patient assessment will be vital in adjusting the plan as the patient continues engaging with specialized care for his diabetes, validating prosthetic functionality, and maintaining overall wellbeing. Patient was informed and verbally consented to the use of an ambient scribe for clinic note documentation during this visit.
== END 2024-09-20 11:05 | disposition home or self-care (01) ==
LOC: HO.HMCC 09:53
PROVIDERS: PCP Internal Medicine; Visit Provider Internal Medicine
DX: S88.112A Complete traumatic amputation at level between knee and ankle, left lower leg, initial encounter (principal); E11.42 Type 2 diabetes mellitus with diabetic polyneuropathy; E11.65 Type 2 diabetes mellitus with hyperglycemia; I48.0 Paroxysmal atrial fibrillation; R12 Heartburn; E78.00 Pure hypercholesterolemia, unspecified; I10 Essential (primary) hypertension

== ENCOUNTER → 2024-09-20 09:53 | Outpatient (BNVA) | payer MEDICARE, SELFPAY | PROVIDERS: PCP Internal Medicine; Visit Provider Internal Medicine | DX: S88 Traumatic amputation of lower leg (principal); E11.42 Type 2 diabetes mellitus with diabetic polyneuropathy; E11.65 Type 2 diabetes mellitus with hyperglycemia; R12 Heartburn; E78.00 Pure hypercholesterolemia, unspecified; I48.0 Paroxysmal atrial fibrillation; I10 Essential (primary) hypertension | CPT/HCPCS: 96127 ==

== ENCOUNTER 2024-10-09 15:07 | Outpatient (AMB) | payer MEDICARE, SELFPAY ==
--- NOTE | 2024-10-09 15:12 | A.OFFVIS_ITS ---
Vital Signs 10/09/24 15:22 Height 5 ft 7 in BMI Reason not done Patient refused/unable BP 132/82 Blood Pressure Location Rt brachial Position Sitting Pulse 85 Pulse Source Pulse Oximeter Intake Visit Reasons: T2DM Intake Note: Patient presents today for a follow-up on Type 2 Diabetes Mellitus: Last Diabetic eye exam was on: 05/28/2024 Last Podiatry exam was on: Patient does not see a Ribbon Lap Machine Tender Most recent HbA1c: 10.5%, 10/09/2024 Random Glucose- 264 mg/dL, Today Hoop Bending Machine Operator Required: Yes Hoop Bending Machine Operator Services: Hoop Bending Machine Operator Offered & Declined Accompanied by: Son Allergies No Known Allergies Allergy (Verified 10/09/24 15:13) Medication List - Last Reconciled 10/09/24 by Martina Gray MD acetaminophen 650 mg (2 x 325 mg) PO TID amiodarone 200 mg PO BID aspirin 81 mg PO DAILY atorvastatin 80 mg PO BEDTIME [Bedside commode As directed] blood sugar diagnostic (FreeStyle Lite Strips) As directed blood-glucose meter (FreeStyle Lite Meter kit) As directed bolus insulin pump, 200 unit (CeQur Simplicity) As directed 4 day insulin patch cephalexin 500 mg PO BID clopidogrel 75 mg PO DAILY dapagliflozin propanediol (Farxiga) 10 mg PO DAILY diabetic supplies, miscellan. (CeQur Simplicity Transfer Knitter) As directed for use with CeQur insulin patch [Disposable bed pads As directed] docusate sodium 100 mg PO BID PRN [electric recliner head and foot As directed] [facial-body wipes As directed] famotidine 40 mg PO DAILY PRN ferrous sulfate 325 mg PO DAILY flash glucose scanning reader (FreeStyle Frank 2 [place]) As directed flash glucose sensor (FreeStyle Frank 2 Sensor kit) DIRECTED CHANGE EVERY 14 DAYS gabapentin 600 mg PO TID [Hospital bed As directed] insulin glargine (Lantus Solostar U-100 Insulin) 38 units (0.38 mL) subcut QPM 30 days insulin lispro 10-14 units with meals, 2-4 with snack for use with CeQur. Each click equals 2 units subcutaneously use as directed; 30 days [liners for incontinence Use As directed] losartan 25 mg PO DAILY [Male day & night urinal As directed] melatonin 6 mg (2 x 3 mg) PO BEDTIME PRN metoprolol succinate ER 50 mg PO DAILY miscellaneous medical supply Wheelchair cushion for wheelchair, use as directed miscellaneous medical supply Raised toilet seat, use as directed ondansetron 4 mg PO Q6-8H PRN pantoprazole 40 mg PO DAILY@0630 pen needle, diabetic (BD Ultra-Fine Short Pen Needle) USE MARÍA LO INDICADO BENNETT VECES AL LIZZIE ANTES DE LAS COMIDAS polyethylene glycol 3350 17 grams PO DAILY [Raised toilet seat As directed] [recliner As directed] [Semi electric hospital bed Use As directed NS] sertraline 100 mg PO BEDTIME sertraline 75 mg PO BEDTIME spironolactone 25 mg PO DAILY [Standard Wheelchair with cushion and foot rest As directed] [Toilet rails As directed] [walker with wheels As directed] [Wheelchair cushion As directed] HPI Comments Details: Patient is a 58 year old male with DM type 2 here for follow up. Diagnosed approx 1994 Medical history: Diabetes type 2, hypertension, hyperlipidemia, coronary artery disease status post NSTEMI, status post PCI, chronic pancreatitis, BKA x2 He is here today with his son who assists with interpreting as needed. Hemoglobin A1c 10.5% up from 9.2% 05/31/24 up from January 2024 6.8%. Endorses 100% medication compliance. Denies any dietary or lifestyle changes Current medications Diabetes medications: -Tresiba 38 (increased from Lantus 34) units daily -Lispro (supposed to be via cequr but says he missed training and using traditional breakfast 10-14 units/lunch 10-14 units/supper 8-10 units/2-4 with snack -Farxiga 10 mg Had been on metformin which was stopped during episode of pancreatitis. Micro and macrovascular complications: +retinopathy: Has upcoming appointment with retinal specialist in [place], , +neuropathy, +CAD, Freestyle frank sensor 2 -did not bring Last eye exam: No nephropathy: On ARB 11/2023 eGFR>60 microalbumin 17.0 Has neuropathy Symptoms reported: + numbness, tingling no open areas to stumps Hypoglycemia: denies recent but has had in the past Hyperglycemia: denies urinary frequency, nocturia, polydypsia Diet; [place] with cream cheese and coffee, boiled egg, occasional Monday Lunch/supper: Small amount of rice, beans Occasional sweets Spray Machine Loader - CDE education: 04/2023 ROS CONSTITUTIONAL: Denies weight loss, fever and chills. HEENT: Denies changes in vision and hearing. RESPIRATORY: Denies SOB and cough. CV: Denies palpitations and CP GI: Denies abdominal pain, nausea, vomiting and diarrhea. : Denies dysuria and urinary frequency. MSK: Denies new myalgia and joint pain. SKIN: Denies rash and pruritus. NEUROLOGICAL: Denies headache PSYCHIATRIC: Denies recent changes in mood. PHYSICAL EXAM: GENERAL: Alert and oriented x 3. NAD EYES: EOMI. Anicteric. HENT: Moist mucous membranes. No scleral icterus. No cervical lymphadenopathy. LUNGS: Clear to auscultation bilaterally. CARDIOVASCULAR: Regular rate and rhythm. No murmur. No JVD. ABDOMEN: Soft, non-tender +bs EXTREMITIES: No edema. Non-tender. SKIN: No rashes or lesions. Warm. NEUROLOGIC: No focal neurological deficits. CN II-XII grossly intact PSYCHIATRIC: Cooperative. Appropriate mood and affect [facility] Medical History Hx of non-ST elevation myocardial infarction (NSTEMI) Major depression, recurrent Paroxysmal atrial fibrillation History of alcohol abuse Anemia Essential hypertension PAD (peripheral artery disease) 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 Diabetes mellitus with retinopathy, with long-term current use of insulin Heartburn symptom Erectile dysfunction Dyslipidemia Amputation stump complication Hyperlipidemia Chronic pancreatitis Neuropathy Kidney calculus CAD (coronary artery disease) Arthritis Surgical History Status post amputation of left foot through metatarsal bone History of open heart surgery S/P angiogram of extremity (06/28/23) History of right below knee amputation Status post below-knee amputation S/P debridement Hx of lithotripsy Status post laparoscopic cholecystectomy Hx of heart artery stent Family History Mother [place] (myocardial infarction), Onset Age: 64 Diabetes mellitus HTN (hypertension) Maternal Grandmother Diabetes mellitus Social History Household Members: Spouse Household Members Other:: and daughter Housing: Apartment Do you presently have visiting nurse or other home services: Yes Alcohol intake: former Comment: Bilateral BKA's. Patient Tobacco Use Status: Former Tobacco user Tobacco use type: Cigarette Cigarette Packs Per Day: 0.01 Cigarettes Per Day: 3 Years Smoked: 30 e-Cigarette/Vaping Use: Never Used Second Hand Smoke Exposure: No Substance Use Type: Marijuana Advance Directives Date on File: 04/17/21 service: No Current occupational status: unemployed and disabled Cognitive needs: No Hearing needs: No Vision needs: Yes Physical Exam Vital Signs: Last Vital Signs Pulse 85 10/09/24 15:22 BP 132/82 10/09/24 15:22 Results AMB Hemoglobin A1c AMB Hemoglobin A1c 10.5 % Last Edit by RASHIDA Shahid on 10/09/24 15:3 9 Results Reviewed Results Reviewed: Laboratory Last Values Glucose (Clinic) 264 mg/dL (60-115) H 10/09/24 15:24 Hgb A1c (Clinic) 10.5 % (4.0-6.0) H 10/09/24 15:39 Assessment & Plan Assessment & Plan (1) 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: Code(s): E11.42 - Type 2 diabetes mellitus with diabetic polyneuropathy; E11.65 - Type 2 diabetes mellitus with hyperglycemia Category: Medical Plan: Unclear why A1C continues to increase with reported medication compliance and increasing dosing-especially hard to tell without CGM data Advised to follow up short term with date for review. Increase tresiba to 40 units. Slight increase in meal time insulin from 10-14 to 12-16. patient denies any low readings. Orders: Orders AMB Hemoglobin A1c 10/09/24 E11.42 - Type 2 diabetes mellitus with diabetic polyneuropathy, E11.65 - Type 2 diabetes mellitus with hyperglycemia Medications: New insulin degludec (Tresiba FlexTouch U-100 insulin) 40 units (0.4 mL) subcut BEDTIME 45 mL 3RF E11.42 - Type 2 diabetes mellitus with diabetic polyneuropathy, E11.65 - Type 2 diabetes mellitus with hyperglycemia Changed From insulin lispro 10-14 units with meals, 2-4 with snack for use with CeQur. Each click equals 2 units subcutaneously use as directed; 30 days 20 mL 6RF To insulin lispro 12-16 units with meals, 2-4 with snack for use with CeQur. Each click equals 2 units subcutaneously use as directed; 20 mL 6RF 30 days Discontinued insulin glargine (Lantus Solostar U-100 Insulin) Discontinued Reason: Doctor's Order 38 units (0.38 mL) subcut QPM 30 days 12 mL 4RF Coding Level of Care Code Est Pt Level 4 (23543) Diagnoses 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 E11.42; E11.65
[2024-10-09 15:22] VITALS: BP 132/82; PULSE 85
[2024-10-09 15:29] LABS: Glucose, Whole Blood 264 mg/dL (60-115)
--- OUTSIDE RECORDS SUMMARY | 2024-10-09 16:12 | XMS_ITS | Clinical Summary ---
Author Organization [facility] Address [address] [place] [address] Care Team Providers Care Plant Breeder Scientist Name Role Phone Jannette Mcclain MD Primary Care Provider Medical History Medical History Date Comments Type II or unspecified type diabetes mellitus without mention of complication, uncontrolled DX:Type II or unspecified t ype diabetes mellitus without mention of complication, uncontrolled Essential hypertension, benign D X:Essential hypertension, benign High cholesterol DX:High cholest dannie Erectile dysfunction 02/19/2015 DX:Erectile dysfunction Social History Tobacco Use Types Packs/Day Years Used Date Smoking Tobacco: Former Smokeless Tobacco: Never Alcohol Use Standard Drinks/Week Comments No 0 (1 standard drink = 0.6 oz pur e alcohol) Sex and Gender Information Value Date Recorded Sex Assigned at Not on file Legal Sex Male 4:50 AM EST Gender Identity Not on file Sexual Orientation Not on file Obstetrics History Plan of Treatment Health Maintenance Due Date Last Done Comments Diabetes: Annual GFR (Glomer ular Filtration Rate) 1966 Diabetes: Annual Foot Exam 1976 Diabetes: Annual Retina Eye Exam 1976 DTaP,Tdap,and Td Vaccines (1 - Tdap) 1985 Hepatitis B Vaccines (1 of 3 - 19+ 3-dose series) 1985 Zoster Vaccines (1 of 2) 2016 Cholesterol Screening (Lipid Panel) 07/31/2022 Colorectal Cancer Screening: Colonoscopy 07/31/2022 Depression Screening 07/31/2022 HIV Screening 07/31/2022 Hepatitis C Screening 07/31/2022 Social Influencers of Health Screening 07/31/2022 Diabetes: Annual Urine Albumin-Creatinine Ratio (uACR) 08/10/2022 Diabetes: Blood Sugar Contro l Test (HGBA1C) 08/10/2022 COVID-19 Vaccine (1 - 2023-2 5 season) 2024 Influenza Vaccine (#1) 2024 10/12/2013 HIB Vaccines Aged Out No longer eligi ble based on patient's age to complete this topic HPV Vaccines Aged Out No longer eligi ble based on patient's age to complete this topic Hepatitis A Vaccines Aged Out No long er eligible based on patient's age to complete this topic IPV Vaccines Aged Out No longer eligi ble based on patient's age to complete this topic MMR Vaccines Aged Out No longer eligi ble based on patient's age to complete this topic Meningococcal ACWY Vaccine Aged Out N o longer eligible based on patient's age to complete this topic Pneumococcal Vaccine: Pediat rics (0 to 5 Years) and At-Risk Patients (6 to 64 Years) Aged Out No longer eligi ble based on patient's age to complete this topic RSV Immunization Patients Un kendrick 20 months Aged Out No longer eligible b ased on patient's age to complete this topic Varicella Vaccines Aged Out No longer eligible based on patient's age to complete this topic Care Teams Plant Breeder Scientist Relationship Specialty Start Date End Date Jannette Mcclain MD [address] [facility] [address] [place], [place] PCP - General Internal Medicine 03/29/21
--- OUTSIDE RECORDS SUMMARY | 2024-10-09 16:12 | XMS_ITS | Clinical Summary ---
Author Organization [facility] Address [address] [place] [address] Care Team Providers Care System Support Analyst Name Role Phone Unavailable Primary Care Provider Unavailabl e Source Comments PLEASE NOTE, if this patient is a minor, it may be UNLAWFUL to discuss sensitive information that is contained in these records (such as FAMILY PLANNING, MENTAL HEALTH or SUBSTANCE ABUSE) with the minor patient's parent or other person without the patient's specific authorization.[facility] Immunizations Name Administration Dates Next Due Moderna COVID-19 Vaccine, re d cap blue label, 12+ Primary Series 12/31/2020,11/23/2020 Social History Tobacco Use Types Packs/Day Years Used Date Smoking Tobacco: Never Assessed Social Connections Answer Date Recorded Social Connections and Isolation 0 11/23/2020 Financial Resource Strain Answer Date R ecorded Financial Resource Strain 0 2020 Stress Answer Date Recorded Stress 0 11/23/2020 Physical Activity Answer Date Recorded Physical Activity 0 11/23/2020 Food Insecurity Answer Date Recorded Food 0 11/23/2020 Transportation Needs Answer Date Record ed Transportation 0 11/23/2020 Housing Stability Answer Date Recorded Housing 0 11/23/2020 Safety and Environment Answer Date Rogerio rded Safety 0 11/23/2020 Utilities Answer Date Recorded Utilities 0 11/23/2020 Employment Answer Date Recorded Employment 0 11/23/2020 Sex and Gender Information Value Date Recorded Sex Assigned at Not on file Legal Sex Male 10:26 AM PDT Gender Identity Not on file Sexual Orientation Not on file Plan of Treatment Health Maintenance Due Date Last Done Comments Diabetes Screening 1966 Hepatitis C Screening 1966 Lipid Screening 1966 Tobacco Screening 1966 HIV Screening 1981 Annual Preventive Care Visit 1984 Hypertension Screening (#1) 1984 Imm-Hepatitis B (1 of 3 - 19 + 3-dose series) 1985 CT Colonography 2011 Colonoscopy 2011 Colorectal Cancer Screening 2011 FIT/gFOBT 2011 Fecal DNA 2011 Flexible Sigmoidoscopy 2011 Imm-Zoster, Recombinant (1 of 2) 2016 Alcohol and Drug Screen 08/28/2023 Depression Annual Screen 08/28/2023 [id number] ( season) 2024 021, 11/23/2020 Imm-Influenza (#1) 2024 07/09/2019, 0 04/30/2019, 07/27/2018, Additional history exists Imm-DTaP/Tdap/Td (3 - Td or Tdap) 08/28/2030 , 07/27/2018 Insurance [employer] Member Subscriber Plan / Payer (Ef fective 2020-Present) Name:Pierre Dukes Relation to Subscriber:Self Name:Pierre Dukes Payer ID:[id number] Type:Indemnity Address: [address] [address]
--- OUTSIDE RECORDS SUMMARY | 2024-10-09 16:12 | XMS_ITS | Patient Health Record ---
[facility] Address [address] [facility] [place] [address] Care Team Providers Care Grounds Crew Supervisor Name Role Phone Medina CALDWELL, Shanta Mosher Primary Care Provider Un available Talib Aguilar Unavailable [phone] Allergies No Known Allergies Reason For Referral No Information Medications Medication SIG (Take, Route, Frequency, Duration) Notes Start Date End Date Status Brilinta Active metFORMIN HCl 500 MG 1 tablet with a sri l Orally Once a day for 30 day(s) Active Lisinopril 10 MG 1 tablet Orally Once a day for 30 day(s) Active HumaLOG Active Gabapentin 400 MG Oral for 30 Active Metoprolol & Diet Manage Prod Active metFORMIN HCl Active Gabapentin 800 MG 1 tablet Orally Once a day for 30 day(s) Active Lantus Active Lantus 100 UNIT/ML as directed Subcutaneous Active HumaLOG 100 UNIT/ML as directed Subcutaneous Active Omeprazole 40 MG Oral for 30 A ctive Work Note . . . patient is disab led from work until further notice Active Aspirin 81 MG 1 tablet Orally Once a day for 30 day(s) Active Insulin Active Brilinta 90 MG 1 tablet Orally Twic e a day for 30 day(s) Active Immunizations Vaccine Route Administration Date Status Comme nts COVID-19 Moderna Vaccine Unknown 12/31/2020 Administere d 11/23/20 1# Influenza Unknown 01/04/2021 Administered Social History Tobacco Use: Social History Observation Description Date Details (start date - stop date) Current Smoker NA - NA Tobacco Use/Smoking Question Answer Notes Are you a: current smoker Alcohol Screen Question Answer Notes Did you have a drink containing alcohol in the p ast year? No Points 0 Interpretation Negative Tobacco use other than smoking: Question Answer Notes Are you an other tobacco user? No Problems Problem Type SNOMED Code ICD Code Onset Dates Problem Status W/U Status Risk Notes Problem Non-pressure chronic ulcer of other part of right foot with fat layer exposed (L97.512) Active confirmed Problem Chronic ulcer of foot (882899981) Non-pressure chronic ulcer of other part of left foot with fat layer exposed (L97.522) Active confirmed Problem Non-pressure chronic ulcer of other part of left foot limited to breakdown of skin (L97.521) Active confirmed Problem Non-pressure chronic ulcer of other part of right foot limited to breakdown of skin (L97.511) Active confirmed Problem Polyneuropathy due to diabetes mellitus type I (151797191) Type 1 diabetes mellitus with diabetic polyneuropathy (E10.42) Active confirmed Plan Of Treatment Pending Test Test Name Order Date X ray : Foot, left 3V 01/20/2021 X ray : Foot, right 3V 01/20/2021 [id number] Debride <25 sq cm 01/04/2021 [id number] SKIN/TISSUE 01/04/2021 [id number] SKIN/TISSUE 01/20/2021 [id number] SKIN LESIONS, OVER 4 01/05/20 21 Insurance Providers Payer Name Payer Address Payer Phone Subscriber Number Group Number Insured Name Patient Relationship to Insured Coverage Start Date Coverage End Date [facility] [address] [place] [address] [id number] Pierre Dukes Self - patient is the insured Medical (General) History Medical History History ICD Code Arthritis Diabetic Heart disease High blood pressure Surgical History Surgery Date(Month/Year) Heart stent gall bladder Hospitalization History Reason Date(Month/Year) [facility] /acute pancreatitis 2020
== END 2024-10-09 15:51 | disposition home or self-care (01) ==
PROVIDERS: PCP Internal Medicine; Visit Provider Internal Medicine
DX: E11.42 Type 2 diabetes mellitus with diabetic polyneuropathy (principal); E11.65 Type 2 diabetes mellitus with hyperglycemia

== ENCOUNTER → 2024-10-09 15:07 | Outpatient (BNVA) | payer MEDICARE, SELFPAY | PROVIDERS: PCP Internal Medicine; Visit Provider Internal Medicine | DX: E11.42 Type 2 diabetes mellitus with diabetic polyneuropathy (principal); E11.65 Type 2 diabetes mellitus with hyperglycemia | CPT/HCPCS: 82947; 83036; 99212 ==

== ENCOUNTER 2024-11-26 13:06 | Outpatient (AMB) | payer MEDICARE, SELFPAY ==
--- NOTE | 2024-11-26 13:20 | MHC.AMDMED ---
Intake Intake Visit Reasons: Cequr Manager Financial Required: Yes Manager Financial Language: [employer] Developer Name[place] [facility] [place] Interpreted: non-clinical & clinical Accompanied by: Son Allergies No Known Allergies Allergy (Verified 10/09/24 15:13) HPI Comprehensive Diabetes Asmnt Most Recent Diabetes Results: Creatinine 0.87 mg/dL (0.5-1.4) 08/16/24 Blood Urea Nitrogen 18 mg/dL (9-16) H 08/16/24 Sodium 137 mmol/L (135-145) 08/16/24 Potassium 4.3 mmol/L (3.3-5.1) 08/16/24 Chloride 104 mmol/L (96-108) 08/16/24 Carbon Dioxide 21 mmol/L (22-29) L 08/16/24 Calcium 8.8 mg/dL (8.4-10.2) 08/16/24 AST 29 U/L (5-37) 08/16/24 ALT 32 U/L (0-40) 08/16/24 Total Protein 7.6 g/dL (6.5-8.0) 08/16/24 Albumin 3.7 g/dL (3.5-5.0) 08/16/[facility] Medical History Hx of non-ST elevation myocardial infarction (NSTEMI) Major depression, recurrent Paroxysmal atrial fibrillation History of alcohol abuse Anemia Essential hypertension PAD (peripheral artery disease) 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 Diabetes mellitus with retinopathy, with long-term current use of insulin Heartburn symptom Erectile dysfunction Dyslipidemia Amputation stump complication Hyperlipidemia Chronic pancreatitis Neuropathy Kidney calculus CAD (coronary artery disease) Arthritis Surgical History Status post amputation of left foot through metatarsal bone History of open heart surgery S/P angiogram of extremity (06/28/23) History of right below knee amputation Status post below-knee amputation S/P debridement Hx of lithotripsy Status post laparoscopic cholecystectomy Hx of heart artery stent Family History Mother [place] (myocardial infarction), Onset Age: 64 Diabetes mellitus HTN (hypertension) Maternal Grandmother Diabetes mellitus Social History Household Members: Spouse Household Members Other:: and daughter Housing: Apartment Do you presently have visiting nurse or other home services: Yes Alcohol intake: former Comment: Bilateral BKA's. 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: Code(s): E11.42 - Type 2 diabetes mellitus with diabetic polyneuropathy; E11.65 - Type 2 diabetes mellitus with hyperglycemia Plan: Pt at visit Isai Simplicity Training Pt brought CeQue patch, isotope technician, vial of mealtime insulin and change by stickers Patient's prescription reads take Instructed patient to wash your hands Demonstrated for patient how to fill syringe from vial, and insert, needle to fill patch Then remove air bubbles from patch, by viewing through clear window below blue cap To prime patch after air bubble has been removed proceed with 4 clicks Apply placed sticker, to patch, count forward 4 days Prepare site where you will place patch with either alcohol or soap and water, avoid waist band and belt line Do not insert through scar tissue, piercings and tattoos be sure to place patch at least 2 in from belly button. If you have excess body hair adhesive will attach better to clean shaven skin Instructed patient to be sure to rotate patch regularly Place patch in isotope technician while holding isotope technician with both hands use thumbs to push down on blue cap in on patch Push until you hear a click Instructed patient not to unlock green button until isotope technician is against prepared site Squeeze at both ends a blue cap and carefully began to pull cap, this should also remove adhesive pad liner. Be cautious of exposed needle, check to make sure needle is not bent Please patch on your body, slide yellow safety and press green button down Press isotope technician firmly for 10 seconds, remove isotope technician by lifting it away To remove needle squeeze clear sides of registered private duty nurse at the base Discard needle in sharps container Press down firmly on patch with palm of your hand for 10 seconds Patient left visit with CeQue patch in place Instructed patient on how to administer mealtime insulin, instructed patient that each click is equal to 2 units of mealtime insulin Patient will follow-up with conservation educator as instructed Portions of this note were created using voice recognition software, please excuse any words or phrases that may have been misinterpreted. 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
--- OUTSIDE RECORDS SUMMARY | 2024-11-26 15:21 | XMS_ITS | Patient Health Record ---
[facility] Address [address] [facility] [place] [address] Care Team Providers Care Apartment Leasing Specialist Name Role Phone Medina CALDWELL, Shanta Mosher Primary Care Provider Un available Talib Aguilar Unavailable [phone] Allergies No Known Allergies Reason For Referral [...] Active confirmed Problem Chronic ulcer of foot (964467495) Non-pressure chronic ulcer of other part of left foot with fat layer exposed (L97.522) Active confirmed Problem Non-pressure chronic ulcer of other part of left foot limited to breakdown of skin (L97.521) Active confirmed Problem Non-pressure chronic ulcer of other part of right foot limited to breakdown of skin (L97.511) Active confirmed Problem Polyneuropathy due to diabetes mellitus type I (090911009) Type 1 diabetes mellitus with diabetic polyneuropathy (E10.42) Active confirmed Plan Of Treatment Pending Test Test Name Order Date X ray : Foot, left 3V 01/20/2021 X ray : Foot, right 3V 01/20/2021 [id number]- Debride <25 sq cm 01/04/2021 [id number] SKIN/TISSUE 01/04/2021 [id number] SKIN/TISSUE 01/20/2021 [id number] SKIN LESIONS, OVER 4 01/05/20 21 Insurance Providers Payer Name Payer Address Payer Phone Subscriber Number Group Number Insured Name Patient Relationship to Insured Coverage Start Date Coverage End Date [facility] [address] [place] [address] [id number] Pierre Dukes Self - patient is the insured Medical (General) History Medical History History ICD Code Arthritis Diabetic Heart disease High blood pressure Surgical History Surgery Date(Month/Year) Heart stent gall bladder Hospitalization History Reason Date(Month/Year) [facility] /acute pancreatitis 2020
--- OUTSIDE RECORDS SUMMARY | 2024-11-26 15:21 | XMS_ITS | Clinical Summary ---
Author Organization [facility] Address [address] [place] [address] Care Team Providers Care Field Sampling Technician Name Role Phone Unavailable Primary Care Provider Unavailabl e Source Comments PLEASE NOTE, if this patient is a minor, it may be UNLAWFUL to discuss sensitive information that is contained in these records (such as FAMILY PLANNING, MENTAL HEALTH or SUBSTANCE ABUSE) with the minor patient's parent or other person without the patient's specific authorization.[facility] Immunizations Immunization Administration Dates Next Due Moderna COVID-19 Vaccine, [...] 1966 Tobacco Screening 1966 HIV Screening 1981 Hypertension Screening (#1) 1984 Imm-Hepatitis B (1 of 3 - 19 + 3-dose series) 1985 CT Colonography 2011 Colonoscopy 2011 Colorectal Cancer Screening 2011 FIT/gFOBT 2011 Fecal DNA 2011 Flexible Sigmoidoscopy 2011 Imm-Zoster, Recombinant (1 of 2) 2016 [id number] ( season) 2024 021, 11/23/2020 Imm-Influenza (#1) 2024 07/09/2019, 0 04/30/2019, 07/27/2018, Additional history exists Alcohol and Drug Screen 08/28/2024 Depression Annual Screen 08/28/2024 Imm-DTaP/Tdap/Td (3 - Td or Tdap) 08/28/2030 021, 07/27/2018 Insurance [employer] Member Subscriber Plan / Payer (Ef fective 2020-Present) Name:Pierre Dukes Relation to Subscriber:Self Name:Pierre Dukes Payer ID:[id number] Type:Indemnity Address: [address] [address]
--- OUTSIDE RECORDS SUMMARY | 2024-11-26 15:21 | XMS_ITS | Clinical Summary ---
Author Organization [facility] Address [address] [place] [address] Care Team Providers Care Wallpaperer Helper Name Role Phone Jannette Mcclain MD Primary Care Provider [phone] Medical History Medical History Date Comments Type [...] Health Maintenance Due Date Last Done Comments DTaP,Tdap,and Td Vaccines (1 - Tdap) 1985 Hepatitis B Vaccines (1 of 3 - 19+ 3-dose series) 1985 Pneumococcal Vaccine: 50+ Ye ars (1 of 1 - PCV) 2016 Zoster Vaccines (1 of 2) 2016 COVID-19 Vaccine ( - 2023-2 5 season) 2024 Influenza Vaccine [...] patient's age to complete this topic Meningococcal B Vacine Aged Out No lo nger eligible based on patient's age to complete [...] age to complete this topic Care Teams Wallpaperer Helper Relationship Specialty Start Date End Date Jannette Mcclain MD [facility] [address] PCP - General Internal Medicine 03/29/21
== END 2024-11-26 13:47 | disposition home or self-care (01) ==
LOC: HO.ENCR 13:06
PROVIDERS: PCP Internal Medicine; Visit Provider Registered Nurse Diabetes Educator
DX: E11.42 Type 2 diabetes mellitus with diabetic polyneuropathy (principal); E11.65 Type 2 diabetes mellitus with hyperglycemia

== ENCOUNTER → 2024-11-26 13:06 | Outpatient (BNVA) | payer MEDICARE, SELFPAY | PROVIDERS: PCP Internal Medicine; Visit Provider Registered Nurse Diabetes Educator | DX: E11.42 Type 2 diabetes mellitus with diabetic polyneuropathy (principal); E11.65 Type 2 diabetes mellitus with hyperglycemia; Z79.4 Long term (current) use of insulin | CPT/HCPCS: 99211 ==

== ENCOUNTER 2024-11-29 08:26 | Outpatient (AMB) | payer MEDICARE, SELFPAY ==
--- OUTSIDE RECORDS SUMMARY | 2024-11-29 08:46 | XMS_ITS | Clinical Summary ---
Author Organization [facility] Address [address] [place] [address] Care Team Providers Care Credit Representative Name Role Phone Unavailable Primary Care Provider [...] Health Maintenance Due Date Last Done Comments Anxiety Screening 1966 Diabetes Screening 1966 Hepatitis C Screening 1966 Lipid Screening 1966 Tobacco Screening 1966 HIV Screening 1981 Hypertension Screening (#1) 1984 Imm-Hepatitis B (1 of 3 - 19 + 3-dose series) 1985 CT Colonography 2011 Colonoscopy 2011 Colorectal Cancer Screening 2011 FIT/gFOBT 2011 Fecal DNA 2011 Flexible Sigmoidoscopy 2011 Imm-Zoster, Recombinant (1 of 2) 2016 [id number] ( season) 2024 021, 11/23/2020 Imm-Influenza (#1) 2024 07/09/2019, 0 04/30/2019, 07/27/2018, Additional history exists Alcohol and Drug Screen 08/28/2024 Depression Annual Screen 08/28/2024 Imm-DTaP/Tdap/Td (3 - Td or Tdap) 08/28/2030 , 07/27/2018 Insurance [employer] Member Subscriber Plan / Payer (Ef fective 2020-Present) Name:Pierre Dukes Relation to Subscriber:Self Name:Pierre Dukes Payer ID:[id number] Type:Indemnity Address: [address] [address]
--- OUTSIDE RECORDS SUMMARY | 2024-11-29 08:46 | XMS_ITS | Clinical Summary ---
Author Organization [facility] Address [address] [place] [address] Care Team Providers Care Supervisor Stripping Name Role Phone Jannette Mcclain MD Primary Care Provider [phone] Medical History Medical History Date Comments Type [...] age to complete this topic Care Teams Supervisor Stripping Relationship Specialty Start Date End Date Jannette Mcclain MD [facility] [address] PCP - General Internal Medicine 03/29/21
--- OUTSIDE RECORDS SUMMARY | 2024-11-29 08:46 | XMS_ITS | Patient Health Record ---
Author [facility] Address [address] [facility] [place] [address] Care Team Providers Care Home Designer Name Role Phone Medina CALDWELL, Shanta Mosher Primary Care Provider Un available Talib Aguilar Unavailable [phone] Allergies No Known Allergies Reason For Referral [...] Active confirmed Problem Chronic ulcer of foot (573263392) Non-pressure chronic ulcer of other part of left foot with fat layer exposed (L97.522) Active confirmed Problem Non-pressure chronic ulcer of other part of left foot limited to breakdown of skin (L97.521) Active confirmed Problem Non-pressure chronic ulcer of other part of right foot limited to breakdown of skin (L97.511) Active confirmed Problem Polyneuropathy due to diabetes mellitus type I (399288397) Type 1 diabetes mellitus with diabetic polyneuropathy (E10.42) Active confirmed Plan Of Treatment Pending Test Test Name Order Date X ray : Foot, left 3V 01/20/2021 X ray : Foot, right 3V 01/20/2021 [id number]- Debride <25 sq cm 01/04/2021 [id number] SKIN/TISSUE 01/04/2021 [id number] SKIN/TISSUE 01/20/2021 [id number] SKIN LESIONS, OVER 4 01/05/20 21 Insurance Providers Payer Name Payer Address Payer Phone Subscriber Number Group Number Insured Name Patient Relationship to Insured Coverage Start Date Coverage End Date [facility] [address] [place] [address] [phone] [id number] Pierre Dukse Self - patient is the insured Medical (General) History Medical History History ICD Code Arthritis Diabetic Heart disease High blood pressure Surgical History Surgery Date(Month/Year) Heart stent gall bladder Hospitalization History Reason Date(Month/Year) [facility] /acute pancreatitis 2020
--- NOTE | 2024-11-29 09:11 | A.OFFPC_ITS ---
Intake Visit Reasons: DME supplies Manager Process Improvement Required: Yes Manager Process Improvement Language: Indonesian Allergies No Known Allergies Allergy (Verified 11/29/24 09:53) Medication List - Last Reconciled 11/29/24 by Shanta Haney MD acetaminophen 650 mg (2 x 325 mg) PO TID amiodarone 200 mg PO BID aspirin 81 mg PO DAILY aspirin 81 mg PO DAILY atorvastatin 80 mg PO BEDTIME atropine 1% drps ophthalmic (eye) [Bedside commode As directed] blood sugar diagnostic (FreeStyle Lite Strips) As directed blood-glucose meter (FreeStyle Lite Meter kit) As directed bolus insulin pump, 200 unit (CeQur Simplicity) As directed 4 day insulin patch clopidogrel 75 mg PO DAILY diabetic supplies, miscellan. (CeQur Simplicity Food Preparer) As directed for use with CeQur insulin patch [Disposable bed pads As directed] docusate sodium 100 mg PO BID PRN [electric recliner head and foot As directed] [facial-body wipes As directed] famotidine 40 mg PO DAILY PRN Farxiga (dapagliflozin propanediol) 10 mg PO QAM NS ferrous sulfate 325 mg PO DAILY flash glucose scanning reader (FreeStyle Frank 2 [place]) As directed flash glucose sensor (FreeStyle Frank 2 Sensor kit) DIRECTED CHANGE EVERY 14 DAYS gabapentin 600 mg PO TID [Hospital bed As directed] insulin degludec (Tresiba FlexTouch U-100 insulin) 40 units (0.4 mL) subcut BEDTIME insulin degludec (Tresiba FlexTouch U-200 insulin) units subcut insulin lispro 12-16 units with meals, 2-4 with snack for use with CeQur. Each click equals 2 units subcutaneously use as directed; 30 days [liners for incontinence Use As directed] losartan 25 mg PO DAILY [Male day & night urinal As directed] melatonin 6 mg (2 x 3 mg) PO BEDTIME PRN metoprolol succinate ER 50 mg PO DAILY miscellaneous medical supply Wheelchair cushion for wheelchair, use as directed miscellaneous medical supply Raised toilet seat, use as directed ondansetron 4 mg PO Q6-8H PRN pantoprazole 40 mg PO DAILY@0630 pen needle, diabetic (BD Ultra-Fine Short Pen Needle) USE MARÍA LO INDICADO BENNETT VECES AL LIZZIE ANTES DE LAS COMIDAS polyethylene glycol 3350 17 grams PO DAILY [Raised toilet seat As directed] [recliner As directed] [Semi electric hospital bed Use As directed NS] sertraline 100 mg PO BEDTIME sertraline 75 mg PO BEDTIME spironolactone 25 mg PO DAILY [Standard Wheelchair with cushion and foot rest As directed] [Toilet rails As directed] [walker with wheels As directed] [Wheelchair cushion As directed] Tobacco use date assessed: 09/20/24 Dental Screening Dental Screen Date: 09/20/24 HPI DME supplies HPI Details Telehealth visit made with 59-year-old male with poorly controlled type 2 diabetes mellitus, hypertension, hyperlipidemia, coronary artery disease with history of STEMI, paroxysmal atrial fibrillation, chronic pancreatitis, peripheral vascular disease s/p bilateral lower leg amputations, and depression, here today requesting prescription for wheelchair and a semi electric hospital bed. He is currently being fitted for prosthetic legs and will be going to physical therapy. He He is currently being followed by [facility] endocrine clinic with diabetes mellitus not well controlled, last hemoglobin A1con 10/09/24 at 10.5% He has been started on insulin pump in addition to his insulin and Farxiga. He has a hard time moving around due to a faulty wheelchair, requesting for prescription for a new wheelchair. At present, he is confined most of the on his bed, as he has difficulty with transferring from his bed to wheelchair, and to chair, having a repositioning in bed. He also has GERD and needs his head of the bed elevated when sleeping. Patient has his daughters taking care of him at home, but they have a hard time with lifting him from bed to his wheelchair and assisting him with his toileting and bathing. . [facility] Medical History Hx of non-ST elevation myocardial infarction (NSTEMI) Major depression, recurrent Paroxysmal atrial fibrillation History of alcohol abuse Anemia Essential hypertension PAD (peripheral artery disease) 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 Diabetes mellitus with retinopathy, with long-term current use of insulin Heartburn symptom Erectile dysfunction Dyslipidemia Amputation stump complication Hyperlipidemia Chronic pancreatitis Neuropathy Kidney calculus CAD (coronary artery disease) Arthritis Surgical History Status post amputation of left foot through metatarsal bone History of open heart surgery S/P angiogram of extremity (06/28/23) History of right below knee amputation Status post below-knee amputation S/P debridement Hx of lithotripsy Status post laparoscopic cholecystectomy Hx of heart artery stent Family History Mother [place] (myocardial infarction), Onset Age: 64 Diabetes mellitus HTN (hypertension) Maternal Grandmother Diabetes mellitus Social History Household Members: Spouse Household Members Other:: and daughter Housing: Apartment Do you presently have visiting nurse or other home services: Yes Alcohol intake: former Comment: Bilateral BKA's. Patient Tobacco Use Status: Former Tobacco user Tobacco use type: Cigarette Cigarette Packs Per Day: 0.01 Cigarettes Per Day: 3 Years Smoked: 30 e-Cigarette/Vaping Use: Never Used Second Hand Smoke Exposure: No Substance Use Type: Marijuana Advance Directives Date on File: 04/17/21 service: No Current occupational status: unemployed and disabled Cognitive needs: No Hearing needs: No Vision needs: Yes Questionnaire Thrive Questionnaire Date Thrive assessed: 11/29/24 I am a: Patient What is your living situation today?: I have a steady place to live Within the past 12 months, did the food you bought not last and you didn't have the money to get more?: Sometimes True Within the past 12 months, did you worry whether your food would run out before you got money to buy more?: Often true Do you have trouble paying for medicines?: No Do you have trouble getting transportation to medical appointments?: No Do you have trouble paying your heating and electricity bill?: Yes Do you have trouble taking care of your child, family member or friend?: No Do you have trouble with day-to-day activities such as bathing, preparing meals, shopping, managing finances, etc.?: Yes Are you currently unemployed and looking for a job?: No Are you interested in more education?: No Currently or been in a relationship where the following occur: No concerns reported THRIVE Score: 3 AUDIT C Alcohol Use Questionnaire (AUDIT-C) 1. How often do you have a drink containing alcohol?: Never 3. How often do you have six or more drinks on one occasion?: Never Total Score: 0 Score Reviewed/Action Taken: Yes NASRIN-7 AMB Questionnaire NASRIN-7 Date NASRIN - 7 assessed: 09/20/24 Source: Developed by Drs. William Burton, Jayla Donnelly, Joesph Fay and colleagues, with an educational miriam from [employer]. Review of Systems Const Denies fever(s), Denies malaise and Denies weakness ENT Reports no additional complaints Card Denies chest pain and Denies dyspnea Resp Denies cough and Denies dyspnea GI Denies abdominal pain and Reports heartburn (Currently on pantoprazole) Musc Denies muscle cramps and Denies muscle weakness Skin/Breast Denies skin ulcer and Denies wounds Neuro Denies weakness Psych Reports no additional complaints Endo Reports polyuria [place]/Lymph Denies easy bleeding and Denies easy bruising Aller/Immun Reports no additional complaints Physical exam (Primary Care) Tobacco/Smoking Status: Tobacco use Status Tobacco use date assessed 09/20/24 11/29/24 09:14 Patient Tobacco Use Status Former Tobacco user 11/29/24 09:14 Tobacco use type Cigarette 11/29/24 09:14 e-Cigarette/Vaping Use Never Used 11/29/24 09:14 Thrive Assessment: Date of Thrive Assessment Date Thrive assessed 11/29/24 11/29/24 09:14 Currently or been in a relationship where the following occur: No concerns reported Telehealth Telehealth Telehealth Platform: [facility] Location of provider rendering services: practice address Location of patient: address on file Patient Identification confirmed using: Name, : Yes Telehealth method: video Patient verbally consented to treatment: Yes Patient verbally consented to billing insurance company: Yes Patient informed of any privacy concerns related to visit: Yes Minutes spent on Phone/Video with Pt.: 15 Coding Level of Care Code Tele Est Pt Level 4 (10897) Complex EM visit Add On G2211 Diagnoses Below-knee amputation of left lower extremity S88.112A PAD (peripheral artery disease) I73.9 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 E11.42; E11.65 Pure hypercholesterolemia E78.00 Hyperlipidemia type: pure hypercholesterolemia Paroxysmal atrial fibrillation I48.0 Assessment & Plan Assessment & Plan (1) Below-knee amputation of left lower extremity: Code(s): S88.112A - Complete traumatic amputation at level between knee and ankle, left lower leg, initial encounter Category: Medical Plan: Prescription for wheelchair given 1. Patient has mobility limitations that significantly impair his ability to participate in one or more mobility-related activities of daily living (MRADLs) such as toileting, dressing, grooming and bathing in customary locations in the home. 2. Patient mobility limitation cannot be sufficiently resolved by the use of am appropriate fitted cane or walker. 3. Use of a manual wheelchair will significantly improve the beneficiary's ability to participate in MRADLs and the beneficiary will use it on a regular basis in the home. 4. Patient has not expressed unwillingness to use the manual wheelchair that is provide in the home. 5. Patient has sufficient upper extremity function and other physical and mental capabilities needed to safely self-propel the manual wheelchair that is provided in the home during a typical day, limitations of strength, endurance, range of motion, or coordination presence of pain, or deformity or absence of one or both upper extremities are relevant to the assessment of upper extremity function or 6. Patient has a caregiver who is available, willing and able to provide assistance with the wheelchair. (2) PAD (peripheral artery disease): Comment: 04/14/2021 - atherectomy and plasty of left SFA and popliteal artery, angioplasty of left anterior tibial posterior tibial and peroneal arteries 08/31/2021 - right BKA 11/29/2021 - revision right BKA 06/28/2023 - left anterior tibial plasty and perennial plasty and popliteal plasty 10/24/2023 - left great and 5th toe amputation 11/27/2023 - left transmetatarsal amputation 12/18/2023 - left BKA Code(s): I73.9 - Peripheral vascular disease, unspecified Category: Medical Plan: Prescription written for a semi electric bed, as he requires frequent changes in body position and/or has an immediate need for a change in body position. (3) 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: Code(s): E11.42 - Type 2 diabetes mellitus with diabetic polyneuropathy; E11.65 - Type 2 diabetes mellitus with hyperglycemia Category: Medical Plan: Followed by endocrine clinic, started insulin pump (4) Hyperlipidemia: Code(s): E78.5 - Hyperlipidemia, unspecified Category: Medical Qualifiers: Hyperlipidemia type: pure hypercholesterolemia Qualified Code(s): E78.00 - Pure hypercholesterolemia, unspecified Plan: Continue atorvastatin 80 mg daily and (5) Paroxysmal atrial fibrillation: Code(s): I48.0 - Paroxysmal atrial fibrillation Category: Medical Plan: Followed by cardiology currently on aspirin and clopidogrel
== END 2024-11-29 10:38 | disposition home or self-care (01) ==
LOC: HO.HMCC 08:26
PROVIDERS: PCP Internal Medicine; Visit Provider Internal Medicine
DX: S88.112A Complete traumatic amputation at level between knee and ankle, left lower leg, initial encounter (principal); I73.9 Peripheral vascular disease, unspecified; E11.42 Type 2 diabetes mellitus with diabetic polyneuropathy; E11.65 Type 2 diabetes mellitus with hyperglycemia; I48.0 Paroxysmal atrial fibrillation; E78.00 Pure hypercholesterolemia, unspecified

== ENCOUNTER → 2024-11-29 08:26 | Outpatient (BNVA) | payer MEDICARE, SELFPAY | PROVIDERS: PCP Internal Medicine; Visit Provider Internal Medicine ==

== ENCOUNTER 2025-02-19 13:56 | Outpatient (AMB) | payer MEDICARE, SELFPAY ==
--- NOTE | 2025-02-19 14:08 | A.OFFVIS_ITS ---
Vital Signs 02/19/25 14:16 Height 5 ft 7 in BP 136/82 Blood Pressure Location Rt brachial Position Sitting Pulse 76 Pulse Source Pulse Oximeter Pulse Oximetry (%) 98 Oxygen Delivery Method Room Air Intake Visit Reasons: T2DM Intake Note: Patient presents today for a follow-up on Type 2 Diabetes Mellitus: Last Diabetic eye exam was on: 05/28/2024 Last Podiatry exam was on: Patient does not see a Hospitality Team Member Most recent HbA1c: 10.9%, 02/19/2025 Random Glucose- 225 mg/dL, Today Cost Control Analyst Required: Yes Cost Control Analyst Language: Slate Splitter Services: Cost Control Analyst Offered & Declined Cost Control Analyst Name: BENI Accompanied by: Daughter Allergies No Known Allergies Allergy (Verified 02/19/25 14:26) Medication List - Last Reconciled 02/19/25 by Martina Gray MD acetaminophen 650 mg (2 x 325 mg) PO TID amiodarone 200 mg PO BID aspirin 81 mg PO DAILY aspirin 81 mg PO DAILY atorvastatin 80 mg PO BEDTIME atropine 1% drps ophthalmic (eye) [Bedside commode As directed] blood sugar diagnostic (FreeStyle Lite Strips) As directed blood-glucose meter (FreeStyle Lite Meter kit) As directed bolus insulin pump, 200 unit (CeQur Simplicity) As directed 4 day insulin patch clopidogrel 75 mg PO DAILY diabetic supplies, miscellan. (CeQur Simplicity Furniture Lumber Production Worker) As directed for use with CeQur insulin patch [Disposable bed pads As directed] docusate sodium 100 mg PO BID PRN [electric recliner head and foot As directed] [facial-body wipes As directed] famotidine 40 mg PO DAILY PRN Farxiga (dapagliflozin propanediol) 10 mg PO QAM NS ferrous sulfate 325 mg PO DAILY flash glucose scanning reader (GooddlerStyle Frank 2 [place]) As directed flash glucose sensor (FreeStyle Frank 2 Sensor kit) DIRECTED CHANGE EVERY 14 DAYS gabapentin 600 mg PO TID [Hospital bed As directed] insulin degludec (Tresiba FlexTouch U-100 insulin) 40 units (0.4 mL) subcut BEDTIME insulin degludec (Tresiba FlexTouch U-200 insulin) units subcut insulin lispro 12-16 units with meals, 2-4 with snack for use with CeQur. Each click equals 2 units subcutaneously use as directed; 30 days [liners for incontinence Use As directed] losartan 25 mg PO DAILY [Male day & night urinal As directed] melatonin 6 mg (2 x 3 mg) PO BEDTIME PRN metoprolol succinate ER 50 mg PO DAILY miscellaneous medical supply Wheelchair cushion for wheelchair, use as directed miscellaneous medical supply Raised toilet seat, use as directed ondansetron 4 mg PO Q6-8H PRN pantoprazole 40 mg PO DAILY@0630 pen needle, diabetic (BD Ultra-Fine Short Pen Needle) USE MARÍA LO INDICADO BENNETT VECES AL LIZZIE ANTES DE LAS COMIDAS polyethylene glycol 3350 17 grams PO DAILY [Raised toilet seat As directed] [recliner As directed] [Semi electric hospital bed Use As directed NS] sertraline 100 mg PO BEDTIME sertraline 75 mg PO BEDTIME spironolactone 25 mg PO DAILY [Standard Wheelchair with cushion and foot rest As directed] [Toilet rails As directed] [walker with wheels As directed] [Wheelchair cushion As directed] HPI Comments Details: Patient is a 58 year old male with DM type 2 here for follow up. Diagnosed approx 1994 Medical history: Diabetes type 2, hypertension, hyperlipidemia, coronary artery disease status post NSTEMI, status post PCI, chronic pancreatitis, BKA x2 He is here today with his daughter who since last visit has assumed his care Hemoglobin A1c 10.9% up from 10.5 from 9.2% 05/31/24 up from January 2024 6.8%. Endorses 100% medication compliance. Denies any dietary or lifestyle changes Current medications Diabetes medications: -Tresiba 40 -Lispro (supposed to be via cequr but daughter needs the cequr training). She is administering this on a sliding scare with a leftover short acting lispro pen they had -Farxiga 10 mg-need refill -previously on metformin which was stopped during episode of pancreatitis. will resume Micro and macrovascular complications: +retinopathy: Has upcoming appointment with retinal specialist in [place], , +neuropathy, +CAD, Juan frank: 1% TGT, 98% Last eye exam:05/2024 No nephropathy: On ARB Has neuropathy Symptoms reported: + numbness, tingling eschar to right stump Hypoglycemia: denies recent but has had in the past Hyperglycemia: denies urinary frequency, nocturia, polydypsia Diet; [place] with cream cheese and coffee, boiled egg, occasional Monday Lunch/supper: Small amount of rice, beans Occasional sweets Rail Operations Controller - CDE education: 04/2023 ROS CONSTITUTIONAL: Denies weight loss, fever and chills. HEENT: Denies changes in vision and hearing. RESPIRATORY: Denies SOB and cough. CV: Denies palpitations and CP GI: Denies abdominal pain, nausea, vomiting and diarrhea. : Denies dysuria and urinary frequency. MSK: Denies new myalgia and joint pain. SKIN: painful ulceration-eschr right aka NEUROLOGICAL: Denies headache PSYCHIATRIC: Denies recent changes in mood. PHYSICAL EXAM: GENERAL: Alert and oriented x 3. NAD EYES: EOMI. Anicteric. HENT: Moist mucous membranes. No scleral icterus. No cervical lymphadenopathy. LUNGS: Clear to auscultation bilaterally. CARDIOVASCULAR: Regular rate and rhythm. No murmur. No JVD. ABDOMEN: Soft, non-tender +bs EXTREMITIES: No edema. Non-tender. SKIN: No rashes or lesions. Warm. NEUROLOGIC: No focal neurological deficits. CN II-XII grossly intact PSYCHIATRIC: Cooperative. Appropriate mood and affect [facility] Medical History Hx of non-ST elevation myocardial infarction (NSTEMI) Major depression, recurrent Paroxysmal atrial fibrillation History of alcohol abuse Anemia Essential hypertension PAD (peripheral artery disease) 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 Diabetes mellitus with retinopathy, with long-term current use of insulin Heartburn symptom Erectile dysfunction Dyslipidemia Amputation stump complication Hyperlipidemia Chronic pancreatitis Neuropathy Kidney calculus CAD (coronary artery disease) Arthritis Surgical History Status post amputation of left foot through metatarsal bone History of open heart surgery S/P angiogram of extremity (06/28/23) History of right below knee amputation Status post below-knee amputation S/P debridement Hx of lithotripsy Status post laparoscopic cholecystectomy Hx of heart artery stent Family History Mother [place] (myocardial infarction), Onset Age: 64 Diabetes mellitus HTN (hypertension) Maternal Grandmother Diabetes mellitus Social History Household Members: Spouse Household Members Other:: and daughter Housing: Apartment Do you presently have visiting nurse or other home services: Yes Alcohol intake: former Comment: Bilateral BKA's. Patient Tobacco Use Status: Former Tobacco user Tobacco use type: Cigarette Cigarette Packs Per Day: 0.01 Cigarettes Per Day: 3 Years Smoked: 30 e-Cigarette/Vaping Use: Never Used Second Hand Smoke Exposure: No Substance Use Type: Marijuana Advance Directives Date on File: 04/17/21 service: No Current occupational status: unemployed and disabled Cognitive needs: No Hearing needs: No Vision needs: Yes Physical Exam Vital Signs: Last Vital Signs Pulse 76 02/19/25 14:16 BP 136/82 02/19/25 14:16 Pulse Ox 98 02/19/25 14:16 Oxygen Delivery Method Room Air 02/19/25 14:16 Results AMB Hemoglobin A1c AMB Hemoglobin A1c 10.9 % Last Edit by RASHIDA Shahid on 02/19/25 14:3 3 Results Reviewed Results Reviewed: Laboratory Last Values Glucose (Clinic) 225 mg/dL (60-115) H 02/19/25 14:22 Hgb A1c (Clinic) 10.9 % (4.0-6.0) H 02/19/25 14:27 Assessment & Plan Assessment & Plan (1) 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: Code(s): E11.42 - Type 2 diabetes mellitus with diabetic polyneuropathy; E11.65 - Type 2 diabetes mellitus with hyperglycemia Category: Medical (2) Diabetic pressure ulcer, stage 1: Code(s): E11.622 - Type 2 diabetes mellitus with other skin ulcer; L89.91 - Pressure ulcer of unspecified site, stage 1 Category: Medical Plan 59 yo poorly controlled diabetes daughter is now managing healthcare She seems to have a good grasp of treatment as a diabetic herself She will use lispro pen until cequr teaching. new sliding scale provided continue current dose tresiba restart metformin referral to wound for assessment of stump eschar Orders: Orders AMB Hemoglobin A1c Today E11.319 - Type 2 diabetes mellitus with unspecified diabetic retinopathy without macular edema, Z79.4 - exterminator (current) use of insulin Referrals Wound Care Referral E11.622 - Type 2 diabetes mellitus with other skin ulcer, L89.91 - Pressure ulcer of unspecified site, stage 1 Medications: New metformin ER 750 mg PO BID 180 tabs 3RF insulin lispro (Humalog KwikPen (U-100) Insulin) Take three times daily 15 minutes prior to meals For blood glucose <100 take 0 units 100-149 take 4 units 150-199 take 6 units 200-249 take 8 units 250-299 take 10 units 300-349 take 12 units >/= 350 take 14 units 1 sliding scale dose subcut USEASDIRECTD 30 mL 3RF Changed From insulin lispro 12-16 units with meals, 2-4 with snack for use with CeQur. Each click equals 2 units subcutaneously use as directed; 30 days 20 mL 4RF To insulin lispro 8-14 units with meals, 2-4 units with snack for use with CeQur. Take 10-14 units (5-7 clicks) with breakfast and lunch Take 8-10 units (4-5 clicks) with dinner 20 mL 4RF 30 days From insulin lispro 8-14 units with meals, 2-4 units with snack for use with CeQur. Take 10-14 units (5-7 clicks) with breakfast and lunch Take 8-10 units (4-5 clicks) with dinner 20 mL 4RF 30 days To insulin lispro Take three times daily 15 minutes prior to meals via cequr For blood glucose <100 take 0 units 100-149 take 4 units (2 click) 150-199 take 6 units (3 click) 200-249 take 8 units (4 click) 250-299 take 10 units (5 click) 300-349 take 12 units (6 click) >/= 350 take 14 units (7 click) 20 mL 4RF 30 days From pen needle, diabetic (BD Ultra-Fine Short Pen Needle) USE MARÍA LO INDICADO BENNETT VECES AL LIZZIE ANTES DE LAS COMIDAS 100 ea 1RF E11.9 - Type 2 diabetes mellitus without complications, Z79.4 - snf (current) use of insulin To pen needle, diabetic USE MARÍA LO INDICADO BENNETT VECES AL LIZZIE ANTES DE LAS COMIDAS 100 ea 1RF E11.9 - Type 2 diabetes mellitus without complications, Z79.4 - exterminator (current) use of insulin Refilled insulin degludec (Tresiba FlexTouch U-100 insulin) 40 units (0.4 mL) subcut BEDTIME 45 mL 3RF E11.42 - Type 2 diabetes mellitus with diabetic polyneuropathy, E11.65 - Type 2 diabetes mellitus with hyperglycemia Farxiga (dapagliflozin propanediol) 10 mg PO QAM 90 tabs 3RF NS Coding Diagnoses 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 E11.42; E11.65 Diabetic pressure ulcer, stage 1 E11.622; L89.91 Time Spent (min) 46
[2025-02-19 14:16] VITALS: BP 136/82; PULSE 76; O2SAT 98
[2025-02-19 14:27] LABS: Glucose, Whole Blood 225 mg/dL (60-115)
--- OUTSIDE RECORDS SUMMARY | 2025-02-19 16:40 | XMS_ITS | Clinical Summary ---
Author Organization [facility] Address [address] [place] [address] Care Team Providers Care Mechanical Adjuster Name Role Phone Unavailable Primary Care Provider [...] 2011 Imm-Zoster, Recombinant (1 of 2) 2016 [id number] ( season) 2024 021, 11/23/2020 Imm-Influenza (#1) 2024 07/09/2019, 0 04/30/2019, 07/27/2018, Additional history exists Alcohol and Drug Screen 08/28/2024 Depression Annual Screen 08/28/2024 Imm-DTaP/Tdap/Td (3 - Td or Tdap) 08/28/2030 , 07/27/2018 Insurance [employer]
== END 2025-02-19 14:55 | disposition home or self-care (01) ==
LOC: HO.ENCR 13:57
PROVIDERS: PCP Internal Medicine; Visit Provider Internal Medicine
DX: E11.319 Type 2 diabetes mellitus with unspecified diabetic retinopathy without macular edema (principal); Z79.4 Long term (current) use of insulin

== ENCOUNTER → 2025-02-19 13:56 | Outpatient (BNVA) | payer MEDICARE, SELFPAY | PROVIDERS: PCP Internal Medicine; Visit Provider Internal Medicine | DX: E11.42 Type 2 diabetes mellitus with diabetic polyneuropathy (principal); E11.65 Type 2 diabetes mellitus with hyperglycemia; E11.622 Type 2 diabetes mellitus with other skin ulcer; L89.91 Pressure ulcer of unspecified site, stage 1; Z79.4 Long term (current) use of insulin | CPT/HCPCS: 82947; 83036; 99212 ==

== ENCOUNTER 2025-03-14 12:03 | Outpatient (RCR) | payer MEDICARE, SELFPAY | END 2025-05-28 16:27 | disposition home or self-care (01) | LOC: HO.WCC 12:03 | PROVIDERS: PCP Internal Medicine; Visit Provider Surgery Surgical Oncology | DX: E11.622 Type 2 diabetes mellitus with other skin ulcer (principal); E11.51 Type 2 diabetes mellitus with diabetic peripheral angiopathy without gangrene; I70.241 Atherosclerosis of native arteries of left leg with ulceration of thigh; L97.128 Non-pressure chronic ulcer of left thigh with other specified severity; I70.238 Atherosclerosis of native arteries of right leg with ulceration of other part of lower leg; L97.818 Non-pressure chronic ulcer of other part of right lower leg with other specified severity; E11.319 Type 2 diabetes mellitus with unspecified diabetic retinopathy without macular edema; E11.65 Type 2 diabetes mellitus with hyperglycemia; T87.89 Other complications of amputation stump; E11.40 Type 2 diabetes mellitus with diabetic neuropathy, unspecified; I10 Essential (primary) hypertension; I25.2 Old myocardial infarction; Z87.891 Personal history of nicotine dependence; Z79.4 Long term (current) use of insulin; Z79.84 Long term (current) use of oral hypoglycemic drugs; Z89.511 Acquired absence of right leg below knee; Z89.512 Acquired absence of left leg below knee | CPT/HCPCS: 99212 ==

== ENCOUNTER 2025-04-15 12:05 | Outpatient (AMB) | payer MEDICARE, SELFPAY ==
--- NOTE | 2025-04-15 12:11 | MHC.PC.OV ---
Vital Signs 04/15/25 12:14 Height 5 ft 7 in Weight 225 lb BMI 35.2 BP 100/62 Blood Pressure Location Lt brachial Position Sitting Respiration 16 Pulse 81 Pulse Source Pulse Oximeter Temp 98.7 F Pulse Oximetry (%) 97 Oxygen Delivery Method Room Air Comment weight in with bilateral leg prosthetics Intake Visit Reasons: Annual PE - see comments Intake Note: Pt is here today for his PE: never had colonscopy Allergies No Known Allergies Allergy (Verified 04/15/25 12:41) Medication List - Last Reconciled 04/15/25 by Shanta Haney MD acetaminophen 650 mg (2 x 325 mg) PO TID aspirin 81 mg PO DAILY atorvastatin 80 mg PO BEDTIME [Bedside commode As directed] blood sugar diagnostic (FreeStyle Lite Strips) As directed blood-glucose meter (FreeStyle Lite Meter kit) As directed bolus insulin pump, 200 unit (CeQur Simplicity) As directed 4 day insulin patch clopidogrel 75 mg PO DAILY diabetic supplies, miscellan. (CeQur Simplicity News Assignment Editor) As directed for use with CeQur insulin patch [Disposable bed pads As directed] docusate sodium 100 mg PO BID PRN [electric recliner head and foot As directed] [facial-body wipes As directed] famotidine 40 mg PO DAILY PRN Farxiga (dapagliflozin propanediol) 10 mg PO QAM NS flash glucose scanning reader (FreeStyle Frank 2 Cotter) As directed flash glucose sensor (FreeStyle Frank 2 Sensor kit) DIRECTED CHANGE EVERY 14 DAYS gabapentin 600 mg PO TID [Hospital bed As directed] insulin degludec (Tresiba FlexTouch U-100 insulin) 40 units (0.4 mL) subcut BEDTIME insulin lispro Take three times daily 15 minutes prior to meals via cequr For blood glucose <100 take 0 units 100-149 take 4 units (2 click) 150-199 take 6 units (3 click) 200-249 take 8 units (4 click) 250-299 take 10 units (5 click) 300-349 take 12 units (6 click) >/= 350 take 14 units (7 click) 30 days [liners for incontinence Use As directed] [Male day & night urinal As directed] melatonin 6 mg (2 x 3 mg) PO BEDTIME PRN metformin ER 750 mg PO BID metoprolol succinate ER 50 mg PO DAILY miscellaneous medical supply Wheelchair cushion for wheelchair, use as directed miscellaneous medical supply Raised toilet seat, use as directed ondansetron 4 mg PO Q6-8H PRN pen needle, diabetic USE MARÍA LO INDICADO BENNETT VECES AL LIZZIE ANTES DE LAS COMIDAS [Raised toilet seat As directed] [recliner As directed] sacubitril-valsartan 49-51 mg (Entresto) 1 tab PO BID [Semi electric hospital bed Use As directed NS] sertraline 100 mg PO BEDTIME spironolactone 25 mg PO DAILY [Standard Wheelchair with cushion and foot rest As directed] [Toilet rails As directed] [walker with wheels As directed] [Wheelchair cushion As directed] Tobacco use date assessed: 04/15/25 Dental Screening Dental Screen Date: 04/15/25 Did you have a dental visit in the last 12 months?: No Did you have a dental problem in the last 6 months where you did not have access to dental care?: No Was dental information given to patient?: Patient declined HPI Annual PE - see comments HPI Details - The patient is a 59-year-old male presenting for physical exam - Hypertension: Blood pressure was noted to be on the low side at 100/62 mmHg, likely due to a recent increasing dose of Entresto given for treatment of congestive heart failure. - Diabetes mellitus: [place] [facility] [place] restarted back on metformin, Farxiga, continued on Tresiba, and dosage change of Lispro, with a hemoglobin A1c of 10.9% noted last January 2025. Has been having problems with his done, with irritation, was referred to Wound Clinic - Diabetic retinopathy: The patient has undergone treatment in [place] for treatment of retinopathy - Hyperlipidemia: The patient is on atorvastatin for cholesterol management. - Gastroesophageal reflux disease: The patient takes famotidine as needed and does not have a current prescription for pantoprazole. - History of kidney stones: The patient had a previous operation for kidney stones and continues to follow up with a urologist. - Obstructive sleep apnea: The patient reports previous issues with sleep apnea when his weight was higher, but currently denies symptoms. - Preventative care: Colon cancer screening was discussed, declined colonoscopy, advised to use Cologuard for screening. PFSH Medical History (Updated 04/15/25 @ 13:03 by Shanta Haney MD) Depression, major, in remission Hx of non-ST elevation myocardial infarction (NSTEMI) Major depression, recurrent Paroxysmal atrial fibrillation History of alcohol abuse Anemia Essential hypertension PAD (peripheral artery disease) 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 Diabetes mellitus with retinopathy, with long-term current use of insulin Heartburn symptom Erectile dysfunction Dyslipidemia Amputation stump complication Hyperlipidemia Chronic pancreatitis Neuropathy Kidney calculus CAD (coronary artery disease) Arthritis Surgical History Status post amputation of left foot through metatarsal bone History of open heart surgery S/P angiogram of extremity (06/28/23) History of right below knee amputation Status post below-knee amputation S/P debridement Hx of lithotripsy Status post laparoscopic cholecystectomy Hx of heart artery stent Family History Mother MS (myocardial infarction), Onset Age: 64 Diabetes mellitus HTN (hypertension) Maternal Grandmother Diabetes mellitus Social History Household Members: Spouse Household Members Other:: and daughter Housing: Apartment Do you presently have visiting nurse or other home services: Yes Alcohol intake: former Comment: Bilateral BKA's. Patient Tobacco Use Status: Former Tobacco user Tobacco use type: Cigarette Cigarette Packs Per Day: 0.01 Cigarettes Per Day: 3 Years Smoked: 30 e-Cigarette/Vaping Use: Never Used Second Hand Smoke Exposure: No Substance Use Type: Marijuana Advance Directives Date on File: 04/17/21 service: No Current occupational status: unemployed and disabled Cognitive needs: No Hearing needs: No Vision needs: Yes Questionnaire PHQ-9 Over the last 2 weeks, how often have you been bothered by any of the following problems? 1. Little interest or pleasure in doing things: not at all 2. Feeling down, depressed, or hopeless: not at all 3. Trouble falling or staying asleep, or sleeping too much: not at all 4. Feeling tired or having little energy: not at all 5. Poor appetite or overeating: not at all 6. Feeling bad about yourself - or that you are a failure or have let yourself or your family down: not at all 7. Trouble concentrating on things, such as reading the newspaper or watching television: not at all 8. Moving or speaking so slowly that other people could have noticed. Or the opposite - being so fidgety or restless that you have been moving around a lot more than usual: not at all 9. Thoughts that you would be better off or of hurting yourself in some way: not at all Total score: 0 Depression Screening Interpretation: Negative Depression Screening Done: Yes 71481 - PHQ-9 Billing: Yes Source: Developed by Drs. William Burton, Jayla Donnelly, Joesph Fay and colleagues, with an educational miriam from [employer]. Thrive Questionnaire Date Thrive assessed: 04/08/25 I am a: Patient What is your living situation today?: I do not have a steady places to live I am temporarily staying with others Within the past 12 months, did the food you bought not last and you didn't have the money to get more?: Sometimes True Within the past 12 months, did you worry whether your food would run out before you got money to buy more?: Sometimes True Do you have trouble paying for medicines?: I choose not to answer this question Do you have trouble getting transportation to medical appointments?: No Do you have trouble paying your heating and electricity bill?: Yes Do you have trouble taking care of your child, family member or friend?: I choose not to answer this question Do you have trouble with day-to-day activities such as bathing, preparing meals, shopping, managing finances, etc.?: No Are you currently unemployed and looking for a job?: No Are you interested in more education?: Yes Please select the resources that you would like help with: Housing/Fci and Food Currently or been in a relationship where the following occur: No concerns reported THRIVE Score: 4 AUDIT C Alcohol Use Questionnaire (AUDIT-C) 1. How often do you have a drink containing alcohol?: Never 3. How often do you have six or more drinks on one occasion?: Never Total Score: 0 Score Reviewed/Action Taken: Yes NASRIN-7 AMB Questionnaire NASRIN-7 Date NASRIN - 7 assessed: 04/15/25 Feeling nervous, anxious, or on edge: 0 = Not at all Not being able to stop or control worryin = Not at all Worrying too much about different things: 1 = Several days Trouble relaxin = Not at all Being so restless that it is hard to sit still: 0 = Not at all Becoming easily annoyed or irritable: 0 = Not at all Feeling afraid as if something awful might happen: 0 = Not at all Total NASRIN-7 score (0-4 normal; 5-9 mild; 10-14 moderate; 15-21 severe): 1 Source: Developed by Drs. William Burton, Jayla Donnelly, Joesph Fay and colleagues, with an educational miriam from [employer]. NASRIN-7 Assessment Billing NASRIN-7 Assessment Tool: NASRIN-7 Assessment 88030 Review of Systems Const Denies fever(s), Denies malaise and Denies weakness Eyes Details: goes to [facility] for treatment of diabetic retinopathy ENT Details: Has dentures Reports Normal hearing present Card Denies chest pain and Denies dyspnea Resp Denies cough and Denies dyspnea GI Denies abdominal pain and Reports heartburn (Currently on pantoprazole) Denies difficulty urinating, Denies penile discharge and Reports urinary frequency Musc Denies muscle cramps and Denies muscle weakness Skin/Breast Details: Complaining of irritation on BKA stump Neuro Reports Normal hearing present and Denies weakness Psych Reports no additional complaints Endo Reports polyuria Chester/Lymph Denies easy bleeding and Denies easy bruising Aller/Immun Reports no additional complaints Physical exam (Primary Care) Vital Signs: Last Vital Signs Temp 98.7 F 04/15/25 12:14 Pulse 81 04/15/25 12:14 Resp 16 04/15/25 12:14 BP 100/62 04/15/25 12:14 Pulse Ox 97 04/15/25 12:14 Oxygen Delivery Method Room Air 04/15/25 12:14 BMI result Body Mass Index 35.2 Tobacco/Smoking Status: Tobacco use Status Tobacco use date assessed 04/15/25 04/15/25 12:25 Patient Tobacco Use Status Former Tobacco user 04/15/25 12:12 Tobacco use type Cigarette 04/15/25 12:12 e-Cigarette/Vaping Use Never Used 04/15/25 12:12 PHQ-9: PHQ-9 Score PHQ-9: Total score 0 04/15/25 12:51 Depression Screening Interpretation: Negative Thrive Assessment: Date of Thrive Assessment Date Thrive assessed 04/08/25 04/15/25 12:12 Currently or been in a relationship where the following occur: No concerns reported Date of discussion: 04/15/25 Who was present: patient and daughter Forms completed: Health Care Proxy Time spent: 16-45 minutes Actual minutes spent: 2 Const General: cooperative, comfortable and no acute distress Orientation/consciousness: patient oriented x3 HENMT Mouth: Normal oral and palatal mucosa present, tongue normal and moist mucous membranes Eyes General: appearance normal, both eyes and all related structures Neck Other: Supple, full range of motion, no lymphadenopathy, thyroid gland nonpalpable Chest Chest palpation & inspection: normal inspection of the chest Resp Effort & Inspection: normal respiratory effort and able to speak in complete sentences Auscultation: clear to auscultation bilaterally Cardio Other: S1-S2 present regular rate and rhythm GI Other: Normal bowel sounds, soft, nontender, no mass palpated General: Yes no CVA tenderness Back/Spine/Pelvis Back: no CVA tenderness and No back tenderness Skin Other: Slightly raised scaly on right BKA stump Neuro General: patient oriented x3 Cranial nerves: Yes Normal hearing present Cognition (Neuro): normal cognition Extrem Other: bilateral BKA Psych Appearance: grossly normal and well kempt Mental Status: mental status grossly normal Speech and movement: Normal speech and movement present Affect: normal affect Coding Level of Care Code Est Pt Prev Care 40-64y(78639) Diagnoses Annual visit for general adult medical examination with abnormal findings Z00.01 Essential hypertension I10 Pure hypercholesterolemia E78.00 Hyperlipidemia type: pure hypercholesterolemia PAD (peripheral artery disease) I73.9 Diabetes mellitus with retinopathy, with long-term current use of insulin E11.319; Z79.4 Below-knee amputation of left lower extremity S88.112A Paroxysmal atrial fibrillation I48.0 Depression, major, in remission F32.5 Advance directive discussed with patient Z71.89 Additional Codes NASRIN-7 Assessment Billing - NASRIN-7 Assessment Tool: NASRIN-7 Assessment 52866 ([id number]) PHQ-9 - 94425 - PHQ-9 Billing: Yes ([id number]) Vital Signs *Quality* - Time spent: 16-45 minutes ([id number]) Assessment & Plan Assessment & Plan (1) Annual visit for general adult medical examination with abnormal findings: Code(s): Z00.01 - Encounter for general adult medical examination with abnormal findings (2) Essential hypertension: Code(s): I10 - Essential (primary) hypertension Category: Medical (3) Hyperlipidemia: Code(s): E78.5 - Hyperlipidemia, unspecified Category: Medical Qualifiers: Hyperlipidemia type: pure hypercholesterolemia Qualified Code(s): E78.00 - Pure hypercholesterolemia, unspecified (4) PAD (peripheral artery disease): Comment: 04/14/2021 - atherectomy and plasty of left SFA and popliteal artery, angioplasty of left anterior tibial posterior tibial and peroneal arteries 08/31/2021 - right BKA 11/29/2021 - revision right BKA 06/28/2023 - left anterior tibial plasty and perennial plasty and popliteal plasty 10/24/2023 - left great and 5th toe amputation 11/27/2023 - left transmetatarsal amputation 12/18/2023 - left BKA Code(s): I73.9 - Peripheral vascular disease, unspecified Category: Medical (5) Diabetes mellitus with retinopathy, with long-term current use of insulin: Code(s): E11.319 - Type 2 diabetes mellitus with unspecified diabetic retinopathy without macular edema; Z79.4 - long term acute care registered nurse (current) use of insulin Category: Medical (6) Below-knee amputation of left lower extremity: Code(s): S88.112A - Complete traumatic amputation at level between knee and ankle, left lower leg, initial encounter Category: Medical (7) Paroxysmal atrial fibrillation: Code(s): I48.0 - Paroxysmal atrial fibrillation Category: Medical (8) Depression, major, in remission: Code(s): F32.5 - Major depressive disorder, single episode, in full remission Category: Medical (9) Advance directive discussed with patient: Code(s): Z71.89 - Other specified counseling Plan: Initiated the conversation about Advanced Directives. Advanced Directives help patients prepare for current and future decisions about their medical treatment and place of care. Discussed with patient that it is a process where a patients current condition and prognosis are reviewed, their wishes for information regarding their illness are elicited, and likely medical dilemmas are presented and options discussed. Healthcare proxy form completed today The form can be amended as needed, reviewed yearly and make changes as needed Plan The patient will continue with the current regimen for hypertension and heart failure, with close monitoring of blood pressure due to recent medication adjustments. The patient is advised to continue taking Entresto, metoprolol succinate and spironolactone, and to report any symptoms such as dizziness or lightheadedness. For diabetes management, he is currently on with [place] [facility] [place] and started back on metformin, continued on Farxiga, Tresiba, and Lispro. Regular monitoring of blood glucose levels is recommended, currently being seen and treated at [facility] diabetic retinopathy. Has been referred by his market garden worker to be wound care clinic for management of eschar on stump. The patient is advised to continue using atorvastatin for hyperlipidemia management. For gastroesophageal reflux disease, the patient should use famotidine as needed and avoid pantoprazole unless prescribed. Preventative care measures include completing the colon cancer screening with Cologuard and ensuring vaccinations are up to date. The patient should verify the status of the shingles vaccine and receive the annual flu shot. Patient was informed and verbally consented to the use of an ambient scribe for clinic note documentation during this visit. Orders: Orders Alanine Aminotransferase 04/15/25 F33.1 - Major depressive disorder, recurrent, moderate, I10 - Essential (primary) hypertension, I48.0 - Paroxysmal atrial fibrillation, I73.9 - Peripheral vascular disease, unspecified, E78.00 - Pure hypercholesterolemia, unspecified, E11.319 - Type 2 diabetes mellitus with unspecified diabetic retinopathy without macular edema, Z79.4 - long term acute care registered nurse (current) use of insulin, S88.112A - Complete traumatic amputation at level between knee and ankle, left lower leg, initial encounter Aspartate Amino Transferase 04/15/25 F33.1 - Major depressive disorder, recurrent, moderate, I10 - Essential (primary) hypertension, I48.0 - Paroxysmal atrial fibrillation, I73.9 - Peripheral vascular disease, unspecified, E78.00 - Pure hypercholesterolemia, unspecified, E11.319 - Type 2 diabetes mellitus with unspecified diabetic retinopathy without macular edema, Z79.4 - long term acute care registered nurse (current) use of insulin, S88.112A - Complete traumatic amputation at level between knee and ankle, left lower leg, initial encounter Basic Metabolic Panel Fasting 04/15/25 F33.1 - Major depressive disorder, recurrent, moderate, I10 - Essential (primary) hypertension, I48.0 - Paroxysmal atrial fibrillation, I73.9 - Peripheral vascular disease, unspecified, E78.00 - Pure hypercholesterolemia, unspecified, E11.319 - Type 2 diabetes mellitus with unspecified diabetic retinopathy without macular edema, Z79.4 - long term acute care registered nurse (current) use of insulin, S88.112A - Complete traumatic amputation at level between knee and ankle, left lower leg, initial encounter PSA,Total (Free>4and<10) 04/15/25 F33.1 - Major depressive disorder, recurrent, moderate, I10 - Essential (primary) hypertension, I48.0 - Paroxysmal atrial fibrillation, I73.9 - Peripheral vascular disease, unspecified, E78.00 - Pure hypercholesterolemia, unspecified, E11.319 - Type 2 diabetes mellitus with unspecified diabetic retinopathy without macular edema, Z79.4 - long term acute care registered nurse (current) use of insulin, S88.112A - Complete traumatic amputation at level between knee and ankle, left lower leg, initial encounter Vitamin D 25-OH Total 04/15/25 F33.1 - Major depressive disorder, recurrent, moderate, I10 - Essential (primary) hypertension, I48.0 - Paroxysmal atrial fibrillation, I73.9 - Peripheral vascular disease, unspecified, E78.00 - Pure hypercholesterolemia, unspecified, E11.319 - Type 2 diabetes mellitus with unspecified diabetic retinopathy without macular edema, Z79.4 - long term acute care registered nurse (current) use of insulin, S88.112A - Complete traumatic amputation at level between knee and ankle, left lower leg, initial encounter Lipid Panel 04/15/25 F33.1 - Major depressive disorder, recurrent, moderate, I10 - Essential (primary) hypertension, I48.0 - Paroxysmal atrial fibrillation, I73.9 - Peripheral vascular disease, unspecified, E78.00 - Pure hypercholesterolemia, unspecified, E11.319 - Type 2 diabetes mellitus with unspecified diabetic retinopathy without macular edema, Z79.4 - [facility] (current) use of insulin, S88.112A - Complete traumatic amputation at level between knee and ankle, left lower leg, initial encounter Medications: Refilled sertraline 100 mg PO BEDTIME 90 tabs 4RF
[2025-04-15 12:14] VITALS: BP 100/62; PULSE 81; RESP 16; TEMP 37.1; O2SAT 97; BMI 35.2
--- OUTSIDE RECORDS SUMMARY | 2025-04-15 13:29 | XMS_ITS | Encounter Summary ---
Author Organization [facility] Address [address] [place] [id number] Phone Care Team Providers Care Information Security Director Name Role Phone Shanta Haney MD Primary Care Provider Encounter Details Date Type Department Care Team ([facility] st Contact Info) Description 12/18/2024 Procedure Pass [facility] [address] [place] [address] Social History Tobacco Use Types Packs/Day Years Used Date Smoking Tobacco: Never Smokeless Tobacco: Never Comments:I quit a year ago Alcohol Use Standard Drinks/Week Comments Yes 0 (1 standard drink = 0.6 oz pur e alcohol) 1x / mo Education Answer Date Recorded Are you interested in more education? Not on belia e 06/19/2024 Are you concerned about learning? Not on file 06/19/2024 No 06/19/2024 No 06/19/2024 Digital Access Answer Date Recorded No 06/19/2024 No 06/19/2024 Reliable internet access at home? Not on file 06/19/2024 Device with a working camera? Not on file Intimate Partner Violence Answer Date R ecorded Are you denied basic needs s uch as food, clothing, or medical care? No 12/18/2024 In the past 12 months have y ou been in a relationship with a person who hurts, threatens, or tries to control you? No 12/18/2024 Are you denied basic needs s uch as food, clothing, or medical care? No 12/18/2024 In the past 12 months have y ou been in a relationship with a person who hurts, threatens, or tries to control you? No 12/18/2024 Sex and Gender Information Value Date Recorded Sex Assigned at Male 06/27/2024 4:36 PM EDT Legal Sex Male 2:24 PM EDT Gender Identity Male 06/27/2024 4:36 PM EDT Sexual Orientation Straight 06/27/2024 4: 36 PM EDT documented as of this encounter Plan of Treatment Upcoming Encounters Date Type Department Care Team (Late st Contact Info) Description 05/16/2025 9:00 AM EDT Appointment [facility] [address] [place] [address] 05/16/2025 9:20 AM EDT Office Visit [facility] [address] [place] [address] Lenin Howard MD [address] [place] [phone] [email or web address] documented as of this encounter Visit Diagnoses Not on filedocumented in this encounter Care Teams Information Security Director Relationship Specialty Start Date End Date Shanta Haney MD [address] [place] [address] PCP - General Internal Medicine 06/19/24 documented as of this encounter Additional Source Comments The information contained in this document represents components of the legal health record. It is not the complete legal health record.[facility]
--- OUTSIDE RECORDS SUMMARY | 2025-04-15 13:29 | XMS_ITS | Clinical Summary ---
Author Organization [facility] Address [address] [place] [address] Care Team Providers Care Modeler Name Role Phone Unavailable Primary Care Provider [...] 2011 Imm-Zoster, Recombinant (1 of 2) 2016 Imm-Pneumococcal 50+ (2 of 2 - PCV) 04/30/2020 04/30/2019 [id number] (3 - season) 2024 021, 11/23/2020 Alcohol and Drug Screen 08/28/2024 Depression Annual Screen 08/28/2024 Imm-Influenza (#1) 2025 07/09/2019, 0 04/30/2019, 07/27/2018, Additional history exists Imm-DTaP/Tdap/Td (3 - Td or Tdap) 08/28/2030 021, 07/27/2018 Insurance Interview Master
--- OUTSIDE RECORDS SUMMARY | 2025-04-15 13:29 | XMS_ITS | Clinical Summary ---
[facility] [address] [place] [address] Care Team Providers Care Wool Hat Flanger Name Role Phone Jannette Mcclain MD Primary Care Provider [phone] Medical History Medical History Date Comments Type [...] Vaccine ( - 2023-2 5 season) 2024 Depression Screening 08/28/2024 Influenza Vaccine (#1) 2025 10/12/2013 HIB Vaccines Aged Out No longer [...] age to complete this topic Meningococcal B Vaccine Aged Out No l onger eligible based on patient's age to complete this topic RSV Immunization Patients Un kendrick 20 months Aged Out No longer eligible b ased on patient's age to complete this topic Varicella Vaccines Aged Out No longer eligible based on patient's age to complete this topic Care Teams Wool Hat Flanger Relationship Specialty Start Date End Date Jannette Mcclain MD [address] [facility] [address] [place], [place] PCP - General Internal Medicine 03/29/21
--- OUTSIDE RECORDS SUMMARY | 2025-04-15 13:29 | XMS_ITS | Patient Health Record ---
[facility] Address [address] [facility] [place] [address] Care Team Providers Care Wound Treatment Rn Name Role Phone Medina CALDWELL, Shanta Mosher Primary Care Provider Un available Talib Aguilar Unavailable [phone] Allergies No Known Allergies Reason For Referral No Information Medications Medication SIG (Take, Route, Frequency, Duration) Notes Start Date End Date Status Brilinta Active metFORMIN HCl 500 MG 1 tablet with a sri l Orally Once a day; Duration: 30 day(s) Active Lisinopril 10 MG 1 tablet Orally Once a day; Duration: 30 day(s) Active HumaLOG Active Gabapentin 400 MG Oral; Duration: 30 Active Metoprolol & Diet Manage Prod Active metFORMIN HCl Active Gabapentin 800 MG 1 tablet Orally Once a day; Duration: 30 day(s) Active Lantus Active Lantus 100 UNIT/ML as directed Subcutaneous Active HumaLOG 100 UNIT/ML as directed Subcutaneous Active Omeprazole 40 MG Oral; Duration: 30 Active Work Note . . . patient is disab led from work until further notice Active Aspirin 81 MG 1 tablet Orally Once a day; Duration: 30 day(s) Active Insulin Active Brilinta 90 MG 1 tablet Orally Twic e a day; Duration: 30 day(s) Active Immunizations Vaccine Route Administration Date Status Comme nts Influenza Unknown 01/04/2021 Administered COVID-19 Moderna Vaccine Unknown 12/31/2020 Administere d 11/23/20 1# Social History Tobacco Use: Social History Observation [...] Active confirmed Problem Chronic ulcer of foot (269498264) Non-pressure chronic ulcer of other part of left foot with fat layer exposed (L97.522) Active confirmed Problem Non-pressure chronic ulcer of other part of left foot limited to breakdown of skin (L97.521) Active confirmed Problem Non-pressure chronic ulcer of other part of right foot limited to breakdown of skin (L97.511) Active confirmed Problem Polyneuropathy due to diabetes mellitus type I (911925686) Type 1 diabetes mellitus with diabetic polyneuropathy (E10.42) Active confirmed Plan Of Treatment Pending Test Test Name Order Date X ray : Foot, left 3V 01/20/2021 X ray : Foot, right 3V 01/20/2021 [id number] Debride <25 sq cm 01/04/2021 [id number] SKIN/TISSUE 01/04/2021 [id number] SKIN/TISSUE 01/20/2021 [id number] SKIN LESIONS, OVER 4 01/05/20 21 Insurance Providers Payer Name Payer Address Payer Phone Subscriber Number Group Number Insured Name Patient Relationship to Insured Coverage Start Date Coverage End Date [facility] [address] [place] [address] [id number] Pierre Dukes Self - patient is the insured Medical (General) History Medical History History ICD Code Arthritis Diabetic Heart disease High blood pressure Surgical History Surgery Date(Month/Year) Heart stent gall bladder Hospitalization History Reason Date(Month/Year) [facility] /acute pancreatitis 2020
== END 2025-04-15 14:33 | disposition home or self-care (01) ==
LOC: HO.HMCC 12:06
PROVIDERS: PCP Internal Medicine; Visit Provider Internal Medicine
DX: Z00.01 Encounter for general adult medical examination with abnormal findings (principal); E11.319 Type 2 diabetes mellitus with unspecified diabetic retinopathy without macular edema; Z79.4 Long term (current) use of insulin; I48.0 Paroxysmal atrial fibrillation; S88.112A Complete traumatic amputation at level between knee and ankle, left lower leg, initial encounter; I10 Essential (primary) hypertension; E78.00 Pure hypercholesterolemia, unspecified; I73.9 Peripheral vascular disease, unspecified; F32.5 Major depressive disorder, single episode, in full remission; Z71.89 Other specified counseling

== ENCOUNTER → 2025-04-15 12:05 | Outpatient (BNVA) | payer MEDICARE, SELFPAY | PROVIDERS: PCP Internal Medicine; Visit Provider Internal Medicine | DX: Z00.01 Encounter for general adult medical examination with abnormal findings (principal); E78.00 Pure hypercholesterolemia, unspecified; I10 Essential (primary) hypertension; I73.9 Peripheral vascular disease, unspecified; E11.319 Type 2 diabetes mellitus with unspecified diabetic retinopathy without macular edema; I48.0 Paroxysmal atrial fibrillation; F32.5 Major depressive disorder, single episode, in full remission; S88.112D Complete traumatic amputation at level between knee and ankle, left lower leg, subsequent encounter; Z71.89 Other specified counseling; Z79.4 Long term (current) use of insulin | CPT/HCPCS: 96127; 99396 ==